=== PATIENT | female | born 1935 | race Caucasian/White ===

== ENCOUNTER 2016-10-17 13:31 | Inpatient (IN) | payer OTHER, BC ==
[~2016-10-17] VITALS: Ht 154.9 cm; Wt 64.8 kg
[~2016-10-17 13:31] MED LIST: ADVIN25/60 INH; ALBU0.08 INH; ASCO1CAP3 PO; BISA-16; BISA-16 PO; CALC500C3 PO; CALC500C70 PO; CHOL2000 PO; CHOLTAB11 PO; CRAN1CAP6 PO; CYAN500T PO; DEXT30TA7 PO; DEXTSYP41 PO; DOCU-94 PO; FERRTAB18 PO; FRS/40 PO; FURO20TA PO; HYDR-5688 PO; IRON20IN; LCTX PO; LORA0.5T12 PO; MAGN400T5 PO; MAGN400T6 PO; METH118C PO; MULTTAB58 PO; ONDA4TAB4 PO; POTA1CAP2 PO; PRAM0.129 PO; PRED-301 PO; PRLSR20 PO; PRX/40 PO; PYRI100T4 PO; RANI300C PO; SNK PO; TPRSR/25 PO; WARF2TAB8 PO
[2016-10-17] MEDS ORDERED: ALBINS/ INH (14:43)
[2016-10-17] MEDS ORDERED: ONDA4TAB46 PO (14:43)
[2016-10-17] MEDS ORDERED: RBTDMUDL5 PO (14:43)
[2016-10-17] MEDS ORDERED: ALBUT/IPRATROP 3MG/0.5MG NEB 3 ML VIAL INH STA ×2 (14:50→16:33)
[2016-10-17 15:25] LABS: BASO % 0.6 %; BASO ABS # 0.06 K/uL (0-0.2); COMPLETE YES; EOS % 1.5 %; IG% 0.6 %; LYMPH % 15.5 %; LYMPH ABS # 1.67 K/uL (1.2-3.4); MEAN CORPUSCULAR HEMOGLOBIN 31.6 pg (25-34); MEAN CORPUSCULAR HGB CONC 32.6 g/dl (32-36); MONO % 12.2 %; NEUT % 69.6 %; PLATELET COUNT 260 K/uL (130-400); RED BLOOD COUNT 4.02 M/uL (4.2-5.4)
[2016-10-17 15:38] LABS: INR 1.8 (0.9-1.1); PARTIAL THROMBOPLASTIN RATIO 1.4; PROTHROMBIN TIME (PATIENT) 19.3 SECONDS (9.0-12.0)
[2016-10-17 15:42] LABS: BUN/CREATININE RATIO 15.9 (10-20); CALCIUM 9.2 mg/dl (8.5-10.1); CREATININE 1.6 mg/dl (0.60-1.20); POTASSIUM 3.6 mmol/L (3.5-5.1)
[2016-10-17] MEDS ORDERED: SODIUM CHLORIDE 0.9% 500ML 500 ML IV STA (15:59)
--- NOTE | 2016-10-17 16:15 | DIAGNOSTIC IMAGING REPORT ---
CHEST 2 VIEWS ROUTINE HISTORY: Cough. COMPARISON: Chest 01/14/2016. FINDINGS: No pneumothorax. No pleural effusions. Large hiatus hernia. The heart is stable in size. Metallic stent within the heart. Healing/healed bilateral rib fractures. No evidence for pulmonary edema. Mild interstitial thickening which is likely chronic. Bibasilar linear densities favor subsegmental atelectasis. Thoracic and lumbar spine compression deformities remain unchanged. These are likely old. IMPRESSION: 1. No new focal lung consolidations to suggest pneumonia. 2. Bibasilar linear densities favor subsegmental atelectasis. 3. Large hiatus hernia, unchanged. Electronically signed by: Nirav Varma M.D. 10/17/2016 4:13 PM Dictated Date/Time: 10/17/2016 4:10 PM
[2016-10-17] MEDS ORDERED: METHYLPREDNISOLONE 125 MG VIAL IV STA (16:33)
[2016-10-17] MEDS ORDERED: OXYC-57 PO (18:18)
[2016-10-17] MEDS ORDERED: MIRT15TA PO (18:18)
[2016-10-17] MEDS ORDERED: HYDR200T5 PO (18:18)
[2016-10-17] MEDS ORDERED: ASPEC81 PO (18:18)
[2016-10-17 19:10] VITALS: BP 122/76; PULSE 81; TEMP 36.7; O2SAT 92; Ht 154.9 cm; Wt 64.8 kg
[2016-10-17] MEDS: SODIUM CHLORIDE 0.9% 1000ML 1,000 ML IV SCH (19:20)
[2016-10-17 20:34] VITALS: PULSE 83; O2SAT 92
[2016-10-17] MEDS: ALBUT/IPRATROP 3MG/0.5MG NEB 3 ML VIAL INH SCH (20:34)
[2016-10-17] MEDS ORDERED: WARFARIN SOD 3 MG TAB PO ONE (20:45)
--- NOTE | 2016-10-17 20:57 | History and Physical ---
History & Physical Date & Time of Service: Oct 17, 2016 at 20:41 Chief Complaint: Cough, Shortness of Breath Primary Care Physician: Myrna Inman M.D. History of Present Illness 81 year old female who presents to the ER with cough and shortness of breath. Patient reports she started getting sick about one week ago. She was seen by her PCP who ordered Augmentin. Patient did not start the Augmentin until yesterday however was taking amoxicillin in the mean time. Patient did not have any improvement in her symptoms and spoke with her PCP yesterday who ordered a steroid taper however patient never picked it up from the pharmacy. Patient reports a worsening productive cough. She reports she swallows the mucous. She has had worsening shortness of breath on exertion. She has been using her nebulizer without improvement in symptoms. She also notes rhinorrhea. She reports a low grade fever of 99. She denies chest pain. No lightheadedness, dizziness, diaphoresis, or syncope. She denies abdominal pain, nausea, vomiting , or diarrhea. No urinary symptoms. In the ER, patient's CXR is clear. She is saturating well on room air. She was given IV solumedrol and neb treatment and continues to have wheezing. Past Medical/Surgical History Medical Problems: (1) Anemia Status: Chronic (2) Angiectasia Permanent Comment: on colonoscopy 05/2013 Status: Chronic (3) Aortic stenosis Permanent Comment: moderately severe by echo December 2013 Status: Chronic (4) Basal cell carcinoma Permanent Comment: s/p MOHS surgery Status: Resolved (5) Benign hypertension Status: Chronic (6) CAD (coronary artery disease) Permanent Comment: s/p RCA stent 2011 Status: Chronic (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 Status: Chronic (8) CKD (chronic kidney disease) stage 3, GFR 30-59 ml/min Status: Chronic (9) Depression Status: Chronic (10) Diverticulosis Colon (W/O Ment Of Hemorrhage) Status: Chronic (11) Dyslipidemia Status: Chronic (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, 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 Status: Chronic (13) Gastroparesis Status: Chronic (14) GERD (gastroesophageal reflux disease) Status: Chronic (15) Hiatal hernia Status: Chronic (16) History of acute minda lesion Permanent Comment: 06/2013 Status: Chronic (17) History of endometrial cancer Permanent Comment: s/p radiation and total hysterectomy Status: Chronic (18) History of GI bleed Status: Chronic (19) History of pulmonary embolism Permanent Comment: x 2 Status: Chronic (20) IBS (irritable bowel syndrome) Status: Chronic (21) Osteoporosis Status: Chronic (22) Polyarthritis Permanent Comment: on chronic prednisone Status: Chronic (23) Recurrent UTI Status: Chronic Surgical Problems: (1) Hx of cystoscopy Status: Chronic (2) S/P left knee arthroscopy Status: Chronic (3) S/P TAVR (transcatheter aortic valve replacement) Permanent Comment: due to severe aortic stenosis Status: Chronic (4) Status post cataract extraction Status: Chronic (5) Status post coronary artery stent placement Status: Chronic (6) Status post hysterectomy Status: Chronic Family History Cancer Diabetes mellitus FH: cardiovascular disease MOTHER Gallbladder disease Hypertension Social History Smoking Status: Never Smoker Alcohol Use: none Immunizations History of Influenza Vaccine: Yes Influenza Vaccine Date: Apr 18, 2016 History of Tetanus Vaccine?: Yes Tetanus Immunization Date: Nov 27, 2008 History of Pneumococcal: Yes Pneumococcal Date: Apr 21, 2016 History of Hepatitis B Vaccine: Yes Multi-Drug Resistant Organisms History of MDRO: No Allergies Coded Allergies: Cefdinir (Unverified Allergy, Unknown, RASH, 07/16/16) Levofloxacin (Verified Allergy, Unknown, unknown, 10/17/16) Metoclopramide (Verified Adverse Reaction, Intermediate, TREMORS, 10/17/16) Home Medications Scheduled Ascorbic Acid (Vitamin C), 500 MG PO DAILY Aspirin (Aspirin EC Low Dose), 81 MG PO DAILY Bisacodyl (Dulcolax), 2 TAB PO DAILY Calcium/Vitamin D (Os-Ismael 500 Plus D), 1 TAB PO BIDM Cholecalciferol (Vitamin D3), 1 CAP PO DAILY Cranberry (Vaccinium Macrocarp (Cranberry), 200 MG PO DAILY Docusate Sodium (Colace), 1 CAP PO BID Fluticasone Prop/Salmeterol (Advair Diskus 250/50 60 Dose), 1 PUFF INH BID Furosemide (Lasix), 80 MG PO DAILY Hydroxychloroquine Sulfate (Plaquenil), 400 MG PO DAILY Iron-Vitamin C (Vitron-C), 1 TAB PO BID Magnesium Oxide (Mag-Ox), 400 MG PO DAILY Metoprolol Succinate (Metoprolol Succinate ER), 12.5 MG PO BID Mirtazapine (Remeron), 1 TAB PO HS Multiple Vitamin (Multivitamin), 1 TABLET PO DAILY Omeprazole (Prilosec), 20 MG PO BID Paroxetine (Paroxetine HCl), 40 MG PO DAILY Potassium Chloride (Potassium Chloride Er), 1 CAP PO DAILY Prednisone (Prednisone), 5 MG PO DAILY Senna (Senna Lax), 1 TAB PO BID Warfarin Sod (Jantoven), 2 MG PO DAILY Scheduled PRN Albuterol Sulf (Proventil 0.083% 2.5MG/3ML), 2.5 MG INH QID PRN for SOB/Wheezing Calcium Carbonate (Tums), 500 MG PO BID PRN for Heartburn Dextromethorphan-Guaifenesin (Mucinex Dm), 1 TAB PO Q12 PRN for Cough Dextromethorphan-Guaifenesin (Robitussin-Dm Syrup), 10 ML PO TID PRN for Cough Furosemide (Lasix), 1 TAB PO DAILY PRN for edema Lorazepam (Lorazepam), 0.5 MG PO HS PRN for Insomnia Ondansetron Hcl (Zofran), 4 MG PO Q6 PRN for Nausea Oxycodone/Acetaminophen 5MG/325MG (Percocet 5MG/325MG), 1 TABLET PO Q8H PRN for Pain Review of Systems 10 point review of systems was completed with the pertinent positives and negatives noted per the HPI Physical Exam Vital Signs Date Time Temp Pulse Resp B/P Pulse Ox O2 Delivery O2 Flow Rate FiO2 10/17/16 20:34 83 20 92 Room Air 10/17/16 18:51 36.5 91 20 125/68 92 10/17/16 18:46 91 20 125/68 92 Room Air 10/17/16 17:39 90 20 126/76 92 Room Air 10/17/16 17:00 92 20 121/67 92 Room Air 10/17/16 16:37 91 20 105/66 92 Room Air 10/17/16 13:45 36.5 93 20 102/67 92 Room Air General Appearance: no apparent distress Head: normocephalic Eyes: normal inspection ENT: hearing grossly normal Neck: supple, no JVD Respiratory/Chest: no respiratory distress, + decreased breath sounds, + rhonchi (anterior lung bello), + wheezing (faint, scattered, end expiratory) Cardiovascular: regular rate, rhythm, no edema, normal peripheral pulses Abdomen/GI: normal bowel sounds, non tender, soft Extremities/Musculoskelatal: normal inspection, no calf tenderness Neurologic/Psych: no motor/sensory deficits, alert, normal mood/affect, oriented x 3 Skin: normal color, warm/dry Diagnostics Laboratory Results Results Past 24 Hours Test 10/17/16 15:05 10/17/16 15:10 Range/Units White Blood Count 10.80 4.8-10.8 K/uL Red Blood Count 4.02 4.2-5.4 M/uL Hemoglobin 12.7 12.0-16.0 g/dL Hematocrit 39.0 37-47 % Mean Corpuscular Volume 97.0 80-100 fL Mean Corpuscular Hemoglobin 31.6 25-34 pg Mean Corpuscular Hemoglobin Concent 32.6 32-36 g/dl Platelet Count 260 130-400 K/uL Mean Platelet Volume 10.0 7.4-10.4 fL Neutrophils (%) (Auto) 69.6 % Lymphocytes (%) (Auto) 15.5 % Monocytes (%) (Auto) 12.2 % Eosinophils (%) (Auto) 1.5 % Basophils (%) (Auto) 0.6 % Neutrophils # (Auto) 7.53 1.4-6.5 K/uL Lymphocytes # (Auto) 1.67 1.2-3.4 K/uL Monocytes # (Auto) 1.32 0.11-0.59 K/uL Eosinophils # (Auto) 0.16 0-0.5 K/uL Basophils # (Auto) 0.06 0-0.2 K/uL RDW Standard Deviation 54.5 36.4-46.3 fL RDW Coefficient of Variation 15.3 11.5-14.5 % Immature Granulocyte % (Auto) 0.6 % Immature Granulocyte # (Auto) 0.06 0.00-0.02 K/uL Prothrombin Time 19.3 9.0-12.0 SECONDS Prothromb Time International Ratio 1.8 0.9-1.1 Activated Partial Thromboplast Time 35.7 21.0-31.0 SECONDS Partial Thromboplastin Ratio 1.4 Sodium Level 137 136-145 mmol/L Potassium Level 3.6 3.5-5.1 mmol/L Chloride Level 98 98-107 mmol/L Carbon Dioxide Level 26 21-32 mmol/L Anion Gap 13.0 3-11 mmol/L Blood Urea Nitrogen 25 7-18 mg/dl Creatinine 1.60 0.60-1.20 mg/dl Est Creatinine Clear Calc Drug Dose 23.0 ml/min Estimated GFR () 34.2 Estimated GFR (Non- 29.5 BUN/Creatinine Ratio 15.9 10-20 Random Glucose 97 70-99 mg/dl Calcium Level 9.2 8.5-10.1 mg/dl Troponin I 0.091 0-0.045 ng/ml Pro-B-Type Natriuretic Peptide 872 0-1800 pg/ml Influenza Type A Antigen Neg for Influ A NEG Influenza Type B Antigen Neg for Influ B NEG Microbiology Results 10/17/16 Blood Culture, Received Pending 10/17/16 Blood Culture, Received Pending Diagnostic Radiology CXR IMPRESSION: 1. No new focal lung consolidations to suggest pneumonia. 2. Bibasilar linear densities favor subsegmental atelectasis. 3. Large hiatus hernia, unchanged. Impression Assessment and Plan COPD EXACERBATION, LIKELY DUE TO BRONCHITIS - admit to tele - patient presenting with worsening shortness of breath and cough x 1 week; CXR clear in ER, saturating well on room air however continues to wheeze despite neb and IV solumedrol - around the clock IV steroids and nebs - empiric doxycycline - continue inhaled corticosteroid MYRTLE ON CKD STAGE III - baseline creat runs in the low 1's - creat noted to be 1.6 today - gentl IVF, hold diuretics ELEVATED TROPONIN, HX CAD - likely demand ischemic from COPD exacerbation - no reports of chest pain, EKG unchanged - will continue to cycle enzymes - continue ASA and beta hayden HX PE - INR 1.8 - continue Coumadin, dose according to INR HX SEVERE AORTIC STENOSIS, S/P TAVR - s/p TAVR 05/2016 - hx of CHF prior to TAVR - due to MYRTLE, holding diuretics and giving gentle IVF, monitor volume status closely POLYARTHRITIS - on Plaquenil and chronic prednisone - holding prednisone while on IV solumedrol DVT PROPHYLAXIS - on Coumadin CODE STATUS - Patient is a full code as per my discussion with her. DISPO - In my clinical judgment this beneficiary meets acute admission criteria, established by [facility], that includes being hospitalized through two midnights. I have seen, examined and discussed this patient with Lakisha Nicole and I agree with the above note. Patient presents with worsening SOB and productive cough. Vitals stable. PE: General- awake; alert; NAD Eyes- EOMI; no scleral icterus Neck- no stridor; trachea midline Lungs- diffuse expiratory wheezes Heart- RRR; no m/r/g Abdomen- soft; NTND; nBS Back- no gross abnormalities Extremities- no c/c/e; no deformity Neuro- no focal deficits Skin- no appreciable rash or bruise Labs, imaging and EKG reviewed. COPD exacerbation: Continue nebulizers and methylprednisolone. Empiric doxycycline. CXR negative for pneumonia. Check flu swab. MYRTLE: Hold diuretics and gentle IVF's. Elevated troponin: Likely demand in the setting of COPD exacerbation. Patient denies chest pain. No ischemic changes on EKG. Trend cardiac enzymes. Factor V deficiency: Bridge with Lovenox until INR therapeutic on warfarin. Agree with remainder of plan as outlined above. VTE Prophylaxis VTE Risk Assessment Done? Y/N: Yes Risk Level: Moderate
[2016-10-17] MEDS ORDERED: PANTOprazole SOD 40 MG TAB PO SCH (21:00)
[2016-10-17] MEDS ORDERED: DEXTROMETHORPHAN GUAIFENESIN PO SCH (21:00)
[2016-10-17] MEDS ORDERED: NON-FORMULARY MEDICATION (Iron-Vitamin C (Vitron-C) 1 TAB) PO SCH (21:00)
[2016-10-17] MEDS: DOXYCYCLINE IV 100 MG in DEXTROSE 5% 100ML 100 ML IV SCH (21:19)
[2016-10-17] MEDS: FLUTICASONE/SALMETEROL 250/50 (ADVAIR) 14 PUFF/1 INHALER INH SCH (21:22)
[2016-10-17] MEDS: GUAIFENESIN/DEXTROM SYRUP 100MG/10MG 5ML UDC PO PRN (21:23)
[2016-10-17] MEDS: SENNA 8.6 MG TAB PO SCH (21:24)
[2016-10-17] MEDS: METOPROLOL SUCC 25MG EXT REL TAB PO SCH (21:24)
[2016-10-17] MEDS: MIRTAZAPINE TAB 15 MG TAB PO SCH (21:24)
[2016-10-17] MEDS: PANTOprazole SOD 40 MG TAB PO SCH (21:25)
[2016-10-17] MEDS: DOCUSATE SODIUM 100 MG CAP PO SCH (21:25)
[2016-10-17] MEDS ORDERED: ENOXAPARIN 1 MG/KG SQ SCH (21:30)
--- NOTE | 2016-10-17 22:07 | EMERGENCY ROOM VISIT NOTE ---
History Report prepared by Henrique: Evan Chang Under the Supervision of: Dr. Jame Olmedo M.D. First contact with patient: 14:40 Chief Complaint: COUGH Stated Complaint: CHEST COLD AND COUGH Nursing Triage Summary: pt reports she was given antibiotic for cough did not pickup prescription on thursday started taking . was taking amoxicillin pcp wanted changed to augmentin. History of Present Illness The patient is an 81 year old female who presents to the Emergency Room with complaints of a worsening cough for the past week. The patient also complains of rhinorrhea, congestion, and shortness of breath. Her symptoms are worsened with exertion. The patient was started on Amoxicillin last week by her primary physician, and switched to Augmentin yesterday, as per son. The patient has also been taking Robitussin and Albuterol from pneumonia that she had last year. The patient was brought to the ED this morning by her caregiver for worsening symptoms. The caregiver noted wheezing and increased difficulty breathing. The patient's son is also concerned that she has not been eating for the past several days. The patient spoke with Dr. Inman on the phone this morning, who wanted the patient to have a Chest X-ray and to poultry picker Prednisone in addition to continuing her Augmentin. The patient notes that she had a low grade fever of 99 this morning, which is the highest her temperature has been. She denies chest pain, vomiting, abdominal pain, or other symptoms. The patient had a flu shot this year. She is on Coumadin 2 mg daily for a history of PEs. Source of History: patient, family (son) Onset: last week Position: other (respiratory) Quality: other (cough) Timing: worsening Modifying Factors (Worsening): exertion Associated Symptoms: + SOB, + fevers (low grade), No abdominal pain, No chest pain, No vomiting Review of Systems See HPI for pertinent positives & negatives. A total of 10 systems reviewed and were otherwise negative. 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 (13) Gastroparesis (14) GERD (gastroesophageal reflux disease) (15) Hiatal hernia (16) History of acute minda lesion (17) History of endometrial cancer (18) History of GI bleed (19) History of pulmonary embolism (20) IBS (irritable bowel syndrome) (21) Osteoporosis (22) Polyarthritis (23) Recurrent UTI Surgical Problems: (1) Hx of cystoscopy (2) S/P left knee arthroscopy (3) S/P TAVR (transcatheter aortic valve replacement) (4) Status post cataract extraction (5) Status post coronary artery stent placement (6) Status post hysterectomy Family History Cancer Diabetes mellitus FH: cardiovascular disease MOTHER Gallbladder disease Hypertension Social History Smoking Status: Never Smoker Alcohol Use: none Drug Use: none Marital Status: Housing Status: lives alone Occupation Status: retired Current/Historical Medications Scheduled Ascorbic Acid (Vitamin C), 500 MG PO DAILY Aspirin (Aspirin EC Low Dose), 81 MG PO DAILY Bisacodyl (Dulcolax), 2 TAB PO DAILY Calcium/Vitamin D (Os-Ismael 500 Plus D), 1 TAB PO BIDM Cholecalciferol (Vitamin D3), 1 CAP PO DAILY Cranberry (Vaccinium Macrocarp (Cranberry), 200 MG PO DAILY Docusate Sodium (Colace), 1 CAP PO BID Fluticasone Prop/Salmeterol (Advair Diskus 250/50 60 Dose), 1 PUFF INH BID Furosemide (Lasix), 80 MG PO DAILY Hydroxychloroquine Sulfate (Plaquenil), 400 MG PO DAILY Iron-Vitamin C (Vitron-C), 1 TAB PO BID Magnesium Oxide (Mag-Ox), 400 MG PO DAILY Metoprolol Succinate (Metoprolol Succinate ER), 12.5 MG PO BID Mirtazapine (Remeron), 1 TAB PO HS Multiple Vitamin (Multivitamin), 1 TABLET PO DAILY Omeprazole (Prilosec), 20 MG PO BID Paroxetine (Paroxetine HCl), 40 MG PO DAILY Potassium Chloride (Potassium Chloride Er), 1 CAP PO DAILY Prednisone (Prednisone), 5 MG PO DAILY Senna (Senna Lax), 1 TAB PO BID Warfarin Sod (Jantoven), 2 MG PO DAILY Scheduled PRN Albuterol Sulf (Proventil 0.083% 2.5MG/3ML), 2.5 MG INH QID PRN for SOB/Wheezing Calcium Carbonate (Tums), 500 MG PO BID PRN for Heartburn Dextromethorphan-Guaifenesin (Mucinex Dm), 1 TAB PO Q12 PRN for Cough Dextromethorphan-Guaifenesin (Robitussin-Dm Syrup), 10 ML PO TID PRN for Cough Furosemide (Lasix), 1 TAB PO DAILY PRN for edema Lorazepam (Lorazepam), 0.5 MG PO HS PRN for Insomnia Ondansetron Hcl (Zofran), 4 MG PO Q6 PRN for Nausea Oxycodone/Acetaminophen 5MG/325MG (Percocet 5MG/325MG), 1 TABLET PO Q8H PRN for Pain Allergies Coded Allergies: Cefdinir (Unverified Allergy, Unknown, RASH, 07/16/16) Levofloxacin (Verified Allergy, Unknown, unknown, 10/17/16) Metoclopramide (Verified Adverse Reaction, Intermediate, TREMORS, 10/17/16) Physical Exam Vital Signs Date Time Temp Pulse Resp B/P Pulse Ox O2 Delivery O2 Flow Rate FiO2 10/17/16 17:00 92 20 121/67 92 Room Air 10/17/16 16:37 91 20 105/66 92 Room Air 10/17/16 13:45 36.5 93 20 102/67 92 Room Air Physical Exam Constitutional: Vital signs reviewed. Eyes: Pupils are equal round reactive to light. Conjunctiva are noninjected. ENT: Pharynx is clear without erythema or exudate. Mucous membranes are moist. Neck supple without meningeal signs. Respiratory: Bilateral wheezing with crackles bibasilarly. Breath sounds are equal bilaterally. Cardiovascular: Regular rate and rhythm. No rubs or gallops. GI: Soft, nondistended and nontender. Bowel sounds are present. Musculoskeletal: No peripheral edema. No lower extremity tenderness. Integumentary: No cyanosis. Neurological: The patient is awake and alert. No focal deficits. Psychiatric: Normal affect. Medical Decision & Procedures ER Provider Diagnostic Interpretation: X-ray results as stated below per interpretation by me and the radiologist: CHEST 2 VIEWS ROUTINE HISTORY: Cough. COMPARISON: Chest 01/14/2016. FINDINGS: No pneumothorax. No pleural effusions. Large hiatus hernia. The heart is stable in size. Metallic stent within the heart. Healing/healed bilateral rib fractures. No evidence for pulmonary edema. Mild interstitial thickening which is likely chronic. Bibasilar linear densities favor subsegmental atelectasis. Thoracic and lumbar spine compression deformities remain unchanged. These are likely old. IMPRESSION: 1. No new focal lung consolidations to suggest pneumonia. 2. Bibasilar linear densities favor subsegmental atelectasis. 3. Large hiatus hernia, unchanged. Electronically signed by: Nirav Varma M.D. 10/17/2016 4:13 PM Dictated Date/Time: 10/17/2016 4:10 PM Laboratory Results 10/17/16 15:05 Red Blood Count 4.02, Mean Corpuscular Volume 97.0, Mean Corpuscular Hemoglobin 31.6, Mean Corpuscular Hemoglobin Concent 32.6, Mean Platelet Volume 10.0, Neutrophils (%) (Auto) 69.6, Lymphocytes (%) (Auto) 15.5, Monocytes (%) (Auto) 12.2, Eosinophils (%) (Auto) 1.5, Basophils (%) (Auto) 0.6, Neutrophils # (Auto ) 7.53, Lymphocytes # (Auto) 1.67, Monocytes # (Auto) 1.32, Eosinophils # (Auto ) 0.16, Basophils # (Auto) 0.06 10/17/16 15:05 Test 10/17/16 15:05 10/17/16 15:10 White Blood Count 10.80 K/uL (4.8-10.8) Red Blood Count 4.02 M/uL (4.2-5.4) Hemoglobin 12.7 g/dL (12.0-16.0) Hematocrit 39.0 % (37-47) Mean Corpuscular Volume 97.0 fL (80-100) Mean Corpuscular Hemoglobin 31.6 pg (25-34) Mean Corpuscular Hemoglobin Concent 32.6 g/dl (32-36) Platelet Count 260 K/uL (130-400) Mean Platelet Volume 10.0 fL (7.4-10.4) Neutrophils (%) (Auto) 69.6 % Lymphocytes (%) (Auto) 15.5 % Monocytes (%) (Auto) 12.2 % Eosinophils (%) (Auto) 1.5 % Basophils (%) (Auto) 0.6 % Neutrophils # (Auto) 7.53 K/uL (1.4-6.5) Lymphocytes # (Auto) 1.67 K/uL (1.2-3.4) Monocytes # (Auto) 1.32 K/uL (0.11-0.59) Eosinophils # (Auto) 0.16 K/uL (0-0.5) Basophils # (Auto) 0.06 K/uL (0-0.2) RDW Standard Deviation 54.5 fL (36.4-46.3) RDW Coefficient of Variation 15.3 % (11.5-14.5) Immature Granulocyte % (Auto) 0.6 % Immature Granulocyte # (Auto) 0.06 K/uL (0.00-0.02) Prothrombin Time 19.3 SECONDS (9.0-12.0) Prothromb Time International Ratio 1.8 (0.9-1.1) Activated Partial Thromboplast Time 35.7 SECONDS (21.0-31.0) Partial Thromboplastin Ratio 1.4 Anion Gap 13.0 mmol/L (3-11) Est Creatinine Clear Calc Drug Dose 23.0 ml/min Estimated GFR () 34.2 Estimated GFR (Non- 29.5 BUN/Creatinine Ratio 15.9 (10-20) Calcium Level 9.2 mg/dl (8.5-10.1) Pro-B-Type Natriuretic Peptide 872 pg/ml (0-1800) Influenza Type A Antigen Neg for Influ A (NEG) Influenza Type B Antigen Neg for Influ B (NEG) Laboratory results as reviewed by me. Medications Administered Medications (Trade) Dose Ordered Sig/Rosi Route Start Time Stop Time Status Last Admin Dose Admin Albuterol/ Ipratropium 3 ml 3 ml NOW STAT INH 10/17/16 14:50 10/17/16 14:52 DC 10/17/16 15:11 3 ML Sodium Chloride (Nss 500ml) 500 ml @ 999 mls/hr Q31M STAT IV 10/17/16 15:59 10/17/16 16:29 DC 10/17/16 16:36 999 MLS/HR Albuterol/ Ipratropium (Duoneb) 3 ml NOW STAT INH 10/17/16 16:33 10/17/16 16:34 DC 10/17/16 17:00 3 ML Methylprednisolone Sodium Succinate 125 mg 125 mg NOW STAT IV 10/17/16 16:33 10/17/16 16:34 DC 10/17/16 17:00 125 MG Sodium Chloride (Nss 1000ml) 1,000 ml @ 75 mls/hr [id number] IV 10/17/16 17:10 11/16/16 17:09 10/17/16 19:20 75 MLS/HR ECG Indication: SOB/dyspnea Rate (beats per minute): 81 Rhythm: normal sinus Findings: no ectopy, other (limited interpretation due to baseline artifact.) Change: Repeat EKG showed Normal Sinus Rhythm at 80, non-specific ST/T changes in leads V4-V6, no ectopy. ED Course 1443: The patient was evaluated in room B2. A complete history and physical exam was performed. 1450: DuoNeb 3 ml INH. 1559: NSS 500 ml @ 999 mls/hr. 1625: Updated the patient and her son and explained the test results. She still wheezing on exam. 1630: Discussed the case with Dr. Silverman, [facility] Hospitalist. The patient will be evaluated. 1633: Solu-Medrol 125 mg IV, DuoNeb 3 ml INH. Medical Decision This is an 81-year-old female who presents with shortness of breath and cough. Differential diagnosis includes pneumonia, pleural effusion, bronchitis, COPD, cardiac, anemia. I did perform a limited focused review of portions of the patient's old chart on the electronic medical record. The patient has had no recent pertinent visits to this hospital. I did evaluate the patient as noted above. IV access was established. The patient was placed on a continuous bulk picker. I did order and personally review the patient's 12-lead EKG and chest x-ray as described above. Her chest x-ray does not demonstrate a pneumonia. Her twelve-lead EKG does not show signs of acute ischemia. I did order and review the patient's blood work as noted in the electronic medical record. Her creatinine is slightly elevated at 1.6. She was given IV fluids with normal saline. She was also given a DuoNeb and Solu-Medrol IV. Her troponin is slightly bumped as well. I did reassess the patient. She has no complaints at this time. Her wheezing is still persistent. I did recommend hospitalization for further evaluation of her symptoms. She was given another DuoNeb. I did discuss case with the hospitalist and nurse case manager. Consults Time Called: 1620 Consulting Physician: Brody Vazquez Hospitalist. Returned Call: [phone]: Discussed the case with Brody Vazquez Hospitalist. The patient will be evaluated. Impression Primary Impression: Dyspnea Additional Impressions: Bronchitis with bronchospasm Elevated troponin Creatinine elevation Anticoagulated on Coumadin Scribe Attestation The scribe's documentation has been prepared under my direct and personally reviewed by me in its entirety. I confirm that the note above accurately reflects all work, treatment, procedures, and medical decision making performed by me. Departure Information Dispostion Being Evaluated By Hospitalist Referrals Myrna Inman M.D. (PCP) Patient Instructions My [facility] Problem Qualifiers Primary Impression: Dyspnea Dyspnea type: dyspnea on exertion Qualified Codes: R06.09 - Other forms of dyspnea
[2016-10-17] MEDS: ENOXAPARIN 60 MG/0.6 ML SYR SQ SCH (22:23)
[2016-10-17] MEDS: OXYCODONE/ACETAMINOPHEN 5-325 TAB PO PRN (23:06)
[2016-10-17 23:30] VITALS: BP 125/73; PULSE 85; TEMP 36.4; O2SAT 91
[2016-10-17 23:35] LABS: INFLUENZA A PCR Neg for Influ A (NEG); INFLUENZA B PCR Neg for Influ B (NEG)
[2016-10-18] VITALS (11 sets, daily range): BP systolic 97–160; BP diastolic 56–83; PULSE 69–92; TEMP 36.4–36.7; O2SAT 91–96
[2016-10-18] MEDS: METHYLPREDNISOLONE IV 40 MG in SYRINGE 0 ML IV SCH ×3 (01:26→17:17)
[2016-10-18] MEDS: ALBUT/IPRATROP 3MG/0.5MG NEB 3 ML VIAL INH SCH ×4 (01:50→19:25)
[2016-10-18 03:37] LABS: HEMATOCRIT 32.8 % (37-47); MEAN CELL VOLUME 96.2 fL (80-100); MEAN CORPUSCULAR HEMOGLOBIN 30.5 pg (25-34); MEAN CORPUSCULAR HGB CONC 31.7 g/dl (32-36); MEAN PLATELET VOLUME 9.8 fL (7.4-10.4); PLATELET COUNT 251 K/uL (130-400); RED BLOOD COUNT 3.41 M/uL (4.2-5.4)
[2016-10-18 03:57] LABS: BLOOD UREA NITROGEN 28 mg/dl (7-18); BUN/CREATININE RATIO 17.4 (10-20); CARBON DIOXIDE 26 mmol/L (21-32); CHLORIDE 101 mmol/L (98-107); GLUCOSE 210 mg/dl (70-99); POTASSIUM 3.5 mmol/L (3.5-5.1); SODIUM 138 mmol/L (136-145)
[2016-10-18] MEDS: MULTIVITAMIN TAB PO SCH (08:03)
[2016-10-18] MEDS: PAROXETINE 20 MG TAB PO SCH (08:03)
[2016-10-18] MEDS: ASCORBIC ACID 500 MG TAB PO SCH (08:03)
[2016-10-18] MEDS: HYDROXYCHLOROQUINE SULFATE 200 MG TAB PO SCH (08:03)
[2016-10-18] MEDS: CALCIUM 600MG + VIT D 400 IU TAB PO SCH ×2 (08:04→17:16)
[2016-10-18] MEDS: SENNA 8.6 MG TAB PO SCH ×2 (08:04→21:03)
[2016-10-18] MEDS: MAGNESIUM OXIDE 400 MG TAB PO SCH (08:04)
[2016-10-18] MEDS: DOCUSATE SODIUM 100 MG CAP PO SCH ×2 (08:05→21:02)
[2016-10-18] MEDS: BISACODYL 5 MG TABEC PO SCH (08:06)
[2016-10-18] MEDS: ASPIRIN 81 MG ECTAB PO SCH (08:06)
[2016-10-18] MEDS: METOPROLOL SUCC 25MG EXT REL TAB PO SCH ×2 (08:06→21:03)
[2016-10-18] MEDS: FLUTICASONE/SALMETEROL 250/50 (ADVAIR) 14 PUFF/1 INHALER INH SCH ×2 (08:07→21:00)
[2016-10-18] MEDS: SODIUM CHLORIDE 0.9% 1000ML 1,000 ML IV SCH (08:09)
[2016-10-18] MEDS: DOXYCYCLINE IV 100 MG in DEXTROSE 5% 100ML 100 ML IV SCH ×2 (08:09→21:08)
[2016-10-18] MEDS: PANTOprazole SOD 40 MG TAB PO SCH ×2 (08:10→21:01)
[2016-10-18] MEDS: GUAIFENESIN/DEXTROM SYRUP 100MG/10MG 5ML UDC PO PRN (08:31)
[2016-10-18] MEDS: CHOLECALCIFEROL 1000 INTER.UNIT TAB PO SCH (08:31)
[2016-10-18] MEDS ORDERED: CHOLECALCIFEROL 1000 INTER.UNIT TAB PO SCH (09:00)
[2016-10-18] MEDS ORDERED: FUROSEMIDE INJ 20 MG in SYRINGE 0 ML IV ONE (10:00)
--- NOTE | 2016-10-18 10:10 | Progress Note ---
Subjective Date of Service: Oct 18, 2016. Subjective Pt evaluation today including: conversation w/ patient, physical exam, lab review, review of studies, review of inpatient medication list Saw/examined the patient in room 229-1 She has shortness of breath with rhonchi and a productive cough +wheezing Denies chest pain +anxious Problem List Medical Problems: (1) Acute kidney injury Status: Acute (2) Anticoagulated on Coumadin Status: Acute (3) Bronchitis with bronchospasm Status: Acute (4) Creatinine elevation Status: Acute (5) Dehydration Status: Acute (6) Dyspnea Status: Acute (7) Elevated troponin Status: Acute (8) Hypotension Status: Acute (9) SBO (small bowel obstruction) Status: Acute (10) Sepsis due to urinary tract infection Status: Acute Review of Systems Constitutional: + weakness, No chills, No fever Respiratory: + cough, + shortness of breath, + sputum, + wheezing, No dyspnea at rest, No dyspnea on exertion, No hemoptysis Cardiac: No chest pain, No edema, No orthopnea, No palpitations Abdomen: No GI bleeding, No diarrhea, No nausea, No pain, No vomiting Musculoskeletal: + joint pain (chronic multiple joint pain, improved with steroids) Female : No dysuria, No urinary frequency Psychiatric: + anxiety, + insomnia (controlled with medications) Heme: No abnormal bleeding/bruising Medications Current Inpatient Medications Medications (Trade) Dose Ordered Sig/Rosi Route Start Time Stop Time Status Last Admin Dose Admin Sodium Chloride (Nss 1000ml) 1,000 ml @ 75 mls/hr [id number] IV 10/17/16 17:10 11/16/16 17:09 10/18/16 08:09 75 MLS/HR Acetaminophen (Tylenol Tab) 650 mg Q4H PRN PO 10/17/16 17:15 11/16/16 17:14 Ondansetron HCl (Zofran Inj) 4 mg Q6H PRN IV 10/17/16 17:15 11/16/16 17:14 Albuterol/ Ipratropium 3 ml 3 ml Q6R INH 10/17/16 21:00 11/16/16 20:59 10/18/16 07:00 3 ML Methylprednisolone Sodium Succinate 40 mg/Syringe 0.64 ml @ 1.5 mls/min Q8H IV 10/18/16 01:00 11/17/16 00:59 10/18/16 08:08 1.5 MLS/MIN Doxycycline Hyclate/Dextrose (Vibramycin IV/ D5 100ml) 110 ml @ 50 mls/hr Q12H IV 10/17/16 21:00 10/24/16 20:59 10/18/16 08:09 50 MLS/HR Aspirin (Ecotrin Tab) 81 mg DAILY PO 10/18/16 09:00 11/17/16 08:59 10/18/16 08:06 81 MG Bisacodyl (Dulcolax Tab) 10 mg DAILY PO 10/18/16 09:00 11/17/16 08:59 Calcium/Vitamin D (Caltrate Plus Tab) 1 tab BIDM PO 10/18/16 07:30 11/17/16 07:59 10/18/16 08:04 1 TAB Docusate Sodium (coLACE CAP) 100 mg BID PO 10/17/16 21:00 11/16/16 20:59 10/18/16 08:05 100 MG Salmeterol Xinafoate/ Fluticasone (Advair Diskus 250/50 Inh) 1 puff BID INH 10/17/16 21:00 11/16/16 20:59 10/18/16 08:07 1 PUFF Hydroxychloroquine Sulfate (Plaquenil Tab) 400 mg DAILY PO 10/18/16 09:00 11/17/16 08:59 10/18/16 08:03 400 MG Magnesium Oxide (Mag-Ox Tab) 400 mg DAILY PO 10/18/16 09:00 11/17/16 08:59 10/18/16 08:04 400 MG Metoprolol Succinate (Toprol Xl Tab) 12.5 mg BID PO 10/17/16 21:00 11/16/16 20:59 10/18/16 08:06 12.5 MG Mirtazapine (Remeron Tab) 15 mg HS PO 10/17/16 21:00 11/16/16 20:59 10/17/16 21:24 15 MG Multivitamins (Multivitamin Tab) 1 tab DAILY PO 10/18/16 09:00 11/17/16 08:59 10/18/16 08:03 1 TAB Oxycodone/ Acetaminophen (Percocet 5-325mg Tab) 1 tab Q8H PRN PO 10/17/16 18:30 10/31/16 18:29 10/17/16 23:06 1 TAB Senna (Senokot Tab) 8.6 mg BID PO 10/17/16 21:00 11/16/16 20:59 10/18/16 08:04 8.6 MG Ascorbic Acid (Vitamin C Tab) 500 mg DAILY PO 10/18/16 09:00 11/17/16 08:59 10/18/16 08:03 500 MG Guaifenesin/ Dextromethorphan (Robitussin-Dm Syrup) 10 ml TID PRN PO 10/17/16 18:30 11/16/16 18:29 10/18/16 08:31 10 ML Paroxetine HCl (pAXil TAB) 40 mg DAILY PO 10/18/16 09:00 11/17/16 08:59 10/18/16 08:03 40 MG Miscellaneous Information (Order Awaiting Action) 1 ea QS N/A 10/18/16 00:00 11/17/16 00:00 Pantoprazole Sodium (Protonix Tab) 40 mg BID PO 10/17/16 21:00 11/16/16 20:59 10/18/16 08:10 40 MG Enoxaparin Sodium (Lovenox Inj) 60 mg DAILY@2200 SQ 10/17/16 22:30 11/16/16 22:29 10/17/16 22:23 60 MG Cholecalciferol (Vitamin D Tab) 1,000 inter.unit DAILY PO 10/18/16 09:00 11/17/16 08:59 10/18/16 08:31 1,000 INTER.UNIT Lorazepam (Ativan Tab) 0.5 mg Q4 PRN PO 10/18/16 09:30 11/17/16 09:29 Warfarin Sodium 2 mg 2 mg DAILY@16 PO 10/18/16 16:00 11/17/16 15:59 UNV Furosemide/Syringe (Lasix Inj/ Syringe) 2 ml @ 4 mls/min 1000 ONCE IV 10/18/16 10:00 10/18/16 10:01 Furosemide (Lasix Tab) 80 mg DAILY PO 10/19/16 09:00 11/18/16 08:59 UNV Objective Vital Signs Date Time Temp Pulse Resp B/P Pulse Ox O2 Delivery O2 Flow Rate FiO2 10/18/16 08:01 86 124/64 10/18/16 08:00 Room Air 10/18/16 07:19 36.4 71 16 160/83 91 Room Air 10/18/16 07:00 73 16 95 Room Air 10/18/16 04:00 36.6 69 20 104/57 93 Room Air 10/18/16 04:00 Room Air 10/18/16 01:50 82 16 93 Room Air 10/18/16 00:00 Room Air 10/17/16 23:30 36.4 85 20 125/73 91 Room Air 10/17/16 20:34 83 20 92 Room Air 10/17/16 19:10 36.7 81 20 122/76 92 Room Air 10/17/16 18:51 36.5 91 20 125/68 92 10/17/16 18:46 91 20 125/68 92 Room Air 10/17/16 17:39 90 20 126/76 92 Room Air 10/17/16 17:00 92 20 121/67 92 Room Air 10/17/16 16:37 91 20 105/66 92 Room Air 10/17/16 13:45 36.5 93 20 102/67 92 Room Air Physical Exam General Appearance: no apparent distress Respiratory/Chest: no respiratory distress, no accessory muscle use, + rhonchi , + wheezing (diffusely) Cardiovascular: regular rate, rhythm, no edema, no murmur Abdomen: normal bowel sounds, non tender, soft Extremities: non-tender, normal inspection, no pedal edema, + pertinent finding (arthritic changes to finger joints) Neurologic/Psychiatric: no motor/sensory deficits, alert, oriented x 3, + pertinent finding (+anxiety) Skin: normal color Lymphatic: no adenopathy Laboratory Results Last 24 Hours Test 10/17/16 15:05 10/17/16 15:10 10/17/16 21:00 10/17/16 21:40 White Blood Count 10.80 K/uL Red Blood Count 4.02 M/uL Hemoglobin 12.7 g/dL Hematocrit 39.0 % Mean Corpuscular Volume 97.0 fL Mean Corpuscular Hemoglobin 31.6 pg Mean Corpuscular Hemoglobin Concent 32.6 g/dl Platelet Count 260 K/uL Mean Platelet Volume 10.0 fL Neutrophils (%) (Auto) 69.6 % Lymphocytes (%) (Auto) 15.5 % Monocytes (%) (Auto) 12.2 % Eosinophils (%) (Auto) 1.5 % Basophils (%) (Auto) 0.6 % Neutrophils # (Auto) 7.53 K/uL Lymphocytes # (Auto) 1.67 K/uL Monocytes # (Auto) 1.32 K/uL Eosinophils # (Auto) 0.16 K/uL Basophils # (Auto) 0.06 K/uL RDW Standard Deviation 54.5 fL RDW Coefficient of Variation 15.3 % Immature Granulocyte % (Auto) 0.6 % Immature Granulocyte # (Auto) 0.06 K/uL Prothrombin Time 19.3 SECONDS Prothromb Time International Ratio 1.8 Activated Partial Thromboplast Time 35.7 SECONDS Partial Thromboplastin Ratio 1.4 Sodium Level 137 mmol/L Potassium Level 3.6 mmol/L Chloride Level 98 mmol/L Carbon Dioxide Level 26 mmol/L Anion Gap 13.0 mmol/L Blood Urea Nitrogen 25 mg/dl Creatinine 1.60 mg/dl Est Creatinine Clear Calc Drug Dose 23.0 ml/min Estimated GFR () 34.2 Estimated GFR (Non- 29.5 BUN/Creatinine Ratio 15.9 Random Glucose 97 mg/dl Calcium Level 9.2 mg/dl Troponin I 0.091 ng/ml 0.060 ng/ml Pro-B-Type Natriuretic Peptide 872 pg/ml Influenza Type A Antigen Neg for Influ A Influenza Type B Antigen Neg for Influ B Creatine Kinase MB Ratio Creatine Kinase MB 1.3 ng/ml Test 10/17/16 21:45 10/18/16 03:00 10/18/16 03:10 Influenza Type A (RT-PCR) Neg for Influ A Influenza Type B (RT-PCR) Neg for Influ B Creatine Kinase MB Ratio White Blood Count 6.20 K/uL Red Blood Count 3.41 M/uL Hemoglobin 10.4 g/dL Hematocrit 32.8 % Mean Corpuscular Volume 96.2 fL Mean Corpuscular Hemoglobin 30.5 pg Mean Corpuscular Hemoglobin Concent 31.7 g/dl RDW Standard Deviation 53.4 fL RDW Coefficient of Variation 15.1 % Platelet Count 251 K/uL Mean Platelet Volume 9.8 fL Prothrombin Time 22.0 SECONDS Prothromb Time International Ratio 2.0 Sodium Level 138 mmol/L Potassium Level 3.5 mmol/L Chloride Level 101 mmol/L Carbon Dioxide Level 26 mmol/L Anion Gap 11.0 mmol/L Blood Urea Nitrogen 28 mg/dl Creatinine 1.60 mg/dl Est Creatinine Clear Calc Drug Dose 22.7 ml/min Estimated GFR () 34.2 Estimated GFR (Non- 29.5 BUN/Creatinine Ratio 17.4 Random Glucose 210 mg/dl Calcium Level 8.0 mg/dl Creatine Kinase MB 1.6 ng/ml Troponin I 0.049 ng/ml Assessment and Plan This is an 81 year old female with PMH of severe aortic valve stenosis s/p TAVR in May 2016, 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 Bronchitis patient presents with significant wheezing, productive cough, shortness of breath patient feels significant SOB overnight, given IV steroids, nebulizer treatments as needed will give one dose of IV Lasix and then add back her PO Lasix CXR shows no pneumonia, some atelectasis and a large hiatal hernia continue PPI BID continue doxycycline for possible underlying bacterial infection negative for flu Possibly a combination of CHF and upper respiratory infection Hx. 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 patient has had TAVR in May 2016 last echo in June 2016 on records showing no significant valvular disease patient is still taking high dose of Lasix Clinically "wet" sounding, so will restart this Acute Kidney Injury superimposed on CKD stage 3 baseline creatinine around 1.3 creat on admission was 1.6 monitor and adjust medications accordingly restarted diuretics, so will check creat daily Hx. of Recurrent PE on long-term Coumadin INR was 1.8 on admission INR today is 2.0, continue home dose of Coumadin and monitor CAD s/p stent continue home medications aspirin, b-hayden unsure of why she is not on a statin, possibly due to muscle pain Anxiety patient gets very anxious when she is short of breath added PO Ativan PRN - which is a home medication Anemia of Chronic Disease and Iron Deficiency monitor Hgb currently > 10 and stable Hiatal Hernia continue PPI BID Osteoarthritis continue plaquenil currently on IV steroids, taper until back to 5mg prednisone daily DVT ppx Coumadin FULL CODE
[2016-10-18] MEDS: LORAZEPAM 0.5 MG TAB PO PRN ×2 (13:15→21:03)
[2016-10-18] MEDS: OXYCODONE/ACETAMINOPHEN 5-325 TAB PO PRN (14:07)
[2016-10-18] MEDS ORDERED: FUROSEMIDE INJ 40 MG in SYRINGE 0 ML IV ONE (15:00)
[2016-10-18] MEDS: WARFARIN SOD 2 MG TAB PO SCH (17:17)
[2016-10-18] MEDS ORDERED: POTASSIUM CHLORIDE 20 MEQ/15 ML UDC PO ONE (21:00)
[2016-10-18] MEDS: MIRTAZAPINE TAB 15 MG TAB PO SCH (21:01)
[2016-10-18] MEDS: ENOXAPARIN 60 MG/0.6 ML SYR SQ SCH (21:04)
[2016-10-19] VITALS (14 sets, daily range): BP systolic 114–151; BP diastolic 62–80; PULSE 78–89; TEMP 36.2–36.7; O2SAT 92–98
[2016-10-19] MEDS: METHYLPREDNISOLONE IV 40 MG in SYRINGE 0 ML IV SCH (01:06)
[2016-10-19] MEDS: ALBUT/IPRATROP 3MG/0.5MG NEB 3 ML VIAL INH SCH ×5 (02:01→23:00)
[2016-10-19 05:54] LABS: HEMATOCRIT 35.3 % (37-47); MEAN CELL VOLUME 96.4 fL (80-100); MEAN CORPUSCULAR HEMOGLOBIN 30.9 pg (25-34); MEAN PLATELET VOLUME 10.5 fL (7.4-10.4); PLATELET COUNT 291 K/uL (130-400); RED BLOOD COUNT 3.66 M/uL (4.2-5.4); WHITE BLOOD COUNT 16.35 K/uL (4.8-10.8)
[2016-10-19 06:05] LABS: INR 3.2 (0.9-1.1); PROTHROMBIN TIME (PATIENT) 36.4 SECONDS (9.0-12.0)
[2016-10-19 06:23] LABS: BUN/CREATININE RATIO 22.8 (10-20); CALCIUM 8.3 mg/dl (8.5-10.1); CREATININE 1.4 mg/dl (0.60-1.20); MAGNESIUM 1.9 mg/dl (1.8-2.4); POTASSIUM 3.9 mmol/L (3.5-5.1)
[2016-10-19] MEDS: BISACODYL 5 MG TABEC PO SCH (07:53)
[2016-10-19] MEDS: DOCUSATE SODIUM 100 MG CAP PO SCH ×2 (07:53→20:46)
[2016-10-19] MEDS: ASPIRIN 81 MG ECTAB PO SCH (07:53)
[2016-10-19] MEDS: SENNA 8.6 MG TAB PO SCH ×2 (07:54→20:47)
[2016-10-19] MEDS: MAGNESIUM OXIDE 400 MG TAB PO SCH (07:54)
[2016-10-19] MEDS: FUROSEMIDE 80 MG TAB PO SCH (07:54)
[2016-10-19] MEDS: HYDROXYCHLOROQUINE SULFATE 200 MG TAB PO SCH (07:54)
[2016-10-19] MEDS: CHOLECALCIFEROL 1000 INTER.UNIT TAB PO SCH (07:54)
[2016-10-19] MEDS: ASCORBIC ACID 500 MG TAB PO SCH (07:54)
[2016-10-19] MEDS: PAROXETINE 20 MG TAB PO SCH (07:54)
[2016-10-19] MEDS: MULTIVITAMIN TAB PO SCH (07:54)
[2016-10-19] MEDS: CALCIUM 600MG + VIT D 400 IU TAB PO SCH ×2 (07:54→17:15)
[2016-10-19] MEDS: PANTOprazole SOD 40 MG TAB PO SCH ×2 (07:55→20:47)
[2016-10-19] MEDS: METOPROLOL SUCC 25MG EXT REL TAB PO SCH ×2 (07:55→20:51)
[2016-10-19] MEDS: FLUTICASONE/SALMETEROL 250/50 (ADVAIR) 14 PUFF/1 INHALER INH SCH ×2 (07:55→20:45)
[2016-10-19] MEDS: DOXYCYCLINE IV 100 MG in DEXTROSE 5% 100ML 100 ML IV SCH ×2 (08:00→20:48)
--- NOTE | 2016-10-19 09:48 | Progress Note ---
Subjective Date of Service: Oct 19, 2016. Subjective Pt evaluation today including: conversation w/ patient, physical exam, lab review, review of studies, review of inpatient medication list Saw/examined the patient in room 229-1 She's doing well; less shortness of breath today Marcelo catheter was inserted yesterday due to diuretics being started She slept well last night after being given Ativan No chest pain/palpitations Problem List Medical Problems: (1) Acute kidney injury Status: Acute (2) Anticoagulated on Coumadin Status: Acute (3) Bronchitis with bronchospasm Status: Acute (4) Creatinine elevation Status: Acute (5) Dehydration Status: Acute (6) Dyspnea Status: Acute (7) Elevated troponin Status: Acute (8) Hypotension Status: Acute (9) SBO (small bowel obstruction) Status: Acute (10) Sepsis due to urinary tract infection Status: Acute Review of Systems Constitutional: No chills, No fever, No weakness Respiratory: + cough, + shortness of breath, + sputum, No dyspnea at rest, No dyspnea on exertion, No hemoptysis, No wheezing Cardiac: No chest pain, No edema, No palpitations Abdomen: No diarrhea, No nausea, No pain, No vomiting Medications Current Inpatient Medications Medications (Trade) Dose Ordered Sig/Rosi Route Start Time Stop Time Status Last Admin Dose Admin Acetaminophen (Tylenol Tab) 650 mg Q4H PRN PO 10/17/16 17:15 11/16/16 17:14 Ondansetron HCl (Zofran Inj) 4 mg Q6H PRN IV 10/17/16 17:15 11/16/16 17:14 Albuterol/ Ipratropium 3 ml 3 ml Q6R INH 10/17/16 21:00 11/16/16 20:59 10/19/16 06:52 3 ML Doxycycline Hyclate/Dextrose (Vibramycin IV/ D5 100ml) 110 ml @ 50 mls/hr Q12H IV 10/17/16 21:00 10/24/16 20:59 10/19/16 08:00 50 MLS/HR Aspirin (Ecotrin Tab) 81 mg DAILY PO 10/18/16 09:00 11/17/16 08:59 10/19/16 07:53 81 MG Bisacodyl (Dulcolax Tab) 10 mg DAILY PO 10/18/16 09:00 11/17/16 08:59 10/19/16 07:53 10 MG Calcium/Vitamin D (Caltrate Plus Tab) 1 tab BIDM PO 10/18/16 07:30 11/17/16 07:59 10/19/16 07:54 1 TAB Docusate Sodium (coLACE CAP) 100 mg BID PO 10/17/16 21:00 11/16/16 20:59 10/19/16 07:53 100 MG Salmeterol Xinafoate/ Fluticasone (Advair Diskus 250/50 Inh) 1 puff BID INH 10/17/16 21:00 11/16/16 20:59 10/19/16 07:55 1 PUFF Hydroxychloroquine Sulfate (Plaquenil Tab) 400 mg DAILY PO 10/18/16 09:00 11/17/16 08:59 10/19/16 07:54 400 MG Magnesium Oxide (Mag-Ox Tab) 400 mg DAILY PO 10/18/16 09:00 11/17/16 08:59 10/19/16 07:54 400 MG Metoprolol Succinate (Toprol Xl Tab) 12.5 mg BID PO 10/17/16 21:00 11/16/16 20:59 10/19/16 07:55 12.5 MG Mirtazapine (Remeron Tab) 15 mg HS PO 10/17/16 21:00 11/16/16 20:59 10/18/16 21:01 15 MG Multivitamins (Multivitamin Tab) 1 tab DAILY PO 10/18/16 09:00 11/17/16 08:59 10/19/16 07:54 1 TAB Oxycodone/ Acetaminophen (Percocet 5-325mg Tab) 1 tab Q8H PRN PO 10/17/16 18:30 10/31/16 18:29 10/18/16 14:07 1 TAB Senna (Senokot Tab) 8.6 mg BID PO 10/17/16 21:00 11/16/16 20:59 10/19/16 07:54 8.6 MG Ascorbic Acid (Vitamin C Tab) 500 mg DAILY PO 10/18/16 09:00 11/17/16 08:59 10/19/16 07:54 500 MG Guaifenesin/ Dextromethorphan (Robitussin-Dm Syrup) 10 ml TID PRN PO 10/17/16 18:30 11/16/16 18:29 10/18/16 08:31 10 ML Paroxetine HCl (pAXil TAB) 40 mg DAILY PO 10/18/16 09:00 11/17/16 08:59 10/19/16 07:54 40 MG Miscellaneous Information (Order Awaiting Action) 1 ea QS N/A 10/18/16 00:00 11/17/16 00:00 Pantoprazole Sodium (Protonix Tab) 40 mg BID PO 10/17/16 21:00 11/16/16 20:59 10/19/16 07:55 40 MG Enoxaparin Sodium (Lovenox Inj) 60 mg DAILY@2200 SQ 10/17/16 22:30 11/16/16 22:29 10/18/16 21:04 60 MG Cholecalciferol (Vitamin D Tab) 1,000 inter.unit DAILY PO 10/18/16 09:00 11/17/16 08:59 10/19/16 07:54 1,000 INTER.UNIT Lorazepam (Ativan Tab) 0.5 mg Q4 PRN PO 10/18/16 09:30 11/17/16 09:29 10/18/16 21:03 0.5 MG Warfarin Sodium (Coumadin Tab) 2 mg DAILY@16 PO 10/18/16 16:00 11/17/16 15:59 10/18/16 17:17 2 MG Furosemide (Lasix Tab) 80 mg DAILY PO 10/19/16 09:00 11/18/16 08:59 10/19/16 07:54 80 MG Prednisone (PredniSONE TAB) 40 mg DAILY PO 10/19/16 09:00 11/18/16 08:59 10/19/16 08:26 40 MG Objective Vital Signs Date Time Temp Pulse Resp B/P Pulse Ox O2 Delivery O2 Flow Rate FiO2 10/19/16 08:00 Room Air 10/19/16 07:12 36.7 80 18 134/62 92 Room Air 10/19/16 06:52 87 16 94 Room Air 10/19/16 04:00 Room Air 10/19/16 03:26 36.4 81 20 138/72 96 Room Air 10/19/16 02:01 80 16 93 Room Air 10/19/16 00:00 Room Air 10/18/16 23:24 36.6 87 20 135/61 93 Room Air 10/18/16 20:00 Room Air 10/18/16 19:42 36.6 92 24 139/73 94 Room Air 10/18/16 19:25 82 16 93 Room Air 10/18/16 16:00 Room Air 10/18/16 15:08 36.5 88 22 111/58 96 Room Air 10/18/16 14:17 83 16 93 Room Air 10/18/16 12:00 Room Air 10/18/16 11:25 36.7 85 16 97/56 92 Room Air Physical Exam General Appearance: no apparent distress Respiratory/Chest: no respiratory distress, no accessory muscle use, + rhonchi Cardiovascular: regular rate, rhythm, no edema, no murmur Abdomen: normal bowel sounds, non tender, soft Extremities: non-tender, normal inspection, no pedal edema Neurologic/Psychiatric: no motor/sensory deficits, alert, normal mood/affect Laboratory Results Last 24 Hours Test 10/19/16 05:15 White Blood Count 16.35 K/uL Red Blood Count 3.66 M/uL Hemoglobin 11.3 g/dL Hematocrit 35.3 % Mean Corpuscular Volume 96.4 fL Mean Corpuscular Hemoglobin 30.9 pg Mean Corpuscular Hemoglobin Concent 32.0 g/dl RDW Standard Deviation 52.7 fL RDW Coefficient of Variation 14.9 % Platelet Count 291 K/uL Mean Platelet Volume 10.5 fL Prothrombin Time 36.4 SECONDS Prothromb Time International Ratio 3.2 Sodium Level 137 mmol/L Potassium Level 3.9 mmol/L Chloride Level 102 mmol/L Carbon Dioxide Level 24 mmol/L Anion Gap 11.0 mmol/L Blood Urea Nitrogen 32 mg/dl Creatinine 1.40 mg/dl Est Creatinine Clear Calc Drug Dose 25.9 ml/min Estimated GFR () 40.2 Estimated GFR (Non- 34.7 BUN/Creatinine Ratio 22.8 Random Glucose 145 mg/dl Calcium Level 8.3 mg/dl Magnesium Level 1.9 mg/dl Assessment and Plan This is an 81 year old female with PMH of severe aortic valve stenosis s/p TAVR in May 2016, 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 Bronchitis 10/19 seems like an upper respiratory/bronchitis type picture will taper steroids down to prednisone 40mg (takes 5mg chronically, so will taper down to that) continue doxycycline nebulization as needed continue PO Lasix continue Protonix BID 10/18 patient presents with significant wheezing, productive cough, shortness of breath patient feels significant SOB overnight, given IV steroids, nebulizer treatments as needed will give one dose of IV Lasix and then add back her PO Lasix CXR shows no pneumonia, some atelectasis and a large hiatal hernia continue PPI BID continue doxycycline for possible underlying bacterial infection negative for flu Possibly a combination of CHF and upper respiratory infection Hx. 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 of Recurrent PE 10/19 hold Coumadin INR = 3.2 goal of 2-3 10/18 on long-term Coumadin INR was 1.8 on admission INR today is 2.0, continue home dose of Coumadin and monitor CAD s/p stent continue home medications aspirin, b-hayden unsure of why she is not on a statin, possibly due to muscle pain Anxiety patient gets very anxious when she is short of breath added PO Ativan PRN - which is a home medication Anemia of Chronic Disease and Iron Deficiency 10/19 Hgb ~ 11 and stable 10/18 monitor Hgb currently > 10 and stable Hiatal Hernia continue PPI BID Osteoarthritis continue Plaquenil Prednisone 40mg, taper until back to 5mg prednisone daily DVT ppx Coumadin FULL CODE
[2016-10-19] MEDS: OXYCODONE/ACETAMINOPHEN 5-325 TAB PO PRN ×2 (13:39→22:51)
[2016-10-19] MEDS: LORAZEPAM 0.5 MG TAB PO PRN (20:46)
[2016-10-19] MEDS: MIRTAZAPINE TAB 15 MG TAB PO SCH (20:48)
[2016-10-19] MEDS: GUAIFENESIN/DEXTROM SYRUP 100MG/10MG 5ML UDC PO PRN (21:01)
[2016-10-20] VITALS (8 sets, daily range): BP systolic 112–147; BP diastolic 72–80; PULSE 72–90; TEMP 36.2–36.3; O2SAT 94–97
[2016-10-20] MEDS: ALBUT/IPRATROP 3MG/0.5MG NEB 3 ML VIAL INH SCH ×6 (01:48→22:22)
--- NOTE | 2016-10-20 07:14 | Clinical Documentation Query ---
KALEY Fajardo : CLINICAL DOCUMENTATION QUERIES QUERY 1 OF 2 Clinical documentation includes a diagnosis of: Acute Respiratory Failure. ROS includes: No dyspnea at rest or on exertion PE include: No respiratory distress, no accessory muscle use, RR generally 16-20, sPO2 on room air within normal limits. Due to stringent requirements by our coding department, multiple clinical indicators associated with this diagnosis must be present in order for this to be coded/captured within the medical record. If appropriate, please document 2 or more of the following clinical indicators in daily progress notes and the discharge summary. If you feel the diagnosis of acute respiratory failure was made in error, or do not agree with it, simply discontinue documentation thereof. Acute Respiratory Failure indicators include: * Respirations >28 * Air hunger * Use of accessory muscles of respiration * Inability to speak in full sentences * Cyanosis * Pulse ox <90% RA or <95% on O2 *pH <7.35 or >7.45 * pO2 < 60 mm Hg (or 10mm below COPD patient's baseline) * pCO2 >50mm Hg (or 10mm above COPD patient's baseline) * mechanical ventilation * Increased work of breathing * Tachypnea QUERY 2 OF 2 Patient is an 81 year old female admitted for the evaluation and treatment of a COPD exacerbation with bronchitis and MYRTLE on CKD stage 3. Documentation includes "CHF secondary to valvular disease". This is non-specific according to CMS coding guidelines. CHF is to be characterized by acuity and type as known. Echocardiogram from 11/16 demonstrated an LVEF of 65-70% and normal RV systolic function. As appropriate, please consider clarification as suggested below. Thank you. In your clinical opinion is this patient being managed for: ( ) Chronic diastolic/preserved EF congestive heart failure ( X ) Other explanation of clinical findings (Please Explain) - Valvular Heart Disease - I will no longer document "CHF" ( ) Unable to determine (Please Define) ( ) Need to Discuss ( ) Not Agree The medical record reflects the following clinical findings, treatment, and risk factors. Clinical Indicators: As above Treatment: Telemetry, I/O, daily weights, Lasix, Toprol XL Risk Factors: Age, hypertension, valvular disease Please clarify and document your clinical opinion in the progress notes and discharge summary. Terms such as "probable", "suspected", "likely", "questionable", "possible", or "still to be ruled out" are acceptable. IF IN AGREEMENT, YOU MUST DOCUMENT ABOVE DIAGNOSTIC STATEMENT IN DAILY PROGRESS NOTES AND DISCHARGE SUMMARY. This document is not part of the patient's record. Thank You, Adam Chow RN [phone]
[2016-10-20] MEDS: FLUTICASONE/SALMETEROL 250/50 (ADVAIR) 14 PUFF/1 INHALER INH SCH ×2 (08:10→21:15)
[2016-10-20] MEDS: METOPROLOL SUCC 25MG EXT REL TAB PO SCH ×2 (08:10→21:21)
[2016-10-20] MEDS: SENNA 8.6 MG TAB PO SCH ×2 (08:10→21:21)
[2016-10-20] MEDS: FUROSEMIDE 80 MG TAB PO SCH (08:11)
[2016-10-20] MEDS: CALCIUM 600MG + VIT D 400 IU TAB PO SCH ×2 (08:11→17:31)
[2016-10-20] MEDS: DOCUSATE SODIUM 100 MG CAP PO SCH ×2 (08:11→21:20)
[2016-10-20] MEDS: HYDROXYCHLOROQUINE SULFATE 200 MG TAB PO SCH (08:11)
[2016-10-20] MEDS: MAGNESIUM OXIDE 400 MG TAB PO SCH (08:11)
[2016-10-20] MEDS: BISACODYL 5 MG TABEC PO SCH (08:12)
[2016-10-20] MEDS: ASCORBIC ACID 500 MG TAB PO SCH (08:12)
[2016-10-20] MEDS: CHOLECALCIFEROL 1000 INTER.UNIT TAB PO SCH (08:12)
[2016-10-20] MEDS: PAROXETINE 20 MG TAB PO SCH (08:12)
[2016-10-20] MEDS: MULTIVITAMIN TAB PO SCH (08:12)
[2016-10-20] MEDS: PANTOprazole SOD 40 MG TAB PO SCH ×2 (08:13→21:20)
[2016-10-20] MEDS: ASPIRIN 81 MG ECTAB PO SCH (08:13)
[2016-10-20] MEDS: DOXYCYCLINE IV 100 MG in DEXTROSE 5% 100ML 100 ML IV SCH (08:19)
[2016-10-20] MEDS: GUAIFENESIN/DEXTROM SYRUP 100MG/10MG 5ML UDC PO PRN (11:39)
[2016-10-20] MEDS: LORAZEPAM 0.5 MG TAB PO PRN ×2 (11:39→21:31)
[2016-10-20] MEDS ORDERED: NURSING VERBAL MED ORDER ONE (11:45)
[2016-10-20] MEDS ORDERED: COUGH DROP (SUGAR FREE) LOZ 24 LOZ/1 BOX PO PRN (12:00)
[2016-10-20 13:10] LABS: INR 2.5 (0.9-1.1); PROTHROMBIN TIME (PATIENT) 27.4 SECONDS (9.0-12.0)
--- NOTE | 2016-10-20 13:26 | Progress Note ---
Subjective Date of Service: Oct 20, 2016. Subjective Pt evaluation today including: conversation w/ patient, physical exam, lab review, review of studies, review of inpatient medication list Saw/examined the patient in room 412 She is +anxious today, no significant shortness of breath +coughing, less sputum production Denies chest pain right eye redness Problem List Medical Problems: (1) Acute kidney injury Status: Acute (2) Anticoagulated on Coumadin Status: Acute (3) Bronchitis with bronchospasm Status: Acute (4) Creatinine elevation Status: Acute (5) Dehydration Status: Acute (6) Dyspnea Status: Acute (7) Elevated troponin Status: Acute (8) Hypotension Status: Acute (9) SBO (small bowel obstruction) Status: Acute (10) Sepsis due to urinary tract infection Status: Acute Review of Systems Constitutional: No chills, No fever Respiratory: + cough, + sputum, No dyspnea at rest, No dyspnea on exertion, No hemoptysis, No shortness of breath, No wheezing Cardiac: No chest pain, No edema, No palpitations Abdomen: No diarrhea, No nausea, No pain, No vomiting Musculoskeletal: + joint pain (left knee) Medications Current Inpatient Medications Medications (Trade) Dose Ordered Sig/Rosi Route Start Time Stop Time Status Last Admin Dose Admin Acetaminophen (Tylenol Tab) 650 mg Q4H PRN PO 10/17/16 17:15 11/16/16 17:14 Ondansetron HCl (Zofran Inj) 4 mg Q6H PRN IV 10/17/16 17:15 11/16/16 17:14 Albuterol/ Ipratropium 3 ml 3 ml Q6R INH 10/17/16 21:00 11/16/16 20:59 10/20/16 11:52 3 ML Doxycycline Hyclate/Dextrose (Vibramycin IV/ D5 100ml) 110 ml @ 50 mls/hr Q12H IV 10/17/16 21:00 10/24/16 20:59 10/20/16 08:19 50 MLS/HR Aspirin (Ecotrin Tab) 81 mg DAILY PO 10/18/16 09:00 11/17/16 08:59 10/20/16 08:13 81 MG Bisacodyl (Dulcolax Tab) 10 mg DAILY PO 10/18/16 09:00 11/17/16 08:59 10/20/16 08:12 10 MG Calcium/Vitamin D (Caltrate Plus Tab) 1 tab BIDM PO 10/18/16 07:30 11/17/16 07:59 10/20/16 08:11 1 TAB Docusate Sodium (coLACE CAP) 100 mg BID PO 10/17/16 21:00 11/16/16 20:59 10/20/16 08:11 100 MG Salmeterol Xinafoate/ Fluticasone (Advair Diskus 250/50 Inh) 1 puff BID INH 10/17/16 21:00 11/16/16 20:59 10/20/16 08:10 1 PUFF Hydroxychloroquine Sulfate (Plaquenil Tab) 400 mg DAILY PO 10/18/16 09:00 11/17/16 08:59 10/20/16 08:11 400 MG Magnesium Oxide (Mag-Ox Tab) 400 mg DAILY PO 10/18/16 09:00 11/17/16 08:59 10/20/16 08:11 400 MG Metoprolol Succinate (Toprol Xl Tab) 12.5 mg BID PO 10/17/16 21:00 11/16/16 20:59 10/20/16 08:10 12.5 MG Mirtazapine (Remeron Tab) 15 mg HS PO 10/17/16 21:00 11/16/16 20:59 10/19/16 20:48 15 MG Multivitamins (Multivitamin Tab) 1 tab DAILY PO 10/18/16 09:00 11/17/16 08:59 10/20/16 08:12 1 TAB Oxycodone/ Acetaminophen (Percocet 5-325mg Tab) 1 tab Q8H PRN PO 10/17/16 18:30 10/31/16 18:29 10/19/16 22:51 1 TAB Senna (Senokot Tab) 8.6 mg BID PO 10/17/16 21:00 11/16/16 20:59 10/20/16 08:10 8.6 MG Ascorbic Acid (Vitamin C Tab) 500 mg DAILY PO 10/18/16 09:00 11/17/16 08:59 10/20/16 08:12 500 MG Guaifenesin/ Dextromethorphan (Robitussin-Dm Syrup) 10 ml TID PRN PO 10/17/16 18:30 11/16/16 18:29 10/20/16 11:39 10 ML Paroxetine HCl (pAXil TAB) 40 mg DAILY PO 10/18/16 09:00 11/17/16 08:59 10/20/16 08:12 40 MG Miscellaneous Information (Order Awaiting Action) 1 ea QS N/A 10/18/16 00:00 11/17/16 00:00 Pantoprazole Sodium (Protonix Tab) 40 mg BID PO 10/17/16 21:00 11/16/16 20:59 10/20/16 08:13 40 MG Cholecalciferol (Vitamin D Tab) 1,000 inter.unit DAILY PO 10/18/16 09:00 11/17/16 08:59 10/20/16 08:12 1,000 INTER.UNIT Lorazepam (Ativan Tab) 0.5 mg Q4 PRN PO 10/18/16 09:30 11/17/16 09:29 10/20/16 11:39 0.5 MG Warfarin Sodium (Coumadin Tab) 2 mg DAILY@16 PO 10/18/16 16:00 11/17/16 15:59 Future hold 10/18/16 17:17 2 MG Furosemide (Lasix Tab) 80 mg DAILY PO 10/19/16 09:00 11/18/16 08:59 10/20/16 08:11 80 MG Prednisone 40 mg DAILY PO 10/19/16 09:00 11/18/16 08:59 10/20/16 08:11 40 MG Dexamethasone/ Nystatin/ Diphenhydramine HCl/Sucrose/ Microcrystalline Cellulose/Barcode (Decadron Conc Soln/Mycostatin Susp/Benadryl Syrup/Ora-Sweet Syrup/Ora-Plus Susp. Vehicle) BID PO 10/20/16 20:00 11/19/16 19:59 Menthol (Nice Jonnie) 1 jonnie PRN PRN PO 10/20/16 12:00 11/19/16 11:59 Objective Vital Signs Date Time Temp Pulse Resp B/P Pulse Ox O2 Delivery O2 Flow Rate FiO2 10/20/16 11:52 76 18 94 Room Air 10/20/16 08:00 Room Air 10/20/16 07:33 82 18 95 Room Air 10/20/16 07:09 36.3 80 20 147/80 97 Room Air 10/20/16 00:30 Room Air 10/19/16 23:26 36.2 81 20 132/77 98 Room Air 10/19/16 23:00 89 18 93 Room Air 10/19/16 20:50 89 151/80 10/19/16 18:55 78 18 94 Room Air 10/19/16 16:00 95 Room Air 10/19/16 15:39 36.3 82 20 119/73 95 Room Air 10/19/16 15:17 36.6 82 16 96 10/19/16 14:02 82 16 96 Room Air Physical Exam General Appearance: no apparent distress Respiratory/Chest: lungs clear, normal breath sounds, no respiratory distress, no accessory muscle use Cardiovascular: regular rate, rhythm, no edema, no murmur Extremities: normal inspection, no pedal edema Neurologic/Psychiatric: + pertinent finding (+anxious) Laboratory Results Last 24 Hours Test 10/20/16 12:33 Prothrombin Time 27.4 SECONDS Prothromb Time International Ratio 2.5 Assessment and Plan This is an 81 year old female with PMH of severe aortic valve stenosis s/p TAVR in May 2016, 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 Bronchitis 10/20 continue prednisone 40mg switch IV doxy to oral doxycycline PO Lasix Protonix BID 10/19 seems like an upper respiratory/bronchitis type picture will taper steroids down to prednisone 40mg (takes 5mg chronically, so will taper down to that) continue doxycycline nebulization as needed continue PO Lasix continue Protonix BID 10/18 patient presents with significant wheezing, productive cough, shortness of breath patient feels significant SOB overnight, given IV steroids, nebulizer treatments as needed will give one dose of IV Lasix and then add back her PO Lasix CXR shows no pneumonia, some atelectasis and a large hiatal hernia continue PPI BID continue doxycycline for possible underlying bacterial infection negative for flu Possibly a combination of CHF and upper respiratory infection Hx. 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 of Recurrent PE 10/20 INR = 2.5 continue Coumadin 10/19 hold Coumadin INR = 3.2 goal of 2-3 10/18 on long-term Coumadin INR was 1.8 on admission INR today is 2.0, continue home dose of Coumadin and monitor CAD s/p stent continue home medications aspirin, b-hayden unsure of why she is not on a statin, possibly due to muscle pain Anxiety patient gets very anxious when she is short of breath added PO Ativan PRN - which is a home medication Anemia of Chronic Disease and Iron Deficiency 10/19 Hgb ~ 11 and stable 10/18 monitor Hgb currently > 10 and stable Hiatal Hernia continue PPI BID Osteoarthritis continue Plaquenil Prednisone 40mg, taper until back to 5mg prednisone daily DVT ppx Coumadin FULL CODE
[2016-10-20] MEDS: WARFARIN SOD 2 MG TAB PO SCH (16:08)
[2016-10-20] MEDS ORDERED: MAGIC MOUTHWASH PO SCH (20:00)
[2016-10-20] MEDS: MIRTAZAPINE TAB 15 MG TAB PO SCH (21:21)
[2016-10-20] MEDS: DEXAMETHASONE CONC SOLN 3.75 MG, NYSTATIN SUSP 30 ML, DiphenhydrAMINE HCL SYRUP 300 MG,... PO SCH ×5 (21:23)
[2016-10-20] MEDS: DOXYCYCLINE HYCLATE 100 MG CAP PO SCH (21:58)
[2016-10-21] MEDS: ALBUT/IPRATROP 3MG/0.5MG NEB 3 ML VIAL INH SCH ×4 (01:55→19:15)
[2016-10-21 05:48] LABS: HEMATOCRIT 30.1 % (37-47); MEAN CELL VOLUME 94.7 fL (80-100); MEAN CORPUSCULAR HEMOGLOBIN 31.1 pg (25-34); MEAN CORPUSCULAR HGB CONC 32.9 g/dl (32-36); MEAN PLATELET VOLUME 10.1 fL (7.4-10.4); PLATELET COUNT 297 K/uL (130-400); RED BLOOD COUNT 3.18 M/uL (4.2-5.4); WHITE BLOOD COUNT 15.06 K/uL (4.8-10.8)
[2016-10-21 05:58] LABS: INR 2.2 (0.9-1.1); PROTHROMBIN TIME (PATIENT) 24.3 SECONDS (9.0-12.0)
[2016-10-21 06:24] LABS: BUN/CREATININE RATIO 30.9 (10-20); CALCIUM 8.8 mg/dl (8.5-10.1); CREATININE 1.5 mg/dl (0.60-1.20); MAGNESIUM 1.7 mg/dl (1.8-2.4); POTASSIUM 3.9 mmol/L (3.5-5.1)
[2016-10-21 07:33] VITALS: PULSE 88; O2SAT 92
[2016-10-21 07:58] VITALS: BP 177/74; PULSE 84; TEMP 36.4; O2SAT 96
[2016-10-21] MEDS ORDERED: POLYETHYLENE (MIRALAX) 17 GM PACK PO SCH (08:00)
--- NOTE | 2016-10-21 08:30 | Progress Note ---
Subjective Date of Service: Oct 21, 2016. Subjective Pt evaluation today including: conversation w/ patient, physical exam, lab review, review of studies, review of inpatient medication list Saw/examined the patient in room 412 Has some chest congestion with cough, though this is improving Missed a few sessions of cardiac rehab and she is concerned about that No chest pain, no palpitations Problem List Medical Problems: (1) Acute kidney injury Status: Acute (2) Anticoagulated on Coumadin Status: Acute (3) Bronchitis with bronchospasm Status: Acute (4) Creatinine elevation Status: Acute (5) Dehydration Status: Acute (6) Dyspnea Status: Acute (7) Elevated troponin Status: Acute (8) Hypotension Status: Acute (9) SBO (small bowel obstruction) Status: Acute (10) Sepsis due to urinary tract infection Status: Acute Review of Systems Constitutional: No chills, No fever Respiratory: + cough, + sputum, No dyspnea at rest, No dyspnea on exertion, No hemoptysis, No shortness of breath, No wheezing Cardiac: No chest pain, No edema, No palpitations Abdomen: No diarrhea, No nausea, No pain, No vomiting Medications Current Inpatient Medications Medications (Trade) Dose Ordered Sig/Rosi Route Start Time Stop Time Status Last Admin Dose Admin Acetaminophen (Tylenol Tab) 650 mg Q4H PRN PO 10/17/16 17:15 11/16/16 17:14 Ondansetron HCl (Zofran Inj) 4 mg Q6H PRN IV 10/17/16 17:15 11/16/16 17:14 Albuterol/ Ipratropium (Duoneb) 3 ml Q6R INH 10/17/16 21:00 11/16/16 20:59 10/21/16 07:33 3 ML Aspirin (Ecotrin Tab) 81 mg DAILY PO 10/18/16 09:00 11/17/16 08:59 10/20/16 08:13 81 MG Bisacodyl (Dulcolax Tab) 10 mg DAILY PO 10/18/16 09:00 11/17/16 08:59 10/20/16 08:12 10 MG Calcium/Vitamin D (Caltrate Plus Tab) 1 tab BIDM PO 10/18/16 07:30 11/17/16 07:59 10/20/16 17:31 1 TAB Docusate Sodium (coLACE CAP) 100 mg BID PO 10/17/16 21:00 11/16/16 20:59 10/20/16 21:20 100 MG Salmeterol Xinafoate/ Fluticasone (Advair Diskus 250/50 Inh) 1 puff BID INH 10/17/16 21:00 11/16/16 20:59 10/20/16 21:15 1 PUFF Hydroxychloroquine Sulfate (Plaquenil Tab) 400 mg DAILY PO 10/18/16 09:00 11/17/16 08:59 10/20/16 08:11 400 MG Magnesium Oxide (Mag-Ox Tab) 400 mg DAILY PO 10/18/16 09:00 11/17/16 08:59 10/20/16 08:11 400 MG Metoprolol Succinate (Toprol Xl Tab) 12.5 mg BID PO 10/17/16 21:00 11/16/16 20:59 10/20/16 21:21 12.5 MG Mirtazapine (Remeron Tab) 15 mg HS PO 10/17/16 21:00 11/16/16 20:59 10/20/16 21:21 15 MG Multivitamins (Multivitamin Tab) 1 tab DAILY PO 10/18/16 09:00 11/17/16 08:59 10/20/16 08:12 1 TAB Oxycodone/ Acetaminophen (Percocet 5-325mg Tab) 1 tab Q8H PRN PO 10/17/16 18:30 10/31/16 18:29 10/19/16 22:51 1 TAB Senna (Senokot Tab) 8.6 mg BID PO 10/17/16 21:00 11/16/16 20:59 10/20/16 21:21 8.6 MG Ascorbic Acid (Vitamin C Tab) 500 mg DAILY PO 10/18/16 09:00 11/17/16 08:59 10/20/16 08:12 500 MG Guaifenesin/ Dextromethorphan (Robitussin-Dm Syrup) 10 ml TID PRN PO 10/17/16 18:30 11/16/16 18:29 10/20/16 11:39 10 ML Paroxetine HCl (pAXil TAB) 40 mg DAILY PO 10/18/16 09:00 11/17/16 08:59 10/20/16 08:12 40 MG Miscellaneous Information (Order Awaiting Action) 1 ea QS N/A 10/18/16 00:00 11/17/16 00:00 Pantoprazole Sodium (Protonix Tab) 40 mg BID PO 10/17/16 21:00 11/16/16 20:59 10/20/16 21:20 40 MG Cholecalciferol (Vitamin D Tab) 1,000 inter.unit DAILY PO 10/18/16 09:00 11/17/16 08:59 10/20/16 08:12 1,000 INTER.UNIT Lorazepam (Ativan Tab) 0.5 mg Q4 PRN PO 10/18/16 09:30 11/17/16 09:29 10/20/16 21:31 0.5 MG Warfarin Sodium (Coumadin Tab) 2 mg DAILY@16 PO 10/18/16 16:00 11/17/16 15:59 Future hold 10/20/16 16:08 2 MG Furosemide (Lasix Tab) 80 mg DAILY PO 10/19/16 09:00 11/18/16 08:59 10/20/16 08:11 80 MG Prednisone 40 mg DAILY PO 10/19/16 09:00 11/18/16 08:59 10/20/16 08:11 40 MG Dexamethasone/ Nystatin/ Diphenhydramine HCl/Sucrose/ Microcrystalline Cellulose/Barcode (Decadron Conc Soln/Mycostatin Susp/Benadryl Syrup/Ora-Sweet Syrup/Ora-Plus Susp. Vehicle) BID PO 10/20/16 20:00 11/19/16 19:59 10/20/16 21:23 5 ML Menthol (Nice Jonnie) 1 jonnie PRN PRN PO 10/20/16 12:00 11/19/16 11:59 Doxycycline Hyclate (Vibramycin Cap) 100 mg BID PO 10/20/16 20:00 10/24/16 19:59 10/20/16 21:58 100 MG Polyethylene (Miralax Powder Packet) 17 gm DAILY PO 10/21/16 08:00 11/20/16 07:59 Objective Vital Signs Date Time Temp Pulse Resp B/P Pulse Ox O2 Delivery O2 Flow Rate FiO2 10/21/16 07:58 36.4 84 16 177/74 96 Room Air 10/21/16 07:33 88 18 92 Room Air 10/21/16 00:00 Room Air 10/20/16 22:41 36.2 90 16 118/78 94 Room Air 10/20/16 22:22 89 18 94 Room Air 10/20/16 19:48 81 18 96 Room Air 10/20/16 16:00 Room Air 10/20/16 14:55 36.2 86 18 112/72 96 Room Air 10/20/16 14:03 72 18 95 Room Air 10/20/16 11:52 76 18 94 Room Air Physical Exam General Appearance: no apparent distress Respiratory/Chest: no respiratory distress, no accessory muscle use, + rhonchi (improving coarse breath sounds) Cardiovascular: regular rate, rhythm, no edema, no murmur Abdomen: normal bowel sounds, non tender, soft Extremities: non-tender, normal inspection, no pedal edema Neurologic/Psychiatric: no motor/sensory deficits, alert, normal mood/affect Laboratory Results Last 24 Hours Test 10/20/16 12:33 10/21/16 05:05 Prothrombin Time 27.4 SECONDS 24.3 SECONDS Prothromb Time International Ratio 2.5 2.2 White Blood Count 15.06 K/uL Red Blood Count 3.18 M/uL Hemoglobin 9.9 g/dL Hematocrit 30.1 % Mean Corpuscular Volume 94.7 fL Mean Corpuscular Hemoglobin 31.1 pg Mean Corpuscular Hemoglobin Concent 32.9 g/dl RDW Standard Deviation 53.3 fL RDW Coefficient of Variation 15.3 % Platelet Count 297 K/uL Mean Platelet Volume 10.1 fL Nucleated RBC Absolute Count (auto) 0.04 K/uL Nucleated Red Blood Cells % 0.3 % Sodium Level 142 mmol/L Potassium Level 3.9 mmol/L Chloride Level 105 mmol/L Carbon Dioxide Level 26 mmol/L Anion Gap 11.0 mmol/L Blood Urea Nitrogen 46 mg/dl Creatinine 1.50 mg/dl Est Creatinine Clear Calc Drug Dose 24.5 ml/min Estimated GFR () 37.0 Estimated GFR (Non- 31.9 BUN/Creatinine Ratio 30.9 Random Glucose 93 mg/dl Calcium Level 8.8 mg/dl Magnesium Level 1.7 mg/dl Assessment and Plan This is an 81 year old female with PMH of severe aortic valve stenosis s/p TAVR in May 2016, 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 Bronchitis 10/21 will continue doxycycline for a total of 10 days prednisone taper from 40mg to 5mg (quick taper) continue home dose of Lasix continue Protonix BID 10/20 continue prednisone 40mg switch IV doxy to oral doxycycline PO Lasix Protonix BID 10/19 seems like an upper respiratory/bronchitis type picture will taper steroids down to prednisone 40mg (takes 5mg chronically, so will taper down to that) continue doxycycline nebulization as needed continue PO Lasix continue Protonix BID 10/18 patient presents with significant wheezing, productive cough, shortness of breath patient feels significant SOB overnight, given IV steroids, nebulizer treatments as needed will give one dose of IV Lasix and then add back her PO Lasix CXR shows no pneumonia, some atelectasis and a large hiatal hernia continue PPI BID continue doxycycline for possible underlying bacterial infection negative for flu Possibly a combination of CHF and upper respiratory infection Hx. 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 of Recurrent PE 10/20 INR = 2.5 continue Coumadin 10/19 hold Coumadin INR = 3.2 goal of 2-3 10/18 on long-term Coumadin INR was 1.8 on admission INR today is 2.0, continue home dose of Coumadin and monitor CAD s/p stent continue home medications aspirin, b-hayden unsure of why she is not on a statin, possibly due to muscle pain Anxiety patient gets very anxious when she is short of breath added PO Ativan PRN - which is a home medication Anemia of Chronic Disease and Iron Deficiency 10/19 Hgb ~ 11 and stable 10/18 monitor Hgb currently > 10 and stable Hiatal Hernia continue PPI BID Osteoarthritis continue Plaquenil Prednisone 40mg, taper until back to 5mg prednisone daily DVT ppx Coumadin FULL CODE
[2016-10-21] MEDS ORDERED: PANT40TA PO (08:33)
[2016-10-21] MEDS ORDERED: DXY100 PO (08:33)
[2016-10-21] MEDS ORDERED: PRED10TA PO (08:33)
--- NOTE | 2016-10-21 08:36 | Discharge Instructions ---
Discharge Instructions Date of Service Oct 21, 2016. Admission Reason for Admission: Copd Exacerbation Discharge Discharge Diagnosis / Problem: Asthma Exacerbation, Acute Bronchitis Discharge Goals Goal(s): Decrease discomfort, Improve function, Diagnostic testing, Therapeutic intervention Activity Recommendations Activity Limitations: resume your previous activity . Instructions / Follow-Up Instructions / Follow-Up Please follow-up with Dr. Inman on October 31 @ 10:50AM * You will be prescribed vancomycin for C. diff - take this four times a day for four more days * You will be prescribed prednisone - take 20mg for 1 day, take 10mg x 3 days, then go back to taking 5mg daily * Changed Prilosec to Protonix - You may need Protonix twice a day because of your large hiatal hernia * Please continue cardiac rehab starting next week * PCP should recheck blood work for anemia and kidney function Current Hospital Diet Patient's current hospital diet: AHA Diet (Heart Healthy) Discharge Diet Recommended Diet: AHA Diet (Heart Healthy) Pending Studies Studies pending at discharge: no Medical Emergencies . Who to Call and When: Medical Emergencies: If at any time you feel your situation is an emergency, please call 911 immediately. . Non-Emergent Contact Non-Emergency issues call your: Primary Care Provider . . "Provider Documentation" section prepared by Selin Frederick. VTE Core Measure Inpt VTE Proph given/why not?: Warfarin (Coumadin)
--- NOTE | 2016-10-21 08:38 | Discharge Summary ---
Discharge Summary Date of Service Oct 21, 2016. Discharge Summary Admission Date: Oct 17, 2016 at 17:12 Discharge Date: Oct 21, 2016 Discharge Disposition: Home with services Principal Diagnosis: Asthma Exacerbation Acute Bronchitis Large Hiatal Hernia - GERD Medication Reconciliation New Medications: Prednisone Tab (Prednisone) 10 Mg Tab 10 MG PO DAILY, #20 TAB Doxycycline Hyclate (Doxycycline Hyclate) 100 Mg Cap 100 MG PO BID for 7 Days, #14 CAP Changed Medications: Pantoprazole Sodium (Protonix) 40 Mg Tab 1 TAB PO DAILY for 30 Days, #30 TAB 5 Refills (Changed from: Omeprazole ( Prilosec) 20 Mg Capcr 20 Mg PO BID) Continued Medications: Albuterol Sulf (Proventil 0.083% 2.5MG/3ML) 2.5 Mg/3 Ml Nebu 2.5 MG INH QID PRN for SOB/Wheezing, EA Ascorbic Acid (Vitamin C) 500 Mg Cap 500 MG PO DAILY Aspirin (Aspirin EC Low Dose) 81 Mg Ectab 81 MG PO DAILY Bisacodyl (Dulcolax) 5 Mg Tab 2 TAB PO DAILY for 1 Day, #2 TAB Calcium Carbonate (Tums) 500 Mg Chew 500 MG PO BID PRN for Heartburn Calcium/Vitamin D (Os-Ismael 500 Plus D) Tab 1 TAB PO BIDM Cholecalciferol (Vitamin D3) 2,000 Unit Cap 1 CAP PO DAILY for 30 Days, #30 CAP 3 Refills Cranberry (Vaccinium Macrocarp (Cranberry) 250 Mg Cap 200 MG PO DAILY Dextromethorphan-Guaifenesin (Mucinex Dm) 1 Tab Tab 1 TAB PO Q12 PRN for Cough for 10 Days, #20 TAB Dextromethorphan-Guaifenesin (Robitussin-Dm Syrup) 1 Syp Syp 10 ML PO TID PRN for Cough Docusate Sodium (Colace) 100 Mg Cap 1 CAP PO BID for 15 Days, #30 CAP Fluticasone Prop/Salmeterol (Advair Diskus 250/50 60 Dose) 1 Ea Aerp 1 PUFF INH BID, INHALER Furosemide (Lasix) 40 Mg Tab 80 MG PO DAILY, TAB Furosemide (Lasix) 20 Mg Tab 1 TAB PO DAILY PRN for edema for 90 Days, #90 TAB 1 Refill Hydroxychloroquine Sulfate (Plaquenil) 200 Mg Tab 400 MG PO DAILY, TAB Iron-Vitamin C (Vitron-C) 1 Tab Tab 1 TAB PO BID Lorazepam (Lorazepam) 0.5 Mg Tab 0.5 MG PO HS PRN for Insomnia Magnesium Oxide (Mag-Ox) 400 Mg Tab 400 MG PO DAILY, TAB Metoprolol Succinate (Metoprolol Succinate ER) 25 Mg Tabcr 12.5 MG PO BID Mirtazapine (Remeron) 15 Mg Tab 1 TAB PO HS for 30 Days, #30 TAB 1 Refill Multiple Vitamin (Multivitamin) 1 Tab Tab 1 TABLET PO DAILY Ondansetron Hcl (Zofran) 4 Mg Tab 4 MG PO Q6 PRN for Nausea, TAB Oxycodone/Acetaminophen 5MG/325MG (Percocet 5MG/325MG) Tab 1 TABLET PO Q8H PRN for Pain, TAB Paroxetine (Paroxetine HCl) 40 Mg Tab 40 MG PO DAILY Potassium Chloride (Potassium Chloride Er) 10 Meq Cap 1 CAP PO DAILY for 90 Days, #90 CAP 1 Refill Senna (Senna Lax) 8.6 Mg Tab 1 TAB PO BID Warfarin Sod (Jantoven) 2 Mg Tab 2 MG PO DAILY, TAB Discontinued Medications: Prednisone (Prednisone) 5 Mg Tab 5 MG PO DAILY, TAB Admission Information HPI (per Admitting provider): 81 year old female who presents to the ER with cough and shortness of breath. Patient reports she started getting sick about one week ago. She was seen by her PCP who ordered Augmentin. Patient did not start the Augmentin until yesterday however was taking amoxicillin in the mean time. Patient did not have any improvement in her symptoms and spoke with her PCP yesterday who ordered a steroid taper however patient never picked it up from the pharmacy. Patient reports a worsening productive cough. She reports she swallows the mucous. She has had worsening shortness of breath on exertion. She has been using her nebulizer without improvement in symptoms. She also notes rhinorrhea. She reports a low grade fever of 99. She denies chest pain. No lightheadedness, dizziness, diaphoresis, or syncope. She denies abdominal pain, nausea, vomiting , or diarrhea. No urinary symptoms. In the ER, patient's CXR is clear. She is saturating well on room air. She was given IV solumedrol and neb treatment and continues to have wheezing. Physical Exam (per Admitting): General Appearance: no apparent distress Head: normocephalic Eyes: normal inspection ENT: hearing grossly normal Neck: supple, no JVD Respiratory/Chest: no respiratory distress, + decreased breath sounds, + rhonchi (anterior lung bello), + wheezing (faint, scattered, end expiratory) Cardiovascular: regular rate, rhythm, no edema, normal peripheral pulses Abdomen/GI: normal bowel sounds, non tender, soft Extremities/Musculoskelatal: normal inspection, no calf tenderness Neurologic/Psych: no motor/sensory deficits, alert, normal mood/affect, oriented x 3 Skin: normal color, warm/dry Hospital Course This is an 81 year old female with PMH of severe aortic valve stenosis s/p TAVR in May 2016, 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 Bronchitis 10/21 will continue doxycycline for a total of 10 days prednisone taper from 40mg to 5mg (quick taper) continue home dose of Lasix continue Protonix BID 10/20 continue prednisone 40mg switch IV doxy to oral doxycycline PO Lasix Protonix BID 10/19 seems like an upper respiratory/bronchitis type picture will taper steroids down to prednisone 40mg (takes 5mg chronically, so will taper down to that) continue doxycycline nebulization as needed continue PO Lasix continue Protonix BID 10/18 patient presents with significant wheezing, productive cough, shortness of breath patient feels significant SOB overnight, given IV steroids, nebulizer treatments as needed will give one dose of IV Lasix and then add back her PO Lasix CXR shows no pneumonia, some atelectasis and a large hiatal hernia continue PPI BID continue doxycycline for possible underlying bacterial infection negative for flu Possibly a combination of CHF and upper respiratory infection Hx. 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 of Recurrent PE 10/20 INR = 2.5 continue Coumadin 10/19 hold Coumadin INR = 3.2 goal of 2-3 10/18 on long-term Coumadin INR was 1.8 on admission INR today is 2.0, continue home dose of Coumadin and monitor CAD s/p stent continue home medications aspirin, b-hayden unsure of why she is not on a statin, possibly due to muscle pain Anxiety patient gets very anxious when she is short of breath added PO Ativan PRN - which is a home medication Anemia of Chronic Disease and Iron Deficiency 10/19 Hgb ~ 11 and stable 10/18 monitor Hgb currently > 10 and stable Hiatal Hernia continue PPI BID Osteoarthritis continue Plaquenil Prednisone 40mg, taper until back to 5mg prednisone daily DVT ppx Coumadin FULL CODE Total time spent on discharge = 40 minutes This includes examination of the patient, discharge planning, medication reconciliation, and communication with other providers. Discharge Instructions Please follow-up with Dr. Inman on October 24 @ 10:50AM * You will be prescribed doxycycline (antibiotic) - take this twice a day until complete * You will be prescribed higher dose of prednisone - take 40mg for two days, then 30mg for two days, then 20mg for two days, then 10mg or two days, then back to 5mg daily * Changed Prilosec to Protonix - You may need Protonix twice a day because of your large hiatal hernia * Please continue cardiac rehab starting next week
[2016-10-21] MEDS: ASCORBIC ACID 500 MG TAB PO SCH (09:39)
[2016-10-21] MEDS: MULTIVITAMIN TAB PO SCH (09:39)
[2016-10-21] MEDS: HYDROXYCHLOROQUINE SULFATE 200 MG TAB PO SCH (09:39)
[2016-10-21] MEDS: CHOLECALCIFEROL 1000 INTER.UNIT TAB PO SCH (09:40)
[2016-10-21] MEDS: ASPIRIN 81 MG ECTAB PO SCH (09:40)
[2016-10-21] MEDS: CALCIUM 600MG + VIT D 400 IU TAB PO SCH ×2 (09:40→17:39)
[2016-10-21] MEDS: MAGNESIUM OXIDE 400 MG TAB PO SCH (09:40)
[2016-10-21] MEDS: FUROSEMIDE 80 MG TAB PO SCH (09:41)
[2016-10-21] MEDS: METOPROLOL SUCC 25MG EXT REL TAB PO SCH ×2 (09:41→21:15)
[2016-10-21] MEDS: PAROXETINE 20 MG TAB PO SCH (09:41)
[2016-10-21] MEDS: SENNA 8.6 MG TAB PO SCH (09:42)
[2016-10-21] MEDS: BISACODYL 5 MG TABEC PO SCH (09:42)
[2016-10-21] MEDS: PANTOprazole SOD 40 MG TAB PO SCH ×2 (09:42→21:14)
[2016-10-21] MEDS: DOCUSATE SODIUM 100 MG CAP PO SCH (09:42)
[2016-10-21] MEDS: FLUTICASONE/SALMETEROL 250/50 (ADVAIR) 14 PUFF/1 INHALER INH SCH ×2 (09:42→21:08)
[2016-10-21] MEDS: DEXAMETHASONE CONC SOLN 3.75 MG, NYSTATIN SUSP 30 ML, DiphenhydrAMINE HCL SYRUP 300 MG,... PO SCH ×10 (09:44→21:20)
[2016-10-21] MEDS: DOXYCYCLINE HYCLATE 100 MG CAP PO SCH ×2 (09:59→21:15)
[2016-10-21] MEDS: GUAIFENESIN/DEXTROM SYRUP 100MG/10MG 5ML UDC PO PRN (09:59)
[2016-10-21] MEDS ORDERED: LOPERAMIDE HCL 2 MG CAP PO ONE (13:30)
[2016-10-21] MEDS ORDERED: NURSING VERBAL MED ORDER ONE (13:30)
--- NOTE | 2016-10-21 13:43 | Progress Note ---
Progress Note Date of Service Oct 21, 2016. Progress Note ATTENDING ADDENDUM : pt had 3 episodes of diarrhea loose watery stool -pt mentions " it just runs out of me " no abdominal cramps was constipated past few days has been on multiple laxatives for constipation concern for C diff -as she has been on Antibiotics for past few days pt admitted with COPD exacerbation -scheduled to be discharged home today by Dr Frederick ordered for stool sample for C diff d/w Pt -wants diarrhea to improve and have stool tested for C diff D/c discharge today left voice message to Son -Mekhi Frederick updated
[2016-10-21 14:34] VITALS: PULSE 85; O2SAT 94
[2016-10-21 15:02] VITALS: BP 113/69; PULSE 84; TEMP 36.5; O2SAT 95
[2016-10-21] MEDS: WARFARIN SOD 2 MG TAB PO SCH (15:48)
[2016-10-21] MEDS: ACETAMINOPHEN 325 MG TAB PO PRN (15:48)
[2016-10-21 19:15] VITALS: PULSE 81; O2SAT 93
[2016-10-21] MEDS: LORAZEPAM 0.5 MG TAB PO PRN (21:14)
[2016-10-21] MEDS: MIRTAZAPINE TAB 15 MG TAB PO SCH (21:15)
[2016-10-21 23:40] VITALS: BP 137/83; PULSE 80; TEMP 36.2; O2SAT 93
[2016-10-22] VITALS (7 sets, daily range): BP systolic 109–150; BP diastolic 66–84; PULSE 70–90; TEMP 36.2–36.8; O2SAT 90–97
[2016-10-22] MEDS: OXYCODONE/ACETAMINOPHEN 5-325 TAB PO PRN ×2 (00:04→22:14)
[2016-10-22] MEDS: ALBUT/IPRATROP 3MG/0.5MG NEB 3 ML VIAL INH SCH ×4 (01:28→19:11)
[2016-10-22 05:52] LABS: HEMATOCRIT 31.1 % (37-47); MEAN CORPUSCULAR HEMOGLOBIN 31.2 pg (25-34); MEAN CORPUSCULAR HGB CONC 32.5 g/dl (32-36); MEAN PLATELET VOLUME 10.2 fL (7.4-10.4); PLATELET COUNT 303 K/uL (130-400); RED BLOOD COUNT 3.24 M/uL (4.2-5.4); WHITE BLOOD COUNT 15.39 K/uL (4.8-10.8)
[2016-10-22] MEDS: PANTOprazole SOD 40 MG TAB PO SCH ×2 (07:33→22:15)
[2016-10-22] MEDS: FLUTICASONE/SALMETEROL 250/50 (ADVAIR) 14 PUFF/1 INHALER INH SCH ×2 (08:12→22:12)
[2016-10-22] MEDS: MAGNESIUM OXIDE 400 MG TAB PO SCH (08:13)
[2016-10-22] MEDS: DOXYCYCLINE HYCLATE 100 MG CAP PO SCH (08:13)
[2016-10-22] MEDS: CALCIUM 600MG + VIT D 400 IU TAB PO SCH ×2 (08:13→17:12)
[2016-10-22] MEDS: ASPIRIN 81 MG ECTAB PO SCH (08:13)
[2016-10-22] MEDS: FUROSEMIDE 80 MG TAB PO SCH (08:13)
[2016-10-22] MEDS: CHOLECALCIFEROL 1000 INTER.UNIT TAB PO SCH (08:13)
[2016-10-22] MEDS: HYDROXYCHLOROQUINE SULFATE 200 MG TAB PO SCH (08:14)
[2016-10-22] MEDS: METOPROLOL SUCC 25MG EXT REL TAB PO SCH ×2 (08:15→22:16)
[2016-10-22] MEDS: MULTIVITAMIN TAB PO SCH (08:15)
[2016-10-22] MEDS: ASCORBIC ACID 500 MG TAB PO SCH (08:16)
[2016-10-22] MEDS: PAROXETINE 20 MG TAB PO SCH (08:16)
[2016-10-22] MEDS: GUAIFENESIN/DEXTROM SYRUP 100MG/10MG 5ML UDC PO PRN (08:35)
[2016-10-22] MEDS: DEXAMETHASONE CONC SOLN 3.75 MG, NYSTATIN SUSP 30 ML, DiphenhydrAMINE HCL SYRUP 300 MG,... PO SCH ×10 (08:35→22:18)
--- NOTE | 2016-10-22 13:55 | Progress Note ---
Internal Med Progress Note Date of Service: Oct 22, 2016. Provider Documentation: SUBJECTIVE: no diarrhea or bowel movement since yesterday does not feel well , more tired and weak, feels more shortness of breath increased nasal and sinus congestion mouth /tongue feels sore no fever has ongoing non productive cough OBJECTIVE: Vital Signs-as noted below Exam: General-pleasant, no sign of distress Eyes-sclera non icteric [id number] /beefy , pt mentions of having soreness of mouth Lungs-coarse breath sound with crackles , scattered wheeze more pronounced with expiration Heart-regular S1/S2, no lower ext edema , no JVD Abdomen-soft, non tender Extremities-no rash or deformity Neuro-no focal deficit Lab data as noted below. ASSESSMENT & PLAN: COPD EXACERBATION /BRONCHITIS having worsening symptom today more SOB , sinus congestion no fever changed Abx iv Rocephin /Zithromax IV Solu Medrol -as pt is still wheezing diffusely ( DC Prednisone ) Pulmonology consult requested repeat Cxray in AM ORAL THRUSH: due to steroid use oral nystatin susp 10 mg QID Hx. 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 of Recurrent PE with hx of Factor 5 Leiden INR therapeutic continue Coumadin CAD s/p stent continue home medications aspirin, b-hayden Anxiety patient gets very anxious when she is short of breath added PO Ativan PRN - which is a home medication Anemia of Chronic Disease and Iron Deficiency hb stable Hiatal Hernia continue PPI BID Osteoarthritis hold Plaquenil-on going infection on Iv Solu Medrol for COPD DVT ppx Coumadin FULL CODE DISPOSITION will continue to observe pt on medical floor Discharge home when medically stable Medicine follow up with Dr Yoly Block Son -Mekhi Conley given update over phone Vital Signs: Date Time Temp Pulse Resp B/P Pulse Ox O2 Delivery O2 Flow Rate FiO2 10/22/16 15:09 36.5 90 20 112/72 90 Room Air 10/22/16 14:00 84 18 97 Room Air 10/22/16 08:15 Room Air 10/22/16 07:34 36.2 70 16 150/84 96 Room Air 10/22/16 07:08 75 18 95 Room Air 10/22/16 01:28 81 18 93 Room Air 10/22/16 00:00 Room Air 10/21/16 23:40 36.2 80 20 137/83 93 Room Air 10/21/16 19:15 81 18 93 Room Air Lab Results: Results Past 24 Hours Test 10/22/16 05:33 Range/Units White Blood Count 15.39 4.8-10.8 K/uL Red Blood Count 3.24 4.2-5.4 M/uL Hemoglobin 10.1 12.0-16.0 g/dL Hematocrit 31.1 37-47 % Mean Corpuscular Volume 96.0 80-100 fL Mean Corpuscular Hemoglobin 31.2 25-34 pg Mean Corpuscular Hemoglobin Concent 32.5 32-36 g/dl RDW Standard Deviation 53.1 36.4-46.3 fL RDW Coefficient of Variation 15.2 11.5-14.5 % Platelet Count 303 130-400 K/uL Mean Platelet Volume 10.2 7.4-10.4 fL Nucleated RBC Absolute Count (auto) 0.05 0-0 K/uL Nucleated Red Blood Cells % 0.3 %
[2016-10-22] MEDS ORDERED: SODIUM CHLORIDE 0.65% NA SOLN 45 ML (OCEAN) PRN (14:00)
[2016-10-22] MEDS ORDERED: NYSTATIN SUSP 500,000 U/5 ML UDC PO SCH (14:00)
[2016-10-22] MEDS: GUAIFENESIN 600 MG TABCR PO SCH ×2 (14:22→22:17)
[2016-10-22] MEDS ORDERED: AMOXICILLIN/CLAVULANATE TAB 500 MG TAB PO SCH (15:00)
[2016-10-22] MEDS: METHYLPREDNISOLONE IV 30 MG in SYRINGE 0 ML IV SCH (16:00)
[2016-10-22] MEDS: WARFARIN SOD 2 MG TAB PO SCH (16:01)
[2016-10-22] MEDS: CEFTRIAXONE SOD INJ 1 GM in DEXTROSE 5% ADD-VANTAGE 50ML 50 ML IV SCH (17:12)
[2016-10-22] MEDS: NYSTATIN SUSP 500,000 U/5 ML UDC PO SCH ×2 (17:13→22:18)
[2016-10-22] MEDS: LACTOBACILLUS ACIDOPHILUS (FLORANEX) TAB PO SCH (17:13)
[2016-10-22] MEDS: AZITHROMYCIN IV 500 MG in DEXTROSE 5% 250ML 250 ML IV SCH (18:01)
[2016-10-22] MEDS: LORAZEPAM 0.5 MG TAB PO PRN (22:14)
[2016-10-22] MEDS: MIRTAZAPINE TAB 15 MG TAB PO SCH (22:17)
[2016-10-23] VITALS (8 sets, daily range): BP systolic 137–145; BP diastolic 72–78; PULSE 74–90; TEMP 36.2–36.6; O2SAT 95–99
[2016-10-23] MEDS ORDERED: RASPBERRY SYRUP 5 ML UDP PO ONE (00:12)
[2016-10-23] MEDS ORDERED: VANCOMYCIN HCL 250 MG/5 ML SOLN PO ONE (00:12)
[2016-10-23] MEDS: ALBUT/IPRATROP 3MG/0.5MG NEB 3 ML VIAL INH SCH ×4 (01:56→19:48)
[2016-10-23] MEDS: METHYLPREDNISOLONE IV 30 MG in SYRINGE 0 ML IV SCH ×2 (04:00→16:18)
[2016-10-23 06:20] LABS: HEMATOCRIT 31.2 % (37-47); MEAN CORPUSCULAR HEMOGLOBIN 30.1 pg (25-34); MEAN CORPUSCULAR HGB CONC 32.1 g/dl (32-36); MEAN PLATELET VOLUME 9.8 fL (7.4-10.4); PLATELET COUNT 330 K/uL (130-400); RED BLOOD COUNT 3.32 M/uL (4.2-5.4); WHITE BLOOD COUNT 11.93 K/uL (4.8-10.8)
[2016-10-23 06:32] LABS: INR 3.3 (0.9-1.1); PROTHROMBIN TIME (PATIENT) 37.5 SECONDS (9.0-12.0)
[2016-10-23 06:52] LABS: BUN/CREATININE RATIO 25.3 (10-20); CALCIUM 8.4 mg/dl (8.5-10.1); CREATININE 1.6 mg/dl (0.60-1.20); MAGNESIUM 2.1 mg/dl (1.8-2.4); POTASSIUM 3.9 mmol/L (3.5-5.1)
--- NOTE | 2016-10-23 07:54 | PULMONARY CONSULTATION ---
DATE OF CONSULTATION: 10/23/2016 DATE OF CONSULTATION: 10/23/2016. HISTORY OF PRESENT ILLNESS: The patient is a very pleasant 81-year-old female who was admitted to the hospital several days ago with shortness of breath, cough and wheezing. Dr. Jessica has asked me to evaluate the patient from a pulmonary standpoint. Actually from a pulmonary standpoint, she has been doing fairly well. She recently had a TAVR done at [facility] for severe aortic stenosis and she states she was actually doing very well from respiratory standpoint, that helped dramatically. She had been fairly active at home, although she does walk with a walker because of knee pain. She developed a cough following respiratory tract infection about 10 days ago. She was ordered to be on Augmentin, but took amoxicillin with no significant improvement in her symptoms. Day prior to admission, she was placed on some steroids but never took those. She had worsening cough which was producing some clear sputum associated with shortness of breath with exertion and some mild orthopnea. She does have a nebulizer at home, although she states she has never had any lung disease. She took that without any significant improvement. She then presented to the Emergency Room and was seen by Dr. Olmedo, had some complaints of rhinorrhea and congestion. She had been taking some Robitussin and using the albuterol. She has a caregiver at home who brought her to the Emergency Room and was noted to have wheezing and shortness of breath. In the Emergency Room, her oxygen saturation was 92% on room air. Respiratory rate was 20. She did have bilateral wheezing with crackles as well. Chest x-ray on the revealed subsegmental atelectasis with a large hiatal hernia. On occasion, the patient will complain of reflux but denies any significant aspiration. Review of systems otherwise is unremarkable. She has not had any significant industrial exposures. No one in her family has been ill. She denies any rolando aspiration. She has not had any aspiration of any foreign bodies. She has not had any peripheral edema or chest pain, hemoptysis, significant sputum production. She does state she is a bit better but continues to have some coughing. PAST MEDICAL HISTORY: Positive for the usual childhood diseases, measles, chickenpox. She carries a history of factor V mutation with a history of pulmonary embolism in the remote past, irritable bowel syndrome, osteoporosis, frequent urinary tract infections, basal cell carcinoma with Mohs surgery, hypertension, depression, diverticulitis, hyperlipidemia, chronic kidney disease stage III, aortic stenosis, status post TAVR, valvular congestive heart failure, coronary artery disease and degenerative joint disease. PAST SURGICAL HISTORY: Positive for TAVR, left knee arthroscopy, endoscopies for reflux, coronary artery stenting, hysterectomy, catheterization, cystoscopy, Mohs surgery, multiple colonoscopies. FAMILY HISTORY: Significant for diabetes, coronary artery disease and hypertension. SOCIAL HISTORY: She has never used any tobacco or alcohol. 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 She is a , has 3 grown children. No one in her family has any lung problems. MEDICATIONS: Noted. According to the nurses' note she continues to have some mild shortness of breath with increasing congestion. PHYSICAL EXAMINATION: VITAL SIGNS: Stable. Blood pressure 109/66, oxygen saturation 97% on room air. She is afebrile. Her weight is 64.8 kilograms. When she was here in January of last year with pneumonia she was 66 kilograms. Her weight has been relatively stable. HEAD, EYES, EARS, NOSE, AND THROAT: Reveals no evidence of thrush. She does have some mild erythema on her tongue. No neck vein distention or HJR is noted. No adenopathy is noted. Expansion of the thorax is good with deep inspiration. There is some fremitus at the lung bases. HEART: Regular rate and rhythm, minimal 1/6 systolic murmur heard at the apex. LUNGS: Reveals some wheezing bilaterally at the bases in the mid lung bello. There is fremitus bilaterally as well. No crackles are noted. Minimal rales are noted at the lung bases as well. ABDOMEN: Soft, nontender. EXTREMITIES: She has no cyanosis, clubbing or edema and there is no clinical evidence of DVT. Chest x-ray revealed some linear atelectasis at the lung bases with a large hiatal hernia. LABORATORY DATA: White count is 11.9, hemoglobin 10, hematocrit 31.2%. Platelet count 330,000 with an unremarkable differential. PRP is stable with a BUN of 41, creatinine of 1.6. BNP was 872 on the . INR is 3.3. Influenza A and B PCR and antigens are all negative. Stool was positive for C. diff on the . Blood cultures were unremarkable. According to the record apparently she had 3 bowel movements on the but none since. IMPRESSION: 1. Asthmatic bronchitis. She does not really have any significant chronic obstructive lung disease that I can glean from her records that she has been a lifelong nonsmoker. I believe she developed a respiratory tract infection and has developed reactive airways disorder related to that or an asthmatic bronchitis. 2. Chronic kidney disease. 3. Status post transcatheter aortic valve replacement for serious aortic stenosis. 4. History of pulmonary emboli. She is well anticoagulated at the present time. RECOMMENDATIONS: 1. At this point, I would continue with the Zithromax and ceftriaxone. 2. I think the methylprednisolone could be changed to prednisone 40 mg daily with a taper over about 10 days. 3. I would add on Advair and increase that to the 500 dose and continue on the DuoNeb 4 times a day and q. 4 hours p.r.n. 4. Good antireflux regimen. She has a large hiatal hernia and reflux could exacerbate and aggravate asthmatic bronchitis. She is on Protonix 40 b.i.d. and her symptoms have resolved. Thanks for asking me to evaluate Mrs. Conley and I will be glad to follow along with you during her hospital stay.
[2016-10-23] MEDS: VANCOMYCIN HCL 250 MG/5 ML SOLN PO SCH ×4 (09:10→21:06)
[2016-10-23] MEDS: NYSTATIN SUSP 500,000 U/5 ML UDC PO SCH ×4 (09:11→21:04)
[2016-10-23] MEDS: RASPBERRY SYRUP 5 ML UDP PO SCH ×4 (09:11→21:06)
[2016-10-23] MEDS: GUAIFENESIN 600 MG TABCR PO SCH ×2 (09:11→21:12)
[2016-10-23] MEDS: LACTOBACILLUS ACIDOPHILUS (FLORANEX) TAB PO SCH ×3 (09:12→16:28)
[2016-10-23] MEDS: MAGNESIUM OXIDE 400 MG TAB PO SCH (09:12)
[2016-10-23] MEDS: ASPIRIN 81 MG ECTAB PO SCH (09:12)
[2016-10-23] MEDS: FUROSEMIDE 80 MG TAB PO SCH (09:12)
[2016-10-23] MEDS: CALCIUM 600MG + VIT D 400 IU TAB PO SCH ×2 (09:12→16:27)
[2016-10-23] MEDS: METOPROLOL SUCC 25MG EXT REL TAB PO SCH ×2 (09:13→21:10)
[2016-10-23] MEDS: PAROXETINE 20 MG TAB PO SCH (09:13)
[2016-10-23] MEDS: PANTOprazole SOD 40 MG TAB PO SCH ×2 (09:13→21:06)
[2016-10-23] MEDS: MULTIVITAMIN TAB PO SCH (09:13)
[2016-10-23] MEDS: ASCORBIC ACID 500 MG TAB PO SCH (09:14)
[2016-10-23] MEDS: CHOLECALCIFEROL 1000 INTER.UNIT TAB PO SCH (09:14)
[2016-10-23] MEDS: DEXAMETHASONE CONC SOLN 3.75 MG, NYSTATIN SUSP 30 ML, DiphenhydrAMINE HCL SYRUP 300 MG,... PO SCH ×10 (09:14→21:04)
[2016-10-23] MEDS: FLUTICASONE/SALMETEROL (ADVAIR) 500/50 INH 14 PUFF INH SCH ×2 (09:56→21:03)
[2016-10-23] MEDS: GUAIFENESIN/DEXTROM SYRUP 100MG/10MG 5ML UDC PO PRN (13:47)
[2016-10-23] MEDS: LORAZEPAM 0.5 MG TAB PO PRN (13:50)
[2016-10-23] MEDS: WARFARIN SOD 2 MG TAB PO SCH (16:19)
[2016-10-23] MEDS: CEFTRIAXONE SOD INJ 1 GM in DEXTROSE 5% ADD-VANTAGE 50ML 50 ML IV SCH (16:26)
[2016-10-23] MEDS: AZITHROMYCIN IV 500 MG in DEXTROSE 5% 250ML 250 ML IV SCH (19:09)
[2016-10-23] MEDS ORDERED: FUROSEMIDE 20 MG TAB PO PRN (19:30)
[2016-10-23] MEDS ORDERED: LORAZEPAM 0.5 MG TAB PO PRN (19:30)
--- NOTE | 2016-10-23 20:08 | Progress Note ---
Internal Med Progress Note Date of Service: Oct 23, 2016. Provider Documentation: SUBJECTIVE: continues to have cough has nasal stuffiness no fever had one bowel movement today worried that she is not getting any better sons visiting , present at bedside OBJECTIVE: Vital Signs-as noted below Exam: General-anxious Eyes-sclera non icteric [id number]-ajcfjz-eal /beefy , Lungs-coarse breath sound , scattered wheeze improved since yesterday Heart-regular S1/S2, no lower ext edema , no JVD Abdomen-soft, non tender Extremities-no rash or deformity Neuro-no focal deficit Lab data as noted below. ASSESSMENT & PLAN: ASTHMA EXACERBATION /BRONCHITIS Slow improvement appreciate input form Pulmonology Dr Bright recommend to cont Abx iv Rocephin /Zithromax for now will D/c IV Solu Medrol -improved wheezed -transition to oral Prednisone - will need slow taper Advair dose increased cont Neb tx Flonase added ( home medication ) cont PPI to prevent acid reflux causing asthma exacerbation ( has large Hiatal Hernia ) C DIFF INFECTION : stool C diff positive due to broad spectrum abx use was on ABx as out pt for bronchitis , required cont ABx tx for pulmonary infection on Oral Vancomycin -needs 10 days tx cont Lactinex ORAL THRUSH: mentions of mild improvement of mouth soreness with oral nystatin due to steroid use cont oral nystatin susp 10 mg QID Hx. 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 of Recurrent PE with hx of Factor 5 Leiden INR therapeutic continue Coumadin CAD s/p stent continue home medications aspirin, b-hayden Anxiety patient gets very anxious when she is short of breath added PO Ativan PRN - which is a home medication Anemia of Chronic Disease and Iron Deficiency hb stable Hiatal Hernia continue PPI BID Osteoarthritis hold Plaquenil-on going infection on Iv Solu Medrol for COPD DVT ppx Coumadin FULL CODE DISPOSITION cont PT/OT while in hospital Discharge home when medically stable Medicine follow up with Dr Yoly Block Family given update at bedside Vital Signs: Date Time Temp Pulse Resp B/P Pulse Ox O2 Delivery O2 Flow Rate FiO2 10/23/16 19:48 79 18 96 Room Air 10/23/16 15:57 36.6 90 15 140/74 99 Room Air 10/23/16 14:14 90 18 97 Room Air 10/23/16 08:30 Room Air 10/23/16 07:44 36.5 74 18 145/78 95 Room Air 10/23/16 07:08 74 18 95 Room Air 10/23/16 01:56 78 18 97 Room Air 10/23/16 00:00 Room Air 10/22/16 23:10 36.8 77 16 109/66 97 Room Air Lab Results: Results Past 24 Hours Test 10/22/16 20:04 10/23/16 06:12 Range/Units Bedside Glucose 167 70-90 mg/dl White Blood Count 11.93 4.8-10.8 K/uL Red Blood Count 3.32 4.2-5.4 M/uL Hemoglobin 10.0 12.0-16.0 g/dL Hematocrit 31.2 37-47 % Mean Corpuscular Volume 94.0 80-100 fL Mean Corpuscular Hemoglobin 30.1 25-34 pg Mean Corpuscular Hemoglobin Concent 32.1 32-36 g/dl RDW Standard Deviation 51.6 36.4-46.3 fL RDW Coefficient of Variation 15.2 11.5-14.5 % Platelet Count 330 130-400 K/uL Mean Platelet Volume 9.8 7.4-10.4 fL Nucleated RBC Absolute Count (auto) 0.03 0-0 K/uL Nucleated Red Blood Cells % 0.3 % Prothrombin Time 37.5 9.0-12.0 SECONDS Prothromb Time International Ratio 3.3 0.9-1.1 Sodium Level 142 136-145 mmol/L Potassium Level 3.9 3.5-5.1 mmol/L Chloride Level 104 98-107 mmol/L Carbon Dioxide Level 28 21-32 mmol/L Anion Gap 10.0 3-11 mmol/L Blood Urea Nitrogen 41 7-18 mg/dl Creatinine 1.60 0.60-1.20 mg/dl Est Creatinine Clear Calc Drug Dose 23.0 ml/min Estimated GFR () 34.2 Estimated GFR (Non- 29.5 BUN/Creatinine Ratio 25.3 10-20 Random Glucose 125 70-99 mg/dl Calcium Level 8.4 8.5-10.1 mg/dl Magnesium Level 2.1 1.8-2.4 mg/dl
[2016-10-23] MEDS: MIRTAZAPINE TAB 15 MG TAB PO SCH (21:12)
[2016-10-23] MEDS: FLUTICASONE PROPIONATE NA SPR 16 GM BTL SCH (21:22)
[2016-10-23] MEDS: OXYCODONE/ACETAMINOPHEN 5-325 TAB PO PRN (21:23)
[2016-10-24] VITALS (7 sets, daily range): BP systolic 125–152; BP diastolic 70–77; PULSE 61–85; TEMP 36.2–36.4; O2SAT 93–97
[2016-10-24] MEDS: ALBUT/IPRATROP 3MG/0.5MG NEB 3 ML VIAL INH SCH ×4 (02:27→19:54)
[2016-10-24 06:30] LABS: PROTHROMBIN TIME (PATIENT) 54.3 SECONDS (9.0-12.0)
--- NOTE | 2016-10-24 07:55 | PROGRESS NOTE ---
DATE: 10/24/2016 SUBJECTIVE: The patient states she is better today. She continues to have cough which is nonproductive, but it is improved. Her dyspnea is considerably improved. She slept fairly well last night. She denies aspiration. PHYSICAL EXAMINATION: VITAL SIGNS: Stable. Oxygen saturation 93% on room air, blood pressure 132/72. I\T\O is not noted. The last weight was 64.8 kilograms on the . According to the nurses' notes she had a fairly good day yesterday out of bed without difficulty. Did have some urinary incontinence. HEENT: Shows some erythema of the posterior pharynx with no thrush. NECK: No neck vein distension or HJR. No adenopathy noted. HEART: Regular rate and rhythm, second heart sound normal. No murmurs are heard. LUNGS: Reveal some scattered rhonchi bilaterally, but the wheezing has improved. No rales are noted. No fremitus is noted. ABDOMEN: Soft, nontender. EXTREMITIES: She has no cyanosis, clubbing or edema. Again, the chest x-ray revealed a large hiatal hernia with some linear atelectatic changes. LABORATORY DATA: White count is improved from 16.35 on the down to 11.93 yesterday with a hemoglobin of 10. INR was 3.3 yesterday. It is pending. IMPRESSION: 1. Asthmatic bronchitis. 2. Status post transcatheter aortic valve replacement. I really could not detect a murmur or a gallop and I thought her second heart sound was normal today. Her EKG did reveal normal sinus rhythm with some baseline artifact, borderline left axis deviation, LVH, nonspecific changes. RECOMMENDATIONS: 1. At this point, I continue with her present medications. Increase her activity as much as possible, perhaps a physical therapy to see if they can walk her up stairs. A 6-minute walk test will be helpful, I suspect that probably will be normal now. 2. Continue on the prednisone and taper that down over about 10 days and I would continue on the Advair 500/50 which is an increased dose, 1 inhalation b.i.d. with a mouth rinse. That could be taken with breakfast and supper to enhance removal of the steroid on the oral mucosa. For now, I think I would continue on the Zithromax and I believe the ceftriaxone could be discontinued. The INR is pending for today. Overall, she seems to be improved.
--- NOTE | 2016-10-24 08:09 | DIAGNOSTIC IMAGING REPORT ---
CHEST ONE VIEW PORTABLE HISTORY: bronchitis COMPARISON: Chest 10/17/2016. FINDINGS: Old, healed left-sided rib fractures. There are healing right-sided rib fractures. There are low lung volumes. No pneumothorax. The heart remains mildly enlarged. A hiatus hernia is again noted. Bibasilar densities favor subsegmental atelectasis. There is a metallic stent overlying the heart. No new focal lung consolidations. IMPRESSION: 1. No change from the prior study. 2. Cardiomegaly. 3. Trace bilateral pleural effusions and bibasilar densities suggesting subsegmental atelectasis. 4. Hiatus hernia, unchanged. Electronically signed by: Nirav Varma M.D. 10/24/2016 8:08 AM Dictated Date/Time: 10/24/2016 8:05 AM
[2016-10-24] MEDS: MULTIVITAMIN TAB PO SCH (08:15)
[2016-10-24] MEDS: ASPIRIN 81 MG ECTAB PO SCH (08:15)
[2016-10-24] MEDS: FLUTICASONE/SALMETEROL (ADVAIR) 500/50 INH 14 PUFF INH SCH ×2 (08:15→20:25)
[2016-10-24 08:16] LABS: INR 4.8 (0.9-1.1)
[2016-10-24] MEDS: CHOLECALCIFEROL 1000 INTER.UNIT TAB PO SCH (08:16)
[2016-10-24] MEDS: FLUTICASONE PROPIONATE NA SPR 16 GM BTL SCH (08:17)
[2016-10-24] MEDS: CALCIUM 600MG + VIT D 400 IU TAB PO SCH ×2 (08:17→17:30)
[2016-10-24] MEDS: DEXAMETHASONE CONC SOLN 3.75 MG, NYSTATIN SUSP 30 ML, DiphenhydrAMINE HCL SYRUP 300 MG,... PO SCH ×10 (08:17→20:33)
[2016-10-24] MEDS: NYSTATIN SUSP 500,000 U/5 ML UDC PO SCH ×4 (08:18→20:25)
[2016-10-24] MEDS: ASCORBIC ACID 500 MG TAB PO SCH (08:18)
[2016-10-24] MEDS: MAGNESIUM OXIDE 400 MG TAB PO SCH (08:18)
[2016-10-24] MEDS: PANTOprazole SOD 40 MG TAB PO SCH ×2 (08:18→20:26)
[2016-10-24] MEDS: RASPBERRY SYRUP 5 ML UDP PO SCH ×4 (08:19→20:25)
[2016-10-24] MEDS: FUROSEMIDE 80 MG TAB PO SCH (08:19)
[2016-10-24] MEDS: VANCOMYCIN HCL 250 MG/5 ML SOLN PO SCH ×4 (08:19→20:26)
[2016-10-24] MEDS: GUAIFENESIN 600 MG TABCR PO SCH ×2 (08:19→20:28)
[2016-10-24] MEDS: LACTOBACILLUS ACIDOPHILUS (FLORANEX) TAB PO SCH ×3 (08:20→17:30)
[2016-10-24] MEDS: PAROXETINE 20 MG TAB PO SCH (08:20)
[2016-10-24] MEDS: METOPROLOL SUCC 25MG EXT REL TAB PO SCH ×2 (08:21→20:28)
[2016-10-24] MEDS: GUAIFENESIN/DEXTROM SYRUP 100MG/10MG 5ML UDC PO PRN ×2 (12:41→21:11)
[2016-10-24] MEDS ORDERED: NURSING VERBAL MED ORDER ONE (14:00)
[2016-10-24] MEDS: LORAZEPAM 0.5 MG TAB PO PRN (14:36)
[2016-10-24] MEDS: CEFTRIAXONE SOD INJ 1 GM in DEXTROSE 5% ADD-VANTAGE 50ML 50 ML IV SCH (17:28)
[2016-10-24] MEDS: AZITHROMYCIN IV 500 MG in DEXTROSE 5% 250ML 250 ML IV SCH (17:34)
[2016-10-24] MEDS: OXYCODONE/ACETAMINOPHEN 5-325 TAB PO PRN (19:14)
[2016-10-24] MEDS: MIRTAZAPINE TAB 15 MG TAB PO SCH (20:28)
--- NOTE | 2016-10-24 21:01 | Progress Note ---
Internal Med Progress Note Date of Service: Oct 24, 2016. Provider Documentation: SUBJECTIVE: had 3 episodes of loose bowel movement today worsening of non productive cough had headache earlier generalized weakness OBJECTIVE: Vital Signs-as noted below Exam: General-anxious Eyes-sclera non icteric WCB-ywnymu-gim /beefy , Lungs-coarse breath sound , scattered wheeze improved since yesterday Heart-regular S1/S2, no lower ext edema , no JVD Abdomen-soft, non tender Extremities-no rash or deformity Neuro-no focal deficit Lab data as noted below. ASSESSMENT & PLAN: ASTHMA EXACERBATION /BRONCHITIS Slow improvement appreciate input form Pulmonology Dr Bright recommend to cont Abx iv Rocephin /Zithromax for now on oral Prednisone -will need slow taper Advair dose increased cont Neb tx Flonase added ( home medication ) cont PPI to prevent acid reflux causing asthma exacerbation ( has large Hiatal Hernia ) C DIFF INFECTION : stool C diff positive due to broad spectrum abx use was on ABx as out pt for bronchitis , required cont ABx tx for pulmonary infection on Oral Vancomycin -needs 10 days tx cont Lactinex ORAL THRUSH: mentions of mild improvement of mouth soreness with oral nystatin due to steroid use cont oral nystatin susp 10 mg QID Hx. 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 of Recurrent PE with hx of Factor 5 Leiden INR therapeutic continue Coumadin CAD s/p stent continue home medications aspirin, b-hayden Anxiety patient gets very anxious when she is short of breath added PO Ativan PRN - which is a home medication Anemia of Chronic Disease and Iron Deficiency hb stable Hiatal Hernia continue PPI BID Osteoarthritis hold Plaquenil-on going infection on Iv Solu Medrol for COPD DVT ppx Coumadin FULL CODE DISPOSITION cont PT/OT while in hospital Discharge home in 1-2 days Medicine follow up with Dr Yoly Block Family given update at bedside Vital Signs: Date Time Temp Pulse Resp B/P Pulse Ox O2 Delivery O2 Flow Rate FiO2 10/25/16 19:40 89 16 96 Room Air 10/25/16 19:00 Room Air 10/25/16 15:36 Room Air 10/25/16 14:54 36.7 77 18 140/83 96 Room Air 10/25/16 14:15 82 16 97 Room Air 10/25/16 08:00 Room Air 10/25/16 07:33 36.3 74 18 128/81 95 Room Air 10/25/16 07:11 80 16 97 Room Air 10/25/16 01:59 70 16 97 Room Air 10/24/16 23:59 Room Air 10/24/16 23:25 36.4 74 20 132/77 94 Room Air Lab Results: Results Past 24 Hours Test 10/25/16 05:45 10/25/16 18:05 Range/Units Prothrombin Time 66.4 54.7 9.0-12.0 SECONDS Prothromb Time International Ratio 5.8 4.8 0.9-1.1
[2016-10-25] VITALS (7 sets, daily range): BP systolic 128–146; BP diastolic 81–83; PULSE 70–89; TEMP 36.3–36.7; O2SAT 95–97
[2016-10-25] MEDS: ALBUT/IPRATROP 3MG/0.5MG NEB 3 ML VIAL INH SCH ×4 (01:59→19:40)
[2016-10-25 06:44] LABS: PROTHROMBIN TIME (PATIENT) 66.4 SECONDS (9.0-12.0)
[2016-10-25 06:46] LABS: INR 5.8 (0.9-1.1)
[2016-10-25] MEDS: FLUTICASONE PROPIONATE NA SPR 16 GM BTL SCH (08:06)
[2016-10-25] MEDS: FLUTICASONE/SALMETEROL (ADVAIR) 500/50 INH 14 PUFF INH SCH ×2 (08:07→20:17)
[2016-10-25] MEDS: ASCORBIC ACID 500 MG TAB PO SCH (08:07)
[2016-10-25] MEDS: VANCOMYCIN HCL 250 MG/5 ML SOLN PO SCH ×4 (08:08→20:14)
[2016-10-25] MEDS: RASPBERRY SYRUP 5 ML UDP PO SCH ×4 (08:08→20:14)
[2016-10-25] MEDS: LACTOBACILLUS ACIDOPHILUS (FLORANEX) TAB PO SCH ×3 (08:08→17:17)
[2016-10-25] MEDS: DEXAMETHASONE CONC SOLN 3.75 MG, NYSTATIN SUSP 30 ML, DiphenhydrAMINE HCL SYRUP 300 MG,... PO SCH ×10 (08:11→20:13)
[2016-10-25] MEDS: GUAIFENESIN/DEXTROM SYRUP 100MG/10MG 5ML UDC PO PRN ×2 (08:12→20:17)
[2016-10-25] MEDS: CALCIUM 600MG + VIT D 400 IU TAB PO SCH ×2 (08:12→17:18)
[2016-10-25] MEDS: PAROXETINE 20 MG TAB PO SCH (08:13)
[2016-10-25] MEDS: METOPROLOL SUCC 25MG EXT REL TAB PO SCH ×2 (08:13→20:19)
[2016-10-25] MEDS: FUROSEMIDE 80 MG TAB PO SCH (08:13)
[2016-10-25] MEDS: GUAIFENESIN 600 MG TABCR PO SCH ×2 (08:13→20:55)
[2016-10-25] MEDS: MULTIVITAMIN TAB PO SCH (08:14)
[2016-10-25] MEDS: MAGNESIUM OXIDE 400 MG TAB PO SCH (08:14)
[2016-10-25] MEDS: PANTOprazole SOD 40 MG TAB PO SCH ×2 (08:14→20:18)
[2016-10-25] MEDS: CHOLECALCIFEROL 1000 INTER.UNIT TAB PO SCH (08:15)
[2016-10-25] MEDS: NYSTATIN SUSP 500,000 U/5 ML UDC PO SCH ×4 (08:15→20:14)
[2016-10-25] MEDS: LORAZEPAM 0.5 MG TAB PO PRN (08:18)
[2016-10-25] MEDS ORDERED: PHYTONADIONE 5 MG TAB PO ONE (12:30)
[2016-10-25] MEDS: AZITHROMYCIN 250 MG TAB PO SCH (13:20)
[2016-10-25 18:28] LABS: PROTHROMBIN TIME (PATIENT) 54.7 SECONDS (9.0-12.0)
[2016-10-25 18:31] LABS: INR 4.8 (0.9-1.1)
--- NOTE | 2016-10-25 20:33 | Progress Note ---
Internal Med Progress Note Date of Service: Oct 25, 2016. Provider Documentation: SUBJECTIVE: had 3 loose bowel movement today more tired and weak not feeling well enough to go home Son present at bedside D/w Son and pt given she is still having ongoing diarrhea she is elderly and lives alone at home , will hold off discharging her home today re evaluate and plan for discharge tomorrow if diarrhea improves OBJECTIVE: Vital Signs-as noted below Exam: General-anxious Eyes-sclera non icteric CJC-jimnjm-lzihtmwk redness, less sore Lungs-coarse breath sound , scattered wheeze Heart-regular S1/S2, no lower ext edema , no JVD Abdomen-soft, non tender Extremities-no rash or deformity Neuro-no focal deficit Lab data as noted below. ASSESSMENT & PLAN: ASTHMA EXACERBATION /BRONCHITIS Slow improvement appreciate input form Pulmonology Dr Kaila Crespo D/Mark On Zithromax Day # 4 will DC after 5th dose tomorrow on oral Prednisone 40 mg PO daily -will need slow taper Advair 1 puff 500/50 BID -pt is asked to rinse mouth afterward to prevent oral candidiasis cont Neb tx Flonase added ( home medication ) cont PPI to prevent acid reflux causing asthma exacerbation ( has large Hiatal Hernia ) C DIFF INFECTION : stool C diff positive due to broad spectrum abx use was on ABx as out pt for bronchitis , required cont ABx tx for pulmonary infection on Oral Vancomycin -needs 10 days tx cont Lactinex ORAL THRUSH: mentions of mild improvement of mouth soreness with oral nystatin due to steroid use cont oral nystatin susp 10 mg QID Hx. 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 compensated continue Lasix 80 mg daily no evidence of vol overload Cxray 10/24/16 1. No change from the prior study. 2. Cardiomegaly. 3. Trace bilateral pleural effusions and bibasilar densities suggesting subsegmental atelectasis. 4. Hiatus hernia, unchanged. -pt is encouraged to use incentive spirometry Acute Kidney Injury superimposed on CKD stage 3 resolved creatinine at baseline at baseline Hx. of Recurrent PE with hx of Factor 5 Leiden Coumadin on hold for Coagulopathy INR elevated > 5 -possible due to interaction with antibiotics Coumadin has been on hold for past 48 hrs ordered for Vit K low dose repeat Coumadin in afternoon ~4 no evidence of bleeding cont to hold coumadin follow PT/INR daily CAD s/p stent continue home medications aspirin, b-hayden Anxiety patient gets very anxious when she is short of breath added PO Ativan PRN - which is a home medication Anemia of Chronic Disease and Iron Deficiency hb stable Hiatal Hernia continue PPI BID Osteoarthritis resume Plaquenil on PO Prednisone DVT ppx INR elevated FULL CODE DISPOSITION cont PT/OT while in hospital appreciate eval stable to return home recommend home health referral made for [facility] Appreciate input form social service Discharge home in 1-2 days Medicine follow up with Dr Yoly Block Son given update at bedside Vital Signs: Date Time Temp Pulse Resp B/P Pulse Ox O2 Delivery O2 Flow Rate FiO2 10/26/16 10:51 Room Air 10/26/16 07:09 76 16 98 Room Air 10/26/16 07:00 36.7 77 18 100/67 95 Room Air 10/26/16 01:19 82 16 96 Room Air 10/25/16 23:59 Room Air 10/25/16 23:42 36.6 84 18 146/83 95 Room Air 10/25/16 19:40 89 16 96 Room Air 10/25/16 19:00 Room Air 10/25/16 15:36 Room Air 10/25/16 14:54 36.7 77 18 140/83 96 Room Air Lab Results: Results Past 24 Hours Test 10/25/16 18:05 10/26/16 05:15 Range/Units Prothrombin Time 54.7 19.4 9.0-12.0 SECONDS Prothromb Time International Ratio 4.8 1.8 0.9-1.1
[2016-10-25] MEDS: MIRTAZAPINE TAB 15 MG TAB PO SCH (20:55)
[2016-10-25] MEDS: OXYCODONE/ACETAMINOPHEN 5-325 TAB PO PRN (20:56)
[2016-10-26] VITALS (7 sets, daily range): BP systolic 100–116; BP diastolic 67–71; PULSE 76–92; TEMP 36.2–36.7; O2SAT 94–98
[2016-10-26] MEDS: ALBUT/IPRATROP 3MG/0.5MG NEB 3 ML VIAL INH SCH ×4 (01:19→19:22)
[2016-10-26 06:29] LABS: INR 1.8 (0.9-1.1); PROTHROMBIN TIME (PATIENT) 19.4 SECONDS (9.0-12.0)
--- NOTE | 2016-10-26 07:22 | PROGRESS NOTE ---
DATE: 10/26/2016 PULMONARY PROGRESS NOTE SUBJECTIVE: The patient is comfortable. States she feels much better than she did at the time of admission. Her cough is improved, it is nonproductive. She was out of bed most of the day yesterday and tolerated that well. She continues to have some stress incontinence, had C. diff in the stool but the GI tract is functioning well otherwise. From a pulmonary standpoint, she is doing well. MEDICATIONS: Reviewed. PHYSICAL EXAMINATION: VITAL SIGNS: Stable and she is afebrile, oxygen saturation is 96% on room air. She had 2 bowel movements yesterday and 1 this morning. HEENT: Unremarkable. NECK: No neck vein distention or HJR. HEART: Regular rate and rhythm, 1/6 systolic murmur heard at the apex. The valve sounds are good. LUNGS: Reveal some rhonchi bilaterally. No wheezing noted. There is no fremitus. She is considerably improved. ABDOMEN: Soft, nontender. EXTREMITIES: She has no cyanosis, clubbing or edema. LABORATORY DATA: White count was 11.93 on the . PRP on the was stable. BUN of 41, creatinine of 1.6. INR was 1.8 yesterday. IMPRESSION: 1. Asthmatic bronchitis. 2. Status post transcatheter aortic valve replacement. 3. Chronic kidney disease. RECOMMENDATIONS: At this point, the patient states she may be going home today. If not, we should check PRP to ensure that BUN and creatinine are stable over the last several days. Adjustment of the anticoagulants would be appropriate following TAVR. 2. Taper prednisone 20 mg daily and I would taper that down over about a week to 10 days. Continue on the Advair for now. Once her bronchospasm has resolved, the Advair could be discontinued. Overall, she is quite stable.
[2016-10-26] MEDS: FLUTICASONE PROPIONATE NA SPR 16 GM BTL SCH (08:24)
[2016-10-26] MEDS: CALCIUM 600MG + VIT D 400 IU TAB PO SCH ×2 (08:24→16:30)
[2016-10-26] MEDS: FLUTICASONE/SALMETEROL (ADVAIR) 500/50 INH 14 PUFF INH SCH ×2 (08:24→20:00)
[2016-10-26] MEDS: PAROXETINE 20 MG TAB PO SCH (08:25)
[2016-10-26] MEDS: NYSTATIN SUSP 500,000 U/5 ML UDC PO SCH ×4 (08:25→20:03)
[2016-10-26] MEDS: PANTOprazole SOD 40 MG TAB PO SCH ×2 (08:25→20:08)
[2016-10-26] MEDS: MAGNESIUM OXIDE 400 MG TAB PO SCH (08:25)
[2016-10-26] MEDS: LACTOBACILLUS ACIDOPHILUS (FLORANEX) TAB PO SCH ×3 (08:25→16:31)
[2016-10-26] MEDS: FUROSEMIDE 80 MG TAB PO SCH (08:25)
[2016-10-26] MEDS: MULTIVITAMIN TAB PO SCH (08:25)
[2016-10-26] MEDS: RASPBERRY SYRUP 5 ML UDP PO SCH ×4 (08:26→20:04)
[2016-10-26] MEDS: METOPROLOL SUCC 25MG EXT REL TAB PO SCH ×2 (08:26→20:09)
[2016-10-26] MEDS: VANCOMYCIN HCL 250 MG/5 ML SOLN PO SCH ×4 (08:26→20:04)
[2016-10-26] MEDS: CHOLECALCIFEROL 1000 INTER.UNIT TAB PO SCH (08:27)
[2016-10-26] MEDS: ASCORBIC ACID 500 MG TAB PO SCH (08:27)
[2016-10-26] MEDS: GUAIFENESIN/DEXTROM SYRUP 100MG/10MG 5ML UDC PO PRN ×2 (08:27→20:05)
[2016-10-26] MEDS: GUAIFENESIN 600 MG TABCR PO SCH ×2 (08:27→21:13)
[2016-10-26] MEDS: DEXAMETHASONE CONC SOLN 3.75 MG, NYSTATIN SUSP 30 ML, DiphenhydrAMINE HCL SYRUP 300 MG,... PO SCH ×10 (08:28→20:03)
[2016-10-26] MEDS: ONDANSETRON INJ 2 MG/ML 2 ML VIAL IV PRN ×2 (10:43→16:51)
[2016-10-26] MEDS: AZITHROMYCIN 250 MG TAB PO SCH (13:13)
[2016-10-26] MEDS: LORAZEPAM 0.5 MG TAB PO PRN ×2 (14:02→21:34)
[2016-10-26] MEDS ORDERED: GUAIFENESIN/CODEINE 100MG/10MG 5ML UDC PO PRN (14:15)
[2016-10-26] MEDS ORDERED: FLUTICASONE/SALMETEROL (ADVAIR) 500/50 INH 14 PUFF INH SCH (14:45)
--- NOTE | 2016-10-26 14:52 | Progress Note ---
Internal Med Progress Note Date of Service: Oct 26, 2016. Provider Documentation: SUBJECTIVE: feels more tired , weak and dehydrated today mouth is very dry having diarrhea , very worried about that says " everything I am eating going right through " no fever or chills no abdominal pain , appetite is poor continues to have non productive cough OBJECTIVE: Vital Signs-as noted below Exam: General-anxious Eyes-sclera non icteric HZC-gfilhn-lnnbmheu redness, less sore Lungs-more upper airway rhonchi, no rales Heart-regular S1/S2, no lower ext edema , no JVD Abdomen-soft, non tender Extremities-no rash or deformity Neuro-no focal deficit Lab data as noted below. ASSESSMENT & PLAN: ASTHMA EXACERBATION /BRONCHITIS Slow improvement appreciate input form Pulmonology Dr Kaila Crespo D/Mark completed 5 days course of Zithromax , discontinued today oral Prednisone dose tapered to 20 mg PO daily -will need slow taper Advair 1 puff 500/50 BID -pt is asked to rinse mouth afterward to prevent oral candidiasis cont Neb tx Flonase added ( home medication ) cont PPI to prevent acid reflux causing asthma exacerbation ( has large Hiatal Hernia ) C DIFF INFECTION : stool C diff positive due to broad spectrum abx use was on ABx as out pt for bronchitis , required cont ABx tx for pulmonary infection on Oral Vancomycin -needs 10 days tx ( ist day of therapy 10/23/16 # 4 of therapy ) still having ongoing diarrhea cont Lactinex ordered for Lactose free diet ORAL THRUSH: improvement of mouth soreness with oral nystatin due to steroid use cont oral nystatin susp 10 mg QID Hx. 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 compensated continue Lasix 80 mg daily no evidence of vol overload Cxray 10/24/16 1. No change from the prior study. 2. Cardiomegaly. 3. Trace bilateral pleural effusions and bibasilar densities suggesting subsegmental atelectasis. 4. Hiatus hernia, unchanged. -pt is encouraged to use incentive spirometry Acute Kidney Injury superimposed on CKD stage 3 resolved creatinine at baseline at baseline Hx. of Recurrent PE with hx of Factor 5 Leiden Coumadin on hold for Coagulopathy inr 3.3 _> 4.8-> 5.4 -possible due to interaction with antibiotics no evidence of bleeding Coumadin has been on hold for past 48 hrs given Vit K low dose ON 10/25/16 INR 1.8 today Coumadin resumed with lower dose cont to monitor PT/INR CAD s/p stent continue home medications aspirin, b-hayden Anxiety patient gets very anxious when she is short of breath added PO Ativan PRN - which is a home medication Anemia of Chronic Disease and Iron Deficiency hb stable Hiatal Hernia continue PPI BID Osteoarthritis resume Plaquenil on PO Prednisone DVT ppx Coumadin FULL CODE DISPOSITION cont PT/OT while in hospital appreciate eval stable to return home recommend home health referral made for [facility] Appreciate input form social service Discharge home in 1-2 days Medicine follow up with Dr Yoly Block Vital Signs: Date Time Temp Pulse Resp B/P Pulse Ox O2 Delivery O2 Flow Rate FiO2 10/26/16 15:26 36.4 90 18 116/70 94 Room Air 10/26/16 14:15 86 16 96 Room Air 10/26/16 10:51 Room Air 10/26/16 07:09 76 16 98 Room Air 10/26/16 07:00 36.7 77 18 100/67 95 Room Air 10/26/16 01:19 82 16 96 Room Air 10/25/16 23:59 Room Air 10/25/16 23:42 36.6 84 18 146/83 95 Room Air 10/25/16 19:40 89 16 96 Room Air 10/25/16 19:00 Room Air Lab Results: Results Past 24 Hours Test 10/25/16 18:05 10/26/16 05:15 Range/Units Prothrombin Time 54.7 19.4 9.0-12.0 SECONDS Prothromb Time International Ratio 4.8 1.8 0.9-1.1
[2016-10-26] MEDS: WARFARIN SOD 2.5 MG TAB PO SCH (16:30)
[2016-10-26] MEDS: MIRTAZAPINE TAB 15 MG TAB PO SCH (21:34)
[2016-10-26] MEDS: OXYCODONE/ACETAMINOPHEN 5-325 TAB PO PRN (21:35)
[2016-10-27] VITALS (8 sets, daily range): BP systolic 114–179; BP diastolic 71–83; PULSE 80–89; TEMP 36.3–36.9; O2SAT 94–99
[2016-10-27] MEDS: ALBUT/IPRATROP 3MG/0.5MG NEB 3 ML VIAL INH SCH ×4 (01:08→17:53)
[2016-10-27 06:42] LABS: HEMATOCRIT 33.8 % (37-47); MEAN CELL VOLUME 97.1 fL (80-100); MEAN CORPUSCULAR HEMOGLOBIN 31.3 pg (25-34); MEAN CORPUSCULAR HGB CONC 32.2 g/dl (32-36); MEAN PLATELET VOLUME 9.7 fL (7.4-10.4); PLATELET COUNT 342 K/uL (130-400); RED BLOOD COUNT 3.48 M/uL (4.2-5.4); WHITE BLOOD COUNT 16.25 K/uL (4.8-10.8)
[2016-10-27 06:52] LABS: INR 1.1 (0.9-1.1); PROTHROMBIN TIME (PATIENT) 12.2 SECONDS (9.0-12.0)
[2016-10-27 07:15] LABS: BUN/CREATININE RATIO 16.7 (10-20); CALCIUM 9.4 mg/dl (8.5-10.1); CREATININE 1.9 mg/dl (0.60-1.20); POTASSIUM 3.8 mmol/L (3.5-5.1)
[2016-10-27] MEDS: FLUTICASONE/SALMETEROL (ADVAIR) 500/50 INH 14 PUFF INH SCH ×2 (08:53→22:11)
[2016-10-27] MEDS: FLUTICASONE PROPIONATE NA SPR 16 GM BTL SCH (08:53)
[2016-10-27] MEDS: CALCIUM 600MG + VIT D 400 IU TAB PO SCH ×2 (08:54→17:12)
[2016-10-27] MEDS: DEXAMETHASONE CONC SOLN 3.75 MG, NYSTATIN SUSP 30 ML, DiphenhydrAMINE HCL SYRUP 300 MG,... PO SCH ×10 (08:55→20:00)
[2016-10-27] MEDS: ASPIRIN 81 MG ECTAB PO SCH (08:56)
[2016-10-27] MEDS: LACTOBACILLUS ACIDOPHILUS (FLORANEX) TAB PO SCH ×3 (08:57→17:12)
[2016-10-27] MEDS: FUROSEMIDE 80 MG TAB PO SCH (08:57)
[2016-10-27] MEDS: MULTIVITAMIN TAB PO SCH (08:58)
[2016-10-27] MEDS: MAGNESIUM OXIDE 400 MG TAB PO SCH (08:58)
[2016-10-27] MEDS: NYSTATIN SUSP 500,000 U/5 ML UDC PO SCH ×4 (09:03→22:12)
[2016-10-27] MEDS: PAROXETINE 20 MG TAB PO SCH (09:04)
[2016-10-27] MEDS: PANTOprazole SOD 40 MG TAB PO SCH ×2 (09:05→22:13)
[2016-10-27] MEDS: VANCOMYCIN HCL 250 MG/5 ML SOLN PO SCH ×4 (09:06→22:14)
[2016-10-27] MEDS: RASPBERRY SYRUP 5 ML UDP PO SCH ×4 (09:06→22:14)
[2016-10-27] MEDS: ASCORBIC ACID 500 MG TAB PO SCH (09:09)
[2016-10-27] MEDS: METOPROLOL SUCC 25MG EXT REL TAB PO SCH ×2 (09:09→22:14)
[2016-10-27] MEDS: CHOLECALCIFEROL 1000 INTER.UNIT TAB PO SCH (09:10)
[2016-10-27] MEDS: ONDANSETRON INJ 2 MG/ML 2 ML VIAL IV PRN (09:11)
[2016-10-27] MEDS: GUAIFENESIN 600 MG TABCR PO SCH ×2 (09:11→22:15)
[2016-10-27] MEDS: WARFARIN SOD 2.5 MG TAB PO SCH (15:46)
[2016-10-27] MEDS ORDERED: ALUMINUM/MAGNESIUM/SIMETH (MAALOX MAX) 30 ML UDC PO PRN (17:00)
[2016-10-27] MEDS: GUAIFENESIN/DEXTROM SYRUP 100MG/10MG 5ML UDC PO PRN (17:13)
[2016-10-27] MEDS ORDERED: WARFARIN SOD 5 MG TAB PO ONE (18:15)
--- NOTE | 2016-10-27 18:39 | Progress Note ---
Internal Med Progress Note Date of Service: Oct 27, 2016. Provider Documentation: SUBJECTIVE: had one bowel movement today -still loose stool continues to feel weak and tired worried about being dehydrated at home cough persisted , but improved concern about INR being too low OBJECTIVE: Vital Signs-as noted below Exam: General-anxious Eyes-sclera non icteric QRJ-msgxom-ujwihfcf redness, less sore Lungs-more upper airway rhonchi, no rales Heart-regular S1/S2, no lower ext edema , no JVD Abdomen-soft, non tender Extremities-no rash or deformity Neuro-no focal deficit Lab data as noted below. ASSESSMENT & PLAN: ASTHMA EXACERBATION /BRONCHITIS very Slow improvement appreciate input form Pulmonology Dr Kaila Crespo D/Mark completed 5 days course of Zithromax , discontinued today was given IV Solu Medrol oral Prednisone dose tapered to 20 mg PO daily -will need slow taper appreciate Pulmonology eval will need out pt follow up -recurrent admission with Asthma exacerbation Advair 1 puff 500/50 BID -pt is asked to rinse mouth afterward to prevent oral candidiasis cont Neb tx Flonase added ( home medication ) cont PPI to prevent acid reflux causing asthma exacerbation ( has large Hiatal Hernia ) LEUKOCYTOSIS: wbc 16 K possible due to recent IV Solu Medrol use on Prednisone taper now follow CBC C DIFF INFECTION : stool C diff positive due to broad spectrum abx use was on ABx as out pt for bronchitis , required cont ABx tx for pulmonary infection on Oral Vancomycin -needs 10 days tx ( ist day of therapy 10/23/16 # 5/10 of therapy ) on discharge Oral vancomycin dose can be reduced to 125 mg PO QID to complete rest of the therapy cont Lactinex pt complains of abdominal bloating /still having ongoing diarrhea ordered for low lactose diet PRN Maalox ORAL THRUSH: improvement of mouth soreness with oral nystatin due to steroid use cont oral nystatin susp 10 mg QID for 5-7 days Hx. 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 compensated hold Lasix 80 mg daily-for MYRTLE may need to be on lower dose of Lasix 40 mg daily on discharge no evidence of vol overload Cxray 10/24/16 1. No change from the prior study. 2. Cardiomegaly. 3. Trace bilateral pleural effusions and bibasilar densities suggesting subsegmental atelectasis. 4. Hiatus hernia, unchanged. -pt is encouraged to use incentive spirometry Acute Kidney Injury superimposed on CKD stage 3 Cr elevated 1.9 hold Lasix repeat PRP in AM avoid nephrotoxin Hx. of Recurrent PE with hx of Factor 5 Leiden Coumadin was on hold for Coagulopathy inr 3.3 _> 4.8-> 5.4 -possible due to interaction with antibiotics no evidence of bleeding given Vit K low dose ON 10/25/16 INR 1.8 -> 1 Given Coumadin 7.5 mg PO today repeat INR tomorrow cont to monitor PT/INR will need close follow up with coagulation clinic CAD s/p stent continue home medications aspirin, b-hayden Anxiety patient gets very anxious when she is short of breath added PO Ativan PRN - which is a home medication Anemia of Chronic Disease and Iron Deficiency hb stable Hiatal Hernia continue PPI BID Osteoarthritis resume Plaquenil on PO Prednisone DVT ppx Coumadin FULL CODE DISPOSITION appreciate PT/OT eval -at baseline functional status to return home recommend home health referral made for [facility] -will need to have lab draw for PT/INR monitoring Appreciate input form social service will need continued hospital stay for MYRTLE , sub therapeutic INR , diarrhea son Mekhi AngelaMatt updated on phone Medicine follow up with Dr Yoly Block Vital Signs: Date Time Temp Pulse Resp B/P Pulse Ox O2 Delivery O2 Flow Rate FiO2 10/28/16 00:00 95 Room Air 10/27/16 23:08 36.3 87 18 143/83 95 Room Air 10/27/16 20:28 85 18 95 Room Air 10/27/16 17:53 82 18 94 Room Air 10/27/16 15:50 Room Air 10/27/16 15:04 36.9 89 18 114/71 94 Room Air 10/27/16 07:50 99 Room Air 10/27/16 07:15 80 16 95 Room Air 10/27/16 07:08 36.3 81 18 179/76 99 Room Air Lab Results: Results Past 24 Hours Test 10/28/16 06:37 10/28/16 06:38 Range/Units
[2016-10-27] MEDS: MIRTAZAPINE TAB 15 MG TAB PO SCH (22:16)
[2016-10-27] MEDS: OXYCODONE/ACETAMINOPHEN 5-325 TAB PO PRN (22:29)
[2016-10-28] VITALS: O2SAT 95
[2016-10-28] MEDS ORDERED: FURO40TA3 PO (06:51)
[2016-10-28 07:21] VITALS: PULSE 81; O2SAT 97
[2016-10-28] MEDS: ALBUT/IPRATROP 3MG/0.5MG NEB 3 ML VIAL INH SCH ×3 (07:21→19:23)
[2016-10-28 07:31] VITALS: BP 149/84; PULSE 82; TEMP 36.7; O2SAT 92
[2016-10-28] MEDS: FLUTICASONE PROPIONATE NA SPR 16 GM BTL SCH (07:59)
[2016-10-28] MEDS: FLUTICASONE/SALMETEROL (ADVAIR) 500/50 INH 14 PUFF INH SCH ×2 (07:59→20:08)
[2016-10-28] MEDS: CALCIUM 600MG + VIT D 400 IU TAB PO SCH ×2 (07:59→16:25)
[2016-10-28] MEDS: NYSTATIN SUSP 500,000 U/5 ML UDC PO SCH ×4 (08:00→20:08)
[2016-10-28] MEDS: ASPIRIN 81 MG ECTAB PO SCH (08:00)
[2016-10-28] MEDS: LACTOBACILLUS ACIDOPHILUS (FLORANEX) TAB PO SCH ×3 (08:00→16:25)
[2016-10-28] MEDS: MULTIVITAMIN TAB PO SCH (08:00)
[2016-10-28] MEDS: PAROXETINE 20 MG TAB PO SCH (08:00)
[2016-10-28] MEDS: MAGNESIUM OXIDE 400 MG TAB PO SCH (08:00)
[2016-10-28] MEDS: VANCOMYCIN HCL 250 MG/5 ML SOLN PO SCH ×4 (08:01→20:08)
[2016-10-28] MEDS: PANTOprazole SOD 40 MG TAB PO SCH ×2 (08:01→20:09)
[2016-10-28] MEDS: ASCORBIC ACID 500 MG TAB PO SCH (08:01)
[2016-10-28] MEDS: RASPBERRY SYRUP 5 ML UDP PO SCH ×4 (08:01→20:08)
[2016-10-28] MEDS: METOPROLOL SUCC 25MG EXT REL TAB PO SCH ×2 (08:01→20:09)
[2016-10-28] MEDS: CHOLECALCIFEROL 1000 INTER.UNIT TAB PO SCH (08:01)
[2016-10-28] MEDS: GUAIFENESIN 600 MG TABCR PO SCH ×2 (08:01→20:09)
[2016-10-28] MEDS: DEXAMETHASONE CONC SOLN 3.75 MG, NYSTATIN SUSP 30 ML, DiphenhydrAMINE HCL SYRUP 300 MG,... PO SCH ×10 (08:06→20:00)
[2016-10-28 08:23] LABS: HEMATOCRIT 33.3 % (37-47); MEAN CORPUSCULAR HEMOGLOBIN 30.8 pg (25-34); MEAN CORPUSCULAR HGB CONC 32.1 g/dl (32-36); MEAN PLATELET VOLUME 9.3 fL (7.4-10.4); PLATELET COUNT 284 K/uL (130-400); RED BLOOD COUNT 3.47 M/uL (4.2-5.4); WHITE BLOOD COUNT 17.62 K/uL (4.8-10.8)
[2016-10-28 08:37] LABS: INR 1.5 (0.9-1.1); PROTHROMBIN TIME (PATIENT) 16.3 SECONDS (9.0-12.0)
[2016-10-28 08:55] LABS: BUN/CREATININE RATIO 18.8 (10-20); CALCIUM 9.1 mg/dl (8.5-10.1); CREATININE 1.8 mg/dl (0.60-1.20); POTASSIUM 3.6 mmol/L (3.5-5.1)
[2016-10-28] MEDS: ONDANSETRON INJ 2 MG/ML 2 ML VIAL IV PRN ×2 (13:08→13:42)
[2016-10-28] MEDS: ACETAMINOPHEN 325 MG TAB PO PRN (13:08)
[2016-10-28] MEDS: LORAZEPAM 0.5 MG TAB PO PRN (13:18)
[2016-10-28 14:18] VITALS: PULSE 81; O2SAT 96
[2016-10-28 15:28] VITALS: BP 95/57; PULSE 83; TEMP 36.5; O2SAT 93
[2016-10-28] MEDS: WARFARIN SOD 2.5 MG TAB PO SCH (16:05)
[2016-10-28 19:24] VITALS: PULSE 75; O2SAT 95
[2016-10-28] MEDS: MIRTAZAPINE TAB 15 MG TAB PO SCH (20:10)
[2016-10-28] MEDS: OXYCODONE/ACETAMINOPHEN 5-325 TAB PO PRN (20:40)
--- NOTE | 2016-10-28 21:42 | Progress Note ---
Subjective Date of Service: Oct 28, 2016. Subjective Pt evaluation today including: conversation w/ patient, physical exam, lab review, review of studies, review of inpatient medication list Saw/examined the patient in room 412 She is anxious about her condition; continues to have diarrhea cough improved; no chest pain, no SOB Problem List Medical Problems: (1) Acute kidney injury Status: Acute (2) Anticoagulated on Coumadin Status: Acute (3) Bronchitis with bronchospasm Status: Acute (4) Creatinine elevation Status: Acute (5) Dehydration Status: Acute (6) Dyspnea Status: Acute (7) Elevated troponin Status: Acute (8) Hypotension Status: Acute (9) SBO (small bowel obstruction) Status: Acute (10) Sepsis due to urinary tract infection Status: Acute Review of Systems Constitutional: No chills, No fever Respiratory: + cough, + sputum, No dyspnea at rest, No dyspnea on exertion, No hemoptysis, No shortness of breath, No wheezing Cardiac: No chest pain, No edema, No palpitations Abdomen: + diarrhea, No nausea, No pain, No vomiting Neurologic: + weakness, No balance problems, No vertigo Medications Current Inpatient Medications Medications (Trade) Dose Ordered Sig/Rosi Route Start Time Stop Time Status Last Admin Dose Admin Acetaminophen (Tylenol Tab) 650 mg Q4H PRN PO 10/17/16 17:15 11/16/16 17:14 10/28/16 13:08 650 MG Ondansetron HCl (Zofran Inj) 4 mg Q6H PRN IV 10/17/16 17:15 11/16/16 17:14 10/28/16 13:42 4 MG Albuterol/ Ipratropium (Duoneb) 3 ml Q6R INH 10/17/16 21:00 11/16/16 20:59 10/28/16 19:23 3 ML Aspirin (Ecotrin Tab) 81 mg DAILY PO 10/18/16 09:00 11/17/16 08:59 Future hold 10/28/16 08:00 81 MG Calcium/Vitamin D (Caltrate Plus Tab) 1 tab BIDM PO 10/18/16 07:30 11/17/16 07:59 10/28/16 16:25 1 TAB Magnesium Oxide (Mag-Ox Tab) 400 mg DAILY PO 10/18/16 09:00 11/17/16 08:59 10/28/16 08:00 400 MG Metoprolol Succinate (Toprol Xl Tab) 12.5 mg BID PO 10/17/16 21:00 11/16/16 20:59 10/28/16 20:09 12.5 MG Mirtazapine (Remeron Tab) 15 mg HS PO 10/17/16 21:00 11/16/16 20:59 10/28/16 20:10 15 MG Multivitamins (Multivitamin Tab) 1 tab DAILY PO 10/18/16 09:00 11/17/16 08:59 10/28/16 08:00 1 TAB Oxycodone/ Acetaminophen (Percocet 5-325mg Tab) 1 tab Q8H PRN PO 10/17/16 18:30 10/31/16 18:29 10/28/16 20:40 1 TAB Ascorbic Acid (Vitamin C Tab) 500 mg DAILY PO 10/18/16 09:00 11/17/16 08:59 10/28/16 08:01 500 MG Guaifenesin/ Dextromethorphan (Robitussin-Dm Syrup) 10 ml TID PRN PO 10/17/16 18:30 11/16/16 18:29 10/27/16 17:13 10 ML Paroxetine HCl (pAXil TAB) 40 mg DAILY PO 10/18/16 09:00 11/17/16 08:59 10/28/16 08:00 40 MG Miscellaneous Information (Order Awaiting Action) 1 ea QS N/A 10/18/16 00:00 11/17/16 00:00 Pantoprazole Sodium (Protonix Tab) 40 mg BID PO 10/17/16 21:00 11/16/16 20:59 10/28/16 20:09 40 MG Cholecalciferol (Vitamin D Tab) 1,000 inter.unit DAILY PO 10/18/16 09:00 11/17/16 08:59 10/28/16 08:01 1,000 INTER.UNIT Lorazepam (Ativan Tab) 0.5 mg Q4 PRN PO 10/18/16 09:30 11/17/16 09:29 10/28/16 13:18 0.5 MG Warfarin Sodium 2 mg DAILY@16 PO 10/18/16 16:00 11/17/16 15:59 Future Hold 10/23/16 16:19 2 MG Dexamethasone/ Nystatin/ Diphenhydramine HCl/Sucrose/ Microcrystalline Cellulose/Barcode (Decadron Conc Soln/Mycostatin Susp/Benadryl Syrup/Ora-Sweet Syrup/Ora-Plus Susp. Vehicle) BID PO 10/20/16 20:00 11/19/16 19:59 10/28/16 08:06 5 ML Menthol (Nice Jonnie) 1 jonnie PRN PRN PO 10/20/16 12:00 11/19/16 11:59 Guaifenesin (Mucinex Contr Rel Tab) 600 mg Q12 PO 10/22/16 14:00 11/21/16 13:59 10/28/16 20:09 600 MG Sodium Chloride (Will Nasal [place]) 2 sprays Q2H PRN NA 10/22/16 14:00 11/21/16 13:59 10/22/16 22:12 2 SPRAYS Lactobacillus Acidophilus (Floranex Tab) 4 tab TIDM PO 10/22/16 17:00 11/21/16 16:59 10/28/16 16:25 4 TAB Nystatin (Mycostatin Susp) 5 ml QID PO 10/22/16 17:00 11/01/16 13:59 10/28/16 20:08 5 ML Vancomycin HCl (Vancomycin Oral Soln) 250 mg QID PO 10/23/16 08:00 11/02/16 07:59 10/28/16 20:08 250 MG Raspberry (Raspberry Syrup 5ml Cup) 5 ml QID PO 10/23/16 08:00 11/06/16 07:59 10/28/16 20:08 5 ML Salmeterol Xinafoate/ Fluticasone (Advair Diskus 500/50 Inh) 1 puff BID INH 10/23/16 08:00 11/22/16 07:59 10/28/16 20:08 1 PUFF Furosemide (Lasix Tab) 20 mg DAILY PRN PO 10/23/16 19:30 11/22/16 19:29 Lorazepam (Ativan Tab) 0.5 mg HS PRN PO 10/23/16 19:30 11/22/16 19:29 Fluticasone Propionate (Flonase Nasal [place]) 2 sprays DAILY NA 10/23/16 19:30 11/22/16 19:29 10/28/16 07:59 2 SPRAYS Warfarin Sodium (Coumadin Tab) 2.5 mg DAILY@1600 PO 10/26/16 16:00 11/25/16 15:59 10/28/16 16:05 2.5 MG Codeine Phosphate/ Guaifenesin (Robitussin-AC Sugar Free Syrup) 5 ml Q6H PRN PO 10/26/16 14:15 11/25/16 14:14 10/28/16 13:18 5 ML Prednisone (PredniSONE TAB) 20 mg DAILY PO 10/27/16 08:00 11/26/16 07:59 10/28/16 08:00 20 MG Al Hydrox/Mg Hydrox/Simethicone (Maalox Max Susp) 15 ml Q6H PRN PO 10/27/16 17:00 11/26/16 16:59 10/27/16 17:13 15 ML Objective Vital Signs Date Time Temp Pulse Resp B/P Pulse Ox O2 Delivery O2 Flow Rate FiO2 10/28/16 19:24 75 18 95 Room Air 10/28/16 16:00 Room Air 10/28/16 15:28 36.5 83 20 95/57 93 Room Air 10/28/16 14:18 81 18 96 Room Air 10/28/16 11:55 Room Air 10/28/16 07:31 36.7 82 20 149/84 92 Room Air 10/28/16 07:21 81 18 97 Room Air 10/28/16 00:00 95 Room Air 10/27/16 23:08 36.3 87 18 143/83 95 Room Air Physical Exam General Appearance: no apparent distress Respiratory/Chest: no respiratory distress, no accessory muscle use, + rhonchi Cardiovascular: regular rate, rhythm, no edema, no murmur Abdomen: normal bowel sounds, non tender, soft Extremities: normal inspection, no pedal edema Neurologic/Psychiatric: no motor/sensory deficits, alert, + pertinent finding ( +anxious) Laboratory Results Last 24 Hours Test 10/28/16 08:13 White Blood Count 17.62 K/uL Red Blood Count 3.47 M/uL Hemoglobin 10.7 g/dL Hematocrit 33.3 % Mean Corpuscular Volume 96.0 fL Mean Corpuscular Hemoglobin 30.8 pg Mean Corpuscular Hemoglobin Concent 32.1 g/dl RDW Standard Deviation 53.1 fL RDW Coefficient of Variation 15.5 % Platelet Count 284 K/uL Mean Platelet Volume 9.3 fL Nucleated RBC Absolute Count (auto) 0.08 K/uL Nucleated Red Blood Cells % 0.4 % Prothrombin Time 16.3 SECONDS Prothromb Time International Ratio 1.5 Sodium Level 140 mmol/L Potassium Level 3.6 mmol/L Chloride Level 99 mmol/L Carbon Dioxide Level 32 mmol/L Anion Gap 9.0 mmol/L Blood Urea Nitrogen 34 mg/dl Creatinine 1.80 mg/dl Est Creatinine Clear Calc Drug Dose 20.4 ml/min Estimated GFR () 29.6 Estimated GFR (Non- 25.6 BUN/Creatinine Ratio 18.8 Random Glucose 83 mg/dl Calcium Level 9.1 mg/dl Assessment and Plan This is an 81 year old female with PMH of severe aortic valve stenosis s/p TAVR in May 2016, 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 diff patient positive for C. diff currently on vancomycin will complete 10 day course Acute Respiratory Failure requiring supplemental O2 in the setting of possible Asthma Exacerbation vs. Bronchitis continues to have Acute bronchitis no longer on doxy, completed course prednisone taper appreciate pulm input 10/21 will continue doxycycline for a total of 10 days prednisone taper from 40mg to 5mg (quick taper) continue home dose of Lasix continue Protonix BID 10/20 continue prednisone 40mg switch IV doxy to oral doxycycline PO Lasix Protonix BID 10/19 seems like an upper respiratory/bronchitis type picture will taper steroids down to prednisone 40mg (takes 5mg chronically, so will taper down to that) continue doxycycline nebulization as needed continue PO Lasix continue Protonix BID 10/18 patient presents with significant wheezing, productive cough, shortness of breath patient feels significant SOB overnight, given IV steroids, nebulizer treatments as needed will give one dose of IV Lasix and then add back her PO Lasix CXR shows no pneumonia, some atelectasis and a large hiatal hernia continue PPI BID continue doxycycline for possible underlying bacterial infection negative for flu Possibly a combination of CHF and upper respiratory infection Hx. 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 of Recurrent PE 10/20 INR = 2.5 continue Coumadin 10/19 hold Coumadin INR = 3.2 goal of 2-3 10/18 on long-term Coumadin INR was 1.8 on admission INR today is 2.0, continue home dose of Coumadin and monitor CAD s/p stent continue home medications aspirin, b-hayden unsure of why she is not on a statin, possibly due to muscle pain Anxiety patient gets very anxious when she is short of breath added PO Ativan PRN - which is a home medication Anemia of Chronic Disease and Iron Deficiency 10/19 Hgb ~ 11 and stable 10/18 monitor Hgb currently > 10 and stable Hiatal Hernia continue PPI BID Osteoarthritis continue Plaquenil Prednisone 40mg, taper until back to 5mg prednisone daily DVT ppx Coumadin FULL CODE
[2016-10-29] VITALS (7 sets, daily range): BP systolic 106–147; BP diastolic 64–79; PULSE 72–83; TEMP 36.3–37; O2SAT 93–97
[2016-10-29] MEDS: ALBUT/IPRATROP 3MG/0.5MG NEB 3 ML VIAL INH SCH ×4 (01:44→19:09)
[2016-10-29 07:27] LABS: HEMATOCRIT 30.9 % (37-47); MEAN CELL VOLUME 96.9 fL (80-100); MEAN CORPUSCULAR HEMOGLOBIN 30.7 pg (25-34); MEAN CORPUSCULAR HGB CONC 31.7 g/dl (32-36); MEAN PLATELET VOLUME 9.7 fL (7.4-10.4); PLATELET COUNT 266 K/uL (130-400); RED BLOOD COUNT 3.19 M/uL (4.2-5.4); WHITE BLOOD COUNT 18.38 K/uL (4.8-10.8)
[2016-10-29 07:32] LABS: INR 3.1 (0.9-1.1); PROTHROMBIN TIME (PATIENT) 34.5 SECONDS (9.0-12.0)
[2016-10-29 07:57] LABS: BUN/CREATININE RATIO 19.2 (10-20); CALCIUM 9.2 mg/dl (8.5-10.1); POTASSIUM 3.8 mmol/L (3.5-5.1)
--- NOTE | 2016-10-29 08:28 | DIAGNOSTIC IMAGING REPORT ---
CHEST 2 VIEWS ROUTINE CLINICAL HISTORY: Respiratory difficulty COMPARISON STUDY: 10/24/2016 FINDINGS: There is an air-containing retrocardiac opacity, consistent with a hiatal hernia. There is a metallic stent within the proximal ascending thoracic aorta. There are multiple old rib fractures. There are linear basilar opacities likely atelectatic. There is no lobar consolidation. There is no overt failure. There are no significant pleural effusions. The bones are osteopenic. There are multiple dual body compression deformities. IMPRESSION: Hiatal hernia. Bibasilar atelectasis. No acute findings. Electronically signed by: Austin Harman M.D. 10/29/2016 8:27 AM Dictated Date/Time: 10/29/2016 8:25 AM
[2016-10-29] MEDS: FLUTICASONE/SALMETEROL (ADVAIR) 500/50 INH 14 PUFF INH SCH ×2 (08:42→19:51)
[2016-10-29] MEDS: VANCOMYCIN HCL 250 MG/5 ML SOLN PO SCH ×4 (08:42→19:51)
[2016-10-29] MEDS: MULTIVITAMIN TAB PO SCH (08:43)
[2016-10-29] MEDS: RASPBERRY SYRUP 5 ML UDP PO SCH ×4 (08:43→19:51)
[2016-10-29] MEDS: CALCIUM 600MG + VIT D 400 IU TAB PO SCH ×2 (08:43→17:21)
[2016-10-29] MEDS: NYSTATIN SUSP 500,000 U/5 ML UDC PO SCH ×4 (08:43→19:50)
[2016-10-29] MEDS: MAGNESIUM OXIDE 400 MG TAB PO SCH (08:43)
[2016-10-29] MEDS: GUAIFENESIN 600 MG TABCR PO SCH ×2 (08:43→20:04)
[2016-10-29] MEDS: PANTOprazole SOD 40 MG TAB PO SCH ×2 (08:43→19:51)
[2016-10-29] MEDS: PAROXETINE 20 MG TAB PO SCH (08:44)
[2016-10-29] MEDS: METOPROLOL SUCC 25MG EXT REL TAB PO SCH ×2 (08:44→19:58)
[2016-10-29] MEDS: LACTOBACILLUS ACIDOPHILUS (FLORANEX) TAB PO SCH ×3 (08:44→17:20)
[2016-10-29] MEDS: DEXAMETHASONE CONC SOLN 3.75 MG, NYSTATIN SUSP 30 ML, DiphenhydrAMINE HCL SYRUP 300 MG,... PO SCH ×10 (08:45→19:56)
[2016-10-29] MEDS: CHOLECALCIFEROL 1000 INTER.UNIT TAB PO SCH (08:45)
[2016-10-29] MEDS: ASPIRIN 81 MG ECTAB PO SCH (08:45)
[2016-10-29] MEDS: ASCORBIC ACID 500 MG TAB PO SCH (08:45)
[2016-10-29] MEDS: GUAIFENESIN/DEXTROM SYRUP 100MG/10MG 5ML UDC PO PRN (08:46)
[2016-10-29] MEDS: FLUTICASONE PROPIONATE NA SPR 16 GM BTL SCH (08:46)
[2016-10-29] MEDS: OXYCODONE/ACETAMINOPHEN 5-325 TAB PO PRN (10:33)
[2016-10-29] MEDS ORDERED: CALCIUM CARBONATE 500 MG CHEWABLE PO ONE (11:15)
[2016-10-29] MEDS ORDERED: SUCRALFATE 1 GM TAB PO ONE (11:15)
[2016-10-29] MEDS: LORAZEPAM 0.5 MG TAB PO PRN (11:24)
--- NOTE | 2016-10-29 15:57 | Progress Note ---
Subjective Date of Service: Oct 29, 2016. Subjective Pt evaluation today including: conversation w/ patient, physical exam, lab review, review of studies, review of inpatient medication list Saw/examined the patient in room 412 Cough is still present, but improved Abdominal cramping persists - only one bowel movement today and it is more formed Problem List Medical Problems: (1) Acute kidney injury Status: Acute (2) Anticoagulated on Coumadin Status: Acute (3) Bronchitis with bronchospasm Status: Acute (4) Creatinine elevation Status: Acute (5) Dehydration Status: Acute (6) Dyspnea Status: Acute (7) Elevated troponin Status: Acute (8) Hypotension Status: Acute (9) SBO (small bowel obstruction) Status: Acute (10) Sepsis due to urinary tract infection Status: Acute Review of Systems Respiratory: + cough, + sputum, No dyspnea at rest, No dyspnea on exertion, No hemoptysis, No shortness of breath, No wheezing Cardiac: No chest pain Abdomen: + diarrhea (improving), + pain (cramping), No GI bleeding, No constipation, No nausea, No vomiting Heme: No abnormal bleeding/bruising Medications Current Inpatient Medications Medications (Trade) Dose Ordered Sig/Rosi Route Start Time Stop Time Status Last Admin Dose Admin Acetaminophen (Tylenol Tab) 650 mg Q4H PRN PO 10/17/16 17:15 11/16/16 17:14 10/28/16 13:08 650 MG Ondansetron HCl (Zofran Inj) 4 mg Q6H PRN IV 10/17/16 17:15 11/16/16 17:14 10/28/16 13:42 4 MG Albuterol/ Ipratropium (Duoneb) 3 ml Q6R INH 10/17/16 21:00 11/16/16 20:59 10/29/16 07:21 3 ML Aspirin (Ecotrin Tab) 81 mg DAILY PO 10/18/16 09:00 11/17/16 08:59 Future hold 10/29/16 08:45 81 MG Calcium/Vitamin D (Caltrate Plus Tab) 1 tab BIDM PO 10/18/16 07:30 11/17/16 07:59 10/29/16 08:43 1 TAB Magnesium Oxide (Mag-Ox Tab) 400 mg DAILY PO 10/18/16 09:00 11/17/16 08:59 10/29/16 08:43 400 MG Metoprolol Succinate (Toprol Xl Tab) 12.5 mg BID PO 10/17/16 21:00 11/16/16 20:59 10/29/16 08:44 12.5 MG Mirtazapine (Remeron Tab) 15 mg HS PO 10/17/16 21:00 11/16/16 20:59 10/28/16 20:10 15 MG Multivitamins (Multivitamin Tab) 1 tab DAILY PO 10/18/16 09:00 11/17/16 08:59 10/29/16 08:43 1 TAB Oxycodone/ Acetaminophen (Percocet 5-325mg Tab) 1 tab Q8H PRN PO 10/17/16 18:30 10/31/16 18:29 10/29/16 10:33 1 TAB Ascorbic Acid (Vitamin C Tab) 500 mg DAILY PO 10/18/16 09:00 11/17/16 08:59 10/29/16 08:45 500 MG Guaifenesin/ Dextromethorphan (Robitussin-Dm Syrup) 10 ml TID PRN PO 10/17/16 18:30 11/16/16 18:29 10/29/16 08:46 10 ML Paroxetine HCl (pAXil TAB) 40 mg DAILY PO 10/18/16 09:00 11/17/16 08:59 10/29/16 08:44 40 MG Miscellaneous Information (Order Awaiting Action) 1 ea QS N/A 10/18/16 00:00 11/17/16 00:00 Pantoprazole Sodium (Protonix Tab) 40 mg BID PO 10/17/16 21:00 11/16/16 20:59 10/29/16 08:43 40 MG Cholecalciferol (Vitamin D Tab) 1,000 inter.unit DAILY PO 10/18/16 09:00 11/17/16 08:59 10/29/16 08:45 1,000 INTER.UNIT Lorazepam (Ativan Tab) 0.5 mg Q4 PRN PO 10/18/16 09:30 11/17/16 09:29 10/29/16 11:24 0.5 MG Warfarin Sodium 2 mg DAILY@16 PO 10/18/16 16:00 11/17/16 15:59 Future Hold 10/23/16 16:19 2 MG Dexamethasone/ Nystatin/ Diphenhydramine HCl/Sucrose/ Microcrystalline Cellulose/Barcode (Decadron Conc Soln/Mycostatin Susp/Benadryl Syrup/Ora-Sweet Syrup/Ora-Plus Susp. Vehicle) BID PO 10/20/16 20:00 11/19/16 19:59 10/29/16 08:45 5 ML Menthol (Nice Jonnie) 1 jonnie PRN PRN PO 10/20/16 12:00 11/19/16 11:59 Guaifenesin (Mucinex Contr Rel Tab) 600 mg Q12 PO 10/22/16 14:00 11/21/16 13:59 10/29/16 08:43 600 MG Sodium Chloride ([place] Nasal [place]) 2 sprays Q2H PRN NA 10/22/16 14:00 11/21/16 13:59 10/22/16 22:12 2 SPRAYS Lactobacillus Acidophilus (Floranex Tab) 4 tab TIDM PO 10/22/16 17:00 11/21/16 16:59 10/29/16 11:52 4 TAB Nystatin (Mycostatin Susp) 5 ml QID PO 10/22/16 17:00 11/01/16 13:59 10/29/16 11:52 5 ML Vancomycin HCl (Vancomycin Oral Soln) 250 mg QID PO 10/23/16 08:00 11/02/16 07:59 10/29/16 11:52 250 MG Raspberry (Raspberry Syrup 5ml Cup) 5 ml QID PO 10/23/16 08:00 11/06/16 07:59 10/29/16 11:52 5 ML Salmeterol Xinafoate/ Fluticasone (Advair Diskus 500/50 Inh) 1 puff BID INH 10/23/16 08:00 11/22/16 07:59 10/29/16 08:42 1 PUFF Furosemide (Lasix Tab) 20 mg DAILY PRN PO 10/23/16 19:30 11/22/16 19:29 Lorazepam (Ativan Tab) 0.5 mg HS PRN PO 10/23/16 19:30 11/22/16 19:29 Fluticasone Propionate (Flonase Nasal [place]) 2 sprays DAILY NA 10/23/16 19:30 11/22/16 19:29 10/29/16 08:46 2 SPRAYS Warfarin Sodium (Coumadin Tab) 2.5 mg DAILY@1600 PO 10/26/16 16:00 11/25/16 15:59 Future hold 10/28/16 16:05 2.5 MG Codeine Phosphate/ Guaifenesin (Robitussin-AC Sugar Free Syrup) 5 ml Q6H PRN PO 10/26/16 14:15 11/25/16 14:14 10/28/16 13:18 5 ML Prednisone (PredniSONE TAB) 20 mg DAILY PO 10/27/16 08:00 11/26/16 07:59 10/29/16 08:44 20 MG Al Hydrox/Mg Hydrox/Simethicone (Maalox Max Susp) 15 ml Q6H PRN PO 10/27/16 17:00 11/26/16 16:59 10/27/16 17:13 15 ML Objective Vital Signs Date Time Temp Pulse Resp B/P Pulse Ox O2 Delivery O2 Flow Rate FiO2 10/29/16 15:34 37.0 83 16 137/79 97 10/29/16 09:00 Room Air 10/29/16 07:48 36.3 72 20 147/79 96 Room Air 10/29/16 07:21 80 16 96 Room Air 10/29/16 01:44 76 16 96 Room Air 10/29/16 00:27 36.3 79 18 106/64 93 Room Air 10/29/16 00:00 Room Air 10/28/16 19:24 75 18 95 Room Air 10/28/16 16:00 Room Air Physical Exam General Appearance: no apparent distress Respiratory/Chest: no respiratory distress, no accessory muscle use, + rhonchi Cardiovascular: regular rate, rhythm, no edema, no murmur Abdomen: non tender, soft, + abnormal bowel sounds (hyperactive) Extremities: normal inspection, no pedal edema Neurologic/Psychiatric: no motor/sensory deficits, alert, normal mood/affect Laboratory Results Last 24 Hours Test 10/29/16 07:10 White Blood Count 18.38 K/uL Red Blood Count 3.19 M/uL Hemoglobin 9.8 g/dL Hematocrit 30.9 % Mean Corpuscular Volume 96.9 fL Mean Corpuscular Hemoglobin 30.7 pg Mean Corpuscular Hemoglobin Concent 31.7 g/dl RDW Standard Deviation 53.9 fL RDW Coefficient of Variation 15.6 % Platelet Count 266 K/uL Mean Platelet Volume 9.7 fL Prothrombin Time 34.5 SECONDS Prothromb Time International Ratio 3.1 Sodium Level 142 mmol/L Potassium Level 3.8 mmol/L Chloride Level 103 mmol/L Carbon Dioxide Level 30 mmol/L Anion Gap 9.0 mmol/L Blood Urea Nitrogen 38 mg/dl Creatinine 2.00 mg/dl Est Creatinine Clear Calc Drug Dose 18.4 ml/min Estimated GFR () 26.1 Estimated GFR (Non- 22.5 BUN/Creatinine Ratio 19.2 Random Glucose 92 mg/dl Calcium Level 9.2 mg/dl Assessment and Plan This is an 81 year old female with PMH of severe aortic valve stenosis s/p TAVR in May 2016, 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 diff 10/29 plan is to discharge the patient today on vancomycin 125mg QID 10/28 patient positive for C. diff currently on vancomycin will complete 10 day course Acute Respiratory Failure requiring supplemental O2 in the setting of possible Asthma Exacerbation vs. Bronchitis 10/29 improving condition no longer requiring O2 cough persists/chest congestion persists will d/c home with prednisone taper continue Mucinex continue Advair inhaler 10/28 continues to have Acute bronchitis no longer on doxy, completed course prednisone taper appreciate pulm input 10/21 will continue doxycycline for a total of 10 days prednisone taper from 40mg to 5mg (quick taper) continue home dose of Lasix continue Protonix BID 10/20 continue prednisone 40mg switch IV doxy to oral doxycycline PO Lasix Protonix BID 10/19 seems like an upper respiratory/bronchitis type picture will taper steroids down to prednisone 40mg (takes 5mg chronically, so will taper down to that) continue doxycycline nebulization as needed continue PO Lasix continue Protonix BID 10/18 patient presents with significant wheezing, productive cough, shortness of breath patient feels significant SOB overnight, given IV steroids, nebulizer treatments as needed will give one dose of IV Lasix and then add back her PO Lasix CXR shows no pneumonia, some atelectasis and a large hiatal hernia continue PPI BID continue doxycycline for possible underlying bacterial infection negative for flu Possibly a combination of CHF and upper respiratory infection Hx. 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 10/19 continue Lasix 10/18 patient has had TAVR in May 2016 last echo in June 2016 on records showing no significant valvular disease patient is still taking high dose of Lasix Clinically "wet" sounding, so will restart this Acute Kidney Injury superimposed on CKD stage 3 10/29 creat is back up to 2.0 likely due to diarrhea as this improves her kidney function should improve outpatient blood work with PCP 10/19 creat down to 1.4 and stable 10/18 baseline creatinine around 1.3 creat on admission was 1.6 monitor and adjust medications accordingly restarted diuretics, so will check creat daily Hx. of Recurrent PE 10/20 INR = 2.5 continue Coumadin 10/19 hold Coumadin INR = 3.2 goal of 2-3 10/18 on long-term Coumadin INR was 1.8 on admission INR today is 2.0, continue home dose of Coumadin and monitor CAD s/p stent continue home medications aspirin, b-hayden unsure of why she is not on a statin, possibly due to muscle pain Anxiety patient gets very anxious when she is short of breath added PO Ativan PRN - which is a home medication Anemia of Chronic Disease and Iron Deficiency 10/19 Hgb ~ 11 and stable 10/18 monitor Hgb currently > 10 and stable Hiatal Hernia continue PPI BID Osteoarthritis continue Plaquenil Prednisone 40mg, taper until back to 5mg prednisone daily DVT ppx Coumadin FULL CODE
[2016-10-29] MEDS ORDERED: VANC1CAP19 PO (16:11)
--- NOTE | 2016-10-29 16:16 | Discharge Summary ---
Discharge Summary Date of Service Oct 29, 2016. Discharge Summary Admission Date: Oct 17, 2016 at 17:12 Discharge Date: Oct 29, 2016 Discharge Disposition: Home with services Principal Diagnosis: Acute Asthma Exacerbation C. Diff Infection Medication Reconciliation New Medications: Furosemide (Lasix) 40 Mg Tab 40 MG PO DAILY for 30 Days, #30 TAB 3 Refills Prednisone Tab (Prednisone) 10 Mg Tab 10 MG PO DAILY, #20 TAB Vancomycin Hcl (Vancocin Hcl) 125 Mg Cap 125 MG PO QID for 4 Days, #16 CAP Changed Medications: Pantoprazole Sodium (Protonix) 40 Mg Tab 1 TAB PO DAILY for 30 Days, #30 TAB 5 Refills (Changed from: Omeprazole ( Prilosec) 20 Mg Capcr 20 Mg PO BID) Continued Medications: Albuterol Sulf (Proventil 0.083% 2.5MG/3ML) 2.5 Mg/3 Ml Nebu 2.5 MG INH QID PRN for SOB/Wheezing, EA Ascorbic Acid (Vitamin C) 500 Mg Cap 500 MG PO DAILY Aspirin (Aspirin EC Low Dose) 81 Mg Ectab 81 MG PO DAILY Bisacodyl (Dulcolax) 5 Mg Tab 2 TAB PO DAILY for 1 Day, #2 TAB Calcium Carbonate (Tums) 500 Mg Chew 500 MG PO BID PRN for Heartburn Calcium/Vitamin D (Os-Ismael 500 Plus D) Tab 1 TAB PO BIDM Cholecalciferol (Vitamin D3) 2,000 Unit Cap 1 CAP PO DAILY for 30 Days, #30 CAP 3 Refills Cranberry (Vaccinium Macrocarp (Cranberry) 250 Mg Cap 200 MG PO DAILY Dextromethorphan-Guaifenesin (Mucinex Dm) 1 Tab Tab 1 TAB PO Q12 PRN for Cough for 10 Days, #20 TAB Dextromethorphan-Guaifenesin (Robitussin-Dm Syrup) 1 Syp Syp 10 ML PO TID PRN for Cough Docusate Sodium (Colace) 100 Mg Cap 1 CAP PO BID for 15 Days, #30 CAP Fluticasone Prop/Salmeterol (Advair Diskus 250/50 60 Dose) 1 Ea Aerp 1 PUFF INH BID, INHALER Furosemide (Lasix) 20 Mg Tab 1 TAB PO DAILY PRN for edema for 90 Days, #90 TAB 1 Refill Hydroxychloroquine Sulfate (Plaquenil) 200 Mg Tab 400 MG PO DAILY, TAB Iron-Vitamin C (Vitron-C) 1 Tab Tab 1 TAB PO BID Lorazepam (Lorazepam) 0.5 Mg Tab 0.5 MG PO HS PRN for Insomnia Magnesium Oxide (Mag-Ox) 400 Mg Tab 400 MG PO DAILY, TAB Metoprolol Succinate (Metoprolol Succinate ER) 25 Mg Tabcr 12.5 MG PO BID Mirtazapine (Remeron) 15 Mg Tab 1 TAB PO HS for 30 Days, #30 TAB 1 Refill Multiple Vitamin (Multivitamin) 1 Tab Tab 1 TABLET PO DAILY Ondansetron Hcl (Zofran) 4 Mg Tab 4 MG PO Q6 PRN for Nausea, TAB Oxycodone/Acetaminophen 5MG/325MG (Percocet 5MG/325MG) Tab 1 TABLET PO Q8H PRN for Pain, TAB Paroxetine (Paroxetine HCl) 40 Mg Tab 40 MG PO DAILY Potassium Chloride (Potassium Chloride Er) 10 Meq Cap 1 CAP PO DAILY for 90 Days, #90 CAP 1 Refill Senna (Senna Lax) 8.6 Mg Tab 1 TAB PO BID Warfarin Sod (Jantoven) 2 Mg Tab 2 MG PO DAILY, TAB Discontinued Medications: Prednisone (Prednisone) 5 Mg Tab 5 MG PO DAILY, TAB Admission Information HPI (per Admitting provider): 81 year old female who presents to the ER with cough and shortness of breath. Patient reports she started getting sick about one week ago. She was seen by her PCP who ordered Augmentin. Patient did not start the Augmentin until yesterday however was taking amoxicillin in the mean time. Patient did not have any improvement in her symptoms and spoke with her PCP yesterday who ordered a steroid taper however patient never picked it up from the pharmacy. Patient reports a worsening productive cough. She reports she swallows the mucous. She has had worsening shortness of breath on exertion. She has been using her nebulizer without improvement in symptoms. She also notes rhinorrhea. She reports a low grade fever of 99. She denies chest pain. No lightheadedness, dizziness, diaphoresis, or syncope. She denies abdominal pain, nausea, vomiting , or diarrhea. No urinary symptoms. In the ER, patient's CXR is clear. She is saturating well on room air. She was given IV solumedrol and neb treatment and continues to have wheezing. Physical Exam (per Admitting): General Appearance: no apparent distress Head: normocephalic Eyes: normal inspection ENT: hearing grossly normal Neck: supple, no JVD Respiratory/Chest: no respiratory distress, + decreased breath sounds, + rhonchi (anterior lung bello), + wheezing (faint, scattered, end expiratory) Cardiovascular: regular rate, rhythm, no edema, normal peripheral pulses Abdomen/GI: normal bowel sounds, non tender, soft Extremities/Musculoskelatal: normal inspection, no calf tenderness Neurologic/Psych: no motor/sensory deficits, alert, normal mood/affect, oriented x 3 Skin: normal color, warm/dry Hospital Course This is an 81 year old female with PMH of severe aortic valve stenosis s/p TAVR in May 2016, 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 diff 10/29 plan is to discharge the patient today on vancomycin 125mg QID 10/28 patient positive for C. diff currently on vancomycin will complete 10 day course Acute Respiratory Failure requiring supplemental O2 in the setting of possible Asthma Exacerbation vs. Bronchitis 10/29 improving condition no longer requiring O2 cough persists/chest congestion persists will d/c home with prednisone taper continue Mucinex continue Advair inhaler 10/28 continues to have Acute bronchitis no longer on doxy, completed course prednisone taper appreciate pulm input 10/21 will continue doxycycline for a total of 10 days prednisone taper from 40mg to 5mg (quick taper) continue home dose of Lasix continue Protonix BID 10/20 continue prednisone 40mg switch IV doxy to oral doxycycline PO Lasix Protonix BID 10/19 seems like an upper respiratory/bronchitis type picture will taper steroids down to prednisone 40mg (takes 5mg chronically, so will taper down to that) continue doxycycline nebulization as needed continue PO Lasix continue Protonix BID 10/18 patient presents with significant wheezing, productive cough, shortness of breath patient feels significant SOB overnight, given IV steroids, nebulizer treatments as needed will give one dose of IV Lasix and then add back her PO Lasix CXR shows no pneumonia, some atelectasis and a large hiatal hernia continue PPI BID continue doxycycline for possible underlying bacterial infection negative for flu Possibly a combination of CHF and upper respiratory infection Hx. 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 10/19 continue Lasix 10/18 patient has had TAVR in May 2016 last echo in June 2016 on records showing no significant valvular disease patient is still taking high dose of Lasix Clinically "wet" sounding, so will restart this Acute Kidney Injury superimposed on CKD stage 3 10/29 creat is back up to 2.0 likely due to diarrhea as this improves her kidney function should improve outpatient blood work with PCP 10/19 creat down to 1.4 and stable 10/18 baseline creatinine around 1.3 creat on admission was 1.6 monitor and adjust medications accordingly restarted diuretics, so will check creat daily Hx. of Recurrent PE 10/20 INR = 2.5 continue Coumadin 10/19 hold Coumadin INR = 3.2 goal of 2-3 10/18 on long-term Coumadin INR was 1.8 on admission INR today is 2.0, continue home dose of Coumadin and monitor CAD s/p stent continue home medications aspirin, b-hayden unsure of why she is not on a statin, possibly due to muscle pain Anxiety patient gets very anxious when she is short of breath added PO Ativan PRN - which is a home medication Anemia of Chronic Disease and Iron Deficiency 10/19 Hgb ~ 11 and stable 10/18 monitor Hgb currently > 10 and stable Hiatal Hernia continue PPI BID Osteoarthritis continue Plaquenil Prednisone 40mg, taper until back to 5mg prednisone daily DVT ppx Coumadin FULL CODE Total time spent on discharge = 49 minutes This includes examination of the patient, discharge planning, medication reconciliation, and communication with other providers. Discharge Instructions Please follow-up with Dr. Inman on October 31 @ 10:50AM * You will be prescribed vancomycin for C. diff - take this four times a day for four more days * You will be prescribed prednisone - take 20mg for 1 day, take 10mg x 3 days, then go back to taking 5mg daily * Changed Prilosec to Protonix - You may need Protonix twice a day because of your large hiatal hernia * Please continue cardiac rehab starting next week * PCP should recheck blood work for anemia and kidney function
[2016-10-29] MEDS: ONDANSETRON INJ 2 MG/ML 2 ML VIAL IV PRN (17:18)
[2016-10-29] MEDS: MIRTAZAPINE TAB 15 MG TAB PO SCH (20:04)
[2016-12-16] MEDS ORDERED: DOCU-94 PO (17:12)
[2016-12-16] MEDS ORDERED: LCTX PO (17:12)
[2016-12-16] MEDS ORDERED: PRED10TA PO (17:12)
[2016-12-16] MEDS ORDERED: LVNIS80 SQ (17:12)
[2016-12-16] MEDS ORDERED: CLC150 PO (17:12)
[2016-12-29] MEDS ORDERED: FURO-85 PO (11:48)
[2016-12-29] MEDS ORDERED: ACET325T30 PO (11:48)
[2016-12-29] MEDS ORDERED: WARF1TAB6 PO (11:48)
[2017-01-08] MEDS ORDERED: PRT40 PO (17:55)
[2017-01-08] MEDS ORDERED: CRFUDL PO (17:55)
[2017-01-08] MEDS ORDERED: FLUC100T4 PO ×2 (17:55→18:06)
[2017-02-02] MEDS ORDERED: CMD2 PO (14:38)
[2017-02-23] MEDS ORDERED: CFT250 PO (15:30)
== END 2016-10-29 20:40 | disposition home health service (06) | DRG 190 ==
LOC: ENRESERVDT → ENRESERVTM → C.EDB 13:33 → C.2T 17:12 → C.4E 10-19 15:13
PROVIDERS: ADMIT Internal Medicine; ATTEND Family Medicine
DX: J44.0 Chronic obstructive pulmonary disease with (acute) lower respiratory infection (principal); J96.00 Acute respiratory failure, unspecified whether with hypoxia or hypercapnia; N17.9 Acute kidney failure, unspecified; B37.0 Candidal stomatitis; I13.0 Hypertensive heart and chronic kidney disease with heart failure and stage 1 through stage 4 chronic kidney disease, or unspecified chronic kidney disease; A04.7 Enterocolitis due to Clostridium difficile; I25.10 Atherosclerotic heart disease of native coronary artery without angina pectoris; J44.1 Chronic obstructive pulmonary disease with (acute) exacerbation; K57.30 Diverticulosis of large intestine without perforation or abscess without bleeding; E78.5 Hyperlipidemia, unspecified; Z85.828 Personal history of other malignant neoplasm of skin; F32.9 Major depressive disorder, single episode, unspecified; N18.3 Chronic kidney disease, stage 3 (moderate); K21.9 Gastro-esophageal reflux disease without esophagitis; K44.9 Diaphragmatic hernia without obstruction or gangrene; M81.0 Age-related osteoporosis without current pathological fracture; M19.90 Unspecified osteoarthritis, unspecified site; Z95.5 Presence of coronary angioplasty implant and graft; Z80.9 Family history of malignant neoplasm, unspecified; Z83.3 Family history of diabetes mellitus; Z82.49 Family history of ischemic heart disease and other diseases of the circulatory system; Z79.82 Long term (current) use of aspirin; Z79.899 Other long term (current) drug therapy; Z79.52 Long term (current) use of systemic steroids; Z79.01 Long term (current) use of anticoagulants; F41.9 Anxiety disorder, unspecified; G47.00 Insomnia, unspecified; D63.8 Anemia in other chronic diseases classified elsewhere; R19.7 Diarrhea, unspecified; J20.8 Acute bronchitis due to other specified organisms; Z87.442 Personal history of urinary calculi; Z87.19 Personal history of other diseases of the digestive system; Z86.711 Personal history of pulmonary embolism; Z95.2 Presence of prosthetic heart valve; Z90.710 Acquired absence of both cervix and uterus; Z98.49 Cataract extraction status, unspecified eye; Z83.79 Family history of other diseases of the digestive system; K58.0 Irritable bowel syndrome with diarrhea; D50.9 Iron deficiency anemia, unspecified; Z85.89 Personal history of malignant neoplasm of other organs and systems; Z88.1 Allergy status to other antibiotic agents; Z88.3 Allergy status to other anti-infective agents; Z88.8 Allergy status to other drugs, medicaments and biological substances

== ENCOUNTER 2016-12-10 17:50 | Inpatient (IN) | payer OTHER, BC ==
[~2016-12-10] VITALS: Ht 154.9 cm; Wt 68.5 kg
[~2016-12-10 17:50] MED LIST changes: +ALBINS/ INH; -ALBU0.08 INH; +ASPEC81 PO; -BISA-16; -CHOLTAB11 PO; -CYAN500T PO; -DEXTSYP41 PO; -FRS/40 PO; +FURO40TA3 PO; -HYDR-5688 PO; +HYDR200T5 PO; -IRON20IN; -LCTX PO; -MAGN400T5 PO; -METH118C PO; +MIRT15TA PO; -ONDA4TAB4 PO; +ONDA4TAB46 PO; +OXYC-57 PO; +PANT40TA PO; -PRAM0.129 PO; -PRED-301 PO; +PRED10TA PO; -PRLSR20 PO; -PYRI100T4 PO; -RANI300C PO; +RBTDMUDL5 PO; +VANC1CAP19 PO
[2016-12-10] MEDS ORDERED: FAMOTIDINE 20MG/102 ML D5W IV STA (18:17)
[2016-12-10] MEDS ORDERED: PANTOprazole INJ 40 MG in SYRINGE 0 ML IV ONE (18:30)
--- NOTE | 2016-12-10 18:48 | EMERGENCY ROOM VISIT NOTE ---
History Report prepared by Henrique: Joseph Vasquez Under the Supervision of: Dr. Lucio Sousa D.O. First contact with patient: 18:07 Chief Complaint: ABNORMAL LABS Stated Complaint: HEADACHE, ELEVATED INR History of Present Illness The patient is an 81 year old female who presents to the Emergency Room following abnormal laboratory studies were found at her primary care physicians office, just prior to arrival. The patient states that she had been having a intermittent headache for the past two weeks and was recently diagnosed with bronchitis. She met with her PCP today to have a chest x-ray and blood work done. The chest x-ray was normal, but her laboratory studies showed an INR of 8.0 and a low hemoglobin level. She also complains of worsening fatigue and shortness of breath. She also notes having black stools recently, and claims that she just got over C-diff. She is currently on Coumadin. Source of History: patient Onset: Just prior to arrival Position: other (Global) Quality: other (Abnormal Lab) Associated Symptoms: + fatigue, + melena, + weakness Review of Systems See HPI for pertinent positives & negatives. A total of 10 systems reviewed and were otherwise negative. 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 (8) CKD (chronic kidney disease) stage 3, GFR 30-59 ml/min (9) Depression (10) Diverticulosis Colon (W/O Ment Of Hemorrhage) (11) Dyslipidemia (12) Elevated INR (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 (14) Gastroparesis (15) GERD (gastroesophageal reflux disease) (16) GIB (gastrointestinal bleeding) (17) Hiatal hernia (18) History of acute minda lesion (19) History of endometrial cancer (20) History of GI bleed (21) History of pulmonary embolism (22) IBS (irritable bowel syndrome) (23) Osteoporosis (24) Polyarthritis (25) Recurrent UTI (26) Temporal arteritis Surgical Problems: (1) Hx of cystoscopy (2) S/P left knee arthroscopy (3) S/P TAVR (transcatheter aortic valve replacement) (4) Status post cataract extraction (5) Status post coronary artery stent placement (6) Status post hysterectomy Family History Cancer Diabetes mellitus FH: cardiovascular disease MOTHER Gallbladder disease Hypertension Social History Smoking Status: Never Smoker Alcohol Use: none Drug Use: none Marital Status: Housing Status: lives alone Occupation Status: retired Current/Historical Medications Scheduled Ascorbic Acid (Vitamin C), 500 MG PO DAILY Aspirin (Aspirin EC Low Dose), 81 MG PO DAILY Calcium/Vitamin D (Os-Ismael 500 Plus D), 1 TAB PO BIDM Cholecalciferol (Vitamin D3), 1 CAP PO DAILY Docusate Sodium (Colace), 1 CAP PO DAILY Ferrous Sulfate (Ferrous Sulfate), 325 MG PO BID Fluticasone Prop/Salmeterol (Advair Diskus 250/50 60 Dose), 1 PUFF INH BID Furosemide (Lasix), 40 MG PO DAILY Lactobacillus Acidophilus (Lactinex), 1 TAB PO TID Magnesium Oxide (Mag-Ox), 400 MG PO DAILY Metoprolol Succinate (Metoprolol Succinate ER), 12.5 MG PO BID Mirtazapine (Remeron), 1 TAB PO HS Multiple Vitamin (Multivitamin), 1 TABLET PO DAILY Oxygen (Oxygen), 3 LITERS NA UD Pantoprazole Sodium (Protonix), 1 TAB PO DAILY Paroxetine (Paroxetine HCl), 40 MG PO DAILY Potassium Chloride (Potassium Chloride Er), 10 MEQ PO BID Prednisone (Prednisone), 5 MG PO DAILY Warfarin Sod (Jantoven), 2 MG PO UD Scheduled PRN Acetaminophen (Tylenol), 650 MG PO Q4 PRN for Pain Albuterol Sulf (Proventil 0.083% 2.5MG/3ML), 2.5 MG INH QID PRN for SOB/Wheezing Calcium Carbonate (Tums), 500 MG PO BID PRN for Heartburn Lorazepam (Lorazepam), 0.5 MG PO HS PRN for Insomnia Ondansetron Hcl (Zofran), 4 MG PO Q6 PRN for Nausea Oxycodone/Acetaminophen 5MG/325MG (Percocet 5MG/325MG), 1 TABLET PO Q8H PRN for Pain Allergies Coded Allergies: Cefdinir (Unverified Allergy, Unknown, RASH, 12/10/16) Clonazepam (Unverified Allergy, Unknown, ., 12/10/16) Levofloxacin (Verified Allergy, Unknown, unknown, 12/10/16) Sulfasalazine (Unverified Allergy, Unknown, ., 12/10/16) Metoclopramide (Verified Adverse Reaction, Intermediate, TREMORS, 12/10/16) Physical Exam Vital Signs Date Time Temp Pulse Resp B/P Pulse Ox O2 Delivery O2 Flow Rate FiO2 12/10/16 18:00 36.8 92 18 105/51 98 Room Air Physical Exam GENERAL: Patient is awake, alert, and in no acute distress. Patient is resting comfortably and showing no signs of anxiety FACE: There is ecchymosis of the right lower cheek, consistent with recent dental extraction. EYES: The conjunctivae are clear. The pupils are round and reactive. EARS, NOSE, MOUTH AND THROAT: The nose is without any evidence of any deformity. Mucous membranes are moist tongue is midline. TMs are clear bilaterally. There is no tenderness over the temporal arteries. NECK: The neck is nontender and supple. RESPIRATORY: Normal respiratory effort is noted there is no evidence of wheezing rhonchi. Rales notes throughout no tachypnea. CARDIOVASCULAR: Regular rate and rhythm noted. There is a systolic murmur appreciated. there no rubs or gallops normal S1 normal S2 GASTROINTESTINAL: The abdomen is soft. Bowel sounds are present in all quadrants. Abdomen is nontender MUSCULOSKELETAL/EXTREMITIES: There is no evidence of gross deformity full range of motion is noted in the hips and shoulders. Ecchymosis noted over both upper and lower extremities. SKIN: There is no obvious evidence of any rash. There are no petechiae, pallor or cyanosis noted. NEUROLOGIC: Patient is awake alert and oriented x3 strength is symmetric patellar reflexes are 2+ bilaterally RECTAL: Dark stool heme positive. Medical Decision & Procedures ER Provider Diagnostic Interpretation: Radiology results as stated below per my review and radiologist interpretation: CHEST ONE VIEW PORTABLE CLINICAL HISTORY: ABDOMINAL PAIN/GI pain COMPARISON STUDY: 12/04/2016 FINDINGS: Mild cardiomegaly. Fixed hiatal hernia. Chronic pleural and parenchymal changes bilaterally. IMPRESSION: Chronic change. No acute process. Electronically signed by: Albert Mccarthy M.D. 12/10/2016 6:46 PM Dictated Date/Time: 12/10/2016 6:44 PM Laboratory Results Test 12/10/16 18:50 Anisocytosis PRESENT Stomatocytes 1+ Erythrocyte Sedimentation Rate 40 mm/hr (0-21) Absolute Reticulocyte Count 0.13 10^6/uL (0.02-0.10) Percent Reticulocyte Count 4.9 % (0.5-2.0) Immature Reticulocyte Fraction 30.1 % (3.0-15.9) Reticulocyte Hemoglobin Content 28.2 PG (28.2-36.6) Total Bilirubin 0.3 mg/dl (0.2-1) Direct Bilirubin < 0.1 mg/dl (0-0.2) Aspartate Amino Transf (AST/SGOT) 25 U/L (15-37) Alanine Aminotransferase (ALT/SGPT) 27 U/L (12-78) Alkaline Phosphatase 80 U/L (45-117) Total Creatine Kinase 40 U/L (26-192) Creatine Kinase MB 1.0 ng/ml (0.5-3.6) Creatine Kinase MB Ratio 2.5 (0-3.0) Troponin I 0.043 ng/ml (0-0.045) C-Reactive Protein 4.21 mg/dl (0-0.29) Pro-B-Type Natriuretic Peptide 1156 pg/ml (0-1800) Total Protein 6.7 gm/dl (6.4-8.2) Albumin 2.8 gm/dl (3.4-5.0) Lipase 179 U/L (73-393) Laboratory results per my review. Medications Administered Medications (Trade) Dose Ordered Sig/Rosi Route Start Time Stop Time Status Last Admin Dose Admin Pantoprazole Sodium/Syringe (Protonix Inj/ Syringe) 10 ml @ 5 mls/min NOW ONCE IV 12/10/16 18:30 12/10/16 18:31 DC 12/10/16 19:41 5 MLS/MIN Famotidine (Pepcid 20mg/100 ml) 20 mg ONE STAT IV 12/10/16 18:17 12/10/16 18:18 DC 12/10/16 19:10 20 MG ECG Indication: SOB/dyspnea Rate (beats per minute): 79 Rhythm: normal sinus Findings: no acute ischemic change, no ectopy, other (LVH by voltage criteria) Comparison ECG Date: 10/19/2016 Change: no significant change ED Course 1808: The patient was evaluated in room C10. A complete history and physical examination were performed. 1816: Ordered Famotidine 20 mg IV. 1825: I discussed the case with Dr. Chino Skinner Hospitalist, he will evaluate the patient for further treatment. 1829: Ordered Pantoprazole 10 mL @ 5 mL/hr IV. Medical Decision Differential diagnosis: Etiologies such as infections, reactive airway disease, pneumonia, pneumothorax , COPD, CHF, cardiac ischemia, pulmonary embolism, musculoskeletal, gastrointestinal, as well as others were entertained. Nursing notes reviewed. Patient's outpatient laboratory studies were reviewed. The patient is a 81-year-old female who presented to the emergency department for an evaluation of shortness of breath with exertion. She had outpatient laboratory studies with her doctor and showed she has anemia. Her INR is also very elevated. The patient was treated with Protonix in the emergency department. She was also given an H2 hayden. She was cross matched for blood and this was ordered by me. I discussed the patient's laboratory and radiographic studies with her. She appears to have significant symptomatic anemia at this time. For this reason I discussed her case with the on-call [facility] hospitalist group. They've agreed to evaluate patient in the emergency department for further management and disposition. Consults Time Called: 1820 Consulting Physician: Dr. Chino Skinner [facility] Returned Call: 1825 I discussed the case with Dr. Chino Jc, he will evaluate the patient for further treatment. Impression Primary Impression: GI bleed Additional Impressions: Symptomatic anemia Elevated INR Scribe Attestation The scribe's documentation has been prepared under my direction and personally reviewed by me in its entirety. I confirm that the note above accurately reflects all work, treatment, procedures, and medical decision making performed by me. Departure Information Dispostion Being Evaluated By Hospitalist Referrals Myrna Inman M.D. (PCP) Patient Instructions My [facility] Problem Qualifiers Primary Impression: GI bleed
[2016-12-10 19:13] LABS: HEMATOCRIT 27.8 % (37-47); IMMATURE RETIC FRACTION 30.1 % (3.0-15.9); MEAN CELL VOLUME 102.2 fL (80-100); MEAN CORPUSCULAR HGB CONC 31.3 g/dl (32-36); MEAN PLATELET VOLUME 8.7 fL (7.4-10.4); PLATELET COUNT 438 K/uL (130-400); RED BLOOD COUNT 2.72 M/uL (4.2-5.4); RETHE 28.2 PG (28.2-36.6); WHITE BLOOD COUNT 7.19 K/uL (4.8-10.8)
[2016-12-10] MEDS ORDERED: ALBUTEROL 0.083% NEBU SOLN 3 ML VIAL INH PRN (19:15)
[2016-12-10] MEDS ORDERED: CALCIUM CARBONATE 500 MG CHEWABLE PO PRN (19:15)
[2016-12-10] MEDS ORDERED: ONDANSETRON 4 MG TAB PO PRN (19:15)
[2016-12-10] MEDS ORDERED: FERR325T5 PO (19:33)
[2016-12-10] MEDS ORDERED: MRLP17X PO (19:33)
[2016-12-10] MEDS ORDERED: LCTX PO (19:33)
[2016-12-10 19:37] LABS: PARTIAL THROMBOPLASTIN RATIO 2.6; PROTHROMBIN TIME (PATIENT) > 100.0 SECONDS (9.0-12.0)
[2016-12-10 19:44] LABS: ALKALINE PHOSPHATASE 80 U/L (45-117); ALT/SGPT 27 U/L (12-78); BLOOD UREA NITROGEN 29 mg/dl (7-18); BUN/CREATININE RATIO 17.9 (10-20); C-REACTIVE PROTEIN 4.21 mg/dl (0-0.29); CARBON DIOXIDE 28 mmol/L (21-32); CHLORIDE 104 mmol/L (98-107); GLUCOSE 126 mg/dl (70-99); SODIUM 138 mmol/L (136-145)
[2016-12-10 19:51] LABS: POTASSIUM 4.3 mmol/L (3.5-5.1)
[2016-12-10 19:53] LABS: ANISOCYTOSIS PRESENT; BASO % 0.4 %; BASO ABS # 0.03 K/uL (0-0.2); COMPLETE YES; EOS % 0.6 %; IG% 0.3 %; LYMPH % 15.9 %; LYMPH ABS # 1.14 K/uL (1.2-3.4); MONO % 10.2 %; NEUT % 72.6 %; POLYCHROMASIA 1+; STOMATOCYTE 1+
[2016-12-10 20:05] LABS: AST/SGOT 25 U/L (15-37); CKMB/CK RATIO 2.5 (0-3.0); INR > 8.0 (0.9-1.1)
[2016-12-10] MEDS ORDERED: TYL325X PO (20:14)
[2016-12-10] MEDS ORDERED: PRD5 PO (20:14)
[2016-12-10] MEDS ORDERED: OXGN (20:14)
[2016-12-10] MEDS ORDERED: PHYTONADIONE INJ 5 MG in SODIUM CHLORIDE 0.9% 50ML 50 ML IV ONE (20:15)
[2016-12-10 20:54] LABS: HEMATOCRIT 27.9 % (37-47)
[2016-12-10] MEDS ORDERED: SENNA 8.6 MG TAB PO SCH (21:00)
[2016-12-10] MEDS ORDERED: PANTOprazole INJ 40 MG in SYRINGE 0 ML IV SCH (21:00)
[2016-12-10] MEDS ORDERED: PANTOprazole INJ 80 MG in DEXTROSE 5% 100ML IV ONE (21:00)
[2016-12-10] MEDS ORDERED: NON-FORMULARY MEDICATION (Iron-Vitamin C (Vitron-C) 1 TAB) PO SCH (21:00)
[2016-12-10 21:13] VITALS: BP 142/74; PULSE 77; TEMP 36.5; Ht 154.9 cm; Wt 68.5 kg
[2016-12-10] MEDS ORDERED: PANTOprazole INJ 40 MG in DEXTROSE 5% 100ML IV SCH (21:15)
[2016-12-10 21:22] VITALS: O2SAT 99
[2016-12-10] MEDS: NSS + 20MEQ KCL 1000ML 1,000 ML IV SCH (21:50)
[2016-12-10] MEDS: METOPROLOL SUCC 25MG EXT REL TAB PO SCH (22:13)
[2016-12-10] MEDS: MIRTAZAPINE TAB 15 MG TAB PO SCH (22:13)
[2016-12-10] MEDS: LORAZEPAM 0.5 MG TAB PO PRN (22:23)
--- NOTE | 2016-12-10 22:29 | History and Physical ---
History & Physical Date & Time of Service: December 10, 2016 at 18:39 Chief Complaint: Headache, Elevated Inr Primary Care Physician: Myrna Inman M.D. History of Present Illness Source: patient, hospital records This is an 81 year old female with PMH of CAD s/p PCI, severe s/p TAVR, recurrent PE on Coumadin, anemia due to iron deficiency and CKD stage III, HTN, HL, history of GI bleed, arthritis on chronic prednisone, and other problems listed below who was sent to the ED by PCP for abnormal labs. Patient was recently admitted to [facility] in October 2016 for COPD exacerbation and C. diff infection. Prior to arrival outpatient labs showed INR 8, Hg 9, ESR >120. [employer] patient had CT head which was negative and CXR which was unremarkable. Patient reports intermittent EPSTEIN for 2 weeks in left occipital region and left and right frontal region. Pt was taking Percocet and Tylenol at home with relief. She reports associated neck pain and bilateral hand tingling. She reports black stool since she had C. diff in October 2016. Diarrhea has resolved. No bright red blood per rectum. She has small amount of blood on tissue when she blows her nose. No other bleeding. She admits to fatigue, generalized weakness, increased LEONE. She admits to occasional nausea, poor appetite, bloating. She reports left maxillary molar was removed on the right side 1 week ago but no significant bleeding or pain there. No dizziness, vision change, rhinorrhea, cough, chest pain, abdominal pain, vomiting, diarrhea, worsening edema. Not taking NSAIDs. Prior EGD 08/07/15 showed tortuous esophagus, large paraesophageal hernia, gastritis. Colonoscopy in 2012- poor prep. Past Medical/Surgical History Medical Problems: (1) Anemia Status: Chronic (2) Angiectasia Permanent Comment: on colonoscopy 05/2013 Status: Chronic (3) Aortic stenosis Permanent Comment: moderately severe by echo December 2013 Status: Chronic (4) Basal cell carcinoma Permanent Comment: s/p MOHS surgery Status: Resolved (5) Benign hypertension Status: Chronic (6) CAD (coronary artery disease) Permanent Comment: s/p RCA stent 2011 Status: Chronic (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 Status: Chronic (8) CKD (chronic kidney disease) stage 3, GFR 30-59 ml/min Status: Chronic (9) Depression Status: Chronic (10) Diverticulosis Colon (W/O Ment Of Hemorrhage) Status: Chronic (11) Dyslipidemia Status: Chronic (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, 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 Status: Chronic (13) Gastroparesis Status: Chronic (14) GERD (gastroesophageal reflux disease) Status: Chronic (15) Hiatal hernia Status: Chronic (16) History of acute minda lesion Permanent Comment: 06/2013 Status: Chronic (17) History of endometrial cancer Permanent Comment: s/p radiation and total hysterectomy Status: Chronic (18) History of GI bleed Status: Chronic (19) History of pulmonary embolism Permanent Comment: x 2 Status: Chronic (20) IBS (irritable bowel syndrome) Status: Chronic (21) Osteoporosis Status: Chronic (22) Polyarthritis Permanent Comment: on chronic prednisone Status: Chronic (23) Recurrent UTI Status: Chronic Surgical Problems: (1) Hx of cystoscopy Status: Chronic (2) S/P left knee arthroscopy Status: Chronic (3) S/P TAVR (transcatheter aortic valve replacement) Permanent Comment: due to severe aortic stenosis Status: Chronic (4) Status post cataract extraction Status: Chronic (5) Status post coronary artery stent placement Status: Chronic (6) Status post hysterectomy Status: Chronic Family History Cancer Diabetes mellitus FH: cardiovascular disease MOTHER Gallbladder disease Hypertension Social History Smoking Status: Never Smoker Drug Use: none Marital Status: Occupational Status: retired Immunizations History of Influenza Vaccine: Yes Influenza Vaccine Date: Apr 18, 2016 History of Tetanus Vaccine?: Yes Tetanus Immunization Date: Nov 27, 2008 History of Pneumococcal: Yes Pneumococcal Date: Apr 21, 2016 History of Hepatitis B Vaccine: Yes Multi-Drug Resistant Organisms History of MDRO: No Allergies Coded Allergies: Cefdinir (Unverified Allergy, Unknown, RASH, 12/10/16) Clonazepam (Unverified Allergy, Unknown, ., 12/10/16) Levofloxacin (Verified Allergy, Unknown, unknown, 12/10/16) Sulfasalazine (Unverified Allergy, Unknown, ., 12/10/16) Metoclopramide (Verified Adverse Reaction, Intermediate, TREMORS, 12/10/16) Home Medications Scheduled Ascorbic Acid (Vitamin C), 500 MG PO DAILY Aspirin (Aspirin EC Low Dose), 81 MG PO DAILY Calcium/Vitamin D (Os-Ismael 500 Plus D), 1 TAB PO BIDM Cholecalciferol (Vitamin D3), 1 CAP PO DAILY Docusate Sodium (Colace), 1 CAP PO DAILY Ferrous Sulfate (Ferrous Sulfate), 325 MG PO BID Fluticasone Prop/Salmeterol (Advair Diskus 250/50 60 Dose), 1 PUFF INH BID Furosemide (Lasix), 40 MG PO DAILY Lactobacillus Acidophilus (Lactinex), 1 TAB PO TID Magnesium Oxide (Mag-Ox), 400 MG PO DAILY Metoprolol Succinate (Metoprolol Succinate ER), 12.5 MG PO BID Mirtazapine (Remeron), 1 TAB PO HS Multiple Vitamin (Multivitamin), 1 TABLET PO DAILY Oxygen (Oxygen), 3 LITERS NA UD Pantoprazole Sodium (Protonix), 1 TAB PO DAILY Paroxetine (Paroxetine HCl), 40 MG PO DAILY Potassium Chloride (Potassium Chloride Er), 10 MEQ PO BID Prednisone (Prednisone), 5 MG PO DAILY Warfarin Sod (Jantoven), 2 MG PO UD Scheduled PRN Acetaminophen (Tylenol), 650 MG PO Q4 PRN for Pain Albuterol Sulf (Proventil 0.083% 2.5MG/3ML), 2.5 MG INH QID PRN for SOB/Wheezing Calcium Carbonate (Tums), 500 MG PO BID PRN for Heartburn Lorazepam (Lorazepam), 0.5 MG PO HS PRN for Insomnia Ondansetron Hcl (Zofran), 4 MG PO Q6 PRN for Nausea Oxycodone/Acetaminophen 5MG/325MG (Percocet 5MG/325MG), 1 TABLET PO Q8H PRN for Pain Physical Exam Vital Signs Date Time Temp Pulse Resp B/P Pulse Ox O2 Delivery O2 Flow Rate FiO2 12/10/16 18:00 36.8 92 18 105/51 98 Room Air General Appearance: + obese, + pertinent finding (pleasant alert 81 year old female) Head: normocephalic, atraumatic Eyes: normal inspection, PERRL, EOMI ENT: hearing grossly normal, pharynx normal Neck: supple, no adenopathy, no JVD, trachea midline, + pertinent finding (C- spine nontender, no pain with rotation, no meningeal sign) Respiratory/Chest: normal breath sounds, no respiratory distress, no accessory muscle use, + pertinent finding (crackles bilateral bases) Cardiovascular: regular rate, rhythm, no murmur Abdomen/GI: non tender, soft, + pertinent finding (hyperactive bowel sounds) Extremities/Musculoskelatal: no calf tenderness, + pertinent finding (trace pretibial edema bilaterally) Neurologic/Psych: no motor/sensory deficits, alert, normal mood/affect, oriented x 3, + pertinent finding (no facial droop, no dysarthria) Skin: warm/dry, + pertinent finding (ecchymosis on the face (from dental surgery 1 week ago) and scattered on the extremities) Diagnostics Laboratory Results Results Past 24 Hours Test 12/10/16 18:16 Range/Units Creatine Kinase MB Ratio 0-3.0 Diagnostic Radiology CHEST ONE VIEW PORTABLE CLINICAL HISTORY: ABDOMINAL PAIN/GI pain COMPARISON STUDY: 12/04/2016 FINDINGS: Mild cardiomegaly. Fixed hiatal hernia. Chronic pleural and parenchymal changes bilaterally. IMPRESSION: Chronic change. No acute process. EKG NSR, no ST or T wave abnormality Impression Assessment and Plan Acute Blood loss Anemia ,complicated by use of Coumadin with High INR Reports of melena; stool is dark heme positive on ER provider's exam Patient on Coumadin with supratherapeutic INR (8 on outpatient lab) Hg was 9.0 today as outpatient -> 8.7 in ER; baseline 11's-12's due to iron deficiency anemia and anemia of CKD Hemodynamically stable Will give IV vitamin K and hold Coumadin IV Protonix drip Type and hold for now Monitor H/H and INR Consult GI HEADACHE Question of temporal arteritis- noted to have extremely elevated ESR (>120) on outpatient labs; ESR [address] head negative as outpatient Will give prednisone 60 mg x 1 and consider continuing smaller dose if clinically a lot better C/o neck pain and tingling in the hands; no focal deficit or meningeal sign on exam; consider c-spine x-ray HX SEVERE AORTIC STENOSIS, S/P 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 There is severe concentric left ventricular hypertrophy. There is severe calcific aortic valve stenosis. Mild aortic regurgitation. There is mild to moderate tricuspid regurgitation. Grade I diastolic dysfunction, (abnormal relaxation pattern). Clinically euvolemic CXR- no evidence of acute failure Lasix held for now Cardiology consulted CAD S/P PCI TO RCA 2011 Denies chest pain Aspirin held for GIB/ anemia Continue beta hayden H/O RECURRENT PE Hold Coumadin for supratherapeutic INR, anemia, GIB CKD STAGE III Creat is 1.6; baseline trended up over past 6 months from 1.2-> 1.5 Monitor renal function ASTHMA Not in acute exacerbation Continue home inhalers CHRONIC RESPIRATORY FAILURE Currently saturating well on RA Continue home O2 2 liters NC HS and PRN OSTEOARTHRITIS On chronic prednisone 5 mg daily ANXIETY Continue home medications DVT PROPHYLAXIS Coumadin held for supratherapeutic INR, anemia, GIB SCD's DISPOSITION Lives with Follows with Dr. Inman for primary care Patient seen in collaboration with Dr. Magana. Please see his addendum. Attending Addendum: The patient was seen and examined Admitted from Doctors office with severe headache ,weakness and very High ESR Also noted to have Low Hb and stool positive for blood S/P AVR on Coumadin O/E Anxious otherwise no distress Hemodynamically stable Chest-clear Heart-regular,2/6 ESM AA Abdomen-benign Extremities-trace edema bilaterally Labs and Imaging studies were reviewed Agree with the assessment and plan. Dr Bear Magana
[2016-12-10 23:53] VITALS: BP 115/74; PULSE 75; TEMP 36.4; O2SAT 93
[2016-12-11] VITALS (9 sets, daily range): BP systolic 91–171; BP diastolic 57–88; PULSE 72–93; TEMP 36–36.6; O2SAT 93–100
[2016-12-11 02:05] LABS: HEMATOCRIT 25.1 % (37-47)
[2016-12-11 05:48] LABS: HEMATOCRIT 28.5 % (37-47); MEAN CELL VOLUME 102.5 fL (80-100); MEAN CORPUSCULAR HEMOGLOBIN 31.3 pg (25-34); MEAN CORPUSCULAR HGB CONC 30.5 g/dl (32-36); PLATELET COUNT 484 K/uL (130-400); RED BLOOD COUNT 2.78 M/uL (4.2-5.4); WHITE BLOOD COUNT 5.49 K/uL (4.8-10.8)
[2016-12-11 05:57] LABS: INR 1.8 (0.9-1.1); PROTHROMBIN TIME (PATIENT) 19.8 SECONDS (9.0-12.0)
[2016-12-11 06:18] LABS: BUN/CREATININE RATIO 17.8 (10-20); CREATININE 1.6 mg/dl (0.60-1.20); MAGNESIUM 2.2 mg/dl (1.8-2.4); POTASSIUM 4.3 mmol/L (3.5-5.1)
[2016-12-11 06:19] LABS: PHOSPHORUS 4.2 mg/dl (2.5-4.9)
[2016-12-11 06:28] LABS: CALCIUM 9.5 mg/dl (8.5-10.1)
--- NOTE | 2016-12-11 08:13 | Clinical Documentation Query ---
QUERY 1 OF [address] DELGADO, In your clinical opinion is this patient being managed for: ( + ) Hemorrhagic disorder due to Coumadin, causing GI bleed ( ) Other explanation of clinical findings (Please Explain) ( ) Unable to determine (Please Define) ( ) Need to Discuss ( ) Not Agree The medical record reflects the following clinical findings, treatment, and risk factors. Clinical Indicators: 81 yo female presenting with GI bleed and supratherapeutic INR (>8.0). Pt noted to be chronically treated with coumadin due to recurrent PE's. Treatment:tele monitoring, IV vitamin K, hold coumadin, IV fluids, IV protonix, monitor H/H and INR, GI and cardiology consults, type and screen, Risk Factors: supratherapeutic INR, coumadin therapy QUERY 2 OF 3 In your clinical opinion is this patient being managed for: ( + ) Acute blood loss anemia ( ) Other explanation of clinical findings (Please Explain) ( ) Unable to determine (Please Define) ( ) Need to Discuss ( ) Not Agree The medical record reflects the following clinical findings, treatment, and risk factors. Clinical Indicators: Pt presented with Hgb 8.7/Hct 27.8 compared to 9.8-10.9 range in late October 2016. Heme+ stools. Treatment: IV vitamin K, hold coumadin, IV protonix, IV pepcid, IV fluids, monitor H/H and INR, consult GI Risk Factors: supratherapeutic INR, GI bleed QUERY 3 OF 3 In your clinical opinion is this patient being managed for: ( + ) Chronic preserved EF CHF due to valvular heart disease ( ) Other explanation of clinical findings (Please Explain) ( ) Unable to determine (Please Define) ( ) Need to Discuss ( ) Not Agree The medical record reflects the following clinical findings, treatment, and risk factors. 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 ECHO from November 2015 showed EF of 65-70% with grade I diastolic dysfunction. Treatment:home medications include lasix (currently on hold), and toprol xl. Cardiology consult. Risk Factors: CKD stage III, HTN, age, COPD, CAD, aortic stenosis Please clarify and document your clinical opinion in the progress notes and discharge summary. Terms such as "probable", "suspected", "likely", "questionable", "possible", or "still to be ruled out" are acceptable. IF IN AGREEMENT, YOU MUST DOCUMENT ABOVE DIAGNOSTIC STATEMENT IN DAILY PROGRESS NOTES AND DISCHARGE SUMMARY. This document is not part of the patient's record. Thank You, Letitia Aguero, RN [phone]
[2016-12-11] MEDS: FLUTICASONE/SALMETEROL 250/50 (ADVAIR) 14 PUFF/1 INHALER INH SCH ×2 (08:44→20:04)
[2016-12-11] MEDS: MAGNESIUM OXIDE 400 MG TAB PO SCH (08:44)
[2016-12-11] MEDS: MULTIVITAMIN TAB PO SCH (08:44)
[2016-12-11] MEDS: DOCUSATE SODIUM 100 MG CAP PO SCH ×2 (08:44→20:04)
[2016-12-11] MEDS: METOPROLOL SUCC 25MG EXT REL TAB PO SCH ×2 (08:44→20:05)
[2016-12-11] MEDS: CALCIUM 600MG + VIT D 400 IU TAB PO SCH ×2 (08:45→16:32)
[2016-12-11] MEDS: CHOLECALCIFEROL 1000 INTER.UNIT TAB PO SCH (08:45)
[2016-12-11] MEDS: PAROXETINE 20 MG TAB PO SCH (08:45)
--- NOTE | 2016-12-11 08:58 | Gastrointestinal Consultation ---
Gastrointestinal Consultation Date of Consultation: December 11, 2016 Consulting Physician: Nabeel Reason for Consultation: report of melena History of Present Illness Patient is a 81 year old female w/ PMH significant for angiectasia of colon, HTN , CAD, CHF, depression, diverticulosis, hyperlipidemia, GERD, and others listed below who presented to the ED at the suggestion of PCP after she had labs ran after report of EPSTEIN. INR > 8. GI was consulted for reported history of melena. Ms. Conley was seen as an outpatient by myself on 11/19/18 for suspected C.diff. At this time, she was having semi-formed to formed stools 3-4 times daily without any black/bloody stools or abdominal cramping. Repeat stool cultures and c.diff were checked and negative. She was seen and evaluated today. She reports since our office visit she has been feeling well. She moves her bowels between once and twice daily. Her stools alternate between formed and semi-formed. No loose stools. She tells me her stools are dark brown in color. Denies any black, or dark tarry/sticky stools. 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 no NSAIDS chronic steroid use warfarin and aspirin use PPI 40 daily EGD 08/07/15: Tortuous esophagus. Large paraesophageal hernia. Gastritis. Biopsied. Normal duodenal bulb and 2nd part of the duodenum. Colonoscopy 06/02/13: poor prep - encouraged 6 month follow up, this did not occur Past Medical/Surgical History Medical Problems: (1) Acute kidney injury Status: Acute (2) Anticoagulated on Coumadin Status: Acute (3) Bronchitis with bronchospasm Status: Acute (4) Creatinine elevation Status: Acute (5) Dehydration Status: Acute (6) Dyspnea Status: Acute (7) GI bleed Status: Acute (8) Hypotension Status: Acute (9) SBO (small bowel obstruction) Status: Acute (10) Sepsis due to urinary tract infection Status: Acute (11) Symptomatic anemia Status: Acute Past Medical History: polyarthritis, PE, dyslipidemia, osteoporosis, malignant neoplasm of uterus, IBS , HH, GERD, esophageal stricture, diverticulosis, depression, CHF, CAD, HTN, gastroparesis Past Surgical History: colonoscopy x 3, EGD x 6, total hysterectomy , aortic valve replacement 2015, cataract removal 2008, knee arthroscopy 2013, coronary angiography w/ heart cath 2016 Family History Cancer Diabetes mellitus FH: cardiovascular disease MOTHER Gallbladder disease Hypertension Social History Smoking Status: Never Smoker Alcohol Use: none Drug Use: none Marital Status: Housing Status: lives alone Occupation Status: retired Allergies Coded Allergies: Cefdinir (Unverified Allergy, Unknown, RASH, 12/10/16) Clonazepam (Unverified Allergy, Unknown, ., 12/10/16) Levofloxacin (Verified Allergy, Unknown, unknown, 12/10/16) Sulfasalazine (Unverified Allergy, Unknown, ., 12/10/16) Metoclopramide (Verified Adverse Reaction, Intermediate, TREMORS, 12/10/16) Current Medications Home Meds and Scripts Medications Dose Route/Sig Max Daily Dose Days Date Category Dose Instructions Tylenol (Acetaminophen) 325 Mg Tab 650 Mg PO Q4 PRN 12/10/16 Reported Oxygen Gas 3 Liters NA UD 12/10/16 Reported 3 liters HS and PRN Prednisone 5 Mg Tab 5 Mg PO DAILY 12/10/16 Reported Ferrous Sulfate 325 Mg Tab 325 Mg PO BID 12/10/16 Reported Lactinex (Lactobacillus Acidophilus) Tab 1 Tab PO TID 12/10/16 Reported Lasix (Furosemide) 40 Mg Tab 40 Mg PO DAILY 30 10/28/16 Rx Protonix (Pantoprazole Sodium) 40 Mg Tab 1 Tab PO DAILY 30 10/21/16 Rx Aspirin EC Low Dose (Aspirin) 81 Mg Ectab 81 Mg PO DAILY 10/17/16 Reported Percocet 5MG/325MG (Oxycodone/Acetaminophen) Tab 1 Tablet PO Q8H PRN 10/17/16 Reported Remeron (Mirtazapine) 15 Mg Tab 1 Tab PO HS 30 10/17/16 Reported Zofran (Ondansetron HCl) 4 Mg Tab 4 Mg PO Q6 PRN 10/17/16 Reported Proventil 0.083% 2.5MG/3ML (Albuterol Sulf) 2.5 Mg/3 Ml Nebu 2.5 Mg INH QID PRN 10/17/16 Reported Vitamin C (Ascorbic Acid) 500 Mg Cap 500 Mg PO DAILY 08/29/16 Reported Mag-Ox (Magnesium Oxide) 400 Mg Tab 400 Mg PO DAILY 08/29/16 Reported Vitamin D3 (Cholecalciferol) 2,000 Unit Cap 1 Cap PO DAILY 30 1/27/17 Reported Jantoven (Warfarin Sodium) 2 Mg Tab 2 Mg PO UD 07/16/16 Reported Take 1 mg by mouth on Thursday, Thursday, Thursday. Take 2 mg by mouth on all other days. Tums (Calcium Carbonate) 500 Mg Chew 500 Mg PO BID PRN 01/08/16 Reported Potassium Chloride Er (Potassium Chloride) 10 Meq Cap 10 Meq PO BID 90 01/08/16 Reported Colace (Docusate Sodium) 100 Mg Cap 1 Cap PO DAILY 15 01/08/16 Reported Advair Diskus 250/50 60 Dose (Fluticasone Prop/Salmeterol) 1 Ea Aerp 1 Puff INH BID 07/31/15 Reported Paroxetine HCl (Paroxetine) 40 Mg Tab 40 Mg PO DAILY 07/31/15 Reported Metoprolol Succinate ER (Metoprolol Succinate) 25 Mg Tabcr 12.5 Mg PO BID 02/04/15 Reported Os-Ismael 500 Plus D (Calcium/Vitamin D) Tab 1 Tab PO BIDM 12/09/14 Reported Lorazepam 0.5 Mg Tab 0.5 Mg PO HS PRN 12/07/12 Reported Multivitamin (Multiple Vitamin) 1 Tab Tab 1 Tablet PO DAILY 12/07/12 Reported Review of Systems Constitutional: No chills, No fever Respiratory: No cough, No shortness of breath Cardiac: No chest pain, No edema Abdomen: No GI bleeding, No diarrhea, No nausea, No pain, No vomiting Physical Exam Date Time Temp Pulse Resp B/P Pulse Ox O2 Delivery O2 Flow Rate FiO2 12/11/16 07:24 36.3 77 18 127/78 93 Room Air 12/11/16 04:04 36.5 72 20 118/76 94 Room Air 12/11/16 04:00 94 Room Air 12/11/16 00:00 93 Room Air 12/10/16 23:53 36.4 75 22 115/74 93 Room Air 12/10/16 21:22 99 Room Air 12/10/16 21:13 36.5 77 20 142/74 12/10/16 20:28 82 18 135/81 94 12/10/16 19:10 82 18 129/67 97 Room Air 12/10/16 18:00 36.8 92 18 105/51 98 Room Air General Appearance: no apparent distress Eyes: PERRL ENT: hearing grossly normal Respiratory/Chest: normal breath sounds (but diminished at bases), no respiratory distress, no accessory muscle use, + crackles Cardiovascular: regular rate, rhythm, no gallop, no JVD, no murmur Abdomen: normal bowel sounds, non tender, soft, no organomegaly, no pulsatile mass Neurologic/Psych: alert, normal mood/affect, oriented x 3 Skin: normal color, no jaundice, warm/dry, + pertinent finding (bruise on chin) Laboratory Results Last 24 Hours Test 12/10/16 18:50 12/10/16 20:45 12/11/16 01:55 12/11/16 05:13 White Blood Count 7.19 K/uL 5.49 K/uL Red Blood Count 2.72 M/uL 2.78 M/uL Hemoglobin 8.7 g/dL 8.7 g/dL 7.9 g/dL 8.7 g/dL Hematocrit 27.8 % 27.9 % 25.1 % 28.5 % Mean Corpuscular Volume 102.2 fL 102.5 fL Mean Corpuscular Hemoglobin 32.0 pg 31.3 pg Mean Corpuscular Hemoglobin Concent 31.3 g/dl 30.5 g/dl Platelet Count 438 K/uL 484 K/uL Mean Platelet Volume 8.7 fL 9.0 fL Neutrophils (%) (Auto) 72.6 % Lymphocytes (%) (Auto) 15.9 % Monocytes (%) (Auto) 10.2 % Eosinophils (%) (Auto) 0.6 % Basophils (%) (Auto) 0.4 % Neutrophils # (Auto) 5.23 K/uL Lymphocytes # (Auto) 1.14 K/uL Monocytes # (Auto) 0.73 K/uL Eosinophils # (Auto) 0.04 K/uL Basophils # (Auto) 0.03 K/uL RDW Standard Deviation 63.7 fL 62.9 fL RDW Coefficient of Variation 17.0 % 16.8 % Immature Granulocyte % (Auto) 0.3 % Immature Granulocyte # (Auto) 0.02 K/uL Nucleated RBC Absolute Count (auto) 0.03 K/uL 0.02 K/uL Nucleated Red Blood Cells % 0.4 % 0.4 % Polychromasia 1+ Anisocytosis PRESENT Stomatocytes 1+ Erythrocyte Sedimentation Rate 40 mm/hr Absolute Reticulocyte Count 0.13 10^6/uL Percent Reticulocyte Count 4.9 % Immature Reticulocyte Fraction 30.1 % Reticulocyte Hemoglobin Content 28.2 PG Prothrombin Time > 100.0 SECONDS 19.8 SECONDS Prothromb Time International Ratio > 8.0 1.8 Activated Partial Thromboplast Time 68.3 SECONDS Partial Thromboplastin Ratio 2.6 Sodium Level 138 mmol/L 138 mmol/L Potassium Level 4.3 mmol/L 4.3 mmol/L Chloride Level 104 mmol/L 103 mmol/L Carbon Dioxide Level 28 mmol/L 26 mmol/L Anion Gap 6.0 mmol/L 9.0 mmol/L Blood Urea Nitrogen 29 mg/dl 29 mg/dl Creatinine 1.60 mg/dl 1.60 mg/dl Est Creatinine Clear Calc Drug Dose 23.4 ml/min 23.3 ml/min Estimated GFR () 34.2 34.2 Estimated GFR (Non- 29.5 29.5 BUN/Creatinine Ratio 17.9 17.8 Random Glucose 126 mg/dl 156 mg/dl Calcium Level 9.0 mg/dl 9.5 mg/dl Total Bilirubin 0.3 mg/dl Direct Bilirubin < 0.1 mg/dl Aspartate Amino Transf (AST/SGOT) 25 U/L Alanine Aminotransferase (ALT/SGPT) 27 U/L Alkaline Phosphatase 80 U/L Total Creatine Kinase 40 U/L Creatine Kinase MB 1.0 ng/ml Creatine Kinase MB Ratio 2.5 Troponin I 0.043 ng/ml C-Reactive Protein 4.21 mg/dl Pro-B-Type Natriuretic Peptide 1156 pg/ml Total Protein 6.7 gm/dl Albumin 2.8 gm/dl Lipase 179 U/L Phosphorus Level 4.2 mg/dl Magnesium Level 2.2 mg/dl Test 12/11/16 08:32 Hemoglobin 8.3 g/dL Hematocrit 26.0 % Impression Patient is a 81 year old female with report of melena with INR > 8. Today she tells me stools have been brown. Moving semi-formed to formed stools once daily. No abdominal pain. No upper GI symptoms. History of melena likely secondary to Coumadin toxicity Plan Reverse INR Hold Coumadin PPI BID - keep at discharge Monitor for S/S of bleeding Monitor H&H transfuse as needed GI to sign off. Please call with any questions or concerns. I saw and evaluated the patient. Gastroenterology as consult question of melena in the setting of an INR of over 8. She does have a history of irritable bowel syndrome and is followed by one of the providers in my clinic. At the present time she notes having brown formed stool. Physical examination Multiple petechia noted over the face arms and legs Impression: Patient with a history of excessive anticoagulation and antiplatelet use which appears to result in melena. The patient's symptoms appear improved. I would recommend that she undergo a repeat colonoscopy in the near future as this was due over 6 months ago. We'll make arrangements for this as an outpatient. During the same setting we will plan to do an upper endoscopy for her epigastric discomfort.
[2016-12-11] MEDS ORDERED: BISACODYL 5 MG TABEC PO SCH (09:00)
[2016-12-11] MEDS ORDERED: HYDROXYCHLOROQUINE SULFATE 200 MG TAB PO SCH (09:00)
[2016-12-11] MEDS ORDERED: CRANBERRY PO SCH (09:00)
[2016-12-11] MEDS: NSS + 20MEQ KCL 1000ML 1,000 ML IV SCH (10:58)
--- NOTE | 2016-12-11 14:33 | Progress Note ---
Medicine Progress Note Date & Time of Visit: December 11, 2016 at 14:21. Subjective patient seen sitting up in bed denies melena/hematochezia, abdominal pain, nausea/vomiting no chest pain, dyspnea, palpitations right sided headache improved compared to yesterday no changes with vision, arm paresthesias no other symptoms Objective Last 8 Hrs Date Time Temp Pulse Resp B/P Pulse Ox O2 Delivery O2 Flow Rate FiO2 12/11/16 12:00 Room Air 12/11/16 11:23 36.6 75 18 91/57 96 Room Air 12/11/16 08:00 Room Air 12/11/16 07:24 36.3 77 18 127/78 93 Room Air Physical Exam: General- oriented x 3, not in distress, speaks in sentences with no effort Head- atraumatic Eyes- EOMI, anicteric ENT- oropharynx clear Neck- supple, no JVD, no adenopathy, no thyromegaly no bruits appreciated Lungs- clear breath sounds bilaterally Heart- normal rate, regular rhythm; no murmurs Abdomen- normal bowel sounds, soft, nontender, Extremities- trace lower leg edema, no calf tenderness; peripheral pulses intact Neuro- alert, oriented x 3; no gross focal deficits Skin- warm & dry Laboratory Results: Last 24 Hours Test 12/10/16 18:50 12/10/16 20:45 12/11/16 01:55 12/11/16 05:13 White Blood Count 7.19 K/uL 5.49 K/uL Red Blood Count 2.72 M/uL 2.78 M/uL Hemoglobin 8.7 g/dL 8.7 g/dL 7.9 g/dL 8.7 g/dL Hematocrit 27.8 % 27.9 % 25.1 % 28.5 % Mean Corpuscular Volume 102.2 fL 102.5 fL Mean Corpuscular Hemoglobin 32.0 pg 31.3 pg Mean Corpuscular Hemoglobin Concent 31.3 g/dl 30.5 g/dl Platelet Count 438 K/uL 484 K/uL Mean Platelet Volume 8.7 fL 9.0 fL Neutrophils (%) (Auto) 72.6 % Lymphocytes (%) (Auto) 15.9 % Monocytes (%) (Auto) 10.2 % Eosinophils (%) (Auto) 0.6 % Basophils (%) (Auto) 0.4 % Neutrophils # (Auto) 5.23 K/uL Lymphocytes # (Auto) 1.14 K/uL Monocytes # (Auto) 0.73 K/uL Eosinophils # (Auto) 0.04 K/uL Basophils # (Auto) 0.03 K/uL RDW Standard Deviation 63.7 fL 62.9 fL RDW Coefficient of Variation 17.0 % 16.8 % Immature Granulocyte % (Auto) 0.3 % Immature Granulocyte # (Auto) 0.02 K/uL Nucleated RBC Absolute Count (auto) 0.03 K/uL 0.02 K/uL Nucleated Red Blood Cells % 0.4 % 0.4 % Polychromasia 1+ Anisocytosis PRESENT Stomatocytes 1+ Erythrocyte Sedimentation Rate 40 mm/hr Absolute Reticulocyte Count 0.13 10^6/uL Percent Reticulocyte Count 4.9 % Immature Reticulocyte Fraction 30.1 % Reticulocyte Hemoglobin Content 28.2 PG Prothrombin Time > 100.0 SECONDS 19.8 SECONDS Prothromb Time International Ratio > 8.0 1.8 Activated Partial Thromboplast Time 68.3 SECONDS Partial Thromboplastin Ratio 2.6 Sodium Level 138 mmol/L 138 mmol/L Potassium Level 4.3 mmol/L 4.3 mmol/L Chloride Level 104 mmol/L 103 mmol/L Carbon Dioxide Level 28 mmol/L 26 mmol/L Anion Gap 6.0 mmol/L 9.0 mmol/L Blood Urea Nitrogen 29 mg/dl 29 mg/dl Creatinine 1.60 mg/dl 1.60 mg/dl Est Creatinine Clear Calc Drug Dose 23.4 ml/min 23.3 ml/min Estimated GFR () 34.2 34.2 Estimated GFR (Non- 29.5 29.5 BUN/Creatinine Ratio 17.9 17.8 Random Glucose 126 mg/dl 156 mg/dl Calcium Level 9.0 mg/dl 9.5 mg/dl Total Bilirubin 0.3 mg/dl Direct Bilirubin < 0.1 mg/dl Aspartate Amino Transf (AST/SGOT) 25 U/L Alanine Aminotransferase (ALT/SGPT) 27 U/L Alkaline Phosphatase 80 U/L Total Creatine Kinase 40 U/L Creatine Kinase MB 1.0 ng/ml Creatine Kinase MB Ratio 2.5 Troponin I 0.043 ng/ml C-Reactive Protein 4.21 mg/dl Pro-B-Type Natriuretic Peptide 1156 pg/ml Total Protein 6.7 gm/dl Albumin 2.8 gm/dl Lipase 179 U/L Phosphorus Level 4.2 mg/dl Magnesium Level 2.2 mg/dl Test 12/11/16 08:32 Hemoglobin 8.3 g/dL Hematocrit 26.0 % Assessment & Plan 81 year old female with history of CHF, CAD, TAVR, PE on coumadin, Arthritis on Chronic Prednisone, presenting with abnormal labs. Acute Blood loss Anemia in the setting of Supratherapeutic INR possible underlying Upper GI Bleed Reports of melena; stool is dark heme positive on ER provider's exam Patient on Coumadin with supratherapeutic INR (8 on outpatient lab) Hg was 9.0 today as outpatient -> 8.7 in ER; baseline 11's-12's due to iron deficiency anemia and anemia of CKD -- given Vitamin K coumadin held -- INR today 1.8 from > 8 Hg 8.3 frm 8.7 no melena today -- evaluated by GI, EGD not recommended at this time -- placed on Protonix drip, change to Protonix BI hold coumadin and Aspirin today monitor Hg -- will consult Hematology re: need for chronic anticoagulation (further details noted below) HISTORY OF PE - 1st episode 2005: seen by Dr. 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 - 2nd episode 2008: spontaneous (based on history), coumadin then resumed since - since then, no recurrence PE/DVT - question whether patient can discontinue coumadin at this point - will consult Hematology HEADACHE Question of temporal arteritis- noted to have extremely elevated ESR (>120) on outpatient labs; ESR [address] head negative as outpatient given prednisone 60 mg yesterday - headache improving patient reports some tenderness on the right temporal region on palpation will consult Neurology HX SEVERE AORTIC STENOSIS, S/P 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 There is severe concentric left ventricular hypertrophy. There is severe calcific aortic valve stenosis. Mild aortic regurgitation. There is mild to moderate tricuspid regurgitation. Grade I diastolic dysfunction, (abnormal relaxation pattern). -- euvolemic -- BP on the lower side hold Lasix for today --Cardiology consulted CAD S/P PCI TO RCA 2011 Denies chest pain Aspirin held for GIB/ anemia Continue Metoprolol CKD STAGE III Creat is 1.6; baseline trended up over past 6 months from 1.2-> 1.5 -- stable ASTHMA Not in acute exacerbation Continue home inhalers CHRONIC RESPIRATORY FAILURE Currently saturating well on RA Continue home O2 2 liters NC HS and PRN OSTEOARTHRITIS On chronic prednisone 5 mg daily ANXIETY Continue home medications DVT PROPHYLAXIS Coumadin held for supratherapeutic INR, anemia, GIB SCD's DISPOSITION Lives with Follows with Dr. Inman for primary care Current Inpatient Medications: Current Inpatient Medications Medications (Trade) Dose Ordered Sig/Rsoi Route Start Time Stop Time Status Last Admin Dose Admin Potassium Chloride/Sodium Chloride (Nss + 20meq KCl 1000ml) 1,000 ml @ 75 mls/hr [id number] IV 12/10/16 21:30 01/09/17 21:29 12/11/16 10:58 75 MLS/HR Ondansetron HCl (Zofran Inj) 4 mg Q6H PRN IV 12/10/16 19:15 01/09/17 19:14 Albuterol Sulfate (Ventolin 0.083% 2.5MG/3ML Neb) 2.5 mg QID PRN INH 12/10/16 19:15 01/09/17 19:14 Calcium Carbonate (Tums Chew Tab) 500 mg BID PRN PO 12/10/16 19:15 01/09/17 19:14 Calcium/Vitamin D (Caltrate Plus Tab) 1 tab BIDM PO 12/11/16 07:30 01/10/17 07:59 12/11/16 08:45 1 TAB Docusate Sodium (coLACE CAP) 100 mg BID PO 12/11/16 09:00 01/10/17 08:59 12/11/16 08:44 100 MG Salmeterol Xinafoate/ Fluticasone (Advair Diskus 250/50 Inh) 1 puff BID INH 12/11/16 09:00 01/10/17 08:59 12/11/16 08:44 1 PUFF Lorazepam (Ativan Tab) 0.5 mg HS PRN PO 12/10/16 19:15 01/09/17 19:14 12/10/16 22:23 0.5 MG Magnesium Oxide (Mag-Ox Tab) 400 mg DAILY PO 12/11/16 09:00 01/10/17 08:59 12/11/16 08:44 400 MG Metoprolol Succinate (Toprol Xl Tab) 12.5 mg BID PO 12/10/16 21:00 01/09/17 20:59 12/11/16 08:44 12.5 MG Mirtazapine (Remeron Tab) 15 mg HS PO 12/10/16 21:00 01/09/17 20:59 12/10/16 22:13 15 MG Multivitamins (Multivitamin Tab) 1 tab DAILY PO 12/11/16 09:00 01/10/17 08:59 12/11/16 08:44 1 TAB Ondansetron HCl (Zofran Tab) 4 mg Q6 PRN PO 12/10/16 19:15 01/09/17 19:14 Oxycodone/ Acetaminophen (Percocet 5-325mg Tab) 1 tab Q8H PRN PO 12/10/16 19:15 12/24/16 19:14 Cholecalciferol (Vitamin D Tab) 1,000 inter.unit DAILY PO 12/11/16 09:00 01/10/17 08:59 12/11/16 08:45 1,000 INTER.UNIT Paroxetine HCl (pAXil TAB) 40 mg DAILY PO 12/11/16 09:00 01/10/17 08:59 12/11/16 08:45 40 MG Prednisone (PredniSONE TAB) 5 mg DAILY PO 12/11/16 09:00 01/10/17 08:59 12/11/16 08:45 5 MG
--- NOTE | 2016-12-11 15:39 | Neurology Consultation ---
Neurology Consultation Date of Consultation: December 11, 2016. Attending Physician: Jimenez Hayes MD Primary Care Physician: Myrna Inman M.D. 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 She had a recent admission to [facility] in October 2016 for COPD exacerbation and C. diff infection. She had out patient labs = INR 8, Hg 9, ESR >120. t She states she has had intermittent EPSTEIN for 2 weeks in across her forehead. She states she had a tooth extraction on the right 1 weeks ago. She has been taking 1 Percocet twice a day and some tylenol in between. She states the headache starts her forehead and then gets neck pain and then has some floating squiggly lines in her vision. She does not remember having migraines in the past. She reports black stool since she had C. diff in October 2016. She has been somewhat fatigued, and had some generalized weakness, increased LEONE. She was given prednisone 60 mg and then 10 mg which she thinks stopped the headache. She states she has some blurred vision with the headaches but it resolves when the headache resolves, denies CP, abdominal pain, one sides weakness, numbness tingling, N V D, bowel or bladder issues, tenderness with chewing Past Medical/Surgical History Medical Problems: (1) Acute kidney injury Status: Acute (2) Anticoagulated on Coumadin Status: Acute (3) Bronchitis with bronchospasm Status: Acute (4) Creatinine elevation Status: Acute (5) Dehydration Status: Acute (6) Dyspnea Status: Acute (7) GI bleed Status: Acute (8) Hypotension Status: Acute (9) SBO (small bowel obstruction) Status: Acute (10) Sepsis due to urinary tract infection Status: Acute (11) Symptomatic anemia Status: Acute Social History Smoking Status: Never smoker Drug Use: none Marital Status: Housing Status: lives alone Occupation Status: retired Allergies Coded Allergies: Cefdinir (Unverified Allergy, Unknown, RASH, 12/10/16) Clonazepam (Unverified Allergy, Unknown, ., 12/10/16) Levofloxacin (Verified Allergy, Unknown, unknown, 12/10/16) Sulfasalazine (Unverified Allergy, Unknown, ., 12/10/16) Metoclopramide (Verified Adverse Reaction, Intermediate, TREMORS, 12/10/16) Current Inpatient Medications Current Inpatient Medications Medications (Trade) Dose Ordered Sig/Rosi Route Start Time Stop Time Status Last Admin Dose Admin Ondansetron HCl (Zofran Inj) 4 mg Q6H PRN IV 12/10/16 19:15 01/09/17 19:14 Albuterol Sulfate (Ventolin 0.083% 2.5MG/3ML Neb) 2.5 mg QID PRN INH 12/10/16 19:15 01/09/17 19:14 Calcium Carbonate (Tums Chew Tab) 500 mg BID PRN PO 12/10/16 19:15 01/09/17 19:14 Calcium/Vitamin D (Caltrate Plus Tab) 1 tab BIDM PO 12/11/16 07:30 01/10/17 07:59 12/11/16 08:45 1 TAB Docusate Sodium (coLACE CAP) 100 mg BID PO 12/11/16 09:00 01/10/17 08:59 12/11/16 08:44 100 MG Salmeterol Xinafoate/ Fluticasone (Advair Diskus 250/50 Inh) 1 puff BID INH 12/11/16 09:00 01/10/17 08:59 12/11/16 08:44 1 PUFF Lorazepam (Ativan Tab) 0.5 mg HS PRN PO 12/10/16 19:15 01/09/17 19:14 12/10/16 22:23 0.5 MG Magnesium Oxide (Mag-Ox Tab) 400 mg DAILY PO 12/11/16 09:00 01/10/17 08:59 12/11/16 08:44 400 MG Metoprolol Succinate (Toprol Xl Tab) 12.5 mg BID PO 12/10/16 21:00 01/09/17 20:59 12/11/16 08:44 12.5 MG Mirtazapine (Remeron Tab) 15 mg HS PO 12/10/16 21:00 01/09/17 20:59 12/10/16 22:13 15 MG Multivitamins (Multivitamin Tab) 1 tab DAILY PO 12/11/16 09:00 01/10/17 08:59 12/11/16 08:44 1 TAB Ondansetron HCl (Zofran Tab) 4 mg Q6 PRN PO 12/10/16 19:15 01/09/17 19:14 Oxycodone/ Acetaminophen (Percocet 5-325mg Tab) 1 tab Q8H PRN PO 12/10/16 19:15 12/24/16 19:14 Cholecalciferol (Vitamin D Tab) 1,000 inter.unit DAILY PO 12/11/16 09:00 01/10/17 08:59 12/11/16 08:45 1,000 INTER.UNIT Paroxetine HCl (pAXil TAB) 40 mg DAILY PO 12/11/16 09:00 01/10/17 08:59 12/11/16 08:45 40 MG Prednisone (PredniSONE TAB) 5 mg DAILY PO 12/11/16 09:00 01/10/17 08:59 12/11/16 08:45 5 MG Physical Exam Vital Signs (Past 24 Hrs): Date Time Temp Pulse Resp B/P Pulse Ox O2 Delivery O2 Flow Rate FiO2 12/11/16 12:00 Room Air 12/11/16 11:23 36.6 75 18 91/57 96 Room Air 12/11/16 08:00 Room Air 12/11/16 07:24 36.3 77 18 127/78 93 Room Air 12/11/16 04:04 36.5 72 20 118/76 94 Room Air 12/11/16 04:00 94 Room Air 12/11/16 00:00 93 Room Air 12/10/16 23:53 36.4 75 22 115/74 93 Room Air 12/10/16 21:22 99 Room Air 12/10/16 21:13 36.5 77 20 142/74 12/10/16 20:28 82 18 135/81 94 12/10/16 19:10 82 18 129/67 97 Room Air 12/10/16 18:00 36.8 92 18 105/51 98 Room Air Physical Exam: Constitutional: appearance nourished, healthy obese, non tender to palpation left and right temporal area Ears, Nose, Mouth and Throat: mucous membranes moist, no injection and skin normal, eyes normal Cardiovascular: irregular Respiratory: course breath sound Musculoskeletal: severe arthritic bony deformities in fingers. Skin: no stigmata of neurocutaneous disease noted and normal and intact, bruising on the right cheek post operative tooth extraction, scattered areas of erythema on arms and legs Eyes: extraocular muscles intact (EOMI) and pupils equal, round and reactive to light (PERRL), good vascular pulsations NEUROLOGIC EXAMINATION: Mental status: Alert and interactive Oriented to full date and location Oriented to person Speech fluent with no evidence of aphasia Cranial Nerves smile symmetric, bilaterally minimal eye brow raise due to past MOHS surgery, tongue midline Reflexes: Deep tendon reflexes were symmetrical and graded 2/5. Plantar responses were flexor. Sensory: vibration, cool touch Coordination: finger to nose with out bipass no tremor Gait/Stance: Posture normal. Gait normal: with steady with steps, base, turning, heel and toe walking and tandem gait. Motor: Negative for pronator drift of out stretched arms with eyes closed. 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 stands without assistance, no Romberg with eyes closed. Laboratory Results Past 24 Hours: 12/11/16 05:13 12/11/16 14:25 12/11/16 05:13 Test 12/10/16 18:50 12/11/16 05:13 Immature Granulocyte % (Auto) 0.3 % White Blood Count 7.19 K/uL (4.8-10.8) Red Blood Count 2.72 M/uL (4.2-5.4) 2.78 M/uL (4.2-5.4) Hemoglobin 8.7 g/dL (12.0-16.0) Hematocrit 27.8 % (37-47) Mean Corpuscular Volume 102.2 fL (80-100) 102.5 fL (80-100) Mean Corpuscular Hemoglobin 32.0 pg (25-34) 31.3 pg (25-34) Mean Corpuscular Hemoglobin Concent 31.3 g/dl (32-36) 30.5 g/dl (32-36) Platelet Count 438 K/uL (130-400) Mean Platelet Volume 8.7 fL (7.4-10.4) 9.0 fL (7.4-10.4) Neutrophils (%) (Auto) 72.6 % Lymphocytes (%) (Auto) 15.9 % Monocytes (%) (Auto) 10.2 % Eosinophils (%) (Auto) 0.6 % Basophils (%) (Auto) 0.4 % Neutrophils # (Auto) 5.23 K/uL (1.4-6.5) Lymphocytes # (Auto) 1.14 K/uL (1.2-3.4) Monocytes # (Auto) 0.73 K/uL (0.11-0.59) Eosinophils # (Auto) 0.04 K/uL (0-0.5) Basophils # (Auto) 0.03 K/uL (0-0.2) Immature Granulocyte # (Auto) 0.02 K/uL (0.00-0.02) Polychromasia 1+ Anisocytosis PRESENT Stomatocytes 1+ Erythrocyte Sedimentation Rate 40 mm/hr (0-21) Absolute Reticulocyte Count 0.13 10^6/uL (0.02-0.10) Percent Reticulocyte Count 4.9 % (0.5-2.0) Immature Reticulocyte Fraction 30.1 % (3.0-15.9) Reticulocyte Hemoglobin Content 28.2 PG (28.2-36.6) Activated Partial Thromboplast Time 68.3 SECONDS (21.0-31.0) Partial Thromboplastin Ratio 2.6 Total Bilirubin 0.3 mg/dl (0.2-1) Direct Bilirubin < 0.1 mg/dl (0-0.2) Aspartate Amino Transf (AST/SGOT) 25 U/L (15-37) Alanine Aminotransferase (ALT/SGPT) 27 U/L (12-78) Alkaline Phosphatase 80 U/L (45-117) Total Creatine Kinase 40 U/L (26-192) Creatine Kinase MB 1.0 ng/ml (0.5-3.6) Creatine Kinase MB Ratio 2.5 (0-3.0) Troponin I 0.043 ng/ml (0-0.045) C-Reactive Protein 4.21 mg/dl (0-0.29) Pro-B-Type Natriuretic Peptide 1156 pg/ml (0-1800) Total Protein 6.7 gm/dl (6.4-8.2) Albumin 2.8 gm/dl (3.4-5.0) Lipase 179 U/L (73-393) RDW Standard Deviation 62.9 fL (36.4-46.3) RDW Coefficient of Variation 16.8 % (11.5-14.5) Nucleated RBC Absolute Count (auto) 0.02 K/uL (0-0) Nucleated Red Blood Cells % 0.4 % Prothrombin Time 19.8 SECONDS (9.0-12.0) Prothromb Time International Ratio 1.8 (0.9-1.1) Anion Gap 9.0 mmol/L (3-11) Est Creatinine Clear Calc Drug Dose 23.3 ml/min Estimated GFR () 34.2 Estimated GFR (Non- 29.5 BUN/Creatinine Ratio 17.8 (10-20) Calcium Level 9.5 mg/dl (8.5-10.1) Phosphorus Level 4.2 mg/dl (2.5-4.9) Magnesium Level 2.2 mg/dl (1.8-2.4) Imaging CXR- FINDINGS: Mild cardiomegaly. Fixed hiatal hernia. Chronic pleural and parenchymal changes bilaterally. Impression 81 year old female s/p headache and fatigue abnormal labs Plan 1. MRI with and without if valve is MRI compatible and renal functions with tolerate- new onset headache after 50 2. consult to general surgery for temporal biopsy 3. will need to clinic pharmacy advise for bridging for temporal artery biopsy 4. PT/OT for discharge needs 5. should follow up with ophthalmology for vision changes 6. further recommendation to follow I have seen and discussed above patient with Dr Perla Tang, neurology Pt seen and examined, hx reviewed. Pt has had outpt CT which is said to be noncontrib. Pt with mult med pblm, valvuloplasty (?) in Jun. Bronchitis and c diff in October. Bifrontal biocc headache of moderate severity x 2 week. Dental work 1 week ago for elective extraction. Jaw pain. Low grade fever and fatigue 4 d ago. blurred vis and squiggly vis phen.ESR ast outpt 120, here 40. Better on Prednisone 60 mg. Exam unable to reliably see ON, nml bello, diff to palpate TA bl, neck supple no asym weakness. Imp EPSTEIN, poss TA. Rec MRI brain, vigilance for underlying infection given valve, report of fever. No evid of meningitis. Agree with surgical consult for TA biopsy. I suspect she will need to be bridged with lovenox. Will follow with you, CHANDU Tang MD
[2016-12-11] MEDS: OXYCODONE/ACETAMINOPHEN 5-325 TAB PO PRN (18:19)
[2016-12-11] MEDS: MIRTAZAPINE TAB 15 MG TAB PO SCH (20:04)
[2016-12-11] MEDS: LORAZEPAM 0.5 MG TAB PO PRN (20:48)
--- NOTE | 2016-12-11 23:09 | Medical Consult ---
Consultation Date of Consultation: December 11, 2016. Attending Physician: Jimenez Hayes MD Reason for Consultation: history of PE GI blood loss History of Present Illness 81 year old female with history of recurrent PE. First event was in 2004, which may have been after a car ride to [place]. She took warfarin at that time for about a year and a half then it was discontinued after she saw Dr Block as it was the first event. She had a second event in 2008 - patient reports that she was very active at that time and did not have any prolonged travel or surgery or trauma or taking any hormone replacement. She had a 3rd acute PE in 2012 after she was off coumadin due to GI bleed, and was put back on coumadin. She recently was admitted in October with bronchitis. She developed C diff and said stool was dark during that period. She denies any abdominal pain or nausea or vomiting. Of note she was treated with hysterectomy and RT in 1994 for uterine malignancy. She was sent to ER and is admitted for headaches for several weeks and also had abnormal labs - had supratherapeutic INR and anemia and elevated sed rate of > 120 outpatient She states that headaches are frontal and occipital and neck Past Medical/Surgical History PAST MEDICAL HISTORY: CAD, severe s/p TAVR, recurrent PE x3, heterozygous for MTHFR, CKD stage III hypertension, hyperlipidemia, GI bleed, arthritis on prednisone, COPD bronchitis Medical Problems: (1) Acute kidney injury Status: Acute (2) Anticoagulated on Coumadin Status: Acute (3) Bronchitis with bronchospasm Status: Acute (4) Creatinine elevation Status: Acute (5) Dehydration Status: Acute (6) Dyspnea Status: Acute (7) GI bleed Status: Acute (8) Hypotension Status: Acute (9) SBO (small bowel obstruction) Status: Acute (10) Sepsis due to urinary tract infection Status: Acute (11) Symptomatic anemia Status: Acute Family History Cancer Diabetes mellitus FH: cardiovascular disease MOTHER Gallbladder disease Hypertension Social History Smoking Status: Never Smoker Drug Use: none Marital Status: Housing Status: lives alone Occupation Status: retired Allergies Coded Allergies: Cefdinir (Unverified Allergy, Unknown, RASH, 12/10/16) Clonazepam (Unverified Allergy, Unknown, ., 12/10/16) Levofloxacin (Verified Allergy, Unknown, unknown, 12/10/16) Sulfasalazine (Unverified Allergy, Unknown, ., 12/10/16) Metoclopramide (Verified Adverse Reaction, Intermediate, TREMORS, 12/10/16) Current Inpatient Medications Current Inpatient Medications Medications (Trade) Dose Ordered Sig/Rosi Route Start Time Stop Time Status Last Admin Dose Admin Ondansetron HCl (Zofran Inj) 4 mg Q6H PRN IV 12/10/16 19:15 01/09/17 19:14 Albuterol Sulfate (Ventolin 0.083% 2.5MG/3ML Neb) 2.5 mg QID PRN INH 12/10/16 19:15 01/09/17 19:14 Calcium Carbonate (Tums Chew Tab) 500 mg BID PRN PO 12/10/16 19:15 01/09/17 19:14 Calcium/Vitamin D (Caltrate Plus Tab) 1 tab BIDM PO 12/11/16 07:30 01/10/17 07:59 12/11/16 16:32 1 TAB Docusate Sodium (coLACE CAP) 100 mg BID PO 12/11/16 09:00 01/10/17 08:59 12/11/16 20:04 100 MG Salmeterol Xinafoate/ Fluticasone (Advair Diskus 250/50 Inh) 1 puff BID INH 12/11/16 09:00 01/10/17 08:59 12/11/16 20:04 1 PUFF Lorazepam (Ativan Tab) 0.5 mg HS PRN PO 12/10/16 19:15 01/09/17 19:14 12/11/16 20:48 0.5 MG Magnesium Oxide (Mag-Ox Tab) 400 mg DAILY PO 12/11/16 09:00 01/10/17 08:59 12/11/16 08:44 400 MG Metoprolol Succinate (Toprol Xl Tab) 12.5 mg BID PO 12/10/16 21:00 01/09/17 20:59 12/11/16 20:05 12.5 MG Mirtazapine (Remeron Tab) 15 mg HS PO 12/10/16 21:00 01/09/17 20:59 12/11/16 20:04 15 MG Multivitamins (Multivitamin Tab) 1 tab DAILY PO 12/11/16 09:00 01/10/17 08:59 12/11/16 08:44 1 TAB Ondansetron HCl (Zofran Tab) 4 mg Q6 PRN PO 12/10/16 19:15 01/09/17 19:14 Oxycodone/ Acetaminophen (Percocet 5-325mg Tab) 1 tab Q8H PRN PO 12/10/16 19:15 12/24/16 19:14 12/11/16 18:19 1 TAB Cholecalciferol (Vitamin D Tab) 1,000 inter.unit DAILY PO 12/11/16 09:00 01/10/17 08:59 12/11/16 08:45 1,000 INTER.UNIT Paroxetine HCl (pAXil TAB) 40 mg DAILY PO 12/11/16 09:00 01/10/17 08:59 12/11/16 08:45 40 MG Prednisone (PredniSONE TAB) 5 mg DAILY PO 12/11/16 09:00 01/10/17 08:59 12/11/16 08:45 5 MG Review of Systems Constitutional: + fatigue, No chills, No fever ENT: No nasal symptoms, No sore throat, No unusual epistaxis Respiratory: + dyspnea on exertion (chronic), No cough, No sputum Cardiovascular: + edema, No chest pain Abdomen: No constipation, No diarrhea, No nausea, No pain, No vomiting Genitourinary - Female: No dysuria, No hematuria, No urinary frequency Neurologic: + problem reported (headaches for several weeks), No weakness Hematologic / Lymphatic: No night sweats, No swollen lymph nodes Physical Exam Date Time Temp Pulse Resp B/P Pulse Ox O2 Delivery O2 Flow Rate FiO2 12/11/16 20:21 36.3 81 18 129/79 100 Room Air 12/11/16 20:00 Room Air 12/11/16 19:21 36.4 93 20 171/70 95 Room Air 12/11/16 16:00 Room Air 12/11/16 15:40 36.4 73 18 103/60 100 Room Air 12/11/16 12:00 Room Air 12/11/16 11:23 36.6 75 18 91/57 96 Room Air 12/11/16 08:00 Room Air 12/11/16 07:24 36.3 77 18 127/78 93 Room Air 12/11/16 04:04 36.5 72 20 118/76 94 Room Air 12/11/16 04:00 94 Room Air 12/11/16 00:00 93 Room Air 12/10/16 23:53 36.4 75 22 115/74 93 Room Air General Appearance: WD/WN, no apparent distress Head: normocephalic, atraumatic, + pertinent finding (ecchymotic area on right cheek from recent dental extraction) Eyes: sclerae normal Neck: no adenopathy, no JVD Respiratory/Chest: lungs clear, normal breath sounds, no respiratory distress Cardiovascular: regular rate, rhythm Abdomen/GI: normal bowel sounds, non tender, soft, no organomegaly Extremities/Musculoskelatal: no calf tenderness, non-tender, + pedal edema Neurologic/Psych: alert, normal mood/affect, oriented x 3 Skin: warm/dry Laboratory Results Last 24 Hours Test 12/11/16 01:55 12/11/16 05:13 12/11/16 08:32 12/11/16 14:25 Hemoglobin 7.9 g/dL 8.7 g/dL 8.3 g/dL 8.3 g/dL Hematocrit 25.1 % 28.5 % 26.0 % 28.0 % White Blood Count 5.49 K/uL Red Blood Count 2.78 M/uL Mean Corpuscular Volume 102.5 fL Mean Corpuscular Hemoglobin 31.3 pg Mean Corpuscular Hemoglobin Concent 30.5 g/dl RDW Standard Deviation 62.9 fL RDW Coefficient of Variation 16.8 % Platelet Count 484 K/uL Mean Platelet Volume 9.0 fL Nucleated RBC Absolute Count (auto) 0.02 K/uL Nucleated Red Blood Cells % 0.4 % Prothrombin Time 19.8 SECONDS Prothromb Time International Ratio 1.8 Sodium Level 138 mmol/L Potassium Level 4.3 mmol/L Chloride Level 103 mmol/L Carbon Dioxide Level 26 mmol/L Anion Gap 9.0 mmol/L Blood Urea Nitrogen 29 mg/dl Creatinine 1.60 mg/dl Est Creatinine Clear Calc Drug Dose 23.3 ml/min Estimated GFR () 34.2 Estimated GFR (Non- 29.5 BUN/Creatinine Ratio 17.8 Random Glucose 156 mg/dl Calcium Level 9.5 mg/dl Phosphorus Level 4.2 mg/dl Magnesium Level 2.2 mg/dl Assessment & Plan 81 year old female with history of pulmonary embolism - she has had 3 events - in 2004, 2008 and in 2013. 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 INR was supratherapeutic on admission. Her anemia may be multifactorial - chronic inflammation, CKD, rule out nutritional deficiency, also blood loss needs to be ruled out. She has also had prior radiation many years ago,. Recommend follow up with GI for evaluation for any source of blood loss As she has had 3 episodes of PE of which she reports the last 2 were unprovoked and when coumadin was discontinued it is reasonable for indefinite anticoagulation. She will need close monitoring with coumadin clinic to avoid supratherapeutic INRs and keep INR on the lower end around 2.0 to 2.5. Recommend heparin gtt in the mean time and bridge to coumadin once her anemia is stable and no further bleeding issues I discussed with the patient that a temporary IVC filter can be done if she is unable to tolerate anticoagulation. She is not interested in the filter at this time but also fears another PE. Will check venous doppler Follow up in the office upon discharge. Discussed with Dr Hayes
[2016-12-12] VITALS (9 sets, daily range): BP systolic 111–154; BP diastolic 68–86; PULSE 75–80; TEMP 36.3–36.7; O2SAT 95–99
--- NOTE | 2016-12-12 01:15 | CARDIOLOGY CONSULTATION ---
DATE OF CONSULTATION: 12/11/2016 REFERRING PHYSICIAN: Dr. Jimenez Hayes. REASON FOR CONSULTATION: Status post aortic valve replacement, supratherapeutic INR. HISTORY OF PRESENT ILLNESS: Ms. Conley is a complex 81-year-old female with past medical history noted below. She has been on Coumadin for several years due to a history of pulmonary embolus. Recently, she was treated for C. diff as well as an upper respiratory tract infection. The patient was taking both vancomycin and doxycycline. She had lab studies performed by her PCP demonstrating an INR of 8 and hemoglobin of 9. She was referred to the Emergency Department. She has a mild area of ecchymosis near her right jawline. This has been present since a tooth extraction approximately 1 week ago. She denies any falls or injury. Notes dark colored stool and diarrhea since C. diff infection in October. Denies epistaxis or hematuria. No chest pain or unusual shortness of breath. Reports intermittent edema, primarily in the afternoons. She takes 20 mg of Lasix as needed for this issue. No abdominal pain, vomiting, orthopnea, PND, palpitations, lightheadedness, dizziness, syncope or near syncope. Offers no other complaints at this time. REVIEW OF SYSTEMS: The pertinent positives are noted above, a comprehensive 10-system review is otherwise negative. PAST MEDICAL HISTORY: 1. Chronic coronary disease with history of percutaneous intervention to the right coronary artery 01/2012. 2. TAVR for severe aortic stenosis 05/13/2016 with a 26 mm CoreValve Evolut. 3. History of recurrent pulmonary emboli, on chronic anticoagulation. 4. Symptomatic anemia with iron deficiency and chronic kidney disease. 5. Stage III CKD, followed by nephrology. 6. Hypertension. 7. Dyslipidemia. 8. Uterine carcinoma. 9. Hiatal hernia. 10. Gastroparesis. 11. GERD. 12. Esophageal stricture. 13. GI bleeding 05/2013. 14. Urinary tract infection with history of multidrug resistant organisms. 15. Seronegative arthritis, on chronic prednisone. 16. Depression. 17. Spinal stenosis. 18. Tension headaches. 19. Retinal detachment. 20. Shingles. 21. Esophageal stricture. PAST SURGICAL HISTORY: 1. TAVR insertion 05/2016. 2. Percutaneous intervention to the right coronary artery 2011. 3. Total hysterectomy. 4. EGD. 5. Colonoscopy. 6. Detached retina repair. 7. Cystoscopy. 8. Cataract surgery. 9. Arthroscopic knee surgery. FAMILY HISTORY: Mother and father both at age 65. Mother had rheumatic heart disease, diabetes, and multiple strokes. Father of pneumonia. Two older brothers, 1 with metastatic prostate cancer and the other with coronary disease. Older sister with Alzheimer's dementia. SOCIAL HISTORY: She is a nonsmoker. No significant alcohol intake. Denies any illegal drug use. 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 She has 3 children and she is . ALLERGIES: REGLAN, AUGMENTIN, AZULFIDINE WHICH IS SULFASALAZINE, KLONOPIN, OMNIPAQUE. CURRENT OUTPATIENT MEDICATIONS: 1. Ascorbic acid 500 mg daily. 2. Aspirin 81 mg daily. 3. Calcium with vitamin D daily. 4. Colace daily. 5. Ferrous sulfate 325 b.i.d. 6. Advair Diskus twice daily. 7. Furosemide 40 mg daily with an additional 20 mg in the afternoon as needed. 8. Lactinex t.i.d. 9. Magnesium oxide 400 mg daily. 10. Toprol-XL 12.5 mg b.i.d. 11. Remeron 1 tablet daily. 12. Multivitamin daily. 13. Oxygen 3 liters daily. 14. Protonix 1 tab daily. 15. Paxil 40 mg daily. 16. Potassium chloride 10 mEq b.i.d. 17. Prednisone 5 mg daily. 18. Coumadin 2 mg daily as directed by the anticoagulation clinic. 19. Tylenol as needed. 20. Albuterol as needed. 21. Lorazepam 0.5 mg as needed. 22. Percocet 5/325 q. 8 as needed. 23. Zofran 4 mg q. 6 as needed. ECG ON ADMISSION: Normal sinus rhythm, left ventricular hypertrophy. LABORATORY DATA: Sodium 138, potassium 4.3, chloride 103, CO2 of 26, BUN 29, creatinine is 1.60. White blood cell count is 5.49, hemoglobin is 8.3, platelet count is 484. INR initially greater than 8.0, repeat INR is 1.8. Chest x-ray on admission demonstrates no acute process. PHYSICAL EXAMINATION: VITAL SIGNS: Temperature is 36.4 degrees centigrade, pulse 73 beats per minute and regular, respiratory rate is 18 breaths per minute, blood pressure 103/60, SaO2 is 100% on room air. GENERAL: NAD, awake, alert and oriented x3. HEENT: Her mucous membranes are moist. There is no scleral icterus. Conjunctivae are pink. Mild ecchymosis near the right jawline. NECK: Supple without JVD or HJR. No carotid bruit. HEART: Regular with a 1/6 systolic ejection murmur heard best at the right second intercostal space. LUNGS: Clear without rales, rhonchi or wheeze. ABDOMEN: Soft, nontender. No rebound or guarding. Normal bowel sounds. EXTREMITIES: Warm and dry with trace to mild bilateral pedal edema. NEUROLOGIC: Demonstrates no focal deficit. FINAL IMPRESSION: 1. An 81-year-old female admitted with supratherapeutic INR and acute on chronic anemia. She appears asymptomatic and hemoglobin is above 8.0 grams per deciliter. No signs of ongoing blood loss currently. 2. History of transcatheter aortic valve replacement. 3. History of recurrent pulmonary embolus, on chronic oral anticoagulation. 4. Chronic coronary artery disease -- clinically stable. 5. Chronic lower extremity edema. 6. Chronic kidney disease -- creatinine at baseline. PLAN AND RECOMMENDATIONS: For clarification, the patient currently is not taking Coumadin for her TAVR which is a bioprosthetic valve. She takes Coumadin for a history of recurrent PE. Recommend anticoagulation be restarted in the future when hemoglobin has stabilized without signs or symptoms of ongoing blood loss. She will require a close followup with the anticoagulation clinic to avoid further episodes of supratherapeutic INR. I would not recommend a DOAC at this time with the renal insufficiency, advanced age, and presence of bioprosthetic valve. She will resume her Lasix in the a.m., 40 mg daily. Hemoglobin and hematocrit will be followed during hospitalization. No further cardiac testing is indicated at this time. Thank you for allowing me to take part in the care of your patient. MEG
[2016-12-12] MEDS: OXYCODONE/ACETAMINOPHEN 5-325 TAB PO PRN ×3 (03:56→21:19)
--- NOTE | 2016-12-12 06:24 | DIAGNOSTIC IMAGING REPORT ---
ULTRASOUND VENOUS DOPPLER LWR EXT BILA CLINICAL HISTORY: Leg edema. History of pulmonary embolism. COMPARISON STUDY: No previous studies for comparison. FINDINGS: Real-time and color flow Doppler imaging were performed. Flow was seen within the femoral, popliteal and calf veins with no intraluminal thrombus demonstrated. The saphenous vein is patent. There is a complex 29 x 14 x 22 mm right popliteal cyst. There is prominent pulsatility within the waveform suggesting elevated right heart pressures. IMPRESSION: 1. No evidence of lower extremity DVT 2. Complex right popliteal cyst with calcifications 3. Increased pulsatility, a finding suggesting elevated right heart pressures Electronically signed by: Austin Harman M.D. 12/12/2016 6:22 AM Dictated Date/Time: 12/12/2016 6:21 AM
--- NOTE | 2016-12-12 06:31 | Clinical Documentation Query ---
QUERY 1 OF [address] FIGUEROA, In your clinical opinion is this patient being managed for: ( ) Hemorrhagic disorder due to coumadin, causing GI bleed ( ) Other explanation of clinical findings (Please Explain) ( ) Unable to determine (Please Define) ( ) Need to Discuss ( ) Not Agree The medical record reflects the following clinical findings, treatment, and risk factors. Clinical Indicators: 81 yo female presenting with GI bleed and supratherapeutic INR (>8.0). Pt noted to be chronically treated with coumadin due to recurrent PE's. 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 ECHO from November 2015 showed EF of 65-70% with grade I diastolic dysfunction. Treatment:home medications include lasix (currently on hold), and toprol xl. Cardiology consult. Risk Factors: CKD stage III, HTN, age, COPD, CAD, aortic stenosis Please clarify and document your clinical opinion in the progress notes and discharge summary. Terms such as "probable", "suspected", "likely", "questionable", "possible", or "still to be ruled out" are acceptable. IF IN AGREEMENT, YOU MUST DOCUMENT ABOVE DIAGNOSTIC STATEMENT IN DAILY PROGRESS NOTES AND DISCHARGE SUMMARY. This document is not part of the patient's record. Thank You, Letitia Aguero RN [phone]
--- NOTE | 2016-12-12 06:33 | DIAGNOSTIC IMAGING REPORT ---
MRI OF THE BRAIN WITHOUT CONTRAST CLINICAL HISTORY: New onset headache after age 48. Headache for 3 weeks. COMPARISON STUDY: Noncontrast head CT dated 10/18/2015 FINDINGS: Sagittal T1, axial diffusion, proton density and T2 weighted axial, coronal FLAIR, and axial T1-weighted images were acquired. No intra or extra-axial mass lesions are visualized Axial diffusion-weighted images reveal no evidence of acute or subacute infarction. There is no evidence of ventricular dilatation. Proton density T2-weighted and FLAIR images reveal scattered foci of increased T2 signal within the white matter, likely on a small vessel basis. There are no abnormal flow voids. There are foci of increased T2 signal within the mastoids, consistent with an inflammatory etiology. IMPRESSION: 1. No evidence of intracranial mass in this noncontrast study 2. No evidence of acute or subacute infarction 3. Foci of increased T2 signal within the mastoids, likely on an inflammatory basis 4. Foci of increased T2 and FLAIR signal within the white matter likely on a small vessel basis Electronically signed by: Austin Harman M.D. 12/12/2016 6:32 AM Dictated Date/Time: 12/12/2016 6:29 AM
[2016-12-12 07:20] LABS: BASO % 0.1 %; BASO ABS # 0.01 K/uL (0-0.2); EOS % 0.6 %; HEMATOCRIT 25.7 % (37-47); IG% 0.4 %; LYMPH % 16.4 %; LYMPH ABS # 1.46 K/uL (1.2-3.4); MEAN CORPUSCULAR HEMOGLOBIN 31.7 pg (25-34); MEAN CORPUSCULAR HGB CONC 31.1 g/dl (32-36); MEAN PLATELET VOLUME 8.6 fL (7.4-10.4); MONO % 11.5 %; PLATELET COUNT 447 K/uL (130-400); RED BLOOD COUNT 2.52 M/uL (4.2-5.4)
[2016-12-12 07:47] LABS: POLYCHROMASIA 1+
[2016-12-12 07:49] LABS: TOTAL IRON BINDING CAPACITY 287 mcg/dl (250-450)
[2016-12-12] MEDS: CALCIUM 600MG + VIT D 400 IU TAB PO SCH ×2 (08:00→17:23)
[2016-12-12] MEDS ORDERED: TRAMADOL HCL 50 MG TAB PO PRN (08:45)
[2016-12-12] MEDS: MULTIVITAMIN TAB PO SCH (09:00)
[2016-12-12] MEDS: CHOLECALCIFEROL 1000 INTER.UNIT TAB PO SCH (09:00)
[2016-12-12] MEDS: DOCUSATE SODIUM 100 MG CAP PO SCH ×2 (09:00→20:13)
[2016-12-12] MEDS ORDERED: TRAMADOL HCL 50 MG TAB PO ONE (09:00)
[2016-12-12] MEDS: MAGNESIUM OXIDE 400 MG TAB PO SCH (09:00)
[2016-12-12 09:13] LABS: INR 1.1 (0.9-1.1); PROTHROMBIN TIME (PATIENT) 11.9 SECONDS (9.0-12.0)
[2016-12-12] MEDS: FLUTICASONE/SALMETEROL 250/50 (ADVAIR) 14 PUFF/1 INHALER INH SCH ×2 (09:15→20:13)
[2016-12-12] MEDS: PANTOprazole INJ 40 MG in SYRINGE 0 ML IV SCH ×2 (09:15→20:13)
[2016-12-12] MEDS: PAROXETINE 20 MG TAB PO SCH (09:16)
[2016-12-12] MEDS: METOPROLOL SUCC 25MG EXT REL TAB PO SCH ×2 (09:16→20:14)
--- NOTE | 2016-12-12 10:18 | Progress Note ---
Medicine Progress Note Date & Time of Visit: December 12, 2016 at 10:01. Subjective patient seen resting in bed states she is having increased right sided headache now and tenderness on the temporal region denies visual symptoms or any other focal deficits denies pain on the tooth extraction site no chest pain, dyspnea, dizziness, nausea no abdominal pain denies melena/hematochezia no other bleeding noted denies other symptoms Objective Last 8 Hrs Date Time Temp Pulse Resp B/P Pulse Ox O2 Delivery O2 Flow Rate FiO2 12/12/16 07:36 36.3 75 20 143/78 96 12/12/16 04:41 36.4 80 16 154/86 97 Room Air 12/12/16 04:32 Room Air Physical Exam: General- oriented x 3, not in distress, speaks in sentences with no effort Eyes- anicteric ENT- (+) mild facial edema and erythema on the right lower half of the face mild tenderness on the temporal region no erythema/swelling/discharge noted on inspection of the buccal mucosa , teeth, gums oropharynx clear no tenesmus Neck- supple, no JVD, no adenopathy Lungs- clear breath sounds bilaterally no rales/wheezes Heart- normal rate, regular rhythm; no murmurs Abdomen- normal bowel sounds, soft, nontender Extremities- trace lower leg edema, no calf tenderness; peripheral pulses intact Neuro- alert, oriented x 3; no gross focal deficits Skin- warm & dry Laboratory Results: Last 24 Hours Test 12/11/16 14:25 12/12/16 07:10 12/12/16 08:21 Hemoglobin 8.3 g/dL 8.0 g/dL Hematocrit 28.0 % 25.7 % White Blood Count 8.90 K/uL Red Blood Count 2.52 M/uL Mean Corpuscular Volume 102.0 fL Mean Corpuscular Hemoglobin 31.7 pg Mean Corpuscular Hemoglobin Concent 31.1 g/dl Platelet Count 447 K/uL Mean Platelet Volume 8.6 fL Neutrophils (%) (Auto) 71.0 % Lymphocytes (%) (Auto) 16.4 % Monocytes (%) (Auto) 11.5 % Eosinophils (%) (Auto) 0.6 % Basophils (%) (Auto) 0.1 % Neutrophils # (Auto) 6.32 K/uL Lymphocytes # (Auto) 1.46 K/uL Monocytes # (Auto) 1.02 K/uL Eosinophils # (Auto) 0.05 K/uL Basophils # (Auto) 0.01 K/uL RDW Standard Deviation 64.2 fL RDW Coefficient of Variation 17.2 % Immature Granulocyte % (Auto) 0.4 % Immature Granulocyte # (Auto) 0.04 K/uL Polychromasia 1+ Prothrombin Time 11.9 SECONDS Prothromb Time International Ratio 1.1 D-Dimer 510 ug/L FEU Iron Level 29 mcg/dl Total Iron Binding Capacity 287 mcg/dl Transferrin 214 mg/dl Transferrin % Saturation 10 % Lactate Dehydrogenase 268 U/L Vitamin B12 Level 792 pg/mL Folate 21.41 ng/mL Assessment & Plan 81 year old female with history of CHF, CAD, TAVR, PE on coumadin, Arthritis on Chronic Prednisone, presenting with abnormal labs. Acute Blood loss Anemia in the setting of Supratherapeutic INR possible underlying Upper GI Bleed Reports of melena; stool is dark heme positive on ER provider's exam Patient on Coumadin with supratherapeutic INR (8 on outpatient lab) Hg was 9.0 today as outpatient -> 8.7 in ER; baseline 11's-12's due to iron deficiency anemia and anemia of CKD -- given Vitamin K coumadin held -- INR 1.8 from > 8 Hg 8.3 from 8.7 -- evaluated by GI, EGD not recommended at this time -- placed on Protonix drip, change to Protonix BI held coumadin and Aspirin -- discussed case with GI and Hematology INR today 1.1 Hg stable, no signs of active gi bleed will resume coumadin with bridging heparin continue Hg monitoring and Protonix BID HISTORY OF PE - 1st episode 2005: seen by Dr. 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 Gen surgery recommending outpatient biopsy, control headache for now will discuss with Neurology re: restarting Prednisone -- possible RIGHT SIDED FACIAL CELLULITIS, IN THE SETTING OF RECENT DENTAL EXTRACTION? CHRONIC PREDNISONE USE will check blood cultures start empiric Clindamycin, monitor response HX SEVERE AORTIC STENOSIS, S/P TAVR 05/2016 HX CHF DUE TO VALVULAR DISEASE -No acute decompensation Echo 11/2015- Ejection Fraction = 65-70%. There is severe concentric left ventricular hypertrophy. There is severe calcific aortic valve stenosis. Mild aortic regurgitation. There is mild to moderate tricuspid regurgitation. Grade I diastolic dysfunction, (abnormal relaxation pattern). -- euvolemic -- resume Lasix PO --Cardiology consulted CAD S/P PCI TO RCA 2011 Denies chest pain Aspirin held for GIB/ anemia Continue Metoprolol CKD STAGE III Creat is 1.6; baseline trended up over past 6 months from 1.2-> 1.5 -- stable ASTHMA Not in acute exacerbation Continue home inhalers CHRONIC RESPIRATORY FAILURE Currently saturating well on RA Continue home O2 2 liters NC HS and PRN OSTEOARTHRITIS On chronic prednisone 5 mg daily ANXIETY Continue home medications DVT PROPHYLAXIS will resume heparin and coumadin today SCD's DISPOSITION Lives with Follows with Dr. Inman for primary care Current Inpatient Medications: Current Inpatient Medications Medications (Trade) Dose Ordered Sig/Rosi Route Start Time Stop Time Status Last Admin Dose Admin Ondansetron HCl (Zofran Inj) 4 mg Q6H PRN IV 12/10/16 19:15 01/09/17 19:14 Albuterol Sulfate (Ventolin 0.083% 2.5MG/3ML Neb) 2.5 mg QID PRN INH 12/10/16 19:15 01/09/17 19:14 Calcium Carbonate (Tums Chew Tab) 500 mg BID PRN PO 12/10/16 19:15 01/09/17 19:14 Calcium/Vitamin D (Caltrate Plus Tab) 1 tab BIDM PO 12/11/16 07:30 01/10/17 07:59 12/11/16 16:32 1 TAB Docusate Sodium (coLACE CAP) 100 mg BID PO 12/11/16 09:00 01/10/17 08:59 12/11/16 20:04 100 MG Salmeterol Xinafoate/ Fluticasone (Advair Diskus 250/50 Inh) 1 puff BID INH 12/11/16 09:00 01/10/17 08:59 12/12/16 09:15 1 PUFF Lorazepam (Ativan Tab) 0.5 mg HS PRN PO 12/10/16 19:15 01/09/17 19:14 12/11/16 20:48 0.5 MG Magnesium Oxide (Mag-Ox Tab) 400 mg DAILY PO 12/11/16 09:00 01/10/17 08:59 12/11/16 08:44 400 MG Metoprolol Succinate (Toprol Xl Tab) 12.5 mg BID PO 12/10/16 21:00 01/09/17 20:59 12/12/16 09:16 12.5 MG Mirtazapine (Remeron Tab) 15 mg HS PO 12/10/16 21:00 01/09/17 20:59 12/11/16 20:04 15 MG Multivitamins (Multivitamin Tab) 1 tab DAILY PO 12/11/16 09:00 01/10/17 08:59 12/11/16 08:44 1 TAB Ondansetron HCl (Zofran Tab) 4 mg Q6 PRN PO 12/10/16 19:15 01/09/17 19:14 Oxycodone/ Acetaminophen (Percocet 5-325mg Tab) 1 tab Q8H PRN PO 12/10/16 19:15 12/24/16 19:14 12/12/16 03:56 1 TAB Cholecalciferol (Vitamin D Tab) 1,000 inter.unit DAILY PO 12/11/16 09:00 01/10/17 08:59 12/11/16 08:45 1,000 INTER.UNIT Paroxetine HCl (pAXil TAB) 40 mg DAILY PO 12/11/16 09:00 01/10/17 08:59 12/12/16 09:16 40 MG Prednisone (PredniSONE TAB) 5 mg DAILY PO 12/11/16 09:00 01/10/17 08:59 12/12/16 09:17 5 MG Tramadol HCl 50 mg 50 mg Q12H PRN PO 12/12/16 08:45 01/11/17 08:44 Pantoprazole Sodium/Syringe (Protonix Inj/ Syringe) 10 ml @ 5 mls/min DAILY@ IV 12/12/16 09:00 01/11/17 08:59 12/12/16 09:15 5 MLS/MIN
[2016-12-12] MEDS ORDERED: HEPARIN IV LOW DOSE NO BOLUS STA (10:25)
[2016-12-12 11:23] LABS: BUN/CREATININE RATIO 18.1 (10-20); CREATININE 1.6 mg/dl (0.60-1.20); POTASSIUM 4.3 mmol/L (3.5-5.1)
[2016-12-12 11:27] LABS: BASO % 0.2 %; BASO ABS # 0.02 K/uL (0-0.2); EOS % 0.5 %; HEMATOCRIT 27.5 % (37-47); IG% 0.5 %; LYMPH % 9.8 %; LYMPH ABS # 0.94 K/uL (1.2-3.4); MEAN CORPUSCULAR HEMOGLOBIN 31.1 pg (25-34); MEAN PLATELET VOLUME 8.4 fL (7.4-10.4); MONO % 7.4 %; NEUT % 81.6 %; PLATELET COUNT 435 K/uL (130-400); RED BLOOD COUNT 2.67 M/uL (4.2-5.4); WHITE BLOOD COUNT 9.62 K/uL (4.8-10.8)
[2016-12-12 11:38] LABS: MEAN CORPUSCULAR HGB CONC 30.2 g/dl (32-36)
[2016-12-12 11:40] LABS: INR 1.1 (0.9-1.1); PROTHROMBIN TIME (PATIENT) 11.6 SECONDS (9.0-12.0)
--- NOTE | 2016-12-12 11:41 | Cardiology Follow-Up ---
Subjective General Date of Service: December 12, 2016. Pt evaluation today including: conversation w/ patient, physical exam, chart review, lab review, review of studies, review of inpatient medication list History of Present Illness The patient is a 81 year old female seen in follow up. Complains of recurrent headache this morning - improved with analgesic. No CP or SOB. Offers no other complaints. Allergies Coded Allergies: Cefdinir (Unverified Allergy, Unknown, RASH, 12/10/16) Clonazepam (Unverified Allergy, Unknown, ., 12/10/16) Levofloxacin (Verified Allergy, Unknown, unknown, 12/10/16) Sulfasalazine (Unverified Allergy, Unknown, ., 12/10/16) Metoclopramide (Verified Adverse Reaction, Intermediate, TREMORS, 12/10/16) Social History Smoking Status: Never Smoker Hx Tobacco Use In Past Year?: No Hx Alcohol Use - Type And Amou: No Hx Substance Use - Type And Am: No Problem List Medical Problems: (1) Acute kidney injury Status: Acute (2) Anticoagulated on Coumadin Status: Acute (3) Bronchitis with bronchospasm Status: Acute (4) Creatinine elevation Status: Acute (5) Dehydration Status: Acute (6) Dyspnea Status: Acute (7) GI bleed Status: Acute (8) Hypotension Status: Acute (9) SBO (small bowel obstruction) Status: Acute (10) Sepsis due to urinary tract infection Status: Acute (11) Symptomatic anemia Status: Acute Review of Systems Respiratory: No cough, No dyspnea at rest, No dyspnea on exertion, No hemoptysis, No shortness of breath, No sputum, No wheezing Cardiac: No PND, No chest pain, No claudication, No edema, No orthopnea, No palpitations Physical Exam Vital Signs Last Vital Signs Documentation Date Time Temp Pulse Resp B/P Pulse Ox O2 Delivery O2 Flow Rate FiO2 12/12/16 08:00 96 Room Air 12/12/16 07:36 36.3 75 20 143/78 Physical Exam Constitutional: General Apperance: well-nourished Level of Distress: NAD Lungs: Auscultation: breath sounds normal, no wheezing, no rales/crackles, no rhonchi Cardiovascular: Heart Auscultation: RRR, normal S1, normal S2, I/ STEPHANIE Abdomen: Bowel Sounds: normal Inspection & Palpation: soft, non-distended, no tenderness, guarding & rebound Extremities: no cyanosis, no edema, no clubbing, no ulcers Neurologic: Gait & Station: pertinent finding (No focal motor deficit) Cranial Nerves: grossly intact Assessment and Plan Assessment and Plan FINAL IMPRESSION: 1. Anemia secondary to supratherapeutic INR. - No signs of ongoing blood loss currently. 2. History of transcatheter aortic valve replacement. 3. History of recurrent unprovoked pulmonary embolus, on chronic oral anticoagulation. - no evidence of DVt per venous duplex 4. Chronic coronary artery disease -- clinically stable. 5. Chronic lower extremity edema. 6. Chronic kidney disease -- creatinine at baseline. PLAN AND RECOMMENDATIONS: Follow hgb/ Hct. Restart coumadin today. Bridging therapy with heparin recommended by hematology. No further cardiac testing at this time. Will sign off. Please call with questions. Laboratory Results Last 24 Hours Test 12/11/16 14:25 12/12/16 00:00 12/12/16 07:10 12/12/16 10:35 Hemoglobin 8.3 g/dL 8.0 g/dL Hematocrit 28.0 % 25.7 % Stool Occult Blood NEGATIVE White Blood Count 8.90 K/uL Red Blood Count 2.52 M/uL Mean Corpuscular Volume 102.0 fL Mean Corpuscular Hemoglobin 31.7 pg Mean Corpuscular Hemoglobin Concent 31.1 g/dl Platelet Count 447 K/uL Mean Platelet Volume 8.6 fL Neutrophils (%) (Auto) 71.0 % Lymphocytes (%) (Auto) 16.4 % Monocytes (%) (Auto) 11.5 % Eosinophils (%) (Auto) 0.6 % Basophils (%) (Auto) 0.1 % Neutrophils # (Auto) 6.32 K/uL Lymphocytes # (Auto) 1.46 K/uL Monocytes # (Auto) 1.02 K/uL Eosinophils # (Auto) 0.05 K/uL Basophils # (Auto) 0.01 K/uL RDW Standard Deviation 64.2 fL RDW Coefficient of Variation 17.2 % Immature Granulocyte % (Auto) 0.4 % Immature Granulocyte # (Auto) 0.04 K/uL Polychromasia 1+ Prothrombin Time 11.9 SECONDS Prothromb Time International Ratio 1.1 D-Dimer 510 ug/L FEU Iron Level 29 mcg/dl Total Iron Binding Capacity 287 mcg/dl Transferrin 214 mg/dl Transferrin % Saturation 10 % Lactate Dehydrogenase 268 U/L Vitamin B12 Level 792 pg/mL Folate 21.41 ng/mL Sodium Level 141 mmol/L Potassium Level 4.3 mmol/L Chloride Level 108 mmol/L Carbon Dioxide Level 24 mmol/L Anion Gap 9.0 mmol/L Blood Urea Nitrogen 29 mg/dl Creatinine 1.60 mg/dl Est Creatinine Clear Calc Drug Dose 23.5 ml/min Estimated GFR () 34.2 Estimated GFR (Non- 29.5 BUN/Creatinine Ratio 18.1 Random Glucose 91 mg/dl Test 12/12/16 11:20 White Blood Count 9.62 K/uL Red Blood Count 2.67 M/uL Hemoglobin 8.3 g/dL Hematocrit 27.5 % Mean Corpuscular Volume 103.0 fL Mean Corpuscular Hemoglobin 31.1 pg Platelet Count 435 K/uL Mean Platelet Volume 8.4 fL Neutrophils (%) (Auto) 81.6 % Lymphocytes (%) (Auto) 9.8 % Monocytes (%) (Auto) 7.4 % Eosinophils (%) (Auto) 0.5 % Basophils (%) (Auto) 0.2 % Neutrophils # (Auto) 7.85 K/uL Lymphocytes # (Auto) 0.94 K/uL Monocytes # (Auto) 0.71 K/uL Eosinophils # (Auto) 0.05 K/uL Basophils # (Auto) 0.02 K/uL RDW Standard Deviation 63.8 fL RDW Coefficient of Variation 17.2 % Immature Granulocyte % (Auto) 0.5 % Immature Granulocyte # (Auto) 0.05 K/uL Nucleated RBC Absolute Count (auto) 0.03 K/uL Nucleated Red Blood Cells % 0.3 %
[2016-12-12] MEDS: HEPARIN 25,000 UNIT/500ML D5W 500 ML IV PRN (11:49)
[2016-12-12 11:54] LABS: CALCIUM 9.5 mg/dl (8.5-10.1)
[2016-12-12] MEDS ORDERED: CLINDAMYCIN CONSULT ACTIVE PRN ×2 (12:00)
[2016-12-12 12:02] LABS: COMPLETE YES; POLYCHROMASIA 1+
--- NOTE | 2016-12-12 12:11 | Neurology Progress Notes ---
Neurology Progress Note Date of Service December 12, 2016. Chris Slade is a 81 year old female with PMH of CAD s/p PCI, severe s/p TAVR, recurrent PE on Coumadin, anemia due to iron deficiency and CKD stage III, HTN, HL, history of GI bleed, arthritis on chronic prednisone. She had a recent admission to [facility] in October 2016 for COPD exacerbation and C. diff infection. She had out patient labs = INR 8, Hg 9, ESR >120. t She states she has had intermittent EPSTEIN for 2 weeks in across her forehead. She states she had a tooth extraction on the right 1 weeks ago. She has been taking 1 Percocet twice a day and some tylenol in between. She states the headache starts her forehead and then gets neck pain and then has some floating squiggly lines in her vision. She does not remember having migraines in the past. She reports black stool since she had C. diff in October 2016. She has been somewhat fatigued, and had some generalized weakness, increased LEONE. She was given prednisone 60 mg and then 10 mg which she thinks stopped the headache. Today the headache is worse again. She is back on her standard dose of her prednisone 5mg. It started in the right side of her face and goes down her neck. CP, abdominal pain, one sides weakness, numbness tingling, N V D, bowel or bladder issues, tenderness with chewing Objective Date Time Temp Pulse Resp B/P Pulse Ox O2 Delivery O2 Flow Rate FiO2 12/12/16 08:00 96 Room Air 12/12/16 07:36 36.3 75 20 143/78 96 12/12/16 04:41 36.4 80 16 154/86 97 Room Air 12/12/16 04:32 Room Air 12/12/16 00:00 Room Air 12/11/16 23:47 36.0 75 16 155/88 97 Room Air 12/11/16 20:21 36.3 81 18 129/79 100 Room Air 12/11/16 20:00 Room Air 12/11/16 19:21 36.4 93 20 171/70 95 Room Air 12/11/16 16:00 Room Air 12/11/16 15:40 36.4 73 18 103/60 100 Room Air 12/11/16 12:00 Room Air Last 24 Hours Test 12/11/16 14:25 12/12/16 00:00 12/12/16 07:10 12/12/16 10:35 Hemoglobin 8.3 g/dL 8.0 g/dL Hematocrit 28.0 % 25.7 % Stool Occult Blood NEGATIVE White Blood Count 8.90 K/uL Red Blood Count 2.52 M/uL Mean Corpuscular Volume 102.0 fL Mean Corpuscular Hemoglobin 31.7 pg Mean Corpuscular Hemoglobin Concent 31.1 g/dl Platelet Count 447 K/uL Mean Platelet Volume 8.6 fL Neutrophils (%) (Auto) 71.0 % Lymphocytes (%) (Auto) 16.4 % Monocytes (%) (Auto) 11.5 % Eosinophils (%) (Auto) 0.6 % Basophils (%) (Auto) 0.1 % Neutrophils # (Auto) 6.32 K/uL Lymphocytes # (Auto) 1.46 K/uL Monocytes # (Auto) 1.02 K/uL Eosinophils # (Auto) 0.05 K/uL Basophils # (Auto) 0.01 K/uL RDW Standard Deviation 64.2 fL RDW Coefficient of Variation 17.2 % Immature Granulocyte % (Auto) 0.4 % Immature Granulocyte # (Auto) 0.04 K/uL Polychromasia 1+ Prothrombin Time 11.9 SECONDS Prothromb Time International Ratio 1.1 D-Dimer 510 ug/L FEU Iron Level 29 mcg/dl Total Iron Binding Capacity 287 mcg/dl Transferrin 214 mg/dl Transferrin % Saturation 10 % Lactate Dehydrogenase 268 U/L Vitamin B12 Level 792 pg/mL Folate 21.41 ng/mL Sodium Level 141 mmol/L Potassium Level 4.3 mmol/L Chloride Level 108 mmol/L Carbon Dioxide Level 24 mmol/L Anion Gap 9.0 mmol/L Blood Urea Nitrogen 29 mg/dl Creatinine 1.60 mg/dl Est Creatinine Clear Calc Drug Dose 23.5 ml/min Estimated GFR () 34.2 Estimated GFR (Non- 29.5 BUN/Creatinine Ratio 18.1 Random Glucose 91 mg/dl Calcium Level 9.5 mg/dl Test 12/12/16 11:20 White Blood Count 9.62 K/uL Red Blood Count 2.67 M/uL Hemoglobin 8.3 g/dL Hematocrit 27.5 % Mean Corpuscular Volume 103.0 fL Mean Corpuscular Hemoglobin 31.1 pg Mean Corpuscular Hemoglobin Concent 30.2 g/dl Platelet Count 435 K/uL Mean Platelet Volume 8.4 fL Neutrophils (%) (Auto) 81.6 % Lymphocytes (%) (Auto) 9.8 % Monocytes (%) (Auto) 7.4 % Eosinophils (%) (Auto) 0.5 % Basophils (%) (Auto) 0.2 % Neutrophils # (Auto) 7.85 K/uL Lymphocytes # (Auto) 0.94 K/uL Monocytes # (Auto) 0.71 K/uL Eosinophils # (Auto) 0.05 K/uL Basophils # (Auto) 0.02 K/uL RDW Standard Deviation 63.8 fL RDW Coefficient of Variation 17.2 % Immature Granulocyte % (Auto) 0.5 % Immature Granulocyte # (Auto) 0.05 K/uL Nucleated RBC Absolute Count (auto) 0.03 K/uL Nucleated Red Blood Cells % 0.3 % Prothrombin Time 11.6 SECONDS Prothromb Time International Ratio 1.1 Activated Partial Thromboplast Time 26.4 SECONDS Partial Thromboplastin Ratio 1.0 Imaging: MRI with and without -No evidence of intracranial mass in this noncontrast study No evidence of acute or subacute infarction Foci of increased T2 signal within the mastoids, likely on an inflammatory basis Exam: Physical Exam: Constitutional: appearance nourished, healthy and normal Ears, Nose, Mouth and Throat: mucous membranes moist, no injection and skin normal, eyes normal Cardiovascular: normal S-1 and S-2 and regular rate and rhythm Respiratory: clear to auscultation (CTA) and no rales, rhonchi or wheeze Musculoskeletal: no peripheral edema tender with palpation of right face and edema Skin: no stigmata of neurocutaneous disease noted and normal and intact Eyes: extraocular muscles intact (EOMI) and pupils equal, round and reactive to light (PERRL) NEUROLOGIC EXAMINATION: Mental status: Alert and interactive Oriented to full date and location Oriented to person Speech fluent with no evidence of aphasia Cranial Nerves smile symmetric, unable to lift eye brows due to prior MOHS procedure. Coordination: finger to nose without bi pass Gait/Stance: Posture normal. stands without assistance balance stable Strength: hand emts biceps triceps 5/5 bilaterally, hip flex plantar flex ext 5/5 bilaterally Current Inpatient Medications Medications (Trade) Dose Ordered Sig/Rosi Route Start Time Stop Time Status Last Admin Dose Admin Ondansetron HCl (Zofran Inj) 4 mg Q6H PRN IV 12/10/16 19:15 01/09/17 19:14 Albuterol Sulfate (Ventolin 0.083% 2.5MG/3ML Neb) 2.5 mg QID PRN INH 12/10/16 19:15 01/09/17 19:14 Calcium Carbonate (Tums Chew Tab) 500 mg BID PRN PO 12/10/16 19:15 01/09/17 19:14 Calcium/Vitamin D (Caltrate Plus Tab) 1 tab BIDM PO 12/11/16 07:30 01/10/17 07:59 12/11/16 16:32 1 TAB Docusate Sodium (coLACE CAP) 100 mg BID PO 12/11/16 09:00 01/10/17 08:59 12/11/16 20:04 100 MG Salmeterol Xinafoate/ Fluticasone (Advair Diskus 250/50 Inh) 1 puff BID INH 12/11/16 09:00 01/10/17 08:59 12/12/16 09:15 1 PUFF Lorazepam (Ativan Tab) 0.5 mg HS PRN PO 12/10/16 19:15 01/09/17 19:14 12/11/16 20:48 0.5 MG Magnesium Oxide (Mag-Ox Tab) 400 mg DAILY PO 12/11/16 09:00 01/10/17 08:59 12/11/16 08:44 400 MG Metoprolol Succinate (Toprol Xl Tab) 12.5 mg BID PO 12/10/16 21:00 01/09/17 20:59 12/12/16 09:16 12.5 MG Mirtazapine (Remeron Tab) 15 mg HS PO 12/10/16 21:00 01/09/17 20:59 12/11/16 20:04 15 MG Multivitamins (Multivitamin Tab) 1 tab DAILY PO 12/11/16 09:00 01/10/17 08:59 12/11/16 08:44 1 TAB Ondansetron HCl (Zofran Tab) 4 mg Q6 PRN PO 12/10/16 19:15 01/09/17 19:14 Oxycodone/ Acetaminophen (Percocet 5-325mg Tab) 1 tab Q8H PRN PO 12/10/16 19:15 12/24/16 19:14 12/12/16 03:56 1 TAB Cholecalciferol (Vitamin D Tab) 1,000 inter.unit DAILY PO 12/11/16 09:00 01/10/17 08:59 12/11/16 08:45 1,000 INTER.UNIT Paroxetine HCl (pAXil TAB) 40 mg DAILY PO 12/11/16 09:00 01/10/17 08:59 12/12/16 09:16 40 MG Prednisone (PredniSONE TAB) 5 mg DAILY PO 12/11/16 09:00 01/10/17 08:59 12/12/16 09:17 5 MG Tramadol HCl 50 mg 50 mg Q12H PRN PO 12/12/16 08:45 01/11/17 08:44 Pantoprazole Sodium/Syringe (Protonix Inj/ Syringe) 10 ml @ 5 mls/min DAILY@09,21 IV 12/12/16 09:00 01/11/17 08:59 12/12/16 09:15 5 MLS/MIN Furosemide (Lasix Tab) 40 mg DAILY PO 12/13/16 09:00 01/12/17 08:59 Warfarin Sodium (Coumadin Tab) 2 mg TODAY@1600 ONCE PO 12/12/16 16:00 12/12/16 16:01 Miscellaneous Information 1 ea 1 ea NOW STAT N/A 12/12/16 10:25 12/12/16 10:26 UNV Heparin Sodium/ Dextrose (Heparin 25,000 Unit/500ml D5W) 500 ml @ 13 mls/hr Q24H PRN IV 12/12/16 11:00 01/11/17 10:59 12/12/16 11:49 13 MLS/HR Impression 81 year old female s/p headache and fatigue abnormal labs Plan 1. MRI with and without if valve is MRI compatible and renal functions with tolerate- new onset headache after 50 2. consult to general surgery for temporal biopsy 3. will need to clinic pharmacy advise for bridging for temporal artery biopsy 4. PT/OT for discharge needs 5. should follow up with ophthalmology for vision changes 6. inflammation of MRI in mastoid area -patient complaining of neck pain- mastoiditis should be in differential 7. prednisone helped previous would increase dose today to 40 mg and see if she needs a higher dose. unclear if steroids would effect biopsy results 8. will continue to follow I have seen and discussed above patient with Dr Manish Lyon, neurology Patient seen and evaluated along with noncontrast mri images Thei might be temporal arteritis but picture clinically a bit atypical and there is no tenderness of temporal arteries or nodularity but she dhd do a bit better on a single dose of prednisone ( 60 mg ) Agree with temporal artery biopsy antibiotic rx for post dental procedure infection potential and steroids in modest doses ie [address] Rocha in to address the mastoid issue but clinically doubt any acute mastoiditis and suspect the occipital pain is either due to arteritis or nonpsecific musculoskeletal or upper cervical in origin will check back tomorrow Yajaira Lyon MD
[2016-12-12 13:20] LABS: COMPLETE YES
[2016-12-12] MEDS: CLINDAMYCIN IV 600 MG in DEXTROSE 5% ADD-VANTAGE 50ML 50 ML IV SCH ×2 (13:35→20:13)
[2016-12-12] MEDS ORDERED: WARFARIN SOD 2 MG TAB PO ONE (16:00)
--- NOTE | 2016-12-12 16:11 | CONSULTATION REPORT ---
DATE OF CONSULTATION: 12/12/2016 DIAGNOSIS: Headache of unknown origin. HISTORY OF PRESENT ILLNESS: This 81-year-old lady was admitted several days ago because of headaches. She does have a history of PE and is on Coumadin. She was also seen by Dr. Perla Tang who felt that this may be due to temporal arteritis and she is getting a temporal artery biopsy. Past medical and chart were reviewed. I have no addendum to the past medical history. PHYSICAL EXAMINATION: GENERAL: Elderly female in no acute distress. She appears to be alert and oriented. HEAD: Normocephalic. EYES: Normal. EARS: Tympanic membranes are both intact and normal and pearly with no sign of fluid or infection. The mastoids are nontender and with no swelling. NOSE: Nasal passages patent. THROAT: Oropharynx - she does have dry mucosa, otherwise normal. NECK: Supple, no adenopathy. IMPRESSION: No sign of mastoiditis. RECOMMENDATIONS: No ENT intervention is needed.
[2016-12-12 18:16] LABS: PARTIAL THROMBOPLASTIN RATIO 1.5
--- NOTE | 2016-12-12 19:09 | Rheumatology Consultation ---
Rheumatology Consultation Date of Consultation: December 12, 2016. Reason for Consultation: Temporal arteritis History of Present Illness Ms. Conley is a very pleasant 81 yo F with osteoarthritis on chronic prednisone of 5 mg daily (followed by Dr. Lainez), CAD s/p PCI, aortic stenosis s/p TAVR, history of 2 pulmonary embolisms on chronic coumadin, COPD, and stage III CKD who was hospitalized in October for COPD exacerbation treated with antibiotics. Her hospital course was complicated by C. difficile infection treated with antibiotics. She was discharged home and reports that she continued to feel unwell. At the end of November, she developed new onset of headaches. She reports that she normally does not get headaches. She describes the headaches as sharp, throbbing pain that involved both the front of her head, her neck, and the right side of her face. She treated her headache with Tylenol and her pain medications. Early this month, she had a tooth extracted on the right side of her mouth which resulted in the bruise on her right lower jaw. She noted that the extraction went well and she receive amoxicillin prior to the procedure. She had a follow-up appointment on 12/10 with her PCP. She reported her headaches and her labs were notable for an INR of 8, hemoglobin of 9, and sed rate of > 120. She was advised to present to the ED and was admitted. Admission labs showed sed rate of 40, Cr 1.6, and anemia. Brain MRI did not show any acute infarcts but noted some inflammatory changes in right mastoid region. She was seen by neurology who recommend temporal artery biopsy. She received prednisone 60 mg x 1 with improvement of her headache. Today she received 40 mg. Currently, she notes that her headache has improved. She reports that she has noted blurry vision when her headaches began and some jaw pain. She denies scalp tenderness, fevers, chills, or joint swelling. Last weekend she felt unwell and slept most of the time. She noted a low grade temperature of 99. She was recently treated for thrush. She reports that her mouth feels sore and dry. She denies any oral or nasal ulcers. No new rashes. Past Medical/Surgical History Medical History: COPD, coronary artery disease, degenerative disc disease, GI bleed, high cholesterol, hypertension, osteoarthritis, osteoporosis, pulmonary embolism CKD III Aortic stenosis s/p TAVR Iron deficiency anemia Chronic steroid use C.diff infection COPD exacerbation Social History Smoking Status: Never Smoker History of Alcohol Use: No Drug Use: none Marital Status: Occupation Status: retired Review of Systems Constitutional: + fatigue, + weakness Eyes: + worsening of vision, No eye pain, No redness ENT: + dental problems, + trouble swallowing Respiratory: + dyspnea on exertion Cardiac: + edema Abdomen: + constipation, No diarrhea, No nausea, No pain, No vomiting Musculoskeletal: + joint pain, No swelling Skin: No rash easy bruising Allergies Coded Allergies: Cefdinir (Unverified Allergy, Unknown, RASH, 12/10/16) Clonazepam (Unverified Allergy, Unknown, ., 12/10/16) Levofloxacin (Verified Allergy, Unknown, unknown, 12/10/16) Sulfasalazine (Unverified Allergy, Unknown, ., 12/10/16) Metoclopramide (Verified Adverse Reaction, Intermediate, TREMORS, 12/10/16) Medications Current Inpatient Medications Medications (Trade) Dose Ordered Sig/Rosi Route Start Time Stop Time Status Last Admin Dose Admin Ondansetron HCl (Zofran Inj) 4 mg Q6H PRN IV 12/10/16 19:15 01/09/17 19:14 Albuterol Sulfate (Ventolin 0.083% 2.5MG/3ML Neb) 2.5 mg QID PRN INH 12/10/16 19:15 01/09/17 19:14 Calcium Carbonate (Tums Chew Tab) 500 mg BID PRN PO 12/10/16 19:15 01/09/17 19:14 Calcium/Vitamin D (Caltrate Plus Tab) 1 tab BIDM PO 12/11/16 07:30 01/10/17 07:59 12/12/16 17:23 1 TAB Docusate Sodium (coLACE CAP) 100 mg BID PO 12/11/16 09:00 01/10/17 08:59 12/11/16 20:04 100 MG Salmeterol Xinafoate/ Fluticasone (Advair Diskus 250/50 Inh) 1 puff BID INH 12/11/16 09:00 01/10/17 08:59 12/12/16 09:15 1 PUFF Lorazepam (Ativan Tab) 0.5 mg HS PRN PO 12/10/16 19:15 01/09/17 19:14 12/11/16 20:48 0.5 MG Magnesium Oxide (Mag-Ox Tab) 400 mg DAILY PO 12/11/16 09:00 01/10/17 08:59 12/11/16 08:44 400 MG Metoprolol Succinate (Toprol Xl Tab) 12.5 mg BID PO 12/10/16 21:00 01/09/17 20:59 12/12/16 09:16 12.5 MG Mirtazapine (Remeron Tab) 15 mg HS PO 12/10/16 21:00 01/09/17 20:59 12/11/16 20:04 15 MG Multivitamins (Multivitamin Tab) 1 tab DAILY PO 12/11/16 09:00 01/10/17 08:59 12/11/16 08:44 1 TAB Ondansetron HCl (Zofran Tab) 4 mg Q6 PRN PO 12/10/16 19:15 01/09/17 19:14 Oxycodone/ Acetaminophen (Percocet 5-325mg Tab) 1 tab Q8H PRN PO 12/10/16 19:15 12/24/16 19:14 12/12/16 13:34 1 TAB Cholecalciferol (Vitamin D Tab) 1,000 inter.unit DAILY PO 12/11/16 09:00 01/10/17 08:59 12/11/16 08:45 1,000 INTER.UNIT Paroxetine HCl (pAXil TAB) 40 mg DAILY PO 12/11/16 09:00 01/10/17 08:59 12/12/16 09:16 40 MG Tramadol HCl 50 mg 50 mg Q12H PRN PO 12/12/16 08:45 01/11/17 08:44 Pantoprazole Sodium/Syringe (Protonix Inj/ Syringe) 10 ml @ 5 mls/min DAILY@21 IV 12/12/16 09:00 01/11/17 08:59 12/12/16 09:15 5 MLS/MIN Furosemide (Lasix Tab) 40 mg DAILY PO 12/13/16 09:00 01/12/17 08:59 Clindamycin Phosphate 1 ea 1 ea UD PRN N/A 12/12/16 12:00 01/11/17 11:59 Heparin Sodium/ Dextrose (Heparin 25,000 Unit/500ml D5W) 500 ml @ 13 mls/hr Q24H PRN IV 12/12/16 11:00 01/11/17 10:59 12/12/16 11:49 13 MLS/HR Prednisone 40 mg 40 mg DAILY PO 12/13/16 09:00 01/12/17 08:59 Clindamycin Phosphate/Dextrose (Cleocin Iv/ Dextrose Add-[place] 50ML) 54 ml @ 108 mls/hr Q8@04,12,20 IV 12/12/16 12:30 12/22/16 12:29 12/12/16 13:35 108 MLS/HR Physical Exam Date Time Temp Pulse Resp B/P Pulse Ox O2 Delivery O2 Flow Rate FiO2 12/12/16 16:00 96 Room Air 12/12/16 15:06 36.7 76 18 115/69 99 12/12/16 12:00 96 Room Air 12/12/16 11:56 36.3 76 20 111/68 98 12/12/16 08:00 96 Room Air 12/12/16 07:36 36.3 75 20 143/78 96 12/12/16 04:41 36.4 80 16 154/86 97 Room Air 12/12/16 04:32 Room Air 12/12/16 00:00 Room Air 12/11/16 23:47 36.0 75 16 155/88 97 Room Air 12/11/16 20:21 36.3 81 18 129/79 100 Room Air 12/11/16 20:00 Room Air 12/11/16 19:21 36.4 93 20 171/70 95 Room Air Eyes: bilateral eyes EOMI, bilateral eyes normal inspection ENT: normal ENT inspection, hearing grossly normal Neck: supple, no adenopathy, thyroid normal, no carotid bruits Respiratory: chest non-tender, + crackles (LL base) Cardiovascular: regular rate, rhythm, no murmur, + pertinent finding (trace LE edema) Abdomen: non tender, soft Neurologic/Psychiatric: alert, normal mood/affect, oriented x 3 Skin: warm/dry (scattered ecchymoses and bruises on forearms; right lower jaw) Laboratory Results Last 24 Hours Test 12/12/16 00:00 12/12/16 07:10 12/12/16 10:35 12/12/16 11:20 Stool Occult Blood NEGATIVE White Blood Count 8.90 K/uL 9.62 K/uL Red Blood Count 2.52 M/uL 2.67 M/uL Hemoglobin 8.0 g/dL 8.3 g/dL Hematocrit 25.7 % 27.5 % Mean Corpuscular Volume 102.0 fL 103.0 fL Mean Corpuscular Hemoglobin 31.7 pg 31.1 pg Mean Corpuscular Hemoglobin Concent 31.1 g/dl 30.2 g/dl Platelet Count 447 K/uL 435 K/uL Mean Platelet Volume 8.6 fL 8.4 fL Neutrophils (%) (Auto) 71.0 % 81.6 % Lymphocytes (%) (Auto) 16.4 % 9.8 % Monocytes (%) (Auto) 11.5 % 7.4 % Eosinophils (%) (Auto) 0.6 % 0.5 % Basophils (%) (Auto) 0.1 % 0.2 % Neutrophils # (Auto) 6.32 K/uL 7.85 K/uL Lymphocytes # (Auto) 1.46 K/uL 0.94 K/uL Monocytes # (Auto) 1.02 K/uL 0.71 K/uL Eosinophils # (Auto) 0.05 K/uL 0.05 K/uL Basophils # (Auto) 0.01 K/uL 0.02 K/uL RDW Standard Deviation 64.2 fL 63.8 fL RDW Coefficient of Variation 17.2 % 17.2 % Immature Granulocyte % (Auto) 0.4 % 0.5 % Immature Granulocyte # (Auto) 0.04 K/uL 0.05 K/uL Polychromasia 1+ 1+ Peripheral Blood Smear Path Consult Prothrombin Time 11.9 SECONDS 11.6 SECONDS Prothromb Time International Ratio 1.1 1.1 D-Dimer 510 ug/L FEU Iron Level 29 mcg/dl Total Iron Binding Capacity 287 mcg/dl Transferrin 214 mg/dl Transferrin % Saturation 10 % Lactate Dehydrogenase 268 U/L Vitamin B12 Level 792 pg/mL Folate 21.41 ng/mL Sodium Level 141 mmol/L Potassium Level 4.3 mmol/L Chloride Level 108 mmol/L Carbon Dioxide Level 24 mmol/L Anion Gap 9.0 mmol/L Blood Urea Nitrogen 29 mg/dl Creatinine 1.60 mg/dl Est Creatinine Clear Calc Drug Dose 23.5 ml/min Estimated GFR () 34.2 Estimated GFR (Non- 29.5 BUN/Creatinine Ratio 18.1 Random Glucose 91 mg/dl Calcium Level 9.5 mg/dl Nucleated RBC Absolute Count (auto) 0.03 K/uL Nucleated Red Blood Cells % 0.3 % Activated Partial Thromboplast Time 26.4 SECONDS Partial Thromboplastin Ratio 1.0 Test 12/12/16 17:55 Activated Partial Thromboplast Time 38.9 SECONDS Partial Thromboplastin Ratio 1.5 Assessment & Plan Assessment & Plan: 81 yo F with new onset of headaches, jaw pain, and vision changes in the setting of markedly elevated sed rate. Temporal arteritis is high on the differential and should be further evaluated with bilateral temporal artery biopsies. 1. Would treat with prednisone 60 mg daily with breakfast for at least 2 weeks or until biopsy results are back. 2. Continue anticoagulation 3. Monitor for infection given recent dental procedure. 4. Temporal artery biopsy scheduled for Thursday12/15/16 5. Will make sure she has follow-up within 1-2 weeks of discharge with [facility] as she is followed by Dr. Lainez. Will be ok to schedule with me or Magda Lacy our new PA. Tapering of prednisone can be managed as an outpatient. Case was discussed with Dr. Schwab. Thank you for allowing rheumatology to participate in the care of this patient.
[2016-12-12] MEDS ORDERED: HEPARIN IV BOLUS 4,000 UNIT in SYRINGE 0 ML IV ONE (20:00)
[2016-12-12] MEDS: MIRTAZAPINE TAB 15 MG TAB PO SCH (20:13)
[2016-12-12] MEDS: LORAZEPAM 0.5 MG TAB PO PRN (21:18)
[2016-12-13] VITALS (14 sets, daily range): BP systolic 107–150; BP diastolic 50–77; PULSE 69–84; TEMP 36.4–37.1; O2SAT 93–100
[2016-12-13 01:58] LABS: PARTIAL THROMBOPLASTIN RATIO 4.7
[2016-12-13] MEDS: CLINDAMYCIN IV 600 MG in DEXTROSE 5% ADD-VANTAGE 50ML 50 ML IV SCH ×3 (03:40→21:59)
[2016-12-13 05:39] LABS: IG% 0.4 %; LYMPH % 13.9 %; LYMPH ABS # 0.97 K/uL (1.2-3.4); MEAN CORPUSCULAR HEMOGLOBIN 32.6 pg (25-34); MEAN CORPUSCULAR HGB CONC 31.7 g/dl (32-36); MEAN PLATELET VOLUME 8.8 fL (7.4-10.4); MONO % 2.3 %; NEUT % 83.4 %; PLATELET COUNT 398 K/uL (130-400); RED BLOOD COUNT 2.33 M/uL (4.2-5.4); WHITE BLOOD COUNT 6.97 K/uL (4.8-10.8)
[2016-12-13 05:59] LABS: COMPLETE YES; POLYCHROMASIA 1+
[2016-12-13 06:00] LABS: INR 1.2 (0.9-1.1); PARTIAL THROMBOPLASTIN RATIO 3.2; PROTHROMBIN TIME (PATIENT) 12.9 SECONDS (9.0-12.0)
[2016-12-13 06:09] LABS: BUN/CREATININE RATIO 17.5 (10-20); CALCIUM 8.7 mg/dl (8.5-10.1); CREATININE 1.5 mg/dl (0.60-1.20); POTASSIUM 4.5 mmol/L (3.5-5.1)
[2016-12-13] MEDS: FLUTICASONE/SALMETEROL 250/50 (ADVAIR) 14 PUFF/1 INHALER INH SCH ×2 (08:33→20:54)
[2016-12-13] MEDS: METOPROLOL SUCC 25MG EXT REL TAB PO SCH ×2 (08:34→20:55)
[2016-12-13] MEDS: PAROXETINE 20 MG TAB PO SCH (08:34)
[2016-12-13] MEDS: PANTOprazole INJ 40 MG in SYRINGE 0 ML IV SCH ×2 (08:34→20:54)
[2016-12-13] MEDS: MULTIVITAMIN TAB PO SCH (08:34)
[2016-12-13] MEDS: FUROSEMIDE 40 MG TAB PO SCH (08:35)
[2016-12-13] MEDS: DOCUSATE SODIUM 100 MG CAP PO SCH ×2 (08:35→20:54)
[2016-12-13] MEDS: CALCIUM 600MG + VIT D 400 IU TAB PO SCH ×2 (08:35→17:00)
[2016-12-13] MEDS: CHOLECALCIFEROL 1000 INTER.UNIT TAB PO SCH (08:35)
[2016-12-13] MEDS: MAGNESIUM OXIDE 400 MG TAB PO SCH (08:35)
[2016-12-13 09:52] LABS: PARTIAL THROMBOPLASTIN RATIO 2.5
--- NOTE | 2016-12-13 11:31 | Surgery Consultation ---
Consultation Date of Consultation: December 13, 2016. Attending Physician: Jimenez Hayes MD History of Present Illness pt admitted for severe headaches for several weeks now. recently had a tooth pulled but states she had the headaches prior to that. she is on coumadin for a lower extremity dvt. was also having melena and decreased hg. Past Medical/Surgical History Medical Problems: (1) Acute kidney injury Status: Acute (2) Anticoagulated on Coumadin Status: Acute (3) Bronchitis with bronchospasm Status: Acute (4) Creatinine elevation Status: Acute (5) Dehydration Status: Acute (6) Dyspnea Status: Acute (7) GI bleed Status: Acute (8) Hypotension Status: Acute (9) SBO (small bowel obstruction) Status: Acute (10) Sepsis due to urinary tract infection Status: Acute (11) Symptomatic anemia Status: Acute Family History Cancer Diabetes mellitus FH: cardiovascular disease MOTHER Gallbladder disease Hypertension Social History Smoking Status: Never Smoker Drug Use: none Marital Status: Housing Status: lives alone Occupation Status: retired Allergies Coded Allergies: Cefdinir (Unverified Allergy, Unknown, RASH, 12/10/16) Clonazepam (Unverified Allergy, Unknown, ., 12/10/16) Levofloxacin (Verified Allergy, Unknown, unknown, 12/10/16) Sulfasalazine (Unverified Allergy, Unknown, ., 12/10/16) Metoclopramide (Verified Adverse Reaction, Intermediate, TREMORS, 12/10/16) Home Medications Scheduled Ascorbic Acid (Vitamin C), 500 MG PO DAILY Aspirin (Aspirin EC Low Dose), 81 MG PO DAILY Calcium/Vitamin D (Os-Ismael 500 Plus D), 1 TAB PO BIDM Cholecalciferol (Vitamin D3), 1 CAP PO DAILY Docusate Sodium (Colace), 1 CAP PO DAILY Ferrous Sulfate (Ferrous Sulfate), 325 MG PO BID Fluticasone Prop/Salmeterol (Advair Diskus 250/50 60 Dose), 1 PUFF INH BID Furosemide (Lasix), 40 MG PO DAILY Lactobacillus Acidophilus (Lactinex), 1 TAB PO TID Magnesium Oxide (Mag-Ox), 400 MG PO DAILY Metoprolol Succinate (Metoprolol Succinate ER), 12.5 MG PO BID Mirtazapine (Remeron), 1 TAB PO HS Multiple Vitamin (Multivitamin), 1 TABLET PO DAILY Oxygen (Oxygen), 3 LITERS NA UD Pantoprazole Sodium (Protonix), 1 TAB PO DAILY Paroxetine (Paroxetine HCl), 40 MG PO DAILY Potassium Chloride (Potassium Chloride Er), 10 MEQ PO BID Prednisone (Prednisone), 5 MG PO DAILY Warfarin Sod (Jantoven), 2 MG PO UD Scheduled PRN Acetaminophen (Tylenol), 650 MG PO Q4 PRN for Pain Albuterol Sulf (Proventil 0.083% 2.5MG/3ML), 2.5 MG INH QID PRN for SOB/Wheezing Calcium Carbonate (Tums), 500 MG PO BID PRN for Heartburn Lorazepam (Lorazepam), 0.5 MG PO HS PRN for Insomnia Ondansetron Hcl (Zofran), 4 MG PO Q6 PRN for Nausea Oxycodone/Acetaminophen 5MG/325MG (Percocet 5MG/325MG), 1 TABLET PO Q8H PRN for Pain Current Inpatient Medications Current Inpatient Medications Medications (Trade) Dose Ordered Sig/Rosi Route Start Time Stop Time Status Last Admin Dose Admin Ondansetron HCl (Zofran Inj) 4 mg Q6H PRN IV 12/10/16 19:15 01/09/17 19:14 Albuterol Sulfate (Ventolin 0.083% 2.5MG/3ML Neb) 2.5 mg QID PRN INH 12/10/16 19:15 01/09/17 19:14 Calcium Carbonate (Tums Chew Tab) 500 mg BID PRN PO 12/10/16 19:15 01/09/17 19:14 Calcium/Vitamin D (Caltrate Plus Tab) 1 tab BIDM PO 12/11/16 07:30 01/10/17 07:59 12/13/16 08:35 1 TAB Docusate Sodium (coLACE CAP) 100 mg BID PO 12/11/16 09:00 01/10/17 08:59 12/13/16 08:35 100 MG Salmeterol Xinafoate/ Fluticasone (Advair Diskus 250/50 Inh) 1 puff BID INH 12/11/16 09:00 01/10/17 08:59 12/13/16 08:33 1 PUFF Lorazepam (Ativan Tab) 0.5 mg HS PRN PO 12/10/16 19:15 01/09/17 19:14 12/12/16 21:18 0.5 MG Magnesium Oxide (Mag-Ox Tab) 400 mg DAILY PO 12/11/16 09:00 01/10/17 08:59 12/13/16 08:35 400 MG Metoprolol Succinate (Toprol Xl Tab) 12.5 mg BID PO 12/10/16 21:00 01/09/17 20:59 12/13/16 08:34 12.5 MG Mirtazapine (Remeron Tab) 15 mg HS PO 12/10/16 21:00 01/09/17 20:59 12/12/16 20:13 15 MG Multivitamins (Multivitamin Tab) 1 tab DAILY PO 12/11/16 09:00 01/10/17 08:59 12/13/16 08:34 1 TAB Ondansetron HCl (Zofran Tab) 4 mg Q6 PRN PO 12/10/16 19:15 01/09/17 19:14 Oxycodone/ Acetaminophen (Percocet 5-325mg Tab) 1 tab Q8H PRN PO 12/10/16 19:15 12/24/16 19:14 12/12/16 21:19 1 TAB Cholecalciferol (Vitamin D Tab) 1,000 inter.unit DAILY PO 12/11/16 09:00 01/10/17 08:59 12/13/16 08:35 1,000 INTER.UNIT Paroxetine HCl (pAXil TAB) 40 mg DAILY PO 12/11/16 09:00 01/10/17 08:59 12/13/16 08:34 40 MG Tramadol HCl 50 mg 50 mg Q12H PRN PO 12/12/16 08:45 01/11/17 08:44 Pantoprazole Sodium/Syringe (Protonix Inj/ Syringe) 10 ml @ 5 mls/min DAILY@ IV 12/12/16 09:00 01/11/17 08:59 12/13/16 08:34 5 MLS/MIN Furosemide (Lasix Tab) 40 mg DAILY PO 12/13/16 09:00 01/12/17 08:59 12/13/16 08:35 40 MG Clindamycin Phosphate 1 ea 1 ea UD PRN N/A 12/12/16 12:00 01/11/17 11:59 Heparin Sodium/ Dextrose 500 ml @ 12 mls/hr Q24H PRN IV 12/12/16 11:00 01/11/17 10:59 12/12/16 11:49 13 MLS/HR Clindamycin Phosphate/Dextrose (Cleocin Iv/ Dextrose Add-[place] 50ML) 54 ml @ 108 mls/hr Q8@04,12,20 IV 12/12/16 12:30 12/22/16 12:29 12/13/16 03:40 108 MLS/HR Prednisone (PredniSONE TAB) 60 mg DAILY PO 12/13/16 09:00 01/12/17 08:59 12/13/16 08:36 60 MG Senna/Docusate Sodium (Senokot S Tab) 1 tab DAILY PRN PO 12/13/16 10:45 01/12/17 10:44 Review of Systems Constitutional: + problem reported (headaches) Eyes: + eye pain ENT: + dental problems Abdomen: + GI bleeding Musculoskeletal: + joint pain Neurologic: + problem reported (some vision changes associated with her headache) Physical Exam Date Time Temp Pulse Resp B/P Pulse Ox O2 Delivery O2 Flow Rate FiO2 12/13/16 07:35 36.8 69 20 107/64 97 Room Air 12/13/16 05:07 36.5 70 20 132/76 97 Room Air 12/13/16 04:10 Room Air 12/13/16 00:00 Room Air 12/12/16 23:32 36.5 76 20 125/79 95 Room Air 12/12/16 21:03 Room Air 12/12/16 19:23 36.6 75 20 132/81 98 Room Air 12/12/16 16:00 96 Room Air 12/12/16 15:06 36.7 76 18 115/69 99 12/12/16 12:00 96 Room Air 12/12/16 11:56 36.3 76 20 111/68 98 General Appearance: no apparent distress Head: normocephalic, + pertinent finding (ecchymosis on right side of face from recent dental procedure) Neck: no JVD Respiratory/Chest: no respiratory distress, no accessory muscle use Abdomen/GI: non tender, soft Neurologic/Psych: alert, oriented x 3 Skin: warm/dry, no rash Laboratory Results Last 24 Hours Test 12/12/16 17:55 12/13/16 01:12 12/13/16 05:24 12/13/16 09:15 Activated Partial Thromboplast Time 38.9 SECONDS 121.4 SECONDS 82.8 SECONDS 65.0 SECONDS Partial Thromboplastin Ratio 1.5 4.7 3.2 2.5 White Blood Count 6.97 K/uL Red Blood Count 2.33 M/uL Hemoglobin 7.6 g/dL Hematocrit 24.0 % Mean Corpuscular Volume 103.0 fL Mean Corpuscular Hemoglobin 32.6 pg Mean Corpuscular Hemoglobin Concent 31.7 g/dl Platelet Count 398 K/uL Mean Platelet Volume 8.8 fL Neutrophils (%) (Auto) 83.4 % Lymphocytes (%) (Auto) 13.9 % Monocytes (%) (Auto) 2.3 % Eosinophils (%) (Auto) 0.0 % Basophils (%) (Auto) 0.0 % Neutrophils # (Auto) 5.81 K/uL Lymphocytes # (Auto) 0.97 K/uL Monocytes # (Auto) 0.16 K/uL Eosinophils # (Auto) 0.00 K/uL Basophils # (Auto) 0.00 K/uL RDW Standard Deviation 63.6 fL RDW Coefficient of Variation 17.0 % Immature Granulocyte % (Auto) 0.4 % Immature Granulocyte # (Auto) 0.03 K/uL Polychromasia 1+ Prothrombin Time 12.9 SECONDS Prothromb Time International Ratio 1.2 Sodium Level 140 mmol/L Potassium Level 4.5 mmol/L Chloride Level 106 mmol/L Carbon Dioxide Level 26 mmol/L Anion Gap 8.0 mmol/L Blood Urea Nitrogen 26 mg/dl Creatinine 1.50 mg/dl Est Creatinine Clear Calc Drug Dose 25.0 ml/min Estimated GFR () 37.0 Estimated GFR (Non- 31.9 BUN/Creatinine Ratio 17.5 Random Glucose 139 mg/dl Calcium Level 8.7 mg/dl Assessment & Plan 1. headaches requested to perform temporal artery bx this admission while off coumadin/ bridged with heparin. discussed the procedure with her including risks ( bleeding/infection/dvt/pe/ mi/etc...) per cardiology ok, however will d/w with primary team regarding hg prior to anesthesia plan to do thursday 2. gi bleed. gastroenterology on board. for now not planning endoscopy.
[2016-12-13] MEDS: DOCUSATE SODIUM/SENNA 50/8.6MG TAB PO PRN (12:18)
--- NOTE | 2016-12-13 12:22 | PROGRESS NOTE ---
DATE: 12/13/2016 DATE: 12/13/2016. Yany looks great today. Her headache has significantly improved. She is on 40 of prednisone. Apparently the system has worked itself out and she is going to have her temporal artery biopsy done tomorrow on an inpatient basis rather than waiting for an outpatient. She is currently on heparin so the bridging issue on her Coumadin has been avoided, at least avoided in terms of having this done on an outpatient basis. For now rheumatology is apparently on board. They recommended steroids be moved up to 60 mg which is frankly what I would have chosen to do and I think they can assume her care at this time once the temporal artery biopsy in back. 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 I will check back with her tomorrow and Perla Bergman and I will probably take a look at her again on Thursday if she is still here which I suspect she will be. MEG
[2016-12-13] MEDS: LORAZEPAM INJ 0.5 MG in SYRINGE 0.75 ML IV PRN (14:47)
--- NOTE | 2016-12-13 17:36 | Progress Note ---
Medicine Progress Note Date & Time of Visit: December 13, 2016 at 17:28. Subjective patient seen resting in bed states she feels tired today, some dyspnea with exertion denies chest pain no abdominal pain, no BM today no bleeding headache resolved no other symptoms Objective Last 8 Hrs Date Time Temp Pulse Resp B/P Pulse Ox O2 Delivery O2 Flow Rate FiO2 12/13/16 16:00 97 Room Air 12/13/16 15:03 37.1 84 20 150/77 100 2.0 12/13/16 14:23 78 18 93 Nasal Cannula 2.0 12/13/16 12:00 97 Room Air 12/13/16 11:31 36.6 77 20 118/67 97 Physical Exam: General- oriented x 3, not in distress, speaks in sentences with no effort Eyes- anicteric ENT-RESOLVED facial edema and erythema on the right lower half of the face NO tenderness on the temporal region no erythema/swelling/discharge noted on inspection of the buccal mucosa , teeth, gums oropharynx clear no tenesmus Neck- supple, no JVD, no adenopathy Lungs- clear breath sounds no rales/wheezes b/l Heart- normal rate, regular rhythm; no murmurs Abdomen- normal bowel sounds, soft, nontender Extremities- trace lower leg edema, no calf tenderness; peripheral pulses intact Neuro- alert, oriented x 3; no gross focal deficits Skin- warm & dry Laboratory Results: Last 24 Hours Test 12/12/16 17:55 12/13/16 01:12 12/13/16 05:24 12/13/16 09:15 Activated Partial Thromboplast Time 38.9 SECONDS 121.4 SECONDS 82.8 SECONDS 65.0 SECONDS Partial Thromboplastin Ratio 1.5 4.7 3.2 2.5 White Blood Count 6.97 K/uL Red Blood Count 2.33 M/uL Hemoglobin 7.6 g/dL Hematocrit 24.0 % Mean Corpuscular Volume 103.0 fL Mean Corpuscular Hemoglobin 32.6 pg Mean Corpuscular Hemoglobin Concent 31.7 g/dl Platelet Count 398 K/uL Mean Platelet Volume 8.8 fL Neutrophils (%) (Auto) 83.4 % Lymphocytes (%) (Auto) 13.9 % Monocytes (%) (Auto) 2.3 % Eosinophils (%) (Auto) 0.0 % Basophils (%) (Auto) 0.0 % Neutrophils # (Auto) 5.81 K/uL Lymphocytes # (Auto) 0.97 K/uL Monocytes # (Auto) 0.16 K/uL Eosinophils # (Auto) 0.00 K/uL Basophils # (Auto) 0.00 K/uL RDW Standard Deviation 63.6 fL RDW Coefficient of Variation 17.0 % Immature Granulocyte % (Auto) 0.4 % Immature Granulocyte # (Auto) 0.03 K/uL Polychromasia 1+ Prothrombin Time 12.9 SECONDS Prothromb Time International Ratio 1.2 Sodium Level 140 mmol/L Potassium Level 4.5 mmol/L Chloride Level 106 mmol/L Carbon Dioxide Level 26 mmol/L Anion Gap 8.0 mmol/L Blood Urea Nitrogen 26 mg/dl Creatinine 1.50 mg/dl Est Creatinine Clear Calc Drug Dose 25.0 ml/min Estimated GFR () 37.0 Estimated GFR (Non- 31.9 BUN/Creatinine Ratio 17.5 Random Glucose 139 mg/dl Calcium Level 8.7 mg/dl Assessment & Plan 81 year old female with history of CHF, CAD, TAVR, PE on coumadin, Arthritis on Chronic Prednisone, presenting with abnormal labs. Acute Blood loss Anemia in the setting of Supratherapeutic INR possible underlying Upper GI Bleed Reports of melena; stool is dark heme positive on ER provider's exam Patient on Coumadin with supratherapeutic INR (8 on outpatient lab) Hg was 9.0 today as outpatient -> 8.7 in ER; baseline 11's-12's due to iron deficiency anemia and anemia of CKD -- given Vitamin K coumadin held -- INR 1.8 from > 8 Hg 8.3 from 8.7 -- evaluated by GI, EGD not recommended at this time -- placed on Protonix drip, change to Protonix BI held coumadin and Aspirin -- discussed case with GI and Hematology Hg stable, no signs of active gi bleed resumed coumadin with bridging heparin continue Hg monitoring and Protonix BID -- hg 7.7 symptomatic no signs of active bleeding though 1 unit prbc with lasix monitor Hg start Iron PO HISTORY OF PE - 1st episode 2005: seen by Dr. 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 biopsy for Thursday on empiric Prednisone 60mg daily headache resolve Protonix IV BID -- possible RIGHT SIDED FACIAL CELLULITIS, IN THE SETTING OF RECENT DENTAL EXTRACTION? CHRONIC PREDNISONE USE blood cultures: pending Day 2 Clindamycin swelling, erythema, tenderness resolved Lactinex ordered HX SEVERE AORTIC STENOSIS, S/P TAVR 05/2016 HX CHF DUE TO VALVULAR DISEASE -No acute decompensation Echo 11/2015- Ejection Fraction = 65-70%. There is severe concentric left ventricular hypertrophy. There is severe calcific aortic valve stenosis. Mild aortic regurgitation. There is mild to moderate tricuspid regurgitation. Grade I diastolic dysfunction, (abnormal relaxation pattern). -- euvolemic -- resumed Lasix PO --Cardiology consulted CAD S/P PCI TO RCA 2011 Denies chest pain Aspirin held for GIB/ anemia, on heparin Continue Metoprolol CKD STAGE III Creat is 1.6; baseline trended up over past 6 months from 1.2-> 1.5 -- stable ASTHMA Not in acute exacerbation Continue home inhalers CHRONIC RESPIRATORY FAILURE Currently saturating well on RA Continue home O2 2 liters NC HS and PRN OSTEOARTHRITIS On chronic prednisone 5 mg daily ANXIETY Continue home medications DVT PROPHYLAXIS heparin _ coumadin DISPOSITION Lives with Follows with Dr. Inman for primary care Current Inpatient Medications: Current Inpatient Medications Medications (Trade) Dose Ordered Sig/Rosi Route Start Time Stop Time Status Last Admin Dose Admin Ondansetron HCl (Zofran Inj) 4 mg Q6H PRN IV 12/10/16 19:15 01/09/17 19:14 Albuterol Sulfate (Ventolin 0.083% 2.5MG/3ML Neb) 2.5 mg QID PRN INH 12/10/16 19:15 01/09/17 19:14 12/13/16 14:23 2.5 MG Calcium Carbonate (Tums Chew Tab) 500 mg BID PRN PO 12/10/16 19:15 01/09/17 19:14 Calcium/Vitamin D (Caltrate Plus Tab) 1 tab BIDM PO 12/11/16 07:30 01/10/17 07:59 12/13/16 08:35 1 TAB Docusate Sodium (coLACE CAP) 100 mg BID PO 12/11/16 09:00 01/10/17 08:59 12/13/16 08:35 100 MG Salmeterol Xinafoate/ Fluticasone (Advair Diskus 250/50 Inh) 1 puff BID INH 12/11/16 09:00 01/10/17 08:59 12/13/16 08:33 1 PUFF Lorazepam (Ativan Tab) 0.5 mg HS PRN PO 12/10/16 19:15 01/09/17 19:14 12/12/16 21:18 0.5 MG Magnesium Oxide (Mag-Ox Tab) 400 mg DAILY PO 12/11/16 09:00 01/10/17 08:59 12/13/16 08:35 400 MG Metoprolol Succinate (Toprol Xl Tab) 12.5 mg BID PO 12/10/16 21:00 01/09/17 20:59 12/13/16 08:34 12.5 MG Mirtazapine (Remeron Tab) 15 mg HS PO 12/10/16 21:00 01/09/17 20:59 12/12/16 20:13 15 MG Multivitamins (Multivitamin Tab) 1 tab DAILY PO 12/11/16 09:00 01/10/17 08:59 12/13/16 08:34 1 TAB Ondansetron HCl (Zofran Tab) 4 mg Q6 PRN PO 12/10/16 19:15 01/09/17 19:14 Oxycodone/ Acetaminophen (Percocet 5-325mg Tab) 1 tab Q8H PRN PO 12/10/16 19:15 12/24/16 19:14 12/12/16 21:19 1 TAB Cholecalciferol (Vitamin D Tab) 1,000 inter.unit DAILY PO 12/11/16 09:00 01/10/17 08:59 12/13/16 08:35 1,000 INTER.UNIT Paroxetine HCl (pAXil TAB) 40 mg DAILY PO 12/11/16 09:00 01/10/17 08:59 12/13/16 08:34 40 MG Tramadol HCl 50 mg 50 mg Q12H PRN PO 12/12/16 08:45 01/11/17 08:44 Pantoprazole Sodium/Syringe (Protonix Inj/ Syringe) 10 ml @ 5 mls/min DAILY@09,21 IV 12/12/16 09:00 01/11/17 08:59 12/13/16 08:34 5 MLS/MIN Furosemide (Lasix Tab) 40 mg DAILY PO 12/13/16 09:00 01/12/17 08:59 12/13/16 08:35 40 MG Clindamycin Phosphate 1 ea 1 ea UD PRN N/A 12/12/16 12:00 01/11/17 11:59 Heparin Sodium/ Dextrose 500 ml @ 12 mls/hr Q24H PRN IV 12/12/16 11:00 01/11/17 10:59 12/12/16 11:49 13 MLS/HR Clindamycin Phosphate/Dextrose (Cleocin Iv/ Dextrose Add-[place] 50ML) 54 ml @ 108 mls/hr Q8@04,12,20 IV 12/12/16 12:30 12/22/16 12:29 12/13/16 12:18 108 MLS/HR Prednisone (PredniSONE TAB) 60 mg DAILY PO 12/13/16 09:00 01/12/17 08:59 12/13/16 08:36 60 MG Senna/Docusate Sodium 1 tab 1 tab DAILY PRN PO 12/13/16 10:45 01/12/17 10:44 12/13/16 12:18 1 TAB Lorazepam/Syringe (Ativan Inj/ Syringe) 1 ml @ 0.5 mls/min Q12H PRN IV 12/13/16 14:15 01/12/17 14:14 12/13/16 14:47 0.5 MLS/MIN
[2016-12-13] MEDS ORDERED: FUROSEMIDE INJ 20 MG in SYRINGE 0 ML IV SCH (19:00)
[2016-12-13] MEDS: MIRTAZAPINE TAB 15 MG TAB PO SCH (20:54)
[2016-12-13] MEDS: LORAZEPAM 0.5 MG TAB PO PRN (20:58)
[2016-12-13] MEDS: HEPARIN 25,000 UNIT/500ML D5W 500 ML IV PRN (23:40)
[2016-12-14] VITALS (10 sets, daily range): BP systolic 120–170; BP diastolic 71–99; PULSE 72–83; TEMP 36.5–37; O2SAT 96–100
[2016-12-14] MEDS: CLINDAMYCIN IV 600 MG in DEXTROSE 5% ADD-VANTAGE 50ML 50 ML IV SCH ×3 (03:31→19:50)
[2016-12-14 07:28] LABS: BASO % 0.1 %; BASO ABS # 0.01 K/uL (0-0.2); COMPLETE YES; HEMATOCRIT 30.3 % (37-47); IG% 0.7 %; LYMPH % 10.1 %; LYMPH ABS # 1.25 K/uL (1.2-3.4); MEAN CELL VOLUME 98.7 fL (80-100); MEAN CORPUSCULAR HEMOGLOBIN 30.6 pg (25-34); MEAN PLATELET VOLUME 8.8 fL (7.4-10.4); MONO % 9.6 %; NEUT % 79.5 %; PLATELET COUNT 431 K/uL (130-400); RED BLOOD COUNT 3.07 M/uL (4.2-5.4); WHITE BLOOD COUNT 12.35 K/uL (4.8-10.8)
[2016-12-14 07:44] LABS: INR 1.4 (0.9-1.1); PROTHROMBIN TIME (PATIENT) 15.1 SECONDS (9.0-12.0)
[2016-12-14] MEDS ORDERED: LACTOBACILLUS ACIDOPHILUS 1 GM PACK PO SCH (08:00)
[2016-12-14] MEDS: FLUTICASONE/SALMETEROL 250/50 (ADVAIR) 14 PUFF/1 INHALER INH SCH ×2 (08:19→19:51)
[2016-12-14] MEDS: PANTOprazole INJ 40 MG in SYRINGE 0 ML IV SCH (08:19)
[2016-12-14] MEDS: METOPROLOL SUCC 25MG EXT REL TAB PO SCH ×2 (08:20→20:03)
[2016-12-14] MEDS: CHOLECALCIFEROL 1000 INTER.UNIT TAB PO SCH (08:20)
[2016-12-14] MEDS: FUROSEMIDE 40 MG TAB PO SCH (08:21)
[2016-12-14] MEDS: DOCUSATE SODIUM/SENNA 50/8.6MG TAB PO PRN (08:21)
[2016-12-14] MEDS: MULTIVITAMIN TAB PO SCH (08:21)
[2016-12-14] MEDS: PAROXETINE 20 MG TAB PO SCH (08:22)
[2016-12-14] MEDS: FERROUS SULFATE 325 MG TAB PO SCH ×2 (08:22→17:25)
[2016-12-14] MEDS: MAGNESIUM OXIDE 400 MG TAB PO SCH (08:22)
[2016-12-14] MEDS: DOCUSATE SODIUM 100 MG CAP PO SCH ×2 (08:22→19:52)
[2016-12-14] MEDS: CALCIUM 600MG + VIT D 400 IU TAB PO SCH ×2 (08:22→17:25)
[2016-12-14 08:31] LABS: BUN/CREATININE RATIO 19.2 (10-20); CREATININE 1.3 mg/dl (0.60-1.20)
[2016-12-14 08:47] LABS: CALCIUM 8.7 mg/dl (8.5-10.1)
[2016-12-14] MEDS ORDERED: POTASSIUM CHLORIDE PWD 20 MEQ PACK PO ONE (09:15)
--- NOTE | 2016-12-14 09:50 | Anesthesiology Progress Note ---
Pre-OP Anesthesia Assessment Date of Note December 14, 2016. Review patient information reviewed, chart reviewed, labs reviewed Notes 81 yo female has recent onset of headaches, scheduled for temporal artery biopsy. Extensive PMH includes HTN, CAD/PTCA, CHF, aortic stenosis, aortic valve replacement, asthma, PE (was on coumadin, now heparin), gastroparesis, GERD, hiatal hernia, diverticulosis, GI bleeding, anemia, Factor V deficiency. Admits to dyspnea on minimal exertion and was recently prescribed home O2 PRN. Hypokalemic (K = 3.0) this morning. RN stated she would ask hospitalist to order potassium replacement. MAC discussed with pt. She expressed understanding and signed informe consent. Will require correction of hypokalemia pre-op.
[2016-12-14] MEDS ORDERED: POTASSIUM CHLORIDE 10 MEQ TABCR PO ONE (10:00)
[2016-12-14] MEDS ORDERED: NURSING VERBAL MED ORDER ONE (11:15)
[2016-12-14] MEDS: LACTOBACILLUS ACIDOPHILUS (FLORANEX) TAB PO SCH ×2 (11:55→17:26)
--- NOTE | 2016-12-14 15:32 | Progress Note ---
Medicine Progress Note Date & Time of Visit: December 14, 2016 at 15:24. Subjective seen sitting up in bed, comfortable breathing has improved, no cough no signs of bleeding no abdominal pain, nausea no headache, facial pain no chest pain, dyspnea, palpitations denies other symptoms Objective Last 8 Hrs Date Time Temp Pulse Resp B/P Pulse Ox O2 Delivery O2 Flow Rate FiO2 12/14/16 12:49 36.5 76 18 156/83 98 Nasal Cannula 2.0 12/14/16 12:00 97 Nasal Cannula 2.0 12/14/16 08:00 97 Nasal Cannula 2.0 12/14/16 07:59 37.0 75 18 170/99 97 Nasal Cannula 2.0 Physical Exam: General- oriented x 3, not in distress, speaks in sentences with no effort Eyes- anicteric ENT-RESOLVED facial edema and erythema on the right lower half of the face NO tenderness on the temporal region Neck- no JVD, no adenopathy Lungs- mild rales left base, clear on the right Heart- normal rate, regular rhythm; no murmurs Abdomen- normal bowel sounds, soft, nontender Extremities- no leg edema, no calf tenderness; peripheral pulses intact Neuro- alert, oriented x 3; no gross focal deficits Skin- warm & dry Laboratory Results: Last 24 Hours Test 12/14/16 07:10 White Blood Count 12.35 K/uL Red Blood Count 3.07 M/uL Hemoglobin 9.4 g/dL Hematocrit 30.3 % Mean Corpuscular Volume 98.7 fL Mean Corpuscular Hemoglobin 30.6 pg Mean Corpuscular Hemoglobin Concent 31.0 g/dl Platelet Count 431 K/uL Mean Platelet Volume 8.8 fL Neutrophils (%) (Auto) 79.5 % Lymphocytes (%) (Auto) 10.1 % Monocytes (%) (Auto) 9.6 % Eosinophils (%) (Auto) 0.0 % Basophils (%) (Auto) 0.1 % Neutrophils # (Auto) 9.82 K/uL Lymphocytes # (Auto) 1.25 K/uL Monocytes # (Auto) 1.18 K/uL Eosinophils # (Auto) 0.00 K/uL Basophils # (Auto) 0.01 K/uL RDW Standard Deviation 62.4 fL RDW Coefficient of Variation 17.6 % Immature Granulocyte % (Auto) 0.7 % Immature Granulocyte # (Auto) 0.09 K/uL Nucleated RBC Absolute Count (auto) 0.08 K/uL Nucleated Red Blood Cells % 0.6 % Prothrombin Time 15.1 SECONDS Prothromb Time International Ratio 1.4 Activated Partial Thromboplast Time 52.0 SECONDS Partial Thromboplastin Ratio 2.0 Sodium Level 146 mmol/L Potassium Level 3.0 mmol/L Chloride Level 108 mmol/L Carbon Dioxide Level 29 mmol/L Anion Gap 9.0 mmol/L Blood Urea Nitrogen 25 mg/dl Creatinine 1.30 mg/dl Est Creatinine Clear Calc Drug Dose 28.9 ml/min Estimated GFR () 43.9 Estimated GFR (Non- 37.9 BUN/Creatinine Ratio 19.2 Random Glucose 86 mg/dl Calcium Level 8.7 mg/dl Assessment & Plan 81 year old female with history of CHF, CAD, TAVR, PE on coumadin, Arthritis on Chronic Prednisone, presenting with abnormal labs. Acute Blood loss Anemia in the setting of Supratherapeutic INR possible underlying Upper GI Bleed Reports of melena; stool is dark heme positive on ER provider's exam Patient on Coumadin with supratherapeutic INR (8 on outpatient lab) Hg was 9.0 today as outpatient -> 8.7 in ER; baseline 11's-12's due to iron deficiency anemia and anemia of CKD -- given Vitamin K coumadin held -- INR 1.8 from > 8 Hg 8.3 from 8.7 -- evaluated by GI, EGD not recommended at this time -- placed on Protonix drip, change to Protonix BI held coumadin and Aspirin -- discussed case with GI and Hematology Hg stable, no signs of active gi bleed resumed coumadin with bridging heparin continue Hg monitoring and Protonix BID -- hg 7.7 --> given 1 unit pRBC--> Hg 9.4 FeSO4 started monitor Hg HISTORY OF PE - 1st episode 2005: seen by Dr. 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 biopsy for Thursday on empiric Prednisone 60mg daily, no headache since this was started Protonix IV BID appreciate Surgery SVC eval -- possible RIGHT SIDED FACIAL CELLULITIS, IN THE SETTING OF RECENT DENTAL EXTRACTION? 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 There is severe concentric left ventricular hypertrophy. There is severe calcific aortic valve stenosis. Mild aortic regurgitation. There is mild to moderate tricuspid regurgitation. Grade I diastolic dysfunction, (abnormal relaxation pattern). -- euvolemic -- resumed Lasix PO --Cardiology consulted CAD S/P PCI TO RCA 2011 Denies chest pain Aspirin held for GIB/ anemia, on heparin Continue Metoprolol CKD STAGE III Creat is 1.6; baseline trended up over past 6 months from 1.2-> 1.5 -- stable ASTHMA Not in acute exacerbation Continue home inhalers CHRONIC RESPIRATORY FAILURE Currently saturating well on RA Continue home O2 2 liters NC HS and PRN OSTEOARTHRITIS usually on chronic prednisone 5 mg daily ANXIETY Continue home medications DVT PROPHYLAXIS heparin _ coumadin DISPOSITION Lives with Follows with Dr. Inman for primary care Current Inpatient Medications: Current Inpatient Medications Medications (Trade) Dose Ordered Sig/Rosi Route Start Time Stop Time Status Last Admin Dose Admin Ondansetron HCl (Zofran Inj) 4 mg Q6H PRN IV 12/10/16 19:15 01/09/17 19:14 Albuterol Sulfate (Ventolin 0.083% 2.5MG/3ML Neb) 2.5 mg QID PRN INH 12/10/16 19:15 01/09/17 19:14 12/13/16 14:23 2.5 MG Calcium Carbonate (Tums Chew Tab) 500 mg BID PRN PO 12/10/16 19:15 01/09/17 19:14 Calcium/Vitamin D (Caltrate Plus Tab) 1 tab BIDM PO 12/11/16 07:30 01/10/17 07:59 12/14/16 08:22 1 TAB Docusate Sodium (coLACE CAP) 100 mg BID PO 12/11/16 09:00 01/10/17 08:59 12/14/16 08:22 100 MG Salmeterol Xinafoate/ Fluticasone (Advair Diskus 250/50 Inh) 1 puff BID INH 12/11/16 09:00 01/10/17 08:59 12/14/16 08:19 1 PUFF Lorazepam (Ativan Tab) 0.5 mg HS PRN PO 12/10/16 19:15 01/09/17 19:14 12/13/16 20:58 0.5 MG Magnesium Oxide (Mag-Ox Tab) 400 mg DAILY PO 12/11/16 09:00 01/10/17 08:59 12/14/16 08:22 400 MG Metoprolol Succinate (Toprol Xl Tab) 12.5 mg BID PO 12/10/16 21:00 01/09/17 20:59 12/14/16 08:20 12.5 MG Mirtazapine (Remeron Tab) 15 mg HS PO 12/10/16 21:00 01/09/17 20:59 12/13/16 20:54 15 MG Multivitamins (Multivitamin Tab) 1 tab DAILY PO 12/11/16 09:00 01/10/17 08:59 12/14/16 08:21 1 TAB Ondansetron HCl (Zofran Tab) 4 mg Q6 PRN PO 12/10/16 19:15 01/09/17 19:14 Oxycodone/ Acetaminophen (Percocet 5-325mg Tab) 1 tab Q8H PRN PO 12/10/16 19:15 12/24/16 19:14 12/12/16 21:19 1 TAB Cholecalciferol (Vitamin D Tab) 1,000 inter.unit DAILY PO 12/11/16 09:00 01/10/17 08:59 12/14/16 08:20 1,000 INTER.UNIT Paroxetine HCl (pAXil TAB) 40 mg DAILY PO 12/11/16 09:00 01/10/17 08:59 12/14/16 08:22 40 MG Tramadol HCl (Ultram Tab) 50 mg Q12H PRN PO 12/12/16 08:45 01/11/17 08:44 Furosemide (Lasix Tab) 40 mg DAILY PO 12/13/16 09:00 01/12/17 08:59 12/14/16 08:21 40 MG Clindamycin Phosphate 1 ea 1 ea UD PRN N/A 12/12/16 12:00 01/11/17 11:59 Heparin Sodium/ Dextrose 500 ml @ 12 mls/hr Q24H PRN IV 12/12/16 11:00 01/11/17 10:59 Future Hold 12/13/16 23:40 12 MLS/HR Clindamycin Phosphate/Dextrose (Cleocin Iv/ Dextrose Add-[place] 50ML) 54 ml @ 108 mls/hr Q8@04,12,20 IV 12/12/16 12:30 12/22/16 12:29 12/14/16 11:54 108 MLS/HR Prednisone (PredniSONE TAB) 60 mg DAILY PO 12/13/16 09:00 01/12/17 08:59 12/14/16 08:20 60 MG Senna/Docusate Sodium 1 tab 1 tab DAILY PRN PO 12/13/16 10:45 01/12/17 10:44 12/14/16 08:21 1 TAB Lorazepam/Syringe (Ativan Inj/ Syringe) 1 ml @ 0.5 mls/min Q12H PRN IV 12/13/16 14:15 01/12/17 14:14 12/13/16 14:47 0.5 MLS/MIN Ferrous Sulfate (Feosol Tab) 325 mg BIDM PO 12/14/16 08:00 01/13/17 07:59 12/14/16 08:22 325 MG Lactobacillus Acidophilus (Floranex Tab) 4 tab TIDM PO 12/14/16 12:00 01/13/17 11:59 12/14/16 11:55 4 TAB Miscellaneous (Stop Order) 1 ea TODAY@0200 ONCE N/A 12/15/16 02:00 12/15/16 02:01 Pantoprazole Sodium (Protonix Tab) 40 mg BID PO 12/14/16 21:00 01/13/17 20:59
--- NOTE | 2016-12-14 15:56 | Surgery Progress Note ---
Surgery Progress Note Date of Service December 14, 2016. Subjective states headache is better today. no new complaints. Objective Vital Signs: Date Time Temp Pulse Resp B/P Pulse Ox O2 Delivery O2 Flow Rate FiO2 12/14/16 15:33 36.7 83 18 120/71 100 Nasal Cannula 3.0 12/14/16 12:49 36.5 76 18 156/83 98 Nasal Cannula 2.0 12/14/16 12:00 97 Nasal Cannula 2.0 12/14/16 08:00 97 Nasal Cannula 2.0 12/14/16 07:59 37.0 75 18 170/99 97 Nasal Cannula 2.0 12/14/16 04:35 36.5 72 16 129/77 99 Nasal Cannula 2.0 12/14/16 04:06 Nasal Cannula 2.0 12/14/16 00:36 36.8 76 18 130/77 96 Nasal Cannula 2.0 12/14/16 00:00 Nasal Cannula 2.0 12/13/16 21:08 36.4 82 18 138/66 99 2.0 12/13/16 19:55 36.7 79 18 122/74 97 2.0 12/13/16 19:53 Nasal Cannula 2.0 12/13/16 19:25 36.9 77 18 132/68 96 2.0 12/13/16 18:55 36.5 76 20 128/75 98 2.0 12/13/16 18:40 36.8 78 20 117/50 96 2.0 12/13/16 18:23 36.6 78 18 137/76 96 12/13/16 16:00 97 Room Air General Appearance: no apparent distress Head: + pertinent finding (ecchymosis on right jaw from dental sx) Neck: supple Abdomen: non tender, soft Extremities: normal inspection Laboratory Results: Results Past 24 Hours Test 12/14/16 07:10 Range/Units White Blood Count 12.35 4.8-10.8 K/uL Red Blood Count 3.07 4.2-5.4 M/uL Hemoglobin 9.4 12.0-16.0 g/dL Hematocrit 30.3 37-47 % Mean Corpuscular Volume 98.7 80-100 fL Mean Corpuscular Hemoglobin 30.6 25-34 pg Mean Corpuscular Hemoglobin Concent 31.0 32-36 g/dl Platelet Count 431 130-400 K/uL Mean Platelet Volume 8.8 7.4-10.4 fL Neutrophils (%) (Auto) 79.5 % Lymphocytes (%) (Auto) 10.1 % Monocytes (%) (Auto) 9.6 % Eosinophils (%) (Auto) 0.0 % Basophils (%) (Auto) 0.1 % Neutrophils # (Auto) 9.82 1.4-6.5 K/uL Lymphocytes # (Auto) 1.25 1.2-3.4 K/uL Monocytes # (Auto) 1.18 0.11-0.59 K/uL Eosinophils # (Auto) 0.00 0-0.5 K/uL Basophils # (Auto) 0.01 0-0.2 K/uL RDW Standard Deviation 62.4 36.4-46.3 fL RDW Coefficient of Variation 17.6 11.5-14.5 % Immature Granulocyte % (Auto) 0.7 % Immature Granulocyte # (Auto) 0.09 0.00-0.02 K/uL Nucleated RBC Absolute Count (auto) 0.08 0-0 K/uL Nucleated Red Blood Cells % 0.6 % Prothrombin Time 15.1 9.0-12.0 SECONDS Prothromb Time International Ratio 1.4 0.9-1.1 Activated Partial Thromboplast Time 52.0 21.0-31.0 SECONDS Partial Thromboplastin Ratio 2.0 Sodium Level 146 136-145 mmol/L Potassium Level 3.0 3.5-5.1 mmol/L Chloride Level 108 98-107 mmol/L Carbon Dioxide Level 29 21-32 mmol/L Anion Gap 9.0 3-11 mmol/L Blood Urea Nitrogen 25 7-18 mg/dl Creatinine 1.30 0.60-1.20 mg/dl Est Creatinine Clear Calc Drug Dose 28.9 ml/min Estimated GFR () 43.9 Estimated GFR (Non- 37.9 BUN/Creatinine Ratio 19.2 10-20 Random Glucose 86 70-99 mg/dl Calcium Level 8.7 8.5-10.1 mg/dl Assessment & Plan rediscussed plan for temporal artery bx for tomorrow will hold heparin drip at 2 am tonight PRBC given by medicine. hg improved. discussed risks/answered questions. will proceed with bx tomorrow.
[2016-12-14] MEDS: LORAZEPAM INJ 0.5 MG in SYRINGE 0.75 ML IV PRN (18:39)
[2016-12-14] MEDS: MIRTAZAPINE TAB 15 MG TAB PO SCH (20:04)
[2016-12-14] MEDS: PANTOprazole SOD 40 MG TAB PO SCH (20:05)
[2016-12-14] MEDS: OXYCODONE/ACETAMINOPHEN 5-325 TAB PO PRN (20:23)
[2016-12-15] MEDS ORDERED: [UNRECOGNIZED DRUG - REMARK] ONE (02:00)
[2016-12-15] MEDS: CLINDAMYCIN IV 600 MG in DEXTROSE 5% ADD-VANTAGE 50ML 50 ML IV SCH ×2 (03:32→11:01)
[2016-12-15] MEDS: ONDANSETRON INJ 2 MG/ML 2 ML VIAL IV PRN ×2 (03:32→13:14)
[2016-12-15 04:27] VITALS: BP 151/80; PULSE 70; TEMP 36.8; O2SAT 96
[2016-12-15] MEDS ORDERED: PROPOFOL IV EMULSION 10 MG/ML 20 ML VIAL IV ONE (06:53)
[2016-12-15] MEDS ORDERED: LIDOCAINE HCL 2% 2 ML VIAL (20MG/ML) ONE (06:53)
[2016-12-15] MEDS ORDERED: FENTANYL CITRATE INJ 50 MCG/1 ML 2 ML VIAL ONE (06:53)
[2016-12-15] MEDS ORDERED: MIDAZOLAM HCL 1 MG/ML 2ML VIAL ONE (06:53)
[2016-12-15] MEDS ORDERED: LIDOCAINE HCL 1% 20 ML VIAL ONE (07:03)
[2016-12-15] MEDS ORDERED: BUPIVACAINE 0.5 % 5 MG/1 ML MPF 30ML VIAL ONE (07:03)
[2016-12-15 07:13] VITALS: BP 137/78; PULSE 74; TEMP 36.4; O2SAT 97
[2016-12-15 07:28] LABS: BASO % 0.1 %; BASO ABS # 0.01 K/uL (0-0.2); COMPLETE YES; HEMATOCRIT 28.9 % (37-47); IG% 0.7 %; LYMPH % 10.9 %; LYMPH ABS # 1.33 K/uL (1.2-3.4); MEAN CORPUSCULAR HEMOGLOBIN 31.5 pg (25-34); MEAN CORPUSCULAR HGB CONC 31.5 g/dl (32-36); MEAN PLATELET VOLUME 9.2 fL (7.4-10.4); MONO % 9.5 %; NEUT % 78.8 %; PLATELET COUNT 413 K/uL (130-400); RED BLOOD COUNT 2.89 M/uL (4.2-5.4); WHITE BLOOD COUNT 12.25 K/uL (4.8-10.8)
[2016-12-15 07:34] LABS: INR 1.4 (0.9-1.1); PROTHROMBIN TIME (PATIENT) 14.7 SECONDS (9.0-12.0)
[2016-12-15 07:59] LABS: BUN/CREATININE RATIO 17.1 (10-20); CALCIUM 8.1 mg/dl (8.5-10.1); CREATININE 1.5 mg/dl (0.60-1.20); POTASSIUM 3.8 mmol/L (3.5-5.1)
[2016-12-15] MEDS: CALCIUM 600MG + VIT D 400 IU TAB PO SCH ×2 (08:00→16:24)
[2016-12-15] MEDS: LACTOBACILLUS ACIDOPHILUS (FLORANEX) TAB PO SCH ×3 (08:00→16:24)
[2016-12-15] MEDS: FERROUS SULFATE 325 MG TAB PO SCH ×2 (08:09→16:24)
[2016-12-15] MEDS: MULTIVITAMIN TAB PO SCH (08:09)
[2016-12-15] MEDS: FUROSEMIDE 40 MG TAB PO SCH (08:10)
[2016-12-15] MEDS: MAGNESIUM OXIDE 400 MG TAB PO SCH (08:10)
[2016-12-15] MEDS: PAROXETINE 20 MG TAB PO SCH (08:10)
[2016-12-15] MEDS: FLUTICASONE/SALMETEROL 250/50 (ADVAIR) 14 PUFF/1 INHALER INH SCH ×2 (08:10→20:28)
[2016-12-15] MEDS: PANTOprazole SOD 40 MG TAB PO SCH ×2 (08:10→20:31)
[2016-12-15] MEDS: DOCUSATE SODIUM 100 MG CAP PO SCH (08:10)
[2016-12-15] MEDS: METOPROLOL SUCC 25MG EXT REL TAB PO SCH ×2 (08:11→20:29)
[2016-12-15] MEDS: CHOLECALCIFEROL 1000 INTER.UNIT TAB PO SCH (08:11)
--- NOTE | 2016-12-15 09:18 | History & Physical Bridge Note ---
H&P Re-Evaluation Bridge Note: I have examined the patient, reviewed the History & Physical and in the interval since the performance of the History & Physical I have noted the following changes of clinical significance: No changes noted
[2016-12-15] MEDS ORDERED: CLINDAMYCIN 600 MG/54 ML D5W IV ONE (09:30)
[2016-12-15] MEDS ORDERED: BUPIVACAINE/EPINEPHRINE 0.5% MPF 1:200,000 30 ML VIAL ONE (09:45)
--- NOTE | 2016-12-15 10:23 | [facility] Operative Report ---
Operative Report Operative Date December 15, 2016. Pre-Operative Diagnosis Headaches Post-Operative Diagnosis same Procedure(s) Performed right temporal artery bx Surgeon Dr. Campos Ethical Hacker Surgeon(s) JANICE Carter Findings normal anatomy Specimens A. Right Temporal Artery Biopsy Anesthesia MAC/local Complication(s) None Disposition Recovery Room / PACU I attest to the content of the Intraoperative Record and any orders documented therein. Any exceptions are noted below.
[2016-12-15] MEDS ORDERED: MoRPHine SULFATE 2 MG/ML CARP IV PRN (10:30)
--- NOTE | 2016-12-15 10:50 | Anesthesiology Progress Note ---
Anesthesia Post Op Note Date & Time December 15, 2016 at 10:50 Vital Signs Pain Intensity: 0 Vital Signs Past 12 Hours Date Time Temp Pulse Resp B/P Pulse Ox O2 Delivery O2 Flow Rate FiO2 12/15/16 10:45 74 20 121/64 93 Room Air 12/15/16 10:35 74 20 121/78 96 Room Air 12/15/16 10:28 36 74 14 148/76 98 Room Air 12/15/16 08:00 Nasal Cannula 2.0 12/15/16 07:13 36.4 74 18 137/78 97 Nasal Cannula 3.0 12/15/16 04:27 36.8 70 18 151/80 96 Room Air 12/15/16 04:00 Nasal Cannula 2.0 12/15/16 00:00 Nasal Cannula 2.0 12/14/16 23:55 36.7 75 18 154/87 96 Nasal Cannula 3.0 Notes Mental Status: alert / awake / arousable, participated in evaluation Pt Amnestic to Procedure: Yes Nausea / Vomiting: adequately controlled Pain: adequately controlled Airway Patency, RR, SpO2: stable & adequate BP & HR: stable & adequate Hydration State: stable & adequate Anesthetic Complications: no major complications apparent
[2016-12-15] MEDS ORDERED: EpHEDrine SULFATE INJ 50 MG/ML AMP IV PRN (11:00)
[2016-12-15] MEDS ORDERED: ATROPINE SULFATE 0.1 MG/ML 5ML SYR IV PRN (11:00)
[2016-12-15 12:02] VITALS: BP 138/72; PULSE 73; TEMP 36.4; O2SAT 96
--- NOTE | 2016-12-15 12:32 | OPERATIVE REPORT ---
DATE OF OPERATION: 12/15/2016 PREOPERATIVE DIAGNOSIS: Headaches, rule out giant cell arteritis. POSTOPERATIVE DIAGNOSIS: Same. PROCEDURE: Right temporal artery biopsy. SURGEON: Dr. Campos. LABORATORY INSPECTOR: David Bear PA-C. ESTIMATED BLOOD LOSS: Approximately 5 mL COMPLICATIONS: No immediate. ANESTHESIA: Monitored anesthesia care with local. DESCRIPTION OF PROCEDURE: After informed consent was obtained, the patient was taken to the operating suite, placed in supine position with the head looking to the lateral left side. The right temporal area was sterilely prepped and draped in usual fashion. IV sedation was administered by anesthesia. After the patient was comfortable, I did use on table Doppler to identify and outline the course of the temporal artery. We then used some Marcaine to localize the skin and soft tissue. We then made an incision over the marked course of the artery. We used small amounts of electrocautery to carry this incision down through some of the subcutaneous tissue. Eventually, we were able to identify the artery. We skeletonized it for over its course for about an inch. We clamped it proximally and distally and removed about a 1 inch section and pass it off to the back table. We used 3-0 silk to tie off both ends. We irrigated the wound. There was adequate hemostasis at the end of the procedure. We closed the wound using 3-0 Vicryl for the deep layer and 5-0 Monocryl for the skin. Dermabond glue was used as a dressing. The patient was awakened and transferred to recovery in stable condition. I attest to the content of the Intraoperative Record and any orders documented therein. Any exceptio ns are noted below.
--- NOTE | 2016-12-15 15:04 | Hematology/Oncology Prog Note ---
Hematology/Onc Progress Note Date of Service December 15, 2016. Medications Medications Administered Medications (Trade) Dose Ordered Sig/Rosi Route Start Time Stop Time Status Last Admin Dose Admin Pantoprazole Sodium/Syringe (Protonix Inj/ Syringe) 10 ml @ 5 mls/min NOW ONCE IV 12/10/16 18:30 12/10/16 18:31 DC 12/10/16 19:41 5 MLS/MIN Famotidine 20 mg 20 mg ONE STAT IV 12/10/16 18:17 12/10/16 18:18 DC 12/10/16 19:10 20 MG Potassium Chloride/Sodium Chloride (Nss + 20meq KCl 1000ml) 1,000 ml @ 75 mls/hr [id number] IV 12/10/16 21:30 12/11/16 14:35 DC 12/11/16 10:58 75 MLS/HR Ondansetron HCl (Zofran Inj) 4 mg Q6H PRN IV 12/10/16 19:15 01/09/17 19:14 12/15/16 13:14 4 MG Albuterol Sulfate (Ventolin 0.083% 2.5MG/3ML Neb) 2.5 mg QID PRN INH 12/10/16 19:15 01/09/17 19:14 12/13/16 14:23 2.5 MG Calcium/Vitamin D (Caltrate Plus Tab) 1 tab BIDM PO 12/11/16 07:30 01/10/17 07:59 12/14/16 17:25 1 TAB Docusate Sodium (coLACE CAP) 100 mg BID PO 12/11/16 09:00 01/10/17 08:59 12/15/16 08:10 100 MG Salmeterol Xinafoate/ Fluticasone (Advair Diskus 250/50 Inh) 1 puff BID INH 12/11/16 09:00 01/10/17 08:59 12/15/16 08:10 1 PUFF Lorazepam (Ativan Tab) 0.5 mg HS PRN PO 12/10/16 19:15 01/09/17 19:14 12/13/16 20:58 0.5 MG Magnesium Oxide (Mag-Ox Tab) 400 mg DAILY PO 12/11/16 09:00 01/10/17 08:59 12/15/16 08:10 400 MG Metoprolol Succinate (Toprol Xl Tab) 12.5 mg BID PO 12/10/16 21:00 01/09/17 20:59 12/15/16 08:11 12.5 MG Mirtazapine (Remeron Tab) 15 mg HS PO 12/10/16 21:00 01/09/17 20:59 12/14/16 20:04 15 MG Multivitamins (Multivitamin Tab) 1 tab DAILY PO 12/11/16 09:00 01/10/17 08:59 12/14/16 08:21 1 TAB Oxycodone/ Acetaminophen (Percocet 5-325mg Tab) 1 tab Q8H PRN PO 12/10/16 19:15 12/24/16 19:14 12/14/16 20:23 1 TAB Cholecalciferol (Vitamin D Tab) 1,000 inter.unit DAILY PO 12/11/16 09:00 01/10/17 08:59 12/15/16 08:11 1,000 INTER.UNIT Paroxetine HCl (pAXil TAB) 40 mg DAILY PO 12/11/16 09:00 01/10/17 08:59 12/15/16 08:10 40 MG Prednisone 60 mg 60 mg NOW ONCE PO 12/10/16 20:15 12/10/16 20:22 DC 12/10/16 20:08 60 MG Phytonadione/ Sodium Chloride (Aqua-Mephyton Inj/Nss 50ml) 50.5 ml @ 101 mls/hr TODAY@2014 ONCE IV 12/10/16 20:15 12/10/16 20:44 DC 12/10/16 20:25 101 MLS/HR Prednisone 5 mg 5 mg DAILY PO 12/11/16 09:00 12/12/16 12:06 DC 12/12/16 09:17 5 MG Pantoprazole Sodium 80 mg/ Dextrose 120 ml @ 480 mls/hr 2100 ONCE IV 12/10/16 21:00 12/10/16 21:14 DC 12/10/16 21:52 480 MLS/HR Pantoprazole Sodium/Dextrose (Protonix Inj/D5 100ml) 100 ml @ 20 mls/hr Q5H IV 12/10/16 21:15 12/11/16 02:14 DC 12/10/16 21:51 20 MLS/HR Tramadol HCl 50 mg 50 mg 0900 ONCE PO 12/12/16 09:00 12/12/16 09:01 DC 12/12/16 08:43 50 MG Pantoprazole Sodium/Syringe (Protonix Inj/ Syringe) 10 ml @ 5 mls/min DAILY@,21 IV 12/12/16 09:00 12/14/16 13:21 DC 12/14/16 08:19 5 MLS/MIN Furosemide 40 mg 40 mg DAILY PO 12/13/16 09:00 01/12/17 08:59 12/15/16 08:10 40 MG Heparin Sodium/ Dextrose (Heparin 25,000 Unit/500ml D5W) 500 ml @ 12 mls/hr Q24H PRN IV 12/12/16 11:00 01/11/17 10:59 Future Hold 12/13/16 23:40 12 MLS/HR Prednisone 40 mg 40 mg 1230 ONCE PO 12/12/16 12:30 12/12/16 12:31 DC 12/12/16 13:33 40 MG Clindamycin Phosphate 600 mg/ Dextrose 54 ml @ 108 mls/hr Q8@04,12,20 IV 12/12/16 12:30 12/22/16 12:29 12/15/16 11:01 108 MLS/HR Heparin Sodium (Porcine)/Syringe (Heparin Iv Bolus/Syringe) 4 ml @ 10 mls/min 2000 ONCE IV 12/12/16 20:00 12/12/16 20:01 DC 12/12/16 20:20 10 MLS/MIN Prednisone (PredniSONE TAB) 60 mg DAILY PO 12/13/16 09:00 01/12/17 08:59 12/15/16 08:10 60 MG Prednisone (PredniSONE TAB) 20 mg 2200 ONCE PO 12/12/16 22:00 12/12/16 22:01 DC 12/12/16 22:21 20 MG Senna/Docusate Sodium 1 tab 1 tab DAILY PRN PO 12/13/16 10:45 01/12/17 10:44 12/14/16 08:21 1 TAB Lorazepam 0.5 mg/ Syringe 1 ml @ 0.5 mls/min Q12H PRN IV 12/13/16 14:15 01/12/17 14:14 12/14/16 18:39 0.5 MLS/MIN Furosemide/Syringe (Lasix Inj/ Syringe) 2 ml @ 4 mls/min 1900 IV 12/13/16 19:00 12/13/16 23:59 DC 12/13/16 21:59 4 MLS/MIN Lactobacillus Acidophilus (Lactinex Granules Pack) 1 gm TIDM PO 12/14/16 08:00 12/14/16 09:41 DC 12/14/16 08:18 1 GM Ferrous Sulfate (Feosol Tab) 325 mg BIDM PO 12/14/16 08:00 01/13/17 07:59 12/15/16 08:09 325 MG Lactobacillus Acidophilus (Floranex Tab) 4 tab TIDM PO 12/14/16 12:00 01/13/17 11:59 12/15/16 11:01 4 TAB Potassium Chloride (Klor-Con M10) 40 meq NOW ONCE PO 12/14/16 10:00 12/14/16 10:01 DC 12/14/16 10:36 40 MEQ Miscellaneous (Stop Order) 1 ea TODAY@0200 ONCE N/A 12/15/16 02:00 12/15/16 02:01 DC 12/15/16 01:54 1 EA Pantoprazole Sodium (Protonix Tab) 40 mg BID PO 12/14/16 21:00 01/13/17 20:59 12/15/16 08:10 40 MG Clindamycin Phosphate (Cleocin 600mg/ 54ml D5W) 600 mg STK-MED ONCE IV 12/15/16 09:30 12/15/16 09:31 DC 12/15/16 09:37 600 MG Bupivacaine HCl/ Epinephrine Bitart (Sensorcaine/ Epinephrine 0.5% Mpf 1:200,000) 30 ml STK-MED ONCE .ROUTE 12/15/16 09:45 12/15/16 09:46 DC 12/15/16 10:15 2 ML Subjective Ms. Conley reports feeling overall fair today. She had the right temporal artery biopsy today, results pending. She is not having dyspnea or chest pain. She reports a fair appetite. She does report heard stools dark, but her FOBT has been negative during his hospitalization; of note, she is on iron supplementation. Her last bowel movement was yesterday. She is not having hematuria or epistaxis. She is not having calf pain. She states her headache has resolved since she has been placed on steroid. Review of Systems: Constitutional: No fever Respiratory: No cough Cardiovascular: No chest pain Abdomen: No GI bleeding Musculoskeletal: No calf pain Female : No hematuria Heme: + clotting problems, No abnormal bleeding/bruising Vital Signs Vital Signs Past 12 Hours Date Time Temp Pulse Resp B/P Pulse Ox O2 Delivery O2 Flow Rate FiO2 12/15/16 12:02 36.4 73 18 138/72 96 12/15/16 12:00 Room Air 12/15/16 10:45 74 20 121/64 93 Room Air 12/15/16 10:35 74 20 121/78 96 Room Air 12/15/16 10:28 36 74 14 148/76 98 Room Air 12/15/16 08:00 Nasal Cannula 2.0 12/15/16 07:13 36.4 74 18 137/78 97 Nasal Cannula 3.0 12/15/16 04:27 36.8 70 18 151/80 96 Room Air 12/15/16 04:00 Nasal Cannula 2.0 Physical Exam Constitutional: General Apperance: heathly-appearing, well-nourished Level of Distress: NAD Lungs: Respiratory Effort: no dyspnea Auscuitation: breath sounds normal Cardiovascular: Heart Auscultation: RRR Abdomen: Bowel Sounds: normal Inspection & Palpation: soft, no tenderness, guarding & rebound Extremities: no edema (or calf tenderness) Bruises of varying healing stages on arms bilaterally Laboratory 12/13/16 05:24 Red Blood Count 2.33, Mean Corpuscular Volume 103.0, Mean Corpuscular Hemoglobin 32.6, Mean Corpuscular Hemoglobin Concent 31.7, Mean Platelet Volume 8.8, Neutrophils (%) (Auto) 83.4, Lymphocytes (%) (Auto) 13.9, Monocytes (%) ( Auto) 2.3, Eosinophils (%) (Auto) 0.0, Basophils (%) (Auto) 0.0, Neutrophils # ( Auto) 5.81, Lymphocytes # (Auto) 0.97, Monocytes # (Auto) 0.16, Eosinophils # ( Auto) 0.00, Basophils # (Auto) 0.00 12/14/16 07:10 Red Blood Count 3.07, Mean Corpuscular Volume 98.7, Mean Corpuscular Hemoglobin 30.6, Mean Corpuscular Hemoglobin Concent 31.0, Mean Platelet Volume 8.8, Neutrophils (%) (Auto) 79.5, Lymphocytes (%) (Auto) 10.1, Monocytes (%) (Auto) 9.6, Eosinophils (%) (Auto) 0.0, Basophils (%) (Auto) 0.1, Neutrophils # (Auto) 9.82, Lymphocytes # (Auto) 1.25, Monocytes # (Auto) 1.18, Eosinophils # (Auto) 0.00, Basophils # (Auto) 0.01 12/15/16 06:55 Red Blood Count 2.89, Mean Corpuscular Volume 100.0, Mean Corpuscular Hemoglobin 31.5, Mean Corpuscular Hemoglobin Concent 31.5, Mean Platelet Volume 9.2, Neutrophils (%) (Auto) 78.8, Lymphocytes (%) (Auto) 10.9, Monocytes (%) ( Auto) 9.5, Eosinophils (%) (Auto) 0.0, Basophils (%) (Auto) 0.1, Neutrophils # ( Auto) 9.67, Lymphocytes # (Auto) 1.33, Monocytes # (Auto) 1.16, Eosinophils # ( Auto) 0.00, Basophils # (Auto) 0.01 12/13/16 05:24 12/14/16 07:10 12/14/16 16:25 12/15/16 06:55 Test 12/12/16 17:55 12/13/16 01:12 12/13/16 05:24 12/13/16 09:15 Activated Partial Thromboplast Time 38.9 SECONDS (21.0-31.0) 121.4 SECONDS (21.0-31.0) 82.8 SECONDS (21.0-31.0) 65.0 SECONDS (21.0-31.0) Partial Thromboplastin Ratio 1.5 4.7 3.2 2.5 White Blood Count 6.97 K/uL (4.8-10.8) Red Blood Count 2.33 M/uL (4.2-5.4) Hemoglobin 7.6 g/dL (12.0-16.0) Hematocrit 24.0 % (37-47) Mean Corpuscular Volume 103.0 fL (80-100) Mean Corpuscular Hemoglobin 32.6 pg (25-34) Mean Corpuscular Hemoglobin Concent 31.7 g/dl (32-36) Platelet Count 398 K/uL (130-400) Mean Platelet Volume 8.8 fL (7.4-10.4) Neutrophils (%) (Auto) 83.4 % Lymphocytes (%) (Auto) 13.9 % Monocytes (%) (Auto) 2.3 % Eosinophils (%) (Auto) 0.0 % Basophils (%) (Auto) 0.0 % Neutrophils # (Auto) 5.81 K/uL (1.4-6.5) Lymphocytes # (Auto) 0.97 K/uL (1.2-3.4) Monocytes # (Auto) 0.16 K/uL (0.11-0.59) Eosinophils # (Auto) 0.00 K/uL (0-0.5) Basophils # (Auto) 0.00 K/uL (0-0.2) RDW Standard Deviation 63.6 fL (36.4-46.3) RDW Coefficient of Variation 17.0 % (11.5-14.5) Immature Granulocyte % (Auto) 0.4 % Immature Granulocyte # (Auto) 0.03 K/uL (0.00-0.02) Polychromasia 1+ Prothrombin Time 12.9 SECONDS (9.0-12.0) Prothromb Time International Ratio 1.2 (0.9-1.1) Anion Gap 8.0 mmol/L (3-11) Est Creatinine Clear Calc Drug Dose 25.0 ml/min Estimated GFR () 37.0 Estimated GFR (Non- 31.9 BUN/Creatinine Ratio 17.5 (10-20) Calcium Level 8.7 mg/dl (8.5-10.1) Test 12/14/16 07:10 12/15/16 06:55 White Blood Count 12.35 K/uL (4.8-10.8) 12.25 K/uL (4.8-10.8) Red Blood Count 3.07 M/uL (4.2-5.4) 2.89 M/uL (4.2-5.4) Hemoglobin 9.4 g/dL (12.0-16.0) 9.1 g/dL (12.0-16.0) Hematocrit 30.3 % (37-47) 28.9 % (37-47) Mean Corpuscular Volume 98.7 fL (80-100) 100.0 fL (80-100) Mean Corpuscular Hemoglobin 30.6 pg (25-34) 31.5 pg (25-34) Mean Corpuscular Hemoglobin Concent 31.0 g/dl (32-36) 31.5 g/dl (32-36) Platelet Count 431 K/uL (130-400) 413 K/uL (130-400) Mean Platelet Volume 8.8 fL (7.4-10.4) 9.2 fL (7.4-10.4) Neutrophils (%) (Auto) 79.5 % 78.8 % Lymphocytes (%) (Auto) 10.1 % 10.9 % Monocytes (%) (Auto) 9.6 % 9.5 % Eosinophils (%) (Auto) 0.0 % 0.0 % Basophils (%) (Auto) 0.1 % 0.1 % Neutrophils # (Auto) 9.82 K/uL (1.4-6.5) 9.67 K/uL (1.4-6.5) Lymphocytes # (Auto) 1.25 K/uL (1.2-3.4) 1.33 K/uL (1.2-3.4) Monocytes # (Auto) 1.18 K/uL (0.11-0.59) 1.16 K/uL (0.11-0.59) Eosinophils # (Auto) 0.00 K/uL (0-0.5) 0.00 K/uL (0-0.5) Basophils # (Auto) 0.01 K/uL (0-0.2) 0.01 K/uL (0-0.2) RDW Standard Deviation 62.4 fL (36.4-46.3) 64.1 fL (36.4-46.3) RDW Coefficient of Variation 17.6 % (11.5-14.5) 17.7 % (11.5-14.5) Immature Granulocyte % (Auto) 0.7 % 0.7 % Immature Granulocyte # (Auto) 0.09 K/uL (0.00-0.02) 0.08 K/uL (0.00-0.02) Nucleated RBC Absolute Count (auto) 0.08 K/uL (0-0) 0.03 K/uL (0-0) Nucleated Red Blood Cells % 0.6 % 0.3 % Prothrombin Time 15.1 SECONDS (9.0-12.0) 14.7 SECONDS (9.0-12.0) Prothromb Time International Ratio 1.4 (0.9-1.1) 1.4 (0.9-1.1) Activated Partial Thromboplast Time 52.0 SECONDS (21.0-31.0) 25.9 SECONDS (21.0-31.0) Partial Thromboplastin Ratio 2.0 1.0 Anion Gap 9.0 mmol/L (3-11) 9.0 mmol/L (3-11) Est Creatinine Clear Calc Drug Dose 28.9 ml/min 26.5 ml/min Estimated GFR () 43.9 37.0 Estimated GFR (Non- 37.9 31.9 BUN/Creatinine Ratio 19.2 (10-20) 17.1 (10-20) Calcium Level 8.7 mg/dl (8.5-10.1) 8.1 mg/dl (8.5-10.1) Assessment & Plan 1. History of pulmonary embolism - she has had 3 events - in 2004, 2008 and in 2012 (last 2 unprovoked). 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 Chávez has recommended indefinite anticoagulation * Patient remains on heparin gtt since she had to have arterial biopsy today for possible GCA * Patient may be bridged to Coumadin from heparin gtt if Hgb remains stable after procedure performed today * Will require close follow up with Coumadin Clinic for INR monitoring, INR recommended to be kept between 2-2.5 * IVC filter was discussed at consult if patient had further bleeding issues, but patient declined and Hgb has remained stable since transfusion * Dopplers this hospitalization of LEs negative 2. Anemia- may be multifactorial - chronic inflammation, CKD * May have had component of blood loss on presentation to hospital with acute on chronic exacerbation with supratherapeutic INR and report of melena, Hgb down into 8s on presentation, s/p 1 unit PRBC 12/13/16 when Hgb declined into 7 range (baseline around 11) * Iron and transferrin saturations levels low, patient on iron supplementation * FOBT negative * GI has not recommended EGD during this hospitalization- EGD/colonoscopy to occur in outpatient setting Patient requires follow up with hematology on discharge from hospital. Will continue to follow along while patient is hospitalized.
[2016-12-15 15:49] VITALS: BP 113/69; PULSE 75; TEMP 36.4; O2SAT 96
[2016-12-15 17:03] LABS: ALBUMIN 2.8 G/DL (3.8-4.8); GAMMA GLOBULIN 0.6 G/DL (0.8-1.7); HAPTOGLOBIN TC 45427W 284 MG/DL (43-212); TOTAL PROTEIN 5.5 G/DL (6.2-8.3)
--- NOTE | 2016-12-15 17:15 | PROGRESS NOTE ---
DATE: 12/15/2016 Unfortunately my progress note from yesterday was not transcribed. Neurology is going officially sign off Yany's case. Rheumatology has her well in hand with plans for followup with Dr. Lainez who is seeing her for other rheumatologic issues and temporal artery biopsy results along with managing her steroid therapy if the biopsy is positive. MEG
--- NOTE | 2016-12-15 19:23 | Progress Note ---
Medicine Progress Note Date & Time of Visit: December 15, 2016 at 19:18. Subjective s/p temporal artery biopsy today tolerated well sitting in chair, states she feels tense had 1 loose BM today, denies nausea/abdominal pain, fever/chills denies dizziness, dyspnea, palpitations no other symptoms Objective Last 8 Hrs Date Time Temp Pulse Resp B/P Pulse Ox O2 Delivery O2 Flow Rate FiO2 12/15/16 16:00 Room Air 2.0 Nasal Cannula 12/15/16 15:49 36.4 75 20 113/69 96 12/15/16 12:02 36.4 73 18 138/72 96 12/15/16 12:00 Room Air Physical Exam: General- oriented x 3, not in distress, speaks in sentences with no effort Eyes- anicteric ENT-RESOLVED facial edema and erythema on the right lower half of the face NO tenderness on the temporal region Head- (+) biopsy site: no bleeding, swelling, hematoma, discharge Neck- no JVD Lungs- mild rales at the bases, no wheezes Heart- normal rate, regular rhythm; no murmurs Abdomen- normal bowel sounds, soft, nontender Extremities- no leg edema, no calf tenderness; peripheral pulses intact Neuro- alert, oriented x 3; no gross focal deficits Skin- warm & dry Laboratory Results: Last 24 Hours Test 12/15/16 06:55 White Blood Count 12.25 K/uL Red Blood Count 2.89 M/uL Hemoglobin 9.1 g/dL Hematocrit 28.9 % Mean Corpuscular Volume 100.0 fL Mean Corpuscular Hemoglobin 31.5 pg Mean Corpuscular Hemoglobin Concent 31.5 g/dl Platelet Count 413 K/uL Mean Platelet Volume 9.2 fL Neutrophils (%) (Auto) 78.8 % Lymphocytes (%) (Auto) 10.9 % Monocytes (%) (Auto) 9.5 % Eosinophils (%) (Auto) 0.0 % Basophils (%) (Auto) 0.1 % Neutrophils # (Auto) 9.67 K/uL Lymphocytes # (Auto) 1.33 K/uL Monocytes # (Auto) 1.16 K/uL Eosinophils # (Auto) 0.00 K/uL Basophils # (Auto) 0.01 K/uL RDW Standard Deviation 64.1 fL RDW Coefficient of Variation 17.7 % Immature Granulocyte % (Auto) 0.7 % Immature Granulocyte # (Auto) 0.08 K/uL Nucleated RBC Absolute Count (auto) 0.03 K/uL Nucleated Red Blood Cells % 0.3 % Prothrombin Time 14.7 SECONDS Prothromb Time International Ratio 1.4 Activated Partial Thromboplast Time 25.9 SECONDS Partial Thromboplastin Ratio 1.0 Sodium Level 145 mmol/L Potassium Level 3.8 mmol/L Chloride Level 109 mmol/L Carbon Dioxide Level 27 mmol/L Anion Gap 9.0 mmol/L Blood Urea Nitrogen 26 mg/dl Creatinine 1.50 mg/dl Est Creatinine Clear Calc Drug Dose 26.5 ml/min Estimated GFR () 37.0 Estimated GFR (Non- 31.9 BUN/Creatinine Ratio 17.1 Random Glucose 79 mg/dl Calcium Level 8.1 mg/dl Assessment & Plan 81 year old female with history of CHF, CAD, TAVR, PE on coumadin, Arthritis on Chronic Prednisone, presenting with abnormal labs. Acute Blood loss Anemia in the setting of Supratherapeutic INR possible underlying Upper GI Bleed Reports of melena; stool is dark heme positive on ER provider's exam Patient on Coumadin with supratherapeutic INR (8 on outpatient lab) Hg was 9.0 today as outpatient -> 8.7 in ER; baseline 11's-12's due to iron deficiency anemia and anemia of CKD -- given Vitamin K coumadin held -- INR 1.8 from > 8 Hg 8.3 from 8.7 -- evaluated by GI, EGD not recommended at this time -- placed on Protonix drip, change to Protonix BI held coumadin and Aspirin -- discussed case with GI and Hematology Hg stable, no signs of active gi bleed resumed coumadin with bridging heparin continue Hg monitoring and Protonix BID -- hg 7.7 --> given 1 unit pRBC--> Hg 9.4 12/15: Hg 9.1 no signs of active bleeding FeSO4 started monitor Hg HISTORY OF PE - 1st episode 2005: seen by Dr. 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 - 2nd episode 2008: spontaneous (based on history), coumadin then resumed since 3rd episode 2012 -- discussed with Hematology will need indefinite anticoagulation with coumadin and close Hg monitoring if not tolerating, possible IVC filter HEADACHE Question of temporal arteritis- noted to have extremely elevated ESR (>120) on outpatient labs; ESR [address] head negative as outpatient given prednisone 60 mg on admission day with improvement of symptoms --- possible TEMPORAL ARTERITIS? s/p Temporal Artery Biopsy 12/15/16 ff up Pathology may resume heparin + coumadin today per Dr. Campos on empiric Prednisone 60mg daily, no headache since this was started Protonix IV BID appreciate Surgery SVC eval -- possible RIGHT SIDED FACIAL CELLULITIS, IN THE SETTING OF RECENT DENTAL EXTRACTION? 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 There is severe concentric left ventricular hypertrophy. There is severe calcific aortic valve stenosis. Mild aortic regurgitation. There is mild to moderate tricuspid regurgitation. Grade I diastolic dysfunction, (abnormal relaxation pattern). -- euvolemic -- resumed Lasix PO --Cardiology consulted CAD S/P PCI TO RCA 2011 Denies chest pain Aspirin held for GIB/ anemia, on heparin Continue Metoprolol CKD STAGE III Creat is 1.6; baseline trended up over past 6 months from 1.2-> 1.5 -- stable ASTHMA Not in acute exacerbation Continue home inhalers CHRONIC RESPIRATORY FAILURE Currently saturating well on RA Continue home O2 2 liters NC HS and PRN OSTEOARTHRITIS usually on chronic prednisone 5 mg daily ANXIETY Continue home medications DVT PROPHYLAXIS heparin _ coumadin DISPOSITION Lives with Follows with Dr. Inman for primary care Current Inpatient Medications: Current Inpatient Medications Medications (Trade) Dose Ordered Sig/Rosi Route Start Time Stop Time Status Last Admin Dose Admin Ondansetron HCl (Zofran Inj) 4 mg Q6H PRN IV 12/10/16 19:15 01/09/17 19:14 12/15/16 13:14 4 MG Albuterol Sulfate (Ventolin 0.083% 2.5MG/3ML Neb) 2.5 mg QID PRN INH 12/10/16 19:15 01/09/17 19:14 12/13/16 14:23 2.5 MG Calcium Carbonate (Tums Chew Tab) 500 mg BID PRN PO 12/10/16 19:15 01/09/17 19:14 Calcium/Vitamin D (Caltrate Plus Tab) 1 tab BIDM PO 12/11/16 07:30 01/10/17 07:59 12/15/16 16:24 1 TAB Docusate Sodium (coLACE CAP) 100 mg BID PO 12/11/16 09:00 01/10/17 08:59 12/15/16 08:10 100 MG Salmeterol Xinafoate/ Fluticasone (Advair Diskus 250/50 Inh) 1 puff BID INH 12/11/16 09:00 01/10/17 08:59 12/15/16 08:10 1 PUFF Lorazepam (Ativan Tab) 0.5 mg HS PRN PO 12/10/16 19:15 01/09/17 19:14 12/13/16 20:58 0.5 MG Magnesium Oxide (Mag-Ox Tab) 400 mg DAILY PO 12/11/16 09:00 01/10/17 08:59 12/15/16 08:10 400 MG Metoprolol Succinate (Toprol Xl Tab) 12.5 mg BID PO 12/10/16 21:00 01/09/17 20:59 12/15/16 08:11 12.5 MG Mirtazapine (Remeron Tab) 15 mg HS PO 12/10/16 21:00 01/09/17 20:59 12/14/16 20:04 15 MG Multivitamins (Multivitamin Tab) 1 tab DAILY PO 12/11/16 09:00 01/10/17 08:59 12/14/16 08:21 1 TAB Ondansetron HCl (Zofran Tab) 4 mg Q6 PRN PO 12/10/16 19:15 01/09/17 19:14 Oxycodone/ Acetaminophen (Percocet 5-325mg Tab) 1 tab Q8H PRN PO 12/10/16 19:15 12/24/16 19:14 12/14/16 20:23 1 TAB Cholecalciferol (Vitamin D Tab) 1,000 inter.unit DAILY PO 12/11/16 09:00 01/10/17 08:59 12/15/16 08:11 1,000 INTER.UNIT Paroxetine HCl (pAXil TAB) 40 mg DAILY PO 12/11/16 09:00 01/10/17 08:59 12/15/16 08:10 40 MG Tramadol HCl (Ultram Tab) 50 mg Q12H PRN PO 12/12/16 08:45 01/11/17 08:44 Furosemide (Lasix Tab) 40 mg DAILY PO 12/13/16 09:00 01/12/17 08:59 12/15/16 08:10 40 MG Clindamycin Phosphate 1 ea 1 ea UD PRN N/A 12/12/16 12:00 01/11/17 11:59 Heparin Sodium/ Dextrose 500 ml @ 12 mls/hr Q24H PRN IV 12/12/16 11:00 01/11/17 10:59 Future Hold 12/13/16 23:40 12 MLS/HR Clindamycin Phosphate/Dextrose (Cleocin Iv/ Dextrose Add-[place] 50ML) 54 ml @ 108 mls/hr Q8@04,12,20 IV 12/12/16 12:30 12/22/16 12:29 12/15/16 11:01 108 MLS/HR Prednisone (PredniSONE TAB) 60 mg DAILY PO 12/13/16 09:00 01/12/17 08:59 12/15/16 08:10 60 MG Senna/Docusate Sodium 1 tab 1 tab DAILY PRN PO 12/13/16 10:45 01/12/17 10:44 12/14/16 08:21 1 TAB Lorazepam/Syringe (Ativan Inj/ Syringe) 1 ml @ 0.5 mls/min Q12H PRN IV 12/13/16 14:15 01/12/17 14:14 12/14/16 18:39 0.5 MLS/MIN Ferrous Sulfate (Feosol Tab) 325 mg BIDM PO 12/14/16 08:00 01/13/17 07:59 12/15/16 16:24 325 MG Lactobacillus Acidophilus (Floranex Tab) 4 tab TIDM PO 12/14/16 12:00 01/13/17 11:59 12/15/16 16:24 4 TAB Pantoprazole Sodium (Protonix Tab) 40 mg BID PO 12/14/16 21:00 01/13/17 20:59 12/15/16 08:10 40 MG Morphine Sulfate (MoRPHine SULFATE INJ) 2 mg Q2H PRN IV 12/15/16 10:30 12/29/16 10:29 Warfarin Sodium (Coumadin Tab) 1 mg NOW ONCE PO 12/15/16 19:15 12/15/16 19:16 UNV
[2016-12-15] MEDS: LORAZEPAM INJ 0.5 MG in SYRINGE 0.75 ML IV PRN (19:30)
[2016-12-15] MEDS ORDERED: NURSING VERBAL MED ORDER ONE (19:30)
[2016-12-15] MEDS ORDERED: WARFARIN SOD 1 MG TAB PO ONE (19:45)
[2016-12-15] MEDS: HEPARIN 25,000 UNIT/500ML D5W 500 ML IV PRN (20:06)
[2016-12-15 20:14] VITALS: BP 122/76; PULSE 76; TEMP 36.6; O2SAT 96
[2016-12-15] MEDS: MIRTAZAPINE TAB 15 MG TAB PO SCH (20:30)
[2016-12-15] MEDS: OXYCODONE/ACETAMINOPHEN 5-325 TAB PO PRN (22:06)
[2016-12-16] VITALS (8 sets, daily range): BP systolic 102–121; BP diastolic 61–80; PULSE 68–85; TEMP 36.3–36.9; O2SAT 95–98
[2016-12-16 02:34] LABS: INR 1.4 (0.9-1.1); PARTIAL THROMBOPLASTIN RATIO 1.7; PROTHROMBIN TIME (PATIENT) 14.8 SECONDS (9.0-12.0)
[2016-12-16] MEDS: HEPARIN 25,000 UNIT/500ML D5W 500 ML IV PRN (02:56)
[2016-12-16] MEDS ORDERED: HEPARIN IV BOLUS 2,000 UNIT in SYRINGE 0 ML IV STA (03:05)
[2016-12-16] MEDS: PAROXETINE 20 MG TAB PO SCH (08:21)
[2016-12-16] MEDS: CALCIUM 600MG + VIT D 400 IU TAB PO SCH ×2 (08:21→17:28)
[2016-12-16] MEDS: FLUTICASONE/SALMETEROL 250/50 (ADVAIR) 14 PUFF/1 INHALER INH SCH (08:21)
[2016-12-16] MEDS: LACTOBACILLUS ACIDOPHILUS (FLORANEX) TAB PO SCH ×3 (08:21→17:28)
[2016-12-16] MEDS: MAGNESIUM OXIDE 400 MG TAB PO SCH (08:21)
[2016-12-16] MEDS: MULTIVITAMIN TAB PO SCH (08:21)
[2016-12-16] MEDS: FUROSEMIDE 40 MG TAB PO SCH (08:21)
[2016-12-16] MEDS: FERROUS SULFATE 325 MG TAB PO SCH ×2 (08:21→17:28)
[2016-12-16] MEDS: PANTOprazole SOD 40 MG TAB PO SCH (08:22)
[2016-12-16] MEDS: METOPROLOL SUCC 25MG EXT REL TAB PO SCH (08:22)
[2016-12-16] MEDS: CHOLECALCIFEROL 1000 INTER.UNIT TAB PO SCH (08:22)
[2016-12-16 08:35] LABS: COMPLETE YES; EOS % 0.1 %; HEMATOCRIT 30.1 % (37-47); LYMPH % 8.1 %; LYMPH ABS # 0.85 K/uL (1.2-3.4); MEAN CORPUSCULAR HEMOGLOBIN 31.9 pg (25-34); MEAN CORPUSCULAR HGB CONC 31.6 g/dl (32-36); MEAN PLATELET VOLUME 9.2 fL (7.4-10.4); MONO % 8.3 %; NEUT % 82.5 %; PLATELET COUNT 384 K/uL (130-400); RED BLOOD COUNT 2.98 M/uL (4.2-5.4); WHITE BLOOD COUNT 10.46 K/uL (4.8-10.8)
[2016-12-16 08:55] LABS: PARTIAL THROMBOPLASTIN RATIO 3.1
[2016-12-16 09:06] LABS: BUN/CREATININE RATIO 17.7 (10-20); CALCIUM 8.8 mg/dl (8.5-10.1); CREATININE 1.5 mg/dl (0.60-1.20)
--- NOTE | 2016-12-16 10:52 | Anesthesiology Progress Note ---
Anesthesia Post Op Note Date & Time December 16, 2016 at 10:53 Vital Signs Pain Intensity: 0.0 Vital Signs Past 12 Hours Date Time Temp Pulse Resp B/P Pulse Ox O2 Delivery O2 Flow Rate FiO2 12/16/16 08:00 Nasal Cannula 2.0 12/16/16 07:15 36.9 69 18 108/66 98 Nasal Cannula 2.0 12/16/16 05:31 36.3 68 20 121/80 98 Nasal Cannula 2.0 12/16/16 04:00 96 Nasal Cannula 2.0 12/16/16 00:31 36.5 72 16 102/61 96 Nasal Cannula 2.0 12/16/16 00:00 96 Nasal Cannula 2.0 Notes Mental Status: alert / awake / arousable, participated in evaluation Pt Amnestic to Procedure: Yes Nausea / Vomiting: adequately controlled Pain: adequately controlled Airway Patency, RR, SpO2: stable & adequate BP & HR: stable & adequate Hydration State: stable & adequate Anesthetic Complications: no major complications apparent
[2016-12-16 11:19] LABS: INR 1.3 (0.9-1.1); PROTHROMBIN TIME (PATIENT) 14.3 SECONDS (9.0-12.0)
--- NOTE | 2016-12-16 12:13 | Progress Note ---
Medicine Progress Note Date & Time of Visit: December 16, 2016 at 11:59. Subjective patient states she feels fine overall today comfortable, sitting up in bedside chair denies headache, changes with vision, tenderness on the face has some mild dyspnea on exertion but no chest pain, dizziness, nausea no bleeding denies other symptoms states she is ready and would like to be discharged today Objective Last 8 Hrs Date Time Temp Pulse Resp B/P Pulse Ox O2 Delivery O2 Flow Rate FiO2 12/16/16 11:36 36.9 85 20 112/71 97 Nasal Cannula 2.0 12/16/16 08:00 Nasal Cannula 2.0 12/16/16 07:15 36.9 69 18 108/66 98 Nasal Cannula 2.0 12/16/16 05:31 36.3 68 20 121/80 98 Nasal Cannula 2.0 12/16/16 04:00 96 Nasal Cannula 2.0 Physical Exam: General- oriented x 3, not in distress, speaks in sentences with no effort Eyes- anicteric ENT-RESOLVED facial edema and erythema on the right lower half of the face NO tenderness on the temporal region Head- (+) biopsy site: no bleeding, swelling, hematoma, discharge Neck- no JVD Lungs- mild rales at the bilateral bases, no wheezes Heart- normal rate, regular rhythm; no murmurs Abdomen- normal bowel sounds, soft, nontender Extremities- no leg edema, no calf tenderness Neuro- alert, oriented x 3; no gross focal deficits Skin- warm & dry Laboratory Results: Last 24 Hours Test 12/15/16 20:05 12/16/16 02:15 12/16/16 08:00 12/16/16 11:03 Activated Partial Thromboplast Time 25.8 SECONDS 44.5 SECONDS 81.1 SECONDS Partial Thromboplastin Ratio 1.0 1.7 3.1 Prothrombin Time 14.8 SECONDS 14.3 SECONDS Prothromb Time International Ratio 1.4 1.3 White Blood Count 10.46 K/uL Red Blood Count 2.98 M/uL Hemoglobin 9.5 g/dL Hematocrit 30.1 % Mean Corpuscular Volume 101.0 fL Mean Corpuscular Hemoglobin 31.9 pg Mean Corpuscular Hemoglobin Concent 31.6 g/dl Platelet Count 384 K/uL Mean Platelet Volume 9.2 fL Neutrophils (%) (Auto) 82.5 % Lymphocytes (%) (Auto) 8.1 % Monocytes (%) (Auto) 8.3 % Eosinophils (%) (Auto) 0.1 % Basophils (%) (Auto) 0.0 % Neutrophils # (Auto) 8.63 K/uL Lymphocytes # (Auto) 0.85 K/uL Monocytes # (Auto) 0.87 K/uL Eosinophils # (Auto) 0.01 K/uL Basophils # (Auto) 0.00 K/uL RDW Standard Deviation 63.4 fL RDW Coefficient of Variation 17.1 % Immature Granulocyte % (Auto) 1.0 % Immature Granulocyte # (Auto) 0.10 K/uL Nucleated RBC Absolute Count (auto) 0.04 K/uL Nucleated Red Blood Cells % 0.4 % Sodium Level 144 mmol/L Potassium Level 4.0 mmol/L Chloride Level 106 mmol/L Carbon Dioxide Level 31 mmol/L Anion Gap 7.0 mmol/L Blood Urea Nitrogen 27 mg/dl Creatinine 1.50 mg/dl Est Creatinine Clear Calc Drug Dose 25.1 ml/min Estimated GFR () 37.0 Estimated GFR (Non- 31.9 BUN/Creatinine Ratio 17.7 Random Glucose 89 mg/dl Calcium Level 8.8 mg/dl Assessment & Plan 81 year old female with history of CHF, CAD, TAVR, PE on coumadin, Arthritis on Chronic Prednisone, presenting with abnormal labs. Acute Blood loss Anemia in the setting of Supratherapeutic INR possible underlying Upper GI Bleed Reports of melena; stool is dark heme positive on ER provider's exam Patient on Coumadin with supratherapeutic INR (8 on outpatient lab) Hg was 9.0 today as outpatient -> 8.7 in ER; baseline 11's-12's due to iron deficiency anemia and anemia of CKD -- given Vitamin K coumadin held -- INR 1.8 from > 8 Hg 8.3 from 8.7 -- evaluated by GI, EGD not recommended at this time -- placed on Protonix drip, change to Protonix BI held coumadin and Aspirin -- discussed case with GI and Hematology Hg stable, no signs of active gi bleed resumed coumadin with bridging heparin continue Hg monitoring and Protonix BID -- hg 7.7 --> given 1 unit pRBC--> Hg 9.4 16 : 9.5 no signs of active bleeding FeSO4 started monitor Hg as outpatient HISTORY OF PE - 1st episode 2005: seen by Dr. 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 - 2nd episode 2008: spontaneous (based on history), coumadin then resumed since 3rd episode 2012 -- discussed with Hematology will need indefinite anticoagulation with coumadin and close Hg monitoring if not tolerating, possible IVC filter - 12/16/16: INR 1.3 will need Lovenox bridge with coumadin on discharge fff up with coumadin clinic closely HEADACHE Question of temporal arteritis- noted to have extremely elevated ESR (>120) on outpatient labs; ESR [address] head negative as outpatient given prednisone 60 mg on admission day with improvement of symptoms --- possible TEMPORAL ARTERITIS? s/p Temporal Artery Biopsy 12/15/16 ff up Pathology may resume heparin + coumadin today per Dr. Campos on empiric Prednisone 60mg daily, no headache since this was started Protonix IV BID appreciate Surgery SVC eval -- possible RIGHT SIDED FACIAL CELLULITIS, IN THE SETTING OF RECENT DENTAL EXTRACTION? 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 There is severe concentric left ventricular hypertrophy. There is severe calcific aortic valve stenosis. Mild aortic regurgitation. There is mild to moderate tricuspid regurgitation. Grade I diastolic dysfunction, (abnormal relaxation pattern). -- euvolemic -- resumed Lasix PO --Cardiology consulted CAD S/P PCI TO RCA 2011 Denies chest pain Aspirin held for GIB/ anemia, on heparin Continue Metoprolol CKD STAGE III Creat is 1.6; baseline trended up over past 6 months from 1.2-> 1.5 -- stable ASTHMA Not in acute exacerbation Continue home inhalers CHRONIC RESPIRATORY FAILURE Currently saturating well on RA Continue home O2 2 liters NC HS and PRN OSTEOARTHRITIS usually on chronic prednisone 5 mg daily ANXIETY Continue home medications DVT PROPHYLAXIS Lovenox + coumadin DISPOSITION Lives with Follows with Dr. Inman for primary care Current Inpatient Medications: Current Inpatient Medications Medications (Trade) Dose Ordered Sig/Rosi Route Start Time Stop Time Status Last Admin Dose Admin Ondansetron HCl (Zofran Inj) 4 mg Q6H PRN IV 12/10/16 19:15 01/09/17 19:14 12/15/16 13:14 4 MG Albuterol Sulfate (Ventolin 0.083% 2.5MG/3ML Neb) 2.5 mg QID PRN INH 12/10/16 19:15 01/09/17 19:14 12/13/16 14:23 2.5 MG Calcium Carbonate (Tums Chew Tab) 500 mg BID PRN PO 12/10/16 19:15 01/09/17 19:14 Calcium/Vitamin D (Caltrate Plus Tab) 1 tab BIDM PO 12/11/16 07:30 01/10/17 07:59 12/16/16 08:21 1 TAB Salmeterol Xinafoate/ Fluticasone (Advair Diskus 250/50 Inh) 1 puff BID INH 12/11/16 09:00 01/10/17 08:59 12/16/16 08:21 1 PUFF Lorazepam (Ativan Tab) 0.5 mg HS PRN PO 12/10/16 19:15 01/09/17 19:14 12/13/16 20:58 0.5 MG Magnesium Oxide (Mag-Ox Tab) 400 mg DAILY PO 12/11/16 09:00 01/10/17 08:59 12/16/16 08:21 400 MG Metoprolol Succinate (Toprol Xl Tab) 12.5 mg BID PO 12/10/16 21:00 01/09/17 20:59 12/16/16 08:22 12.5 MG Mirtazapine (Remeron Tab) 15 mg HS PO 12/10/16 21:00 01/09/17 20:59 12/15/16 20:30 15 MG Multivitamins (Multivitamin Tab) 1 tab DAILY PO 12/11/16 09:00 01/10/17 08:59 12/16/16 08:21 1 TAB Ondansetron HCl (Zofran Tab) 4 mg Q6 PRN PO 12/10/16 19:15 01/09/17 19:14 Oxycodone/ Acetaminophen (Percocet 5-325mg Tab) 1 tab Q8H PRN PO 12/10/16 19:15 12/24/16 19:14 12/15/16 22:06 1 TAB Cholecalciferol (Vitamin D Tab) 1,000 inter.unit DAILY PO 12/11/16 09:00 01/10/17 08:59 12/16/16 08:22 1,000 INTER.UNIT Paroxetine HCl (pAXil TAB) 40 mg DAILY PO 12/11/16 09:00 01/10/17 08:59 12/16/16 08:21 40 MG Tramadol HCl (Ultram Tab) 50 mg Q12H PRN PO 12/12/16 08:45 01/11/17 08:44 Furosemide 40 mg 40 mg DAILY PO 12/13/16 09:00 01/12/17 08:59 12/16/16 08:21 40 MG Heparin Sodium/ Dextrose (Heparin 25,000 Unit/500ml D5W) 500 ml @ 12 mls/hr Q24H PRN IV 12/12/16 11:00 01/11/17 10:59 Future hold 12/16/16 02:56 13 MLS/HR Prednisone (PredniSONE TAB) 60 mg DAILY PO 12/13/16 09:00 01/12/17 08:59 12/16/16 08:22 60 MG Senna/Docusate Sodium 1 tab 1 tab DAILY PRN PO 12/13/16 10:45 01/12/17 10:44 12/14/16 08:21 1 TAB Lorazepam/Syringe (Ativan Inj/ Syringe) 1 ml @ 0.5 mls/min Q12H PRN IV 12/13/16 14:15 01/12/17 14:14 12/15/16 19:30 0.5 MLS/MIN Ferrous Sulfate (Feosol Tab) 325 mg BIDM PO 12/14/16 08:00 01/13/17 07:59 12/16/16 08:21 325 MG Lactobacillus Acidophilus (Floranex Tab) 4 tab TIDM PO 12/14/16 12:00 01/13/17 11:59 12/16/16 08:21 4 TAB Pantoprazole Sodium (Protonix Tab) 40 mg BID PO 12/14/16 21:00 01/13/17 20:59 12/16/16 08:22 40 MG Morphine Sulfate (MoRPHine SULFATE INJ) 2 mg Q2H PRN IV 12/15/16 10:30 12/29/16 10:29
[2016-12-16] MEDS: CLINDAMYCIN HCL 150 MG CAP PO SCH ×2 (12:33→17:32)
--- NOTE | 2016-12-16 12:33 | DIAGNOSTIC IMAGING REPORT ---
CHEST ONE VIEW PORTABLE CLINICAL HISTORY: CHF diastolic, r/o pulmonary edema chest pain. Dyspnea. COMPARISON STUDY: 12/10/2016 FINDINGS: Hiatal hernia. Stable pleural-parenchymal scarring. No focal infiltrate. Diaphragms are smooth. IMPRESSION: Chronic change. Fixed hiatal hernia. No acute process. Electronically signed by: Albert Mccarthy M.D. 12/16/2016 12:31 PM Dictated Date/Time: 12/16/2016 12:29 PM
[2016-12-16] MEDS ORDERED: ENOXAPARIN 80 MG/0.8 ML SYR SQ SCH ×2 (13:00)
--- NOTE | 2016-12-16 13:06 | Surgery Progress Note ---
Surgery Progress Note Date of Service December 16, 2016. Subjective Post OP Day: 1 + feeling well no complaints. no pain at incision site. Objective Vital Signs: Date Time Temp Pulse Resp B/P Pulse Ox O2 Delivery O2 Flow Rate FiO2 12/16/16 12:00 Nasal Cannula 2.0 12/16/16 11:36 36.9 85 20 112/71 97 Nasal Cannula 2.0 12/16/16 08:00 Nasal Cannula 2.0 12/16/16 07:15 36.9 69 18 108/66 98 Nasal Cannula 2.0 12/16/16 05:31 36.3 68 20 121/80 98 Nasal Cannula 2.0 12/16/16 04:00 96 Nasal Cannula 2.0 12/16/16 00:31 36.5 72 16 102/61 96 Nasal Cannula 2.0 12/16/16 00:00 96 Nasal Cannula 2.0 12/15/16 20:14 36.6 76 18 122/76 96 Nasal Cannula 2.0 12/15/16 20:00 Room Air 2.0 Nasal Cannula 12/15/16 16:00 Room Air 2.0 Nasal Cannula 12/15/16 15:49 36.4 75 20 113/69 96 Incision(s): clean, dry, intact, no erythema Laboratory Results: Results Past 24 Hours Test 12/15/16 20:05 12/16/16 02:15 12/16/16 08:00 12/16/16 11:03 Range/Units Activated Partial Thromboplast Time 25.8 44.5 81.1 21.0-31.0 SECONDS Partial Thromboplastin Ratio 1.0 1.7 3.1 Prothrombin Time 14.8 14.3 9.0-12.0 SECONDS Prothromb Time International Ratio 1.4 1.3 0.9-1.1 White Blood Count 10.46 4.8-10.8 K/uL Red Blood Count 2.98 4.2-5.4 M/uL Hemoglobin 9.5 12.0-16.0 g/dL Hematocrit 30.1 37-47 % Mean Corpuscular Volume 101.0 80-100 fL Mean Corpuscular Hemoglobin 31.9 25-34 pg Mean Corpuscular Hemoglobin Concent 31.6 32-36 g/dl Platelet Count 384 130-400 K/uL Mean Platelet Volume 9.2 7.4-10.4 fL Neutrophils (%) (Auto) 82.5 % Lymphocytes (%) (Auto) 8.1 % Monocytes (%) (Auto) 8.3 % Eosinophils (%) (Auto) 0.1 % Basophils (%) (Auto) 0.0 % Neutrophils # (Auto) 8.63 1.4-6.5 K/uL Lymphocytes # (Auto) 0.85 1.2-3.4 K/uL Monocytes # (Auto) 0.87 0.11-0.59 K/uL Eosinophils # (Auto) 0.01 0-0.5 K/uL Basophils # (Auto) 0.00 0-0.2 K/uL RDW Standard Deviation 63.4 36.4-46.3 fL RDW Coefficient of Variation 17.1 11.5-14.5 % Immature Granulocyte % (Auto) 1.0 % Immature Granulocyte # (Auto) 0.10 0.00-0.02 K/uL Nucleated RBC Absolute Count (auto) 0.04 0-0 K/uL Nucleated Red Blood Cells % 0.4 % Sodium Level 144 136-145 mmol/L Potassium Level 4.0 3.5-5.1 mmol/L Chloride Level 106 98-107 mmol/L Carbon Dioxide Level 31 21-32 mmol/L Anion Gap 7.0 3-11 mmol/L Blood Urea Nitrogen 27 7-18 mg/dl Creatinine 1.50 0.60-1.20 mg/dl Est Creatinine Clear Calc Drug Dose 25.1 ml/min Estimated GFR () 37.0 Estimated GFR (Non- 31.9 BUN/Creatinine Ratio 17.7 10-20 Random Glucose 89 70-99 mg/dl Calcium Level 8.8 8.5-10.1 mg/dl Assessment & Plan 12/16/16 doing well from bx wound looks good path pending ok to restart anticoagulation will s/o. please call if needed. 12/14/16 rediscussed plan for temporal artery bx for tomorrow will hold heparin drip at 2 am tonight PRBC given by medicine. hg improved. discussed risks/answered questions. will proceed with bx tomorrow. rediscussed plan for temporal artery bx for tomorrow will hold heparin drip at 2 am tonight PRBC given by medicine. hg improved. discussed risks/answered questions. will proceed with bx tomorrow.
--- NOTE | 2016-12-16 15:38 | Hematology/Oncology Prog Note ---
Hematology/Onc Progress Note Date of Service December 16, 2016. Medications Medications Administered Medications (Trade) Dose Ordered Sig/Rosi Route Start Time Stop Time Status Last Admin Dose Admin Pantoprazole Sodium/Syringe (Protonix Inj/ Syringe) 10 ml @ 5 mls/min NOW ONCE IV 12/10/16 18:30 12/10/16 18:31 DC 12/10/16 19:41 5 MLS/MIN Famotidine 20 mg 20 mg ONE STAT IV 12/10/16 18:17 12/10/16 18:18 DC 12/10/16 19:10 20 MG Potassium Chloride/Sodium Chloride (Nss + 20meq KCl 1000ml) 1,000 ml @ 75 mls/hr [id number] IV 12/10/16 21:30 12/11/16 14:35 DC 12/11/16 10:58 75 MLS/HR Ondansetron HCl (Zofran Inj) 4 mg Q6H PRN IV 12/10/16 19:15 01/09/17 19:14 12/15/16 13:14 4 MG Albuterol Sulfate (Ventolin 0.083% 2.5MG/3ML Neb) 2.5 mg QID PRN INH 12/10/16 19:15 01/09/17 19:14 12/13/16 14:23 2.5 MG Calcium/Vitamin D (Caltrate Plus Tab) 1 tab BIDM PO 12/11/16 07:30 01/10/17 07:59 12/16/16 08:21 1 TAB Docusate Sodium (coLACE CAP) 100 mg BID PO 12/11/16 09:00 12/15/16 19:17 DC 12/15/16 08:10 100 MG Salmeterol Xinafoate/ Fluticasone (Advair Diskus 250/50 Inh) 1 puff BID INH 12/11/16 09:00 01/10/17 08:59 12/16/16 08:21 1 PUFF Lorazepam (Ativan Tab) 0.5 mg HS PRN PO 12/10/16 19:15 01/09/17 19:14 12/13/16 20:58 0.5 MG Magnesium Oxide (Mag-Ox Tab) 400 mg DAILY PO 12/11/16 09:00 01/10/17 08:59 12/16/16 08:21 400 MG Metoprolol Succinate (Toprol Xl Tab) 12.5 mg BID PO 12/10/16 21:00 01/09/17 20:59 12/16/16 08:22 12.5 MG Mirtazapine (Remeron Tab) 15 mg HS PO 12/10/16 21:00 01/09/17 20:59 12/15/16 20:30 15 MG Multivitamins (Multivitamin Tab) 1 tab DAILY PO 12/11/16 09:00 01/10/17 08:59 12/16/16 08:21 1 TAB Oxycodone/ Acetaminophen (Percocet 5-325mg Tab) 1 tab Q8H PRN PO 12/10/16 19:15 12/24/16 19:14 12/15/16 22:06 1 TAB Cholecalciferol (Vitamin D Tab) 1,000 inter.unit DAILY PO 12/11/16 09:00 01/10/17 08:59 12/16/16 08:22 1,000 INTER.UNIT Paroxetine HCl (pAXil TAB) 40 mg DAILY PO 12/11/16 09:00 01/10/17 08:59 12/16/16 08:21 40 MG Prednisone 60 mg 60 mg NOW ONCE PO 12/10/16 20:15 12/10/16 20:22 DC 12/10/16 20:08 60 MG Phytonadione/ Sodium Chloride (Aqua-Mephyton Inj/Nss 50ml) 50.5 ml @ 101 mls/hr TODAY@2014 ONCE IV 12/10/16 20:15 12/10/16 20:44 DC 12/10/16 20:25 101 MLS/HR Prednisone 5 mg 5 mg DAILY PO 12/11/16 09:00 12/12/16 12:06 DC 12/12/16 09:17 5 MG Pantoprazole Sodium 80 mg/ Dextrose 120 ml @ 480 mls/hr 2100 ONCE IV 12/10/16 21:00 12/10/16 21:14 DC 12/10/16 21:52 480 MLS/HR Pantoprazole Sodium/Dextrose (Protonix Inj/D5 100ml) 100 ml @ 20 mls/hr Q5H IV 12/10/16 21:15 12/11/16 02:14 DC 12/10/16 21:51 20 MLS/HR Tramadol HCl 50 mg 50 mg 0900 ONCE PO 12/12/16 09:00 12/12/16 09:01 DC 12/12/16 08:43 50 MG Pantoprazole Sodium/Syringe (Protonix Inj/ Syringe) 10 ml @ 5 mls/min DAILY@,21 IV 12/12/16 09:00 12/14/16 13:21 DC 12/14/16 08:19 5 MLS/MIN Furosemide 40 mg 40 mg DAILY PO 12/13/16 09:00 01/12/17 08:59 12/16/16 08:21 40 MG Heparin Sodium/ Dextrose (Heparin 25,000 Unit/500ml D5W) 500 ml @ 12 mls/hr Q24H PRN IV 12/12/16 11:00 12/16/16 12:11 DC 12/16/16 02:56 13 MLS/HR Prednisone 40 mg 40 mg 1230 ONCE PO 12/12/16 12:30 12/12/16 12:31 DC 12/12/16 13:33 40 MG Clindamycin Phosphate 600 mg/ Dextrose 54 ml @ 108 mls/hr Q8@04,12,20 IV 12/12/16 12:30 12/15/16 19:17 DC 12/15/16 11:01 108 MLS/HR Heparin Sodium (Porcine)/Syringe (Heparin Iv Bolus/Syringe) 4 ml @ 10 mls/min 2000 ONCE IV 12/12/16 20:00 12/12/16 20:01 DC 12/12/16 20:20 10 MLS/MIN Prednisone (PredniSONE TAB) 60 mg DAILY PO 12/13/16 09:00 01/12/17 08:59 12/16/16 08:22 60 MG Prednisone (PredniSONE TAB) 20 mg 2200 ONCE PO 12/12/16 22:00 12/12/16 22:01 DC 12/12/16 22:21 20 MG Senna/Docusate Sodium 1 tab 1 tab DAILY PRN PO 12/13/16 10:45 01/12/17 10:44 12/14/16 08:21 1 TAB Lorazepam 0.5 mg/ Syringe 1 ml @ 0.5 mls/min Q12H PRN IV 12/13/16 14:15 01/12/17 14:14 12/15/16 19:30 0.5 MLS/MIN Furosemide/Syringe (Lasix Inj/ Syringe) 2 ml @ 4 mls/min 1900 IV 12/13/16 19:00 12/13/16 23:59 DC 12/13/16 21:59 4 MLS/MIN Lactobacillus Acidophilus (Lactinex Granules Pack) 1 gm TIDM PO 12/14/16 08:00 12/14/16 09:41 DC 12/14/16 08:18 1 GM Ferrous Sulfate (Feosol Tab) 325 mg BIDM PO 12/14/16 08:00 01/13/17 07:59 12/16/16 08:21 325 MG Lactobacillus Acidophilus (Floranex Tab) 4 tab TIDM PO 12/14/16 12:00 01/13/17 11:59 12/16/16 12:33 4 TAB Potassium Chloride (Klor-Con M10) 40 meq NOW ONCE PO 12/14/16 10:00 12/14/16 10:01 DC 12/14/16 10:36 40 MEQ Miscellaneous (Stop Order) 1 ea TODAY@0200 ONCE N/A 12/15/16 02:00 12/15/16 02:01 DC 12/15/16 01:54 1 EA Pantoprazole Sodium (Protonix Tab) 40 mg BID PO 12/14/16 21:00 01/13/17 20:59 12/16/16 08:22 40 MG Clindamycin Phosphate (Cleocin 600mg/ 54ml D5W) 600 mg STK-MED ONCE IV 12/15/16 09:30 12/15/16 09:31 DC 12/15/16 09:37 600 MG Bupivacaine HCl/ Epinephrine Bitart (Sensorcaine/ Epinephrine 0.5% Mpf 1:200,000) 30 ml STK-MED ONCE .ROUTE 12/15/16 09:45 12/15/16 09:46 DC 12/15/16 10:15 2 ML Warfarin Sodium 1 mg 1 mg NOW ONCE PO 12/15/16 19:45 12/15/16 19:46 DC 12/15/16 20:03 1 MG Heparin Sodium (Porcine)/Syringe (Heparin Iv Bolus/Syringe) 2 ml @ 10 mls/min NOW STAT IV 12/16/16 03:05 12/16/16 03:06 DC 12/16/16 03:18 10 MLS/MIN Clindamycin HCl (Cleocin Cap) 300 mg Q6 PO 12/16/16 12:00 12/26/16 11:59 12/16/16 12:33 300 MG Warfarin Sodium (Coumadin Tab) 2 mg DAILY@16 PO 12/16/16 16:00 01/15/17 15:59 12/16/16 15:27 2 MG Enoxaparin Sodium (Lovenox Inj) 70 mg DAILY@1200 SQ 12/16/16 13:00 01/15/17 12:59 12/16/16 12:34 70 MG Subjective Ms. Conley reports feeling overall fair today. She states her continues to be resolved since she has been placed on steroid. Most of visit today focused on plan for discharge. See below. Vital Signs Vital Signs Past 12 Hours Date Time Temp Pulse Resp B/P Pulse Ox O2 Delivery O2 Flow Rate FiO2 12/16/16 15:18 36.4 83 18 95 Room Air 12/16/16 14:39 36.4 83 18 117/71 95 Room Air 12/16/16 12:00 Nasal Cannula 2.0 12/16/16 11:36 36.9 85 20 112/71 97 Nasal Cannula 2.0 12/16/16 08:00 Nasal Cannula 2.0 12/16/16 07:15 36.9 69 18 108/66 98 Nasal Cannula 2.0 12/16/16 05:31 36.3 68 20 121/80 98 Nasal Cannula 2.0 12/16/16 04:00 96 Nasal Cannula 2.0 Physical Exam Constitutional: General Apperance: heathly-appearing, well-nourished Level of Distress: NAD Laboratory 12/16/16 08:00 Red Blood Count 2.98, Mean Corpuscular Volume 101.0, Mean Corpuscular Hemoglobin 31.9, Mean Corpuscular Hemoglobin Concent 31.6, Mean Platelet Volume 9.2, Neutrophils (%) (Auto) 82.5, Lymphocytes (%) (Auto) 8.1, Monocytes (%) ( Auto) 8.3, Eosinophils (%) (Auto) 0.1, Basophils (%) (Auto) 0.0, Neutrophils # ( Auto) 8.63, Lymphocytes # (Auto) 0.85, Monocytes # (Auto) 0.87, Eosinophils # ( Auto) 0.01, Basophils # (Auto) 0.00 12/16/16 08:00 Test 12/16/16 08:00 12/16/16 11:03 White Blood Count 10.46 K/uL (4.8-10.8) Red Blood Count 2.98 M/uL (4.2-5.4) Hemoglobin 9.5 g/dL (12.0-16.0) Hematocrit 30.1 % (37-47) Mean Corpuscular Volume 101.0 fL (80-100) Mean Corpuscular Hemoglobin 31.9 pg (25-34) Mean Corpuscular Hemoglobin Concent 31.6 g/dl (32-36) Platelet Count 384 K/uL (130-400) Mean Platelet Volume 9.2 fL (7.4-10.4) Neutrophils (%) (Auto) 82.5 % Lymphocytes (%) (Auto) 8.1 % Monocytes (%) (Auto) 8.3 % Eosinophils (%) (Auto) 0.1 % Basophils (%) (Auto) 0.0 % Neutrophils # (Auto) 8.63 K/uL (1.4-6.5) Lymphocytes # (Auto) 0.85 K/uL (1.2-3.4) Monocytes # (Auto) 0.87 K/uL (0.11-0.59) Eosinophils # (Auto) 0.01 K/uL (0-0.5) Basophils # (Auto) 0.00 K/uL (0-0.2) RDW Standard Deviation 63.4 fL (36.4-46.3) RDW Coefficient of Variation 17.1 % (11.5-14.5) Immature Granulocyte % (Auto) 1.0 % Immature Granulocyte # (Auto) 0.10 K/uL (0.00-0.02) Nucleated RBC Absolute Count (auto) 0.04 K/uL (0-0) Nucleated Red Blood Cells % 0.4 % Activated Partial Thromboplast Time 81.1 SECONDS (21.0-31.0) Partial Thromboplastin Ratio 3.1 Anion Gap 7.0 mmol/L (3-11) Est Creatinine Clear Calc Drug Dose 25.1 ml/min Estimated GFR () 37.0 Estimated GFR (Non- 31.9 BUN/Creatinine Ratio 17.7 (10-20) Calcium Level 8.8 mg/dl (8.5-10.1) Prothrombin Time 14.3 SECONDS (9.0-12.0) Prothromb Time International Ratio 1.3 (0.9-1.1) Assessment & Plan 1. History of pulmonary embolism - she has had 3 events - in 2004, 2008 and in 2013 (last 2 unprovoked). 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 Chávez has recommended indefinite anticoagulation * Patient requesting to be discharged in near future due to family issues, recommended to patient today that hematology recommends heparin gtt bridge to Coumadin, but alternatively (discussed between Kyler and Abigail) patient will be bridge on prophylactic Lovenox 1 mg/kg daily, Coumadin started yesterday, now on 2 mg daily * Will require close follow up with Coumadin Clinic for Xa and INR monitoring, INR recommended to be kept between 2-2.5 * Dopplers this hospitalization of LEs negative 2. Anemia- may be multifactorial - chronic inflammation, CKD * May have had component of blood loss on presentation to hospital with acute on chronic exacerbation with supratherapeutic INR and report of melena, Hgb down into 8s on presentation, s/p 1 unit PRBC 12/13/16 when Hgb declined into 7 range (baseline around 11) * Iron and transferrin saturations levels low, patient on iron supplementation * FOBT negative * GI has not recommended EGD during this hospitalization- EGD/colonoscopy to occur in outpatient setting Patient requires follow up with hematology on discharge from hospital. Will continue to follow along while patient is hospitalized.
[2016-12-16] MEDS ORDERED: WARFARIN SOD 2 MG TAB PO SCH (16:00)
[2016-12-16] MEDS: LORAZEPAM INJ 0.5 MG in SYRINGE 0.75 ML IV PRN (16:59)
[2016-12-16] MEDS ORDERED: CLC150 PO (17:12)
[2016-12-16] MEDS ORDERED: LCTX PO (17:12)
[2016-12-16] MEDS ORDERED: LVNIS80 SQ (17:12)
[2016-12-16] MEDS ORDERED: DOCU-94 PO (17:12)
[2016-12-16] MEDS ORDERED: PRED10TA PO (17:12)
--- NOTE | 2016-12-16 17:28 | Discharge Instructions ---
Discharge Instructions Date of Service December 16, 2016. Admission Reason for Admission: Elevated Inr, Gib, Temporal Arteritis Discharge Discharge Diagnosis / Problem: ELEVATED INR, ANEMIA Discharge Goals Goal(s): Diagnostic testing, Therapeutic intervention Activity Recommendations Activity Limitations: as noted below (NO HEAVY EXERTION UNTIL RE EVALUATED BY PRIMARY CARE PHYSICIAN) Lifting Limitations: until after follow-up appointment Exercise/Sports Limitations: until after follow-up appointment . Instructions / Follow-Up Instructions / Follow-Up PLEASE REVIEW YOUR NEW MEDICATION LIST AND FOLLOW INSTRUCTIONS CAREFULLY. CALL PRIMARY CARE PHYSICIAN OR RETURN TO ER IMMEDIATELY IF WITH WORSENING OF SYMPTOMS, BLOOD IN THE STOOLS, ABDOMINAL PAIN, DIARRHEA BLEEDING, INCREASING SWELLING, PAIN, DISCHARGE ON THE SURGICAL SITE ANY BLEEDING WEAKNESS, DIZZINESS, SHORTNESS OF BREATH, CHEST PAIN FEVER/CHILLS, INCREASING SWELLING ON THE FACE FOLLOW UP WITH ON THURSDAY DECEMBER 22, 2016 AT 12:45 PM. FOLLOW UP WITH ANTICOAGULATION/COUMADIN CLINIC THIS WEEK FOR BLOOD WORK (INR). CLINIC WILL CALL YOU FOR APPOINTMENT DATE. FOLLOW UP WITH NATIONAL ACCOUNT REPRESENTATIVE SCHEDULED. Call your Primary Care doctor if any of the following symptoms or problems start or get worse: * Shortness of breath or difficulty breathing * Wake up at night short of breath * Chest pain * Cough * Swelling of your hands, feet, or legs * More fatigued or tired with your normal activity * Palpitations - sudden fast heart beats WEIGHT * Weigh yourself every morning after using the bathroom. * Use the same scale. * Wear the same amount of clothing. * Write your weight down on a chart. * Call your Primary Care doctor if you gain more than 2-3 pounds in 1-2 days. MEDICATIONS * Use this discharge instruction sheet for medication instructions. * Take your medications at the time your doctor ordered. * Do not skip a dose of your medicines. * If you miss a dose of medicine, take it as soon as possible, but DO NOT DOUBLE A DOSE. * Read your medicine information when you get home. * Know all of the side effects of your medicine. If in doubt, ask your pharmacist * Call your Primary Care doctor's office if you have any side effects. * Be sure all of your doctors know what medicine and herbs you take (including cold, flu, and herbal medicine). Take the following with you to your follow-up doctor appointments: * Weight Chart * Medication List * List of questions Do not drink excessive alcohol, beer or wine. Current Hospital Diet Patient's current hospital diet: AHA Diet (Heart Healthy) Discharge Diet Recommended Diet: AHA Diet (Heart Healthy) Fluid Restriction: 1800 ml (7 cups) Procedures Procedures Performed: 12/15/16 Right Temporal Artery Biopsy Pending Studies Studies pending at discharge: yes List of pending studies: REPEAT INR THIS WEEK BY COUMADIN CLINIC Medical Emergencies . Who to Call and When: Call 911 or go to the Emergency Room if: * If at any time you feel your situation is an emergency * You have tightness or pain in your chest that does not go away with rest or Nitroglycerin * You are very short of breath even with rest . Non-Emergent Contact Non-Emergency issues call your: Primary Care Provider Call Non-Emergent contact if: you have a fever, your pain is not controlled, your pain is worsening, wound has increased drainage, wound has increased redness, wound has increased pain, you have any medication questions . . "Provider Documentation" section prepared by Jimenez Hayes. . VTE Core Measure Inpt VTE Proph given/why not?: Unfractionated heparin SQ, Warfarin (Coumadin)
--- NOTE | 2016-12-16 17:39 | Discharge Summary ---
Discharge Summary Date of Service December 16, 2016. Discharge Summary Admission Date: December 10, 2016 at 19:07 Discharge Date: December 16, 2016 Discharge Disposition: Home with services Principal Diagnosis: Acute Blood loss Anemia in the setting of Supratherapeutic INR on Chronic Anemia: Multifactorial- Iron Deficiency, Anemia of CKD, Chronic Inflammation Secondary Diagnoses/Problems: Please refer to hospital course below. Procedures: Temporal Artery Biopsy (12/15/[address] Campos); 1 unit pRBC transfusion Consultations: GI Dr. Lees, Hematology Dr. Chávez, Neurology Dr. Lyon, Rheumatology Dr. Benoit , General Surgery Dr. Campos, Loan Documentation Specialist Dr. Childs Pending Studies/Follow-Up: Please refer to hospital course below. Medication Reconciliation New Medications: Prednisone Tab (Prednisone) 10 Mg Tab 10 MG PO UD for 4 Days, #10 TAB take 4 tabs po daily x 1 day, then take 3 tabs po daily x 1 day, then take 2 tabs po daily x 1 day, then take 1 tab po daily x 1 day, then resume taking usual 5mg daily Clindamycin HCl (Clindamycin HCl) 150 Mg Cap 300 MG PO Q6 for 3 Days, #24 CAP 0 Refills Enoxaparin (Lovenox) 80 Mg/0.8 Ml Inj 70 MG SQ DAILY@1200 for 10 Days, #10 UNITS 1 Refill further instructions as per Anticoagulation/Coumadin Clinic Changed Medications: Docusate Sodium (Colace) 100 Mg Cap 1 CAP PO DAILY PRN for constipation for 15 Days, #15 CAP (Medication details modified) Lactobacillus Acidophilus (Lactinex) Tab 4 TAB PO TID for 3 Days, #36 TAB 1 Refill (Changed from: 1 TAB; Refills: ) after 3 days, resume taking 1 tab TID Continued Medications: Acetaminophen (Tylenol) 325 Mg Tab 650 MG PO Q4 PRN for Pain Albuterol Sulf (Proventil 0.083% 2.5MG/3ML) 2.5 Mg/3 Ml Nebu 2.5 MG INH QID PRN for SOB/Wheezing, EA Ascorbic Acid (Vitamin C) 500 Mg Cap 500 MG PO DAILY Aspirin (Aspirin EC Low Dose) 81 Mg Ectab 81 MG PO DAILY Calcium Carbonate (Tums) 500 Mg Chew 500 MG PO BID PRN for Heartburn Calcium/Vitamin D (Os-Ismael 500 Plus D) Tab 1 TAB PO BIDM Cholecalciferol (Vitamin D3) 2,000 Unit Cap 1 CAP PO DAILY for 30 Days, #30 CAP 3 Refills Ferrous Sulfate (Ferrous Sulfate) 325 Mg Tab 325 MG PO BID Fluticasone Prop/Salmeterol (Advair Diskus 250/50 60 Dose) 1 Ea Aerp 1 PUFF INH BID, INHALER Furosemide (Lasix) 40 Mg Tab 40 MG PO DAILY for 30 Days, #30 TAB 3 Refills Lorazepam (Lorazepam) 0.5 Mg Tab 0.5 MG PO HS PRN for Insomnia Magnesium Oxide (Mag-Ox) 400 Mg Tab 400 MG PO DAILY, TAB Metoprolol Succinate (Metoprolol Succinate ER) 25 Mg Tabcr 12.5 MG PO BID Mirtazapine (Remeron) 15 Mg Tab 1 TAB PO HS for 30 Days, #30 TAB 1 Refill Multiple Vitamin (Multivitamin) 1 Tab Tab 1 TABLET PO DAILY Ondansetron Hcl (Zofran) 4 Mg Tab 4 MG PO Q6 PRN for Nausea, TAB Oxycodone/Acetaminophen 5MG/325MG (Percocet 5MG/325MG) Tab 1 TABLET PO Q8H PRN for Pain, TAB Oxygen (Oxygen) Gas 3 LITERS NA UD 3 liters HS and PRN Pantoprazole Sodium (Protonix) 40 Mg Tab 1 TAB PO DAILY for 30 Days, #30 TAB 5 Refills Paroxetine (Paroxetine HCl) 40 Mg Tab 40 MG PO DAILY Potassium Chloride (Potassium Chloride Er) 10 Meq Cap 10 MEQ PO BID for 90 Days, #180 CAP 1 Refill Prednisone (Prednisone) 5 Mg Tab 5 MG PO DAILY Warfarin Sod (Jantoven) 2 Mg Tab 2 MG PO UD, TAB Take 1 mg by mouth on Thursday, Thursday, Thursday. Take 2 mg by mouth on all other days. 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 Patient was recently admitted to [facility] in October 2016 for COPD exacerbation and C. diff infection. Prior to arrival outpatient labs showed INR 8, Hg 9, ESR >120. CLINICAL EVALUATOR patient had CT head which was negative and CXR which was unremarkable. Patient reports intermittent EPSTEIN for 2 weeks in left occipital region and left and right frontal region. Pt was taking Percocet and Tylenol at home with relief. She reports associated neck pain and bilateral hand tingling. She reports black stool since she had C. diff in October 2016. Diarrhea has resolved. No bright red blood per rectum. She has small amount of blood on tissue when she blows her nose. No other bleeding. She admits to fatigue, generalized weakness, increased LEONE. She admits to occasional nausea, poor appetite, bloating. She reports left maxillary molar was removed on the right side 1 week ago but no significant bleeding or pain there. No dizziness, vision change, rhinorrhea, cough, chest pain, abdominal pain, vomiting, diarrhea, worsening edema. Not taking NSAIDs. Prior EGD 08/07/15 showed tortuous esophagus, large paraesophageal hernia, gastritis. Colonoscopy in 2012- poor prep. Physical Exam (per Admitting): General Appearance: + obese, + pertinent finding (pleasant alert 81 year old female) Head: normocephalic, atraumatic Eyes: normal inspection, PERRL, EOMI ENT: hearing grossly normal, pharynx normal Neck: supple, no adenopathy, no JVD, trachea midline, + pertinent finding (C -spine nontender, no pain with rotation, no meningeal sign) Respiratory/Chest: normal breath sounds, no respiratory distress, no accessory muscle use, + pertinent finding (crackles bilateral bases) Cardiovascular: regular rate, rhythm, no murmur Abdomen/GI: non tender, soft, + pertinent finding (hyperactive bowel sounds) Extremities/Musculoskelatal: no calf tenderness, + pertinent finding (trace pretibial edema bilaterally) Neurologic/Psych: no motor/sensory deficits, alert, normal mood/affect, oriented x 3, + pertinent finding (no facial droop, no dysarthria) Skin: warm/dry, + pertinent finding (ecchymosis on the face (from dental surgery 1 week ago) and scattered on the extremities) Hospital Course 81 year old female with history of CHF, CAD, TAVR, PE on coumadin, Arthritis on Chronic Prednisone, presenting with abnormal labs. Acute Blood loss Anemia in the setting of Supratherapeutic INR on Chronic Anemia: Multifactorial- Iron Deficiency, Anemia of CKD, Chronic Inflammation - on admission, reports of melena; stool is dark heme positive on ER provider's exam Patient on Coumadin with supratherapeutic INR (8 on outpatient lab) - Hg 8.7 in ER; baseline 11's-12's -- given Vitamin K coumadin held -- INR decreased from 1.8 from > 8 -- evaluated by GI, EGD not recommended at this time repeat FOBT negative -- placed on Protonix drip, change to Protonix BID held coumadin and Aspirin -- discussed case with GI and Hematology Hg stable, no more signs of active GI bleed eventually, resumed coumadin with bridging heparin -- during admisison, noted Hg decreased to 7.7 --> given 1 unit pRBC--> Hg 9.4 remained stable ~9 after, asymptomatic no signs of active bleeding continue FeSO4, monitor Hg and Iron level as outpatient may need to discuss with Cardiology if patient has to remain on Aspirin while on coumadin HISTORY OF PE -- discussed with Hematology will need indefinite anticoagulation with coumadin and close Hg monitoring as patient had multiple episodes of unprovoked PE's while off coumadin if not tolerating, possible IVC filter - 12/16/16: INR 1.3 will need Lovenox bridge with coumadin on discharge, patient comfortable with administering Lovenox ff up with coumadin clinic closely may need to continue outpatient ff up with Care Trainer Dr. Chávez who saw the patient while admitted HEADACHE Question of temporal arteritis- noted to have extremely elevated ESR (>120) on outpatient labs; ESR [address] head negative as outpatient given prednisone 60 mg on admission day with improvement of symptoms --- TEMPORAL ARTERITIS ruled out s/p Temporal Artery Biopsy 12/15/[address] Campos Pathology: NEGATIVE for arteritis placed on empiric Prednisone 60mg daily, no headache since this was started taper Prednisone then resume 5mg po daily -- possible RIGHT SIDED FACIAL CELLULITIS, IN THE SETTING OF RECENT DENTAL EXTRACTION? CHRONIC PREDNISONE USE given empiric Clindamycin x 4days with resolution of cellulitis signs swelling, erythema, tenderness resolved Lactinex ordered finish 3 more days of Clindamycin to complete 7 days given Lactinex due to history of C diff HX SEVERE AORTIC STENOSIS, S/P TAVR 05/2016 HX CHF DUE TO VALVULAR DISEASE -No acute decompensation Echo 11/2015- Ejection Fraction = 65-70%. There is severe concentric left ventricular hypertrophy. There is severe calcific aortic valve stenosis. Mild aortic regurgitation. There is mild to moderate tricuspid regurgitation. Grade I diastolic dysfunction, (abnormal relaxation pattern). -- euvolemic -- resumed Lasix PO --Cardiology consulted CAD S/P PCI TO RCA 2011 Denies chest pain Continue Metoprolol may need to discuss with Cardiology if patient has to remain on Aspirin while on coumadin CKD STAGE III Creat is 1.6; baseline trended up over past 6 months from 1.2-> 1.5 -- stable ASTHMA Not in acute exacerbation Continue home inhalers CHRONIC RESPIRATORY FAILURE Currently saturating well on RA Continue home O2 2 liters NC HS and PRN OSTEOARTHRITIS usually on chronic prednisone 5 mg daily ANXIETY Continue home medications DVT PROPHYLAXIS Lovenox + coumadin given DISPOSITION d/c home with home health services ff up with PCP in 1 week ff up with coumadin clinic this week Total time spent on discharge = 70 minutes This includes examination of the patient, discharge planning, medication reconciliation, and communication with other providers. Discharge Instructions Discharge Instructions Date of Service December 16, 2016. Admission Reason for Admission: Elevated Inr, Gib, Temporal Arteritis Discharge Discharge Diagnosis / Problem: ELEVATED INR, ANEMIA Discharge Goals Goal(s): Diagnostic testing, Therapeutic intervention Activity Recommendations Activity Limitations: as noted below (NO HEAVY EXERTION UNTIL RE EVALUATED BY PRIMARY CARE PHYSICIAN) Lifting Limitations: until after follow-up appointment Exercise/Sports Limitations: until after follow-up appointment . Instructions / Follow-Up Instructions / Follow-Up PLEASE REVIEW YOUR NEW MEDICATION LIST AND FOLLOW INSTRUCTIONS CAREFULLY. CALL PRIMARY CARE PHYSICIAN OR RETURN TO ER IMMEDIATELY IF WITH WORSENING OF SYMPTOMS, BLOOD IN THE STOOLS, ABDOMINAL PAIN, DIARRHEA BLEEDING, INCREASING SWELLING, PAIN, DISCHARGE ON THE SURGICAL SITE ANY BLEEDING WEAKNESS, DIZZINESS, SHORTNESS OF BREATH, CHEST PAIN FEVER/CHILLS, INCREASING SWELLING ON THE FACE FOLLOW UP WITH ON THURSDAY DECEMBER 22, 2016 AT 12:45 PM. FOLLOW UP WITH ANTICOAGULATION/COUMADIN CLINIC THIS WEEK FOR BLOOD WORK (INR). CLINIC WILL CALL YOU FOR APPOINTMENT DATE. FOLLOW UP WITH REFERRAL MANAGEMENT LIAISON SCHEDULED. Call your Primary Care doctor if any of the following symptoms or problems start or get worse: * Shortness of breath or difficulty breathing * Wake up at night short of breath * Chest pain * Cough * Swelling of your hands, feet, or legs * More fatigued or tired with your normal activity * Palpitations - sudden fast heart beats WEIGHT * Weigh yourself every morning after using the bathroom. * Use the same scale. * Wear the same amount of clothing. * Write your weight down on a chart. * Call your Primary Care doctor if you gain more than 2-3 pounds in 1-2 days. MEDICATIONS * Use this discharge instruction sheet for medication instructions. * Take your medications at the time your doctor ordered. * Do not skip a dose of your medicines. * If you miss a dose of medicine, take it as soon as possible, but DO NOT DOUBLE A DOSE. * Read your medicine information when you get home. * Know all of the side effects of your medicine. If in doubt, ask your pharmacist * Call your Primary Care doctor's office if you have any side effects. * Be sure all of your doctors know what medicine and herbs you take (including cold, flu, and herbal medicine). Take the following with you to your follow-up doctor appointments: * Weight Chart * Medication List * List of questions Do not drink excessive alcohol, beer or wine. Current Hospital Diet Patient's current hospital diet: AHA Diet (Heart Healthy) Discharge Diet Recommended Diet: AHA Diet (Heart Healthy) Fluid Restriction: 1800 ml (7 cups) Procedures Procedures Performed: 12/15/16 Right Temporal Artery Biopsy Pending Studies Studies pending at discharge: yes List of pending studies: REPEAT INR THIS WEEK BY COUMADIN CLINIC Medical Emergencies . Who to Call and When: Call 911 or go to the Emergency Room if: * If at any time you feel your situation is an emergency * You have tightness or pain in your chest that does not go away with rest or Nitroglycerin * You are very short of breath even with rest . Non-Emergent Contact Non-Emergency issues call your: Primary Care Provider Call Non-Emergent contact if: you have a fever, your pain is not controlled, your pain is worsening, wound has increased drainage, wound has increased redness, wound has increased pain, you have any medication questions . . "Provider Documentation" section prepared by Jimenez Hayes. . VTE Core Measure Inpt VTE Proph given/why not?: Unfractionated heparin SQ, Warfarin (Coumadin)
[2016-12-29] MEDS ORDERED: WARF1TAB6 PO (11:48)
[2016-12-29] MEDS ORDERED: ACET325T30 PO (11:48)
[2016-12-29] MEDS ORDERED: FURO-85 PO (11:48)
[2017-01-08] MEDS ORDERED: PRT40 PO (17:55)
[2017-01-08] MEDS ORDERED: FLUC100T4 PO ×2 (17:55→18:06)
[2017-01-08] MEDS ORDERED: CRFUDL PO (17:55)
[2017-02-02] MEDS ORDERED: CMD2 PO (14:38)
[2017-02-23] MEDS ORDERED: CFT250 PO (15:30)
[2017-05-24] MEDS ORDERED: SNK OR (12:33)
[2017-05-24] MEDS ORDERED: DOCU-94 PO (12:34)
[2017-05-24] MEDS ORDERED: PRT40 PO (12:59)
[2017-05-24] MEDS ORDERED: RANI300C PO (12:59)
== END 2016-12-16 18:37 | disposition home health service (06) | DRG 988 ==
LOC: ENRESERVDT → CANRESERV → ENRESERVTM → C.EDB 17:52 → C.2T 19:07 → C.MED 12-11 20:24
PROVIDERS: ADMIT Internal Medicine; ATTEND Internal Medicine
PROC: 03BS0ZX Excision of Right Temporal Artery, Open Approach, Diagnostic (ICD-10-PCS; principal; 2016-12-15 07:15)
DX: D62 Acute posthemorrhagic anemia (principal); K92.2 Gastrointestinal hemorrhage, unspecified; I13.0 Hypertensive heart and chronic kidney disease with heart failure and stage 1 through stage 4 chronic kidney disease, or unspecified chronic kidney disease; D68.2 Hereditary deficiency of other clotting factors; L03.211 Cellulitis of face; J96.10 Chronic respiratory failure, unspecified whether with hypoxia or hypercapnia; R79.1 Abnormal coagulation profile; T45.515A Adverse effect of anticoagulants, initial encounter; R51 Headache; E87.6 Hypokalemia; I50.9 Heart failure, unspecified; D50.9 Iron deficiency anemia, unspecified; D63.1 Anemia in chronic kidney disease; R19.7 Diarrhea, unspecified; I25.10 Atherosclerotic heart disease of native coronary artery without angina pectoris; N18.3 Chronic kidney disease, stage 3 (moderate); F32.9 Major depressive disorder, single episode, unspecified; E78.5 Hyperlipidemia, unspecified; M19.90 Unspecified osteoarthritis, unspecified site; K21.9 Gastro-esophageal reflux disease without esophagitis; M81.0 Age-related osteoporosis without current pathological fracture; F41.9 Anxiety disorder, unspecified; J44.9 Chronic obstructive pulmonary disease, unspecified; J45.909 Unspecified asthma, uncomplicated; E66.9 Obesity, unspecified; Z79.899 Other long term (current) drug therapy; Z79.01 Long term (current) use of anticoagulants; Z79.82 Long term (current) use of aspirin; Z79.52 Long term (current) use of systemic steroids; Z99.81 Dependence on supplemental oxygen; Z85.44 Personal history of malignant neoplasm of other female genital organs; Z85.828 Personal history of other malignant neoplasm of skin; Z86.711 Personal history of pulmonary embolism; Z87.440 Personal history of urinary (tract) infections; Z86.19 Personal history of other infectious and parasitic diseases; Z95.2 Presence of prosthetic heart valve; Z95.5 Presence of coronary angioplasty implant and graft; Z68.28 Body mass index [BMI] 28.0-28.9, adult; Z82.49 Family history of ischemic heart disease and other diseases of the circulatory system; Z83.3 Family history of diabetes mellitus

== ENCOUNTER 2017-01-21 19:24 | Inpatient (IN) | payer OTHER, BC ==
[~2017-01-21] VITALS: Ht 152.4 cm; Wt 66.7 kg
[~2017-01-21 19:24] MED LIST changes: +ACET325T30 PO; -ASPEC81 PO; -BISA-16 PO; -CRAN1CAP6 PO; +CRFUDL PO; -DEXT30TA7 PO; -DOCU-94 PO; +FERR325T5 PO; -FERRTAB18 PO; +FLUC100T4 PO; +FURO-85 PO; -FURO20TA PO; -FURO40TA3 PO; -HYDR200T5 PO; +LCTX PO; +OXGN; -PANT40TA PO; +PRD5 PO; -PRED10TA PO; +PRT40 PO; -RBTDMUDL5 PO; -SNK PO; -VANC1CAP19 PO; +WARF1TAB6 PO; -WARF2TAB8 PO
[2017-01-21] MEDS ORDERED: PIPERACILLIN/TAZOBACTAM 4.5 GM/100ML D5W IV STA (19:36)
[2017-01-21] MEDS ORDERED: SODIUM CHLORIDE 0.9% 1000ML 500 ML IV ONE (19:36)
--- NOTE | 2017-01-21 19:54 | EMERGENCY ROOM VISIT NOTE ---
History Report prepared by Henrique: Evan Chang Under the Supervision of: Dr. Williams Arvizu M.D. First contact with patient: 19:31 Chief Complaint: CONFUSION Stated Complaint: DEHYDRATION, CONFUSSION, UTI History of Present Illness The patient is an 81 year old female who presents to the Emergency Room with worsening confusion over the past two weeks. Per the patient's son, she was unable to answer basic questions today and did not know what day it was yesterday. The patient has had a cough, and was complaining of nausea prior to arrival per son. She denies vomiting or diarrhea. The patient was admitted for a small bowel obstruction and stayed in the hospital for two weeks. She was discharged 2 weeks ago. As per son, the patient has been becoming progressively weaker since being discharged from the hospital. She has also had progressive confusion since being discharged. The patient had blood in her stools when she was in the hospital. She became anemic, and was given multiple units of blood. The son is concerned that she is anemic and dehydrated. She has been eating. The patient has not had any recent falls or head trauma. She is on Coumadin. The patient is prescribed Oxycodone. Per son, she has not had a bowel movement in four days. She does take stool softeners. The patient has a history of chronic UTIs. Source of History: patient, family (son) Onset: two weeks ago Position: other (global) Quality: other (confusion) Timing: worsening Associated Symptoms: + cough, + nausea, + weakness Review of Systems See HPI for pertinent positives & negatives. A total of 10 systems reviewed and were otherwise negative. 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 (8) CKD (chronic kidney disease) stage 3, GFR 30-59 ml/min (9) Confusion (10) Depression (11) Diverticulosis Colon (W/O Ment Of Hemorrhage) (12) Dyslipidemia (13) Elevated INR (14) Factor V deficiency (15) Gastroparesis (16) GERD (gastroesophageal reflux disease) (17) GIB (gastrointestinal bleeding) (18) Hiatal hernia (19) History of acute minda lesion (20) History of endometrial cancer (21) History of GI bleed (22) History of pulmonary embolism (23) IBS (irritable bowel syndrome) (24) Osteoporosis (25) Polyarthritis (26) Recurrent UTI (27) Temporal arteritis Surgical Problems: (1) Hx of cystoscopy (2) S/P left knee arthroscopy (3) S/P TAVR (transcatheter aortic valve replacement) (4) Status post cataract extraction (5) Status post coronary artery stent placement (6) Status post hysterectomy Family History Cancer Diabetes mellitus FH: cardiovascular disease MOTHER Gallbladder disease Hypertension Social History Smoking Status: Never Smoker Alcohol Use: none Drug Use: none Marital Status: Housing Status: lives alone Occupation Status: retired Current/Historical Medications Scheduled Ascorbic Acid (Vitamin C), 500 MG PO DAILY Calcium/Vitamin D (Os-Ismael 500 Plus D), 1 TAB PO BIDM Cholecalciferol (Vitamin D3), 1 CAP PO DAILY Ferrous Sulfate (Ferrous Sulfate), 325 MG PO BID Fluconazole (Diflucan), 100 MG PO DAILY Fluticasone Prop/Salmeterol (Advair Diskus 250/50 60 Dose), 1 PUFF INH BID Furosemide (Lasix), 40 MG PO DAILY Home O2 Therapy (Oxygen), 3 LITERS NA UD Lactobacillus Acidophilus (Lactinex), 4 TAB PO TID Magnesium Oxide (Mag-Ox), 400 MG PO DAILY Metoprolol Succinate (Metoprolol Succinate ER), 12.5 MG PO BID Mirtazapine (Remeron), 1 TAB PO HS Multiple Vitamin (Multivitamin), 1 TABLET PO DAILY Pantoprazole (Pantoprazole Sodium), 40 MG PO BID Paroxetine (Paroxetine HCl), 40 MG PO DAILY Potassium Chloride (Potassium Chloride Er), 10 MEQ PO BID Prednisone (Prednisone), 5 MG PO DAILY Sucralfate (Sucralfate), 1 GM PO QID Warfarin Sod (Jantoven), 1 MG PO DAILY Scheduled PRN Acetaminophen (Acetaminophen), 650 MG PO for Pain Albuterol Sulf (Proventil 0.083% 2.5MG/3ML), 2.5 MG INH QID PRN for SOB/Wheezing Calcium Carbonate (Tums), 500 MG PO BID PRN for Heartburn Lorazepam (Lorazepam), 0.5 MG PO HS PRN for Insomnia Ondansetron Hcl (Zofran), 4 MG PO Q6 PRN for Nausea Oxycodone/Acetaminophen 5MG/325MG (Percocet 5MG/325MG), 1 TABLET PO Q8H PRN for Pain Allergies Coded Allergies: Cefdinir (Unverified Allergy, Unknown, RASH, 12/29/16) Clonazepam (Unverified Allergy, Unknown, ., 12/29/16) Levofloxacin (Verified Allergy, Unknown, unknown, 12/29/16) Sulfasalazine (Unverified Allergy, Unknown, ., 12/29/16) Metoclopramide (Verified Adverse Reaction, Intermediate, TREMORS, 12/29/16) Physical Exam Vital Signs Date Time Temp Pulse Resp B/P (MAP) Pulse Ox O2 Delivery O2 Flow Rate FiO2 01/21/17 22:30 113/66 01/21/17 22:11 96 22 94 01/21/17 22:06 98 21 96 01/21/17 22:01 102/42 01/21/17 21:36 98 23 96 01/21/17 21:31 106/60 01/21/17 21:24 99 21 93 01/21/17 21:22 98 22 118/81 95 Room Air 01/21/17 21:20 99 01/21/17 21:19 118/81 01/21/17 20:09 106 27 123/66 90 Room Air 01/21/17 20:08 90 Room Air 01/21/17 19:27 36.7 108 18 111/61 95 Room Air Physical Exam GENERAL: Patient is in no acute distress. HEENT: No acute trauma, normocephalic atraumatic, mucous membranes moist, no nasal congestion, no scleral icterus. NECK: No stridor, no adenopathy, no meningismus, trachea is midline. LUNGS: Crackles at both bases more so on the left, breath sounds are equal, no wheezing. HEART: Mildly tachycardic with a subtle murmur, rhythm is regular. ABDOMEN: Soft, nontender, bowel sounds positive, no hernias, no peritonitis. EXTREMITIES: No cyanosis or edema, full range of motion of all the joints without pain or difficulty, no signs for acute trauma. NEUROLOGIC: Awake, alert, moving all extremities, answers questions appropriately. SKIN: No rash, no jaundice, no diaphoresis. Medical Decision & Procedures ER Provider Diagnostic Interpretation: X-ray results as stated below per interpretation by me and the radiologist: Radiology results as stated below per my review and radiologist interpretation: CHEST ONE VIEW PORTABLE CLINICAL HISTORY: Sepsis COMPARISON STUDY: 01/01/2017 FINDINGS: The heart is mildly enlarged. There is aortic tortuosity/ectasia. There is a suspected hiatal hernia. There is no lobar consolidation. There is mild chronic interstitial thickening.[ IMPRESSION: 1. Large hiatal hernia 2. Stable interstitial thickening 3. No evidence of acute parenchymal consolidation 4. Aortic tortuosity/ectasia Electronically signed by: Austin Harman M.D. 01/21/2017 8:05 PM Dictated Date/Time: 01/21/2017 8:[address] HEAD WITHOUT CONTRAST (CT) CLINICAL HISTORY: Change in mental status. Confusion. COMPARISON STUDY: 10/18/2015, MRI the brain dated 12/12/2016 TECHNIQUE: Axial CT of the brain is performed from the vertex to the skull base. IV contrast was not administered for this examination. CT DOSE: 691.05 mGy.cm FINDINGS: No intra or extra-axial mass lesions are visualized. There is no CT evidence of acute cortical infarction. There is no evidence of midline shift. There is no acute hemorrhage. No calvarial fractures are visualized. There are patchy white matter hypodensities likely on a small vessel basis. There is no evidence of pathologic ventricular dilatation. There are inflammatory changes within the sphenoid sinus. IMPRESSION: No acute intracranial findings Electronically signed by: Austin Harman M.D. 01/21/2017 8:39 PM Dictated Date/Time: 01/21/2017 8:38 PM Laboratory Results Test 01/21/17 20:50 01/21/17 21:19 01/21/17 22:13 Immature Granulocyte % (Auto) 0.3 % White Blood Count 14.46 K/uL (4.8-10.8) Red Blood Count 3.18 M/uL (4.2-5.4) Hemoglobin 9.4 g/dL (12.0-16.0) Hematocrit 30.6 % (37-47) Mean Corpuscular Volume 96.2 fL (80-100) Mean Corpuscular Hemoglobin 29.6 pg (25-34) Mean Corpuscular Hemoglobin Concent 30.7 g/dl (32-36) Platelet Count 344 K/uL (130-400) Mean Platelet Volume 9.4 fL (7.4-10.4) Neutrophils (%) (Auto) 68.4 % Lymphocytes (%) (Auto) 16.2 % Monocytes (%) (Auto) 14.2 % Eosinophils (%) (Auto) 0.6 % Basophils (%) (Auto) 0.3 % Neutrophils # (Auto) 9.89 K/uL (1.4-6.5) Lymphocytes # (Auto) 2.34 K/uL (1.2-3.4) Monocytes # (Auto) 2.05 K/uL (0.11-0.59) Eosinophils # (Auto) 0.09 K/uL (0-0.5) Basophils # (Auto) 0.04 K/uL (0-0.2) Immature Granulocyte # (Auto) 0.05 K/uL (0.00-0.02) Activated Partial Thromboplast Time 39.6 SECONDS (21.0-31.0) Partial Thromboplastin Ratio 1.5 Magnesium Level 1.9 mg/dl (1.8-2.4) Total Bilirubin 0.2 mg/dl (0.2-1) Aspartate Amino Transf (AST/SGOT) 17 U/L (15-37) Alanine Aminotransferase (ALT/SGPT) 16 U/L (12-78) Alkaline Phosphatase 76 U/L (45-117) Total Protein 5.9 gm/dl (6.4-8.2) Albumin 2.2 gm/dl (3.4-5.0) Globulin 3.7 gm/dl (2.5-4.0) Albumin/Globulin Ratio 0.6 (0.9-2) Urine Color YELLOW Urine Appearance TURBID (CLEAR) Urine pH 6.5 (4.5-7.5) Urine Specific Bourg 1.014 (1.000-1.030) Urine Protein NEG (NEG) Urine Glucose (UA) NEG (NEG) Urine Ketones NEG (NEG) Urine Occult Blood 1+ (NEG) Urine Nitrite NEG (NEG) Urine Bilirubin NEG (NEG) Urine Urobilinogen NEG (NEG) Urine Leukocyte Esterase LARGE (NEG) Urine WBC (Auto) >30 /hpf (0-5) Urine RBC (Auto) 5-10 /hpf (0-4) Urine Hyaline Casts (Auto) 1-5 /lpf (0-5) Urine Epithelial Cells (Auto) 0-5 /lpf (0-5) Urine Bacteria (Auto) 1+ (NEG) Bedside Lactic Acid Venous 1.47 mmol/L (0.90-1.70) Laboratory results reviewed by me. Medications Administered Medications (Trade) Dose Ordered Sig/Rosi Route Start Time Stop Time Status Last Admin Dose Admin Sodium Chloride 500 ml @ 999 mls/hr Q31M ONCE IV 01/21/17 19:36 01/21/17 20:06 DC 01/21/17 21:23 999 MLS/HR Piperacillin Sod/ Tazobactam Sod (Zosyn Iv) 4.5 gm ONE STAT IV 01/21/17 19:36 01/21/17 19:40 DC 01/21/17 21:24 4.5 GM Sodium Chloride 1,000 ml @ 125 mls/hr Q8H STAT IV 01/21/17 21:32 01/22/17 02:32 DC 01/21/17 21:55 125 MLS/HR Ceftriaxone Sodium (Rocephin Inj) 1 gm NOW STAT IV 01/21/17 22:08 01/21/17 22:10 DC 01/21/17 22:23 1 GM ECG Indication: altered mental status Rate (beats per minute): 106 Rhythm: sinus tachycardia Findings: no acute ischemic change, no ectopy, other (LVH is present) ED Course 1932: The patient was evaluated in room B10. A complete history and physical exam was performed. Past medical records were reviewed. The patient was discharged from the hospital on January 08 after having a small bowel obstruction. 1935: Zosyn 4.5 gm IV, NSS 500 ml @ 999 mls/hr. 2131: NSS 1000 ml @ 125 mls/hr. 2207: Rocephin 1 gm IV. 2211: The patient is doing fine. I updated them. 2216: Discussed the case with Dr. Rosenbaum, [facility] Hospitalist. The patient will be evaluated. Medical Decision Differential diagnosis includes dehydration, sepsis, UTI, pneumonia, electrolyte imbalance, intracranial bleeding, stroke, debilitation. Medication Reconciliation: I attest that I have personally reviewed the patient' s current medication list. Blood Pressure Screening: Patient was found to have normal blood pressure on screening and does not require follow-up. There is a mild leukocytosis, this could be consistent with infection. The patient is anemic but her number is actually improved from her recent testing. There is some mild renal insufficiency/failure by renal panel testing. No hepatitis. Urinalysis does suggest infection, urine culture is pending. Blood cultures are pending. Chest x-ray does not show pneumonia or CHF. Brain CT shows no acute bleed or mass effect. EKG shows a sinus tachycardia, no acute ischemia. Cardiac enzyme testing 1 is mildly elevated, this could be consistent with cardiac strain or injury. Lactic acid level is not elevated making severe sepsis less likely. INR is elevated consistent with her Coumadin use. The patient received IV saline, IV Zofran. She was given IV Zosyn and then IV ceftriaxone as antibiotic coverage. I think the patient's change in mental status is secondary to some dehydration as well as the UTI. Admission/observation is warranted. I spoke to the patient and her son. I spoke to case management. The on-call hospitalist was consulted. Consults Time Called: 2209 Consulting Physician: Brody Thomas Hospitalist Returned Call: [phone] The patient will be evaluated. Impression Primary Impression: Change in mental status Additional Impressions: Dehydration UTI (urinary tract infection) Weakness Scribe Attestation The scribe's documentation has been prepared under my direction and personally reviewed by me in its entirety. I confirm that the note above accurately reflects all work, treatment, procedures, and medical decision making performed by me. Departure Information Dispostion Being Evaluated By Hospitalist Referrals Myrna Inman M.D. (PCP) Patient Instructions [facility] Problem Qualifiers Primary Impression: Change in mental status
[2017-01-21] MEDS ORDERED: ALUM-30 PO (20:05)
--- NOTE | 2017-01-21 20:06 | DIAGNOSTIC IMAGING REPORT ---
CHEST ONE VIEW PORTABLE CLINICAL HISTORY: Sepsis COMPARISON STUDY: 01/01/2017 FINDINGS: The heart is mildly enlarged. There is aortic tortuosity/ectasia. There is a suspected hiatal hernia. There is no lobar consolidation. There is mild chronic interstitial thickening.[ IMPRESSION: 1. Large hiatal hernia 2. Stable interstitial thickening 3. No evidence of acute parenchymal consolidation 4. Aortic tortuosity/ectasia Electronically signed by: Austin Harman M.D. 01/21/2017 8:05 PM Dictated Date/Time: 01/21/2017 8:03 PM
--- NOTE | 2017-01-21 20:40 | DIAGNOSTIC IMAGING REPORT ---
CT HEAD WITHOUT CONTRAST (CT) CLINICAL HISTORY: Change in mental status. Confusion. COMPARISON STUDY: 10/18/2015, MRI the brain dated 12/12/2016 TECHNIQUE: Axial CT of the brain is performed from the vertex to the skull base. IV contrast was not administered for this examination. CT DOSE: 691.05 mGy.cm FINDINGS: No intra or extra-axial mass lesions are visualized. There is no CT evidence of acute cortical infarction. There is no evidence of midline shift. There is no acute hemorrhage. No calvarial fractures are visualized. There are patchy white matter hypodensities likely on a small vessel basis. There is no evidence of pathologic ventricular dilatation. There are inflammatory changes within the sphenoid sinus. IMPRESSION: No acute intracranial findings Electronically signed by: Austin Harman M.D. 01/21/2017 8:39 PM Dictated Date/Time: 01/21/2017 8:38 PM
[2017-01-21 21:11] LABS: BASO % 0.3 %; BASO ABS # 0.04 K/uL (0-0.2); COMPLETE YES; EOS % 0.6 %; HEMATOCRIT 30.6 % (37-47); IG% 0.3 %; LYMPH % 16.2 %; LYMPH ABS # 2.34 K/uL (1.2-3.4); MEAN CELL VOLUME 96.2 fL (80-100); MEAN CORPUSCULAR HEMOGLOBIN 29.6 pg (25-34); MEAN CORPUSCULAR HGB CONC 30.7 g/dl (32-36); MEAN PLATELET VOLUME 9.4 fL (7.4-10.4); MONO % 14.2 %; NEUT % 68.4 %; PLATELET COUNT 344 K/uL (130-400); RED BLOOD COUNT 3.18 M/uL (4.2-5.4); WHITE BLOOD COUNT 14.46 K/uL (4.8-10.8)
[2017-01-21 21:27] LABS: INR 2.8 (0.9-1.1); PARTIAL THROMBOPLASTIN RATIO 1.5; PROTHROMBIN TIME (PATIENT) 31.1 SECONDS (9.0-12.0)
[2017-01-21 21:29] LABS: BUN/CREATININE RATIO 34.6 (10-20); CREATININE 1.7 mg/dl (0.60-1.20); MAGNESIUM 1.9 mg/dl (1.8-2.4); POTASSIUM 4.7 mmol/L (3.5-5.1)
[2017-01-21] MEDS ORDERED: SODIUM CHLORIDE 0.9% 1000ML 1,000 ML IV STA (21:32)
[2017-01-21 21:42] LABS: ALB/GLOB RATIO 0.6 (0.9-2)
[2017-01-21 21:44] LABS: URINE APPEARANCE TURBID (CLEAR); URINE BILIRUBIN NEG (NEG); URINE COLOR YELLOW; URINE EPITHELIAL CELL AUTO 0-5 /lpf (0-5); URINE NITRITE NEG (NEG); URINE PH 6.5 (4.5-7.5); URINE SPECIFIC GRAVITY 1.014 (1.000-1.030); UROBILINOGEN NEG (NEG); ZZURINE CULT IF INDIC CATH YES
[2017-01-21 21:54] LABS: CALCIUM 9.6 mg/dl (8.5-10.1)
[2017-01-21 21:55] LABS: MANUAL MICROSCOPIC REQUIRED? NO; REVIEW REQ? NO
[2017-01-21] MEDS ORDERED: CEFTRIAXONE SOD INJ 1 GM ADDVIAL IV STA (22:08)
[2017-01-21] MEDS ORDERED: ONDANSETRON INJ 2 MG/ML 2 ML VIAL IV PRN (23:15)
[2017-01-21] MEDS ORDERED: CALCIUM CARBONATE 500 MG CHEWABLE PO PRN (23:45)
[2017-01-21] MEDS ORDERED: ONDANSETRON 4 MG TAB PO PRN (23:45)
[2017-01-22] VITALS (9 sets, daily range): BP systolic 97–143; BP diastolic 47–90; PULSE 82–104; TEMP 36.5–37; O2SAT 94–97; Ht 152.4 cm; Wt 66.7 kg
--- NOTE | 2017-01-22 01:20 | History and Physical ---
History & Physical Date & Time of Service: Jan 21, 2017 at 23:18 Chief Complaint: Dehydration, Confussion, Uti Primary Care Physician: Myrna Inman M.D. History of Present Illness Source: patient, clinic records, hospital records 81 year old female with PMH of CKD stage 3, anemia, thromboembolism on [facility] anticoagulant presents to the Emergency Room with c/o confusion. As per son, her confusion seems to get worst. She was unable to answer basic questions. Pt said that she was recently discharge on 01/08 from [facility] for bowel obstruction; and before that she was admitted for UTI. Pt said that whenever she has UTI, they told her she also gets confused. She said that her urine looks cloudy, denies any urinary frequency and dysuria. As per son, patient has been very weak since last admission. She also has been having nausea. denies any diarrhea and vomiting and abdominal pain Her last BM was 4 days ago. She is on oxycodone and she does take stool softener. She was started on IVF and empirical abx in the ER.Currently patient said that she is feeling little better. Denies any chest pain, palpitation, fever, chills and dizziness. Past Medical/Surgical History Medical Problems: (1) Anemia Status: Chronic (2) Angiectasia Permanent Comment: on colonoscopy 05/2013 Status: Chronic (3) Aortic stenosis Permanent Comment: moderately severe by echo December 2013 Status: Chronic (4) Basal cell carcinoma Permanent Comment: s/p MOHS surgery Status: Resolved (5) Benign hypertension Status: Chronic (6) CAD (coronary artery disease) Permanent Comment: s/p RCA stent 2011 Status: Chronic (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 Status: Chronic (8) CKD (chronic kidney disease) stage 3, GFR 30-59 ml/min Status: Chronic (9) Depression Status: Chronic (10) Diverticulosis Colon (W/O Ment Of Hemorrhage) Status: Chronic (11) Dyslipidemia Status: Chronic (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, 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 Status: Chronic (13) Gastroparesis Status: Chronic (14) GERD (gastroesophageal reflux disease) Status: Chronic (15) Hiatal hernia Status: Chronic (16) History of acute minda lesion Permanent Comment: 06/2013 Status: Chronic (17) History of endometrial cancer Permanent Comment: s/p radiation and total hysterectomy Status: Chronic (18) History of GI bleed Status: Chronic (19) History of pulmonary embolism Permanent Comment: x 2 Status: Chronic (20) IBS (irritable bowel syndrome) Status: Chronic (21) Osteoporosis Status: Chronic (22) Polyarthritis Permanent Comment: on chronic prednisone Status: Chronic (23) Recurrent UTI Status: Chronic Surgical Problems: (1) Hx of cystoscopy Status: Chronic (2) S/P left knee arthroscopy Status: Chronic (3) S/P TAVR (transcatheter aortic valve replacement) Permanent Comment: due to severe aortic stenosis Status: Chronic (4) Status post cataract extraction Status: Chronic (5) Status post coronary artery stent placement Status: Chronic (6) Status post hysterectomy Status: Chronic Family History Cancer Diabetes mellitus FH: cardiovascular disease MOTHER Gallbladder disease Hypertension Social History Smoking Status: Current Every Day Smoker Alcohol Use: none Drug Use: none Marital Status: Occupational Status: retired Immunizations History of Influenza Vaccine: Yes Influenza Vaccine Date: Apr 18, 2016 History of Tetanus Vaccine?: Yes Tetanus Immunization Date: Nov 27, 2008 History of Pneumococcal: Yes Pneumococcal Date: Apr 21, 2016 History of Hepatitis B Vaccine: Yes Multi-Drug Resistant Organisms History of MDRO: No Allergies Coded Allergies: Cefdinir (Unverified Allergy, Unknown, RASH, 12/29/16) Clonazepam (Unverified Allergy, Unknown, ., 12/29/16) Levofloxacin (Verified Allergy, Unknown, unknown, 12/29/16) Sulfasalazine (Unverified Allergy, Unknown, ., 12/29/16) Metoclopramide (Verified Adverse Reaction, Intermediate, TREMORS, 12/29/16) Home Medications Scheduled Ascorbic Acid (Vitamin C), 500 MG PO DAILY Calcium/Vitamin D (Os-Ismael 500 Plus D), 1 TAB PO BIDM Cholecalciferol (Vitamin D3), 1 CAP PO DAILY Ferrous Sulfate (Ferrous Sulfate), 325 MG PO BID Fluconazole (Diflucan), 100 MG PO DAILY Fluticasone Prop/Salmeterol (Advair Diskus 250/50 60 Dose), 1 PUFF INH BID Furosemide (Lasix), 40 MG PO DAILY Home O2 Therapy (Oxygen), 3 LITERS NA UD Lactobacillus Acidophilus (Lactinex), 4 TAB PO TID Magnesium Oxide (Mag-Ox), 400 MG PO DAILY Metoprolol Succinate (Metoprolol Succinate ER), 12.5 MG PO BID Mirtazapine (Remeron), 1 TAB PO HS Multiple Vitamin (Multivitamin), 1 TABLET PO DAILY Pantoprazole (Pantoprazole Sodium), 40 MG PO BID Paroxetine (Paroxetine HCl), 40 MG PO DAILY Potassium Chloride (Potassium Chloride Er), 10 MEQ PO BID Prednisone (Prednisone), 5 MG PO DAILY Sucralfate (Sucralfate), 1 GM PO QID Warfarin Sod (Jantoven), 1 MG PO DAILY Scheduled PRN Acetaminophen (Acetaminophen), 650 MG PO for Pain Albuterol Sulf (Proventil 0.083% 2.5MG/3ML), 2.5 MG INH QID PRN for SOB/Wheezing Calcium Carbonate (Tums), 500 MG PO BID PRN for Heartburn Lorazepam (Lorazepam), 0.5 MG PO HS PRN for Insomnia Ondansetron Hcl (Zofran), 4 MG PO Q6 PRN for Nausea Oxycodone/Acetaminophen 5MG/325MG (Percocet 5MG/325MG), 1 TABLET PO Q8H PRN for Pain Review of Systems Constitutional: + weakness, + fatigue, No fever, No chills Eyes: No eye pain, No discharge ENT: No hearing loss, No nasal symptoms, No sore throat Respiratory: + dyspnea on exertion, No cough, No sputum, No wheezing Cardiovascular: No chest pain, No orthopnea, No claudication, No palpitations Abdomen: + nausea, + constipation, No pain, No vomiting Musculoskeletal: + joint pain, + muscle pain Genitourinary - Female: No dysuria, No urinary frequency, No urinary urgency Neurologic: No numbness/tingling, No vertigo Psychiatric: No substance abuse Endocrine: + fatigue, No excessive thirst Hematologic / Lymphatic: No night sweats Integumentary: No rash, No itch Physical Exam Vital Signs Date Time Temp Pulse Resp B/P (MAP) Pulse Ox O2 Delivery O2 Flow Rate FiO2 01/21/17 22:30 113/66 01/21/17 22:11 96 22 94 01/21/17 22:06 98 21 96 01/21/17 22:01 102/42 01/21/17 21:36 98 23 96 01/21/17 21:31 106/60 01/21/17 21:24 99 21 93 01/21/17 21:22 98 22 118/81 95 Room Air 01/21/17 21:20 99 01/21/17 21:19 118/81 01/21/17 20:09 106 27 123/66 90 Room Air 01/21/17 20:08 90 Room Air 01/21/17 19:27 36.7 108 18 111/61 95 Room Air General Appearance: WD/WN, no apparent distress Head: normocephalic, atraumatic Eyes: normal inspection, PERRL ENT: normal ENT inspection Neck: no JVD Respiratory/Chest: normal breath sounds, no respiratory distress, no accessory muscle use Cardiovascular: no JVD, + tachycardia Abdomen/GI: normal bowel sounds, non tender Back: normal inspection, no CVA tenderness Extremities/Musculoskelatal: no calf tenderness, + pertinent finding (+edema in b/l LE) Neurologic/Psych: alert, normal mood/affect, oriented x 3 Skin: warm/dry, no rash Diagnostics Laboratory Results Results Past 24 Hours Test 01/21/17 20:50 01/21/17 21:19 01/21/17 22:13 Range/Units White Blood Count 14.46 4.8-10.8 K/uL Red Blood Count 3.18 4.2-5.4 M/uL Hemoglobin 9.4 12.0-16.0 g/dL Hematocrit 30.6 37-47 % Mean Corpuscular Volume 96.2 80-100 fL Mean Corpuscular Hemoglobin 29.6 25-34 pg Mean Corpuscular Hemoglobin Concent 30.7 32-36 g/dl Platelet Count 344 130-400 K/uL Mean Platelet Volume 9.4 7.4-10.4 fL Neutrophils (%) (Auto) 68.4 % Lymphocytes (%) (Auto) 16.2 % Monocytes (%) (Auto) 14.2 % Eosinophils (%) (Auto) 0.6 % Basophils (%) (Auto) 0.3 % Neutrophils # (Auto) 9.89 1.4-6.5 K/uL Lymphocytes # (Auto) 2.34 1.2-3.4 K/uL Monocytes # (Auto) 2.05 0.11-0.59 K/uL Eosinophils # (Auto) 0.09 0-0.5 K/uL Basophils # (Auto) 0.04 0-0.2 K/uL RDW Standard Deviation 53.6 36.4-46.3 fL RDW Coefficient of Variation 15.1 11.5-14.5 % Immature Granulocyte % (Auto) 0.3 % Immature Granulocyte # (Auto) 0.05 0.00-0.02 K/uL Prothrombin Time 31.1 9.0-12.0 SECONDS Prothromb Time International Ratio 2.8 0.9-1.1 Activated Partial Thromboplast Time 39.6 21.0-31.0 SECONDS Partial Thromboplastin Ratio 1.5 Sodium Level 138 136-145 mmol/L Potassium Level 4.7 3.5-5.1 mmol/L Chloride Level 102 98-107 mmol/L Carbon Dioxide Level 27 21-32 mmol/L Anion Gap 9.0 3-11 mmol/L Blood Urea Nitrogen 59 7-18 mg/dl Creatinine 1.70 0.60-1.20 mg/dl Est Creatinine Clear Calc Drug Dose 22.1 ml/min Estimated GFR () 31.8 Estimated GFR (Non- 27.4 BUN/Creatinine Ratio 34.6 10-20 Random Glucose 109 70-99 mg/dl Calcium Level 9.6 8.5-10.1 mg/dl Magnesium Level 1.9 1.8-2.4 mg/dl Total Bilirubin 0.2 0.2-1 mg/dl Aspartate Amino Transf (AST/SGOT) 17 15-37 U/L Alanine Aminotransferase (ALT/SGPT) 16 12-78 U/L Alkaline Phosphatase 76 45-117 U/L Troponin I 0.082 0-0.045 ng/ml Total Protein 5.9 6.4-8.2 gm/dl Albumin 2.2 3.4-5.0 gm/dl Globulin 3.7 2.5-4.0 gm/dl Albumin/Globulin Ratio 0.6 0.9-2 Urine Color YELLOW Urine Appearance TURBID CLEAR Urine pH 6.5 4.5-7.5 Urine Specific [place] 1.014 1.000-1.030 Urine Protein NEG NEG Urine Glucose (UA) NEG NEG Urine Ketones NEG NEG Urine Occult Blood 1+ NEG Urine Nitrite NEG NEG Urine Bilirubin NEG NEG Urine Urobilinogen NEG NEG Urine Leukocyte Esterase LARGE NEG Urine WBC (Auto) >30 0-5 /hpf Urine RBC (Auto) 5-10 0-4 /hpf Urine Hyaline Casts (Auto) 1-5 0-5 /lpf Urine Epithelial Cells (Auto) 0-5 0-5 /lpf Urine Bacteria (Auto) 1+ NEG Bedside Lactic Acid Venous 1.47 0.90-1.70 mmol/L Microbiology Results 01/21/17 Blood Culture, Received Pending 01/21/17 Blood Culture, Received Pending 01/21/17 Urine Culture, Received Pending Diagnostic Radiology CT HEAD WITHOUT CONTRAST (CT) CLINICAL HISTORY: Change in mental status. Confusion. COMPARISON STUDY: 10/18/2015, MRI the brain dated 12/12/2016 TECHNIQUE: Axial CT of the brain is performed from the vertex to the skull base. IV contrast was not administered for this examination. CT DOSE: 691.05 mGy.cm FINDINGS: No intra or extra-axial mass lesions are visualized. There is no CT evidence of acute cortical infarction. There is no evidence of midline shift. There is no acute hemorrhage. No calvarial fractures are visualized. There are patchy white matter hypodensities likely on a small vessel basis. There is no evidence of pathologic ventricular dilatation. There are inflammatory changes within the sphenoid sinus. IMPRESSION: No acute intracranial findings Electronically signed by: Austin Harman M.D. 01/21/2017 8:39 PM CHEST ONE VIEW PORTABLE CLINICAL HISTORY: Sepsis COMPARISON STUDY: 01/01/2017 FINDINGS: The heart is mildly enlarged. There is aortic tortuosity/ectasia. There is a suspected hiatal hernia. There is no lobar consolidation. There is mild chronic interstitial thickening.[ IMPRESSION: 1. Large hiatal hernia 2. Stable interstitial thickening 3. No evidence of acute parenchymal consolidation 4. Aortic tortuosity/ectasia Electronically signed by: Austin Harman M.D. 01/21/2017 8:05 PM Dictated Date/Time: 01/21/2017 8:03 PM Impression Assessment and Plan CONFUSION Possible related to UTI Afebrile, Elevated WBC CT head negative for any acute abnormality Received IVF and empirical abx with Zosyn and Rocephin Blood cx and urine cx pending conrinue monitor RECURRENT UTI UA positive for leukocytes and bacteria Received zosyn and rocephin urine and blood cx pending will continue IV rocephin Monitor CBC ELEVATED TROPONIN possible related to dehydration and CKD denies any chest pain EKG did not show any significant ischemic changes will monitor serial CM Continue monitor in telemetry ANEMIA Hbg 9.4 Stable Will continue monitor CBC HX SEVERE AORTIC STENOSIS, S/P 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 There is severe concentric left ventricular hypertrophy. There is severe calcific aortic valve stenosis. Mild aortic regurgitation. There is mild to moderate tricuspid regurgitation. Grade I diastolic dysfunction, (abnormal relaxation pattern). Clinically hypovolemic CXR- no evidence of acute failure Will hold lasix for now CAD S/P PCI TO RCA 2011 Denies chest pain Aspirin was discontinue in the last admission due to GIB/ anemia Continue beta hayden H/O RECURRENT PE continue Coumadin INR is therapeutic CKD STAGE III Creat is 1.7 on admission baseline trended up over past 6 months from 1.2-> 1.5 Hold lasix for now Monitor renal function ASTHMA Not in acute exacerbation Continue home inhalers CHRONIC RESPIRATORY FAILURE Currently saturating well on RA Continue home O2 2 liters NC HS and PRN OSTEOARTHRITIS On chronic prednisone 5 mg daily ANXIETY Continue home medications DVT PROPHYLAXIS On coumdadin INR 2.8 (therapeutic) CODE STATUS FULL CODE NO MECH VENTILATION as per patient DISPOSITION Lives with Follows with Dr. Inman for primary care Level of Care Telemetry Resuscitation Status FULL NO MECH VENTILATION VTE Prophylaxis VTE Risk Assessment Done? Y/N: Yes Risk Level: Moderate Given or contraindicated: Warfarin (Coumadin)
[2017-01-22] MEDS ORDERED: ALBUT/IPRATROP 3MG/0.5MG NEB 3 ML VIAL INH PRN (01:30)
[2017-01-22] MEDS: CALCIUM 600MG + VIT D 400 IU TAB PO SCH ×2 (07:54→16:48)
[2017-01-22] MEDS: OXYCODONE/ACETAMINOPHEN 5-325 TAB PO PRN ×2 (07:59→20:33)
[2017-01-22] MEDS: FLUTICASONE/SALMETEROL 250/50 (ADVAIR) 14 PUFF/1 INHALER INH SCH ×2 (08:00→20:34)
[2017-01-22] MEDS: FLUCONAZOLE 100 MG TAB PO SCH (08:01)
[2017-01-22] MEDS: SUCRALFATE 1 GM/10 ML UDC PO SCH ×4 (08:01→20:34)
[2017-01-22] MEDS: DOCUSATE SODIUM/SENNA 50/8.6MG TAB PO SCH (08:02)
[2017-01-22] MEDS: LACTOBACILLUS ACIDOPHILUS (FLORANEX) TAB PO SCH ×3 (08:02→20:35)
[2017-01-22] MEDS: PAROXETINE 20 MG TAB PO SCH (08:03)
[2017-01-22] MEDS: MULTIVITAMIN TAB PO SCH (08:03)
[2017-01-22] MEDS: MAGNESIUM OXIDE 400 MG TAB PO SCH (08:03)
[2017-01-22] MEDS: METOPROLOL SUCC 25MG EXT REL TAB PO SCH ×2 (08:04→20:36)
[2017-01-22] MEDS: PANTOprazole SOD 40 MG TAB PO SCH ×2 (08:04→20:37)
[2017-01-22] MEDS: CHOLECALCIFEROL 1000 INTER.UNIT TAB PO SCH (08:04)
[2017-01-22] MEDS: FERROUS SULFATE 325 MG TAB PO SCH ×2 (08:05→20:34)
[2017-01-22] MEDS: ASCORBIC ACID 500 MG TAB PO SCH (08:05)
[2017-01-22 08:18] LABS: HEMATOCRIT 31.7 % (37-47); MEAN CELL VOLUME 96.1 fL (80-100); MEAN CORPUSCULAR HGB CONC 31.2 g/dl (32-36); MEAN PLATELET VOLUME 9.7 fL (7.4-10.4); PLATELET COUNT 341 K/uL (130-400); WHITE BLOOD COUNT 15.03 K/uL (4.8-10.8)
[2017-01-22 08:28] LABS: INR 2.2 (0.9-1.1); PROTHROMBIN TIME (PATIENT) 24.6 SECONDS (9.0-12.0)
[2017-01-22 08:52] LABS: BUN/CREATININE RATIO 32.9 (10-20); CREATININE 1.6 mg/dl (0.60-1.20); POTASSIUM 4.2 mmol/L (3.5-5.1)
[2017-01-22 09:06] LABS: CALCIUM 10.3 mg/dl (8.5-10.1)
[2017-01-22] MEDS: SODIUM CHLORIDE 0.9% 1000ML 1,000 ML IV SCH (11:32)
[2017-01-22] MEDS: WARFARIN SOD 1 MG TAB PO SCH (15:58)
--- NOTE | 2017-01-22 18:08 | Progress Note ---
Internal Med Progress Note Date of Service: Jan 22, 2017. Provider Documentation: SUBJECTIVE: feeling better than yesterday feeling weak and tired was confused at home and was having temp alert and oriented currently afebrile now OBJECTIVE: Vital Signs-as noted below Exam: General-alert and oriented. Not in distress. Weak ENT-normal hearing Neck-no neck masses Lungs-cta b/l no wheezing or crackles Heart-s1 and s2 heard regular no murmurs Abdomen-soft bowel sounds present nontender no distension Extremities- no erythema Neuro-alert and oriented moves extremities Lab data as noted below. ASSESSMENT & PLAN: CONFUSION Metabolic encephalopathy mostly from UTI on Rocephin gentle fluids improving await cx RECURRENT UTI UA positive for leukocytes and bacteria Received zosyn and Rocephin in Er cx pending continue Rocephin now ELEVATED TROPONIN possible related to dehydration and CKD asymptomatic ekg unremarkable trending down ANEMIA Hbg 9.4 Stable Will continue monitor CBC HX SEVERE AORTIC STENOSIS, S/P 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 There is severe concentric left ventricular hypertrophy. There is severe calcific aortic valve stenosis. Mild aortic regurgitation. There is mild to moderate tricuspid regurgitation. Grade I diastolic dysfunction, (abnormal relaxation pattern). Clinically hypovolemic CXR- no evidence of acute failure holding lasix on gentle fluids will monitor for volume overload CAD S/P PCI TO RCA 2011 Denies chest pain Aspirin was discontinue in the last admission due to GIB/ anemia To continue beta hayden\ stable H/O RECURRENT PE continue Coumadin INR is 2.2 CKD STAGE III Creat is 1.7 on admission baseline trended up over past 6 months from 1.2-> 1.5 Holding lasix for now cr 1.6 today will f/u labs ASTHMA Not in acute exacerbation Continue home inhalers CHRONIC RESPIRATORY FAILURE stable Continue home O2 2 liters NC HS and PRN OSTEOARTHRITIS On chronic prednisone 5 mg daily ANXIETY Continue home medications DVT PROPHYLAXIS On coumdadin INR 2.2 (therapeutic) CODE STATUS FULL CODE NO MECH VENTILATION as per h and p DISPOSITION Monitor in tele pt/ot prior to discharge Lives with Follows with Dr. Inman for primary care Vital Signs: Date Time Temp Pulse Resp B/P (MAP) Pulse Ox O2 Delivery O2 Flow Rate FiO2 01/22/17 16:00 97 Room Air 01/22/17 15:41 36.5 103 20 131/76 (94) 97 Room Air 01/22/17 11:52 36.9 95 18 120/49 (72) 96 01/22/17 08:19 37.0 104 18 112/90 (97) 96 01/22/17 08:00 96 Room Air 01/22/17 04:00 Room Air 01/22/17 03:56 37.0 97 22 142/76 (98) 96 Room Air 01/22/17 00:54 36.9 98 20 143/81 94 Room Air 01/21/17 23:55 93 18 112/54 94 01/21/17 22:30 113/66 01/21/17 22:11 96 22 94 01/21/17 22:06 98 21 96 01/21/17 22:01 102/42 01/21/17 21:36 98 23 96 01/21/17 21:31 106/60 01/21/17 21:24 99 21 93 01/21/17 21:22 98 22 118/81 95 Room Air 01/21/17 21:20 99 01/21/17 21:19 118/81 01/21/17 20:09 106 27 123/66 90 Room Air 01/21/17 20:08 90 Room Air 01/21/17 19:27 36.7 108 18 111/61 95 Room Air Lab Results: Results Past 24 Hours Test 01/21/17 20:50 01/21/17 21:19 01/21/17 22:13 01/22/17 03:00 Range/Units White Blood Count 14.46 4.8-10.8 K/uL Red Blood Count 3.18 4.2-5.4 M/uL Hemoglobin 9.4 12.0-16.0 g/dL Hematocrit 30.6 37-47 % Mean Corpuscular Volume 96.2 80-100 fL Mean Corpuscular Hemoglobin 29.6 25-34 pg Mean Corpuscular Hemoglobin Concent 30.7 32-36 g/dl Platelet Count 344 130-400 K/uL Mean Platelet Volume 9.4 7.4-10.4 fL Neutrophils (%) (Auto) 68.4 % Lymphocytes (%) (Auto) 16.2 % Monocytes (%) (Auto) 14.2 % Eosinophils (%) (Auto) 0.6 % Basophils (%) (Auto) 0.3 % Neutrophils # (Auto) 9.89 1.4-6.5 K/uL Lymphocytes # (Auto) 2.34 1.2-3.4 K/uL Monocytes # (Auto) 2.05 0.11-0.59 K/uL Eosinophils # (Auto) 0.09 0-0.5 K/uL Basophils # (Auto) 0.04 0-0.2 K/uL RDW Standard Deviation 53.6 36.4-46.3 fL RDW Coefficient of Variation 15.1 11.5-14.5 % Immature Granulocyte % (Auto) 0.3 % Immature Granulocyte # (Auto) 0.05 0.00-0.02 K/uL Prothrombin Time 31.1 9.0-12.0 SECONDS Prothromb Time International Ratio 2.8 0.9-1.1 Activated Partial Thromboplast Time 39.6 21.0-31.0 SECONDS Partial Thromboplastin Ratio 1.5 Sodium Level 138 136-145 mmol/L Potassium Level 4.7 3.5-5.1 mmol/L Chloride Level 102 98-107 mmol/L Carbon Dioxide Level 27 21-32 mmol/L Anion Gap 9.0 3-11 mmol/L Blood Urea Nitrogen 59 7-18 mg/dl Creatinine 1.70 0.60-1.20 mg/dl Est Creatinine Clear Calc Drug Dose 22.1 ml/min Estimated GFR () 31.8 Estimated GFR (Non- 27.4 BUN/Creatinine Ratio 34.6 10-20 Random Glucose 109 70-99 mg/dl Calcium Level 9.6 8.5-10.1 mg/dl Magnesium Level 1.9 1.8-2.4 mg/dl Total Bilirubin 0.2 0.2-1 mg/dl Aspartate Amino Transf (AST/SGOT) 17 15-37 U/L Alanine Aminotransferase (ALT/SGPT) 16 12-78 U/L Alkaline Phosphatase 76 45-117 U/L Troponin I 0.082 0-0.045 ng/ml Total Protein 5.9 6.4-8.2 gm/dl Albumin 2.2 3.4-5.0 gm/dl Globulin 3.7 2.5-4.0 gm/dl Albumin/Globulin Ratio 0.6 0.9-2 Urine Color YELLOW Urine Appearance TURBID CLEAR Urine pH 6.5 4.5-7.5 Urine Specific [place] 1.014 1.000-1.030 Urine Protein NEG NEG Urine Glucose (UA) NEG NEG Urine Ketones NEG NEG Urine Occult Blood 1+ NEG Urine Nitrite NEG NEG Urine Bilirubin NEG NEG Urine Urobilinogen NEG NEG Urine Leukocyte Esterase LARGE NEG Urine WBC (Auto) >30 0-5 /hpf Urine RBC (Auto) 5-10 0-4 /hpf Urine Hyaline Casts (Auto) 1-5 0-5 /lpf Urine Epithelial Cells (Auto) 0-5 0-5 /lpf Urine Bacteria (Auto) 1+ NEG Bedside Lactic Acid Venous 1.47 0.90-1.70 mmol/L Creatine Kinase MB Ratio 0-3.0 Test 01/22/17 03:09 01/22/17 07:30 01/22/17 07:45 Range/Units Creatine Kinase MB 0.5 < 0.5 0.5-3.6 ng/ml Troponin I 0.088 0.077 0-0.045 ng/ml Creatine Kinase MB Ratio 0-3.0 White Blood Count 15.03 4.8-10.8 K/uL Red Blood Count 3.30 4.2-5.4 M/uL Hemoglobin 9.9 12.0-16.0 g/dL Hematocrit 31.7 37-47 % Mean Corpuscular Volume 96.1 80-100 fL Mean Corpuscular Hemoglobin 30.0 25-34 pg Mean Corpuscular Hemoglobin Concent 31.2 32-36 g/dl RDW Standard Deviation 54.0 36.4-46.3 fL RDW Coefficient of Variation 15.4 11.5-14.5 % Platelet Count 341 130-400 K/uL Mean Platelet Volume 9.7 7.4-10.4 fL Prothrombin Time 24.6 9.0-12.0 SECONDS Prothromb Time International Ratio 2.2 0.9-1.1 Sodium Level 140 136-145 mmol/L Potassium Level 4.2 3.5-5.1 mmol/L Chloride Level 103 98-107 mmol/L Carbon Dioxide Level 27 21-32 mmol/L Anion Gap 10.0 3-11 mmol/L Blood Urea Nitrogen 53 7-18 mg/dl Creatinine 1.60 0.60-1.20 mg/dl Est Creatinine Clear Calc Drug Dose 22.3 ml/min Estimated GFR () 34.2 Estimated GFR (Non- 29.5 BUN/Creatinine Ratio 32.9 10-20 Random Glucose 84 70-99 mg/dl Calcium Level 10.3 8.5-10.1 mg/dl Microbiology Results 01/21/17 Blood Culture, Received Pending 01/21/17 Blood Culture, Received Pending 01/21/17 Urine Culture - Preliminary, Resulted Staph Species
[2017-01-22] MEDS: LORAZEPAM 0.5 MG TAB PO PRN (20:33)
[2017-01-22] MEDS: MIRTAZAPINE TAB 15 MG TAB PO SCH (20:38)
[2017-01-22] MEDS ORDERED: CEFTRIAXONE SOD INJ 1 GM in DEXTROSE 5% ADD-VANTAGE 50ML 50 ML IV SCH (22:00)
[2017-01-23 03:43] VITALS: BP 118/66; PULSE 77; TEMP 36.5; O2SAT 96
[2017-01-23 06:47] LABS: INR 2.7 (0.9-1.1); PROTHROMBIN TIME (PATIENT) 29.9 SECONDS (9.0-12.0)
[2017-01-23 08:00] VITALS: BP 129/59; PULSE 78; TEMP 36.5; O2SAT 97
[2017-01-23] MEDS: CALCIUM 600MG + VIT D 400 IU TAB PO SCH ×2 (08:56→16:42)
[2017-01-23] MEDS: FLUCONAZOLE 100 MG TAB PO SCH (08:57)
[2017-01-23] MEDS: FLUTICASONE/SALMETEROL 250/50 (ADVAIR) 14 PUFF/1 INHALER INH SCH ×2 (08:57→20:57)
[2017-01-23] MEDS: SUCRALFATE 1 GM/10 ML UDC PO SCH ×4 (08:57→20:57)
[2017-01-23] MEDS: LACTOBACILLUS ACIDOPHILUS (FLORANEX) TAB PO SCH ×3 (08:57→20:59)
[2017-01-23] MEDS: MAGNESIUM OXIDE 400 MG TAB PO SCH (08:57)
[2017-01-23] MEDS: FERROUS SULFATE 325 MG TAB PO SCH ×2 (08:57→20:58)
[2017-01-23] MEDS: ASCORBIC ACID 500 MG TAB PO SCH (08:58)
[2017-01-23] MEDS: PANTOprazole SOD 40 MG TAB PO SCH ×2 (08:58→20:59)
[2017-01-23] MEDS: CHOLECALCIFEROL 1000 INTER.UNIT TAB PO SCH (08:58)
[2017-01-23] MEDS: PAROXETINE 20 MG TAB PO SCH (08:58)
[2017-01-23] MEDS: DOCUSATE SODIUM/SENNA 50/8.6MG TAB PO SCH (08:58)
[2017-01-23] MEDS: MULTIVITAMIN TAB PO SCH (08:58)
[2017-01-23] MEDS: METOPROLOL SUCC 25MG EXT REL TAB PO SCH ×2 (08:59→20:58)
[2017-01-23] MEDS: OXYCODONE/ACETAMINOPHEN 5-325 TAB PO PRN ×2 (09:07→19:49)
[2017-01-23] MEDS ORDERED: VANCOMYCIN CONSULT ACTIVE PRN (10:15)
--- NOTE | 2017-01-23 10:48 | Pharmacy Progress Note ---
Pharmacy Abx Initial Consult Date of Service Jan 23, 2017. Pharmacy Dosing Scope Date of Consult: 01/23/17 Consultation requested by: Dr. Engel Pharmacy is consulted to initiate vancomycin IV therapy, order appropriate labs and adjust drug dose/frequency. Subjective The patient is a 81 year old female admitted on Jan 21, 2017 at 23:17. Objective Height (Feet): 5 Height (Inches): 0.00 Weight (Kilograms): 68.200 Vital Signs (Past 12Hrs) Vital Signs Past 12 Hours Date Time Temp Pulse Resp B/P (MAP) Pulse Ox O2 Delivery O2 Flow Rate FiO2 01/23/17 08:00 97 Room Air 01/23/17 08:00 36.5 78 18 129/59 (82) 97 Room Air 01/23/17 04:00 Room Air 01/23/17 03:43 36.5 77 18 118/66 (83) 96 Room Air 01/22/17 23:59 Room Air 01/22/17 23:14 36.7 82 20 97/47 (64) 94 Room Air Micro Results Date/Time Source Procedure Growth Status 01/21/17 21:00 Blood Blood Culture - Preliminary NO GROWTH TO DATE. Resulted 01/21/17 20:50 Blood Blood Culture - Preliminary NO GROWTH TO DATE. Resulted 01/21/17 21:19 Urine,Catheterized Urine Culture - Preliminary Staph Species Resulted Risk Factors for Resistance * Hospitalization for 48 hours or more within the past 90 days * History of infection with a multidrug-resistant organism: * E. coli, Morganella with MDR patterns * Antimicrobial use within the last 90 days: * Unasyn/Augmentin in December Assessment & Plan Assessment * 81 year old female admitted with confusion, probably UTI * Recent [facility] to [facility] in December 2016 * History of MDR E. coli and Morganella species Now with Staph species in urine culture - starting vancomycin IV Plan * vancomycin for treatment of complicated UTI Vancomycin IV * Loading dose: 1500 mg (22 mg/kg) x1 dose only * Random level in AM of 01/24 * re-dose when level falls below 20mcg/mL * since poor renal function and prolonged elimination half life of vancomycin, chose to dose per random level to ensure therapeutic levels. Pharmacy will continue to follow and will adjust dose/frequency as necessary. Thank you.
[2017-01-23] MEDS ORDERED: VANCOMYCIN INJ 1,500 MG in SODIUM CHLORIDE 0.9% 500ML 500 ML IV SCH (11:00)
[2017-01-23] MEDS: SODIUM CHLORIDE 0.9% 1000ML 1,000 ML IV SCH (11:03)
[2017-01-23] MEDS ORDERED: BISACODYL 5 MG TABEC PO ONE (11:15)
[2017-01-23 13:00] VITALS: BP 129/59; PULSE 78; TEMP 36.5; O2SAT 97
[2017-01-23] MEDS: ACETAMINOPHEN 325 MG TAB PO PRN (13:22)
[2017-01-23 13:39] VITALS: BP 120/77; PULSE 84; TEMP 36.5; O2SAT 97
[2017-01-23] MEDS: WARFARIN SOD 1 MG TAB PO SCH (16:42)
--- NOTE | 2017-01-23 17:41 | Progress Note ---
Internal Med Progress Note Date of Service: Jan 23, 2017. Provider Documentation: SUBJECTIVE: sitting o the chair denies sob has left shoulder and knee pain afebrile eating ok OBJECTIVE: Vital Signs-as noted below Exam: General-alert and oriented. Not in distress. Weak ENT-normal hearing Neck-no neck masses Lungs-cta b/l no wheezing or crackles Heart-s1 and s2 heard regular no murmurs Abdomen-soft bowel sounds present nontender no distension Extremities- no erythema Neuro-alert and oriented moves extremities Lab data as noted below. ASSESSMENT & PLAN: CONFUSION Metabolic encephalopathy mostly from UTI on Rocephin gentle fluids improving urine cx preliminary streptococcus changed Rocephin to iv vanco f/u final cx RECURRENT UTI UA positive for leukocytes and bacteria Received zosyn and Rocephin in Er cx and abx as above ELEVATED TROPONIN possible related to dehydration and CKD asymptomatic ekg unremarkable trending down ANEMIA Hbg 9.4 Stable Will continue monitor CBC HX SEVERE AORTIC STENOSIS, S/P 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 There is severe concentric left ventricular hypertrophy. There is severe calcific aortic valve stenosis. Mild aortic regurgitation. There is mild to moderate tricuspid regurgitation. Grade I diastolic dysfunction, (abnormal relaxation pattern). Clinically hypovolemic CXR- no evidence of acute failure holding lasix was on gentle fluids which are stopped today will monitor for volume overload CAD S/P PCI TO RCA 2011 Denies chest pain Aspirin was discontinue in the last admission due to GIB/ anemia To continue beta hayden\ stable H/O RECURRENT PE continue Coumadin INR is 2.9 CKD STAGE III Creat is 1.7 on admission baseline trended up over past 6 months from 1.2-> 1.5 Holding lasix for now cr 1.6 will f/u labs ASTHMA Not in acute exacerbation Continue home inhalers CHRONIC RESPIRATORY FAILURE stable Continue home O2 2 liters NC HS and PRN OSTEOARTHRITIS On chronic prednisone 5 mg daily ANXIETY Continue home medications DVT PROPHYLAXIS On coumdadin INR 2.9 (therapeutic) CODE STATUS FULL CODE NO MECH VENTILATION as per h and p DISPOSITION Transfer to medical floor pt/ot prior to discharge Follows with Dr. Inman for primary care Vital Signs: Date Time Temp Pulse Resp B/P (MAP) Pulse Ox O2 Delivery O2 Flow Rate FiO2 01/23/17 16:00 Room Air 01/23/17 13:39 36.5 84 18 120/77 (91) 97 Room Air 01/23/17 13:00 36.5 78 18 97 01/23/17 12:00 Room Air 01/23/17 08:00 97 Room Air 01/23/17 08:00 36.5 78 18 129/59 (82) 97 Room Air 01/23/17 04:00 Room Air 01/23/17 03:43 36.5 77 18 118/66 (83) 96 Room Air 01/22/17 23:59 Room Air 01/22/17 23:14 36.7 82 20 97/47 (64) 94 Room Air 01/22/17 20:00 Room Air 01/22/17 19:24 36.8 90 22 115/56 (75) 97 Room Air Lab Results: Results Past 24 Hours Test 01/23/17 05:54 Range/Units Prothrombin Time 29.9 9.0-12.0 SECONDS Prothromb Time International Ratio 2.7 0.9-1.1
--- NOTE | 2017-01-23 20:54 | DIAGNOSTIC IMAGING REPORT ---
LEFT SHOULDER MIN 2 VIEWS ROUTINE CLINICAL HISTORY: left shoulder pain COMPARISON: None. DISCUSSION: Significant degenerative change. No evidence for fracture or dislocation. Degenerative change acromioclavicular joint. Subacute fracture left fifth rib. There is no evidence for soft tissue swelling. IMPRESSION: 1. Considerable degenerative change left shoulder.. 2. No acute bony abnormality. 3. Subacute/old fracture left fifth rib. Electronically signed by: Albert Mccarthy M.D. 01/23/2017 8:53 PM Dictated Date/Time: 01/23/2017 8:52 PM
--- NOTE | 2017-01-23 20:55 | DIAGNOSTIC IMAGING REPORT ---
RIGHT KNEE 3 VIEWS CLINICAL HISTORY: knee pain Right pain COMPARISON: None. DISCUSSION: Considerable degenerative change all major joint compartments. Reactive osteophytic changes throughout. Chondrocalcinosis. No significant joint effusion. There is no evidence for soft tissue swelling. IMPRESSION: Considerable degenerative change all major joint compartments. Chondrocalcinosis. Electronically signed by: Albert Mccarthy M.D. 01/23/2017 8:54 PM Dictated Date/Time: 01/23/2017 8:53 PM
--- NOTE | 2017-01-23 20:56 | DIAGNOSTIC IMAGING REPORT ---
LEFT KNEE 3 VIEWS CLINICAL HISTORY: left knee pain pain COMPARISON: None. DISCUSSION: Considerable degenerative change all major joint compartments. Chondrocalcinosis. Degenerative change patellofemoral joint. Very small joint effusion. No evidence for fracture. There is no evidence for soft tissue swelling. IMPRESSION: Considerable degenerative change. Very small joint effusion. No acute bony abnormality. Electronically signed by: Albert Mccarthy M.D. 01/23/2017 8:55 PM Dictated Date/Time: 01/23/2017 8:54 PM
[2017-01-23 21:00] VITALS: BP 117/74; PULSE 85
[2017-01-23] MEDS: MIRTAZAPINE TAB 15 MG TAB PO SCH (21:00)
[2017-01-23] MEDS ORDERED: VANCOMYCIN INJ 1,000 MG in SODIUM CHLORIDE 0.9% 250ML 250 ML IV SCH (21:00)
[2017-01-23] MEDS: LORAZEPAM 0.5 MG TAB PO PRN (21:20)
[2017-01-23 23:03] VITALS: BP 113/67; PULSE 84; TEMP 36.7; O2SAT 93
[2017-01-24 06:54] LABS: BASO % 0.5 %; BASO ABS # 0.04 K/uL (0-0.2); EOS % 2.7 %; HEMATOCRIT 25.1 % (37-47); IG% 0.4 %; LYMPH % 22.1 %; LYMPH ABS # 1.63 K/uL (1.2-3.4); MEAN CELL VOLUME 97.7 fL (80-100); MEAN CORPUSCULAR HEMOGLOBIN 31.1 pg (25-34); MEAN CORPUSCULAR HGB CONC 31.9 g/dl (32-36); MEAN PLATELET VOLUME 9.4 fL (7.4-10.4); MONO % 12.3 %; PLATELET COUNT 281 K/uL (130-400); RED BLOOD COUNT 2.57 M/uL (4.2-5.4); WHITE BLOOD COUNT 7.38 K/uL (4.8-10.8)
[2017-01-24 07:08] LABS: PROTHROMBIN TIME (PATIENT) 47.1 SECONDS (9.0-12.0)
[2017-01-24 07:13] LABS: INR 4.1 (0.9-1.1)
[2017-01-24 07:18] LABS: COMPLETE YES
[2017-01-24 07:19] VITALS: BP 121/73; PULSE 79; TEMP 36.3; O2SAT 98
[2017-01-24 07:42] LABS: CALCIUM 9.8 mg/dl (8.5-10.1); CREATININE 1.2 mg/dl (0.60-1.20); MAGNESIUM 2.1 mg/dl (1.8-2.4); POTASSIUM 3.4 mmol/L (3.5-5.1)
[2017-01-24] MEDS: DOCUSATE SODIUM/SENNA 50/8.6MG TAB PO SCH (08:29)
[2017-01-24] MEDS ORDERED: VANCOMYCIN INJ 1,000 MG in SODIUM CHLORIDE 0.9% 250ML 250 ML IV SCH (08:30)
[2017-01-24] MEDS: METOPROLOL SUCC 25MG EXT REL TAB PO SCH ×2 (08:30→20:20)
[2017-01-24] MEDS: PAROXETINE 20 MG TAB PO SCH (08:30)
[2017-01-24] MEDS: MULTIVITAMIN TAB PO SCH (08:31)
[2017-01-24] MEDS: ASCORBIC ACID 500 MG TAB PO SCH (08:31)
[2017-01-24] MEDS: CHOLECALCIFEROL 1000 INTER.UNIT TAB PO SCH (08:31)
[2017-01-24] MEDS: MAGNESIUM OXIDE 400 MG TAB PO SCH (08:32)
[2017-01-24] MEDS: PANTOprazole SOD 40 MG TAB PO SCH ×2 (08:32→20:18)
[2017-01-24] MEDS: CALCIUM 600MG + VIT D 400 IU TAB PO SCH ×2 (08:32→16:43)
[2017-01-24] MEDS: FERROUS SULFATE 325 MG TAB PO SCH ×2 (08:32→20:19)
[2017-01-24] MEDS: SUCRALFATE 1 GM/10 ML UDC PO SCH ×4 (08:33→20:18)
[2017-01-24] MEDS: LACTOBACILLUS ACIDOPHILUS (FLORANEX) TAB PO SCH ×3 (08:33→20:19)
[2017-01-24] MEDS: FLUTICASONE/SALMETEROL 250/50 (ADVAIR) 14 PUFF/1 INHALER INH SCH ×2 (08:33→20:21)
[2017-01-24] MEDS: OXYCODONE/ACETAMINOPHEN 5-325 TAB PO PRN ×2 (08:40→16:46)
[2017-01-24] MEDS: POTASSIUM CHLORIDE 10 MEQ TABCR PO SCH ×2 (08:40→20:18)
[2017-01-24] MEDS: FUROSEMIDE 40 MG TAB PO SCH (08:40)
--- NOTE | 2017-01-24 13:55 | CONSULTATION REPORT ---
DATE OF CONSULTATION: 01/24/2017 DATE OF CONSULTATION: 01/24/2017. SUBJECTIVE CHIEF COMPLAINT: Left shoulder pain and bilateral knee pain. HISTORY OF PRESENT ILLNESS: The patient has had a long history of left shoulder pain of at least 6 months and an even longer history of bilateral knee pain with the left knee being worse than the right. She was admitted recently for confusion and is being treated for possible confusion secondary to UTI. We were asked to see the patient by Dr. Engel for evaluation of the patient's joint pain and also evaluate the patient for possible steroid injections. PAST MEDICAL HISTORY: Chronic anemia, moderate to severe aortic stenosis, basal cell carcinoma status post Mohs surgery, hypertension, coronary artery disease with a right coronary artery stent in 2011, history of congestive heart failure, chronic kidney disease stage III, depression, dyslipidemia, factor V deficiency, GERD, hiatal hernia, history of endometrial cancer, status post history of hysterectomy, history of PE x2, IBS, polyarthritis with prednisone as a home medication. PAST SURGICAL HISTORY: Hysterectomy, cystoscopy, left knee arthroscopy, transcatheter aortic valve replacement, cataract surgery, coronary artery stent placement. FAMILY HISTORY: Noncontributory. SOCIAL HISTORY: The patient is an everyday smoker. She is . ALLERGIES: CEFDINIR, CLONAZEPAM, LEVOFLOXACIN, SULFASALAZINE, AND METOCLOPRAMIDE. HOME MEDICATIONS: Vitamin C, calcium plus vitamin D, vitamin D3, ferrous sulfate, Diflucan, Advair Diskus, Lasix, Lactinex, mag oxide, metoprolol ER, Remeron, multivitamin, pantoprazole, paroxetine, potassium ER, prednisone, sucralfate, Jantoven, also Tylenol, Proventil, lorazepam, Zofran, Percocet and Tums. OBJECTIVE PHYSICAL EXAMINATION: GENERAL: The patient is alert and oriented x3. She is in no acute distress. She is a well-nourished 81-year-old female. Today, she seems to be clear and answering questions appropriately, sitting on her bed in her room. MUSCULOSKELETAL: Upon inspection of the left shoulder, there is no ecchymosis, no erythema noted. There is no significant swelling noted. With palpation of the left shoulder, she has tenderness diffusely but more significantly at the anterior aspect of the shoulder. Any passive or active range of motion elicits pain. She has limited passive range of motion with forward flexion to approximately 135 degrees, abduction to probably 100 degrees. She has nearly full range of motion with extension of the left shoulder and also decreased range of motion with internal and external rotation secondary to pain. She has also decrease in strength in all directions of the left shoulder secondary to pain. Upon inspection of bilateral knees she is noted to have swelling in both knees. There is only mild effusion noted. There is no ecchymosis. No erythema. There is some bony deformities consistent with osteoarthritic knees. With range of motion of bilateral knees, she has nearly 0 degrees extension bilateral possibly slight flexion contracture bilateral and approximately 100 degrees of flexion bilateral knees. With palpation, she has tenderness at the medial and lateral joint spaces of both knees with the medial joint space more significant. The left knee is more tender today. There is no laxity with varus or valgus stress or with anterior or posterior drawer. The patient is known to have decrease in strength bilateral lower extremities. NEUROLOGIC EXAMINATION: Sensation normal and intact distally in bilateral lower extremities and the left upper extremity. SKIN EXAMINATION: There are no scars, rashes or ulcers noted of bilateral knees or the left upper extremity. X-RAY EXAMINATION: Multiple views of the left shoulder as well as multiple views of bilateral knees are reviewed. The left shoulder is noted to have osteoarthritic changes of the glenohumeral joint. There are no fractures noted. Bilateral knees are noted to have tricompartmental osteoarthritis with medial joint space narrowing, spurring and subchondral sclerosis. The right knee appears to be more severe on x-ray. ASSESSMENT AND DIAGNOSES: 1. Left shoulder osteoarthritis. 2. Bilateral knee osteoarthritis with the left knee being more symptomatic than the right. PLAN: Above assessment was discussed with the patient. At this time, we will order injections from the pharmacy and will do injections of 2 mL of Depo-Medrol and 6 mL of 0.5% Marcaine plain into the left shoulder and the left knee. At this time we will continue to monitor the right knee and we may consider right knee injection in the future, possibly as an outpatient if it becomes more symptomatic, particularly once the left knee pain has improved. When the injections are in she will receive the injections and we will follow up with the patient on an outpatient basis. I spoke with the patient and examined her at bedside. I agree with the assessment and plan set forth by Mr Allan CHOUDHURY. We proceed accordingly as above. Fabian Leslie DO MEG
[2017-01-24 15:22] VITALS: BP 103/64; PULSE 82; TEMP 36.6; O2SAT 93
[2017-01-24 16:02] LABS: HEMATOCRIT 28.8 % (37-47)
--- NOTE | 2017-01-24 17:58 | Progress Note ---
Internal Med Progress Note Date of Service: Jan 24, 2017. Provider Documentation: SUBJECTIVE: Lying in the bed comfortably says eating ok had bowel movement with stool softeners denies son complains of significant left shoulder and left knee pain OBJECTIVE: Vital Signs-as noted below Exam: General-alert and oriented. Not in distress. Weak ENT-normal hearing Neck-no neck masses Lungs-cta b/l no wheezing or crackles Heart-s1 and s2 heard regular no murmurs Abdomen-soft bowel sounds present nontender no distension Extremities- no erythema Painful left shoulder movements. pedal edema present Neuro-alert and oriented moves extremities Lab data as noted below. ASSESSMENT & PLAN: 81F PRESENTS WITH CONFUSION FROM UTI. IMPROVING. HAS CHRONIC SLOW GI BLEED. ON COUMADIN. MONITOR H AND H. PT/OT. MAY NEED PLACEMENT. REFUSED PLACEMENT LAST ADMISSION CONFUSION Metabolic encephalopathy mostly from UTI on Rocephin gentle fluids improving urine cx preliminary streptococcus And Rocephin was changed to iv vanco#2 final cx showing enterococcus sensitive to pencillin will d/c iv vanco and start on po Augmentin and complete 7 day course RECURRENT UTI UA positive for leukocytes and bacteria Received zosyn and Rocephin in Er cx and abx as above ELEVATED TROPONIN possible related to dehydration and CKD asymptomatic ekg unremarkable trending down stable ANEMIA Hbg 9.4 Stable hb 8.0 in am but was 8.8 later hx of hiatal hernia and slow chronic gi bleed was seen by GI last admission few weeks back and recommended to transfuse as needed will monitor holding Coumadin as inr supratherapeutic will consult GI if concerns for active bleeding HX SEVERE AORTIC STENOSIS, S/P 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 There is severe concentric left ventricular hypertrophy. There is severe calcific aortic valve stenosis. Mild aortic regurgitation. There is mild to moderate tricuspid regurgitation. Grade I diastolic dysfunction, (abnormal relaxation pattern). Clinically hypovolemic CXR- no evidence of acute failure Lasix held initially was on gentle fluids which are stopped yesterday will monitor for volume overload restarted home Lasix today CAD S/P PCI TO RCA 2011 Denies chest pain Aspirin was discontinue in the last admission due to GIB/ anemia To continue beta hayden\ stable H/O RECURRENT PE Holding Coumadin INR is 4.1 OSTEOARTHRITIS On chronic prednisone 5 mg daily severe left shoulder and knee pain consulted orthopedics and plan for steroid shots CKD STAGE III Creat is 1.7 on admission baseline trended up over past 6 months from 1.2-> 1.5 lasi =x was held on admission cr 1.2 today Lasix restarted today will f/u labs ASTHMA Not in acute exacerbation Continue home inhalers CHRONIC RESPIRATORY FAILURE stable Continue home O2 2 liters NC HS and PRN ANXIETY Continue home medications DVT PROPHYLAXIS On Coumadin which is held as inr is 4.1 CODE STATUS FULL CODE NO MECH VENTILATION as per h and p DISPOSITION Monitor in medical floor pt/ot prior to discharge social service to help with d/c planning refused rehab placement last admission Follows with Dr. Inman for primary care Vital Signs: Date Time Temp Pulse Resp B/P (MAP) Pulse Ox O2 Delivery O2 Flow Rate FiO2 01/24/17 16:22 Room Air 01/24/17 15:22 36.6 82 18 103/64 (77) 93 Room Air 01/24/17 08:00 Room Air 01/24/17 07:19 36.3 79 18 121/73 (89) 98 Room Air 01/24/17 00:00 Room Air 01/23/17 23:03 36.7 84 18 113/67 (82) 93 Room Air 01/23/17 21:00 85 117/74 (88) Lab Results: Results Past 24 Hours Test 01/24/17 06:14 01/24/17 15:50 Range/Units White Blood Count 7.38 4.8-10.8 K/uL Red Blood Count 2.57 4.2-5.4 M/uL Hemoglobin 8.0 8.8 12.0-16.0 g/dL Hematocrit 25.1 28.8 37-47 % Mean Corpuscular Volume 97.7 80-100 fL Mean Corpuscular Hemoglobin 31.1 25-34 pg Mean Corpuscular Hemoglobin Concent 31.9 32-36 g/dl Platelet Count 281 130-400 K/uL Mean Platelet Volume 9.4 7.4-10.4 fL Neutrophils (%) (Auto) 62.0 % Lymphocytes (%) (Auto) 22.1 % Monocytes (%) (Auto) 12.3 % Eosinophils (%) (Auto) 2.7 % Basophils (%) (Auto) 0.5 % Neutrophils # (Auto) 4.57 1.4-6.5 K/uL Lymphocytes # (Auto) 1.63 1.2-3.4 K/uL Monocytes # (Auto) 0.91 0.11-0.59 K/uL Eosinophils # (Auto) 0.20 0-0.5 K/uL Basophils # (Auto) 0.04 0-0.2 K/uL RDW Standard Deviation 55.6 36.4-46.3 fL RDW Coefficient of Variation 15.8 11.5-14.5 % Immature Granulocyte % (Auto) 0.4 % Immature Granulocyte # (Auto) 0.03 0.00-0.02 K/uL Red Blood Cell Morphology Unremarkable Prothrombin Time 47.1 9.0-12.0 SECONDS Prothromb Time International Ratio 4.1 0.9-1.1 Sodium Level 145 136-145 mmol/L Potassium Level 3.4 3.5-5.1 mmol/L Chloride Level 110 98-107 mmol/L Carbon Dioxide Level 25 21-32 mmol/L Anion Gap 10.0 3-11 mmol/L Blood Urea Nitrogen 24 7-18 mg/dl Creatinine 1.20 0.60-1.20 mg/dl Est Creatinine Clear Calc Drug Dose 30.7 ml/min Estimated GFR () 48.4 Estimated GFR (Non- 41.8 BUN/Creatinine Ratio 20.0 10-20 Random Glucose 93 70-99 mg/dl Calcium Level 9.8 8.5-10.1 mg/dl Magnesium Level 2.1 1.8-2.4 mg/dl Random Vancomycin Level 13.2 mcg/ml
[2017-01-24] MEDS: MIRTAZAPINE TAB 15 MG TAB PO SCH (20:18)
[2017-01-24] MEDS: LORAZEPAM 0.5 MG TAB PO PRN (20:30)
[2017-01-24] MEDS: AMOXICILLIN/CLAVULANATE TAB 500 MG TAB PO SCH (20:50)
[2017-01-24 20:54] VITALS: BP 144/82; PULSE 85
[2017-01-24] MEDS: ALBUT/IPRATROP 3MG/0.5MG NEB 3 ML VIAL INH SCH (21:50)
[2017-01-24 21:54] VITALS: PULSE 83; O2SAT 94
[2017-01-24] MEDS: ACETAMINOPHEN 325 MG TAB PO PRN (22:44)
[2017-01-24 23:00] VITALS: BP 124/66; PULSE 86; TEMP 36.4; O2SAT 96
[2017-01-25] VITALS (7 sets, daily range): BP systolic 116–164; BP diastolic 68–83; PULSE 72–103; TEMP 36.4–36.5; O2SAT 93–100
[2017-01-25 06:44] LABS: BASO % 0.5 %; BASO ABS # 0.04 K/uL (0-0.2); EOS % 2.4 %; HEMATOCRIT 26.9 % (37-47); IG% 0.5 %; LYMPH % 18.6 %; LYMPH ABS # 1.65 K/uL (1.2-3.4); MEAN CELL VOLUME 98.5 fL (80-100); MEAN CORPUSCULAR HEMOGLOBIN 30.4 pg (25-34); MEAN CORPUSCULAR HGB CONC 30.9 g/dl (32-36); MEAN PLATELET VOLUME 9.2 fL (7.4-10.4); MONO % 11.1 %; NEUT % 66.9 %; PLATELET COUNT 319 K/uL (130-400); RED BLOOD COUNT 2.73 M/uL (4.2-5.4); WHITE BLOOD COUNT 8.86 K/uL (4.8-10.8)
[2017-01-25 06:50] LABS: PROTHROMBIN TIME (PATIENT) 47.9 SECONDS (9.0-12.0)
[2017-01-25 06:56] LABS: INR 4.2 (0.9-1.1)
[2017-01-25] MEDS: ALBUT/IPRATROP 3MG/0.5MG NEB 3 ML VIAL INH SCH ×3 (06:57→19:20)
[2017-01-25 07:19] LABS: BUN/CREATININE RATIO 15.9 (10-20); CREATININE 1.1 mg/dl (0.60-1.20); MAGNESIUM 1.9 mg/dl (1.8-2.4)
[2017-01-25 07:29] LABS: COMPLETE YES
[2017-01-25] MEDS ORDERED: ETHYL CHLORIDE AER SPR 100 ML CAN EXT ONE (07:30)
[2017-01-25] MEDS ORDERED: BUPIVACAINE 0.5 % 5 MG/1 ML MPF 30ML VIAL INFIL SCH (08:00)
[2017-01-25] MEDS ORDERED: METHYLPREDNISOLONE ACETATE 80 MG/ML VIAL IM SCH (08:00)
[2017-01-25] MEDS: SUCRALFATE 1 GM/10 ML UDC PO SCH ×4 (08:12→19:58)
[2017-01-25] MEDS: AMOXICILLIN/CLAVULANATE TAB 500 MG TAB PO SCH ×2 (08:12→17:31)
[2017-01-25] MEDS: PANTOprazole SOD 40 MG TAB PO SCH ×2 (08:12→20:10)
[2017-01-25] MEDS: MAGNESIUM OXIDE 400 MG TAB PO SCH (08:12)
[2017-01-25] MEDS: ASCORBIC ACID 500 MG TAB PO SCH (08:12)
[2017-01-25] MEDS: MULTIVITAMIN TAB PO SCH (08:13)
[2017-01-25] MEDS: CALCIUM 600MG + VIT D 400 IU TAB PO SCH ×2 (08:13→17:31)
[2017-01-25] MEDS: FUROSEMIDE 40 MG TAB PO SCH (08:13)
[2017-01-25] MEDS: POTASSIUM CHLORIDE 10 MEQ TABCR PO SCH ×2 (08:13→20:08)
[2017-01-25] MEDS: CHOLECALCIFEROL 1000 INTER.UNIT TAB PO SCH (08:13)
[2017-01-25] MEDS: FERROUS SULFATE 325 MG TAB PO SCH ×2 (08:13→20:08)
[2017-01-25] MEDS: PAROXETINE 20 MG TAB PO SCH (08:14)
[2017-01-25] MEDS: LACTOBACILLUS ACIDOPHILUS (FLORANEX) TAB PO SCH ×3 (08:14→17:31)
[2017-01-25] MEDS: DOCUSATE SODIUM/SENNA 50/8.6MG TAB PO SCH (08:14)
[2017-01-25] MEDS: FLUTICASONE/SALMETEROL 250/50 (ADVAIR) 14 PUFF/1 INHALER INH SCH ×2 (08:17→19:58)
[2017-01-25] MEDS: METOPROLOL SUCC 25MG EXT REL TAB PO SCH ×2 (08:17→20:05)
[2017-01-25] MEDS: OXYCODONE/ACETAMINOPHEN 5-325 TAB PO PRN ×2 (09:43→19:57)
[2017-01-25] MEDS: METHYLPREDNISOLONE ACETATE 80 MG/ML VIAL IM SCH ×2 (10:20→10:30)
--- NOTE | 2017-01-25 10:29 | Orthopedic Progress Note ---
Orthopedic Progress Note Date of Service Jan 25, 2017. Subjective Reports: complaints (Still having left shoulder and knee pain. No change from yesterday.) Objective calves soft nontender, N/V intact, capillary refill less than 2 sec., A&O x3 Left shoulder: no erythema or ecchymosis. Painful passive and active ROM. Tender throughout. Left knee: No erythema or ecchymosis. Mild to moderate swelling. Minimal effusion. Tender at the medial and lateral joint space. Painful ROM with crepitation. Right knee: Exam is similar to the left knee but not as painful to palpation. Date Time Temp Pulse Resp B/P (MAP) Pulse Ox O2 Delivery O2 Flow Rate FiO2 01/25/17 08:22 Room Air 01/25/17 07:29 36.5 89 20 142/82 (102) 99 Room Air 01/25/17 06:57 72 18 93 Room Air 01/24/17 23:59 Room Air 01/24/17 23:00 36.4 86 18 124/66 (85) 96 Room Air 01/24/17 21:54 83 18 94 Room Air 01/24/17 20:54 85 144/82 (102) 01/24/17 20:00 Room Air 01/24/17 16:22 Room Air 01/24/17 15:22 36.6 82 18 103/64 (77) 93 Room Air Laboratory Results 24 Hours: Test 01/24/17 15:50 01/25/17 06:29 Hematocrit 28.8 % 26.9 % Hemoglobin 8.8 g/dL 8.3 g/dL White Blood Count 8.86 K/uL Red Blood Count 2.73 M/uL Mean Corpuscular Volume 98.5 fL Mean Corpuscular Hemoglobin 30.4 pg Mean Corpuscular Hemoglobin Concent 30.9 g/dl Platelet Count 319 K/uL Mean Platelet Volume 9.2 fL Neutrophils (%) (Auto) 66.9 % Lymphocytes (%) (Auto) 18.6 % Monocytes (%) (Auto) 11.1 % Eosinophils (%) (Auto) 2.4 % Basophils (%) (Auto) 0.5 % Neutrophils # (Auto) 5.94 K/uL Lymphocytes # (Auto) 1.65 K/uL Monocytes # (Auto) 0.98 K/uL Eosinophils # (Auto) 0.21 K/uL Basophils # (Auto) 0.04 K/uL Prothromb Time International Ratio 4.2 Prothrombin Time 47.9 SECONDS Assessment & Plan Assessment: Left shoulder osteoarthritis. Left knee osteoarthritis. Right knee osteoarthritis. Plan: Under sterile technique, the left glenohumeral joint was injected with 6 cc 0.5 % marcaine plain and 2 cc 80 mg/mL Depo Medrol using manual palpation and injecting with a 22 gauge needle. The patient tolerated the procedure well and was given post injection instructions. Under sterile technique, the left knee joint was injected at the lateral joint space with 6 cc 0.5% marcaine plain and 2 cc 80 mg/mL Depo Medrol using manual palpation and injecting with a 22 gauge needle. The patient tolerated the procedure well and was given post injection instructions. She may continue activity as tolerated. She may follow up as an outpatient for continued care of the arthritic joints or to consider a right knee injection if it becomes more painful. Patient was seen and examined by Dr Leslie after procedure was completed. Agree with above. Fabian Leslie DO
--- NOTE | 2017-01-25 11:47 | Orthopedic Progress Note ---
Orthopedic Progress Note Date of Service Jan 25, 2017. Subjective Reports: feeling well, Denies: chest pain, SOB, nausea / vomiting, light headedness Additional Notes: Tolerated left shoulder and left knee injections w/o difficulty. Feeling somewhat improved. Objective calves soft nontender, N/V intact, capillary refill less than 2 sec., A&O x3 Left shoulder benign. Left knee benign. DNVSI B UE and B LE. Date Time Temp Pulse Resp B/P (MAP) Pulse Ox O2 Delivery O2 Flow Rate FiO2 01/25/17 08:22 Room Air 01/25/17 07:29 36.5 89 20 142/82 (102) 99 Room Air 01/25/17 06:57 72 18 93 Room Air 01/24/17 23:59 Room Air 01/24/17 23:00 36.4 86 18 124/66 (85) 96 Room Air 01/24/17 21:54 83 18 94 Room Air 01/24/17 20:54 85 144/82 (102) 01/24/17 20:00 Room Air 01/24/17 16:22 Room Air 01/24/17 15:22 36.6 82 18 103/64 (77) 93 Room Air Laboratory Results 24 Hours: Test 01/24/17 15:50 01/25/17 06:29 Hematocrit 28.8 % 26.9 % Hemoglobin 8.8 g/dL 8.3 g/dL White Blood Count 8.86 K/uL Red Blood Count 2.73 M/uL Mean Corpuscular Volume 98.5 fL Mean Corpuscular Hemoglobin 30.4 pg Mean Corpuscular Hemoglobin Concent 30.9 g/dl Platelet Count 319 K/uL Mean Platelet Volume 9.2 fL Neutrophils (%) (Auto) 66.9 % Lymphocytes (%) (Auto) 18.6 % Monocytes (%) (Auto) 11.1 % Eosinophils (%) (Auto) 2.4 % Basophils (%) (Auto) 0.5 % Neutrophils # (Auto) 5.94 K/uL Lymphocytes # (Auto) 1.65 K/uL Monocytes # (Auto) 0.98 K/uL Eosinophils # (Auto) 0.21 K/uL Basophils # (Auto) 0.04 K/uL Prothromb Time International Ratio 4.2 Prothrombin Time 47.9 SECONDS Assessment & Plan Assessment: Left shoulder osteoarthritis. Left knee osteoarthritis. Right knee osteoarthritis. Plan: Patient had injections left knee and left shoulder as noted below by Saravanan Lemus PA-C and well tolerated. Patient to F/U at [facility] [place] with my service as outpatient. Under sterile technique, the left glenohumeral joint was injected with 6 cc 0.5 % marcaine plain and 2 cc 80 mg/mL Depo Medrol using manual palpation and injecting with a 22 gauge needle. The patient tolerated the procedure well and was given post injection instructions. Under sterile technique, the left knee joint was injected at the lateral joint space with 6 cc 0.5% marcaine plain and 2 cc 80 mg/mL Depo Medrol using manual palpation and injecting with a 22 gauge needle. The patient tolerated the procedure well and was given post injection instructions. She may continue activity as tolerated. She may follow up as an outpatient for continued care of the arthritic joints or to consider a right knee injection if it becomes more painful.
--- NOTE | 2017-01-25 13:31 | Consultant Recommendations ---
Metalworker Recommendations Date of Service Jan 25, 2017. Metalworker Recommendations May follow up with Dr. Leslie at [facility] if persistent pain in the injected joints or if the right knee becomes more painful and wishes to have an injection to it. Please call [phone] for an appointment if needed.
--- NOTE | 2017-01-25 16:42 | DIAGNOSTIC IMAGING REPORT ---
CHEST 2 VIEWS ROUTINE CLINICAL HISTORY: SOB COMPARISON STUDY: 01/21/2017 FINDINGS: Moderate stable cardiomegaly. Fixed lateral hernia. Mild emphysematous change. Chronic interstitial prominence unchanged in the prior study. Potential small parenchymal infiltrate left base. Diaphragms smooth but somewhat flattened. IMPRESSION: 1. Potential small parenchymal infiltrate left base. 2. Fixed hiatal hernia. 3. Moderate stable emphysematous change. Electronically signed by: Albert Mccarthy M.D. 01/25/2017 4:41 PM Dictated Date/Time: 01/25/2017 4:40 PM
[2017-01-25] MEDS: LORAZEPAM 0.5 MG TAB PO PRN (20:02)
[2017-01-25] MEDS: MIRTAZAPINE TAB 15 MG TAB PO SCH (20:06)
--- NOTE | 2017-01-25 22:16 | Progress Note ---
Medicine Progress Note Date & Time of Visit: Jan 25, 2017 at 15:40 . Subjective Generally feels better. No fever. Occasional nonproductive cough. Dyspneic with exertion. No chest pain. No nausea, vomiting, diarrhea. No urinary symptoms. . Objective Last 8 Hrs Date Time Temp Pulse Resp B/P (MAP) Pulse Ox O2 Delivery O2 Flow Rate FiO2 01/25/17 20:15 103 116/68 (84) 100 01/25/17 20:00 Nasal Cannula 2.0 01/25/17 19:20 88 16 94 Room Air 01/25/17 15:55 Nasal Cannula 2.0 01/25/17 15:36 36.4 95 20 164/83 (110) 94 Nasal Cannula 2.0 01/25/17 14:22 95 16 94 Room Air Physical Exam: General- no acute distress Neck- + JVD Lungs- few basilar rales, few rhonchi Heart- RRR, II/ sys murmur at base Abdomen- + BS, soft, nontender Extremities- trace pretibial edema, no calf tenderness Neuro- alert . Laboratory Results: Last 24 Hours Test 01/25/17 06:29 White Blood Count 8.86 K/uL Red Blood Count 2.73 M/uL Hemoglobin 8.3 g/dL Hematocrit 26.9 % Mean Corpuscular Volume 98.5 fL Mean Corpuscular Hemoglobin 30.4 pg Mean Corpuscular Hemoglobin Concent 30.9 g/dl Platelet Count 319 K/uL Mean Platelet Volume 9.2 fL Neutrophils (%) (Auto) 66.9 % Lymphocytes (%) (Auto) 18.6 % Monocytes (%) (Auto) 11.1 % Eosinophils (%) (Auto) 2.4 % Basophils (%) (Auto) 0.5 % Neutrophils # (Auto) 5.94 K/uL Lymphocytes # (Auto) 1.65 K/uL Monocytes # (Auto) 0.98 K/uL Eosinophils # (Auto) 0.21 K/uL Basophils # (Auto) 0.04 K/uL RDW Standard Deviation 56.7 fL RDW Coefficient of Variation 16.0 % Immature Granulocyte % (Auto) 0.5 % Immature Granulocyte # (Auto) 0.04 K/uL Red Blood Cell Morphology Unremarkable Prothrombin Time 47.9 SECONDS Prothromb Time International Ratio 4.2 Sodium Level 145 mmol/L Potassium Level 4.0 mmol/L Chloride Level 111 mmol/L Carbon Dioxide Level 27 mmol/L Anion Gap 7.0 mmol/L Blood Urea Nitrogen 18 mg/dl Creatinine 1.10 mg/dl Est Creatinine Clear Calc Drug Dose 33.6 ml/min Estimated GFR () 53.8 Estimated GFR (Non- 46.4 BUN/Creatinine Ratio 15.9 Random Glucose 98 mg/dl Calcium Level 10.0 mg/dl Magnesium Level 1.9 mg/dl Assessment & Plan SEPSIS Met criteria for sepsis per 2001 definition and current CMS guidelines. WBC = 15,000. Tachycardic. Serum lactate was 1.47. Hemodynamically stable. Blood cultures obtained and placed on broad spectrum antibiotic coverage with ceftriaxone. Source = UTI as discussed below. ALTERED MENTAL STATUS Probable encephalopathy secondary to sepsis / UTI. Improved. UTI Urine culture grew Enterococcus faecalis. Received IV vancomycin and ceftriaxone. Transitioned to oral therapy with amoxicillin / clavulanic acid. ELEVATED TROPONIN Probably due to UTI. Doubt acute coronary syndrome. CORONARY ARTERY DISEASE No anginal symptoms. CHF Check f/u chest x-ray. AORTIC STENOSIS Status post TAVR. HISTORY PULMONARY EMBOLISM Continue warfarin and titrate dose. CKD III / MYRTLE Serum creatinine on admission 1.7. Creatinine today = 1.1. Follow. ANEMIA Chronic. Hgb today = 8.3. Follow. OSTEOARTHRITIS Seen by Ortho. Continue prednisone. VTE PROPHYLAXIS Continue warfarin and titrate dose. DISPOSITION To be determined. Internal Medicine follow-up with Dr. Myrna Inman. . Current Inpatient Medications: Current Inpatient Medications Medications (Trade) Dose Ordered Sig/Rosi Route Start Time Stop Time Status Last Admin Dose Admin Ondansetron HCl (Zofran Inj) 4 mg Q6H PRN IV 01/21/17 23:15 02/20/17 23:14 Acetaminophen (Tylenol Tab) 650 mg Q6 PRN PO 01/21/17 23:45 02/20/17 23:44 01/24/17 22:44 650 MG Calcium Carbonate (Tums Chew Tab) 500 mg BID PRN PO 01/21/17 23:45 02/20/17 23:44 Calcium/Vitamin D (Caltrate Plus Tab) 1 tab BIDM PO 01/22/17 07:30 02/21/17 07:59 01/25/17 17:31 1 TAB Ferrous Sulfate (Feosol Tab) 325 mg BID PO 01/22/17 09:00 02/21/17 08:59 01/25/17 20:08 325 MG Salmeterol Xinafoate/ Fluticasone (Advair Diskus 250/50 Inh) 1 puff BID INH 01/22/17 09:00 02/21/17 08:59 01/25/17 19:58 1 PUFF Lorazepam (Ativan Tab) 0.5 mg HS PRN PO 01/21/17 23:45 02/20/17 23:44 01/25/17 20:02 0.5 MG Magnesium Oxide (Mag-Ox Tab) 400 mg DAILY PO 01/22/17 09:00 02/21/17 08:59 01/25/17 08:12 400 MG Metoprolol Succinate (Toprol Xl Tab) 12.5 mg BID PO 01/22/17 09:00 02/21/17 08:59 01/25/17 20:05 12.5 MG Mirtazapine (Remeron Tab) 15 mg HS PO 01/22/17 21:00 02/21/17 20:59 01/25/17 20:06 15 MG Multivitamins (Multivitamin Tab) 1 tab DAILY PO 01/22/17 09:00 02/21/17 08:59 01/25/17 08:13 1 TAB Ondansetron HCl (Zofran Tab) 4 mg Q6 PRN PO 01/21/17 23:45 02/20/17 23:44 Future Hold Oxycodone/ Acetaminophen (Percocet 5-325mg Tab) 1 tab Q8H PRN PO 01/21/17 23:45 02/04/17 23:44 01/25/17 19:57 1 TAB Pantoprazole Sodium (Protonix Tab) 40 mg BID PO 01/22/17 09:00 02/21/17 08:59 01/25/17 20:10 40 MG Prednisone (PredniSONE TAB) 5 mg DAILY PO 01/22/17 09:00 02/21/17 08:59 01/25/17 08:13 5 MG Sucralfate (Carafate Susp) 1 gm QID PO 01/22/17 09:00 02/21/17 08:59 01/25/17 19:58 1 GM Warfarin Sodium (Coumadin Tab) 1 mg DAILY@1600 PO 01/22/17 16:00 02/21/17 15:59 Future Hold 01/23/17 16:42 1 MG Ascorbic Acid (Vitamin C Tab) 500 mg DAILY PO 01/22/17 09:00 02/21/17 08:59 01/25/17 08:12 500 MG Cholecalciferol (Vitamin D Tab) 2,000 inter.unit DAILY PO 01/22/17 09:00 02/21/17 08:59 01/25/17 08:13 2,000 INTER.UNIT Paroxetine HCl (pAXil TAB) 40 mg DAILY PO 01/22/17 09:00 02/21/17 08:59 01/25/17 08:14 40 MG Albuterol/ Ipratropium (Duoneb) 3 ml Q4R PRN INH 01/22/17 01:30 02/21/17 01:29 Senna/Docusate Sodium (Senokot S Tab) 1 tab QAM PO 01/22/17 09:00 02/21/17 08:59 01/25/17 08:14 1 TAB Furosemide (Lasix Tab) 40 mg DAILY PO 01/24/17 09:00 02/23/17 08:59 01/25/17 08:13 40 MG Potassium Chloride (Klor-Con M10) 10 meq BID PO 01/24/17 09:00 02/23/17 08:59 01/25/17 20:08 10 MEQ Albuterol/ Ipratropium (Duoneb) 3 ml TIDR INH 01/24/17 21:00 02/23/17 20:59 01/25/17 19:20 3 ML Amoxicillin/ Clavulanate Potassium (Augmentin Tab) 500 mg BIDM PO 01/24/17 20:00 02/03/17 19:59 01/25/17 17:31 500 MG Lactobacillus Acidophilus (Floranex Tab) 4 tab TIDM PO 01/25/17 08:00 02/24/17 07:59 01/25/17 17:31 4 TAB
[2017-01-26] VITALS (14 sets, daily range): BP systolic 103–168; BP diastolic 49–90; PULSE 74–113; TEMP 36.4–36.6; O2SAT 95–100
[2017-01-26 06:10] LABS: BASO % 0.1 %; BASO ABS # 0.01 K/uL (0-0.2); IG% 0.3 %; LYMPH % 11.6 %; LYMPH ABS # 1.34 K/uL (1.2-3.4); MEAN CELL VOLUME 98.2 fL (80-100); MEAN CORPUSCULAR HEMOGLOBIN 29.5 pg (25-34); MEAN PLATELET VOLUME 9.3 fL (7.4-10.4); MONO % 0.9 %; NEUT % 87.1 %; PLATELET COUNT 351 K/uL (130-400); RED BLOOD COUNT 2.75 M/uL (4.2-5.4); WHITE BLOOD COUNT 11.57 K/uL (4.8-10.8)
[2017-01-26 06:20] LABS: PROTHROMBIN TIME (PATIENT) 42.2 SECONDS (9.0-12.0)
[2017-01-26 06:24] LABS: INR 3.7 (0.9-1.1)
[2017-01-26 06:26] LABS: COMPLETE YES
[2017-01-26 06:38] LABS: BUN/CREATININE RATIO 11.6 (10-20); CALCIUM 9.8 mg/dl (8.5-10.1); CREATININE 1.5 mg/dl (0.60-1.20); MAGNESIUM 1.9 mg/dl (1.8-2.4)
[2017-01-26] MEDS: ALBUT/IPRATROP 3MG/0.5MG NEB 3 ML VIAL INH SCH ×3 (07:14→19:44)
[2017-01-26] MEDS: FUROSEMIDE 40 MG TAB PO SCH (08:18)
[2017-01-26] MEDS: FLUTICASONE/SALMETEROL 250/50 (ADVAIR) 14 PUFF/1 INHALER INH SCH ×2 (08:18→21:11)
[2017-01-26] MEDS: DOCUSATE SODIUM/SENNA 50/8.6MG TAB PO SCH (08:19)
[2017-01-26] MEDS: AMOXICILLIN/CLAVULANATE TAB 500 MG TAB PO SCH ×2 (08:19→18:03)
[2017-01-26] MEDS: MULTIVITAMIN TAB PO SCH (08:19)
[2017-01-26] MEDS: FERROUS SULFATE 325 MG TAB PO SCH ×2 (08:19→21:06)
[2017-01-26] MEDS: CALCIUM 600MG + VIT D 400 IU TAB PO SCH ×2 (08:19→18:03)
[2017-01-26] MEDS: PAROXETINE 20 MG TAB PO SCH (08:20)
[2017-01-26] MEDS: MAGNESIUM OXIDE 400 MG TAB PO SCH (08:20)
[2017-01-26] MEDS: CHOLECALCIFEROL 1000 INTER.UNIT TAB PO SCH (08:20)
[2017-01-26] MEDS: ASCORBIC ACID 500 MG TAB PO SCH (08:20)
[2017-01-26] MEDS: SUCRALFATE 1 GM/10 ML UDC PO SCH ×4 (08:21→21:10)
[2017-01-26] MEDS: POTASSIUM CHLORIDE 10 MEQ TABCR PO SCH (08:21)
[2017-01-26] MEDS: LACTOBACILLUS ACIDOPHILUS (FLORANEX) TAB PO SCH ×3 (08:21→18:03)
[2017-01-26] MEDS: METOPROLOL SUCC 25MG EXT REL TAB PO SCH ×2 (08:22→21:08)
[2017-01-26] MEDS: PANTOprazole SOD 40 MG TAB PO SCH ×2 (08:54→21:07)
[2017-01-26] MEDS: OXYCODONE/ACETAMINOPHEN 5-325 TAB PO PRN ×2 (12:24→20:59)
[2017-01-26] MEDS ORDERED: FUROSEMIDE INJ 40 MG in SYRINGE 0 ML IV SCH (15:30)
[2017-01-26] MEDS ORDERED: ACETAMINOPHEN 325 MG TAB PO SCH (15:30)
[2017-01-26] MEDS ORDERED: LORAZEPAM 0.5 MG TAB PO PRN (18:45)
[2017-01-26] MEDS: LORAZEPAM 0.5 MG TAB PO PRN (20:59)
[2017-01-26] MEDS: MIRTAZAPINE TAB 15 MG TAB PO SCH (21:10)
--- NOTE | 2017-01-26 22:21 | Progress Note ---
Medicine Progress Note Date & Time of Visit: Jan 26, 2017 at 15:00 . Subjective No fever. Occasional cough. Dyspneic on exertion. No chest pain. No nausea, vomiting, diarrhea. . Objective Last 8 Hrs Date Time Temp Pulse Resp B/P (MAP) Pulse Ox O2 Delivery O2 Flow Rate FiO2 01/26/17 21:05 109 134/76 (95) 01/26/17 19:44 98 16 98 Nasal Cannula 2.0 01/26/17 19:30 36.5 113 22 168/49 98 2.0 01/26/17 16:31 36.5 104 16 121/90 (100) 95 Room Air 01/26/17 15:29 Room Air Physical Exam: General- no acute distress Neck- + JVD Lungs- few basilar rales Heart- RRR, II/ sys murmur at base Abdomen- + BS, soft, nontender Extremities- 1+ pretibial edema, no calf tenderness Neuro- alert . Laboratory Results: Last 24 Hours Test 01/26/17 05:44 White Blood Count 11.57 K/uL Red Blood Count 2.75 M/uL Hemoglobin 8.1 g/dL Hematocrit 27.0 % Mean Corpuscular Volume 98.2 fL Mean Corpuscular Hemoglobin 29.5 pg Mean Corpuscular Hemoglobin Concent 30.0 g/dl Platelet Count 351 K/uL Mean Platelet Volume 9.3 fL Neutrophils (%) (Auto) 87.1 % Lymphocytes (%) (Auto) 11.6 % Monocytes (%) (Auto) 0.9 % Eosinophils (%) (Auto) 0.0 % Basophils (%) (Auto) 0.1 % Neutrophils # (Auto) 10.09 K/uL Lymphocytes # (Auto) 1.34 K/uL Monocytes # (Auto) 0.10 K/uL Eosinophils # (Auto) 0.00 K/uL Basophils # (Auto) 0.01 K/uL RDW Standard Deviation 56.8 fL RDW Coefficient of Variation 16.3 % Immature Granulocyte % (Auto) 0.3 % Immature Granulocyte # (Auto) 0.03 K/uL Red Blood Cell Morphology Unremarkable Prothrombin Time 42.2 SECONDS Prothromb Time International Ratio 3.7 Sodium Level 141 mmol/L Potassium Level 5.0 mmol/L Chloride Level 106 mmol/L Carbon Dioxide Level 24 mmol/L Anion Gap 11.0 mmol/L Blood Urea Nitrogen 17 mg/dl Creatinine 1.50 mg/dl Est Creatinine Clear Calc Drug Dose 24.2 ml/min Estimated GFR () 37.0 Estimated GFR (Non- 31.9 BUN/Creatinine Ratio 11.6 Random Glucose 160 mg/dl Calcium Level 9.8 mg/dl Magnesium Level 1.9 mg/dl Assessment & Plan SEPSIS Met criteria for sepsis per 2001 definition and current CMS guidelines. WBC = 15,000. Tachycardic. Serum lactate was 1.47. Hemodynamically stable. Blood cultures obtained and placed on broad spectrum antibiotic coverage with ceftriaxone. Source = UTI as discussed below. ALTERED MENTAL STATUS Probable encephalopathy secondary to sepsis / UTI. Improved. UTI Urine culture grew Enterococcus faecalis. Received IV vancomycin and ceftriaxone. Transitioned to oral therapy with amoxicillin / clavulanic acid. ELEVATED TROPONIN Probably due to UTI. Doubt acute coronary syndrome. CORONARY ARTERY DISEASE No anginal symptoms. CHF Check f/u chest x-ray. AORTIC STENOSIS Status post TAVR. HISTORY PULMONARY EMBOLISM Continue warfarin and titrate dose. CKD III / MYRTLE Serum creatinine on admission 1.7. Creatinine today = 1.5. Follow. ANEMIA Chronic. Hgb today = 8.1. Experiencing fatigued and dyspnea on exertion. Transfuse 1 unit pRBC's today. Follow. OSTEOARTHRITIS Seen by Ortho. Continue prednisone. VTE PROPHYLAXIS Continue warfarin and titrate dose. DISPOSITION To be determined. Internal Medicine follow-up with Dr. Myrna Inman. . Current Inpatient Medications: Current Inpatient Medications Medications (Trade) Dose Ordered Sig/Rosi Route Start Time Stop Time Status Last Admin Dose Admin Ondansetron HCl (Zofran Inj) 4 mg Q6H PRN IV 01/21/17 23:15 02/20/17 23:14 Acetaminophen (Tylenol Tab) 650 mg Q6 PRN PO 01/21/17 23:45 02/20/17 23:44 01/24/17 22:44 650 MG Calcium Carbonate (Tums Chew Tab) 500 mg BID PRN PO 01/21/17 23:45 02/20/17 23:44 Calcium/Vitamin D (Caltrate Plus Tab) 1 tab BIDM PO 01/22/17 07:30 02/21/17 07:59 01/26/17 18:03 1 TAB Ferrous Sulfate (Feosol Tab) 325 mg BID PO 01/22/17 09:00 02/21/17 08:59 01/26/17 21:06 325 MG Salmeterol Xinafoate/ Fluticasone (Advair Diskus 250/50 Inh) 1 puff BID INH 01/22/17 09:00 02/21/17 08:59 01/26/17 21:11 1 PUFF Lorazepam (Ativan Tab) 0.5 mg HS PRN PO 01/21/17 23:45 02/20/17 23:44 01/26/17 20:59 0.5 MG Magnesium Oxide (Mag-Ox Tab) 400 mg DAILY PO 01/22/17 09:00 02/21/17 08:59 01/26/17 08:20 400 MG Metoprolol Succinate (Toprol Xl Tab) 12.5 mg BID PO 01/22/17 09:00 02/21/17 08:59 01/26/17 21:08 12.5 MG Mirtazapine (Remeron Tab) 15 mg HS PO 01/22/17 21:00 02/21/17 20:59 01/26/17 21:10 15 MG Multivitamins (Multivitamin Tab) 1 tab DAILY PO 01/22/17 09:00 02/21/17 08:59 01/26/17 08:19 1 TAB Ondansetron HCl (Zofran Tab) 4 mg Q6 PRN PO 01/21/17 23:45 02/20/17 23:44 Future Hold Oxycodone/ Acetaminophen (Percocet 5-325mg Tab) 1 tab Q8H PRN PO 01/21/17 23:45 02/04/17 23:44 01/26/17 20:59 1 TAB Pantoprazole Sodium (Protonix Tab) 40 mg BID PO 01/22/17 09:00 02/21/17 08:59 01/26/17 21:07 40 MG Prednisone (PredniSONE TAB) 5 mg DAILY PO 01/22/17 09:00 02/21/17 08:59 01/26/17 08:19 5 MG Sucralfate (Carafate Susp) 1 gm QID PO 01/22/17 09:00 02/21/17 08:59 01/26/17 21:10 1 GM Warfarin Sodium (Coumadin Tab) 1 mg DAILY@1600 PO 01/22/17 16:00 02/21/17 15:59 Future Hold 01/23/17 16:42 1 MG Ascorbic Acid (Vitamin C Tab) 500 mg DAILY PO 01/22/17 09:00 02/21/17 08:59 01/26/17 08:20 500 MG Cholecalciferol (Vitamin D Tab) 2,000 inter.unit DAILY PO 01/22/17 09:00 02/21/17 08:59 01/26/17 08:20 2,000 INTER.UNIT Paroxetine HCl (pAXil TAB) 40 mg DAILY PO 01/22/17 09:00 02/21/17 08:59 01/26/17 08:20 40 MG Albuterol/ Ipratropium (Duoneb) 3 ml Q4R PRN INH 01/22/17 01:30 02/21/17 01:29 Senna/Docusate Sodium (Senokot S Tab) 1 tab QAM PO 01/22/17 09:00 02/21/17 08:59 01/25/17 08:14 1 TAB Furosemide (Lasix Tab) 40 mg DAILY PO 01/24/17 09:00 02/23/17 08:59 01/26/17 08:18 40 MG Albuterol/ Ipratropium (Duoneb) 3 ml TIDR INH 01/24/17 21:00 02/23/17 20:59 01/26/17 19:44 3 ML Amoxicillin/ Clavulanate Potassium (Augmentin Tab) 500 mg BIDM PO 01/24/17 20:00 02/03/17 19:59 01/26/17 18:03 500 MG Lactobacillus Acidophilus (Floranex Tab) 4 tab TIDM PO 01/25/17 08:00 02/24/17 07:59 01/26/17 18:03 4 TAB Acetaminophen (Tylenol Tab) 650 mg TODAY@1530 PO 01/26/17 15:30 01/26/17 23:59 01/26/17 18:51 650 MG Furosemide 40 mg/ Syringe 4 ml @ 4 mls/min TODAY@1530 IV 01/26/17 15:30 01/26/17 23:59 01/26/17 18:50 4 MLS/MIN Lorazepam (Ativan Tab) 0.25 mg Q8H PRN PO 01/26/17 18:45 02/25/17 18:44
[2017-01-27] VITALS (8 sets, daily range): BP systolic 106–130; BP diastolic 66–73; PULSE 83–99; TEMP 36.3–36.8; O2SAT 95–98
[2017-01-27 05:58] LABS: INR 2.6 (0.9-1.1)
[2017-01-27 06:06] LABS: HEMATOCRIT 28.4 % (37-47); MEAN CELL VOLUME 95.3 fL (80-100); MEAN CORPUSCULAR HEMOGLOBIN 30.2 pg (25-34); MEAN CORPUSCULAR HGB CONC 31.7 g/dl (32-36); MEAN PLATELET VOLUME 9.3 fL (7.4-10.4); PLATELET COUNT 322 K/uL (130-400); RED BLOOD COUNT 2.98 M/uL (4.2-5.4); WHITE BLOOD COUNT 20.53 K/uL (4.8-10.8)
[2017-01-27 06:30] LABS: BUN/CREATININE RATIO 18.9 (10-20); CREATININE 1.6 mg/dl (0.60-1.20); POTASSIUM 4.5 mmol/L (3.5-5.1)
[2017-01-27] MEDS: ASCORBIC ACID 500 MG TAB PO SCH (07:35)
[2017-01-27] MEDS: LACTOBACILLUS ACIDOPHILUS (FLORANEX) TAB PO SCH ×3 (07:35→17:15)
[2017-01-27] MEDS: FLUTICASONE/SALMETEROL 250/50 (ADVAIR) 14 PUFF/1 INHALER INH SCH ×2 (07:35→21:00)
[2017-01-27] MEDS: CALCIUM 600MG + VIT D 400 IU TAB PO SCH ×2 (07:35→17:15)
[2017-01-27] MEDS: MAGNESIUM OXIDE 400 MG TAB PO SCH (07:36)
[2017-01-27] MEDS: PANTOprazole SOD 40 MG TAB PO SCH ×2 (07:36→20:48)
[2017-01-27] MEDS: AMOXICILLIN/CLAVULANATE TAB 500 MG TAB PO SCH ×2 (07:36→17:15)
[2017-01-27] MEDS: MULTIVITAMIN TAB PO SCH (07:36)
[2017-01-27] MEDS: PAROXETINE 20 MG TAB PO SCH (07:36)
[2017-01-27] MEDS: DOCUSATE SODIUM/SENNA 50/8.6MG TAB PO SCH (07:37)
[2017-01-27] MEDS: METOPROLOL SUCC 25MG EXT REL TAB PO SCH ×2 (07:37→20:49)
[2017-01-27] MEDS: FUROSEMIDE 40 MG TAB PO SCH (07:37)
[2017-01-27] MEDS: FERROUS SULFATE 325 MG TAB PO SCH ×2 (07:37→20:48)
[2017-01-27] MEDS: SUCRALFATE 1 GM/10 ML UDC PO SCH ×4 (07:38→20:47)
[2017-01-27] MEDS: CHOLECALCIFEROL 1000 INTER.UNIT TAB PO SCH (07:38)
[2017-01-27] MEDS: ALBUT/IPRATROP 3MG/0.5MG NEB 3 ML VIAL INH SCH ×3 (07:57→19:20)
[2017-01-27] MEDS: OXYCODONE/ACETAMINOPHEN 5-325 TAB PO PRN ×2 (11:55→21:13)
[2017-01-27 12:56] LABS: CALCIUM 9.8 mg/dl (8.5-10.1)
[2017-01-27] MEDS: MIRTAZAPINE TAB 15 MG TAB PO SCH (20:48)
[2017-01-27] MEDS: LORAZEPAM 0.5 MG TAB PO PRN (21:12)
--- NOTE | 2017-01-27 23:05 | Progress Note ---
Medicine Progress Note Date & Time of Visit: Jan 27, 2017 Initially seen around 17:00 and examined around 18:30. . Subjective No fever. Tires easily. No cough. Dyspnea on exertion. No chest pain. No nausea, vomiting, diarrhea. . Objective Last 8 Hrs Date Time Temp Pulse Resp B/P (MAP) Pulse Ox O2 Delivery O2 Flow Rate FiO2 01/27/17 20:00 Nasal Cannula 2.0 01/27/17 19:20 95 16 96 Room Air 01/27/17 15:30 Room Air Physical Exam: General- no acute distress Neck- + JVD Lungs- rales left base Heart- RRR, II/ sys murmur at base Abdomen- + BS, soft, nontender Extremities- 1-2+ pretibial edema, no calf tenderness Neuro- alert . Laboratory Results: Last 24 Hours Test 01/27/17 05:01 White Blood Count 20.53 K/uL Red Blood Count 2.98 M/uL Hemoglobin 9.0 g/dL Hematocrit 28.4 % Mean Corpuscular Volume 95.3 fL Mean Corpuscular Hemoglobin 30.2 pg Mean Corpuscular Hemoglobin Concent 31.7 g/dl RDW Standard Deviation 60.0 fL RDW Coefficient of Variation 17.7 % Platelet Count 322 K/uL Mean Platelet Volume 9.3 fL Nucleated RBC Absolute Count (auto) 0.04 K/uL Nucleated Red Blood Cells % 0.2 % Prothrombin Time 29.0 SECONDS Prothromb Time International Ratio 2.6 Sodium Level 142 mmol/L Potassium Level 4.5 mmol/L Chloride Level 106 mmol/L Carbon Dioxide Level 25 mmol/L Anion Gap 11.0 mmol/L Blood Urea Nitrogen 30 mg/dl Creatinine 1.60 mg/dl Est Creatinine Clear Calc Drug Dose 22.8 ml/min Estimated GFR () 34.2 Estimated GFR (Non- 29.5 BUN/Creatinine Ratio 18.9 Random Glucose 168 mg/dl Calcium Level 9.8 mg/dl Assessment & Plan SEPSIS Met criteria for sepsis per 2001 definition and current CMS guidelines. WBC = 15,000. Tachycardic. Serum lactate was 1.47. Hemodynamically stable. Blood cultures obtained and placed on broad spectrum antibiotic coverage with ceftriaxone. Source = UTI as discussed below. ALTERED MENTAL STATUS Probable encephalopathy secondary to sepsis / UTI. Improved. UTI Urine culture grew Enterococcus faecalis. Received IV vancomycin and ceftriaxone. Transitioned to oral therapy with amoxicillin / clavulanic acid. ELEVATED TROPONIN Probably due to UTI / sepsis. Doubt acute coronary syndrome. CORONARY ARTERY DISEASE No anginal symptoms. 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 No pulmonary edema on chest x-ray performed 01/25. Continue furosemide. AORTIC STENOSIS Status post TAVR. HISTORY PULMONARY EMBOLISM Continue warfarin and titrate dose. CKD III / MYRTLE Serum creatinine on admission 1.7. Creatinine today = 1.6. Follow. ANEMIA Chronic. GI bleed in December; endoscopic evaluation not pursued due to multiple comorbidities. Hgb as low as 8.0. No gross GI bleeding at this time. Experiencing fatigued and dyspnea on exertion. Transfused 1 unit pRBC's 01/26. Hemoglobin today = 9.0. Follow. OSTEOARTHRITIS Seen by Ortho. Left knee and left shoulder injected with Marcaine and methylprednisolone. Continue prednisone. LEUKOCYTOSIS WBC today 20,530. Patient is afebrile and clinically stable. Leukocytosis may be secondary to joint infections with methylprednisolone. Follow. VTE PROPHYLAXIS Continue warfarin and titrate dose. DISPOSITION To be determined. Functional status is still poor. May benefit from skilled care or inpatient rehabilitation, although reluctant to consider. Internal Medicine follow-up with Dr. Myrna Inman. . Current Inpatient Medications: Current Inpatient Medications Medications (Trade) Dose Ordered Sig/Rosi Route Start Time Stop Time Status Last Admin Dose Admin Ondansetron HCl (Zofran Inj) 4 mg Q6H PRN IV 01/21/17 23:15 02/20/17 23:14 Acetaminophen (Tylenol Tab) 650 mg Q6 PRN PO 01/21/17 23:45 02/20/17 23:44 01/24/17 22:44 650 MG Calcium Carbonate (Tums Chew Tab) 500 mg BID PRN PO 01/21/17 23:45 02/20/17 23:44 Calcium/Vitamin D (Caltrate Plus Tab) 1 tab BIDM PO 01/22/17 07:30 02/21/17 07:59 01/27/17 17:15 1 TAB Ferrous Sulfate (Feosol Tab) 325 mg BID PO 01/22/17 09:00 02/21/17 08:59 01/27/17 20:48 325 MG Salmeterol Xinafoate/ Fluticasone (Advair Diskus 250/50 Inh) 1 puff BID INH 01/22/17 09:00 02/21/17 08:59 01/27/17 07:35 1 PUFF Lorazepam (Ativan Tab) 0.5 mg HS PRN PO 01/21/17 23:45 02/20/17 23:44 01/27/17 21:12 0.5 MG Magnesium Oxide (Mag-Ox Tab) 400 mg DAILY PO 01/22/17 09:00 02/21/17 08:59 01/27/17 07:36 400 MG Metoprolol Succinate (Toprol Xl Tab) 12.5 mg BID PO 01/22/17 09:00 02/21/17 08:59 01/27/17 20:49 12.5 MG Mirtazapine (Remeron Tab) 15 mg HS PO 01/22/17 21:00 02/21/17 20:59 01/27/17 20:48 15 MG Multivitamins (Multivitamin Tab) 1 tab DAILY PO 01/22/17 09:00 02/21/17 08:59 01/27/17 07:36 1 TAB Ondansetron HCl (Zofran Tab) 4 mg Q6 PRN PO 01/21/17 23:45 02/20/17 23:44 Future Hold Oxycodone/ Acetaminophen (Percocet 5-325mg Tab) 1 tab Q8H PRN PO 01/21/17 23:45 02/04/17 23:44 01/27/17 21:13 1 TAB Pantoprazole Sodium (Protonix Tab) 40 mg BID PO 01/22/17 09:00 02/21/17 08:59 01/27/17 20:48 40 MG Prednisone (PredniSONE TAB) 5 mg DAILY PO 01/22/17 09:00 02/21/17 08:59 01/27/17 07:36 5 MG Sucralfate (Carafate Susp) 1 gm QID PO 01/22/17 09:00 02/21/17 08:59 01/27/17 20:47 1 GM Warfarin Sodium (Coumadin Tab) 1 mg DAILY@1600 PO 01/22/17 16:00 02/21/17 15:59 Future Hold 01/23/17 16:42 1 MG Ascorbic Acid (Vitamin C Tab) 500 mg DAILY PO 01/22/17 09:00 02/21/17 08:59 01/27/17 07:35 500 MG Cholecalciferol (Vitamin D Tab) 2,000 inter.unit DAILY PO 01/22/17 09:00 02/21/17 08:59 01/27/17 07:38 2,000 INTER.UNIT Paroxetine HCl (pAXil TAB) 40 mg DAILY PO 01/22/17 09:00 02/21/17 08:59 01/27/17 07:36 40 MG Albuterol/ Ipratropium (Duoneb) 3 ml Q4R PRN INH 01/22/17 01:30 02/21/17 01:29 Senna/Docusate Sodium (Senokot S Tab) 1 tab QAM PO 01/22/17 09:00 02/21/17 08:59 01/27/17 07:37 1 TAB Furosemide (Lasix Tab) 40 mg DAILY PO 01/24/17 09:00 02/23/17 08:59 01/27/17 07:37 40 MG Albuterol/ Ipratropium (Duoneb) 3 ml TIDR INH 01/24/17 21:00 02/23/17 20:59 01/27/17 19:20 3 ML Amoxicillin/ Clavulanate Potassium (Augmentin Tab) 500 mg BIDM PO 01/24/17 20:00 02/03/17 19:59 01/27/17 17:15 500 MG Lactobacillus Acidophilus (Floranex Tab) 4 tab TIDM PO 01/25/17 08:00 02/24/17 07:59 01/27/17 17:15 4 TAB Lorazepam (Ativan Tab) 0.25 mg Q8H PRN PO 01/26/17 18:45 02/25/17 18:44
[2017-01-28] VITALS (9 sets, daily range): BP systolic 103–144; BP diastolic 64–76; PULSE 80–115; TEMP 36.3–36.5; O2SAT 93–97
[2017-01-28] MEDS: ALBUT/IPRATROP 3MG/0.5MG NEB 3 ML VIAL INH SCH ×3 (07:08→19:08)
[2017-01-28 07:26] LABS: HEMATOCRIT 28.6 % (37-47); MEAN CELL VOLUME 93.2 fL (80-100); MEAN CORPUSCULAR HGB CONC 31.1 g/dl (32-36); PLATELET COUNT 358 K/uL (130-400); RED BLOOD COUNT 3.07 M/uL (4.2-5.4); WHITE BLOOD COUNT 17.89 K/uL (4.8-10.8)
[2017-01-28 07:38] LABS: INR 2.1 (0.9-1.1); PROTHROMBIN TIME (PATIENT) 22.9 SECONDS (9.0-12.0)
[2017-01-28 07:58] LABS: BUN/CREATININE RATIO 22.3 (10-20); CALCIUM 9.7 mg/dl (8.5-10.1); CREATININE 1.6 mg/dl (0.60-1.20); POTASSIUM 3.7 mmol/L (3.5-5.1)
[2017-01-28] MEDS: ASCORBIC ACID 500 MG TAB PO SCH (08:04)
[2017-01-28] MEDS: CALCIUM 600MG + VIT D 400 IU TAB PO SCH ×2 (08:04→17:43)
[2017-01-28] MEDS: AMOXICILLIN/CLAVULANATE TAB 500 MG TAB PO SCH ×2 (08:04→17:43)
[2017-01-28] MEDS: LACTOBACILLUS ACIDOPHILUS (FLORANEX) TAB PO SCH ×3 (08:04→17:43)
[2017-01-28] MEDS: FLUTICASONE/SALMETEROL 250/50 (ADVAIR) 14 PUFF/1 INHALER INH SCH ×2 (08:05→20:31)
[2017-01-28] MEDS: PANTOprazole SOD 40 MG TAB PO SCH ×2 (08:05→20:32)
[2017-01-28] MEDS: FUROSEMIDE 40 MG TAB PO SCH (08:05)
[2017-01-28] MEDS: FERROUS SULFATE 325 MG TAB PO SCH ×2 (08:05→20:33)
[2017-01-28] MEDS: PAROXETINE 20 MG TAB PO SCH (08:05)
[2017-01-28] MEDS: MAGNESIUM OXIDE 400 MG TAB PO SCH (08:05)
[2017-01-28] MEDS: SUCRALFATE 1 GM/10 ML UDC PO SCH ×4 (08:05→20:32)
[2017-01-28] MEDS: MULTIVITAMIN TAB PO SCH (08:05)
[2017-01-28] MEDS: DOCUSATE SODIUM/SENNA 50/8.6MG TAB PO SCH (08:06)
[2017-01-28] MEDS: CHOLECALCIFEROL 1000 INTER.UNIT TAB PO SCH (08:06)
[2017-01-28] MEDS: METOPROLOL SUCC 25MG EXT REL TAB PO SCH ×2 (08:07→20:32)
[2017-01-28] MEDS: OXYCODONE/ACETAMINOPHEN 5-325 TAB PO PRN (10:33)
--- NOTE | 2017-01-28 12:02 | Progress Note ---
Medicine Progress Note Date & Time of Visit: Jan 28, 2017 at 11:40 . Subjective No fever. No chest pain. Ongoing dyspnea on exertion. No significant cough. No nausea, vomiting, diarrhea. No urinary symptoms. Ongoing arthritic pain. . Objective Last 8 Hrs Date Time Temp Pulse Resp B/P (MAP) Pulse Ox O2 Delivery O2 Flow Rate FiO2 01/28/17 08:00 97 Room Air 01/28/17 07:15 36.3 80 20 136/72 (93) 97 01/28/17 07:08 88 16 97 Room Air Physical Exam: General- no acute distress Neck- + JVD Lungs- rales left base Heart- RRR, II/ sys murmur at base Abdomen- + BS, soft, nontender Extremities- 2+ pretibial edema, no calf tenderness Neuro- alert . Laboratory Results: Last 24 Hours Test 01/28/17 07:05 01/28/17 10:45 White Blood Count 17.89 K/uL Red Blood Count 3.07 M/uL Hemoglobin 8.9 g/dL Hematocrit 28.6 % Mean Corpuscular Volume 93.2 fL Mean Corpuscular Hemoglobin 29.0 pg Mean Corpuscular Hemoglobin Concent 31.1 g/dl RDW Standard Deviation 58.5 fL RDW Coefficient of Variation 17.5 % Platelet Count 358 K/uL Mean Platelet Volume 9.0 fL Prothrombin Time 22.9 SECONDS Prothromb Time International Ratio 2.1 Sodium Level 142 mmol/L Potassium Level 3.7 mmol/L Chloride Level 107 mmol/L Carbon Dioxide Level 24 mmol/L Anion Gap 11.0 mmol/L Blood Urea Nitrogen 36 mg/dl Creatinine 1.60 mg/dl Est Creatinine Clear Calc Drug Dose 22.9 ml/min Estimated GFR () 34.2 Estimated GFR (Non- 29.5 BUN/Creatinine Ratio 22.3 Random Glucose 131 mg/dl Calcium Level 9.7 mg/dl Stool Occult Blood POSITIVE Assessment & Plan SEPSIS Met criteria for sepsis per 2001 definition and current CMS guidelines. WBC = 15,000. Tachycardic. Serum lactate was 1.47. Hemodynamically stable. Blood cultures obtained and placed on broad spectrum antibiotic coverage with ceftriaxone. Source = UTI as discussed below. ALTERED MENTAL STATUS Probable encephalopathy secondary to sepsis / UTI. Improved. UTI Urine culture grew Enterococcus faecalis. Received IV vancomycin and ceftriaxone. Transitioned to oral therapy with amoxicillin / clavulanic acid. ELEVATED TROPONIN Probably due to UTI / sepsis. Doubt acute coronary syndrome. CORONARY ARTERY DISEASE No anginal symptoms. 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 No pulmonary edema on chest x-ray performed 01/25. Continue furosemide. Persistent lower extremity edema greater than baseline. Extra dose of furosemide this afternoon. AORTIC STENOSIS Status post TAVR. OBSTRUCTIVE LUNG DISEASE Continue Jaimee Richardson. HISTORY PULMONARY EMBOLISM Continue warfarin and titrate dose. CKD III / MYRTLE Serum creatinine on admission 1.7. Creatinine today = 1.6. Follow. ANEMIA Chronic. GI bleed in December; endoscopic evaluation not pursued due to multiple comorbidities. Hgb as low as 8.0. No gross GI bleeding at this time. Experiencing fatigued and dyspnea on exertion. Transfused 1 unit pRBC's 01/26. Hemoglobin today = 8.9. Follow. OSTEOARTHRITIS Seen by Ortho. Left knee and left shoulder injected with Marcaine and methylprednisolone. Continue prednisone. LEUKOCYTOSIS WBC yesterday was 20,530. Patient is afebrile and clinically stable. Leukocytosis may be secondary to joint infections with methylprednisolone. WBC today = 17,890. Follow. VTE PROPHYLAXIS Continue warfarin and titrate dose. DISPOSITION Functional status poor. Patient is committed to returning to her home, but now willing to consider inpatient rehabilitation. Case Management consulted. Internal Medicine follow-up with Dr. Myrna Inman. . Current Inpatient Medications: Current Inpatient Medications Medications (Trade) Dose Ordered Sig/Rosi Route Start Time Stop Time Status Last Admin Dose Admin Ondansetron HCl (Zofran Inj) 4 mg Q6H PRN IV 01/21/17 23:15 02/20/17 23:14 Acetaminophen (Tylenol Tab) 650 mg Q6 PRN PO 01/21/17 23:45 02/20/17 23:44 01/24/17 22:44 650 MG Calcium Carbonate (Tums Chew Tab) 500 mg BID PRN PO 01/21/17 23:45 02/20/17 23:44 Calcium/Vitamin D (Caltrate Plus Tab) 1 tab BIDM PO 01/22/17 07:30 02/21/17 07:59 01/28/17 08:04 1 TAB Ferrous Sulfate (Feosol Tab) 325 mg BID PO 01/22/17 09:00 02/21/17 08:59 01/28/17 08:05 325 MG Salmeterol Xinafoate/ Fluticasone (Advair Diskus 250/50 Inh) 1 puff BID INH 01/22/17 09:00 02/21/17 08:59 01/28/17 08:05 1 PUFF Lorazepam (Ativan Tab) 0.5 mg HS PRN PO 01/21/17 23:45 02/20/17 23:44 01/27/17 21:12 0.5 MG Magnesium Oxide (Mag-Ox Tab) 400 mg DAILY PO 01/22/17 09:00 02/21/17 08:59 01/28/17 08:05 400 MG Metoprolol Succinate (Toprol Xl Tab) 12.5 mg BID PO 01/22/17 09:00 02/21/17 08:59 01/28/17 08:07 12.5 MG Mirtazapine (Remeron Tab) 15 mg HS PO 01/22/17 21:00 02/21/17 20:59 01/27/17 20:48 15 MG Multivitamins (Multivitamin Tab) 1 tab DAILY PO 01/22/17 09:00 02/21/17 08:59 01/28/17 08:05 1 TAB Ondansetron HCl (Zofran Tab) 4 mg Q6 PRN PO 01/21/17 23:45 02/20/17 23:44 Future Hold Oxycodone/ Acetaminophen (Percocet 5-325mg Tab) 1 tab Q8H PRN PO 01/21/17 23:45 02/04/17 23:44 01/28/17 10:33 1 TAB Pantoprazole Sodium (Protonix Tab) 40 mg BID PO 01/22/17 09:00 02/21/17 08:59 01/28/17 08:05 40 MG Prednisone (PredniSONE TAB) 5 mg DAILY PO 01/22/17 09:00 02/21/17 08:59 01/28/17 08:05 5 MG Sucralfate (Carafate Susp) 1 gm QID PO 01/22/17 09:00 02/21/17 08:59 01/28/17 08:05 1 GM Ascorbic Acid (Vitamin C Tab) 500 mg DAILY PO 01/22/17 09:00 02/21/17 08:59 01/28/17 08:04 500 MG Cholecalciferol (Vitamin D Tab) 2,000 inter.unit DAILY PO 01/22/17 09:00 02/21/17 08:59 01/28/17 08:06 2,000 INTER.UNIT Paroxetine HCl (pAXil TAB) 40 mg DAILY PO 01/22/17 09:00 02/21/17 08:59 01/28/17 08:05 40 MG Albuterol/ Ipratropium (Duoneb) 3 ml Q4R PRN INH 01/22/17 01:30 02/21/17 01:29 Senna/Docusate Sodium (Senokot S Tab) 1 tab QAM PO 01/22/17 09:00 02/21/17 08:59 01/27/17 07:37 1 TAB Furosemide (Lasix Tab) 40 mg DAILY PO 01/24/17 09:00 02/23/17 08:59 01/28/17 08:05 40 MG Albuterol/ Ipratropium (Duoneb) 3 ml TIDR INH 01/24/17 21:00 02/23/17 20:59 01/28/17 07:08 3 ML Amoxicillin/ Clavulanate Potassium (Augmentin Tab) 500 mg BIDM PO 01/24/17 20:00 02/03/17 19:59 01/28/17 08:04 500 MG Lactobacillus Acidophilus (Floranex Tab) 4 tab TIDM PO 01/25/17 08:00 02/24/17 07:59 01/28/17 11:59 4 TAB Lorazepam (Ativan Tab) 0.25 mg Q8H PRN PO 01/26/17 18:45 02/25/17 18:44 Warfarin Sodium (Coumadin Tab) 2 mg DAILY@16 PO 01/28/17 16:00 02/27/17 15:59
[2017-01-28] MEDS ORDERED: FUROSEMIDE INJ 40 MG in SYRINGE 0 ML IV ONE (15:00)
[2017-01-28] MEDS ORDERED: POTASSIUM CHLORIDE 20 MEQ TABCR PO SCH (15:00)
[2017-01-28] MEDS: WARFARIN SOD 2 MG TAB PO SCH (15:44)
[2017-01-28] MEDS: MIRTAZAPINE TAB 15 MG TAB PO SCH (20:32)
[2017-01-29] VITALS (10 sets, daily range): BP systolic 120–156; BP diastolic 71–80; PULSE 79–96; TEMP 36.2–36.4; O2SAT 95–100
[2017-01-29 06:29] LABS: HEMATOCRIT 29.1 % (37-47); MEAN CELL VOLUME 94.2 fL (80-100); MEAN CORPUSCULAR HEMOGLOBIN 29.4 pg (25-34); MEAN CORPUSCULAR HGB CONC 31.3 g/dl (32-36); PLATELET COUNT 372 K/uL (130-400); RED BLOOD COUNT 3.09 M/uL (4.2-5.4); WHITE BLOOD COUNT 15.53 K/uL (4.8-10.8)
[2017-01-29 06:31] LABS: INR 1.9 (0.9-1.1); PROTHROMBIN TIME (PATIENT) 21.3 SECONDS (9.0-12.0)
[2017-01-29 06:49] LABS: CALCIUM 10.3 mg/dl (8.5-10.1)
[2017-01-29 07:09] LABS: BUN/CREATININE RATIO 26.2 (10-20); CREATININE 1.6 mg/dl (0.60-1.20); POTASSIUM 4.4 mmol/L (3.5-5.1)
[2017-01-29] MEDS: ALBUT/IPRATROP 3MG/0.5MG NEB 3 ML VIAL INH SCH ×3 (07:20→19:06)
[2017-01-29] MEDS: AMOXICILLIN/CLAVULANATE TAB 500 MG TAB PO SCH ×2 (07:57→16:51)
[2017-01-29] MEDS: LACTOBACILLUS ACIDOPHILUS (FLORANEX) TAB PO SCH ×3 (07:57→16:52)
[2017-01-29] MEDS: ASCORBIC ACID 500 MG TAB PO SCH (07:57)
[2017-01-29] MEDS: FERROUS SULFATE 325 MG TAB PO SCH ×2 (07:57→21:11)
[2017-01-29] MEDS: MULTIVITAMIN TAB PO SCH (07:57)
[2017-01-29] MEDS: CHOLECALCIFEROL 1000 INTER.UNIT TAB PO SCH (07:57)
[2017-01-29] MEDS: CALCIUM 600MG + VIT D 400 IU TAB PO SCH ×2 (07:57→16:51)
[2017-01-29] MEDS: PAROXETINE 20 MG TAB PO SCH (07:57)
[2017-01-29] MEDS: MAGNESIUM OXIDE 400 MG TAB PO SCH (07:57)
[2017-01-29] MEDS: SUCRALFATE 1 GM/10 ML UDC PO SCH ×4 (07:58→21:11)
[2017-01-29] MEDS: PANTOprazole SOD 40 MG TAB PO SCH ×2 (07:58→21:11)
[2017-01-29] MEDS: METOPROLOL SUCC 25MG EXT REL TAB PO SCH ×2 (07:58→21:11)
[2017-01-29] MEDS: FLUTICASONE/SALMETEROL 250/50 (ADVAIR) 14 PUFF/1 INHALER INH SCH ×2 (07:59→21:11)
[2017-01-29] MEDS: FUROSEMIDE 40 MG TAB PO SCH (08:39)
[2017-01-29] MEDS: OXYCODONE/ACETAMINOPHEN 5-325 TAB PO PRN ×2 (09:40→21:28)
--- NOTE | 2017-01-29 11:03 | DIAGNOSTIC IMAGING REPORT ---
TWO VIEW CHEST CLINICAL HISTORY: CHF. Left lower lobe density. FINDINGS: PA and lateral chest radiograph is are compared to study dated 01/25/2017. Correlation is made with chest CT dated 01/10/2016. The PA view is degraded by patient rotation. The heart is mildly enlarged and there is atherosclerotic calcification of the thoracic aorta. The pulmonary vasculature is noncongested. A stent projects over the heart. Chronic interstitial thickening is unchanged. There is left basilar atelectasis. No airspace consolidation or large pleural effusion is seen. There is no pneumothorax. Biapical scarring is observed. A hiatal hernia is again noted. The skeletal structures are osteopenic. There are healed right-sided rib fractures. Degenerative change and compression deformities are noted in the thoracic spine with associated hyperkyphosis. IMPRESSION: 1. Cardiac enlargement with no acute cardiopulmonary abnormality. 2. Large hiatal hernia with associated left basilar atelectasis. Electronically signed by: Williams Irizarry M.D. 01/29/2017 11:02 AM Dictated Date/Time: 01/29/2017 10:59 AM
[2017-01-29] MEDS: WARFARIN SOD 2 MG TAB PO SCH (16:51)
--- NOTE | 2017-01-29 19:02 | Progress Note ---
Medicine Progress Note Date & Time of Visit: Jan 29, 2017 at 16:10 . Subjective Ambulated with walker and assistance this morning. Did well as long as she paced herself. No fever. No chest pain. No cough. No nausea, vomiting. Had loose stools this morning. Voiding without difficulty. . Objective Last 8 Hrs Date Time Temp Pulse Resp B/P (MAP) Pulse Ox O2 Delivery O2 Flow Rate FiO2 01/29/17 16:01 36.2 87 18 120/72 (88) 98 Room Air 01/29/17 13:55 87 16 96 Room Air 01/29/17 11:22 95 Physical Exam: General- lying in bed, no acute distress Neck- + JVD Lungs- rales left base Heart- RRR, II/ sys murmur at base Abdomen- + BS, soft, nontender Extremities- 2+ pretibial edema, no calf tenderness Neuro- alert . Laboratory Results: Last 24 Hours Test 01/29/17 06:09 White Blood Count 15.53 K/uL Red Blood Count 3.09 M/uL Hemoglobin 9.1 g/dL Hematocrit 29.1 % Mean Corpuscular Volume 94.2 fL Mean Corpuscular Hemoglobin 29.4 pg Mean Corpuscular Hemoglobin Concent 31.3 g/dl RDW Standard Deviation 58.3 fL RDW Coefficient of Variation 17.1 % Platelet Count 372 K/uL Mean Platelet Volume 9.0 fL Nucleated RBC Absolute Count (auto) 0.09 K/uL Nucleated Red Blood Cells % 0.6 % Prothrombin Time 21.3 SECONDS Prothromb Time International Ratio 1.9 Sodium Level 143 mmol/L Potassium Level 4.4 mmol/L Chloride Level 109 mmol/L Carbon Dioxide Level 27 mmol/L Anion Gap 7.0 mmol/L Blood Urea Nitrogen 42 mg/dl Creatinine 1.60 mg/dl Est Creatinine Clear Calc Drug Dose 22.9 ml/min Estimated GFR () 34.2 Estimated GFR (Non- 29.5 BUN/Creatinine Ratio 26.2 Random Glucose 120 mg/dl Calcium Level 10.3 mg/dl Date/Time Source Procedure Growth Status 01/29/17 08:35 Stool C.difficile Toxin B Gene (PCR) - Final No C. difficile toxin B gene detected Complete Diagnostic Imaging: TWO VIEW CHEST 01/29/17 IMPRESSION: 1. Cardiac enlargement with no acute cardiopulmonary abnormality. 2. Large hiatal hernia with associated left basilar atelectasis. Electronically signed by: Williams Irizarry M.D. 01/29/2017 11:02 AM . Assessment & Plan SEPSIS Met criteria for sepsis per 2001 definition and current CMS guidelines. WBC = 15,000. Tachycardic. Serum lactate was 1.47. Hemodynamically stable. Blood cultures obtained and placed on broad spectrum antibiotic coverage with ceftriaxone. Source = UTI as discussed below. ALTERED MENTAL STATUS Probable encephalopathy secondary to sepsis / UTI. Improved. UTI Urine culture grew Enterococcus faecalis. Received IV vancomycin and ceftriaxone. Transitioned to oral therapy with amoxicillin / clavulanic acid - today is day # 7 of therapy. ELEVATED TROPONIN Serum troponin slightly elevated. Probably due to UTI / sepsis. Doubt acute coronary syndrome. CORONARY ARTERY DISEASE No anginal symptoms. 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 No pulmonary edema on today's chest x-ray. Continue furosemide. AORTIC STENOSIS Status post TAVR. OBSTRUCTIVE LUNG DISEASE Continue Jaimee Richardson. LLE ATELECTASIS Secondary to hiatal hernia. Incentive spirometry. HISTORY PULMONARY EMBOLISM Continue warfarin and titrate dose. CKD III / MYRTLE Serum creatinine on admission 1.7. Creatinine today = 1.6. Follow. ANEMIA Chronic. GI bleed in December; endoscopic evaluation not pursued due to multiple comorbidities. Hgb as low as 8.0. No gross GI bleeding at this time. Experiencing fatigued and dyspnea on exertion. Transfused 1 unit pRBC's 01/26. Hemoglobin today = 9.1. Follow. OSTEOARTHRITIS Seen by Ortho. Left knee and left shoulder injected with Marcaine and methylprednisolone. Continue prednisone. LOOSE STOOLS Negative for C diff. LEUKOCYTOSIS WBC yesterday was 20,530. Patient is afebrile and clinically stable. Leukocytosis may be secondary to joint infections with methylprednisolone. WBC today = 15,530.. Follow. VTE PROPHYLAXIS Continue warfarin and titrate dose. DISPOSITION Functional status poor. Patient is committed to returning to her home, but willing to consider inpatient rehabilitation. Case Management consulted. Internal Medicine follow-up with Dr. Myrna Inman. . Current Inpatient Medications: Current Inpatient Medications Medications (Trade) Dose Ordered Sig/Rosi Route Start Time Stop Time Status Last Admin Dose Admin Ondansetron HCl (Zofran Inj) 4 mg Q6H PRN IV 01/21/17 23:15 02/20/17 23:14 Acetaminophen (Tylenol Tab) 650 mg Q6 PRN PO 01/21/17 23:45 02/20/17 23:44 01/24/17 22:44 650 MG Calcium Carbonate (Tums Chew Tab) 500 mg BID PRN PO 01/21/17 23:45 02/20/17 23:44 Calcium/Vitamin D (Caltrate Plus Tab) 1 tab BIDM PO 01/22/17 07:30 02/21/17 07:59 01/29/17 16:51 1 TAB Ferrous Sulfate (Feosol Tab) 325 mg BID PO 01/22/17 09:00 02/21/17 08:59 01/29/17 07:57 325 MG Salmeterol Xinafoate/ Fluticasone (Advair Diskus 250/50 Inh) 1 puff BID INH 01/22/17 09:00 02/21/17 08:59 01/29/17 07:59 1 PUFF Lorazepam (Ativan Tab) 0.5 mg HS PRN PO 01/21/17 23:45 02/20/17 23:44 01/27/17 21:12 0.5 MG Magnesium Oxide (Mag-Ox Tab) 400 mg DAILY PO 01/22/17 09:00 02/21/17 08:59 01/29/17 07:57 400 MG Metoprolol Succinate (Toprol Xl Tab) 12.5 mg BID PO 01/22/17 09:00 02/21/17 08:59 01/29/17 07:58 12.5 MG Mirtazapine (Remeron Tab) 15 mg HS PO 01/22/17 21:00 02/21/17 20:59 01/28/17 20:32 15 MG Multivitamins (Multivitamin Tab) 1 tab DAILY PO 01/22/17 09:00 02/21/17 08:59 01/29/17 07:57 1 TAB Ondansetron HCl (Zofran Tab) 4 mg Q6 PRN PO 01/21/17 23:45 02/20/17 23:44 Future Hold Oxycodone/ Acetaminophen (Percocet 5-325mg Tab) 1 tab Q8H PRN PO 01/21/17 23:45 02/04/17 23:44 01/29/17 09:40 1 TAB Pantoprazole Sodium (Protonix Tab) 40 mg BID PO 01/22/17 09:00 02/21/17 08:59 01/29/17 07:58 40 MG Prednisone (PredniSONE TAB) 5 mg DAILY PO 01/22/17 09:00 02/21/17 08:59 01/29/17 07:57 5 MG Sucralfate (Carafate Susp) 1 gm QID PO 01/22/17 09:00 02/21/17 08:59 01/29/17 16:52 1 GM Ascorbic Acid (Vitamin C Tab) 500 mg DAILY PO 01/22/17 09:00 02/21/17 08:59 01/29/17 07:57 500 MG Cholecalciferol (Vitamin D Tab) 2,000 inter.unit DAILY PO 01/22/17 09:00 02/21/17 08:59 01/29/17 07:57 2,000 INTER.UNIT Paroxetine HCl (pAXil TAB) 40 mg DAILY PO 01/22/17 09:00 02/21/17 08:59 01/29/17 07:57 40 MG Albuterol/ Ipratropium (Duoneb) 3 ml Q4R PRN INH 01/22/17 01:30 02/21/17 01:29 Furosemide (Lasix Tab) 40 mg DAILY PO 01/24/17 09:00 02/23/17 08:59 01/29/17 08:39 40 MG Albuterol/ Ipratropium (Duoneb) 3 ml TIDR INH 01/24/17 21:00 02/23/17 20:59 01/29/17 13:55 3 ML Amoxicillin/ Clavulanate Potassium (Augmentin Tab) 500 mg BIDM PO 01/24/17 20:00 02/03/17 19:59 01/29/17 16:51 500 MG Lactobacillus Acidophilus (Floranex Tab) 4 tab TIDM PO 01/25/17 08:00 02/24/17 07:59 01/29/17 16:52 4 TAB Lorazepam (Ativan Tab) 0.25 mg Q8H PRN PO 01/26/17 18:45 02/25/17 18:44 Warfarin Sodium (Coumadin Tab) 2 mg DAILY@16 PO 01/28/17 16:00 02/27/17 15:59 01/29/17 16:51 2 MG
[2017-01-29] MEDS: MIRTAZAPINE TAB 15 MG TAB PO SCH (21:11)
[2017-01-29] MEDS: LORAZEPAM 0.5 MG TAB PO PRN (21:28)
[2017-01-30] VITALS (12 sets, daily range): BP systolic 103–161; BP diastolic 61–82; PULSE 80–92; TEMP 36.2–36.6; O2SAT 94–100
[2017-01-30 06:03] LABS: HEMATOCRIT 27.2 % (37-47); MEAN CELL VOLUME 94.8 fL (80-100); MEAN CORPUSCULAR HEMOGLOBIN 30.3 pg (25-34); MEAN PLATELET VOLUME 8.8 fL (7.4-10.4); PLATELET COUNT 316 K/uL (130-400); RED BLOOD COUNT 2.87 M/uL (4.2-5.4); WHITE BLOOD COUNT 9.75 K/uL (4.8-10.8)
[2017-01-30 06:23] LABS: INR 2.6 (0.9-1.1); PROTHROMBIN TIME (PATIENT) 29.2 SECONDS (9.0-12.0)
[2017-01-30 06:33] LABS: BUN/CREATININE RATIO 24.1 (10-20); CALCIUM 9.4 mg/dl (8.5-10.1); CREATININE 1.4 mg/dl (0.60-1.20); POTASSIUM 3.8 mmol/L (3.5-5.1)
[2017-01-30] MEDS: ALBUT/IPRATROP 3MG/0.5MG NEB 3 ML VIAL INH SCH ×3 (06:56→19:27)
[2017-01-30] MEDS: PAROXETINE 20 MG TAB PO SCH (07:35)
[2017-01-30] MEDS: FERROUS SULFATE 325 MG TAB PO SCH ×2 (07:35→21:22)
[2017-01-30] MEDS: METOPROLOL SUCC 25MG EXT REL TAB PO SCH ×2 (07:35→21:23)
[2017-01-30] MEDS: FUROSEMIDE 40 MG TAB PO SCH (07:36)
[2017-01-30] MEDS: CALCIUM 600MG + VIT D 400 IU TAB PO SCH ×2 (07:36→16:35)
[2017-01-30] MEDS: LACTOBACILLUS ACIDOPHILUS (FLORANEX) TAB PO SCH ×3 (07:36→16:35)
[2017-01-30] MEDS: MULTIVITAMIN TAB PO SCH (07:36)
[2017-01-30] MEDS: MAGNESIUM OXIDE 400 MG TAB PO SCH (07:36)
[2017-01-30] MEDS: CHOLECALCIFEROL 1000 INTER.UNIT TAB PO SCH (07:36)
[2017-01-30] MEDS: ASCORBIC ACID 500 MG TAB PO SCH (07:36)
[2017-01-30] MEDS: AMOXICILLIN/CLAVULANATE TAB 500 MG TAB PO SCH ×2 (07:36→16:35)
[2017-01-30] MEDS: PANTOprazole SOD 40 MG TAB PO SCH ×2 (07:36→21:22)
[2017-01-30] MEDS: FLUTICASONE/SALMETEROL 250/50 (ADVAIR) 14 PUFF/1 INHALER INH SCH ×2 (07:37→21:20)
[2017-01-30] MEDS: SUCRALFATE 1 GM/10 ML UDC PO SCH ×4 (07:37→21:20)
[2017-01-30] MEDS: OXYCODONE/ACETAMINOPHEN 5-325 TAB PO PRN ×2 (09:07→19:15)
[2017-01-30] MEDS: WARFARIN SOD 2 MG TAB PO SCH (16:00)
[2017-01-30] MEDS ORDERED: ACETAMINOPHEN 325 MG TAB PO ONE (17:30)
[2017-01-30] MEDS ORDERED: FUROSEMIDE INJ 40 MG in SYRINGE 0 ML IV SCH (17:30)
[2017-01-30] MEDS: MIRTAZAPINE TAB 15 MG TAB PO SCH (21:22)
--- NOTE | 2017-01-30 22:57 | Progress Note ---
Medicine Progress Note Date & Time of Visit: Jan 30, 2017 at 14:50 . Subjective No fever. No chest pain. More dyspneic on exertion today. No cough. No nausea or vomiting. Nursing staff reports loose dark stools. No dysuria. . Objective Last 8 Hrs Date Time Temp Pulse Resp B/P (MAP) Pulse Ox O2 Delivery O2 Flow Rate FiO2 01/30/17 20:01 36.5 86 18 131/70 100 01/30/17 19:27 84 16 99 Nasal Cannula 2.0 01/30/17 16:16 36.6 88 18 116/71 (86) 96 Room Air 01/30/17 16:00 96 Room Air Physical Exam: General- lying in bed, no acute distress Neck- + JVD Lungs- rales left base Heart- RRR, II/ sys murmur at base Abdomen- + BS, soft, nontender Extremities- 2+ pretibial edema, no calf tenderness Neuro- alert . Laboratory Results: Last 24 Hours Test 01/30/17 05:53 White Blood Count 9.75 K/uL Red Blood Count 2.87 M/uL Hemoglobin 8.7 g/dL Hematocrit 27.2 % Mean Corpuscular Volume 94.8 fL Mean Corpuscular Hemoglobin 30.3 pg Mean Corpuscular Hemoglobin Concent 32.0 g/dl RDW Standard Deviation 58.0 fL RDW Coefficient of Variation 16.8 % Platelet Count 316 K/uL Mean Platelet Volume 8.8 fL Nucleated RBC Absolute Count (auto) 0.13 K/uL Nucleated Red Blood Cells % 1.3 % Prothrombin Time 29.2 SECONDS Prothromb Time International Ratio 2.6 Sodium Level 145 mmol/L Potassium Level 3.8 mmol/L Chloride Level 110 mmol/L Carbon Dioxide Level 27 mmol/L Anion Gap 8.0 mmol/L Blood Urea Nitrogen 34 mg/dl Creatinine 1.40 mg/dl Est Creatinine Clear Calc Drug Dose 25.9 ml/min Estimated GFR () 40.2 Estimated GFR (Non- 34.7 BUN/Creatinine Ratio 24.1 Random Glucose 101 mg/dl Calcium Level 9.4 mg/dl Assessment & Plan SEPSIS Met criteria for sepsis per 2001 definition and current CMS guidelines. WBC = 15,000. Tachycardic. Serum lactate was 1.47. Hemodynamically stable. Blood cultures obtained and placed on broad spectrum antibiotic coverage with ceftriaxone. Source = UTI as discussed below. ALTERED MENTAL STATUS Probable encephalopathy secondary to sepsis / UTI. Improved. UTI Urine culture grew Enterococcus faecalis. Received IV vancomycin and ceftriaxone. Transitioned to oral therapy with amoxicillin / clavulanic acid - today is day # 8 /10 of therapy. ELEVATED TROPONIN Serum troponin slightly elevated. Probably due to UTI / sepsis. Doubt acute coronary syndrome. CORONARY ARTERY DISEASE No anginal symptoms. 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 No pulmonary edema on chest x-ray 01/29 Continue furosemide. AORTIC STENOSIS Status post TAVR. OBSTRUCTIVE LUNG DISEASE Continue Jaimee Richardson. LLE ATELECTASIS Rales left base. CT demonstrated LLL atelectasis secondary to hiatal hernia. Incentive spirometry. HISTORY PULMONARY EMBOLISM Continue warfarin and titrate dose. CKD III / MYRTLE Serum creatinine on admission 1.7. Creatinine today = 1.4. Follow. ANEMIA Chronic. GI bleed in December; endoscopic evaluation not pursued due to multiple comorbidities. Hgb as low as 8.0. Stools heme positive. Seems to become more dyspneic with hemoglobin less than 9. Once again, best not to pursue endoscopic evaluation due to high risk. Transfused 1 unit pRBC's 01/26. Hemoglobin today = 8.7. Transfuse another unit of packed RBCs today. Continue iron supplementation. Follow H/H. OSTEOARTHRITIS Seen by Ortho. Left knee and left shoulder injected with Marcaine and methylprednisolone. Continue prednisone. LOOSE STOOLS Negative for C diff. LEUKOCYTOSIS WBC yesterday was 20,530. Patient is afebrile and clinically stable. Leukocytosis may be secondary to joint infections with methylprednisolone. WBC today = 9750. Follow. VTE PROPHYLAXIS Continue warfarin and titrate dose. DISPOSITION Functional status poor. Patient is committed to returning to her home, but willing to consider inpatient rehabilitation. Case Management consulted. Internal Medicine follow-up with Dr. Myrna Inman. . Current Inpatient Medications: Current Inpatient Medications Medications (Trade) Dose Ordered Sig/Rosi Route Start Time Stop Time Status Last Admin Dose Admin Ondansetron HCl (Zofran Inj) 4 mg Q6H PRN IV 01/21/17 23:15 02/20/17 23:14 Acetaminophen (Tylenol Tab) 650 mg Q6 PRN PO 01/21/17 23:45 02/20/17 23:44 01/24/17 22:44 650 MG Calcium Carbonate (Tums Chew Tab) 500 mg BID PRN PO 01/21/17 23:45 02/20/17 23:44 Calcium/Vitamin D (Caltrate Plus Tab) 1 tab BIDM PO 01/22/17 07:30 02/21/17 07:59 01/30/17 16:35 1 TAB Ferrous Sulfate (Feosol Tab) 325 mg BID PO 01/22/17 09:00 02/21/17 08:59 01/30/17 21:22 325 MG Salmeterol Xinafoate/ Fluticasone (Advair Diskus 250/50 Inh) 1 puff BID INH 01/22/17 09:00 02/21/17 08:59 01/30/17 21:20 1 PUFF Lorazepam (Ativan Tab) 0.5 mg HS PRN PO 01/21/17 23:45 02/20/17 23:44 01/29/17 21:28 0.5 MG Magnesium Oxide (Mag-Ox Tab) 400 mg DAILY PO 01/22/17 09:00 02/21/17 08:59 01/30/17 07:36 400 MG Metoprolol Succinate (Toprol Xl Tab) 12.5 mg BID PO 01/22/17 09:00 02/21/17 08:59 01/30/17 21:23 12.5 MG Mirtazapine (Remeron Tab) 15 mg HS PO 01/22/17 21:00 02/21/17 20:59 01/30/17 21:22 15 MG Multivitamins (Multivitamin Tab) 1 tab DAILY PO 01/22/17 09:00 02/21/17 08:59 01/30/17 07:36 1 TAB Ondansetron HCl (Zofran Tab) 4 mg Q6 PRN PO 01/21/17 23:45 02/20/17 23:44 Future Hold Oxycodone/ Acetaminophen (Percocet 5-325mg Tab) 1 tab Q8H PRN PO 01/21/17 23:45 02/04/17 23:44 01/30/17 19:15 1 TAB Pantoprazole Sodium (Protonix Tab) 40 mg BID PO 01/22/17 09:00 02/21/17 08:59 01/30/17 21:22 40 MG Prednisone (PredniSONE TAB) 5 mg DAILY PO 01/22/17 09:00 02/21/17 08:59 01/30/17 07:36 5 MG Sucralfate (Carafate Susp) 1 gm QID PO 01/22/17 09:00 02/21/17 08:59 01/30/17 21:20 1 GM Ascorbic Acid (Vitamin C Tab) 500 mg DAILY PO 01/22/17 09:00 02/21/17 08:59 01/30/17 07:36 500 MG Cholecalciferol (Vitamin D Tab) 2,000 inter.unit DAILY PO 01/22/17 09:00 02/21/17 08:59 01/30/17 07:36 2,000 INTER.UNIT Paroxetine HCl (pAXil TAB) 40 mg DAILY PO 01/22/17 09:00 02/21/17 08:59 01/30/17 07:35 40 MG Albuterol/ Ipratropium (Duoneb) 3 ml Q4R PRN INH 01/22/17 01:30 02/21/17 01:29 Furosemide (Lasix Tab) 40 mg DAILY PO 01/24/17 09:00 02/23/17 08:59 01/30/17 07:36 40 MG Albuterol/ Ipratropium (Duoneb) 3 ml TIDR INH 01/24/17 21:00 02/23/17 20:59 01/30/17 19:27 3 ML Amoxicillin/ Clavulanate Potassium (Augmentin Tab) 500 mg BIDM PO 01/24/17 20:00 02/03/17 19:59 01/30/17 16:35 500 MG Lactobacillus Acidophilus (Floranex Tab) 4 tab TIDM PO 01/25/17 08:00 02/24/17 07:59 01/30/17 16:35 4 TAB Lorazepam (Ativan Tab) 0.25 mg Q8H PRN PO 01/26/17 18:45 02/25/17 18:44 Warfarin Sodium (Coumadin Tab) 2 mg DAILY@16 PO 01/28/17 16:00 02/27/17 15:59 01/29/17 16:51 2 MG Furosemide 40 mg/ Syringe 4 ml @ 4 mls/min TODAY@1730 IV 01/30/17 17:30 01/30/17 23:59 6/30/17 20:06 4 MLS/MIN
[2017-01-30] MEDS: LORAZEPAM 0.5 MG TAB PO PRN (23:54)
[2017-01-31] VITALS (7 sets, daily range): BP systolic 110–147; BP diastolic 64–80; PULSE 72–98; TEMP 36.3–36.6; O2SAT 95–100
[2017-01-31] MEDS: ALBUT/IPRATROP 3MG/0.5MG NEB 3 ML VIAL INH SCH ×3 (07:10→19:05)
[2017-01-31 07:21] LABS: HEMATOCRIT 35.2 % (37-47); MEAN CELL VOLUME 93.1 fL (80-100); MEAN CORPUSCULAR HEMOGLOBIN 28.6 pg (25-34); MEAN CORPUSCULAR HGB CONC 30.7 g/dl (32-36); MEAN PLATELET VOLUME 9.1 fL (7.4-10.4); PLATELET COUNT 340 K/uL (130-400); RED BLOOD COUNT 3.78 M/uL (4.2-5.4); WHITE BLOOD COUNT 9.62 K/uL (4.8-10.8)
[2017-01-31 07:32] LABS: INR 2.9 (0.9-1.1); PROTHROMBIN TIME (PATIENT) 32.3 SECONDS (9.0-12.0)
[2017-01-31 07:49] LABS: BUN/CREATININE RATIO 22.5 (10-20); CALCIUM 9.8 mg/dl (8.5-10.1); CREATININE 1.4 mg/dl (0.60-1.20); POTASSIUM 3.4 mmol/L (3.5-5.1)
[2017-01-31] MEDS: FLUTICASONE/SALMETEROL 250/50 (ADVAIR) 14 PUFF/1 INHALER INH SCH ×2 (07:49→20:34)
[2017-01-31] MEDS: SUCRALFATE 1 GM/10 ML UDC PO SCH ×4 (07:49→20:38)
[2017-01-31] MEDS: FERROUS SULFATE 325 MG TAB PO SCH ×2 (07:49→20:37)
[2017-01-31] MEDS: PAROXETINE 20 MG TAB PO SCH (07:50)
[2017-01-31] MEDS: AMOXICILLIN/CLAVULANATE TAB 500 MG TAB PO SCH (07:50)
[2017-01-31] MEDS: LACTOBACILLUS ACIDOPHILUS (FLORANEX) TAB PO SCH ×3 (07:51→16:46)
[2017-01-31] MEDS: MULTIVITAMIN TAB PO SCH (07:52)
[2017-01-31] MEDS: CHOLECALCIFEROL 1000 INTER.UNIT TAB PO SCH (07:54)
[2017-01-31] MEDS: ASCORBIC ACID 500 MG TAB PO SCH (07:56)
[2017-01-31] MEDS: PANTOprazole SOD 40 MG TAB PO SCH ×2 (07:57→20:37)
[2017-01-31] MEDS: FUROSEMIDE 40 MG TAB PO SCH (07:58)
[2017-01-31] MEDS: CALCIUM 600MG + VIT D 400 IU TAB PO SCH ×2 (07:58→16:44)
[2017-01-31] MEDS: MAGNESIUM OXIDE 400 MG TAB PO SCH (07:58)
[2017-01-31] MEDS: METOPROLOL SUCC 25MG EXT REL TAB PO SCH ×2 (08:10→20:35)
[2017-01-31] MEDS ORDERED: POTASSIUM CHLORIDE 20 MEQ TABCR PO ONE (09:45)
[2017-01-31] MEDS ORDERED: DIPHENOXYLATE/ATROPINE 2.5/0.025MG TAB PO ONE (13:00)
[2017-01-31] MEDS: OXYCODONE/ACETAMINOPHEN 5-325 TAB PO PRN (16:44)
[2017-01-31] MEDS: MIRTAZAPINE TAB 15 MG TAB PO SCH (20:37)
[2017-01-31] MEDS: ACETAMINOPHEN 325 MG TAB PO PRN (20:47)
[2017-01-31] MEDS: LORAZEPAM 0.5 MG TAB PO PRN (20:47)
--- NOTE | 2017-01-31 22:50 | Progress Note ---
Medicine Progress Note Date & Time of Visit: Jan 31, 2017 at 11:10 . Subjective Afebrile. No CP. Less SOB after transfusion. No nausea or vomiting. Frequent loose stools. No dysuria. . Objective Last 8 Hrs Date Time Temp Pulse Resp B/P (MAP) Pulse Ox O2 Delivery O2 Flow Rate FiO2 01/31/17 20:48 98 135/80 (98) 01/31/17 19:05 92 16 96 Room Air 01/31/17 15:43 36.6 92 18 119/72 (88) 95 Room Air Physical Exam: General- no acute distress Neck- + JVD Lungs- rales left base Heart- RRR, II/ sys murmur at base Abdomen- + BS, soft, nontender Extremities- 2+ pretibial edema (slightly greater on left), no calf tenderness Neuro- alert . Laboratory Results: Last 24 Hours Test 01/31/17 06:55 White Blood Count 9.62 K/uL Red Blood Count 3.78 M/uL Hemoglobin 10.8 g/dL Hematocrit 35.2 % Mean Corpuscular Volume 93.1 fL Mean Corpuscular Hemoglobin 28.6 pg Mean Corpuscular Hemoglobin Concent 30.7 g/dl RDW Standard Deviation 56.6 fL RDW Coefficient of Variation 16.8 % Platelet Count 340 K/uL Mean Platelet Volume 9.1 fL Prothrombin Time 32.3 SECONDS Prothromb Time International Ratio 2.9 Sodium Level 143 mmol/L Potassium Level 3.4 mmol/L Chloride Level 105 mmol/L Carbon Dioxide Level 32 mmol/L Anion Gap 6.0 mmol/L Blood Urea Nitrogen 32 mg/dl Creatinine 1.40 mg/dl Est Creatinine Clear Calc Drug Dose 25.9 ml/min Estimated GFR () 40.2 Estimated GFR (Non- 34.7 BUN/Creatinine Ratio 22.5 Random Glucose 90 mg/dl Calcium Level 9.8 mg/dl Assessment & Plan SEPSIS Met criteria for sepsis per 2001 definition and current CMS guidelines. WBC = 15,000. Tachycardic. Serum lactate was 1.47. Hemodynamically stable. Blood cultures obtained and placed on broad spectrum antibiotic coverage with ceftriaxone. Source = UTI as discussed below. ALTERED MENTAL STATUS Probable encephalopathy secondary to sepsis / UTI. Resolved. UTI Urine culture grew Enterococcus faecalis. Received IV vancomycin and ceftriaxone. Transitioned to oral therapy with amoxicillin / clavulanic acid. Received 9 days of treatment. ELEVATED TROPONIN Serum troponin slightly elevated. Probably due to UTI / sepsis. Doubt acute coronary syndrome. CORONARY ARTERY DISEASE No anginal symptoms. 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 No pulmonary edema on chest x-ray 01/29 Continue furosemide. AORTIC STENOSIS Status post TAVR. OBSTRUCTIVE LUNG DISEASE Continue Advair, Duoneameya. LLE ATELECTASIS Rales left base. CT demonstrated LLL atelectasis secondary to hiatal hernia. Incentive spirometry. HISTORY PULMONARY EMBOLISM Continue warfarin and titrate dose. CKD III / MYRTLE Serum creatinine on admission 1.7. Creatinine today = 1.4. Follow. ANEMIA Chronic. GI bleed in December; endoscopic evaluation not pursued due to multiple comorbidities. Hgb as low as 8.0. Stools heme positive. Seems to become more dyspneic with hemoglobin less than 9. Once again, best not to pursue endoscopic evaluation due to high risk. Transfused 2 units pRBC's. Hemoglobin today = 10.8. Continue iron supplementation. Follow H/H. OSTEOARTHRITIS Seen by Ortho. Left knee and left shoulder injected with Marcaine and methylprednisolone. Continue prednisone. LOOSE STOOLS Negative for C diff on 01/29. LEUKOCYTOSIS WBC yesterday was 20,530. Patient is afebrile and clinically stable. Leukocytosis may be secondary to joint infections with methylprednisolone. WBC today = 9620. VTE PROPHYLAXIS Continue warfarin and titrate dose. DISPOSITION Functional status poor. Patient is committed to returning to her home, but willing to consider inpatient rehabilitation. Case Management consulted. Internal Medicine follow-up with Dr. Myrna Inman. . Current Inpatient Medications: Current Inpatient Medications Medications (Trade) Dose Ordered Sig/Rosi Route Start Time Stop Time Status Last Admin Dose Admin Ondansetron HCl (Zofran Inj) 4 mg Q6H PRN IV 01/21/17 23:15 02/20/17 23:14 Acetaminophen (Tylenol Tab) 650 mg Q6 PRN PO 01/21/17 23:45 02/20/17 23:44 01/31/17 20:47 650 MG Calcium Carbonate (Tums Chew Tab) 500 mg BID PRN PO 01/21/17 23:45 02/20/17 23:44 Calcium/Vitamin D (Caltrate Plus Tab) 1 tab BIDM PO 01/22/17 07:30 02/21/17 07:59 01/31/17 16:44 1 TAB Ferrous Sulfate (Feosol Tab) 325 mg BID PO 01/22/17 09:00 02/21/17 08:59 01/31/17 20:37 325 MG Salmeterol Xinafoate/ Fluticasone (Advair Diskus 250/50 Inh) 1 puff BID INH 01/22/17 09:00 02/21/17 08:59 01/31/17 20:34 1 PUFF Lorazepam (Ativan Tab) 0.5 mg HS PRN PO 01/21/17 23:45 02/20/17 23:44 01/31/17 20:47 0.5 MG Magnesium Oxide (Mag-Ox Tab) 400 mg DAILY PO 01/22/17 09:00 02/21/17 08:59 01/31/17 07:58 400 MG Metoprolol Succinate (Toprol Xl Tab) 12.5 mg BID PO 01/22/17 09:00 02/21/17 08:59 01/31/17 20:35 12.5 MG Mirtazapine (Remeron Tab) 15 mg HS PO 01/22/17 21:00 02/21/17 20:59 01/31/17 20:37 15 MG Multivitamins (Multivitamin Tab) 1 tab DAILY PO 01/22/17 09:00 02/21/17 08:59 01/31/17 07:52 1 TAB Ondansetron HCl (Zofran Tab) 4 mg Q6 PRN PO 01/21/17 23:45 02/20/17 23:44 Future Hold Oxycodone/ Acetaminophen (Percocet 5-325mg Tab) 1 tab Q8H PRN PO 01/21/17 23:45 02/04/17 23:44 01/31/17 16:44 1 TAB Pantoprazole Sodium (Protonix Tab) 40 mg BID PO 01/22/17 09:00 02/21/17 08:59 01/31/17 20:37 40 MG Prednisone (PredniSONE TAB) 5 mg DAILY PO 01/22/17 09:00 02/21/17 08:59 01/31/17 07:51 5 MG Sucralfate (Carafate Susp) 1 gm QID PO 01/22/17 09:00 02/21/17 08:59 01/31/17 20:38 1 GM Ascorbic Acid (Vitamin C Tab) 500 mg DAILY PO 01/22/17 09:00 02/21/17 08:59 01/31/17 07:56 500 MG Cholecalciferol (Vitamin D Tab) 2,000 inter.unit DAILY PO 01/22/17 09:00 02/21/17 08:59 01/31/17 07:54 2,000 INTER.UNIT Paroxetine HCl (pAXil TAB) 40 mg DAILY PO 01/22/17 09:00 02/21/17 08:59 01/31/17 07:50 40 MG Albuterol/ Ipratropium (Duoneb) 3 ml Q4R PRN INH 01/22/17 01:30 02/21/17 01:29 Furosemide (Lasix Tab) 40 mg DAILY PO 01/24/17 09:00 02/23/17 08:59 01/31/17 07:58 40 MG Albuterol/ Ipratropium (Duoneb) 3 ml TIDR INH 01/24/17 21:00 02/23/17 20:59 01/31/17 19:05 3 ML Lactobacillus Acidophilus (Floranex Tab) 4 tab TIDM PO 01/25/17 08:00 02/24/17 07:59 01/31/17 16:46 4 TAB Lorazepam (Ativan Tab) 0.25 mg Q8H PRN PO 01/26/17 18:45 02/25/17 18:44 Warfarin Sodium (Coumadin Tab) 2 mg DAILY@16 PO 01/28/17 16:00 02/27/17 15:59 Future Hold 01/29/17 16:51 2 MG
[2017-02-01] VITALS (7 sets, daily range): BP systolic 118–154; BP diastolic 70–80; PULSE 75–95; TEMP 36.3–36.5; O2SAT 93–97
[2017-02-01] MEDS: OXYCODONE/ACETAMINOPHEN 5-325 TAB PO PRN ×2 (05:33→20:31)
[2017-02-01 06:50] LABS: MEAN CELL VOLUME 92.7 fL (80-100); MEAN CORPUSCULAR HEMOGLOBIN 30.1 pg (25-34); MEAN CORPUSCULAR HGB CONC 32.4 g/dl (32-36); PLATELET COUNT 311 K/uL (130-400); RED BLOOD COUNT 3.56 M/uL (4.2-5.4)
[2017-02-01 06:58] LABS: INR 2.1 (0.9-1.1); PROTHROMBIN TIME (PATIENT) 23.5 SECONDS (9.0-12.0)
[2017-02-01] MEDS: ALBUT/IPRATROP 3MG/0.5MG NEB 3 ML VIAL INH SCH ×3 (07:17→19:20)
[2017-02-01 07:24] LABS: BUN/CREATININE RATIO 21.4 (10-20); CALCIUM 9.8 mg/dl (8.5-10.1); CREATININE 1.3 mg/dl (0.60-1.20); POTASSIUM 3.3 mmol/L (3.5-5.1)
[2017-02-01] MEDS: PANTOprazole SOD 40 MG TAB PO SCH ×2 (07:56→20:28)
[2017-02-01] MEDS: POTASSIUM CHLORIDE 20 MEQ TABCR PO SCH ×2 (07:56→20:28)
[2017-02-01] MEDS: LACTOBACILLUS ACIDOPHILUS (FLORANEX) TAB PO SCH ×3 (07:57→16:11)
[2017-02-01] MEDS: FLUTICASONE/SALMETEROL 250/50 (ADVAIR) 14 PUFF/1 INHALER INH SCH ×2 (07:57→20:26)
[2017-02-01] MEDS: FERROUS SULFATE 325 MG TAB PO SCH ×2 (07:57→20:27)
[2017-02-01] MEDS: SUCRALFATE 1 GM/10 ML UDC PO SCH ×4 (07:58→20:26)
[2017-02-01] MEDS: PAROXETINE 20 MG TAB PO SCH (07:58)
[2017-02-01] MEDS: METOPROLOL SUCC 25MG EXT REL TAB PO SCH ×2 (07:59→20:30)
[2017-02-01] MEDS: CHOLECALCIFEROL 1000 INTER.UNIT TAB PO SCH (08:00)
[2017-02-01] MEDS: MAGNESIUM OXIDE 400 MG TAB PO SCH (08:01)
[2017-02-01] MEDS: ASCORBIC ACID 500 MG TAB PO SCH (08:01)
[2017-02-01] MEDS: FUROSEMIDE 40 MG TAB PO SCH (08:02)
[2017-02-01] MEDS: MULTIVITAMIN TAB PO SCH (08:02)
[2017-02-01] MEDS: CALCIUM 600MG + VIT D 400 IU TAB PO SCH ×2 (08:04→16:12)
--- NOTE | 2017-02-01 17:10 | Progress Note ---
Medicine Progress Note Date & Time of Visit: Feb 01, 2017 at 15:45 . Subjective No fever. No chest pain. Chronic dyspnea on exertion. No nausea or vomiting. No BM's today. . Objective Last 8 Hrs Date Time Temp Pulse Resp B/P (MAP) Pulse Ox O2 Delivery O2 Flow Rate FiO2 02/01/17 15:42 36.3 90 18 154/80 (104) 97 Room Air 02/01/17 14:14 95 16 97 Room Air Physical Exam: General- lying in bed, no acute distress Neck- + JVD Lungs- rales left base Heart- RRR, II/ sys murmur at base Abdomen- + BS, soft, nontender Extremities- 2+ pretibial edema (slightly greater on left), no calf tenderness Neuro- alert . Laboratory Results: Last 24 Hours Test 02/01/17 06:31 White Blood Count 9.00 K/uL Red Blood Count 3.56 M/uL Hemoglobin 10.7 g/dL Hematocrit 33.0 % Mean Corpuscular Volume 92.7 fL Mean Corpuscular Hemoglobin 30.1 pg Mean Corpuscular Hemoglobin Concent 32.4 g/dl RDW Standard Deviation 55.9 fL RDW Coefficient of Variation 16.6 % Platelet Count 311 K/uL Mean Platelet Volume 9.0 fL Prothrombin Time 23.5 SECONDS Prothromb Time International Ratio 2.1 Sodium Level 143 mmol/L Potassium Level 3.3 mmol/L Chloride Level 105 mmol/L Carbon Dioxide Level 31 mmol/L Anion Gap 7.0 mmol/L Blood Urea Nitrogen 28 mg/dl Creatinine 1.30 mg/dl Est Creatinine Clear Calc Drug Dose 27.9 ml/min Estimated GFR () 43.9 Estimated GFR (Non- 37.9 BUN/Creatinine Ratio 21.4 Random Glucose 92 mg/dl Calcium Level 9.8 mg/dl Assessment & Plan SEPSIS Met criteria for sepsis per 2001 definition and current CMS guidelines. WBC = 15,000. Tachycardic. Serum lactate was 1.47. Hemodynamically stable. Blood cultures obtained and placed on broad spectrum antibiotic coverage with ceftriaxone. Source = UTI as discussed below. ALTERED MENTAL STATUS Probable encephalopathy secondary to sepsis / UTI. Resolved. UTI Urine culture grew Enterococcus faecalis. Received IV vancomycin and ceftriaxone. Transitioned to oral therapy with amoxicillin / clavulanic acid. Received 9 days of treatment. ELEVATED TROPONIN Serum troponin slightly elevated. Probably due to UTI / sepsis. Doubt acute coronary syndrome. CORONARY ARTERY DISEASE No anginal symptoms. 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 No pulmonary edema on chest x-ray 01/29 Continue furosemide. AORTIC STENOSIS Status post TAVR. OBSTRUCTIVE LUNG DISEASE Continue Jaimee Richardson. LLE ATELECTASIS Persistent rales left base. CT demonstrated LLL atelectasis secondary to hiatal hernia. Incentive spirometry. HISTORY PULMONARY EMBOLISM Continue warfarin and titrate dose. CKD III / MYRTLE Serum creatinine on admission 1.7. Creatinine today = 1.3. Follow. ANEMIA Chronic. GI bleed in December; endoscopic evaluation not pursued due to multiple comorbidities. Hgb as low as 8.0. Stools heme positive. Seems to become more dyspneic with hemoglobin less than 9. Once again, best not to pursue endoscopic evaluation due to high risk. Transfused 2 units pRBC's. Hemoglobin today = 10.7. Continue iron supplementation. Follow H/H. OSTEOARTHRITIS Seen by Ortho. Left knee and left shoulder injected with Marcaine and methylprednisolone. Continue prednisone. LOOSE STOOLS Frequent loose stools. Negative for C diff on 01/29. Recheck C diff if loose stools recur. LEUKOCYTOSIS WBC 01/27 was 20,530. Patient was afebrile and clinically stable. Leukocytosis probably secondary to joint infections with methylprednisolone. WBC today = 9000. VTE PROPHYLAXIS Continue warfarin and titrate dose. DISPOSITION Functional status poor. Patient is committed to returning to her home, but willing to consider inpatient rehabilitation. Case Management consulted. Internal Medicine follow-up with Dr. Myrna Inman. . Consultants: Orthopedics . Procedures: CT head IV fluids IV meds transfusion 2 units pRBC's methylprednisolone injections left knee and left shoulder 01/24 PT OT . Current Inpatient Medications: Current Inpatient Medications Medications (Trade) Dose Ordered Sig/Rosi Route Start Time Stop Time Status Last Admin Dose Admin Ondansetron HCl (Zofran Inj) 4 mg Q6H PRN IV 01/21/17 23:15 02/20/17 23:14 Acetaminophen (Tylenol Tab) 650 mg Q6 PRN PO 01/21/17 23:45 02/20/17 23:44 01/31/17 20:47 650 MG Calcium Carbonate (Tums Chew Tab) 500 mg BID PRN PO 01/21/17 23:45 02/20/17 23:44 Calcium/Vitamin D (Caltrate Plus Tab) 1 tab BIDM PO 01/22/17 07:30 02/21/17 07:59 02/01/17 16:12 1 TAB Ferrous Sulfate (Feosol Tab) 325 mg BID PO 01/22/17 09:00 02/21/17 08:59 02/01/17 07:57 325 MG Salmeterol Xinafoate/ Fluticasone (Advair Diskus 250/50 Inh) 1 puff BID INH 01/22/17 09:00 02/21/17 08:59 02/01/17 07:57 1 PUFF Lorazepam (Ativan Tab) 0.5 mg HS PRN PO 01/21/17 23:45 02/20/17 23:44 01/31/17 20:47 0.5 MG Magnesium Oxide (Mag-Ox Tab) 400 mg DAILY PO 01/22/17 09:00 02/21/17 08:59 02/01/17 08:01 400 MG Metoprolol Succinate (Toprol Xl Tab) 12.5 mg BID PO 01/22/17 09:00 02/21/17 08:59 02/01/17 07:59 12.5 MG Mirtazapine (Remeron Tab) 15 mg HS PO 01/22/17 21:00 02/21/17 20:59 01/31/17 20:37 15 MG Multivitamins (Multivitamin Tab) 1 tab DAILY PO 01/22/17 09:00 02/21/17 08:59 02/01/17 08:02 1 TAB Ondansetron HCl (Zofran Tab) 4 mg Q6 PRN PO 01/21/17 23:45 02/20/17 23:44 Future Hold Oxycodone/ Acetaminophen (Percocet 5-325mg Tab) 1 tab Q8H PRN PO 01/21/17 23:45 02/04/17 23:44 02/01/17 05:33 1 TAB Pantoprazole Sodium (Protonix Tab) 40 mg BID PO 01/22/17 09:00 02/21/17 08:59 02/01/17 07:56 40 MG Prednisone (PredniSONE TAB) 5 mg DAILY PO 01/22/17 09:00 02/21/17 08:59 02/01/17 08:00 5 MG Sucralfate (Carafate Susp) 1 gm QID PO 01/22/17 09:00 02/21/17 08:59 02/01/17 16:11 1 GM Ascorbic Acid (Vitamin C Tab) 500 mg DAILY PO 01/22/17 09:00 02/21/17 08:59 02/01/17 08:01 500 MG Cholecalciferol (Vitamin D Tab) 2,000 inter.unit DAILY PO 01/22/17 09:00 02/21/17 08:59 02/01/17 08:00 2,000 INTER.UNIT Paroxetine HCl (pAXil TAB) 40 mg DAILY PO 01/22/17 09:00 02/21/17 08:59 02/01/17 07:58 40 MG Albuterol/ Ipratropium (Duoneb) 3 ml Q4R PRN INH 01/22/17 01:30 02/21/17 01:29 Furosemide (Lasix Tab) 40 mg DAILY PO 01/24/17 09:00 02/23/17 08:59 02/01/17 08:02 40 MG Albuterol/ Ipratropium (Duoneb) 3 ml TIDR INH 01/24/17 21:00 02/23/17 20:59 02/01/17 14:14 3 ML Lactobacillus Acidophilus (Floranex Tab) 4 tab TIDM PO 01/25/17 08:00 02/24/17 07:59 02/01/17 16:11 4 TAB Lorazepam (Ativan Tab) 0.25 mg Q8H PRN PO 01/26/17 18:45 02/25/17 18:44 Warfarin Sodium (Coumadin Tab) 2 mg DAILY@16 PO 01/28/17 16:00 02/27/17 15:59 Future Hold 01/29/17 16:51 2 MG Potassium Chloride (Klor-Con Tab) 20 meq BID PO 02/01/17 09:00 03/03/17 08:59 02/01/17 07:56 20 MEQ
[2017-02-01] MEDS: MIRTAZAPINE TAB 15 MG TAB PO SCH (20:29)
[2017-02-01] MEDS: LORAZEPAM 0.5 MG TAB PO PRN (21:21)
[2017-02-02 07:07] VITALS: PULSE 87; O2SAT 95
[2017-02-02] MEDS: ALBUT/IPRATROP 3MG/0.5MG NEB 3 ML VIAL INH SCH ×2 (07:07→14:09)
[2017-02-02 07:17] LABS: HEMATOCRIT 37.5 % (37-47); MEAN CELL VOLUME 95.2 fL (80-100); MEAN CORPUSCULAR HEMOGLOBIN 31.7 pg (25-34); MEAN CORPUSCULAR HGB CONC 33.3 g/dl (32-36); MEAN PLATELET VOLUME 9.6 fL (7.4-10.4); PLATELET COUNT 322 K/uL (130-400); RED BLOOD COUNT 3.94 M/uL (4.2-5.4); WHITE BLOOD COUNT 9.44 K/uL (4.8-10.8)
[2017-02-02 07:20] LABS: INR 1.7 (0.9-1.1); PROTHROMBIN TIME (PATIENT) 18.5 SECONDS (9.0-12.0)
[2017-02-02] MEDS: OXYCODONE/ACETAMINOPHEN 5-325 TAB PO PRN ×2 (07:36→15:20)
[2017-02-02 07:48] LABS: BUN/CREATININE RATIO 18.2 (10-20); CALCIUM 10.4 mg/dl (8.5-10.1); CREATININE 1.3 mg/dl (0.60-1.20); POTASSIUM 3.9 mmol/L (3.5-5.1)
[2017-02-02 07:55] VITALS: BP 133/85; PULSE 87; TEMP 36.6; O2SAT 92
[2017-02-02] MEDS: FLUTICASONE/SALMETEROL 250/50 (ADVAIR) 14 PUFF/1 INHALER INH SCH (08:22)
[2017-02-02] MEDS: CALCIUM 600MG + VIT D 400 IU TAB PO SCH (08:23)
[2017-02-02] MEDS: CHOLECALCIFEROL 1000 INTER.UNIT TAB PO SCH (08:23)
[2017-02-02] MEDS: FERROUS SULFATE 325 MG TAB PO SCH (08:23)
[2017-02-02] MEDS: MULTIVITAMIN TAB PO SCH (08:24)
[2017-02-02] MEDS: FUROSEMIDE 40 MG TAB PO SCH (08:24)
[2017-02-02] MEDS: LACTOBACILLUS ACIDOPHILUS (FLORANEX) TAB PO SCH ×2 (08:24→12:06)
[2017-02-02] MEDS: MAGNESIUM OXIDE 400 MG TAB PO SCH (08:24)
[2017-02-02] MEDS: POTASSIUM CHLORIDE 20 MEQ TABCR PO SCH (08:25)
[2017-02-02] MEDS: ASCORBIC ACID 500 MG TAB PO SCH (08:25)
[2017-02-02] MEDS: METOPROLOL SUCC 25MG EXT REL TAB PO SCH (08:25)
[2017-02-02] MEDS: PAROXETINE 20 MG TAB PO SCH (08:25)
[2017-02-02] MEDS: PANTOprazole SOD 40 MG TAB PO SCH (08:25)
[2017-02-02] MEDS: SUCRALFATE 1 GM/10 ML UDC PO SCH ×2 (08:26→12:06)
[2017-02-02 14:09] VITALS: PULSE 95; O2SAT 95
--- NOTE | 2017-02-02 14:19 | Progress Note ---
Medicine Progress Note Date & Time of Visit: Feb 02, 2017 at 10:46 . Subjective Doing fairly well except for chronic arthritic pain. No fever. Chronic dyspnea on exertion at baseline. No significant cough. No anginal symptoms. No nausea of vomiting. Diarrhea improved. . Objective Last 8 Hrs Date Time Temp Pulse Resp B/P (MAP) Pulse Ox O2 Delivery O2 Flow Rate FiO2 02/02/17 08:00 Room Air 02/02/17 07:55 36.6 87 19 133/85 (101) 92 Room Air 02/02/17 07:07 87 16 95 Room Air Physical Exam: General- lying in bed, no distress Neck- + JVD Lungs- rales left base Heart- RRR, II/ sys murmur at base Abdomen- + BS, soft, nontender Extremities- 2+ pretibial edema (slightly greater on left), no calf tenderness Neuro- alert . Laboratory Results: Last 24 Hours Test 02/02/17 06:22 White Blood Count 9.44 K/uL Red Blood Count 3.94 M/uL Hemoglobin 12.5 g/dL Hematocrit 37.5 % Mean Corpuscular Volume 95.2 fL Mean Corpuscular Hemoglobin 31.7 pg Mean Corpuscular Hemoglobin Concent 33.3 g/dl RDW Standard Deviation 58.2 fL RDW Coefficient of Variation 16.7 % Platelet Count 322 K/uL Mean Platelet Volume 9.6 fL Prothrombin Time 18.5 SECONDS Prothromb Time International Ratio 1.7 Sodium Level 144 mmol/L Potassium Level 3.9 mmol/L Chloride Level 106 mmol/L Carbon Dioxide Level 30 mmol/L Anion Gap 8.0 mmol/L Blood Urea Nitrogen 24 mg/dl Creatinine 1.30 mg/dl Est Creatinine Clear Calc Drug Dose 27.9 ml/min Estimated GFR () 43.9 Estimated GFR (Non- 37.9 BUN/Creatinine Ratio 18.2 Random Glucose 91 mg/dl Calcium Level 10.4 mg/dl Assessment & Plan SEPSIS Met criteria for sepsis per 2001 definition and current CMS guidelines. WBC = 15,000. Tachycardic. Serum lactate was 1.47. Hemodynamically stable. Blood cultures obtained and placed on broad spectrum antibiotic coverage with ceftriaxone. Source = UTI as discussed below. ALTERED MENTAL STATUS Probable encephalopathy secondary to sepsis / UTI. Resolved. UTI Urine culture grew Enterococcus faecalis. Received IV vancomycin and ceftriaxone. Transitioned to oral therapy with amoxicillin / clavulanic acid. Received 9 days of treatment. ELEVATED TROPONIN Serum troponin slightly elevated. Probably due to UTI / sepsis. Doubt acute coronary syndrome. CORONARY ARTERY DISEASE No anginal symptoms. 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 No pulmonary edema on chest x-ray 01/29 Continue furosemide. AORTIC STENOSIS Status post TAVR. OBSTRUCTIVE LUNG DISEASE Pulmonary status stable. Oxygenating well on RA. Continue Advair, Duonebs. LLE ATELECTASIS Persistent rales left base. CT demonstrated LLL atelectasis secondary to hiatal hernia. Incentive spirometry. HISTORY PULMONARY EMBOLISM Sensitive to warfarin- held for a couple days. Trying to keep INR 2.0 - 2.5 due to chronic GI blood loss. INR day of discharge = 1.7. Warfarin 2 mg given day of discharge at [facility]; continue 2 mg daily, hold for INR > 2.5. Continue warfarin and titrate dose. CKD III / MYRTLE Serum creatinine on admission 1.7. Creatinine today = 1.3. Follow. ANEMIA Chronic GI blood loss. GI bleed in December; endoscopic evaluation not pursued due to multiple comorbidities. Hgb as low as 8.0. Stools heme positive. Seems to become more dyspneic with hemoglobin less than 9. Once again, best not to pursue endoscopic evaluation due to high risk. Transfused 2 units pRBC's. Hemoglobin day of discharge 12.5. Continue iron supplementation. Follow H/H. Arrange for outpatient transfusion when Hgb < 9. OSTEOARTHRITIS Seen by Ortho. Left knee and left shoulder injected with Marcaine and methylprednisolone. Continue prednisone and analgesics. LOOSE STOOLS Frequent loose stools. Negative for C diff on 01/29. Diarrhea improved by discharge. Recheck C diff if diarrhea worsens. LEUKOCYTOSIS WBC 01/27 was 20,530. Patient was afebrile and clinically stable. Leukocytosis probably secondary to joint infections with methylprednisolone. WBC today = 9444. VTE PROPHYLAXIS Continue warfarin and titrate dose as noted above. DISPOSITION Functional status poor. Patient is committed to returning to her home, but willing to consider inpatient rehabilitation. Case Management consulted. Arrangements being made for transfer to [facility] for inpatient rehab. Internal Medicine follow-up with Dr. Myrna Inman. Cardiology follow-up with Albert Schmidt PA-C. . Consultants: Orthopedics . Procedures: CT head IV fluids IV meds transfusion 2 units pRBC's methylprednisolone injections left knee and left shoulder 01/24 PT OT . Current Inpatient Medications: Current Inpatient Medications Medications (Trade) Dose Ordered Sig/Rosi Route Start Time Stop Time Status Last Admin Dose Admin Ondansetron HCl (Zofran Inj) 4 mg Q6H PRN IV 01/21/17 23:15 02/20/17 23:14 Acetaminophen (Tylenol Tab) 650 mg Q6 PRN PO 01/21/17 23:45 02/20/17 23:44 01/31/17 20:47 650 MG Calcium Carbonate (Tums Chew Tab) 500 mg BID PRN PO 01/21/17 23:45 02/20/17 23:44 Calcium/Vitamin D (Caltrate Plus Tab) 1 tab BIDM PO 01/22/17 07:30 02/21/17 07:59 02/02/17 08:23 1 TAB Ferrous Sulfate (Feosol Tab) 325 mg BID PO 01/22/17 09:00 02/21/17 08:59 02/02/17 08:23 325 MG Salmeterol Xinafoate/ Fluticasone (Advair Diskus 250/50 Inh) 1 puff BID INH 01/22/17 09:00 02/21/17 08:59 02/02/17 08:22 1 PUFF Lorazepam (Ativan Tab) 0.5 mg HS PRN PO 01/21/17 23:45 02/20/17 23:44 02/01/17 21:21 0.5 MG Magnesium Oxide (Mag-Ox Tab) 400 mg DAILY PO 01/22/17 09:00 02/21/17 08:59 02/02/17 08:24 400 MG Metoprolol Succinate (Toprol Xl Tab) 12.5 mg BID PO 01/22/17 09:00 02/21/17 08:59 02/02/17 08:25 12.5 MG Mirtazapine (Remeron Tab) 15 mg HS PO 01/22/17 21:00 02/21/17 20:59 02/01/17 20:29 15 MG Multivitamins (Multivitamin Tab) 1 tab DAILY PO 01/22/17 09:00 02/21/17 08:59 02/02/17 08:24 1 TAB Ondansetron HCl (Zofran Tab) 4 mg Q6 PRN PO 01/21/17 23:45 02/20/17 23:44 Future Hold Oxycodone/ Acetaminophen (Percocet 5-325mg Tab) 1 tab Q8H PRN PO 01/21/17 23:45 02/04/17 23:44 02/02/17 07:36 1 TAB Pantoprazole Sodium (Protonix Tab) 40 mg BID PO 01/22/17 09:00 02/21/17 08:59 02/02/17 08:25 40 MG Prednisone (PredniSONE TAB) 5 mg DAILY PO 01/22/17 09:00 02/21/17 08:59 02/02/17 08:25 5 MG Sucralfate (Carafate Susp) 1 gm QID PO 01/22/17 09:00 02/21/17 08:59 02/02/17 08:26 1 GM Ascorbic Acid (Vitamin C Tab) 500 mg DAILY PO 01/22/17 09:00 02/21/17 08:59 02/02/17 08:25 500 MG Cholecalciferol (Vitamin D Tab) 2,000 inter.unit DAILY PO 01/22/17 09:00 02/21/17 08:59 02/02/17 08:23 2,000 INTER.UNIT Paroxetine HCl (pAXil TAB) 40 mg DAILY PO 01/22/17 09:00 02/21/17 08:59 02/02/17 08:25 40 MG Albuterol/ Ipratropium (Duoneb) 3 ml Q4R PRN INH 01/22/17 01:30 02/21/17 01:29 Furosemide (Lasix Tab) 40 mg DAILY PO 01/24/17 09:00 02/23/17 08:59 02/02/17 08:24 40 MG Albuterol/ Ipratropium (Duoneb) 3 ml TIDR INH 01/24/17 21:00 02/23/17 20:59 02/02/17 07:07 3 ML Lactobacillus Acidophilus (Floranex Tab) 4 tab TIDM PO 01/25/17 08:00 02/24/17 07:59 02/02/17 08:24 4 TAB Lorazepam (Ativan Tab) 0.25 mg Q8H PRN PO 01/26/17 18:45 02/25/17 18:44 Warfarin Sodium (Coumadin Tab) 2 mg DAILY@16 PO 01/28/17 16:00 02/27/17 15:59 Future hold 01/29/17 16:51 2 MG Potassium Chloride (Klor-Con Tab) 20 meq BID PO 02/01/17 09:00 03/03/17 08:59 02/02/17 08:25 20 MEQ
[2017-02-02] MEDS ORDERED: WARFARIN SOD 2 MG TAB PO ONE (14:30)
[2017-02-02] MEDS ORDERED: FRRS300 PO (14:35)
[2017-02-02] MEDS ORDERED: CMD2 PO (14:38)
--- NOTE | 2017-02-02 14:45 | Discharge Instructions ---
Discharge Instructions Date of Service Feb 02, 2017. Admission Reason for Admission: altered mental status . Discharge Discharge Diagnosis / Problem: urinary tract infection with Enterococcus faecalis Discharge Goals Goal(s): Improve function Activity Recommendations Activity Level: Assistance Required Therapies: Physical Therapy, Occupational Therapy . Additional Information Patient informed of condition: Yes Advance Directives: Yes DNR: No Level of Care: Acute Rehab Communicable Disease: No Prognosis: Improving Oxygen at (LPM): nocturnal O2 2 LPM + PRN during day Marcelo Catheter: No Instructions / Follow-Up Instructions / Follow-Up FOLLOW-UP: INTERNAL MEDICINE Dr. Myrna Inman. Please arrange for follow-up after discharge from your facility. CARDIOLOGY Albert Schmidt PA-C. . Current Hospital Diet Patient's current hospital diet: Low Sodium Diet (2gm Na), AHA Diet (Heart Healthy) Discharge Diet Recommended Diet: AHA Diet (Heart Healthy) Pending Studies Studies pending at discharge: no Physician Orders On Transfer Special Precautions: fall precautions . Vital Signs: routine . Weigh: routine . Additional Orders: incentive spirometry QID Basic metabolic profile weekly. H/H, q Mon, Wed, Fri. INR daily until stable (goal 2.0 - 2.5), then per your facility's protocol. Thank you for receiving this patient in transfer. Please call if you have any questions. Manish Jessica . POLST Discussion: Not Applicable Medical Emergencies . Who to Call and When: Medical Emergencies: If at any time you feel your situation is an emergency, please call 911 immediately. . Non-Emergent Contact Non-Emergency issues call your: Primary Care Provider, Cork Molder, Hospital Doctor . . "Provider Documentation" section prepared by Manish Jessica. . Tray Service Worker Recommendations Tray Service Worker Recommendations: May follow up with Dr. Leslie at [facility] if persistent pain in the injected joints or if the right knee becomes more painful and wishes to have an injection to it. Please call [phone] for an appointment if needed. Core Measure Problem Core Measures: None [place] Drug Monitoring Program Search Results: patient reviewed within database, no issues identified
--- NOTE | 2017-02-02 14:56 | Discharge Summary ---
Discharge Summary Date of Service Feb 02, 2017. Discharge Summary Admission Date: Jan 21, 2017 at 23:17 Discharge Date: Feb 02, 2017 Discharge Disposition: Rehab ([facility]) Principal Diagnosis: sepsis due to Enterococcus faecalis urinary tract infection encephalopathy secondary to sepsis acute and chronic anemia secondary to GI blood loss . Secondary Diagnoses/Problems: Chronic and Resolved Medical Problems: (1) Anemia Status: Chronic (2) Angiectasia Permanent Comment: on colonoscopy 05/2013 Status: Chronic (3) Aortic stenosis Permanent Comment: moderately severe by echo December 2013 Status: Chronic (4) Basal cell carcinoma Permanent Comment: s/p MOHS surgery Status: Resolved (5) Benign hypertension Status: Chronic (6) CAD (coronary artery disease) Permanent Comment: s/p RCA stent 2011 Status: Chronic (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 Status: Chronic (8) CKD (chronic kidney disease) stage 3, GFR 30-59 ml/min Status: Chronic (9) Depression Status: Chronic (10) Diverticulosis Colon (W/O Ment Of Hemorrhage) Status: Chronic (11) Dyslipidemia Status: Chronic (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, 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 Status: Chronic (13) Gastroparesis Status: Chronic (14) GERD (gastroesophageal reflux disease) Status: Chronic (15) Hiatal hernia Status: Chronic (16) History of acute minda lesion Permanent Comment: 06/2013 Status: Chronic (17) History of endometrial cancer Permanent Comment: s/p radiation and total hysterectomy Status: Chronic (18) History of GI bleed Status: Chronic (19) History of pulmonary embolism Permanent Comment: x 2 Status: Chronic (20) IBS (irritable bowel syndrome) Status: Chronic (20) Obstructive lung disease (21) Osteoporosis Status: Chronic (22) Polyarthritis Permanent Comment: on chronic prednisone Status: Chronic (23) Recurrent UTI Status: Chronic Surgical Problems: (1) Hx of cystoscopy Status: Chronic (2) S/P left knee arthroscopy Status: Chronic (3) S/P TAVR (transcatheter aortic valve replacement) Permanent Comment: due to severe aortic stenosis Status: Chronic (4) Status post cataract extraction Status: Chronic (5) Status post coronary artery stent placement Status: Chronic (6) Status post hysterectomy Status: Chronic . Procedures: CT head IV fluids IV meds transfusion 2 units pRBC's methylprednisolone injections left knee and left shoulder 01/24 PT OT . Consultations: Orthopedics . Medication Reconciliation New Medications: Warfarin Sod (Coumadin) 2 Mg Tab 2 MG PO DAILY@16 for 30 Days, TAB 02/02/17 dose = 2 mg daily. Received dose @ [facility]. Hold INR > 2.5. Continued Medications: Acetaminophen (Acetaminophen) 325 Mg Tab 650 MG PO PRN for Pain Albuterol Sulf (Proventil 0.083% 2.5MG/3ML) 2.5 Mg/3 Ml Nebu 2.5 MG INH QID PRN for SOB/Wheezing, EA Ascorbic Acid (Vitamin C) 500 Mg Cap 500 MG PO DAILY take before lunch with ferrous sulfate Calcium Carbonate (Tums) 500 Mg Chew 500 MG PO BID PRN for Heartburn Calcium/Vitamin D (Os-Ismael 500 Plus D) Tab 1 TAB PO BIDM Cholecalciferol (Vitamin D3) 2,000 Unit Cap 1 CAP PO DAILY for 30 Days, CAP take with supper Ferrous Sulfate (Ferrous Sulfate) 325 Mg Tab 325 MG PO DAILY for 30 Days take before lunch with ascorbic acid Fluticasone Prop/Salmeterol (Advair Diskus 250/50 60 Dose) 1 Ea Aerp 1 PUFF INH BID, INHALER Furosemide (Lasix) 20 Mg Tab 40 MG PO DAILY, TAB Home O2 Therapy (Oxygen) Gas 3 LITERS NA UD 3 liters HS and PRN Lorazepam (Lorazepam) 0.5 Mg Tab 0.5 MG PO HS PRN for Insomnia Magnesium Oxide (Mag-Ox) 400 Mg Tab 400 MG PO DAILY, TAB Metoprolol Succinate (Metoprolol Succinate ER) 25 Mg Tabcr 12.5 MG PO BID Mirtazapine (Remeron) 15 Mg Tab 1 TAB PO HS for 30 Days, #30 TAB 1 Refill Multiple Vitamin (Multivitamin) 1 Tab Tab 1 TABLET PO DAILY for 30 Days take with supper Ondansetron Hcl (Zofran) 4 Mg Tab 4 MG PO Q6 PRN for Nausea, TAB Oxycodone/Acetaminophen 5MG/325MG (Percocet 5MG/325MG) Tab 1 TABLET PO Q8H PRN for Pain, TAB Pantoprazole (Pantoprazole Sodium) 40 Mg Tab 40 MG PO BID for 30 Days, TAB 2 Refills Paroxetine (Paroxetine HCl) 40 Mg Tab 40 MG PO DAILY Potassium Chloride (Potassium Chloride Er) 10 Meq Cap 10 MEQ PO BID for 90 Days, #180 CAP 1 Refill Prednisone (Prednisone) 5 Mg Tab 5 MG PO DAILY Sucralfate (Sucralfate) 1 Gm/10 Ml Susp 1 GM PO QID for 30 Days, 2 Refills Discontinued Medications: Ferrous Sulfate (Ferrous Sulfate) 325 Mg Tab 325 MG PO BID Fluconazole (Diflucan) 100 Mg Tab 100 MG PO DAILY for 14 Days, TAB Lactobacillus Acidophilus (Lactinex) Tab 4 TAB PO TID for 3 Days, #36 TAB 1 Refill after 3 days, resume taking 1 tab TID Warfarin Sod (Jantoven) 1 Mg Tab 1 MG PO DAILY, TAB Admission Information HPI (per Admitting provider): 81 year old female with PMH of CKD stage 3, anemia, thromboembolism on fci anticoagulant presents to the Emergency Room with c/o confusion. As per son, her confusion seems to get worst. She was unable to answer basic questions. Pt said that she was recently discharge on 01/08 from [facility] for bowel obstruction; and before that she was admitted for UTI. Pt said that whenever she has UTI, they told her she also gets confused. She said that her urine looks cloudy, denies any urinary frequency and dysuria. As per son, patient has been very weak since last admission. She also has been having nausea. denies any diarrhea and vomiting and abdominal pain Her last BM was 4 days ago. She is on oxycodone and she does take stool softener. She was started on IVF and empirical abx in the ER.Currently patient said that she is feeling little better. Denies any chest pain, palpitation, fever, chills and dizziness. . Physical Exam (per Admitting): General Appearance: WD/WN, no apparent distress Head: normocephalic, atraumatic Eyes: normal inspection, PERRL ENT: normal ENT inspection Neck: no JVD Respiratory/Chest: normal breath sounds, no respiratory distress, no accessory muscle use Cardiovascular: no JVD, + tachycardia Abdomen/GI: normal bowel sounds, non tender Back: normal inspection, no CVA tenderness Extremities/Musculoskelatal: no calf tenderness, + pertinent finding (+ edema in b/l LE) Neurologic/Psych: alert, normal mood/affect, oriented x 3 Skin: warm/dry, no rash Hospital Course SEPSIS Met criteria for sepsis per 2001 definition and current CMS guidelines. WBC = 15,000. Tachycardic. Serum lactate was 1.47. Hemodynamically stable. Blood cultures obtained and placed on broad spectrum antibiotic coverage with ceftriaxone. Source = UTI as discussed below. ALTERED MENTAL STATUS Probable encephalopathy secondary to sepsis / UTI. Resolved. UTI Urine culture grew Enterococcus faecalis. Received IV vancomycin and ceftriaxone. Transitioned to oral therapy with amoxicillin / clavulanic acid. Received 9 days of treatment. ELEVATED TROPONIN Serum troponin slightly elevated. Probably due to UTI / sepsis. Doubt acute coronary syndrome. CORONARY ARTERY DISEASE No anginal symptoms. 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 No pulmonary edema on chest x-ray 01/29 Continue furosemide. AORTIC STENOSIS Status post TAVR. OBSTRUCTIVE LUNG DISEASE Pulmonary status stable. Oxygenating well on RA. Continue Advair, Duonebs. LLE ATELECTASIS Persistent rales left base. CT demonstrated LLL atelectasis secondary to hiatal hernia. Incentive spirometry. HISTORY PULMONARY EMBOLISM Sensitive to warfarin- held for a couple days. Trying to keep INR 2.0 - 2.5 due to chronic GI blood loss. INR day of discharge = 1.7. Warfarin 2 mg given day of discharge at [facility]; continue 2 mg daily, hold for INR > 2.5. Continue warfarin and titrate dose. CKD III / MYRTLE Serum creatinine on admission 1.7. Creatinine today = 1.3. Follow. ANEMIA Chronic GI blood loss. GI bleed in December; endoscopic evaluation not pursued due to multiple comorbidities. Hgb as low as 8.0. Stools heme positive. Seems to become more dyspneic with hemoglobin less than 9. Once again, best not to pursue endoscopic evaluation due to high risk. Transfused 2 units pRBC's. Hemoglobin day of discharge 12.5. Continue iron supplementation. Follow H/H. Arrange for outpatient transfusion when Hgb < 9. OSTEOARTHRITIS / POLYARTHRITIS Seen by Ortho. Left knee and left shoulder injected with Marcaine and methylprednisolone. Continue prednisone and analgesics. LOOSE STOOLS Frequent loose stools. Negative for C diff on 01/29. Diarrhea improved by discharge. Recheck C diff if diarrhea worsens. LEUKOCYTOSIS WBC 01/27 was 20,530. Patient was afebrile and clinically stable. Leukocytosis probably secondary to joint infections with methylprednisolone. WBC today = 9444. VTE PROPHYLAXIS Continue warfarin and titrate dose as noted above. DISPOSITION Functional status poor. Patient is committed to returning to her home, but willing to consider inpatient rehabilitation. Case Management consulted. Arrangements being made for transfer to [facility] for inpatient rehab. Internal Medicine follow-up with Dr. Myrna Inman. Cardiology follow-up with Albert Schmidt PA-C. . Total time spent on discharge = 45 min. This includes examination of the patient, discharge planning, medication reconciliation, and communication with other providers. . Discharge Instructions Date of Service Feb 02, 2017. Admission Reason for Admission: altered mental status . Discharge Discharge Diagnosis / Problem: urinary tract infection with Enterococcus faecalis Discharge Goals Goal(s): Improve function Activity Recommendations Activity Level: Assistance Required Therapies: Physical Therapy, Occupational Therapy . Additional Information Patient informed of condition: Yes Advance Directives: Yes DNR: No Level of Care: Acute Rehab Communicable Disease: No Prognosis: Improving Oxygen at (LPM): nocturnal O2 2 LPM + PRN during day Marcelo Catheter: No Instructions / Follow-Up Instructions / Follow-Up FOLLOW-UP: INTERNAL MEDICINE Dr. Myrna Inman. Please arrange for follow-up after discharge from your facility. CARDIOLOGY Albert Schmidt PA-C. . Current Hospital Diet Patient's current hospital diet: Low Sodium Diet (2gm Na), AHA Diet (Heart Healthy) Discharge Diet Recommended Diet: AHA Diet (Heart Healthy) Pending Studies Studies pending at discharge: no Physician Orders On Transfer Special Precautions: fall precautions . Vital Signs: routine . Weigh: routine . Additional Orders: incentive spirometry QID Basic metabolic profile weekly. H/H, q Mon, Wed, Fri. INR daily until stable (goal 2.0 - 2.5), then per your facility's protocol. Thank you for receiving this patient in transfer. Please call if you have any questions. Manish Jessica . POLST Discussion: Not Applicable Medical Emergencies . Who to Call and When: Medical Emergencies: If at any time you feel your situation is an emergency, please call 911 immediately. . Non-Emergent Contact Non-Emergency issues call your: Primary Care Provider, Podiatrist, Hospital Doctor . . "Provider Documentation" section prepared by Manish Jessica. . Claims Administrator Recommendations Claims Administrator Recommendations: May follow up with Dr. Leslie at [facility] if persistent pain in the injected joints or if the right knee becomes more painful and wishes to have an injection to it. Please call [phone] for an appointment if needed. Core Measure Problem Core Measures: None [place] Drug Monitoring Program Search Results: patient reviewed within database, no issues identified . Additional Copies To Albert Schmidt PA-C; Myrna Inman M.D.
[2017-02-02 15:29] VITALS: BP 133/85; PULSE 95; TEMP 36.6; O2SAT 95
[2017-02-23] MEDS ORDERED: CFT250 PO (15:30)
== END 2017-02-02 16:42 | DRG 871 ==
LOC: C.EDB 19:25 → C.2E 23:17 → EDBEDREQ 23:37 → ENRESERV 23:48 → C.MS2W 01-23 13:13
PROVIDERS: ADMIT Internal Medicine; ATTEND Hospitalist
DX: A41.9 Sepsis, unspecified organism (principal); G93.41 Metabolic encephalopathy; N39.0 Urinary tract infection, site not specified; N17.9 Acute kidney failure, unspecified; I13.0 Hypertensive heart and chronic kidney disease with heart failure and stage 1 through stage 4 chronic kidney disease, or unspecified chronic kidney disease; D68.2 Hereditary deficiency of other clotting factors; J98.11 Atelectasis; K92.2 Gastrointestinal hemorrhage, unspecified; J96.10 Chronic respiratory failure, unspecified whether with hypoxia or hypercapnia; B95.2 Enterococcus as the cause of diseases classified elsewhere; K58.9 Irritable bowel syndrome, unspecified; E86.0 Dehydration; N18.3 Chronic kidney disease, stage 3 (moderate); I50.9 Heart failure, unspecified; D64.9 Anemia, unspecified; F32.9 Major depressive disorder, single episode, unspecified; F41.9 Anxiety disorder, unspecified; F17.210 Nicotine dependence, cigarettes, uncomplicated; I25.10 Atherosclerotic heart disease of native coronary artery without angina pectoris; Z95.5 Presence of coronary angioplasty implant and graft; Z85.828 Personal history of other malignant neoplasm of skin; K57.30 Diverticulosis of large intestine without perforation or abscess without bleeding; E78.5 Hyperlipidemia, unspecified; K21.9 Gastro-esophageal reflux disease without esophagitis; K44.9 Diaphragmatic hernia without obstruction or gangrene; M81.0 Age-related osteoporosis without current pathological fracture; M17.0 Bilateral primary osteoarthritis of knee; M19.012 Primary osteoarthritis, left shoulder; J44.9 Chronic obstructive pulmonary disease, unspecified; Z79.01 Long term (current) use of anticoagulants; Z86.711 Personal history of pulmonary embolism; Z95.2 Presence of prosthetic heart valve; Z98.49 Cataract extraction status, unspecified eye; Z90.710 Acquired absence of both cervix and uterus; Z99.81 Dependence on supplemental oxygen; Z79.899 Other long term (current) drug therapy; Z83.3 Family history of diabetes mellitus; Z88.8 Allergy status to other drugs, medicaments and biological substances; Z88.2 Allergy status to sulfonamides; Z80.9 Family history of malignant neoplasm, unspecified; Z82.49 Family history of ischemic heart disease and other diseases of the circulatory system; Z83.79 Family history of other diseases of the digestive system; Z85.42 Personal history of malignant neoplasm of other parts of uterus

== ENCOUNTER 2017-02-19 10:25 | Inpatient (IN) | payer OTHER, BC ==
[~2017-02-19] VITALS: Ht 154.9 cm; Wt 66.8 kg
[~2017-02-19 10:25] MED LIST changes: +CMD2 PO; -FERR325T5 PO; -FLUC100T4 PO; +FRRS300 PO; -LCTX PO; -WARF1TAB6 PO
[2017-02-19] MEDS ORDERED: PANT40TA PO (10:49)
[2017-02-19] MEDS ORDERED: WARF1TAB6 PO (10:49)
[2017-02-19] MEDS ORDERED: SUCR1TAB29 PO (10:49)
--- NOTE | 2017-02-19 11:32 | DIAGNOSTIC IMAGING REPORT ---
LEFT KNEE 1 OR 2 VIEWS ROUTINE CLINICAL HISTORY: Left knee pain status post trauma COMPARISON: 01/23/2017 DISCUSSION: There is chondrocalcinosis. There is moderate lateral joint compartment narrowing. There is a tiny dorsal patellar spur. There is a small joint effusion. There is minimal irregularity of the cortex of one of the lateral femoral condyles as visualized in the lateral view. This is likely old. IMPRESSION: 1. Mild irregularity involving the anterior cortex of one of the lateral femoral condyles as visualized on the lateral view. This may be old. Please correlate with the patient's site of pain 2. Chondrocalcinosis and degenerative change 3. Small joint effusion Electronically signed by: Austin Harman M.D. 02/19/2017 11:31 AM Dictated Date/Time: 02/19/2017 11:28 AM
[2017-02-19] MEDS ORDERED: SULFAMETHOXAZOLE/TRIMETHOPRIM DS 800/160MG TAB PO STA (11:55)
--- NOTE | 2017-02-19 12:29 | DIAGNOSTIC IMAGING REPORT ---
CHEST ONE VIEW PORTABLE CLINICAL HISTORY: Weakness, frequent falls. COMPARISON STUDY: 01/29/2017 FINDINGS: The heart is at the upper limits of normal in size. There are postsurgical changes of an aortic valve replacement. There is a retrocardiac opacity likely resulting a hiatal hernia. There is mild interstitial thickening similar to the prior study. There are bibasal atelectatic changes. There is no overt failure. There are old right-sided rib fractures.[ IMPRESSION: Stable interstitial thickening and basilar atelectasis. No acute findings. Electronically signed by: Austin Harman M.D. 02/19/2017 12:28 PM Dictated Date/Time: 02/19/2017 12:26 PM
--- NOTE | 2017-02-19 12:40 | EMERGENCY ROOM VISIT NOTE ---
History Report prepared by Henrique: Terri Whitten Under the Supervision of: Dr. Sergio Espitia M.D. First contact with patient: 11:33 Chief Complaint: FALL Stated Complaint: FALL History of Present Illness The patient is a 81 year old female who presents to the Emergency Room with complaints of an episode of a fall occurring [employer]. The patient states that she was walking to try and get to her walker when she fell today. She is currently complaining of left shoulder pain and left knee pain that she rates as a 4/10 in severity. Movement exacerbates her pain. Her son states that she has been having frequent falls over the past couple of days. He notes increased weakness and difficulty ambulating. He states that the patient is typically very alert, but she has become much more confused. She was discharged from [facility] 6 days ago. Just before she was discharged she developed a low-grade fever and they were concerned for a UTI. The patient had urine cultures done and then repeated again two days ago. Son states that [facility] called and said that her urine cultures were positive, but did not state a specific bacteria. The patient has not been placed on any antibiotics. Source of History: patient, family (son) Onset: [employer]ATING [employer] Position: other (global) Symptom Intensity: 4/10 Timing: other (episode) Modifying Factors (Worsening): other (ambulation) Associated Symptoms: + urinary symptoms, + weakness Note: Son notes pt to be confused. Pt reports left shoulder pain and left knee pain. Review of Systems All systems have been listed, reviewed, and are negative other than those previously mentioned. Please see Additional Medical History Sheet. 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 (8) CKD (chronic kidney disease) stage 3, GFR 30-59 ml/min (9) Confusion (10) Depression (11) Diverticulosis Colon (W/O Ment Of Hemorrhage) (12) Dyslipidemia (13) Elevated INR (14) Factor V deficiency (15) Falls (16) Gastroparesis (17) GERD (gastroesophageal reflux disease) (18) GIB (gastrointestinal bleeding) (19) Hiatal hernia (20) History of acute minda lesion (21) History of endometrial cancer (22) History of GI bleed (23) History of pulmonary embolism (24) IBS (irritable bowel syndrome) (25) Obstructive lung disease (26) Osteoporosis (27) Polyarthritis (28) Recurrent UTI (29) Temporal arteritis Surgical Problems: (1) Hx of cystoscopy (2) S/P left knee arthroscopy (3) S/P TAVR (transcatheter aortic valve replacement) (4) Status post cataract extraction (5) Status post coronary artery stent placement (6) Status post hysterectomy Family History Cancer Diabetes mellitus FH: cardiovascular disease MOTHER Gallbladder disease Hypertension Social History Smoking Status: Current Every Day Smoker Alcohol Use: none Drug Use: none Marital Status: Housing Status: lives alone Occupation Status: retired Current/Historical Medications Scheduled Ascorbic Acid (Vitamin C), 500 MG PO DAILY Calcium/Vitamin D (Os-Ismael 500 Plus D), 1 TAB PO BIDM Cholecalciferol (Vitamin D3), 1 CAP PO DAILY Ferrous Sulfate (Ferrous Sulfate), 325 MG PO BID Fluticasone Prop/Salmeterol (Advair Diskus 250/50 60 Dose), 1 PUFF INH BID Furosemide (Lasix), 40 MG PO DAILY Home O2 Therapy (Oxygen), 2 LITERS NA UD Magnesium Oxide (Mag-Ox), 400 MG PO DAILY Metoprolol Succinate (Metoprolol Succinate ER), 12.5 MG PO BID Mirtazapine (Remeron), 1 TAB PO HS Multiple Vitamin (Multivitamin), 1 TABLET PO DAILY Pantoprazole (Protonix), 40 MG PO DAILY Paroxetine (Paroxetine HCl), 40 MG PO DAILY Potassium Chloride (Potassium Chloride Er), 10 MEQ PO BID Prednisone (Prednisone), 5 MG PO DAILY Sucralfate (Carafate), 1 GM PO QID Warfarin Sod (Jantoven), 1 MG PO DAILY Scheduled PRN Acetaminophen (Acetaminophen), 650 MG PO for Pain Albuterol Sulf (Proventil 0.083% 2.5MG/3ML), 2.5 MG INH QID PRN for SOB/Wheezing Calcium Carbonate (Tums), 500 MG PO BID PRN for Heartburn Lorazepam (Lorazepam), 0.5 MG PO HS PRN for Insomnia Ondansetron Hcl (Zofran), 4 MG PO Q6 PRN for Nausea Oxycodone/Acetaminophen 5MG/325MG (Percocet 5MG/325MG), 1 TABLET PO Q8H PRN for Pain Allergies Coded Allergies: Cefdinir (Unverified Allergy, Unknown, RASH, 12/29/16) Clonazepam (Unverified Allergy, Unknown, ., 12/29/16) Levofloxacin (Verified Allergy, Unknown, unknown, 12/29/16) Sulfasalazine (Unverified Allergy, Unknown, ., 12/29/16) Metoclopramide (Verified Adverse Reaction, Intermediate, TREMORS, 12/29/16) Physical Exam Vital Signs Date Time Temp Pulse Resp B/P (MAP) Pulse Ox O2 Delivery O2 Flow Rate FiO2 02/19/17 16:29 100 Nasal Cannula 2.0 02/19/17 14:44 90 16 121/57 100 Nasal Cannula 2.0 02/19/17 13:43 90 16 107/57 96 Nasal Cannula 2.0 02/19/17 11:35 81 16 115/61 94 Nasal Cannula 2.0 02/19/17 10:39 96 Nasal Cannula 2.0 02/19/17 10:35 37.0 92 20 142/81 95 Nasal Cannula 2.0 Physical Exam GENERAL: Patient awake, alert, oriented x 3. Speech is somewhat garbled. Patient follows commands. Patient does not appear toxic. Patient is adequately hydrated and well-nourished. SKIN: No erythema, pallor, cyanosis or rash HEENT: Normal head, well-healed scars on the right side of her face and forehead. Pupils equal, reactive to light and accommodation. Ears normal. Oral cavity and posterior pharynx appear normal. Neck: Without adenopathy, no neck vein distention. LUNGS: Clear to auscultation. No wheezes, no rales, no rhonchi. HEART: No murmurs. No gallops. No rubs ABDOMEN: Well-healed lower abdominal scar. Soft, nontender. No masses, no rebound, no hepatomegaly or splenomegaly. EXTREMITIES: Bruises over all four extremities. No specific bruises over the left shoulder. She has ROM, but pain with movement of all joints. Bruise to the medial aspect of the left knee. Decreased ROM of the left knee. NEUROLOGIC: Cranial nerves II-XII within normal limits. No gross motor sensory function deficits. Medical Decision & Procedures ER Provider Diagnostic Interpretation: Radiology results as stated below per my review and radiologist interpretation: LEFT KNEE 1 OR 2 VIEWS ROUTINE CLINICAL HISTORY: Left knee pain status post trauma COMPARISON: 01/23/2017 DISCUSSION: There is chondrocalcinosis. There is moderate lateral joint compartment narrowing. There is a tiny dorsal patellar spur. There is a small joint effusion. There is minimal irregularity of the cortex of one of the lateral femoral condyles as visualized in the lateral view. This is likely old. IMPRESSION: 1. Mild irregularity involving the anterior cortex of one of the lateral femoral condyles as visualized on the lateral view. This may be old. Please correlate with the patient's site of pain 2. Chondrocalcinosis and degenerative change 3. Small joint effusion Electronically signed by: Austin Harman M.D. 02/19/2017 11:31 AM Dictated Date/Time: 02/19/2017 11:28 AM CHEST ONE VIEW PORTABLE CLINICAL HISTORY: Weakness, frequent falls. COMPARISON STUDY: 01/29/2017 FINDINGS: The heart is at the upper limits of normal in size. There are postsurgical changes of an aortic valve replacement. There is a retrocardiac opacity likely resulting a hiatal hernia. There is mild interstitial thickening similar to the prior study. There are bibasal atelectatic changes. There is no overt failure. There are old right-sided rib fractures.[ IMPRESSION: Stable interstitial thickening and basilar atelectasis. No acute findings. Electronically signed by: Austin Harman M.D. 02/19/2017 12:28 PM Dictated Date/Time: 02/19/2017 12:26 PM Laboratory Results 02/19/17 12:29 Red Blood Count 3.40, Mean Corpuscular Volume 95.0, Mean Corpuscular Hemoglobin 29.7, Mean Corpuscular Hemoglobin Concent 31.3, Mean Platelet Volume 9.4, Neutrophils (%) (Auto) 65.0, Lymphocytes (%) (Auto) 18.1, Monocytes (%) (Auto) 14.5, Eosinophils (%) (Auto) 1.7, Basophils (%) (Auto) 0.3, Neutrophils # (Auto ) 6.16, Lymphocytes # (Auto) 1.71, Monocytes # (Auto) 1.37, Eosinophils # (Auto ) 0.16, Basophils # (Auto) 0.03 02/19/17 12:29 Test 7/20/17 12:29 02/19/17 12:50 White Blood Count 9.47 K/uL (4.8-10.8) Red Blood Count 3.40 M/uL (4.2-5.4) Hemoglobin 10.1 g/dL (12.0-16.0) Hematocrit 32.3 % (37-47) Mean Corpuscular Volume 95.0 fL (80-100) Mean Corpuscular Hemoglobin 29.7 pg (25-34) Mean Corpuscular Hemoglobin Concent 31.3 g/dl (32-36) Platelet Count 390 K/uL (130-400) Mean Platelet Volume 9.4 fL (7.4-10.4) Neutrophils (%) (Auto) 65.0 % Lymphocytes (%) (Auto) 18.1 % Monocytes (%) (Auto) 14.5 % Eosinophils (%) (Auto) 1.7 % Basophils (%) (Auto) 0.3 % Neutrophils # (Auto) 6.16 K/uL (1.4-6.5) Lymphocytes # (Auto) 1.71 K/uL (1.2-3.4) Monocytes # (Auto) 1.37 K/uL (0.11-0.59) Eosinophils # (Auto) 0.16 K/uL (0-0.5) Basophils # (Auto) 0.03 K/uL (0-0.2) RDW Standard Deviation 52.5 fL (36.4-46.3) RDW Coefficient of Variation 15.2 % (11.5-14.5) Immature Granulocyte % (Auto) 0.4 % Immature Granulocyte # (Auto) 0.04 K/uL (0.00-0.02) Anion Gap 5.0 mmol/L (3-11) Est Creatinine Clear Calc Drug Dose 28.7 ml/min Estimated GFR () 43.9 Estimated GFR (Non- 37.9 BUN/Creatinine Ratio 18.9 (10-20) Calcium Level 12.0 mg/dl (8.5-10.1) Total Bilirubin 0.3 mg/dl (0.2-1) Aspartate Amino Transf (AST/SGOT) 19 U/L (15-37) Alanine Aminotransferase (ALT/SGPT) 17 U/L (12-78) Alkaline Phosphatase 106 U/L (45-117) Total Protein 6.3 gm/dl (6.4-8.2) Albumin 2.6 gm/dl (3.4-5.0) Globulin 3.7 gm/dl (2.5-4.0) Albumin/Globulin Ratio 0.7 (0.9-2) Prothrombin Time 17.5 SECONDS (9.0-12.0) Prothromb Time International Ratio 1.6 (0.9-1.1) Laboratory results as stated above per my review. Medications Administered Medications (Trade) Dose Ordered Sig/Rosi Route Start Time Stop Time Status Last Admin Dose Admin Trimethoprim/ Sulfamethoxazole (Septra Ds 800/ 160MG Tab) 1 tab NOW STAT PO 02/19/17 11:55 02/19/17 11:56 DC 02/19/17 12:18 1 TAB Oxycodone/ Acetaminophen (Percocet 5-325mg Tab) 1 tab NOW ONCE PO 02/19/17 16:00 02/19/17 16:01 DC 02/19/17 16:00 1 TAB ECG Indication: weakness Rate (beats per minute): 89 Rhythm: normal sinus Findings: no acute ischemic change, no ectopy ED Course 1133: Past medical records reviewed. The patient was evaluated in room A9B. A complete history and physical examination was performed. 1155: Trimethoprim/Sulfamethoxazole 1 tab PO 1336: I went to reevaluate the patient and she was sleeping soundly. Her son is gone and I am going to wait for him to return to discuss the results. 1542: I reassessed the patient at this time. She is doing well. I discussed the results and treatment plan with the patient and her son. I answered all pertaining questions that they had. They expressed understanding and verbalized agreement. 1558: I spoke with Dr. Engel. We discussed the patient's case. [facility] 1600: Percocet 5-325 mg 1 tab PO Medical Decision Differential diagnoses includes UTI, frequent falls, fractures, dislocation, subluxation, confusion secondary to infection. Multiple labs and imaging were obtained. Please see above. The patient has a questionable fracture of her knee. I do not believe this requires intervention at this time. The patient has pain in all of her joints from severe arthritis. She was given Percocet while here. The patient is a significant fall risk. She has had multiple falls in the past week. This has probably been worse due to her urinary tract infection. Urine culture obtained yesterday from [facility] shows that she has greater than 100,000 colonies of klebsiella, which is sensitive to a number of medications including Bactrim. The patient was started on Bactrim here in the ED. We will need to monitor her INR due to the interaction with Coumadin. Consultation was obtained with [facility] hospitalist. Medication Reconcilliation Current Medication List: was personally reviewed by me Blood Pressure Screening Patient's blood pressure: Normal blood pressure Blood pressure disposition: Did not require urgent referral Consults Time Called: 1551 Consulting Physician: Dr. Engel Returned Call: [address] Engel. We discussed the patient's case. The patient will be evaluated by the [facility] Hospitalist Group for further management. Impression Primary Impression: Ambulatory dysfunction Additional Impressions: Contusion of left knee Urinary tract infection Anemia Scribe Attestation The scribe's documentation has been prepared under my direction and personally reviewed by me in its entirety. I confirm that the note above accurately reflects all work, treatment, procedures, and medical decision making performed by me. Departure Information Dispostion Being Evaluated By Hospitalist Referrals Myrna Inman M.D. (PCP) Patient Instructions My [facility] Problem Qualifiers Additional Impressions: Contusion of left knee Encounter type: initial encounter Qualified Codes: S80.02XA - Contusion of left knee, initial encounter
[2017-02-19 13:03] LABS: BASO % 0.3 %; BASO ABS # 0.03 K/uL (0-0.2); COMPLETE YES; EOS % 1.7 %; HEMATOCRIT 32.3 % (37-47); IG% 0.4 %; LYMPH % 18.1 %; LYMPH ABS # 1.71 K/uL (1.2-3.4); MEAN CORPUSCULAR HEMOGLOBIN 29.7 pg (25-34); MEAN CORPUSCULAR HGB CONC 31.3 g/dl (32-36); MEAN PLATELET VOLUME 9.4 fL (7.4-10.4); MONO % 14.5 %; PLATELET COUNT 390 K/uL (130-400); WHITE BLOOD COUNT 9.47 K/uL (4.8-10.8)
[2017-02-19 13:23] LABS: BUN/CREATININE RATIO 18.9 (10-20); CREATININE 1.3 mg/dl (0.60-1.20); POTASSIUM 4.5 mmol/L (3.5-5.1)
[2017-02-19 13:26] LABS: ALB/GLOB RATIO 0.7 (0.9-2)
[2017-02-19 14:15] LABS: INR 1.6 (0.9-1.1); PROTHROMBIN TIME (PATIENT) 17.5 SECONDS (9.0-12.0)
[2017-02-19] MEDS ORDERED: OXYCODONE/ACETAMINOPHEN 5-325 TAB PO ONE (16:00)
[2017-02-19 16:29] VITALS: O2SAT 100; Ht 154.9 cm; Wt 66.8 kg
[2017-02-19] MEDS ORDERED: IV FLUIDS COMPLETED PRN (17:00)
[2017-02-19] MEDS ORDERED: ONDANSETRON INJ 2 MG/ML 2 ML VIAL IV PRN (17:15)
[2017-02-19] MEDS ORDERED: CEFTRIAXONE SOD INJ 1 GM ADDVIAL IV ONE (17:15)
[2017-02-19] MEDS ORDERED: ALBUTEROL 0.083% NEBU SOLN 3 ML VIAL INH PRN (17:30)
[2017-02-19] MEDS ORDERED: CALCIUM CARBONATE 500 MG CHEWABLE PO PRN (17:30)
--- NOTE | 2017-02-19 18:01 | History and Physical ---
History & Physical Date & Time of Service: Feb 19, 2017 at 17:41 Chief Complaint: FALL, UTI Primary Care Physician: Myrna Inman M.D. History of Present Illness This is a 81yo F with PMH of CKD III, chronic anemia, h/o multiple PEs (on coumadin), CAD s/p RCA stent, CHF 2/2 aortic valve replacement and h/o recurrent UTIs who presents after a fall with with urinary symptoms and confusion. Patient was recently hospitalized at [facility] in early January for sepsis 2/ 2 UTI and then completed rehab at [facility] (was discharged home 6 days ago) . Per son, patient had a low grade fever and dysuria at the time of discharge and had UA and cultures performed but was not started on an empiric antibiotic. Over the past few days, patient has fallen multiple times and become more lethargic and confused. This morning, she was found on the floor by a home health aide and was brought to the ED by ambulance. The patient's fall was unwitnessed and she is having difficulty recalling the nature of the fall. She states that she may have "bumped her head" when sliding off of the toilet. Uses a walker but reports that she did not have it with her when she fell. She currently endorses some pain in her L knee as well as some L shoulder pain ( that is chronic, per son). He says that she is very alert at baseline but seems confused and slow-moving right now. Denies any LOC, headache, visual changes, CP , SOB, abdominal pain, n/v or hematuria. Past Medical/Surgical History Medical Problems: (1) Anemia Status: Chronic (2) Angiectasia Permanent Comment: on colonoscopy 05/2013 Status: Chronic (3) Aortic stenosis Permanent Comment: moderately severe by echo December 2013 Status: Chronic (4) Basal cell carcinoma Permanent Comment: s/p MOHS surgery Status: Resolved (5) Benign hypertension Status: Chronic (6) CAD (coronary artery disease) Permanent Comment: s/p RCA stent 2011 Status: Chronic (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 Status: Chronic (8) CKD (chronic kidney disease) stage 3, GFR 30-59 ml/min Status: Chronic (9) Depression Status: Chronic (10) Diverticulosis Colon (W/O Ment Of Hemorrhage) Status: Chronic (11) Dyslipidemia Status: Chronic (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, 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 Status: Chronic (13) Falls Status: Chronic (14) Gastroparesis Status: Chronic (15) GERD (gastroesophageal reflux disease) Status: Chronic (16) Hiatal hernia Status: Chronic (17) History of acute minda lesion Permanent Comment: 06/2013 Status: Chronic (18) History of endometrial cancer Permanent Comment: s/p radiation and total hysterectomy Status: Chronic (19) History of GI bleed Status: Chronic (20) History of pulmonary embolism Permanent Comment: x 2 Status: Chronic (21) IBS (irritable bowel syndrome) Status: Chronic (22) Obstructive lung disease Status: Chronic (23) Osteoporosis Status: Chronic (24) Polyarthritis Permanent Comment: on chronic prednisone Status: Chronic (25) Recurrent UTI Status: Chronic (26) Temporal arteritis Status: Chronic Surgical Problems: (1) Hx of cystoscopy Status: Chronic (2) S/P left knee arthroscopy Status: Chronic (3) S/P TAVR (transcatheter aortic valve replacement) Permanent Comment: due to severe aortic stenosis Status: Chronic (4) Status post cataract extraction Status: Chronic (5) Status post coronary artery stent placement Status: Chronic (6) Status post hysterectomy Status: Chronic Family History Cancer Diabetes mellitus FH: cardiovascular disease MOTHER Gallbladder disease Hypertension Social History Smoking Status: Never Smoker Drug Use: none Marital Status: Occupational Status: retired Immunizations History of Influenza Vaccine: Yes Influenza Vaccine Date: Apr 18, 2016 History of Tetanus Vaccine?: Yes Tetanus Immunization Date: Nov 27, 2008 History of Pneumococcal: Yes Pneumococcal Date: Apr 21, 2016 History of Hepatitis B Vaccine: Yes Multi-Drug Resistant Organisms History of MDRO: No Allergies Coded Allergies: Cefdinir (Verified Allergy, Mild, RASH-HAS HAD ROCEPHIN,CEFEPIME MANY TIMES, 02/19/17) Clonazepam (Unverified Allergy, Unknown, ., 12/29/16) Levofloxacin (Verified Allergy, Unknown, unknown, 12/29/16) Sulfasalazine (Unverified Allergy, Unknown, ., 12/29/16) Metoclopramide (Verified Adverse Reaction, Intermediate, TREMORS, 12/29/16) Home Medications Scheduled Ascorbic Acid (Vitamin C), 500 MG PO DAILY Calcium/Vitamin D (Os-Ismael 500 Plus D), 1 TAB PO BIDM Cholecalciferol (Vitamin D3), 1 CAP PO DAILY Ferrous Sulfate (Ferrous Sulfate), 325 MG PO BID Fluticasone Prop/Salmeterol (Advair Diskus 250/50 60 Dose), 1 PUFF INH BID Furosemide (Lasix), 40 MG PO DAILY Home O2 Therapy (Oxygen), 2 LITERS NA UD Magnesium Oxide (Mag-Ox), 400 MG PO DAILY Metoprolol Succinate (Metoprolol Succinate ER), 12.5 MG PO BID Multiple Vitamin (Multivitamin), 1 TABLET PO DAILY Pantoprazole (Protonix), 40 MG PO DAILY Paroxetine (Paroxetine HCl), 40 MG PO DAILY Potassium Chloride (Potassium Chloride Er), 10 MEQ PO BID Prednisone (Prednisone), 5 MG PO DAILY Warfarin Sod (Jantoven), 1 MG PO DAILY Scheduled PRN Acetaminophen (Acetaminophen), 650 MG PO for Pain Albuterol Sulf (Proventil 0.083% 2.5MG/3ML), 2.5 MG INH QID PRN for SOB/Wheezing Calcium Carbonate (Tums), 500 MG PO BID PRN for Heartburn Lorazepam (Lorazepam), 0.5 MG PO HS PRN for Insomnia Ondansetron Hcl (Zofran), 4 MG PO Q6 PRN for Nausea Oxycodone/Acetaminophen 5MG/325MG (Percocet 5MG/325MG), 1 TABLET PO Q8H PRN for Pain Review of Systems Ten systems reviewed and negative except as noted in the HPI. Physical Exam Vital Signs Date Time Temp Pulse Resp B/P (MAP) Pulse Ox O2 Delivery O2 Flow Rate FiO2 02/19/17 16:29 100 Nasal Cannula 2.0 02/19/17 14:44 90 16 121/57 100 Nasal Cannula 2.0 02/19/17 13:43 90 16 107/57 96 Nasal Cannula 2.0 02/19/17 11:35 81 16 115/61 94 Nasal Cannula 2.0 02/19/17 10:39 96 Nasal Cannula 2.0 02/19/17 10:35 37.0 92 20 142/81 95 Nasal Cannula 2.0 General Appearance: WD/WN (Sleeping intermittently during exam with some confusion.) Head: normocephalic Eyes: normal inspection, PERRL ENT: normal ENT inspection, hearing grossly normal Neck: supple, no adenopathy Respiratory/Chest: chest non-tender, normal breath sounds, no respiratory distress, no accessory muscle use, + crackles (faint crackles at LLB ) Cardiovascular: regular rate, rhythm, no JVD, no murmur, normal peripheral pulses Abdomen/GI: normal bowel sounds, non tender, soft, no organomegaly Back: normal inspection, no CVA tenderness Extremities/Musculoskelatal: normal inspection, no calf tenderness, no pedal edema, normal range of motion (L knee with swelling, medial bruise and decreased ROM), + swelling (+ trace edema in bilateral LE) Neurologic/Psych: no motor/sensory deficits, + disoriented (Oriented to person and place, not to time. ) Skin: normal color, warm/dry Diagnostics Laboratory Results Results Past 24 Hours Test 02/19/17 12:29 02/19/17 12:50 Range/Units White Blood Count 9.47 4.8-10.8 K/uL Red Blood Count 3.40 4.2-5.4 M/uL Hemoglobin 10.1 12.0-16.0 g/dL Hematocrit 32.3 37-47 % Mean Corpuscular Volume 95.0 80-100 fL Mean Corpuscular Hemoglobin 29.7 25-34 pg Mean Corpuscular Hemoglobin Concent 31.3 32-36 g/dl Platelet Count 390 130-400 K/uL Mean Platelet Volume 9.4 7.4-10.4 fL Neutrophils (%) (Auto) 65.0 % Lymphocytes (%) (Auto) 18.1 % Monocytes (%) (Auto) 14.5 % Eosinophils (%) (Auto) 1.7 % Basophils (%) (Auto) 0.3 % Neutrophils # (Auto) 6.16 1.4-6.5 K/uL Lymphocytes # (Auto) 1.71 1.2-3.4 K/uL Monocytes # (Auto) 1.37 0.11-0.59 K/uL Eosinophils # (Auto) 0.16 0-0.5 K/uL Basophils # (Auto) 0.03 0-0.2 K/uL RDW Standard Deviation 52.5 36.4-46.3 fL RDW Coefficient of Variation 15.2 11.5-14.5 % Immature Granulocyte % (Auto) 0.4 % Immature Granulocyte # (Auto) 0.04 0.00-0.02 K/uL Sodium Level 140 136-145 mmol/L Potassium Level 4.5 3.5-5.1 mmol/L Chloride Level 106 98-107 mmol/L Carbon Dioxide Level 29 21-32 mmol/L Anion Gap 5.0 3-11 mmol/L Blood Urea Nitrogen 25 7-18 mg/dl Creatinine 1.30 0.60-1.20 mg/dl Est Creatinine Clear Calc Drug Dose 28.7 ml/min Estimated GFR () 43.9 Estimated GFR (Non- 37.9 BUN/Creatinine Ratio 18.9 10-20 Random Glucose 106 70-99 mg/dl Calcium Level 12.0 8.5-10.1 mg/dl Total Bilirubin 0.3 0.2-1 mg/dl Aspartate Amino Transf (AST/SGOT) 19 15-37 U/L Alanine Aminotransferase (ALT/SGPT) 17 12-78 U/L Alkaline Phosphatase 106 45-117 U/L Total Protein 6.3 6.4-8.2 gm/dl Albumin 2.6 3.4-5.0 gm/dl Globulin 3.7 2.5-4.0 gm/dl Albumin/Globulin Ratio 0.7 0.9-2 Prothrombin Time 17.5 9.0-12.0 SECONDS Prothromb Time International Ratio 1.6 0.9-1.1 Diagnostic Radiology CXR (02/19/17): Stable interstitial thickening and basilar atelectasis. No acute findings. R Knee XR (02/19/17): 1. Mild irregularity involving the anterior cortex of one of the lateral femoral condyles as visualized on the lateral view. This may be old. Please correlate with the patient's site of pain 2. Chondrocalcinosis and degenerative change 3. Small joint effusion EKG 02/19/17: Normal sinus rhythm Minimal voltage criteria for LVH, may be normal variant Cannot rule out Anterior infarct , age undetermined Impression Assessment and Plan This is a 81yo F with PMH of CKD III, chronic anemia, h/o multiple PEs (on coumadin), CAD s/p RCA stent, diastolic CHF and h/o recurrent UTIs who presents after a fall and was found to have a UTI. UTI (uncomplicated): -Outpatient cultures grew 100,000 U Klebsiella, resistant to only ampicillin. -H/o recurrent UTIs; was treated successfully with ceftriaxone last admission. -Received 1 dose of bactrim in ED, started on ceftriaxone. -Does not meet SIRS criteria. Stable VS and wbc of 9.47. -Ordered repeat CBC for the AM. AMS: metabolic encephalopathy from UTI -Oriented to person & place but not time. -Will continue to monitor. H/o fall: -CT head ordered 2/2 fall history. -PT/OT ordered for conditioning. -Considering rehab at discharge. L knee pain: -Pain and decreased ROM on exam. -XR shows chronic findings as well as small joint effusion. Seen by ortho last admission and s/p shots -Continue adequate pain control. -PT once appropriate for ROM. H/o Multiple PEs: -On coumadin. Saw coag this week for dose adjustment. -Ordered INR. Continue home dose for now. CAD s/p RCA stent: -No anginal symptoms. -Continue home meds. Obstructive Lung Disease: -Pulmonary status stable. -Continue home oxygen of 2L NC. -Continue Advair, Duonebs. CHF 2/2 Aortic stenosis and diastolic function: -Has improved, per son, since AV replacement in 2016. Stable. No CP, SOB, mild edema in bilateral LE. -No pulmonary edema present on CXR today. -Continue Lasix 40mg daily. Atelectasis: -faint crackles heard on auscultation of LLL. -CXR shows chronic basilar atelectasis. -ordered incentive spirometry. CKD III: -Cr is 1.3 at admission, which is close to baseline. -Ordered BMP for AM. Chronic anemia: -Hgb 10.1 on admission. -H/o GI bleeds. Will monitor H&H. -Continue iron supplements BID. Polyarthritis: -Seen by ortho out-patient. -Continue home meds. DVT Ppx: coumadin Code status: full PCP: Dr. Inman Dispo: Consulted SW since pt is >80 and living alone and will likely require rehab. Agree with above H and P. Briefly 81F who was recently in hospital and had sepsis from UTI and was discharged to rehab and who was recently discharged from rehab to home comes back with fall and confusion. Patient had dysuria and low grade fevers at the time of discharge from rehab and cultures drawn at that time showed klebsiella.Patent fell at home today. Says she is somewhat confused. patient is alert and oriented but answers slowly. Denies any pain. Afebrile. 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 Level of Care Med/Surg Advanced Directives Existing Living Will: Yes Existing Power of Ore Mixer: Yes (LEANDRO) Resuscitation Status FULL RESUSCITATION VTE Prophylaxis VTE Risk Assessment Done? Y/N: Yes Risk Level: High Given or contraindicated: Warfarin (Coumadin) Social Service Consult >80 yr.& Lives Alone
[2017-02-19] MEDS ORDERED: FUROSEMIDE 20 MG TAB PO ONE (18:21)
[2017-02-19 18:38] VITALS: BP 116/66; PULSE 84; TEMP 36.4; O2SAT 99
[2017-02-19] MEDS: CALCIUM 600MG + VIT D 400 IU TAB PO SCH (19:40)
--- NOTE | 2017-02-19 19:40 | DIAGNOSTIC IMAGING REPORT ---
CT OF THE HEAD WITHOUT CONTRAST CLINICAL HISTORY: Fall. Weakness. COMPARISON STUDY: Head CT January 21, 2017. CT DOSE: 614.27 mGy.cm TECHNIQUE: Helical axial images of the head were obtained without IV contrast. Automated exposure control was utilized for the study. A dose lowering technique was utilized adhering to the principles of ALARA. FINDINGS: No acute intracranial hemorrhage, midline shift or mass effect is present. Ventricular system is stable. Basilar cisterns are patent. There are no extra-axial collections. White matter hypodensities are unchanged. There are no findings to suggest acute dural sinus thrombosis or acute territorial infarct. No calvarial fracture is identified. Positioning on this exam was difficult. There is mild mucosal thickening of the sinuses. IMPRESSION: 1. No acute intracranial findings. 2. No calvarial fracture. Electronically signed by: Pierce Abraham M.D. 02/19/2017 7:39 PM Dictated Date/Time: 02/19/2017 7:35 PM
[2017-02-19] MEDS: CEFTRIAXONE SOD INJ 1 GM in DEXTROSE 5% ADD-VANTAGE 50ML 50 ML IV SCH (19:47)
[2017-02-19] MEDS ORDERED: WARFARIN SOD 1 MG TAB PO ONE (20:00)
[2017-02-19] MEDS: FLUTICASONE/SALMETEROL 250/50 (ADVAIR) 14 PUFF/1 INHALER INH SCH (21:09)
[2017-02-19] MEDS: FERROUS SULFATE 325 MG TAB PO SCH (21:10)
[2017-02-19] MEDS: POTASSIUM CHLORIDE 10 MEQ TABCR PO SCH (21:10)
[2017-02-19] MEDS: METOPROLOL SUCC 25MG EXT REL TAB PO SCH (21:12)
[2017-02-19] MEDS: OXYCODONE/ACETAMINOPHEN 5-325 TAB PO PRN (21:37)
[2017-02-19] MEDS: LORAZEPAM 0.5 MG TAB PO PRN (21:37)
[2017-02-19 23:13] VITALS: BP 116/60; PULSE 84; TEMP 36.5; O2SAT 94
[2017-02-20] MEDS: OXYCODONE/ACETAMINOPHEN 5-325 TAB PO PRN (07:14)
[2017-02-20] MEDS: PANTOprazole SOD 40 MG TAB PO SCH (07:42)
[2017-02-20] MEDS: PAROXETINE 20 MG TAB PO SCH (07:42)
[2017-02-20] MEDS: METOPROLOL SUCC 25MG EXT REL TAB PO SCH ×2 (07:42→21:24)
[2017-02-20] MEDS: CALCIUM 600MG + VIT D 400 IU TAB PO SCH (07:42)
[2017-02-20] MEDS: ASCORBIC ACID 500 MG TAB PO SCH (07:42)
[2017-02-20] MEDS: FERROUS SULFATE 325 MG TAB PO SCH ×3 (07:42→21:24)
[2017-02-20] MEDS: POTASSIUM CHLORIDE 10 MEQ TABCR PO SCH ×2 (07:43→21:15)
[2017-02-20] MEDS: FLUTICASONE/SALMETEROL 250/50 (ADVAIR) 14 PUFF/1 INHALER INH SCH ×2 (07:43→21:14)
[2017-02-20] MEDS: MAGNESIUM OXIDE 400 MG TAB PO SCH (07:43)
[2017-02-20] MEDS: FUROSEMIDE 40 MG TAB PO SCH (07:43)
[2017-02-20] MEDS: MULTIVITAMIN TAB PO SCH (07:43)
[2017-02-20 07:51] VITALS: BP 134/80; PULSE 90; TEMP 36.8; O2SAT 93
[2017-02-20 07:56] LABS: HEMATOCRIT 32.9 % (37-47); MEAN CELL VOLUME 94.3 fL (80-100); MEAN CORPUSCULAR HEMOGLOBIN 29.8 pg (25-34); MEAN CORPUSCULAR HGB CONC 31.6 g/dl (32-36); MEAN PLATELET VOLUME 9.7 fL (7.4-10.4); PLATELET COUNT 404 K/uL (130-400); RED BLOOD COUNT 3.49 M/uL (4.2-5.4); WHITE BLOOD COUNT 9.82 K/uL (4.8-10.8)
[2017-02-20 08:04] LABS: INR 1.4 (0.9-1.1); PROTHROMBIN TIME (PATIENT) 15.3 SECONDS (9.0-12.0)
[2017-02-20 08:31] LABS: BUN/CREATININE RATIO 16.9 (10-20); CALCIUM 12.3 mg/dl (8.5-10.1); CREATININE 1.5 mg/dl (0.60-1.20); POTASSIUM 4.3 mmol/L (3.5-5.1)
[2017-02-20] MEDS: SODIUM CHLORIDE 0.9% 1000ML 1,000 ML IV SCH ×2 (09:58→21:14)
[2017-02-20 11:20] VITALS: BP 138/68; PULSE 87
--- NOTE | 2017-02-20 13:45 | Progress Note ---
Internal Med Progress Note Date of Service: Feb 20, 2017. Provider Documentation: SUBJECTIVE: Seen and examined at bedside. States having lightheadedness. Also complains of some pain at multiple sites Denies chest pain, SOB. OBJECTIVE: Vital Signs-as noted below Physical Exam: General Appearance:Moderately built and nourished, no apparent distress Head: normocephalic, Atraumatic Eyes: normal inspection, EOMI, PERRL Neck: supple, Trachea midline Respiratory/Chest: Normal breath sounds, + creps at bases Cardiovascular: S1, S2, No murmur Abdomen/GI:Soft, Non tender, Bowel sounds present Extremities/Musculoskelatal:normal inspection, 1+ b/l edema Neurologic/Psych: grossly no focal neurological deficits Skin: normal color, warm Lab data as noted below. ASSESSMENT & PLAN: Patient is an 81 yr female PMH of CKD III, chronic anemia, h/o multiple PEs on coumadin, CAD s/p RCA stent, diastolic CHF and h/o recurrent UTIs who presents after a fall and was found to have a UTI. UTI: Metabolic Encephalopathy Outpatient cultures grew 100,000 U Klebsiella, resistant to only ampicillin. H/o recurrent UTIs Continue IV ceftriaxone CT head: No acute intracranial findings Hypercalcemia: Corrected calcium levels:13.4 DC all Calcium Vitamin D supplements Start on IV fluids Will get PTH/PrTH, SPEP/UPEP, Vit D levels, Angiotensin I levels Will consult Nephrology H/o fall: CT head: no acute process PT/OT May benefit from rehab placement L knee pain: Likely secondary to fall XR: chronic findings as well as small joint effusion. Seen by ortho last admission and s/p shots Pain control PT/OT H/o Multiple PEs: On coumadin: Increase to 2mg today Monitor INR: 1.4 today CAD s/p RCA stent: No anginal symptoms. Continue home meds. Obstructive Lung Disease: stable Continue home oxygen of 2L NC. Continue AdvJaimee ace. CHF 2/2 Aortic stenosis and diastolic function: S/P AV replacement in 2016. Stable No pulmonary edema present on CXR Continue Lasix 40mg daily. CKD III: Cr at baseline Monitor renal function Chronic anemia: Hgb 10.1 on admission. H/o GI bleeds Continue iron supplement. No acute bleeding issues DVT Px: on Coumadin Code status: Full Code Disposition: To be determined Vital Signs: Date Time Temp Pulse Resp B/P (MAP) Pulse Ox O2 Delivery O2 Flow Rate FiO2 02/20/17 11:20 87 02/20/17 08:00 Nasal Cannula 3.0 02/20/17 07:51 36.8 90 20 134/80 (98) 93 3.0 02/20/17 00:00 Nasal Cannula 3.0 02/19/17 23:13 36.5 84 20 116/60 (78) 94 Nasal Cannula 3.0 02/19/17 18:38 36.4 84 20 116/66 (83) 99 3.0 02/19/17 17:36 80 20 102/53 98 Nasal Cannula 2.0 02/19/17 16:45 82 21 98/41 98 Nasal Cannula 2.0 02/19/17 16:29 100 Nasal Cannula 2.0 02/19/17 14:44 90 16 121/57 100 Nasal Cannula 2.0 Lab Results: Results Past 24 Hours Test 02/20/17 07:13 02/20/17 08:57 02/20/17 09:54 02/20/17 09:55 Range/Units White Blood Count 9.82 4.8-10.8 K/uL Red Blood Count 3.49 4.2-5.4 M/uL Hemoglobin 10.4 12.0-16.0 g/dL Hematocrit 32.9 37-47 % Mean Corpuscular Volume 94.3 80-100 fL Mean Corpuscular Hemoglobin 29.8 25-34 pg Mean Corpuscular Hemoglobin Concent 31.6 32-36 g/dl RDW Standard Deviation 52.3 36.4-46.3 fL RDW Coefficient of Variation 15.2 11.5-14.5 % Platelet Count 404 130-400 K/uL Mean Platelet Volume 9.7 7.4-10.4 fL Prothrombin Time 15.3 9.0-12.0 SECONDS Prothromb Time International Ratio 1.4 0.9-1.1 Sodium Level 138 136-145 mmol/L Potassium Level 4.3 3.5-5.1 mmol/L Chloride Level 103 98-107 mmol/L Carbon Dioxide Level 28 21-32 mmol/L Anion Gap 7.0 3-11 mmol/L Blood Urea Nitrogen 25 7-18 mg/dl Creatinine 1.50 0.60-1.20 mg/dl Est Creatinine Clear Calc Drug Dose 24.8 ml/min Estimated GFR () 37.0 Estimated GFR (Non- 31.9 BUN/Creatinine Ratio 16.9 10-20 Random Glucose 96 70-99 mg/dl Calcium Level 12.3 8.5-10.1 mg/dl Parathyroid Hormone (Intact) 9.9 11.1-79.5 pg/mL 25-Hydroxy Vitamin D Total 34.8 30-100 ng/ml Test 02/20/17 12:43 Range/Units
[2017-02-20 15:04] VITALS: BP 111/71; PULSE 86; TEMP 36.9; O2SAT 99
--- NOTE | 2017-02-20 15:04 | NEPHROLOGY CONSULTATION ---
DATE OF CONSULTATION: 02/20/2017 DATE OF CONSULTATION: 02/20/2017. TIME: 12:43 p.m. ATTENDING OF RECORD: Dr. Asif. REASON FOR CONSULTATION: CKD stage III and hypercalcemia. HISTORY OF PRESENT ILLNESS: This is an 81-year-old female who has underlying CKD stage III who has a history of recurrent UTIs who presented with worsening confusion and found to have a urinary tract infection. The patient just recently admitted last month with a urinary tract infection causing sepsis and was sent to [facility] and has been back home for about a week. The patient has been more confused and tired, falling more times and was found on the floor and brought to the Emergency Room. The patient's labs, creatinine was 1.3 on admission, 1.5 today, calcium level is 12 and up to 12.3 today. PTH appropriately low at 9.9. Vitamin D was normal at 35, SPEP and PTHrP are pending as well as an Asif level. Albumin levels are low at 2.6. The patient was started on IV fluids 100 mL an hour. The patient does have underlying clotting disorder with multiple PEs on Coumadin as well as an aortic valve replacement and stent to the RCA, who has had congestive heart failure in the past. The patient at home was taking Os-Ismael 1 twice a day, vitamin D daily, which has been placed on hold. The patient appears more alert today compared to yesterday. Son at chair side providing helpful history. The patient though knows her name, knows Jack is the president, the year 2016 and that she is in the hospital. She was also giving details about her sons. PAST MEDICAL HISTORY/PAST SURGICAL HISTORY: Aortic stenosis with an aortic valve replacement, renal cell carcinoma, hypertension, heart disease with a history of an RCA stent in 2011, CKD stage III, hyperlipidemia, factor V deficiency with history of multiple PEs on Coumadin, hiatal hernia, GERD, history of endometrial cancer, history of skin cancer, osteoporosis, recurrent UTIs, left knee scope, cataract surgery, hysterectomy. FAMILY HISTORY: Significant for cancer and diabetes. SOCIAL HISTORY: No smoking, no alcohol, no drugs. , lives at home. CURRENT MEDICATIONS: Coumadin 1 mg daily, normal saline at 100 mL an hour, Lasix 40 mg daily, magnesium 400 mg daily, multivitamin daily, Protonix 40 mg daily, prednisone 5 mg daily, vitamin C 500 mg daily, Paxil 40 mg daily, iron 325 p.o. b.i.d., Advair inhaler twice a day, Toprol-XL 12.5 p.o. b.i.d., potassium 10 p.o. b.i.d., ceftriaxone 1 gram IV daily. REVIEW OF SYSTEMS: Positive confusion, which is improving. No headaches, no blurry vision, no dysphagia, no shortness of breath at rest, but does have shortness of breath with exertion. No chest pain. Positive tender legs. No diarrhea or constipation. Has had dysuria. All other review of systems otherwise negative. PHYSICAL EXAMINATION: VITAL SIGNS: Temperature 36.8, pulse 87, respiratory rate 20, blood pressure 134/80, satting 93% on 3 liters. GENERAL: Awake, alert, oriented x3. EYES: No scleral icterus. EARS, NOSE, THROAT: Moist mucous membranes. NECK: Supple. PULMONARY: Decreased breath sounds at the bases. CARDIAC: Regular rate and rhythm. ABDOMEN: Bowel sounds positive, soft, nontender. EXTREMITIES: Tender extremities to palpation. No significant clubbing, cyanosis or edema. NEUROLOGICALLY: Nonfocal. DERM: No rash or ulcers noted. LABORATORY DATA: Sodium was 140, potassium 4.5, chloride is 106, bicarb is 29, BUN is 25, creatinine 1.3, glucose 106, calcium is 12, albumin is 2.6 on admission. Calcium now 12.3 this morning. PTH is low at 9.9, vitamin D3. White count 9, H&H 10 and 32, platelet count is 404. INR is 1.4. Immunofixation is pending. Chest x-ray shows stable interstitial thickening and basilar atelectasis, no acute findings. ASSESSMENT AND PLAN: 1. Chronic kidney disease stage 3 with creatinine of 1.3 on admission and has progressed to 1.5. We will follow trends, likely has CKD stage III from underlying hypertension and advanced age. No diabetes and does not smoke. Would like to establish care with her as an outpatient upon discharge. 2. Hypercalcemia. The patient was on calcium supplementation as well as vitamin D. Leading theory at this point is that the patient had urinary tract infection, became dehydrated with UTI and with the underlying calcium supplementation calcium levels worsened and with IV fluids and treatment of the urinary tract infection hopefully calcium levels come back down to normal. However, when correcting for albumin calcium levels are quite significantly high in the 14 range. Would like to continue the fluids; however tenuous circumstance given her underlying congestive heart failure issues with an aortic valve replacement and decreased breath sounds at the bases which is why we are continuing the oral Lasix in addition to the judicious use of IV fluids and follow volume status closely. The patient does not have primary hyperparathyroidism given the appropriately low PTH levels, vitamin D levels are normal as well. Check an Asif PTHrP and SPEP, however, will be several days before those levels come back. For now, continue judicious use of IV fluids with concomitant oral Lasix and follow calcium levels. I would like to hold on giving high dose steroids and/or bisphosphonate at this time and treat conservatively until other serologies come back. Appreciate consultation. MEG
[2017-02-20 16:00] VITALS: O2SAT 99
[2017-02-20] MEDS ORDERED: WARFARIN SOD 1 MG TAB PO SCH (16:00)
[2017-02-20] MEDS: WARFARIN SOD 2 MG TAB PO SCH (16:12)
[2017-02-20] MEDS ORDERED: CHOLECALCIFEROL 1000 INTER.UNIT TAB PO SCH (18:00)
[2017-02-20] MEDS: CEFTRIAXONE SOD INJ 1 GM in DEXTROSE 5% ADD-VANTAGE 50ML 50 ML IV SCH (18:37)
[2017-02-20] MEDS: LORAZEPAM 0.5 MG TAB PO PRN (21:16)
[2017-02-20 21:18] VITALS: BP 128/72; PULSE 81; TEMP 36.7; O2SAT 98
[2017-02-20] MEDS: ACETAMINOPHEN 325 MG TAB PO PRN (21:18)
[2017-02-20 23:25] VITALS: BP 90/56; PULSE 79; TEMP 37.1; O2SAT 95
[2017-02-21 07:35] LABS: INR 1.7 (0.9-1.1); PROTHROMBIN TIME (PATIENT) 19.1 SECONDS (9.0-12.0)
[2017-02-21 07:47] VITALS: BP 135/84; PULSE 81; TEMP 36.6; O2SAT 96
[2017-02-21 07:57] LABS: BUN/CREATININE RATIO 14.1 (10-20); CALCIUM 10.9 mg/dl (8.5-10.1); CREATININE 1.4 mg/dl (0.60-1.20); POTASSIUM 3.8 mmol/L (3.5-5.1)
[2017-02-21] MEDS: FLUTICASONE/SALMETEROL 250/50 (ADVAIR) 14 PUFF/1 INHALER INH SCH ×2 (08:08→20:56)
[2017-02-21] MEDS: MAGNESIUM OXIDE 400 MG TAB PO SCH (08:11)
[2017-02-21] MEDS: POTASSIUM CHLORIDE 10 MEQ TABCR PO SCH ×2 (08:11→20:58)
[2017-02-21] MEDS: FUROSEMIDE 40 MG TAB PO SCH (08:11)
[2017-02-21] MEDS: MULTIVITAMIN TAB PO SCH (08:12)
[2017-02-21] MEDS: PANTOprazole SOD 40 MG TAB PO SCH (08:12)
[2017-02-21] MEDS: PAROXETINE 20 MG TAB PO SCH (08:12)
[2017-02-21] MEDS: ASCORBIC ACID 500 MG TAB PO SCH (08:13)
[2017-02-21] MEDS: METOPROLOL SUCC 25MG EXT REL TAB PO SCH ×2 (08:13→21:03)
[2017-02-21] MEDS: OXYCODONE/ACETAMINOPHEN 5-325 TAB PO PRN ×2 (08:14→16:15)
[2017-02-21] MEDS: SODIUM CHLORIDE 0.9% 1000ML 1,000 ML IV SCH (09:33)
[2017-02-21] MEDS: ACETAMINOPHEN 325 MG TAB PO PRN ×2 (09:55→15:13)
--- NOTE | 2017-02-21 12:30 | Progress Note ---
Internal Med Progress Note Date of Service: Feb 21, 2017. Provider Documentation: SUBJECTIVE: Seen and examined at bedside. States dizziness is resolved and her appetite is improving Has intermittent cough Also state shaving some pain at multiple sites Denies chest pain, SOB. OBJECTIVE: Vital Signs-as noted below Physical Exam: General Appearance:Moderately built and nourished, no apparent distress Head: normocephalic, Atraumatic Eyes: normal inspection, EOMI, PERRL Neck: supple, Trachea midline Respiratory/Chest: Normal breath sounds, + creps Cardiovascular: S1, S2, No murmur Abdomen/GI:Soft, Non tender, Bowel sounds present Extremities/Musculoskelatal:normal inspection, 1+ b/l edema Neurologic/Psych: grossly no focal neurological deficits Skin: normal color, warm Lab data as noted below. ASSESSMENT & PLAN: Patient is an 81 yr female PMH of CKD III, chronic anemia, h/o multiple PEs on coumadin, CAD s/p RCA stent, diastolic CHF and h/o recurrent UTIs who presents after a fall and was found to have a UTI. UTI: Metabolic Encephalopathy Outpatient cultures grew 100,000 U Klebsiella, resistant to only ampicillin. H/o recurrent UTIs Continue IV ceftriaxone CT head: No acute intracranial findings Urine culture:pending Hypercalcemia: Corrected calcium levels:13.4 >>>12.0 DC all Calcium Vitamin D supplements on IV fluids>>>. Will DC as patient is likely getting volume overload PTH:low so no primary hyperparathyroidism Vitamin D levels:wnl PrTH, SPEP/UPEP, Angiotensin I levels: pending Appreciate Nephrology Input H/o fall: CT head: no acute process PT/OT May benefit from rehab placement L knee pain: Likely secondary to fall XR: chronic findings as well as small joint effusion. Seen by ortho last admission and s/p shots Pain control PT/OT H/o Multiple PEs: On coumadin: Increase to 2mg today Monitor INR: 1.7 today CAD s/p RCA stent: No anginal symptoms. Continue home meds. Obstructive Lung Disease: stable Continue home oxygen of 2L NC. Continue Advair, Duonebs. CHF 2/2 Aortic stenosis and diastolic function: S/P AV replacement in 2016. Stable No pulmonary edema present on CXR Continue Lasix 40mg daily. CKD III: Cr at baseline Monitor renal function Chronic anemia: Hgb 10.1 on admission. H/o GI bleeds Continue iron supplement. No acute bleeding issues DVT Px: on Coumadin Code status: Full Code Disposition: To be determined Vital Signs: Date Time Temp Pulse Resp B/P (MAP) Pulse Ox O2 Delivery O2 Flow Rate FiO2 02/21/17 08:00 Nasal Cannula 2.0 02/21/17 07:47 36.6 81 16 135/84 (101) 96 Room Air 02/21/17 00:30 Nasal Cannula 2.0 02/20/17 23:25 37.1 79 17 90/56 (67) 95 Nasal Cannula 2.0 02/20/17 21:18 36.7 81 18 128/72 (90) 98 Nasal Cannula 3.0 02/20/17 16:00 99 Nasal Cannula 3.0 02/20/17 15:04 36.9 86 18 111/71 (84) 99 Nasal Cannula 3.0 Lab Results: Results Past 24 Hours Test 02/20/17 12:43 02/21/17 07:06 02/21/17 11:20 Range/Units Prothrombin Time 19.1 9.0-12.0 SECONDS Prothromb Time International Ratio 1.7 0.9-1.1 Sodium Level 140 136-145 mmol/L Potassium Level 3.8 3.5-5.1 mmol/L Chloride Level 108 98-107 mmol/L Carbon Dioxide Level 28 21-32 mmol/L Anion Gap 4.0 3-11 mmol/L Blood Urea Nitrogen 20 7-18 mg/dl Creatinine 1.40 0.60-1.20 mg/dl Est Creatinine Clear Calc Drug Dose 26.6 ml/min Estimated GFR () 40.2 Estimated GFR (Non- 34.7 BUN/Creatinine Ratio 14.1 10-20 Random Glucose 100 70-99 mg/dl Calcium Level 10.9 8.5-10.1 mg/dl Urine Color YELLOW Urine Appearance CLEAR CLEAR Urine pH 6.0 4.5-7.5 Urine Specific [place] 1.012 1.000-1.030 Urine Protein NEG NEG Urine Glucose (UA) NEG NEG Urine Ketones NEG NEG Urine Occult Blood NEG NEG Urine Nitrite NEG NEG Urine Bilirubin NEG NEG Urine Urobilinogen NEG NEG Urine Leukocyte Esterase SMALL NEG Urine WBC (Auto) 10-30 0-5 /hpf Urine RBC (Auto) 0-4 0-4 /hpf Urine Hyaline Casts (Auto) 1-5 0-5 /lpf Urine Epithelial Cells (Auto) 10-20 0-5 /lpf Urine Bacteria (Auto) NEG NEG Microbiology Results 02/21/17 Urine Culture, Received Pending
[2017-02-21 12:31] LABS: URINE APPEARANCE CLEAR (CLEAR); URINE BILIRUBIN NEG (NEG); URINE COLOR YELLOW; URINE NITRITE NEG (NEG); URINE SPECIFIC GRAVITY 1.012 (1.000-1.030); UROBILINOGEN NEG (NEG)
[2017-02-21 12:32] LABS: MANUAL MICROSCOPIC REQUIRED? NO; REVIEW REQ? NO
--- NOTE | 2017-02-21 13:26 | Nephrology Progress Note ---
Nephrology Progress Note Date of Service: Feb 21, 2017. Subjective c/o chronic stable L shoulder/knee pain; moving bowels/bladder; no voiding sx; some exertional dyspnea Objective Date Time Temp Pulse Resp B/P (MAP) Pulse Ox O2 Delivery O2 Flow Rate FiO2 02/21/17 08:00 Nasal Cannula 2.0 02/21/17 07:47 36.6 81 16 135/84 (101) 96 Room Air 02/21/17 00:30 Nasal Cannula 2.0 02/20/17 23:25 37.1 79 17 90/56 (67) 95 Nasal Cannula 2.0 02/20/17 21:18 36.7 81 18 128/72 (90) 98 Nasal Cannula 3.0 02/20/17 16:00 99 Nasal Cannula 3.0 02/20/17 15:04 36.9 86 18 111/71 (84) 99 Nasal Cannula 3.0 Physical Exam: GENERAL: Awake, alert, oriented x3. some pscyhomotor slowing, on 02NC EYES: No scleral icterus. EARS, NOSE, THROAT: drier tender mucous membranes. NECK: Supple. PULMONARY: bibasilar crackles, very kyphotic spine, R more decreased than L CARDIAC: Regular rate and rhythm. SM ABDOMEN: Bowel sounds positive, soft, nontender. no lee EXTREMITIES: Tender extremities to palpation. No significant clubbing, cyanosis or edema. NEUROLOGICALLY: brandon, fluent though slightly delayed speech DERM: No rash or ulcers noted. Current Inpatient Medications Medications (Trade) Dose Ordered Sig/Rosi Route Start Time Stop Time Status Last Admin Dose Admin Miscellaneous (Iv Fluids Completed) 1 ea PRN PRN N/A 02/19/17 17:00 02/19/18 16:59 Acetaminophen (Tylenol Tab) 650 mg Q4H PRN PO 02/19/17 17:15 03/21/17 17:14 02/21/17 09:55 650 MG Ondansetron HCl (Zofran Inj) 4 mg Q6H PRN IV 02/19/17 17:15 03/21/17 17:14 Ceftriaxone Sodium 1 gm/ Dextrose 50 ml @ 100 mls/hr Q24H IV 02/19/17 19:00 02/24/17 18:59 02/20/17 18:37 100 MLS/HR Albuterol Sulfate (Ventolin 0.083% 2.5MG/3ML Neb) 2.5 mg QID PRN INH 02/19/17 17:30 03/21/17 17:29 Ferrous Sulfate (Feosol Tab) 325 mg BID PO 02/19/17 21:00 03/21/17 20:59 02/20/17 21:24 325 MG Salmeterol Xinafoate/ Fluticasone (Advair Diskus 250/50 Inh) 1 puff BID INH 02/19/17 21:00 03/21/17 20:59 02/21/17 08:08 1 PUFF Furosemide (Lasix Tab) 40 mg DAILY PO 02/20/17 09:00 03/22/17 08:59 02/21/17 08:11 40 MG Lorazepam (Ativan Tab) 0.5 mg HS PRN PO 02/19/17 17:30 03/21/17 17:29 02/20/17 21:16 0.5 MG Magnesium Oxide (Mag-Ox Tab) 400 mg DAILY PO 02/20/17 09:00 03/22/17 08:59 02/21/17 08:11 400 MG Metoprolol Succinate (Toprol Xl Tab) 12.5 mg BID PO 02/19/17 21:00 03/21/17 20:59 02/21/17 08:13 12.5 MG Multivitamins (Multivitamin Tab) 1 tab DAILY PO 02/20/17 09:00 03/22/17 08:59 02/21/17 08:12 1 TAB Oxycodone/ Acetaminophen (Percocet 5-325mg Tab) 1 tab Q8H PRN PO 02/19/17 17:30 03/05/17 17:29 02/21/17 08:14 1 TAB Pantoprazole Sodium (Protonix Tab) 40 mg DAILY PO 02/20/17 09:00 03/22/17 08:59 02/21/17 08:12 40 MG Prednisone (PredniSONE TAB) 5 mg DAILY PO 02/20/17 09:00 03/22/17 08:59 02/21/17 08:12 5 MG Ascorbic Acid (Vitamin C Tab) 500 mg DAILY PO 02/20/17 09:00 03/22/17 08:59 02/21/17 08:13 500 MG Paroxetine HCl (pAXil TAB) 40 mg DAILY PO 02/20/17 09:00 03/22/17 08:59 02/21/17 08:12 40 MG Potassium Chloride (Klor-Con M10) 10 meq BID PO 02/19/17 21:00 03/21/17 20:59 02/21/17 08:11 10 MEQ Sodium Chloride 1,000 ml @ 75 mls/hr [id number] IV 02/20/17 09:15 03/22/17 09:14 02/21/17 09:33 75 MLS/HR Warfarin Sodium (Coumadin Tab) 2 mg DAILY@1600 PO 02/20/17 16:00 03/22/17 15:59 02/20/17 16:12 2 MG Last 24 Hours Test 02/20/17 12:43 02/21/17 07:06 02/21/17 11:20 Prothrombin Time 19.1 SECONDS Prothromb Time International Ratio 1.7 Sodium Level 140 mmol/L Potassium Level 3.8 mmol/L Chloride Level 108 mmol/L Carbon Dioxide Level 28 mmol/L Anion Gap 4.0 mmol/L Blood Urea Nitrogen 20 mg/dl Creatinine 1.40 mg/dl Est Creatinine Clear Calc Drug Dose 26.6 ml/min Estimated GFR () 40.2 Estimated GFR (Non- 34.7 BUN/Creatinine Ratio 14.1 Random Glucose 100 mg/dl Calcium Level 10.9 mg/dl Date/Time Source Procedure Growth Status 02/21/17 11:20 Urine , Clean Catch Urine Culture Pending Received Assessment & Plan 81 y/o F w/ CKD3 baseline creatinine 1.3, HTN, recurrent uti, AVR a/w hypercalcemia >>Hypercalcemia. prior to admission on calcium supplementation as well as vitamin D. Leading theory at this point is that the patient had urinary tract infection, became dehydrated with UTI and with the underlying calcium supplementation calcium levels worsened >> Ca improving w/ IVF and abtx to tx uti. -for now ivf on hold d/t worries about volume overload; cont to hold supplements -take care w/ coconut water which has K but also some Ca -no primary hyperparathyroidism given the appropriately low PTH levels, vitamin D levels are normal as well. Pending Asif PTHrP and SPEP; however, will be several days before those levels come back. -hold on giving high dose steroids and/or bisphosphonate at this time and treat conservatively until other serologies come back. >>Chronic kidney disease stage 3 with creatinine of 1.3 on admission, peaked 1.5 , down to 1.4 today. CKD stage III from underlying hypertension and advanced age. No diabetes and does not smoke. -daily bmp -needs to establish care nonemergent CKD clinic as outpatient upon discharge Appreciate consultation; will follow with you.
[2017-02-21] MEDS: WARFARIN SOD 2 MG TAB PO SCH (16:16)
[2017-02-21 16:29] VITALS: BP 114/69; PULSE 79; TEMP 36.3; O2SAT 99
[2017-02-21] MEDS: CEFTRIAXONE SOD INJ 1 GM in DEXTROSE 5% ADD-VANTAGE 50ML 50 ML IV SCH ×2 (18:26→20:56)
[2017-02-21] MEDS: LORAZEPAM 0.5 MG TAB PO PRN (20:57)
[2017-02-21] MEDS: FERROUS SULFATE 325 MG TAB PO SCH (20:57)
[2017-02-21 21:00] VITALS: BP 136/73; PULSE 74; O2SAT 98
[2017-02-22 00:16] VITALS: BP 118/68; PULSE 74; TEMP 36.4; O2SAT 96
[2017-02-22 06:52] LABS: INR 2.2 (0.9-1.1); PROTHROMBIN TIME (PATIENT) 24.7 SECONDS (9.0-12.0)
[2017-02-22 07:45] LABS: BUN/CREATININE RATIO 14.4 (10-20); CALCIUM 10.7 mg/dl (8.5-10.1); CREATININE 1.3 mg/dl (0.60-1.20); POTASSIUM 4.1 mmol/L (3.5-5.1)
[2017-02-22 08:06] VITALS: BP 135/79; PULSE 85; TEMP 36.4; O2SAT 100
[2017-02-22] MEDS: FERROUS SULFATE 325 MG TAB PO SCH ×2 (09:14→21:07)
[2017-02-22] MEDS: FLUTICASONE/SALMETEROL 250/50 (ADVAIR) 14 PUFF/1 INHALER INH SCH ×2 (09:14→21:05)
[2017-02-22] MEDS: MULTIVITAMIN TAB PO SCH (09:15)
[2017-02-22] MEDS: MAGNESIUM OXIDE 400 MG TAB PO SCH (09:15)
[2017-02-22] MEDS: POTASSIUM CHLORIDE 10 MEQ TABCR PO SCH ×2 (09:15→21:07)
[2017-02-22] MEDS: FUROSEMIDE 40 MG TAB PO SCH (09:15)
[2017-02-22] MEDS: PANTOprazole SOD 40 MG TAB PO SCH (09:16)
[2017-02-22] MEDS: ASCORBIC ACID 500 MG TAB PO SCH (09:16)
[2017-02-22] MEDS: METOPROLOL SUCC 25MG EXT REL TAB PO SCH ×2 (09:16→21:09)
[2017-02-22] MEDS: PAROXETINE 20 MG TAB PO SCH (09:16)
[2017-02-22] MEDS: OXYCODONE/ACETAMINOPHEN 5-325 TAB PO PRN ×2 (09:17→17:42)
--- NOTE | 2017-02-22 10:49 | Progress Note ---
Internal Med Progress Note Date of Service: Feb 22, 2017. Provider Documentation: SUBJECTIVE: Seen and examined at bedside. States having SOB on exertion, cough with clear expectoration Reports bilateral LE pain on ambulation Denies chest pain. OBJECTIVE: Vital Signs-as noted below Physical Exam: General Appearance:Moderately built and nourished, no apparent distress Head: normocephalic, Atraumatic Eyes: normal inspection, EOMI, PERRL Neck: supple, Trachea midline Respiratory/Chest: Normal breath sounds, + b/l creps Cardiovascular: S1, S2, No murmur Abdomen/GI:Soft, Non tender, Bowel sounds present Extremities/Musculoskelatal:normal inspection, 1-2+ b/l edema Neurologic/Psych: grossly no focal neurological deficits Skin: normal color, warm Lab data as noted below. ASSESSMENT & PLAN: Patient is an 81 yr female PMH of CKD III, chronic anemia, h/o multiple PEs on coumadin, CAD s/p RCA stent, diastolic CHF and h/o recurrent UTIs who presents after a fall and was found to have a UTI. UTI: Metabolic Encephalopathy Outpatient cultures grew 100,000 U Klebsiella, resistant to only ampicillin. H/o recurrent UTIs S/P IV ceftriaxone for 2 days: will switch to PO Ceftin (Patient refused IV antibiotics) CT head: No acute intracranial findings Urine culture:pending Hypercalcemia: Corrected calcium levels:13.4 >>>12.0 DC all Calcium Vitamin D supplements on IV fluids>>>. Will DC as patient is likely getting volume overload PTH:low so no primary hyperparathyroidism Vitamin D levels:wnl PrTH, SPEP/UPEP, Angiotensin I levels: pending Appreciate Nephrology Input H/o fall: CT head: no acute process PT/OT Will benefit from rehab placement L knee pain: Likely secondary to fall XR: chronic findings as well as small joint effusion. Seen by ortho last admission and s/p shots Pain control PT/OT H/o Multiple PEs: On Coumadin Monitor INR: 2.2 today CAD s/p RCA stent: No anginal symptoms. Continue home meds. Obstructive Lung Disease: stable Continue home oxygen of 2L [place]. Continue Advair, Duonebs. CHF 2/2 Aortic stenosis and diastolic function: S/P AV replacement in 2016. No pulmonary edema present on initial CXR Continue Lasix 40mg daily. Will give a dose of IV Lasix 20mg as patient feels SOB and leg swelling recheck CXR CKD III: Cr at baseline Monitor renal function Cr:1.3 Chronic anemia: Hgb 10.1 on admission. H/o GI bleeds Continue iron supplement. 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 Vital Signs: Date Time Temp Pulse Resp B/P (MAP) Pulse Ox O2 Delivery O2 Flow Rate FiO2 02/22/17 08:06 36.4 85 20 135/79 (97) 100 02/22/17 00:16 36.4 74 18 118/68 (85) 96 Nasal Cannula 2.0 02/22/17 00:00 Nasal Cannula 2.0 02/21/17 21:00 74 16 136/73 (94) 98 Nasal Cannula 2.0 02/21/17 20:00 Nasal Cannula 2.0 02/21/17 16:29 36.3 79 18 114/69 (84) 99 Nasal Cannula 2.0 02/21/17 16:00 Nasal Cannula 2.0 Lab Results: Results Past 24 Hours Test 02/21/17 11:20 02/22/17 06:34 Range/Units Urine Color YELLOW Urine Appearance CLEAR CLEAR Urine pH 6.0 4.5-7.5 Urine Specific [place] 1.012 1.000-1.030 Urine Protein NEG NEG Urine Glucose (UA) NEG NEG Urine Ketones NEG NEG Urine Occult Blood NEG NEG Urine Nitrite NEG NEG Urine Bilirubin NEG NEG Urine Urobilinogen NEG NEG Urine Leukocyte Esterase SMALL NEG Urine WBC (Auto) 10-30 0-5 /hpf Urine RBC (Auto) 0-4 0-4 /hpf Urine Hyaline Casts (Auto) 1-5 0-5 /lpf Urine Epithelial Cells (Auto) 10-20 0-5 /lpf Urine Bacteria (Auto) NEG NEG Prothrombin Time 24.7 9.0-12.0 SECONDS Prothromb Time International Ratio 2.2 0.9-1.1 Sodium Level 142 136-145 mmol/L Potassium Level 4.1 3.5-5.1 mmol/L Chloride Level 109 98-107 mmol/L Carbon Dioxide Level 25 21-32 mmol/L Anion Gap 8.0 3-11 mmol/L Blood Urea Nitrogen 19 7-18 mg/dl Creatinine 1.30 0.60-1.20 mg/dl Est Creatinine Clear Calc Drug Dose 28.7 ml/min Estimated GFR () 43.9 Estimated GFR (Non- 37.9 BUN/Creatinine Ratio 14.4 10-20 Random Glucose 90 70-99 mg/dl Calcium Level 10.7 8.5-10.1 mg/dl Microbiology Results 02/21/17 Urine Culture, Received Pending
[2017-02-22] MEDS ORDERED: FUROSEMIDE INJ 20 MG in SYRINGE 0 ML IV STA (10:52)
[2017-02-22] MEDS: CEFUROXIME AXETIL 250 MG TAB PO SCH (12:02)
--- NOTE | 2017-02-22 14:40 | DIAGNOSTIC IMAGING REPORT ---
CHEST ONE VIEW PORTABLE CLINICAL HISTORY: SOB, cough COMPARISON STUDY: 02/19/2017 FINDINGS: The heart is enlarged. There is a retrocardiac opacity consistent with a hiatal hernia. There is mild interstitial thickening similar to the preceding study. There are healing right-sided rib fractures. There is no overt failure. There is minor blunting of the left lateral costophrenic angle. IMPRESSION: Stable interstitial thickening. No evidence of lobar consolidation. Electronically signed by: Austin Harman M.D. 02/22/2017 2:38 PM Dictated Date/Time: 02/22/2017 2:37 PM
[2017-02-22 16:23] VITALS: BP 115/73; PULSE 91; TEMP 36.4; O2SAT 98
[2017-02-22] MEDS: WARFARIN SOD 1 MG TAB PO SCH (16:25)
[2017-02-22] MEDS: LORAZEPAM 0.5 MG TAB PO PRN (21:06)
[2017-02-22] MEDS: ACETAMINOPHEN 325 MG TAB PO PRN (22:22)
[2017-02-22 23:39] VITALS: BP 124/72; PULSE 82; TEMP 36.4; O2SAT 99
[2017-02-23] MEDS: OXYCODONE/ACETAMINOPHEN 5-325 TAB PO PRN ×2 (06:21→16:22)
[2017-02-23 07:07] LABS: BASO % 0.8 %; BASO ABS # 0.05 K/uL (0-0.2); COMPLETE YES; EOS % 3.1 %; HEMATOCRIT 31.3 % (37-47); IG% 0.9 %; LYMPH ABS # 1.74 K/uL (1.2-3.4); MEAN CELL VOLUME 94.3 fL (80-100); MEAN CORPUSCULAR HEMOGLOBIN 29.2 pg (25-34); MEAN PLATELET VOLUME 9.3 fL (7.4-10.4); MONO % 15.4 %; NEUT % 52.8 %; PLATELET COUNT 393 K/uL (130-400); RED BLOOD COUNT 3.32 M/uL (4.2-5.4); WHITE BLOOD COUNT 6.44 K/uL (4.8-10.8)
[2017-02-23 07:12] VITALS: BP 111/69; PULSE 82; TEMP 36.5; O2SAT 97
[2017-02-23 07:13] LABS: INR 2.6 (0.9-1.1)
[2017-02-23 07:36] LABS: CALCIUM 10.3 mg/dl (8.5-10.1); CREATININE 1.3 mg/dl (0.60-1.20); POTASSIUM 3.9 mmol/L (3.5-5.1)
[2017-02-23] MEDS: FERROUS SULFATE 325 MG TAB PO SCH (08:04)
[2017-02-23] MEDS: PAROXETINE 20 MG TAB PO SCH (08:04)
[2017-02-23] MEDS: METOPROLOL SUCC 25MG EXT REL TAB PO SCH (08:04)
[2017-02-23] MEDS: PANTOprazole SOD 40 MG TAB PO SCH (08:04)
[2017-02-23] MEDS: CEFUROXIME AXETIL 250 MG TAB PO SCH (08:05)
[2017-02-23] MEDS: MULTIVITAMIN TAB PO SCH (08:05)
[2017-02-23] MEDS: FUROSEMIDE 40 MG TAB PO SCH (08:05)
[2017-02-23] MEDS: ASCORBIC ACID 500 MG TAB PO SCH (08:05)
[2017-02-23] MEDS: MAGNESIUM OXIDE 400 MG TAB PO SCH (08:05)
[2017-02-23] MEDS: POTASSIUM CHLORIDE 10 MEQ TABCR PO SCH (08:05)
[2017-02-23] MEDS: FLUTICASONE/SALMETEROL 250/50 (ADVAIR) 14 PUFF/1 INHALER INH SCH (08:06)
--- NOTE | 2017-02-23 10:11 | Nephrology Progress Note ---
Nephrology Progress Note Date of Service: Feb 23, 2017. Subjective had lasix iv 20 mg x 1 yesterday; fewer c/o pain today; moving bowels/bladder; no voiding sx; still w/ exertional dyspnea Objective Date Time Temp Pulse Resp B/P (MAP) Pulse Ox O2 Delivery O2 Flow Rate FiO2 02/23/17 08:00 Room Air 02/23/17 07:12 36.5 82 18 111/69 (83) 97 Nasal Cannula 2.0 02/23/17 00:00 Nasal Cannula 2.0 02/22/17 23:39 36.4 82 18 124/72 (89) 99 Nasal Cannula 2.0 02/22/17 20:00 Nasal Cannula 2.0 02/22/17 16:23 36.4 91 18 115/73 (87) 98 Nasal Cannula 2.0 02/22/17 16:00 Nasal Cannula 2.0 Physical Exam: GENERAL: Awake, alert, oriented x3. some pscyhomotor slowing, on 02NC EYES: No scleral icterus. 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 NECK: Supple. PULMONARY: bibasilar crackles, very kyphotic spine, R again more decreased than L CARDIAC: Regular rate and rhythm. SM ABDOMEN: Bowel sounds positive, soft, nontender. no lee EXTREMITIES: No significant clubbing, cyanosis or edema. NEUROLOGICALLY: brandon, fluent though slightly delayed speech DERM: No rash or ulcers noted; flushed face. Current Inpatient Medications Medications (Trade) Dose Ordered Sig/Rosi Route Start Time Stop Time Status Last Admin Dose Admin Miscellaneous (Iv Fluids Completed) 1 ea PRN PRN N/A 02/19/17 17:00 02/19/18 16:59 Acetaminophen (Tylenol Tab) 650 mg Q4H PRN PO 02/19/17 17:15 03/21/17 17:14 02/22/17 22:22 650 MG Ondansetron HCl (Zofran Inj) 4 mg Q6H PRN IV 02/19/17 17:15 03/21/17 17:14 Albuterol Sulfate (Ventolin 0.083% 2.5MG/3ML Neb) 2.5 mg QID PRN INH 02/19/17 17:30 03/21/17 17:29 Ferrous Sulfate (Feosol Tab) 325 mg BID PO 02/19/17 21:00 03/21/17 20:59 02/23/17 08:04 325 MG Salmeterol Xinafoate/ Fluticasone (Advair Diskus 250/50 Inh) 1 puff BID INH 02/19/17 21:00 03/21/17 20:59 02/23/17 08:06 1 PUFF Furosemide (Lasix Tab) 40 mg DAILY PO 02/20/17 09:00 03/22/17 08:59 02/23/17 08:05 40 MG Lorazepam (Ativan Tab) 0.5 mg HS PRN PO 02/19/17 17:30 03/21/17 17:29 02/22/17 21:06 0.5 MG Magnesium Oxide (Mag-Ox Tab) 400 mg DAILY PO 02/20/17 09:00 03/22/17 08:59 02/23/17 08:05 400 MG Metoprolol Succinate (Toprol Xl Tab) 12.5 mg BID PO 02/19/17 21:00 03/21/17 20:59 02/23/17 08:04 12.5 MG Multivitamins (Multivitamin Tab) 1 tab DAILY PO 02/20/17 09:00 03/22/17 08:59 02/23/17 08:05 1 TAB Oxycodone/ Acetaminophen (Percocet 5-325mg Tab) 1 tab Q8H PRN PO 02/19/17 17:30 03/05/17 17:29 02/23/17 06:21 1 TAB Pantoprazole Sodium (Protonix Tab) 40 mg DAILY PO 02/20/17 09:00 03/22/17 08:59 02/23/17 08:04 40 MG Prednisone (PredniSONE TAB) 5 mg DAILY PO 02/20/17 09:00 03/22/17 08:59 02/23/17 08:05 5 MG Ascorbic Acid (Vitamin C Tab) 500 mg DAILY PO 02/20/17 09:00 03/22/17 08:59 02/23/17 08:05 500 MG Paroxetine HCl (pAXil TAB) 40 mg DAILY PO 02/20/17 09:00 03/22/17 08:59 02/23/17 08:04 40 MG Potassium Chloride (Klor-Con M10) 10 meq BID PO 02/19/17 21:00 03/21/17 20:59 02/23/17 08:05 10 MEQ Warfarin Sodium (Coumadin Tab) 1 mg DAILY@1600 PO 02/22/17 16:00 03/22/17 15:59 02/22/17 16:25 1 MG Cefuroxime Axetil (Ceftin Tab) 250 mg DAILY PO 02/22/17 12:00 03/01/17 09:01 02/23/17 08:05 250 MG Last 24 Hours Test 02/23/17 06:42 White Blood Count 6.44 K/uL Red Blood Count 3.32 M/uL Hemoglobin 9.7 g/dL Hematocrit 31.3 % Mean Corpuscular Volume 94.3 fL Mean Corpuscular Hemoglobin 29.2 pg Mean Corpuscular Hemoglobin Concent 31.0 g/dl Platelet Count 393 K/uL Mean Platelet Volume 9.3 fL Neutrophils (%) (Auto) 52.8 % Lymphocytes (%) (Auto) 27.0 % Monocytes (%) (Auto) 15.4 % Eosinophils (%) (Auto) 3.1 % Basophils (%) (Auto) 0.8 % Neutrophils # (Auto) 3.40 K/uL Lymphocytes # (Auto) 1.74 K/uL Monocytes # (Auto) 0.99 K/uL Eosinophils # (Auto) 0.20 K/uL Basophils # (Auto) 0.05 K/uL RDW Standard Deviation 51.9 fL RDW Coefficient of Variation 15.1 % Immature Granulocyte % (Auto) 0.9 % Immature Granulocyte # (Auto) 0.06 K/uL Prothrombin Time 29.0 SECONDS Prothromb Time International Ratio 2.6 Sodium Level 142 mmol/L Potassium Level 3.9 mmol/L Chloride Level 106 mmol/L Carbon Dioxide Level 27 mmol/L Anion Gap 9.0 mmol/L Blood Urea Nitrogen 17 mg/dl Creatinine 1.30 mg/dl Est Creatinine Clear Calc Drug Dose 28.7 ml/min Estimated GFR () 43.9 Estimated GFR (Non- 37.9 BUN/Creatinine Ratio 13.0 Random Glucose 93 mg/dl Calcium Level 10.3 mg/dl Assessment & Plan 81 y/o F w/ CKD3 baseline creatinine 1.3, HTN, recurrent uti, AVR a/w hypercalcemia >>Hypercalcemia. prior to admission on calcium supplementation as well as vitamin D. Leading theory at this point is that the patient had urinary tract infection, became dehydrated with UTI and with the underlying calcium supplementation calcium levels worsened >> Ca improving w/ IVF and abtx to tx uti. -for now ivf on hold d/t worries about volume overload; cont to hold supplements -take care w/ coconut water which has K but also some Ca; note also her ensure has 30% ca daily needs per bottle but would continue this d/t malnutrition/high protein -no primary hyperparathyroidism given the appropriately low PTH levels, vitamin D levels are normal as well. Pending Asif PTHrP and SPEP; however, will be several days before those levels come back. -hold on giving high dose steroids and/or bisphosphonate at this time and treat conservatively until other serologies come back. >>Chronic kidney disease stage 3 with creatinine of 1.3 on admission, peaked 1.5 , down to 1.3 today. CKD stage III from underlying hypertension and advanced age. No diabetes and does not smoke. -daily bmp -needs to establish care nonemergent CKD clinic as outpatient upon discharge chronic hypoxic respiratory failure -CXR 02/22 shows no pna, no worse vasc congestion; cont prn lasix low dose based on sx Appreciate consultation; will follow with you.
--- NOTE | 2017-02-23 10:35 | Progress Note ---
Internal Med Progress Note Date of Service: Feb 23, 2017. Provider Documentation: SUBJECTIVE: Seen and examined at bedside. Feels better today Slept well overnight States pain is controlled Denies SOB, chest pain cough is improved OBJECTIVE: Vital Signs-as noted below Physical Exam: General Appearance:Moderately built and nourished, no apparent distress Head: normocephalic, Atraumatic Eyes: normal inspection, EOMI, PERRL Neck: supple, Trachea midline Respiratory/Chest: Normal breath sounds, + b/l creps Cardiovascular: S1, S2, No murmur Abdomen/GI:Soft, Non tender, Bowel sounds present Extremities/Musculoskelatal:normal inspection, 1+ b/l edema Neurologic/Psych: grossly no focal neurological deficits Skin: normal color, warm Lab data as noted below. ASSESSMENT & PLAN: Patient is an 81 yr female PMH of CKD III, chronic anemia, h/o multiple PEs on Coumadin, CAD s/p RCA stent, diastolic CHF and h/o recurrent UTIs who presents after a fall and was found to have a UTI. UTI: Metabolic Encephalopathy Outpatient cultures grew 100,000 U Klebsiella, resistant to only ampicillin. H/o recurrent UTIs S/P IV ceftriaxone for 2 days: will switch to PO Ceftin (renally dosed) Day #2 ( Patient refused IV antibiotics) CT head: No acute intracranial findings Urine culture at [facility]: Likely contamination Hypercalcemia: Corrected calcium levels:13.4 >>>12.0 slowly improving Hold all Calcium Vitamin D supplements on IV fluids>>>. Discontinued as patient is likely getting volume overload PTH:low so no primary hyperparathyroidism Vitamin D levels:wnl PrTH, SPEP/UPEP, Angiotensin I levels: pending Appreciate Nephrology Input H/o fall: CT head: no acute process PT/OT Will benefit from rehab placement. Not safe to be discharged home L knee pain: Likely secondary to fall XR: chronic findings as well as small joint effusion. Seen by ortho last admission and s/p shots Pain control PT/OT H/o Multiple PEs: On Coumadin Monitor INR: 2.6 today Monitor INR CAD s/p RCA stent: No anginal symptoms. Continue home meds. Obstructive Lung Disease: stable Continue home oxygen of 2L NC. Continue Jaimee Richardson. CHF 2/2 Aortic stenosis and diastolic function: S/P AV replacement in 2016. No pulmonary edema present on initial CXR Continue PO Lasix 40mg daily. Received a dose of IV Lasix 20mg yesterday repeat CXR:Stable interstitial thickening. No evidence of lobar consolidation CKD III: Cr at baseline Monitor renal function Cr:1.3 Chronic anemia: Hgb 10.1 on admission. H/o GI bleeds Continue iron supplement. 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 Seek Immediate medical attention if your symptoms reoccur or worsen Vital Signs: Date Time Temp Pulse Resp B/P (MAP) Pulse Ox O2 Delivery O2 Flow Rate FiO2 02/23/17 08:00 Room Air 02/23/17 07:12 36.5 82 18 111/69 (83) 97 Nasal Cannula 2.0 02/23/17 00:00 Nasal Cannula 2.0 02/22/17 23:39 36.4 82 18 124/72 (89) 99 Nasal Cannula 2.0 02/22/17 20:00 Nasal Cannula 2.0 02/22/17 16:23 36.4 91 18 115/73 (87) 98 Nasal Cannula 2.0 02/22/17 16:00 Nasal Cannula 2.0 Lab Results: Results Past 24 Hours Test 02/23/17 06:42 Range/Units White Blood Count 6.44 4.8-10.8 K/uL Red Blood Count 3.32 4.2-5.4 M/uL Hemoglobin 9.7 12.0-16.0 g/dL Hematocrit 31.3 37-47 % Mean Corpuscular Volume 94.3 80-100 fL Mean Corpuscular Hemoglobin 29.2 25-34 pg Mean Corpuscular Hemoglobin Concent 31.0 32-36 g/dl Platelet Count 393 130-400 K/uL Mean Platelet Volume 9.3 7.4-10.4 fL Neutrophils (%) (Auto) 52.8 % Lymphocytes (%) (Auto) 27.0 % Monocytes (%) (Auto) 15.4 % Eosinophils (%) (Auto) 3.1 % Basophils (%) (Auto) 0.8 % Neutrophils # (Auto) 3.40 1.4-6.5 K/uL Lymphocytes # (Auto) 1.74 1.2-3.4 K/uL Monocytes # (Auto) 0.99 0.11-0.59 K/uL Eosinophils # (Auto) 0.20 0-0.5 K/uL Basophils # (Auto) 0.05 0-0.2 K/uL RDW Standard Deviation 51.9 36.4-46.3 fL RDW Coefficient of Variation 15.1 11.5-14.5 % Immature Granulocyte % (Auto) 0.9 % Immature Granulocyte # (Auto) 0.06 0.00-0.02 K/uL Prothrombin Time 29.0 9.0-12.0 SECONDS Prothromb Time International Ratio 2.6 0.9-1.1 Sodium Level 142 136-145 mmol/L Potassium Level 3.9 3.5-5.1 mmol/L Chloride Level 106 98-107 mmol/L Carbon Dioxide Level 27 21-32 mmol/L Anion Gap 9.0 3-11 mmol/L Blood Urea Nitrogen 17 7-18 mg/dl Creatinine 1.30 0.60-1.20 mg/dl Est Creatinine Clear Calc Drug Dose 28.7 ml/min Estimated GFR () 43.9 Estimated GFR (Non- 37.9 BUN/Creatinine Ratio 13.0 10-20 Random Glucose 93 70-99 mg/dl Calcium Level 10.3 8.5-10.1 mg/dl
[2017-02-23] MEDS ORDERED: CFT250 PO (15:30)
--- NOTE | 2017-02-23 15:32 | Discharge Instructions ---
Discharge Instructions Date of Service Feb 23, 2017. Admission Reason for Admission: Ambulatory Dysfunction, Falls Discharge Discharge Diagnosis / Problem: UTI, Fall, Hypercalcemia Discharge Goals Goal(s): Decrease discomfort, Improve function Activity Recommendations Activity Limitations: resume your previous activity Exercise/Sports Limitations: as tolerated . Instructions / Follow-Up Instructions / Follow-Up Follow up with on 02/27/17 at 12:45pm Complete the antibiotic course as prescribed Follow up with your primary care doctor regarding blood work which is pending ( PrTH, SPEP/UPEP, Angiotensin I levels) and further care per your doctor Do not take Vitamin D and calcium supplements until your doctor recommends you to resume them. Seek Immediate medical attention if your symptoms reoccur or worsen Current Hospital Diet Patient's current hospital diet: AHA Diet (Heart Healthy) Discharge Diet Recommended Diet: AHA Diet (Heart Healthy) Pending Studies Studies pending at discharge: yes List of pending studies: Hypercalcemia workup Medical Emergencies . Who to Call and When: Medical Emergencies: If at any time you feel your situation is an emergency, please call 911 immediately. . Non-Emergent Contact Non-Emergency issues call your: Primary Care Provider Call Non-Emergent contact if: you have a fever, your pain is not controlled, your pain is worsening, your pain is unusual for you, you have any medication questions If your symptoms reoccur or worsen . . "Provider Documentation" section prepared by Ronen Asif. . VTE Core Measure Inpt VTE Proph given/why not?: Warfarin (Coumadin)
--- NOTE | 2017-02-23 15:36 | Discharge Summary ---
Discharge Summary Date of Service Feb 23, 2017. Discharge Summary Admission Date: Feb 20, 2017 at 12:06 Discharge Date: Feb 23, 2017 Discharge Disposition: Home with services Principal Diagnosis: UTI, Fall, Hypercalcemia Procedures: L Knee X ray: . Mild irregularity involving the anterior cortex of one of the lateral femoral condyles as visualized on the lateral view. This may be old. Please correlate with the patient's site of pain 2. Chondrocalcinosis and degenerative change 3. Small joint effusion CT head: 1. No acute intracranial findings. 2. No calvarial fracture. CXR: Stable interstitial thickening and basilar atelectasis. No acute findings. Consultations: Nephrology Pending Studies/Follow-Up: Follow up with on 02/27/17 at 12:45pm Complete the antibiotic course as prescribed Follow up with your primary care doctor regarding blood work which is pending ( PrTH, SPEP/UPEP, Angiotensin I levels) and further care per your doctor Do not take Vitamin D and calcium supplements until your doctor recommends you to resume them. Seek Immediate medical attention if your symptoms reoccur or worsen Medication Reconciliation New Medications: Cefuroxime Axetil (Cefuroxime Axetil) 250 Mg Tab 250 MG PO DAILY for 5 Days, #5 TAB Continued Medications: Acetaminophen (Acetaminophen) 325 Mg Tab 650 MG PO PRN for Pain Albuterol Sulf (Proventil 0.083% 2.5MG/3ML) 2.5 Mg/3 Ml Nebu 2.5 MG INH QID PRN for SOB/Wheezing, EA Ascorbic Acid (Vitamin C) 500 Mg Cap 500 MG PO DAILY take before lunch with ferrous sulfate Ferrous Sulfate (Ferrous Sulfate) 325 Mg Tab 325 MG PO BID for 30 Days take before lunch with ascorbic acid Fluticasone Prop/Salmeterol (Advair Diskus 250/50 60 Dose) 1 Ea Aerp 1 PUFF INH BID, INHALER PT ONLY USES NEEDED Furosemide (Lasix) 20 Mg Tab 40 MG PO DAILY, TAB Home O2 Therapy (Oxygen) Gas 2 LITERS NA UD 2 liters HS and PRN Lorazepam (Lorazepam) 0.5 Mg Tab 0.5 MG PO HS PRN for Insomnia Magnesium Oxide (Mag-Ox) 400 Mg Tab 400 MG PO DAILY, TAB Metoprolol Succinate (Metoprolol Succinate ER) 25 Mg Tabcr 12.5 MG PO BID Multiple Vitamin (Multivitamin) 1 Tab Tab 1 TABLET PO DAILY for 30 Days take with supper Ondansetron Hcl (Zofran) 4 Mg Tab 4 MG PO Q6 PRN for Nausea, TAB Oxycodone/Acetaminophen 5MG/325MG (Percocet 5MG/325MG) Tab 1 TABLET PO Q8H PRN for Pain, TAB Pantoprazole (Protonix) 40 Mg Tab 40 MG PO DAILY, #30 TAB Paroxetine (Paroxetine HCl) 40 Mg Tab 40 MG PO DAILY Potassium Chloride (Potassium Chloride Er) 10 Meq Cap 10 MEQ PO BID for 90 Days, #180 CAP 1 Refill Prednisone (Prednisone) 5 Mg Tab 5 MG PO DAILY Warfarin Sod (Jantoven) 1 Mg Tab 1 MG PO DAILY, TAB Discontinued Medications: Calcium Carbonate (Tums) 500 Mg Chew 500 MG PO BID PRN for Heartburn Calcium/Vitamin D (Os-Ismael 500 Plus D) Tab 1 TAB PO BIDM Cholecalciferol (Vitamin D3) 2,000 Unit Cap 1 CAP PO DAILY for 30 Days, CAP take with supper Admission Information HPI (per Admitting provider): This is a 81yo F with PMH of CKD III, chronic anemia, h/o multiple PEs (on coumadin), CAD s/p RCA stent, CHF 2/2 aortic valve replacement and h/o recurrent UTIs who presents after a fall with with urinary symptoms and confusion. Patient was recently hospitalized at [facility] in early January for sepsis 2/ 2 UTI and then completed rehab at [facility] (was discharged home 6 days ago) . Per son, patient had a low grade fever and dysuria at the time of discharge and had UA and cultures performed but was not started on an empiric antibiotic. Over the past few days, patient has fallen multiple times and become more lethargic and confused. This morning, she was found on the floor by a home health aide and was brought to the ED by ambulance. The patient's fall was unwitnessed and she is having difficulty recalling the nature of the fall. She states that she may have "bumped her head" when sliding off of the toilet. Uses a walker but reports that she did not have it with her when she fell. She currently endorses some pain in her L knee as well as some L shoulder pain ( that is chronic, per son). He says that she is very alert at baseline but seems confused and slow-moving right now. Denies any LOC, headache, visual changes, CP , SOB, abdominal pain, n/v or hematuria. Physical Exam (per Admitting): General Appearance: WD/WN (Sleeping intermittently during exam with some confusion.) Head: normocephalic Eyes: normal inspection, PERRL ENT: normal ENT inspection, hearing grossly normal Neck: supple, no adenopathy Respiratory/Chest: chest non-tender, normal breath sounds, no respiratory distress, no accessory muscle use, + crackles (faint crackles at LLB ) Cardiovascular: regular rate, rhythm, no JVD, no murmur, normal peripheral pulses Abdomen/GI: normal bowel sounds, non tender, soft, no organomegaly Back: normal inspection, no CVA tenderness Extremities/Musculoskelatal: normal inspection, no calf tenderness, no pedal edema, normal range of motion (L knee with swelling, medial bruise and decreased ROM), + swelling (+ trace edema in bilateral LE) Neurologic/Psych: no motor/sensory deficits, + disoriented (Oriented to person and place, not to time. ) Skin: normal color, warm/dry Hospital Course Patient is an 81 yr female PMH of CKD III, chronic anemia, h/o multiple PEs on Coumadin, CAD s/p RCA stent, diastolic CHF and h/o recurrent UTIs who presents after a fall and was found to have a UTI. UTI: Metabolic Encephalopathy Outpatient cultures grew 100,000 U Klebsiella, resistant to only ampicillin. H/o recurrent UTIs S/P IV ceftriaxone for 2 days: will switch to PO Ceftin (renally dosed) Day #2 ( Patient refused IV antibiotics) CT head: No acute intracranial findings Urine culture at [facility]: Likely contamination Hypercalcemia: Corrected calcium levels:13.4 >>>12.0 slowly improving Hold all Calcium Vitamin D supplements on IV fluids>>>. Discontinued as patient is likely getting volume overload PTH:low so no primary hyperparathyroidism Vitamin D levels:wnl PrTH, SPEP/UPEP, Angiotensin I levels: pending Appreciate Nephrology Input H/o fall: CT head: no acute process PT/OT Will benefit from rehab placement. Not safe to be discharged home L knee pain: Likely secondary to fall XR: chronic findings as well as small joint effusion. Seen by ortho last admission and s/p shots Pain control PT/OT H/o Multiple PEs: On Coumadin Monitor INR: 2.6 today Monitor INR CAD s/p RCA stent: No anginal symptoms. Continue home meds. Obstructive Lung Disease: stable Continue home oxygen of 2L NC. Continue Advair, Duonebs. CHF 2/2 Aortic stenosis and diastolic function: S/P AV replacement in 2016. No pulmonary edema present on initial CXR Continue PO Lasix 40mg daily. Received a dose of IV Lasix 20mg yesterday repeat CXR:Stable interstitial thickening. No evidence of lobar consolidation CKD III: Cr at baseline Monitor renal function Cr:1.3 Chronic anemia: Hgb 10.1 on admission. H/o GI bleeds Continue iron supplement. 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 Seek Immediate medical attention if your symptoms reoccur or worsen Total time spent on discharge = 35 minutes This includes examination of the patient, discharge planning, medication reconciliation, and communication with other providers. Discharge Instructions Discharge Instructions Date of Service Feb 23, 2017. Admission Reason for Admission: Ambulatory Dysfunction, Falls Discharge Discharge Diagnosis / Problem: UTI, Fall, Hypercalcemia Discharge Goals Goal(s): Decrease discomfort, Improve function Activity Recommendations Activity Limitations: resume your previous activity Exercise/Sports Limitations: as tolerated . Instructions / Follow-Up Instructions / Follow-Up Follow up with on 02/27/17 at 12:45pm Complete the antibiotic course as prescribed Follow up with your primary care doctor regarding blood work which is pending ( PrTH, SPEP/UPEP, Angiotensin I levels) and further care per your doctor Do not take Vitamin D and calcium supplements until your doctor recommends you to resume them. Seek Immediate medical attention if your symptoms reoccur or worsen Current Hospital Diet Patient's current hospital diet: AHA Diet (Heart Healthy) Discharge Diet Recommended Diet: AHA Diet (Heart Healthy) Pending Studies Studies pending at discharge: yes List of pending studies: Hypercalcemia workup Medical Emergencies . Who to Call and When: Medical Emergencies: If at any time you feel your situation is an emergency, please call 911 immediately. . Non-Emergent Contact Non-Emergency issues call your: Primary Care Provider Call Non-Emergent contact if: you have a fever, your pain is not controlled, your pain is worsening, your pain is unusual for you, you have any medication questions If your symptoms reoccur or worsen . . "Provider Documentation" section prepared by Ronen Asif. . VTE Core Measure Inpt VTE Proph given/why not?: Warfarin (Coumadin) <Electronically signed by Ronen Asif MD> Signed: 02/23/17 1532 Signed: The status of this report is Signed * If report status is Draft, the document has not been finalized by the responsible provider.
[2017-02-23 15:57] VITALS: BP 144/79; PULSE 94; TEMP 36.6; O2SAT 93
[2017-02-23] MEDS: WARFARIN SOD 1 MG TAB PO SCH (16:05)
[2017-02-23 16:09] VITALS: BP 144/79; PULSE 94; TEMP 36.6; O2SAT 93
[2017-02-23 16:36] LABS: ALBUMIN 2.8 G/DL (3.8-4.8); GAMMA GLOBULIN 0.6 G/DL (0.8-1.7); TOTAL PROTEIN 5.5 G/DL (6.2-8.3)
[2017-02-25 11:33] LABS: ALBUMIN % 73.38 %; ALPHA-2-GLOBULIN % 3.47 %; BETA GLOBULIN % 14.57 %; CREATININE UR 41 MG/DL (20-320); GAMMA GLOBULIN % 8.18 %
== END 2017-02-23 18:17 | disposition home health service (06) | DRG 689 ==
LOC: EDBD 10:25 → C.EDA 10:26 → C.MS2W 16:19 → ENRESERV 16:59 → OBSVTOIN 02-20 12:06
PROVIDERS: ADMIT Internal Medicine; ATTEND Internal Medicine
DX: N39.0 Urinary tract infection, site not specified (principal); G93.41 Metabolic encephalopathy; D68.2 Hereditary deficiency of other clotting factors; I50.30 Unspecified diastolic (congestive) heart failure; F17.200 Nicotine dependence, unspecified, uncomplicated; K21.9 Gastro-esophageal reflux disease without esophagitis; I25.10 Atherosclerotic heart disease of native coronary artery without angina pectoris; N18.3 Chronic kidney disease, stage 3 (moderate); F32.9 Major depressive disorder, single episode, unspecified; M81.0 Age-related osteoporosis without current pathological fracture; S80.02XA Contusion of left knee, initial encounter; D64.9 Anemia, unspecified; W19.XXXA Unspecified fall, initial encounter; I12.9 Hypertensive chronic kidney disease with stage 1 through stage 4 chronic kidney disease, or unspecified chronic kidney disease; E83.52 Hypercalcemia; Z99.81 Dependence on supplemental oxygen; Z79.01 Long term (current) use of anticoagulants; Z90.710 Acquired absence of both cervix and uterus

== ENCOUNTER → 2017-03-18 | Outpatient (CLI) | payer OTHER, BC ==
[~2017-03-18] MED LIST changes: +ASCO250T5 PO; -CALC500C3 PO; -CALC500C70 PO; +CEFU1TAB33 PO; +CFT250 PO; -CHOL2000 PO; -CMD2 PO; -CRFUDL PO; +DRGTP12 TD; +FERR325T5 PO; -MIRT15TA PO; +MIRT15TA2 PO; +OMEP20TA14 PO; +PANT40TA PO; -PRT40 PO; +RANI300C PO; +WARF1TAB6 PO
[2017-03-18 13:19] LABS: URINE APPEARANCE TURBID (CLEAR); URINE BILIRUBIN NEG (NEG); URINE COLOR YELLOW; URINE EPITHELIAL CELL AUTO >30 /lpf (0-5); URINE NITRITE NEG (NEG); URINE SPECIFIC GRAVITY 1.013 (1.000-1.030); UROBILINOGEN NEG (NEG)
[2017-03-18 13:27] LABS: MANUAL MICROSCOPIC REQUIRED? NO; REVIEW REQ? YES
== END | disposition home or self-care (01) ==
LOC: C.LABSPEC 12:28
PROVIDERS: ATTEND Internal Medicine
DX: Z01.89 Encounter for other specified special examinations (principal)

== ENCOUNTER 2017-05-07 03:12 | Inpatient (IN) | payer OTHER, BC ==
[~2017-05-07] VITALS: Ht 154.9 cm; Wt 64.0 kg
[~2017-05-07 03:12] MED LIST changes: -ASCO250T5 PO; -CEFU1TAB33 PO; -DRGTP12 TD; -FERR325T5 PO; -MIRT15TA2 PO; -OMEP20TA14 PO; -RANI300C PO
[2017-05-07] MEDS ORDERED: SODIUM CHLORIDE 0.9% 500ML 500 ML IV STA (03:51)
[2017-05-07] MEDS ORDERED: ONDANSETRON INJ 2 MG/ML 2 ML VIAL IV STA (03:51)
[2017-05-07] MEDS ORDERED: MoRPHine SULFATE 4 MG/ML 1 ML CARP\\VIAL IV STA ×2 (03:51→04:37)
[2017-05-07 04:04] LABS: BASO % 0.4 %; BASO ABS # 0.06 K/uL (0-0.2); COMPLETE YES; HEMATOCRIT 34.9 % (37-47); IG% 0.5 %; LYMPH % 15.9 %; LYMPH ABS # 2.46 K/uL (1.2-3.4); MEAN CELL VOLUME 96.7 fL (80-100); MEAN CORPUSCULAR HEMOGLOBIN 30.7 pg (25-34); MEAN CORPUSCULAR HGB CONC 31.8 g/dl (32-36); MEAN PLATELET VOLUME 9.5 fL (7.4-10.4); MONO % 10.4 %; NEUT % 71.8 %; PLATELET COUNT 354 K/uL (130-400); RED BLOOD COUNT 3.61 M/uL (4.2-5.4); WHITE BLOOD COUNT 15.51 K/uL (4.8-10.8)
[2017-05-07 04:19] LABS: BUN/CREATININE RATIO 18.7 (10-20); CALCIUM 10.8 mg/dl (8.5-10.1); CREATININE 1.4 mg/dl (0.60-1.20); POTASSIUM 3.5 mmol/L (3.5-5.1)
[2017-05-07 04:22] LABS: ALB/GLOB RATIO 0.8 (0.9-2)
[2017-05-07] MEDS ORDERED: ASCO250T5 PO (04:29)
[2017-05-07] MEDS ORDERED: FERR325T5 PO (04:29)
[2017-05-07] MEDS ORDERED: WARF1TAB6 PO (04:29)
[2017-05-07] MEDS ORDERED: CEFU1TAB33 PO (04:29)
[2017-05-07] MEDS ORDERED: OMEP20TA14 PO (04:29)
--- NOTE | 2017-05-07 05:11 | EMERGENCY ROOM VISIT NOTE ---
History First contact with patient: 03:40 Chief Complaint: ABDOMINAL PAIN Stated Complaint: VOMITING Nursing Triage Summary: Hasn't felt good for a couple days, abdominal pain last evening. Vomiting started last night, dark. Son reports watery/coffe ground emesis. History of Present Illness The patient is a 81 year old female who presents to the Emergency Room with complaints of abdominal pain and vomiting. The patient states that she was not feeling well for the past few days and developed abdominal pain and vomiting last evening. Her son reports she has had coffee ground emesis. The patient states that she has discomfort in her upper abdomen and has had multiple episodes of vomiting. She has a history of small bowel obstructions and states this feels similar. She rates her discomfort an 8/10. She denies any changes in bowel movements or urinary symptoms. She denies any fevers or shortness of breath. The patient has a history of stage III chronic kidney disease, aortic valve replacement, pulmonary embolism, hysterectomy secondary to cancer and gastroparesis. Review of Systems A complete 10 point review of systems was reviewed with the patient with pertinent positives and negatives as per history of present illness. All else were negative. 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 (8) CKD (chronic kidney disease) stage 3, GFR 30-59 ml/min (9) Depression (10) Diverticulosis Colon (W/O Ment Of Hemorrhage) (11) Dyslipidemia (12) Factor V deficiency (13) Falls (14) Gastroparesis (15) GERD (gastroesophageal reflux disease) (16) Hiatal hernia (17) History of acute minda lesion (18) History of endometrial cancer (19) History of GI bleed (20) History of pulmonary embolism (21) IBS (irritable bowel syndrome) (22) Obstructive lung disease (23) Osteoporosis (24) Polyarthritis (25) Recurrent UTI (26) Temporal arteritis Surgical Problems: (1) Hx of cystoscopy (2) S/P left knee arthroscopy (3) S/P TAVR (transcatheter aortic valve replacement) (4) Status post cataract extraction (5) Status post coronary artery stent placement (6) Status post hysterectomy Family History Cancer Diabetes mellitus FH: cardiovascular disease MOTHER Gallbladder disease Hypertension Social History Smoking Status: Never Smoker Alcohol Use: none Drug Use: none Marital Status: Housing Status: lives alone Occupation Status: retired Current/Historical Medications Scheduled Ascorbic Acid (Ascorbic Acid), 250 MG PO DAILY Fentanyl (Fentanyl), 1 PATCH TD every 72 hours Ferrous Sulfate (Ferrous Sulfate), 325 MG PO BID Fluticasone Prop/Salmeterol (Advair Diskus 250/50 60 Dose), 1 PUFF INH BID Furosemide (Lasix), 40 MG PO DAILY Home O2 Therapy (Oxygen), 2 LITERS NA UD Magnesium Oxide (Mag-Ox), 400 MG PO DAILY Metoprolol Succinate (Metoprolol Succinate ER), 12.5 MG PO BID Mirtazapine Soltab (Remeron Soltab), 15 MG PO HS Multiple Vitamin (Multivitamin), 1 TABLET PO DAILY Pantoprazole (Protonix), 40 MG PO DAILY Paroxetine (Paroxetine HCl), 40 MG PO DAILY Potassium Chloride (Potassium Chloride Er), 10 MEQ PO BID Prednisone (Prednisone), 5 MG PO DAILY Ranitidine Hcl (Ranitidine Hcl), 1 CAP PO HS Warfarin Sod (Jantoven), 1 MG PO 4XWK Warfarin Sod (Jantoven), 2 MG PO 3XWK Scheduled PRN Acetaminophen (Acetaminophen), 650 MG PO for Pain Albuterol Sulf (Proventil 0.083% 2.5MG/3ML), 2.5 MG INH QID PRN for SOB/Wheezing Lorazepam (Lorazepam), 0.5 MG PO HS PRN for Insomnia Ondansetron Hcl (Zofran), 4 MG PO Q6 PRN for Nausea Oxycodone/Acetaminophen 5MG/325MG (Percocet 5MG/325MG), 1 TABLET PO Q8H PRN for Pain Physical Exam Vital Signs Date Time Temp Pulse Resp B/P (MAP) Pulse Ox O2 Delivery O2 Flow Rate FiO2 05/07/17 06:30 86 18 98 05/07/17 06:15 93 20 92 05/07/17 06:00 86 24 99 05/07/17 05:30 80 130/67 100 05/07/17 05:00 82 16 147/86 98 Nasal Cannula 2.0 05/07/17 04:28 80 18 152/75 93 Nasal Cannula 2.0 05/07/17 03:50 Nasal Cannula 2.0 05/07/17 03:45 87 05/07/17 03:35 147/86 05/07/17 03:24 36.6 96 20 127/73 92 Room Air Physical Exam VITALS: Vitals are noted on the nurse's note and reviewed by myself. Vital signs stable. GENERAL: This is an 81-year-old female, ill-appearing, well-developed well- nourished. EYES: Pupils equal round and reactive to light and accommodation. Conjunctivae without injection, sclerae without icterus. MOUTH: Mucous membranes dry. HEART: Regular rate and rhythm without murmurs gallops or rubs. LUNGS: Clear to auscultation bilaterally without wheezes, rales or rhonchi. ABDOMEN: Bowel sounds hypoactive. Abdomen is soft and nondistended. There is tenderness to palpation in the upper abdomen. No guarding or rebound tenderness. NEURO: Patient was alert and oriented to person place and time. Medical Decision & Procedures ER Provider Diagnostic Interpretation: CT ABDOMEN & PELVIS WITHOUT CONTRAST: Small bowel obstruction with a transition point in the right hemipelvis. No pneumatosis or free air. Additional findings: Visualized lower thorax demonstrates large hiatal hernia, TAVR, bibasilar atelectasis and/or scarring Liver, gallbladder, spleen, pancreas and adrenal glands are unremarkable. Kidney, ureters and urinary bladder are unremarkable. No hydronephrosis. Uterus is surgically absent. Appendix is not visualized or surgically absent. No acute osseous abnormality. Radiologist: Gal Armendariz MD Laboratory Results 05/07/17 03:50 Red Blood Count 3.61, Mean Corpuscular Volume 96.7, Mean Corpuscular Hemoglobin 30.7, Mean Corpuscular Hemoglobin Concent 31.8, Mean Platelet Volume 9.5, Neutrophils (%) (Auto) 71.8, Lymphocytes (%) (Auto) 15.9, Monocytes (%) (Auto) 10.4, Eosinophils (%) (Auto) 1.0, Basophils (%) (Auto) 0.4, Neutrophils # (Auto ) 11.16, Lymphocytes # (Auto) 2.46, Monocytes # (Auto) 1.61, Eosinophils # (Auto ) 0.15, Basophils # (Auto) 0.06 05/07/17 03:50 Test 05/07/17 03:50 05/07/17 05:45 White Blood Count 15.51 K/uL (4.8-10.8) Red Blood Count 3.61 M/uL (4.2-5.4) Hemoglobin 11.1 g/dL (12.0-16.0) Hematocrit 34.9 % (37-47) Mean Corpuscular Volume 96.7 fL (80-100) Mean Corpuscular Hemoglobin 30.7 pg (25-34) Mean Corpuscular Hemoglobin Concent 31.8 g/dl (32-36) Platelet Count 354 K/uL (130-400) Mean Platelet Volume 9.5 fL (7.4-10.4) Neutrophils (%) (Auto) 71.8 % Lymphocytes (%) (Auto) 15.9 % Monocytes (%) (Auto) 10.4 % Eosinophils (%) (Auto) 1.0 % Basophils (%) (Auto) 0.4 % Neutrophils # (Auto) 11.16 K/uL (1.4-6.5) Lymphocytes # (Auto) 2.46 K/uL (1.2-3.4) Monocytes # (Auto) 1.61 K/uL (0.11-0.59) Eosinophils # (Auto) 0.15 K/uL (0-0.5) Basophils # (Auto) 0.06 K/uL (0-0.2) RDW Standard Deviation 57.6 fL (36.4-46.3) RDW Coefficient of Variation 16.3 % (11.5-14.5) Immature Granulocyte % (Auto) 0.5 % Immature Granulocyte # (Auto) 0.07 K/uL (0.00-0.02) Prothrombin Time 14.5 SECONDS (9.0-12.0) Prothromb Time International Ratio 1.3 (0.9-1.1) Activated Partial Thromboplast Time 26.7 SECONDS (21.0-31.0) Partial Thromboplastin Ratio 1.0 Anion Gap 6.0 mmol/L (3-11) Est Creatinine Clear Calc Drug Dose 26.1 ml/min Estimated GFR () 40.2 Estimated GFR (Non- 34.7 BUN/Creatinine Ratio 18.7 (10-20) Lactic Acid Level 1.2 mmol/L (0.4-2.0) Calcium Level 10.8 mg/dl (8.5-10.1) Phosphorus Level 3.7 mg/dl (2.5-4.9) Magnesium Level 2.2 mg/dl (1.8-2.4) Total Bilirubin 0.4 mg/dl (0.2-1) Aspartate Amino Transf (AST/SGOT) 24 U/L (15-37) Alanine Aminotransferase (ALT/SGPT) 20 U/L (12-78) Alkaline Phosphatase 101 U/L (45-117) Total Protein 7.4 gm/dl (6.4-8.2) Albumin 3.2 gm/dl (3.4-5.0) Globulin 4.2 gm/dl (2.5-4.0) Albumin/Globulin Ratio 0.8 (0.9-2) Lipase 116 U/L (73-393) Urine Color YELLOW Urine Appearance CLOUDY (CLEAR) Urine pH 7.5 (4.5-7.5) Urine Specific [place] 1.015 (1.000-1.030) Urine Protein NEG (NEG) Urine Glucose (UA) NEG (NEG) Urine Ketones NEG (NEG) Urine Occult Blood NEG (NEG) Urine Nitrite NEG (NEG) Urine Bilirubin NEG (NEG) Urine Urobilinogen NEG (NEG) Urine Leukocyte Esterase LARGE (NEG) Urine WBC (Auto) >30 /hpf (0-5) Urine RBC (Auto) 0-4 /hpf (0-4) Urine Hyaline Casts (Auto) 1-5 /lpf (0-5) Urine Epithelial Cells (Auto) 10-20 /lpf (0-5) Urine Bacteria (Auto) NEG (NEG) Medications Administered Medications (Trade) Dose Ordered Sig/Rosi Route Start Time Stop Time Status Last Admin Dose Admin Morphine Sulfate (MoRPHine SULFATE INJ) 4 mg NOW STAT IV 05/07/17 03:51 05/07/17 03:52 DC 05/07/17 04:01 4 MG Ondansetron HCl (Zofran Inj) 4 mg NOW STAT IV 05/07/17 03:51 05/07/17 03:52 DC 05/07/17 04:04 4 MG Sodium Chloride 500 ml @ 999 mls/hr Q31M STAT IV 05/07/17 03:51 05/07/17 04:21 DC 05/07/17 03:55 999 MLS/HR Morphine Sulfate (MoRPHine SULFATE INJ) 4 mg NOW STAT IV 05/07/17 04:37 05/07/17 04:38 DC 05/07/17 04:51 4 MG Pantoprazole Sodium 80 mg/ Dextrose 120 ml @ 480 mls/hr NOW STAT IV 05/07/17 06:28 05/07/17 06:42 DC 05/07/17 06:46 480 MLS/HR Pantoprazole Sodium 40 mg/ Dextrose 100 ml @ 20 mls/hr Q5H IV 05/07/17 06:30 05/07/17 07:46 DC 05/07/17 07:06 20 MLS/HR ED Course The patient was evaluated as above. Labs were drawn and IV access was obtained. Patient was medicated with 4 mg morphine IV and [address] of the abdomen and pelvis was performed and read by radiology as above. Patient was complaining of increased pain and was given an additional dose of morphine. Patient was reevaluated and findings were discussed. NG tube was placed by nursing staff. [facility] requested that I speak with the general surgeon regarding the case but will admit the patient. She also recommended starting the patient on a PPI. Protonix bolus and drip were ordered. Medical Decision Differential diagnosis includes bowel obstruction, colitis, gastroenteritis, cholecystitis, pancreatitis, among others. The patient is an 81-year-old female with past medical history of multiple small bowel objections who presents today complaining of upper abdominal pain, vomiting and coffee-ground emesis consistent with previous small bowel obstructions. Labs reveal leukocytosis of 15,000. CT was obtained and did show a small bowel obstruction. Fortunately, the patient has been managed conservatively in the past and has not required surgery. NG tube was placed. Gen. surgery was consulted and the patient was admitted to the [facility] service. The patient was independently evaluated by Dr. Briceño, ED attending physician, who agreed with my assessment and treatment plan. Medication Reconcilliation Current Medication List: was personally reviewed by me Blood Pressure Screening Patient's blood pressure: Normal blood pressure Impression Primary Impression: Small bowel obstruction Departure Information Referrals Myrna Inman M.D. (PCP) Patient Instructions [facility]
--- NOTE | 2017-05-07 05:28 | EMERGENCY ROOM VISIT NOTE ---
ED Visit Note First contact with patient: 03:40 I saw this patient in conjunction with Yazmin Guerrero PA-C. I agree with her decision making and treatment plan.
[2017-05-07 06:03] LABS: INR 1.3 (0.9-1.1); PROTHROMBIN TIME (PATIENT) 14.5 SECONDS (9.0-12.0)
[2017-05-07] MEDS ORDERED: PANTOprazole INJ 80 MG in DEXTROSE 5% 100ML IV STA (06:28)
[2017-05-07] MEDS ORDERED: PANTOprazole INJ 40 MG in DEXTROSE 5% 100ML IV SCH ×2 (06:30→11:00)
[2017-05-07 06:44] LABS: MANUAL MICROSCOPIC REQUIRED? NO; REVIEW REQ? NO; URINE APPEARANCE CLOUDY (CLEAR); URINE BILIRUBIN NEG (NEG); URINE COLOR YELLOW; URINE NITRITE NEG (NEG); URINE PH 7.5 (4.5-7.5); URINE SPECIFIC GRAVITY 1.015 (1.000-1.030); UROBILINOGEN NEG (NEG); ZZUR CULT IF INDIC CLEAN CATCH YES
[2017-05-07 06:55] VITALS: O2SAT 100; Ht 154.9 cm; Wt 64.0 kg
[2017-05-07] MEDS ORDERED: ONDANSETRON INJ 2 MG/ML 2 ML VIAL IV PRN (07:15)
--- NOTE | 2017-05-07 07:19 | Surgery Progress Note ---
Surgery Progress Note Date of Service May 07, 2017. Subjective consult note to follow saw pt briefly in ER- NG being placed- coffee grd output CT shows mildly dilated small bowel and significant gastric distention h/o hyster and prior similar episodes Objective Vital Signs: Date Time Temp Pulse Resp B/P (MAP) Pulse Ox O2 Delivery O2 Flow Rate FiO2 05/07/17 07:11 81 18 124/60 100 Nasal Cannula 2.0 05/07/17 06:45 89 17 97 05/07/17 06:31 122/71 05/07/17 06:30 86 18 98 05/07/17 06:15 93 20 92 05/07/17 06:00 86 24 99 05/07/17 05:30 80 130/67 100 05/07/17 05:00 82 16 147/86 98 Nasal Cannula 2.0 05/07/17 04:28 80 18 152/75 93 Nasal Cannula 2.0 05/07/17 03:50 Nasal Cannula 2.0 05/07/17 03:45 87 05/07/17 03:35 147/86 05/07/17 03:24 36.6 96 20 127/73 92 Room Air General Appearance: no apparent distress Abdomen: + pertinent finding (minimal abd distention) Laboratory Results: Results Past 24 Hours Test 05/07/17 03:50 05/07/17 05:45 Range/Units White Blood Count 15.51 4.8-10.8 K/uL Red Blood Count 3.61 4.2-5.4 M/uL Hemoglobin 11.1 12.0-16.0 g/dL Hematocrit 34.9 37-47 % Mean Corpuscular Volume 96.7 80-100 fL Mean Corpuscular Hemoglobin 30.7 25-34 pg Mean Corpuscular Hemoglobin Concent 31.8 32-36 g/dl Platelet Count 354 130-400 K/uL Mean Platelet Volume 9.5 7.4-10.4 fL Neutrophils (%) (Auto) 71.8 % Lymphocytes (%) (Auto) 15.9 % Monocytes (%) (Auto) 10.4 % Eosinophils (%) (Auto) 1.0 % Basophils (%) (Auto) 0.4 % Neutrophils # (Auto) 11.16 1.4-6.5 K/uL Lymphocytes # (Auto) 2.46 1.2-3.4 K/uL Monocytes # (Auto) 1.61 0.11-0.59 K/uL Eosinophils # (Auto) 0.15 0-0.5 K/uL Basophils # (Auto) 0.06 0-0.2 K/uL RDW Standard Deviation 57.6 36.4-46.3 fL RDW Coefficient of Variation 16.3 11.5-14.5 % Immature Granulocyte % (Auto) 0.5 % Immature Granulocyte # (Auto) 0.07 0.00-0.02 K/uL Prothrombin Time 14.5 9.0-12.0 SECONDS Prothromb Time International Ratio 1.3 0.9-1.1 Activated Partial Thromboplast Time 26.7 21.0-31.0 SECONDS Partial Thromboplastin Ratio 1.0 Sodium Level 140 136-145 mmol/L Potassium Level 3.5 3.5-5.1 mmol/L Chloride Level 96 98-107 mmol/L Carbon Dioxide Level 38 21-32 mmol/L Anion Gap 6.0 3-11 mmol/L Blood Urea Nitrogen 26 7-18 mg/dl Creatinine 1.40 0.60-1.20 mg/dl Est Creatinine Clear Calc Drug Dose 26.1 ml/min Estimated GFR () 40.2 Estimated GFR (Non- 34.7 BUN/Creatinine Ratio 18.7 10-20 Random Glucose 138 70-99 mg/dl Lactic Acid Level 1.2 0.4-2.0 mmol/L Calcium Level 10.8 8.5-10.1 mg/dl Total Bilirubin 0.4 0.2-1 mg/dl Aspartate Amino Transf (AST/SGOT) 24 15-37 U/L Alanine Aminotransferase (ALT/SGPT) 20 12-78 U/L Alkaline Phosphatase 101 45-117 U/L Total Protein 7.4 6.4-8.2 gm/dl Albumin 3.2 3.4-5.0 gm/dl Globulin 4.2 2.5-4.0 gm/dl Albumin/Globulin Ratio 0.8 0.9-2 Lipase 116 73-393 U/L Urine Color YELLOW Urine Appearance CLOUDY CLEAR Urine pH 7.5 4.5-7.5 Urine Specific [place] 1.015 1.000-1.030 Urine Protein NEG NEG Urine Glucose (UA) NEG NEG Urine Ketones NEG NEG Urine Occult Blood NEG NEG Urine Nitrite NEG NEG Urine Bilirubin NEG NEG Urine Urobilinogen NEG NEG Urine Leukocyte Esterase LARGE NEG Urine WBC (Auto) >30 0-5 /hpf Urine RBC (Auto) 0-4 0-4 /hpf Urine Hyaline Casts (Auto) 1-5 0-5 /lpf Urine Epithelial Cells (Auto) 10-20 0-5 /lpf Urine Bacteria (Auto) NEG NEG Microbiology Results 05/07/17 Urine Culture, Received Pending Assessment & Plan 05/07/17- adm with partial sbo- likely has pelvic adhesions. nonoperative mgt for now- IV fluids for dehydration NG decompression- monitor electrolytes, Mg Phos
[2017-05-07] MEDS ORDERED: INFLUENZA VACCINE HIGH DOSE 65+ 0.5 ML SYR IM. ONE (07:30)
[2017-05-07] MEDS ORDERED: INFLUENZA ADMINISTRATION CHARGE ONE (07:30)
--- NOTE | 2017-05-07 07:43 | DIAGNOSTIC IMAGING REPORT ---
CT SCAN OF THE ABDOMEN AND PELVIS WITHOUT IV CONTRAST CLINICAL HISTORY: Generalized abdominal pain. COMPARISON STUDY: Abdominal CT dated 12/29/2016. TECHNIQUE: CT scan of the abdomen and pelvis is performed from the lung bases to the proximal femora. Images are reviewed in the axial, sagittal, and coronal planes. IV contrast was not administered for this examination as per the referring clinician. Note that the examination was performed in significantly suboptimal fashion without oral and IV contrast. A dose lowering technique was utilized adhering to the principles of ALARA. CT DOSE: 283.44 mGy.cm FINDINGS: Lung bases: The heart is normal in size and without pericardial effusion. The coronary arteries are densely calcified. A stent is noted in the aortic outflow tract. Scarring versus atelectasis is present at both lung bases. There are scattered calcified granulomas. No airspace consolidation or pleural effusion is seen. Liver: The unenhanced liver is normal in size, contour, and attenuation. There is no intrahepatic biliary ductal dilatation. Gallbladder: Unremarkable. Spleen: Normal in size and attenuation. Pancreas: The unenhanced pancreas is atrophic and grossly unremarkable. Adrenal glands: Unremarkable. Kidneys: The unenhanced kidneys are atrophic and without hydronephrosis. There are no renal calculi identified. There is no evidence of contour deforming renal mass lesion. A circumaortic left renal vein is incidentally noted. Abdominal vasculature: The abdominal aorta is normal in course and caliber noting advanced atherosclerotic calcification. Stomach and bowel: There is a moderate to large hiatal hernia. The duodenum is normal in configuration. The stomach is distended and fluid-filled, as are the proximal small bowel loops. Small bowel loops measure up to 3.3 cm diameter. There is a transition point seen in the right lower quadrant on image #[id number]. The distal small bowel and colon are decompressed, and the appearance is consistent with a small bowel obstruction. No focally thick walled bowel loops are identified. There is no pneumatosis intestinalis or portal venous gas. There are scattered colonic diverticula without CT evidence of acute diverticulitis. The appendix is not identified. Peritoneum: There is no intraperitoneal free air or abdominal ascites. Lymphadenopathy: None. Pelvic viscera: The bladder is normal as visualized. The uterus is surgically absent. No adnexal lesion is seen. Skeletal structures: The skeletal structures are osteopenic. Advanced lumbosacral spondylosis and scoliosis are observed. Findings suggest previous insufficiency fractures of the medial lenin bilaterally. This is similar to previous. There are chronic compression deformities of L1 and L4. No lytic or blastic lesions are seen. IMPRESSION: 1. Suboptimal examination without oral and IV contrast. 2. Findings are consistent with a small bowel obstruction. A transition point is identified in the right lower quadrant and this is likely on the basis of adhesions. 3. No focally thick walled bowel loops, intraperitoneal free air, pneumatosis intestinalis, or portal venous gas is identified. 4. Moderate to large hiatal hernia. 5. Additional findings as above. Electronically signed by: Williams Irizarry M.D. 05/07/2017 7:42 AM Dictated Date/Time: 05/07/2017 7:35 AM
[2017-05-07 07:51] LABS: MAGNESIUM 2.2 mg/dl (1.8-2.4); PHOSPHORUS 3.7 mg/dl (2.5-4.9)
--- NOTE | 2017-05-07 07:52 | Medical Consult ---
Consultation Date of Consultation: May 07, 2017. Attending Physician: History of Present Illness 81 y/o female with h/o SBO presented to ED with 2-3 days bloating, discomfort and last night nausea/vomiting. Feels better now after NG placement and morphine + Zofran. Has had regular bowel movements. Has large hiatal hernia, usually eats several small meals during the day. Was last here for SBO in December. 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 (8) CKD (chronic kidney disease) stage 3, GFR 30-59 ml/min (9) Depression (10) Diverticulosis Colon (W/O Ment Of Hemorrhage) (11) Dyslipidemia (12) Factor V deficiency (13) Falls (14) Gastroparesis (15) GERD (gastroesophageal reflux disease) (16) Hiatal hernia (17) History of acute minda lesion (18) History of endometrial cancer (19) History of GI bleed (20) History of pulmonary embolism (21) IBS (irritable bowel syndrome) (22) Obstructive lung disease (23) Osteoporosis (24) Polyarthritis (25) Recurrent UTI (26) Temporal arteritis Surgical Problems: (1) Hx of cystoscopy (2) S/P left knee arthroscopy (3) S/P TAVR (transcatheter aortic valve replacement) (4) Status post cataract extraction (5) Status post coronary artery stent placement (6) Status post hysterectomy Family History Cancer Diabetes mellitus FH: cardiovascular disease MOTHER Gallbladder disease Hypertension Social History Smoking Status: Never Smoker Drug Use: none Marital Status: Housing Status: lives alone Occupation Status: retired Allergies Coded Allergies: Cefdinir (Verified Allergy, Mild, RASH-HAS HAD ROCEPHIN,CEFEPIME MANY TIMES, 05/07/17) Clonazepam (Verified Allergy, Unknown, ., 05/07/17) Levofloxacin (Verified Allergy, Unknown, unknown, 05/07/17) Sulfasalazine (Verified Allergy, Unknown, ., 05/07/17) Metoclopramide (Verified Adverse Reaction, Intermediate, TREMORS, 05/07/17) Current Inpatient Medications Current Inpatient Medications Medications (Trade) Dose Ordered Sig/Rosi Route Start Time Stop Time Status Last Admin Dose Admin Pantoprazole Sodium 40 mg/ Dextrose 100 ml @ 20 mls/hr Q5H IV 05/07/17 06:30 05/07/17 11:29 05/07/17 07:06 20 MLS/HR Ondansetron HCl (Zofran Inj) 4 mg Q6H PRN IV 05/07/17 07:15 06/06/17 07:14 Influenza Virus Vaccine (Fluzone High-Dose Pf 0.5 ml) 0.5 ml ONCE ONCE IM. 05/07/17 07:30 05/07/17 07:31 UNV Review of Systems Respiratory: + cough (after vomiting), + shortness of breath Cardiovascular: No chest pain, No edema Abdomen: + pain, + nausea, + vomiting, No diarrhea, No constipation Physical Exam Date Time Temp Pulse Resp B/P (MAP) Pulse Ox O2 Delivery O2 Flow Rate FiO2 05/07/17 07:11 81 18 124/60 100 Nasal Cannula 2.0 05/07/17 06:45 89 17 97 05/07/17 06:31 122/71 05/07/17 06:30 86 18 98 05/07/17 06:15 93 20 92 05/07/17 06:00 86 24 99 05/07/17 05:30 80 130/67 100 05/07/17 05:00 82 16 147/86 98 Nasal Cannula 2.0 05/07/17 04:28 80 18 152/75 93 Nasal Cannula 2.0 05/07/17 03:50 Nasal Cannula 2.0 05/07/17 03:45 87 05/07/17 03:35 147/86 05/07/17 03:24 36.6 96 20 127/73 92 Room Air General Appearance: no apparent distress Eyes: normal inspection ENT: normal ENT inspection, + pertinent finding (NG at 40 cm, 750 cc drainage) Respiratory/Chest: lungs clear, no respiratory distress Cardiovascular: regular rate, rhythm, no edema Abdomen/GI: soft, + tenderness (minimal), + distended (slightly) Neurologic/Psych: normal mood/affect, oriented x 3 Skin: normal color, warm/dry Laboratory Results Last 24 Hours Test 05/07/17 03:50 05/07/17 05:45 White Blood Count 15.51 K/uL Red Blood Count 3.61 M/uL Hemoglobin 11.1 g/dL Hematocrit 34.9 % Mean Corpuscular Volume 96.7 fL Mean Corpuscular Hemoglobin 30.7 pg Mean Corpuscular Hemoglobin Concent 31.8 g/dl Platelet Count 354 K/uL Mean Platelet Volume 9.5 fL Neutrophils (%) (Auto) 71.8 % Lymphocytes (%) (Auto) 15.9 % Monocytes (%) (Auto) 10.4 % Eosinophils (%) (Auto) 1.0 % Basophils (%) (Auto) 0.4 % Neutrophils # (Auto) 11.16 K/uL Lymphocytes # (Auto) 2.46 K/uL Monocytes # (Auto) 1.61 K/uL Eosinophils # (Auto) 0.15 K/uL Basophils # (Auto) 0.06 K/uL RDW Standard Deviation 57.6 fL RDW Coefficient of Variation 16.3 % Immature Granulocyte % (Auto) 0.5 % Immature Granulocyte # (Auto) 0.07 K/uL Prothrombin Time 14.5 SECONDS Prothromb Time International Ratio 1.3 Activated Partial Thromboplast Time 26.7 SECONDS Partial Thromboplastin Ratio 1.0 Sodium Level 140 mmol/L Potassium Level 3.5 mmol/L Chloride Level 96 mmol/L Carbon Dioxide Level 38 mmol/L Anion Gap 6.0 mmol/L Blood Urea Nitrogen 26 mg/dl Creatinine 1.40 mg/dl Est Creatinine Clear Calc Drug Dose 26.1 ml/min Estimated GFR () 40.2 Estimated GFR (Non- 34.7 BUN/Creatinine Ratio 18.7 Random Glucose 138 mg/dl Lactic Acid Level 1.2 mmol/L Calcium Level 10.8 mg/dl Total Bilirubin 0.4 mg/dl Aspartate Amino Transf (AST/SGOT) 24 U/L Alanine Aminotransferase (ALT/SGPT) 20 U/L Alkaline Phosphatase 101 U/L Total Protein 7.4 gm/dl Albumin 3.2 gm/dl Globulin 4.2 gm/dl Albumin/Globulin Ratio 0.8 Lipase 116 U/L Urine Color YELLOW Urine Appearance CLOUDY Urine pH 7.5 Urine Specific [place] 1.015 Urine Protein NEG Urine Glucose (UA) NEG Urine Ketones NEG Urine Occult Blood NEG Urine Nitrite NEG Urine Bilirubin NEG Urine Urobilinogen NEG Urine Leukocyte Esterase LARGE Urine WBC (Auto) >30 /hpf Urine RBC (Auto) 0-4 /hpf Urine Hyaline Casts (Auto) 1-5 /lpf Urine Epithelial Cells (Auto) 10-20 /lpf Urine Bacteria (Auto) NEG Assessment & Plan recurrent SBO hiatal hernia improved after NG placement continue bowel rest, IVF hopefully will resolve again with conservative treatment, high surgical risk will follow
[2017-05-07 07:58] VITALS: BP 179/76; PULSE 87; TEMP 36.6; O2SAT 97
[2017-05-07] MEDS ORDERED: POTASSIUM CHLR 10 MEQ / WTR 10 MEQ in PREMIXED WATER 100 ML IV ONE (08:00)
[2017-05-07] MEDS ORDERED: DRGTP12 TD (08:08)
[2017-05-07] MEDS ORDERED: RANI300C PO (08:13)
[2017-05-07] MEDS ORDERED: MIRT15TA2 PO (08:13)
[2017-05-07] MEDS ORDERED: FENTANYL 12 MCG/HR TDSY TD SCH (08:15)
[2017-05-07] MEDS: SODIUM CHLORIDE 0.9% 1000ML 1,000 ML IV SCH ×3 (08:24→23:46)
--- NOTE | 2017-05-07 09:34 | History and Physical ---
History & Physical Date & Time of Service: May 07, 2017 at 08:16 Chief Complaint: SBO Primary Care Physician: Myrna Inman M.D. History of Present Illness Source: patient, clinic records, hospital records 81 yo F with 2 days of nausea and abdominal pain began vomiting coffee grounds overnight. Her abdominal pain is in the epigastric region and at the time of this examination which was post-NGT placement to suction and post-morphine, her abdominal pain had resolved. Her pain was initially an 8/10. She did also report one day of diarrhea that was described as watery but without any blood. She has a h/o EGD Aug 2015 for epigastric abdominal pain and dysphagia revealing a tortuous esophagus, patchy candidiasis, a large type III paraesophageal hernia, and diffuse erythema in the stomach. She was dilated at this visit. Her last colonoscopy was in May 2013 revealing non-thrombosed internal hemorrhoids, multiple non-bleeding colonic angioectasias, internal hemorrhoids and mod diverticulosis. She was hospitalized for an UGIB 12/10/16-. GI was planning to scope her as an outpatient, keep her on her coumadin (for chronic recurrent PE/DVT) and monitor her CBC twice monthly. She underwent the pre-op but did not yet have the scope since discharge. Additionally, she was hospitalized 12/29-01/08/17 for a SBO which resolved with supportive care. Past Medical/Surgical History Medical Problems: (1) Anemia Status: Chronic (2) Angiectasia Permanent Comment: on colonoscopy 05/2013 Status: Chronic (3) Aortic stenosis Permanent Comment: moderately severe by echo December 2013 Status: Chronic (4) Basal cell carcinoma Permanent Comment: s/p MOHS surgery Status: Resolved (5) Benign hypertension Status: Chronic (6) CAD (coronary artery disease) Permanent Comment: s/p RCA stent 2011 Status: Chronic (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 Status: Chronic (8) CKD (chronic kidney disease) stage 3, GFR 30-59 ml/min Status: Chronic (9) Depression Status: Chronic (10) Diverticulosis Colon (W/O Ment Of Hemorrhage) Status: Chronic (11) Dyslipidemia Status: Chronic (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, 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 Status: Chronic (13) Falls Status: Chronic (14) Gastroparesis Status: Chronic (15) GERD (gastroesophageal reflux disease) Status: Chronic (16) Hiatal hernia Status: Chronic (17) History of acute minda lesion Permanent Comment: 06/2013 Status: Chronic (18) History of endometrial cancer Permanent Comment: s/p radiation and total hysterectomy Status: Chronic (19) History of GI bleed Status: Chronic (20) History of pulmonary embolism Permanent Comment: x 2 Status: Chronic (21) IBS (irritable bowel syndrome) Status: Chronic (22) Obstructive lung disease Status: Chronic (23) Osteoporosis Status: Chronic (24) Polyarthritis Permanent Comment: on chronic prednisone Status: Chronic (25) Recurrent UTI Status: Chronic (26) Temporal arteritis Status: Chronic Surgical Problems: (1) Hx of cystoscopy Status: Chronic (2) S/P left knee arthroscopy Status: Chronic (3) S/P TAVR (transcatheter aortic valve replacement) Permanent Comment: due to severe aortic stenosis Status: Chronic (4) Status post cataract extraction Status: Chronic (5) Status post coronary artery stent placement Status: Chronic (6) Status post hysterectomy Status: Chronic Family History Cancer Diabetes mellitus FH: cardiovascular disease MOTHER Gallbladder disease Hypertension Social History Smoking Status: Never Smoker Smokeless Tobacco Use: No Alcohol Use: none Drug Use: none Marital Status: Housing status: lives alone Occupational Status: retired Immunizations History of Influenza Vaccine: Yes Influenza Vaccine Date: Apr 18, 2016 History of Tetanus Vaccine?: Yes Tetanus Immunization Date: Nov 27, 2008 History of Pneumococcal: Yes Pneumococcal Date: Apr 21, 2016 History of Hepatitis B Vaccine: Yes Multi-Drug Resistant Organisms History of MDRO: No Allergies Coded Allergies: Cefdinir (Verified Allergy, Mild, RASH-HAS HAD ROCEPHIN,CEFEPIME MANY TIMES, 05/07/17) Clonazepam (Verified Allergy, Unknown, ., 05/07/17) Levofloxacin (Verified Allergy, Unknown, unknown, 05/07/17) Sulfasalazine (Verified Allergy, Unknown, ., 05/07/17) Metoclopramide (Verified Adverse Reaction, Intermediate, TREMORS, 05/07/17) Home Medications Scheduled Ascorbic Acid (Ascorbic Acid), 250 MG PO DAILY Fentanyl (Fentanyl), 1 PATCH TD every 72 hours Ferrous Sulfate (Ferrous Sulfate), 325 MG PO BID Fluticasone Prop/Salmeterol (Advair Diskus 250/50 60 Dose), 1 PUFF INH BID Furosemide (Lasix), 40 MG PO DAILY Home O2 Therapy (Oxygen), 2 LITERS NA UD Magnesium Oxide (Mag-Ox), 400 MG PO DAILY Metoprolol Succinate (Metoprolol Succinate ER), 12.5 MG PO BID Mirtazapine Soltab (Remeron Soltab), 15 MG PO HS Multiple Vitamin (Multivitamin), 1 TABLET PO DAILY Pantoprazole (Protonix), 40 MG PO DAILY Paroxetine (Paroxetine HCl), 40 MG PO DAILY Potassium Chloride (Potassium Chloride Er), 10 MEQ PO BID Prednisone (Prednisone), 5 MG PO DAILY Ranitidine Hcl (Ranitidine Hcl), 1 CAP PO HS Warfarin Sod (Jantoven), 1 MG PO 4XWK Warfarin Sod (Jantoven), 2 MG PO 3XWK Scheduled PRN Acetaminophen (Acetaminophen), 650 MG PO for Pain Albuterol Sulf (Proventil 0.083% 2.5MG/3ML), 2.5 MG INH QID PRN for SOB/Wheezing Lorazepam (Lorazepam), 0.5 MG PO HS PRN for Insomnia Ondansetron Hcl (Zofran), 4 MG PO Q6 PRN for Nausea Oxycodone/Acetaminophen 5MG/325MG (Percocet 5MG/325MG), 1 TABLET PO Q8H PRN for Pain Review of Systems At least ten systems were reviewed and negative except as indicated in HPI above. Physical Exam Vital Signs Date Time Temp Pulse Resp B/P (MAP) Pulse Ox O2 Delivery O2 Flow Rate FiO2 05/07/17 07:58 36.6 87 18 179/76 (110) 97 Nasal Cannula 2.0 05/07/17 07:11 81 18 124/60 100 Nasal Cannula 2.0 05/07/17 06:55 100 Nasal Cannula 2.0 05/07/17 06:45 89 17 97 05/07/17 06:31 122/71 05/07/17 06:30 86 18 98 05/07/17 06:15 93 20 92 05/07/17 06:00 86 24 99 05/07/17 05:30 80 130/67 100 05/07/17 05:00 82 16 147/86 98 Nasal Cannula 2.0 05/07/17 04:28 80 18 152/75 93 Nasal Cannula 2.0 05/07/17 03:50 Nasal Cannula 2.0 05/07/17 03:45 87 05/07/17 03:35 147/86 05/07/17 03:24 36.6 96 20 127/73 92 Room Air General Appearance: WD/WN, no apparent distress Head: normocephalic, atraumatic, + pertinent finding (NGT in place with black- reddish liquid in suction container. ) Eyes: normal inspection, PERRL, sclerae normal ENT: hearing grossly normal, pharynx normal Neck: supple, no adenopathy, no JVD, trachea midline Respiratory/Chest: chest non-tender, lungs clear, normal breath sounds, no respiratory distress, no accessory muscle use Cardiovascular: regular rate, rhythm, no edema, no gallop, no JVD, no murmur, normal peripheral pulses Abdomen/GI: soft, + tenderness, + abnormal bowel sounds, + pertinent finding ( tympanitic bowel sounds-hypoactive) Back: normal inspection Extremities/Musculoskelatal: normal inspection, no pedal edema Neurologic/Psych: heritage consultant II-XII nml as tested, no motor/sensory deficits, alert, normal mood/affect, oriented x 3 Skin: normal color, warm/dry, no rash Diagnostics Laboratory Results 05/07/17 03:50 Red Blood Count 3.61, Mean Corpuscular Volume 96.7, Mean Corpuscular Hemoglobin 30.7, Mean Corpuscular Hemoglobin Concent 31.8, Mean Platelet Volume 9.5, Neutrophils (%) (Auto) 71.8, Lymphocytes (%) (Auto) 15.9, Monocytes (%) (Auto) 10.4, Eosinophils (%) (Auto) 1.0, Basophils (%) (Auto) 0.4, Neutrophils # (Auto ) 11.16, Lymphocytes # (Auto) 2.46, Monocytes # (Auto) 1.61, Eosinophils # (Auto ) 0.15, Basophils # (Auto) 0.06 05/07/17 03:50 Test 05/07/17 03:50 05/07/17 05:45 White Blood Count 15.51 K/uL (4.8-10.8) Red Blood Count 3.61 M/uL (4.2-5.4) Hemoglobin 11.1 g/dL (12.0-16.0) Hematocrit 34.9 % (37-47) Mean Corpuscular Volume 96.7 fL (80-100) Mean Corpuscular Hemoglobin 30.7 pg (25-34) Mean Corpuscular Hemoglobin Concent 31.8 g/dl (32-36) Platelet Count 354 K/uL (130-400) Mean Platelet Volume 9.5 fL (7.4-10.4) Neutrophils (%) (Auto) 71.8 % Lymphocytes (%) (Auto) 15.9 % Monocytes (%) (Auto) 10.4 % Eosinophils (%) (Auto) 1.0 % Basophils (%) (Auto) 0.4 % Neutrophils # (Auto) 11.16 K/uL (1.4-6.5) Lymphocytes # (Auto) 2.46 K/uL (1.2-3.4) Monocytes # (Auto) 1.61 K/uL (0.11-0.59) Eosinophils # (Auto) 0.15 K/uL (0-0.5) Basophils # (Auto) 0.06 K/uL (0-0.2) RDW Standard Deviation 57.6 fL (36.4-46.3) RDW Coefficient of Variation 16.3 % (11.5-14.5) Immature Granulocyte % (Auto) 0.5 % Immature Granulocyte # (Auto) 0.07 K/uL (0.00-0.02) Prothrombin Time 14.5 SECONDS (9.0-12.0) Prothromb Time International Ratio 1.3 (0.9-1.1) Activated Partial Thromboplast Time 26.7 SECONDS (21.0-31.0) Partial Thromboplastin Ratio 1.0 Anion Gap 6.0 mmol/L (3-11) Est Creatinine Clear Calc Drug Dose 26.1 ml/min Estimated GFR () 40.2 Estimated GFR (Non- 34.7 BUN/Creatinine Ratio 18.7 (10-20) Lactic Acid Level 1.2 mmol/L (0.4-2.0) Calcium Level 10.8 mg/dl (8.5-10.1) Phosphorus Level 3.7 mg/dl (2.5-4.9) Magnesium Level 2.2 mg/dl (1.8-2.4) Total Bilirubin 0.4 mg/dl (0.2-1) Aspartate Amino Transf (AST/SGOT) 24 U/L (15-37) Alanine Aminotransferase (ALT/SGPT) 20 U/L (12-78) Alkaline Phosphatase 101 U/L (45-117) Total Protein 7.4 gm/dl (6.4-8.2) Albumin 3.2 gm/dl (3.4-5.0) Globulin 4.2 gm/dl (2.5-4.0) Albumin/Globulin Ratio 0.8 (0.9-2) Lipase 116 U/L (73-393) Urine Color YELLOW Urine Appearance CLOUDY (CLEAR) Urine pH 7.5 (4.5-7.5) Urine Specific [place] 1.015 (1.000-1.030) Urine Protein NEG (NEG) Urine Glucose (UA) NEG (NEG) Urine Ketones NEG (NEG) Urine Occult Blood NEG (NEG) Urine Nitrite NEG (NEG) Urine Bilirubin NEG (NEG) Urine Urobilinogen NEG (NEG) Urine Leukocyte Esterase LARGE (NEG) Urine WBC (Auto) >30 /hpf (0-5) Urine RBC (Auto) 0-4 /hpf (0-4) Urine Hyaline Casts (Auto) 1-5 /lpf (0-5) Urine Epithelial Cells (Auto) 10-20 /lpf (0-5) Urine Bacteria (Auto) NEG (NEG) Date/Time Source Procedure Growth Status 05/07/17 05:45 Urine , Clean Catch Urine Culture Pending Received Results Past 24 Hours Test 05/07/17 03:50 05/07/17 05:45 Range/Units White Blood Count 15.51 4.8-10.8 K/uL Red Blood Count 3.61 4.2-5.4 M/uL Hemoglobin 11.1 12.0-16.0 g/dL Hematocrit 34.9 37-47 % Mean Corpuscular Volume 96.7 80-100 fL Mean Corpuscular Hemoglobin 30.7 25-34 pg Mean Corpuscular Hemoglobin Concent 31.8 32-36 g/dl Platelet Count 354 130-400 K/uL Mean Platelet Volume 9.5 7.4-10.4 fL Neutrophils (%) (Auto) 71.8 % Lymphocytes (%) (Auto) 15.9 % Monocytes (%) (Auto) 10.4 % Eosinophils (%) (Auto) 1.0 % Basophils (%) (Auto) 0.4 % Neutrophils # (Auto) 11.16 1.4-6.5 K/uL Lymphocytes # (Auto) 2.46 1.2-3.4 K/uL Monocytes # (Auto) 1.61 0.11-0.59 K/uL Eosinophils # (Auto) 0.15 0-0.5 K/uL Basophils # (Auto) 0.06 0-0.2 K/uL RDW Standard Deviation 57.6 36.4-46.3 fL RDW Coefficient of Variation 16.3 11.5-14.5 % Immature Granulocyte % (Auto) 0.5 % Immature Granulocyte # (Auto) 0.07 0.00-0.02 K/uL Prothrombin Time 14.5 9.0-12.0 SECONDS Prothromb Time International Ratio 1.3 0.9-1.1 Activated Partial Thromboplast Time 26.7 21.0-31.0 SECONDS Partial Thromboplastin Ratio 1.0 Sodium Level 140 136-145 mmol/L Potassium Level 3.5 3.5-5.1 mmol/L Chloride Level 96 98-107 mmol/L Carbon Dioxide Level 38 21-32 mmol/L Anion Gap 6.0 3-11 mmol/L Blood Urea Nitrogen 26 7-18 mg/dl Creatinine 1.40 0.60-1.20 mg/dl Est Creatinine Clear Calc Drug Dose 26.1 ml/min Estimated GFR () 40.2 Estimated GFR (Non- 34.7 BUN/Creatinine Ratio 18.7 10-20 Random Glucose 138 70-99 mg/dl Lactic Acid Level 1.2 0.4-2.0 mmol/L Calcium Level 10.8 8.5-10.1 mg/dl Phosphorus Level 3.7 2.5-4.9 mg/dl Magnesium Level 2.2 1.8-2.4 mg/dl Total Bilirubin 0.4 0.2-1 mg/dl Aspartate Amino Transf (AST/SGOT) 24 15-37 U/L Alanine Aminotransferase (ALT/SGPT) 20 12-78 U/L Alkaline Phosphatase 101 45-117 U/L Total Protein 7.4 6.4-8.2 gm/dl Albumin 3.2 3.4-5.0 gm/dl Globulin 4.2 2.5-4.0 gm/dl Albumin/Globulin Ratio 0.8 0.9-2 Lipase 116 73-393 U/L Urine Color YELLOW Urine Appearance CLOUDY CLEAR Urine pH 7.5 4.5-7.5 Urine Specific [place] 1.015 1.000-1.030 Urine Protein NEG NEG Urine Glucose (UA) NEG NEG Urine Ketones NEG NEG Urine Occult Blood NEG NEG Urine Nitrite NEG NEG Urine Bilirubin NEG NEG Urine Urobilinogen NEG NEG Urine Leukocyte Esterase LARGE NEG Urine WBC (Auto) >30 0-5 /hpf Urine RBC (Auto) 0-4 0-4 /hpf Urine Hyaline Casts (Auto) 1-5 0-5 /lpf Urine Epithelial Cells (Auto) 10-20 0-5 /lpf Urine Bacteria (Auto) NEG NEG Microbiology Results 05/07/17 Urine Culture, Received Pending Diagnostic Radiology CT SCAN OF THE ABDOMEN AND PELVIS WITHOUT IV CONTRAST CLINICAL HISTORY: Generalized abdominal pain. COMPARISON STUDY: Abdominal CT dated 12/29/2016. TECHNIQUE: CT scan of the abdomen and pelvis is performed from the lung bases to the proximal femora. Images are reviewed in the axial, sagittal, and coronal planes. IV contrast was not administered for this examination as per the referring clinician. Note that the examination was performed in significantly suboptimal fashion without oral and IV contrast. A dose lowering technique was utilized adhering to the principles of ALARA. CT DOSE: 283.44 mGy.cm FINDINGS: Lung bases: The heart is normal in size and without pericardial effusion. The coronary arteries are densely calcified. A stent is noted in the aortic outflow tract. Scarring versus atelectasis is present at both lung bases. There are scattered calcified granulomas. No airspace consolidation or pleural effusion is seen. Liver: The unenhanced liver is normal in size, contour, and attenuation. There is no intrahepatic biliary ductal dilatation. Gallbladder: Unremarkable. Spleen: Normal in size and attenuation. Pancreas: The unenhanced pancreas is atrophic and grossly unremarkable. Adrenal glands: Unremarkable. Kidneys: The unenhanced kidneys are atrophic and without hydronephrosis. There are no renal calculi identified. There is no evidence of contour deforming renal mass lesion. A circumaortic left renal vein is incidentally noted. Abdominal vasculature: The abdominal aorta is normal in course and caliber noting advanced atherosclerotic calcification. Stomach and bowel: There is a moderate to large hiatal hernia. The duodenum is normal in configuration. The stomach is distended and fluid-filled, as are the proximal small bowel loops. Small bowel loops measure up to 3.3 cm diameter. There is a transition point seen in the right lower quadrant on image #[id number]. The distal small bowel and colon are decompressed, and the appearance is consistent with a small bowel obstruction. No focally thick walled bowel loops are identified. There is no pneumatosis intestinalis or portal venous gas. There are scattered colonic diverticula without CT evidence of acute diverticulitis. The appendix is not identified. Peritoneum: There is no intraperitoneal free air or abdominal ascites. Lymphadenopathy: None. Pelvic viscera: The bladder is normal as visualized. The uterus is surgically absent. No adnexal lesion is seen. Skeletal structures: The skeletal structures are osteopenic. Advanced lumbosacral spondylosis and scoliosis are observed. Findings suggest previous insufficiency fractures of the medial lenin bilaterally. This is similar to previous. There are chronic compression deformities of L1 and L4. No lytic or blastic lesions are seen. IMPRESSION: 1. Suboptimal examination without oral and IV contrast. 2. Findings are consistent with a small bowel obstruction. A transition point is identified in the right lower quadrant and this is likely on the basis of adhesions. 3. No focally thick walled bowel loops, intraperitoneal free air, pneumatosis intestinalis, or portal venous gas is identified. 4. Moderate to large hiatal hernia. 5. Additional findings as above. No change from prior EKG Impression Assessment and Plan 81 yo F with h/o UGIB and SBO this year presents with SBO and coffee ground emesis over the past 48 hours. 1. SBO-likely 2/2 adhesions. High surgical risk per Gen Surg team. NGT in place and maintenance IVF begun. Cont to follow clinical course closely. 2. UGIB-protonix drip started. H/H is improved from before but still slightly anemic. GI consulted. Hold any blood thinners or diuretics. 3. Recurrent PE/DVT-warfarin currently on hold in setting of presumed bleeding. INR is 1.3 so not reversal was needed. 4. HTN-controlled, cont current home medication regimen. DVT proph-contraindicated. SCDs Full code per my discussion with her on admission Dispo-to Med/Surg. Sis Mathur DO [facility] Level of Care Med/Surg Advanced Directives Existing Living Will: Yes Existing Power of Core Paster: Yes Resuscitation Status FULL RESUSCITATION VTE Prophylaxis VTE Risk Assessment Done? Y/N: Yes Risk Level: Moderate Given or contraindicated: Contraindicated
[2017-05-07 09:51] VITALS: BP 107/70; PULSE 75; O2SAT 100
[2017-05-07 10:02] LABS: HEMATOCRIT 28.8 % (37-47)
--- NOTE | 2017-05-07 11:53 | Gastrointestinal Consultation ---
Gastrointestinal Consultation Date of Consultation: May 07, 2017 Attending Physician: Evelio Starkey Consulting Physician: Gwen Jaramillo Reason for Consultation: Coffee ground emesis in setting of SBO History of Present Illness Patient is a 81 year old female w complex PMHx including colonic angiectasisa, aortic stenosis, BCC, HTN, chronic anemia, CAD s/p stent placements, CHF, CKD, Depression, Diverticulosis, Dyslipidemia, Factor V deficiency, gastroparesis, GERD, hiatal hernia, Enrique lesions, endometrial ca s/p radiation and total hysterectomy, PEs, IBS, COPD, OP, temporal arteritis, recurrent UTIs. She is currently stuporous received Morphine this AM in ED, very limited ROS can be obtained, history thus obtained from chart review and admission H&P. She presented to ED overnight w c/o n/v x 2 days and last night started to notice coffee ground emesis. She also report a day of watery stools w/o blood seen. Upon eval w CT scan she was found to have SBO w transition point likely at RLQ area, no signs of bowel wall thickening, or free air. She had been seen by Surgery team, no plans for surgical intervention. SBO suspected to be related to adhesions. She had hx of large hiatal hernia, tortuous esophagus, candidiasis seen in last EGD was in 08/2015. She also had dilation of esophagus to 45Fr during that time for reasons of dysphagia symptoms. She was seen by our team in December for melena, was scheduled for EGD/colonoscopy evals on 03/03 but appt cancelled (unclear reasons). She was last admitted in at end of December to January for SBO which resolved w conservative management. VS, Labs, imaging studies reviewed: her Hgb dropped from 11.4 to 9 overnight. BUN/Cr 26/1.4. No stools since admission. She had >700ml NGT output in ED but since canister changed, no more output except scant amt of dark/bilious colored materials in tubing. She was able to wake up a bit today during my exam. Abd soft though bowel sounds not appreciated. She denies any tenderness on palpation of abd. Past Medical/Surgical History Medical Problems: (1) Acute kidney injury Status: Acute (2) Ambulatory dysfunction Status: Acute (3) Anticoagulated on Coumadin Status: Acute (4) Bronchitis with bronchospasm Status: Acute (5) Change in mental status Status: Acute (6) Contusion of left knee Status: Acute (7) Creatinine elevation Status: Acute (8) Dehydration Status: Acute (9) Dehydration Status: Acute (10) Dyspnea Status: Acute (11) GI bleed Status: Acute (12) Hypotension Status: Acute (13) SBO (small bowel obstruction) Status: Acute (14) Sepsis due to urinary tract infection Status: Acute (15) Small bowel obstruction Status: Acute (16) Small bowel obstruction Status: Acute (17) Symptomatic anemia Status: Acute (18) Urinary tract infection Status: Acute (19) UTI (urinary tract infection) Status: Acute (20) Weakness Status: Acute Past Medical History: See above. Past Surgical History: Cystoscopy, L knee arthroscopy, TAVR, cataract, cardiac stent placement, hysterectomy Family History Cancer Diabetes mellitus FH: cardiovascular disease MOTHER Gallbladder disease Hypertension Social History Smoking Status: Never Smoker Alcohol Use: none Drug Use: none Marital Status: Housing Status: lives alone Occupation Status: retired Allergies Coded Allergies: Cefdinir (Verified Allergy, Mild, RASH-HAS HAD ROCEPHIN,CEFEPIME MANY TIMES, 05/07/17) Clonazepam (Verified Allergy, Unknown, ., 05/07/17) Levofloxacin (Verified Allergy, Unknown, unknown, 05/07/17) Sulfasalazine (Verified Allergy, Unknown, ., 05/07/17) Metoclopramide (Verified Adverse Reaction, Intermediate, TREMORS, 05/07/17) Current Medications Home Meds and Scripts Medications Dose Route/Sig Max Daily Dose Days Date Category Dose Instructions Remeron Soltab (Mirtazapine) 15 Mg Soltab 15 Mg PO HS 05/07/17 Reported Ranitidine Hcl 300 Mg Cap 1 Cap PO HS 30 05/07/17 Reported Fentanyl 12 Mcg Tdsy 1 Patch TD EVERY 72 HOURS 05/07/17 Reported Jantoven (Warfarin Sodium) 1 Mg Tab 2 Mg PO 3XWK 05/07/17 Reported TAKES MON, WED, & FRI. Ferrous Sulfate 325 Mg Tab 325 Mg PO BID 05/07/17 Reported Ascorbic Acid 250 Mg Tab 250 Mg PO DAILY 05/07/17 Reported Jantoven (Warfarin Sodium) 1 Mg Tab 1 Mg PO 4XWK 02/19/17 Reported TAKES SUN, TUES, THURS, & SAT. Protonix (Pantoprazole Sodium) 40 Mg Tab 40 Mg PO DAILY 02/19/17 Reported Lasix (Furosemide) 20 Mg Tab 40 Mg PO DAILY 12/29/16 Reported Acetaminophen 325 Mg Tab 650 Mg PO PRN 12/29/16 Reported Oxygen Gas 2 Liters NA UD 12/10/16 Reported 2 liters HS and PRN Prednisone 5 Mg Tab 5 Mg PO DAILY 12/10/16 Reported Percocet 5MG/325MG (Oxycodone/Acetaminophen) Tab 1 Tablet PO Q8H PRN 10/17/16 Reported Zofran (Ondansetron HCl) 4 Mg Tab 4 Mg PO Q6 PRN 10/17/16 Reported Proventil 0.083% 2.5MG/3ML (Albuterol Sulf) 2.5 Mg/3 Ml Nebu 2.5 Mg INH QID PRN 10/17/16 Reported Mag-Ox (Magnesium Oxide) 400 Mg Tab 400 Mg PO DAILY 08/29/16 Reported Potassium Chloride Er (Potassium Chloride) 10 Meq Cap 10 Meq PO BID 90 01/08/16 Reported Advair Diskus 250/50 60 Dose (Fluticasone Prop/Salmeterol) 1 Ea Aerp 1 Puff INH BID 07/31/15 Reported PT ONLY USES NEEDED Paroxetine HCl (Paroxetine) 40 Mg Tab 40 Mg PO DAILY 07/31/15 Reported Metoprolol Succinate ER (Metoprolol Succinate) 25 Mg Tabcr 12.5 Mg PO BID 02/04/15 Reported Lorazepam 0.5 Mg Tab 0.5 Mg PO HS PRN 12/07/12 Reported Multivitamin (Multiple Vitamin) 1 Tab Tab 1 Tablet PO DAILY 30 12/07/12 Reported take with supper Review of Systems Constitutional: + see HPI Abdomen: No pain, No nausea, No vomiting Physical Exam Date Time Temp Pulse Resp B/P (MAP) Pulse Ox O2 Delivery O2 Flow Rate FiO2 05/07/17 09:51 75 16 107/70 (82) 100 Nasal Cannula 2.0 05/07/17 07:58 36.6 87 18 179/76 (110) 97 Nasal Cannula 2.0 05/07/17 07:11 81 18 124/60 100 Nasal Cannula 2.0 05/07/17 06:55 100 Nasal Cannula 2.0 05/07/17 06:45 89 17 97 05/07/17 06:31 122/71 10/5/17 06:30 86 18 98 05/07/17 06:15 93 20 92 05/07/17 06:00 86 24 99 05/07/17 05:30 80 130/67 100 05/07/17 05:00 82 16 147/86 98 Nasal Cannula 2.0 05/07/17 04:28 80 18 152/75 93 Nasal Cannula 2.0 05/07/17 03:50 Nasal Cannula 2.0 05/07/17 03:45 87 05/07/17 03:35 147/86 05/07/17 03:24 36.6 96 20 127/73 92 Room Air General Appearance: no apparent distress Eyes: normal inspection, PERRL, EOMI Neck: supple, no JVD, trachea midline Respiratory/Chest: no respiratory distress, no accessory muscle use, + decreased breath sounds Cardiovascular: regular rate, rhythm, no gallop, no murmur Abdomen: non tender, soft, + abnormal bowel sounds (not appreciated) Extremities: normal inspection, no pedal edema, no calf tenderness Neurologic/Psych: + disoriented (stuporous, received narcotics this AM, oriented to self, place and time but easily falls back to sleep during interview ) Skin: normal color, no jaundice, no rash Laboratory Results Last 24 Hours Test 05/07/17 03:50 05/07/17 05:45 05/07/17 09:55 White Blood Count 15.51 K/uL Red Blood Count 3.61 M/uL Hemoglobin 11.1 g/dL 9.0 g/dL Hematocrit 34.9 % 28.8 % Mean Corpuscular Volume 96.7 fL Mean Corpuscular Hemoglobin 30.7 pg Mean Corpuscular Hemoglobin Concent 31.8 g/dl Platelet Count 354 K/uL Mean Platelet Volume 9.5 fL Neutrophils (%) (Auto) 71.8 % Lymphocytes (%) (Auto) 15.9 % Monocytes (%) (Auto) 10.4 % Eosinophils (%) (Auto) 1.0 % Basophils (%) (Auto) 0.4 % Neutrophils # (Auto) 11.16 K/uL Lymphocytes # (Auto) 2.46 K/uL Monocytes # (Auto) 1.61 K/uL Eosinophils # (Auto) 0.15 K/uL Basophils # (Auto) 0.06 K/uL RDW Standard Deviation 57.6 fL RDW Coefficient of Variation 16.3 % Immature Granulocyte % (Auto) 0.5 % Immature Granulocyte # (Auto) 0.07 K/uL Prothrombin Time 14.5 SECONDS Prothromb Time International Ratio 1.3 Activated Partial Thromboplast Time 26.7 SECONDS Partial Thromboplastin Ratio 1.0 Sodium Level 140 mmol/L Potassium Level 3.5 mmol/L Chloride Level 96 mmol/L Carbon Dioxide Level 38 mmol/L Anion Gap 6.0 mmol/L Blood Urea Nitrogen 26 mg/dl Creatinine 1.40 mg/dl Est Creatinine Clear Calc Drug Dose 26.1 ml/min Estimated GFR () 40.2 Estimated GFR (Non- 34.7 BUN/Creatinine Ratio 18.7 Random Glucose 138 mg/dl Lactic Acid Level 1.2 mmol/L Calcium Level 10.8 mg/dl Phosphorus Level 3.7 mg/dl Magnesium Level 2.2 mg/dl Total Bilirubin 0.4 mg/dl Aspartate Amino Transf (AST/SGOT) 24 U/L Alanine Aminotransferase (ALT/SGPT) 20 U/L Alkaline Phosphatase 101 U/L Total Protein 7.4 gm/dl Albumin 3.2 gm/dl Globulin 4.2 gm/dl Albumin/Globulin Ratio 0.8 Lipase 116 U/L Urine Color YELLOW Urine Appearance CLOUDY Urine pH 7.5 Urine Specific Flushing 1.015 Urine Protein NEG Urine Glucose (UA) NEG Urine Ketones NEG Urine Occult Blood NEG Urine Nitrite NEG Urine Bilirubin NEG Urine Urobilinogen NEG Urine Leukocyte Esterase LARGE Urine WBC (Auto) >30 /hpf Urine RBC (Auto) 0-4 /hpf Urine Hyaline Casts (Auto) 1-5 /lpf Urine Epithelial Cells (Auto) 10-20 /lpf Urine Bacteria (Auto) NEG Impression Patient is a 81 year old female seen for coffee ground emesis, SBO likely due to adhesions. Hgb down to 9 from 11 overnight. Since she had NGT placed w suction, she had >700ml output in ED, none since got on floor. Her BUN wasn't markedly elevated and no melena overnight thus making significant UGI bleed less likely. ? Enrique's lesion w slight bleed given large hiatal hernia. Plan - Monitor H/H and transfuse prn - Keep NPO, NGT w suction. Appreciate Surgery following for SBO - Ok to DC PPI gtt, change to Protonix 40mg IV BID - Avoid narcotics given SBO - Will continue to follow. Once SBO resolved, may consider rescheduling her for EGD/Colonoscopy which was previously set up on 03/03 but cancelled for unclear reasons.
[2017-05-07 15:00] VITALS: BP 108/61; PULSE 92; TEMP 36.6; O2SAT 94
[2017-05-07] MEDS ORDERED: COUGH DROP (SUGAR FREE) LOZ 24 LOZ/1 BOX PO PRN (15:45)
[2017-05-07] MEDS ORDERED: NURSING VERBAL MED ORDER ONE (16:00)
[2017-05-07] MEDS: FENTANYL 12 MCG/HR TDSY TD SCH (16:16)
[2017-05-07] MEDS: CHECK FENTANYL PATCH PLACEMENT SCH ×2 (16:16→23:46)
[2017-05-07 16:24] LABS: HEMATOCRIT 30.4 % (37-47)
--- NOTE | 2017-05-07 16:26 | DIAGNOSTIC IMAGING REPORT ---
KUB HISTORY: check NGT placement COMPARISON: None. FINDINGS: The tip of the nasogastric tube is at the level of the mid mediastinum. This likely resides within the mid esophagus the bowel gas pattern is unremarkable. No evidence for bowel obstruction. Moderate to severe shaped scoliosis. No renal calculi. No ureteral calculi. No pneumoperitoneum or pneumatosis. IMPRESSION: The tip of the nasogastric tube is at the level the mid mediastinum and may reside at the mid esophagus. Of note, this could also reside within the mid trachea. Electronically signed by: Nirav Varma M.D. 05/07/2017 4:24 PM Dictated Date/Time: 05/07/2017 4:20 PM
[2017-05-07] MEDS ORDERED: ACETAMINOPHEN IV 650 MG in EMPTY BAG 0 ML IV ONE (16:30)
[2017-05-07] MEDS ORDERED: LIDOCAINE HCL 2% VISC SOLN 20 ML UDC MT PRN (17:15)
[2017-05-07] MEDS ORDERED: ACETAMINOPHEN SOLN 160 MG/5 ML UDC PO PRN (17:15)
--- NOTE | 2017-05-07 17:18 | Progress Note ---
Progress Note Date of Service May 07, 2017. Progress Note called by nurse that there has been difficulties with NG tube suctioning and re- adjustments. Have asked NG tube to be removed for now. patient reports pain of throat. ordered lidocaine swish and swallow. patient has chronic pain of joints due to arthritis. avoid NSAIDs due to concern that patient may have upper GI bleed. avoid narcotics as this can worsen bowel obstruction. ordered acetaminophen IV prn. if patient continues to have discomfort with vomiting or concern for worsening fabiana obstruction, will likely need NG tube placement at that time.
[2017-05-07] MEDS: PANTOprazole INJ 40 MG in SYRINGE 0 ML IV SCH (21:45)
[2017-05-07 23:50] VITALS: BP 106/62; PULSE 93; TEMP 36.9; O2SAT 88; O2SAT 94
[2017-05-08 05:58] LABS: HEMATOCRIT 25.4 % (37-47); MEAN CELL VOLUME 97.7 fL (80-100); MEAN CORPUSCULAR HEMOGLOBIN 30.8 pg (25-34); MEAN CORPUSCULAR HGB CONC 31.5 g/dl (32-36); MEAN PLATELET VOLUME 9.3 fL (7.4-10.4); PLATELET COUNT 263 K/uL (130-400); WHITE BLOOD COUNT 8.58 K/uL (4.8-10.8)
[2017-05-08 06:33] LABS: BUN/CREATININE RATIO 18.2 (10-20); CALCIUM 8.7 mg/dl (8.5-10.1); CREATININE 1.2 mg/dl (0.60-1.20); MAGNESIUM 1.8 mg/dl (1.8-2.4); PHOSPHORUS 3.8 mg/dl (2.5-4.9); POTASSIUM 3.8 mmol/L (3.5-5.1)
--- NOTE | 2017-05-08 07:00 | Surgery Progress Note ---
Surgery Progress Note Date of Service May 08, 2017. Subjective + flatus feels better- NG out- no emesis Objective Vital Signs: Date Time Temp Pulse Resp B/P (MAP) Pulse Ox O2 Delivery O2 Flow Rate FiO2 05/07/17 23:50 36.9 93 17 106/62 (77) 88 Room Air 05/07/17 23:50 94 Nasal Cannula 2.0 05/07/17 23:30 Nasal Cannula 2.0 05/07/17 15:15 Room Air 05/07/17 15:00 36.6 92 16 108/61 (77) 94 05/07/17 09:51 75 16 107/70 (82) 100 Nasal Cannula 2.0 05/07/17 07:58 36.6 87 18 179/76 (110) 97 Nasal Cannula 2.0 05/07/17 07:11 81 18 124/60 100 Nasal Cannula 2.0 General Appearance: no apparent distress Respiratory/Chest: no respiratory distress Abdomen: soft (active bs) Laboratory Results: Results Past 24 Hours Test 05/07/17 09:55 05/07/17 16:01 05/07/17 22:19 05/08/17 05:25 Range/Units Hemoglobin 9.0 9.3 8.4 8.0 12.0-16.0 g/dL Hematocrit 28.8 30.4 27.0 25.4 37-47 % White Blood Count 8.58 4.8-10.8 K/uL Red Blood Count 2.60 4.2-5.4 M/uL Mean Corpuscular Volume 97.7 80-100 fL Mean Corpuscular Hemoglobin 30.8 25-34 pg Mean Corpuscular Hemoglobin Concent 31.5 32-36 g/dl RDW Standard Deviation 59.3 36.4-46.3 fL RDW Coefficient of Variation 16.7 11.5-14.5 % Platelet Count 263 130-400 K/uL Mean Platelet Volume 9.3 7.4-10.4 fL Sodium Level 145 136-145 mmol/L Potassium Level 3.8 3.5-5.1 mmol/L Chloride Level 109 98-107 mmol/L Carbon Dioxide Level 31 21-32 mmol/L Anion Gap 5.0 3-11 mmol/L Blood Urea Nitrogen 22 7-18 mg/dl Creatinine 1.20 0.60-1.20 mg/dl Est Creatinine Clear Calc Drug Dose 30.4 ml/min Estimated GFR () 48.4 Estimated GFR (Non- 41.8 BUN/Creatinine Ratio 18.2 10-20 Random Glucose 84 70-99 mg/dl Calcium Level 8.7 8.5-10.1 mg/dl Phosphorus Level 3.8 2.5-4.9 mg/dl Magnesium Level 1.8 1.8-2.4 mg/dl Assessment & Plan 05/08/17- improved- has anemia after rehydration- had coffee grounds from ng- ? gastritis/ ? ulcer- will try clear liquids. continue to follow. 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 nonoperative mgt for now- IV fluids for dehydration NG decompression- monitor electrolytes, Mg Phos 05/07/17- adm with partial sbo- likely has pelvic adhesions. nonoperative mgt for now- IV fluids for dehydration NG decompression- monitor electrolytes, Mg Phos
[2017-05-08] MEDS: CHECK FENTANYL PATCH PLACEMENT SCH ×3 (07:29→23:31)
[2017-05-08] MEDS: SODIUM CHLORIDE 0.9% 1000ML 1,000 ML IV SCH ×3 (07:29→23:30)
[2017-05-08 07:30] VITALS: BP 119/71; PULSE 96; TEMP 37.3; O2SAT 93
--- NOTE | 2017-05-08 08:16 | DIAGNOSTIC IMAGING REPORT ---
KUB HISTORY: Follow-up study to assess small bowel junction. re-eval SBO COMPARISON: KUB 05/07/2017 FINDINGS: The bowel gas pattern is non-obstructive. There is no organomegaly. No renal calculi. No ureteral calculi. No pneumoperitoneum or pneumatosis. Vascular calcifications are noted. There are surgical clips of the right hemipelvis No fracture. Severe multilevel degenerative changes of the spine are noted with convex left curvature of the lumbar spine. Moderate degenerative changes of the hips. IMPRESSION: Nonobstructive bowel gas pattern. Electronically signed by: Joshua Feng M.D. 05/08/2017 8:15 AM Dictated Date/Time: 05/08/2017 8:14 AM
[2017-05-08] MEDS: PANTOprazole INJ 40 MG in SYRINGE 0 ML IV SCH ×2 (08:43→21:01)
--- NOTE | 2017-05-08 09:15 | Gastroenterology Progress Note ---
Progress Note Date of Service: May 08, 2017 Subjective Pt evaluation today including: conversation w/ patient, physical exam, chart review, lab review, review of studies, review of inpatient medication list 81 -year-old female patient admitted on 05/07/2017 for small bowel obstruction. NG tube had to be removed overnight due to patient discomfort. Patient denies any increased abdominal pain. When asked she reports left upper quadrant discomfort. She is able to move around well on the bed. She is conversational. She is tender in the left upper quadrant on palpation. There are bowel sounds present more in the right upper quadrant than elsewhere but present throughout. White blood cell count today is 8.5. She's been mildly tachycardic at 96, pulse ox is 93% on room air. GI is consulted for coffee- ground emesis. On arrival hemoglobin was 11 today it is 8.0. Her baseline appears to be some around 9.5. She does have chronic anemia with history of Enrique erosions and colonic angiectasia. She tells us that she had a very small liquid to loose bowel movement this morning. Review of Systems Constitutional: No fever Respiratory: No cough Cardiac: No chest pain Abdomen: + pain (LUQ), + nausea (improved), + vomiting (prior to arrival) Female : No dysuria Neuro: No memory loss Psych: No depression symptoms Heme: No abnormal bleeding/bruising Endo: No fatigue Medications Current Inpatient Medications Medications (Trade) Dose Ordered Sig/Rosi Route Start Time Stop Time Status Last Admin Dose Admin Ondansetron HCl (Zofran Inj) 4 mg Q6H PRN IV 05/07/17 07:15 06/06/17 07:14 Sodium Chloride 1,000 ml @ 125 mls/hr Q8H IV 05/07/17 08:15 06/06/17 08:14 05/08/17 07:29 125 MLS/HR Miscellaneous Information (Check Fentanyl Patch Placement) 1 ea QS N/A 05/07/17 16:00 06/06/17 15:59 05/08/17 07:29 1 EA Pantoprazole Sodium 40 mg/ Syringe 10 ml @ 5 mls/min BID@0900,2100 IV 05/07/17 21:00 06/06/17 20:59 05/08/17 08:43 5 MLS/MIN Menthol (Nice Jonnie) 1 jonnie TID PRN PO 05/07/17 15:45 06/06/17 15:44 05/07/17 16:15 1 JONNIE Fentanyl (Duragesic Patch) 12 mcg Q3D@1600 TD 05/07/17 16:00 05/21/17 15:59 05/07/17 16:16 12 MCG Miscellaneous (Fentanyl Patch Remove & Waste) 1 ea Q3D@1559 N/A 05/10/17 15:59 06/09/17 15:58 Acetaminophen (Tylenol Soln) 160 mg Q4 PRN PO 05/07/17 17:15 06/06/17 17:14 Lidocaine HCl (Viscous Lidocaine 2% Soln) 20 ml Q6H PRN MT 05/07/17 17:15 06/06/17 17:14 Objective Vital Signs Date Time Temp Pulse Resp B/P (MAP) Pulse Ox O2 Delivery O2 Flow Rate FiO2 05/08/17 07:30 37.3 96 16 119/71 (87) 93 Room Air 05/08/17 07:15 Room Air 05/07/17 23:50 36.9 93 17 106/62 (77) 88 Room Air 05/07/17 23:50 94 Nasal Cannula 2.0 05/07/17 23:30 Nasal Cannula 2.0 05/07/17 15:15 Room Air 05/07/17 15:00 36.6 92 16 108/61 (77) 94 05/07/17 09:51 75 16 107/70 (82) 100 Nasal Cannula 2.0 Physical Exam General Appearance: no apparent distress Neck: no JVD Respiratory/Chest: lungs clear Cardiovascular: regular rate, rhythm, no JVD, no murmur Abdomen: soft, + tenderness (mild left upper quadrant tenderness), + pertinent finding (hyperactive bowel sounds in the right upper quadrant, minimally active elsewhere elsewhere) Extremities: no pedal edema Neurologic/Psych: alert, normal mood/affect, oriented x 3 Skin: normal color, no jaundice Laboratory Results Last 24 Hours Test 05/07/17 09:55 05/07/17 16:01 05/07/17 22:19 05/08/17 05:25 Hemoglobin 9.0 g/dL 9.3 g/dL 8.4 g/dL 8.0 g/dL Hematocrit 28.8 % 30.4 % 27.0 % 25.4 % White Blood Count 8.58 K/uL Red Blood Count 2.60 M/uL Mean Corpuscular Volume 97.7 fL Mean Corpuscular Hemoglobin 30.8 pg Mean Corpuscular Hemoglobin Concent 31.5 g/dl RDW Standard Deviation 59.3 fL RDW Coefficient of Variation 16.7 % Platelet Count 263 K/uL Mean Platelet Volume 9.3 fL Sodium Level 145 mmol/L Potassium Level 3.8 mmol/L Chloride Level 109 mmol/L Carbon Dioxide Level 31 mmol/L Anion Gap 5.0 mmol/L Blood Urea Nitrogen 22 mg/dl Creatinine 1.20 mg/dl Est Creatinine Clear Calc Drug Dose 30.4 ml/min Estimated GFR () 48.4 Estimated GFR (Non- 41.8 BUN/Creatinine Ratio 18.2 Random Glucose 84 mg/dl Calcium Level 8.7 mg/dl Phosphorus Level 3.8 mg/dl Magnesium Level 1.8 mg/dl Assessment and Plan Ms. Conley is an 81-year-old female admitted with a small bowel obstruction , clinically seems slightly improved. GI is consulted for coffee grounds emesis. Though she has a history of Enrique's erosions and gastritis, and had dark, possibly coffee grounds emesis on arrival as well as a drop in hemoglobin from 11-8, she is only approximately 1.5 points below her baseline hemoglobin, there does not seem to be continued GI bleeding as there is no note of blood or coffee-ground appearance of her most recent NG output and she is not having melena or hematochezia. Plan: 1. Would like to avoid endoscopy during small bowel obstruction as endoscopy can increase the risk for perforation in this situation. 2. Will defer decision regarding blood transfusions to primary services. 3. If any gross GI bleeding or further drop in hemoglobin hematocrit would recommend red tag GI bleeding scan. Would recommend upper endoscopy only if clear evidence of upper GI bleeding. 4. Okay with clear liquids by mouth today. 5. Appreciate surgery, management of this patient. 6. GI will watch peripherally. Please notify us if gross GI bleeding.
[2017-05-08 11:58] LABS: BASO % 0.3 %; BASO ABS # 0.03 K/uL (0-0.2); EOS % 1.7 %; HEMATOCRIT 25.7 % (37-47); IG% 0.3 %; LYMPH % 20.6 %; LYMPH ABS # 1.82 K/uL (1.2-3.4); MEAN CELL VOLUME 97.3 fL (80-100); MEAN CORPUSCULAR HEMOGLOBIN 30.7 pg (25-34); MEAN PLATELET VOLUME 8.9 fL (7.4-10.4); MONO % 10.9 %; NEUT % 66.2 %; PLATELET COUNT 253 K/uL (130-400); RED BLOOD COUNT 2.64 M/uL (4.2-5.4); WHITE BLOOD COUNT 8.82 K/uL (4.8-10.8)
[2017-05-08 12:31] LABS: MEAN CORPUSCULAR HGB CONC 31.5 g/dl (32-36)
[2017-05-08 12:37] LABS: COMPLETE YES; HYPOSEGMENTED POLYS 1+; STOMATOCYTE 1+; TOXIC GRANULATION 1+; VACUOLIZATION 1+
--- NOTE | 2017-05-08 15:28 | Progress Note ---
Internal Med Progress Note Date of Service: May 08, 2017. Provider Documentation: SUBJECTIVE: patient tolerating ice chips after NG tube removed yesterday. reports some bloating sensation but no vomiting. reports abdominal discomfort present but improves compared to yesterday OBJECTIVE: General Appearance: no apparent distress Head: normocephalic, atraumatic Eyes: normal inspection, sclerae normal ENT: hearing grossly normal, pharynx normal Neck: supple, no adenopathy, no JVD, trachea midline Respiratory/Chest: chest non-tender, lungs clear, normal breath sounds, no respiratory distress, no accessory muscle use Cardiovascular: regular rate, rhythm, no edema, no gallop, no JVD, no murmur, normal peripheral pulses Abdomen/GI: soft, minimal tenderness, abnormal bowel sounds Back: normal inspection Extremities: normal inspection, no pedal edema Neurologic: no motor/sensory deficits, alert, normal mood/affect, oriented x 3 Skin: normal color, warm/dry, no rash ASSESSMENT & PLAN: 81 yo F with h/o UGIB and SBO this year presents with SBO and coffee ground emesis on hospital admission CT abdomen: Findings are consistent with a small bowel obstruction. A transition point is identified in the right lower quadrant and this is likely on the basis of adhesions. Moderate to large hiatal hernia. General surgery: no acute surgical interventions at this time for small bowl obstruction/adhesions - Minimize narcotics because of bowel obstruction GI is consulted for coffee grounds emesis: avoid endoscopy during small bowel obstruction as endoscopy can increase the risk for perforation in this situation. If any gross GI bleeding or further drop in hemoglobin hematocrit would recommend red tag GI bleeding scan. Upper endoscopy only if clear evidence of upper GI bleeding. -patient CBC has been downtrending on this admission, stable CBC of 8 on consecutive blood draws today -maintain active type and screen -On protonics BID -Hold any blood thinners or diuretics or NSAIDs, Recurrent PE/DVT-warfarin currently on hold in setting of presumed bleeding Advance diet as tolerated History or arthritis as per patient -Other CT findings: The skeletal structures are osteopenic. Advanced lumbosacral spondylosis and scoliosis are observed. Findings suggest previous insufficiency fractures of the medial lenin bilaterally. This is similar to previous. There are chronic compression deformities of L1 and L4. No lytic or blastic lesions are seen. -minimize narcotics in setting of bowel obstruction, acetaminophen prn HTN-controlled, cont current home medication regimen. DVT prophylaxis SCDs Full code Vital Signs: Date Time Temp Pulse Resp B/P (MAP) Pulse Ox O2 Delivery O2 Flow Rate FiO2 05/08/17 07:30 37.3 96 16 119/71 (87) 93 Room Air 05/08/17 07:15 Room Air 05/07/17 23:50 36.9 93 17 106/62 (77) 88 Room Air 05/07/17 23:50 94 Nasal Cannula 2.0 05/07/17 23:30 Nasal Cannula 2.0 Lab Results: Results Past 24 Hours Test 05/07/17 16:01 05/07/17 22:19 05/08/17 05:25 05/08/17 11:49 Range/Units Hemoglobin 9.3 8.4 8.0 8.1 12.0-16.0 g/dL Hematocrit 30.4 27.0 25.4 25.7 37-47 % White Blood Count 8.58 8.82 4.8-10.8 K/uL Red Blood Count 2.60 2.64 4.2-5.4 M/uL Mean Corpuscular Volume 97.7 97.3 80-100 fL Mean Corpuscular Hemoglobin 30.8 30.7 25-34 pg Mean Corpuscular Hemoglobin Concent 31.5 31.5 32-36 g/dl RDW Standard Deviation 59.3 59.1 36.4-46.3 fL RDW Coefficient of Variation 16.7 16.7 11.5-14.5 % Platelet Count 263 253 130-400 K/uL Mean Platelet Volume 9.3 8.9 7.4-10.4 fL Sodium Level 145 136-145 mmol/L Potassium Level 3.8 3.5-5.1 mmol/L Chloride Level 109 98-107 mmol/L Carbon Dioxide Level 31 21-32 mmol/L Anion Gap 5.0 3-11 mmol/L Blood Urea Nitrogen 22 7-18 mg/dl Creatinine 1.20 0.60-1.20 mg/dl Est Creatinine Clear Calc Drug Dose 30.4 ml/min Estimated GFR () 48.4 Estimated GFR (Non- 41.8 BUN/Creatinine Ratio 18.2 10-20 Random Glucose 84 70-99 mg/dl Calcium Level 8.7 8.5-10.1 mg/dl Phosphorus Level 3.8 2.5-4.9 mg/dl Magnesium Level 1.8 1.8-2.4 mg/dl Neutrophils (%) (Auto) 66.2 % Lymphocytes (%) (Auto) 20.6 % Monocytes (%) (Auto) 10.9 % Eosinophils (%) (Auto) 1.7 % Basophils (%) (Auto) 0.3 % Neutrophils # (Auto) 5.83 1.4-6.5 K/uL Lymphocytes # (Auto) 1.82 1.2-3.4 K/uL Monocytes # (Auto) 0.96 0.11-0.59 K/uL Eosinophils # (Auto) 0.15 0-0.5 K/uL Basophils # (Auto) 0.03 0-0.2 K/uL Immature Granulocyte % (Auto) 0.3 % Immature Granulocyte # (Auto) 0.03 0.00-0.02 K/uL Hyposegmented Neutrophils 1+ Toxic Granulation 1+ Toxic Vacuolation 1+ Stomatocytes 1+
[2017-05-08 16:00] VITALS: O2SAT 93
[2017-05-08 16:01] VITALS: BP 128/73; PULSE 86; TEMP 36.8; O2SAT 92
[2017-05-08] MEDS: ACETAMINOPHEN IV 650 MG in EMPTY BAG 0 ML IV PRN (19:49)
[2017-05-08 23:27] VITALS: BP 100/54; PULSE 86; TEMP 36.7; O2SAT 94
[2017-05-09] VITALS (8 sets, daily range): BP systolic 106–146; BP diastolic 62–70; PULSE 85–112; TEMP 36.6–37.3; O2SAT 95–100
[2017-05-09] MEDS: ACETAMINOPHEN IV 650 MG in EMPTY BAG 0 ML IV PRN ×3 (06:02→23:42)
[2017-05-09] MEDS: SODIUM CHLORIDE 0.9% 1000ML 1,000 ML IV SCH (07:06)
[2017-05-09] MEDS: CHECK FENTANYL PATCH PLACEMENT SCH ×3 (08:00→23:42)
--- NOTE | 2017-05-09 08:53 | Surgery Progress Note ---
Surgery Progress Note Date of Service May 09, 2017. Subjective Patient examined at bedside this morning. Afebrile, vitals stable on 2L O2 via NC overnight, no acute events. States she had left shoulder pain overnight ( due to arthritis), given IV Tylenol with good relief. Denies abdominal pain, nausea or vomiting this morning. States abdominal distention is much improved since arrival. Tolerating clear liquids without N/V, would like to try more food. Having BMs (mostly loose). Ambulating to the bathroom with assistance, voiding without difficulty. Objective Vital Signs: Date Time Temp Pulse Resp B/P (MAP) Pulse Ox O2 Delivery O2 Flow Rate FiO2 05/09/17 07:39 Nasal Cannula 2.0 05/09/17 07:32 36.8 85 17 106/62 (77) 98 Nasal Cannula 2.0 05/08/17 23:27 36.7 86 16 100/54 (69) 94 Nasal Cannula 2.0 05/08/17 19:20 Room Air 05/08/17 16:01 36.8 86 16 128/73 (91) 92 Room Air 05/08/17 16:00 93 Room Air General Appearance: WD/WN, no apparent distress Head: normocephalic Neck: supple Respiratory/Chest: lungs clear, normal breath sounds, no respiratory distress Cardiovascular: regular rate, rhythm Abdomen: normal bowel sounds, non tender, non distended, soft (no rebound / guarding) Laboratory Results: Results Past 24 Hours Test 05/08/17 11:49 Range/Units White Blood Count 8.82 4.8-10.8 K/uL Red Blood Count 2.64 4.2-5.4 M/uL Hemoglobin 8.1 12.0-16.0 g/dL Hematocrit 25.7 37-47 % Mean Corpuscular Volume 97.3 80-100 fL Mean Corpuscular Hemoglobin 30.7 25-34 pg Mean Corpuscular Hemoglobin Concent 31.5 32-36 g/dl Platelet Count 253 130-400 K/uL Mean Platelet Volume 8.9 7.4-10.4 fL Neutrophils (%) (Auto) 66.2 % Lymphocytes (%) (Auto) 20.6 % Monocytes (%) (Auto) 10.9 % Eosinophils (%) (Auto) 1.7 % Basophils (%) (Auto) 0.3 % Neutrophils # (Auto) 5.83 1.4-6.5 K/uL Lymphocytes # (Auto) 1.82 1.2-3.4 K/uL Monocytes # (Auto) 0.96 0.11-0.59 K/uL Eosinophils # (Auto) 0.15 0-0.5 K/uL Basophils # (Auto) 0.03 0-0.2 K/uL RDW Standard Deviation 59.1 36.4-46.3 fL RDW Coefficient of Variation 16.7 11.5-14.5 % Immature Granulocyte % (Auto) 0.3 % Immature Granulocyte # (Auto) 0.03 0.00-0.02 K/uL Hyposegmented Neutrophils 1+ Toxic Granulation 1+ Toxic Vacuolation 1+ Stomatocytes 1+ Assessment & Plan Yany Conley is an 81 year old woman with a large hiatal hernia admitted with a recurrent small bowel obstruction, now resolving. -Advance diet as tolerated -Reduce IVF when tolerating adequate PO intake - starting to notice swelling in her hands -Encourage out of bed / ambulation with assistance -Continue protonix -Rest of care per primary team -Will continue to follow India Virk MD 05/09/17
[2017-05-09] MEDS: PANTOprazole INJ 40 MG in SYRINGE 0 ML IV SCH ×2 (08:58→20:16)
[2017-05-09 09:42] LABS: BASO % 0.2 %; BASO ABS # 0.02 K/uL (0-0.2); EOS % 2.4 %; HEMATOCRIT 27.5 % (37-47); IG% 0.2 %; LYMPH % 13.2 %; LYMPH ABS # 1.43 K/uL (1.2-3.4); MEAN CELL VOLUME 97.5 fL (80-100); MEAN CORPUSCULAR HEMOGLOBIN 30.5 pg (25-34); MEAN PLATELET VOLUME 9.3 fL (7.4-10.4); MONO % 8.3 %; NEUT % 75.7 %; PLATELET COUNT 266 K/uL (130-400); RED BLOOD COUNT 2.82 M/uL (4.2-5.4); WHITE BLOOD COUNT 10.83 K/uL (4.8-10.8)
[2017-05-09 10:00] LABS: MEAN CORPUSCULAR HGB CONC 31.3 g/dl (32-36)
[2017-05-09 10:03] LABS: COMPLETE YES; VACUOLIZATION 1+
[2017-05-09 10:08] LABS: ALB/GLOB RATIO 0.8 (0.9-2); BUN/CREATININE RATIO 11.2 (10-20); CALCIUM 9.1 mg/dl (8.5-10.1); CREATININE 1.1 mg/dl (0.60-1.20); POTASSIUM 3.3 mmol/L (3.5-5.1)
[2017-05-09] MEDS ORDERED: POTASSIUM CHLR 10 MEQ / WTR 10 MEQ in PREMIXED WATER 100 ML IV STA (11:23)
--- NOTE | 2017-05-09 17:26 | Progress Note ---
Internal Med Progress Note Date of Service: May 09, 2017. Provider Documentation: SUBJECTIVE: patient reports bloating sensation but willing to try and eat foods with more texture. denies vomiting. OBJECTIVE: General Appearance: no apparent distress Head: normocephalic, atraumatic Eyes: normal inspection, sclerae normal ENT: hearing grossly normal, pharynx normal Neck: supple, no JVD, trachea midline Respiratory/Chest: chest non-tender, lungs clear, normal breath sounds, no respiratory distress, no accessory muscle use Cardiovascular: regular rate, rhythm, no edema, no gallop, no JVD, no murmur, normal peripheral pulses Abdomen/GI: soft, no tenderness, abnormal bowel sounds Back: normal inspection Extremities: normal inspection, no pedal edema Neurologic: no motor/sensory deficits, alert, normal mood/affect, oriented x 3 Skin: normal color, warm/dry, no rash ASSESSMENT & PLAN: 81 yo F with h/o UGIB and SBO this year presents with SBO and coffee ground emesis on hospital admission CT abdomen: Findings are consistent with a small bowel obstruction. A transition point is identified in the right lower quadrant and this is likely on the basis of adhesions. Moderate to large hiatal hernia. General surgery: no acute surgical interventions at this time for small bowl obstruction/adhesions - Minimize narcotics because of bowel obstruction GI is consulted for coffee grounds emesis: avoid endoscopy during small bowel obstruction as endoscopy can increase the risk for perforation in this situation. If any gross GI bleeding or further drop in hemoglobin hematocrit would recommend red tag GI bleeding scan. Upper endoscopy only if clear evidence of upper GI bleeding. 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 Advanced lumbosacral spondylosis and scoliosis are observed. Findings suggest previous insufficiency fractures of the medial lenin bilaterally. This is similar to previous. There are chronic compression deformities of L1 and L4. No lytic or blastic lesions are seen. -minimize narcotics in setting of bowel obstruction, acetaminophen prn HTN-controlled, cont current home medication regimen. DVT prophylaxis SCDs Full code Vital Signs: Date Time Temp Pulse Resp B/P (MAP) Pulse Ox O2 Delivery O2 Flow Rate FiO2 05/09/17 15:45 37.0 92 16 111/65 (80) 96 Nasal Cannula 2.0 05/09/17 15:30 Nasal Cannula 2.0 05/09/17 07:39 Nasal Cannula 2.0 05/09/17 07:32 36.8 85 17 106/62 (77) 98 Nasal Cannula 2.0 05/08/17 23:27 36.7 86 16 100/54 (69) 94 Nasal Cannula 2.0 05/08/17 19:20 Room Air Lab Results: Results Past 24 Hours Test 05/09/17 09:24 Range/Units White Blood Count 10.83 4.8-10.8 K/uL Red Blood Count 2.82 4.2-5.4 M/uL Hemoglobin 8.6 12.0-16.0 g/dL Hematocrit 27.5 37-47 % Mean Corpuscular Volume 97.5 80-100 fL Mean Corpuscular Hemoglobin 30.5 25-34 pg Mean Corpuscular Hemoglobin Concent 31.3 32-36 g/dl Platelet Count 266 130-400 K/uL Mean Platelet Volume 9.3 7.4-10.4 fL Neutrophils (%) (Auto) 75.7 % Lymphocytes (%) (Auto) 13.2 % Monocytes (%) (Auto) 8.3 % Eosinophils (%) (Auto) 2.4 % Basophils (%) (Auto) 0.2 % Neutrophils # (Auto) 8.20 1.4-6.5 K/uL Lymphocytes # (Auto) 1.43 1.2-3.4 K/uL Monocytes # (Auto) 0.90 0.11-0.59 K/uL Eosinophils # (Auto) 0.26 0-0.5 K/uL Basophils # (Auto) 0.02 0-0.2 K/uL RDW Standard Deviation 58.4 36.4-46.3 fL RDW Coefficient of Variation 16.4 11.5-14.5 % Immature Granulocyte % (Auto) 0.2 % Immature Granulocyte # (Auto) 0.02 0.00-0.02 K/uL Toxic Vacuolation 1+ Sodium Level 143 136-145 mmol/L Potassium Level 3.3 3.5-5.1 mmol/L Chloride Level 111 98-107 mmol/L Carbon Dioxide Level 24 21-32 mmol/L Anion Gap 7.0 3-11 mmol/L Blood Urea Nitrogen 12 7-18 mg/dl Creatinine 1.10 0.60-1.20 mg/dl Est Creatinine Clear Calc Drug Dose 33.2 ml/min Estimated GFR () 53.8 Estimated GFR (Non- 46.4 BUN/Creatinine Ratio 11.2 10-20 Random Glucose 111 70-99 mg/dl Calcium Level 9.1 8.5-10.1 mg/dl Total Bilirubin 0.4 0.2-1 mg/dl Aspartate Amino Transf (AST/SGOT) 24 15-37 U/L Alanine Aminotransferase (ALT/SGPT) 12 12-78 U/L Alkaline Phosphatase 78 45-117 U/L Total Protein 5.7 6.4-8.2 gm/dl Albumin 2.5 3.4-5.0 gm/dl Globulin 3.2 2.5-4.0 gm/dl Albumin/Globulin Ratio 0.8 0.9-2
[2017-05-09] MEDS ORDERED: FUROSEMIDE INJ 40 MG in SYRINGE 0 ML IV ONE (19:00)
[2017-05-09] MEDS ORDERED: POTASSIUM CHLORIDE 20 MEQ TABCR PO STA (21:16)
--- NOTE | 2017-05-09 21:18 | DIAGNOSTIC IMAGING REPORT ---
CHEST ONE VIEW PORTABLE HISTORY: 81 years-old Female increased work of breathing, hypoxic acute shortness of breath COMPARISON: Chest radiograph 02/22/2017 TECHNIQUE: Portable upright AP view of the chest FINDINGS: Cardiac silhouette is mildly enlarged. There is atherosclerosis of the aorta. Moderate hiatal hernia with partially intrathoracic stomach. Postsurgical changes of aortic valve replacement. Chronic perihilar and upper lobe prominent interstitial opacities are noted. Unchanged blunting of the left costophrenic angle with left basilar opacity suggesting atelectasis/scarring. No pneumothorax, large pleural effusion or lobar airspace consolidation. The bones are grossly intact. Remote bilateral rib fractures redemonstrated. IMPRESSION: Chronic interstitial thickening without acute cardiopulmonary process. The above report was generated using voice recognition software. It may contain grammatical, syntax or spelling errors. Electronically signed by: Joshua Feng M.D. 05/09/2017 9:16 PM Dictated Date/Time: 05/09/2017 9:13 PM
[2017-05-09] MEDS: LORAZEPAM 0.5 MG TAB PO PRN (21:54)
[2017-05-10 00:31] VITALS: TEMP 37
[2017-05-10 07:06] LABS: BASO % 0.5 %; BASO ABS # 0.04 K/uL (0-0.2); EOS % 3.2 %; HEMATOCRIT 25.4 % (37-47); IG% 0.1 %; LYMPH % 21.2 %; LYMPH ABS # 1.77 K/uL (1.2-3.4); MEAN CELL VOLUME 97.3 fL (80-100); MEAN CORPUSCULAR HEMOGLOBIN 29.9 pg (25-34); MEAN CORPUSCULAR HGB CONC 30.7 g/dl (32-36); MEAN PLATELET VOLUME 9.5 fL (7.4-10.4); MONO % 12.1 %; NEUT % 62.9 %; PLATELET COUNT 261 K/uL (130-400); RED BLOOD COUNT 2.61 M/uL (4.2-5.4); WHITE BLOOD COUNT 8.35 K/uL (4.8-10.8)
[2017-05-10 07:22] VITALS: BP 113/66; PULSE 96; TEMP 36.6; O2SAT 95
[2017-05-10 07:31] LABS: BUN/CREATININE RATIO 7.6 (10-20); CALCIUM 9.1 mg/dl (8.5-10.1); CREATININE 1.1 mg/dl (0.60-1.20); POTASSIUM 3.2 mmol/L (3.5-5.1)
[2017-05-10 07:34] LABS: ALB/GLOB RATIO 0.7 (0.9-2)
[2017-05-10 07:41] LABS: COMPLETE YES; POLYCHROMASIA 1+
[2017-05-10] MEDS ORDERED: FENTANYL 12 MCG/HR TDSY TD SCH (08:00)
[2017-05-10] MEDS: CHECK FENTANYL PATCH PLACEMENT SCH ×3 (08:09→23:36)
[2017-05-10] MEDS ORDERED: FUROSEMIDE INJ 40 MG in SYRINGE 0 ML IV SCH (09:00)
[2017-05-10] MEDS: PANTOprazole INJ 40 MG in SYRINGE 0 ML IV SCH (09:09)
--- NOTE | 2017-05-10 09:17 | Surgery Progress Note ---
Surgery Progress Note Date of Service May 10, 2017. Subjective Patient examined at bedside this morning. Afebrile, vitals stable overnight on 2L O2 via NC, no acute events. Denies abdominal pain. Did not care for her pureed diet she received last night, but has been tolerating food without N/V. Had a BM this morning. Ambulating with assistance and voiding without difficulty. Biggest complaint this morning is left shoulder pain (she has shoulder problems at baseline), and feels SOB with talking and ambulation. Objective Vital Signs: Date Time Temp Pulse Resp B/P (MAP) Pulse Ox O2 Delivery O2 Flow Rate FiO2 05/10/17 08:26 Room Air 2.0 Nasal Cannula 05/10/17 07:22 36.6 96 20 113/66 (82) 95 Nasal Cannula 2.0 05/10/17 00:31 37.0 05/09/17 23:50 92 05/09/17 23:50 Nasal Cannula 2.0 05/09/17 23:00 37.3 112 22 126/70 (88) 97 Nasal Cannula 2.0 05/09/17 20:37 104 28 100 Nasal Cannula 2.0 05/09/17 19:54 36.6 100 32 140/67 (91) 99 Nasal Cannula 2.0 05/09/17 19:05 103 146/65 (92) 05/09/17 18:14 Room Air 2.0 05/09/17 17:53 95 Room Air 05/09/17 15:45 37.0 92 16 111/65 (80) 96 Nasal Cannula 2.0 05/09/17 15:30 Nasal Cannula 2.0 General Appearance: WD/WN, no apparent distress Head: normocephalic Neck: supple Respiratory/Chest: lungs clear, normal breath sounds, + accessory muscle use ( slightly increased work of breathing with speech) Cardiovascular: regular rate, rhythm Abdomen: normal bowel sounds, non tender, non distended, soft Laboratory Results: Results Past 24 Hours Test 05/09/17 09:24 05/10/17 06:26 Range/Units White Blood Count 10.83 8.35 4.8-10.8 K/uL Red Blood Count 2.82 2.61 4.2-5.4 M/uL Hemoglobin 8.6 7.8 12.0-16.0 g/dL Hematocrit 27.5 25.4 37-47 % Mean Corpuscular Volume 97.5 97.3 80-100 fL Mean Corpuscular Hemoglobin 30.5 29.9 25-34 pg Mean Corpuscular Hemoglobin Concent 31.3 30.7 32-36 g/dl Platelet Count 266 261 130-400 K/uL Mean Platelet Volume 9.3 9.5 7.4-10.4 fL Neutrophils (%) (Auto) 75.7 62.9 % Lymphocytes (%) (Auto) 13.2 21.2 % Monocytes (%) (Auto) 8.3 12.1 % Eosinophils (%) (Auto) 2.4 3.2 % Basophils (%) (Auto) 0.2 0.5 % Neutrophils # (Auto) 8.20 5.25 1.4-6.5 K/uL Lymphocytes # (Auto) 1.43 1.77 1.2-3.4 K/uL Monocytes # (Auto) 0.90 1.01 0.11-0.59 K/uL Eosinophils # (Auto) 0.26 0.27 0-0.5 K/uL Basophils # (Auto) 0.02 0.04 0-0.2 K/uL RDW Standard Deviation 58.4 57.9 36.4-46.3 fL RDW Coefficient of Variation 16.4 16.7 11.5-14.5 % Immature Granulocyte % (Auto) 0.2 0.1 % Immature Granulocyte # (Auto) 0.02 0.01 0.00-0.02 K/uL Toxic Vacuolation 1+ Sodium Level 143 143 136-145 mmol/L Potassium Level 3.3 3.2 3.5-5.1 mmol/L Chloride Level 111 109 98-107 mmol/L Carbon Dioxide Level 24 27 21-32 mmol/L Anion Gap 7.0 7.0 3-11 mmol/L Blood Urea Nitrogen 12 8 7-18 mg/dl Creatinine 1.10 1.10 0.60-1.20 mg/dl Est Creatinine Clear Calc Drug Dose 33.2 33.2 ml/min Estimated GFR () 53.8 53.8 Estimated GFR (Non- 46.4 46.4 BUN/Creatinine Ratio 11.2 7.6 10-20 Random Glucose 111 100 70-99 mg/dl Calcium Level 9.1 9.1 8.5-10.1 mg/dl Total Bilirubin 0.4 0.4 0.2-1 mg/dl Aspartate Amino Transf (AST/SGOT) 24 20 15-37 U/L Alanine Aminotransferase (ALT/SGPT) 12 11 12-78 U/L Alkaline Phosphatase 78 75 45-117 U/L Total Protein 5.7 5.4 6.4-8.2 gm/dl Albumin 2.5 2.3 3.4-5.0 gm/dl Globulin 3.2 3.1 2.5-4.0 gm/dl Albumin/Globulin Ratio 0.8 0.7 0.9-2 Polychromasia 1+ Erythrocyte Sedimentation Rate 29 0-21 mm/hr Assessment & Plan Yany Conley is an 81 year old woman with a large hiatal hernia admitted with a recurrent small bowel obstruction, now resolving. -Regular diet as tolerated - patient does not like pureed -Encourage out of bed / ambulation with assistance -Continue protonix -Rest of care per primary team -Will continue to follow India Virk MD 05/10/17
[2017-05-10] MEDS: ACETAMINOPHEN IV 650 MG in EMPTY BAG 0 ML IV PRN ×3 (10:18→23:59)
[2017-05-10 15:15] VITALS: BP 117/60; PULSE 99; TEMP 36.8; O2SAT 92
[2017-05-10] MEDS ORDERED: FENTANYL PATCH REMOVE & WASTE SCH (15:59)
[2017-05-10] MEDS: FENTANYL 12 MCG/HR TDSY TD SCH (16:28)
--- NOTE | 2017-05-10 19:25 | Progress Note ---
Internal Med Progress Note Date of Service: May 10, 2017. Provider Documentation: SUBJECTIVE: patient eating more solid foods today. no vomiting. no diarrhea OBJECTIVE: General Appearance: no apparent distress Head: normocephalic, atraumatic Eyes: normal inspection, sclerae normal ENT: hearing grossly normal, pharynx normal Neck: supple, no JVD, trachea midline Respiratory/Chest: chest non-tender, lungs clear, normal breath sounds, no respiratory distress, no accessory muscle use Cardiovascular: regular rate, rhythm, no edema, no gallop, no JVD, no murmur, normal peripheral pulses Abdomen/GI: soft, no tenderness, abnormal bowel sounds Back: normal inspection Extremities: normal inspection, no pedal edema Neurologic: no motor/sensory deficits, alert, normal mood/affect, oriented x 3 Skin: normal color, warm/dry, no rash ASSESSMENT & PLAN: 81 yo F with h/o UGIB and SBO this year presents with SBO and coffee ground emesis on hospital admission CT abdomen: Findings are consistent with a small bowel obstruction. A transition point is identified in the right lower quadrant and this is likely on the basis of adhesions. Moderate to large hiatal hernia. General surgery: no acute surgical interventions at this time for small bowl obstruction/adhesions - Minimize narcotics because of bowel obstruction GI was consulted for coffee grounds emesis: avoid endoscopy during small bowel obstruction as endoscopy can increase the risk for perforation in this situation. If any gross GI bleeding or further drop in hemoglobin hematocrit would recommend red tag GI bleeding scan. Upper endoscopy only if clear evidence of upper GI bleeding. -patient CBC had been downtrending on this admission, stable CBC of 8 on consecutive blood draws however today hemoglobin 7.8. 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 Advanced lumbosacral spondylosis and scoliosis are observed. Findings suggest previous insufficiency fractures of the medial lenin bilaterally. This is similar to previous. There are chronic compression deformities of L1 and L4. No lytic or blastic lesions are seen. -minimize narcotics in setting of bowel obstruction, no NSAIDs for now, continue acetaminophen prn HTN-controlled, cont current home medication regimen. DVT prophylaxis SCDs Full code Vital Signs: Date Time Temp Pulse Resp B/P (MAP) Pulse Ox O2 Delivery O2 Flow Rate FiO2 05/10/17 15:55 Room Air 2.0 Nasal Cannula 05/10/17 15:15 36.8 99 16 117/60 (79) 92 Room Air 05/10/17 08:26 Room Air 2.0 Nasal Cannula 05/10/17 07:22 36.6 96 20 113/66 (82) 95 Nasal Cannula 2.0 05/10/17 00:31 37.0 05/09/17 23:50 92 05/09/17 23:50 Nasal Cannula 2.0 05/09/17 23:00 37.3 112 22 126/70 (88) 97 Nasal Cannula 2.0 05/09/17 20:37 104 28 100 Nasal Cannula 2.0 05/09/17 19:54 36.6 100 32 140/67 (91) 99 Nasal Cannula 2.0 Lab Results: Results Past 24 Hours Test 05/10/17 06:26 Range/Units White Blood Count 8.35 4.8-10.8 K/uL Red Blood Count 2.61 4.2-5.4 M/uL Hemoglobin 7.8 12.0-16.0 g/dL Hematocrit 25.4 37-47 % Mean Corpuscular Volume 97.3 80-100 fL Mean Corpuscular Hemoglobin 29.9 25-34 pg Mean Corpuscular Hemoglobin Concent 30.7 32-36 g/dl Platelet Count 261 130-400 K/uL Mean Platelet Volume 9.5 7.4-10.4 fL Neutrophils (%) (Auto) 62.9 % Lymphocytes (%) (Auto) 21.2 % Monocytes (%) (Auto) 12.1 % Eosinophils (%) (Auto) 3.2 % Basophils (%) (Auto) 0.5 % Neutrophils # (Auto) 5.25 1.4-6.5 K/uL Lymphocytes # (Auto) 1.77 1.2-3.4 K/uL Monocytes # (Auto) 1.01 0.11-0.59 K/uL Eosinophils # (Auto) 0.27 0-0.5 K/uL Basophils # (Auto) 0.04 0-0.2 K/uL RDW Standard Deviation 57.9 36.4-46.3 fL RDW Coefficient of Variation 16.7 11.5-14.5 % Immature Granulocyte % (Auto) 0.1 % Immature Granulocyte # (Auto) 0.01 0.00-0.02 K/uL Polychromasia 1+ Erythrocyte Sedimentation Rate 29 0-21 mm/hr Sodium Level 143 136-145 mmol/L Potassium Level 3.2 3.5-5.1 mmol/L Chloride Level 109 98-107 mmol/L Carbon Dioxide Level 27 21-32 mmol/L Anion Gap 7.0 3-11 mmol/L Blood Urea Nitrogen 8 7-18 mg/dl Creatinine 1.10 0.60-1.20 mg/dl Est Creatinine Clear Calc Drug Dose 33.2 ml/min Estimated GFR () 53.8 Estimated GFR (Non- 46.4 BUN/Creatinine Ratio 7.6 10-20 Random Glucose 100 70-99 mg/dl Calcium Level 9.1 8.5-10.1 mg/dl Total Bilirubin 0.4 0.2-1 mg/dl Aspartate Amino Transf (AST/SGOT) 20 15-37 U/L Alanine Aminotransferase (ALT/SGPT) 11 12-78 U/L Alkaline Phosphatase 75 45-117 U/L Total Protein 5.4 6.4-8.2 gm/dl Albumin 2.3 3.4-5.0 gm/dl Globulin 3.1 2.5-4.0 gm/dl Albumin/Globulin Ratio 0.7 0.9-2
[2017-05-10] MEDS ORDERED: METOPROLOL SUCC 25MG EXT REL TAB PO SCH (21:00)
[2017-05-10 21:24] VITALS: BP 106/54; PULSE 95
[2017-05-10] MEDS: METOPROLOL SUCC 25MG EXT REL TAB PO SCH (21:26)
[2017-05-10] MEDS: LORAZEPAM 0.5 MG TAB PO PRN (21:35)
[2017-05-10 23:11] VITALS: BP 115/67; PULSE 94; TEMP 36.7; O2SAT 94
[2017-05-11] VITALS (9 sets, daily range): BP systolic 84–131; BP diastolic 47–82; PULSE 90–96; TEMP 36.8–37.2; O2SAT 94–99
[2017-05-11 05:39] LABS: BASO % 0.5 %; BASO ABS # 0.04 K/uL (0-0.2); EOS % 3.8 %; HEMATOCRIT 25.3 % (37-47); IG% 0.1 %; LYMPH % 22.5 %; LYMPH ABS # 1.84 K/uL (1.2-3.4); MEAN CELL VOLUME 96.9 fL (80-100); MEAN PLATELET VOLUME 9.4 fL (7.4-10.4); MONO % 11.4 %; NEUT % 61.7 %; PLATELET COUNT 248 K/uL (130-400); RED BLOOD COUNT 2.61 M/uL (4.2-5.4); WHITE BLOOD COUNT 8.16 K/uL (4.8-10.8)
[2017-05-11 06:14] LABS: BUN/CREATININE RATIO 8.4 (10-20); CALCIUM 9.3 mg/dl (8.5-10.1); CREATININE 1.3 mg/dl (0.60-1.20); POTASSIUM 3.3 mmol/L (3.5-5.1)
[2017-05-11 06:18] LABS: ALB/GLOB RATIO 0.7 (0.9-2)
[2017-05-11 06:27] LABS: COMPLETE YES; VACUOLIZATION 1+
--- NOTE | 2017-05-11 07:32 | Surgery Progress Note ---
Surgery Progress Note Date of Service May 11, 2017. Subjective + complaints (feels weak), + bowel movement, + diet, No nausea regular lunch and dinner Objective Vital Signs: Date Time Temp Pulse Resp B/P (MAP) Pulse Ox O2 Delivery O2 Flow Rate FiO2 05/11/17 07:13 36.8 96 16 115/77 (90) 99 Nasal Cannula 2.0 05/10/17 23:35 Nasal Cannula 2.0 05/10/17 23:11 36.7 94 20 115/67 (83) 94 Nasal Cannula 2.0 05/10/17 21:24 95 106/54 (71) 05/10/17 19:40 Room Air 2.0 Nasal Cannula 05/10/17 15:55 Room Air 2.0 Nasal Cannula 05/10/17 15:15 36.8 99 16 117/60 (79) 92 Room Air 05/10/17 08:26 Room Air 2.0 Nasal Cannula Abdomen: non tender, non distended, soft Laboratory Results: Results Past 24 Hours Test 05/11/17 05:20 Range/Units White Blood Count 8.16 4.8-10.8 K/uL Red Blood Count 2.61 4.2-5.4 M/uL Hemoglobin 8.1 12.0-16.0 g/dL Hematocrit 25.3 37-47 % Mean Corpuscular Volume 96.9 80-100 fL Mean Corpuscular Hemoglobin 31.0 25-34 pg Mean Corpuscular Hemoglobin Concent 32.0 32-36 g/dl Platelet Count 248 130-400 K/uL Mean Platelet Volume 9.4 7.4-10.4 fL Neutrophils (%) (Auto) 61.7 % Lymphocytes (%) (Auto) 22.5 % Monocytes (%) (Auto) 11.4 % Eosinophils (%) (Auto) 3.8 % Basophils (%) (Auto) 0.5 % Neutrophils # (Auto) 5.03 1.4-6.5 K/uL Lymphocytes # (Auto) 1.84 1.2-3.4 K/uL Monocytes # (Auto) 0.93 0.11-0.59 K/uL Eosinophils # (Auto) 0.31 0-0.5 K/uL Basophils # (Auto) 0.04 0-0.2 K/uL RDW Standard Deviation 57.9 36.4-46.3 fL RDW Coefficient of Variation 16.6 11.5-14.5 % Immature Granulocyte % (Auto) 0.1 % Immature Granulocyte # (Auto) 0.01 0.00-0.02 K/uL Toxic Vacuolation 1+ Sodium Level 140 136-145 mmol/L Potassium Level 3.3 3.5-5.1 mmol/L Chloride Level 106 98-107 mmol/L Carbon Dioxide Level 27 21-32 mmol/L Anion Gap 7.0 3-11 mmol/L Blood Urea Nitrogen 11 7-18 mg/dl Creatinine 1.30 0.60-1.20 mg/dl Est Creatinine Clear Calc Drug Dose 28.1 ml/min Estimated GFR () 43.9 Estimated GFR (Non- 37.9 BUN/Creatinine Ratio 8.4 10-20 Random Glucose 108 70-99 mg/dl Calcium Level 9.3 8.5-10.1 mg/dl Total Bilirubin 0.4 0.2-1 mg/dl Aspartate Amino Transf (AST/SGOT) 19 15-37 U/L Alanine Aminotransferase (ALT/SGPT) 13 12-78 U/L Alkaline Phosphatase 77 45-117 U/L Total Protein 5.3 6.4-8.2 gm/dl Albumin 2.2 3.4-5.0 gm/dl Globulin 3.1 2.5-4.0 gm/dl Albumin/Globulin Ratio 0.7 0.9-2 Assessment & Plan recurrent PSBO, resolving ask therapy & dietary to see for home recs
[2017-05-11] MEDS ORDERED: POTASSIUM CHLORIDE 20 MEQ TABCR PO ONE (08:00)
[2017-05-11] MEDS ORDERED: POTASSIUM CHLR 10 MEQ / WTR 10 MEQ in PREMIXED WATER 100 ML IV ONE (08:00)
[2017-05-11] MEDS: CHECK FENTANYL PATCH PLACEMENT SCH ×2 (08:00→16:02)
[2017-05-11] MEDS: PANTOprazole SOD 40 MG TAB PO SCH (08:53)
[2017-05-11] MEDS: METOPROLOL SUCC 25MG EXT REL TAB PO SCH ×2 (08:58→21:47)
[2017-05-11] MEDS ORDERED: FUROSEMIDE 20 MG TAB PO SCH (09:00)
--- NOTE | 2017-05-11 09:26 | Surgery Progress Note ---
Surgery Progress Note Date of Service May 11, 2017. Subjective alert, sitting in chair- eating breakfast says she can't eat much Objective Vital Signs: Date Time Temp Pulse Resp B/P (MAP) Pulse Ox O2 Delivery O2 Flow Rate FiO2 05/11/17 08:56 94 104/66 (79) 05/11/17 07:13 36.8 96 16 115/77 (90) 99 Nasal Cannula 2.0 05/10/17 23:35 Nasal Cannula 2.0 05/10/17 23:11 36.7 94 20 115/67 (83) 94 Nasal Cannula 2.0 05/10/17 21:24 95 106/54 (71) 05/10/17 19:40 Room Air 2.0 Nasal Cannula 05/10/17 15:55 Room Air 2.0 Nasal Cannula 05/10/17 15:15 36.8 99 16 117/60 (79) 92 Room Air General Appearance: no apparent distress Respiratory/Chest: no respiratory distress Laboratory Results: Results Past 24 Hours Test 05/11/17 05:20 Range/Units White Blood Count 8.16 4.8-10.8 K/uL Red Blood Count 2.61 4.2-5.4 M/uL Hemoglobin 8.1 12.0-16.0 g/dL Hematocrit 25.3 37-47 % Mean Corpuscular Volume 96.9 80-100 fL Mean Corpuscular Hemoglobin 31.0 25-34 pg Mean Corpuscular Hemoglobin Concent 32.0 32-36 g/dl Platelet Count 248 130-400 K/uL Mean Platelet Volume 9.4 7.4-10.4 fL Neutrophils (%) (Auto) 61.7 % Lymphocytes (%) (Auto) 22.5 % Monocytes (%) (Auto) 11.4 % Eosinophils (%) (Auto) 3.8 % Basophils (%) (Auto) 0.5 % Neutrophils # (Auto) 5.03 1.4-6.5 K/uL Lymphocytes # (Auto) 1.84 1.2-3.4 K/uL Monocytes # (Auto) 0.93 0.11-0.59 K/uL Eosinophils # (Auto) 0.31 0-0.5 K/uL Basophils # (Auto) 0.04 0-0.2 K/uL RDW Standard Deviation 57.9 36.4-46.3 fL RDW Coefficient of Variation 16.6 11.5-14.5 % Immature Granulocyte % (Auto) 0.1 % Immature Granulocyte # (Auto) 0.01 0.00-0.02 K/uL Toxic Vacuolation 1+ Sodium Level 140 136-145 mmol/L Potassium Level 3.3 3.5-5.1 mmol/L Chloride Level 106 98-107 mmol/L Carbon Dioxide Level 27 21-32 mmol/L Anion Gap 7.0 3-11 mmol/L Blood Urea Nitrogen 11 7-18 mg/dl Creatinine 1.30 0.60-1.20 mg/dl Est Creatinine Clear Calc Drug Dose 28.1 ml/min Estimated GFR () 43.9 Estimated GFR (Non- 37.9 BUN/Creatinine Ratio 8.4 10-20 Random Glucose 108 70-99 mg/dl Calcium Level 9.3 8.5-10.1 mg/dl Magnesium Level 1.4 1.8-2.4 mg/dl Total Bilirubin 0.4 0.2-1 mg/dl Aspartate Amino Transf (AST/SGOT) 19 15-37 U/L Alanine Aminotransferase (ALT/SGPT) 13 12-78 U/L Alkaline Phosphatase 77 45-117 U/L Total Protein 5.3 6.4-8.2 gm/dl Albumin 2.2 3.4-5.0 gm/dl Globulin 3.1 2.5-4.0 gm/dl Albumin/Globulin Ratio 0.7 0.9-2 Assessment & Plan 05/11/17- seems sxs are mostly from Hiatal Hernia but relatively high risk for surgery. Cont medical mgt- if necessary Dr Samano could see pt as outpt 05/08/17- improved- has anemia after rehydration- had coffee grounds from ng- ? gastritis/ ? ulcer- will try clear liquids. continue to follow. 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 nonoperative mgt for now- IV fluids for dehydration NG decompression- monitor electrolytes, Mg Phos 05/08/17- improved- has anemia after rehydration- had coffee grounds from ng- ? gastritis/ ? ulcer- will try clear liquids. continue to follow. 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 nonoperative mgt for now- IV fluids for dehydration NG decompression- monitor electrolytes, Mg Phos
[2017-05-11] MEDS: MAGNESIUM SULFATE 1GM / D5W 1 GM in PREMIXED IN D5W 100 ML IV SCH ×4 (10:36→14:13)
[2017-05-11 15:29] LABS: ALB/GLOB RATIO 0.7 (0.9-2); BUN/CREATININE RATIO 7.7 (10-20); CALCIUM 9.9 mg/dl (8.5-10.1); CREATININE 1.3 mg/dl (0.60-1.20); MAGNESIUM 2.2 mg/dl (1.8-2.4)
[2017-05-11] MEDS ORDERED: WARFARIN SOD 2 MG TAB PO SCH (16:00)
[2017-05-11] MEDS ORDERED: LEVALBUTEROL 1.25MG/3ML NEB INH STA (17:45)
[2017-05-11] MEDS ORDERED: FUROSEMIDE INJ 20 MG in SYRINGE 0 ML IV ONE (18:10)
--- NOTE | 2017-05-11 18:16 | DIAGNOSTIC IMAGING REPORT ---
CHEST ONE VIEW PORTABLE CLINICAL HISTORY: 81 years-old Female presenting with air entry is moderate, pedal edema, rule out congestion. TECHNIQUE: Portable upright AP view of the chest was obtained. COMPARISON: 05/09/2017. FINDINGS: Atherosclerosis of the aortic arch, which is prominent. Increased prominence of the tortuous descending thoracic aorta. Cardiac silhouette within normal limits. Mildly low lung volumes. Minimal left basilar opacity unchanged. No large pleural effusion or pneumothorax. Exaggerated thoracic kyphosis. Upper abdomen normal. IMPRESSION: 1. Prominent and tortuous contour of the aorta. This may be exaggerated given the patient's kyphosis and mildly low lung volumes. 2. No rolando pulmonary edema. Electronically signed by: José Miguel Rios M.D. 05/11/2017 6:14 PM Dictated Date/Time: 05/11/2017 6:09 PM
--- NOTE | 2017-05-11 20:17 | Progress Note ---
Internal Med Progress Note Date of Service: May 11, 2017. Provider Documentation: SUBJECTIVE: patient eating more solid foods today. no vomiting. no diarrhea OBJECTIVE: General Appearance: no apparent distress Head: normocephalic, atraumatic Eyes: normal inspection, sclerae normal ENT: hearing grossly normal, pharynx normal Neck: supple, no JVD, trachea midline Respiratory/Chest: chest non-tender, lungs clear, normal breath sounds, no respiratory distress, no accessory muscle use Cardiovascular: regular rate, rhythm, no edema, no gallop, no JVD, no murmur, normal peripheral pulses Abdomen/GI: soft, no tenderness, abnormal bowel sounds Back: normal inspection Extremities: normal inspection, no pedal edema Neurologic: no motor/sensory deficits, alert, normal mood/affect, oriented x 3 Skin: normal color, warm/dry, no rash ASSESSMENT & PLAN: 81 yo F with h/o UGIB and SBO this year presents with SBO and coffee ground emesis on hospital admission CT abdomen: Findings are consistent with a small bowel obstruction. A transition point is identified in the right lower quadrant and this is likely on the basis of adhesions. Moderate to large hiatal hernia. General surgery: no acute surgical interventions at this time for small bowl obstruction/adhesions - Minimize narcotics because of bowel obstruction GI was consulted for coffee grounds emesis: avoid endoscopy during small bowel obstruction as endoscopy can increase the risk for perforation in this situation. If any gross GI bleeding or further drop in hemoglobin hematocrit would recommend red tag GI bleeding scan. Upper endoscopy only if clear evidence of upper GI bleeding. there does not appear to be plans to perform upper endoscopy as inpatient patient CBC had been downtrending on this admission, stable CBC of around 8. coumadin restarted today on Thursday05/11/17 as 2 mg qhs for Thursday/Thursday/ Thursday, 1mg qhs for other days maintain active type and screen On protonics Recurrent PE/DVT-warfarin restarted Other cardiovascular health -on Lasix Electrolytes -potassium and magnesium repleted today, likely losses are from diuretics History or arthritis as per patient -Other CT findings: The skeletal structures are osteopenic. Advanced lumbosacral spondylosis and scoliosis are observed. Findings suggest previous insufficiency fractures of the medial lenin bilaterally. This is similar to previous. There are chronic compression deformities of L1 and L4. No lytic or blastic lesions are seen. -minimized narcotics in setting of bowel obstruction, no NSAIDs for now, continue acetaminophen prn HTN-controlled, cont current home medication regimen. DVT prophylaxis SCDs Full code Vital Signs: Date Time Temp Pulse Resp B/P (MAP) Pulse Ox O2 Delivery O2 Flow Rate FiO2 05/11/17 18:09 91 16 96 Nasal Cannula 2.0 05/11/17 15:36 37.1 90 16 115/72 (86) 95 Nasal Cannula 2.0 05/11/17 13:55 94 94 05/11/17 11:55 Nasal Cannula 2.0 05/11/17 08:56 94 104/66 (79) 05/11/17 07:13 36.8 96 16 115/77 (90) 99 Nasal Cannula 2.0 05/10/17 23:35 Nasal Cannula 2.0 05/10/17 23:11 36.7 94 20 115/67 (83) 94 Nasal Cannula 2.0 05/10/17 21:24 95 106/54 (71) Lab Results: Results Past 24 Hours Test 05/11/17 05:20 05/11/17 13:54 Range/Units White Blood Count 8.16 4.8-10.8 K/uL Red Blood Count 2.61 4.2-5.4 M/uL Hemoglobin 8.1 12.0-16.0 g/dL Hematocrit 25.3 37-47 % Mean Corpuscular Volume 96.9 80-100 fL Mean Corpuscular Hemoglobin 31.0 25-34 pg Mean Corpuscular Hemoglobin Concent 32.0 32-36 g/dl Platelet Count 248 130-400 K/uL Mean Platelet Volume 9.4 7.4-10.4 fL Neutrophils (%) (Auto) 61.7 % Lymphocytes (%) (Auto) 22.5 % Monocytes (%) (Auto) 11.4 % Eosinophils (%) (Auto) 3.8 % Basophils (%) (Auto) 0.5 % Neutrophils # (Auto) 5.03 1.4-6.5 K/uL Lymphocytes # (Auto) 1.84 1.2-3.4 K/uL Monocytes # (Auto) 0.93 0.11-0.59 K/uL Eosinophils # (Auto) 0.31 0-0.5 K/uL Basophils # (Auto) 0.04 0-0.2 K/uL RDW Standard Deviation 57.9 36.4-46.3 fL RDW Coefficient of Variation 16.6 11.5-14.5 % Immature Granulocyte % (Auto) 0.1 % Immature Granulocyte # (Auto) 0.01 0.00-0.02 K/uL Toxic Vacuolation 1+ Sodium Level 140 137 136-145 mmol/L Potassium Level 3.3 4.0 3.5-5.1 mmol/L Chloride Level 106 104 98-107 mmol/L Carbon Dioxide Level 27 26 21-32 mmol/L Anion Gap 7.0 8.0 3-11 mmol/L Blood Urea Nitrogen 11 10 7-18 mg/dl Creatinine 1.30 1.30 0.60-1.20 mg/dl Est Creatinine Clear Calc Drug Dose 28.1 28.1 ml/min Estimated GFR () 43.9 43.9 Estimated GFR (Non- 37.9 37.9 BUN/Creatinine Ratio 8.4 7.7 10-20 Random Glucose 108 128 70-99 mg/dl Calcium Level 9.3 9.9 8.5-10.1 mg/dl Magnesium Level 1.4 2.2 1.8-2.4 mg/dl Total Bilirubin 0.4 0.4 0.2-1 mg/dl Aspartate Amino Transf (AST/SGOT) 19 27 15-37 U/L Alanine Aminotransferase (ALT/SGPT) 13 14 12-78 U/L Alkaline Phosphatase 77 98 45-117 U/L Total Protein 5.3 6.5 6.4-8.2 gm/dl Albumin 2.2 2.6 3.4-5.0 gm/dl Globulin 3.1 3.9 2.5-4.0 gm/dl Albumin/Globulin Ratio 0.7 0.7 0.9-2
[2017-05-11] MEDS: ACETAMINOPHEN IV 650 MG in EMPTY BAG 0 ML IV PRN (21:41)
[2017-05-11] MEDS: LORAZEPAM 0.5 MG TAB PO PRN (21:46)
[2017-05-12] MEDS: CHECK FENTANYL PATCH PLACEMENT SCH ×2 (00:05→08:39)
[2017-05-12] MEDS ORDERED: SODIUM CHLORIDE 0.9% 500ML 500 ML IV SCH (00:45)
[2017-05-12 03:02] VITALS: BP 118/71; PULSE 76; TEMP 36.5; O2SAT 97
[2017-05-12 06:58] VITALS: BP 123/81; PULSE 75; TEMP 36.5; O2SAT 97
[2017-05-12 07:08] LABS: BASO % 0.5 %; BASO ABS # 0.04 K/uL (0-0.2); EOS % 4.8 %; HEMATOCRIT 25.7 % (37-47); IG% 0.3 %; LYMPH % 22.3 %; LYMPH ABS # 1.73 K/uL (1.2-3.4); MEAN CORPUSCULAR HEMOGLOBIN 30.2 pg (25-34); MEAN CORPUSCULAR HGB CONC 31.1 g/dl (32-36); MEAN PLATELET VOLUME 9.6 fL (7.4-10.4); MONO % 12.4 %; NEUT % 59.7 %; PLATELET COUNT 274 K/uL (130-400); RED BLOOD COUNT 2.65 M/uL (4.2-5.4); WHITE BLOOD COUNT 7.77 K/uL (4.8-10.8)
[2017-05-12 07:16] LABS: INR 1.2 (0.9-1.1); PARTIAL THROMBOPLASTIN RATIO 1.2; PROTHROMBIN TIME (PATIENT) 13.2 SECONDS (9.0-12.0)
[2017-05-12 07:37] LABS: COMPLETE YES
[2017-05-12 07:39] LABS: BUN/CREATININE RATIO 9.4 (10-20); CALCIUM 9.4 mg/dl (8.5-10.1); CREATININE 1.2 mg/dl (0.60-1.20); MAGNESIUM 2.1 mg/dl (1.8-2.4); POTASSIUM 3.8 mmol/L (3.5-5.1)
[2017-05-12 07:42] LABS: ALB/GLOB RATIO 0.6 (0.9-2)
[2017-05-12 07:50] VITALS: O2SAT 97
[2017-05-12] MEDS ORDERED: NURSING VERBAL MED ORDER ONE (09:00)
[2017-05-12] MEDS: METOPROLOL SUCC 25MG EXT REL TAB PO SCH (09:02)
[2017-05-12] MEDS: PANTOprazole SOD 40 MG TAB PO SCH (09:02)
--- NOTE | 2017-05-12 09:24 | Surgery Progress Note ---
Surgery Progress Note Date of Service May 12, 2017. Subjective no acute changes overnight, tolerating diet + bowel movements, no N/V Objective Vital Signs: Date Time Temp Pulse Resp B/P (MAP) Pulse Ox O2 Delivery O2 Flow Rate FiO2 05/12/17 07:50 97 Nasal Cannula 2.0 05/12/17 06:58 36.5 75 15 123/81 (95) 97 Nasal Cannula 2.0 05/12/17 03:02 36.5 76 16 118/71 (87) 97 Nasal Cannula 2.0 05/11/17 23:45 88/50 (63) 05/11/17 23:45 84/47 (59) 05/11/17 23:30 Nasal Cannula 2.0 05/11/17 23:00 37.2 90 16 85/49 (61) 96 Nasal Cannula 2.0 05/11/17 23:00 86/53 (64) 05/11/17 21:10 126/82 (97) 05/11/17 18:09 91 16 96 Nasal Cannula 2.0 05/11/17 16:10 95 Nasal Cannula 2.0 05/11/17 15:36 37.1 90 16 115/72 (86) 95 Nasal Cannula 2.0 05/11/17 13:55 94 94 05/11/17 11:55 Nasal Cannula 2.0 General Appearance: no apparent distress Respiratory/Chest: no respiratory distress Abdomen: soft Laboratory Results: Results Past 24 Hours Test 05/11/17 13:54 05/12/17 06:41 Range/Units Sodium Level 137 138 136-145 mmol/L Potassium Level 4.0 3.8 3.5-5.1 mmol/L Chloride Level 104 105 98-107 mmol/L Carbon Dioxide Level 26 26 21-32 mmol/L Anion Gap 8.0 7.0 3-11 mmol/L Blood Urea Nitrogen 10 11 7-18 mg/dl Creatinine 1.30 1.20 0.60-1.20 mg/dl Est Creatinine Clear Calc Drug Dose 28.1 30.4 ml/min Estimated GFR () 43.9 48.4 Estimated GFR (Non- 37.9 41.8 BUN/Creatinine Ratio 7.7 9.4 10-20 Random Glucose 128 103 70-99 mg/dl Calcium Level 9.9 9.4 8.5-10.1 mg/dl Magnesium Level 2.2 2.1 1.8-2.4 mg/dl Total Bilirubin 0.4 0.4 0.2-1 mg/dl Aspartate Amino Transf (AST/SGOT) 27 20 15-37 U/L Alanine Aminotransferase (ALT/SGPT) 14 12 12-78 U/L Alkaline Phosphatase 98 80 45-117 U/L Total Protein 6.5 5.6 6.4-8.2 gm/dl Albumin 2.6 2.2 3.4-5.0 gm/dl Globulin 3.9 3.4 2.5-4.0 gm/dl Albumin/Globulin Ratio 0.7 0.6 0.9-2 White Blood Count 7.77 4.8-10.8 K/uL Red Blood Count 2.65 4.2-5.4 M/uL Hemoglobin 8.0 12.0-16.0 g/dL Hematocrit 25.7 37-47 % Mean Corpuscular Volume 97.0 80-100 fL Mean Corpuscular Hemoglobin 30.2 25-34 pg Mean Corpuscular Hemoglobin Concent 31.1 32-36 g/dl Platelet Count 274 130-400 K/uL Mean Platelet Volume 9.6 7.4-10.4 fL Neutrophils (%) (Auto) 59.7 % Lymphocytes (%) (Auto) 22.3 % Monocytes (%) (Auto) 12.4 % Eosinophils (%) (Auto) 4.8 % Basophils (%) (Auto) 0.5 % Neutrophils # (Auto) 4.65 1.4-6.5 K/uL Lymphocytes # (Auto) 1.73 1.2-3.4 K/uL Monocytes # (Auto) 0.96 0.11-0.59 K/uL Eosinophils # (Auto) 0.37 0-0.5 K/uL Basophils # (Auto) 0.04 0-0.2 K/uL RDW Standard Deviation 57.4 36.4-46.3 fL RDW Coefficient of Variation 16.4 11.5-14.5 % Immature Granulocyte % (Auto) 0.3 % Immature Granulocyte # (Auto) 0.02 0.00-0.02 K/uL Red Blood Cell Morphology Unremarkable Prothrombin Time 13.2 9.0-12.0 SECONDS Prothromb Time International Ratio 1.2 0.9-1.1 Activated Partial Thromboplast Time 31.0 21.0-31.0 SECONDS Partial Thromboplastin Ratio 1.2 Assessment & Plan 05/12/17- no plan for surgical intervention- cont supportive care will sign off- call if needed 05/11/17- seems sxs are mostly from Hiatal Hernia but relatively high risk for surgery. Cont medical mgt- if necessary Dr Samano could see pt as outpt 05/08/17- improved- has anemia after rehydration- had coffee grounds from ng- ? gastritis/ ? ulcer- will try clear liquids. continue to follow. 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 nonoperative mgt for now- IV fluids for dehydration NG decompression- monitor electrolytes, Mg Phos 05/11/17- seems sxs are mostly from Hiatal Hernia but relatively high risk for surgery. Cont medical mgt- if necessary Dr Samano could see pt as outpt 05/08/17- improved- has anemia after rehydration- had coffee grounds from ng- ? gastritis/ ? ulcer- will try clear liquids. continue to follow. 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 nonoperative mgt for now- IV fluids for dehydration NG decompression- monitor electrolytes, Mg Phos
--- NOTE | 2017-05-12 09:45 | Progress Note ---
Internal Med Progress Note Date of Service: May 12, 2017. Provider Documentation: SUBJECTIVE: patient eating solid foods today. no vomiting. no diarrhea. denies blood in urine or in stool OBJECTIVE: General Appearance: no apparent distress Head: normocephalic, atraumatic Eyes: normal inspection, sclerae normal ENT: hearing grossly normal, pharynx normal Neck: supple, no JVD, trachea midline Respiratory/Chest: chest non-tender, normal breath sounds, no respiratory distress, no accessory muscle use Cardiovascular: regular rate, rhythm, no edema, no gallop, no JVD, no murmur, normal peripheral pulses Abdomen/GI: soft, no tenderness, abnormal bowel sounds Back: normal inspection Extremities: normal inspection, no pedal edema Neurologic: no motor/sensory deficits, alert, normal mood/affect, oriented x 3 Skin: normal color, warm/dry, no rash ASSESSMENT & PLAN: 81 yo F with h/o UGIB and SBO this year presents with SBO and coffee ground emesis on hospital admission CT abdomen: Findings are consistent with a small bowel obstruction. A transition point is identified in the right lower quadrant and this is likely on the basis of adhesions. Moderate to large HIATAL HERNIA General surgery: no acute surgical interventions at this time for small bowl obstruction/adhesions - Minimize narcotics because of bowel obstruction GI was consulted for coffee grounds emesis Patient was followed by GI and upper endoscopy was not required Patient CBC had been downtrending on this admission, stable CBC of around 8. coumadin restarted on Thursday05/11/17 as 2 mg qhs for Thursday/Thursday/Thursday, 1mg qhs for other days On protonics Recurrent PE/DVT-warfarin restarted on 05/11/17, INR on 05/12/17 is subtherapeutic 1.2 Other cardiovascular health -on Lasix Electrolytes deficiencies on this admission: Hypokalemia and Hypomagnesemia requiring oral and IV repletions -likely losses are from diuretics, will likely need reduced dose of lasix at home History or arthritis as per patient -Other CT findings: The skeletal structures are osteopenic. Advanced lumbosacral spondylosis and scoliosis are observed. Findings suggest previous insufficiency fractures of the medial lenin bilaterally. This is similar to previous. There are chronic compression deformities of L1 and L4. No lytic or blastic lesions are seen. -minimized narcotics in setting of bowel obstruction, no NSAIDs for now, continue acetaminophen prn HTN-controlled, cont current home medication regimen. DVT prophylaxis SCDs while in hospital Full code Disposition: discharge to home on 05/12/17 Follow up appointments and instructions 05/13/2017 6:15 PM [facility] to continue patient on coumadin and check INR 05/15/2017 1:00 PM Myrna Inman MD General Internal Medicine [facility] [phone] for primary care follow up As per general surgery note; patient may be followed up by Dr. Samano from general surgery as her abdominal symptoms may be related to hiatal hernia Vital Signs: Date Time Temp Pulse Resp B/P (MAP) Pulse Ox O2 Delivery O2 Flow Rate FiO2 05/12/17 07:50 97 Nasal Cannula 2.0 05/12/17 06:58 36.5 75 15 123/81 (95) 97 Nasal Cannula 2.0 05/12/17 03:02 36.5 76 16 118/71 (87) 97 Nasal Cannula 2.0 05/11/17 23:45 88/50 (63) 05/11/17 23:45 84/47 (59) 05/11/17 23:30 Nasal Cannula 2.0 05/11/17 23:00 37.2 90 16 85/49 (61) 96 Nasal Cannula 2.0 05/11/17 23:00 86/53 (64) 05/11/17 21:10 126/82 (97) 05/11/17 18:09 91 16 96 Nasal Cannula 2.0 05/11/17 16:10 95 Nasal Cannula 2.0 05/11/17 15:36 37.1 90 16 115/72 (86) 95 Nasal Cannula 2.0 05/11/17 13:55 94 94 05/11/17 11:55 Nasal Cannula 2.0 Lab Results: Results Past 24 Hours Test 05/11/17 13:54 05/12/17 06:41 Range/Units Sodium Level 137 138 136-145 mmol/L Potassium Level 4.0 3.8 3.5-5.1 mmol/L Chloride Level 104 105 98-107 mmol/L Carbon Dioxide Level 26 26 21-32 mmol/L Anion Gap 8.0 7.0 3-11 mmol/L Blood Urea Nitrogen 10 11 7-18 mg/dl Creatinine 1.30 1.20 0.60-1.20 mg/dl Est Creatinine Clear Calc Drug Dose 28.1 30.4 ml/min Estimated GFR () 43.9 48.4 Estimated GFR (Non- 37.9 41.8 BUN/Creatinine Ratio 7.7 9.4 10-20 Random Glucose 128 103 70-99 mg/dl Calcium Level 9.9 9.4 8.5-10.1 mg/dl Magnesium Level 2.2 2.1 1.8-2.4 mg/dl Total Bilirubin 0.4 0.4 0.2-1 mg/dl Aspartate Amino Transf (AST/SGOT) 27 20 15-37 U/L Alanine Aminotransferase (ALT/SGPT) 14 12 12-78 U/L Alkaline Phosphatase 98 80 45-117 U/L Total Protein 6.5 5.6 6.4-8.2 gm/dl Albumin 2.6 2.2 3.4-5.0 gm/dl Globulin 3.9 3.4 2.5-4.0 gm/dl Albumin/Globulin Ratio 0.7 0.6 0.9-2 White Blood Count 7.77 4.8-10.8 K/uL Red Blood Count 2.65 4.2-5.4 M/uL Hemoglobin 8.0 12.0-16.0 g/dL Hematocrit 25.7 37-47 % Mean Corpuscular Volume 97.0 80-100 fL Mean Corpuscular Hemoglobin 30.2 25-34 pg Mean Corpuscular Hemoglobin Concent 31.1 32-36 g/dl Platelet Count 274 130-400 K/uL Mean Platelet Volume 9.6 7.4-10.4 fL Neutrophils (%) (Auto) 59.7 % Lymphocytes (%) (Auto) 22.3 % Monocytes (%) (Auto) 12.4 % Eosinophils (%) (Auto) 4.8 % Basophils (%) (Auto) 0.5 % Neutrophils # (Auto) 4.65 1.4-6.5 K/uL Lymphocytes # (Auto) 1.73 1.2-3.4 K/uL Monocytes # (Auto) 0.96 0.11-0.59 K/uL Eosinophils # (Auto) 0.37 0-0.5 K/uL Basophils # (Auto) 0.04 0-0.2 K/uL RDW Standard Deviation 57.4 36.4-46.3 fL RDW Coefficient of Variation 16.4 11.5-14.5 % Immature Granulocyte % (Auto) 0.3 % Immature Granulocyte # (Auto) 0.02 0.00-0.02 K/uL Red Blood Cell Morphology Unremarkable Prothrombin Time 13.2 9.0-12.0 SECONDS Prothromb Time International Ratio 1.2 0.9-1.1 Activated Partial Thromboplast Time 31.0 21.0-31.0 SECONDS Partial Thromboplastin Ratio 1.2
[2017-05-12] MEDS ORDERED: FURO-85 PO (09:57)
--- NOTE | 2017-05-12 10:06 | Discharge Instructions ---
Discharge Instructions Date of Service May 12, 2017. Admission Reason for Admission: SBO Discharge Discharge Diagnosis / Problem: hematemesis, Upper GI bleed, small bowel obstruction, hiatal hernia Discharge Goals Goal(s): Decrease discomfort, Improve disease control Activity Recommendations Activity Limitations: per Instructions/Follow-up section Lifting Limitations: until after follow-up appointment Exercise/Sports Limitations: until after follow-up appointment Shower/Bathe: no limitations . Instructions / Follow-Up Instructions / Follow-Up 81 yo F with h/o UGIB and SBO this year presents with SBO and coffee ground emesis on hospital admission CT abdomen: Findings are consistent with a small bowel obstruction. A transition point is identified in the right lower quadrant and this is likely on the basis of adhesions. Moderate to large HIATAL HERNIA General surgery: no acute surgical interventions at this time for small bowl obstruction/adhesions - Minimize narcotics because of bowel obstruction GI was consulted for coffee grounds emesis Patient was followed by GI and upper endoscopy was not required Patient CBC had been downtrending on this admission, stable CBC of around 8. coumadin restarted on Thursday05/11/17 as 2 mg qhs for Thursday/Thursday/Thursday, 1mg qhs for other days On protonics Recurrent PE/DVT-warfarin restarted on 05/11/17, INR on 05/12/17 is subtherapeutic 1.2 Other cardiovascular health -on Lasix Electrolytes deficiencies on this admission: Hypokalemia and Hypomagnesemia requiring oral and IV repletions -likely losses are from diuretics, will likely need reduced dose of lasix at home History or arthritis as per patient -Other CT findings: The skeletal structures are osteopenic. Advanced lumbosacral spondylosis and scoliosis are observed. Findings suggest previous insufficiency fractures of the medial lenin bilaterally. This is similar to previous. There are chronic compression deformities of L1 and L4. No lytic or blastic lesions are seen. -minimized narcotics in setting of bowel obstruction, no NSAIDs for now, continue acetaminophen prn HTN-controlled, cont current home medication regimen. DVT prophylaxis SCDs while in hospital Full code Disposition: discharge to home on 05/12/17 Follow up appointments and instructions 05/13/2017 6:15 PM [facility], [facility] [phone] to continue patient on coumadin and check INR 05/15/2017 1:00 PM Myrna Inman MD General Internal Medicine [facility] [phone] for primary care follow up As per general surgery note; patient may be followed up by Dr. Samano from general surgery as her abdominal symptoms may be related to hiatal hernia Current Hospital Diet Patient's current hospital diet: AHA Diet (Heart Healthy) Discharge Diet Recommended Diet: AHA Diet (Heart Healthy) Pending Studies Studies pending at discharge: no Laboratory Results 05/12/17 06:41 Red Blood Count 2.65, Mean Corpuscular Volume 97.0, Mean Corpuscular Hemoglobin 30.2, Mean Corpuscular Hemoglobin Concent 31.1, Mean Platelet Volume 9.6, Neutrophils (%) (Auto) 59.7, Lymphocytes (%) (Auto) 22.3, Monocytes (%) (Auto) 12.4, Eosinophils (%) (Auto) 4.8, Basophils (%) (Auto) 0.5, Neutrophils # (Auto ) 4.65, Lymphocytes # (Auto) 1.73, Monocytes # (Auto) 0.96, Eosinophils # (Auto ) 0.37, Basophils # (Auto) 0.04 05/12/17 06:41 Test 05/07/17 03:50 05/07/17 05:45 05/08/17 05:25 05/08/17 11:49 Lactic Acid Level 1.2 mmol/L (0.4-2.0) Lipase 116 U/L (73-393) Urine Color YELLOW Urine Appearance CLOUDY (CLEAR) Urine pH 7.5 (4.5-7.5) Urine Specific [place] 1.015 (1.000-1.030) Urine Protein NEG (NEG) Urine Glucose (UA) NEG (NEG) Urine Ketones NEG (NEG) Urine Occult Blood NEG (NEG) Urine Nitrite NEG (NEG) Urine Bilirubin NEG (NEG) Urine Urobilinogen NEG (NEG) Urine Leukocyte Esterase LARGE (NEG) Urine WBC (Auto) >30 /hpf (0-5) Urine RBC (Auto) 0-4 /hpf (0-4) Urine Hyaline Casts (Auto) 1-5 /lpf (0-5) Urine Epithelial Cells (Auto) 10-20 /lpf (0-5) Urine Bacteria (Auto) NEG (NEG) Phosphorus Level 3.8 mg/dl (2.5-4.9) Hyposegmented Neutrophils 1+ Toxic Granulation 1+ Stomatocytes 1+ Test 05/10/17 06:26 05/11/17 05:20 05/12/17 06:41 Polychromasia 1+ Erythrocyte Sedimentation Rate 29 mm/hr (0-21) Toxic Vacuolation 1+ White Blood Count 7.77 K/uL (4.8-10.8) Red Blood Count 2.65 M/uL (4.2-5.4) Hemoglobin 8.0 g/dL (12.0-16.0) Hematocrit 25.7 % (37-47) Mean Corpuscular Volume 97.0 fL (80-100) Mean Corpuscular Hemoglobin 30.2 pg (25-34) Mean Corpuscular Hemoglobin Concent 31.1 g/dl (32-36) Platelet Count 274 K/uL (130-400) Mean Platelet Volume 9.6 fL (7.4-10.4) Neutrophils (%) (Auto) 59.7 % Lymphocytes (%) (Auto) 22.3 % Monocytes (%) (Auto) 12.4 % Eosinophils (%) (Auto) 4.8 % Basophils (%) (Auto) 0.5 % Neutrophils # (Auto) 4.65 K/uL (1.4-6.5) Lymphocytes # (Auto) 1.73 K/uL (1.2-3.4) Monocytes # (Auto) 0.96 K/uL (0.11-0.59) Eosinophils # (Auto) 0.37 K/uL (0-0.5) Basophils # (Auto) 0.04 K/uL (0-0.2) RDW Standard Deviation 57.4 fL (36.4-46.3) RDW Coefficient of Variation 16.4 % (11.5-14.5) Immature Granulocyte % (Auto) 0.3 % Immature Granulocyte # (Auto) 0.02 K/uL (0.00-0.02) Red Blood Cell Morphology Unremarkable Prothrombin Time 13.2 SECONDS (9.0-12.0) Prothromb Time International Ratio 1.2 (0.9-1.1) Activated Partial Thromboplast Time 31.0 SECONDS (21.0-31.0) Partial Thromboplastin Ratio 1.2 Anion Gap 7.0 mmol/L (3-11) Est Creatinine Clear Calc Drug Dose 30.4 ml/min Estimated GFR () 48.4 Estimated GFR (Non- 41.8 BUN/Creatinine Ratio 9.4 (10-20) Calcium Level 9.4 mg/dl (8.5-10.1) Magnesium Level 2.1 mg/dl (1.8-2.4) Total Bilirubin 0.4 mg/dl (0.2-1) Aspartate Amino Transf (AST/SGOT) 20 U/L (15-37) Alanine Aminotransferase (ALT/SGPT) 12 U/L (12-78) Alkaline Phosphatase 80 U/L (45-117) Total Protein 5.6 gm/dl (6.4-8.2) Albumin 2.2 gm/dl (3.4-5.0) Globulin 3.4 gm/dl (2.5-4.0) Albumin/Globulin Ratio 0.6 (0.9-2) Date/Time Source Procedure Growth Status 05/07/17 05:45 Urine , Clean Catch Urine Culture - Final THREE TYPES OF ORGANISMS PRESENT, ALL... Complete Medical Emergencies . Who to Call and When: Medical Emergencies: If at any time you feel your situation is an emergency, please call 911 immediately. . Non-Emergent Contact Non-Emergency issues call your: Primary Care Provider . . "Provider Documentation" section prepared by Evelio Starkey. . VTE Core Measure Inpt VTE Proph given/why not?: Contraindicated
--- NOTE | 2017-05-12 10:07 | Discharge Summary ---
Discharge Summary Date of Service May 12, 2017. Discharge Summary Admission Date: May 07, 2017 at 06:30 Discharge Date: May 12, 2017 Discharge Disposition: Home Principal Diagnosis: hematemesis, Upper GI bleed, small bowel obstruction, hiatal hernia Secondary Diagnoses/Problems: cardiac history including history of TAVR (transcatheter aortic valve replacement) on lasix and coumadin, thromboembolism risks on anticoagulation Medication Reconciliation New Medications: Furosemide (Lasix) 20 Mg Tab 20 MG PO DAILY for 30 Days, #30 TAB 1 Refill Continued Medications: Acetaminophen (Acetaminophen) 325 Mg Tab 650 MG PO PRN for Pain Albuterol Sulf (Proventil 0.083% 2.5MG/3ML) 2.5 Mg/3 Ml Nebu 2.5 MG INH QID PRN for SOB/Wheezing, EA Ascorbic Acid (Ascorbic Acid) 250 Mg Tab 250 MG PO DAILY Fentanyl (Fentanyl) 12 Mcg Tdsy 1 PATCH TD every 72 hours Ferrous Sulfate (Ferrous Sulfate) 325 Mg Tab 325 MG PO BID Fluticasone Prop/Salmeterol (Advair Diskus 250/50 60 Dose) 1 Ea Aerp 1 PUFF INH BID, INHALER PT ONLY USES NEEDED Home O2 Therapy (Oxygen) Gas 2 LITERS NA UD 2 liters HS and PRN Lorazepam (Lorazepam) 0.5 Mg Tab 0.5 MG PO HS PRN for Insomnia Magnesium Oxide (Mag-Ox) 400 Mg Tab 400 MG PO DAILY, TAB Metoprolol Succinate (Metoprolol Succinate ER) 25 Mg Tabcr 12.5 MG PO BID Mirtazapine Soltab (Remeron Soltab) 15 Mg Soltab 15 MG PO HS, TAB Multiple Vitamin (Multivitamin) 1 Tab Tab 1 TABLET PO DAILY for 30 Days take with supper Ondansetron Hcl (Zofran) 4 Mg Tab 4 MG PO Q6 PRN for Nausea, TAB Oxycodone/Acetaminophen 5MG/325MG (Percocet 5MG/325MG) Tab 1 TABLET PO Q8H PRN for Pain, TAB Pantoprazole (Protonix) 40 Mg Tab 40 MG PO DAILY, #30 TAB Paroxetine (Paroxetine HCl) 40 Mg Tab 40 MG PO DAILY Potassium Chloride (Potassium Chloride Er) 10 Meq Cap 10 MEQ PO BID for 90 Days, #180 CAP 1 Refill Ranitidine Hcl (Ranitidine Hcl) 300 Mg Cap 1 CAP PO HS for 30 Days, CAP 3 Refills Warfarin Sod (Jantoven) 1 Mg Tab 1 MG PO 4XWK, TAB TAKES SUN, TUES, THURS, & SAT. Warfarin Sod (Jantoven) 1 Mg Tab 2 MG PO 3XWK TAKES MON, WED, & FRI. Discontinued Medications: Furosemide (Lasix) 20 Mg Tab 40 MG PO DAILY, TAB Prednisone (Prednisone) 5 Mg Tab 5 MG PO DAILY Admission Information HPI (per Admitting provider): 81 yo F with 2 days of nausea and abdominal pain began vomiting coffee grounds overnight. Her abdominal pain is in the epigastric region and at the time of this examination which was post-NGT placement to suction and post-morphine, her abdominal pain had resolved. Her pain was initially an 8/10. She did also report one day of diarrhea that was described as watery but without any blood. She has a h/o EGD Aug 2015 for epigastric abdominal pain and dysphagia revealing a tortuous esophagus, patchy candidiasis, a large type III paraesophageal hernia, and diffuse erythema in the stomach. She was dilated at this visit. Her last colonoscopy was in May 2013 revealing non-thrombosed internal hemorrhoids, multiple non-bleeding colonic angioectasias, internal hemorrhoids and mod diverticulosis. She was hospitalized for an UGIB 12/10/16-. GI was planning to scope her as an outpatient, keep her on her coumadin (for chronic recurrent PE/DVT) and monitor her CBC twice monthly. She underwent the pre-op but did not yet have the scope since discharge. Additionally, she was hospitalized 12/29-01/08/17 for a SBO which resolved with supportive care. Physical Exam (per Admitting): General Appearance: WD/WN, no apparent distress Head: normocephalic, atraumatic, + pertinent finding (NGT in place with black-reddish liquid in suction container. 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 A transition point is identified in the right lower quadrant and this is likely on the basis of adhesions. Moderate to large HIATAL HERNIA General surgery: no acute surgical interventions at this time for small bowl obstruction/adhesions - Minimize narcotics because of bowel obstruction GI was consulted for coffee grounds emesis Patient was followed by GI and upper endoscopy was not required Patient CBC had been downtrending on this admission, stable CBC of around 8. coumadin restarted on Thursday05/11/17 as 2 mg qhs for Thursday/Thursday/Thursday, 1mg qhs for other days On protonics Recurrent PE/DVT-warfarin restarted on 05/11/17, INR on 05/12/17 is subtherapeutic 1.2 Other cardiovascular health -on Lasix Electrolytes deficiencies on this admission: Hypokalemia and Hypomagnesemia requiring oral and IV repletions -likely losses are from diuretics, will likely need reduced dose of lasix at home History or arthritis as per patient -Other CT findings: The skeletal structures are osteopenic. Advanced lumbosacral spondylosis and scoliosis are observed. Findings suggest previous insufficiency fractures of the medial lenin bilaterally. This is similar to previous. There are chronic compression deformities of L1 and L4. No lytic or blastic lesions are seen. -minimized narcotics in setting of bowel obstruction, no NSAIDs for now, continue acetaminophen prn HTN-controlled, cont current home medication regimen. DVT prophylaxis SCDs while in hospital Full code Disposition: discharge to home on 05/12/17 Follow up appointments and instructions 05/13/2017 6:15 PM [facility], [facility] to continue patient on coumadin and check INR 05/15/2017 1:00 PM Myrna Inman MD General Internal Medicine [facility] [phone] for primary care follow up As per general surgery note; patient may be followed up by Dr. Samano from general surgery as her abdominal symptoms may be related to hiatal hernia Total time spent on discharge = This includes examination of the patient, discharge planning, medication reconciliation, and communication with other providers. Discharge Instructions Disposition: discharge to home on 05/12/17 Follow up appointments and instructions 05/13/2017 6:15 PM [facility], [facility] to continue patient on coumadin and check INR 05/15/2017 1:00 PM Myrna Inman MD General Internal Medicine [facility] [phone] for primary care follow up As per general surgery note; patient may be followed up by Dr. Samano from general surgery as her abdominal symptoms may be related to hiatal hernia
[2017-05-12 11:10] VITALS: BP 123/81; PULSE 75; TEMP 36.5; O2SAT 97
[2017-05-12] MEDS ORDERED: WARFARIN SOD 1 MG TAB PO SCH (16:00)
[2017-05-13] MEDS ORDERED: FENTANYL PATCH REMOVE & WASTE SCH (07:59)
== END 2017-05-12 15:45 | disposition hospice, home (50) | DRG 378 ==
LOC: C.EDB 03:13 → C.MSN 06:30 → ENRESERV 07:17
PROVIDERS: ADMIT Hospitalist; ATTEND Internal Medicine
DX: K92.0 Hematemesis (principal); K56.51 Intestinal adhesions [bands], with partial obstruction; I13.0 Hypertensive heart and chronic kidney disease with heart failure and stage 1 through stage 4 chronic kidney disease, or unspecified chronic kidney disease; Z51.5 Encounter for palliative care; D68.2 Hereditary deficiency of other clotting factors; B37.81 Candidal esophagitis; Q43.9 Congenital malformation of intestine, unspecified; K44.9 Diaphragmatic hernia without obstruction or gangrene; I50.9 Heart failure, unspecified; M47.897 Other spondylosis, lumbosacral region; N18.3 Chronic kidney disease, stage 3 (moderate); Z85.828 Personal history of other malignant neoplasm of skin; K31.84 Gastroparesis; K58.9 Irritable bowel syndrome, unspecified; M81.0 Age-related osteoporosis without current pathological fracture; Z95.2 Presence of prosthetic heart valve; I25.10 Atherosclerotic heart disease of native coronary artery without angina pectoris; E87.6 Hypokalemia; E83.42 Hypomagnesemia; Z79.01 Long term (current) use of anticoagulants; K31.89 Other diseases of stomach and duodenum; Z53.09 Procedure and treatment not carried out because of other contraindication; D64.9 Anemia, unspecified; E86.0 Dehydration

== ENCOUNTER → 2017-05-15 | Outpatient (CLI) | payer OTHER, BC ==
[~2017-05-15] MED LIST changes: +ACET-1346 PO; -ACET325T30 PO; -ASCO1CAP3 PO; +ASCO250T5 PO; -CFT250 PO; +DOCU-94 PO; +DRGTP12 TD; +FERR325T5 PO; +FNTTP50 TD; -FRRS300 PO; +LAXATIVES PO; +MIRT15TA2 PO; -PRD5 PO; +PRT40 PO; +RANI300C PO; +SNK OR
== END | disposition home or self-care (01) ==
LOC: C.LABSPEC 12:40
PROVIDERS: ATTEND Internal Medicine
DX: I50.9 Heart failure, unspecified (principal)

== ENCOUNTER 2017-05-22 18:39 | Inpatient (IN) | payer OTHER, BC ==
[~2017-05-22] VITALS: Ht 154.9 cm; Wt 71.4 kg
[~2017-05-22 18:39] MED LIST changes: -DOCU-94 PO; -FNTTP50 TD; -LAXATIVES PO; -PRT40 PO; -SNK OR
[2017-05-22 20:11] LABS: HEMATOCRIT 22.8 % (37-47); IG% 0.4 %; LYMPH % 11.5 %; LYMPH ABS # 1.53 K/uL (1.2-3.4); MEAN CELL VOLUME 95.8 fL (80-100); MEAN CORPUSCULAR HEMOGLOBIN 29.8 pg (25-34); MEAN CORPUSCULAR HGB CONC 31.1 g/dl (32-36); MEAN PLATELET VOLUME 9.5 fL (7.4-10.4); NEUT % 82.1 %; PLATELET COUNT 362 K/uL (130-400); RED BLOOD COUNT 2.38 M/uL (4.2-5.4); WHITE BLOOD COUNT 13.36 K/uL (4.8-10.8)
[2017-05-22 20:27] LABS: INR 1.3 (0.9-1.1); PROTHROMBIN TIME (PATIENT) 13.7 SECONDS (9.0-12.0)
--- NOTE | 2017-05-22 20:27 | EMERGENCY ROOM VISIT NOTE ---
History Report prepared by Henrique: Mariah Chaudhari Under the Supervision of: Dr. Abhilash Delcid M.D. First contact with patient: 18:57 Chief Complaint: SHORTNESS OF BREATH Stated Complaint: NEED BLOOD TRANSFUSION Nursing Triage Summary: Pt states she feels short of breath. Had blood work Hgb 6.8 was told to come into the ER for a blood transfusion. History of Present Illness The patient is an 81 year old female who presents to the Emergency Room with complaints of persistent fatigue starting this morning. The patient is on hospice for CHF. Her son states that this morning she was very weak and fatigued. She had blood work today that showed her hemoglobin was 6.8. He reports that when her hemoglobin goes below 8 she has a difficult time at home because of her weakness. She comes to the ED today for a blood transfusion. She has a history of GI bleeding. She has had some blood in her stools. She is SOB. She does not have any increased leg swelling. She was on Coumadin for a history of PE. Her Coumadin was stopped last week. She is on Lasix. She has a history of stage 3 kidney failure. Source of History: patient, family Onset: this morning Position: other (global) Quality: other (fatigue) Timing: other (persistent) Associated Symptoms: + SOB, + hematochezia, + weakness Review of Systems See HPI for pertinent positives and negatives. A total of ten systems were reviewed and were otherwise negative. 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 (13) Falls (14) Gastroparesis (15) GERD (gastroesophageal reflux disease) (16) Hiatal hernia (17) History of acute minda lesion (18) History of endometrial cancer (19) History of GI bleed (20) History of pulmonary embolism (21) IBS (irritable bowel syndrome) (22) Obstructive lung disease (23) Osteoporosis (24) Polyarthritis (25) Recurrent UTI (26) Temporal arteritis Surgical Problems: (1) Hx of cystoscopy (2) S/P left knee arthroscopy (3) S/P TAVR (transcatheter aortic valve replacement) (4) Status post cataract extraction (5) Status post coronary artery stent placement (6) Status post hysterectomy Family History Cancer Diabetes mellitus FH: cardiovascular disease MOTHER Gallbladder disease Hypertension Social History Smoking Status: Never Smoker Alcohol Use: none Drug Use: none Marital Status: Housing Status: lives alone Occupation Status: retired Current/Historical Medications Scheduled Ascorbic Acid (Ascorbic Acid), 250 MG PO DAILY Fentanyl (Fentanyl), 1 PATCH TD every 72 hours Ferrous Sulfate (Ferrous Sulfate), 325 MG PO BID Fluticasone Prop/Salmeterol (Advair Diskus 250/50 60 Dose), 1 PUFF INH BID Furosemide (Lasix), 20 MG PO DAILY Home O2 Therapy (Oxygen), 2 LITERS NA UD Magnesium Oxide (Mag-Ox), 400 MG PO DAILY Metoprolol Succinate (Metoprolol Succinate ER), 12.5 MG PO BID Mirtazapine Soltab (Remeron Soltab), 15 MG PO HS Multiple Vitamin (Multivitamin), 1 TABLET PO DAILY Pantoprazole (Protonix), 40 MG PO DAILY Paroxetine (Paroxetine HCl), 40 MG PO DAILY Potassium Chloride (Potassium Chloride Er), 10 MEQ PO BID Ranitidine Hcl (Ranitidine Hcl), 1 CAP PO HS Warfarin Sod (Jantoven), 1 MG PO 4XWK Warfarin Sod (Jantoven), 2 MG PO 3XWK [Laxatives], 1 DOSE PO UD Scheduled PRN Acetaminophen (Acetaminophen), 650 MG PO for Pain Albuterol Sulf (Proventil 0.083% 2.5MG/3ML), 2.5 MG INH QID PRN for SOB/Wheezing Lorazepam (Lorazepam), 0.5 MG PO HS PRN for Insomnia Ondansetron Hcl (Zofran), 4 MG PO Q6 PRN for Nausea Oxycodone/Acetaminophen 5MG/325MG (Percocet 5MG/325MG), 1 TABLET PO Q8H PRN for Pain Allergies Coded Allergies: Cefdinir (Verified Allergy, Mild, RASH-HAS HAD ROCEPHIN,CEFEPIME MANY TIMES, 05/22/17) Clonazepam (Verified Allergy, Unknown, ., 05/22/17) Levofloxacin (Verified Allergy, Unknown, unknown, 05/22/17) Sulfasalazine (Verified Allergy, Unknown, ., 05/22/17) Metoclopramide (Verified Adverse Reaction, Intermediate, TREMORS, 05/22/17 ) Physical Exam Vital Signs Date Time Temp Pulse Resp B/P (MAP) Pulse Ox O2 Delivery O2 Flow Rate FiO2 05/22/17 23:05 74 05/22/17 23:00 73 18 100/54 94 Room Air 05/22/17 20:47 75 22 114/58 92 Room Air 05/22/17 19:11 79 05/22/17 19:00 97 Room Air 05/22/17 18:46 95 Room Air 05/22/17 18:42 36.3 82 22 123/72 95 Room Air Physical Exam GENERAL: Awake, alert, chronically ill-appearing, fatigued, in no acute distress HENT: Normocephalic, atraumatic. Dry mucous membranes. EYES: Normal conjunctiva. Sclera non-icteric. NECK: Supple. No nuchal rigidity. FROM. Mild JVD. RESPIRATORY: Diminished breath sounds posteriorly, clear anteriorly. CARDIAC: Regular rate, normal rhythm. Extremities warm and well perfused. Pulses equal. ABDOMEN: Soft, non-distended. No tenderness to palpation. No rebound or guarding. No masses. RECTAL: Melena, guaiac positive. MUSCULOSKELETAL: Chest examination reveals no tenderness. The back is symmetrical on inspection without obvious abnormality. There is no CVA tenderness to palpation. No joint edema. LOWER EXTREMITIES: Calves are equal size bilaterally and non-tender. 2+ bilateral lower extremity edema. No discoloration. NEURO: Normal sensorium. No sensory or motor deficits noted. SKIN: No rash or jaundice noted. Medical Decision & Procedures ER Provider Diagnostic Interpretation: Radiology results as stated below per my review and radiologist interpretation: CHEST ONE VIEW PORTABLE CLINICAL HISTORY: Shortness of breath COMPARISON STUDY: 05/11/2017 FINDINGS: The heart is at the upper limits of normal in size. There is aortic tortuosity/ectasia. There is a retrocardiac opacity consistent with a hiatal hernia. There is mild interstitial thickening. There is no lobar consolidation. There is no overt failure. Increased markings the right lung apex, likely representing patient. No corresponding mass is visualized on the preceding study.[ IMPRESSION: AP portable study. No acute findings. Electronically signed by: Austin Harman M.D. 05/22/2017 8:59 PM Dictated Date/Time: 05/22/2017 8:58 PM Laboratory Results Test 05/22/17 19:24 05/22/17 20:30 Spherocytes 1+ Prothrombin Time 13.7 SECONDS (9.0-12.0) Prothromb Time International Ratio 1.3 (0.9-1.1) Magnesium Level 2.0 mg/dl (1.8-2.4) Total Bilirubin 0.1 mg/dl (0.2-1) Direct Bilirubin < 0.1 mg/dl (0-0.2) Aspartate Amino Transf (AST/SGOT) 20 U/L (15-37) Alanine Aminotransferase (ALT/SGPT) 14 U/L (12-78) Alkaline Phosphatase 85 U/L (45-117) Total Protein 6.4 gm/dl (6.4-8.2) Albumin 2.6 gm/dl (3.4-5.0) Lipase 71 U/L (73-393) Urine Color YELLOW Urine Appearance CLOUDY (CLEAR) Urine pH 6.0 (4.5-7.5) Urine Specific [place] 1.014 (1.000-1.030) Urine Protein NEG (NEG) Urine Glucose (UA) NEG (NEG) Urine Ketones NEG (NEG) Urine Occult Blood NEG (NEG) Urine Nitrite NEG (NEG) Urine Bilirubin NEG (NEG) Urine Urobilinogen NEG (NEG) Urine Leukocyte Esterase LARGE (NEG) Urine WBC (Auto) >30 /hpf (0-5) Urine RBC (Auto) 0-4 /hpf (0-4) Urine Hyaline Casts (Auto) 5-10 /lpf (0-5) Urine Epithelial Cells (Auto) 5-10 /lpf (0-5) Urine Bacteria (Auto) 2+ (NEG) Laboratory results reviewed by me ECG Indication: weakness Rate (beats per minute): 77 Rhythm: normal sinus Findings: nonspecific-ST abn (V2), left axis deviation, other (normal intervals ) Comparison ECG Date: 07-May-2017 Change: ST abnormality in V2 is new. ED Course 1899: The patient was evaluated in room C6. A complete history and physical exam was performed. 2044: Upon reexamination, the patient was stable. I discussed the test results and treatment plan with her and her son. They verbalized agreement of the treatment plan. The patient will be evaluated for further management. 2151: I discussed the [facility]'s [facility]. The patient will be evaluated for further treatment and disposition. Medical Decision I reviewed the patient's past medical history, medications, and the nursing notes as described above. Differential diagnosis: GI bleed, symptomatic anemia, high output heart failure , dehydration, electrolyte abnormality. The patient is an 81-year-old woman with a past medical history of CHF currently in home hospice as well as a recent admission for small bowel obstruction nose managed medically, and history of GI bleeds previously on Coumadin presents to the emergency Department with worsening fatigue and shortness of breath with outpatient labs by hospice with anemia of 6.8 per HPI. On arrival patient is chronically ill-appearing but in no acute distress. She is afebrile with stable vital signs. Rectal exam shows positive melena that is guaiac positive. CM assisting in clarifying patient's recent goals of care under hospice care. Patient does say that she would prefer to simply get transfused and be discharged, given the patient's comorbidities with terminal CHF and CKD patient will need slow transfusion with combined with diuresis and thus admission most approrpiate. CM able to clarify current hospice care and they are agreeable with admission for transfusion, without compromising patient' s current hospice status. Case d/w [facility] who will admit the patient for further management. Hbg 7.1. Patient in NAD and hemodynamically stable. Will defer transfusion/diuresis to admitting team. Medication Reconcilliation Current Medication List: was personally reviewed by me Blood Pressure Screening Patient's blood pressure: Normal blood pressure Blood pressure disposition: Did not require urgent referral Consults Time Called: 2101 [facility] Returned Call: [phone] Discussed the patient's case. The patient will be evaluated for further treatment and disposition. Impression Primary Impression: Anemia Additional Impressions: Melena GI bleed SOB (shortness of breath) Scribe Attestation The scribe's documentation has been prepared under my direction and personally reviewed by me in its entirety. I confirm that the note above accurately reflects all work, treatment, procedures, and medical decision making performed by me. Departure Information Dispostion Being Evaluated By Hospitalist Referrals Myrna Inman M.D. (PCP) Patient Instructions My [facility] Problem Qualifiers
[2017-05-22 20:32] LABS: ALT/SGPT 14 U/L (12-78); BLOOD UREA NITROGEN 28 mg/dl (7-18); BUN/CREATININE RATIO 19.7 (10-20); CALCIUM 9.8 mg/dl (8.5-10.1); CARBON DIOXIDE 26 mmol/L (21-32); CHLORIDE 98 mmol/L (98-107); CREATININE 1.43 mg/dl (0.60-1.20); GLUCOSE 127 mg/dl (70-99); POTASSIUM 4.7 mmol/L (3.5-5.1); SODIUM 131 mmol/L (136-145)
[2017-05-22 20:34] LABS: ALKALINE PHOSPHATASE 85 U/L (45-117); AST/SGOT 20 U/L (15-37)
[2017-05-22] MEDS ORDERED: FURO-85 PO (20:37)
[2017-05-22] MEDS ORDERED: LAXATIVES PO (20:40)
[2017-05-22] MEDS ORDERED: FNTTP50 TD (20:40)
[2017-05-22 20:44] LABS: COMPLETE YES; SPHEROCYTE 1+
--- NOTE | 2017-05-22 21:01 | DIAGNOSTIC IMAGING REPORT ---
CHEST ONE VIEW PORTABLE CLINICAL HISTORY: Shortness of breath COMPARISON STUDY: 05/11/2017 FINDINGS: The heart is at the upper limits of normal in size. There is aortic tortuosity/ectasia. There is a retrocardiac opacity consistent with a hiatal hernia. There is mild interstitial thickening. There is no lobar consolidation. There is no overt failure. Increased markings the right lung apex, likely representing patient. No corresponding mass is visualized on the preceding study.[ IMPRESSION: AP portable study. No acute findings. Electronically signed by: Austin Harman M.D. 05/22/2017 8:59 PM Dictated Date/Time: 05/22/2017 8:58 PM
[2017-05-22] MEDS ORDERED: PANTOprazole INJ 80 MG in DEXTROSE 5% 100ML IV STA (23:29)
[2017-05-22] MEDS ORDERED: NITROGLYCERIN 0.4 MG SL PER TAB CHARGE SL PRN (23:30)
[2017-05-22] MEDS ORDERED: ONDANSETRON 4 MG TAB PO PRN (23:30)
[2017-05-22] MEDS ORDERED: HYDROmorphone INJ 0.5 MG/0.5 ML SYR IV PRN (23:30)
[2017-05-22] MEDS ORDERED: FENTANYL 12 MCG/HR TDSY TD SCH (23:30)
[2017-05-22] MEDS ORDERED: LORAZEPAM 0.5 MG TAB PO PRN (23:30)
[2017-05-22] MEDS ORDERED: ALBUTEROL 0.083% NEBU SOLN 3 ML VIAL INH PRN (23:30)
[2017-05-22] MEDS ORDERED: ACETAMINOPHEN 325 MG TAB PO PRN ×2 (23:30)
[2017-05-22] MEDS ORDERED: ONDANSETRON INJ 2 MG/ML 2 ML VIAL IV PRN (23:30)
[2017-05-22] MEDS ORDERED: LORAZEPAM 0.5 MG TAB PO STA (23:58)
[2017-05-23] VITALS (11 sets, daily range): BP systolic 99–143; BP diastolic 63–75; PULSE 64–84; TEMP 36.4–36.6; O2SAT 93–98; Ht 154.9 cm; Wt 71.4 kg
[2017-05-23] MEDS ORDERED: SODIUM CHLORIDE 0.9% 1000ML 1,000 ML IV SCH (00:30)
[2017-05-23] MEDS: PANTOprazole INJ 40 MG in DEXTROSE 5% 100ML IV SCH ×6 (01:22→22:37)
[2017-05-23 01:27] LABS: URINE APPEARANCE CLOUDY (CLEAR); URINE BILIRUBIN NEG (NEG); URINE COLOR YELLOW; URINE NITRITE NEG (NEG); URINE SPECIFIC GRAVITY 1.014 (1.000-1.030); UROBILINOGEN NEG (NEG); ZZUR CULT IF INDIC CLEAN CATCH YES
[2017-05-23 01:36] LABS: MANUAL MICROSCOPIC REQUIRED? NO; REVIEW REQ? YES
[2017-05-23] MEDS ORDERED: FENTANYL 12 MCG/HR TDSY TD ONE (01:38)
[2017-05-23] MEDS ORDERED: INFLUENZA VACCINE HIGH DOSE 65+ 0.5 ML SYR IM. ONE (05:00)
[2017-05-23] MEDS ORDERED: INFLUENZA ADMINISTRATION CHARGE ONE (05:00)
[2017-05-23] MEDS ORDERED: BISACODYL 10 MG SUPP PR PRN (06:00)
[2017-05-23 06:12] LABS: COMPLETE YES; IG% 0.3 %; LYMPH % 14.5 %; LYMPH ABS # 1.74 K/uL (1.2-3.4); MEAN CELL VOLUME 92.4 fL (80-100); MEAN CORPUSCULAR HGB CONC 31.4 g/dl (32-36); MEAN PLATELET VOLUME 9.5 fL (7.4-10.4); MONO % 5.4 %; NEUT % 79.8 %; PLATELET COUNT 356 K/uL (130-400); RED BLOOD COUNT 3.14 M/uL (4.2-5.4); WHITE BLOOD COUNT 11.98 K/uL (4.8-10.8)
[2017-05-23 06:42] LABS: BUN/CREATININE RATIO 21.6 (10-20); CALCIUM 9.8 mg/dl (8.5-10.1); CREATININE 1.45 mg/dl (0.60-1.20); POTASSIUM 4.4 mmol/L (3.5-5.1)
--- NOTE | 2017-05-23 06:57 | HISTORY & PHYSICAL EXAMINATION ---
[place] DATE OF ADMISSION: 05/22/2017 PRIMARY CARE PHYSICIAN: Myrna Inman MD. CHIEF COMPLAINT: Weakness, anemia. HISTORY OF PRESENT ILLNESS: Medical history obtained from the patient, son, and records. Medical history significant for history of CAD status post CABG, recurrent pulmonary embolism, off anticoagulation, recurrent UTI, history of endometrial cancer status post surgery and radiation, IBS, gastroparesis, mood disorder, chronic anemia (baseline hemoglobin of 8), history of C. diff, sp TAVR, pulmonary fibrosis as per records, skin cancer as per records. Chronic pain on narcotics, History MRSA Recent confinement from 05/07/2017 to 05/19/2017 for hematemesis UGIB, small- bowel obstruction. SBO symptoms resolved without operative intervention. GI consulted for coffee ground emesis. EGD deferred. Patient discharged home, daily Prednisone fo OA stopped. Home hospice arrangements made outpatient for additional care at home. Anticoagulant stopped outpatient due to high risk for bleeding. Since discharge from the hospital, intermittent black stools, no emesis. Increasing weakness especially on exertion noted last few days. Usual abdominal bloating. Patient's son requested for blood work to be drawn. Outpatient Hemoglobin today noted to be 6.8. Patient sent to the Emergency Room. MEDICAL HISTORY: As above. An EGD done August 2015 shows tortuous esophagus, large hiatal hernia, gastritis. Colonoscopy done in May 2013 showed nonthrombosed internal hemorrhoids, colonic angioectasia, internal hemorrhoids. SURGERIES: She has had hysterectomy, knee surgery, urologic procedures, TAVR. HOME MEDICATIONS: Include Tylenol, Proventil, ferrous sulfate, Advair, Lasix, fentanyl oxygen, lorazepam, multivitamin, mag oxide, metoprolol, Remeron, Zofran, Percocet, potassium chloride, Protonix, paroxetine, ranitidine. ALLERGIES: CLONAZEPAM, REGLAN, SULFASALAZINE, CEFDINIR, LEVOFLOXACIN. FAMILY HISTORY: Hypertension. PERSONAL AND SOCIAL HISTORY: Nonsmoker. 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 REVIEW OF SYSTEMS: As per HPI. All other ROS negative. PHYSICAL EXAMINATION: VITAL SIGNS: Blood pressure was noted to be 114/68, pulse rate 79, RR 22, temperature 36.3, sats 92% on room air. GENERAL: Noted to be comfortable, cushingoid, slightly anxious, no respiratory distress. SKIN: Pallor, warm. HEENT: Pale palpebral conjunctivae. No ptosis. Dry mucosa. NECK: Short neck, supple. CHEST: Clear to auscultation. CV: RRR. Palpable lower extremity pulses. ABDOMEN: Some distention, no tenderness. RECTAL as per ER M.D.: dark stool, heme positive. EXTREMITIES: Minimal LE edema, no tenderness. No gross deformity. NEUROLOGIC: Coherent , no gross focality. LABORATORY DATA: Hemoglobin was noted to be 7.1, platelets noted to be 362. Sodium noted to be 131, potassium 4.7, chloride 98, CO2 26, BUN 28, creatinine 1.4, glucose 127. UA showed large wbc est positive. ASSESSMENT: 1. Symptomatic anemia Acute on chronic anemia ongoing slow upper gastrointestinal bleeding. 2. Hypertension, BP on lower side. 3. ARF, hyponatremia, clinical dehydration 4. History of CAD sp coronary artery bypass grafting. 5. Aortic stenosis, status post transcatheter aortic valve replacement. 6. History of pulmonary embolism, off anticoagulation. 7. endometrial cancer status post surgery. 8. Chronic pain on narcotics. 9. sacral decubitus wound, present from recent confinement, no sepsis. 10. History pulmonary fibrosis per records 11. History MRSA PLAN: PCU IV PPI serial H and H, transfuse packed RBC to maintain hemoglobin greater than 8 (hx CAD) GI consult as per patient request. (Patient amenable to endoscopy if necessary. Patient known to Dr. Lees.) Monitor creatinine response to IVF, Hold home diuretics until creatinine at baseline. Wound care nurse follow-up evaluation for sacral decubitus wound DVT prophylaxis, SCDs. RE UGIB DNR. Patient's son requesting for updates from providers. Mr. Mekhi Conley at [phone]. [facility]
[2017-05-23] MEDS: CHECK FENTANYL PATCH PLACEMENT SCH ×2 (08:00→16:14)
[2017-05-23] MEDS ORDERED: FENTANYL PATCH REMOVE & WASTE SCH (08:59)
[2017-05-23] MEDS ORDERED: FENTANYL 12 MCG/HR TDSY TD SCH (09:00)
[2017-05-23] MEDS: FLUTICASONE/SALMETEROL 250/50 (ADVAIR) 14 PUFF/1 INHALER INH SCH ×3 (09:00→20:26)
[2017-05-23] MEDS: MULTIVITAMIN TAB PO SCH ×2 (09:00→10:30)
[2017-05-23] MEDS: PAROXETINE 20 MG TAB PO SCH (10:28)
[2017-05-23] MEDS: FERROUS SULFATE 325 MG TAB PO SCH ×2 (10:28→20:26)
[2017-05-23] MEDS: METOPROLOL SUCC 25MG EXT REL TAB PO SCH ×2 (10:28→20:27)
--- NOTE | 2017-05-23 10:54 | GASTROINTESTINAL CONSULTATION ---
DATE OF CONSULTATION: 05/23/2017 DATE OF CONSULTATION: 05/23/2017 ATTENDING PHYSICIAN: Dr. Fields. CONSULTING PHYSICIAN: Dr. Ovalle. REASON FOR CONSULTATION: Questionable upper GI bleed. HISTORY OF PRESENT ILLNESS: Yany Conley is an 81-year-old female who presented to the Department of Emergency Medicine with dark stools and emesis over the last few days. It should be noted that she was hospitalized from 05/07/2017 to 05/19/2017 for hematemesis with questionable upper GI bleeding, small-bowel obstruction; however, no interventions were performed at that time. She was discharged home on hospice and anticoagulation therapy for a history of recurrent pulmonary embolism was stopped as the patient was on hospice. She did have an EGD as recently as August 2015, which showed large hiatal hernia as well as candidiasis and gastritis. Biopsies at that time showed chronic gastritis, though no other findings. She was seen 2 weeks ago on her prior admission by Elsie Eli, nurse practitioner with [facility] and at that point the patient stated that she would like to avoid endoscopy and decision was made to defer upper endoscopy unless there was any overt GI bleeding. On arrival to the Department of Emergency Medicine, she was noted to have an H&H of 6.8 and 21.9. She was transfused 1 unit of packed red blood cells and had an increase in her H&H to 9.1 and 29.0. I did see the patient at her bedside this morning. She denied any hematemesis, melena or hematochezia. I talked to her nurse as well who also reported no evidence of gross GI bleeding or overt GI blood loss. The patient herself stated that she does not wish to undergo endoscopy unless it is absolutely necessary. She denies any abdominal pain though does state that she feels constipated and asked for a stool softener. She was placed on admission on a Protonix drip, which she remains on at this time and denies any other abdominal complaints. PAST MEDICAL HISTORY: Extensive and includes coronary artery disease, recurrent pulmonary embolism, recurrent UTI, endometrial cancer status post radiation, IBS, gastroparesis, mood disorder, chronic anemia, C. diff colitis, pulmonary fibrosis, skin cancer. PAST SURGICAL HISTORY: Includes hysterectomy, knee surgery, aortic valve replacement, CABG. ALLERGIES: INCLUDE CEFDINIR, CLONAZEPAM, LEVAQUIN, REGLAN, SULFASALAZINE. MEDICATIONS AT PRESENT: Include fentanyl patch 12 mcg transdermally every third day, Remeron 50 mg p.o. at bedtime, ranitidine 300 mg p.o. at bedtime, Feosol 325 mg p.o. b.i.d., Advair 250/50 one puff b.i.d., Toprol-XL 12.5 mg p.o. b.i.d., multivitamin 1 tablet daily, Paxil 40 mg p.o. daily, Dulcolax 10 mg per rectum daily p.r.n. constipation, Protonix 8 mg per hour drip, Zofran 4 mg IV q. 6 p.r.n. nausea, Dilaudid 0.5 mg IV q. 3 hours p.r.n. pain, Percocet 5/325 one tab p.o. q. 8 hours p.r.n. pain, Zofran 4 mg p.o. q. 6 hours p.r.n. nausea, albuterol via nebulizer 4 times daily as needed. SOCIAL HISTORY: She denies any tobacco, alcohol or illicit drug use. FAMILY HISTORY: Negative for GI malignancy or inflammatory bowel disease. REVIEW OF SYSTEMS: Negative x10 system review other than pertinent positives listed in the HPI. PHYSICAL EXAMINATION: VITAL SIGNS: Temp 36.5, pulse 70, respirations 18, blood pressure 121/75, pulse ox 94% on room air. GENERAL EXAMINATION: She is chronic ill appearing, in no acute distress. HEAD: Normocephalic, atraumatic. EYES: Pupils equally round. Extraocular muscles are intact. EARS, NOSE, THROAT: External evaluation of ears and nose are normal. CHEST: Decreased breath sounds bilateral bases. CARDIOVASCULAR SYSTEM: Regular rate and rhythm. ABDOMEN: Soft, nontender, positive bowel sounds. EXTREMITIES: No clubbing, cyanosis, or edema. LABORATORY STUDIES: Include an H&H of 9.1 and 29.0, PT 13.7, INR 1.3. BUN and creatinine of 31 and 1.45 today. The UA yesterday did show large amount of leukocyte esterase and greater than 30 white blood cells. IMPRESSION: This is an 81-year-old female with a significant past medical history who was just discharged home on 05/19/2017 secondary to partial small-bowel obstruction and hematemesis with conservative care and was discharged on hospice. She returned with melena and anemia without signs of overt GI blood loss on this hospitalization. PLAN: The patient responded adequately to a transfusion of 1 unit of packed red blood cells as she was on hospice on admission and does not wish to undergo any endoscopy at this time, I do not see any role for this at present. If she had any overt GI bleeding consideration could be given to performing an upper endoscopy, though I would recommend that she currently be continued on her Protonix drip over the next 24 hours. I will reassess her in the morning and make further recommendations at that time. Once again, thanks for allowing me to participate in the care of this patient. If you have any further questions, please do not hesitate in contacting me. Thanks.
[2017-05-23 12:16] LABS: HEMATOCRIT 27.9 % (37-47); MEAN CORPUSCULAR HGB CONC 31.2 g/dl (32-36); MEAN PLATELET VOLUME 9.3 fL (7.4-10.4); PLATELET COUNT 332 K/uL (130-400); WHITE BLOOD COUNT 12.05 K/uL (4.8-10.8)
--- NOTE | 2017-05-23 13:02 | Progress Note ---
Progress Note Date of Service May 23, 2017. Progress Note Subjective: Patient seen at the bedside. Patient s/p 1 unit of PRBC. No further episodes of hematemesis at this time during hospital stay. Patient reports generally feeling weak. GENERAL: awake and alert , no acute distress HEENT: No ptosis. Dry mucosa. NECK: Short neck, no JVD CHEST: Clear to anterior auscultation. HEART: Regular rhythm. ABDOMEN: soft, nontender EXTREMITIES: Minimal edema, no tenderness. No gross deformity. NEUROLOGIC: No gross focality bu patient reporting she is too weak to sit up for physical exam A/P: Medical history significant for history of CAD; status post CABG, recurrent pulmonary embolism, off anticoagulation, recurrent UTI, history of endometrial cancer status post surgery and radiation, IBS, gastroparesis, mood disorder, chronic anemia, baseline hemoglobin of 8, history of C. diff, history of status post TAVR, pulmonary fibrosis as per records, skin cancer as per records. History of MRSA as per records. Recent confinement from 05/07/2017 to 05/19/2017 for hematemesis UGIB, small-bowel obstruction, no operative intervention, symptoms resolved with SBL, resolved without operative intervention. GI consulted for coffee ground emesis. EGD deferred. The patient discharged home, daily Prednisone, home hospice arrangements made, anticoagulants stop outpatient due to high risk for bleeding. Since discharge from the hospital, intermittent black stools, no emesis, increasing weakness especially on exertion noted last few days. Hemoglobin noted to be 6.8. The patient sent to the Emergency Room. GI bleed: -Patient transfused 1 unit PRBC with rise in Hgb on admission from 7.1 to 9.1. Repeat lab stable with Hgb 8.7. -As per GI consult: patient does not wish to undergo any endoscopy at this time , continue Protonix IV over the next 24 hours. -will trend CBC and mainatin active type and screen Weakness -encourage patient to move from bed to chair -PT/OT -will need nurse to monitor for ulcers/wound care if remains mostly in bed to avoid pressure ulcers History of pulmonary embolism, off anticoagulation. -SCD for DVT prophylaxis -inhalers / nebs if needed for breathing, Code Status is DNR so no intubation, BIPAP if needed Coronary artery disease, status post coronary artery bypass grafting / Aortic stenosis, status post transcatheter aortic valve replacement -keep on telemetry -continue Beta hayden History of endometrial cancer status post surgery: no active issues
[2017-05-23] MEDS: OXYCODONE/ACETAMINOPHEN 5-325 TAB PO PRN (16:45)
[2017-05-23] MEDS ORDERED: FUROSEMIDE INJ 20 MG in SYRINGE 0 ML IV ONE (18:00)
[2017-05-23 18:05] LABS: HEMATOCRIT 27.6 % (37-47)
--- NOTE | 2017-05-23 18:28 | DIAGNOSTIC IMAGING REPORT ---
SINGLE VIEW CHEST CLINICAL HISTORY: Dyspnea. FINDINGS: An AP, portable, upright chest radiograph is compared to study dated 05/22/2017. Correlation is made with chest CT dated 01/10/2016. The examination is degraded by portable technique and patient rotation. The heart is mildly enlarged and there is atherosclerotic calcification of the thoracic aorta. The pulmonary vasculature is noncongested. There is a large hiatal hernia. Stent material projects over the heart. Chronic interstitial thickening is unchanged. There is left basilar atelectasis. No airspace consolidation or large pleural effusion is seen. There is no pneumothorax. Biapical scarring is observed. The skeletal structures are osteopenic. There are healed right-sided rib fractures. Degenerative change and scoliosis are noted in the thoracic spine. IMPRESSION: 1. Cardiac enlargement with no acute cardiopulmonary abnormality. 2. Large hiatal hernia with associated left basilar atelectasis. Electronically signed by: Williams Irizarry M.D. 05/23/2017 6:26 PM Dictated Date/Time: 05/23/2017 6:25 PM
[2017-05-23] MEDS ORDERED: MIRTAZAPINE TAB 15 MG TAB PO SCH (21:00)
[2017-05-23] MEDS ORDERED: RANITIDINE HCL 150 MG TAB PO SCH (21:00)
[2017-05-24] MEDS: CHECK FENTANYL PATCH PLACEMENT SCH ×2 (00:22→07:36)
[2017-05-24] MEDS: PANTOprazole INJ 40 MG in DEXTROSE 5% 100ML IV SCH ×2 (03:11→07:49)
[2017-05-24 06:47] LABS: BASO % 0.1 %; BASO ABS # 0.01 K/uL (0-0.2); EOS % 0.3 %; HEMATOCRIT 27.4 % (37-47); IG% 0.4 %; LYMPH % 16.5 %; LYMPH ABS # 1.49 K/uL (1.2-3.4); MEAN CELL VOLUME 93.2 fL (80-100); MEAN CORPUSCULAR HEMOGLOBIN 29.9 pg (25-34); MEAN CORPUSCULAR HGB CONC 32.1 g/dl (32-36); MEAN PLATELET VOLUME 9.7 fL (7.4-10.4); MONO % 10.9 %; NEUT % 71.8 %; PLATELET COUNT 300 K/uL (130-400); RED BLOOD COUNT 2.94 M/uL (4.2-5.4); WHITE BLOOD COUNT 9.01 K/uL (4.8-10.8)
[2017-05-24 07:23] LABS: BUN/CREATININE RATIO 19.9 (10-20); CALCIUM 9.2 mg/dl (8.5-10.1); CREATININE 1.29 mg/dl (0.60-1.20); POTASSIUM 4.1 mmol/L (3.5-5.1)
[2017-05-24 07:26] LABS: COMPLETE YES; POLYCHROMASIA 1+
[2017-05-24 07:46] VITALS: BP 147/73; PULSE 66; TEMP 36.4; O2SAT 98
[2017-05-24] MEDS: PAROXETINE 20 MG TAB PO SCH (07:49)
[2017-05-24] MEDS: METOPROLOL SUCC 25MG EXT REL TAB PO SCH (07:49)
[2017-05-24] MEDS: FLUTICASONE/SALMETEROL 250/50 (ADVAIR) 14 PUFF/1 INHALER INH SCH (07:49)
[2017-05-24] MEDS: MULTIVITAMIN TAB PO SCH (07:50)
[2017-05-24] MEDS: FERROUS SULFATE 325 MG TAB PO SCH (07:50)
[2017-05-24] MEDS: OXYCODONE/ACETAMINOPHEN 5-325 TAB PO PRN (07:51)
--- NOTE | 2017-05-24 10:43 | GASTROENTEROLOGY PROGRESS NOTE ---
DATE: 05/24/2017 In cross coverage for [facility]. I had the pleasure of seeing Manish Conley this morning at her bedside. She denied any abdominal pain or episodes of hematemesis, melena or hematochezia overnight. She does state that she is continuing to have difficulty with constipation despite the fact that she is on a bowel regimen that includes Dulcolax suppositories here in the hospital. She denies any abdominal pain, fevers, chills, nausea or vomiting and has no further complaints. REVIEW OF SYSTEMS: Negative x10 system review other than pertinent positives listed in the HPI. PHYSICAL EXAMINATION: VITAL SIGNS: Temp is 36.4, pulse 66, respirations 20, blood pressure 147/73, and pulse ox 98% on room air. GENERAL: She is awake, cooperative, and chronic ill appearing, in no acute distress. CHEST: Decreased breath sounds at bilateral bases. CARDIOVASCULAR SYSTEM: Regular rate and rhythm. ABDOMEN: Soft, nontender, and nondistended. Positive bowel sounds. EXTREMITIES: No clubbing or cyanosis. LABORATORY STUDIES: From today include a white blood cell count of 9.01, hemoglobin 8.8, hematocrit 27.4 and a platelet count of 300. BUN and creatinine are 26 and 1.29. IMPRESSION: This is an 81-year-old female with extensive past medical history with reported melena at home and persistent anemia. PLAN: As previously noted, the patient was on hospice on discharge from her last admission and does not wish to have any invasive testing done unless it is absolutely necessary. She has had no overt GI bleeding over the past 24 hours and I would recommend that she be continued on Protonix, though I will switch to 40 mg IV b.i.d. and I will continue her on ranitidine 300 mg p.o. at bedtime. I will defer to the [facility] GI team starting tomorrow. If you have any questions prior to this, please do not hesitate in contacting me.
[2017-05-24] MEDS ORDERED: SNK OR (12:33)
[2017-05-24] MEDS ORDERED: DOCU-94 PO (12:34)
--- NOTE | 2017-05-24 12:51 | Progress Note ---
Internal Med Progress Note Date of Service: May 24, 2017. Provider Documentation: Subjective: Patient seen sitting on the chair. No further episodes of hematemesis at this time during hospital stay. Patient reports feeling more active. GENERAL: awake and alert , no acute distress HEENT: No ptosis. Dry mucosa. NECK: Short neck, no JVD CHEST: good air entry of lung bello, no crackles, breathing on room air HEART: Regular rhythm. ABDOMEN: soft, nontender, + bowel sounds EXTREMITIES: no tenderness. No gross deformity. NEUROLOGIC: No gross focality ASSESSMENT & PLAN: Patient admitted for intermittent black stools, no emesis, increasing weakness especially on exertion noted last few days and found to be anemic with Hemoglobin noted to be 6.8. Patient transfused 1 unit PRBC with rise in Hgb on admission from 7.1 to 9.1. Repeat lab stable with Hgb 8.7 , 9, and 8.8 As per GI consultation, patient has declined invasive procures to further investigate. Patient also affirms that she does not want invasive procedures such as being scoped by GI service. Patient's hemoglobin otherwise stable since the one time blood transfusion. Dr. Ovalle consulted again on the phone and GI [facility] consultant agrees that patient hemodynamically stable for discharge. Patient to continue medications for ranitidine and pantoprazole. Senna and colace also added to medication list for constipation Weakness resolving after blood transfusion encourage patient to ambulate as tolerated Physical Therapy and Occupational Therpay were asked to evaluate the patient during the hospital stay. Patient declines going to rehab center History of pulmonary embolism, off anticoagulation a sper her outpatient doctors continue inhalers / nebs if needed for breathing Coronary artery disease, status post coronary artery bypass grafting / Aortic stenosis, status post transcatheter aortic valve replacement continue Metoprolol Succinate History of endometrial cancer status post surgery: no active issues Disposition: Discharge to home with her home hospice care Upcoming appointments: Primary Care doctor: 05/28/2017 10:45 AM Myrna Inamn MD General Internal Medicine [facility] Primary Care doctor: 06/22/2017 11:40 AM Myrna Inman MD General Internal Medicine [facility] Vital Signs: Date Time Temp Pulse Resp B/P (MAP) Pulse Ox O2 Delivery O2 Flow Rate FiO2 05/24/17 08:00 Room Air 05/24/17 07:46 36.4 66 20 147/73 (97) 98 Room Air 05/24/17 00:00 Room Air 05/23/17 23:03 36.4 64 18 120/63 (82) 94 Room Air 05/23/17 20:00 Room Air 05/23/17 19:52 36.6 66 18 124/71 (88) 95 Room Air 05/23/17 19:39 36.4 70 19 97 05/23/17 16:30 Room Air 05/23/17 15:15 36.4 70 19 143/72 (95) 97 Room Air 05/23/17 13:43 36.5 70 20 131/63 (85) 98 Room Air Lab Results: Results Past 24 Hours Test 05/23/17 18:00 05/24/17 06:07 Range/Units Hemoglobin 9.0 8.8 12.0-16.0 g/dL Hematocrit 27.6 27.4 37-47 % White Blood Count 9.01 4.8-10.8 K/uL Red Blood Count 2.94 4.2-5.4 M/uL Mean Corpuscular Volume 93.2 80-100 fL Mean Corpuscular Hemoglobin 29.9 25-34 pg Mean Corpuscular Hemoglobin Concent 32.1 32-36 g/dl Platelet Count 300 130-400 K/uL Mean Platelet Volume 9.7 7.4-10.4 fL Neutrophils (%) (Auto) 71.8 % Lymphocytes (%) (Auto) 16.5 % Monocytes (%) (Auto) 10.9 % Eosinophils (%) (Auto) 0.3 % Basophils (%) (Auto) 0.1 % Neutrophils # (Auto) 6.46 1.4-6.5 K/uL Lymphocytes # (Auto) 1.49 1.2-3.4 K/uL Monocytes # (Auto) 0.98 0.11-0.59 K/uL Eosinophils # (Auto) 0.03 0-0.5 K/uL Basophils # (Auto) 0.01 0-0.2 K/uL RDW Standard Deviation 58.2 36.4-46.3 fL RDW Coefficient of Variation 16.9 11.5-14.5 % Immature Granulocyte % (Auto) 0.4 % Immature Granulocyte # (Auto) 0.04 0.00-0.02 K/uL Polychromasia 1+ Sodium Level 137 136-145 mmol/L Potassium Level 4.1 3.5-5.1 mmol/L Chloride Level 102 98-107 mmol/L Carbon Dioxide Level 29 21-32 mmol/L Anion Gap 7.0 3-11 mmol/L Blood Urea Nitrogen 26 7-18 mg/dl Creatinine 1.29 0.60-1.20 mg/dl Est Creatinine Clear Calc Drug Dose 29.8 ml/min Estimated GFR () 44.3 Estimated GFR (Non- 38.3 BUN/Creatinine Ratio 19.9 10-20 Random Glucose 96 70-99 mg/dl Calcium Level 9.2 8.5-10.1 mg/dl Magnesium Level 2.0 1.8-2.4 mg/dl
[2017-05-24] MEDS ORDERED: RANI300C PO (12:59)
[2017-05-24] MEDS ORDERED: PRT40 PO (12:59)
--- NOTE | 2017-05-24 13:02 | Discharge Instructions ---
Discharge Instructions Date of Service May 24, 2017. Admission Reason for Admission: Gi Bleed Discharge Discharge Diagnosis / Problem: GI bleed, anemia requiring blood transfusion, constipation Discharge Goals Goal(s): Improve function Activity Recommendations Activity Limitations: per Instructions/Follow-up section Lifting Limitations: until after follow-up appointment Exercise/Sports Limitations: until after follow-up appointment . Instructions / Follow-Up Instructions / Follow-Up Patient admitted for intermittent black stools, no emesis, increasing weakness especially on exertion noted last few days and found to be anemic with Hemoglobin noted to be 6.8. Patient transfused 1 unit PRBC with rise in Hgb on admission from 7.1 to 9.1. Repeat lab stable with Hgb 8.7 , 9, and 8.8 As per GI consultation, patient has declined invasive procures to further investigate. Patient also affirms that she does not want invasive procedures such as being scoped by GI service. Patient's hemoglobin otherwise stable since the one time blood transfusion. Dr. Ovalle consulted again on the phone and GI cancer program consultant agrees that patient hemodynamically stable for discharge. Patient to continue medications for ranitidine and pantoprazole. Senna and colace also added to medication list for constipation Weakness resolving after blood transfusion encourage patient to ambulate as tolerated Physical Therapy and Occupational Therpay were asked to evaluate the patient during the hospital stay. Patient declines going to rehab center History of pulmonary embolism, off anticoagulation a sper her outpatient doctors continue inhalers / nebs if needed for breathing Coronary artery disease, status post coronary artery bypass grafting / Aortic stenosis, status post transcatheter aortic valve replacement continue Metoprolol Succinate History of endometrial cancer status post surgery: no active issues Disposition: Discharge to home with her home hospice care Upcoming appointments: Primary Care doctor: 05/28/2017 10:45 AM Myrna Inman MD General Internal Medicine [facility] Primary Care doctor: 06/22/2017 11:40 AM Myrna Inman MD General Internal Medicine [facility] Current Hospital Diet Patient's current hospital diet: heart healthy Discharge Diet Recommended Diet: AHA Diet (Heart Healthy) Pending Studies Studies pending at discharge: no Laboratory Results 05/24/17 06:07 Red Blood Count 2.94, Mean Corpuscular Volume 93.2, Mean Corpuscular Hemoglobin 29.9, Mean Corpuscular Hemoglobin Concent 32.1, Mean Platelet Volume 9.7, Neutrophils (%) (Auto) 71.8, Lymphocytes (%) (Auto) 16.5, Monocytes (%) (Auto) 10.9, Eosinophils (%) (Auto) 0.3, Basophils (%) (Auto) 0.1, Neutrophils # (Auto ) 6.46, Lymphocytes # (Auto) 1.49, Monocytes # (Auto) 0.98, Eosinophils # (Auto ) 0.03, Basophils # (Auto) 0.01 05/24/17 06:07 Test 05/22/17 19:24 05/22/17 20:30 05/23/17 11:58 05/24/17 06:07 Spherocytes 1+ Prothrombin Time 13.7 SECONDS (9.0-12.0) Prothromb Time International Ratio 1.3 (0.9-1.1) Total Bilirubin 0.1 mg/dl (0.2-1) Direct Bilirubin < 0.1 mg/dl (0-0.2) Aspartate Amino Transf (AST/SGOT) 20 U/L (15-37) Alanine Aminotransferase (ALT/SGPT) 14 U/L (12-78) Alkaline Phosphatase 85 U/L (45-117) Total Protein 6.4 gm/dl (6.4-8.2) Albumin 2.6 gm/dl (3.4-5.0) Lipase 71 U/L (73-393) Urine Color YELLOW Urine Appearance CLOUDY (CLEAR) Urine pH 6.0 (4.5-7.5) Urine Specific [place] 1.014 (1.000-1.030) Urine Protein NEG (NEG) Urine Glucose (UA) NEG (NEG) Urine Ketones NEG (NEG) Urine Occult Blood NEG (NEG) Urine Nitrite NEG (NEG) Urine Bilirubin NEG (NEG) Urine Urobilinogen NEG (NEG) Urine Leukocyte Esterase LARGE (NEG) Urine WBC (Auto) >30 /hpf (0-5) Urine RBC (Auto) 0-4 /hpf (0-4) Urine Hyaline Casts (Auto) 5-10 /lpf (0-5) Urine Epithelial Cells (Auto) 5-10 /lpf (0-5) Urine Bacteria (Auto) 2+ (NEG) Nucleated RBC Absolute Count (auto) 0.02 K/uL (0-0) Nucleated Red Blood Cells % 0.1 % White Blood Count 9.01 K/uL (4.8-10.8) Red Blood Count 2.94 M/uL (4.2-5.4) Hemoglobin 8.8 g/dL (12.0-16.0) Hematocrit 27.4 % (37-47) Mean Corpuscular Volume 93.2 fL (80-100) Mean Corpuscular Hemoglobin 29.9 pg (25-34) Mean Corpuscular Hemoglobin Concent 32.1 g/dl (32-36) Platelet Count 300 K/uL (130-400) Mean Platelet Volume 9.7 fL (7.4-10.4) Neutrophils (%) (Auto) 71.8 % Lymphocytes (%) (Auto) 16.5 % Monocytes (%) (Auto) 10.9 % Eosinophils (%) (Auto) 0.3 % Basophils (%) (Auto) 0.1 % Neutrophils # (Auto) 6.46 K/uL (1.4-6.5) Lymphocytes # (Auto) 1.49 K/uL (1.2-3.4) Monocytes # (Auto) 0.98 K/uL (0.11-0.59) Eosinophils # (Auto) 0.03 K/uL (0-0.5) Basophils # (Auto) 0.01 K/uL (0-0.2) RDW Standard Deviation 58.2 fL (36.4-46.3) RDW Coefficient of Variation 16.9 % (11.5-14.5) Immature Granulocyte % (Auto) 0.4 % Immature Granulocyte # (Auto) 0.04 K/uL (0.00-0.02) Polychromasia 1+ Anion Gap 7.0 mmol/L (3-11) Est Creatinine Clear Calc Drug Dose 29.8 ml/min Estimated GFR () 44.3 Estimated GFR (Non- 38.3 BUN/Creatinine Ratio 19.9 (10-20) Calcium Level 9.2 mg/dl (8.5-10.1) Magnesium Level 2.0 mg/dl (1.8-2.4) Date/Time Source Procedure Growth Status 05/23/17 11:05 Nasal MRSA DNA Surveillance Screen - Final Specimen Negative for MRSA by DNA Probe Complete 05/22/17 20:30 Urine , Clean Catch Urine Culture - Preliminary Enterococcus Species Resulted Medical Emergencies . Who to Call and When: Medical Emergencies: If at any time you feel your situation is an emergency, please call 911 immediately. . Non-Emergent Contact Non-Emergency issues call your: Primary Care Provider Call Non-Emergent contact if: you have any medication questions . . "Provider Documentation" section prepared by Evelio Starkey. . VTE Core Measure Inpt VTE Proph given/why not?: SCD's
--- NOTE | 2017-05-24 13:07 | Discharge Summary ---
Discharge Summary Date of Service May 24, 2017. Discharge Summary Admission Date: May 22, 2017 at 23:14 Discharge Date: May 24, 2017 Discharge Disposition: Home with services (home hospice) Principal Diagnosis: GI bleed, anemia status post blood transfusion, weakness, constipation Medication Reconciliation New Medications: Docusate Sodium (Colace) 100 Mg Cap 1 CAP PO BID for 30 Days, #60 CAP 1 Refill Ranitidine Hcl (Ranitidine Hcl) 300 Mg Cap 1 CAP PO DAILY for 30 Days, #30 CAP 1 Refill Senna (Senna Lax) 8.6 Mg Tab 1 TAB OR DAILY for 30 Days, #30 TAB 1 Refill Pantoprazole (Pantoprazole Sodium) 40 Mg Tab 40 MG PO BID for 30 Days, #60 TAB 1 Refill Continued Medications: Acetaminophen (Acetaminophen) 325 Mg Tab 650 MG PO PRN for Pain Albuterol Sulf (Proventil 0.083% 2.5MG/3ML) 2.5 Mg/3 Ml Nebu 2.5 MG INH QID PRN for SOB/Wheezing, EA Ascorbic Acid (Ascorbic Acid) 250 Mg Tab 250 MG PO DAILY Fentanyl (Fentanyl) 12 Mcg Tdsy 1 PATCH TD every 72 hours Ferrous Sulfate (Ferrous Sulfate) 325 Mg Tab 325 MG PO BID Fluticasone Prop/Salmeterol (Advair Diskus 250/50 60 Dose) 1 Ea Aerp 1 PUFF INH BID, INHALER PT ONLY USES NEEDED Furosemide (Lasix) 20 Mg Tab 20 MG PO DAILY, TAB Home O2 Therapy (Oxygen) Gas 2 LITERS NA UD 2 liters HS and PRN Lorazepam (Lorazepam) 0.5 Mg Tab 0.5 MG PO HS PRN for Insomnia Magnesium Oxide (Mag-Ox) 400 Mg Tab 400 MG PO DAILY, TAB Metoprolol Succinate (Metoprolol Succinate ER) 25 Mg Tabcr 12.5 MG PO BID Mirtazapine Soltab (Remeron Soltab) 15 Mg Soltab 15 MG PO HS, TAB Multiple Vitamin (Multivitamin) 1 Tab Tab 1 TABLET PO DAILY for 30 Days take with supper Ondansetron Hcl (Zofran) 4 Mg Tab 4 MG PO Q6 PRN for Nausea, TAB Oxycodone/Acetaminophen 5MG/325MG (Percocet 5MG/325MG) Tab 1 TABLET PO Q8H PRN for Pain, TAB Pantoprazole (Protonix) 40 Mg Tab 40 MG PO DAILY, #30 TAB Paroxetine (Paroxetine HCl) 40 Mg Tab 40 MG PO DAILY Potassium Chloride (Potassium Chloride Er) 10 Meq Cap 10 MEQ PO BID for 90 Days, #180 CAP 1 Refill Ranitidine Hcl (Ranitidine Hcl) 300 Mg Cap 1 CAP PO HS for 30 Days, CAP 3 Refills [Laxatives] () 1 DOSE PO UD Discontinued Medications: Warfarin Sod (Jantoven) 1 Mg Tab 1 MG PO 4XWK, TAB TAKES SUN, TUES, THURS, & SAT. Warfarin Sod (Jantoven) 1 Mg Tab 2 MG PO 3XWK TAKES MON, WED, & FRI. Admission Information HPI (per Admitting provider): CHIEF COMPLAINT: Weakness, anemia. HISTORY OF PRESENT ILLNESS: Medical history obtained from the patient, son, and records. Medical history significant for history of CAD status post CABG, recurrent pulmonary embolism, off anticoagulation, recurrent UTI, history of endometrial cancer status post surgery and radiation, IBS, gastroparesis, mood disorder, chronic anemia (baseline hemoglobin of 8), history of C. diff, sp TAVR, pulmonary fibrosis as per records, skin cancer as per records. Chronic pain on narcotics, History MRSA Recent confinement from 05/07/2017 to 05/19/2017 for hematemesis UGIB, small- bowel obstruction. SBO symptoms resolved without operative intervention. GI consulted for coffee ground emesis. EGD deferred. Patient discharged home, daily Prednisone fo OA stopped. Home hospice arrangements made outpatient for additional care at home. Anticoagulant stopped outpatient due to high risk for bleeding. Since discharge from the hospital, intermittent black stools, no emesis. Increasing weakness especially on exertion noted last few days. Usual abdominal bloating. Patient's son requested for blood work to be drawn. Outpatient Hemoglobin today noted to be 6.8. Patient sent to the Emergency Room. MEDICAL HISTORY: As above. An EGD done August 2015 shows tortuous esophagus, large hiatal hernia, gastritis. Colonoscopy done in May 2013 showed nonthrombosed internal hemorrhoids, colonic angioectasia, internal hemorrhoids. SURGERIES: She has had hysterectomy, knee surgery, urologic procedures, TAVR. HOME MEDICATIONS: Include Tylenol, Proventil, ferrous sulfate, Advair, Lasix, fentanyl oxygen, lorazepam, multivitamin, mag oxide, metoprolol, Remeron, Zofran, Percocet, potassium chloride, Protonix, paroxetine, ranitidine. ALLERGIES: CLONAZEPAM, REGLAN, SULFASALAZINE, CEFDINIR, LEVOFLOXACIN. FAMILY HISTORY: Hypertension. PERSONAL AND SOCIAL HISTORY: Nonsmoker. 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 REVIEW OF SYSTEMS: As per HPI. All other ROS negative. Physical Exam (per Admitting): PHYSICAL EXAMINATION: VITAL SIGNS: Blood pressure was noted to be 114/68, pulse rate 79, RR 22, temperature 36.3, sats 92% on room air. GENERAL: Noted to be comfortable, cushingoid, slightly anxious, no respiratory distress. SKIN: Pallor, warm. HEENT: Pale palpebral conjunctivae. No ptosis. Dry mucosa. NECK: Short neck, supple. CHEST: Clear to auscultation. CV: RRR. Palpable lower extremity pulses. ABDOMEN: Some distention, no tenderness. RECTAL as per ER M.D.: dark stool, heme positive. EXTREMITIES: Minimal LE edema, no tenderness. No gross deformity. NEUROLOGIC: Coherent , no gross focality. Hospital Course Patient admitted for intermittent black stools, no emesis, increasing weakness especially on exertion noted last few days and found to be anemic with Hemoglobin noted to be 6.8. Patient transfused 1 unit PRBC with rise in Hgb on admission from 7.1 to 9.1. Repeat lab stable with Hgb 8.7 , 9, and 8.8 As per GI consultation, patient has declined invasive procures to further investigate. Patient also affirms that she does not want invasive procedures such as being scoped by GI service. Patient's hemoglobin otherwise stable since the one time blood transfusion. Dr. Ovalle consulted again on the phone and GI recruiting operations consultant agrees that patient hemodynamically stable for discharge. Patient to continue medications for ranitidine and pantoprazole. Senna and colace also added to medication list for constipation Weakness resolving after blood transfusion encourage patient to ambulate as tolerated Physical Therapy and Occupational Therpay were asked to evaluate the patient during the hospital stay. Patient declines going to rehab center History of pulmonary embolism, off anticoagulation a sper her outpatient doctors continue inhalers / nebs if needed for breathing Coronary artery disease, status post coronary artery bypass grafting / Aortic stenosis, status post transcatheter aortic valve replacement continue Metoprolol Succinate History of endometrial cancer status post surgery: no active issues Disposition: Discharge to home with her home hospice care Upcoming appointments: Primary Care doctor: 05/28/2017 10:45 AM Myrna Inman MD General Internal Medicine [facility] Primary Care doctor: 06/22/2017 11:40 AM Myrna Inman MD General Internal Medicine [facility] Total time spent on discharge = 40 minutes This includes examination of the patient, discharge planning, medication reconciliation, and communication with other providers. Discharge Instructions see above
[2017-05-24 13:54] VITALS: BP 147/73; PULSE 66; TEMP 36.4; O2SAT 98
[2017-05-24] MEDS ORDERED: POLYETHYLENE (MIRALAX) 17 GM PACK PO SCH (21:00)
[2017-05-24] MEDS ORDERED: PANTOprazole SOD 40 MG TAB PO SCH (21:00)
[2017-05-26] MEDS ORDERED: FENTANYL PATCH REMOVE & WASTE SCH (08:59)
[2017-05-26] MEDS ORDERED: FENTANYL 12 MCG/HR TDSY TD SCH (09:00)
== END 2017-05-24 16:20 | disposition hospice, home (50) | DRG 378 ==
LOC: C.EDB 18:40 → C.2E 23:14 → ENRESERV 23:27 → C.MS2W 05-23 19:50
PROVIDERS: ADMIT Internal Medicine; ATTEND Hospitalist
DX: K92.1 Melena (principal); N17.9 Acute kidney failure, unspecified; I13.0 Hypertensive heart and chronic kidney disease with heart failure and stage 1 through stage 4 chronic kidney disease, or unspecified chronic kidney disease; D68.2 Hereditary deficiency of other clotting factors; D64.9 Anemia, unspecified; Z51.5 Encounter for palliative care; I35.0 Nonrheumatic aortic (valve) stenosis; I25.10 Atherosclerotic heart disease of native coronary artery without angina pectoris; N18.3 Chronic kidney disease, stage 3 (moderate); I50.9 Heart failure, unspecified; K21.9 Gastro-esophageal reflux disease without esophagitis; E78.5 Hyperlipidemia, unspecified; K31.84 Gastroparesis; Z86.711 Personal history of pulmonary embolism; Z95.1 Presence of aortocoronary bypass graft; Z85.42 Personal history of malignant neoplasm of other parts of uterus; Z92.3 Personal history of irradiation; L89.159 Pressure ulcer of sacral region, unspecified stage; Z86.14 Personal history of Methicillin resistant Staphylococcus aureus infection; K59.00 Constipation, unspecified; Z53.29 Procedure and treatment not carried out because of patient's decision for other reasons; K44.9 Diaphragmatic hernia without obstruction or gangrene

== ENCOUNTER → 2017-05-22 | Outpatient (CLI) | payer OTHER, BC ==
[~2017-05-22] MED LIST changes: -ACET-1346 PO; +ACET325T30 PO
[2017-05-22 16:00] LABS: BLOOD UREA NITROGEN 26 mg/dl (7-18); BUN/CREATININE RATIO 17.8 (10-20); CARBON DIOXIDE 27 mmol/L (21-32); CHLORIDE 97 mmol/L (98-107); CREATININE 1.48 mg/dl (0.60-1.20); GLUCOSE 132 mg/dl (70-99); POTASSIUM 4.4 mmol/L (3.5-5.1); SODIUM 133 mmol/L (136-145)
[2017-05-22 16:28] LABS: HEMATOCRIT 21.9 % (37-47); MEAN CELL VOLUME 94.8 fL (80-100); MEAN CORPUSCULAR HEMOGLOBIN 29.4 pg (25-34); MEAN CORPUSCULAR HGB CONC 31.1 g/dl (32-36); MEAN PLATELET VOLUME 9.8 fL (7.4-10.4); PLATELET COUNT 359 K/uL (130-400); RED BLOOD COUNT 2.31 M/uL (4.2-5.4); WHITE BLOOD COUNT 11.63 K/uL (4.8-10.8)
--- NOTE | 2017-06-01 07:40 | CODING QUERY NO DIAGNOSIS ---
Valid Physician Order Needed A valid physician order must be submitted in order to properly bill for the service(s) provided, including date of service(s), valid diagnosis, and physician signature. If these tests are done on a recurring basis the original physican order must be submitted in order to code and bill for the service(s) provided. Please fax us the original, signed physician order so that we may expedite billing to [phone] DOS 05/22/17 * PARTIAL RENAL PROFILE * CBC W/O DIFF Thank you Sh[facility] Information Management
== END | disposition home or self-care (01) ==
LOC: C.LABSPEC 15:23
PROVIDERS: ATTEND Internal Medicine
DX: R53.82 Chronic fatigue, unspecified (principal); I50.9 Heart failure, unspecified

== ENCOUNTER → 2017-07-01 | Outpatient (CLI) | payer OTHER, BC ==
[~2017-07-01] MED LIST changes: +ACET-1346 PO; -ACET325T30 PO; +CELE1CAP28 PO; +DOCU-94 PO; +FNTTP25 TOP; +GABA100C13 PO; +LAXATIVES PO; +LCTX PO; +MRLP17X PO; +PRT40 PO; +SENN-61 PO; +SNK OR; +TRIA1SPR4 NAE; -WARF1TAB6 PO; +WARF4TAB44 PO
[2017-07-01 17:33] LABS: BASO % 0.7 %; BASO ABS # 0.06 K/uL (0-0.2); EOS % 5.3 %; EOS ABS # 0.47 K/uL (0-0.5); HEMATOCRIT 29.9 % (37-47); HEMOGLOBIN 8.9 g/dL (12.0-16.0); IG# 0.02 K/uL (0.00-0.02); LYMPH % 19.9 %; LYMPH ABS # 1.76 K/uL (1.2-3.4); MEAN CELL VOLUME 101.4 fL (80-100); MEAN CORPUSCULAR HEMOGLOBIN 30.2 pg (25-34); MEAN CORPUSCULAR HGB CONC 29.8 g/dl (32-36); MONO ABS # 0.71 K/uL (0.11-0.59); NEUT % 65.9 %; NEUT ABS # 5.81 K/uL (1.4-6.5); PLATELET COUNT 275 K/uL (130-400); RED CELL DISTRIBUTION WIDTH CV 17.2 % (11.5-14.5); RED CELL DISTRIBUTION WIDTH SD 63.8 fL (36.4-46.3); WHITE BLOOD COUNT 8.83 K/uL (4.8-10.8)
[2017-07-01 17:51] LABS: BLOOD UREA NITROGEN 36 mg/dl (7-18); CALCIUM 10.6 mg/dl (8.5-10.1); CARBON DIOXIDE 28 mmol/L (21-32); GLUCOSE 112 mg/dl (70-99); POTASSIUM 3.6 mmol/L (3.5-5.1); SODIUM 138 mmol/L (136-145)
--- NOTE | 2017-08-10 10:49 | CODING QUERY MEDICAL NECESSITY ---
Valid Physician Order Needed A valid physician order must be submitted in order to properly bill for the service(s) provided, including date of service(s), valid diagnosis, and physician signature. If these tests are done on a recurring basis the original physican order must be submitted in order to code and bill for the service(s) provided. Please fax us the original, signed physician order so that we may expedite billing to [phone] DOS 07/01/17 * CBC W/ AUTO DIFF * PARTIAL RENAL PROFILE Thank you [employer] Management Provider Signature: Date: Thank you [employer] Once completed, please kindly fax back to [phone] For questions please call [phone]
== END | disposition home or self-care (01) ==
LOC: C.LABSPEC 09:52
PROVIDERS: ATTEND Internal Medicine
DX: Z01.89 Encounter for other specified special examinations (principal)

== ENCOUNTER → 2017-07-17 | Outpatient (CLI) | payer OTHER, BC ==
[~2017-07-17] MED LIST changes: -CELE1CAP28 PO; -FNTTP25 TOP; -GABA100C13 PO; -LCTX PO; -MRLP17X PO; -SENN-61 PO; -TRIA1SPR4 NAE; -WARF4TAB44 PO
[2017-07-17 13:34] LABS: URINE APPEARANCE CLOUDY (CLEAR); URINE BILIRUBIN NEG (NEG); URINE COLOR YELLOW; URINE EPITHELIAL CELL AUTO 0-5 /lpf (0-5); URINE NITRITE NEG (NEG); URINE PH 6.5 (4.5-7.5); URINE SPECIFIC GRAVITY 1.012 (1.000-1.030); UROBILINOGEN NEG (NEG)
[2017-07-17 13:36] LABS: MANUAL MICROSCOPIC REQUIRED? NO; REVIEW REQ? NO
== END | disposition home or self-care (01) ==
LOC: C.LABSPEC 12:50
PROVIDERS: ATTEND Internal Medicine
DX: N39.0 Urinary tract infection, site not specified (principal)

== ENCOUNTER 2017-08-22 11:37 | Inpatient (IN) | payer OTHER, BC ==
[~2017-08-22] VITALS: Ht 154.9 cm; Wt 63.7 kg
[~2017-08-22 11:37] MED LIST changes: -PRT40 PO; -RANI300C PO; +SENN-61 PO; -SNK OR
--- NOTE | 2017-08-22 12:00 | EMERGENCY ROOM VISIT NOTE ---
History Report prepared by Henrique: Chalo Garcia Under the Supervision of: Dr. Dayo Macias M.D. First contact with patient: 11:48 Chief Complaint: SHORTNESS OF BREATH Stated Complaint: PAIN IN CHEST LEFT SIDE/LEFT SIDE History of Present Illness The patient is a 82 year old female who presents to the Emergency Room for evaluation of left chest pain. Notes increasing left chest pain with shortness of breath over last 3 days. Worse with deep inspiration. notes she has had to be using 2 L NC all day rather than just at night. Has had mild runny nose and periodic cough. No rash, fevers, chills, syncope, leg swelling, nor other symptoms. Was on Coumadin for PE up until 3 mnths ago. Uses albuterol without improvement of these symptoms. Source of History: patient Onset: 3 Position: other (global) Timing: constant Associated Symptoms: + chest pain (left rib pain), + SOB Note: Patient complains of a runny nose. Review of Systems See HPI for pertinent positives & negatives. A total of 10 systems reviewed and were otherwise negative. 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 (13) Falls (14) Gastroparesis (15) GERD (gastroesophageal reflux disease) (16) Hiatal hernia (17) History of acute minda lesion (18) History of endometrial cancer (19) History of GI bleed (20) History of pulmonary embolism (21) IBS (irritable bowel syndrome) (22) Obstructive lung disease (23) Osteoporosis (24) Polyarthritis (25) Recurrent UTI (26) Temporal arteritis Surgical Problems: (1) Hx of cystoscopy (2) S/P left knee arthroscopy (3) S/P TAVR (transcatheter aortic valve replacement) (4) Status post cataract extraction (5) Status post coronary artery stent placement (6) Status post hysterectomy Family History Cancer Diabetes mellitus FH: cardiovascular disease MOTHER Gallbladder disease Hypertension Social History Smoking Status: Never Smoker Alcohol Use: none Drug Use: none Marital Status: Housing Status: lives alone Occupation Status: retired Current/Historical Medications Scheduled Ascorbic Acid (Ascorbic Acid), 250 MG PO DAILY Celecoxib (Celecoxib), 100 MG PO DAILY Docusate Sodium (Colace), 1 CAP PO BID Fentanyl (Fentanyl), 25 MCG TOP [id number] Ferrous Sulfate (Ferrous Sulfate), 325 MG PO BID Fluticasone Prop/Salmeterol (Advair Diskus 250/50 60 Dose), 1 PUFF INH BID Furosemide (Lasix), 40 MG PO DAILY Home O2 Therapy (Oxygen), 2 LITERS NA UD Magnesium Oxide (Mag-Ox), 400 MG PO DAILY Metoprolol Succinate (Metoprolol Succinate ER), 12.5 MG PO BID Mirtazapine Soltab (Remeron Soltab), 15 MG PO HS Multiple Vitamin (Multivitamin), 0.5 TABLET PO DAILY Pantoprazole (Protonix), 40 MG PO DAILY Paroxetine (Paroxetine HCl), 40 MG PO DAILY Potassium Chloride (Potassium Chloride Er), 10 MEQ PO BID Senna (Senokot), 1 TAB PO BID Scheduled PRN Acetaminophen (Acetaminophen), 650 MG PO for Pain Albuterol Sulf (Proventil 0.083% 2.5MG/3ML), 2.5 MG INH QID PRN for SOB/Wheezing Lorazepam (Lorazepam), 0.5 MG PO HS PRN for Insomnia Ondansetron Hcl (Zofran), 4 MG PO Q6 PRN for Nausea Oxycodone/Acetaminophen 5MG/325MG (Percocet 5MG/325MG), 1 TABLET PO Q8H PRN for Pain Allergies Coded Allergies: Cefdinir (Verified Allergy, Mild, RASH-HAS HAD ROCEPHIN,CEFEPIME MANY TIMES, 08/13/17) Clonazepam (Verified Allergy, Unknown, ., 08/13/17) Levofloxacin (Verified Allergy, Unknown, unknown, 08/13/17) Sulfasalazine (Verified Allergy, Unknown, ., 08/13/17) Metoclopramide (Verified Adverse Reaction, Intermediate, TREMORS, 08/13/17) Physical Exam Vital Signs Date Time Temp Pulse Resp B/P (MAP) Pulse Ox O2 Delivery O2 Flow Rate FiO2 08/22/17 16:29 82 20 118/66 94 Nasal Cannula 2.0 08/22/17 15:20 85 20 127/64 94 Nasal Cannula 2.0 08/22/17 12:57 78 19 116/62 100 Nebulizer 08/22/17 12:22 84 08/22/17 11:42 36.8 86 18 117/55 91 Room Air Physical Exam GENERAL: Patient is chronically unwell appearing and in mild distress. HEENT: No acute trauma, normocephalic atraumatic, mucous membranes moist, no nasal congestion, no scleral icterus. NECK: No stridor, no adenopathy, no meningismus, trachea is midline. LUNGS: No dyspnea. Distant tight lung sounds bilaterally. Faint wheeze, no rhonchi. HEART: Regular rate and rhythm. No murmurs, rubs, gallops appreciated. ABDOMEN: Soft, nontender, bowel sounds positive, no masses appreciated, no peritonitis. BACK: No midline tenderness, no CVA tenderness EXTREMITIES: Normal motion all extremities, no cyanosis, trace edema bilaterally lower legs. NEUROLOGIC: Alert and oriented, no acute motor or sensory deficits, no focal weakness, cranial nerves grossly intact. SKIN: No rash, no jaundice, no diaphoresis. Medical Decision & Procedures ER Provider Diagnostic Interpretation: Radiology results and stated below per my review and radiologist interpretation: SINGLE VIEW CHEST CLINICAL HISTORY: Dyspnea. FINDINGS: An AP, portable, upright chest radiograph is compared to study dated 05/23/2017. Correlation is made with chest CT dated 01/10/2016. The examination is degraded by portable technique and patient rotation. The heart is mildly enlarged and there is atherosclerotic calcification of the thoracic aorta. The pulmonary vasculature is noncongested. There is a large hiatal hernia. A stent projects over the heart. Chronic interstitial thickening is unchanged. There is bibasilar atelectasis. No airspace consolidation is seen typical for pneumonia and no large pleural effusion is identified. There is no pneumothorax. Biapical scarring is observed. The skeletal structures are osteopenic. There are healed bilateral rib fractures. Degenerative change and scoliosis are noted in the thoracic spine. IMPRESSION: 1. Cardiomegaly with no acute cardiopulmonary abnormality. 2. Large hiatal hernia and bibasilar atelectasis. Electronically signed by: Williams Irizarry M.D. 08/22/2017 12:23 PM Dictated Date/Time: 08/22/2017 12:[address] ANGIOGRAM OF THE CHEST CLINICAL HISTORY: Atypical chest pain. COMPARISON STUDY: Chest x-ray dated 08/22/2017. Chest CT scans dated 01/10/2016 and 12/30/2014. TECHNIQUE: Following the IV administration of 93 cc of Optiray 320, CT angiogram of the chest was performed from the upper abdomen to the thoracic inlet utilizing the pulmonary embolus protocol. Images are reviewed in the axial, sagittal, and coronal planes. 3-D MIPS images are created and assessed. IV contrast was administered without complication. A dose lowering technique was utilized adhering to the principles of ALARA. The examination is degraded by motion artifact, as well as by streak artifact from the left arm which could not be elevated above the chest. CT DOSE: 290.87 mGy.cm FINDINGS: Thyroid: Atrophic. Thoracic aorta: There is atherosclerotic calcification of the thoracic aorta, which is normal in caliber and demonstrates standard 3-vessel arch anatomy. No dissection is seen. Stent material seen at the aortic valve. Pulmonary vasculature: The pulmonary trunk is normal in caliber. There is no central pulmonary embolus within the main or lobar branches. There is trace pulmonary embolus within a distal segmental branch of the right lower lobe pulmonary artery seen on image #94. There is trace pulmonary embolus in a segmental branch of the right upper lobe pulmonary artery seen on image #139. Trace pulmonary embolus is present within the pulmonary branch and the lingula seen on image #150. Heart: The heart is normal in size and without pericardial effusion. There are coronary artery calcifications. Lungs and pleural spaces: Evaluation of the lung parenchyma is degraded by motion artifact. Scarring versus atelectasis is present at both lung bases. There is no airspace consolidation typical for pneumonia. No pleural effusion is identified. The trachea and central airways are clear. Mediastinum: There is no mediastinal lymphadenopathy. Shirlene: Clear. Axillae: There is no axillary lymphadenopathy. Upper abdomen: There is a large hiatal hernia. The partially imaged kidneys demonstrate cortical atrophy. Skeletal structures: The skeletal structures are osteopenic. There is advanced degenerative change and kyphoscoliosis seen within the thoracic spine. There are compression deformity of T4, T5, T6, T7, T12, and L1. These are similar to prior studies. No lytic or blastic bony lesions are seen. There are numerous healed bilateral rib fractures. Arthritic changes present in the shoulders, advanced on the left. IMPRESSION: 1. There are trace and age indeterminant pulmonary emboli seen within distal segmental/subsegmental branches of the right upper lobe, right lower lobe, and lingular pulmonary arteries. 2. Large hiatal hernia. 3. There is no airspace consolidation typical for pneumonia or pleural effusion. 4. Additional findings as above. Electronically signed by: Williams Irizarry M.D. 08/22/2017 2:05 PM Dictated Date/Time: 08/22/2017 1:56 PM Laboratory Results 08/22/17 12:40 Red Blood Count 2.98, Mean Corpuscular Volume 102.3, Mean Corpuscular Hemoglobin 30.9, Mean Corpuscular Hemoglobin Concent 30.2, Mean Platelet Volume 10.0, Neutrophils (%) (Auto) 72.9, Lymphocytes (%) (Auto) 10.8, Monocytes (%) ( Auto) 11.4, Eosinophils (%) (Auto) 4.3, Basophils (%) (Auto) 0.5, Neutrophils # (Auto) 6.45, Lymphocytes # (Auto) 0.96, Monocytes # (Auto) 1.01, Eosinophils # ( Auto) 0.38, Basophils # (Auto) 0.04 08/22/17 12:40 Test 08/22/17 12:40 08/22/17 12:55 White Blood Count 8.85 K/uL (4.8-10.8) Red Blood Count 2.98 M/uL (4.2-5.4) Hemoglobin 9.2 g/dL (12.0-16.0) Hematocrit 30.5 % (37-47) Mean Corpuscular Volume 102.3 fL (80-100) Mean Corpuscular Hemoglobin 30.9 pg (25-34) Mean Corpuscular Hemoglobin Concent 30.2 g/dl (32-36) Platelet Count 269 K/uL (130-400) Mean Platelet Volume 10.0 fL (7.4-10.4) Neutrophils (%) (Auto) 72.9 % Lymphocytes (%) (Auto) 10.8 % Monocytes (%) (Auto) 11.4 % Eosinophils (%) (Auto) 4.3 % Basophils (%) (Auto) 0.5 % Neutrophils # (Auto) 6.45 K/uL (1.4-6.5) Lymphocytes # (Auto) 0.96 K/uL (1.2-3.4) Monocytes # (Auto) 1.01 K/uL (0.11-0.59) Eosinophils # (Auto) 0.38 K/uL (0-0.5) Basophils # (Auto) 0.04 K/uL (0-0.2) RDW Standard Deviation 53.8 fL (36.4-46.3) RDW Coefficient of Variation 14.3 % (11.5-14.5) Immature Granulocyte % (Auto) 0.1 % Immature Granulocyte # (Auto) 0.01 K/uL (0.00-0.02) Prothrombin Time 10.5 SECONDS (9.0-12.0) Prothromb Time International Ratio 1.0 (0.9-1.1) Activated Partial Thromboplast Time 20.8 SECONDS (21.0-31.0) Partial Thromboplastin Ratio 0.8 Anion Gap 6.0 mmol/L (3-11) Est Creatinine Clear Calc Drug Dose 35.1 ml/min Estimated GFR () 56.5 Estimated GFR (Non- 48.7 BUN/Creatinine Ratio 19.1 (10-20) Calcium Level 10.4 mg/dl (8.5-10.1) Troponin I 0.020 ng/ml (0-0.045) Influenza Type A Antigen Neg for Influ A (NEG) Influenza Type B Antigen Neg for Influ B (NEG) Laboratory results as reviewed by me. Medications Administered Medications (Trade) Dose Ordered Sig/Rosi Route Start Time Stop Time Status Last Admin Dose Admin Albuterol/ Ipratropium (Duoneb) 3 ml NOW STAT INH 08/22/17 12:03 08/22/17 12:05 DC 08/22/17 12:48 3 ML Sodium Chloride 500 ml @ 999 mls/hr Q31M STAT IV 08/22/17 14:32 08/22/17 15:02 DC 08/22/17 14:32 999 MLS/HR Oxycodone/ Acetaminophen (Percocet 5-325mg Tab) 1 tab Q8H PRN PO 08/22/17 15:30 09/05/17 15:29 08/22/17 16:17 1 TAB Heparin Sodium/ Dextrose 1 ea Q15M N/A 08/22/17 15:33 08/22/17 17:07 DC 08/22/17 15:33 1 EA Heparin Sodium/ Dextrose (Heparin 25,000 Unit/500ml D5W) 25,000 unit STK-MED ONCE .ROUTE 08/22/17 16:19 08/22/17 16:20 DC 08/22/17 16:27 25,000 UNIT Heparin Sodium (Porcine) (Heparin Sq 5000 Unit/0.5ml) 5,000 unit STK-MED ONCE .ROUTE 08/22/17 16:19 08/22/17 16:20 DC 08/22/17 16:28 3,000 UNIT ECG Indication: other (flu like symptoms) Rate (beats per minute): 81 Rhythm: other (Sinus with PAC's) Findings: no acute ischemic change Change: EKG interpreted by me. ED Course 1148: The patient was evaluated in room B5. A complete history and physical exam was performed. 1324: I checked on the patient and is feeling better after breathing treatment. She would like a CT. 1432: I checked on the patient and he is agreeable to staying the hospital for observation. 1440: I discussed the patient's case with Dr. Engel. The patient will be evaluated for further treatment and disposition. 1450: The patient verbally expressed understanding and agreement of the treatment plan. The patient will be evaluated for further treatment. Medical Decision Differential: Infectious, Reactive Airway Disease, Pneumonia, Pneumothorax, COPD , CHF, ACS, Pulmonary Embolism, MSK, GI, Dissection, amongst other etiologies entertained. 82 yr old female arrives with complaint of pleuritic left chest pain with worsening shortness of breath and fatigue. Admits poor oral intake recently as well. Exam is dehydrated, mildly dyspneic and fatigued. CXR clear, labs unremarkable other than bumped BUN consistent with some dehydration. CT PE done given history which reveals several areas of PE. Given left pleuritic CP and left lingular PE I suspect this is cause of her symptoms and as she notes recent onset I think this is newer as she is off anticoagulation. Reviewed with her and son regarding best approach and they feel more comfortable with coming in to hospital which seems appropriate to me. Will defer anticoag to hospitalist as currently stable. Medication Reconcilliation Current Medication List: was personally reviewed by me Blood Pressure Screening Patient's blood pressure: Normal blood pressure Blood pressure disposition: Did not require urgent referral Consults Time Called: 1439 Consulting Physician: Dr. Engel Returned Call: [phone] Discussed the patient's case with Dr. Engel. The patient will be evaluated for further treatment and disposition. Impression Primary Impression: Pulmonary embolism Additional Impression: Dehydration Scribe Attestation The scribe's documentation has been prepared under my direction and personally reviewed by me in its entirety. I confirm that the note above accurately reflects all work, treatment, procedures, and medical decision making performed by me. Departure Information Referrals Mynra Inman M.D. (PCP) Patient Instructions My [facility] Problem Qualifiers
[2017-08-22] MEDS ORDERED: ALBUT/IPRATROP 3MG/0.5MG NEB 3 ML VIAL INH STA (12:03)
--- NOTE | 2017-08-22 12:24 | DIAGNOSTIC IMAGING REPORT ---
SINGLE VIEW CHEST CLINICAL HISTORY: Dyspnea. FINDINGS: An AP, portable, upright chest radiograph is compared to study dated 05/23/2017. Correlation is made with chest CT dated 01/10/2016. The examination is degraded by portable technique and patient rotation. The heart is mildly enlarged and there is atherosclerotic calcification of the thoracic aorta. The pulmonary vasculature is noncongested. There is a large hiatal hernia. A stent projects over the heart. Chronic interstitial thickening is unchanged. There is bibasilar atelectasis. No airspace consolidation is seen typical for pneumonia and no large pleural effusion is identified. There is no pneumothorax. Biapical scarring is observed. The skeletal structures are osteopenic. There are healed bilateral rib fractures. Degenerative change and scoliosis are noted in the thoracic spine. IMPRESSION: 1. Cardiomegaly with no acute cardiopulmonary abnormality. 2. Large hiatal hernia and bibasilar atelectasis. Electronically signed by: Williams Irizarry M.D. 08/22/2017 12:23 PM Dictated Date/Time: 08/22/2017 12:21 PM
[2017-08-22 13:00] LABS: BASO % 0.5 %; BASO ABS # 0.04 K/uL (0-0.2); EOS % 4.3 %; EOS ABS # 0.38 K/uL (0-0.5); HEMATOCRIT 30.5 % (37-47); HEMOGLOBIN 9.2 g/dL (12.0-16.0); IG# 0.01 K/uL (0.00-0.02); LYMPH % 10.8 %; LYMPH ABS # 0.96 K/uL (1.2-3.4); MEAN CELL VOLUME 102.3 fL (80-100); MEAN CORPUSCULAR HEMOGLOBIN 30.9 pg (25-34); MEAN CORPUSCULAR HGB CONC 30.2 g/dl (32-36); MONO % 11.4 %; MONO ABS # 1.01 K/uL (0.11-0.59); NEUT % 72.9 %; NEUT ABS # 6.45 K/uL (1.4-6.5); PLATELET COUNT 269 K/uL (130-400); RED CELL DISTRIBUTION WIDTH CV 14.3 % (11.5-14.5); RED CELL DISTRIBUTION WIDTH SD 53.8 fL (36.4-46.3); WHITE BLOOD COUNT 8.85 K/uL (4.8-10.8)
[2017-08-22] MEDS ORDERED: CELE1CAP28 PO (13:07)
[2017-08-22] MEDS ORDERED: FNTTP25 TOP (13:07)
[2017-08-22 13:16] LABS: CALCIUM 10.4 mg/dl (8.5-10.1); CREATININE 1.05 mg/dl (0.60-1.20); POTASSIUM 3.9 mmol/L (3.5-5.1)
[2017-08-22 13:30] LABS: INFLUENZA B ANTIGEN Neg for Influ B (NEG)
[2017-08-22] MEDS ORDERED: OPTIRAY 320 IV PRN (13:45)
--- NOTE | 2017-08-22 14:07 | DIAGNOSTIC IMAGING REPORT ---
CT ANGIOGRAM OF THE CHEST CLINICAL HISTORY: Atypical chest pain. COMPARISON STUDY: Chest x-ray dated 08/22/2017. Chest CT scans dated 01/10/2016 and 12/30/2014. TECHNIQUE: Following the IV administration of 93 cc of Optiray 320, CT angiogram of the chest was performed from the upper abdomen to the thoracic inlet utilizing the pulmonary embolus protocol. Images are reviewed in the axial, sagittal, and coronal planes. 3-D MIPS images are created and assessed. IV contrast was administered without complication. A dose lowering technique was utilized adhering to the principles of ALARA. The examination is degraded by motion artifact, as well as by streak artifact from the left arm which could not be elevated above the chest. CT DOSE: 290.87 mGy.cm FINDINGS: Thyroid: Atrophic. Thoracic aorta: There is atherosclerotic calcification of the thoracic aorta, which is normal in caliber and demonstrates standard 3-vessel arch anatomy. No dissection is seen. Stent material seen at the aortic valve. Pulmonary vasculature: The pulmonary trunk is normal in caliber. There is no central pulmonary embolus within the main or lobar branches. There is trace pulmonary embolus within a distal segmental branch of the right lower lobe pulmonary artery seen on image #94. There is trace pulmonary embolus in a segmental branch of the right upper lobe pulmonary artery seen on image #139. Trace pulmonary embolus is present within the pulmonary branch and the lingula seen on image #150. Heart: The heart is normal in size and without pericardial effusion. There are coronary artery calcifications. Lungs and pleural spaces: Evaluation of the lung parenchyma is degraded by motion artifact. Scarring versus atelectasis is present at both lung bases. There is no airspace consolidation typical for pneumonia. No pleural effusion is identified. The trachea and central airways are clear. Mediastinum: There is no mediastinal lymphadenopathy. Shirlene: Clear. Axillae: There is no axillary lymphadenopathy. Upper abdomen: There is a large hiatal hernia. The partially imaged kidneys demonstrate cortical atrophy. Skeletal structures: The skeletal structures are osteopenic. There is advanced degenerative change and kyphoscoliosis seen within the thoracic spine. There are compression deformity of T4, T5, T6, T7, T12, and L1. These are similar to prior studies. No lytic or blastic bony lesions are seen. There are numerous healed bilateral rib fractures. Arthritic changes present in the shoulders, advanced on the left. IMPRESSION: 1. There are trace and age indeterminant pulmonary emboli seen within distal segmental/subsegmental branches of the right upper lobe, right lower lobe, and lingular pulmonary arteries. 2. Large hiatal hernia. 3. There is no airspace consolidation typical for pneumonia or pleural effusion. 4. Additional findings as above. Electronically signed by: Williams Irizarry M.D. 08/22/2017 2:05 PM Dictated Date/Time: 08/22/2017 1:56 PM
[2017-08-22] MEDS ORDERED: SODIUM CHLORIDE 0.9% 500ML 500 ML IV STA (14:32)
[2017-08-22 14:42] LABS: PTT PATIENT 20.8 SECONDS (21.0-31.0)
[2017-08-22] MEDS ORDERED: SODIUM CHLORIDE 0.9% 1000ML 1,000 ML IV SCH (15:21)
[2017-08-22] MEDS ORDERED: ALUMINUM/MAGNESIUM/SIMETH (MAALOX MAX) 30 ML UDC PO PRN (15:30)
[2017-08-22] MEDS ORDERED: NITROGLYCERIN 0.4 MG SL PER TAB CHARGE SL PRN (15:30)
[2017-08-22] MEDS ORDERED: ALBUTEROL 0.083% NEBU SOLN 3 ML VIAL INH PRN (15:30)
[2017-08-22] MEDS ORDERED: ONDANSETRON 4 MG TAB PO PRN (15:30)
[2017-08-22] MEDS ORDERED: POLYETHYLENE (MIRALAX) 17 GM PACK PO PRN (15:30)
[2017-08-22] MEDS: OXYCODONE/ACETAMINOPHEN 5-325 TAB PO PRN (16:17)
[2017-08-22] MEDS ORDERED: HEPARIN SOD 5000 UNIT/0.5 ML CARP ONE (16:19)
[2017-08-22] MEDS ORDERED: HEPARIN 25000 UNIT/500 ML D5W ONE (16:19)
--- NOTE | 2017-08-22 16:40 | HISTORY & PHYSICAL EXAMINATION ---
DATE OF ADMISSION: 08/22/2017 CHIEF COMPLAINT: Chest pain. HISTORY OF PRESENT ILLNESS: This is an 82-year-old female with past medical history significant for CAD status post CABG, recurrent pulmonary embolism, currently off anticoagulation because of fall risk and she was on hospice ths summer( currently not on hospice), history of recurrent UTIs, history of endometrial cancer status post surgery and radiation, irritable bowel syndrome, gastroparesis, mood disorder, chronic anemia, baseline hemoglobin around 8-9, history of C. diff, history of aortic stenosis, status post TAVR, pulmonary fibrosis, skin cancer, chronic pain on narcotics, history of MRSA comes here because of chest pain and found to have PE. She also has history of chronic kidney disease stage 3.. Because of ongoing medical condition she was made hospice in the summertime but she was taken off hospice currently. She was also stopped on Coumadin because she is a fall risk and she has chronic GI bleed. She requires frequent PRBC transfusions and patient refused any endoscopies in the recent past, but as per the son the GI bleeding is going on for a long time and Coumadin was recently stopped and on Coumadin and off Coumadin her GI bleed was the same. The patient is also having left shoulder pain from rotator cuff tear. She follows with Dr. Leslie and she got shot of steroids in the recent past. It got a little better, but she is on pain medications. She has chronic lower extremity edema, takes Lasix. She presented because of complaint of chest pain today. The patient lives alone. Son stays with her most of the nights. She gets help in the morning. Son was worried because Coumadin was stopped maybe she was getting blood clots so she was brought into the ER. CAT scan showed age indeterminate pulmonary emboli. Pain is controlled with pain medication. Currently hemodynamically stable. Has on and off headaches. No dizziness. No blurred vision. No flu-like symptoms. She likes to eat soft foot but no difficulty swallowing. No shortness of breath, no cough, no fever, no chills, no nausea, no abdominal pain. Appetite is okay. Normal bowel and bladder movements. Stools are always black. PAST MEDICAL HISTORY: As mentioned above. PAST SURGICAL HISTORY: Hysterectomy, urological procedures, TAVR. ALLERGIES: KLONOPIN, REGLAN, SULFASALAZINE, CEFDINIR, LEVOFLOXACIN. FAMILY HISTORY: Hypertension. SOCIAL HISTORY: Nonsmoker. No alcohol use. 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 Currently lives alone but son sleeps most of the night and has help in the morning. REVIEW OF SYMPTOMS: As per HPI. Rest of review of symptoms negative. MEDICATIONS: Tylenol 650 mg p.o. p.r.n., celecoxib 100 mg p.o. daily, albuterol nebulization q.i.d. p.r.n., ascorbic acid 250 mg p.o. daily, Colace 100 mg p.o. b.i.d., fentanyl 25 mcg q. 72 hours, ferrous sulfate 325 mg p.o. b.i.d., Advair Diskus 250/50 one puff b.i.d., Lasix 40 mg p.o. daily, home oxygen 2 liters as needed, Ativan 0.5 mg p.o. at bedtime p.r.n., magnesium oxide 400 mg p.o. daily, Toprol-XL 12.5 mg p.o. b.i.d., Remeron SolTab 15 mg p.o. at bedtime, multivitamins half tablet p.o. daily, Zofran 4 mg p.o. q. 6 hours p.r.n., Percocet 5/325 mg 1 tablet p.o. every 8 hours p.r.n., Protonix 40 mg p.o. daily, paroxetine 40 mg p.o. daily, potassium chloride 10 mEq p.o. b.i.d., Senokot 1 tablet p.o. b.i.d. PHYSICAL EXAMINATION: GENERAL: The patient is old and frail, not in distress. VITAL SIGNS: Temperature 36.8, pulse 85, respiratory rate 20, blood pressure 127/64, oxygen 94% room air. HEAD, EYES, EARS, NOSE, AND THROAT: No pallor, no icterus. Pupils equal, round react to light. NECK: No JVD, no neck masses, no carotid bruits. CARDIOVASCULAR: S1, S2 heard, regular rate and rhythm, no murmur, no gallop. RESPIRATORY SYSTEM: Normal effort. No accessory muscle use. No wheezing, no crackles. ABDOMEN: Soft, bowel sounds present. Nontender. No distention. CENTRAL NERVOUS SYSTEM: Cranial nerves II-XII grossly intact. Nonfocal. EXTREMITIES: Bilateral pedal edema present. No erythema seen. LABORATORY DATA: WBC 8.8, hemoglobin 9.2, hematocrit 30.5, platelets 269. Sodium 137, potassium 3.9, chloride 98, bicarbonate 24, BUN 20, creatinine 1.03, serum glucose 107, calcium 10.4. Troponin I 0.02. PT 10.5, INR 1, PTT 20.8. Influenza negative. Chest x-ray large HIATAL HERNIA and bibasilar atelectasis, cardiomegaly with no acute cardiopulmonary abnormalities. CTA chest, trace and age indeterminate pulmonary embolism within the distal segmental and subsegmental branches of the right upper lobe, right lower lobe and lingular pulmonary arteries, large hiatal hernia, no airspace consolidation seen. EKG: Sinus rhythm with PVCs at a rate of 81. No acute ST changes seen. ASSESSMENT AND PLAN: This 82-year-old female presents with pulmonary embolism. 1. Pulmonary embolism. The patient has history of recurrent pulmonary embolism. Was on Coumadin. Was stopped because of fall risk and as the patient was going on hospice, no longer on hospice. Son and patient okay to go back on Coumadin. Discussed about the filter placement if she has any bleeding issues. The son said he would talk to his mother later. She has history of chronic GI bleeds, PRBC transfusions, but patient did okay on Coumadin before while she was having chronic GI bleed. We will start on low dose heparin and watch labs. IF Stable to start Coumadin tomorrow. May plan for discharge to home with home Lovenox bridge and Coumadin. If any bleeding issues arise will plan for IVC filter. Close monitor in tele floor. Pain control. 2. History of coronary artery disease status post CABG, on beta hayden. Currently stable. 3.Chronic kidney disease stage III, currently stable. Follow the labs. 4. History of Aortic stenosis, status post TAVR, 5 history of endometrial cancer status post surgery. 6. history of chronic anemia on iron tablets and Hemoccult was positive in the past, but patient refused interventions and gets prbc transfusions frequently when her hemoglobin goes below 8. We will monitor the H&H. We will monitor H&H while she is heparin. 7 History of diastolic CHF from aortic stenosis, status post TAVR. Has some lower extremity edema. Continue home Lasix on gentle fluids . We will stop tomorrow, watch for volume overload. 8. History of chronic obstructive pulmonary disease. Continue home oxygen 2 liters as directed. Continue Advair and nebs p.r.n. 9. Chronic pain with knee pains and left shoulder pain from rotator cuff tear. HAd steroid Shots in the past. Continue Percocet and Tylenol p.r.n. Hold celecoxib as patient is getting on heparin and Coumadin. Consult ortho if any concerns. 10. Mild hypercalcemia. Follow the labs. 11. History of frequent urinary tract infections, currently seems stable. We will monitor. 12. Deep venous thrombosis prophylaxis, on IV heparin. DISPOSITION: 1. Admit to tele floor. PT and OT prior to discharge. Social Service to help with discharge planning. 2. Code status. THE PATIENT WANTS TO BE FULL CODE only if there is chance of return back to her baseline. MTDD
[2017-08-22 18:34] VITALS: BP 166/78; PULSE 84; TEMP 36.9; BMI 27.5
[2017-08-22 20:32] VITALS: BP 113/58; PULSE 82; TEMP 37.1; O2SAT 98
[2017-08-22] MEDS: FLUTICASONE/SALMETEROL 250/50 (ADVAIR) 14 PUFF/1 INHALER INH SCH (21:43)
[2017-08-22] MEDS: LORAZEPAM 0.5 MG TAB PO PRN (21:43)
[2017-08-22] MEDS: FENTANYL 25 MCG/HR TDSY TD SCH (21:45)
[2017-08-22] MEDS: FENTANYL PATCH REMOVE & WASTE SCH (21:45)
[2017-08-22] MEDS: FERROUS SULFATE 325 MG TAB PO SCH (21:46)
[2017-08-22] MEDS: DOCUSATE SODIUM 100 MG CAP PO SCH (21:46)
[2017-08-22] MEDS: MIRTAZAPINE SOLTAB 15 MG PO SCH (21:47)
[2017-08-22] MEDS: POTASSIUM CHLORIDE 10 MEQ TABCR PO SCH (21:47)
[2017-08-22] MEDS: SENNA 8.6 MG TAB PO SCH (21:47)
[2017-08-22] MEDS: METOPROLOL SUCC 25MG EXT REL TAB PO SCH (21:48)
[2017-08-22 23:25] VITALS: BP 141/81; PULSE 78; TEMP 36.6; O2SAT 94
[2017-08-23] MEDS: CHECK FENTANYL PATCH PLACEMENT SCH ×3 (00:07→15:03)
[2017-08-23] MEDS: OXYCODONE/ACETAMINOPHEN 5-325 TAB PO PRN ×4 (00:10→21:25)
[2017-08-23 00:43] LABS: PTT PATIENT 49.1 SECONDS (21.0-31.0)
[2017-08-23 04:03] VITALS: BP 107/49; PULSE 67; TEMP 36.6; O2SAT 93
--- NOTE | 2017-08-23 06:36 | DIAGNOSTIC IMAGING REPORT ---
BILATERAL LOWER EXTREMITY VENOUS DOPPLER HISTORY: Pulmonary emboli with concern for possible DVT DVT COMPARISON STUDY: CTA of the chest 08/22/2017. FINDINGS: There is normal compressibility, flow, and augmentation within the bilateral lower extremity deep venous systems. The calf veins are not well-visualized. IMPRESSION: No sonographic evidence of deep venous thrombosis within the right or left lower extremity. Electronically signed by: Joshua Feng M.D. 08/23/2017 6:35 AM Dictated Date/Time: 08/23/2017 6:33 AM
[2017-08-23 07:32] LABS: BASO % 1.1 %; BASO ABS # 0.06 K/uL (0-0.2); EOS % 9.4 %; EOS ABS # 0.52 K/uL (0-0.5); HEMATOCRIT 28.1 % (37-47); HEMOGLOBIN 8.5 g/dL (12.0-16.0); IG# 0.01 K/uL (0.00-0.02); LYMPH % 25.4 %; LYMPH ABS # 1.41 K/uL (1.2-3.4); MEAN CELL VOLUME 100.4 fL (80-100); MEAN CORPUSCULAR HEMOGLOBIN 30.4 pg (25-34); MEAN CORPUSCULAR HGB CONC 30.2 g/dl (32-36); MEAN PLATELET VOLUME 9.5 fL (7.4-10.4); MONO % 16.5 %; MONO ABS # 0.92 K/uL (0.11-0.59); NEUT % 47.4 %; NEUT ABS # 2.64 K/uL (1.4-6.5); PLATELET COUNT 251 K/uL (130-400); RED CELL DISTRIBUTION WIDTH CV 14.5 % (11.5-14.5); RED CELL DISTRIBUTION WIDTH SD 53.5 fL (36.4-46.3); WHITE BLOOD COUNT 5.56 K/uL (4.8-10.8)
[2017-08-23 07:42] VITALS: BP 138/70; PULSE 82; TEMP 36.7; O2SAT 98
[2017-08-23 07:49] LABS: PTT PATIENT 52.3 SECONDS (21.0-31.0)
[2017-08-23 08:06] LABS: CALCIUM 9.7 mg/dl (8.5-10.1); CREATININE 1.12 mg/dl (0.60-1.20); POTASSIUM 3.8 mmol/L (3.5-5.1)
[2017-08-23] MEDS: METOPROLOL SUCC 25MG EXT REL TAB PO SCH ×2 (08:53→21:29)
[2017-08-23] MEDS: DOCUSATE SODIUM 100 MG CAP PO SCH ×2 (08:53→21:29)
[2017-08-23] MEDS: FERROUS SULFATE 325 MG TAB PO SCH ×2 (08:54→21:29)
[2017-08-23] MEDS: SENNA 8.6 MG TAB PO SCH ×2 (08:54→21:30)
[2017-08-23] MEDS: PANTOprazole SOD 40 MG TAB PO SCH (08:54)
[2017-08-23] MEDS: POTASSIUM CHLORIDE 10 MEQ TABCR PO SCH ×2 (08:54→21:30)
[2017-08-23] MEDS: ASCORBIC ACID 500 MG TAB PO SCH (08:55)
[2017-08-23] MEDS: FUROSEMIDE 20 MG TAB PO SCH (08:55)
[2017-08-23] MEDS: PAROXETINE 20 MG TAB PO SCH (08:56)
[2017-08-23] MEDS: MULTIVITAMIN TAB PO SCH (08:56)
[2017-08-23] MEDS: MAGNESIUM OXIDE 400 MG TAB PO SCH (08:56)
[2017-08-23] MEDS: FLUTICASONE/SALMETEROL 250/50 (ADVAIR) 14 PUFF/1 INHALER INH SCH ×2 (08:57→21:30)
--- NOTE | 2017-08-23 09:11 | Progress Note ---
Internal Med Progress Note Date of Service: Aug 23, 2017. Provider Documentation: SUBJECTIVE: Seen and examined at bedside States having left sided pleuritic chest pain Chest is tender on palpation Reports SOB on exertion Denies nausea, dizziness, abd pain Has chronic dark colored stools Prefers to be on coumadin despite risk for bleeding Refuses to get colonoscopy Also has chronic left shoulder pain OBJECTIVE: Vital Signs-as noted below Physical Exam: General Appearance:Chronic ill appearing, no apparent distress Head: normocephalic, Atraumatic Eyes: normal inspection, EOMI, PERRL Neck: supple, Trachea midline Respiratory/Chest: Decreased breath sounds, + crackles at bases Chest: Tender on left side Cardiovascular: S1, S2, No murmur Abdomen/GI:Soft, Non tender, Bowel sounds present Extremities/Musculoskelatal:normal inspection, Trace edema Neurologic/Psych:AAOX3, grossly no focal neurological deficits Skin: normal color, warm Lab data as noted below. ASSESSMENT & PLAN: Patient is an 82 yr old female who presents with left sided pleuritic chest pain and found to have age indeterminant pulmonary embolism Pulmonary embolism:Possibly Acute H/O recurrent PE and previously on Coumadin which was discontinued 2/2 fall risk /chronic GI blood loss and being on hospice but no longer on hospice currently Chronic Oxygen Dependency:2L at baseline Discussed with patient who prefers to continue Coumadin despite explaining the risks Continue IV heparin Monitor H&H Will discuss about IVC filter if bleeding issues reoccur. Patient refuses colonoscopy Hb:8.5 today To be started on 1mg coumadin Transfuse PRBCs if Hb below 8.0 Plan to discharge on home Lovenox bridge and Coumadin if Hb stable Pain control H/O CAD S/P CABG Troponin X3: Negative EKG: no acute ST changes Continue beta hayden CKD III: stable Monitor renal function H/O Aortic stenosis: S/P TAVR H/O Endometrial cancer: S/P Surgery H/O Chronic anemia: Continue Iron supplements FOBT positive in past Patient refuses Colonoscopy Monitor H&H, Transfuse PRN Chronic Diastolic CHF No signs of exacerbation Continue lasix H/O COPD Chronic Oxygen dependency: Continue home inhalers Chronic Left shoulder and Knee pain: H/O Rotator cuff tear H/O steroid Shots in the past pain control PT/OT Hold celecoxib while on blood thinners DVT Px: on IV heparin, coumadin Code Status: Full Code Disposition: PT/OT Custodial Foreman consulted for discharge planning Vital Signs: Date Time Temp Pulse Resp B/P (MAP) Pulse Ox O2 Delivery O2 Flow Rate FiO2 08/23/17 07:42 36.7 82 20 138/70 (92) 98 Room Air 08/23/17 04:03 36.6 67 17 107/49 (68) 93 Nasal Cannula 2.0 08/23/17 04:00 Nasal Cannula 2.0 08/23/17 00:02 Nasal Cannula 2.0 08/22/17 23:25 36.6 78 18 141/81 (101) 94 Room Air 08/22/17 20:32 37.1 82 18 113/58 (76) 98 Nasal Cannula 2.0 08/22/17 20:00 Nasal Cannula 2.0 08/22/17 18:34 36.9 84 16 166/78 Nasal Cannula 2.0 08/22/17 16:29 82 20 118/66 94 Nasal Cannula 2.0 08/22/17 15:20 85 20 127/64 94 Nasal Cannula 2.0 08/22/17 12:57 78 19 116/62 100 Nebulizer 08/22/17 12:22 84 08/22/17 11:42 36.8 86 18 117/55 91 Room Air Lab Results: Results Past 24 Hours Test 08/22/17 12:40 08/22/17 12:55 08/22/17 23:53 08/23/17 07:14 Range/Units White Blood Count 8.85 5.56 4.8-10.8 K/uL Red Blood Count 2.98 2.80 4.2-5.4 M/uL Hemoglobin 9.2 8.5 12.0-16.0 g/dL Hematocrit 30.5 28.1 37-47 % Mean Corpuscular Volume 102.3 100.4 80-100 fL Mean Corpuscular Hemoglobin 30.9 30.4 25-34 pg Mean Corpuscular Hemoglobin Concent 30.2 30.2 32-36 g/dl Platelet Count 269 251 130-400 K/uL Mean Platelet Volume 10.0 9.5 7.4-10.4 fL Neutrophils (%) (Auto) 72.9 47.4 % Lymphocytes (%) (Auto) 10.8 25.4 % Monocytes (%) (Auto) 11.4 16.5 % Eosinophils (%) (Auto) 4.3 9.4 % Basophils (%) (Auto) 0.5 1.1 % Neutrophils # (Auto) 6.45 2.64 1.4-6.5 K/uL Lymphocytes # (Auto) 0.96 1.41 1.2-3.4 K/uL Monocytes # (Auto) 1.01 0.92 0.11-0.59 K/uL Eosinophils # (Auto) 0.38 0.52 0-0.5 K/uL Basophils # (Auto) 0.04 0.06 0-0.2 K/uL RDW Standard Deviation 53.8 53.5 36.4-46.3 fL RDW Coefficient of Variation 14.3 14.5 11.5-14.5 % Immature Granulocyte % (Auto) 0.1 0.2 % Immature Granulocyte # (Auto) 0.01 0.01 0.00-0.02 K/uL Prothrombin Time 10.5 9.0-12.0 SECONDS Prothromb Time International Ratio 1.0 0.9-1.1 Activated Partial Thromboplast Time 20.8 49.1 52.3 21.0-31.0 SECONDS Partial Thromboplastin Ratio 0.8 1.9 2.0 Sodium Level 137 139 136-145 mmol/L Potassium Level 3.9 3.8 3.5-5.1 mmol/L Chloride Level 98 101 98-107 mmol/L Carbon Dioxide Level 34 30 21-32 mmol/L Anion Gap 6.0 8.0 3-11 mmol/L Blood Urea Nitrogen 20 24 7-18 mg/dl Creatinine 1.05 1.12 0.60-1.20 mg/dl Est Creatinine Clear Calc Drug Dose 35.1 32.2 ml/min Estimated GFR () 56.5 52.2 Estimated GFR (Non- 48.7 45.1 BUN/Creatinine Ratio 19.1 21.5 10-20 Random Glucose 107 96 70-99 mg/dl Calcium Level 10.4 9.7 8.5-10.1 mg/dl Troponin I 0.020 0.026 0.025 0-0.045 ng/ml Influenza Type A Antigen Neg for Influ A NEG Influenza Type B Antigen Neg for Influ B NEG Hypochromasia PRESENT Stomatocytes 1+ Magnesium Level 2.1 1.8-2.4 mg/dl
[2017-08-23 11:49] VITALS: BP 126/67; PULSE 88; TEMP 36.7; O2SAT 98
--- NOTE | 2017-08-23 13:10 | ECHOCARDIOGRAM REPORT ---
*NOTICE TO RECEIVING DEMOCRAT AGENCY This information is strictly Confidential and protected under [place] law. [place] law prohibits you from making any further disclosure of this information unless further disclosure is expressly permitted by the written consent of the person to whom it pertains or is authorized by law. A general authorization for the release of medical or other information is not sufficient for this purpose. Hospital accepts no responsibility if the information is made available to any other person, INCLUDING THE PATIENT. Interpretation Summary * Name: JOEL CORBIN Study Date: 08/23/2017 10:10 AM BP: 107/49 mmHg * Patient Location: C.2E\S\E211\S\1 HR: 83 * : 1935 (M/d/yyyy) Gender: Female * Age: 82 yrs Ethnicity: [place] * Ordering Physician: Joshua Engel * Referring Physician: Self, Referred * Performed By: Myrna Perdomo RDCS * * Reason For Study: Chest pain * -- Conclusions -- * Normal LV chamber size with mild concentric LVH. * Hyperdynamic LV systolic function, EF >70%. * No segmental left ventricular wall motion abnormalities are noted. * Grade I diastolic dysfunction. * S/P TAVR. The gradient is normal for this prosthetic aortic valve. * Mild mitral annular calcification. * Moderate tricuspid regurgitation. Procedure Details * A complete two-dimensional transthoracic echocardiogram was performed (2D, M-mode, Doppler and color flow Doppler). Left Ventricle * The left ventricle is normal in size. * There is mild concentric left ventricular hypertrophy. * Ejection Fraction = >70 %. * The left ventricle is hyperdynamic. * No segmental left ventricular wall motion abnormalities are noted. * The left ventricular wall motion is normal. Right Ventricle * The right ventricle is not well visualized. * The right ventricular systolic function is normal as assessed by tricuspid annular plane systolic excursion (TAPSE) (normal >1.5 cm). Atria * The left atrial size is normal. * Right atrium not well visualized. * There is no evidence of atrial septal defect, but resolution does not allow assessment for a patent foramen ovale. Mitral Valve * There is mild mitral annular calcification. * There is no mitral valve stenosis. * There is no mitral regurgitation noted. Tricuspid Valve * The tricuspid valve anatomy is normal. * There is no tricuspid stenosis. * There is moderate tricuspid regurgitation. Aortic Valve * S/P TAVR. * The gradient is normal for this prosthetic aortic valve. * Doppler evidence of regurgitation is probably normal for this prosthetic aortic valve. Pulmonic Valve * The pulmonary valve is not well seen, but the Doppler examination is normal without significant regurgitation or stenosis. Great Vessels * The aortic root and proximal ascending aorta are normal sized. Pericardium/Pleural * There is no pericardial effusion. Left Ventricular Diastolic Function * Grade I diastolic dysfunction, (abnormal relaxation pattern). MMode 2D Measurements and Calculations IVSd 1.2 cm LVIDd 3.0 cm LVIDs 1.7 cm LVPWd 1.2 cm IVS/LVPW 1.1 FS 42.8 % EDV(Teich) 35.6 ml ESV(Teich) 8.7 ml EF(Teich) 75.4 % EDV(cubed) 27.6 ml ESV(cubed) 5.2 ml EF(cubed) 81.3 % LV mass(C)d 109.7 grams LV mass(C)dI 66.6 grams/m\S\2 SV(Teich) 26.9 ml SI(Teich) 16.3 ml/m\S\2 SV(cubed) 22.4 ml SI(cubed) 13.6 ml/m\S\2 Ao root diam 1.7 cm Ao root area 2.3 cm\S\2 ACS 1.3 cm LA dimension 3.1 cm asc Aorta Diam 3.0 cm LA/Ao 1.8 LVAd ap4 15.5 cm\S\2 LVLd ap4 5.6 cm EDV(MOD-sp4) 36.5 ml EDV(sp4-el) 36.4 ml LVAs ap4 7.5 cm\S\2 LVLs ap4 4.5 cm ESV(MOD-sp4) 11.7 ml ESV(sp4-el) 10.5 ml EF(MOD-sp4) 67.8 % EF(sp4-el) 71.3 % LVAd ap2 14.0 cm\S\2 LVLd ap2 5.2 cm EDV(MOD-sp2) 30.7 ml EDV(sp2-el) 32.0 ml LVAs ap2 6.5 cm\S\2 LVLs ap2 4.5 cm ESV(MOD-sp2) 8.5 ml ESV(sp2-el) 8.1 ml EF(MOD-sp2) 72.2 % EF(sp2-el) 74.9 % LVLd %diff -7.46 % EDV(MOD-bp) 34.5 ml LVLs %diff -1.77 % ESV(MOD-bp) 10.0 ml EF(MOD-bp) 71.0 % SV(MOD-sp4) 24.7 ml SI(MOD-sp4) 15.0 ml/m\S\2 SV(MOD-sp2) 22.1 ml SI(MOD-sp2) 13.4 ml/m\S\2 SV(MOD-bp) 24.5 ml SI(MOD-bp) 14.9 ml/m\S\2 SV(sp4-el) 25.9 ml SI(sp4-el) 15.7 ml/m\S\2 SV(sp2-el) 24.0 ml SI(sp2-el) 14.6 ml/m\S\2 Doppler Measurements and Calculations MV E max winter 127.3 cm/sec MV A max winter 137.5 cm/sec MV E/A 0.93 MV dec time 0.28 sec Ao V2 max 143.8 cm/sec Ao max PG 8.3 mmHg Ao max PG (full) 0.77 mmHg LV V1 max PG 7.5 mmHg LV V1 max 137.0 cm/sec PA V2 max 82.0 cm/sec PA max PG 2.7 mmHg PA acc slope 515.3 cm/sec\S\2 PA acc time 0.13 sec PI max winter 196.7 cm/sec PI max PG 15.5 mmHg PI dec slope 284.4 cm/sec\S\2 PI P1/2t 202.6 msec TR max winter 262.4 cm/sec PA pr(Accel) 19.6 mmHg
[2017-08-23 14:42] LABS: HEMATOCRIT 28.4 % (37-47); HEMOGLOBIN 8.8 g/dL (12.0-16.0)
[2017-08-23 15:38] VITALS: BP 105/51; PULSE 85; TEMP 36.9; O2SAT 95
[2017-08-23] MEDS ORDERED: WARFARIN SOD 1 MG TAB PO SCH (16:00)
[2017-08-23 20:04] VITALS: BP 122/58; PULSE 84; TEMP 36.9; O2SAT 98
--- NOTE | 2017-08-23 20:34 | DIAGNOSTIC IMAGING REPORT ---
L SHOULDER MIN 2 VIEWS ROUTINE HISTORY: 82 years-old Female Shoulder pain , r/o fracture acute left-sided shoulder pain with concern for fracture COMPARISON: CTA of the chest 08/22/2017 TECHNIQUE: 4 views of the left shoulder FINDINGS: The bones appear mildly demineralized. Ill-defined calcifications are seen superior to the left humeral head suggesting chondrocalcinosis or calcific bursitis. Severe glenohumeral and moderate acromioclavicular degenerative changes with prominent subcortical cystic changes of the humeral head. There is no acute fracture or subluxation identified. Remote appearing fractures of the posterior lateral left fifth and sixth ribs. Endograft of the aortic valve. IMPRESSION: 1. Severe glenohumeral and moderate AC joint degenerative changes without acute fracture or subluxation. 2. Chondrocalcinosis or calcified bursitis about the left glenohumeral joint. 3. Osteopenic appearance of the bones. The above report was generated using voice recognition software. It may contain grammatical, syntax or spelling errors. Electronically signed by: Joshua Feng M.D. 08/23/2017 8:33 PM Dictated Date/Time: 08/23/2017 8:29 PM
[2017-08-23] MEDS: LORAZEPAM 0.5 MG TAB PO PRN (21:24)
[2017-08-23] MEDS: MIRTAZAPINE SOLTAB 15 MG PO SCH (21:30)
[2017-08-23 22:21] LABS: HEMATOCRIT 30.7 % (37-47); HEMOGLOBIN 9.4 g/dL (12.0-16.0)
[2017-08-24] VITALS (8 sets, daily range): BP systolic 101–162; BP diastolic 49–77; PULSE 80–95; TEMP 37–37.8; O2SAT 95–98
[2017-08-24 07:07] LABS: BASO % 0.8 %; BASO ABS # 0.06 K/uL (0-0.2); EOS % 7.7 %; HEMATOCRIT 30.2 % (37-47); HEMOGLOBIN 9.7 g/dL (12.0-16.0); IG# 0.01 K/uL (0.00-0.02); LYMPH % 25.5 %; MEAN CORPUSCULAR HEMOGLOBIN 32.1 pg (25-34); MEAN CORPUSCULAR HGB CONC 32.1 g/dl (32-36); MEAN PLATELET VOLUME 10.4 fL (7.4-10.4); MONO % 19.5 %; MONO ABS # 1.53 K/uL (0.11-0.59); NEUT % 46.4 %; NEUT ABS # 3.64 K/uL (1.4-6.5); PLATELET COUNT 296 K/uL (130-400); RED CELL DISTRIBUTION WIDTH CV 14.6 % (11.5-14.5); RED CELL DISTRIBUTION WIDTH SD 53.5 fL (36.4-46.3); WHITE BLOOD COUNT 7.84 K/uL (4.8-10.8)
[2017-08-24] MEDS: ONDANSETRON INJ 2 MG/ML 2 ML VIAL IV PRN (07:08)
--- NOTE | 2017-08-24 07:16 | DIAGNOSTIC IMAGING REPORT ---
CHEST ONE VIEW PORTABLE CLINICAL HISTORY: wheeze,sob COMPARISON STUDY: Chest radiograph and chest CT August 22, 2017. FINDINGS: Note is made of a prosthetic aortic valve and large hiatal hernia. Cardiomediastinal silhouette is stable allowing for patient rotation. There is no evidence for pulmonary edema. Old right-sided rib fractures are noted. There is no consolidation to suggest pneumonia. IMPRESSION: No significant change in appearance of the chest. Electronically signed by: Pierce Abraham M.D. 08/24/2017 7:14 AM Dictated Date/Time: 08/24/2017 7:11 AM
[2017-08-24 07:37] LABS: CREATININE 1.43 mg/dl (0.60-1.20); POTASSIUM 3.7 mmol/L (3.5-5.1)
[2017-08-24] MEDS: FLUTICASONE/SALMETEROL 250/50 (ADVAIR) 14 PUFF/1 INHALER INH SCH ×2 (07:42→21:17)
[2017-08-24] MEDS: DOCUSATE SODIUM 100 MG CAP PO SCH ×2 (07:42→21:17)
[2017-08-24] MEDS: FERROUS SULFATE 325 MG TAB PO SCH ×2 (07:42→21:18)
[2017-08-24] MEDS: POTASSIUM CHLORIDE 10 MEQ TABCR PO SCH ×2 (07:42→21:18)
[2017-08-24] MEDS: FUROSEMIDE 20 MG TAB PO SCH (07:42)
[2017-08-24] MEDS: METOPROLOL SUCC 25MG EXT REL TAB PO SCH ×2 (07:43→21:17)
[2017-08-24] MEDS: PANTOprazole SOD 40 MG TAB PO SCH (07:43)
[2017-08-24] MEDS: PAROXETINE 20 MG TAB PO SCH (07:43)
[2017-08-24] MEDS: ASCORBIC ACID 500 MG TAB PO SCH (07:43)
[2017-08-24] MEDS: MAGNESIUM OXIDE 400 MG TAB PO SCH (07:43)
[2017-08-24] MEDS: SENNA 8.6 MG TAB PO SCH ×2 (07:43→21:17)
[2017-08-24] MEDS: MULTIVITAMIN TAB PO SCH (07:43)
[2017-08-24] MEDS: OXYCODONE/ACETAMINOPHEN 5-325 TAB PO PRN ×2 (07:49→16:51)
[2017-08-24 07:50] LABS: PTT PATIENT 44.4 SECONDS (21.0-31.0)
[2017-08-24] MEDS: CHECK FENTANYL PATCH PLACEMENT SCH ×3 (08:00→16:00)
--- NOTE | 2017-08-24 08:34 | Clinical Documentation Query ---
Dr. HOOKER [facility] : CLINICAL DOCUMENTATION QUERY Patient is an 82 yr old female who presents with left sided pleuritic chest pain and found to have age indeterminate pulmonary embolism. Documentation includes "Chronic Oxygen Dependency:2L at baseline". As appropriate, consider capture of this clinical documentation as suggested below. Thank you. In your clinical opinion is this patient being managed for: ( X ) Chronic respiratory failure with hypoxia ( ) Not Agree ( ) Other explanation of clinical findings (Please Explain) ( ) Unable to determine (Please Define) ( ) Need to Discuss The medical record reflects the following clinical findings, treatment, and risk factors. Clinical Indicators: As above Treatment: Continuous provision of supplemental O2 Risk Factors: COPD, chronic diastolic CHF, recurrent PE Please clarify and document your clinical opinion in the progress notes and discharge summary. Terms such as "probable", "suspected", "likely", "questionable", "possible", or "still to be ruled out" are acceptable. IF IN AGREEMENT, YOU MUST DOCUMENT ABOVE DIAGNOSTIC STATEMENT IN DAILY PROGRESS NOTES AND DISCHARGE SUMMARY. This document is not part of the patient's record. Thank You, Adam Chow, RN [phone]
[2017-08-24] MEDS ORDERED: SODIUM CHLORIDE 0.9% 1000ML 500 ML IV ONE (08:45)
--- NOTE | 2017-08-24 08:58 | Progress Note ---
Internal Med Progress Note Date of Service: Aug 24, 2017. Provider Documentation: SUBJECTIVE: Seen and examined at bedside States not feeling well today Feels feverish and has chills Left sided pleuritic chest pain is better chronic SOB on exertion Denies nausea, dizziness, abd pain, dysuria Has chronic dark colored stools, on Iron supplements No active bleeding issues Chronic left shoulder pain, x ray showed no fractures OBJECTIVE: Vital Signs-as noted below Physical Exam: General Appearance:Chronic ill appearing, no apparent distress Head: normocephalic, Atraumatic Eyes: normal inspection, EOMI, PERRL Neck: supple, Trachea midline Respiratory/Chest: Decreased breath sounds, + crackles at bases Chest: Tender on left side Cardiovascular: S1, S2, No murmur Abdomen/GI:Soft, Non tender, Bowel sounds present Extremities/Musculoskelatal:normal inspection, Trace edema Neurologic/Psych:AAOX3, grossly no focal neurological deficits Skin: normal color, warm Lab data as noted below. ASSESSMENT & PLAN: Patient is an 82 yr old female who presents with left sided pleuritic chest pain and found to have age indeterminant pulmonary embolism Pulmonary embolism:Possibly Acute H/O recurrent PE and previously on Coumadin which was discontinued 2/2 fall risk /chronic GI blood loss and being on hospice but no longer on hospice currently Chronic respiratory failure: Oxygen Dependency:2L at baseline QHS and PRN Discussed with patient who prefers to continue Coumadin despite explaining the risks Continue IV heparin while in hospital Monitor H&H Will discuss about IVC filter if bleeding issues reoccur. Patient refuses colonoscopy Hb:9.7 today Continue coumadin 2mg today (Started on low dose as high risk for bleeding) Transfuse PRBCs if Hb below 8.0 Plan to discharge on home Lovenox bridge and Coumadin if Hb stable Pain control UTI: Start on Cefepime Day # 1 Urine culture: pending Resistant to ceftriaxone on prior cultures Left shoulde Pain: X ray: Severe glenohumeral and moderate AC joint degenerative changes without acute fracture or subluxation. Chondrocalcinosis or calcified bursitis about the left glenohumeral joint. PT/OT Pain control H/O CAD S/P CABG Troponin X3: Negative EKG: no acute ST changes ECHO:No segmental left ventricular wall motion abnormalities Continue beta hayden CKD III: Cr baseline around 1.3 - 1.4 stable Monitor renal function H/O Aortic stenosis: S/P TAVR H/O Endometrial cancer: S/P Surgery H/O Chronic anemia: Continue Iron supplements FOBT positive in past Patient refuses Colonoscopy Monitor H&H, Transfuse PRN Chronic Diastolic CHF No signs of exacerbation Continue lasix H/O COPD Chronic Oxygen dependency: Continue home inhalers Chronic Left shoulder and Knee pain: H/O Rotator cuff tear H/O steroid Shots in the past pain control PT/OT Hold celecoxib while on blood thinners DVT Px: on IV heparin, coumadin Code Status: Full Code Disposition: Patient refuses Rehab/SNF placement PT/OT Personal Banking Officer consulted for discharge planning Vital Signs: Date Time Temp Pulse Resp B/P (MAP) Pulse Ox O2 Delivery O2 Flow Rate FiO2 08/24/17 16:26 Nasal Cannula 2.0 08/24/17 15:10 37.3 90 21 148/72 (97) 98 Nasal Cannula 2.5 08/24/17 12:50 37.0 87 24 110/49 (69) 98 Nasal Cannula 2.0 08/24/17 12:22 Nasal Cannula 2.0 08/24/17 08:42 37.6 91 24 162/77 (105) 95 Nasal Cannula 3.0 08/24/17 08:01 Nasal Cannula 2.0 08/24/17 04:27 81 16 95 Nasal Cannula 2.0 08/24/17 04:00 Nasal Cannula 2.0 08/24/17 00:02 37.0 80 20 120/58 (78) 95 Nasal Cannula 2.0 08/24/17 00:02 Nasal Cannula 2.0 08/23/17 20:04 36.9 84 18 122/58 (79) 98 Nasal Cannula 2.0 08/23/17 20:00 Nasal Cannula 2.0 Lab Results: Results Past 24 Hours Test 08/23/17 22:05 08/24/17 06:18 08/24/17 10:30 08/24/17 16:07 Range/Units Hemoglobin 9.4 9.7 9.1 12.0-16.0 g/dL Hematocrit 30.7 30.2 29.0 37-47 % White Blood Count 7.84 4.8-10.8 K/uL Red Blood Count 3.02 4.2-5.4 M/uL Mean Corpuscular Volume 100.0 80-100 fL Mean Corpuscular Hemoglobin 32.1 25-34 pg Mean Corpuscular Hemoglobin Concent 32.1 32-36 g/dl Platelet Count 296 130-400 K/uL Mean Platelet Volume 10.4 7.4-10.4 fL Neutrophils (%) (Auto) 46.4 % Lymphocytes (%) (Auto) 25.5 % Monocytes (%) (Auto) 19.5 % Eosinophils (%) (Auto) 7.7 % Basophils (%) (Auto) 0.8 % Neutrophils # (Auto) 3.64 1.4-6.5 K/uL Lymphocytes # (Auto) 2.00 1.2-3.4 K/uL Monocytes # (Auto) 1.53 0.11-0.59 K/uL Eosinophils # (Auto) 0.60 0-0.5 K/uL Basophils # (Auto) 0.06 0-0.2 K/uL RDW Standard Deviation 53.5 36.4-46.3 fL RDW Coefficient of Variation 14.6 11.5-14.5 % Immature Granulocyte % (Auto) 0.1 % Immature Granulocyte # (Auto) 0.01 0.00-0.02 K/uL Prothrombin Time 10.5 9.0-12.0 SECONDS Prothromb Time International Ratio 1.0 0.9-1.1 Activated Partial Thromboplast Time 44.4 62.3 21.0-31.0 SECONDS Partial Thromboplastin Ratio 1.7 2.4 Sodium Level 137 136-145 mmol/L Potassium Level 3.7 3.5-5.1 mmol/L Chloride Level 100 98-107 mmol/L Carbon Dioxide Level 31 21-32 mmol/L Anion Gap 6.0 3-11 mmol/L Blood Urea Nitrogen 23 7-18 mg/dl Creatinine 1.43 0.60-1.20 mg/dl Est Creatinine Clear Calc Drug Dose 25.3 ml/min Estimated GFR () 38.9 Estimated GFR (Non- 33.5 BUN/Creatinine Ratio 16.0 10-20 Random Glucose 95 70-99 mg/dl Calcium Level 10.0 8.5-10.1 mg/dl Magnesium Level 1.8 1.8-2.4 mg/dl Urine Color YELLOW Urine Appearance CLOUDY CLEAR Urine pH 7.0 4.5-7.5 Urine Specific [place] 1.015 1.000-1.030 Urine Protein NEG NEG Urine Glucose (UA) NEG NEG Urine Ketones NEG NEG Urine Occult Blood TRACE NEG Urine Nitrite NEG NEG Urine Bilirubin NEG NEG Urine Urobilinogen NEG NEG Urine Leukocyte Esterase LARGE NEG Urine WBC (Auto) >30 0-5 /hpf Urine RBC (Auto) 0-4 0-4 /hpf Urine Hyaline Casts (Auto) 1-5 0-5 /lpf Urine Epithelial Cells (Auto) 5-10 0-5 /lpf Urine Bacteria (Auto) 1+ NEG Urine Pathogenic Casts 0 /lpf Microbiology Results 08/24/17 Urine Culture, Received Pending
[2017-08-24] MEDS ORDERED: HEPARIN IV BOLUS 2,000 UNIT in SYRINGE 0 ML IV ONE (09:30)
[2017-08-24] MEDS: HEPARIN 25,000 UNIT/500ML D5W 500 ML IV PRN (09:52)
[2017-08-24] MEDS ORDERED: PROMETHAZINE HCL INJ 12.5 MG in SODIUM CHLORIDE 0.9% 50ML 50 ML IV ONE (11:30)
[2017-08-24 16:41] LABS: PTT PATIENT 62.3 SECONDS (21.0-31.0)
[2017-08-24 16:50] LABS: HEMOGLOBIN 9.1 g/dL (12.0-16.0)
[2017-08-24] MEDS: WARFARIN SOD 2 MG TAB PO SCH (16:50)
[2017-08-24] MEDS ORDERED: CEFEPIME CONSULT ACTIVE PRN (18:15)
[2017-08-24] MEDS ORDERED: CEFEPIME IV 500 MG in SYRINGE 0 ML IV SCH (18:30)
[2017-08-24] MEDS: ACETAMINOPHEN 325 MG TAB PO PRN (18:51)
[2017-08-24] MEDS: MIRTAZAPINE SOLTAB 15 MG PO SCH (21:21)
[2017-08-25] VITALS (12 sets, daily range): BP systolic 82–147; BP diastolic 34–66; PULSE 75–89; TEMP 36.8–37.6; O2SAT 95–98; Ht 154.9 cm; Wt 63.7 kg
[2017-08-25] MEDS: CHECK FENTANYL PATCH PLACEMENT SCH ×3 (00:02→16:00)
[2017-08-25] MEDS: OXYCODONE/ACETAMINOPHEN 5-325 TAB PO PRN ×3 (00:05→17:37)
[2017-08-25 07:27] LABS: BASO % 1.2 %; BASO ABS # 0.08 K/uL (0-0.2); EOS % 9.5 %; EOS ABS # 0.64 K/uL (0-0.5); HEMATOCRIT 26.3 % (37-47); HEMOGLOBIN 8.1 g/dL (12.0-16.0); LYMPH % 23.7 %; LYMPH ABS # 1.59 K/uL (1.2-3.4); MEAN CORPUSCULAR HEMOGLOBIN 30.8 pg (25-34); MEAN CORPUSCULAR HGB CONC 30.8 g/dl (32-36); MEAN PLATELET VOLUME 9.9 fL (7.4-10.4); MONO % 18.6 %; MONO ABS # 1.25 K/uL (0.11-0.59); NEUT ABS # 3.16 K/uL (1.4-6.5); PLATELET COUNT 269 K/uL (130-400); RED CELL DISTRIBUTION WIDTH CV 14.7 % (11.5-14.5); RED CELL DISTRIBUTION WIDTH SD 52.3 fL (36.4-46.3); WHITE BLOOD COUNT 6.72 K/uL (4.8-10.8)
[2017-08-25 07:41] LABS: INR 1.1 (0.9-1.1)
[2017-08-25 07:44] LABS: PTT PATIENT 59.2 SECONDS (21.0-31.0)
[2017-08-25 08:01] LABS: CALCIUM 10.1 mg/dl (8.5-10.1); CREATININE 1.43 mg/dl (0.60-1.20)
[2017-08-25] MEDS: DOCUSATE SODIUM 100 MG CAP PO SCH ×2 (08:01→21:20)
[2017-08-25] MEDS: FLUTICASONE/SALMETEROL 250/50 (ADVAIR) 14 PUFF/1 INHALER INH SCH ×2 (08:01→21:17)
[2017-08-25] MEDS: POTASSIUM CHLORIDE 10 MEQ TABCR PO SCH ×2 (08:01→21:20)
[2017-08-25] MEDS: FERROUS SULFATE 325 MG TAB PO SCH ×2 (08:01→21:20)
[2017-08-25] MEDS: SENNA 8.6 MG TAB PO SCH ×2 (08:02→21:19)
[2017-08-25] MEDS: ASCORBIC ACID 500 MG TAB PO SCH (08:02)
[2017-08-25] MEDS: METOPROLOL SUCC 25MG EXT REL TAB PO SCH ×2 (08:02→21:19)
[2017-08-25] MEDS: MULTIVITAMIN TAB PO SCH (08:02)
[2017-08-25] MEDS: MAGNESIUM OXIDE 400 MG TAB PO SCH (08:02)
[2017-08-25] MEDS: PAROXETINE 20 MG TAB PO SCH (08:02)
[2017-08-25] MEDS: FUROSEMIDE 20 MG TAB PO SCH (08:02)
[2017-08-25] MEDS: PANTOprazole SOD 40 MG TAB PO SCH (08:05)
--- NOTE | 2017-08-25 09:40 | Progress Note ---
Medicine Progress Note Date & Time of Visit: Aug 25, 2017 at 09:40. Subjective Patient reports feeling congested and having a sinus headache. No overnight events noted. Tolerating PO without difficulty. Feels weak and tired and feels she is unable to get around as well as she was before admission. Feels pain in her back from laying around. Discussed the drop in Hb with the patient and she would like to continue anticoagulation and will accept blood transfusion if needed. Objective Last 8 Hrs Date Time Temp Pulse Resp B/P (MAP) Pulse Ox O2 Delivery O2 Flow Rate FiO2 08/25/17 09:25 Nasal Cannula 2.0 08/25/17 07:41 37.0 80 18 109/65 (80) 96 08/25/17 04:20 36.8 88 18 120/58 (78) 98 Nasal Cannula 2.0 08/25/17 04:00 98 Nasal Cannula 2.0 Physical Exam: GENERAL: Patient is in no acute distress. HEENT: No acute trauma, normocephalic, mucous membranes moist, no nasal congestion, no scleral icterus, conjunctivae clear. Oral mucosa appears dry NECK: No stridor, trachea is midline. LUNGS: Clear to auscultation bilaterally, no wheeze, no rhonchi, breath sounds equal. HEART: Without murmurs gallops or rubs, regular rate and rhythm. ABDOMEN: Soft, nontender, bowel sounds positive, no hepatosplenomegaly EXTREMITIES: No cyanosis or edema, pain in left shoulder and knee; general weakness NEUROLOGIC: Oriented x 3, no acute motor or sensory deficits, no focal weakness. SKIN: No rash, no jaundice, no diaphoresis. Laboratory Results: Last 24 Hours Test 08/24/17 10:30 08/24/17 16:07 08/25/17 07:06 Urine Color YELLOW Urine Appearance CLOUDY Urine pH 7.0 Urine Specific [place] 1.015 Urine Protein NEG Urine Glucose (UA) NEG Urine Ketones NEG Urine Occult Blood TRACE Urine Nitrite NEG Urine Bilirubin NEG Urine Urobilinogen NEG Urine Leukocyte Esterase LARGE Urine WBC (Auto) >30 /hpf Urine RBC (Auto) 0-4 /hpf Urine Hyaline Casts (Auto) 1-5 /lpf Urine Epithelial Cells (Auto) 5-10 /lpf Urine Bacteria (Auto) 1+ Urine Pathogenic Casts /lpf Hemoglobin 9.1 g/dL 8.1 g/dL Hematocrit 29.0 % 26.3 % Activated Partial Thromboplast Time 62.3 SECONDS 59.2 SECONDS Partial Thromboplastin Ratio 2.4 2.3 White Blood Count 6.72 K/uL Red Blood Count 2.63 M/uL Mean Corpuscular Volume 100.0 fL Mean Corpuscular Hemoglobin 30.8 pg Mean Corpuscular Hemoglobin Concent 30.8 g/dl Platelet Count 269 K/uL Mean Platelet Volume 9.9 fL Neutrophils (%) (Auto) 47.0 % Lymphocytes (%) (Auto) 23.7 % Monocytes (%) (Auto) 18.6 % Eosinophils (%) (Auto) 9.5 % Basophils (%) (Auto) 1.2 % Neutrophils # (Auto) 3.16 K/uL Lymphocytes # (Auto) 1.59 K/uL Monocytes # (Auto) 1.25 K/uL Eosinophils # (Auto) 0.64 K/uL Basophils # (Auto) 0.08 K/uL RDW Standard Deviation 52.3 fL RDW Coefficient of Variation 14.7 % Immature Granulocyte % (Auto) 0.0 % Immature Granulocyte # (Auto) 0.00 K/uL Red Blood Cell Morphology Unremarkable Prothrombin Time 11.6 SECONDS Prothromb Time International Ratio 1.1 Sodium Level 137 mmol/L Potassium Level 4.0 mmol/L Chloride Level 101 mmol/L Carbon Dioxide Level 28 mmol/L Anion Gap 7.0 mmol/L Blood Urea Nitrogen 23 mg/dl Creatinine 1.43 mg/dl Est Creatinine Clear Calc Drug Dose 25.3 ml/min Estimated GFR () 38.9 Estimated GFR (Non- 33.5 BUN/Creatinine Ratio 15.7 Random Glucose 93 mg/dl Calcium Level 10.1 mg/dl Magnesium Level 1.9 mg/dl Date/Time Source Procedure Growth Status 08/24/17 10:30 Urine , Clean Catch Urine Culture - Preliminary Enterococcus Species Resulted Assessment & Plan AGE INDETERMINATE PE: -possibly Acute -known hx of recurrent PE and previously has been on Coumadin which was last stopped in the summer of 2016 due to fall risk/chronic GI blood loss and being on hospice but no longer on hospice as per patient -chronic respiratory failure: Oxygen Dependency on 2L at baseline which is what she has been requiring here as well -previous attending discussed with the patient regarding anticoagulation in light of above and she and her son would prefer to continue Coumadin despite explaining the risks -continue IV heparin while in hospital -monitor H&H -patient's son to discuss about IVC filter with patient and family as an option if bleeding issues recur. -patient has refused endoscopy/colonoscopy -Hb: 8.1 today from 9's -on coumadin 2mg + IV heparin -transfuse PRBCs if Hb below 8.0 -plan to discharge to home with Lovenox bridge and Coumadin if Hb stable -Pain control UTI: -on Cefepime Day # 2 -Urine culture: pending -resistant to ceftriaxone on prior cultures LEFT SHOULDER PAIN: -X ray: Severe glenohumeral and moderate AC joint degenerative changes without acute fracture or subluxation. Chondrocalcinosis or calcified bursitis about the left glenohumeral joint. -PT/OT -pain control -patient also reports history of rotator cuff tear in the past CAD: -S/P prior CABG -Troponin X3: Negative -EKG: no acute ST changes -TTE: No segmental left ventricular wall motion abnormalities -continue current meds CKD STAGE III: -baseline Cr 1.3 - 1.4 -stable -monitor -avoid nephrotoxins when possible PRIOR AORTIC STENOSIS: -S/P TAVR -no acute issues PRIOR ENDOMETRIAL CA: -has been greater than 20 years ago and no longer followed -no related symptoms noted CHRONIC ANEMIA: -continue Iron supplements -likely a combination of anemia of CKD with anemia of blood loss and iron deficiency based on prior labs/hx -Patient refuses endoscopy despite having prior FOBT + -monitor H&H, transfuse as needed CHRONIC DIASTOLIC CHF: -not in exacerbation -continue lasix/current meds COPD: -Chronic Oxygen dependent -continue home inhalers -not in exacerbation CHRONIC MUSCULOSKELETAL PAIN -shoulder and knee pain -H/O Rotator cuff tear -H/O steroid Shots in the past -pain control -PT/OT -celecoxib held while on blood thinners Current Inpatient Medications: Current Inpatient Medications Medications (Trade) Dose Ordered Sig/Rosi Route Start Time Stop Time Status Last Admin Dose Admin Ioversol (Optiray 320) 100 ml UD PRN IV 08/22/17 13:45 08/26/17 13:44 Acetaminophen (Tylenol Tab) 650 mg Q4H PRN PO 08/22/17 15:30 09/21/17 15:29 1/22/18 18:51 650 MG Al Hydrox/Mg Hydrox/Simethicone (Maalox Max Susp) 15 ml Q4H PRN PO 08/22/17 15:30 09/21/17 15:29 Ondansetron HCl (Zofran Inj) 4 mg Q6H PRN IV 08/22/17 15:30 09/21/17 15:29 08/24/17 07:08 4 MG Nitroglycerin (Nitrostat Tab) 0.4 mg UD PRN SL 08/22/17 15:30 09/21/17 15:29 Polyethylene (Miralax Powder Packet) 17 gm DAILY PRN PO 08/22/17 15:30 09/21/17 15:29 Albuterol Sulfate (Ventolin 0.083% 2.5MG/3ML Neb) 2.5 mg QID PRN INH 08/22/17 15:30 09/21/17 15:29 08/24/17 04:26 2.5 MG Docusate Sodium (coLACE CAP) 100 mg BID PO 08/22/17 21:00 09/21/17 20:59 08/25/17 08:01 100 MG Fentanyl (Duragesic Patch) 25 mcg Q3D@2000 TD 08/22/17 20:00 09/05/17 19:59 08/22/17 21:45 25 MCG Ferrous Sulfate (Feosol Tab) 325 mg BID PO 08/22/17 21:00 09/21/17 20:59 08/25/17 08:01 325 MG Salmeterol Xinafoate/ Fluticasone (Advair Diskus 250/50 Inh) 1 puff BID INH 08/22/17 21:00 09/21/17 20:59 08/25/17 08:01 1 PUFF Furosemide (Lasix Tab) 40 mg DAILY PO 08/23/17 09:00 09/22/17 08:59 08/25/17 08:02 40 MG Lorazepam (Ativan Tab) 0.5 mg HS PRN PO 08/22/17 15:30 09/21/17 15:29 08/23/17 21:24 0.5 MG Magnesium Oxide (Mag-Ox Tab) 400 mg DAILY PO 08/23/17 09:00 09/22/17 08:59 08/25/17 08:02 400 MG Metoprolol Succinate (Toprol Xl Tab) 12.5 mg BID PO 08/22/17 21:00 09/21/17 20:59 08/25/17 08:02 12.5 MG Multivitamins (Multivitamin Tab) 1 tab DAILY PO 08/23/17 09:00 09/22/17 08:59 08/25/17 08:02 1 TAB Ondansetron HCl (Zofran Tab) 4 mg Q6 PRN PO 08/22/17 15:30 09/21/17 15:29 Pantoprazole Sodium (Protonix Tab) 40 mg DAILY PO 08/23/17 09:00 09/22/17 08:59 08/25/17 08:05 40 MG Senna (Senokot Tab) 8.6 mg BID PO 08/22/17 21:00 09/21/17 20:59 08/25/17 08:02 8.6 MG Ascorbic Acid (Vitamin C Tab) 250 mg DAILY PO 08/23/17 09:00 09/22/17 08:59 08/25/17 08:02 250 MG Mirtazapine (Remeron Solutab) 15 mg HS PO 08/22/17 21:00 09/21/17 20:59 08/24/17 21:21 15 MG Paroxetine HCl (pAXil TAB) 40 mg DAILY PO 08/23/17 09:00 09/22/17 08:59 08/25/17 08:02 40 MG Potassium Chloride (Klor-Con M10) 10 meq BID PO 08/22/17 21:00 09/21/17 20:59 08/25/17 08:01 10 MEQ Heparin Sodium/ Dextrose 500 ml @ 14 mls/hr Q24H PRN IV 08/22/17 17:15 09/21/17 17:14 08/24/17 09:52 14 MLS/HR Miscellaneous (Fentanyl Patch Remove & Waste) 1 ea Q3D@1959 N/A 08/22/17 19:59 09/21/17 19:58 08/22/17 21:45 1 EA Miscellaneous Information (Check Fentanyl Patch Placement) 1 ea QS N/A 08/23/17 00:00 09/22/17 00:00 08/25/17 08:01 1 EA Oxycodone/ Acetaminophen (Percocet 5-325mg Tab) 1 tab Q6H PRN PO 08/23/17 09:15 09/05/17 15:29 08/25/17 00:05 1 TAB Warfarin Sodium (Coumadin Tab) 2 mg DAILY@16 PO 08/24/17 16:00 09/22/17 15:59 08/24/17 16:50 2 MG Cefepime HCl (Consult) 1 ea UD PRN N/A 08/24/17 18:15 09/23/17 18:14 Cefepime HCl 500 mg/Syringe 5.5 ml @ 5.5 mls/min DAILY@1800 IV 08/24/17 18:30 09/03/17 18:29 08/24/17 18:43 5.5 MLS/MIN Miscellaneous Information (Nursing Heparin Iv Rate Change) 1 ea ONE ONCE N/A 08/25/17 09:45 08/25/17 09:46 UNV
[2017-08-25] MEDS: TRIAMCINOLONE ACET NASAL SPRAY 10.8ML BTL NAE SCH (12:45)
[2017-08-25] MEDS: AMPICILLIN IV 1 GM in SODIUM CHLOR 0.9% AD-VAN 50ML 50 ML IV SCH (13:12)
[2017-08-25] MEDS: WARFARIN SOD 2 MG TAB PO SCH (17:37)
[2017-08-25] MEDS: FENTANYL PATCH REMOVE & WASTE SCH (19:59)
[2017-08-25] MEDS: MIRTAZAPINE SOLTAB 15 MG PO SCH (21:19)
[2017-08-25] MEDS: FENTANYL 25 MCG/HR TDSY TD SCH (21:24)
[2017-08-25] MEDS: HEPARIN 25,000 UNIT/500ML D5W 500 ML IV PRN (22:03)
[2017-08-26] VITALS (11 sets, daily range): BP systolic 98–130; BP diastolic 48–65; PULSE 76–112; TEMP 36.5–37.1; O2SAT 92–99
[2017-08-26] MEDS: CHECK FENTANYL PATCH PLACEMENT SCH ×3 (00:16→16:21)
[2017-08-26] MEDS: AMPICILLIN IV 1 GM in SODIUM CHLOR 0.9% AD-VAN 50ML 50 ML IV SCH ×2 (00:51→12:24)
[2017-08-26 06:49] LABS: BASO % 0.8 %; BASO ABS # 0.06 K/uL (0-0.2); EOS % 6.9 %; EOS ABS # 0.54 K/uL (0-0.5); HEMATOCRIT 27.2 % (37-47); HEMOGLOBIN 8.6 g/dL (12.0-16.0); IG# 0.01 K/uL (0.00-0.02); LYMPH % 25.1 %; LYMPH ABS # 1.96 K/uL (1.2-3.4); MEAN CELL VOLUME 99.3 fL (80-100); MEAN CORPUSCULAR HEMOGLOBIN 31.4 pg (25-34); MEAN CORPUSCULAR HGB CONC 31.6 g/dl (32-36); MEAN PLATELET VOLUME 10.1 fL (7.4-10.4); MONO % 14.6 %; MONO ABS # 1.14 K/uL (0.11-0.59); NEUT % 52.5 %; NEUT ABS # 4.11 K/uL (1.4-6.5); PLATELET COUNT 276 K/uL (130-400); RED CELL DISTRIBUTION WIDTH CV 14.5 % (11.5-14.5); RED CELL DISTRIBUTION WIDTH SD 52.2 fL (36.4-46.3); WHITE BLOOD COUNT 7.82 K/uL (4.8-10.8)
[2017-08-26 06:56] LABS: INR 1.3 (0.9-1.1)
[2017-08-26 07:32] LABS: PTT PATIENT 68.1 SECONDS (21.0-31.0)
[2017-08-26] MEDS: OXYCODONE/ACETAMINOPHEN 5-325 TAB PO PRN ×2 (08:04→22:00)
[2017-08-26] MEDS: FLUTICASONE/SALMETEROL 250/50 (ADVAIR) 14 PUFF/1 INHALER INH SCH ×2 (08:25→21:52)
[2017-08-26] MEDS: FERROUS SULFATE 325 MG TAB PO SCH ×2 (08:26→21:39)
[2017-08-26] MEDS: DOCUSATE SODIUM 100 MG CAP PO SCH ×2 (08:26→21:39)
[2017-08-26] MEDS: POTASSIUM CHLORIDE 10 MEQ TABCR PO SCH ×2 (08:26→21:39)
[2017-08-26] MEDS: TRIAMCINOLONE ACET NASAL SPRAY 10.8ML BTL NAE SCH (08:26)
[2017-08-26] MEDS: MAGNESIUM OXIDE 400 MG TAB PO SCH (08:27)
[2017-08-26] MEDS: FUROSEMIDE 20 MG TAB PO SCH (08:27)
[2017-08-26] MEDS: MULTIVITAMIN TAB PO SCH (08:27)
[2017-08-26] MEDS: SENNA 8.6 MG TAB PO SCH ×2 (08:28→21:38)
[2017-08-26] MEDS: METOPROLOL SUCC 25MG EXT REL TAB PO SCH ×2 (08:28→21:38)
[2017-08-26] MEDS: PAROXETINE 20 MG TAB PO SCH (08:28)
[2017-08-26] MEDS: PANTOprazole SOD 40 MG TAB PO SCH (08:28)
[2017-08-26] MEDS: ASCORBIC ACID 500 MG TAB PO SCH (08:29)
[2017-08-26] MEDS: LORAZEPAM 0.5 MG TAB PO PRN ×2 (08:31→21:39)
[2017-08-26] MEDS: ONDANSETRON INJ 2 MG/ML 2 ML VIAL IV PRN (08:31)
[2017-08-26] MEDS: WARFARIN SOD 2 MG TAB PO SCH (16:22)
--- NOTE | 2017-08-26 18:55 | Progress Note ---
Medicine Progress Note Date & Time of Visit: Aug 26, 2017 at 18:55. Subjective Patient reports pain in shoulder and knee, as well as feeling weak when she is ambulating or standing. She feels she has not been getting her pain meds when she asks for them. She also reports constipation since Thursday and requests a laxative. She denies any nasal congestion or EPSTEIN. No overnight events noted. Tolerating PO. Objective Last 8 Hrs Date Time Temp Pulse Resp B/P (MAP) Pulse Ox O2 Delivery O2 Flow Rate FiO2 08/26/17 16:00 97 Nasal Cannula 2.0 08/26/17 15:58 36.5 76 20 112/49 (70) 99 Nasal Cannula 2.0 08/26/17 12:12 36.8 79 22 98/48 (65) 94 Nasal Cannula 2.0 08/26/17 12:00 97 Nasal Cannula 2.0 Physical Exam: GENERAL: Patient is in no acute distress. HEENT: No acute trauma, normocephalic, mucous membranes moist, no nasal congestion, no scleral icterus, conjunctivae clear. Oral mucosa appears dry NECK: No stridor, trachea is midline. LUNGS: Clear to auscultation bilaterally, no wheeze, no rhonchi, breath sounds equal. HEART: Without murmurs gallops or rubs, regular rate and rhythm. ABDOMEN: Soft, nontender, bowel sounds positive, no hepatosplenomegaly EXTREMITIES: No cyanosis or edema, pain in left shoulder and knee; general weakness NEUROLOGIC: Oriented x 3, no acute motor or sensory deficits, no focal weakness. SKIN: No rash, no jaundice, no diaphoresis. Laboratory Results: Last 24 Hours Test 08/26/17 06:24 White Blood Count 7.82 K/uL Red Blood Count 2.74 M/uL Hemoglobin 8.6 g/dL Hematocrit 27.2 % Mean Corpuscular Volume 99.3 fL Mean Corpuscular Hemoglobin 31.4 pg Mean Corpuscular Hemoglobin Concent 31.6 g/dl Platelet Count 276 K/uL Mean Platelet Volume 10.1 fL Neutrophils (%) (Auto) 52.5 % Lymphocytes (%) (Auto) 25.1 % Monocytes (%) (Auto) 14.6 % Eosinophils (%) (Auto) 6.9 % Basophils (%) (Auto) 0.8 % Neutrophils # (Auto) 4.11 K/uL Lymphocytes # (Auto) 1.96 K/uL Monocytes # (Auto) 1.14 K/uL Eosinophils # (Auto) 0.54 K/uL Basophils # (Auto) 0.06 K/uL RDW Standard Deviation 52.2 fL RDW Coefficient of Variation 14.5 % Immature Granulocyte % (Auto) 0.1 % Immature Granulocyte # (Auto) 0.01 K/uL Large Platelets 1+ Anisocytosis PRESENT Stomatocytes 1+ Prothrombin Time 13.8 SECONDS Prothromb Time International Ratio 1.3 Activated Partial Thromboplast Time 68.1 SECONDS Partial Thromboplastin Ratio 2.6 Assessment & Plan AGE INDETERMINATE PE: -possibly Acute -known hx of recurrent PE and previously has been on Coumadin which was last stopped in the summer of 2016 due to fall risk/chronic GI blood loss and being on hospice but no longer on hospice as per patient -chronic respiratory failure: Oxygen Dependency on 2L at baseline which is what she has been requiring here as well -previous attending discussed with the patient regarding anticoagulation in light of above and she and her son would prefer to continue Coumadin despite explaining the risks -continue IV heparin while in hospital -monitor H&H -patient's son to discuss about IVC filter with patient and family as an option if bleeding issues recur. -patient has refused endoscopy/colonoscopy -Hb: 8.1-->8.6 today from 9's on admission -on coumadin 2mg + IV heparin -transfuse PRBCs if Hb drops -plan to discharge to home with Lovenox bridge and Coumadin if Hb stable -Pain control UTI: -on Cefepime Day # 3 -Urine culture: Enterococcus -resistant to ceftriaxone on prior cultures LEFT SHOULDER PAIN: -X ray: Severe glenohumeral and moderate AC joint degenerative changes without acute fracture or subluxation. Chondrocalcinosis or calcified bursitis about the left glenohumeral joint. -PT/OT -pain control -patient also reports history of rotator cuff tear in the past -consulted Ortho for knee and shoulder pain and evaluation of whether patient would benefit from a joint injection CAD: -S/P prior CABG -Troponin X3: Negative -EKG: no acute ST changes -TTE: No segmental left ventricular wall motion abnormalities -continue current meds CKD STAGE III: -baseline Cr 1.3 - 1.4 -stable -monitor -avoid nephrotoxins when possible PRIOR AORTIC STENOSIS: -S/P TAVR -no acute issues PRIOR ENDOMETRIAL CA: -has been greater than 20 years ago and no longer followed -no related symptoms noted CHRONIC ANEMIA: -continue Iron supplements -likely a combination of anemia of CKD with anemia of blood loss and iron deficiency based on prior labs/hx -Patient refuses endoscopy despite having prior FOBT + -monitor H&H, transfuse as needed CHRONIC DIASTOLIC CHF: -not in exacerbation -continue lasix/current meds COPD: -Chronic Oxygen dependent -continue home inhalers -not in exacerbation CHRONIC MUSCULOSKELETAL PAIN -shoulder and knee pain -H/O Rotator cuff tear -H/O steroid Shots in the past -pain control -PT/OT -celecoxib held while on blood thinners Current Inpatient Medications: Current Inpatient Medications Medications (Trade) Dose Ordered Sig/Rosi Route Start Time Stop Time Status Last Admin Dose Admin Acetaminophen (Tylenol Tab) 650 mg Q4H PRN PO 08/22/17 15:30 09/21/17 15:29 08/24/17 18:51 650 MG Al Hydrox/Mg Hydrox/Simethicone (Maalox Max Susp) 15 ml Q4H PRN PO 08/22/17 15:30 09/21/17 15:29 Ondansetron HCl (Zofran Inj) 4 mg Q6H PRN IV 08/22/17 15:30 09/21/17 15:29 08/26/17 08:31 4 MG Nitroglycerin (Nitrostat Tab) 0.4 mg UD PRN SL 08/22/17 15:30 09/21/17 15:29 Polyethylene (Miralax Powder Packet) 17 gm DAILY PRN PO 08/22/17 15:30 09/21/17 15:29 Albuterol Sulfate (Ventolin 0.083% 2.5MG/3ML Neb) 2.5 mg QID PRN INH 08/22/17 15:30 09/21/17 15:29 08/24/17 04:26 2.5 MG Docusate Sodium (coLACE CAP) 100 mg BID PO 08/22/17 21:00 09/21/17 20:59 08/26/17 08:26 100 MG Fentanyl (Duragesic Patch) 25 mcg Q3D@1999 TD 08/22/17 20:00 2/3/18 19:59 08/25/17 21:24 25 MCG Ferrous Sulfate (Feosol Tab) 325 mg BID PO 08/22/17 21:00 09/21/17 20:59 08/26/17 08:26 325 MG Salmeterol Xinafoate/ Fluticasone (Advair Diskus 250/50 Inh) 1 puff BID INH 08/22/17 21:00 09/21/17 20:59 08/26/17 08:25 1 PUFF Furosemide (Lasix Tab) 40 mg DAILY PO 08/23/17 09:00 09/22/17 08:59 08/26/17 08:27 40 MG Lorazepam (Ativan Tab) 0.5 mg HS PRN PO 08/22/17 15:30 09/21/17 15:29 08/26/17 08:31 0.5 MG Magnesium Oxide (Mag-Ox Tab) 400 mg DAILY PO 08/23/17 09:00 09/22/17 08:59 08/26/17 08:27 400 MG Metoprolol Succinate (Toprol Xl Tab) 12.5 mg BID PO 08/22/17 21:00 09/21/17 20:59 08/26/17 08:28 12.5 MG Multivitamins (Multivitamin Tab) 1 tab DAILY PO 08/23/17 09:00 09/22/17 08:59 08/26/17 08:27 1 TAB Ondansetron HCl (Zofran Tab) 4 mg Q6 PRN PO 08/22/17 15:30 09/21/17 15:29 Pantoprazole Sodium (Protonix Tab) 40 mg DAILY PO 08/23/17 09:00 09/22/17 08:59 08/26/17 08:28 40 MG Senna (Senokot Tab) 8.6 mg BID PO 08/22/17 21:00 09/21/17 20:59 08/26/17 08:28 8.6 MG Ascorbic Acid (Vitamin C Tab) 250 mg DAILY PO 08/23/17 09:00 09/22/17 08:59 08/26/17 08:29 250 MG Mirtazapine (Remeron Solutab) 15 mg HS PO 08/22/17 21:00 09/21/17 20:59 08/25/17 21:19 15 MG Paroxetine HCl (pAXil TAB) 40 mg DAILY PO 08/23/17 09:00 09/22/17 08:59 08/26/17 08:28 40 MG Potassium Chloride (Klor-Con M10) 10 meq BID PO 08/22/17 21:00 09/21/17 20:59 08/26/17 08:26 10 MEQ Heparin Sodium/ Dextrose 500 ml @ 14 mls/hr Q24H PRN IV 08/22/17 17:15 09/21/17 17:14 08/25/17 22:03 14 MLS/HR Miscellaneous (Fentanyl Patch Remove & Waste) 1 ea Q3D@1959 N/A 08/22/17 19:59 09/21/17 19:58 08/25/17 19:59 1 EA Miscellaneous Information (Check Fentanyl Patch Placement) 1 ea QS N/A 08/23/17 00:00 09/22/17 00:00 08/26/17 16:21 1 EA Oxycodone/ Acetaminophen (Percocet 5-325mg Tab) 1 tab Q6H PRN PO 08/23/17 09:15 09/05/17 15:29 08/26/17 08:04 1 TAB Warfarin Sodium (Coumadin Tab) 2 mg DAILY@16 PO 08/24/17 16:00 09/22/17 15:59 08/26/17 16:22 2 MG Ampicillin Sodium 1 gm/Sodium Chloride 50 ml @ 100 mls/hr Q12H IV 08/25/17 12:00 09/04/17 11:59 08/26/17 12:24 100 MLS/HR Triamcinolone Acetonide (Nasacort Allergy 24hr) 2 sprays DAILY KELLY 08/25/17 12:45 09/24/17 12:44 08/26/17 08:26 2 SPRAYS Lactobacillus Acidophilus (Lactinex Granules Pack) 1 gm TIDM PO 08/27/17 07:30 09/26/17 07:29
[2017-08-26] MEDS ORDERED: BISACODYL 5 MG TABEC PO ONE (19:00)
--- NOTE | 2017-08-26 20:58 | DIAGNOSTIC IMAGING REPORT ---
LEFT KNEE 2 VIEWS CLINICAL HISTORY: Chronic left knee pain. FINDINGS: AP and crosstable lateral portable views of the left knee are compared to study dated 02/19/2017. The skeletal structures are osteopenic. No fracture is seen. There is moderate to advanced tricompartmental degenerative joint space narrowing, greatest in the lateral and patellofemoral compartments. There is near complete loss of the lateral joint space with associated bony sclerosis. There are small marginal osteophytes as well as patellar enthesophytes. Chondrocalcinosis is noted in the medial and lateral compartments. A joint effusion is identified. The overlying soft tissues are within normal limits. Atherosclerotic calcification is present in the popliteal artery. IMPRESSION: 1. Joint effusion with no acute bony abnormality seen in the left knee. 2. Osteopenia with arthritic change and chondrocalcinosis as above. This is similar in appearance to the 02/19/2017 examination. Electronically signed by: Williams Irizarry M.D. 08/26/2017 8:56 PM Dictated Date/Time: 08/26/2017 8:54 PM
[2017-08-26] MEDS: MIRTAZAPINE SOLTAB 15 MG PO SCH (21:39)
[2017-08-27] VITALS (13 sets, daily range): BP systolic 105–143; BP diastolic 51–74; PULSE 80–85; TEMP 36.4–37.1; O2SAT 91–97
[2017-08-27] MEDS: AMPICILLIN IV 1 GM in SODIUM CHLOR 0.9% AD-VAN 50ML 50 ML IV SCH ×2 (00:32→11:46)
[2017-08-27] MEDS: OXYCODONE/ACETAMINOPHEN 5-325 TAB PO PRN ×2 (05:23→11:28)
[2017-08-27 05:43] LABS: BASO ABS # 0.07 K/uL (0-0.2); EOS % 10.7 %; EOS ABS # 0.72 K/uL (0-0.5); HEMATOCRIT 30.3 % (37-47); HEMOGLOBIN 9.3 g/dL (12.0-16.0); IG# 0.01 K/uL (0.00-0.02); LYMPH % 30.8 %; LYMPH ABS # 2.08 K/uL (1.2-3.4); MEAN CELL VOLUME 100.7 fL (80-100); MEAN CORPUSCULAR HEMOGLOBIN 30.9 pg (25-34); MEAN CORPUSCULAR HGB CONC 30.7 g/dl (32-36); MEAN PLATELET VOLUME 10.4 fL (7.4-10.4); MONO ABS # 1.42 K/uL (0.11-0.59); NEUT % 36.4 %; NEUT ABS # 2.45 K/uL (1.4-6.5); PLATELET COUNT 300 K/uL (130-400); RED CELL DISTRIBUTION WIDTH CV 14.5 % (11.5-14.5); RED CELL DISTRIBUTION WIDTH SD 53.1 fL (36.4-46.3); WHITE BLOOD COUNT 6.75 K/uL (4.8-10.8)
[2017-08-27 06:08] LABS: INR 1.6 (0.9-1.1)
[2017-08-27 06:09] LABS: PTT PATIENT 95.1 SECONDS (21.0-31.0)
[2017-08-27 06:10] LABS: CALCIUM 10.8 mg/dl (8.5-10.1); CREATININE 1.66 mg/dl (0.60-1.20); POTASSIUM 4.1 mmol/L (3.5-5.1)
[2017-08-27] MEDS ORDERED: METHYLPREDNISOLONE ACETATE 80 MG/ML VIAL IA ONE ×2 (09:30)
[2017-08-27] MEDS ORDERED: ETHYL CHLORIDE AER SPR 100 ML CAN EXT SCH ×2 (09:30)
[2017-08-27] MEDS ORDERED: BUPIVACAINE 0.5 % 5 MG/1 ML MPF 30ML VIAL INFIL ONE ×2 (09:30)
[2017-08-27] MEDS: LACTOBACILLUS ACIDOPHILUS 1 GM PACK PO SCH ×3 (09:34→15:55)
[2017-08-27] MEDS: FLUTICASONE/SALMETEROL 250/50 (ADVAIR) 14 PUFF/1 INHALER INH SCH ×2 (09:35→20:55)
[2017-08-27] MEDS: FERROUS SULFATE 325 MG TAB PO SCH ×2 (09:35→20:56)
[2017-08-27] MEDS: TRIAMCINOLONE ACET NASAL SPRAY 10.8ML BTL NAE SCH (09:35)
[2017-08-27] MEDS: DOCUSATE SODIUM 100 MG CAP PO SCH ×2 (09:35→20:56)
[2017-08-27] MEDS: POTASSIUM CHLORIDE 10 MEQ TABCR PO SCH ×2 (09:36→20:56)
[2017-08-27] MEDS: FUROSEMIDE 20 MG TAB PO SCH (09:37)
[2017-08-27] MEDS: MULTIVITAMIN TAB PO SCH (09:38)
[2017-08-27] MEDS: MAGNESIUM OXIDE 400 MG TAB PO SCH (09:38)
--- NOTE | 2017-08-27 09:38 | CONSULTATION REPORT ---
DATE OF CONSULTATION: 08/27/2017 DATE OF CONSULTATION: 08/27/2017 HISTORY OF PRESENT ILLNESS: The patient is an 82-year-old female admitted by the medicine service with chest pain and shortness of breath. She has a long history of multiple medical problems and is currently being treated for PE. She was also complaining of left shoulder and left knee pain. She has a known history of osteoarthritis. She has had injections in both the shoulder and knee in the past by different providers and also by Dr. Leslie of our practice. She has difficulty recalling when her last injections were, although she says it has been several months. An orthopedics consult was asked to evaluate her. Currently, she is sitting in her chair, appears comfortable. She has significant crepitus of the left knee when extending the knee from a flexed position. She does not have a significant intraarticular effusion. Her range of motion is approximately 0-110 degrees. She has limited active and passive range of motion about her left shoulder. Active and passively she can only flex to maybe 70-80 degrees. She has limited external rotation as well. There is crepitus in the shoulder with range of motion also. She is right hand dominant. X-RAYS OF THE SHOULDER: X-rays were reviewed and show moderate glenohumeral degenerative arthritis. Otherwise, no acute abnormalities. The images of the knee were not available, but the report stated severe tricompartmental arthritis, most prominent in the lateral and patellofemoral compartments with joint space narrowing and osteophyte formation. ASSESSMENT: An 82-year-old female with degenerative arthritis, left shoulder and left knee. PLAN: Given her current medical problems, she is not a surgical candidate. I think repeat injections in both knee and shoulder would be appropriate for pain control. This will be ordered and will be placed likely later today when injection is available.
[2017-08-27] MEDS: PAROXETINE 20 MG TAB PO SCH (09:39)
[2017-08-27] MEDS: PANTOprazole SOD 40 MG TAB PO SCH (09:41)
[2017-08-27] MEDS: SENNA 8.6 MG TAB PO SCH ×2 (09:41→20:55)
[2017-08-27] MEDS: ASCORBIC ACID 500 MG TAB PO SCH (09:42)
[2017-08-27] MEDS: METOPROLOL SUCC 25MG EXT REL TAB PO SCH ×2 (09:42→20:55)
[2017-08-27] MEDS: CHECK FENTANYL PATCH PLACEMENT SCH ×3 (09:44→15:58)
--- NOTE | 2017-08-27 13:40 | Orthopedic Progress Note ---
Orthopedic Progress Note Date of Service Aug 27, 2017. Objective Date Time Temp Pulse Resp B/P (MAP) Pulse Ox O2 Delivery O2 Flow Rate FiO2 08/27/17 12:58 93 Nasal Cannula 2.0 08/27/17 12:00 97 Nasal Cannula 2.0 08/27/17 11:50 36.4 82 18 127/74 (91) 93 Nasal Cannula 2.0 08/27/17 10:19 95 Nasal Cannula 2.0 08/27/17 08:01 37.1 85 17 143/62 (89) 95 Nasal Cannula 2.0 08/27/17 08:00 97 Nasal Cannula 2.0 08/27/17 04:00 Nasal Cannula 2.0 08/27/17 04:00 37.1 80 17 137/67 (90) 93 Nasal Cannula 2.0 08/27/17 00:16 37.0 80 18 110/58 (75) 91 Nasal Cannula 2.0 08/27/17 00:01 Nasal Cannula 2.0 08/26/17 20:00 Nasal Cannula 2.0 08/26/17 19:54 36.8 87 20 116/57 (76) 95 Nasal Cannula 3.0 08/26/17 16:00 97 Nasal Cannula 2.0 08/26/17 15:58 36.5 76 20 112/49 (70) 99 Nasal Cannula 2.0 Laboratory Results 24 Hours: Test 08/27/17 05:13 White Blood Count 6.75 K/uL Red Blood Count 3.01 M/uL Hemoglobin 9.3 g/dL Hematocrit 30.3 % Mean Corpuscular Volume 100.7 fL Mean Corpuscular Hemoglobin 30.9 pg Mean Corpuscular Hemoglobin Concent 30.7 g/dl Platelet Count 300 K/uL Mean Platelet Volume 10.4 fL Neutrophils (%) (Auto) 36.4 % Lymphocytes (%) (Auto) 30.8 % Monocytes (%) (Auto) 21.0 % Eosinophils (%) (Auto) 10.7 % Basophils (%) (Auto) 1.0 % Neutrophils # (Auto) 2.45 K/uL Lymphocytes # (Auto) 2.08 K/uL Monocytes # (Auto) 1.42 K/uL Eosinophils # (Auto) 0.72 K/uL Basophils # (Auto) 0.07 K/uL Prothromb Time International Ratio 1.6 Prothrombin Time 16.3 SECONDS Assessment & Plan Assessment: 82 yo female with left shoulder and left knee DJD. Plan: Pt's left knee and left shoulder injected by Dr Lynn with 0.5% marcaine and 80mg depomedrol. Pt tolerated well and can follow-up as outpatient as needed.
[2017-08-27 13:50] LABS: PTT PATIENT 55.8 SECONDS (21.0-31.0)
[2017-08-27] MEDS: WARFARIN SOD 2 MG TAB PO SCH (15:54)
--- NOTE | 2017-08-27 18:25 | Progress Note ---
Medicine Progress Note Date & Time of Visit: Aug 27, 2017 at 18:23. Subjective Patient reports feeling better, still feels weak and difficulty with walking but is adamant she does not want to go to rehab. No overnight events noted. States she has some chest pain and SOB as she had on admission, and the chest pain is worse with deep breathing. Had injections to her knee and shoulder today. Pain is controlled. No other complaints. Objective Last 8 Hrs Date Time Temp Pulse Resp B/P (MAP) Pulse Ox O2 Delivery O2 Flow Rate FiO2 08/27/17 16:25 93 Nasal Cannula 2.0 08/27/17 15:43 36.8 85 16 105/60 (75) 93 Nasal Cannula 2.0 08/27/17 12:58 93 Nasal Cannula 2.0 08/27/17 12:00 97 Nasal Cannula 2.0 08/27/17 11:50 36.4 82 18 127/74 (91) 93 Nasal Cannula 2.0 Physical Exam: GENERAL: Patient is in no acute distress. HEENT: No acute trauma, normocephalic, mucous membranes moist, no nasal congestion, no scleral icterus, conjunctivae clear. NECK: No stridor, trachea is midline. LUNGS: LLL crackles, no wheeze, no rhonchi HEART: Without murmurs gallops or rubs, regular rate and rhythm. ABDOMEN: Soft, nontender, bowel sounds positive, no hepatosplenomegaly EXTREMITIES: No cyanosis or edema, pain in left shoulder and knee; general weakness NEUROLOGIC: Oriented x 3, no acute motor or sensory deficits, no focal weakness. SKIN: No rash, no jaundice, no diaphoresis. Laboratory Results: Last 24 Hours Test 08/27/17 05:13 08/27/17 13:01 White Blood Count 6.75 K/uL Red Blood Count 3.01 M/uL Hemoglobin 9.3 g/dL Hematocrit 30.3 % Mean Corpuscular Volume 100.7 fL Mean Corpuscular Hemoglobin 30.9 pg Mean Corpuscular Hemoglobin Concent 30.7 g/dl Platelet Count 300 K/uL Mean Platelet Volume 10.4 fL Neutrophils (%) (Auto) 36.4 % Lymphocytes (%) (Auto) 30.8 % Monocytes (%) (Auto) 21.0 % Eosinophils (%) (Auto) 10.7 % Basophils (%) (Auto) 1.0 % Neutrophils # (Auto) 2.45 K/uL Lymphocytes # (Auto) 2.08 K/uL Monocytes # (Auto) 1.42 K/uL Eosinophils # (Auto) 0.72 K/uL Basophils # (Auto) 0.07 K/uL RDW Standard Deviation 53.1 fL RDW Coefficient of Variation 14.5 % Immature Granulocyte % (Auto) 0.1 % Immature Granulocyte # (Auto) 0.01 K/uL Prothrombin Time 16.3 SECONDS Prothromb Time International Ratio 1.6 Activated Partial Thromboplast Time 95.1 SECONDS 55.8 SECONDS Partial Thromboplastin Ratio 3.7 2.1 Sodium Level 136 mmol/L Potassium Level 4.1 mmol/L Chloride Level 101 mmol/L Carbon Dioxide Level 30 mmol/L Anion Gap 5.0 mmol/L Blood Urea Nitrogen 20 mg/dl Creatinine 1.66 mg/dl Est Creatinine Clear Calc Drug Dose 22.1 ml/min Estimated GFR () 32.5 Estimated GFR (Non- 28.0 BUN/Creatinine Ratio 12.0 Random Glucose 99 mg/dl Calcium Level 10.8 mg/dl Assessment & Plan AGE INDETERMINATE PE: -possibly Acute -known hx of recurrent PE and previously has been on Coumadin which was last stopped in the summer of 2016 due to fall risk/chronic GI blood loss and being on hospice but no longer on hospice as per patient -chronic respiratory failure: Oxygen Dependency on 2L at baseline which is what she has been requiring here as well -previous attending discussed with the patient regarding anticoagulation in light of above and she and her son would prefer to continue Coumadin despite explaining the risks -continue IV heparin while in hospital -monitor H&H -patient's son to discuss about IVC filter with patient and family as an option if bleeding issues recur. -patient has refused endoscopy/colonoscopy -Hb: 8.1-->8.6-->9 today from 9's on admission -on coumadin 2mg + IV heparin -transfuse PRBCs if Hb drops or is symptomatic -plan to discharge to home with Lovenox bridge and Coumadin if Hb stable -Pain control UTI: -on Cefepime Day # 4 -Urine culture: Enterococcus -resistant to ceftriaxone on prior cultures LEFT SHOULDER PAIN: -X ray: Severe glenohumeral and moderate AC joint degenerative changes without acute fracture or subluxation. Chondrocalcinosis or calcified bursitis about the left glenohumeral joint. -PT/OT -pain control -patient also reports history of rotator cuff tear in the past -consulted Ortho for knee and shoulder pain and evaluation of whether patient would benefit from a joint injection; appreciate intervention CAD: -S/P prior CABG -Troponin X3: Negative -EKG: no acute ST changes -TTE: No segmental left ventricular wall motion abnormalities -continue current meds CKD STAGE III: -baseline Cr 1.3 - 1.4 -slightly worse at 1.6 today -monitor -avoid nephrotoxins when possible PRIOR AORTIC STENOSIS: -S/P TAVR -no acute issues PRIOR ENDOMETRIAL CA: -has been greater than 20 years ago and no longer followed -no related symptoms noted CHRONIC ANEMIA: -continue Iron supplements -likely a combination of anemia of CKD with anemia of blood loss and iron deficiency based on prior labs/hx -Patient has refused endoscopy despite having prior FOBT + -monitor H&H, transfuse as needed CHRONIC DIASTOLIC CHF: -not in exacerbation -continue lasix/current meds COPD: -Chronic Oxygen dependent -continue home inhalers -not in exacerbation CHRONIC MUSCULOSKELETAL PAIN -shoulder and knee pain -H/O Rotator cuff tear -H/O steroid Shots in the past -pain control -PT/OT -celecoxib held while on blood thinners Current Inpatient Medications: Current Inpatient Medications Medications (Trade) Dose Ordered Sig/Rosi Route Start Time Stop Time Status Last Admin Dose Admin Acetaminophen (Tylenol Tab) 650 mg Q4H PRN PO 08/22/17 15:30 09/21/17 15:29 08/24/17 18:51 650 MG Al Hydrox/Mg Hydrox/Simethicone (Maalox Max Susp) 15 ml Q4H PRN PO 08/22/17 15:30 09/21/17 15:29 Ondansetron HCl (Zofran Inj) 4 mg Q6H PRN IV 08/22/17 15:30 09/21/17 15:29 08/26/17 08:31 4 MG Nitroglycerin (Nitrostat Tab) 0.4 mg UD PRN SL 08/22/17 15:30 09/21/17 15:29 Polyethylene (Miralax Powder Packet) 17 gm DAILY PRN PO 08/22/17 15:30 09/21/17 15:29 Albuterol Sulfate (Ventolin 0.083% 2.5MG/3ML Neb) 2.5 mg QID PRN INH 08/22/17 15:30 09/21/17 15:29 08/24/17 04:26 2.5 MG Docusate Sodium (coLACE CAP) 100 mg BID PO 08/22/17 21:00 09/21/17 20:59 08/27/17 09:35 100 MG Fentanyl (Duragesic Patch) 25 mcg Q3D@2000 TD 08/22/17 20:00 09/05/17 19:59 08/25/17 21:24 25 MCG Ferrous Sulfate (Feosol Tab) 325 mg BID PO 08/22/17 21:00 09/21/17 20:59 08/27/17 09:35 325 MG Salmeterol Xinafoate/ Fluticasone (Advair Diskus 250/50 Inh) 1 puff BID INH 08/22/17 21:00 09/21/17 20:59 08/27/17 09:35 1 PUFF Furosemide (Lasix Tab) 40 mg DAILY PO 08/23/17 09:00 09/22/17 08:59 08/27/17 09:37 40 MG Lorazepam (Ativan Tab) 0.5 mg HS PRN PO 08/22/17 15:30 09/21/17 15:29 08/26/17 21:39 0.5 MG Magnesium Oxide (Mag-Ox Tab) 400 mg DAILY PO 08/23/17 09:00 09/22/17 08:59 08/27/17 09:38 400 MG Metoprolol Succinate (Toprol Xl Tab) 12.5 mg BID PO 08/22/17 21:00 09/21/17 20:59 08/27/17 09:42 12.5 MG Multivitamins (Multivitamin Tab) 1 tab DAILY PO 08/23/17 09:00 09/22/17 08:59 08/27/17 09:38 1 TAB Ondansetron HCl (Zofran Tab) 4 mg Q6 PRN PO 08/22/17 15:30 09/21/17 15:29 Pantoprazole Sodium (Protonix Tab) 40 mg DAILY PO 08/23/17 09:00 09/22/17 08:59 08/27/17 09:41 40 MG Senna (Senokot Tab) 8.6 mg BID PO 08/22/17 21:00 09/21/17 20:59 08/27/17 09:41 8.6 MG Ascorbic Acid (Vitamin C Tab) 250 mg DAILY PO 08/23/17 09:00 09/22/17 08:59 08/27/17 09:42 250 MG Mirtazapine (Remeron Solutab) 15 mg HS PO 08/22/17 21:00 09/21/17 20:59 08/26/17 21:39 15 MG Paroxetine HCl (pAXil TAB) 40 mg DAILY PO 08/23/17 09:00 09/22/17 08:59 08/27/17 09:39 40 MG Potassium Chloride (Klor-Con M10) 10 meq BID PO 08/22/17 21:00 09/21/17 20:59 08/27/17 09:36 10 MEQ Heparin Sodium/ Dextrose 500 ml @ 12 mls/hr Q24H PRN IV 08/22/17 17:15 09/21/17 17:14 08/25/17 22:03 14 MLS/HR Miscellaneous (Fentanyl Patch Remove & Waste) 1 ea Q3D@1959 N/A 08/22/17 19:59 09/21/17 19:58 08/25/17 19:59 1 EA Miscellaneous Information (Check Fentanyl Patch Placement) 1 ea QS N/A 08/23/17 00:00 09/22/17 00:00 08/27/17 15:58 1 EA Oxycodone/ Acetaminophen (Percocet 5-325mg Tab) 1 tab Q6H PRN PO 08/23/17 09:15 09/05/17 15:29 08/27/17 11:28 1 TAB Warfarin Sodium (Coumadin Tab) 2 mg DAILY@16 PO 08/24/17 16:00 09/22/17 15:59 08/27/17 15:54 2 MG Ampicillin Sodium 1 gm/Sodium Chloride 50 ml @ 100 mls/hr Q12H IV 08/25/17 12:00 09/04/17 11:59 08/27/17 11:46 100 MLS/HR Triamcinolone Acetonide (Nasacort Allergy 24hr) 2 sprays DAILY KELLY 08/25/17 12:45 09/24/17 12:44 08/27/17 09:35 2 SPRAYS Lactobacillus Acidophilus (Lactinex Granules Pack) 1 gm TIDM PO 08/27/17 07:30 09/26/17 07:29 08/27/17 15:55 1 GM
--- NOTE | 2017-08-27 19:30 | DIAGNOSTIC IMAGING REPORT ---
CHEST ONE VIEW PORTABLE HISTORY: 82 years-old Female SOB, possible effusion acute shortness of breath COMPARISON: Chest radiograph 08/24/2017 TECHNIQUE: Portable AP view of the chest FINDINGS: Patient is mildly rotated to the left. Moderate enlargement of the heart. Prosthetic aortic valve is noted with large hiatal hernia. Atherosclerosis of the aorta. There is no pneumothorax, overt pulmonary edema or large pleural effusion. Patchy subsegmental left basilar opacities appear new. There is trace fluid within the minor fissure. Remote right-sided rib fractures. Levoscoliosis of the lower thoracic spine. IMPRESSION: 1. Patchy left basilar opacities suggest atelectasis or pneumonia. 2. Cardiomegaly without overt pulmonary edema. 3. Large hiatal hernia. The above report was generated using voice recognition software. It may contain grammatical, syntax or spelling errors. Electronically signed by: Joshua Feng M.D. 08/27/2017 7:28 PM Dictated Date/Time: 08/27/2017 7:25 PM
[2017-08-27] MEDS: MIRTAZAPINE SOLTAB 15 MG PO SCH (20:57)
[2017-08-28] MEDS: AMPICILLIN IV 1 GM in SODIUM CHLOR 0.9% AD-VAN 50ML 50 ML IV SCH (00:05)
[2017-08-28] MEDS: CHECK FENTANYL PATCH PLACEMENT SCH ×3 (00:07→16:08)
[2017-08-28 03:44] VITALS: BP 107/54; PULSE 81; TEMP 36.8; O2SAT 92
[2017-08-28 05:55] LABS: BASO % 0.3 %; BASO ABS # 0.01 K/uL (0-0.2); HEMATOCRIT 25.8 % (37-47); HEMOGLOBIN 7.9 g/dL (12.0-16.0); LYMPH % 25.4 %; LYMPH ABS # 0.99 K/uL (1.2-3.4); MEAN CELL VOLUME 99.6 fL (80-100); MEAN CORPUSCULAR HEMOGLOBIN 30.5 pg (25-34); MEAN CORPUSCULAR HGB CONC 30.6 g/dl (32-36); MEAN PLATELET VOLUME 10.1 fL (7.4-10.4); MONO % 6.2 %; MONO ABS # 0.24 K/uL (0.11-0.59); NEUT % 68.1 %; NEUT ABS # 2.66 K/uL (1.4-6.5); PLATELET COUNT 291 K/uL (130-400); RED CELL DISTRIBUTION WIDTH CV 14.2 % (11.5-14.5); RED CELL DISTRIBUTION WIDTH SD 51.4 fL (36.4-46.3)
[2017-08-28 06:09] LABS: INR 2.7 (0.9-1.1)
[2017-08-28 06:39] LABS: CALCIUM 10.1 mg/dl (8.5-10.1); CREATININE 1.38 mg/dl (0.60-1.20); POTASSIUM 4.1 mmol/L (3.5-5.1)
[2017-08-28 07:18] LABS: PTT PATIENT 83.9 SECONDS (21.0-31.0)
[2017-08-28 07:45] VITALS: BP 100/55; PULSE 77; TEMP 37.2; O2SAT 94
[2017-08-28] MEDS: PAROXETINE 20 MG TAB PO SCH (07:50)
[2017-08-28] MEDS: ASCORBIC ACID 500 MG TAB PO SCH (07:50)
[2017-08-28] MEDS: MAGNESIUM OXIDE 400 MG TAB PO SCH (07:50)
[2017-08-28] MEDS: FUROSEMIDE 20 MG TAB PO SCH (07:50)
[2017-08-28] MEDS: LACTOBACILLUS ACIDOPHILUS 1 GM PACK PO SCH ×2 (07:51→11:30)
[2017-08-28] MEDS: MULTIVITAMIN TAB PO SCH (07:51)
[2017-08-28] MEDS: TRIAMCINOLONE ACET NASAL SPRAY 10.8ML BTL NAE SCH (07:51)
[2017-08-28] MEDS: FERROUS SULFATE 325 MG TAB PO SCH ×2 (07:51→21:13)
[2017-08-28] MEDS: METOPROLOL SUCC 25MG EXT REL TAB PO SCH ×2 (07:51→21:15)
[2017-08-28] MEDS: SENNA 8.6 MG TAB PO SCH ×2 (07:51→21:13)
[2017-08-28] MEDS: POTASSIUM CHLORIDE 10 MEQ TABCR PO SCH ×2 (07:52→21:14)
[2017-08-28] MEDS: PANTOprazole SOD 40 MG TAB PO SCH (07:52)
[2017-08-28] MEDS: FLUTICASONE/SALMETEROL 250/50 (ADVAIR) 14 PUFF/1 INHALER INH SCH ×2 (07:52→20:08)
[2017-08-28] MEDS ORDERED: VANCOMYCIN CONSULT ACTIVE PRN (08:00)
[2017-08-28] MEDS: OXYCODONE/ACETAMINOPHEN 5-325 TAB PO PRN ×2 (08:35→16:08)
[2017-08-28] MEDS: DOCUSATE SODIUM 100 MG CAP PO SCH ×2 (09:22→21:13)
[2017-08-28] MEDS: CEFEPIME IV 2,000 MG in SYRINGE 7.5 ML IV SCH (09:23)
[2017-08-28] MEDS ORDERED: VANCOMYCIN INJ 1,250 MG in SODIUM CHLORIDE 0.9% 250ML 250 ML IV ONE (09:30)
--- NOTE | 2017-08-28 09:32 | Pharmacy Progress Note ---
Pharmacy Abx Dose Short Note Date of Service Aug 28, 2017. Assessment & Plan Assessment * 82 year old female admitted on 08/22 for SOB and chest pain. Found to have age indeterminant PE, possibly acute. * Patient has a h/o pulmonary fibrosis and COPD w/ baseline O2 requirement 2L * Patient had been receiving Ampicillin 08/25 -->08/28 for enterococcus faecalis UTI * Provider has d/c'd the Ampicillin this AM and given orders to initiate Vancomycin + Cefepime for presumed HAP. Patient had c/o increased SOB and cough to provider. Yesterday's CXR read as L basilar opacities: atelectasis vs pneumonia. The current plan per provider is to initiate broad spectrum ABX today, begin IS and obtain CXR tomorrow. * Patient is currently on baseline O2 requirement and sat well, afebrile and VSS * Renal fxn appears to be improving * MRSA nasal swab ordered; however even if swab is negative - vancomycin cannot be cut without adding a second agent to cover enterococcus in urine Plan Vancomycin * Loading dose: 1250mg IV x 1 (~19mg/kg) * p'kinetic estimates: Vd 0.7L/kg, half-life ~26 hours * Given long half-life will give a single dose today, no maintenance dose at this time, rather dose according to random AM level * Random level ordered w/ AM labs tomorrow Cefepime * 2gm IV Q 24 hrs indicated for eCrCl 11-29cc/min Pharmacy will continue to follow and will adjust dose/frequency as necessary. Thank you.
--- NOTE | 2017-08-28 11:04 | Orthopedic Progress Note ---
Orthopedic Progress Note Date of Service Aug 28, 2017. Subjective Additional Notes: Pt is one day post injection of her left knee and shoulder. States that her knee is much better today. Her shoulder is a little better today. Objective Injection sites benign. Left knee less painful. Left shoulder with slight decrease in pain. Date Time Temp Pulse Resp B/P (MAP) Pulse Ox O2 Delivery O2 Flow Rate FiO2 08/28/17 07:45 37.2 77 16 100/55 (70) 94 Nasal Cannula 2.0 08/28/17 04:00 Nasal Cannula 2.0 08/28/17 03:44 36.8 81 19 107/54 (71) 92 Nasal Cannula 2.0 08/28/17 00:00 Nasal Cannula 2.0 08/27/17 23:06 36.6 81 17 108/51 (70) 93 Nasal Cannula 2.0 08/27/17 20:06 36.4 81 17 124/66 (85) 97 Nasal Cannula 2.0 08/27/17 20:00 92 Nasal Cannula 2.0 08/27/17 16:25 93 Nasal Cannula 2.0 08/27/17 15:43 36.8 85 16 105/60 (75) 93 Nasal Cannula 2.0 08/27/17 12:58 93 Nasal Cannula 2.0 08/27/17 12:00 97 Nasal Cannula 2.0 08/27/17 11:50 36.4 82 18 127/74 (91) 93 Nasal Cannula 2.0 Laboratory Results 24 Hours: Test 08/28/17 05:20 White Blood Count 3.90 K/uL Red Blood Count 2.59 M/uL Hemoglobin 7.9 g/dL Hematocrit 25.8 % Mean Corpuscular Volume 99.6 fL Mean Corpuscular Hemoglobin 30.5 pg Mean Corpuscular Hemoglobin Concent 30.6 g/dl Platelet Count 291 K/uL Mean Platelet Volume 10.1 fL Neutrophils (%) (Auto) 68.1 % Lymphocytes (%) (Auto) 25.4 % Monocytes (%) (Auto) 6.2 % Eosinophils (%) (Auto) 0.0 % Basophils (%) (Auto) 0.3 % Neutrophils # (Auto) 2.66 K/uL Lymphocytes # (Auto) 0.99 K/uL Monocytes # (Auto) 0.24 K/uL Eosinophils # (Auto) 0.00 K/uL Basophils # (Auto) 0.01 K/uL Prothromb Time International Ratio 2.7 Prothrombin Time 27.5 SECONDS Assessment & Plan Assessment: 82 yo female with left shoulder and left knee DJD. Plan: Discussed with patient that effects of medicine may take up to 48 -72 hours to feel the effects. Pt understands. She can follow up with [facility] / Dr Lynn as needed. Ortho will sign off at this time.
[2017-08-28 11:47] VITALS: BP 110/52; PULSE 83; TEMP 36.5; O2SAT 98
[2017-08-28] MEDS ORDERED: CEFEPIME IV 1,000 MG in DEXTROSE 5% 100ML 100 ML IV SCH (14:00)
[2017-08-28 15:35] VITALS: BP 110/58; PULSE 88; TEMP 36.9; O2SAT 95
[2017-08-28 15:43] LABS: PTT PATIENT 66.9 SECONDS (21.0-31.0)
[2017-08-28] MEDS: WARFARIN SOD 1 MG TAB PO SCH (16:07)
[2017-08-28] MEDS: LACTOBACILLUS ACIDOPHILUS (FLORANEX) TAB PO SCH (17:00)
[2017-08-28] MEDS ORDERED: NURSING VERBAL MED ORDER ONE (17:00)
--- NOTE | 2017-08-28 18:13 | Progress Note ---
Medicine Progress Note Date & Time of Visit: Aug 28, 2017 at 18:11. Subjective Patient reports feeling SOB and having occasional cough. No overnight events noted. Tolerating PO. Has been ambulating in her room but still reports having pain in her shoulder and knee. Had a BM. Objective Last 8 Hrs Date Time Temp Pulse Resp B/P (MAP) Pulse Ox O2 Delivery O2 Flow Rate FiO2 08/28/17 16:00 Nasal Cannula 2.0 08/28/17 15:35 36.9 88 20 110/58 (75) 95 Nasal Cannula 3.0 08/28/17 12:00 Room Air 08/28/17 11:47 36.5 83 18 110/52 (71) 98 Room Air Physical Exam: GENERAL: Patient is in no acute distress. HEENT: No acute trauma, normocephalic, mucous membranes moist, no nasal congestion, no scleral icterus, conjunctivae clear. NECK: No stridor, trachea is midline. LUNGS: LLL crackles, no wheeze, no rhonchi HEART: Without murmurs gallops or rubs, regular rate and rhythm. ABDOMEN: Soft, nontender, bowel sounds positive, no hepatosplenomegaly EXTREMITIES: No cyanosis or edema, pain in left shoulder and knee; general weakness NEUROLOGIC: Oriented x 3, no acute motor or sensory deficits, no focal weakness. SKIN: No rash, no jaundice, no diaphoresis. Laboratory Results: Last 24 Hours Test 08/28/17 05:20 08/28/17 14:42 White Blood Count 3.90 K/uL Red Blood Count 2.59 M/uL Hemoglobin 7.9 g/dL Hematocrit 25.8 % Mean Corpuscular Volume 99.6 fL Mean Corpuscular Hemoglobin 30.5 pg Mean Corpuscular Hemoglobin Concent 30.6 g/dl Platelet Count 291 K/uL Mean Platelet Volume 10.1 fL Neutrophils (%) (Auto) 68.1 % Lymphocytes (%) (Auto) 25.4 % Monocytes (%) (Auto) 6.2 % Eosinophils (%) (Auto) 0.0 % Basophils (%) (Auto) 0.3 % Neutrophils # (Auto) 2.66 K/uL Lymphocytes # (Auto) 0.99 K/uL Monocytes # (Auto) 0.24 K/uL Eosinophils # (Auto) 0.00 K/uL Basophils # (Auto) 0.01 K/uL RDW Standard Deviation 51.4 fL RDW Coefficient of Variation 14.2 % Immature Granulocyte % (Auto) 0.0 % Immature Granulocyte # (Auto) 0.00 K/uL Red Blood Cell Morphology Unremarkable Prothrombin Time 27.5 SECONDS Prothromb Time International Ratio 2.7 Activated Partial Thromboplast Time 83.9 SECONDS 66.9 SECONDS Partial Thromboplastin Ratio 3.2 2.6 Sodium Level 135 mmol/L Potassium Level 4.1 mmol/L Chloride Level 101 mmol/L Carbon Dioxide Level 31 mmol/L Anion Gap 3.0 mmol/L Blood Urea Nitrogen 22 mg/dl Creatinine 1.38 mg/dl Est Creatinine Clear Calc Drug Dose 26.4 ml/min Estimated GFR () 40.6 Estimated GFR (Non- 35.0 BUN/Creatinine Ratio 16.1 Random Glucose 157 mg/dl Calcium Level 10.1 mg/dl Date/Time Source Procedure Growth Status 08/28/17 09:24 Nasal MRSA DNA Surveillance Screen - Final Specimen Positive for MRSA by DNA Probe Complete Assessment & Plan AGE INDETERMINATE PE: -possibly Acute -known hx of recurrent PE and previously has been on Coumadin which was last stopped in the summer of 2016 due to fall risk/chronic GI blood loss and being on hospice but no longer on hospice as per patient -chronic respiratory failure: Oxygen Dependency on 2L at baseline which is what she has been requiring here as well -previous attending discussed with the patient regarding anticoagulation in light of above and she and her son would prefer to continue Coumadin despite explaining the risks -continue IV heparin while in hospital -monitor H&H -patient's son to discuss about IVC filter with patient and family as an option if bleeding issues recur. -patient has refused endoscopy/colonoscopy -Hb: 8.1-->8.6-->9-->7.9 today from 9's on admission -on coumadin 2mg + IV heparin; INR is therapeutic today, will likely stop the drip tomorrow -transfuse PRBCs if Hb drops or is symptomatic -plan to discharge to home with Lovenox bridge and Coumadin if Hb stable -Pain control UTI: -on cefepime; vanco added to cover for possible pneumonia on CXR -Urine culture: Enterococcus -resistant to ceftriaxone on prior cultures LEFT SHOULDER PAIN: -X ray: Severe glenohumeral and moderate AC joint degenerative changes without acute fracture or subluxation. Chondrocalcinosis or calcified bursitis about the left glenohumeral joint. -PT/OT -pain control -patient also reports history of rotator cuff tear in the past -consulted Ortho for knee and shoulder pain and evaluation of whether patient would benefit from a joint injection; appreciate intervention CAD: -S/P prior CABG -Troponin X3: Negative -EKG: no acute ST changes -TTE: No segmental left ventricular wall motion abnormalities -continue current meds CKD STAGE III: -baseline Cr 1.3 - 1.4 -was slightly worse at 1.6 but trending down to baseline -monitor -avoid nephrotoxins when possible PRIOR AORTIC STENOSIS: -S/P TAVR -no acute issues PRIOR ENDOMETRIAL CA: -has been greater than 20 years ago and no longer followed -no related symptoms noted CHRONIC ANEMIA: -continue Iron supplements -likely a combination of anemia of CKD with anemia of blood loss and iron deficiency based on prior labs/hx -Patient has refused endoscopy despite having prior FOBT + -monitor H&H, transfuse as needed CHRONIC DIASTOLIC CHF: -not in exacerbation -continue lasix/current meds COPD: -Chronic Oxygen dependent -continue home inhalers -not in exacerbation CHRONIC MUSCULOSKELETAL PAIN -shoulder and knee pain -H/O Rotator cuff tear -H/O steroid Shots in the past -pain control -PT/OT -celecoxib held while on blood thinners Current Inpatient Medications: Current Inpatient Medications Medications (Trade) Dose Ordered Sig/Rosi Route Start Time Stop Time Status Last Admin Dose Admin Acetaminophen (Tylenol Tab) 650 mg Q4H PRN PO 08/22/17 15:30 09/21/17 15:29 08/24/17 18:51 650 MG Al Hydrox/Mg Hydrox/Simethicone (Maalox Max Susp) 15 ml Q4H PRN PO 08/22/17 15:30 09/21/17 15:29 Ondansetron HCl (Zofran Inj) 4 mg Q6H PRN IV 08/22/17 15:30 09/21/17 15:29 08/26/17 08:31 4 MG Nitroglycerin (Nitrostat Tab) 0.4 mg UD PRN SL 08/22/17 15:30 09/21/17 15:29 Polyethylene (Miralax Powder Packet) 17 gm DAILY PRN PO 08/22/17 15:30 09/21/17 15:29 Albuterol Sulfate (Ventolin 0.083% 2.5MG/3ML Neb) 2.5 mg QID PRN INH 08/22/17 15:30 09/21/17 15:29 08/24/17 04:26 2.5 MG Docusate Sodium (coLACE CAP) 100 mg BID PO 08/22/17 21:00 09/21/17 20:59 08/28/17 09:22 100 MG Fentanyl (Duragesic Patch) 25 mcg Q3D@1999 TD 08/22/17 20:00 09/05/17 19:59 08/25/17 21:24 25 MCG Ferrous Sulfate (Feosol Tab) 325 mg BID PO 08/22/17 21:00 09/21/17 20:59 08/28/17 07:51 325 MG Salmeterol Xinafoate/ Fluticasone (Advair Diskus 250/50 Inh) 1 puff BID INH 08/22/17 21:00 09/21/17 20:59 08/28/17 07:52 1 PUFF Furosemide (Lasix Tab) 40 mg DAILY PO 08/23/17 09:00 09/22/17 08:59 08/28/17 07:50 40 MG Lorazepam (Ativan Tab) 0.5 mg HS PRN PO 08/22/17 15:30 09/21/17 15:29 08/26/17 21:39 0.5 MG Magnesium Oxide (Mag-Ox Tab) 400 mg DAILY PO 08/23/17 09:00 09/22/17 08:59 08/28/17 07:50 400 MG Metoprolol Succinate (Toprol Xl Tab) 12.5 mg BID PO 08/22/17 21:00 09/21/17 20:59 08/28/17 07:51 12.5 MG Multivitamins (Multivitamin Tab) 1 tab DAILY PO 08/23/17 09:00 09/22/17 08:59 08/28/17 07:51 1 TAB Ondansetron HCl (Zofran Tab) 4 mg Q6 PRN PO 08/22/17 15:30 09/21/17 15:29 Pantoprazole Sodium (Protonix Tab) 40 mg DAILY PO 08/23/17 09:00 09/22/17 08:59 08/28/17 07:52 40 MG Senna (Senokot Tab) 8.6 mg BID PO 08/22/17 21:00 09/21/17 20:59 08/28/17 07:51 8.6 MG Ascorbic Acid (Vitamin C Tab) 250 mg DAILY PO 08/23/17 09:00 09/22/17 08:59 08/28/17 07:50 250 MG Mirtazapine (Remeron Solutab) 15 mg HS PO 08/22/17 21:00 09/21/17 20:59 08/27/17 20:57 15 MG Paroxetine HCl (pAXil TAB) 40 mg DAILY PO 08/23/17 09:00 09/22/17 08:59 08/28/17 07:50 40 MG Potassium Chloride (Klor-Con M10) 10 meq BID PO 08/22/17 21:00 09/21/17 20:59 08/28/17 07:52 10 MEQ Heparin Sodium/ Dextrose 500 ml @ 10 mls/hr Q24H PRN IV 08/22/17 17:15 09/21/17 17:14 08/25/17 22:03 14 MLS/HR Miscellaneous (Fentanyl Patch Remove & Waste) 1 ea Q3D@1959 N/A 08/22/17 19:59 09/21/17 19:58 08/25/17 19:59 1 EA Miscellaneous Information (Check Fentanyl Patch Placement) 1 ea QS N/A 08/23/17 00:00 09/22/17 00:00 08/28/17 16:08 1 EA Oxycodone/ Acetaminophen (Percocet 5-325mg Tab) 1 tab Q6H PRN PO 08/23/17 09:15 09/05/17 15:29 08/28/17 16:08 1 TAB Triamcinolone Acetonide (Nasacort Allergy 24hr) 2 sprays DAILY KELLY 08/25/17 12:45 09/24/17 12:44 08/28/17 07:51 2 SPRAYS Warfarin Sodium (Coumadin Tab) 1 mg DAILY@16 PO 08/28/17 16:00 09/22/17 15:59 08/28/17 16:07 1 MG Miscellaneous Information (Consult) 1 ea UD PRN N/A 08/28/17 08:00 09/27/17 07:59 Cefepime HCl 2000 mg/Syringe 20 ml @ 5 mls/min Q24H IV 08/28/17 09:00 09/04/17 08:59 08/28/17 09:23 5 MLS/MIN Lactobacillus Acidophilus (Floranex Tab) 1 tab TIDM PO 08/28/17 17:00 09/27/17 16:59
[2017-08-28 19:45] VITALS: BP 112/65; PULSE 81; TEMP 36.6; O2SAT 97
[2017-08-28] MEDS: FENTANYL PATCH REMOVE & WASTE SCH (20:05)
[2017-08-28] MEDS: FENTANYL 25 MCG/HR TDSY TD SCH (20:08)
[2017-08-28] MEDS: MIRTAZAPINE SOLTAB 15 MG PO SCH (21:14)
[2017-08-28 23:45] VITALS: BP 120/70; PULSE 76; TEMP 36.7; O2SAT 95
[2017-08-29] VITALS (13 sets, daily range): BP systolic 117–156; BP diastolic 60–81; PULSE 72–88; TEMP 36.3–36.7; O2SAT 95–98
[2017-08-29] MEDS: CHECK FENTANYL PATCH PLACEMENT SCH ×4 (00:10→23:57)
[2017-08-29 06:34] LABS: BASO % 0.3 %; BASO ABS # 0.03 K/uL (0-0.2); EOS % 0.1 %; EOS ABS # 0.01 K/uL (0-0.5); HEMATOCRIT 25.1 % (37-47); HEMOGLOBIN 7.6 g/dL (12.0-16.0); IG# 0.02 K/uL (0.00-0.02); LYMPH % 14.3 %; LYMPH ABS # 1.28 K/uL (1.2-3.4); MEAN CELL VOLUME 100.8 fL (80-100); MEAN CORPUSCULAR HEMOGLOBIN 30.5 pg (25-34); MEAN CORPUSCULAR HGB CONC 30.3 g/dl (32-36); MEAN PLATELET VOLUME 9.8 fL (7.4-10.4); MONO % 8.4 %; MONO ABS # 0.75 K/uL (0.11-0.59); NEUT % 76.7 %; NEUT ABS # 6.89 K/uL (1.4-6.5); PLATELET COUNT 296 K/uL (130-400); RED CELL DISTRIBUTION WIDTH CV 14.5 % (11.5-14.5); RED CELL DISTRIBUTION WIDTH SD 53.1 fL (36.4-46.3); WHITE BLOOD COUNT 8.98 K/uL (4.8-10.8)
[2017-08-29 07:00] LABS: INR 3.6 (0.9-1.1)
[2017-08-29] MEDS: HEPARIN 25,000 UNIT/500ML D5W 500 ML IV PRN (07:13)
[2017-08-29 07:15] LABS: CREATININE 1.35 mg/dl (0.60-1.20); POTASSIUM 4.4 mmol/L (3.5-5.1)
[2017-08-29] MEDS: OXYCODONE/ACETAMINOPHEN 5-325 TAB PO PRN ×2 (07:19→19:37)
[2017-08-29] MEDS ORDERED: ACETAMINOPHEN 325 MG TAB PO SCH (08:00)
[2017-08-29] MEDS: ASCORBIC ACID 500 MG TAB PO SCH (08:15)
[2017-08-29] MEDS: TRIAMCINOLONE ACET NASAL SPRAY 10.8ML BTL NAE SCH (08:15)
[2017-08-29] MEDS: FLUTICASONE/SALMETEROL 250/50 (ADVAIR) 14 PUFF/1 INHALER INH SCH ×2 (08:15→21:18)
[2017-08-29] MEDS: PANTOprazole SOD 40 MG TAB PO SCH (08:16)
[2017-08-29] MEDS: POTASSIUM CHLORIDE 10 MEQ TABCR PO SCH ×2 (08:16→21:21)
[2017-08-29] MEDS: MAGNESIUM OXIDE 400 MG TAB PO SCH (08:16)
[2017-08-29] MEDS: METOPROLOL SUCC 25MG EXT REL TAB PO SCH ×2 (08:16→21:22)
[2017-08-29] MEDS: SENNA 8.6 MG TAB PO SCH ×2 (08:16→21:22)
[2017-08-29] MEDS: MULTIVITAMIN TAB PO SCH (08:16)
[2017-08-29] MEDS: FERROUS SULFATE 325 MG TAB PO SCH ×2 (08:16→21:21)
[2017-08-29] MEDS: FUROSEMIDE 20 MG TAB PO SCH (08:17)
[2017-08-29] MEDS: LACTOBACILLUS ACIDOPHILUS (FLORANEX) TAB PO SCH ×3 (08:17→16:47)
[2017-08-29] MEDS: DOCUSATE SODIUM 100 MG CAP PO SCH ×2 (08:17→21:19)
[2017-08-29] MEDS: PAROXETINE 20 MG TAB PO SCH (08:17)
[2017-08-29] MEDS: CEFEPIME IV 2,000 MG in SYRINGE 7.5 ML IV SCH (08:23)
[2017-08-29] MEDS ORDERED: VANCOMYCIN INJ 1,000 MG in SODIUM CHLORIDE 0.9% 250ML 250 ML IV SCH (10:00)
--- NOTE | 2017-08-29 16:37 | Pharmacy Progress Note ---
Pharmacy Abx Dose Progress Nt Date of Service Aug 29, 2017. Pharmacy Dosing Scope The patient is currently receiving the following antimicrobial agents per Pharmacy consult: Vancomycin 1250 mg IV x 1 dose 08/28/17 @0930 with random AM levels to follow and guide dosing for pneumonia Objective Height (Feet): 5 Height (Inches): 1.00 Weight (Kilograms): 64.500 Vital Signs (Past 12Hrs) Vital Signs Past 12 Hours Date Time Temp Pulse Resp B/P (MAP) Pulse Ox O2 Delivery O2 Flow Rate FiO2 08/29/17 13:42 36.4 88 18 156/66 98 1.5 08/29/17 10:30 Nasal Cannula 2.0 08/29/17 09:34 36.6 85 18 143/74 (97) 98 Nasal Cannula 2.0 08/29/17 08:41 36.4 76 20 98 2.0 08/29/17 08:00 Nasal Cannula 2.0 08/29/17 07:36 36.4 76 20 134/60 (84) 98 Lab Results (24Hrs) Laboratory Tests (24 Hours) Test 08/29/17 06:17 White Blood Count 8.98 K/uL (4.8-10.8) Red Blood Count 2.49 M/uL (4.2-5.4) L Hemoglobin 7.6 g/dL (12.0-16.0) L Hematocrit 25.1 % (37-47) L Mean Corpuscular Volume 100.8 fL (80-100) H Mean Corpuscular Hemoglobin 30.5 pg (25-34) Mean Corpuscular Hemoglobin Concent 30.3 g/dl (32-36) L Platelet Count 296 K/uL (130-400) Mean Platelet Volume 9.8 fL (7.4-10.4) Neutrophils (%) (Auto) 76.7 % Lymphocytes (%) (Auto) 14.3 % Monocytes (%) (Auto) 8.4 % Eosinophils (%) (Auto) 0.1 % Basophils (%) (Auto) 0.3 % Neutrophils # (Auto) 6.89 K/uL (1.4-6.5) H Lymphocytes # (Auto) 1.28 K/uL (1.2-3.4) Monocytes # (Auto) 0.75 K/uL (0.11-0.59) H Eosinophils # (Auto) 0.01 K/uL (0-0.5) Basophils # (Auto) 0.03 K/uL (0-0.2) Micro Results Date/Time Source Procedure Growth Status 08/28/17 09:24 Nasal MRSA DNA Surveillance Screen - Final Specimen Positive for MRSA by DNA Probe Complete 08/24/17 10:30 Urine , Clean Catch Urine Culture - Final Enterococcus Faecalis Complete Risk Factors for Resistance * History of infection with a multidrug-resistant organism: MRSA, c. diff Assessment & Plan Assessment 82 year old female receiving Vancomycin for treatment of pneumonia Day # 09/09 of antimicrobial therapy Plan Vancomycin IV * Random level of 11.7 mcg/mL is subtherapeutic thus requiring re-dosing. * Change to 1000 mg (~15mg/kg) IV every 30 hours * Patient's renal function remains unchanged (CrCl ~27mL/min) * Estimated p'kinetic level: ke= 0.026/hr, t1/2= 26 hrs * Goal trough level for pneumonia : 15 to 20 mcg/mL * Trough level ordered for: 08/31/17 ~30 minutes before the 3rd maintenance dose. * Extended dosing interval selected due to likelihood of drug accumulation in CKD Stage 3. Pharmacy will continue to follow and will adjust dose/frequency as necessary. Thank you.
--- NOTE | 2017-08-29 18:24 | Progress Note ---
Medicine Progress Note Date & Time of Visit: Aug 29, 2017 at 18:24. Subjective Patient reports feeling SOB but is maintaining saturation on RA. No overnight events noted. Has not been out of bed much today. Still complains of pain in her shoulder and knee. No complaints of coughing. No other complaints noted. Objective Last 8 Hrs Date Time Temp Pulse Resp B/P (MAP) Pulse Ox O2 Delivery O2 Flow Rate FiO2 08/29/17 16:40 36.5 82 18 122/68 97 08/29/17 16:00 Nasal Cannula 2.0 08/29/17 15:45 36.6 82 18 121/65 95 08/29/17 14:45 36.4 83 18 117/64 96 08/29/17 14:00 36.3 81 18 122/64 95 08/29/17 13:45 36.7 84 16 120/69 96 08/29/17 13:42 36.4 88 18 156/66 98 1.5 08/29/17 10:30 Nasal Cannula 2.0 Physical Exam: GENERAL: Patient is in no acute distress. HEENT: No acute trauma, normocephalic, mucous membranes moist, no nasal congestion, no scleral icterus, conjunctivae clear. NECK: No stridor, trachea is midline. LUNGS: LLL crackles, no wheeze, no rhonchi HEART: Without murmurs gallops or rubs, regular rate and rhythm. ABDOMEN: Soft, nontender, bowel sounds positive, no hepatosplenomegaly EXTREMITIES: No cyanosis or edema, pain in left shoulder and knee; general weakness NEUROLOGIC: Oriented x 3, no acute motor or sensory deficits, no focal weakness. SKIN: No rash, no jaundice, no diaphoresis. Laboratory Results: Last 24 Hours Test 08/29/17 06:17 White Blood Count 8.98 K/uL Red Blood Count 2.49 M/uL Hemoglobin 7.6 g/dL Hematocrit 25.1 % Mean Corpuscular Volume 100.8 fL Mean Corpuscular Hemoglobin 30.5 pg Mean Corpuscular Hemoglobin Concent 30.3 g/dl Platelet Count 296 K/uL Mean Platelet Volume 9.8 fL Neutrophils (%) (Auto) 76.7 % Lymphocytes (%) (Auto) 14.3 % Monocytes (%) (Auto) 8.4 % Eosinophils (%) (Auto) 0.1 % Basophils (%) (Auto) 0.3 % Neutrophils # (Auto) 6.89 K/uL Lymphocytes # (Auto) 1.28 K/uL Monocytes # (Auto) 0.75 K/uL Eosinophils # (Auto) 0.01 K/uL Basophils # (Auto) 0.03 K/uL RDW Standard Deviation 53.1 fL RDW Coefficient of Variation 14.5 % Immature Granulocyte % (Auto) 0.2 % Immature Granulocyte # (Auto) 0.02 K/uL Red Blood Cell Morphology Unremarkable Prothrombin Time 36.8 SECONDS Prothromb Time International Ratio 3.6 Activated Partial Thromboplast Time 61.0 SECONDS Partial Thromboplastin Ratio 2.3 Sodium Level 138 mmol/L Potassium Level 4.4 mmol/L Chloride Level 103 mmol/L Carbon Dioxide Level 31 mmol/L Anion Gap 4.0 mmol/L Blood Urea Nitrogen 28 mg/dl Creatinine 1.35 mg/dl Est Creatinine Clear Calc Drug Dose 26.7 ml/min Estimated GFR () 41.7 Estimated GFR (Non- 36.0 BUN/Creatinine Ratio 20.5 Random Glucose 103 mg/dl Calcium Level 10.0 mg/dl Random Vancomycin Level 11.7 mcg/ml Assessment & Plan AGE INDETERMINATE PE: -possibly Acute -known hx of recurrent PE and previously has been on Coumadin which was last stopped in the summer of 2016 due to fall risk/chronic GI blood loss and being on hospice but no longer on hospice as per patient -chronic respiratory failure: Oxygen Dependency on 2L at baseline which is what she has been requiring here as well -previous attending discussed with the patient regarding anticoagulation in light of above and she and her son would prefer to continue Coumadin despite explaining the risks -continue IV heparin while in hospital -monitor H&H -patient's son to discuss about IVC filter with patient and family as an option if bleeding issues recur. -patient has refused endoscopy/colonoscopy -Hb: 8.1-->8.6-->9-->7.9-->7.4 today from 9's on admission -on coumadin + IV heparin; INR is therapeutic since yesterday, will stop the drip today -transfuse PRBCs 1 unit today -INR 3.6, hold coumadin today -pain control -discussed with the patient whether an IVC filter would be of benefit given her propensity to bleed even when she is not on coumadin UTI: -on cefepime; vanco added to cover for possible pneumonia on CXR -Urine culture: Enterococcus -resistant to ceftriaxone on prior cultures -on day #6 total of antibiotics LEFT SHOULDER PAIN: -X ray: Severe glenohumeral and moderate AC joint degenerative changes without acute fracture or subluxation. Chondrocalcinosis or calcified bursitis about the left glenohumeral joint. -PT/OT -pain control -patient also reports history of rotator cuff tear in the past -consulted Ortho for knee and shoulder pain and evaluation of whether patient would benefit from a joint injection; saw the patient and injected both joints, appreciate intervention CAD: -S/P prior CABG -Troponin X3: Negative -EKG: no acute ST changes -TTE: No segmental left ventricular wall motion abnormalities -continue current meds CKD STAGE III: -baseline Cr 1.3 - 1.4 -was slightly worse at 1.6 but trending down to baseline -monitor -avoid nephrotoxins when possible PRIOR AORTIC STENOSIS: -S/P TAVR -no acute issues PRIOR ENDOMETRIAL CA: -has been greater than 20 years ago and no longer followed -no related symptoms noted CHRONIC ANEMIA: -continue Iron supplements -likely a combination of anemia of CKD with anemia of blood loss and iron deficiency based on prior labs/hx -Patient has refused endoscopy despite having prior FOBT + -monitor H&H, transfuse as needed -Hb has been drifting down over the hospitalization, will need to transfuse today CHRONIC DIASTOLIC CHF: -not in exacerbation -continue lasix/current meds COPD: -Chronic Oxygen dependent -continue home inhalers -not in exacerbation CHRONIC MUSCULOSKELETAL PAIN -shoulder and knee pain -H/O Rotator cuff tear -H/O steroid Shots in the past -pain control -PT/OT -celecoxib held while on blood thinners Current Inpatient Medications: Current Inpatient Medications Medications (Trade) Dose Ordered Sig/Rosi Route Start Time Stop Time Status Last Admin Dose Admin Acetaminophen (Tylenol Tab) 650 mg Q4H PRN PO 08/22/17 15:30 09/21/17 15:29 08/24/17 18:51 650 MG Al Hydrox/Mg Hydrox/Simethicone (Maalox Max Susp) 15 ml Q4H PRN PO 08/22/17 15:30 09/21/17 15:29 Ondansetron HCl (Zofran Inj) 4 mg Q6H PRN IV 08/22/17 15:30 09/21/17 15:29 08/26/17 08:31 4 MG Nitroglycerin (Nitrostat Tab) 0.4 mg UD PRN SL 08/22/17 15:30 09/21/17 15:29 Polyethylene (Miralax Powder Packet) 17 gm DAILY PRN PO 08/22/17 15:30 09/21/17 15:29 Albuterol Sulfate (Ventolin 0.083% 2.5MG/3ML Neb) 2.5 mg QID PRN INH 08/22/17 15:30 09/21/17 15:29 08/24/17 04:26 2.5 MG Docusate Sodium (coLACE CAP) 100 mg BID PO 08/22/17 21:00 09/21/17 20:59 08/29/17 08:17 100 MG Fentanyl (Duragesic Patch) 25 mcg Q3D@2000 TD 08/22/17 20:00 09/05/17 19:59 08/28/17 20:08 25 MCG Ferrous Sulfate (Feosol Tab) 325 mg BID PO 08/22/17 21:00 09/21/17 20:59 08/29/17 08:16 325 MG Salmeterol Xinafoate/ Fluticasone (Advair Diskus 250/50 Inh) 1 puff BID INH 08/22/17 21:00 09/21/17 20:59 08/29/17 08:15 1 PUFF Furosemide (Lasix Tab) 40 mg DAILY PO 08/23/17 09:00 09/22/17 08:59 08/29/17 08:17 40 MG Lorazepam (Ativan Tab) 0.5 mg HS PRN PO 08/22/17 15:30 09/21/17 15:29 08/26/17 21:39 0.5 MG Magnesium Oxide (Mag-Ox Tab) 400 mg DAILY PO 08/23/17 09:00 09/22/17 08:59 08/29/17 08:16 400 MG Metoprolol Succinate (Toprol Xl Tab) 12.5 mg BID PO 08/22/17 21:00 09/21/17 20:59 08/29/17 08:16 12.5 MG Multivitamins (Multivitamin Tab) 1 tab DAILY PO 08/23/17 09:00 09/22/17 08:59 08/29/17 08:16 1 TAB Ondansetron HCl (Zofran Tab) 4 mg Q6 PRN PO 08/22/17 15:30 09/21/17 15:29 Pantoprazole Sodium (Protonix Tab) 40 mg DAILY PO 08/23/17 09:00 09/22/17 08:59 08/29/17 08:16 40 MG Senna (Senokot Tab) 8.6 mg BID PO 08/22/17 21:00 09/21/17 20:59 08/29/17 08:16 8.6 MG Ascorbic Acid (Vitamin C Tab) 250 mg DAILY PO 08/23/17 09:00 09/22/17 08:59 08/29/17 08:15 250 MG Mirtazapine (Remeron Solutab) 15 mg HS PO 08/22/17 21:00 09/21/17 20:59 08/28/17 21:14 15 MG Paroxetine HCl (pAXil TAB) 40 mg DAILY PO 08/23/17 09:00 09/22/17 08:59 08/29/17 08:17 40 MG Potassium Chloride (Klor-Con M10) 10 meq BID PO 08/22/17 21:00 09/21/17 20:59 08/29/17 08:16 10 MEQ Miscellaneous (Fentanyl Patch Remove & Waste) 1 ea Q3D@1959 N/A 08/22/17 19:59 09/21/17 19:58 08/28/17 20:05 1 EA Miscellaneous Information (Check Fentanyl Patch Placement) 1 ea QS N/A 08/23/17 00:00 09/22/17 00:00 08/29/17 16:47 1 EA Oxycodone/ Acetaminophen (Percocet 5-325mg Tab) 1 tab Q6H PRN PO 08/23/17 09:15 09/05/17 15:29 08/29/17 07:19 1 TAB Triamcinolone Acetonide (Nasacort Allergy 24hr) 2 sprays DAILY KELLY 08/25/17 12:45 09/24/17 12:44 08/29/17 08:15 2 SPRAYS Warfarin Sodium (Coumadin Tab) 1 mg DAILY@16 PO 08/28/17 16:00 09/22/17 15:59 Future hold 08/28/17 16:07 1 MG Miscellaneous Information (Consult) 1 ea UD PRN N/A 08/28/17 08:00 09/27/17 07:59 Cefepime HCl 2000 mg/Syringe 20 ml @ 5 mls/min Q24H IV 08/28/17 09:00 09/04/17 08:59 08/29/17 08:23 5 MLS/MIN Lactobacillus Acidophilus (Floranex Tab) 1 tab TIDM PO 08/28/17 17:00 09/27/17 16:59 08/29/17 16:47 1 TAB Vancomycin HCl 1000 mg/Sodium Chloride 270 ml @ 125 mls/hr Q30H IV 08/29/17 10:00 09/04/17 09:59 08/29/17 10:09 125 MLS/HR
[2017-08-29] MEDS: MIRTAZAPINE SOLTAB 15 MG PO SCH (21:23)
[2017-08-30 06:06] LABS: HEMATOCRIT 31.2 % (37-47); HEMOGLOBIN 9.4 g/dL (12.0-16.0); MEAN CELL VOLUME 98.4 fL (80-100); MEAN CORPUSCULAR HEMOGLOBIN 29.7 pg (25-34); MEAN CORPUSCULAR HGB CONC 30.1 g/dl (32-36); PLATELET COUNT 328 K/uL (130-400); RED CELL DISTRIBUTION WIDTH CV 16.6 % (11.5-14.5); RED CELL DISTRIBUTION WIDTH SD 60.1 fL (36.4-46.3); WHITE BLOOD COUNT 8.88 K/uL (4.8-10.8)
[2017-08-30 06:18] LABS: INR 2.7 (0.9-1.1)
[2017-08-30 06:47] LABS: CALCIUM 10.2 mg/dl (8.5-10.1); CREATININE 1.18 mg/dl (0.60-1.20); POTASSIUM 4.2 mmol/L (3.5-5.1)
--- NOTE | 2017-08-30 07:38 | DIAGNOSTIC IMAGING REPORT ---
CHEST ONE VIEW PORTABLE CLINICAL HISTORY: Pneumonia vs atelectasis LLL COMPARISON STUDY: Chest CT August 22, 2017 and chest radiograph August 27, 2017. FINDINGS: A large hiatal hernia is noted. Cardiomediastinal silhouette is stable. There is no pneumothorax. Bilateral rib fractures are noted. Hazy left basilar opacity likely reflects atelectasis or epicardial fat pad. There is no lobar consolidation. IMPRESSION: 1. No significant change in appearance of the chest. Hazy and linear bibasilar opacities which favor atelectasis. 2. Stable interstitial thickening which is likely chronic. 3. Trace bilateral pleural effusions. Electronically signed by: Pierce Abraham M.D. 08/30/2017 7:37 AM Dictated Date/Time: 08/30/2017 7:35 AM
[2017-08-30 07:39] VITALS: BP 132/78; PULSE 75; TEMP 36.3; O2SAT 98
[2017-08-30 08:00] VITALS: O2SAT 98
[2017-08-30] MEDS: CHECK FENTANYL PATCH PLACEMENT SCH ×2 (08:00→17:22)
[2017-08-30] MEDS: DOCUSATE SODIUM 100 MG CAP PO SCH ×2 (08:07→20:18)
[2017-08-30] MEDS: POTASSIUM CHLORIDE 10 MEQ TABCR PO SCH ×2 (08:08→20:21)
[2017-08-30] MEDS: FUROSEMIDE 20 MG TAB PO SCH (08:08)
[2017-08-30] MEDS: METOPROLOL SUCC 25MG EXT REL TAB PO SCH ×2 (08:08→20:22)
[2017-08-30] MEDS: ASCORBIC ACID 500 MG TAB PO SCH (08:11)
[2017-08-30] MEDS: MAGNESIUM OXIDE 400 MG TAB PO SCH (08:11)
[2017-08-30] MEDS: LACTOBACILLUS ACIDOPHILUS (FLORANEX) TAB PO SCH ×3 (08:11→17:22)
[2017-08-30] MEDS: PAROXETINE 20 MG TAB PO SCH (08:11)
[2017-08-30] MEDS: FERROUS SULFATE 325 MG TAB PO SCH ×2 (08:12→20:20)
[2017-08-30] MEDS: PANTOprazole SOD 40 MG TAB PO SCH (08:12)
[2017-08-30] MEDS: SENNA 8.6 MG TAB PO SCH ×2 (08:12→20:21)
[2017-08-30] MEDS: FLUTICASONE/SALMETEROL 250/50 (ADVAIR) 14 PUFF/1 INHALER INH SCH ×2 (08:12→20:17)
[2017-08-30] MEDS: TRIAMCINOLONE ACET NASAL SPRAY 10.8ML BTL NAE SCH (08:13)
[2017-08-30] MEDS: MULTIVITAMIN TAB PO SCH (08:13)
[2017-08-30] MEDS: CEFEPIME IV 2,000 MG in SYRINGE 7.5 ML IV SCH (08:13)
[2017-08-30] MEDS ORDERED: FUROSEMIDE INJ 40 MG in SYRINGE 0 ML IV ONE (09:00)
[2017-08-30] MEDS ORDERED: NURSING VERBAL MED ORDER ONE (09:30)
[2017-08-30] MEDS: OXYCODONE/ACETAMINOPHEN 5-325 TAB PO PRN ×2 (09:49→17:21)
[2017-08-30] MEDS: ACETAMINOPHEN 325 MG TAB PO PRN (13:06)
[2017-08-30 14:37] VITALS: BP 112/68; PULSE 87; TEMP 36.6; O2SAT 96
[2017-08-30] MEDS: WARFARIN SOD 1 MG TAB PO SCH (17:22)
--- NOTE | 2017-08-30 18:11 | Progress Note ---
Medicine Progress Note Date & Time of Visit: Aug 30, 2017 at 18:11. Subjective Patient is doing ok, reports feeling some shortness of breath and ongoing pain in her left shoulder and knee. She reports it does not feel as though it is better or worse following the injections. No other complaints today. No overnight events noted. Tolerating PO. Has been moving bowels without difficulty. Objective Last 8 Hrs Date Time Temp Pulse Resp B/P (MAP) Pulse Ox O2 Delivery O2 Flow Rate FiO2 08/30/17 16:00 Nasal Cannula 2.0 08/30/17 14:37 36.6 87 18 112/68 (83) 96 2.0 Physical Exam: GENERAL: Patient is in no acute distress. HEENT: No acute trauma, normocephalic, mucous membranes moist, no nasal congestion, no scleral icterus, conjunctivae clear. NECK: No stridor, trachea is midline. LUNGS: LLL crackles, no wheeze, no rhonchi HEART: Without murmurs gallops or rubs, regular rate and rhythm. ABDOMEN: Soft, nontender, bowel sounds positive, no hepatosplenomegaly EXTREMITIES: No cyanosis or edema, pain in left shoulder and knee; general weakness NEUROLOGIC: Oriented x 3, no acute motor or sensory deficits, no focal weakness. SKIN: No rash, no jaundice, no diaphoresis. Laboratory Results: Last 24 Hours Test 08/30/17 05:51 White Blood Count 8.88 K/uL Red Blood Count 3.17 M/uL Hemoglobin 9.4 g/dL Hematocrit 31.2 % Mean Corpuscular Volume 98.4 fL Mean Corpuscular Hemoglobin 29.7 pg Mean Corpuscular Hemoglobin Concent 30.1 g/dl RDW Standard Deviation 60.1 fL RDW Coefficient of Variation 16.6 % Platelet Count 328 K/uL Mean Platelet Volume 10.0 fL Prothrombin Time 28.0 SECONDS Prothromb Time International Ratio 2.7 Sodium Level 139 mmol/L Potassium Level 4.2 mmol/L Chloride Level 102 mmol/L Carbon Dioxide Level 34 mmol/L Anion Gap 3.0 mmol/L Blood Urea Nitrogen 37 mg/dl Creatinine 1.18 mg/dl Est Creatinine Clear Calc Drug Dose 30.3 ml/min Estimated GFR () 49.0 Estimated GFR (Non- 42.3 BUN/Creatinine Ratio 31.6 Random Glucose 95 mg/dl Calcium Level 10.2 mg/dl Assessment & Plan AGE INDETERMINATE PE: -possibly Acute -known hx of recurrent PE and previously has been on Coumadin which was last stopped in the summer of 2017 due to fall risk/chronic GI blood loss and being on hospice but no longer on hospice as per patient -chronic respiratory failure: Oxygen Dependency on 2L at baseline which is what she has been requiring here as well -previous attending discussed with the patient regarding anticoagulation in light of above and she and her son would prefer to continue Coumadin despite explaining the risks -continue IV heparin while in hospital -monitor H&H -patient's son to discuss about IVC filter with patient and family as an option if bleeding issues recur. -patient has refused endoscopy/colonoscopy -Hb: 8.1-->8.6-->9-->7.9-->7.4-->9.4 after 1 unit PRBCs -on coumadin + IV heparin; INR is therapeutic, off the heparin drip -INR 2.7, coumadin resumed today -pain control -discussed with the patient whether an IVC filter would be of benefit given her propensity to bleed even when she is not on coumadin UTI: -on cefepime; vanco added to cover for possible pneumonia on CXR -Urine culture: Enterococcus -resistant to ceftriaxone on prior cultures -on day #7 total of antibiotics; stopped today as course complete LEFT SHOULDER PAIN: -X ray: Severe glenohumeral and moderate AC joint degenerative changes without acute fracture or subluxation. Chondrocalcinosis or calcified bursitis about the left glenohumeral joint. -PT/OT -pain control -patient also reports history of rotator cuff tear in the past -consulted Ortho for knee and shoulder pain and evaluation of whether patient would benefit from a joint injection; saw the patient and injected both joints, appreciate intervention CAD: -S/P prior CABG -Troponin X3: Negative -EKG: no acute ST changes -TTE: No segmental left ventricular wall motion abnormalities -continue current meds CKD STAGE III: -baseline Cr 1.3 - 1.4 -highest was 1.6 but has returned down to baseline -monitor -avoid nephrotoxins when possible PRIOR AORTIC STENOSIS: -S/P TAVR -no acute issues PRIOR ENDOMETRIAL CA: -has been greater than 20 years ago and no longer followed -no related symptoms noted CHRONIC ANEMIA: -continue Iron supplements -likely a combination of anemia of CKD with anemia of blood loss and iron deficiency based on prior labs/hx -Patient has refused endoscopy despite having prior FOBT + -monitor H&H, transfuse as needed -Hb has been drifting down over the hospitalization to 7.4, was transfused yesterday with 1 unit PRBCs and Hb increased to 9.4 CHRONIC DIASTOLIC CHF: -not in exacerbation -continue lasix/current meds COPD: -Chronic Oxygen dependent -continue home inhalers -not in exacerbation CHRONIC MUSCULOSKELETAL PAIN -shoulder and knee pain -H/O Rotator cuff tear -H/O steroid Shots in the past -pain control -PT/OT -celecoxib held while on blood thinners Current Inpatient Medications: Current Inpatient Medications Medications (Trade) Dose Ordered Sig/Rosi Route Start Time Stop Time Status Last Admin Dose Admin Acetaminophen (Tylenol Tab) 650 mg Q4H PRN PO 08/22/17 15:30 09/21/17 15:29 08/30/17 13:06 650 MG Al Hydrox/Mg Hydrox/Simethicone (Maalox Max Susp) 15 ml Q4H PRN PO 08/22/17 15:30 09/21/17 15:29 Ondansetron HCl (Zofran Inj) 4 mg Q6H PRN IV 08/22/17 15:30 09/21/17 15:29 08/26/17 08:31 4 MG Nitroglycerin (Nitrostat Tab) 0.4 mg UD PRN SL 08/22/17 15:30 09/21/17 15:29 Polyethylene (Miralax Powder Packet) 17 gm DAILY PRN PO 08/22/17 15:30 09/21/17 15:29 Albuterol Sulfate (Ventolin 0.083% 2.5MG/3ML Neb) 2.5 mg QID PRN INH 08/22/17 15:30 09/21/17 15:29 08/24/17 04:26 2.5 MG Docusate Sodium (coLACE CAP) 100 mg BID PO 08/22/17 21:00 09/21/17 20:59 08/30/17 08:07 100 MG Fentanyl (Duragesic Patch) 25 mcg Q3D@1999 TD 08/22/17 20:00 09/05/17 19:59 08/28/17 20:08 25 MCG Ferrous Sulfate (Feosol Tab) 325 mg BID PO 08/22/17 21:00 09/21/17 20:59 08/30/17 08:12 325 MG Salmeterol Xinafoate/ Fluticasone (Advair Diskus 250/50 Inh) 1 puff BID INH 08/22/17 21:00 09/21/17 20:59 08/30/17 08:12 1 PUFF Furosemide (Lasix Tab) 40 mg DAILY PO 08/23/17 09:00 09/22/17 08:59 08/30/17 08:08 40 MG Lorazepam (Ativan Tab) 0.5 mg HS PRN PO 08/22/17 15:30 09/21/17 15:29 08/26/17 21:39 0.5 MG Magnesium Oxide (Mag-Ox Tab) 400 mg DAILY PO 08/23/17 09:00 09/22/17 08:59 08/30/17 08:11 400 MG Metoprolol Succinate (Toprol Xl Tab) 12.5 mg BID PO 08/22/17 21:00 09/21/17 20:59 08/30/17 08:08 12.5 MG Multivitamins (Multivitamin Tab) 1 tab DAILY PO 08/23/17 09:00 09/22/17 08:59 08/30/17 08:13 1 TAB Ondansetron HCl (Zofran Tab) 4 mg Q6 PRN PO 08/22/17 15:30 09/21/17 15:29 Pantoprazole Sodium (Protonix Tab) 40 mg DAILY PO 08/23/17 09:00 09/22/17 08:59 08/30/17 08:12 40 MG Senna (Senokot Tab) 8.6 mg BID PO 08/22/17 21:00 09/21/17 20:59 08/30/17 08:12 8.6 MG Ascorbic Acid (Vitamin C Tab) 250 mg DAILY PO 08/23/17 09:00 09/22/17 08:59 08/30/17 08:11 250 MG Mirtazapine (Remeron Solutab) 15 mg HS PO 08/22/17 21:00 09/21/17 20:59 08/29/17 21:23 15 MG Paroxetine HCl (pAXil TAB) 40 mg DAILY PO 08/23/17 09:00 09/22/17 08:59 08/30/17 08:11 40 MG Potassium Chloride (Klor-Con M10) 10 meq BID PO 08/22/17 21:00 09/21/17 20:59 08/30/17 08:08 10 MEQ Miscellaneous (Fentanyl Patch Remove & Waste) 1 ea Q3D@1959 N/A 08/22/17 19:59 09/21/17 19:58 08/28/17 20:05 1 EA Miscellaneous Information (Check Fentanyl Patch Placement) 1 ea QS N/A 08/23/17 00:00 09/22/17 00:00 08/30/17 17:22 1 EA Oxycodone/ Acetaminophen (Percocet 5-325mg Tab) 1 tab Q6H PRN PO 08/23/17 09:15 09/05/17 15:29 08/30/17 17:21 1 TAB Triamcinolone Acetonide (Nasacort Allergy 24hr) 2 sprays DAILY KELLY 08/25/17 12:45 09/24/17 12:44 08/30/17 08:13 2 SPRAYS Warfarin Sodium (Coumadin Tab) 1 mg DAILY@16 PO 08/28/17 16:00 09/22/17 15:59 Future hold 08/30/17 17:22 1 MG Lactobacillus Acidophilus (Floranex Tab) 1 tab TIDM PO 08/28/17 17:00 09/27/17 16:59 08/30/17 17:22 1 TAB
[2017-08-30 20:10] VITALS: O2SAT 96
[2017-08-30 20:16] VITALS: BP 130/73; PULSE 83
[2017-08-30] MEDS: MIRTAZAPINE SOLTAB 15 MG PO SCH (20:22)
[2017-08-30] MEDS: LORAZEPAM 0.5 MG TAB PO PRN (21:26)
[2017-08-30 23:18] VITALS: BP 114/65; PULSE 86; TEMP 36.7; O2SAT 96
[2017-08-31] MEDS: CHECK FENTANYL PATCH PLACEMENT SCH ×3 (00:05→15:38)
[2017-08-31 00:39] VITALS: O2SAT 96
[2017-08-31 06:01] LABS: HEMATOCRIT 29.8 % (37-47); HEMOGLOBIN 9.1 g/dL (12.0-16.0); MEAN CELL VOLUME 98.7 fL (80-100); MEAN CORPUSCULAR HEMOGLOBIN 30.1 pg (25-34); MEAN CORPUSCULAR HGB CONC 30.5 g/dl (32-36); MEAN PLATELET VOLUME 9.6 fL (7.4-10.4); PLATELET COUNT 327 K/uL (130-400); RED CELL DISTRIBUTION WIDTH CV 16.2 % (11.5-14.5); WHITE BLOOD COUNT 8.77 K/uL (4.8-10.8)
[2017-08-31 06:10] LABS: INR 1.8 (0.9-1.1)
[2017-08-31 06:38] LABS: CALCIUM 10.1 mg/dl (8.5-10.1); CREATININE 1.36 mg/dl (0.60-1.20); POTASSIUM 4.3 mmol/L (3.5-5.1)
[2017-08-31 07:39] VITALS: BP 118/70; PULSE 78; TEMP 36.3; O2SAT 98
[2017-08-31] MEDS: FLUTICASONE/SALMETEROL 250/50 (ADVAIR) 14 PUFF/1 INHALER INH SCH (08:39)
[2017-08-31] MEDS: TRIAMCINOLONE ACET NASAL SPRAY 10.8ML BTL NAE SCH (08:39)
[2017-08-31] MEDS: DOCUSATE SODIUM 100 MG CAP PO SCH (08:40)
[2017-08-31] MEDS: LACTOBACILLUS ACIDOPHILUS (FLORANEX) TAB PO SCH ×3 (08:41→17:26)
[2017-08-31] MEDS: FERROUS SULFATE 325 MG TAB PO SCH (08:41)
[2017-08-31] MEDS: POTASSIUM CHLORIDE 10 MEQ TABCR PO SCH (08:42)
[2017-08-31] MEDS: METOPROLOL SUCC 25MG EXT REL TAB PO SCH (08:43)
[2017-08-31] MEDS: MAGNESIUM OXIDE 400 MG TAB PO SCH (08:44)
[2017-08-31] MEDS: SENNA 8.6 MG TAB PO SCH (08:44)
[2017-08-31] MEDS: FUROSEMIDE 20 MG TAB PO SCH (08:45)
[2017-08-31] MEDS: PAROXETINE 20 MG TAB PO SCH (08:46)
[2017-08-31] MEDS: MULTIVITAMIN TAB PO SCH (08:46)
[2017-08-31] MEDS: PANTOprazole SOD 40 MG TAB PO SCH (08:46)
[2017-08-31] MEDS: ASCORBIC ACID 500 MG TAB PO SCH (08:47)
[2017-08-31] MEDS: OXYCODONE/ACETAMINOPHEN 5-325 TAB PO PRN ×2 (09:39→15:49)
[2017-08-31] MEDS: WARFARIN SOD 1 MG TAB PO SCH (15:40)
--- NOTE | 2017-08-31 15:53 | Discharge Summary ---
Discharge Summary Date of Service Aug 31, 2017. Discharge Summary Admission Date: Aug 22, 2017 at 15:27 Discharge Disposition: Home with services Principal Diagnosis: UTI, Subacute PE, Anemia, atelectasis, deconditioning Pending Studies/Follow-Up: Needs home health nurse to draw PT/INR on Thursday with results to be forwarded to Dilma Ramos at the [facility] AGE INDETERMINATE PE: -possibly Acute -known hx of recurrent PE and previously has been on Coumadin which was last stopped in the summer of 2016 due to fall risk/chronic GI blood loss and being on hospice but no longer on hospice as per patient -chronic respiratory failure: Oxygen Dependency on 2L at baseline which is what she has been requiring here as well -previous attending discussed with the patient regarding anticoagulation in light of above and she and her son would prefer to continue Coumadin despite explaining the risks -continue IV heparin while in hospital -monitor H&H -patient's son to discuss about IVC filter with patient and family as an option if bleeding issues recur. -patient has refused endoscopy/colonoscopy repeat; prior scopes done did show evidence of upper GI bleeding -Hb: 8.1-->8.6-->9-->7.9-->7.4-->9.4-->9.1 -on coumadin + IV heparin; INR was therapeutic, off the heparin drip -INR 1.8, coumadin resumed yesterday -pain control -discussed with the patient whether an IVC filter would be of benefit given her propensity to bleed even when she is not on coumadin UTI: -on cefepime; vanco added to cover for possible pneumonia on CXR -Urine culture: Enterococcus -resistant to ceftriaxone on prior cultures -completed 7 days total of antibiotics; stopped as course complete LEFT SHOULDER PAIN: -X ray: Severe glenohumeral and moderate AC joint degenerative changes without acute fracture or subluxation. Chondrocalcinosis or calcified bursitis about the left glenohumeral joint. -PT/OT -pain control -patient also reports history of rotator cuff tear in the past -consulted Ortho for knee and shoulder pain and evaluation of whether patient would benefit from a joint injection; saw the patient and injected both joints, appreciate intervention CAD: -S/P prior CABG -Troponin X3: Negative -EKG: no acute ST changes -TTE: No segmental left ventricular wall motion abnormalities -continue current meds CKD STAGE III: -baseline Cr 1.3 - 1.4 -highest was 1.6 but has returned down to baseline -monitor -avoid nephrotoxins when possible PRIOR AORTIC STENOSIS: -S/P TAVR -no acute issues PRIOR ENDOMETRIAL CA: -has been greater than 20 years ago and no longer followed -no related symptoms noted CHRONIC ANEMIA: -continue Iron supplements -likely a combination of anemia of CKD with anemia of blood loss and iron deficiency based on prior labs/hx -Patient has refused endoscopy despite having prior FOBT + -monitor H&H, transfuse as needed -Hb has been drifting down over the hospitalization to 7.4, was transfused with 1 unit PRBCs CHRONIC DIASTOLIC CHF: -not in exacerbation -continue lasix/current meds COPD: -Chronic Oxygen dependent -continue home inhalers -not in exacerbation CHRONIC MUSCULOSKELETAL PAIN -shoulder and knee pain -H/O Rotator cuff tear -H/O steroid Shots in the past -pain control -PT/OT -celecoxib held while on blood thinners Total time spent on discharge = 39 This includes examination of the patient, discharge planning, medication reconciliation, and communication with other providers. Discharge Instructions 08/31/17 05:43 08/31/17 05:43 Test 08/31/17 05:43 Red Blood Count 3.02 M/uL (4.2-5.4) Mean Corpuscular Volume 98.7 fL (80-100) Mean Corpuscular Hemoglobin 30.1 pg (25-34) Mean Corpuscular Hemoglobin Concent 30.5 g/dl (32-36) RDW Standard Deviation 58.0 fL (36.4-46.3) RDW Coefficient of Variation 16.2 % (11.5-14.5) Mean Platelet Volume 9.6 fL (7.4-10.4) Prothrombin Time 18.6 SECONDS (9.0-12.0) Prothromb Time International Ratio 1.8 (0.9-1.1) Anion Gap 4.0 mmol/L (3-11) Est Creatinine Clear Calc Drug Dose 26.3 ml/min Estimated GFR () 41.3 Estimated GFR (Non- 35.6 BUN/Creatinine Ratio 24.2 (10-20) Calcium Level 10.1 mg/dl (8.5-10.1)
[2017-08-31] MEDS ORDERED: GABA1CAP PO (15:59)
[2017-08-31] MEDS ORDERED: TRIA1SPR4 NAE (15:59)
[2017-08-31] MEDS ORDERED: WARF4TAB44 PO (15:59)
[2017-08-31] MEDS ORDERED: LCTX PO (15:59)
[2017-08-31] MEDS ORDERED: MRLP17X PO (15:59)
--- NOTE | 2017-08-31 16:06 | Discharge Instructions ---
Discharge Instructions Date of Service Aug 31, 2017. Admission Reason for Admission: Dehydration, Pulmonary Embolism Discharge Discharge Diagnosis / Problem: Pulmonary embolism, urinary tract infection Discharge Goals Goal(s): Therapeutic intervention Activity Recommendations Activity Limitations: as noted below Lifting Limitations: gradually increase as tolerated Exercise/Sports Limitations: gradually increase as tolerated . Instructions / Follow-Up Instructions / Follow-Up Please see Dr. Inman on September 04 at 12:45 PM for hospital follow up Please have blood drawn by home nursing on Thursday to check PT and INR for the coagulation clinic Current Hospital Diet Patient's current hospital diet: AHA Diet (Heart Healthy) Discharge Diet Recommended Diet: AHA Diet (Heart Healthy) Pending Studies Studies pending at discharge: no Medical Emergencies . Who to Call and When: Medical Emergencies: If at any time you feel your situation is an emergency, please call 911 immediately. . Non-Emergent Contact Non-Emergency issues call your: Primary Care Provider . . "Provider Documentation" section prepared by Cara Alonzo. . VTE Core Measure Inpt VTE Proph given/why not?: Warfarin (Coumadin), Other Anticoagulation
[2017-08-31 16:10] VITALS: BP 117/76; PULSE 85; TEMP 36.5; O2SAT 98
[2017-08-31 16:57] VITALS: BP 117/76; PULSE 85; TEMP 36.5; O2SAT 98
[2017-08-31] MEDS: FENTANYL PATCH REMOVE & WASTE SCH (17:25)
[2017-08-31] MEDS: FENTANYL 25 MCG/HR TDSY TD SCH (17:27)
[2017-08-31] MEDS ORDERED: VANCOMYCIN TROUGH ONE (21:30)
== END 2017-08-31 19:00 | disposition home health service (06) | DRG 176 ==
LOC: C.EDB 11:41 → C.2E 15:27 → ENRESERV 15:44 → C.4E 08-29 09:21
PROVIDERS: ADMIT Internal Medicine; ATTEND Internal Medicine
DX: I26.99 Other pulmonary embolism without acute cor pulmonale (principal); D68.2 Hereditary deficiency of other clotting factors; J96.11 Chronic respiratory failure with hypoxia; I50.32 Chronic diastolic (congestive) heart failure; N39.0 Urinary tract infection, site not specified; J98.11 Atelectasis; I25.10 Atherosclerotic heart disease of native coronary artery without angina pectoris; N18.3 Chronic kidney disease, stage 3 (moderate); F32.9 Major depressive disorder, single episode, unspecified; E78.5 Hyperlipidemia, unspecified; K21.9 Gastro-esophageal reflux disease without esophagitis; K58.9 Irritable bowel syndrome, unspecified; M81.0 Age-related osteoporosis without current pathological fracture; K44.9 Diaphragmatic hernia without obstruction or gangrene; D64.9 Anemia, unspecified; E83.52 Hypercalcemia; M19.012 Primary osteoarthritis, left shoulder; A49.02 Methicillin resistant Staphylococcus aureus infection, unspecified site; M17.12 Unilateral primary osteoarthritis, left knee; E86.0 Dehydration; G89.29 Other chronic pain; J44.9 Chronic obstructive pulmonary disease, unspecified; Z85.828 Personal history of other malignant neoplasm of skin; Z87.440 Personal history of urinary (tract) infections; Z86.711 Personal history of pulmonary embolism; Z85.44 Personal history of malignant neoplasm of other female genital organs; Z90.710 Acquired absence of both cervix and uterus; Z83.3 Family history of diabetes mellitus; Z82.49 Family history of ischemic heart disease and other diseases of the circulatory system; Z80.9 Family history of malignant neoplasm, unspecified; Z99.81 Dependence on supplemental oxygen

== ENCOUNTER 2017-09-21 10:00 | Observation (INO) | payer OTHER, BC ==
[~2017-09-21] VITALS: Ht 154.9 cm; Wt 60.1 kg
[~2017-09-21 10:00] MED LIST changes: -ACET-1346 PO; -ADVIN25/60 INH; -ALBINS/ INH; -DRGTP12 TD; -FURO-85 PO; -LAXATIVES PO; +LCTX PO; -LORA0.5T12 PO; -MAGN400T6 PO; +MRLP17X PO; -ONDA4TAB46 PO; -OXGN; -OXYC-57 PO; -PANT40TA PO; -POTA1CAP2 PO; -PRX/40 PO; -SENN-61 PO; +TRIA1SPR4 NAE; +WARF4TAB44 PO
[2017-09-21] MEDS ORDERED: CIPR250T3 PO (10:44)
[2017-09-21] MEDS ORDERED: GABA-112 PO (10:45)
[2017-09-21] MEDS ORDERED: WARF1TAB6 PO (10:48)
[2017-09-21] MEDS ORDERED: PANT40TA PO (10:49)
[2017-09-21 11:15] LABS: BASO % 0.5 %; BASO ABS # 0.04 K/uL (0-0.2); EOS % 6.4 %; EOS ABS # 0.54 K/uL (0-0.5); HEMATOCRIT 27.8 % (37-47); HEMOGLOBIN 8.6 g/dL (12.0-16.0); IG# 0.02 K/uL (0.00-0.02); LYMPH % 18.3 %; LYMPH ABS # 1.54 K/uL (1.2-3.4); MEAN CELL VOLUME 100.4 fL (80-100); MEAN CORPUSCULAR HGB CONC 30.9 g/dl (32-36); MEAN PLATELET VOLUME 9.3 fL (7.4-10.4); MONO % 11.5 %; MONO ABS # 0.97 K/uL (0.11-0.59); NEUT % 63.1 %; NEUT ABS # 5.31 K/uL (1.4-6.5); PLATELET COUNT 315 K/uL (130-400); RED CELL DISTRIBUTION WIDTH CV 15.4 % (11.5-14.5); RED CELL DISTRIBUTION WIDTH SD 55.6 fL (36.4-46.3); WHITE BLOOD COUNT 8.42 K/uL (4.8-10.8)
[2017-09-21 11:32] LABS: ALBUMIN 2.9 gm/dl (3.4-5.0); AST/SGOT 29 U/L (15-37); BLOOD UREA NITROGEN 41 mg/dl (7-18); CALCIUM 10.6 mg/dl (8.5-10.1); CARBON DIOXIDE 32 mmol/L (21-32); CREATININE 1.39 mg/dl (0.60-1.20); GLUCOSE 112 mg/dl (70-99); POTASSIUM 4.1 mmol/L (3.5-5.1); SODIUM 140 mmol/L (136-145)
[2017-09-21 11:37] LABS: ALKALINE PHOSPHATASE 96 U/L (45-117); ALT/SGPT 27 U/L (12-78)
[2017-09-21 11:39] LABS: INR 1.2 (0.9-1.1); PTT PATIENT 24.1 SECONDS (21.0-31.0)
[2017-09-21] MEDS ORDERED: ACET-1346 PO (11:48)
[2017-09-21] MEDS ORDERED: SENN-61 PO (11:59)
[2017-09-21] MEDS ORDERED: ADVIN25/60 INH (12:48)
[2017-09-21] MEDS ORDERED: PRX/40 PO (12:48)
[2017-09-21] MEDS ORDERED: FNTTP25 TOP (13:07)
--- NOTE | 2017-09-21 13:40 | History and Physical ---
History & Physical Date & Time of Service: Sep 21, 2017 at 13:40 Chief Complaint: Nose Bleed Primary Care Physician: Myrna Inman M.D. History of Present Illness Source: patient Patient is an 82 Yr female with Multiple comorbidities and complex history who was recently discharged from [facility] after being treated for recurrent PE, UTI presents with history of epistaxis which started this morning. Patient reports she noticed nose bleed after blowing her nose as she felt congested. She is coumadin therapy for recurrent PE. She has also been using Nasacort for nasal congestion. She reports bleeding stopped spontaneously with application of pressure. She denies use of Aspirin, NSAIDs recently. Also has history of chronic melena and refused work up (Endoscopy/Colonoscopy) on multiple occasions. Denies any history of BRBPR, hematuria, hemoptysis but continues to have melena. She was previously stopped on Coumadin for H/O GI bleed requiring transfusions and was placed on Aspirin but during the last admission, patient restarted on Coumadin for recurrent PE per patient's request despite explaining the risks for bleeding. Hb is noted to be at baseline today and currently no active bleeding while in ED. She is currently on Cipro for recently diagnosed UTI. She complains of generalized weakness and pain since 2 days with associated mild dizziness and nausea. Continues to have melena since many years , last BM was yesterday. Denies any history of chest pain, SOB, abdominal pain, cough, dysuria, fever, chills, rhinitis, diarrhea. She is on Iron replacement therapy. Past Medical/Surgical History Medical Problems: (1) Anemia Status: Chronic (2) Angiectasia Permanent Comment: on colonoscopy 05/2013 Status: Chronic (3) Aortic stenosis Permanent Comment: moderately severe by echo December 2013 Status: Chronic (4) Basal cell carcinoma Permanent Comment: s/p MOHS surgery Status: Resolved (5) Benign hypertension Status: Chronic (6) CAD (coronary artery disease) Permanent Comment: s/p RCA stent 2011 Status: Chronic (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 Status: Chronic (8) CKD (chronic kidney disease) stage 3, GFR 30-59 ml/min Status: Chronic (9) Depression Status: Chronic (10) Diverticulosis Colon (W/O Ment Of Hemorrhage) Status: Chronic (11) Dyslipidemia Status: Chronic (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, 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 Status: Chronic (13) Falls Status: Chronic (14) Gastroparesis Status: Chronic (15) GERD (gastroesophageal reflux disease) Status: Chronic (16) Hiatal hernia Status: Chronic (17) History of acute minda lesion Permanent Comment: 06/2013 Status: Chronic (18) History of endometrial cancer Permanent Comment: s/p radiation and total hysterectomy Status: Chronic (19) History of GI bleed Status: Chronic (20) History of pulmonary embolism Permanent Comment: x 2 Status: Chronic (21) IBS (irritable bowel syndrome) Status: Chronic (22) Obstructive lung disease Status: Chronic (23) Osteoporosis Status: Chronic (24) Polyarthritis Permanent Comment: on chronic prednisone Status: Chronic (25) Recurrent UTI Status: Chronic (26) Temporal arteritis Status: Chronic Surgical Problems: (1) Hx of cystoscopy Status: Chronic (2) S/P left knee arthroscopy Status: Chronic (3) S/P TAVR (transcatheter aortic valve replacement) Permanent Comment: due to severe aortic stenosis Status: Chronic (4) Status post cataract extraction Status: Chronic (5) Status post coronary artery stent placement Status: Chronic (6) Status post hysterectomy Status: Chronic Family History Cancer Diabetes mellitus FH: cardiovascular disease MOTHER Gallbladder disease Hypertension Reviewed Social History Smoking Status: Never Smoker Alcohol Use: none Drug Use: none Marital Status: Housing status: lives alone Occupational Status: retired Immunizations History of Influenza Vaccine: Yes Influenza Vaccine Date: Apr 18, 2016 History of Tetanus Vaccine?: Yes Tetanus Immunization Date: Nov 27, 2008 History of Pneumococcal: Yes Pneumococcal Date: Apr 21, 2016 History of Hepatitis B Vaccine: Yes Multi-Drug Resistant Organisms History of MDRO: Yes Type of MDRO: MRSA Allergies Coded Allergies: Cefdinir (Verified Allergy, Mild, RASH-HAS HAD ROCEPHIN,CEFEPIME MANY TIMES, 09/21/17) Clonazepam (Verified Allergy, Unknown, ., 09/21/17) Levofloxacin (Verified Allergy, Unknown, unknown, 09/21/17) Sulfasalazine (Verified Allergy, Unknown, ., 09/21/17) Metoclopramide (Verified Adverse Reaction, Intermediate, TREMORS, 09/21/17) Home Medications Scheduled Ascorbic Acid (Ascorbic Acid), 250 MG PO DAILY Ciprofloxacin (Cipro), 250 MG PO BID Docusate Sodium (Colace), 1 CAP PO BID Fentanyl (Fentanyl), 25 MCG TOP [id number] Ferrous Sulfate (Ferrous Sulfate), 325 MG PO BID Fluticasone Prop/Salmeterol (Advair Diskus 250/50 60 Dose), 1 PUFF INH BID Furosemide (Lasix), 40 MG PO DAILY Gabapentin (Neurontin), 100 MG PO DAILY Home O2 Therapy (Oxygen), 2 LITERS NA UD Lactobacillus Acidophilus (Floranex), 1 TAB PO TIDM Magnesium Oxide (Mag-Ox), 400 MG PO DAILY Metoprolol Succinate (Metoprolol Succinate ER), 12.5 MG PO BID Mirtazapine Soltab (Remeron Soltab), 15 MG PO HS Multiple Vitamin (Multivitamin), 0.5 TABLET PO DAILY Pantoprazole (Protonix), 40 MG PO DAILY Paroxetine (Paroxetine HCl), 40 MG PO DAILY Potassium Chloride (Potassium Chloride Er), 10 MEQ PO BID Senna (Senokot), 1 TAB PO BID Triamcinolone Acetonide (Nasal (Nasacort Allergy 24Hr), 2 SPRAYS KELLY DAILY Warfarin Sod (Jantoven), Unknown Dose PO DAILY Scheduled PRN Acetaminophen (Acetaminophen), 650 MG PO for Pain Albuterol Sulf (Proventil 0.083% 2.5MG/3ML), 2.5 MG INH QID PRN for SOB/Wheezing Lorazepam (Lorazepam), 0.5 MG PO HS PRN for Insomnia Ondansetron Hcl (Zofran), 4 MG PO Q6 PRN for Nausea Oxycodone/Acetaminophen 5MG/325MG (Percocet 5MG/325MG), 1 TABLET PO Q8H PRN for Pain Polyethylene (Miralax), 17 GM PO DAILY PRN for Constipation Review of Systems See HPI for pertinent positives & negatives. A total of 10 systems reviewed and were otherwise negative. Physical Exam Vital Signs Date Time Temp Pulse Resp B/P (MAP) Pulse Ox O2 Delivery O2 Flow Rate FiO2 09/21/17 13:20 80 23 09/21/17 13:15 70 19 92 09/21/17 13:10 71 22 91 09/21/17 13:05 68 15 92 09/21/17 13:05 70 09/21/17 13:01 123/58 09/21/17 13:00 70 13 92 Room Air 09/21/17 12:30 70 16 130/64 95 Room Air 09/21/17 11:42 71 16 109/57 93 Room Air 09/21/17 10:56 75 09/21/17 10:51 78 24 114/60 96 Room Air 09/21/17 10:05 36.3 110 20 124/64 99 Room Air General Appearance: no apparent distress, + thin, + pertinent finding (Chronic ill appearing) Head: normocephalic, atraumatic Eyes: normal inspection, PERRL, EOMI ENT: normal ENT inspection, hearing grossly normal Neck: supple, trachea midline Respiratory/Chest: chest non-tender, lungs clear, normal breath sounds, no respiratory distress, no accessory muscle use Cardiovascular: regular rate, rhythm, no JVD, no murmur, + pertinent finding ( Trace edema) Abdomen/GI: normal bowel sounds, non tender, soft Back: normal inspection Extremities/Musculoskelatal: normal inspection, + pedal edema (Trace) 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/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 as tested, no motor/sensory deficits, alert, normal mood/affect, oriented x 3 Skin: normal color, warm/dry Diagnostics Laboratory Results Results Past 24 Hours Test 09/21/17 10:57 Range/Units White Blood Count 8.42 4.8-10.8 K/uL Red Blood Count 2.77 4.2-5.4 M/uL Hemoglobin 8.6 12.0-16.0 g/dL Hematocrit 27.8 37-47 % Mean Corpuscular Volume 100.4 80-100 fL Mean Corpuscular Hemoglobin 31.0 25-34 pg Mean Corpuscular Hemoglobin Concent 30.9 32-36 g/dl Platelet Count 315 130-400 K/uL Mean Platelet Volume 9.3 7.4-10.4 fL Neutrophils (%) (Auto) 63.1 % Lymphocytes (%) (Auto) 18.3 % Monocytes (%) (Auto) 11.5 % Eosinophils (%) (Auto) 6.4 % Basophils (%) (Auto) 0.5 % Neutrophils # (Auto) 5.31 1.4-6.5 K/uL Lymphocytes # (Auto) 1.54 1.2-3.4 K/uL Monocytes # (Auto) 0.97 0.11-0.59 K/uL Eosinophils # (Auto) 0.54 0-0.5 K/uL Basophils # (Auto) 0.04 0-0.2 K/uL RDW Standard Deviation 55.6 36.4-46.3 fL RDW Coefficient of Variation 15.4 11.5-14.5 % Immature Granulocyte % (Auto) 0.2 % Immature Granulocyte # (Auto) 0.02 0.00-0.02 K/uL Hypersegmented Polys 1+ Polychromasia 1+ Basophilic Stippling OCCASIONAL Stomatocytes 1+ Prothrombin Time 12.7 9.0-12.0 SECONDS Prothromb Time International Ratio 1.2 0.9-1.1 Activated Partial Thromboplast Time 24.1 21.0-31.0 SECONDS Partial Thromboplastin Ratio 0.9 Sodium Level 140 136-145 mmol/L Potassium Level 4.1 3.5-5.1 mmol/L Chloride Level 100 98-107 mmol/L Carbon Dioxide Level 32 21-32 mmol/L Anion Gap 8.0 3-11 mmol/L Blood Urea Nitrogen 41 7-18 mg/dl Creatinine 1.39 0.60-1.20 mg/dl Estimated GFR () 40.2 Estimated GFR (Non- 34.7 BUN/Creatinine Ratio 29.3 10-20 Random Glucose 112 70-99 mg/dl Calcium Level 10.6 8.5-10.1 mg/dl Total Bilirubin 0.2 0.2-1 mg/dl Direct Bilirubin < 0.1 0-0.2 mg/dl Aspartate Amino Transf (AST/SGOT) 29 15-37 U/L Alanine Aminotransferase (ALT/SGPT) 27 12-78 U/L Alkaline Phosphatase 96 45-117 U/L Total Protein 7.0 6.4-8.2 gm/dl Albumin 2.9 3.4-5.0 gm/dl Impression Assessment and Plan Epistaxis: In setting of chronic Coumadin therapy and Nasacort Use Denies Us of NSAIDs, Aspirin Hb at baseline Transfuse PRBCs PRN Monitor Hb Afrin PRN INR subtherapeutic: 1.2 Hold Coumadin, Nasacort Avoid NSAIDs UTI: Diagnosed outpatient by PCP Urine culture from 09/17/17: Klebsiella Continue Ciprofloxacin Day # 4 Denies Dysuria H/O Recurrent PE: known hx of recurrent PE and previously has been on Coumadin which was last stopped in the summer of 2016 due to fall risk/chronic GI blood loss and being on hospice but no longer on hospice as per patient and resumed Coumadin last admission Hold Coumadin Consult Vascular surgery for Possible IVC filter placement H/O CAD S/P CABG Continue beta hayden CKD III: Cr at baseline stable Monitor renal function H/O Aortic stenosis: S/P TAVR Continue Lasix, BB H/O Endometrial cancer: S/P Surgery H/O Chronic anemia: Continue Iron supplements FOBT positive on multiple occasions Patient refuses Colonoscopy/Endoscopy Monitor H&H, Transfuse PRN Chronic Diastolic CHF No signs of exacerbation Continue Lasix H/O COPD Chronic Oxygen dependency: HS and PRN Continue home inhalers Chronic Left shoulder and Knee pain: H/O Rotator cuff tear H/O steroid Shots in the past pain control PT/OT DVT Px: SCDs Re: Epistaxis Code Status: Full Code Disposition: PT/OT Dip [facility] consulted for discharge planning
[2017-09-21] MEDS ORDERED: OXYCODONE HCL IR 5 MG TAB (IMMEDIATE RELEASE) PO STA (14:41)
[2017-09-21] MEDS ORDERED: ALBINS/ INH (14:43)
[2017-09-21] MEDS ORDERED: ONDA4TAB46 PO (14:43)
[2017-09-21] MEDS ORDERED: POLYETHYLENE (MIRALAX) 17 GM PACK PO PRN (14:45)
[2017-09-21] MEDS ORDERED: NITROGLYCERIN 0.4 MG SL PER TAB CHARGE SL PRN (14:45)
[2017-09-21] MEDS ORDERED: ONDANSETRON INJ 2 MG/ML 2 ML VIAL IV PRN (14:45)
[2017-09-21] MEDS ORDERED: ACETAMINOPHEN 325 MG TAB PO PRN (14:45)
[2017-09-21] MEDS ORDERED: LORAZEPAM 0.5 MG TAB PO PRN (14:45)
[2017-09-21] MEDS ORDERED: ALBUTEROL 0.083% NEBU SOLN 3 ML VIAL INH PRN (14:45)
[2017-09-21] MEDS ORDERED: OXYCODONE/ACETAMINOPHEN 5-325 TAB PO PRN (14:45)
[2017-09-21] MEDS ORDERED: MAGN400T6 PO (14:47)
[2017-09-21] MEDS ORDERED: IV FLUIDS COMPLETED PRN (16:15)
[2017-09-21 16:20] VITALS: BP 142/69; PULSE 75; TEMP 36.7; O2SAT 93; Ht 154.9 cm; Wt 60.1 kg
[2017-09-21] MEDS ORDERED: OXYMETAZOLINE HCL 0.05% NA SPR 15 ML BTL PRN (16:30)
[2017-09-21] MEDS ORDERED: PATIENT'S HEIGHT AND/OR WEIGHT NEEDED SCH (16:30)
[2017-09-21] MEDS ORDERED: POTA1CAP2 PO (16:51)
[2017-09-21] MEDS ORDERED: FENTANYL PATCH REMOVE & WASTE SCH (16:59)
[2017-09-21] MEDS ORDERED: FENTANYL 25 MCG/HR TDSY TD SCH (17:00)
--- NOTE | 2017-09-21 17:03 | EMERGENCY ROOM VISIT NOTE ---
History Report prepared by Henrique: Connor Dodson Under the Supervision of: Dr. Jame Olmedo M.D. First contact with patient: 10:14 Chief Complaint: NOSE BLEED (MINOR) Stated Complaint: NOSE BLEED History of Present Illness The patient is an 82 year old female who presents to the Emergency Room with complaints of a nose bleed from the right naris that occurred around an hour and a half ago. She says that the bleeding was stopped with pressure, and the episode lasted around 20 minutes. Per the patient's son, the patient had been on Coumadin "for years", but then went off of it more than half a year ago due to concerns about bleeding, and was put on only a baby Aspirin. The patient did have a GI bleed 5 years ago that required transfusion. The patient has been noted to have chronic melanotic stools for the past several years. The patient then had a blood clot in her lungs last month, and was restarted on Coumadin. The patient has been having her Coumadin dose increased over the past several weeks because her INR was subtherapeutic around 1.3. She was scheduled to have her INR checked today, but the patient's son was called by the patient's caregiver this morning because the patient was having a "gushing" nose bleed, and the patient's front side was covered in blood. The patient's son says that there were several saturated towels. The patient says that she has been feeling a bit weaker than normal today. The patient's last bowel movement was yesterday and it was black as per usual. The patient is not on any other blood thinners other than the Coumadin, and she is not on any NSAIDS. She denies any abdominal pain or hematuria. The patient is currently getting Cipro for a UTI. She does take iron twice per day. Source of History: patient, family Onset: An hour and a half ago Position: nose (right nary) Symptom Intensity: gushing blood Quality: other (was stopped with pressure - episode lasted 20 minutes) Timing: other (episode) Modifying Factors (Relieving): other (Direct pressure) Associated Symptoms: + weakness (more than usual today), No abdominal pain, No urinary symptoms (hematuria denied) Note: Patient noted to have chronic melanotic stools. Review of Systems See HPI for pertinent positives & negatives. A total of 10 systems reviewed and were otherwise negative. 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 (8) CKD (chronic kidney disease) stage 3, GFR 30-59 ml/min (9) Depression (10) Diverticulosis Colon (W/O Ment Of Hemorrhage) (11) Dyslipidemia (12) Epistaxis (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 (14) Falls (15) Gastroparesis (16) GERD (gastroesophageal reflux disease) (17) Hiatal hernia (18) History of acute minda lesion (19) History of endometrial cancer (20) History of GI bleed (21) History of pulmonary embolism (22) IBS (irritable bowel syndrome) (23) Obstructive lung disease (24) Osteoporosis (25) Polyarthritis (26) Recurrent UTI (27) Temporal arteritis Surgical Problems: (1) Hx of cystoscopy (2) S/P left knee arthroscopy (3) S/P TAVR (transcatheter aortic valve replacement) (4) Status post cataract extraction (5) Status post coronary artery stent placement (6) Status post hysterectomy Family History Cancer Diabetes mellitus FH: cardiovascular disease MOTHER Gallbladder disease Hypertension Social History Smoking Status: Never Smoker Alcohol Use: none Drug Use: none Marital Status: Housing Status: lives alone Occupation Status: retired Current/Historical Medications Scheduled Ascorbic Acid (Ascorbic Acid), 250 MG PO DAILY Ciprofloxacin (Cipro), 250 MG PO BID Docusate Sodium (Colace), 1 CAP PO BID Fentanyl (Fentanyl), 25 MCG TOP CQ72HR Ferrous Sulfate (Ferrous Sulfate), 325 MG PO BID Fluticasone Prop/Salmeterol (Advair Diskus 250/50 60 Dose), 1 PUFF INH BID Furosemide (Lasix), 40 MG PO DAILY Gabapentin (Neurontin), 100 MG PO DAILY Home O2 Therapy (Oxygen), 2 LITERS NA UD Lactobacillus Acidophilus (Floranex), 1 TAB PO TIDM Magnesium Oxide (Mag-Ox), 400 MG PO DAILY Metoprolol Succinate (Metoprolol Succinate ER), 12.5 MG PO BID Mirtazapine Soltab (Remeron Soltab), 15 MG PO HS Multiple Vitamin (Multivitamin), 0.5 TABLET PO DAILY Pantoprazole (Protonix), 40 MG PO DAILY Paroxetine (Paroxetine HCl), 40 MG PO DAILY Potassium Chloride (Potassium Chloride Er), 10 MEQ PO BID Senna (Senokot), 1 TAB PO BID Triamcinolone Acetonide (Nasal (Nasacort Allergy 24Hr), 2 SPRAYS KELLY DAILY Warfarin Sod (Jantoven), Unknown Dose PO DAILY Scheduled PRN Acetaminophen (Acetaminophen), 650 MG PO for Pain Albuterol Sulf (Proventil 0.083% 2.5MG/3ML), 2.5 MG INH QID PRN for SOB/Wheezing Lorazepam (Lorazepam), 0.5 MG PO HS PRN for Insomnia Ondansetron Hcl (Zofran), 4 MG PO Q6 PRN for Nausea Oxycodone/Acetaminophen 5MG/325MG (Percocet 5MG/325MG), 1 TABLET PO Q8H PRN for Pain Polyethylene (Miralax), 17 GM PO DAILY PRN for Constipation Allergies Coded Allergies: Cefdinir (Verified Allergy, Mild, RASH-HAS HAD ROCEPHIN,CEFEPIME MANY TIMES, 09/21/17) Clonazepam (Verified Allergy, Unknown, ., 09/21/17) Levofloxacin (Verified Allergy, Unknown, unknown, 09/21/17) Sulfasalazine (Verified Allergy, Unknown, ., 09/21/17) Metoclopramide (Verified Adverse Reaction, Intermediate, TREMORS, 09/21/17) Physical Exam Vital Signs Date Time Temp Pulse Resp B/P (MAP) Pulse Ox O2 Delivery O2 Flow Rate FiO2 09/21/17 14:48 88 16 130/76 95 Room Air 09/21/17 14:00 71 18 97/50 95 Room Air 09/21/17 13:20 80 23 09/21/17 13:15 70 19 92 09/21/17 13:10 71 22 91 09/21/17 13:05 68 15 92 09/21/17 13:05 70 09/21/17 13:01 123/58 09/21/17 13:00 70 13 92 Room Air 09/21/17 12:30 70 16 130/64 95 Room Air 09/21/17 11:42 71 16 109/57 93 Room Air 09/21/17 10:56 75 09/21/17 10:51 78 24 114/60 96 Room Air 09/21/17 10:05 36.3 110 20 124/64 99 Room Air Physical Exam Constitutional: Vital signs reviewed. Eyes: Pupils are equal round reactive to light. Conjunctiva are noninjected. ENT: Pharynx is clear without erythema or exudate. Mucous membranes are moist. No bleeding in either nostril. No dry blood. Neck supple without meningeal signs. Respiratory: Clear to auscultation bilaterally. Breath sounds are equal bilaterally. Cardiovascular: Regular rate and rhythm. No rubs or gallops. GI: Soft, nondistended and nontender. Bowel sounds are present. Rectal: Guaiac positive black stools. Musculoskeletal: No peripheral edema. No lower extremity tenderness. Integumentary: No cyanosis. Neurological: The patient is awake and alert. No focal deficits. Psychiatric: Normal affect. Medical Decision & Procedures Laboratory Results 09/21/17 10:57 Red Blood Count 2.77, Mean Corpuscular Volume 100.4, Mean Corpuscular Hemoglobin 31.0, Mean Corpuscular Hemoglobin Concent 30.9, Mean Platelet Volume 9.3, Neutrophils (%) (Auto) 63.1, Lymphocytes (%) (Auto) 18.3, Monocytes (%) ( Auto) 11.5, Eosinophils (%) (Auto) 6.4, Basophils (%) (Auto) 0.5, Neutrophils # (Auto) 5.31, Lymphocytes # (Auto) 1.54, Monocytes # (Auto) 0.97, Eosinophils # ( Auto) 0.54, Basophils # (Auto) 0.04 09/21/17 10:57 Test 09/21/17 10:57 White Blood Count 8.42 K/uL (4.8-10.8) Red Blood Count 2.77 M/uL (4.2-5.4) Hemoglobin 8.6 g/dL (12.0-16.0) Hematocrit 27.8 % (37-47) Mean Corpuscular Volume 100.4 fL (80-100) Mean Corpuscular Hemoglobin 31.0 pg (25-34) Mean Corpuscular Hemoglobin Concent 30.9 g/dl (32-36) Platelet Count 315 K/uL (130-400) Mean Platelet Volume 9.3 fL (7.4-10.4) Neutrophils (%) (Auto) 63.1 % Lymphocytes (%) (Auto) 18.3 % Monocytes (%) (Auto) 11.5 % Eosinophils (%) (Auto) 6.4 % Basophils (%) (Auto) 0.5 % Neutrophils # (Auto) 5.31 K/uL (1.4-6.5) Lymphocytes # (Auto) 1.54 K/uL (1.2-3.4) Monocytes # (Auto) 0.97 K/uL (0.11-0.59) Eosinophils # (Auto) 0.54 K/uL (0-0.5) Basophils # (Auto) 0.04 K/uL (0-0.2) RDW Standard Deviation 55.6 fL (36.4-46.3) RDW Coefficient of Variation 15.4 % (11.5-14.5) Immature Granulocyte % (Auto) 0.2 % Immature Granulocyte # (Auto) 0.02 K/uL (0.00-0.02) Hypersegmented Polys 1+ Polychromasia 1+ Basophilic Stippling OCCASIONAL Stomatocytes 1+ Prothrombin Time 12.7 SECONDS (9.0-12.0) Prothromb Time International Ratio 1.2 (0.9-1.1) Activated Partial Thromboplast Time 24.1 SECONDS (21.0-31.0) Partial Thromboplastin Ratio 0.9 Anion Gap 8.0 mmol/L (3-11) Estimated GFR () 40.2 Estimated GFR (Non- 34.7 BUN/Creatinine Ratio 29.3 (10-20) Calcium Level 10.6 mg/dl (8.5-10.1) Total Bilirubin 0.2 mg/dl (0.2-1) Direct Bilirubin < 0.1 mg/dl (0-0.2) Aspartate Amino Transf (AST/SGOT) 29 U/L (15-37) Alanine Aminotransferase (ALT/SGPT) 27 U/L (12-78) Alkaline Phosphatase 96 U/L (45-117) Total Protein 7.0 gm/dl (6.4-8.2) Albumin 2.9 gm/dl (3.4-5.0) Laboratory results as reviewed by me. Medications Administered Medications (Trade) Dose Ordered Sig/Rosi Route Start Time Stop Time Status Last Admin Dose Admin Oxycodone HCl (Roxicodone Immediate Rel Tab) 5 mg NOW STAT PO 09/21/17 14:41 09/21/17 14:43 DC 09/21/17 14:46 5 MG ED Course 1016: The patient was evaluated in room A2. A complete history and physical exam was performed. 1210: I reevaluated the patient and discussed the test results with her. I recommended hospitalization for possible dante filter and recheck of INR and hemoglobin. She was reluctant but her son and I were able to convince her to stay. She will be evaluated for further treatment. 1226: I spoke with Dr. Jessica of [facility] internal medicine. We discussed the patient and her results. The patient will be further evaluated by Dr. Jessica. 1336: I discussed the patient with Dr. Asif - [facility] hazmat cdl a driver. Medical Decision This is an 82-year-old female who presents with nosebleed and black stools. Differential diagnosis includes epistaxis, supratherapeutic INR, anemia, GI bleed, iron pills discoloring stool. I did perform a limited focused review of portions of the patient's old chart on the electronic medical record. The patient was admitted on August 22 with a pulmonary embolism and was started on Coumadin. I did evaluate the patient as noted above. She is presenting with a nosebleed that started today. She is on Coumadin and has recently increased her dose. She had a subtherapeutic INR recently. She has spontaneous resolution of her nosebleed. There is no area in her nostrils requiring cautery. I did perform a rectal examination which shows strongly guaiac positive melanotic stools. IV access was established. The patient was placed on a continuous cardiac rehab nurse. I did order and review the patient's blood work as noted in the electronic medical record. Her INR is subtherapeutic at 1.2. She is anemic with a hemoglobin 9.6 down from 9.1. I did discuss the test results with the patient. I did recommend hospitalization for repeat hemoglobins given her prior history of severe GI bleed 5 years ago. I did state that there is a possibility that she would require a [place] filter. Initially the patient did not wish to stay but her son and I were able to convince her. I did discuss case with the hospitalist and case sealer. Medication Reconcilliation Current Medication List: was personally reviewed by me Blood Pressure Screening Patient's blood pressure: Normal blood pressure Consults Time Called: 1220 Consulting Physician: Dr. Jessica - [facility] hazmat cdl a driver Returned Call: [address] Jessica of [facility] internal medicine. We discussed the patient and her results. The patient will be further evaluated by Dr. Jessica. Additional Consults: Time Called: 1330 Consulted Physician: Dr. Laya Skinner hazmat cdl a driver Returned Call: 1336 Additional Comments: I discussed the patient with Dr. Laya Skinner hazmat cdl a driver. Impression Primary Impression: Upper GI bleed Additional Impressions: Anticoagulated on Coumadin Symptomatic anemia Epistaxis Subtherapeutic international normalized ratio (INR) Scribe Attestation The scribe's documentation has been prepared under my direct and personally reviewed by me in its entirety. I confirm that the note above accurately reflects all work, treatment, procedures, and medical decision making performed by me. Departure Information Dispostion Being Evaluated By Hospitalist Referrals Myrna Inman M.D. (PCP) Patient Instructions My [facility] Problem Qualifiers
[2017-09-21] MEDS: FERROUS SULFATE 325 MG TAB PO SCH (17:40)
[2017-09-21] MEDS: LACTOBACILLUS ACIDOPHILUS (FLORANEX) TAB PO SCH (17:40)
[2017-09-21] MEDS ORDERED: OXYC-57 PO (18:18)
[2017-09-21] MEDS ORDERED: OXGN (20:14)
[2017-09-21 20:19] VITALS: BP 118/67; PULSE 86; TEMP 36.6; O2SAT 98
[2017-09-21 20:20] LABS: HEMATOCRIT 25.9 % (37-47)
[2017-09-21] MEDS ORDERED: FURO-85 PO (20:37)
[2017-09-21] MEDS ORDERED: MIRTAZAPINE SOLTAB 15 MG PO SCH (21:00)
[2017-09-21] MEDS: FLUTICASONE/SALMETEROL 250/50 (ADVAIR) 14 PUFF/1 INHALER INH SCH (21:46)
[2017-09-21] MEDS: METOPROLOL SUCC 25MG EXT REL TAB PO SCH (21:47)
[2017-09-21] MEDS: DOCUSATE SODIUM 100 MG CAP PO SCH (21:48)
[2017-09-21] MEDS: SENNA 8.6 MG TAB PO SCH (21:48)
[2017-09-21] MEDS: CIPROFLOXACIN 250 MG TAB PO SCH (21:48)
[2017-09-21] MEDS ORDERED: SODIUM CHLORIDE 0.9% 1000ML 500 ML IV ONE (22:00)
[2017-09-21] MEDS ORDERED: LORA0.5T12 PO (22:14)
[2017-09-22] MEDS: CHECK FENTANYL PATCH PLACEMENT SCH ×2 (00:04→07:52)
[2017-09-22 00:11] VITALS: BP 103/58; PULSE 82; TEMP 36.9; O2SAT 90
[2017-09-22 03:38] VITALS: BP 96/56; PULSE 77; TEMP 37.1; O2SAT 97
[2017-09-22 06:38] LABS: HEMATOCRIT 26.6 % (37-47); MEAN CELL VOLUME 100.4 fL (80-100); MEAN CORPUSCULAR HEMOGLOBIN 30.2 pg (25-34); MEAN CORPUSCULAR HGB CONC 30.1 g/dl (32-36); MEAN PLATELET VOLUME 9.6 fL (7.4-10.4); PLATELET COUNT 299 K/uL (130-400); RED CELL DISTRIBUTION WIDTH CV 15.8 % (11.5-14.5); WHITE BLOOD COUNT 7.92 K/uL (4.8-10.8)
[2017-09-22 07:02] LABS: CALCIUM 9.7 mg/dl (8.5-10.1); CREATININE 1.37 mg/dl (0.60-1.20); POTASSIUM 4.6 mmol/L (3.5-5.1)
[2017-09-22] MEDS: DOCUSATE SODIUM 100 MG CAP PO SCH (07:46)
[2017-09-22] MEDS: CIPROFLOXACIN 250 MG TAB PO SCH (07:47)
[2017-09-22] MEDS: SENNA 8.6 MG TAB PO SCH (07:47)
[2017-09-22] MEDS: METOPROLOL SUCC 25MG EXT REL TAB PO SCH (07:48)
[2017-09-22] MEDS: LACTOBACILLUS ACIDOPHILUS (FLORANEX) TAB PO SCH ×2 (07:49→12:04)
[2017-09-22] MEDS: FERROUS SULFATE 325 MG TAB PO SCH (07:49)
[2017-09-22] MEDS: FLUTICASONE/SALMETEROL 250/50 (ADVAIR) 14 PUFF/1 INHALER INH SCH (07:51)
[2017-09-22 08:00] VITALS: BP 103/62; PULSE 75; TEMP 37; O2SAT 100
[2017-09-22] MEDS ORDERED: FUROSEMIDE 40 MG TAB PO SCH (09:00)
[2017-09-22] MEDS ORDERED: GABAPENTIN 100 MG CAP PO SCH (09:00)
[2017-09-22] MEDS ORDERED: MAGNESIUM OXIDE 400 MG TAB PO SCH (09:00)
[2017-09-22] MEDS ORDERED: PANTOprazole SOD 40 MG TAB PO SCH (09:00)
[2017-09-22 12:00] VITALS: BP 101/62; PULSE 79; TEMP 36.4; O2SAT 90
--- NOTE | 2017-09-22 12:22 | Surgery Consultation ---
Consultation Date of Service Sep 22, 2017. (Heavenly Galarza, KEI) Chief Complaint epistaxis, hx PE (Heavenly Galarza, KEI) History of Present Illness The patient is a 82 year old female with multiple medical problems, admitted d/ t epistaxis, seen in consultation today for possible IVC filter insertion d/t epistaxis and hx of PE. Pt states she had PE years ago, unsure when, and was started on coumadin. States Coumadin was stopped last year sometime and she was taking just ASA. Came to [facility] ED for eval last month d/t left sided rib pain and was found to have R sided PE, so coumadin was restarted. Pt states she has been congested recently and using nasacort. States she blew her nose and it began bleeding. Stopped with pressure for approx 15 minutes. No prior hx of epistaxis per pt. No hx of DVT in legs. Denies EPSTEIN, fever, chills, chest pain, SOB, abd pain, N/V, rest pain, claudication, other complaints. CTA performed last admission demonstrates age indeterminate small PE. (Heavenly Galarza, EMMAC) Vitals Vital Signs Past 12 Hours Date Time Temp Pulse Resp B/P (MAP) Pulse Ox O2 Delivery O2 Flow Rate FiO2 09/22/17 11:19 Room Air 09/22/17 08:00 Room Air 09/22/17 08:00 37.0 75 18 103/62 (76) 100 Nasal Cannula 2.0 09/22/17 04:00 Room Air 09/22/17 03:38 37.1 77 16 96/56 (69) 97 2.0 09/22/17 00:11 36.9 82 16 103/58 (73) 90 Room Air 09/21/17 23:59 Room Air (Heavenly Galarza, EMMAC) Allergies Coded Allergies: Cefdinir (Verified Allergy, Mild, RASH-HAS HAD ROCEPHIN,CEFEPIME MANY TIMES, 09/21/17) Clonazepam (Verified Allergy, Unknown, ., 09/21/17) Levofloxacin (Verified Allergy, Unknown, unknown, 09/21/17) Sulfasalazine (Verified Allergy, Unknown, ., 09/21/17) Metoclopramide (Verified Adverse Reaction, Intermediate, TREMORS, 2/19/18) Home Medications Scheduled Ascorbic Acid (Ascorbic Acid), 250 MG PO DAILY Ciprofloxacin (Cipro), 250 MG PO BID Docusate Sodium (Colace), 1 CAP PO BID Fentanyl (Fentanyl), 25 MCG TOP CQ72HR Ferrous Sulfate (Ferrous Sulfate), 325 MG PO BID Fluticasone Prop/Salmeterol (Advair Diskus 250/50 60 Dose), 1 PUFF INH BID Furosemide (Lasix), 40 MG PO DAILY Gabapentin (Neurontin), 100 MG PO DAILY Home O2 Therapy (Oxygen), 2 LITERS NA UD Lactobacillus Acidophilus (Floranex), 1 TAB PO TIDM Magnesium Oxide (Mag-Ox), 400 MG PO DAILY Metoprolol Succinate (Metoprolol Succinate ER), 12.5 MG PO BID Mirtazapine Soltab (Remeron Soltab), 15 MG PO HS Multiple Vitamin (Multivitamin), 0.5 TABLET PO DAILY Pantoprazole (Protonix), 40 MG PO DAILY Paroxetine (Paroxetine HCl), 40 MG PO DAILY Potassium Chloride (Potassium Chloride Er), 10 MEQ PO BID Senna (Senokot), 1 TAB PO BID Triamcinolone Acetonide (Nasal (Nasacort Allergy 24Hr), 2 SPRAYS KELLY DAILY Warfarin Sod (Jantoven), Unknown Dose PO DAILY Scheduled PRN Acetaminophen (Acetaminophen), 650 MG PO for Pain Albuterol Sulf (Proventil 0.083% 2.5MG/3ML), 2.5 MG INH QID PRN for SOB/Wheezing Lorazepam (Lorazepam), 0.5 MG PO HS PRN for Insomnia Ondansetron Hcl (Zofran), 4 MG PO Q6 PRN for Nausea Oxycodone/Acetaminophen 5MG/325MG (Percocet 5MG/325MG), 1 TABLET PO Q8H PRN for Pain Polyethylene (Miralax), 17 GM PO DAILY PRN for Constipation Problem List Medical Problems: (1) Anemia (2) Angiectasia (3) Aortic stenosis (4) Basal cell carcinoma (5) Benign hypertension (6) CAD (coronary artery disease) (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 (8) CKD (chronic kidney disease) stage 3, GFR 30-59 ml/min (9) Depression (10) Diverticulosis Colon (W/O Ment Of Hemorrhage) (11) Dyslipidemia (12) Epistaxis (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 (14) Falls (15) Gastroparesis (16) GERD (gastroesophageal reflux disease) (17) Hiatal hernia (18) History of acute minda lesion (19) History of endometrial cancer (20) History of GI bleed (21) History of pulmonary embolism (22) IBS (irritable bowel syndrome) (23) Obstructive lung disease (24) Osteoporosis (25) Polyarthritis (26) Recurrent UTI (27) Temporal arteritis Surgical Problems: (1) Hx of cystoscopy (2) S/P left knee arthroscopy (3) S/P TAVR (transcatheter aortic valve replacement) (4) Status post cataract extraction (5) Status post coronary artery stent placement (6) Status post hysterectomy (Heavenly Galarza PA-C) Surgical / Medical History Hx Cardiac Surgery: Yes (aortic valve replacement, stents) Hx Abdominal Surgery: No Hx Cancer Surgery: Yes (endmetrial, basal cell) Hx Thoracic Surgery: No Hx Orthopedic: Yes (left knee) Hx Urinary Tract Surgery: Yes (cystoscopy) Past Medical/Surgical History: Hypertension, Kidney Disease, Pulmonary Emboli, Valve Replacement (Heavenly Galarza, EMMAC) Family History Cancer Diabetes mellitus FH: cardiovascular disease MOTHER Gallbladder disease Hypertension (Heavenly Galarza PA-C) Cancer Diabetes mellitus FH: cardiovascular disease MOTHER Gallbladder disease Hypertension (Obed Phan M.D.) Social History Smoking Status: Never Smoker Hx Tobacco Use In Past Year?: No Hx Alcohol Use - Type & Amnt: No Hx Substance Use -Type & Amnt: No (Heavenly Galarza, EMMAC) Review of Systems Constitutional: + malaise (chronic), No chills, No fever Skin: No change in color Eyes: No visual changes ENMT: No sore throat Respiratory: No cough, No LEONE, No hemoptysis, No short of breath Cardiovascular: No chest pain, No syncope, No edema, No intermittent claudication Gastrointestinal: No abdominal pain, No nausea, No vomiting Genitourinary - Female: No dysuria, No hematuria Neurologic: No dizziness, No headache, No numbness, No tingling (Heavenly Galarza, PA-C) Physical Exam Constitutional: General Apperance: well-nourished, well-developed Level of Distress: NAD, chronically ill Psychiatric: Mental Status: active & alert, normal mood, normal affect Orientation: oriented except where noted, to time, to place, to person Memory: recent memory normal, remote memory normal Head: normocephalic, atraumatic Eyes: EOM: EOMI ENMT: normal ENT inspection, hearing grossly normal Neck: supple, trachea midline Lungs: Respiratory effort: no dyspnea Auscultation: no rales/crackles, no rhonchi Cardiovascular: Apical Impulse: not displaced Heart Auscultation: RRR, no rubs, no gallops Peripheral Pulses: Pulses: full and equal, in all extremities except if noted Bruits: none appreciated Carotid Pulse: normal on the left, normal on the right Brachial Pulses: normal on the left, normal on the right Radial Pulse: normal on the left, normal on the right Femoral Pulse: normal on the left, normal on the right Posterior Tibialis Pulse: decreased on the left, decreased on the right Dorsalis Pedis Pulse: decreased on the left, decreased on the right Abdomen: Bowel Sounds: normal Inspection & Palpation: soft, non-distended, no tenderness, guarding & rebound Musculoskeletal: normal strength (5/5 throughout), normal tone Extremities: Upper Right: no cyanosis, no edema, no varicosities Upper Left: no cyanosis, no edema, no varicosities Lower Right: no cyanosis, no edema, no varicosities Lower Left: no cyanosis, no edema, no varicosities Neurologic: Cranial Nerves: grossly intact Sensation: grossly intact (Heavenly Galarza, EMMAC) Assessment and Plan ASSESSMENT and PLAN: Hx PE Epistaxis Pt also seen by Dr Phan. Pt had single episode of epistaxis which stopped with pressure. INR was not therapeutic. PE demonstrated on CTA last month appears age indeterminate, likely chronic, not acute. Do not recommend IVC filter insertion at this time. AC per medicine. Please call if needed. (Heavenly Galarza, EMMAC) Patient was seen, examined, and chart reviewed. Agree with exam and treatment plan of the Vascular PA. (Obed Phan M.D.)
--- NOTE | 2017-09-22 14:39 | Progress Note ---
Internal Med Progress Note Date of Service: Sep 22, 2017. Provider Documentation: SUBJECTIVE: Patient seen and examined at bedside. Reports no further episodes of nose bleeding while in the hospital OBJECTIVE: General Appearance: no apparent distress Head: normocephalic, atraumatic Eyes: normal inspection, EOMI ENT: normal ENT inspection, hearing grossly normal Neck: supple, trachea midline Respiratory/Chest: chest non-tender, lungs clear, normal breath sounds, no respiratory distress, no accessory muscle use Cardiovascular: regular rate, rhythm, no JVD Abdomen/GI: normal bowel sounds, non tender, soft Back: normal inspection Extremities/Musculoskelatal: normal inspection Neurologic/Psych: mattress inspector II-XII nml as tested, alert, normal mood/affect, oriented x 3 Skin: normal color, warm/dry ASSESSMENT & PLAN: Patient was evaluated at [facility] for epistaxis which resolved at home Patient was on coumadin at home but the INR was not therapeutic Patient did not have further episodes of epistaxis. The Hemoglobin on AM of discharge is the same as yesterday evening which is 8. Patient was seen by vascular surgery to evaluated whether she is in need of IVC filter given previous hospital evaluations for GI bleed vs anemia and now here for epistaxis evaluation. As per vascular surgery "the PE demonstrated on CTA last month appears age indeterminate, likely chronic, not acute. Do not recommend IVC filter insertion at this time" Patient to be discharged to home with follow up to primary care appointment with Dr. Block 09/25/17 at 11:25 AM at [address], [place] [address]. Rescheduling appointments can be made [phone] Patient can continue home medications and encouraged to discuss with primary care doctor about anticoagulation medicines Vital Signs: Date Time Temp Pulse Resp B/P (MAP) Pulse Ox O2 Delivery O2 Flow Rate FiO2 09/22/17 12:00 36.4 79 22 101/62 (75) 90 Room Air 09/22/17 11:19 Room Air 09/22/17 08:00 Room Air 09/22/17 08:00 37.0 75 18 103/62 (76) 100 Nasal Cannula 2.0 09/22/17 04:00 Room Air 09/22/17 03:38 37.1 77 16 96/56 (69) 97 2.0 09/22/17 00:11 36.9 82 16 103/58 (73) 90 Room Air 09/21/17 23:59 Room Air 09/21/17 20:19 36.6 86 20 118/67 (84) 98 Room Air 09/21/17 20:00 Room Air 09/21/17 16:20 36.7 75 16 142/69 93 Room Air 09/21/17 15:32 82 20 105/52 93 Lab Results: Results Past 24 Hours Test 09/21/17 20:05 09/22/17 05:45 Range/Units Hemoglobin 8.0 8.0 12.0-16.0 g/dL Hematocrit 25.9 26.6 37-47 % White Blood Count 7.92 4.8-10.8 K/uL Red Blood Count 2.65 4.2-5.4 M/uL Mean Corpuscular Volume 100.4 80-100 fL Mean Corpuscular Hemoglobin 30.2 25-34 pg Mean Corpuscular Hemoglobin Concent 30.1 32-36 g/dl RDW Standard Deviation 57.0 36.4-46.3 fL RDW Coefficient of Variation 15.8 11.5-14.5 % Platelet Count 299 130-400 K/uL Mean Platelet Volume 9.6 7.4-10.4 fL Sodium Level 139 136-145 mmol/L Potassium Level 4.6 3.5-5.1 mmol/L Chloride Level 103 98-107 mmol/L Carbon Dioxide Level 33 21-32 mmol/L Anion Gap 3.0 3-11 mmol/L Blood Urea Nitrogen 32 7-18 mg/dl Creatinine 1.37 0.60-1.20 mg/dl Est Creatinine Clear Calc Drug Dose 25.4 ml/min Estimated GFR () 40.9 Estimated GFR (Non- 35.3 BUN/Creatinine Ratio 23.5 10-20 Random Glucose 104 70-99 mg/dl Calcium Level 9.7 8.5-10.1 mg/dl Magnesium Level 2.2 1.8-2.4 mg/dl
--- NOTE | 2017-09-22 15:29 | Discharge Instructions ---
Discharge Instructions Date of Service Sep 22, 2017. Admission Reason for Admission: Epistaxis Discharge Discharge Diagnosis / Problem: Epistaxis Discharge Goals Goal(s): Improve disease control Activity Recommendations Activity Limitations: per Instructions/Follow-up section Shower/Bathe: no limitations . Instructions / Follow-Up Instructions / Follow-Up Patient was evaluated at [facility] for epistaxis which resolved at home Patient was on coumadin at home but the INR was not therapeutic Patient did not have further episodes of epistaxis. The Hemoglobin on AM of discharge is the same as yesterday evening which is 8. Patient was seen by vascular surgery to evaluated whether she is in need of IVC filter given previous hospital evaluations for GI bleed vs anemia and now here for epistaxis evaluation. As per vascular surgery "the PE demonstrated on CTA last month appears age indeterminate, likely chronic, not acute. Do not recommend IVC filter insertion at this time" Patient to be discharged to home with follow up to primary care appointment with Dr. Block 09/25/17 at 11:25 AM at [address] [place] [address] Dr, [place] [address]. Rescheduling appointments can be made [phone] Patient can continue home medications and encouraged to discuss with primary care doctor about anticoagulation medicines Current Hospital Diet Patient's current hospital diet: AHA Diet (Heart Healthy) Discharge Diet Recommended Diet: AHA Diet (Heart Healthy) Pending Studies Studies pending at discharge: no Laboratory Results 09/22/17 05:45 09/22/17 05:45 Test 09/21/17 10:57 09/22/17 05:45 Immature Granulocyte % (Auto) 0.2 % White Blood Count 8.42 K/uL (4.8-10.8) Red Blood Count 2.77 M/uL (4.2-5.4) 2.65 M/uL (4.2-5.4) Hemoglobin 8.6 g/dL (12.0-16.0) Hematocrit 27.8 % (37-47) Mean Corpuscular Volume 100.4 fL (80-100) 100.4 fL (80-100) Mean Corpuscular Hemoglobin 31.0 pg (25-34) 30.2 pg (25-34) Mean Corpuscular Hemoglobin Concent 30.9 g/dl (32-36) 30.1 g/dl (32-36) Platelet Count 315 K/uL (130-400) Mean Platelet Volume 9.3 fL (7.4-10.4) 9.6 fL (7.4-10.4) Neutrophils (%) (Auto) 63.1 % Lymphocytes (%) (Auto) 18.3 % Monocytes (%) (Auto) 11.5 % Eosinophils (%) (Auto) 6.4 % Basophils (%) (Auto) 0.5 % Neutrophils # (Auto) 5.31 K/uL (1.4-6.5) Lymphocytes # (Auto) 1.54 K/uL (1.2-3.4) Monocytes # (Auto) 0.97 K/uL (0.11-0.59) Eosinophils # (Auto) 0.54 K/uL (0-0.5) Basophils # (Auto) 0.04 K/uL (0-0.2) Immature Granulocyte # (Auto) 0.02 K/uL (0.00-0.02) Hypersegmented Polys 1+ Polychromasia 1+ Basophilic Stippling OCCASIONAL Stomatocytes 1+ Prothrombin Time 12.7 SECONDS (9.0-12.0) Prothromb Time International Ratio 1.2 (0.9-1.1) Activated Partial Thromboplast Time 24.1 SECONDS (21.0-31.0) Partial Thromboplastin Ratio 0.9 Total Bilirubin 0.2 mg/dl (0.2-1) Direct Bilirubin < 0.1 mg/dl (0-0.2) Aspartate Amino Transf (AST/SGOT) 29 U/L (15-37) Alanine Aminotransferase (ALT/SGPT) 27 U/L (12-78) Alkaline Phosphatase 96 U/L (45-117) Total Protein 7.0 gm/dl (6.4-8.2) Albumin 2.9 gm/dl (3.4-5.0) RDW Standard Deviation 57.0 fL (36.4-46.3) RDW Coefficient of Variation 15.8 % (11.5-14.5) Anion Gap 3.0 mmol/L (3-11) Est Creatinine Clear Calc Drug Dose 25.4 ml/min Estimated GFR () 40.9 Estimated GFR (Non- 35.3 BUN/Creatinine Ratio 23.5 (10-20) Calcium Level 9.7 mg/dl (8.5-10.1) Magnesium Level 2.2 mg/dl (1.8-2.4) Medical Emergencies . Who to Call and When: Medical Emergencies: If at any time you feel your situation is an emergency, please call 911 immediately. . Non-Emergent Contact Non-Emergency issues call your: Primary Care Provider . . "Provider Documentation" section prepared by Evelio Starkey. . VTE Core Measure Inpt VTE Proph given/why not?: Warfarin (Coumadin)
--- NOTE | 2017-09-22 15:31 | Discharge Summary ---
Discharge Summary Date of Service Sep 22, 2017. Discharge Summary Admission Date: Sep 21, 2017 at 14:52 Discharge Date: Sep 22, 2017 Discharge Disposition: Home with services Principal Diagnosis: epistaxis, anemia, outpatient treatment for UTI, on coumadin Medication Reconciliation Continued Medications: Acetaminophen (Acetaminophen) 325 Mg Tab 650 MG PO PRN for Pain Albuterol Sulf (Proventil 0.083% 2.5MG/3ML) 2.5 Mg/3 Ml Nebu 2.5 MG INH QID PRN for SOB/Wheezing, EA Ascorbic Acid (Ascorbic Acid) 250 Mg Tab 250 MG PO DAILY Ciprofloxacin (Cipro) 250 Mg Tab 250 MG PO BID started taking monday 09/18 Docusate Sodium (Colace) 100 Mg Cap 1 CAP PO BID for 30 Days, #60 CAP 1 Refill Fentanyl (Fentanyl) 25 Mcg Tdsy 25 MCG TOP [id number] Ferrous Sulfate (Ferrous Sulfate) 325 Mg Tab 325 MG PO BID Fluticasone Prop/Salmeterol (Advair Diskus 250/50 60 Dose) 1 Ea Aerp 1 PUFF INH BID, INHALER PT ONLY USES NEEDED Furosemide (Lasix) 20 Mg Tab 40 MG PO DAILY, TAB Gabapentin (Neurontin) 100 Mg Cap 100 MG PO DAILY Home O2 Therapy (Oxygen) Gas 2 LITERS NA UD 2 liters HS and PRN Lactobacillus Acidophilus (Floranex) 1 Tab Tab 1 TAB PO TIDM, #90 TAB Lorazepam (Lorazepam) 0.5 Mg Tab 0.5 MG PO HS PRN for Insomnia Magnesium Oxide (Mag-Ox) 400 Mg Tab 400 MG PO DAILY, TAB Metoprolol Succinate (Metoprolol Succinate ER) 25 Mg Tabcr 12.5 MG PO BID Mirtazapine Soltab (Remeron Soltab) 15 Mg Soltab 15 MG PO HS, TAB Multiple Vitamin (Multivitamin) 1 Tab Tab 0.5 TABLET PO DAILY for 30 Days take with supper Ondansetron Hcl (Zofran) 4 Mg Tab 4 MG PO Q6 PRN for Nausea, TAB Oxycodone/Acetaminophen 5MG/325MG (Percocet 5MG/325MG) Tab 1 TABLET PO Q8H PRN for Pain, TAB Pantoprazole (Protonix) 40 Mg Tab 40 MG PO DAILY, #30 TAB Paroxetine (Paroxetine HCl) 40 Mg Tab 40 MG PO DAILY Polyethylene (Miralax) 17 Gm Pow 17 GM PO DAILY PRN for Constipation, #1 BTL Potassium Chloride (Potassium Chloride Er) 10 Meq Cap 10 MEQ PO BID for 90 Days, #180 CAP 1 Refill Senna (Senokot) 8.6 Mg Tab 1 TAB PO BID, TAB Triamcinolone Acetonide (Nasal (Nasacort Allergy 24Hr) 55 Mcg/Act Spr 2 SPRAYS EKLLY DAILY, #1 SPRAY Warfarin Sod (Jantoven) 1 Mg Tab Unknown Dose PO DAILY, TAB patient's son stated she took 3 mg last evening (09/20/18) that coag clinic at [facility] is working with her levels Admission Information HPI (per Admitting provider): Patient is an 82 Yr female with Multiple comorbidities and complex history who was recently discharged from [facility] after being treated for recurrent PE, UTI presents with history of epistaxis which started this morning. Patient reports she noticed nose bleed after blowing her nose as she felt congested. She is coumadin therapy for recurrent PE. She has also been using Nasacort for nasal congestion. She reports bleeding stopped spontaneously with application of pressure. She denies use of Aspirin, NSAIDs recently. Also has history of chronic melena and refused work up (Endoscopy/Colonoscopy) on multiple occasions. Denies any history of BRBPR, hematuria, hemoptysis but continues to have melena. She was previously stopped on Coumadin for H/O GI bleed requiring transfusions and was placed on Aspirin but during the last admission, patient restarted on Coumadin for recurrent PE per patient's request despite explaining the risks for bleeding. Hb is noted to be at baseline today and currently no active bleeding while in ED. She is currently on Cipro for recently diagnosed UTI. She complains of generalized weakness and pain since 2 days with associated mild dizziness and nausea. Continues to have melena since many years , last BM was yesterday. Denies any history of chest pain, SOB, abdominal pain, cough, dysuria, fever, chills, rhinitis, diarrhea. She is on Iron replacement therapy. Physical Exam (per Admitting): General Appearance: no apparent distress, + thin, + pertinent finding ( Chronic ill appearing) Head: normocephalic, atraumatic Eyes: normal inspection, PERRL, EOMI ENT: normal ENT inspection, hearing grossly normal Neck: supple, trachea midline Respiratory/Chest: chest non-tender, lungs clear, normal breath sounds, no respiratory distress, no accessory muscle use Cardiovascular: regular rate, rhythm, no JVD, no murmur, + pertinent finding (Trace edema) Abdomen/GI: normal bowel sounds, non tender, soft Back: normal inspection Extremities/Musculoskelatal: normal inspection, + pedal edema (Trace) Neurologic/Psych: rumper II-XII nml as tested, no motor/sensory deficits, alert , normal mood/affect, oriented x 3 Skin: normal color, warm/dry Hospital Course Patient was evaluated at [facility] for epistaxis which resolved at home Patient was on coumadin at home but the INR was not therapeutic Patient did not have further episodes of epistaxis. The Hemoglobin on AM of discharge is the same as yesterday evening which is 8. Patient was seen by vascular surgery to evaluated whether she is in need of IVC filter given previous hospital evaluations for GI bleed vs anemia and now here for epistaxis evaluation. As per vascular surgery "the PE demonstrated on CTA last month appears age indeterminate, likely chronic, not acute. Do not recommend IVC filter insertion at this time" Patient to be discharged to home with follow up to primary care appointment with Dr. Block 09/25/17 at 11:25 AM at [address], [place] [address]. Rescheduling appointments can be made [phone] Patient can continue home medications and encouraged to discuss with primary care doctor about anticoagulation medicines Total time spent on discharge = 60 minutes This includes examination of the patient, discharge planning, medication reconciliation, and communication with other providers. Discharge Instructions see above
[2017-09-22 15:37] VITALS: BP 101/62; PULSE 79; TEMP 36.4; O2SAT 90
[2017-09-22 16:00] VITALS: BP 121/74; PULSE 85; TEMP 36.5; O2SAT 91
== END 2017-09-22 16:51 | disposition home or self-care (01) ==
LOC: C.EDB 10:02 → EDBEDREQ 14:45 → C.2T 14:52 → EDBEDREQ 14:57 → ENRESERV 15:12
PROVIDERS: ADMIT Internal Medicine; ATTEND Hospitalist
DX: R04.0 Epistaxis (principal); D64.9 Anemia, unspecified; Z79.01 Long term (current) use of anticoagulants; N39.0 Urinary tract infection, site not specified; I25.10 Atherosclerotic heart disease of native coronary artery without angina pectoris; N18.3 Chronic kidney disease, stage 3 (moderate); D68.2 Hereditary deficiency of other clotting factors; K21.9 Gastro-esophageal reflux disease without esophagitis; E78.5 Hyperlipidemia, unspecified; I50.9 Heart failure, unspecified; Z98.49 Cataract extraction status, unspecified eye; Z90.710 Acquired absence of both cervix and uterus; Z85.828 Personal history of other malignant neoplasm of skin; Z86.711 Personal history of pulmonary embolism; Z95.5 Presence of coronary angioplasty implant and graft; Z79.899 Other long term (current) drug therapy; Z83.3 Family history of diabetes mellitus; Z80.9 Family history of malignant neoplasm, unspecified; Z82.49 Family history of ischemic heart disease and other diseases of the circulatory system; Z88.1 Allergy status to other antibiotic agents; Z88.2 Allergy status to sulfonamides

== ENCOUNTER 2017-10-02 17:09 | Inpatient (IN) | payer OTHER, BC ==
[~2017-10-02] VITALS: Ht 154.9 cm; Wt 51.0 kg
[~2017-10-02 17:09] MED LIST changes: +ACET-1346 PO; +ADVIN25/60 INH; +ALBINS/ INH; +CIPR250T3 PO; +FNTTP25 TOP; +FURO-85 PO; +GABA-112 PO; +LORA0.5T12 PO; +MAGN400T6 PO; +ONDA4TAB46 PO; +OXGN; +OXYC-57 PO; +PANT40TA PO; +POTA1CAP2 PO; +PRX/40 PO; +SENN-61 PO; +WARF1TAB6 PO; -WARF4TAB44 PO
--- NOTE | 2017-10-02 18:18 | DIAGNOSTIC IMAGING REPORT ---
CHEST ONE VIEW PORTABLE HISTORY: 82 years-old Female EVALUATE GI BLEED acute GI bleed COMPARISON: Portable AP view of the chest 08/30/2017 TECHNIQUE: Portable AP view of the chest FINDINGS: Cardiac silhouette is mildly enlarged, unchanged. Atherosclerosis of the aorta. Endograft of the aorta. Large hiatal hernia. No pneumothorax or large pleural effusion. Minimal blunting of the costophrenic angles. Bilateral chronic interstitial coarsening is noted along with linear subsegmental bibasilar opacities. No new lobar airspace consolidation identified. Degenerative changes are noted about the shoulders and spine. IMPRESSION: 1. No acute process of the chest. 2. Chronic interstitial opacities suggest scarring. Linear subsegmental bibasilar opacities favor atelectasis. 3. Large hiatal hernia. The above report was generated using voice recognition software. It may contain grammatical, syntax or spelling errors. Electronically signed by: Joshua Feng M.D. 10/02/2017 6:16 PM Dictated Date/Time: 10/02/2017 6:14 PM
[2017-10-02 18:20] LABS: HEMATOCRIT 25.1 % (37-47); HEMOGLOBIN 7.5 g/dL (12.0-16.0); MEAN CELL VOLUME 101.6 fL (80-100); MEAN CORPUSCULAR HEMOGLOBIN 30.4 pg (25-34); MEAN CORPUSCULAR HGB CONC 29.9 g/dl (32-36); MEAN PLATELET VOLUME 8.8 fL (7.4-10.4); PLATELET COUNT 288 K/uL (130-400); RED CELL DISTRIBUTION WIDTH CV 16.2 % (11.5-14.5); RED CELL DISTRIBUTION WIDTH SD 60.5 fL (36.4-46.3); WHITE BLOOD COUNT 6.94 K/uL (4.8-10.8)
[2017-10-02 18:25] LABS: INR 1.4 (0.9-1.1); PTT PATIENT 27.4 SECONDS (21.0-31.0)
[2017-10-02 18:33] LABS: ALBUMIN 2.8 gm/dl (3.4-5.0); ALT/SGPT 16 U/L (12-78); BLOOD UREA NITROGEN 19 mg/dl (7-18); CALCIUM 9.9 mg/dl (8.5-10.1); CARBON DIOXIDE 30 mmol/L (21-32); CREATININE 1.17 mg/dl (0.60-1.20); GLUCOSE 131 mg/dl (70-99); POTASSIUM 4.4 mmol/L (3.5-5.1); SODIUM 138 mmol/L (136-145)
[2017-10-02 18:39] LABS: ALKALINE PHOSPHATASE 90 U/L (45-117); AST/SGOT 20 U/L (15-37); TOTAL PROTEIN 6.7 gm/dl (6.4-8.2)
[2017-10-02 18:40] LABS: BASO % 0.4 %; BASO ABS # 0.03 K/uL (0-0.2); EOS % 0.9 %; EOS ABS # 0.06 K/uL (0-0.5); IG# 0.01 K/uL (0.00-0.02); LYMPH % 9.9 %; LYMPH ABS # 0.69 K/uL (1.2-3.4); MONO % 7.8 %; MONO ABS # 0.54 K/uL (0.11-0.59); NEUT % 80.9 %; NEUT ABS # 5.61 K/uL (1.4-6.5)
[2017-10-02] MEDS ORDERED: LSX40 PO (18:44)
[2017-10-02] MEDS ORDERED: WARF3TAB PO (18:44)
[2017-10-02] MEDS ORDERED: CALC500C3 PO (18:44)
--- NOTE | 2017-10-02 19:12 | EMERGENCY ROOM VISIT NOTE ---
History Report prepared by Henrique: Connor Dodson Under the Supervision of: Dr. Carlos Patterson D.O. First contact with patient: 17:19 Chief Complaint: REFERRED BY DOCTOR Stated Complaint: LOW HEMOGLOBIN History of Present Illness The patient is an 82 year old female with a history of anemia who presents to the Emergency Room with complaints of a persistent low hemoglobin level that was detected via a CBC prior to arrival this afternoon. She states that she has been feeling weak and short of breath, especially on exertion, for about a week , and when her home nurse came over today, the patient was noted to be pale and short of breath, so the patient was told to come here. However, the patient was called by her family doctor and was told to come to the office, where the patient had blood work done, and her hemoglobin was noted to be 7.7. Per the patient's son, the patient is on Coumadin for a blood clot in her lung. The patient has also been noted to have had some congestion recently, and has been using a nebulizer. The patient adds that her stools have been black "for a long time", but she does take iron. She notes that she had 3 episodes of diarrhea yesterday. Source of History: patient, family (son) Onset: [employer]IE[employer]Y [employer]OTECTION this afternoon Position: other (global) Symptom Intensity: hemoglobin of 7.7 Quality: other (low hemoglobin) Timing: other (persistent) Associated Symptoms: + SOB, + diarrhea, + weakness Note: Associated symptoms: Patient noted to be pale earlier today. Review of Systems See HPI for pertinent positives & negatives. A total of 10 systems reviewed and were otherwise negative. 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 (8) CKD (chronic kidney disease) stage 3, GFR 30-59 ml/min (9) Depression (10) Diverticulosis Colon (W/O Ment Of Hemorrhage) (11) Dyslipidemia (12) Epistaxis (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 (14) Falls (15) Gastroparesis (16) GERD (gastroesophageal reflux disease) (17) Hiatal hernia (18) History of acute minda lesion (19) History of endometrial cancer (20) History of GI bleed (21) History of pulmonary embolism (22) IBS (irritable bowel syndrome) (23) Obstructive lung disease (24) Osteoporosis (25) Polyarthritis (26) Recurrent UTI (27) Temporal arteritis Surgical Problems: (1) Hx of cystoscopy (2) S/P left knee arthroscopy (3) S/P TAVR (transcatheter aortic valve replacement) (4) Status post cataract extraction (5) Status post coronary artery stent placement (6) Status post hysterectomy Family History Cancer Diabetes mellitus FH: cardiovascular disease MOTHER Gallbladder disease Hypertension Social History Smoking Status: Never Smoker Alcohol Use: none Drug Use: none Marital Status: Housing Status: lives alone Occupation Status: retired Current/Historical Medications Scheduled Ascorbic Acid (Ascorbic Acid), 250 MG PO DAILY Calcium Carbonate (Tums), 1-2 TAB PO prn ud Docusate Sodium (Colace), 1 CAP PO BID Fentanyl (Fentanyl), 25 MCG TOP CQ72HR Ferrous Sulfate (Ferrous Sulfate), 325 MG PO BID Fluticasone Prop/Salmeterol (Advair Diskus 250/50 60 Dose), 1 PUFF INH BID Furosemide (Furosemide), 40 MG PO DAILY Gabapentin (Neurontin), 100 MG PO DAILY Home O2 Therapy (Oxygen), 3 LITERS NA UD Lactobacillus Acidophilus (Floranex), 1 TAB PO TIDM Magnesium Oxide (Mag-Ox), 400 MG PO DAILY Metoprolol Succinate (Metoprolol Succinate ER), 12.5 MG PO BID Mirtazapine Soltab (Remeron Soltab), 15 MG PO HS Multiple Vitamin (Multivitamin), 0.5 TABLET PO DAILY Pantoprazole (Protonix), 40 MG PO DAILY Paroxetine (Paroxetine HCl), 40 MG PO DAILY Potassium Chloride (Potassium Chloride Er), 10 MEQ PO BID Senna (Senokot), 1 TAB PO BID Warfarin Sodium (Coumadin), 3 MG PO DAILY Scheduled PRN Acetaminophen (Acetaminophen), 650 MG PO for Pain Albuterol Sulf (Proventil 0.083% 2.5MG/3ML), 2.5 MG INH QID PRN for SOB/Wheezing Lorazepam (Lorazepam), 0.5 MG PO HS PRN for Insomnia Ondansetron Hcl (Zofran), 4 MG PO Q6 PRN for Nausea Oxycodone/Acetaminophen 5MG/325MG (Percocet 5MG/325MG), 1 TABLET PO Q8H PRN for Pain Polyethylene (Miralax), 17 GM PO DAILY PRN for Constipation Allergies Coded Allergies: Cefdinir (Verified Allergy, Mild, RASH-HAS HAD ROCEPHIN,CEFEPIME MANY TIMES, 09/21/17) Clonazepam (Verified Allergy, Unknown, ., 09/21/17) Levofloxacin (Verified Allergy, Unknown, unknown, 09/21/17) Sulfasalazine (Verified Allergy, Unknown, ., 09/21/17) Metoclopramide (Verified Adverse Reaction, Intermediate, TREMORS, 09/21/17) Physical Exam Vital Signs Date Time Temp Pulse Resp B/P (MAP) Pulse Ox O2 Delivery O2 Flow Rate FiO2 10/02/17 18:56 73 20 122/63 95 Room Air 10/02/17 18:20 75 18 115/59 94 Room Air 10/02/17 17:16 36.9 88 20 92/55 96 Room Air Physical Exam CONSTITUTIONAL/VITAL SIGNS: Reviewed / noted above. GENERAL: Non-toxic in appearance. INTEGUMENTARY: Warm, dry, and pale. HEAD: Normocephalic. EYES: without scleral icterus or trauma. ENT/OROPHARYNX: clear and moist. LYMPHADENOPATHY/NECK: Is supple without lymphadenopathy or meningismus. RESPIRATORY: Lungs clear and equal. CARDIOVASCULAR: Regular rate and rhythm. GI/ABDOMEN: Soft and nontender. No organomegaly or pulsatile mass. No rebound or guarding. Normal bowel sounds. Rectal exam revealed dark brown stool, Guaiac negative. EXTREMITIES: Warm and well perfused. BACK: No CVA tenderness. NEUROLOGICAL: Intact without focal deficits. PSYCHIATRIC: normal affect. MUSCULOSKELETAL: Normally developed with good muscle tone. Medical Decision & Procedures ER Provider Diagnostic Interpretation: X ray results and stated below per my interpretation and radiology interpretation. CHEST ONE VIEW PORTABLE HISTORY: 82 years-old Female EVALUATE GI BLEED acute GI bleed COMPARISON: Portable AP view of the chest 08/30/2017 TECHNIQUE: Portable AP view of the chest FINDINGS: Cardiac silhouette is mildly enlarged, unchanged. Atherosclerosis of the aorta. Endograft of the aorta. Large hiatal hernia. No pneumothorax or large pleural effusion. Minimal blunting of the costophrenic angles. Bilateral chronic interstitial coarsening is noted along with linear subsegmental bibasilar opacities. No new lobar airspace consolidation identified. Degenerative changes are noted about the shoulders and spine. IMPRESSION: 1. No acute process of the chest. 2. Chronic interstitial opacities suggest scarring. Linear subsegmental bibasilar opacities favor atelectasis. 3. Large hiatal hernia. The above report was generated using voice recognition software. It may contain grammatical, syntax or spelling errors. Electronically signed by: Joshua Feng M.D. 10/02/2017 6:16 PM Dictated Date/Time: 10/02/2017 6:14 PM Laboratory Results 10/02/17 17:47 Red Blood Count 2.47, Mean Corpuscular Volume 101.6, Mean Corpuscular Hemoglobin 30.4, Mean Corpuscular Hemoglobin Concent 29.9, Mean Platelet Volume 8.8, Neutrophils (%) (Auto) 80.9, Lymphocytes (%) (Auto) 9.9, Monocytes (%) ( Auto) 7.8, Eosinophils (%) (Auto) 0.9, Basophils (%) (Auto) 0.4, Neutrophils # ( Auto) 5.61, Lymphocytes # (Auto) 0.69, Monocytes # (Auto) 0.54, Eosinophils # ( Auto) 0.06, Basophils # (Auto) 0.03 10/02/17 17:47 Test 10/02/17 17:47 White Blood Count 6.94 K/uL (4.8-10.8) Red Blood Count 2.47 M/uL (4.2-5.4) Hemoglobin 7.5 g/dL (12.0-16.0) Hematocrit 25.1 % (37-47) Mean Corpuscular Volume 101.6 fL (80-100) Mean Corpuscular Hemoglobin 30.4 pg (25-34) Mean Corpuscular Hemoglobin Concent 29.9 g/dl (32-36) Platelet Count 288 K/uL (130-400) Mean Platelet Volume 8.8 fL (7.4-10.4) Neutrophils (%) (Auto) 80.9 % Lymphocytes (%) (Auto) 9.9 % Monocytes (%) (Auto) 7.8 % Eosinophils (%) (Auto) 0.9 % Basophils (%) (Auto) 0.4 % Neutrophils # (Auto) 5.61 K/uL (1.4-6.5) Lymphocytes # (Auto) 0.69 K/uL (1.2-3.4) Monocytes # (Auto) 0.54 K/uL (0.11-0.59) Eosinophils # (Auto) 0.06 K/uL (0-0.5) Basophils # (Auto) 0.03 K/uL (0-0.2) RDW Standard Deviation 60.5 fL (36.4-46.3) RDW Coefficient of Variation 16.2 % (11.5-14.5) Immature Granulocyte % (Auto) 0.1 % Immature Granulocyte # (Auto) 0.01 K/uL (0.00-0.02) Hypochromasia PRESENT Prothrombin Time 15.1 SECONDS (9.0-12.0) Prothromb Time International Ratio 1.4 (0.9-1.1) Activated Partial Thromboplast Time 27.4 SECONDS (21.0-31.0) Partial Thromboplastin Ratio 1.1 Anion Gap 6.0 mmol/L (3-11) Est Creatinine Clear Calc Drug Dose 29.5 ml/min Estimated GFR () 49.6 Estimated GFR (Non- 42.8 BUN/Creatinine Ratio 16.2 (10-20) Calcium Level 9.9 mg/dl (8.5-10.1) Total Bilirubin 0.1 mg/dl (0.2-1) Direct Bilirubin < 0.1 mg/dl (0-0.2) Aspartate Amino Transf (AST/SGOT) 20 U/L (15-37) Alanine Aminotransferase (ALT/SGPT) 16 U/L (12-78) Alkaline Phosphatase 90 U/L (45-117) Total Creatine Kinase 24 U/L (26-192) Creatine Kinase MB 1.0 ng/ml (0.5-3.6) Creatine Kinase MB Ratio 4.2 (0-3.0) Troponin I 0.016 ng/ml (0-0.045) Total Protein 6.7 gm/dl (6.4-8.2) Albumin 2.8 gm/dl (3.4-5.0) Laboratory results as stated above per my review. ECG Per My Interpretation Indication: weakness Rate (beats per minute): 80 Rhythm: normal sinus Findings: no ectopy, other (no ST elevations) ED Course 1730: Previous medical records were reviewed. The patient was evaluated in room C2B. A complete history and physical examination was performed. 1912: Discussed the patient's case with Emily Skinner. The patient will be evaluated for further treatment and disposition. 1913: On reevaluation, the patient is resting. I discussed the results and findings with her. She verbalized agreement of the treatment plan. The patient will be evaluated for further management and care. Medical Decision Differentials include: Acute coronary syndrome, myocardial infarction, CVA, TIA , anemia, infection, pneumonia, UTI, pyelonephritis, poor nutrition, dehydration , electrolyte disturbance, and hypoglycemia. This is a 82-year-old female who presents to the ED with a chief complaint of low hemoglobin. The patient has a history of chronic anemia. She states that she chronically takes iron. The patient has been experiencing some increased shortness of breath and weakness over the past week. She had outpatient blood work today showed a hemoglobin of 7.7. The patient also has history of PE and DVT and is chronically on Coumadin. INR today is 1.4. Hemoglobin today is 7.5. Troponin was negative. EKG shows normal sinus rhythm. The patient was told the results of the test. Chest x-ray did not show acute process. She was typed and crossed for 1 unit of blood. I spoke with the hospitalist, who will see the patient for further inpatient evaluation and care. Medication Reconcilliation Current Medication List: was personally reviewed by me Blood Pressure Screening Patient's blood pressure: Normal blood pressure Consults Time Called: 1909 Consulting Physician: Emily Skinner Returned Call: 1912 Discussed the patient's case with Emily Skinner. The patient will be evaluated for further treatment and disposition. Impression Primary Impression: Anemia Additional Impressions: Dyspnea Weakness Scribe Attestation The scribe's documentation has been prepared under my direction and personally reviewed by me in its entirety. I confirm that the note above accurately reflects all work, treatment, procedures, and medical decision making performed by me. Departure Information Dispostion Being Evaluated By Hospitalist Referrals Myrna Inman M.D. (PCP) Patient Instructions My [facility] Problem Qualifiers
[2017-10-02 20:05] VITALS: BP 157/71; PULSE 80; TEMP 37; O2SAT 95; BMI 24.6
--- NOTE | 2017-10-02 20:10 | History and Physical ---
History & Physical Date & Time of Service: Oct 02, 2017 at 20:03 Chief Complaint: Low Hemoglobin Primary Care Physician: Myrna Inman M.D. History of Present Illness Source: patient, clinic records, hospital records This is an 82yo F with a PMH of recurrent PE (on coumadin), CAD s/p stent, diastolic CHF, aortic stenosis (s/p TAVR with bioprosthetic valve in 2016), HTN , h/o c diff and other problems listed below who presents with SOB and generalized weakness x 1 week. Patient has a complex history of recurrent PEs ( for which she is on coumadin) as well as chronic melanotic stool and anemia ( baseline hgb ~ 8-9). Patient was last admitted earlier in September for epistaxis and coumadin was held. Bleeding spontaneously resolved but vascular surgery was consulted for evaluation of IVC filter placement due to problems with recurrent bleeding. Vascular determined that PE appears chronic and did not recommend IVC filter placement. Patient was discharged home and resumed coumadin a few days later. Over the past week, patient has been experiencing lightheadedness, SOB and generalized weakness. Worse with exertion. Denies any falls, near-syncope or chest pain. Also complains of intermittent melanotic stool over the past month that is liquid-soft in character. Had 2 episodes yesterday and 1 today. Has intermittent cramping in upper abdomen as well as nausea. No vomiting. Went to clinic today for lightheadedness and SOB and Hgb found to be 7.7. Was sent to ER for further evaluation. Is well known to GI service. Last EGD was performed in Aug 2015 and showed mild inflammation, tortuous esophagus and paraesophageal hernia. Past Medical/Surgical History Medical Problems: (1) Anemia Status: Chronic (2) Angiectasia Permanent Comment: on colonoscopy 05/2013 Status: Chronic (3) Aortic stenosis Permanent Comment: moderately severe by echo December 2013 Status: Chronic (4) Basal cell carcinoma Permanent Comment: s/p MOHS surgery Status: Resolved (5) Benign hypertension Status: Chronic (6) CAD (coronary artery disease) Permanent Comment: s/p RCA stent 2011 Status: Chronic (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 Status: Chronic (8) CKD (chronic kidney disease) stage 3, GFR 30-59 ml/min Status: Chronic (9) Depression Status: Chronic (10) Diverticulosis Colon (W/O Ment Of Hemorrhage) Status: Chronic (11) Dyslipidemia Status: Chronic (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, 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 Status: Chronic (13) Falls Status: Chronic (14) Gastroparesis Status: Chronic (15) GERD (gastroesophageal reflux disease) Status: Chronic (16) Hiatal hernia Status: Chronic (17) History of acute minda lesion Permanent Comment: 06/2013 Status: Chronic (18) History of endometrial cancer Permanent Comment: s/p radiation and total hysterectomy Status: Chronic (19) History of GI bleed Status: Chronic (20) History of pulmonary embolism Permanent Comment: x 2 Status: Chronic (21) IBS (irritable bowel syndrome) Status: Chronic (22) Obstructive lung disease Status: Chronic (23) Osteoporosis Status: Chronic (24) Polyarthritis Permanent Comment: on chronic prednisone Status: Chronic (25) Recurrent UTI Status: Chronic (26) Temporal arteritis Status: Chronic Surgical Problems: (1) Hx of cystoscopy Status: Chronic (2) S/P left knee arthroscopy Status: Chronic (3) S/P TAVR (transcatheter aortic valve replacement) Permanent Comment: 2016: due to severe aortic stenosis. Bioprosthetic valve Status: Chronic (4) Status post cataract extraction Status: Chronic (5) Status post coronary artery stent placement Status: Chronic (6) Status post hysterectomy Status: Chronic Family History Cancer Diabetes mellitus FH: cardiovascular disease MOTHER Gallbladder disease Hypertension Social History Smoking Status: Never Smoker Drug Use: none Marital Status: Housing status: lives alone Occupational Status: retired Immunizations History of Influenza Vaccine: Yes Influenza Vaccine Date: Apr 18, 2016 History of Tetanus Vaccine?: Yes Tetanus Immunization Date: Nov 27, 2008 History of Pneumococcal: Yes Pneumococcal Date: Apr 21, 2016 History of Hepatitis B Vaccine: Yes Allergies Coded Allergies: Cefdinir (Verified Allergy, Mild, RASH-HAS HAD ROCEPHIN,CEFEPIME MANY TIMES, 09/21/17) Clonazepam (Verified Allergy, Unknown, ., 09/21/17) Levofloxacin (Verified Allergy, Unknown, unknown, 09/21/17) Sulfasalazine (Verified Allergy, Unknown, ., 09/21/17) Metoclopramide (Verified Adverse Reaction, Intermediate, TREMORS, 09/21/17) Home Medications Scheduled Ascorbic Acid (Ascorbic Acid), 250 MG PO DAILY Docusate Sodium (Colace), 1 CAP PO BID Fentanyl (Fentanyl), 25 MCG TOP [id number] Ferrous Sulfate (Ferrous Sulfate), 325 MG PO BID Fluticasone Prop/Salmeterol (Advair Diskus 250/50 60 Dose), 1 PUFF INH BID Furosemide (Lasix), 40 MG PO DAILY Gabapentin (Neurontin), 100 MG PO DAILY Home O2 Therapy (Oxygen), 3 LITERS NA UD Lactobacillus Acidophilus (Floranex), 1 TAB PO TIDM Magnesium Oxide (Mag-Ox), 400 MG PO DAILY Metoprolol Succinate (Metoprolol Succinate ER), 12.5 MG PO BID Mirtazapine Soltab (Remeron Soltab), 15 MG PO HS Multiple Vitamin (Multivitamin), 0.5 TABLET PO DAILY Pantoprazole (Protonix), 40 MG PO DAILY Paroxetine (Paroxetine HCl), 40 MG PO DAILY Potassium Chloride (Potassium Chloride Er), 10 MEQ PO BID Prednisone (Prednisone), 5 MG PO DAILY Ranitidine (Zantac), 300 MG PO HS Senna (Senokot), 1 TAB PO BID Warfarin Sodium (Coumadin), 3 MG PO DAILY Scheduled PRN Acetaminophen (Acetaminophen), 650 MG PO for Pain Albuterol Sulf (Proventil 0.083% 2.5MG/3ML), 2.5 MG INH QID PRN for SOB/Wheezing Lorazepam (Lorazepam), 0.5 MG PO HS PRN for Insomnia Ondansetron Hcl (Zofran), 4 MG PO Q6 PRN for Nausea Oxycodone/Acetaminophen 5MG/325MG (Percocet 5MG/325MG), 1 TABLET PO Q8H PRN for Pain Polyethylene (Miralax), 17 GM PO DAILY PRN for Constipation Review of Systems Constitutional: + weakness, + fatigue, No fever, No chills, No sweats, No weight loss Eyes: No worsening of vision, No eye pain ENT: No hearing loss, No unusual epistaxis, No nasal symptoms, No sore throat Respiratory: + shortness of breath, No cough, No sputum, No wheezing, No dyspnea on exertion, No dyspnea at rest Cardiovascular: No chest pain, No orthopnea, No PND, No edema, No palpitations Abdomen: + pain, + nausea, + diarrhea, No vomiting, No constipation Musculoskeletal: + joint pain, No muscle pain Genitourinary - Female: No dysuria Neurologic: No memory loss, No paralysis, No weakness, No numbness/tingling Integumentary: No rash, No itch, No new/changing skin lesions Physical Exam Vital Signs Date Time Temp Pulse Resp B/P (MAP) Pulse Ox O2 Delivery O2 Flow Rate FiO2 10/02/17 18:56 73 20 122/63 95 Room Air 10/02/17 18:20 75 18 115/59 94 Room Air 10/02/17 17:16 36.9 88 20 92/55 96 Room Air General Appearance: WD/WN, no apparent distress, + pertinent finding (Lying comfortably. +pallor ) Head: normocephalic, atraumatic Eyes: normal inspection, PERRL, sclerae normal ENT: normal ENT inspection, hearing grossly normal, pharynx normal Neck: supple, thyroid normal, trachea midline Respiratory/Chest: chest non-tender, lungs clear, no respiratory distress, no accessory muscle use, + crackles (bibasilar ) Cardiovascular: regular rate, rhythm, normal peripheral pulses, + systolic murmur Abdomen/GI: non tender, soft, no organomegaly Back: normal inspection Extremities/Musculoskelatal: normal inspection, no calf tenderness, no pedal edema Neurologic/Psych: no motor/sensory deficits, alert, normal mood/affect, oriented x 3 Skin: normal color, warm/dry Diagnostics Laboratory Results Results Past 24 Hours Test 10/02/17 17:47 Range/Units White Blood Count 6.94 4.8-10.8 K/uL Red Blood Count 2.47 4.2-5.4 M/uL Hemoglobin 7.5 12.0-16.0 g/dL Hematocrit 25.1 37-47 % Mean Corpuscular Volume 101.6 80-100 fL Mean Corpuscular Hemoglobin 30.4 25-34 pg Mean Corpuscular Hemoglobin Concent 29.9 32-36 g/dl Platelet Count 288 130-400 K/uL Mean Platelet Volume 8.8 7.4-10.4 fL Neutrophils (%) (Auto) 80.9 % Lymphocytes (%) (Auto) 9.9 % Monocytes (%) (Auto) 7.8 % Eosinophils (%) (Auto) 0.9 % Basophils (%) (Auto) 0.4 % Neutrophils # (Auto) 5.61 1.4-6.5 K/uL Lymphocytes # (Auto) 0.69 1.2-3.4 K/uL Monocytes # (Auto) 0.54 0.11-0.59 K/uL Eosinophils # (Auto) 0.06 0-0.5 K/uL Basophils # (Auto) 0.03 0-0.2 K/uL RDW Standard Deviation 60.5 36.4-46.3 fL RDW Coefficient of Variation 16.2 11.5-14.5 % Immature Granulocyte % (Auto) 0.1 % Immature Granulocyte # (Auto) 0.01 0.00-0.02 K/uL Hypochromasia PRESENT Prothrombin Time 15.1 9.0-12.0 SECONDS Prothromb Time International Ratio 1.4 0.9-1.1 Activated Partial Thromboplast Time 27.4 21.0-31.0 SECONDS Partial Thromboplastin Ratio 1.1 Sodium Level 138 136-145 mmol/L Potassium Level 4.4 3.5-5.1 mmol/L Chloride Level 102 98-107 mmol/L Carbon Dioxide Level 30 21-32 mmol/L Anion Gap 6.0 3-11 mmol/L Blood Urea Nitrogen 19 7-18 mg/dl Creatinine 1.17 0.60-1.20 mg/dl Est Creatinine Clear Calc Drug Dose 29.5 ml/min Estimated GFR () 49.6 Estimated GFR (Non- 42.8 BUN/Creatinine Ratio 16.2 10-20 Random Glucose 131 70-99 mg/dl Calcium Level 9.9 8.5-10.1 mg/dl Total Bilirubin 0.1 0.2-1 mg/dl Direct Bilirubin < 0.1 0-0.2 mg/dl Aspartate Amino Transf (AST/SGOT) 20 15-37 U/L Alanine Aminotransferase (ALT/SGPT) 16 12-78 U/L Alkaline Phosphatase 90 45-117 U/L Total Creatine Kinase 24 26-192 U/L Creatine Kinase MB 1.0 0.5-3.6 ng/ml Creatine Kinase MB Ratio 4.2 0-3.0 Troponin I 0.016 0-0.045 ng/ml Total Protein 6.7 6.4-8.2 gm/dl Albumin 2.8 3.4-5.0 gm/dl Diagnostic Radiology CXR: IMPRESSION: 1. No acute process of the chest. 2. Chronic interstitial opacities suggest scarring. Linear subsegmental bibasilar opacities favor atelectasis. 3. Large hiatal hernia. Impression Assessment and Plan This is an 82yo F with a PMH of recurrent PE (on coumadin), CAD s/p stent, diastolic CHF, aortic stenosis (s/p TAVR with bioprosthetic valve in 2016), HTN , h/o c diff and other problems listed below who presents with SOB and generalized weakness x 1 week. Symptomatic anemia 2/2 GI bleed: -Lightheadedness, SOB -Endorses loose melanotic stool x 1 month -Hgb 7.7 today (baseline ~8-9) -Type and crossed. Transfusing 1u prbcs -Continue iron supplement -Monitor H&H -Protonix bolus and drip -Hold coumadin, prednisone -C diff pending -GI consult H/o recurrent PEs: -Most recent admission for PE in August. On coumadin -Has been hospitalized for epistaxis since then -Not a candidate for IVC filter due to chronic nature of PE, per vascular -Hold coumadin for now -Need to discuss risk vs. benefit of future anticoagulation due to recurrent bleeding CAD (s/p stent), HLD: -No chest pain -Continue statin Diastolic CHF: -Euvolemic on exam -Cont home dose lasix, beta hayden Aortic stenosis -S/p TAVR with bioprosthetic valve in 2016 Pulmonary fibrosis: -At respiratory baseline -Cont home inhalers -Supplemental O2 PRN Osteoarthritis, chronic pain: -Cont home fentanyl patch, Percocet PRN -Hold prednisone in setting of bleed DVT Ppx: teds Code status: FULL but NO mechanical ventilation, per discussion with patient PCP: Henny Dispo: Admitted to telemetry. Discharge planning ordered for return home with home health nursing. Patient seen in collaboration with Dr. Acosta. Please see addendum. ATTENDING ADDENDUM : Patient seen and examined, care co ordinated with Radha NICHOLAS This is a 82-year-old female, with history of PE on Coumadin, history of coronary artery disease status post stents in RCA in 2011 , Hx of diastolic CHF , aortic stenosis status post TAVR with bioprosthetic AVR in 2016 , hypertension presented to the ER with complaint of weakness dizziness spell found to be anemic with hemoglobin of 7.7. Patient mentioned that she has chronic dark stool stool Hemoccult in the ER was positive Physical exam: General: Very pleasant no sign of any acute distress. HEENT: Sclera nonicteric equal reactive to light extraocular muscles intact. Heart regular S1-S2 Lungs: Clear to auscultate no wheezes or rales. Abdomen: Soft nontender no organomegaly bowel sounds active. Extremity: No rash deformity no lower extremity edema Neuro: Awake and alert 3, no focal neuro neuro deficit noted Assessment and plan: Symptomatic anemia/concern from chief concern for GI bleed/in the setting of anticoagulation: -Patient had recent admissions with bleeding complications including GI bleed required EGD blood transfusion, epistaxis Patient reports of chronic malacotic stool , no bright red blood per rectum -Ordered for 1 unit PRBCs to be transfused - follow H&H every 12 hours -ordered for NPO . IV Protonix drip, GI evaluation requested. -Last EGD August 2005 showed mild inflammation tortuous esophagus and esophageal heart History of pulmonary embolism: recent PE in Aug 2017 patient was evaluated by vascular surgery for IVC filter for recurrent bleeding complication -Per vascular IVC filter was not recommended as the PE appeared to be chronic hold on Coumadin - in the setting of concern for GI bleed symptomatic anemia will discuss with patient regarding resuming Coumadin depending on the Risk and benefit ratio History of coronary artery disease status post stent in 2011 we will hold aspirin in the setting of anemia and GI bleed patient will be continued starting beta-hayden History of diastolic CHF compensated continue with meds of beta-hayden and Lasix History of aortic stenosis status post AVR Status post T AVR with bioprosthetic valve in 2015 Patient does not need to be on chronic anticoagulation due to aortic valve CODE STATUS discussed with patient does not want mechanical ventilation okay for CPR and chest compressions DNI DVT prophylaxis, Coumadin on hold for concern of GI bleed SCD and CHRISTINA's Encourage early ambulation Disposition lives at home was independent in ADLs Patient will need PT OT evaluation prior to discharge for report of significant functional decline patient is active with home health visiting nurse Social service consulted for discharge planning Please refer to documentation of Radha Bruner PA-C for further discussion of other issues Jannet Acosta MD Resuscitation Status VTE Prophylaxis Will order VTE Prophylaxis: Yes Reason for no VTE drug order: Contraindicated
[2017-10-02] MEDS ORDERED: FURO20TA PO (20:57)
[2017-10-02] MEDS ORDERED: POLYETHYLENE (MIRALAX) 17 GM PACK PO PRN (21:00)
[2017-10-02] MEDS ORDERED: PANTOprazole INJ 80 MG in DEXTROSE 5% 100ML IV ONE (21:00)
[2017-10-02] MEDS ORDERED: NITROGLYCERIN 0.4 MG SL PER TAB CHARGE SL PRN (21:00)
[2017-10-02] MEDS ORDERED: ALUMINUM/MAGNESIUM/SIMETH (MAALOX MAX) 30 ML UDC PO PRN (21:00)
[2017-10-02] MEDS ORDERED: MAGNESIUM HYDROXIDE SUSP 30 ML UDC PO PRN (21:00)
[2017-10-02] MEDS ORDERED: FURO40TA3 PO (21:02)
[2017-10-02] MEDS ORDERED: RANI300T2 PO (21:02)
[2017-10-02] MEDS ORDERED: ASCO500T16 PO (21:02)
[2017-10-02] MEDS ORDERED: PRED-301 PO (21:02)
[2017-10-02 21:31] VITALS: BP 130/68; PULSE 78; TEMP 37
[2017-10-02 21:45] VITALS: BP 134/70; PULSE 78; TEMP 36.9
[2017-10-02 22:00] VITALS: BP 120/68; PULSE 72; TEMP 36.9
[2017-10-02] MEDS ORDERED: OXYCODONE/ACETAMINOPHEN 5-325 TAB ONE (22:10)
[2017-10-02 22:30] VITALS: BP 128/64; PULSE 72; TEMP 36.6
[2017-10-02 23:00] VITALS: BP 116/57; PULSE 83; TEMP 37
[2017-10-02] MEDS: PANTOprazole INJ 40 MG in DEXTROSE 5% 100ML IV SCH (23:03)
[2017-10-03] VITALS (12 sets, daily range): BP systolic 99–148; BP diastolic 50–78; PULSE 60–75; TEMP 36.4–37; O2SAT 92–100; Ht 154.9 cm; Wt 51.0 kg
[2017-10-03] MEDS: CHECK FENTANYL PATCH PLACEMENT SCH ×3 (00:07→16:15)
[2017-10-03] MEDS: PANTOprazole INJ 40 MG in DEXTROSE 5% 100ML IV SCH ×4 (02:50→20:37)
[2017-10-03] MEDS: LORAZEPAM 0.5 MG TAB PO PRN (02:51)
[2017-10-03 08:03] LABS: INR 1.3 (0.9-1.1)
[2017-10-03 08:20] LABS: CALCIUM 9.8 mg/dl (8.5-10.1); CREATININE 1.05 mg/dl (0.60-1.20); POTASSIUM 4.4 mmol/L (3.5-5.1)
[2017-10-03 08:27] LABS: HEMATOCRIT 26.4 % (37-47); HEMOGLOBIN 8.2 g/dL (12.0-16.0); MEAN CORPUSCULAR HEMOGLOBIN 29.2 pg (25-34); MEAN CORPUSCULAR HGB CONC 31.1 g/dl (32-36); MEAN PLATELET VOLUME 8.4 fL (7.4-10.4); PLATELET COUNT 244 K/uL (130-400); RED CELL DISTRIBUTION WIDTH CV 21.7 % (11.5-14.5); RED CELL DISTRIBUTION WIDTH SD 74.6 fL (36.4-46.3); WHITE BLOOD COUNT 4.92 K/uL (4.8-10.8)
[2017-10-03] MEDS: LACTOBACILLUS ACIDOPHILUS (FLORANEX) TAB PO SCH ×3 (09:17→17:47)
[2017-10-03] MEDS: FERROUS SULFATE 325 MG TAB PO SCH ×2 (09:18→20:39)
[2017-10-03] MEDS: FLUTICASONE/SALMETEROL 250/50 (ADVAIR) 14 PUFF/1 INHALER INH SCH ×2 (09:18→20:40)
[2017-10-03] MEDS: FUROSEMIDE 40 MG TAB PO SCH (09:19)
[2017-10-03] MEDS: POTASSIUM CHLORIDE 10 MEQ TABCR PO SCH ×2 (09:19→20:41)
[2017-10-03] MEDS: MAGNESIUM OXIDE 400 MG TAB PO SCH (09:20)
[2017-10-03] MEDS: GABAPENTIN 100 MG CAP PO SCH (09:20)
[2017-10-03] MEDS: PAROXETINE 20 MG TAB PO SCH (09:20)
[2017-10-03] MEDS: METOPROLOL SUCC 25MG EXT REL TAB PO SCH ×2 (09:21→20:40)
[2017-10-03] MEDS: OXYCODONE/ACETAMINOPHEN 5-325 TAB PO PRN ×2 (09:38→20:39)
[2017-10-03] MEDS ORDERED: ACETAMINOPHEN 325 MG TAB PO SCH (11:00)
--- NOTE | 2017-10-03 13:40 | GASTROINTESTINAL CONSULTATION ---
DATE OF CONSULTATION: 10/03/2017 CROSS COVERAGE FOR: [facility] I had the pleasure of seeing Yany Conley today at her bedside. She presented to the Department of Emergency Medicine after she was referred by her PCP for an anemia. Her hemoglobin was noted to be 7.7. She is on Coumadin therapy for a blood clot in her lung and states that her stools have been black for some time. She did have 3 episodes of black stools yesterday. It should be noted that she was seen at [facility] on September 21 and was admitted through the for epistaxis, again noting that she is on anticoagulation therapy for recurrent blood clots in lungs. In any event, at the time of her arrival, she did have an H&H of 7.5 and 25.1. Her MCV was 101.6. She did receive 1 unit of packed red blood cells in transfusion and did have a chest x-ray showing a large hiatal hernia. Her last upper endoscopy was in August [address] Lees and did note a tortuous esophagus, status post dilation, she was found to have patchy candidiasis and a large type 3 paraesophageal hernia was found. There was also inflammation in the stomach noted and her pathology at that time showed chronic gastritis. She is on Protonix 40 mg daily at home. She was subsequently admitted and placed on a Protonix drip at 8 mg per hour and ranitidine 300 mg p.o. at bedtime. At the time that I saw the patient, she did state that she had had a black bowel movement since her arrival last evening, which was confirmed by nursing staff. She has tolerated p.o. intake since she has been here. I had last seen this patient in May of 2017 and at that time she was on hospice therapy, though this has since been rescinded and she did not want any invasive GI testing done at that time. She does state that she would be willing to undergo upper endoscopy during this hospitalization if needed. She denies any abdominal pain, fevers, chills, nausea, vomiting, hematemesis or hematochezia. She denies any further complaints. PAST MEDICAL HISTORY: Significant for coronary artery disease, recurrent pulmonary embolism, recurrent UTI, endometrial cancer status post radiation, IBS, gastroparesis, mood disorder, chronic anemia, C. diff colitis, pulmonary fibrosis, skin cancer and chronic Coumadin therapy. PAST SURGICAL HISTORY: Includes a hysterectomy, knee surgery, aortic valve replacement, and CABG. ALLERGIES: CEFDINIR, CLONAZEPAM, LEVAQUIN, REGLAN, SULFASALAZINE. MEDICATIONS: At the present time include fentanyl patch 25 mcg transdermally every 72 hours, Remeron 50 mg p.o. at bedtime, Zantac 300 mg p.o. at bedtime, Tylenol 650 mg p.o. daily, Feosol 325 mg p.o. b.i.d., Advair Diskus 250/50 one puff via inhaler twice daily, Lasix 40 mg p.o. daily, Neurontin 100 mg p.o. daily, Mag-Ox 400 mg p.o. daily, Toprol-XL 12.5 mg p.o. b.i.d., Paxil 40 mg p.o. daily, Klor-Con 10 mEq p.o. b.i.d., Floranex 1 tab p.o. t.i.d., Protonix 8 mg per hour drip, albuterol 2.5 mg via inhaler q.i.d. p.r.n. shortness of breath and wheezing, Ativan 0.5 mg p.o. at bedtime p.r.n. insomnia, Percocet 5/325 one tab p.o. q. 8 p.r.n. pain, Tylenol 650 mg p.o. q. 4 p.r.n. pain, Maalox 15 mL p.o. q. 4 p.r.n. dyspepsia, milk of magnesia 30 mL p.o. q. 12 p.r.n. constipation, Zofran 4 mg IV q. 6 p.r.n. nausea, Nitrostat 0.4 mg as directed p.r.n. sublingual as needed for chest pain, MiraLax 17 grams p.o. daily p.r.n. constipation. SOCIAL HISTORY: No tobacco, alcohol or illicit drug use. FAMILY HISTORY: Negative for GI malignancy or inflammatory bowel disease. REVIEW OF SYSTEMS: Negative x10 system review other than pertinent positives listed in the HPI. PHYSICAL EXAMINATION: VITAL SIGNS: Temp 36.7, pulse 69, respirations 20, blood pressure 134/73, pulse ox 100% on 2 liters via nasal cannula. GENERAL: Awake, cooperative, chronic ill appearing, in no acute distress. HEAD: Normocephalic, atraumatic. EYES: Pupils equal, round. Extraocular muscles are intact. ENT: External evaluation of ears and nose are normal. Oropharynx is clear. NECK: Soft, supple. No JVD or lymphadenopathy. CHEST: Clear to auscultation bilaterally. CARDIOVASCULAR SYSTEM: Regular rate and rhythm. ABDOMEN: Soft, nontender, nondistended. Positive bowel sounds. There is no hepatosplenomegaly or stigmata of chronic liver disease. EXTREMITIES: No clubbing, cyanosis, or edema. SKIN: Noted pallor. IMPRESSION: An 82-year-old female with a history of epistaxis as well as chronic Coumadin therapy, who presented with anemia, found on routine blood testing. PLAN: Reviewed the patient's medical record does reveal that she is chronically anemic with no normal findings of her H&H since January of 2017. She is having some dark stools and does have a history of gastritis as well as a large paraesophageal hernia. Due to the patient's medical comorbidities as well as her need for continued anticoagulation therapy, I would recommend a conservative approach at this time with a Protonix drip at 8 mg per hour. I will add Carafate 1 gram p.o. q.i.d. a.c. and at bedtime for 10 days. We will monitor her for any further signs of overt GI bleeding. If the patient would develop any hemodynamic instability, consideration could be given to performing an emergent upper endoscopy, though I would like to hold off on this at present as for the reasons noted above. It should be noted that the patient did have p.o. intake today and tolerated it well. Once again, thanks for allowing me to participate in the care of this patient. If you have any further questions, please do not hesitate in contacting me.
[2017-10-03] MEDS: SUCRALFATE 1 GM/10 ML UDC PO SCH ×2 (17:48→20:38)
[2017-10-03 17:50] LABS: HEMATOCRIT 36.1 % (37-47); HEMOGLOBIN 11.4 g/dL (12.0-16.0)
--- NOTE | 2017-10-03 17:55 | Progress Note ---
Internal Med Progress Note Date of Service: Oct 03, 2017. Provider Documentation: SUBJECTIVE: resting comfortably requests for some blood as she is feeling weak denies nausea or abdominal pain no chest pain or sob afebrile hemodynamics stable OBJECTIVE: Vital Signs-as noted below Exam: General-alert and awake. Not in distress ENT-normal hearing Neck-no neck masses Lungs-cta b/l no wheezing or crackles Heart-s1 and s2 heard regular no murmurs Abdomen-soft bowel sounds present non tender no distension Extremities-no edema no erythema Neuro-alert and awake moves extremities Lab data as noted below. ASSESSMENT & PLAN: This is an 82yo F with a PMH of recurrent PE (on Coumadin), CAD s/p stent, diastolic CHF, aortic stenosis (s/p TAVR with bioprosthetic valve in 2015), HTN , h/o c diff and other problems listed below who presents with SOB and generalized weakness x 1 week. Symptomatic anemia 2/2 GI bleed: Presented with Lightheadedness, SOB Having loose melanotic stool x 1 month as per h and p Presented Hgb 7.7 today (baseline ~8-9) on Protonix bolus and drip Holding Coumadin, prednisone C diff negative GI consult and appreciate inputs hb 8.2 today received one more unit today continue to monitor H/o recurrent PEs: Most recent admission for PE in August. On Coumadin Has been hospitalized for epistaxis since then Not a candidate for IVC filter due to chronic nature of PE, per vascular last admission Holding Coumadin for now restart Coumadin when ok by GI CAD (s/p stent), HLD: stable on statin Diastolic CHF: stable on home dose Lasix, beta hayden Aortic stenosis S/p TAVR with bioprosthetic valve in 2016 Pulmonary fibrosis: stable on home inhalers Supplemental O2 PRN Osteoarthritis, chronic pain: on home fentanyl patch, Percocet PRN Holding prednisone in setting of bleed DVT Ppx: teds Code status: FULL but NO mechanical ventilation, per discussion with patient Dispo: monitor in tele to be determined Vital Signs: Date Time Temp Pulse Resp B/P (MAP) Pulse Ox O2 Delivery O2 Flow Rate FiO2 10/03/17 16:14 36.6 68 17 120/66 95 10/03/17 16:00 Room Air 10/03/17 15:00 36.7 60 16 118/67 99 2.0 10/03/17 14:00 36.5 62 17 106/64 98 2.0 10/03/17 13:33 36.5 67 20 104/63 (77) 98 Nasal Cannula 2.0 10/03/17 13:17 36.6 75 18 114/50 95 2.0 10/03/17 10:44 36.7 69 20 134/73 (93) 100 Nasal Cannula 2.0 10/03/17 08:01 36.5 73 20 148/69 (95) 97 Nasal Cannula 3.0 10/03/17 08:00 Nasal Cannula 3.0 10/03/17 04:34 36.6 64 16 122/78 (93) 96 Nasal Cannula 3.0 10/03/17 04:00 Nasal Cannula 3.0 10/03/17 00:00 36.4 65 16 99/54 92 10/02/17 23:59 Room Air 10/02/17 23:00 37.0 83 116/57 10/02/17 22:30 36.6 72 128/64 10/02/17 22:00 36.9 72 120/68 10/02/17 21:45 36.9 78 134/70 10/02/17 21:31 37.0 78 130/68 10/02/17 20:05 37.0 80 20 157/71 95 Room Air 10/02/17 18:56 73 20 122/63 95 Room Air 10/02/17 18:20 75 18 115/59 94 Room Air Lab Results: Results Past 24 Hours Test 10/02/17 17:47 10/02/17 20:30 10/03/17 07:32 10/03/17 10:42 Range/Units White Blood Count 6.94 4.92 4.8-10.8 K/uL Red Blood Count 2.47 2.81 4.2-5.4 M/uL Hemoglobin 7.5 8.2 12.0-16.0 g/dL Hematocrit 25.1 26.4 37-47 % Mean Corpuscular Volume 101.6 94.0 80-100 fL Mean Corpuscular Hemoglobin 30.4 29.2 25-34 pg Mean Corpuscular Hemoglobin Concent 29.9 31.1 32-36 g/dl Platelet Count 288 244 130-400 K/uL Mean Platelet Volume 8.8 8.4 7.4-10.4 fL Neutrophils (%) (Auto) 80.9 % Lymphocytes (%) (Auto) 9.9 % Monocytes (%) (Auto) 7.8 % Eosinophils (%) (Auto) 0.9 % Basophils (%) (Auto) 0.4 % Neutrophils # (Auto) 5.61 1.4-6.5 K/uL Lymphocytes # (Auto) 0.69 1.2-3.4 K/uL Monocytes # (Auto) 0.54 0.11-0.59 K/uL Eosinophils # (Auto) 0.06 0-0.5 K/uL Basophils # (Auto) 0.03 0-0.2 K/uL RDW Standard Deviation 60.5 74.6 36.4-46.3 fL RDW Coefficient of Variation 16.2 21.7 11.5-14.5 % Immature Granulocyte % (Auto) 0.1 % Immature Granulocyte # (Auto) 0.01 0.00-0.02 K/uL Hypochromasia PRESENT Prothrombin Time 15.1 13.4 9.0-12.0 SECONDS Prothromb Time International Ratio 1.4 1.3 0.9-1.1 Activated Partial Thromboplast Time 27.4 21.0-31.0 SECONDS Partial Thromboplastin Ratio 1.1 Sodium Level 138 139 136-145 mmol/L Potassium Level 4.4 4.4 3.5-5.1 mmol/L Chloride Level 102 104 98-107 mmol/L Carbon Dioxide Level 30 32 21-32 mmol/L Anion Gap 6.0 4.0 3-11 mmol/L Blood Urea Nitrogen 19 16 7-18 mg/dl Creatinine 1.17 1.05 0.60-1.20 mg/dl Est Creatinine Clear Calc Drug Dose 29.5 34.0 ml/min Estimated GFR () 49.6 56.5 Estimated GFR (Non- 42.8 48.7 BUN/Creatinine Ratio 16.2 14.9 10-20 Random Glucose 131 91 70-99 mg/dl Calcium Level 9.9 9.8 8.5-10.1 mg/dl Total Bilirubin 0.1 0.2-1 mg/dl Direct Bilirubin < 0.1 0-0.2 mg/dl Aspartate Amino Transf (AST/SGOT) 20 15-37 U/L Alanine Aminotransferase (ALT/SGPT) 16 12-78 U/L Alkaline Phosphatase 90 45-117 U/L Total Creatine Kinase 24 26-192 U/L Creatine Kinase MB 1.0 0.5-3.6 ng/ml Creatine Kinase MB Ratio 4.2 0-3.0 Troponin I 0.016 0-0.045 ng/ml Total Protein 6.7 6.4-8.2 gm/dl Albumin 2.8 3.4-5.0 gm/dl Stool Occult Blood POSITIVE NEGATIVE Magnesium Level 2.2 1.8-2.4 mg/dl Urine Color YELLOW Urine Appearance CLEAR CLEAR Urine pH 6.5 4.5-7.5 Urine Specific [place] 1.006 1.000-1.030 Urine Protein NEG NEG Urine Glucose (UA) NEG NEG Urine Ketones NEG NEG Urine Occult Blood NEG NEG Urine Nitrite NEG NEG Urine Bilirubin NEG NEG Urine Urobilinogen NEG NEG Urine Leukocyte Esterase TRACE NEG Urine WBC (Auto) 1-5 0-5 /hpf Urine RBC (Auto) 0-4 0-4 /hpf Urine Hyaline Casts (Auto) 0 0-5 /lpf Urine Epithelial Cells (Auto) 5-10 0-5 /lpf Urine Bacteria (Auto) NEG NEG Test 10/03/17 16:00 Range/Units Microbiology Results 10/02/17 C.difficile Toxin B Gene (PCR) - Final, Complete No C. difficile toxin B gene detected
[2017-10-03] MEDS: ALBUTEROL 0.083% NEBU SOLN 3 ML VIAL INH PRN (18:04)
[2017-10-03] MEDS: MIRTAZAPINE SOLTAB 15 MG PO SCH (20:41)
[2017-10-03] MEDS: RANITIDINE HCL 150 MG TAB PO SCH (20:42)
[2017-10-04] VITALS (9 sets, daily range): BP systolic 103–175; BP diastolic 61–78; PULSE 73–84; TEMP 36.7–37.4; O2SAT 94–99
[2017-10-04] MEDS: PANTOprazole INJ 40 MG in DEXTROSE 5% 100ML IV SCH ×6 (02:14→22:40)
[2017-10-04] MEDS: OXYCODONE/ACETAMINOPHEN 5-325 TAB PO PRN ×2 (06:37→16:03)
[2017-10-04 06:48] LABS: INR 1.2 (0.9-1.1)
[2017-10-04 06:53] LABS: HEMATOCRIT 37.3 % (37-47); MEAN CELL VOLUME 92.8 fL (80-100); MEAN CORPUSCULAR HEMOGLOBIN 29.9 pg (25-34); MEAN CORPUSCULAR HGB CONC 32.2 g/dl (32-36); MEAN PLATELET VOLUME 9.1 fL (7.4-10.4); PLATELET COUNT 222 K/uL (130-400); RED CELL DISTRIBUTION WIDTH CV 19.7 % (11.5-14.5); RED CELL DISTRIBUTION WIDTH SD 67.5 fL (36.4-46.3); WHITE BLOOD COUNT 6.09 K/uL (4.8-10.8)
[2017-10-04 07:00] LABS: CALCIUM 10.1 mg/dl (8.5-10.1); CREATININE 1.1 mg/dl (0.60-1.20); POTASSIUM 4.2 mmol/L (3.5-5.1)
[2017-10-04] MEDS: LACTOBACILLUS ACIDOPHILUS (FLORANEX) TAB PO SCH ×3 (07:45→17:09)
[2017-10-04] MEDS: CHECK FENTANYL PATCH PLACEMENT SCH ×3 (07:46→15:53)
[2017-10-04] MEDS: SUCRALFATE 1 GM/10 ML UDC PO SCH ×4 (08:45→20:49)
[2017-10-04] MEDS: FERROUS SULFATE 325 MG TAB PO SCH ×2 (08:45→20:49)
[2017-10-04] MEDS: FLUTICASONE/SALMETEROL 250/50 (ADVAIR) 14 PUFF/1 INHALER INH SCH ×2 (08:45→20:50)
[2017-10-04] MEDS: MAGNESIUM OXIDE 400 MG TAB PO SCH (08:46)
[2017-10-04] MEDS: FUROSEMIDE 40 MG TAB PO SCH (08:46)
[2017-10-04] MEDS: POTASSIUM CHLORIDE 10 MEQ TABCR PO SCH ×2 (08:46→20:50)
[2017-10-04] MEDS: GABAPENTIN 100 MG CAP PO SCH (08:47)
[2017-10-04] MEDS: METOPROLOL SUCC 25MG EXT REL TAB PO SCH ×2 (08:47→20:48)
[2017-10-04] MEDS: PAROXETINE 20 MG TAB PO SCH (08:47)
[2017-10-04] MEDS: ALBUTEROL 0.083% NEBU SOLN 3 ML VIAL INH PRN (10:02)
--- NOTE | 2017-10-04 11:04 | Progress Note ---
Internal Med Progress Note Date of Service: Oct 04, 2017. Provider Documentation: SUBJECTIVE: resting comfortably tolerating clears no nausea or abdominal pain afebrile no sob or chest pain has some cough has congestions of the sinuses OBJECTIVE: Vital Signs-as noted below Exam: General-alert and awake. Not in distress ENT-normal hearing Neck-no neck masses Lungs-cta b/l no wheezing or crackles Heart-s1 and s2 heard regular no murmurs Abdomen-soft bowel sounds present non tender no distension Extremities-no edema no erythema Neuro-alert and awake moves extremities Lab data as noted below. ASSESSMENT & PLAN: This is an 82yo F with a PMH of recurrent PE (on Coumadin), CAD s/p stent, diastolic CHF, aortic stenosis (s/p TAVR with bioprosthetic valve in 2016), HTN , h/o c diff and other problems listed below who presents with SOB and generalized weakness x 1 week. Symptomatic anemia 2/2 GI bleed: Presented with Lightheadedness, SOB Having loose melanotic stool x 1 month as per h and p Presented Hgb 7.7 today (baseline ~8-9) on Protonix bolus and drip Holding Coumadin, prednisone C diff negative GI consult and appreciate inputs received total of 2 units hb 12.0 today continue to monitor H/o recurrent PEs: Most recent admission for PE in August. On Coumadin Has been hospitalized for epistaxis since then Not a candidate for IVC filter due to chronic nature of PE, per vascular last admission Holding Coumadin for now restart Coumadin when ok by GI patient likes to think about restarting Coumadin CAD (s/p stent), HLD: stable on statin Diastolic CHF: stable on home dose Lasix, beta hayden Aortic stenosis S/p TAVR with bioprosthetic valve in 2016 Pulmonary fibrosis: stable on home inhalers Supplemental O2 PRN Osteoarthritis, chronic pain: on home fentanyl patch, Percocet PRN Holding prednisone in setting of bleed request if we can do anything about her severe left knee pain and shoulder pain. says steroids shots didn't helped DVT Ppx: teds Code status: FULL but NO mechanical ventilation, per discussion with patient Dispo: monitor in tele pt/ot to be determined Vital Signs: Date Time Temp Pulse Resp B/P (MAP) Pulse Ox O2 Delivery O2 Flow Rate FiO2 10/04/17 10:02 73 18 99 Nasal Cannula 4.0 10/04/17 08:00 3.0 10/04/17 07:49 36.9 78 20 131/71 (91) 95 Room Air 10/04/17 04:03 36.7 74 22 139/62 (87) 95 Room Air 10/04/17 04:00 Room Air 10/03/17 23:59 Room Air 10/03/17 23:42 37.0 69 18 118/71 (87) 94 Room Air 10/03/17 20:00 Room Air 10/03/17 19:09 36.7 75 18 113/55 (74) 95 Room Air 10/03/17 18:05 72 18 97 Room Air 10/03/17 16:14 36.6 68 17 120/66 95 10/03/17 16:00 Room Air 10/03/17 15:00 36.7 60 16 118/67 99 2.0 10/03/17 14:00 36.5 62 17 106/64 98 2.0 10/03/17 13:33 36.5 67 20 104/63 (77) 98 Nasal Cannula 2.0 10/03/17 13:17 36.6 75 18 114/50 95 2.0 Lab Results: Results Past 24 Hours Test 10/03/17 17:20 10/04/17 05:52 Range/Units Hemoglobin 11.4 12.0 12.0-16.0 g/dL Hematocrit 36.1 37.3 37-47 % White Blood Count 6.09 4.8-10.8 K/uL Red Blood Count 4.02 4.2-5.4 M/uL Mean Corpuscular Volume 92.8 80-100 fL Mean Corpuscular Hemoglobin 29.9 25-34 pg Mean Corpuscular Hemoglobin Concent 32.2 32-36 g/dl RDW Standard Deviation 67.5 36.4-46.3 fL RDW Coefficient of Variation 19.7 11.5-14.5 % Platelet Count 222 130-400 K/uL Mean Platelet Volume 9.1 7.4-10.4 fL Prothrombin Time 12.5 9.0-12.0 SECONDS Prothromb Time International Ratio 1.2 0.9-1.1 Sodium Level 137 136-145 mmol/L Potassium Level 4.2 3.5-5.1 mmol/L Chloride Level 101 98-107 mmol/L Carbon Dioxide Level 30 21-32 mmol/L Anion Gap 6.0 3-11 mmol/L Blood Urea Nitrogen 13 7-18 mg/dl Creatinine 1.10 0.60-1.20 mg/dl Est Creatinine Clear Calc Drug Dose 32.5 ml/min Estimated GFR () 53.4 Estimated GFR (Non- 46.1 BUN/Creatinine Ratio 11.7 10-20 Random Glucose 82 70-99 mg/dl Calcium Level 10.1 8.5-10.1 mg/dl Magnesium Level 2.0 1.8-2.4 mg/dl
--- NOTE | 2017-10-04 13:00 | PROGRESS NOTE ---
DATE: 10/04/2017 RACE: : This is in cross coverage for [employer]. HISTORY OF PRESENT ILLNESS: I had the pleasure of seeing Yany Conley today at her bedside. She states she is feeling slightly improved today, though continues to have multiple black stools overnight and black smears per nursing team. She did receive 2 units of packed red blood cells since her arrival. Her H&H is resins significantly to today's level of 12.0 and 37.3. She has had no signs of hemodynamic instability. She denies any further complaints and states that she is tolerating a liquid diet. PHYSICAL EXAMINATION: VITAL SIGNS: Temp 36.9, pulse 73, respirations 18, blood pressure 131/71, and pulse ox 99% on 4 liters via nasal cannula. GENERAL: Awake, cooperative, chronic ill appearing, in no acute distress. ABDOMEN: Soft, nontender, nondistended. Positive bowel sounds. LABORATORY STUDIES: Reviewed in the HPI. IMPRESSION: An 82-year-old female with presentation of anemia, melena and chronic Coumadin therapy. PLAN: I would recommend keeping the patient n.p.o. after midnight. I will [facility]. I would continue her current therapy including a Protonix drip and further recommendations will be given following the above-noted testing. Once again, thanks for allowing me to participate in the care of this patient. If you have any further questions, please do not hesitate in contacting me.
--- NOTE | 2017-10-04 15:51 | Orthopedic Consultation ---
Orthopedic Consultation Date of Consultation: Oct 04, 2017. Attending Physician: Joshua Engel MD Reason for Consultation: Left shoulder, left knee pain History of Present Illness The patient is an 82-year-old female with significant past medical history for recurrent PE, on Coumadin, CAD status post stent, diastolic CHF, aortic stenosis status post TAVR with bioprosthetic valve in 2016, hypertension, C. difficile. Currently admitted to the hospital for complaints of lightheadedness , shortness of breath and generalized weakness. Found to be anemic currently being evaluated for GI bleed. Has long standing history of chronic atraumatic left shoulder and left knee pain. Has long-standing history of severe DJD and prior left knee arthroscopy. Was seen August 27 by orthopedic team, Dr. Lynn, had injections of the left shoulder and left knee at her prior admission. She states she had improvement in her symptoms 5 days otherwise pain has persisted and is unchanged. Denies numbness tingling in left upper extremity and left lower extremity. Pain is persistent and worse with activity. Does not take anti-inflammatory secondary to being on blood thinners. Past Medical/Surgical History Medical Problems: (1) Acute kidney injury Status: Acute (2) Ambulatory dysfunction Status: Acute (3) Anemia Status: Chronic (4) Anticoagulated on Coumadin Status: Acute (5) Anticoagulated on Coumadin Status: Acute (6) Bronchitis with bronchospasm Status: Acute (7) Change in mental status Status: Acute (8) Contusion of left knee Status: Acute (9) Creatinine elevation Status: Acute (10) Dehydration Status: Acute (11) Dehydration Status: Acute (12) Dehydration Status: Acute (13) Dyspnea Status: Acute (14) Dyspnea Status: Acute (15) GI bleed Status: Acute (16) GI bleed Status: Acute (17) Hypotension Status: Acute (18) Melena Status: Acute (19) Pulmonary embolism Status: Acute (20) SBO (small bowel obstruction) Status: Acute (21) Sepsis due to urinary tract infection Status: Acute (22) Small bowel obstruction Status: Acute (23) Small bowel obstruction Status: Acute (24) SOB (shortness of breath) Status: Acute (25) Subtherapeutic international normalized ratio (INR) Status: Acute (26) Symptomatic anemia Status: Acute (27) Symptomatic anemia Status: Acute (28) Upper GI bleed Status: Acute (29) Urinary tract infection Status: Acute (30) UTI (urinary tract infection) Status: Acute (31) Weakness Status: Acute (32) Weakness Status: Acute Family History Cancer Diabetes mellitus FH: cardiovascular disease MOTHER Gallbladder disease Hypertension Social History Smoking Status: Never Smoker Drug Use: none Marital Status: Housing Status: lives alone Occupation Status: retired Allergies Coded Allergies: Cefdinir (Verified Allergy, Mild, RASH-HAS HAD ROCEPHIN,CEFEPIME MANY TIMES, 09/21/17) Clonazepam (Verified Allergy, Unknown, ., 09/21/17) Levofloxacin (Verified Allergy, Unknown, unknown, 09/21/17) Sulfasalazine (Verified Allergy, Unknown, ., 09/21/17) Metoclopramide (Verified Adverse Reaction, Intermediate, TREMORS, 09/21/17) Home Medications Scheduled Ascorbic Acid (Ascorbic Acid), 250 MG PO DAILY Docusate Sodium (Colace), 1 CAP PO BID Fentanyl (Fentanyl), 25 MCG TOP [id number] Ferrous Sulfate (Ferrous Sulfate), 325 MG PO BID Fluticasone Prop/Salmeterol (Advair Diskus 250/50 60 Dose), 1 PUFF INH BID Furosemide (Lasix), 40 MG PO DAILY Gabapentin (Neurontin), 100 MG PO DAILY Home O2 Therapy (Oxygen), 3 LITERS NA UD Lactobacillus Acidophilus (Floranex), 1 TAB PO TIDM Magnesium Oxide (Mag-Ox), 400 MG PO DAILY Metoprolol Succinate (Metoprolol Succinate ER), 12.5 MG PO BID Mirtazapine Soltab (Remeron Soltab), 15 MG PO HS Multiple Vitamin (Multivitamin), 0.5 TABLET PO DAILY Pantoprazole (Protonix), 40 MG PO DAILY Paroxetine (Paroxetine HCl), 40 MG PO DAILY Potassium Chloride (Potassium Chloride Er), 10 MEQ PO BID Prednisone (Prednisone), 5 MG PO DAILY Ranitidine (Zantac), 300 MG PO HS Senna (Senokot), 1 TAB PO BID Warfarin Sodium (Coumadin), 3 MG PO DAILY Scheduled PRN Acetaminophen (Acetaminophen), 650 MG PO for Pain Albuterol Sulf (Proventil 0.083% 2.5MG/3ML), 2.5 MG INH QID PRN for SOB/Wheezing Lorazepam (Lorazepam), 0.5 MG PO HS PRN for Insomnia Ondansetron Hcl (Zofran), 4 MG PO Q6 PRN for Nausea Oxycodone/Acetaminophen 5MG/325MG (Percocet 5MG/325MG), 1 TABLET PO Q8H PRN for Pain Polyethylene (Miralax), 17 GM PO DAILY PRN for Constipation Current Inpatient Medications Current Inpatient Medications Medications (Trade) Dose Ordered Sig/Rosi Route Start Time Stop Time Status Last Admin Dose Admin Acetaminophen (Tylenol Tab) 650 mg Q4H PRN PO 10/02/17 21:00 11/01/17 20:59 Al Hydrox/Mg Hydrox/Simethicone (Maalox Max Susp) 15 ml Q4H PRN PO 10/02/17 21:00 11/01/17 20:59 Magnesium Hydroxide (Milk Of Magnesia Susp) 30 ml Q12H PRN PO 10/02/17 21:00 11/01/17 20:59 Ondansetron HCl (Zofran Inj) 4 mg Q6H PRN IV 10/02/17 21:00 11/01/17 20:59 Nitroglycerin (Nitrostat Tab) 0.4 mg UD PRN SL 10/02/17 21:00 11/01/17 20:59 Polyethylene (Miralax Powder Packet) 17 gm DAILY PRN PO 10/02/17 21:00 11/01/17 20:59 Pantoprazole Sodium 40 mg/ Dextrose 100 ml @ 20 mls/hr Q5H IV 10/02/17 21:15 11/01/17 21:14 10/04/17 13:39 20 MLS/HR Albuterol Sulfate (Ventolin 0.083% 2.5MG/3ML Neb) 2.5 mg QID PRN INH 10/02/17 21:15 11/01/17 21:14 10/04/17 10:02 2.5 MG Fentanyl (Duragesic Patch) 25 mcg Q72H TD 10/05/17 09:00 10/19/17 08:59 Ferrous Sulfate (Feosol Tab) 325 mg BID PO 10/03/17 09:00 11/02/17 08:59 10/04/17 08:45 325 MG Salmeterol Xinafoate/ Fluticasone (Advair Diskus 250/50 Inh) 1 puff BID INH 10/03/17 09:00 11/02/17 08:59 10/04/17 08:45 1 PUFF Furosemide (Lasix Tab) 40 mg DAILY PO 10/03/17 09:00 11/02/17 08:59 10/04/17 08:46 40 MG Gabapentin (Neurontin Cap) 100 mg DAILY PO 10/03/17 09:00 11/02/17 08:59 10/04/17 08:47 100 MG Lactobacillus Acidophilus (Floranex Tab) 1 tab TIDM PO 10/03/17 07:30 11/02/17 07:29 10/04/17 11:52 1 TAB Lorazepam (Ativan Tab) 0.5 mg HS PRN PO 10/02/17 21:15 11/01/17 21:14 10/03/17 02:51 0.5 MG Magnesium Oxide (Mag-Ox Tab) 400 mg DAILY PO 10/03/17 09:00 11/02/17 08:59 10/04/17 08:46 400 MG Metoprolol Succinate (Toprol Xl Tab) 12.5 mg BID PO 10/03/17 09:00 11/02/17 08:59 10/04/17 08:47 12.5 MG Mirtazapine (Remeron Solutab) 15 mg HS PO 10/03/17 21:00 11/02/17 20:59 10/03/17 20:41 15 MG Oxycodone/ Acetaminophen (Percocet 5-325mg Tab) 1 tab Q8H PRN PO 10/02/17 21:15 10/16/17 21:14 10/04/17 06:37 1 TAB Paroxetine HCl (pAXil TAB) 40 mg DAILY PO 10/03/17 09:00 11/02/17 08:59 10/04/17 08:47 40 MG Potassium Chloride (Klor-Con M10) 10 meq BID PO 10/03/17 09:00 11/02/17 08:59 10/04/17 08:46 10 MEQ Ranitidine HCl (zANTac TAB) 300 mg HS PO 10/03/17 21:00 11/02/17 20:59 10/03/17 20:42 300 MG Miscellaneous (Fentanyl Patch Remove & Waste) 1 ea Q72H N/A 10/05/17 08:59 11/04/17 08:58 Miscellaneous Information (Check Fentanyl Patch Placement) 1 ea QS N/A 10/03/17 00:00 11/02/17 00:00 10/04/17 07:46 1 EA Sucralfate (Carafate Susp) 1 gm QID PO 10/03/17 17:00 11/02/17 16:59 10/04/17 13:19 1 GM Albuterol Sulfate (Ventolin 0.083% 2.5MG/3ML Neb) 2.5 mg BIDR INH 10/04/17 10:15 11/03/17 10:14 Review of Systems Review of systems negative with the exception of those mentioned in the HPI above. Physical Exam Date Time Temp Pulse Resp B/P (MAP) Pulse Ox O2 Delivery O2 Flow Rate FiO2 10/04/17 12:01 37.3 78 20 118/68 (85) 96 Room Air 10/04/17 12:00 Room Air 10/04/17 10:02 73 18 99 Nasal Cannula 4.0 10/04/17 08:00 3.0 10/04/17 07:49 36.9 78 20 131/71 (91) 95 Room Air 10/04/17 04:03 36.7 74 22 139/62 (87) 95 Room Air 10/04/17 04:00 Room Air 10/03/17 23:59 Room Air 10/03/17 23:42 37.0 69 18 118/71 (87) 94 Room Air 10/03/17 20:00 Room Air 10/03/17 19:09 36.7 75 18 113/55 (74) 95 Room Air 10/03/17 18:05 72 18 97 Room Air 10/03/17 16:14 36.6 68 17 120/66 95 10/03/17 16:00 Room Air No apparent distress, alert and oriented 3 Left upper extremity: NVSI +R/U/M/AIN/PIN, SILT grossly, +2 radial pulse, compartment soft NT, no erythema, decreased active ROM FF 45, abd 45, passive FF 160, abduction 160, ext rot 25. 4/5 muscle strength L shoulder, elbow, wrist. +anterior/superior escape shoulder ROM. Left lower extremity: NVSI +EHL/FHL/TA/GS SILT grossly, CR< 2 seconds, compartments soft, mild effusion, no erythema, genu valgum appearance, +crepitus , +MJLT, LJLT. 0-110 flexion. Laboratory Results Last 24 Hours Test 10/03/17 17:20 10/04/17 05:52 Hemoglobin 11.4 g/dL 12.0 g/dL Hematocrit 36.1 % 37.3 % White Blood Count 6.09 K/uL Red Blood Count 4.02 M/uL Mean Corpuscular Volume 92.8 fL Mean Corpuscular Hemoglobin 29.9 pg Mean Corpuscular Hemoglobin Concent 32.2 g/dl RDW Standard Deviation 67.5 fL RDW Coefficient of Variation 19.7 % Platelet Count 222 K/uL Mean Platelet Volume 9.1 fL Prothrombin Time 12.5 SECONDS Prothromb Time International Ratio 1.2 Sodium Level 137 mmol/L Potassium Level 4.2 mmol/L Chloride Level 101 mmol/L Carbon Dioxide Level 30 mmol/L Anion Gap 6.0 mmol/L Blood Urea Nitrogen 13 mg/dl Creatinine 1.10 mg/dl Est Creatinine Clear Calc Drug Dose 32.5 ml/min Estimated GFR () 53.4 Estimated GFR (Non- 46.1 BUN/Creatinine Ratio 11.7 Random Glucose 82 mg/dl Calcium Level 10.1 mg/dl Magnesium Level 2.0 mg/dl Assessment & Plan Severe atraumatic, aseptic left shoulder and left knee pain Patient is known to have 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 There is also sclerosis and chondrocalcinosis present. Prior shoulder x-rays taken on 08/23/2017 demonstrate moderate AC joint DJD, severe glenohumeral joint DJD with subchondral cysts and sclerosis and osteophytes. I will obtain new images today of the left shoulder and left knee. I will also order Lidoderm patches as needed for pain. The patient is a poor surgical candidate however would consider other conservative treatment measures such as physical therapy, bracing, repeat injections once she is medically stable. We will not be able to repeat corticosteroid injections for 3 months, prior injections were performed on 08/27/2017. Thank you for the consultation.
--- NOTE | 2017-10-04 16:39 | DIAGNOSTIC IMAGING REPORT ---
LEFT KNEE 4 VIEWS CLINICAL HISTORY: Chronic left knee pain. FINDINGS: AP, crosstable lateral, tunnel, and sunrise portable views of left knee are compared to study dated 08/26/2017. The skeletal structures are osteopenic. No fracture is seen. There is advanced degenerative narrowing in the lateral and patellofemoral compartments. There is bony sclerosis in the lateral compartment with subchondral cyst formation. No osteochondral defect is suggested on the tunnel view. There are small marginal osteophytes. Chondrocalcinosis is noted in the medial compartment. There is a small joint effusion. Soft tissue swelling is present around the knee. Atherosclerotic calcification is observed in the popliteal artery. IMPRESSION: 1. Small joint effusion and soft tissue swelling. No acute bony abnormality is identified. 2. Osteopenia, arthritic change and chondrocalcinosis as above. No change from 08/26/2017. Electronically signed by: Williams Irizarry M.D. 10/04/2017 4:38 PM Dictated Date/Time: 10/04/2017 4:36 PM
--- NOTE | 2017-10-04 16:41 | DIAGNOSTIC IMAGING REPORT ---
LEFT SHOULDER 2 VIEWS CLINICAL HISTORY: Left shoulder pain. FINDINGS: 2 views of the left shoulder are compared to study dated 08/23/2017. The skeletal structures are osteopenic. No fracture or dislocation is identified. Arthritic change with joint space narrowing and bony sclerosis is seen at the glenohumeral articulation. Mild productive change is identified at the acromioclavicular joint. There are healed left-sided rib fractures. Calcific tendinopathy versus calcified bursitis is again noted. The heart is enlarged and there is atherosclerotic calcification of the thoracic aorta. Postoperative changes suggest previous cardiac valve surgery. The left lung parenchyma is grossly clear as imaged. IMPRESSION: 1. Osteopenia and arthritic change as above. No fracture or dislocation is seen. 2. No significant change from 08/23/2017. Electronically signed by: Williams Irizarry M.D. 10/04/2017 4:40 PM Dictated Date/Time: 10/04/2017 4:38 PM
[2017-10-04 19:26] LABS: HEMOGLOBIN 11.4 g/dL (12.0-16.0)
[2017-10-04] MEDS: ALBUTEROL 0.083% NEBU SOLN 3 ML VIAL INH SCH (19:54)
[2017-10-04] MEDS: ACETAMINOPHEN 325 MG TAB PO PRN (20:47)
[2017-10-04] MEDS: RANITIDINE HCL 150 MG TAB PO SCH (20:49)
[2017-10-04] MEDS: MIRTAZAPINE SOLTAB 15 MG PO SCH (20:49)
[2017-10-05] VITALS (8 sets, daily range): BP systolic 83–165; BP diastolic 41–83; PULSE 68–80; TEMP 36.6–37.5; O2SAT 92–99
[2017-10-05] MEDS: CHECK FENTANYL PATCH PLACEMENT SCH ×3 (00:24→15:48)
[2017-10-05] MEDS: PANTOprazole INJ 40 MG in DEXTROSE 5% 100ML IV SCH (03:51)
[2017-10-05] MEDS: ALBUTEROL 0.083% NEBU SOLN 3 ML VIAL INH SCH ×2 (07:11→20:01)
[2017-10-05] MEDS: LACTOBACILLUS ACIDOPHILUS (FLORANEX) TAB PO SCH ×3 (07:30→16:41)
[2017-10-05 07:48] LABS: HEMATOCRIT 37.5 % (37-47); MEAN CELL VOLUME 93.3 fL (80-100); MEAN CORPUSCULAR HEMOGLOBIN 29.9 pg (25-34); MEAN PLATELET VOLUME 9.2 fL (7.4-10.4); PLATELET COUNT 237 K/uL (130-400); RED CELL DISTRIBUTION WIDTH CV 18.7 % (11.5-14.5); RED CELL DISTRIBUTION WIDTH SD 64.1 fL (36.4-46.3); WHITE BLOOD COUNT 7.23 K/uL (4.8-10.8)
[2017-10-05 08:19] LABS: CALCIUM 9.9 mg/dl (8.5-10.1); CREATININE 1.34 mg/dl (0.60-1.20)
[2017-10-05] MEDS: OXYCODONE/ACETAMINOPHEN 5-325 TAB PO PRN ×2 (08:34→16:56)
[2017-10-05] MEDS: SUCRALFATE 1 GM/10 ML UDC PO SCH ×4 (08:36→20:03)
[2017-10-05] MEDS: MAGNESIUM OXIDE 400 MG TAB PO SCH (08:36)
[2017-10-05] MEDS: FLUTICASONE/SALMETEROL 250/50 (ADVAIR) 14 PUFF/1 INHALER INH SCH ×2 (08:36→20:03)
[2017-10-05] MEDS: FERROUS SULFATE 325 MG TAB PO SCH ×2 (08:36→20:03)
[2017-10-05] MEDS: FUROSEMIDE 40 MG TAB PO SCH (08:36)
[2017-10-05] MEDS: POTASSIUM CHLORIDE 10 MEQ TABCR PO SCH ×2 (08:36→20:03)
[2017-10-05] MEDS: PAROXETINE 20 MG TAB PO SCH (08:37)
[2017-10-05] MEDS: GABAPENTIN 100 MG CAP PO SCH (08:37)
[2017-10-05 08:39] LABS: INR 1.3 (0.9-1.1)
[2017-10-05] MEDS: METOPROLOL SUCC 25MG EXT REL TAB PO SCH ×2 (08:39→20:04)
[2017-10-05] MEDS: FENTANYL PATCH REMOVE & WASTE SCH (08:59)
--- NOTE | 2017-10-05 09:29 | Progress Note ---
Internal Med Progress Note Date of Service: Oct 05, 2017. Provider Documentation: SUBJECTIVE: has mild headache says she had mild fever last night denies sob or chest pain has some cough thinks has mucus in the chest has chronic pain awaiting egd today OBJECTIVE: Vital Signs-as noted below Exam: General-alert and awake. Not in distress ENT-normal hearing Neck-no neck masses Lungs-cta b/l no wheezing or crackles Heart-s1 and s2 heard regular no murmurs Abdomen-soft bowel sounds present non tender no distension Extremities-no edema no erythema Neuro-alert and awake moves extremities Lab data as noted below. ASSESSMENT & PLAN: This is an 82yo F with a PMH of recurrent PE (on Coumadin), CAD s/p stent, diastolic CHF, aortic stenosis (s/p TAVR with bioprosthetic valve in 2015), HTN , h/o c diff and other problems listed below who presents with SOB and generalized weakness x 1 week. Symptomatic anemia 2/2 GI bleed: Presented with Lightheadedness, SOB Having loose melanotic stool x 1 month as per h and p Presented Hgb 7.7 (baseline ~8-9) on Protonix bolus and drip Holding Coumadin, prednisone C diff negative GI consult and appreciate inputs received total of 2 units hb 12.0 today s/p egd today-unremarkable H/o recurrent PEs: Most recent admission for PE in August. On Coumadin Has been hospitalized for epistaxis since then Not a candidate for IVC filter due to chronic nature of PE, per vascular last admission Holding Coumadin for now restart Coumadin when ok by GI patient likes to think about restarting Coumadin stable currently. will d/w again about restarting coumadin CAD (s/p stent), HLD: stable on statin Diastolic CHF: stable on home dose Lasix, beta hayden Aortic stenosis S/p TAVR with bioprosthetic valve in 2016 Pulmonary fibrosis: stable on home inhalers Supplemental O2 PRN Osteoarthritis, chronic pain: on home fentanyl patch, Percocet PRN Holding prednisone in setting of bleed requests if we can do anything about her severe left knee pain and shoulder pain. says steroids shots didn't helped consulted ortho-appreciate inputs DVT Ppx: teds Code status: FULL but NO mechanical ventilation, per discussion with patient Dispo: monitor in tele pt/ot possible d/c in 1-2 days Vital Signs: Date Time Temp Pulse Resp B/P (MAP) Pulse Ox O2 Delivery O2 Flow Rate FiO2 10/05/17 15:50 92 Room Air 10/05/17 15:42 37.5 78 16 94/59 (71) 92 Room Air 83/41 (55) 10/05/17 13:00 Room Air 10/05/17 11:53 37.3 77 16 107/63 (78) 94 Room Air 10/05/17 11:30 76 16 140/96 (111) 96 Room Air 10/05/17 11:15 74 16 127/73 (91) 96 Room Air 10/05/17 11:00 77 12 117/69 (85) 97 Room Air 10/05/17 09:57 37.0 74 16 120/52 (74) 97 Room Air 10/05/17 07:44 37.0 75 20 131/77 (95) 97 Room Air 10/05/17 07:30 Room Air 10/05/17 07:11 80 16 92 Nasal Cannula 3.0 10/05/17 04:27 36.6 68 18 165/83 (110) 99 Nasal Cannula 3.0 10/05/17 04:00 Nasal Cannula 3.0 10/04/17 23:59 Nasal Cannula 3.0 10/04/17 23:35 37.0 83 18 103/61 (75) 97 Nasal Cannula 3.0 10/04/17 20:45 84 117/67 (84) 10/04/17 19:54 76 18 95 Nasal Cannula 3.0 10/04/17 19:45 Room Air 10/04/17 19:41 37.4 84 18 146/77 (100) 94 Room Air Lab Results: Results Past 24 Hours Test 10/04/17 19:17 10/05/17 07:22 10/05/17 08:10 Range/Units Hemoglobin 11.4 12.0 12.0-16.0 g/dL Hematocrit 35.0 37.5 37-47 % White Blood Count 7.23 4.8-10.8 K/uL Red Blood Count 4.02 4.2-5.4 M/uL Mean Corpuscular Volume 93.3 80-100 fL Mean Corpuscular Hemoglobin 29.9 25-34 pg Mean Corpuscular Hemoglobin Concent 32.0 32-36 g/dl RDW Standard Deviation 64.1 36.4-46.3 fL RDW Coefficient of Variation 18.7 11.5-14.5 % Platelet Count 237 130-400 K/uL Mean Platelet Volume 9.2 7.4-10.4 fL Sodium Level 135 136-145 mmol/L Potassium Level 4.0 3.5-5.1 mmol/L Chloride Level 99 98-107 mmol/L Carbon Dioxide Level 33 21-32 mmol/L Anion Gap 3.0 3-11 mmol/L Blood Urea Nitrogen 15 7-18 mg/dl Creatinine 1.34 0.60-1.20 mg/dl Est Creatinine Clear Calc Drug Dose 26.0 ml/min Estimated GFR () 42.1 Estimated GFR (Non- 36.3 BUN/Creatinine Ratio 11.0 10-20 Random Glucose 78 70-99 mg/dl Calcium Level 9.9 8.5-10.1 mg/dl Magnesium Level 1.8 1.8-2.4 mg/dl Prothrombin Time 13.2 9.0-12.0 SECONDS Prothromb Time International Ratio 1.3 0.9-1.1
[2017-10-05] MEDS ORDERED: PROPOFOL IV EMULSION 10 MG/ML 20 ML VIAL IV ONE (10:26)
[2017-10-05] MEDS ORDERED: LIDOCAINE HCL 2% 2 ML VIAL (20MG/ML) ONE (10:26)
--- NOTE | 2017-10-05 10:47 | Endo History and Physical ---
History & Physical Date of Service: Oct 05, 2017. Chief Complaint: anemia Referring Physician: History of Present Illness Anemia Past Medical History Pulmonary Emboli, Cancer, CHF, Hypertension, COPD, Kidney Disease, Depression Past Surgical History Hx Cardiac Surgery: No Hx Pacemaker: No Hx Abdominal Surgery: No Hx Post-Op Nausea and Vomiting: No (Pt denies) Hx Cancer Surgery: Yes (endometrial; basal cell ) Hx Thoracic Surgery: No Hx Orthopedic: Yes (left knee) Hx Urinary Tract Surgery: Yes (cystoscope) Social History Smoking Status: Never Smoker Hx Substance Use: No Hx Alcohol Use: No Allergies Coded Allergies: Cefdinir (Verified Allergy, Mild, RASH-HAS HAD ROCEPHIN,CEFEPIME MANY TIMES, 09/21/17) Clonazepam (Verified Allergy, Unknown, ., 09/21/17) Levofloxacin (Verified Allergy, Unknown, unknown, 09/21/17) Sulfasalazine (Verified Allergy, Unknown, ., 09/21/17) Metoclopramide (Verified Adverse Reaction, Intermediate, TREMORS, 09/21/17) Current Medications Reported Home Medications Medications Dose Route/Sig Max Daily Dose Days Date Category Dose Instructions Lasix (Furosemide) 40 Mg Tab 40 Mg PO DAILY 10/02/17 Reported Take 40mg daily. Take extra 1/2 tab for fluid accumulation or weight gain. Zantac (Ranitidine HCl) 300 Mg Tab 300 Mg PO HS 10/02/17 Reported Prednisone 5 Mg Tab 5 Mg PO DAILY 10/02/17 Reported Coumadin (Warfarin Sodium) 3 Mg Tab 3 Mg PO DAILY 10/02/17 Reported Per coag clinic: 2 mg daily Neurontin (Gabapentin) 100 Mg Cap 100 Mg PO DAILY 09/21/17 Reported Miralax (Polyethylene) 17 Gm Pow 17 Gm PO DAILY PRN 08/31/17 Rx Floranex (Lactobacillus Acidophilus) 1 Tab Tab 1 Tab PO TIDM 08/31/17 Rx Fentanyl 25 Mcg Tdsy 25 Mcg TOP [id number] 08/22/17 Reported Senokot (Senna) 8.6 Mg Tab 1 Tab PO BID 08/13/17 Reported Colace (Docusate Sodium) 100 Mg Cap 1 Cap PO BID 30 05/24/17 Rx Remeron Soltab (Mirtazapine) 15 Mg Soltab 15 Mg PO HS 05/07/17 Reported Ferrous Sulfate 325 Mg Tab 325 Mg PO BID 05/07/17 Reported Ascorbic Acid 250 Mg Tab 250 Mg PO DAILY 05/07/17 Reported Protonix (Pantoprazole Sodium) 40 Mg Tab 40 Mg PO DAILY 02/19/17 Reported Acetaminophen 325 Mg Tab 650 Mg PO PRN 12/29/16 Reported Oxygen Gas 3 Liters NA UD 12/10/16 Reported 2 liters HS and PRN Percocet 5MG/325MG (Oxycodone/Acetaminophen) Tab 1 Tablet PO Q8H PRN 10/17/16 Reported Zofran (Ondansetron HCl) 4 Mg Tab 4 Mg PO Q6 PRN 10/17/16 Reported Proventil 0.083% 2.5MG/3ML (Albuterol Sulf) 2.5 Mg/3 Ml Nebu 2.5 Mg INH QID PRN 10/17/16 Reported Mag-Ox (Magnesium Oxide) 400 Mg Tab 400 Mg PO DAILY 08/29/16 Reported Potassium Chloride Er (Potassium Chloride) 10 Meq Cap 10 Meq PO BID 90 01/08/16 Reported Advair Diskus 250/50 60 Dose (Fluticasone Prop/Salmeterol) 1 Ea Aerp 1 Puff INH BID 07/31/15 Reported PT ONLY USES NEEDED Paroxetine HCl (Paroxetine) 40 Mg Tab 40 Mg PO DAILY 07/31/15 Reported Metoprolol Succinate ER (Metoprolol Succinate) 25 Mg Tabcr 12.5 Mg PO BID 02/04/15 Reported Lorazepam 0.5 Mg Tab 0.5 Mg PO HS PRN 12/07/12 Reported Multivitamin (Multiple Vitamin) 1 Tab Tab 0.5 Tablet PO DAILY 30 12/07/12 Reported take with supper Vital Signs Weight (Kilograms): 60.200 Height (Feet): 5 Height (Inches): 1.00 Date Time Temp Pulse Resp B/P (MAP) Pulse Ox O2 Delivery O2 Flow Rate FiO2 10/05/17 09:57 37.0 74 16 120/52 (74) 97 Room Air 10/05/17 07:44 37.0 75 20 131/77 (95) 97 Room Air 10/05/17 07:11 80 16 92 Nasal Cannula 3.0 10/05/17 04:27 36.6 68 18 165/83 (110) 99 Nasal Cannula 3.0 10/05/17 04:00 Nasal Cannula 3.0 10/04/17 23:59 Nasal Cannula 3.0 10/04/17 23:35 37.0 83 18 103/61 (75) 97 Nasal Cannula 3.0 10/04/17 20:45 84 117/67 (84) 10/04/17 19:54 76 18 95 Nasal Cannula 3.0 10/04/17 19:45 Room Air 10/04/17 19:41 37.4 84 18 146/77 (100) 94 Room Air 10/04/17 15:45 Room Air 10/04/17 15:43 37.4 83 18 175/78 (110) 98 Room Air 10/04/17 12:01 37.3 78 20 118/68 (85) 96 Room Air 10/04/17 12:00 Room Air Physical Exam General Appearance: no apparent distress Respiratory/Chest: Auscultation: CTA except as noted Assessment and Plan Anemia - EGD
--- NOTE | 2017-10-05 10:56 | Clinical Documentation Query ---
EDA Prasad : CLINICAL DOCUMENTATION QUERY Patient is an 82 year old female admitted for evaluation of SOB and generalized weakness x 1 week. Baseline hemoglobin noted to be ~8-9 g/dl. Presented with an H&H of 7.5 g/dl and 25.1%. Patient is on Coumadin therapy for recurrent PE's. She has been transfused one unit of PRBC's, has been seen in consultation by GI, has been maintained NPO and is to undergo EGD today. She is further being monitored by serial hematology and is being maintained on a PPI infusion. Coumadin is on hold. In your clinical opinion is this patient being managed for: (x ) GI bleeding due to/associated with Coumadin therapy ( ) Not Agree ( ) Other explanation of clinical findings (Please Explain) ( ) Unable to determine (Please Define) ( ) Need to Discuss The medical record reflects the following clinical findings, treatment, and risk factors. Clinical Indicators: As above Treatment:. She has been transfused one unit of PRBC's, has been seen in consultation by GI, has been maintained NPO and is to undergo EGD today. She is further being monitored by serial hematology and is being maintained on a PPI infusion. Coumadin is on hold. Risk Factors: Coumadin use Please clarify and document your clinical opinion in the progress notes and discharge summary. Terms such as "probable", "suspected", "likely", "questionable", "possible", or "still to be ruled out" are acceptable. IF IN AGREEMENT, YOU MUST DOCUMENT ABOVE DIAGNOSTIC STATEMENT IN DAILY PROGRESS NOTES AND DISCHARGE SUMMARY. This document is not part of the patient's record. Thank You, Adam Chow, RN [phone]
--- NOTE | 2017-10-05 11:00 | GI REPORT ---
Procedure Date: 10/05/2017 10:43 AM Procedure: Upper GI endoscopy Indications: Acute post hemorrhagic anemia Medicines: See the Anesthesia note for documentation of the administered medications Complications: No immediate complications. Estimated Blood Loss: Estimated blood loss: none. Procedure: Pre-Anesthesia Assessment: - ASA Grade Assessment: III - A patient with severe systemic disease. After obtaining informed consent, the endoscope was passed under direct vision. Throughout the procedure, the patient's blood pressure, pulse, and oxygen saturations were monitored continuously. The scope was introduced through the mouth, and advanced to the third part of duodenum. The upper GI endoscopy was accomplished without difficulty. The patient tolerated the procedure well. Findings: There was a marked corkscrew appearance to the lower esophagus - this appeared to be a fixed defect, rather than from disordered peristalsis. The GE junction was at 30 cm. There was a mild ring at the GE junction. There was a large hiatal hernia. There was patchy variant mucosa in the cardia; this was biopsied. The mucosa of the stomach and duodenum were otherwise normal Impression: Presbyesophagus. Large hiatal hernia. Variant mucosa in fundus. No source of upper GI bleeding. Recommendation: - Discharge patient to floor. No further w/u for possible GIB. Please follow Hgb while inpt. Please call with questions. Nikia Osman M.D. Nikia Osman MD 10/05/2017 11:00:26 AM This report has been signed electronically. Note Initiated On: 10/05/2017 10:43 AM I attest to the content of the Intraoperative Record and orders documented therein, exceptions below
[2017-10-05] MEDS: LIDODERM (LIDOCAINE) PATCH 5% TD SCH (11:50)
[2017-10-05] MEDS: FENTANYL 25 MCG/HR TDSY TD SCH (11:57)
[2017-10-05] MEDS: ACETAMINOPHEN 325 MG TAB PO PRN ×2 (13:00→21:49)
--- NOTE | 2017-10-05 13:10 | Anesthesiology Progress Note ---
Anesthesia Post Op Note Date & Time Oct 05, 2017 at 13:09 Vital Signs Pain Intensity: 7.0 Vital Signs Past 12 Hours Date Time Temp Pulse Resp B/P (MAP) Pulse Ox O2 Delivery O2 Flow Rate FiO2 10/05/17 11:53 37.3 77 16 107/63 (78) 94 Room Air 10/05/17 11:30 76 16 140/96 (111) 96 Room Air 10/05/17 11:15 74 16 127/73 (91) 96 Room Air 10/05/17 11:00 77 12 117/69 (85) 97 Room Air 10/05/17 09:57 37.0 74 16 120/52 (74) 97 Room Air 10/05/17 07:44 37.0 75 20 131/77 (95) 97 Room Air 10/05/17 07:30 Room Air 10/05/17 07:11 80 16 92 Nasal Cannula 3.0 10/05/17 04:27 36.6 68 18 165/83 (110) 99 Nasal Cannula 3.0 10/05/17 04:00 Nasal Cannula 3.0 Notes Mental Status: alert / awake / arousable, participated in evaluation Pt Amnestic to Procedure: Yes Nausea / Vomiting: adequately controlled Pain: adequately controlled Airway Patency, RR, SpO2: stable & adequate BP & HR: stable & adequate Hydration State: stable & adequate Anesthetic Complications: no major complications apparent
[2017-10-05] MEDS: RANITIDINE HCL 150 MG TAB PO SCH (20:03)
[2017-10-05] MEDS: MIRTAZAPINE SOLTAB 15 MG PO SCH (20:03)
[2017-10-05] MEDS: PANTOprazole SOD 40 MG TAB PO SCH (20:05)
[2017-10-05] MEDS: LORAZEPAM 0.5 MG TAB PO PRN (21:48)
[2017-10-06] VITALS (10 sets, daily range): BP systolic 101–152; BP diastolic 58–78; PULSE 16–88; TEMP 36.5–37.2; O2SAT 90–98
[2017-10-06] MEDS: CHECK FENTANYL PATCH PLACEMENT SCH ×4 (00:19→23:37)
[2017-10-06 06:33] LABS: HEMATOCRIT 31.8 % (37-47); HEMOGLOBIN 10.3 g/dL (12.0-16.0); MEAN CELL VOLUME 92.7 fL (80-100); MEAN CORPUSCULAR HGB CONC 32.4 g/dl (32-36); MEAN PLATELET VOLUME 8.8 fL (7.4-10.4); PLATELET COUNT 238 K/uL (130-400); RED CELL DISTRIBUTION WIDTH CV 18.3 % (11.5-14.5); RED CELL DISTRIBUTION WIDTH SD 62.3 fL (36.4-46.3); WHITE BLOOD COUNT 5.87 K/uL (4.8-10.8)
[2017-10-06 06:41] LABS: INR 1.3 (0.9-1.1)
[2017-10-06 07:00] LABS: CALCIUM 9.5 mg/dl (8.5-10.1); CREATININE 1.59 mg/dl (0.60-1.20); POTASSIUM 3.7 mmol/L (3.5-5.1)
[2017-10-06] MEDS: ALBUTEROL 0.083% NEBU SOLN 3 ML VIAL INH SCH ×2 (07:10→19:06)
[2017-10-06] MEDS: PAROXETINE 20 MG TAB PO SCH (07:45)
[2017-10-06] MEDS: LACTOBACILLUS ACIDOPHILUS (FLORANEX) TAB PO SCH ×3 (07:46→16:52)
[2017-10-06] MEDS: PANTOprazole SOD 40 MG TAB PO SCH ×2 (07:46→20:45)
[2017-10-06] MEDS: POTASSIUM CHLORIDE 10 MEQ TABCR PO SCH ×2 (07:46→20:44)
[2017-10-06] MEDS: FUROSEMIDE 40 MG TAB PO SCH ×2 (07:46→09:00)
[2017-10-06] MEDS: FERROUS SULFATE 325 MG TAB PO SCH ×2 (07:47→20:44)
[2017-10-06] MEDS: MAGNESIUM OXIDE 400 MG TAB PO SCH (07:47)
[2017-10-06] MEDS: GABAPENTIN 100 MG CAP PO SCH (07:47)
[2017-10-06] MEDS: METOPROLOL SUCC 25MG EXT REL TAB PO SCH ×2 (07:47→20:43)
[2017-10-06] MEDS: FLUTICASONE/SALMETEROL 250/50 (ADVAIR) 14 PUFF/1 INHALER INH SCH ×2 (07:49→20:43)
[2017-10-06] MEDS: LIDODERM (LIDOCAINE) PATCH 5% TD SCH (07:49)
[2017-10-06] MEDS: SUCRALFATE 1 GM/10 ML UDC PO SCH ×4 (07:49→20:45)
[2017-10-06] MEDS: OXYCODONE/ACETAMINOPHEN 5-325 TAB PO PRN ×2 (07:52→16:51)
--- NOTE | 2017-10-06 08:23 | Clinical Documentation Query ---
Dr. NOBLE [facility] : CLINICAL DOCUMENTATION QUERY Patient is an 82 year old female admitted for evaluation of SOB and generalized weakness x 1 week. Baseline hemoglobin noted to be ~8-9 g/dl. Presented with an H&H of 7.5 g/dl and 25.1%. Patient is on Coumadin therapy for recurrent PE's. She has been transfused one unit of PRBC's, has been seen in consultation by GI, has been maintained NPO and is to undergo EGD today. She is further being monitored by serial hematology and is being maintained on a PPI infusion. Coumadin is on hold. In your clinical opinion is this patient being managed for: (x ) GI bleeding due to/associated with Coumadin therapy ( ) Not Agree ( ) Other explanation of clinical findings (Please Explain) ( ) Unable to determine (Please Define) ( x ) Need to Discuss Possible GI bleed , due to Coumadin Although recent EGD did not show any active bleeding H&H remains stable post transfusion /after holding Coumadin The medical record reflects the following clinical findings, treatment, and risk factors. Clinical Indicators: As above Treatment:. She has been transfused one unit of PRBC's, has been seen in consultation by GI, has been maintained NPO and is to undergo EGD today. She is further being monitored by serial hematology and is being maintained on a PPI infusion. Coumadin is on hold. Risk Factors: Coumadin use Please clarify and document your clinical opinion in the progress notes and discharge summary. Terms such as "probable", "suspected", "likely", "questionable", "possible", or "still to be ruled out" are acceptable. IF IN AGREEMENT, YOU MUST DOCUMENT ABOVE DIAGNOSTIC STATEMENT IN DAILY PROGRESS NOTES AND DISCHARGE SUMMARY. This document is not part of the patient's record. Thank You, Adam Chow, RN [phone]
--- NOTE | 2017-10-06 11:31 | Progress Note ---
Internal Med Progress Note Date of Service: Oct 06, 2017. Provider Documentation: SUBJECTIVE: Patient seen and examined, as of any discomfort, No complaint of shortness of breath dyspnea on exertion, No dizzy spells or lightheadedness, Tolerating diet okay OBJECTIVE: Vital Signs-as noted below Exam: General-very pleasant no sign of any acute distress. Eyes-sclera nonicteric pupils equal reactive to light extraocular muscles intact. ENT-moist oral mucosa Neck-no JVD, no carotid bruit, no thyromegaly noted Lungs-clear to auscultation no wheezes or rales. Heart-regular S1-S2, no murmur Abdomen-soft nontender no organomegaly, bowel sounds active. Extremities-no rash, no deformity, no lower extremity, no calf tenderness. Neuro-alert and awake oriented 3, no focal neurological deficit noted. Lab data as noted below. ASSESSMENT & PLAN: 1. Symptomatic anemia/secondary to GI bleed: Status post 1 PRBC transfusion (presented with hemoglobin 7.7) post posttransfusion hemoglobin is stable hb 12- 11.4 No active GI bleed noted. Appreciate input from GI team, Underwent EGD yesterday October 05, 2017, by Dr. Osman Shows: There was marked corkscrew appearance to the lower esophagus appeared to be a fixed defect-, rather than disordered peristalsis. The GE junction was at 30 cm. There was a mild ring at the GE junction. There is large hiatal hernia. There was patchy variant because in the cardia colon which was biopsied The mucosa of the stomach were otherwise normal No source of upper GI bleeding noted - Diet advance patient has been tolerating it well. Stable to be transferred to medical floor. 2. Acute kidney injury on CKD stage III: Creatinine elevated from baseline 1.12->1.3 to 1.5 today We will hold Lasix dose today ordered to check BMP in AM No NSAIDs avoid contrast studies when possible. 3. Hx of PE : was on Coumadin had ongoing bleeding episodes requiring hospital admissions, PRBC transfusion recent admission with significant epistaxis Hb has been stable off Coumadin D/w pt -given bleeding risk , poor candidate for anticoagulation Coumadin D/magui, pt is OK not to take Coumadin any more 4. Arthritis of left shoulder and Knee : appreciate input form Ortho cont pain management PT/OT repeat Steroid injection in 3 months DVT PROPHYLAXIS SCD and teds ordered for Sub heparin no evidence of active bleeding noted DISPOSITION PT eval appreciated -recommend rehab will update CM Vital Signs: Date Time Temp Pulse Resp B/P (MAP) Pulse Ox O2 Delivery O2 Flow Rate FiO2 10/06/17 19:06 85 16 93 Room Air 10/06/17 16:03 94 Room Air 3.0 Nasal Cannula 10/06/17 15:49 36.8 88 16 114/67 (83) 94 10/06/17 12:04 36.6 68 18 98 10/06/17 12:00 36.5 87 18 127/58 (81) Room Air 10/06/17 08:00 36.6 68 18 148/68 (94) 98 10/06/17 08:00 Room Air 10/06/17 07:11 78 16 96 Nasal Cannula 3.0 10/06/17 04:00 Nasal Cannula 3.0 10/06/17 03:48 36.8 16 18 152/78 (102) 97 Room Air 3.0 10/06/17 00:31 37.2 74 20 101/59 (73) 93 Nasal Cannula 3.0 10/06/17 00:00 Nasal Cannula 3.0 Lab Results: Results Past 24 Hours Test 10/06/17 06:12 Range/Units White Blood Count 5.87 4.8-10.8 K/uL Red Blood Count 3.43 4.2-5.4 M/uL Hemoglobin 10.3 12.0-16.0 g/dL Hematocrit 31.8 37-47 % Mean Corpuscular Volume 92.7 80-100 fL Mean Corpuscular Hemoglobin 30.0 25-34 pg Mean Corpuscular Hemoglobin Concent 32.4 32-36 g/dl RDW Standard Deviation 62.3 36.4-46.3 fL RDW Coefficient of Variation 18.3 11.5-14.5 % Platelet Count 238 130-400 K/uL Mean Platelet Volume 8.8 7.4-10.4 fL Prothrombin Time 13.2 9.0-12.0 SECONDS Prothromb Time International Ratio 1.3 0.9-1.1 Sodium Level 138 136-145 mmol/L Potassium Level 3.7 3.5-5.1 mmol/L Chloride Level 101 98-107 mmol/L Carbon Dioxide Level 32 21-32 mmol/L Anion Gap 5.0 3-11 mmol/L Blood Urea Nitrogen 20 7-18 mg/dl Creatinine 1.59 0.60-1.20 mg/dl Est Creatinine Clear Calc Drug Dose 22.1 ml/min Estimated GFR () 34.2 Estimated GFR (Non- 29.5 BUN/Creatinine Ratio 12.5 10-20 Random Glucose 102 70-99 mg/dl Calcium Level 9.5 8.5-10.1 mg/dl Magnesium Level 1.8 1.8-2.4 mg/dl
[2017-10-06] MEDS: ACETAMINOPHEN 325 MG TAB PO PRN (14:34)
[2017-10-06] MEDS: MIRTAZAPINE SOLTAB 15 MG PO SCH (20:43)
[2017-10-06] MEDS: RANITIDINE HCL 150 MG TAB PO SCH (20:44)
[2017-10-06] MEDS: LORAZEPAM 0.5 MG TAB PO PRN (20:48)
[2017-10-06] MEDS: HEPARIN SOD 5000 UNIT/0.5 ML CARP SQ SCH (20:59)
[2017-10-07] VITALS (7 sets, daily range): BP systolic 91–148; BP diastolic 45–70; PULSE 70–90; TEMP 36.5–37.2; O2SAT 92–95
[2017-10-07] MEDS: HEPARIN SOD 5000 UNIT/0.5 ML CARP SQ SCH ×3 (05:40→22:29)
[2017-10-07] MEDS: ALBUTEROL 0.083% NEBU SOLN 3 ML VIAL INH SCH ×2 (07:31→19:05)
[2017-10-07 07:49] LABS: HEMATOCRIT 32.5 % (37-47); HEMOGLOBIN 10.3 g/dL (12.0-16.0)
[2017-10-07] MEDS: OXYCODONE/ACETAMINOPHEN 5-325 TAB PO PRN ×2 (08:09→16:39)
[2017-10-07] MEDS: PANTOprazole SOD 40 MG TAB PO SCH ×2 (08:10→20:36)
[2017-10-07] MEDS: METOPROLOL SUCC 25MG EXT REL TAB PO SCH ×2 (08:10→20:36)
[2017-10-07] MEDS: CHECK FENTANYL PATCH PLACEMENT SCH ×2 (08:10→16:05)
[2017-10-07] MEDS: FERROUS SULFATE 325 MG TAB PO SCH ×2 (08:10→20:35)
[2017-10-07] MEDS: FLUTICASONE/SALMETEROL 250/50 (ADVAIR) 14 PUFF/1 INHALER INH SCH ×2 (08:11→20:33)
[2017-10-07] MEDS: MAGNESIUM OXIDE 400 MG TAB PO SCH (08:12)
[2017-10-07] MEDS: GABAPENTIN 100 MG CAP PO SCH (08:12)
[2017-10-07] MEDS: PAROXETINE 20 MG TAB PO SCH (08:12)
[2017-10-07] MEDS: POTASSIUM CHLORIDE 10 MEQ TABCR PO SCH ×2 (08:13→20:35)
[2017-10-07] MEDS: LACTOBACILLUS ACIDOPHILUS (FLORANEX) TAB PO SCH ×3 (08:14→17:58)
[2017-10-07] MEDS: SUCRALFATE 1 GM/10 ML UDC PO SCH ×4 (08:14→20:34)
[2017-10-07] MEDS: LIDODERM (LIDOCAINE) PATCH 5% TD SCH (08:14)
[2017-10-07 08:17] LABS: CREATININE 1.23 mg/dl (0.60-1.20); POTASSIUM 3.7 mmol/L (3.5-5.1)
[2017-10-07] MEDS: ONDANSETRON INJ 2 MG/ML 2 ML VIAL IV PRN (08:36)
[2017-10-07] MEDS: ACETAMINOPHEN 325 MG TAB PO PRN (13:20)
--- NOTE | 2017-10-07 19:17 | Progress Note ---
Internal Med Progress Note Date of Service: Oct 07, 2017. Provider Documentation: SUBJECTIVE: Patient seen sitting on chair, finishing dinner Mentions she feels much better today Denies of any shortness of breath or dyspnea on exertion -In room air -Hb remained stable -Spoke with son Mekhi phone -Plan to discharge home tomorrow, [facility], home physical therapy arranged OBJECTIVE: Vital Signs-as noted below Exam: General-very pleasant no sign of any acute distress. Eyes-sclera nonicteric pupils equal reactive to light extraocular muscles intact. ENT-moist oral mucosa Neck-no JVD, no carotid bruit, no thyromegaly noted Lungs-diminished, no wheeze or rales noted Heart-regular S1-S2, no murmur Abdomen-soft nontender no organomegaly, bowel sounds active. Extremities-no rash, no deformity, no lower extremity, no calf tenderness. Neuro-alert and awake oriented 3, no focal neurological deficit noted. Lab data as noted below. ASSESSMENT & PLAN: 1. Symptomatic anemia/secondary to GI bleed: Status post 1 PRBC transfusion (presented with hemoglobin 7.7) post post transfusion hemoglobin is stable hb 12- 11.4 No active GI bleed noted. Appreciate input from GI team, Underwent EGD October 05, 2017, by Dr. Osman Shows: There was marked corkscrew appearance to the lower esophagus appeared to be a fixed defect-, rather than disordered peristalsis. The GE junction was at 30 cm. There was a mild ring at the GE junction. There is large hiatal hernia. The mucosa of the stomach were otherwise normal No source of upper GI bleeding noted coumadin is kept on hold given multiple admissions with bleeding complication , pt found not to be a candidate for chronic anticoagulation 2. Acute kidney injury on CKD stage III: Creatinine elevated from baseline 1.12->1.3 to 1.5 -> 1.23 Lasix will be resumed on AM No NSAIDs avoid contrast studies when possible. 3. Hx of PE : was on Coumadin had ongoing bleeding episodes requiring hospital admissions, PRBC transfusion recent admission with significant epistaxis Hb has been stable off Coumadin D/w pt -given bleeding risk , poor candidate for anticoagulation Coumadin D/magui, pt is OK not to take Coumadin any more 4. Arthritis of left shoulder and Knee : appreciate input form Ortho cont pain management repeat Steroid injection in 3 months pt is willing for home PT DVT PROPHYLAXIS SCD and teds Sub heparin DISPOSITION D/w Son Mekhi pt does not do well in with in patient rehab her prior stay at [facility] ER actually caused her to decline wants to pt return home tomorrow if possible has round the clock support [facility] visiting nurse [facility] Vital Signs: Date Time Temp Pulse Resp B/P (MAP) Pulse Ox O2 Delivery O2 Flow Rate FiO2 10/08/17 07:19 113 22 76/43 (54) 96 BiPAP 10/08/17 07:05 118 23 100 BiPAP/CPAP 70 10/08/17 06:44 30 10/08/17 06:41 128 96 10/08/17 06:41 126 136/88 (104) 97 BiPAP 10/08/17 06:36 91/48 (62) 10/08/17 05:54 36.9 104 32 181/77 (111) 90 Oxymask 10.0 10/08/17 04:55 97 22 84 Nasal Cannula 4.0 10/08/17 02:30 195/92 (126) 10/08/17 00:00 93 Nasal Cannula 3.0 10/07/17 23:38 36.7 71 18 103/61 (75) 94 Nasal Cannula 2.0 10/07/17 20:30 83 91/45 (60) 10/07/17 19:05 75 16 93 Room Air 10/07/17 15:55 Nasal Cannula 10/07/17 12:48 36.5 Lab Results: Results Past 24 Hours Test 10/08/17 05:49 10/08/17 06:18 10/08/17 06:50 10/08/17 07:22 Range/Units Sodium Level 136 136-145 mmol/L Potassium Level 3.9 3.5-5.1 mmol/L Chloride Level 102 98-107 mmol/L Carbon Dioxide Level 29 21-32 mmol/L Anion Gap 5.0 3-11 mmol/L Blood Urea Nitrogen 22 7-18 mg/dl Creatinine 1.56 0.60-1.20 mg/dl Est Creatinine Clear Calc Drug Dose 22.5 ml/min Estimated GFR () 35.0 Estimated GFR (Non- 30.2 BUN/Creatinine Ratio 14.2 10-20 Random Glucose 92 70-99 mg/dl Calcium Level 10.2 8.5-10.1 mg/dl Blood Gas Sample Site L Radial Bedside Blood Gas pH (LAB) 7.49 7.35-7.45 Bedside Blood Gas pCO2 (LAB) 36 35-46 mmHg Bedside Blood Gas pO2 (LAB) 48 80-95 mmHg Bedside Blood Gas HCO3 (LAB) 27 19-24 meq/L Bedside Blood Gas Total CO2 28 24-31 mEq/l Bedside Blood Gas Base Excess (LAB) 4.0 -9-1.8 meq/L Bedside Blood Gas O2 Saturation 87.0 90-95 % Hayden Test Pass Oxygen Delivery Device Other Bedside FiO2 0 % Hemoglobin 12.2 12.0-16.0 g/dL Hematocrit 38.5 37-47 % Troponin I 0.022 0-0.045 ng/ml Pro-B-Type Natriuretic Peptide 1246 0-1800 pg/ml Test 10/08/17 07:56 Range/Units Arterial Blood pH 7.43 7.35-7.45 Arterial Blood Partial Pressure CO2 42 35-46 mmHg Arterial Blood Partial Pressure O2 81 80-95 mm/Hg Arterial Blood HCO3 27 19-24 mmol/L Arterial Blood Oxygen Saturation 96.0 90-95 % Arterial Blood Base Excess 2.6 -9-1.8 mEq/L Arterial Blood Gas Delivery FIO2 60% Hayden Test POS POS Microbiology Results 10/08/17 Blood Culture, Received Pending 10/08/17 Blood Culture, Received Pending
[2017-10-07] MEDS: MIRTAZAPINE SOLTAB 15 MG PO SCH (20:36)
[2017-10-07] MEDS: RANITIDINE HCL 150 MG TAB PO SCH (20:37)
[2017-10-08] VITALS (19 sets, daily range): BP systolic 76–195; BP diastolic 43–92; PULSE 70–128; TEMP 36.4–37.5; O2SAT 84–100
[2017-10-08] MEDS: LORAZEPAM 0.5 MG TAB PO PRN (00:20)
[2017-10-08] MEDS: OXYCODONE/ACETAMINOPHEN 5-325 TAB PO PRN (00:21)
[2017-10-08] MEDS: ALBUTEROL 0.083% NEBU SOLN 3 ML VIAL INH PRN (04:55)
[2017-10-08] MEDS ORDERED: FUROSEMIDE 40 MG/4 ML VIAL ONE (06:10)
[2017-10-08] MEDS ORDERED: FUROSEMIDE INJ 40 MG in SYRINGE 0 ML IV ONE (06:10)
[2017-10-08] MEDS ORDERED: NITROGLYCERIN 0.4 MG SL PER TAB CHARGE SL ONE (06:30)
[2017-10-08] MEDS: ONDANSETRON INJ 2 MG/ML 2 ML VIAL IV PRN (06:31)
[2017-10-08] MEDS ORDERED: PROMETHAZINE HCL 25 MG SUPP PR STA (06:41)
[2017-10-08] MEDS: ALBUTEROL 0.083% NEBU SOLN 3 ML VIAL INH SCH (07:00)
[2017-10-08 07:01] LABS: HEMATOCRIT 38.5 % (37-47); HEMOGLOBIN 12.2 g/dL (12.0-16.0)
[2017-10-08 07:02] LABS: CALCIUM 10.2 mg/dl (8.5-10.1); CREATININE 1.56 mg/dl (0.60-1.20)
--- NOTE | 2017-10-08 07:07 | Progress Note ---
Progress Note Date of Service Oct 08, 2017. Progress Note 0600: Called by nurse regarding respiratory distress. Nurse reports patient breathing 30 times a minute and oxygenating 88-92% on 10 L oxygen mask with the delivery of 55-85% oxygen. At bedside blood pressures in the 190 systolic patient is clearly in respiratory distress using accessory muscles to breathe, and exhibiting a nonproductive cough frequently as well as whole-body rigors. Heart rate was in the 120s. Heart sounds were difficult to auscultate with the excessive coughing and patient trying to talk during the exam. Lungs were clear to auscultation on the right field posteriorly however crackles heard at the left base. A chest x-ray and ABG were ordered. Chest x-ray revealed acute pulmonary edema on wet read an ABG revealed 7.48/ 36/48 on 10 L oxygen mask. Respiratory rate was 30. Lasix 40 IV was given and she was put on BiPAP at 12/ 5 with 70% oxygen. She was transferred to PCU and blood pressure remained 195/ 95, she was subsequently given 1 dose of nitroglycerin sublingual. Repeat blood pressure was 138 systolic and her respiratory rate improved to the low 20s. Marcelo catheter was placed. Her son Mekhi was notified by telephone of the change in status, and he advised me that she would be okay with short-term intubation if needed. I then verified that with the patient who also agreed to short-term intubation if needed. The ICU attending Dr. Garcia is aware of her status in case of decline. She developed acute nausea without vomiting and was given 1 dose of Zofran IV 4 mg as well as a Phenergan suppository. She was made n.p.o. pending improvement of her respiratory status. Plan for repeat ABG in 2 hours and frequent reassessment of clinical improvement with current interventions. DO Kevan
[2017-10-08] MEDS: HEPARIN SOD 5000 UNIT/0.5 ML CARP SQ SCH (07:30)
--- NOTE | 2017-10-08 07:45 | DIAGNOSTIC IMAGING REPORT ---
CHEST ONE VIEW PORTABLE HISTORY: Worsening short of breath. COMPARISON: Chest 10/02/2017. FINDINGS: No pneumothorax. Old left-sided rib fractures are again noted. Progressive patchy airspace opacities throughout the left lung most pronounced within the left lower lobe. Interstitial thickening and patchy airspace opacities within the right mid to lower lung zone are not significantly changed. The heart remains enlarged. The patient is rotated on this study. Aortic valve prosthesis is noted. IMPRESSION: Progressive airspace opacities throughout the left lung. This likely represents a pneumonia. Electronically signed by: Nirav Varma M.D. 10/08/2017 7:43 AM Dictated Date/Time: 10/08/2017 7:42 AM
[2017-10-08] MEDS: IPRATROPIUM BROMIDE NEB SOLN 0.02% 2.5 ML VIAL INH SCH ×5 (07:58→22:04)
[2017-10-08] MEDS: LEVALBUTEROL 1.25MG/0.5ML NEB INH SCH ×5 (07:59→22:04)
[2017-10-08] MEDS ORDERED: LEVALBUTEROL/IPRATROPIUM NEB INH SCH (08:00)
[2017-10-08] MEDS: SUCRALFATE 1 GM/10 ML UDC PO SCH ×4 (08:24→19:12)
[2017-10-08] MEDS: LACTOBACILLUS ACIDOPHILUS (FLORANEX) TAB PO SCH ×3 (08:24→16:30)
[2017-10-08] MEDS: GABAPENTIN 100 MG CAP PO SCH (08:25)
[2017-10-08] MEDS: PAROXETINE 20 MG TAB PO SCH (08:25)
[2017-10-08] MEDS: MAGNESIUM OXIDE 400 MG TAB PO SCH (08:25)
[2017-10-08] MEDS: FERROUS SULFATE 325 MG TAB PO SCH ×2 (08:25→19:12)
[2017-10-08] MEDS: POTASSIUM CHLORIDE 10 MEQ TABCR PO SCH ×2 (08:25→19:12)
[2017-10-08] MEDS: METOPROLOL SUCC 25MG EXT REL TAB PO SCH ×2 (08:26→19:13)
[2017-10-08] MEDS: FLUTICASONE/SALMETEROL 250/50 (ADVAIR) 14 PUFF/1 INHALER INH SCH ×2 (08:26→20:02)
[2017-10-08] MEDS: PANTOprazole SOD 40 MG TAB PO SCH ×2 (08:26→19:13)
[2017-10-08] MEDS: CHECK FENTANYL PATCH PLACEMENT SCH ×2 (08:38)
[2017-10-08] MEDS: LIDODERM (LIDOCAINE) PATCH 5% TD SCH (08:40)
[2017-10-08] MEDS: FENTANYL PATCH REMOVE & WASTE SCH (08:40)
[2017-10-08] MEDS: FENTANYL 25 MCG/HR TDSY TD SCH (08:40)
[2017-10-08] MEDS ORDERED: FUROSEMIDE INJ 40 MG in SYRINGE 0 ML IV SCH (09:00)
[2017-10-08] MEDS: DOXYCYCLINE IV 100 MG in DEXTROSE 5% 100ML 100 ML IV SCH ×2 (11:29→20:03)
--- NOTE | 2017-10-08 12:13 | Cardiology Consultation ---
Cardiology Consultation Date of Consultation: Oct 08, 2017 Requesting Physician: Dave Attending Benefits Consultant: adriane (Albert Schmidt PA-C) History of Present Illness Ms. Conley is a markedly complex 82-year-old female who is being seen at the request of Dr. Acosta. Reason for consultation is congestive heart failure. The patient was hospitalized at [facility] in August 2017 with a pulmonary embolism. She was readmitted in September secondary to epistaxis, anemia, and a urinary tract infection. She has been admitted again since October 02, 2017 with symptomatic anemia, hemoglobin of 7.5 g/dL. Anticoagulation has been discontinued. She underwent EGD on October 05, 2017 with no source of upper GI bleeding noted. EGD revealed a corkscrew lower esophagus, mild ring at the GE junction, and a large hiatal hernia. She has received 2 units of PRBC's. Earlier this morning the patient was noted to be in acute hypoxic respiratory distress. She was markedly hypertensive and tachycardic (sinus tachycardia) at that time. Chest x-ray showed progressive airspace opacities throughout the left lung likely representing pneumonia. The patient was given 40 mg of IV Lasix and placed on BiPAP at 12/5 with 70% oxygen. She was given 1 sublingual nitroglycerin with significant drop in blood pressure. She was transferred to the PCU. She was ordered for another dose of IV furosemide however this was held secondary to marked hypotension (SBP in the 70's). She has also been ordered IV doxycycline. Echocardiography was last performed on August 23, 2017 (as per Dr. Villar) and demonstrated normal LV chamber size with mild concentric LVH. LV systolic function was described as hyperdynamic, EF >70%. There were no segmental left ventricular wall motion abnormalities noted. Only grade I diastolic dysfunction was observed. The TAVR gradient was normal. There was mild mitral annular calcification and moderate tricuspid regurgitation. (Albert Schmidt PA-C) Past Medical/Surgical History Problem List: Coronary artery disease s/p PCI to the RCA January 2012. Severe aortic valve stenosis. 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 Course complicated by a brief period of complete heart block and hemodynamic instability during the case, successfully resuscitated with brief CPR, transvenous pacing and intensive care measures. Hemoglobin was 5.8 on arrival to the ICU, receiving PRBCs with improvement. CT scan of the chest/abdomen and pelvis negative for bleeding or hematoma. History of recurrent pulmonary emboli Symptomatic anemia, iron deficient and from chronic kidney disease. Stage III CKD, followed by Dr. Mauro. Emphysema Hypertension. Hyperlipidemia. History of uterine carcinoma. Hiatal hernia. Gastroparesis. GERD. Esophageal stricture Recurrent GI bleeding Recurrent urine tract infections requiring multiple IV antibiotics, multi oral AB resistant organism Factor V deficiency Seronegative arthritis Depression Spinal stenosis Tension headaches History of retinal detachment on the right Diverticulosis Total Abdominal Hysterectomy Pneumatic Retinopexy OD Cystoscopy Cataract extraction, right eye Arthroscopic left knee surgery (Albert Schmidt PA-C) Family History Cancer Diabetes mellitus FH: cardiovascular disease MOTHER Gallbladder disease Hypertension Mother and father both at 65. Her mother had rheumatic heart disease, diabetes mellitus, and multiple strokes. Her father with pneumonia. Two older brothers, one with metastatic prostate cancer and the other with CAD. Older sister with Alzheimer's disease. (Albert Schmidt PA-C) Cancer Diabetes mellitus FH: cardiovascular disease MOTHER Gallbladder disease Hypertension (Yariel House DO) Social History Nonsmoker. No significant alcohol. No illegal drug use. 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 Three children. in September 2013. Smoking Status: Never Smoker Drug Use: none Marital Status: Housing Status: lives alone Occupation: retired (Albert Schmidt PA-C) Review Of Systems Complete Review of Systems: The patient is not currently able to provide this information. (Albert Schmidt PA-C) Allergies Coded Allergies: Cefdinir (Verified Allergy, Mild, RASH-HAS HAD ROCEPHIN,CEFEPIME MANY TIMES, 09/21/17) Clonazepam (Verified Allergy, Unknown, ., 09/21/17) Levofloxacin (Verified Allergy, Unknown, unknown, 09/21/17) Sulfasalazine (Verified Allergy, Unknown, ., 09/21/17) Metoclopramide (Verified Adverse Reaction, Intermediate, TREMORS, 09/21/17) Medications Reported Home Medications Medications Dose Route/Sig Max Daily Dose Days Date Category Dose Instructions Lasix (Furosemide) 40 Mg Tab 40 Mg PO DAILY 10/02/17 Reported Take 40mg daily. Take extra 1/2 tab for fluid accumulation or weight gain. Zantac (Ranitidine HCl) 300 Mg Tab 300 Mg PO HS 10/02/17 Reported Prednisone 5 Mg Tab 5 Mg PO DAILY 10/02/17 Reported Coumadin (Warfarin Sodium) 3 Mg Tab 3 Mg PO DAILY 10/02/17 Reported Per coag clinic: 2 mg daily Neurontin (Gabapentin) 100 Mg Cap 100 Mg PO DAILY 09/21/17 Reported Miralax (Polyethylene) 17 Gm Pow 17 Gm PO DAILY PRN 08/31/17 Rx Floranex (Lactobacillus Acidophilus) 1 Tab Tab 1 Tab PO TIDM 08/31/17 Rx Fentanyl 25 Mcg Tdsy 25 Mcg TOP [id number] 08/22/17 Reported Senokot (Senna) 8.6 Mg Tab 1 Tab PO BID 08/13/17 Reported Colace (Docusate Sodium) 100 Mg Cap 1 Cap PO BID 30 05/24/17 Rx Remeron Soltab (Mirtazapine) 15 Mg Soltab 15 Mg PO HS 05/07/17 Reported Ferrous Sulfate 325 Mg Tab 325 Mg PO BID 05/07/17 Reported Ascorbic Acid 250 Mg Tab 250 Mg PO DAILY 05/07/17 Reported Protonix (Pantoprazole Sodium) 40 Mg Tab 40 Mg PO DAILY 02/19/17 Reported Acetaminophen 325 Mg Tab 650 Mg PO PRN 12/29/16 Reported Oxygen Gas 3 Liters NA UD 12/10/16 Reported 2 liters HS and PRN Percocet 5MG/325MG (Oxycodone/Acetaminophen) Tab 1 Tablet PO Q8H PRN 10/17/16 Reported Zofran (Ondansetron HCl) 4 Mg Tab 4 Mg PO Q6 PRN 10/17/16 Reported Proventil 0.083% 2.5MG/3ML (Albuterol Sulf) 2.5 Mg/3 Ml Nebu 2.5 Mg INH QID PRN 10/17/16 Reported Mag-Ox (Magnesium Oxide) 400 Mg Tab 400 Mg PO DAILY 08/29/16 Reported Potassium Chloride Er (Potassium Chloride) 10 Meq Cap 10 Meq PO BID 90 01/08/16 Reported Advair Diskus 250/50 60 Dose (Fluticasone Prop/Salmeterol) 1 Ea Aerp 1 Puff INH BID 07/31/15 Reported PT ONLY USES NEEDED Paroxetine HCl (Paroxetine) 40 Mg Tab 40 Mg PO DAILY 07/31/15 Reported Metoprolol Succinate ER (Metoprolol Succinate) 25 Mg Tabcr 12.5 Mg PO BID 02/04/15 Reported Lorazepam 0.5 Mg Tab 0.5 Mg PO HS PRN 12/07/12 Reported Multivitamin (Multiple Vitamin) 1 Tab Tab 0.5 Tablet PO DAILY 30 12/07/12 Reported take with supper (Albert Schmidt PA-C) Physical Exam Vital Signs (Last 8hrs): Last 8 Hrs Date Time Temp Pulse Resp B/P (MAP) Pulse Ox O2 Delivery O2 Flow Rate FiO2 10/08/17 10:34 36.7 106 20 97/62 (74) 97 Nasal Cannula 4.0 10/08/17 10:32 98 Nasal Cannula 4.0 10/08/17 07:19 113 22 76/43 (54) 96 BiPAP 10/08/17 07:05 118 23 100 BiPAP/CPAP 70 10/08/17 06:44 30 10/08/17 06:41 128 96 10/08/17 06:41 126 136/88 (104) 97 BiPAP 10/08/17 06:36 91/48 (62) 10/08/17 05:54 36.9 104 32 181/77 (111) 90 Oxymask 10.0 10/08/17 04:55 97 22 84 Nasal Cannula 4.0 General Appearance: Alert to person and place but not to time. Moderate distress. Tachypneic. Accessory muscle use. HEENT: Normocephalic Atraumatic. PER, EOMI, conjunctiva and sclera pale. Mucous membranes are very dry. Neck: Difficult to assess in the upright position but not overt JVD. Respiratory: See above. Decreased/diminished breath sounds on the left. Rhonchi on the left. Crackles on the left. No wheeze. Cardiovascular: Regular at 110 bpm. No murmurs. No rubs. PMI not displaced. Abdomen: +BS. Soft. Nontender. Extremities: No edema. No clubbing. no cyanosis. Distal pulses 2/4 bilaterally. Neuro: No focal deficits. (Albert Schmidt PA-C) Data Last 24 Hours Test 10/08/17 05:49 10/08/17 06:18 10/08/17 06:50 10/08/17 07:22 Sodium Level 136 mmol/L Potassium Level mmol/L 3.9 mmol/L Chloride Level 102 mmol/L Carbon Dioxide Level 29 mmol/L Anion Gap 5.0 mmol/L Blood Urea Nitrogen 22 mg/dl Creatinine 1.56 mg/dl Est Creatinine Clear Calc Drug Dose 22.5 ml/min Estimated GFR () 35.0 Estimated GFR (Non- 30.2 BUN/Creatinine Ratio 14.2 Random Glucose 92 mg/dl Calcium Level 10.2 mg/dl Blood Gas Sample Site L Radial Bedside Blood Gas pH (LAB) 7.49 Bedside Blood Gas pCO2 (LAB) 36 mmHg Bedside Blood Gas pO2 (LAB) 48 mmHg Bedside Blood Gas HCO3 (LAB) 27 meq/L Bedside Blood Gas Total CO2 28 mEq/l Bedside Blood Gas Base Excess (LAB) 4.0 meq/L Bedside Blood Gas O2 Saturation 87.0 % Hayden Test Pass Oxygen Delivery Device Other Bedside FiO2 0 % Hemoglobin 12.2 g/dL Hematocrit 38.5 % Troponin I 0.022 ng/ml Pro-B-Type Natriuretic Peptide 1246 pg/ml Test 10/08/17 07:56 Arterial Blood pH 7.43 Arterial Blood Partial Pressure CO2 42 mmHg Arterial Blood Partial Pressure O2 81 mm/Hg Arterial Blood HCO3 27 mmol/L Arterial Blood Oxygen Saturation 96.0 % Arterial Blood Base Excess 2.6 mEq/L Arterial Blood Gas Delivery FIO2 60% Hayden Test POS April 18, 2016 Cardiac Catheterization reveal diffuse moderate irregularities. ~Specific angiography revealed a dominant right coronary artery with mild disease, large caliber LAD with a 50% 6 mm long lesion in the mid LAD that had ESE 3 flow, FFR 0.91, and a non dominant left circumflex with mild disease. Chest x-ray: See above. EKG this morning is poor data quality, revealing sinus tachycardia at 109 bpm. Left axis deviation. Nonspecific T-wave abnormality. Telemetry: Sinus/sinus tachycardia. PVCs in singles, 1 couplet. Two episodes of PAT versus SVT. (Albert Schmidt PA-C) Assessment & Plan Patient is a markedly complex 82-year-old female seen as requested and described above, due to concern for congestive heart failure. Echocardiography approximately two months ago revealed hyperdynamic left ventricular systolic function with only grade 1 diastolic dysfunction and no significant valvular heart disease post TAVR. Physical examination this morning is without overt evidence of acute decompensated systolic or diastolic congestive heart failure. Vuw-J-Xlttkzvbixz peptide is normal at 1246 pg/ml. She remains in acute respiratory distress with noted marked hypotension, tachycardia, hypoxemia. Given her past history as well as current clinical presentation I am concerned regarding recurrent acute pulmonary embolism as well as pneumonia. These concerns were discussed with the patient's hospitalist. Recommend consideration for transfer to the ICU, bilateral venous duplex, CT scan of the chest to assess for new/acute PE despite renal dysfunction. Hold further diuresis. Repeat resting echocardiography requested as well. Further recommendations pending the above, her ongoing hospitalization, and evaluation by Dr. House. (Albert Schmidt PA-C) CARDIOLOGY ATTENDING ADDENDUM: The patient was seen and personally examined. Agree with Albert Schmidt PA-C's findings and plans as documented above. This patient is medically complex. After being placed on BiPAP she appears to be more comfortable. She is going to have a CT of the chest to rule out recurrent pulmonary emboli and then afterwards will be admitted to the ICU. (Yariel House, DO)
[2017-10-08] MEDS ORDERED: OPTIRAY 320 IV PRN (12:15)
--- NOTE | 2017-10-08 12:37 | Progress Note ---
Internal Med Progress Note Date of Service: Oct 08, 2017. Provider Documentation: SUBJECTIVE: Developed acute shortness of breath, hypoxemia/respiratory distress last night chest x-ray showed progression of Effusion/infiltration on bilateral lung bello left worse than the right IV Lasix was ordered Patient placed on BiPAP, transferred to telemetry Seen at bedside, still having significant respiratory distress, increased work of breathing Appreciate evaluation by cardiology Patient will evaluation for other etiologies/pulmonary process causing acute respiratory failure CT chest with contrast ordered to assess for PE Patient is a full code prior on-call physician's discussion with the son OBJECTIVE: Vital Signs-as noted below Exam: General-in respiratory distress on BiPAP ENT-dry oral mucous/BiPAP mask present Neck-no JVD, no carotid bruit, no thyromegaly noted Lungs-bibasilar rales noted Heart-tachycardic Abdomen-soft nontender no organomegaly, Extremities-no rash, no deformity, no lower extremity, no calf tenderness. Neuro-very anxious , generalized weakness, no focal neurological deficit noted. Lab data as noted below. ASSESSMENT & PLAN: ACUTE HYPOXEMIC RESPIRATORY FAILURE : Became severely hypoxic with increased work of breathing last night stat portable chest x-ray showed progressive patchy air space opacity throughout the lungs more pronounced on the left side concern from pulmonary edema versus pneumonia Patient was given IV Lasix Placed on BiPAP ABG shows pH of 7.49 CO2 36//PO2 48/bicarb 27/SPO2 87% Repeat ABG after 1 hour of BiPAP treatment PH 7.43 PCO2 42/PO2 81/SPO2 96% on FiO2 of 60% Cardiology consult requested Recent echo on 08/27/2017 showed EF more than 70%, with grade 1 diastolic dysfunction Repeat echo ordered Concerned for possible pulmonary embolism as patient has been off Coumadin since for anemia/GI bleed -CT chest with contrast PE study ordered bilateral lower extremity Doppler to assess for DVT Patient continues to have respiratory distress increased work of breathing while on BiPAP Transfer to ICU for further care/respiratory support Discussed with ICU team ANEMIA /CONCERN FOR GI BLEED : Symptomatic anemia/secondary to GI bleed: Status post 1 PRBC transfusion (presented with hemoglobin 7.7) post post transfusion hemoglobin is stable hb 12- 11.4 No active GI bleed noted. Appreciate input from GI team, Underwent EGD October 05, 2017, by Dr. Osman Shows: There was marked corkscrew appearance to the lower esophagus appeared to be a fixed defect-, rather than disordered peristalsis. The GE junction was at 30 cm. There was a mild ring at the GE junction. There is large hiatal hernia. The mucosa of the stomach were otherwise normal No source of upper GI bleeding noted Coumadin was kept on hold Ordered for IV heparin with weight-based protocol for possible PE causing hypoxemic respiratory failure ACUTE KIDNEY INJURY /CKD STAGE 3: -Monitor kidney function as given CT chest contrast study for PE evaluation HX OF PE : was on Coumadin Has been on hold for anemia and GI bleed Order for IV heparin weight-based protocol, for probable PE DVT PROPHYLAXIS IV heparin weight-based protocol CODE STATUS: Full code DISPOSITION Transfer patient to ICU for further care Vital Signs: Date Time Temp Pulse Resp B/P (MAP) Pulse Ox O2 Delivery O2 Flow Rate FiO2 10/08/17 22:14 37.4 10/08/17 22:04 93 20 95 Mask 6.0 10/08/17 20:00 Oxymask 6.0 10/08/17 20:00 37.5 10/08/17 19:29 105 20 99 Mask 6.0 10/08/17 18:00 37.5 10/08/17 16:00 Oxymask 8.0 10/08/17 16:00 37.4 10/08/17 15:41 70 99 10/08/17 15:41 70 23 99 BiPAP/CPAP 60 10/08/17 14:00 36.4 97 23 89/46 (60) 96 10/08/17 13:21 36.7 106 20 97 4.0 10/08/17 12:30 BiPAP 10/08/17 10:34 36.7 106 20 97/62 (74) 97 Nasal Cannula 4.0 10/08/17 10:32 98 Nasal Cannula 4.0 10/08/17 08:30 BiPAP 10/08/17 07:19 113 22 76/43 (54) 96 BiPAP 10/08/17 07:05 118 23 100 BiPAP/CPAP 70 10/08/17 06:44 30 10/08/17 06:41 128 96 10/08/17 06:41 126 136/88 (104) 97 BiPAP 10/08/17 06:36 91/48 (62) 10/08/17 05:54 36.9 104 32 181/77 (111) 90 Oxymask 10.0 10/08/17 04:55 97 22 84 Nasal Cannula 4.0 10/08/17 02:30 195/92 (126) 10/08/17 00:00 93 Nasal Cannula 3.0 10/07/17 23:38 36.7 71 18 103/61 (75) 94 Nasal Cannula 2.0 Lab Results: Results Past 24 Hours Test 10/08/17 05:49 10/08/17 06:18 10/08/17 06:50 10/08/17 07:22 Range/Units Sodium Level 136 136-145 mmol/L Potassium Level 3.9 3.5-5.1 mmol/L Chloride Level 102 98-107 mmol/L Carbon Dioxide Level 29 21-32 mmol/L Anion Gap 5.0 3-11 mmol/L Blood Urea Nitrogen 22 7-18 mg/dl Creatinine 1.56 0.60-1.20 mg/dl Est Creatinine Clear Calc Drug Dose 22.5 ml/min Estimated GFR () 35.0 Estimated GFR (Non- 30.2 BUN/Creatinine Ratio 14.2 10-20 Random Glucose 92 70-99 mg/dl Calcium Level 10.2 8.5-10.1 mg/dl Blood Gas Sample Site L Radial Bedside Blood Gas pH (LAB) 7.49 7.35-7.45 Bedside Blood Gas pCO2 (LAB) 36 35-46 mmHg Bedside Blood Gas pO2 (LAB) 48 80-95 mmHg Bedside Blood Gas HCO3 (LAB) 27 19-24 meq/L Bedside Blood Gas Total CO2 28 24-31 mEq/l Bedside Blood Gas Base Excess (LAB) 4.0 -9-1.8 meq/L Bedside Blood Gas O2 Saturation 87.0 90-95 % Hayden Test Pass Oxygen Delivery Device Other Bedside FiO2 0 % Hemoglobin 12.2 12.0-16.0 g/dL Hematocrit 38.5 37-47 % Troponin I 0.022 0-0.045 ng/ml Pro-B-Type Natriuretic Peptide 1246 0-1800 pg/ml Test 10/08/17 07:56 10/08/17 12:30 10/08/17 13:46 10/08/17 14:31 Range/Units Arterial Blood pH 7.43 7.35-7.45 Arterial Blood Partial Pressure CO2 42 35-46 mmHg Arterial Blood Partial Pressure O2 81 80-95 mm/Hg Arterial Blood HCO3 27 19-24 mmol/L Arterial Blood Oxygen Saturation 96.0 90-95 % Arterial Blood Base Excess 2.6 -9-1.8 mEq/L Arterial Blood Gas Delivery FIO2 60% Hayden Test POS POS White Blood Count 14.68 4.8-10.8 K/uL Red Blood Count 4.01 4.2-5.4 M/uL Hemoglobin 11.8 12.0-16.0 g/dL Hematocrit 37.9 37-47 % Mean Corpuscular Volume 94.5 80-100 fL Mean Corpuscular Hemoglobin 29.4 25-34 pg Mean Corpuscular Hemoglobin Concent 31.1 32-36 g/dl Platelet Count 237 130-400 K/uL Mean Platelet Volume 9.3 7.4-10.4 fL Neutrophils (%) (Auto) 88.2 % Lymphocytes (%) (Auto) 5.4 % Monocytes (%) (Auto) 5.7 % Eosinophils (%) (Auto) 0.3 % Basophils (%) (Auto) 0.1 % Neutrophils # (Auto) 12.94 1.4-6.5 K/uL Lymphocytes # (Auto) 0.80 1.2-3.4 K/uL Monocytes # (Auto) 0.83 0.11-0.59 K/uL Eosinophils # (Auto) 0.05 0-0.5 K/uL Basophils # (Auto) 0.02 0-0.2 K/uL RDW Standard Deviation 60.2 36.4-46.3 fL RDW Coefficient of Variation 17.2 11.5-14.5 % Immature Granulocyte % (Auto) 0.3 % Immature Granulocyte # (Auto) 0.04 0.00-0.02 K/uL Prothrombin Time 12.0 9.0-12.0 SECONDS Prothromb Time International Ratio 1.1 0.9-1.1 Activated Partial Thromboplast Time 29.2 21.0-31.0 SECONDS Partial Thromboplastin Ratio 1.1 Bedside Glucose 87 70-90 mg/dl Lactic Acid Level 3.0 0.4-2.0 mmol/L Procalcitonin 37.60 0-0.5 ng/ml Test 10/08/17 18:32 10/08/17 19:03 10/08/17 20:31 10/08/17 21:46 Range/Units Lactic Acid Level 3.5 3.2 0.4-2.0 mmol/L Bedside Glucose 91 70-90 mg/dl Activated Partial Thromboplast Time 145.2 133.3 21.0-31.0 SECONDS Partial Thromboplastin Ratio 5.6 5.1 Test 10/08/17 22:30 Range/Units Microbiology Results 10/08/17 Blood Culture, Received Pending 10/08/17 Blood Culture, Received Pending 10/08/17 Blood Culture, Received Pending 10/08/17 Blood Culture, Received Pending 10/08/17 MRSA DNA Surveillance Screen - Final, Complete Specimen Positive for MRSA by DNA Probe
[2017-10-08 12:51] LABS: BASO % 0.1 %; BASO ABS # 0.02 K/uL (0-0.2); EOS % 0.3 %; EOS ABS # 0.05 K/uL (0-0.5); HEMATOCRIT 37.9 % (37-47); HEMOGLOBIN 11.8 g/dL (12.0-16.0); IG# 0.04 K/uL (0.00-0.02); LYMPH % 5.4 %; MEAN CELL VOLUME 94.5 fL (80-100); MEAN CORPUSCULAR HEMOGLOBIN 29.4 pg (25-34); MEAN PLATELET VOLUME 9.3 fL (7.4-10.4); MONO % 5.7 %; MONO ABS # 0.83 K/uL (0.11-0.59); NEUT % 88.2 %; NEUT ABS # 12.94 K/uL (1.4-6.5); PLATELET COUNT 237 K/uL (130-400); RED CELL DISTRIBUTION WIDTH CV 17.2 % (11.5-14.5); RED CELL DISTRIBUTION WIDTH SD 60.2 fL (36.4-46.3); WHITE BLOOD COUNT 14.68 K/uL (4.8-10.8)
[2017-10-08 12:53] LABS: MEAN CORPUSCULAR HGB CONC 31.1 g/dl (32-36)
[2017-10-08] MEDS ORDERED: HEPARIN IV BOLUS 4,000 UNIT in SYRINGE 0 ML IV ONE (13:00)
[2017-10-08 13:05] LABS: INR 1.1 (0.9-1.1); PTT PATIENT 29.2 SECONDS (21.0-31.0)
[2017-10-08] MEDS: HEPARIN 25,000 UNIT/500ML D5W 500 ML IV PRN ×2 (13:29→20:30)
--- NOTE | 2017-10-08 13:30 | DIAGNOSTIC IMAGING REPORT ---
CT ANGIOGRAM OF THE CHEST CLINICAL HISTORY: Shortness of breath. Possible pulmonary embolism. COMPARISON STUDY: August 22, 2017 TECHNIQUE: Following the IV administration of 93 mL of [id number]-320, CT angiogram of the thorax was performed from the thoracic inlet to the lung bases utilizing the pulmonary embolus protocol. Images are reviewed in the axial, sagittal, and coronal planes. IV contrast was administered without complication. MIP imaging was performed. A dose lowering technique was utilized adhering to the principles of ALARA. CT DOSE: 402.81 mGy.cm FINDINGS: No pathologically enlarged axillary mediastinal or hilar lymph nodes were visualized. Postsurgical changes involve the aortic valve and proximal ascending thoracic aorta. There is no evidence of thoracic aortic aneurysm There are very small filling defects within a right upper lobe pulmonary artery branch and right lower lobe pulmonary artery branch. No pleural effusions are visualized. There is a large hiatal hernia. There is left lung volume loss. There is dense consolidation left lower lobe with air bronchograms. There are multifocal airspace opacities within the left upper lobe. The findings are consistent with extensive pneumonia. Dependent airspace opacities on the right are felt to be atelectatic. There are multiple vertebral body compression deformities. IMPRESSION: 1. Very small right lung pulmonary emboli 2. Extensive airspace consolidation within the left upper lobe and lower lobe consistent with a pneumonia 3. No evidence of pathologic adenopathy Electronically signed by: Austin Harman M.D. 10/08/2017 1:29 PM Dictated Date/Time: 10/08/2017 1:20 PM
[2017-10-08] MEDS ORDERED: VANCOMYCIN CONSULT ACTIVE PRN (14:00)
[2017-10-08] MEDS ORDERED: PIPERACILL/TAZOBAC CONSULT ACTIVE PRN (14:00)
[2017-10-08] MEDS ORDERED: VANCOMYCIN IV 1,250 MG in SODIUM CHLORIDE 0.9% 250ML 250 ML IV ONE (14:30)
[2017-10-08] MEDS ORDERED: PIPERACILL/TAZOBAC IV 3.375 GM in DEXTROSE 5% 100ML IV ONE (14:30)
--- NOTE | 2017-10-08 14:55 | Pharmacy Progress Note ---
Pharmacy Abx Initial Consult Date of Service Oct 08, 2017. Pharmacy Dosing Scope Date of Consult: 10/08/17 Consultation requested by: Dr. Hogue Pharmacy is consulted to initiate IV VANCOMYCIN and ZOSYN therapy, order appropriate labs and adjust drug dose/frequency. Subjective The patient is a 82 year old female admitted on Oct 02, 2017 at 19:19. Patient was transferred to ICU today secondary to more labored breathing, extensive airspace consolidation consistent with ASHLEY and LLL pneumonia on CT scan. Objective Height (Feet): 5 Height (Inches): 1.00 Weight (Kilograms): 61.100 Vital Signs (Past 12Hrs) Vital Signs Past 12 Hours Date Time Temp Pulse Resp B/P (MAP) Pulse Ox O2 Delivery O2 Flow Rate FiO2 10/08/17 14:00 36.4 97 23 89/46 (60) 96 10/08/17 13:21 36.7 106 20 97 4.0 10/08/17 12:30 BiPAP 10/08/17 10:34 36.7 106 20 97/62 (74) 97 Nasal Cannula 4.0 10/08/17 10:32 98 Nasal Cannula 4.0 10/08/17 08:30 BiPAP 10/08/17 07:19 113 22 76/43 (54) 96 BiPAP 10/08/17 07:05 118 23 100 BiPAP/CPAP 70 10/08/17 06:44 30 10/08/17 06:41 128 96 10/08/17 06:41 126 136/88 (104) 97 BiPAP 10/08/17 06:36 91/48 (62) 10/08/17 05:54 36.9 104 32 181/77 (111) 90 Oxymask 10.0 10/08/17 04:55 97 22 84 Nasal Cannula 4.0 Lab Results (24Hrs) Laboratory Tests (24 Hours) Test 10/08/17 12:30 10/08/17 14:31 White Blood Count 14.68 K/uL (4.8-10.8) H Red Blood Count 4.01 M/uL (4.2-5.4) L Hemoglobin 11.8 g/dL (12.0-16.0) L Hematocrit 37.9 % (37-47) Mean Corpuscular Volume 94.5 fL (80-100) Mean Corpuscular Hemoglobin 29.4 pg (25-34) Mean Corpuscular Hemoglobin Concent 31.1 g/dl (32-36) L Platelet Count 237 K/uL (130-400) Mean Platelet Volume 9.3 fL (7.4-10.4) Neutrophils (%) (Auto) 88.2 % Lymphocytes (%) (Auto) 5.4 % Monocytes (%) (Auto) 5.7 % Eosinophils (%) (Auto) 0.3 % Basophils (%) (Auto) 0.1 % Neutrophils # (Auto) 12.94 K/uL (1.4-6.5) H Lymphocytes # (Auto) 0.80 K/uL (1.2-3.4) L Monocytes # (Auto) 0.83 K/uL (0.11-0.59) H Eosinophils # (Auto) 0.05 K/uL (0-0.5) Basophils # (Auto) 0.02 K/uL (0-0.2) Micro Results Date/Time Source Procedure Growth Status 10/08/17 14:31 Blood Blood Culture Pending Received 10/08/17 14:30 Blood Blood Culture Pending Received 10/08/17 06:50 Blood Blood Culture Pending Received 10/08/17 06:38 Blood Blood Culture Pending Received 10/02/17 20:30 Stool C.difficile Toxin B Gene (PCR) - Final No C. difficile toxin B gene detected Complete 10/04/17 00:00 Urine , Clean Catch Urine Culture - Final THREE TYPES OF ORGANISMS PRESENT, ALL... Complete Risk Factors for Resistance * Hospitalization for 48 hours or more within the past 90 days * Current hospitalization > 5 days * History of infection with a multidrug-resistant organism: MRSA in urine cx in the past * Antimicrobial use within the last 90 days (08/2017: ampicillin, vancomycin, and cefepime) Assessment & Plan Assessment * 82 year old female admitted for symptomatic anemia for GIB * Transferred to ICU today due to respiratory distress and CT findings of pneumonia * Pharmacy has dosed vancomycin for this patient in the recent past * MRSA nasal swab pending, procalcitonin pending, lactate pending, blood cx's pending * Acute leukocytosis noted on this AM's labs * Renal fxn declining, SCr increased to 1.56 today (baseline ~1.1); patient is somewhat hypotensive at this time. Plan Vancomycin IV * Loading dose: 1250 mg (20.5 mg/kg) x 1 * Maintenance dose: will defer from ordering a maintenance dose at this time as estimated half-life > 24 hours. Dosing will be guided by random levels * Goal trough level for pulm infxn : 15 to 20 mcg/mL * Random level ordered w/ AM labs tomorrow (~14 hours after load given) * P'kinetic estimates: Vd 0.7L/kg; half-life ~30 hours Piperacillin/tazobactam * 3.375 g bolus administered over 30 minutes, then 3.375 g IV extended infusion every 8 hours for CrCl greater than 20 mL/min Pharmacy will continue to follow and will adjust dose/frequency as necessary. Thank you.
--- NOTE | 2017-10-08 17:56 | DIAGNOSTIC IMAGING REPORT ---
ULTRASOUND BILATERAL LOWER EXTREMITY VENOUS CLINICAL HISTORY: Lower extremity edema. COMPARISON STUDY: Bilateral lower extremity venous ultrasound dated 08/22/2017. TECHNIQUE: Real-time, grayscale, and color Doppler sonography of the deep veins of the right and left lower extremity was performed from the inguinal crease to the calf. Compression and augmentation were utilized. FINDINGS: There is no sonographic evidence of deep venous thrombosis identified in the right or left lower extremity. The common femoral, superficial femoral, and popliteal veins are patent and normally compressible bilaterally. The greater saphenous vein and the profunda femoris vein at the junction with the common femoral vein are clear in both legs. The visualized calf veins are patent bilaterally. IMPRESSION: There is no sonographic evidence of deep venous thrombosis identified in the right or left lower extremity. Electronically signed by: Williams Irizarry M.D. 10/08/2017 5:55 PM Dictated Date/Time: 10/08/2017 5:55 PM
--- NOTE | 2017-10-08 18:17 | Critical Care Consultation ---
Critical Care Consultation Date of Consultation: Oct 08, 2017. Attending Physician: Jannet Acosta M.D. Reason for Consultation: Respiratory failure History of Present Illness This is a 82 year old female with h/o pulmonary embolism, aortic valve repair ( TAVR), diastolic HF, on home O2, admitted on 10/02/17 for shortness of breath, weakness. Found to be anemic, with intermittent melena. Was transfused initially , underwent EGD on 10/05, found large hiatal hernia, presbyesophagus, no source of bleeding. She was being prepared for discharge, but overnight she became quite short of breath, more hypoxic. Placed on BIPAP, initially treated for fluid overload given elevated BP and the fact that she was off diuretics. Initially she was DNI but the advanced directives changed to full code. CT scan revealed a large left lung pneumonia. The patient is fairly lethargic, does not help much with history. I discussed with her son Mekhi Past Medical/Surgical History Pulmonary embolism Diastolic HF Aortic stenosis, s/p TAVR COPD Temporal arteritis Anemia H/o GI bleeding H/o epistaxis CKD GERD HTN Factor V deficiency Family History Cancer Diabetes mellitus FH: cardiovascular disease MOTHER Gallbladder disease Hypertension Social History Smoking Status: Never Smoker Drug Use: none Marital Status: Housing Status: lives alone Occupation Status: retired Allergies Coded Allergies: Cefdinir (Verified Allergy, Mild, RASH-HAS HAD ROCEPHIN,CEFEPIME MANY TIMES, 09/21/17) Clonazepam (Verified Allergy, Unknown, ., 09/21/17) Levofloxacin (Verified Allergy, Unknown, unknown, 09/21/17) Sulfasalazine (Verified Allergy, Unknown, ., 09/21/17) Metoclopramide (Verified Adverse Reaction, Intermediate, TREMORS, 09/21/17) Home Medications Scheduled Ascorbic Acid (Ascorbic Acid), 250 MG PO DAILY Docusate Sodium (Colace), 1 CAP PO BID Fentanyl (Fentanyl), 25 MCG TOP [id number] Ferrous Sulfate (Ferrous Sulfate), 325 MG PO BID Fluticasone Prop/Salmeterol (Advair Diskus 250/50 60 Dose), 1 PUFF INH BID Furosemide (Lasix), 40 MG PO DAILY Gabapentin (Neurontin), 100 MG PO DAILY Home O2 Therapy (Oxygen), 3 LITERS NA UD Lactobacillus Acidophilus (Floranex), 1 TAB PO TIDM Magnesium Oxide (Mag-Ox), 400 MG PO DAILY Metoprolol Succinate (Metoprolol Succinate ER), 12.5 MG PO BID Mirtazapine Soltab (Remeron Soltab), 15 MG PO HS Multiple Vitamin (Multivitamin), 0.5 TABLET PO DAILY Pantoprazole (Protonix), 40 MG PO DAILY Paroxetine (Paroxetine HCl), 40 MG PO DAILY Potassium Chloride (Potassium Chloride Er), 10 MEQ PO BID Prednisone (Prednisone), 5 MG PO DAILY Ranitidine (Zantac), 300 MG PO HS Senna (Senokot), 1 TAB PO BID Warfarin Sodium (Coumadin), 3 MG PO DAILY Scheduled PRN Acetaminophen (Acetaminophen), 650 MG PO for Pain Albuterol Sulf (Proventil 0.083% 2.5MG/3ML), 2.5 MG INH QID PRN for SOB/Wheezing Lorazepam (Lorazepam), 0.5 MG PO HS PRN for Insomnia Ondansetron Hcl (Zofran), 4 MG PO Q6 PRN for Nausea Oxycodone/Acetaminophen 5MG/325MG (Percocet 5MG/325MG), 1 TABLET PO Q8H PRN for Pain Polyethylene (Miralax), 17 GM PO DAILY PRN for Constipation Current Inpatient Medications Current Inpatient Medications Medications (Trade) Dose Ordered Sig/Rosi Route Start Time Stop Time Status Last Admin Dose Admin Acetaminophen (Tylenol Tab) 650 mg Q4H PRN PO 10/02/17 21:00 11/01/17 20:59 10/07/17 13:20 650 MG Al Hydrox/Mg Hydrox/Simethicone (Maalox Max Susp) 15 ml Q4H PRN PO 10/02/17 21:00 11/01/17 20:59 Magnesium Hydroxide (Milk Of Magnesia Susp) 30 ml Q12H PRN PO 10/02/17 21:00 11/01/17 20:59 Ondansetron HCl (Zofran Inj) 4 mg Q6H PRN IV 10/02/17 21:00 11/01/17 20:59 10/08/17 06:31 4 MG Nitroglycerin (Nitrostat Tab) 0.4 mg UD PRN SL 10/02/17 21:00 11/01/17 20:59 Polyethylene (Miralax Powder Packet) 17 gm DAILY PRN PO 10/02/17 21:00 11/01/17 20:59 Ferrous Sulfate (Feosol Tab) 325 mg BID PO 10/03/17 09:00 11/02/17 08:59 10/07/17 20:35 325 MG Salmeterol Xinafoate/ Fluticasone (Advair Diskus 250/50 Inh) 1 puff BID INH 10/03/17 09:00 11/02/17 08:59 10/07/17 20:33 1 PUFF Gabapentin (Neurontin Cap) 100 mg DAILY PO 10/03/17 09:00 11/02/17 08:59 10/07/17 08:12 100 MG Lactobacillus Acidophilus (Floranex Tab) 1 tab TIDM PO 10/03/17 07:30 11/02/17 07:29 10/07/17 17:58 1 TAB Lorazepam (Ativan Tab) 0.5 mg HS PRN PO 10/02/17 21:15 11/01/17 21:14 10/08/17 00:20 0.5 MG Magnesium Oxide (Mag-Ox Tab) 400 mg DAILY PO 10/03/17 09:00 11/02/17 08:59 10/07/17 08:12 400 MG Metoprolol Succinate (Toprol Xl Tab) 12.5 mg BID PO 10/03/17 09:00 11/02/17 08:59 10/07/17 08:10 12.5 MG Mirtazapine (Remeron Solutab) 15 mg HS PO 10/03/17 21:00 11/02/17 20:59 10/07/17 20:36 15 MG Oxycodone/ Acetaminophen (Percocet 5-325mg Tab) 1 tab Q8H PRN PO 10/02/17 21:15 10/16/17 21:14 10/08/17 00:21 1 TAB Paroxetine HCl (pAXil TAB) 40 mg DAILY PO 10/03/17 09:00 11/02/17 08:59 10/07/17 08:12 40 MG Potassium Chloride (Klor-Con M10) 10 meq BID PO 10/03/17 09:00 11/02/17 08:59 10/07/17 20:35 10 MEQ Ranitidine HCl (zANTac TAB) 300 mg HS PO 10/03/17 21:00 11/02/17 20:59 10/07/17 20:37 300 MG Sucralfate (Carafate Susp) 1 gm QID PO 10/03/17 17:00 11/02/17 16:59 10/07/17 20:34 1 GM Lidocaine (Lidoderm Patch 5%) 1 patch QAM TD 10/05/17 09:00 11/04/17 08:59 10/08/17 08:40 1 PATCH Miscellaneous (Remove Lidoderm Patch) 1 ea DAILY@21 N/A 10/04/17 21:00 11/03/17 20:59 10/07/17 20:34 1 EA Pantoprazole Sodium (Protonix Tab) 40 mg BID PO 10/05/17 21:00 11/04/17 20:59 10/07/17 20:36 40 MG Prednisone (PredniSONE TAB) 5 mg DAILY PO 10/07/17 09:00 11/06/17 08:59 10/07/17 08:11 5 MG Senna (Senokot Tab) 8.6 mg Q24H PRN PO 10/07/17 22:30 11/06/17 22:29 Furosemide 40 mg/ Syringe 4 ml @ 4 mls/min Q12 IV 10/08/17 09:00 11/07/17 08:59 Future Hold Ipratropium Glover (Atrovent 0.02% 0.5MG/2.5ML Neb) 0.5 mg Q2R PRN INH 10/08/17 08:00 11/07/17 07:59 Levalbuterol (Xopenex 1.25MG/ 0.5ML Neb) 1.25 mg Q2R PRN INH 10/08/17 08:00 11/07/17 07:59 Doxycycline Hyclate 100 mg/ Dextrose 110 ml @ 50 mls/hr Q12 IV 10/08/17 11:00 10/15/17 10:59 10/08/17 11:29 50 MLS/HR Ioversol (Optiray 320) 125 ml UD PRN IV 10/08/17 12:15 10/12/17 12:14 Heparin Sodium/ Dextrose 500 ml @ 19 mls/hr Q24H PRN IV 10/08/17 12:45 11/07/17 12:44 10/08/17 13:29 19 MLS/HR Miscellaneous Information (Consult) 1 ea UD PRN N/A 10/08/17 14:00 11/07/17 13:59 Miscellaneous Information (Consult) 1 ea UD PRN N/A 10/08/17 14:00 11/07/17 13:59 Piperacillin Sod/ Tazobactam Sod 3.375 gm/Dextrose 115 ml @ 28.75 mls/ hr Q8H IV 10/08/17 22:00 10/15/17 21:59 Ipratropium Glover (Atrovent 0.02% 0.5MG/2.5ML Neb) 0.5 mg Q4R INH 10/08/17 20:00 11/07/17 19:59 Levalbuterol (Xopenex 1.25MG/ 0.5ML Neb) 1.25 mg Q4R INH 10/08/17 20:00 11/07/17 19:59 Acetylcysteine (Mucomyst 20% Inh Soln) 3 ml Q8R INH 10/08/17 18:00 11/07/17 17:59 Review of Systems Unable to obtain from the patient secondary to lethargy Physical Exam Date Time Temp Pulse Resp B/P (MAP) Pulse Ox O2 Delivery O2 Flow Rate FiO2 10/08/17 16:00 Oxymask 8.0 10/08/17 16:00 37.4 10/08/17 15:41 70 99 10/08/17 15:41 70 23 99 BiPAP/CPAP 60 10/08/17 14:00 36.4 97 23 89/46 (60) 96 10/08/17 13:21 36.7 106 20 97 4.0 10/08/17 12:30 BiPAP 10/08/17 10:34 36.7 106 20 97/62 (74) 97 Nasal Cannula 4.0 10/08/17 10:32 98 Nasal Cannula 4.0 10/08/17 08:30 BiPAP 10/08/17 07:19 113 22 76/43 (54) 96 BiPAP 10/08/17 07:05 118 23 100 BiPAP/CPAP 70 10/08/17 06:44 30 10/08/17 06:41 128 96 10/08/17 06:41 126 136/88 (104) 97 BiPAP 10/08/17 06:36 91/48 (62) 10/08/17 05:54 36.9 104 32 181/77 (111) 90 Oxymask 10.0 10/08/17 04:55 97 22 84 Nasal Cannula 4.0 10/08/17 02:30 195/92 (126) 10/08/17 00:00 93 Nasal Cannula 3.0 10/07/17 23:38 36.7 71 18 103/61 (75) 94 Nasal Cannula 2.0 10/07/17 20:30 83 91/45 (60) 10/07/17 19:05 75 16 93 Room Air General: Elderly female, lethargic Heent: NC/AT Lungs: Left>right coarse breath sounds, some rhonchi, no wheezing CVS:S1S2 regular Abdomen: Soft Ext: B/L LE edema BUSINESS ANALYST CONSULTANT: Lethargic, does follow commands though Laboratory Results Last 24 Hours Test 10/08/17 05:49 10/08/17 06:18 10/08/17 06:50 10/08/17 07:22 Sodium Level 136 mmol/L Potassium Level mmol/L 3.9 mmol/L Chloride Level 102 mmol/L Carbon Dioxide Level 29 mmol/L Anion Gap 5.0 mmol/L Blood Urea Nitrogen 22 mg/dl Creatinine 1.56 mg/dl Est Creatinine Clear Calc Drug Dose 22.5 ml/min Estimated GFR () 35.0 Estimated GFR (Non- 30.2 BUN/Creatinine Ratio 14.2 Random Glucose 92 mg/dl Calcium Level 10.2 mg/dl Blood Gas Sample Site L Radial Bedside Blood Gas pH (LAB) 7.49 Bedside Blood Gas pCO2 (LAB) 36 mmHg Bedside Blood Gas pO2 (LAB) 48 mmHg Bedside Blood Gas HCO3 (LAB) 27 meq/L Bedside Blood Gas Total CO2 28 mEq/l Bedside Blood Gas Base Excess (LAB) 4.0 meq/L Bedside Blood Gas O2 Saturation 87.0 % Hayden Test Pass Oxygen Delivery Device Other Bedside FiO2 0 % Hemoglobin 12.2 g/dL Hematocrit 38.5 % Troponin I 0.022 ng/ml Pro-B-Type Natriuretic Peptide 1246 pg/ml Test 10/08/17 07:56 10/08/17 12:30 10/08/17 14:31 Arterial Blood pH 7.43 Arterial Blood Partial Pressure CO2 42 mmHg Arterial Blood Partial Pressure O2 81 mm/Hg Arterial Blood HCO3 27 mmol/L Arterial Blood Oxygen Saturation 96.0 % Arterial Blood Base Excess 2.6 mEq/L Arterial Blood Gas Delivery FIO2 60% Hayden Test POS White Blood Count 14.68 K/uL Red Blood Count 4.01 M/uL Hemoglobin 11.8 g/dL Hematocrit 37.9 % Mean Corpuscular Volume 94.5 fL Mean Corpuscular Hemoglobin 29.4 pg Mean Corpuscular Hemoglobin Concent 31.1 g/dl Platelet Count 237 K/uL Mean Platelet Volume 9.3 fL Neutrophils (%) (Auto) 88.2 % Lymphocytes (%) (Auto) 5.4 % Monocytes (%) (Auto) 5.7 % Eosinophils (%) (Auto) 0.3 % Basophils (%) (Auto) 0.1 % Neutrophils # (Auto) 12.94 K/uL Lymphocytes # (Auto) 0.80 K/uL Monocytes # (Auto) 0.83 K/uL Eosinophils # (Auto) 0.05 K/uL Basophils # (Auto) 0.02 K/uL RDW Standard Deviation 60.2 fL RDW Coefficient of Variation 17.2 % Immature Granulocyte % (Auto) 0.3 % Immature Granulocyte # (Auto) 0.04 K/uL Prothrombin Time 12.0 SECONDS Prothromb Time International Ratio 1.1 Activated Partial Thromboplast Time 29.2 SECONDS Partial Thromboplastin Ratio 1.1 Lactic Acid Level 3.0 mmol/L Procalcitonin 37.60 ng/ml Diagnostic Results CT c hest today: No pathologically enlarged axillary mediastinal or hilar lymph nodes were visualized. Postsurgical changes involve the aortic valve and proximal ascending thoracic aorta. There is no evidence of thoracic aortic aneurysm There are very small filling defects within a right upper lobe pulmonary artery branch and right lower lobe pulmonary artery branch. No pleural effusions are visualized. There is a large hiatal hernia. There is left lung volume loss. There is dense consolidation left lower lobe with air bronchograms. There are multifocal airspace opacities within the left upper lobe. The findings are consistent with extensive pneumonia. Dependent airspace opacities on the right are felt to be atelectatic. There are multiple vertebral body compression deformities. Assessment & Plan Acute respiratory failure Left lung pneumonia Pulmonary embolism Aortic stenosis s/p TAVR COPD Plan: BUSINESS ANALYST CONSULTANT: Monitor mental status Pulmonary: Supplement O2 Clinically improved. Avoid BIPAP given extensive pneumonia Chest physiotherapy, vibration vest Bronchodilators, inhaled Mucomyst Abx Not clear of the etiology of the pneumonia, seems to have developed rapidly by xrays and history ?possible aspiration, although unusual given left lung predominance PE is mostly chronic. Cautiously resumed heparin CVS: Initially hypertensive, now borderline hypotensive No need for pressor support yet Hold diuretics ID: Check blood and sputum cultures Broad spectrum antibiotics, on Vanco, Zosyn and Doxy Procalcitonin 37.6 GI: BID Protonix as well as ranitidine Renal/metabolic: MYRTLE Hold diuretics Hydration if needed Trend lactic acid. May be elevated secondary to sepsis, but also secondary to very increased work of breathing Hene: Full AC for now. Monitor for bleeding Critical care time spent with the patient and family, discussing with consultants, greater than 35 minutes I discussed with the son the possibility of intubation if needed
[2017-10-08] MEDS: MIRTAZAPINE SOLTAB 15 MG PO SCH (19:13)
[2017-10-08] MEDS: RANITIDINE HCL 150 MG TAB PO SCH (19:13)
[2017-10-08] MEDS: PIPERACILL/TAZOBAC IV 3.375 GM in DEXTROSE 5% 100ML IV SCH (20:02)
[2017-10-08] MEDS ORDERED: MoRPHine SULFATE 2 MG/ML CARP IV STA (20:25)
[2017-10-08] MEDS ORDERED: FENTANYL CITRATE INJ 50 MCG/1 ML 2 ML VIAL IV ONE (20:30)
[2017-10-08 21:08] LABS: PTT PATIENT 145.2 SECONDS (21.0-31.0)
[2017-10-08] MEDS: ACETYLCYSTEINE 20% INHAL SOLN ***DISPENSED BY RESP. INH SCH (22:00)
[2017-10-08 22:25] LABS: PTT PATIENT 133.3 SECONDS (21.0-31.0)
[2017-10-08 23:18] LABS: PTT PATIENT 106.3 SECONDS (21.0-31.0)
[2017-10-09] VITALS (16 sets, daily range): BP systolic 86–140; BP diastolic 36–73; PULSE 81–116; TEMP 36.5–37.3; O2SAT 21–98
[2017-10-09 00:27] LABS: PTT PATIENT 141.7 SECONDS (21.0-31.0)
[2017-10-09] MEDS ORDERED: FENTANYL CITRATE INJ 50 MCG/1 ML 2 ML VIAL IV ONE (01:15)
[2017-10-09 01:21] LABS: PTT PATIENT 68.9 SECONDS (21.0-31.0)
[2017-10-09] MEDS: HEPARIN 25,000 UNIT/500ML D5W 500 ML IV PRN (01:42)
[2017-10-09 05:28] LABS: HEMATOCRIT 28.4 % (37-47); HEMOGLOBIN 9.3 g/dL (12.0-16.0); MEAN CELL VOLUME 92.8 fL (80-100); MEAN CORPUSCULAR HEMOGLOBIN 30.4 pg (25-34); MEAN CORPUSCULAR HGB CONC 32.7 g/dl (32-36); MEAN PLATELET VOLUME 9.3 fL (7.4-10.4); PLATELET COUNT 206 K/uL (130-400); RED CELL DISTRIBUTION WIDTH CV 17.7 % (11.5-14.5)
[2017-10-09 05:51] LABS: PTT PATIENT 119.9 SECONDS (21.0-31.0)
[2017-10-09 05:54] LABS: BASO % 0.1 %; BASO ABS # 0.02 K/uL (0-0.2); EOS % 0.3 %; EOS ABS # 0.04 K/uL (0-0.5); IG# 0.03 K/uL (0.00-0.02); LYMPH % 8.5 %; MONO % 6.5 %; MONO ABS # 0.99 K/uL (0.11-0.59); NEUT % 84.4 %; NEUT ABS # 12.92 K/uL (1.4-6.5)
[2017-10-09 06:00] LABS: CALCIUM 9.3 mg/dl (8.5-10.1); CREATININE 1.94 mg/dl (0.60-1.20)
[2017-10-09] MEDS: PIPERACILL/TAZOBAC IV 3.375 GM in DEXTROSE 5% 100ML IV SCH ×2 (06:01→18:00)
[2017-10-09 06:02] LABS: PHOSPHORUS 3.7 mg/dl (2.5-4.9); TOTAL PROTEIN 5.3 gm/dl (6.4-8.2)
[2017-10-09] MEDS ORDERED: VANCOMYCIN IV 1,000 MG in SODIUM CHLORIDE 0.9% 250ML 250 ML IV ONE (07:00)
[2017-10-09] MEDS: LEVALBUTEROL 1.25MG/0.5ML NEB INH SCH ×5 (07:14→23:13)
[2017-10-09] MEDS: ACETYLCYSTEINE 20% INHAL SOLN ***DISPENSED BY RESP. INH SCH ×3 (07:14→23:13)
[2017-10-09] MEDS: IPRATROPIUM BROMIDE NEB SOLN 0.02% 2.5 ML VIAL INH SCH ×5 (07:14→23:13)
--- NOTE | 2017-10-09 07:44 | DIAGNOSTIC IMAGING REPORT ---
CHEST ONE VIEW PORTABLE CLINICAL HISTORY: Pneumonia f/u dyspnea COMPARISON STUDY: 10/08/2017 FINDINGS: Improving parenchymal infiltrate left base. Improved aeration left lung base. Interval segmental atelectasis or versus infiltrate right base. Pulmonary apices are generally clear. left perihilar and left upper lung nodularity versus scattered infiltrative change. IMPRESSION: Improving aeration left lung base. Interval developing infiltrate/atelectasis right base. The above report was generated using voice recognition software. It may contain grammatical, syntax or spelling errors. Electronically signed by: Albert Mccarthy M.D. 10/09/2017 7:43 AM Dictated Date/Time: 10/09/2017 7:39 AM
[2017-10-09] MEDS: FLUTICASONE/SALMETEROL 250/50 (ADVAIR) 14 PUFF/1 INHALER INH SCH ×2 (08:06→20:57)
[2017-10-09] MEDS: LIDODERM (LIDOCAINE) PATCH 5% TD SCH (08:07)
[2017-10-09] MEDS ORDERED: MAGNESIUM SULFATE 1GM / D5W 1 GM in PREMIXED IN D5W 100 ML IV ONE (09:39)
[2017-10-09] MEDS: DOXYCYCLINE IV 100 MG in DEXTROSE 5% 100ML 100 ML IV SCH ×2 (10:07→22:13)
[2017-10-09] MEDS: MAGNESIUM OXIDE 400 MG TAB PO SCH (10:08)
[2017-10-09] MEDS: LACTOBACILLUS ACIDOPHILUS (FLORANEX) TAB PO SCH ×3 (10:08→17:28)
[2017-10-09] MEDS: SENNA 8.6 MG TAB PO PRN (10:08)
[2017-10-09] MEDS: PAROXETINE 20 MG TAB PO SCH (10:08)
[2017-10-09] MEDS: FERROUS SULFATE 325 MG TAB PO SCH ×2 (10:09→21:01)
[2017-10-09] MEDS: POTASSIUM CHLORIDE 10 MEQ TABCR PO SCH ×2 (10:09→21:01)
[2017-10-09] MEDS: GABAPENTIN 100 MG CAP PO SCH (10:09)
[2017-10-09] MEDS: METOPROLOL SUCC 25MG EXT REL TAB PO SCH ×2 (10:10→21:00)
[2017-10-09] MEDS: PANTOprazole SOD 40 MG TAB PO SCH ×2 (10:12→21:01)
[2017-10-09] MEDS: SUCRALFATE 1 GM/10 ML UDC PO SCH ×4 (10:13→20:58)
[2017-10-09] MEDS: FENTANYL 25 MCG/HR TDSY TD SCH (10:19)
--- NOTE | 2017-10-09 10:44 | Progress Note ---
Internal Med Progress Note Date of Service: Oct 09, 2017. Provider Documentation: SUBJECTIVE: Patient seen in ICU bed 9, off BiPAP On 5 L oxygen via nasal cannula More awake and alert than yesterday, still have moist productive cough Diet ordered(patient was n.p.o. yesterday as was on BiPAP /respiratory failure -Concern for aspiration pneumonia Patient mentions of having occasional discomfort on epigastric area after meals does not recall choking on food -Diet ordered mechanical soft with aspiration -Speech pathology eval requested OBJECTIVE: Vital Signs-as noted below Exam: General-very weak, not in apparent distress ENT-dry oral mucosa Neck-no JVD, no carotid bruit, no thyromegaly noted Lungs-bibasilar rales Heart-regular Abdomen-soft nontender no organomegaly, Extremities-no rash, no deformity, no lower extremity, no calf tenderness. Neuro-, generalized weakness, no focal neurological deficit noted. Lab data as noted below. ASSESSMENT & PLAN: ACUTE HYPOXEMIC RESPIRATORY FAILURE : -Possible due to aspiration pneumonia -Developed sudden onset of hypoxemia with increased work of breathing - stat portable chest x-ray showed progressive patchy air space opacity throughout the lungs more pronounced on the left side concern from pulmonary edema versus pneumonia -Required BiPAP -Was transferred to ICU -Lactic acid /pro calcitonin level was elevated -Patient started empirically with IV vancomycin/IV Zosyn/IV doxycycline for atypical coverage -Ordered for blood and sputum culture SEVERE SEPSIS /DUE TO ASPIRATION PNEUMONIA : -Meets criteria for sepsis, leukocytosis tachycardia elevated lactic acid and pro calcitonin level -On empiric broad-spectrum antibiotic as above -Follow culture report -Speech pathology consulted to assess for dysphagia/aspiration risk HX OF DVT /SMALL PE NOTED IN CT CHEST : CT chest finding of small pulmonary embolism in the right lung Doubt that caused respiratory failure -Patient has significant bleeding risk while on anticoagulation -Was started with IV heparin yesterday -Drop of hemoglobin noted from - -Order to DC IV heparin -Repeat H&H in the afternoon ordered ANEMIA /CONCERN FOR GI BLEED : Presented with symptomatic anemia/secondary to GI bleed: Status post 1 PRBC transfusion (presented with hemoglobin 7.7) post post transfusion hemoglobin is stable hb 12- 11.4 No active GI bleed noted. Appreciate input from GI team, Underwent EGD October 05, 2017, by Dr. Osman Shows: There was marked corkscrew appearance to the lower esophagus appeared to be a fixed defect-, rather than disordered peristalsis. The GE junction was at 30 cm. There was a mild ring at the GE junction. There is large hiatal hernia. The mucosa of the stomach were otherwise normal No source of upper GI bleeding noted Coumadin was DC'd DC IV heparin ACUTE KIDNEY INJURY /CKD STAGE 3: -Creatinine elevated -iv Lasix was ordered for concern for CHF /bilateral pleural effusion / respiratory distress -Received contrast study for CT chest PE study -Monitor electrolytes -Avoid NSAId's DVT PROPHYLAXIS D/c IV heparin SCD and teds CODE STATUS: Full code DISPOSITION in ICU for critical illness Vital Signs: Date Time Temp Pulse Resp B/P (MAP) Pulse Ox O2 Delivery O2 Flow Rate FiO2 10/10/17 14:06 38.1 110 18 111/63 (79) 93 10/10/17 12:10 Nasal Cannula 5.0 10/10/17 11:43 36.6 110 22 126/66 (86) 92 10/10/17 08:00 Nasal Cannula 3.0 10/10/17 07:52 36.6 105 20 127/55 (79) 96 4.0 10/10/17 07:44 97 18 94 Nasal Cannula 4.0 10/10/17 04:00 Nasal Cannula 4.0 10/10/17 03:55 36.6 92 22 118/69 (85) 97 Nasal Cannula 4.0 10/10/17 03:30 99 20 144/70 (94) 93 Nasal Cannula 4.0 10/10/17 03:13 99 18 92 Nasal Cannula 4.0 10/10/17 02:59 36.4 93 20 139/67 (91) 96 Nasal Cannula 4.0 10/10/17 00:04 36.3 95 20 100/57 (71) 97 Nasal Cannula 4.0 10/10/17 00:00 Nasal Cannula 4.0 10/09/17 23:14 90 16 96 Nasal Cannula 5.0 10/09/17 22:12 98 106/62 (77) 10/09/17 20:56 96 95/54 (68) 10/09/17 20:00 36.7 106 86/46 (59) 21 Nasal Cannula 3.0 98 10/09/17 20:00 98 Nasal Cannula 5.0 10/09/17 20:00 116 88/52 (64) 10/09/17 18:58 91 18 93 Nasal Cannula 5.0 10/09/17 16:29 36.5 112 20 109/62 (78) 98 Nasal Cannula 5.0 10/09/17 16:01 81 20 94 Nasal Cannula 5.0 10/09/17 16:00 Nasal Cannula 3.0 Lab Results: Results Past 24 Hours Test 10/09/17 16:11 10/10/17 03:05 10/10/17 07:15 10/10/17 07:30 Range/Units White Blood Count 14.98 14.41 4.8-10.8 K/uL Red Blood Count 3.08 3.01 4.2-5.4 M/uL Hemoglobin 9.1 9.1 12.0-16.0 g/dL Hematocrit 28.7 27.9 37-47 % Mean Corpuscular Volume 93.2 92.7 80-100 fL Mean Corpuscular Hemoglobin 29.5 30.2 25-34 pg Mean Corpuscular Hemoglobin Concent 31.7 32.6 32-36 g/dl RDW Standard Deviation 60.3 59.4 36.4-46.3 fL RDW Coefficient of Variation 17.6 17.5 11.5-14.5 % Platelet Count 215 226 130-400 K/uL Mean Platelet Volume 9.4 9.7 7.4-10.4 fL Bedside Glucose 152 70-90 mg/dl Sodium Level 136 136-145 mmol/L Potassium Level 3.6 3.5-5.1 mmol/L Chloride Level 102 98-107 mmol/L Carbon Dioxide Level 27 21-32 mmol/L Anion Gap 7.0 3-11 mmol/L Blood Urea Nitrogen 36 7-18 mg/dl Creatinine 1.68 0.60-1.20 mg/dl Est Creatinine Clear Calc Drug Dose 21.4 ml/min Estimated GFR () 32.0 Estimated GFR (Non- 27.6 BUN/Creatinine Ratio 21.6 10-20 Random Glucose 100 70-99 mg/dl Calcium Level 9.5 8.5-10.1 mg/dl Total Bilirubin 0.3 0.2-1 mg/dl Direct Bilirubin 0.1 0-0.2 mg/dl Aspartate Amino Transf (AST/SGOT) 26 15-37 U/L Alanine Aminotransferase (ALT/SGPT) 14 12-78 U/L Alkaline Phosphatase 95 45-117 U/L Total Protein 5.9 6.4-8.2 gm/dl Albumin 2.1 3.4-5.0 gm/dl Globulin 3.8 2.5-4.0 gm/dl Albumin/Globulin Ratio 0.5 0.9-2 Procalcitonin 33.49 0-0.5 ng/ml Random Vancomycin Level 19.0 mcg/ml Test 10/10/17 07:35 Range/Units Lactic Acid Level 1.6 0.4-2.0 mmol/L
--- NOTE | 2017-10-09 10:49 | Cardiology Follow-Up ---
Subjective General Date of Service: Oct 09, 2017. Chief Complaint: CHF Pt evaluation today including: conversation w/ patient, physical exam, chart review, lab review, review of studies, review of inpatient medication list History of Present Illness Patient seen and examined in ICU 9. She appears to be more comfortable. Complaints include dry mouth, cough, chest congestion, generalized weakness, malaise. No chest pain. No palpitations. No orthopnea or PND. No lower extremity peripheral edema. Telemetry: Sinus/sinus tachycardia. No significant atrial or ventricular arrhythmias reported. The last episode of SVT versus PAT occurred on 10/08/2017 at 06:45:24. Echo: Pending interpretation. Allergies Coded Allergies: Cefdinir (Verified Allergy, Mild, RASH-HAS HAD ROCEPHIN,CEFEPIME MANY TIMES, 09/21/17) Clonazepam (Verified Allergy, Unknown, ., 09/21/17) Levofloxacin (Verified Allergy, Unknown, unknown, 09/21/17) Sulfasalazine (Verified Allergy, Unknown, ., 09/21/17) Metoclopramide (Verified Adverse Reaction, Intermediate, TREMORS, 09/21/17) Social History Smoking Status: Never Smoker Hx Tobacco Use In Past Year?: No Hx Alcohol Use - Type And Amou: No Hx Substance Use - Type And Am: No Problem List Medical Problems: (1) Acute kidney injury Status: Acute (2) Ambulatory dysfunction Status: Acute (3) Anemia Status: Chronic (4) Anticoagulated on Coumadin Status: Acute (5) Anticoagulated on Coumadin Status: Acute (6) Bronchitis with bronchospasm Status: Acute (7) Change in mental status Status: Acute (8) Contusion of left knee Status: Acute (9) Creatinine elevation Status: Acute (10) Dehydration Status: Acute (11) Dehydration Status: Acute (12) Dehydration Status: Acute (13) Dyspnea Status: Acute (14) Dyspnea Status: Acute (15) GI bleed Status: Acute (16) GI bleed Status: Acute (17) Hypotension Status: Acute (18) Melena Status: Acute (19) Pulmonary embolism Status: Acute (20) SBO (small bowel obstruction) Status: Acute (21) Sepsis due to urinary tract infection Status: Acute (22) Small bowel obstruction Status: Acute (23) Small bowel obstruction Status: Acute (24) SOB (shortness of breath) Status: Acute (25) Subtherapeutic international normalized ratio (INR) Status: Acute (26) Symptomatic anemia Status: Acute (27) Symptomatic anemia Status: Acute (28) Upper GI bleed Status: Acute (29) Urinary tract infection Status: Acute (30) UTI (urinary tract infection) Status: Acute (31) Weakness Status: Acute (32) Weakness Status: Acute Physical Exam Vital Signs Last Vital Signs Documentation Date Time Temp Pulse Resp B/P (MAP) Pulse Ox O2 Delivery O2 Flow Rate FiO2 10/09/17 08:00 98 Nasal Cannula 5.0 10/09/17 08:00 36.8 99 16 122/56 (78) 10/08/17 15:41 60 Physical Exam Constitutional: Level of Distress: acutely ill, chronically ill Psychiatric: Mental Status: lethargic Orientation: to place, to person, not oriented to time Memory: recent memory normal, remote memory normal Head: normocephalic, atraumatic Eyes: Pupils: PERRLA Neck: pertinent finding (No JVD) Lungs: Respiratory effort: dyspneic Auscultation: no wheezing, deminished air movement, decreased breath sounds , wet rales/crackles, rhonchi Cardiovascular: Heart Auscultation: RRR, normal S1, normal S2, no murmurs, no rubs, no gallops, tachycardia Peripheral Pulses: Radial Pulse: normal on the left, normal on the right Dorsalis Pedis Pulse: decreased on the left, decreased on the right Abdomen: Bowel Sounds: normal Inspection & Palpation: soft Extremities: no cyanosis, no edema, no clubbing Neurologic: Cranial Nerves: grossly intact Assessment and Plan Assessment and Plan Acute respiratory failure, left lung pneumonia and very small pulmonary embolism Evidence of intravascular volume depletion Stable coronary artery disease History of aortic valve stenosis status post May 13, 2016 TAVR (26 mm CoreValve Evolute) Multiple other problems listed in my initial consultation Recommendations: Continue low-dose chronic beta-hayden therapy as prescribed. Please call with any questions or concerns. CARDIOLOGY ATTENDING ADDENDUM: The patient was seen and personally examined. Agree with Albert Schmidt PA-C's findings and plans as documented above. The patient was transferred to the ICU and now has developed the left upper lobe pneumonia felt to be due to aspiration post endoscopy. She is stable and doing better. Laboratory Results Last 24 Hours Test 10/08/17 12:30 10/08/17 13:46 10/08/17 14:31 10/08/17 18:32 White Blood Count 14.68 K/uL Red Blood Count 4.01 M/uL Hemoglobin 11.8 g/dL Hematocrit 37.9 % Mean Corpuscular Volume 94.5 fL Mean Corpuscular Hemoglobin 29.4 pg Mean Corpuscular Hemoglobin Concent 31.1 g/dl Platelet Count 237 K/uL Mean Platelet Volume 9.3 fL Neutrophils (%) (Auto) 88.2 % Lymphocytes (%) (Auto) 5.4 % Monocytes (%) (Auto) 5.7 % Eosinophils (%) (Auto) 0.3 % Basophils (%) (Auto) 0.1 % Neutrophils # (Auto) 12.94 K/uL Lymphocytes # (Auto) 0.80 K/uL Monocytes # (Auto) 0.83 K/uL Eosinophils # (Auto) 0.05 K/uL Basophils # (Auto) 0.02 K/uL RDW Standard Deviation 60.2 fL RDW Coefficient of Variation 17.2 % Immature Granulocyte % (Auto) 0.3 % Immature Granulocyte # (Auto) 0.04 K/uL Prothrombin Time 12.0 SECONDS Prothromb Time International Ratio 1.1 Activated Partial Thromboplast Time 29.2 SECONDS Partial Thromboplastin Ratio 1.1 Bedside Glucose 87 mg/dl Lactic Acid Level 3.0 mmol/L 3.5 mmol/L Procalcitonin 37.60 ng/ml Test 10/08/17 19:03 10/08/17 20:31 10/08/17 21:46 10/08/17 22:47 Bedside Glucose 91 mg/dl Activated Partial Thromboplast Time 145.2 SECONDS 133.3 SECONDS 106.3 SECONDS Partial Thromboplastin Ratio 5.6 5.1 4.1 Lactic Acid Level 3.2 mmol/L Test 10/08/17 23:37 10/09/17 00:02 10/09/17 00:50 10/09/17 05:06 Activated Partial Thromboplast Time 141.7 SECONDS 68.9 SECONDS 119.9 SECONDS Partial Thromboplastin Ratio 5.4 2.7 4.6 Bedside Glucose 108 mg/dl White Blood Count 15.30 K/uL Red Blood Count 3.06 M/uL Hemoglobin 9.3 g/dL Hematocrit 28.4 % Mean Corpuscular Volume 92.8 fL Mean Corpuscular Hemoglobin 30.4 pg Mean Corpuscular Hemoglobin Concent 32.7 g/dl Platelet Count 206 K/uL Mean Platelet Volume 9.3 fL Neutrophils (%) (Auto) 84.4 % Lymphocytes (%) (Auto) 8.5 % Monocytes (%) (Auto) 6.5 % Eosinophils (%) (Auto) 0.3 % Basophils (%) (Auto) 0.1 % Neutrophils # (Auto) 12.92 K/uL Lymphocytes # (Auto) 1.30 K/uL Monocytes # (Auto) 0.99 K/uL Eosinophils # (Auto) 0.04 K/uL Basophils # (Auto) 0.02 K/uL RDW Standard Deviation 60.0 fL RDW Coefficient of Variation 17.7 % Immature Granulocyte % (Auto) 0.2 % Immature Granulocyte # (Auto) 0.03 K/uL Dohle Bodies 1+ Sodium Level 138 mmol/L Potassium Level 4.0 mmol/L Chloride Level 102 mmol/L Carbon Dioxide Level 28 mmol/L Anion Gap 8.0 mmol/L Blood Urea Nitrogen 33 mg/dl Creatinine 1.94 mg/dl Est Creatinine Clear Calc Drug Dose 18.1 ml/min Estimated GFR () 26.9 Estimated GFR (Non- 23.2 BUN/Creatinine Ratio 16.9 Random Glucose 109 mg/dl Calcium Level 9.3 mg/dl Ionized Calcium 1.27 mmol/l Phosphorus Level 3.7 mg/dl Magnesium Level 1.7 mg/dl Total Bilirubin 0.5 mg/dl Aspartate Amino Transf (AST/SGOT) 22 U/L Alanine Aminotransferase (ALT/SGPT) 12 U/L Alkaline Phosphatase 75 U/L Total Protein 5.3 gm/dl Albumin 2.0 gm/dl Globulin 3.3 gm/dl Albumin/Globulin Ratio 0.6 Procalcitonin 55.26 ng/ml Random Vancomycin Level 16.0 mcg/ml Test 10/09/17 06:11 10/09/17 09:40 Bedside Glucose 113 mg/dl Lactic Acid Level 1.6 mmol/L
--- NOTE | 2017-10-09 12:52 | Pharmacy Progress Note ---
Pharmacy Abx Dose Progress Nt Date of Service Oct 09, 2017. Pharmacy Dosing Scope The patient is currently receiving the following antimicrobial agents per Pharmacy consult: * Vancomycin IV - dosing per random levels * Zosyn 3.375gm IV ext-infusion Q 8 hours Objective Height (Feet): 5 Height (Inches): 1.00 Weight (Kilograms): 64.000 Vital Signs (Past 12Hrs) Vital Signs Past 12 Hours Date Time Temp Pulse Resp B/P (MAP) Pulse Ox O2 Delivery O2 Flow Rate FiO2 10/09/17 12:00 92 Nasal Cannula 3.0 10/09/17 12:00 36.8 102 17 105/47 (66) 95 Nasal Cannula 3.0 10/09/17 10:00 94 24 122/73 (89) 97 Nasal Cannula 3.0 10/09/17 08:00 98 Nasal Cannula 5.0 10/09/17 08:00 36.8 99 16 122/56 (78) 97 Nasal Cannula 5.0 10/09/17 06:00 96 20 113/50 (71) 93 Nasal Cannula 5.0 10/09/17 04:00 94 20 95 Nasal Cannula 5.0 10/09/17 04:00 Nasal Cannula 6.0 10/09/17 04:00 37.3 96 20 89/36 (53) 97 Nasal Cannula 6.0 10/09/17 02:00 105 20 105/49 (67) 97 Nasal Cannula 6.0 Lab Results (24Hrs) Laboratory Tests (24 Hours) Test 10/09/17 05:06 10/09/17 09:40 White Blood Count 15.30 K/uL (4.8-10.8) H Red Blood Count 3.06 M/uL (4.2-5.4) L Hemoglobin 9.3 g/dL (12.0-16.0) L Hematocrit 28.4 % (37-47) L Mean Corpuscular Volume 92.8 fL (80-100) Mean Corpuscular Hemoglobin 30.4 pg (25-34) Mean Corpuscular Hemoglobin Concent 32.7 g/dl (32-36) Platelet Count 206 K/uL (130-400) Mean Platelet Volume 9.3 fL (7.4-10.4) Neutrophils (%) (Auto) 84.4 % Lymphocytes (%) (Auto) 8.5 % Monocytes (%) (Auto) 6.5 % Eosinophils (%) (Auto) 0.3 % Basophils (%) (Auto) 0.1 % Neutrophils # (Auto) 12.92 K/uL (1.4-6.5) H Lymphocytes # (Auto) 1.30 K/uL (1.2-3.4) Monocytes # (Auto) 0.99 K/uL (0.11-0.59) H Eosinophils # (Auto) 0.04 K/uL (0-0.5) Basophils # (Auto) 0.02 K/uL (0-0.2) Procalcitonin 55.26 ng/ml (0-0.5) H Lactic Acid Level 1.6 mmol/L (0.4-2.0) Micro Results Date/Time Source Procedure Growth Status 10/08/17 14:31 Blood Blood Culture Pending Received 10/08/17 14:30 Blood Blood Culture Pending Received 10/08/17 06:50 Blood Blood Culture Pending Received 10/08/17 06:38 Blood Blood Culture Pending Received 10/08/17 14:45 Nasal MRSA DNA Surveillance Screen - Final Specimen Positive for MRSA by DNA Probe Complete 10/02/17 20:30 Stool C.difficile Toxin B Gene (PCR) - Final No C. difficile toxin B gene detected Complete 10/04/17 00:00 Urine , Clean Catch Urine Culture - Final THREE TYPES OF ORGANISMS PRESENT, ALL... Complete Risk Factors for Resistance * Hospitalization for 48 hours or more within the past 90 days * Current hospitalization > 5 days * History of infection with a multidrug-resistant organism: MRSA in urine cx in the past * Antimicrobial use within the last 90 days (08/2017: ampicillin, vancomycin, and cefepime) Assessment & Plan Assessment * 82 year old female admitted for symptomatic anemia for GIB * Transferred to ICU 10/08/17 due to respiratory distress and CT findings of pneumonia * Pharmacy was consulted to initiate vancomycin and Zosyn IV for this patient; in addition she is receiving Doxycycline IV * Pharmacy has dosed vancomycin for this patient in the recent past * MRSA nasal swab +, procalcitonin elevated (55.3), lactate also elevated yesterday however down to 1.6 today * Acute leukocytosis noted on yesterday's labs and continues today * Renal fxn continues to decline, SCr increased to 1.56 yesterday and increased to 1.94 today (baseline ~1.1); U.O. 1100 yesterday Plan Vancomycin IV * 1250mg (20.5mg/kg) IV x 1 given yesterday afternoon * Random level this AM drawn ~14 hours after the loading dose = 16 and is therapeutic * Continue dose to patient empirically using random levels as estimated half- life > 24 hours * Will give 1000mg (~15.6mg/kg) x 1 this AM and check level w/ AM labs tomorrow * Goal trough for pulm infxn: 15-20mcg/mL Piperacillin/tazobactam * Change 3.375 g IV extended infusion to every 12 hours for CrCl 20 mL/min or less * BMI < 35 Pharmacy will continue to follow and will adjust dose/frequency as necessary. Thank you.
[2017-10-09] MEDS: CHECK FENTANYL PATCH PLACEMENT SCH (16:14)
[2017-10-09 16:29] LABS: HEMATOCRIT 28.7 % (37-47); HEMOGLOBIN 9.1 g/dL (12.0-16.0); MEAN CELL VOLUME 93.2 fL (80-100); MEAN CORPUSCULAR HEMOGLOBIN 29.5 pg (25-34); MEAN CORPUSCULAR HGB CONC 31.7 g/dl (32-36); MEAN PLATELET VOLUME 9.4 fL (7.4-10.4); PLATELET COUNT 215 K/uL (130-400); RED CELL DISTRIBUTION WIDTH CV 17.6 % (11.5-14.5); RED CELL DISTRIBUTION WIDTH SD 60.3 fL (36.4-46.3); WHITE BLOOD COUNT 14.98 K/uL (4.8-10.8)
--- NOTE | 2017-10-09 17:36 | ECHOCARDIOGRAM REPORT ---
*NOTICE TO RECEIVING REPUBLICAN AGENCY This information is strictly Confidential and protected under [place] law. [place] law prohibits you from making any further disclosure of this information unless further disclosure is expressly permitted by the written consent of the person to whom it pertains or is authorized by law. A general authorization for the release of medical or other information is not sufficient for this purpose. Hospital accepts no responsibility if the information is made available to any other person, INCLUDING THE PATIENT. Interpretation Summary * Name: JOEL CORBIN Study Date: 10/08/2017 02:42 PM BP: 97/62 mmHg * [facility]1 HR: 106 * : 1935 (M/d/yyy) Gender: Female Height: 61 in * Age: 82 yrs Ethnicity: [place] Weight: 134 lb * Ordering Physician: Albert Schmidt * Referring Physician: Myrna Inman * Performed By: Myrna Perdomo RDCS * * Reason For Study: CHF * BSA: 1.6 m2 * -- Conclusions -- * The patient is status post TAVR * The prosthetic aortic valve is well-seated. * The gradient is normal for this prosthetic aortic valve. * The left ventricular cavity is small. * The left ventricle is hyperdynamic. * Ejection Fraction = >70 %. * The right ventricular systolic function is normal. * The left atrium is moderately dilated. * The right atrium is mildly dilated. * There is no evidence of pulmonary hypertension. The PA systolic pressure is less than 36 mmHg. Procedure Details * A complete two-dimensional transthoracic echocardiogram was performed (2D, M-mode, Doppler and color flow Doppler). Left Ventricle * The left ventricular cavity is small. * Ejection Fraction = >70 %. * The left ventricle is hyperdynamic. Right Ventricle * The right ventricle is grossly normal size. * The right ventricular systolic function is normal. Atria * The left atrium is moderately dilated. * The right atrium is mildly dilated. * The interatrial septum is intact with no evidence for an atrial septal defect. Mitral Valve * The mitral valve leaflets appear thickened, but open well. * There is moderate mitral annular calcification. * Significant mitral regurgitation is absent. Tricuspid Valve * The tricuspid valve is not well visualized, but is grossly normal. * Significant tricuspid regurgitation is absent. Aortic Valve * The patient is status post TAVR * The prosthetic aortic valve is well-seated. * The gradient is normal for this prosthetic aortic valve. Pulmonic Valve * The pulmonic valve is not well visualized. * There is no significant pulmonary regurgitation. Pericardium/Pleural * There is no pericardial effusion. Great Vessels * There is no evidence of pulmonary hypertension. The PA systolic pressure is less than 36 mmHg. MMode 2D Measurements and Calculations IVSd 1.3 cm LVIDd 3.4 cm LVIDs 2.0 cm LVPWd 1.2 cm IVS/LVPW 1.1 FS 41.4 % EDV(Teich) 47.1 ml ESV(Teich) 12.5 ml EF(Teich) 73.4 % EDV(cubed) 39.0 ml ESV(cubed) 7.9 ml EF(cubed) 79.8 % LV mass(C)d 135.2 grams LV mass(C)dI 84.8 grams/m\S\2 SV(Teich) 34.6 ml SI(Teich) 21.7 ml/m\S\2 SV(cubed) 31.1 ml SI(cubed) 19.5 ml/m\S\2 Ao root diam 1.8 cm Ao root area 2.5 cm\S\2 ACS 0.83 cm LA dimension 2.0 cm asc Aorta Diam 1.5 cm LA/Ao 1.1 LVOT diam 1.4 cm LVOT area 1.5 cm\S\2 LVAd ap4 13.3 cm\S\2 LVLd ap4 5.1 cm EDV(MOD-sp4) 28.8 ml EDV(sp4-el) 29.4 ml LVAs ap4 6.3 cm\S\2 LVLs ap4 4.5 cm ESV(MOD-sp4) 7.8 ml ESV(sp4-el) 7.4 ml EF(MOD-sp4) 72.9 % EF(sp4-el) 74.7 % LVAd ap2 10.0 cm\S\2 LVLd ap2 4.8 cm EDV(MOD-sp2) 17.3 ml EDV(sp2-el) 17.4 ml LVAs ap2 4.6 cm\S\2 LVLs ap2 4.2 cm ESV(MOD-sp2) 5.0 ml ESV(sp2-el) 4.3 ml EF(MOD-sp2) 71.0 % EF(sp2-el) 75.1 % LVLd %diff -6.14 % EDV(MOD-bp) 23.0 ml LVLs %diff -5.76 % ESV(MOD-bp) 6.3 ml EF(MOD-bp) 72.5 % SV(MOD-sp4) 21.0 ml SI(MOD-sp4) 13.2 ml/m\S\2 SV(MOD-sp2) 12.3 ml SI(MOD-sp2) 7.7 ml/m\S\2 SV(MOD-bp) 16.7 ml SI(MOD-bp) 10.5 ml/m\S\2 SV(sp4-el) 22.0 ml SI(sp4-el) 13.8 ml/m\S\2 SV(sp2-el) 13.1 ml SI(sp2-el) 8.2 ml/m\S\2 Doppler Measurements and Calculations MV E max winter 115.7 cm/sec MV A max winter 167.9 cm/sec MV E/A 0.69 MV V2 max 188.7 cm/sec MV max PG 14.2 mmHg MV V2 mean 112.2 cm/sec MV mean PG 5.7 mmHg MV V2 VTI 37.1 cm MV P1/2t max winter 129.0 cm/sec MV P1/2t 76.1 msec MVA(P1/2t) 2.9 cm\S\2 MV dec slope 496.4 cm/sec\S\2 MV dec time 0.33 sec Ao V2 max 161.3 cm/sec Ao max PG 10.4 mmHg Ao max PG (full) 2.8 mmHg ALEXSANDRA(V,A) 1.3 cm\S\2 ALEXSANDRA(V,D) 1.3 cm\S\2 LV V1 max PG 7.6 mmHg LV V1 max 137.6 cm/sec PA V2 max 96.4 cm/sec PA max PG 3.7 mmHg PA acc slope 645.7 cm/sec\S\2 PA acc time 0.11 sec TR max winter 250.2 cm/sec PA pr(Accel) 28.3 mmHg
--- NOTE | 2017-10-09 18:43 | Critical Care Progress Note ---
Critical Care Progress Note Date of Service Oct 09, 2017. Attending Dr. Hogue Subjective Remarkably improved today. Awake, alert, up in chair, eating, in no respiratory distress. 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 Avoid BIPAP given extensive pneumonia Chest physiotherapy, vibration vest Bronchodilators, inhaled Mucomyst Abx Not clear of the etiology of the pneumonia, seems to have developed rapidly by xrays and history ?possible aspiration, although unusual given left lung predominance PE is mostly chronic. Off heparin drip now given decline in H/H CVS: Initially hypertensive, now borderline hypotensive No need for pressor support yet Hold diuretics ID: Check blood and sputum cultures Broad spectrum antibiotics, on Vanco, Zosyn and Doxy Procalcitonin 37.6 GI: BID Protonix as well as ranitidine Renal/metabolic: MYRTLE Hold diuretics Hydration if needed Lactic acidosis resolved Heme: AC on hold given drop in H/H Monitor for bleeding Critical care time spent with the patient and family, discussing with consultants, greater than 25 minutes Transferred to floor, no need for ICU monitoring Data Medications: Current Inpatient Medications Medications (Trade) Dose Ordered Sig/Rosi Route Start Time Stop Time Status Last Admin Dose Admin Acetaminophen (Tylenol Tab) 650 mg Q4H PRN PO 10/02/17 21:00 11/01/17 20:59 10/07/17 13:20 650 MG Al Hydrox/Mg Hydrox/Simethicone (Maalox Max Susp) 15 ml Q4H PRN PO 10/02/17 21:00 11/01/17 20:59 Magnesium Hydroxide (Milk Of Magnesia Susp) 30 ml Q12H PRN PO 10/02/17 21:00 11/01/17 20:59 Ondansetron HCl (Zofran Inj) 4 mg Q6H PRN IV 10/02/17 21:00 11/01/17 20:59 10/08/17 06:31 4 MG Nitroglycerin (Nitrostat Tab) 0.4 mg UD PRN SL 10/02/17 21:00 11/01/17 20:59 Polyethylene (Miralax Powder Packet) 17 gm DAILY PRN PO 10/02/17 21:00 11/01/17 20:59 Ferrous Sulfate (Feosol Tab) 325 mg BID PO 10/03/17 09:00 11/02/17 08:59 10/09/17 10:09 325 MG Salmeterol Xinafoate/ Fluticasone (Advair Diskus 250/50 Inh) 1 puff BID INH 10/03/17 09:00 11/02/17 08:59 10/09/17 08:06 1 PUFF Gabapentin (Neurontin Cap) 100 mg DAILY PO 10/03/17 09:00 11/02/17 08:59 10/09/17 10:09 100 MG Lactobacillus Acidophilus (Floranex Tab) 1 tab TIDM PO 10/03/17 07:30 11/02/17 07:29 10/09/17 17:28 1 TAB Lorazepam (Ativan Tab) 0.5 mg HS PRN PO 10/02/17 21:15 11/01/17 21:14 10/08/17 00:20 0.5 MG Magnesium Oxide (Mag-Ox Tab) 400 mg DAILY PO 10/03/17 09:00 11/02/17 08:59 10/09/17 10:08 400 MG Metoprolol Succinate (Toprol Xl Tab) 12.5 mg BID PO 10/03/17 09:00 11/02/17 08:59 10/09/17 10:10 12.5 MG Mirtazapine (Remeron Solutab) 15 mg HS PO 10/03/17 21:00 11/02/17 20:59 10/07/17 20:36 15 MG Oxycodone/ Acetaminophen (Percocet 5-325mg Tab) 1 tab Q8H PRN PO 10/02/17 21:15 10/16/17 21:14 10/08/17 00:21 1 TAB Paroxetine HCl (pAXil TAB) 40 mg DAILY PO 10/03/17 09:00 11/02/17 08:59 10/09/17 10:08 40 MG Potassium Chloride (Klor-Con M10) 10 meq BID PO 10/03/17 09:00 11/02/17 08:59 10/09/17 10:09 10 MEQ Ranitidine HCl (zANTac TAB) 300 mg HS PO 10/03/17 21:00 11/02/17 20:59 10/07/17 20:37 300 MG Sucralfate (Carafate Susp) 1 gm QID PO 10/03/17 17:00 11/02/17 16:59 10/09/17 17:28 1 GM Lidocaine (Lidoderm Patch 5%) 1 patch QAM TD 10/05/17 09:00 11/04/17 08:59 10/09/17 08:07 1 PATCH Miscellaneous (Remove Lidoderm Patch) 1 ea DAILY@21 N/A 10/04/17 21:00 11/03/17 20:59 10/08/17 20:03 1 EA Pantoprazole Sodium (Protonix Tab) 40 mg BID PO 10/05/17 21:00 11/04/17 20:59 10/09/17 10:12 40 MG Prednisone (PredniSONE TAB) 5 mg DAILY PO 10/07/17 09:00 11/06/17 08:59 10/09/17 10:12 5 MG Senna (Senokot Tab) 8.6 mg Q24H PRN PO 10/07/17 22:30 11/06/17 22:29 10/09/17 10:08 8.6 MG Furosemide 40 mg/ Syringe 4 ml @ 4 mls/min Q12 IV 10/08/17 09:00 11/07/17 08:59 Future Hold Ipratropium [place] (Atrovent 0.02% 0.5MG/2.5ML Neb) 0.5 mg Q2R PRN INH 10/08/17 08:00 11/07/17 07:59 Levalbuterol (Xopenex 1.25MG/ 0.5ML Neb) 1.25 mg Q2R PRN INH 10/08/17 08:00 11/07/17 07:59 Doxycycline Hyclate 100 mg/ Dextrose 110 ml @ 50 mls/hr Q12 IV 10/08/17 11:00 10/15/17 10:59 10/09/17 10:07 50 MLS/HR Ioversol (Optiray 320) 125 ml UD PRN IV 10/08/17 12:15 10/12/17 12:14 Miscellaneous Information (Consult) 1 ea UD PRN N/A 10/08/17 14:00 11/07/17 13:59 Miscellaneous Information (Consult) 1 ea UD PRN N/A 10/08/17 14:00 11/07/17 13:59 Ipratropium [place] (Atrovent 0.02% 0.5MG/2.5ML Neb) 0.5 mg Q4R INH 10/08/17 20:00 11/07/17 19:59 10/09/17 16:00 0.5 MG Levalbuterol (Xopenex 1.25MG/ 0.5ML Neb) 1.25 mg Q4R INH 10/08/17 20:00 11/07/17 19:59 10/09/17 16:00 1.25 MG Acetylcysteine (Mucomyst 20% Inh Soln) 3 ml Q8R INH 10/08/17 18:00 11/07/17 17:59 10/09/17 16:00 3 ML Piperacillin Sod/ Tazobactam Sod 3.375 gm/Dextrose 115 ml @ 28.75 mls/ hr Q12H IV 10/09/17 18:00 10/15/17 21:59 Fentanyl (Duragesic Patch) 25 mcg Q72H TD 10/09/17 10:00 10/23/17 09:59 10/09/17 10:19 25 MCG Miscellaneous (Fentanyl Patch Remove & Waste) 1 ea Q3D N/A 10/12/17 09:59 11/11/17 09:58 Miscellaneous Information (Check Fentanyl Patch Placement) 1 ea QS N/A 10/09/17 16:00 11/08/17 15:59 10/09/17 16:14 1 EA I & O: 24-Hour Column 10/10/17 08:00 Intake Total 1608 ml Output Total 300 ml Balance 1308 ml Vital Signs: Date Time Temp Pulse Resp B/P (MAP) Pulse Ox O2 Delivery O2 Flow Rate FiO2 10/09/17 16:29 36.5 112 20 109/62 (78) 98 Nasal Cannula 5.0 10/09/17 16:01 81 20 94 Nasal Cannula 5.0 10/09/17 16:00 Nasal Cannula 3.0 10/09/17 12:00 92 Nasal Cannula 3.0 10/09/17 12:00 36.8 102 17 105/47 (66) 95 Nasal Cannula 3.0 10/09/17 11:22 84 20 94 Nasal Cannula 5.0 10/09/17 10:00 94 24 122/73 (89) 97 Nasal Cannula 3.0 10/09/17 08:00 98 Nasal Cannula 5.0 10/09/17 08:00 36.8 99 16 122/56 (78) 97 Nasal Cannula 5.0 10/09/17 07:14 81 20 95 Nasal Cannula 5.0 10/09/17 06:00 96 20 113/50 (71) 93 Nasal Cannula 5.0 10/09/17 04:00 94 20 95 Nasal Cannula 5.0 10/09/17 04:00 Nasal Cannula 6.0 10/09/17 04:00 37.3 96 20 89/36 (53) 97 Nasal Cannula 6.0 10/09/17 02:00 105 20 105/49 (67) 97 Nasal Cannula 6.0 10/09/17 00:01 37.3 106 22 140/69 (92) 98 Nasal Cannula 6.0 10/08/17 23:59 Nasal Cannula 6.0 10/08/17 22:14 37.4 10/08/17 22:04 93 20 95 Mask 6.0 10/08/17 20:00 Oxymask 6.0 10/08/17 20:00 37.5 10/08/17 19:29 105 20 99 Mask 6.0 Laboratory Results: Last 24 Hours Test 10/08/17 19:03 10/08/17 20:31 10/08/17 21:46 10/08/17 22:47 Bedside Glucose 91 mg/dl Activated Partial Thromboplast Time 145.2 SECONDS 133.3 SECONDS 106.3 SECONDS Partial Thromboplastin Ratio 5.6 5.1 4.1 Lactic Acid Level 3.2 mmol/L Test 10/08/17 23:37 10/09/17 00:02 10/09/17 00:50 10/09/17 05:06 Activated Partial Thromboplast Time 141.7 SECONDS 68.9 SECONDS 119.9 SECONDS Partial Thromboplastin Ratio 5.4 2.7 4.6 Bedside Glucose 108 mg/dl White Blood Count 15.30 K/uL Red Blood Count 3.06 M/uL Hemoglobin 9.3 g/dL Hematocrit 28.4 % Mean Corpuscular Volume 92.8 fL Mean Corpuscular Hemoglobin 30.4 pg Mean Corpuscular Hemoglobin Concent 32.7 g/dl Platelet Count 206 K/uL Mean Platelet Volume 9.3 fL Neutrophils (%) (Auto) 84.4 % Lymphocytes (%) (Auto) 8.5 % Monocytes (%) (Auto) 6.5 % Eosinophils (%) (Auto) 0.3 % Basophils (%) (Auto) 0.1 % Neutrophils # (Auto) 12.92 K/uL Lymphocytes # (Auto) 1.30 K/uL Monocytes # (Auto) 0.99 K/uL Eosinophils # (Auto) 0.04 K/uL Basophils # (Auto) 0.02 K/uL RDW Standard Deviation 60.0 fL RDW Coefficient of Variation 17.7 % Immature Granulocyte % (Auto) 0.2 % Immature Granulocyte # (Auto) 0.03 K/uL Dohle Bodies 1+ Sodium Level 138 mmol/L Potassium Level 4.0 mmol/L Chloride Level 102 mmol/L Carbon Dioxide Level 28 mmol/L Anion Gap 8.0 mmol/L Blood Urea Nitrogen 33 mg/dl Creatinine 1.94 mg/dl Est Creatinine Clear Calc Drug Dose 18.1 ml/min Estimated GFR () 26.9 Estimated GFR (Non- 23.2 BUN/Creatinine Ratio 16.9 Random Glucose 109 mg/dl Calcium Level 9.3 mg/dl Ionized Calcium 1.27 mmol/l Phosphorus Level 3.7 mg/dl Magnesium Level 1.7 mg/dl Total Bilirubin 0.5 mg/dl Aspartate Amino Transf (AST/SGOT) 22 U/L Alanine Aminotransferase (ALT/SGPT) 12 U/L Alkaline Phosphatase 75 U/L Total Protein 5.3 gm/dl Albumin 2.0 gm/dl Globulin 3.3 gm/dl Albumin/Globulin Ratio 0.6 Procalcitonin 55.26 ng/ml Random Vancomycin Level 16.0 mcg/ml Test 10/09/17 06:11 10/09/17 09:40 10/09/17 11:39 10/09/17 16:11 Bedside Glucose 113 mg/dl 132 mg/dl Lactic Acid Level 1.6 mmol/L White Blood Count 14.98 K/uL Red Blood Count 3.08 M/uL Hemoglobin 9.1 g/dL Hematocrit 28.7 % Mean Corpuscular Volume 93.2 fL Mean Corpuscular Hemoglobin 29.5 pg Mean Corpuscular Hemoglobin Concent 31.7 g/dl RDW Standard Deviation 60.3 fL RDW Coefficient of Variation 17.6 % Platelet Count 215 K/uL Mean Platelet Volume 9.4 fL
[2017-10-09] MEDS ORDERED: SODIUM CHLORIDE 0.9% 500ML 500 ML IV SCH (20:45)
[2017-10-09] MEDS: RANITIDINE HCL 150 MG TAB PO SCH (21:01)
[2017-10-09] MEDS: MIRTAZAPINE SOLTAB 15 MG PO SCH (21:01)
[2017-10-09] MEDS: LORAZEPAM 0.5 MG TAB PO PRN (22:33)
[2017-10-10] VITALS (17 sets, daily range): BP systolic 93–144; BP diastolic 55–70; PULSE 87–116; TEMP 36.3–38.1; O2SAT 92–97
[2017-10-10] MEDS: IPRATROPIUM BROMIDE NEB SOLN 0.02% 2.5 ML VIAL INH SCH ×6 (03:13→23:04)
[2017-10-10] MEDS: LEVALBUTEROL 1.25MG/0.5ML NEB INH SCH ×6 (03:13→23:04)
[2017-10-10] MEDS: PIPERACILL/TAZOBAC IV 3.375 GM in DEXTROSE 5% 100ML IV SCH ×2 (06:14→17:13)
[2017-10-10] MEDS: ACETYLCYSTEINE 20% INHAL SOLN ***DISPENSED BY RESP. INH SCH ×3 (07:43→23:04)
[2017-10-10 07:44] LABS: HEMATOCRIT 27.9 % (37-47); HEMOGLOBIN 9.1 g/dL (12.0-16.0); MEAN CELL VOLUME 92.7 fL (80-100); MEAN CORPUSCULAR HEMOGLOBIN 30.2 pg (25-34); MEAN CORPUSCULAR HGB CONC 32.6 g/dl (32-36); MEAN PLATELET VOLUME 9.7 fL (7.4-10.4); PLATELET COUNT 226 K/uL (130-400); RED CELL DISTRIBUTION WIDTH CV 17.5 % (11.5-14.5); RED CELL DISTRIBUTION WIDTH SD 59.4 fL (36.4-46.3); WHITE BLOOD COUNT 14.41 K/uL (4.8-10.8)
[2017-10-10 08:21] LABS: ALBUMIN 2.1 gm/dl (3.4-5.0); CALCIUM 9.5 mg/dl (8.5-10.1); CREATININE 1.68 mg/dl (0.60-1.20); POTASSIUM 3.6 mmol/L (3.5-5.1)
[2017-10-10 08:24] LABS: TOTAL PROTEIN 5.9 gm/dl (6.4-8.2)
[2017-10-10] MEDS: DOXYCYCLINE IV 100 MG in DEXTROSE 5% 100ML 100 ML IV SCH ×2 (08:57→21:13)
[2017-10-10] MEDS: FLUTICASONE/SALMETEROL 250/50 (ADVAIR) 14 PUFF/1 INHALER INH SCH ×2 (08:57→21:05)
[2017-10-10] MEDS: FERROUS SULFATE 325 MG TAB PO SCH ×2 (08:57→21:07)
[2017-10-10] MEDS: PANTOprazole SOD 40 MG TAB PO SCH ×2 (08:58→21:08)
[2017-10-10] MEDS: POTASSIUM CHLORIDE 10 MEQ TABCR PO SCH ×2 (08:58→21:06)
[2017-10-10] MEDS: GABAPENTIN 100 MG CAP PO SCH (08:58)
[2017-10-10] MEDS: MAGNESIUM OXIDE 400 MG TAB PO SCH (08:59)
[2017-10-10] MEDS: PAROXETINE 20 MG TAB PO SCH (08:59)
[2017-10-10] MEDS: SUCRALFATE 1 GM/10 ML UDC PO SCH ×4 (09:00→21:06)
[2017-10-10] MEDS: METOPROLOL SUCC 25MG EXT REL TAB PO SCH ×2 (09:00→21:00)
[2017-10-10] MEDS: CHECK FENTANYL PATCH PLACEMENT SCH ×4 (09:01→23:36)
[2017-10-10] MEDS: LACTOBACILLUS ACIDOPHILUS (FLORANEX) TAB PO SCH ×3 (09:01→16:57)
[2017-10-10] MEDS: LIDODERM (LIDOCAINE) PATCH 5% TD SCH (09:02)
[2017-10-10] MEDS: OXYCODONE/ACETAMINOPHEN 5-325 TAB PO PRN ×2 (09:11→17:13)
[2017-10-10] MEDS ORDERED: VANCOMYCIN IV 1,000 MG in SODIUM CHLORIDE 0.9% 250ML 250 ML IV ONE (10:00)
[2017-10-10] MEDS: ACETAMINOPHEN 325 MG TAB PO PRN (14:09)
[2017-10-10] MEDS ORDERED: FUROSEMIDE 40 MG TAB PO ONE (17:15)
[2017-10-10] MEDS ORDERED: VANCOMYCIN CONSULT ACTIVE PRN (17:15)
--- NOTE | 2017-10-10 17:32 | Progress Note ---
Internal Med Progress Note Date of Service: Oct 10, 2017. Provider Documentation: SUBJECTIVE: Patient continues to spike temperature, last temperature 38.1 Given Tylenol Patient is currently on 4 L oxygen pulse oximetry 93% Appears to be very weak and tired No increased work of breathing noted OBJECTIVE: Vital Signs-as noted below Exam: General-frail appearing female ENT-dry oral mucosa Neck-no JVD, no carotid bruit, no thyromegaly noted Lungs-bibasilar rales , no wheeze Heart-regular Abdomen-soft nontender no organomegaly, Extremities-no rash, no deformity, no lower extremity, no calf tenderness. Neuro-, generalized weakness, no focal neurological deficit noted. Lab data as noted below. ASSESSMENT & PLAN: ACUTE HYPOXEMIC RESPIRATORY FAILURE : -Respiratory status remains poor -Possible due to aspiration pneumonia -Developed sudden onset of hypoxemia with increased work of breathing - stat portable chest x-ray showed progressive patchy air space opacity throughout the lungs more pronounced on the left side concern from pulmonary edema versus pneumonia -Required BiPAP -Was transferred to ICU -Lactic acid /pro calcitonin level was elevated >55 -Patient started empirically with IV vancomycin/IV Zosyn/IV doxycycline for atypical coverage -Ordered for blood and sputum culture-report pending -Patient continued to spike temperature -Had hypotensive episode yesterday evening ,required fluid bolus -Pro calcitonin level, lactic acid level has normalized -Pulmonology eval requested -Case discussed with on-call pulmonology -RENÉ Zosyn, will add imipenem for broader coverage, continue doxycycline -Repeat blood and urine culture ordered -Repeat chest x-ray ordered for today, will follow -Infectious disease consult requested -Patient's prognosis remains guarded SEVERE SEPSIS /DUE TO ASPIRATION PNEUMONIA : -Meets criteria for sepsis, leukocytosis tachycardia elevated lactic acid and pro calcitonin level -On empiric broad-spectrum antibiotic as above -Follow culture report -Speech pathology consulted to assess for dysphagia/aspiration risk ACUTE DIASTOLIC HEART FAILURE : given IV Lasix ECHO : Left ventricular cavity small LV hyperdynamic, EF more than 70% Patient is status post TAVR, normal gradient noted across the prosthetic valve Normal right ventricular systolic function No evidence of pulmonary hypertension PA systolic pressure is less than 36 mmHg -Patient started with Lasix 40 mg p.o. daily -Continue to monitor volume status HX OF DVT /SMALL PE NOTED IN CT CHEST : CT chest finding of small pulmonary embolism in the right lung Doubt that caused respiratory failure -Echo shows no evidence of pulmonary hypertension PA systolic pressure is less than 36 mmHg -Patient has significant bleeding risk while on anticoagulation -Was started with IV heparin, discontinued after drop in hemoglobin from 11-9 HX OF TAVR : -Status post bioprosthetic aortic valve replacement -Patient does not need to be on chronic anticoagulation ANEMIA /CONCERN FOR GI BLEED : Presented with symptomatic anemia/secondary to GI bleed: Status post 1 PRBC transfusion (presented with hemoglobin 7.7) post post transfusion hemoglobin is stable hb 12- 11.4 No active GI bleed noted. Appreciate input from GI team, Underwent EGD October 05, 2017, by Dr. Osman Shows: There was marked corkscrew appearance to the lower esophagus appeared to be a fixed defect-, rather than disordered peristalsis. The GE junction was at 30 cm. There was a mild ring at the GE junction. There is large hiatal hernia. The mucosa of the stomach were otherwise normal No source of upper GI bleeding noted Coumadin was DC'd DC IV heparin Hemoglobin 9.1 today - ACUTE KIDNEY INJURY /CKD STAGE 3: -iv Lasix was ordered for concern for CHF /bilateral pleural effusion / respiratory distress -Received contrast study for CT chest PE study -We will resume oral Lasix for persistent pulmonary congestion, bibasilar Rales -Monitor electrolytes -Avoid NSAId's DVT PROPHYLAXIS D/c IV heparin -for anemia/GI bleed SCD and teds CODE STATUS: Full code DISPOSITION To be determined -Patient's prognosis remains guarded-multiple comorbidities/persistent respiratory failure/severe sepsis -Patient will be continued on supportive care as outlined above -In any setting of worsening hypoxia respiratory failure ICU team should be notified -Patient may need mechanical intubation and bronchoscopic evaluation -Family members including son Mekhi -present at bedside Updated Vital Signs: Date Time Temp Pulse Resp B/P (MAP) Pulse Ox O2 Delivery O2 Flow Rate FiO2 10/10/17 16:00 Nasal Cannula 5.0 10/10/17 15:46 38.1 116 22 123/67 (85) 94 Nasal Cannula 4.0 10/10/17 15:21 102 18 92 Nasal Cannula 4.0 10/10/17 14:06 38.1 110 18 111/63 (79) 93 10/10/17 12:10 Nasal Cannula 5.0 10/10/17 11:43 36.6 110 22 126/66 (86) 92 10/10/17 08:00 Nasal Cannula 3.0 10/10/17 07:52 36.6 105 20 127/55 (79) 96 4.0 10/10/17 07:44 97 18 94 Nasal Cannula 4.0 10/10/17 04:00 Nasal Cannula 4.0 10/10/17 03:55 36.6 92 22 118/69 (85) 97 Nasal Cannula 4.0 10/10/17 03:30 99 20 144/70 (94) 93 Nasal Cannula 4.0 10/10/17 03:13 99 18 92 Nasal Cannula 4.0 10/10/17 02:59 36.4 93 20 139/67 (91) 96 Nasal Cannula 4.0 10/10/17 00:04 36.3 95 20 100/57 (71) 97 Nasal Cannula 4.0 10/10/17 00:00 Nasal Cannula 4.0 10/09/17 23:14 90 16 96 Nasal Cannula 5.0 10/09/17 22:12 98 106/62 (77) 10/09/17 20:56 96 95/54 (68) 10/09/17 20:00 36.7 106 86/46 (59) 21 Nasal Cannula 3.0 98 10/09/17 20:00 98 Nasal Cannula 5.0 10/09/17 20:00 116 88/52 (64) 10/09/17 18:58 91 18 93 Nasal Cannula 5.0 Lab Results: Results Past 24 Hours Test 10/10/17 03:05 10/10/17 07:15 10/10/17 07:30 10/10/17 07:35 Range/Units Bedside Glucose 152 70-90 mg/dl White Blood Count 14.41 4.8-10.8 K/uL Red Blood Count 3.01 4.2-5.4 M/uL Hemoglobin 9.1 12.0-16.0 g/dL Hematocrit 27.9 37-47 % Mean Corpuscular Volume 92.7 80-100 fL Mean Corpuscular Hemoglobin 30.2 25-34 pg Mean Corpuscular Hemoglobin Concent 32.6 32-36 g/dl RDW Standard Deviation 59.4 36.4-46.3 fL RDW Coefficient of Variation 17.5 11.5-14.5 % Platelet Count 226 130-400 K/uL Mean Platelet Volume 9.7 7.4-10.4 fL Sodium Level 136 136-145 mmol/L Potassium Level 3.6 3.5-5.1 mmol/L Chloride Level 102 98-107 mmol/L Carbon Dioxide Level 27 21-32 mmol/L Anion Gap 7.0 3-11 mmol/L Blood Urea Nitrogen 36 7-18 mg/dl Creatinine 1.68 0.60-1.20 mg/dl Est Creatinine Clear Calc Drug Dose 21.4 ml/min Estimated GFR () 32.0 Estimated GFR (Non- 27.6 BUN/Creatinine Ratio 21.6 10-20 Random Glucose 100 70-99 mg/dl Calcium Level 9.5 8.5-10.1 mg/dl Total Bilirubin 0.3 0.2-1 mg/dl Direct Bilirubin 0.1 0-0.2 mg/dl Aspartate Amino Transf (AST/SGOT) 26 15-37 U/L Alanine Aminotransferase (ALT/SGPT) 14 12-78 U/L Alkaline Phosphatase 95 45-117 U/L Total Protein 5.9 6.4-8.2 gm/dl Albumin 2.1 3.4-5.0 gm/dl Globulin 3.8 2.5-4.0 gm/dl Albumin/Globulin Ratio 0.5 0.9-2 Procalcitonin 33.49 0-0.5 ng/ml Random Vancomycin Level 19.0 mcg/ml Lactic Acid Level 1.6 0.4-2.0 mmol/L Microbiology Results 10/10/17 Blood Culture, Received Pending 10/10/17 Blood Culture, Received Pending 10/10/17 Urine Culture, Received Pending
[2017-10-10] MEDS ORDERED: IMIPENEM/CILASTATIN CONSULT ACTIVE PRN (17:45)
--- NOTE | 2017-10-10 17:51 | DIAGNOSTIC IMAGING REPORT ---
CHEST ONE VIEW PORTABLE HISTORY: 82 years-old Female SOB /pneumonia acute shortness of breath COMPARISON: Chest radiograph 10/09/2017, CTA chest 10/08/2017 TECHNIQUE: Portable AP view of the chest FINDINGS: Cardiac silhouette is again mildly enlarged. Prosthetic graft of the ascending thoracic aorta. Calcifications of the aortic arch and trigger bronchial tree are noted. There is no pneumothorax. Trace bilateral pleural effusions with bibasilar and left perihilar consolidative opacities appear generally unchanged. Right-sided PICC has been placed with distal tip terminating in the expected region of the right atrium. No postprocedural pneumothorax. Healed remote left-sided rib fractures. IMPRESSION: 1. Cardiomegaly without overt pulmonary edema. 2. Unchanged bibasilar and left perihilar airspace opacities suggest ongoing pneumonia. 3. Probable trace pleural effusions. The above report was generated using voice recognition software. It may contain grammatical, syntax or spelling errors. Electronically signed by: Joshua Feng M.D. 10/10/2017 5:49 PM Dictated Date/Time: 10/10/2017 5:47 PM
[2017-10-10] MEDS ORDERED: ACETAMINOPHEN IV 100 ML IV PRN (18:15)
[2017-10-10] MEDS: IMIPENEM/CILASTATIN IV 200 MG in DEXTROSE 5% 100ML 100 ML IV SCH ×2 (18:19→23:35)
[2017-10-10 19:30] LABS: INFLUENZA B ANTIGEN Neg for Influ B (NEG)
[2017-10-10 19:38] LABS: INFLUENZA A PCR Neg for Influ A (NEG); INFLUENZA B PCR Neg for Influ B (NEG)
[2017-10-10] MEDS ORDERED: VANCOMYCIN IV 1,000 MG in SODIUM CHLORIDE 0.9% 250ML 250 ML IV SCH (21:00)
[2017-10-10] MEDS: RANITIDINE HCL 150 MG TAB PO SCH (21:08)
[2017-10-10] MEDS: MIRTAZAPINE SOLTAB 15 MG PO SCH (21:09)
[2017-10-11] VITALS (16 sets, daily range): BP systolic 107–162; BP diastolic 58–82; PULSE 83–112; TEMP 36.5–37.6; O2SAT 92–99
[2017-10-11] MEDS: LEVALBUTEROL 1.25MG/0.5ML NEB INH SCH ×6 (03:21→23:21)
[2017-10-11] MEDS: IPRATROPIUM BROMIDE NEB SOLN 0.02% 2.5 ML VIAL INH SCH ×6 (03:21→23:21)
[2017-10-11] MEDS: IMIPENEM/CILASTATIN IV 200 MG in DEXTROSE 5% 100ML 100 ML IV SCH ×4 (05:41→23:31)
[2017-10-11 07:01] LABS: HEMOGLOBIN 9.4 g/dL (12.0-16.0); MEAN CELL VOLUME 93.8 fL (80-100); MEAN CORPUSCULAR HEMOGLOBIN 29.4 pg (25-34); MEAN CORPUSCULAR HGB CONC 31.3 g/dl (32-36); MEAN PLATELET VOLUME 9.4 fL (7.4-10.4); PLATELET COUNT 238 K/uL (130-400); RED CELL DISTRIBUTION WIDTH CV 17.2 % (11.5-14.5); RED CELL DISTRIBUTION WIDTH SD 59.4 fL (36.4-46.3); WHITE BLOOD COUNT 16.37 K/uL (4.8-10.8)
[2017-10-11 07:44] LABS: ALBUMIN 2.1 gm/dl (3.4-5.0); CALCIUM 9.2 mg/dl (8.5-10.1); CREATININE 1.3 mg/dl (0.60-1.20); POTASSIUM 3.7 mmol/L (3.5-5.1)
[2017-10-11] MEDS: ACETYLCYSTEINE 20% INHAL SOLN ***DISPENSED BY RESP. INH SCH ×3 (07:45→23:21)
[2017-10-11 07:47] LABS: TOTAL PROTEIN 6.1 gm/dl (6.4-8.2)
[2017-10-11] MEDS: OXYCODONE/ACETAMINOPHEN 5-325 TAB PO PRN ×3 (07:56→19:47)
[2017-10-11] MEDS: LIDODERM (LIDOCAINE) PATCH 5% TD SCH (07:57)
[2017-10-11] MEDS: FLUTICASONE/SALMETEROL 250/50 (ADVAIR) 14 PUFF/1 INHALER INH SCH ×2 (07:57→19:48)
[2017-10-11] MEDS: POTASSIUM CHLORIDE 10 MEQ TABCR PO SCH ×2 (07:57→20:07)
[2017-10-11] MEDS: GABAPENTIN 100 MG CAP PO SCH (07:58)
[2017-10-11] MEDS: PANTOprazole SOD 40 MG TAB PO SCH ×2 (07:58→20:02)
[2017-10-11] MEDS: MAGNESIUM OXIDE 400 MG TAB PO SCH (07:58)
[2017-10-11] MEDS: CHECK FENTANYL PATCH PLACEMENT SCH ×3 (07:59→23:25)
[2017-10-11] MEDS: PAROXETINE 20 MG TAB PO SCH (07:59)
[2017-10-11] MEDS: LACTOBACILLUS ACIDOPHILUS (FLORANEX) TAB PO SCH ×3 (08:00→16:55)
[2017-10-11] MEDS: SUCRALFATE 1 GM/10 ML UDC PO SCH ×4 (08:00→20:05)
[2017-10-11] MEDS: FUROSEMIDE 40 MG TAB PO SCH (08:00)
[2017-10-11] MEDS: FERROUS SULFATE 325 MG TAB PO SCH ×2 (08:01→20:04)
[2017-10-11] MEDS: METOPROLOL SUCC 25MG EXT REL TAB PO SCH ×2 (08:02→19:49)
--- NOTE | 2017-10-11 08:21 | Progress Note ---
Progress Note Date of Service Oct 11, 2017. Progress Note ID Consult Dictated # [id number] A/P: 1. PNA 2. Leukocytosis -Continue abx, sputum culture pending, blood cultures negative to date -Will follow, thank you
[2017-10-11] MEDS: DOXYCYCLINE IV 100 MG in DEXTROSE 5% 100ML 100 ML IV SCH ×2 (08:58→19:48)
[2017-10-11] MEDS ORDERED: MoRPHine SULFATE 2 MG/ML CARP IV STA (09:19)
--- NOTE | 2017-10-11 09:39 | INFECT. DISEASE CONSULTATION ---
DATE OF CONSULTATION: 10/11/2017 HISTORY OF PRESENT ILLNESS: This is an 82-year-old female who was admitted to the hospital secondary to anemia. She does have a history of chronic PE on Coumadin, but also has GI bleed. Her hemoglobin was 7. She did undergo endoscopy which was unremarkable earlier in her admission. Her UA initially was negative on the , a flu swab was obtained just on the and this is negative. She was febrile up until the 10 of October where she had a fever of 38.1. She did undergo extensive workup for fever and was started on empiric antibiotics. Initially, she was on vancomycin and Zosyn and subsequently was changed to imipenem and doxycycline. She did have a C. diff done early on in her admission which was unremarkable. Her blood cultures on the so far are negative. She has had increasing leukocytosis since the 08 of October and yesterday was 14.4. Her creatinine is mildly elevated at 1.6. A procalcitonin was also elevated at 33. She did undergo a CAT scan of the chest on the which showed right-sided small PEs and consolidation of the left lobe. A sputum culture is pending, but has not been obtained. She appears to be tolerating antibiotic. She is currently afebrile. I am unable to obtain review of systems from the patient. PAST MEDICAL HISTORY: Significant for anemia, aortic stenosis, basal cell carcinoma, hypertension, coronary artery disease, CHF, chronic kidney disease, depression, diverticulosis, high cholesterol, vitamin V deficiency, gastroparesis, GERD, hiatal hernia, endometrial cancer, history of GI bleed, chronic and recurrent PE, irritable bowel syndrome, obstructive lung disease, osteoporosis, polyarthritis and temporal arteritis. PAST SURGICAL HISTORY: Significant for a cystoscopy, left knee surgery, aortic valve replacement, cataract surgery, coronary stenting, and hysterectomy. FAMILY HISTORY: Noncontributory. SOCIAL HISTORY: Negative for tobacco use, alcohol use or drug use. ALLERGIES: SHE HAS ALLERGIES TO OMNICEF, CLONAZEPAM, LEVAQUIN, SULFASALAZINE, AND REGLAN. MEDICATIONS: Include fentanyl patch, Lasix, Tylenol, imipenem, subQ heparin, Atrovent, Xopenex, Mucomyst, doxycycline, Senokot, prednisone, Protonix, Lidoderm patch, Remeron, Zantac, iron, Advair, Neurontin, magnesium, Toprol-XL, Paxil, potassium, Floranex, Ativan, Percocet, Maalox, milk of magnesia and MiraLax. PHYSICAL EXAMINATION: VITAL SIGNS: She is afebrile, pulse 103, respiratory rate 20, blood pressure is 153/82, and oxygen saturation is 93-99% on 4 liters nasal cannula. GENERAL: She is lethargic. She does not answer questions. HEENT: Mucous membranes are dry. HEART: I do not auscultate a murmur. LUNGS: Sounds are decreased bilaterally. ABDOMEN: Nondistended. EXTREMITIES: There is no edema. LABORATORY STUDIES: CBC today reveals a white blood cell count of 16.3, hemoglobin 9.4, hematocrit 30 and platelets are 238. Chemistry panel reveals a sodium of 138, potassium 3.7, chloride 105, bicarb 25, BUN 30, creatinine 1.3, and glucose is 105. LFTs are within normal limits. Procalcitonin is decreased to 18. A vancomycin level today is 19. Flu swab on the was negative. Stool for blood was positive on the . A C. diff was negative on the . A urine culture was negative on the . Blood cultures from the are negative x4 sets. Blood cultures were repeated on the and are pending. A urine culture repeated on the is pending as well. UA on the was unremarkable. IMAGING DATA: A chest x-ray done yesterday shows airspace opacities. A CT of the chest is as above. Echocardiogram was performed on the . There is no evidence of vegetation. ASSESSMENT AND PLAN: Pneumonia. She will remain on current empiric antibiotics. A sputum culture can be obtained. This would be helpful. Blood cultures are pending and we will follow the results. Thank you for this consultation.
[2017-10-11] MEDS: VANCOMYCIN IV 1,000 MG in SODIUM CHLORIDE 0.9% 250ML 250 ML IV SCH (10:29)
--- NOTE | 2017-10-11 17:00 | Pharmacy Progress Note ---
Pharmacy Abx Dose Progress Nt Date of Service Oct 11, 2017. Pharmacy Dosing Scope The patient is currently receiving the following antimicrobial agents per Pharmacy consult: -Vancomycin IV based on random levels -Primaxin 200 mg IV every 6 hours Objective Height (Feet): 5 Height (Inches): 1.00 Weight (Kilograms): 64.700 Vital Signs (Past 12Hrs) Vital Signs Past 12 Hours Date Time Temp Pulse Resp B/P (MAP) Pulse Ox O2 Delivery O2 Flow Rate FiO2 10/11/17 16:11 37.4 103 20 107/58 (74) 93 Nasal Cannula 4.0 10/11/17 15:37 105 18 93 Nasal Cannula 4.0 10/11/17 12:00 Nasal Cannula 4.0 10/11/17 11:40 37.6 112 22 110/64 (79) 93 5.0 10/11/17 11:01 101 18 93 Nasal Cannula 4.0 10/11/17 08:00 Nasal Cannula 4.0 10/11/17 07:55 36.8 103 20 153/82 (105) 93 10/11/17 07:48 103 20 94 Nasal Cannula 4.0 Lab Results (24Hrs) Laboratory Tests (24 Hours) Test 10/11/17 06:46 Lactic Acid Level 1.5 mmol/L (0.4-2.0) Procalcitonin 18.62 ng/ml (0-0.5) H White Blood Count 16.37 K/uL (4.8-10.8) H Micro Results Date/Time Source Procedure Growth Status 10/10/17 15:00 Blood Blood Culture Pending Received 10/10/17 14:42 Blood Blood Culture Pending Received 10/08/17 14:31 Blood Blood Culture - Preliminary NO GROWTH TO DATE. Resulted 10/08/17 14:30 Blood Blood Culture - Preliminary NO GROWTH TO DATE. Resulted 10/08/17 06:50 Blood Blood Culture - Preliminary NO GROWTH TO DATE. Resulted 10/08/17 06:38 Blood Blood Culture - Preliminary NO GROWTH TO DATE. Resulted 10/08/17 14:45 Nasal MRSA DNA Surveillance Screen - Final Specimen Positive for MRSA by DNA Probe Complete 10/02/17 20:30 Stool C.difficile Toxin B Gene (PCR) - Final No C. difficile toxin B gene detected Complete 10/10/17 14:49 Urine,Catheterized Urine Culture - Preliminary NO GROWTH - LESS THAN 1,000 COLONIES/... Resulted 10/04/17 00:00 Urine , Clean Catch Urine Culture - Final THREE TYPES OF ORGANISMS PRESENT, ALL... Complete Risk Factors for Resistance * Hospitalization for 48 hours or more within the past 90 days * Current hospitalization > 5 days * History of infection with a multidrug-resistant organism: MRSA in urine cx in the past * Antimicrobial use within the last 90 days (08/2017: ampicillin, vancomycin, and cefepime) Assessment & Plan Assessment 82 year old female admitted for anemia secondary to GIB and currently on antibiotic therapy for severe sepsis secondary to aspiration pneumonia. * Day # 4 of antimicrobial therapy. Zosyn was changed to Primaxin last evening. * Renal function improving, procalcitonin trending downward but remains elevated (55.3 -> 33.5 ->18.6) Plan Vancomycin IV * Random level of 19.5 mcg/mL is therapeutic * Will trial dose of 1000 mg IV every 24 hours * Goal trough level for pnx : 15 to 20 mcg/mL * Trough level ordered for: 10/13/17 Primaxin * Target dose of 500 mg IV every 6 hours reduced to 200 mg for CrCL 15-29 ml/min Also on doxycycline 100 mg IV every 12 hours Pharmacy will continue to follow and will adjust dose/frequency as necessary. Thank you.
--- NOTE | 2017-10-11 18:46 | Progress Note ---
Internal Med Progress Note Date of Service: Oct 11, 2017. Provider Documentation: SUBJECTIVE: Has been afebrile since last night Continue to have moist cough On 4 L oxygen via nasal cannula pulse ox maintained from 90% patient continues to be dyspneic Very poor appetite In significant distress for left shoulder and left knee arthritic pain OBJECTIVE: Vital Signs-as noted below Exam: General-frail appearing female, anxious, in distress for painful left shoulder, tearful ENT-dry oral mucosa Neck-no JVD, no carotid bruit, no thyromegaly noted Lungs-coarse breath sound, CARDIAC: No chest pain, sweating, shortness of breath , leg swelling, or irregular heart beat. Bibasilar rales , no wheeze Heart-regular Abdomen-soft nontender no organomegaly, Extremities-no rash, no deformity, no lower extremity, no calf tenderness. Neuro-, generalized weakness, anxious no focal neurological deficit noted. Lab data as noted below. ASSESSMENT & PLAN: ACUTE HYPOXEMIC RESPIRATORY FAILURE : -Due to combination of aspiration pneumonia/CHF with diastolic dysfunction -Very slow improvement -Remains hypoxic , shortness of breath, significant cough -Developed sudden onset of hypoxemia with increased work of breathing - stat portable chest x-ray showed progressive patchy air space opacity throughout the lungs more pronounced on the left side concern from pulmonary edema versus pneumonia -Was transferred to ICU -Lactic acid /pro calcitonin level was elevated >55 -Respiratory status improved after BiPAP treatment -Patient was started empirically with IV vancomycin/IV Zosyn/IV doxycycline for atypical coverage -Ordered for blood and sputum culture-no growth -Patient has a positive hypotension-required fluid bolus/persistent high fever yesterday 10/10/2017 -Zosyn discontinued/added for broader coverage/continue doxycycline and IV vancomycin -Repeat blood and urine culture ordered for intermittent fever ID requested -Appreciate input from infectious disease and pulmonology -Chest x-ray on 10/10/2017 1. Cardiomegaly without overt pulmonary edema. 2. Unchanged bibasilar and left perihilar airspace opacities suggest ongoing pneumonia. 3. Probable trace pleural effusions. -Patient's prognosis remains guarded SEVERE SEPSIS /DUE TO ASPIRATION PNEUMONIA : -Meets criteria for sepsis, leukocytosis tachycardia elevated lactic acid and pro calcitonin level -On empiric broad-spectrum antibiotic as above -Follow culture report/ID consulted -Speech pathology consulted to assess for dysphagia/aspiration risk ACUTE DIASTOLIC HEART FAILURE : Volume status remained stable given IV Lasix -for acute respiratory failure/pulmonary congestion ECHO : Left ventricular cavity small LV hyperdynamic, EF more than 70% Patient is status post TAVR, normal gradient noted across the prosthetic valve Normal right ventricular systolic function No evidence of pulmonary hypertension PA systolic pressure is less than 36 mmHg -Patient started with Lasix 40 mg p.o. daily -Continue to monitor volume status -Continue Marcelo catheter for accurate measuring input and output HX OF DVT /SMALL PE NOTED IN CT CHEST : CT chest finding of small pulmonary embolism in the right lung Doubt that caused respiratory failure -Echo shows no evidence of pulmonary hypertension PA systolic pressure is less than 36 mmHg -Patient has significant bleeding risk while on anticoagulation -Was started with IV heparin, discontinued after drop in hemoglobin from 11-9 HX OF TAVR : -Status post bioprosthetic aortic valve replacement -Patient does not need to be on chronic anticoagulation ANEMIA /CONCERN FOR GI BLEED : Presented with symptomatic anemia/secondary to GI bleed: Status post 1 PRBC transfusion (presented with hemoglobin 7.7) post post transfusion hemoglobin is stable hb 12- 11.4 No active GI bleed noted. Appreciate input from GI team, Underwent EGD October 05, 2017, by Dr. Osman Shows: There was marked corkscrew appearance to the lower esophagus appeared to be a fixed defect-, rather than disordered peristalsis. The GE junction was at 30 cm. There was a mild ring at the GE junction. There is large hiatal hernia. The mucosa of the stomach were otherwise normal No source of upper GI bleeding noted Coumadin was DC'd DC IV heparin Monitor H&H - ACUTE KIDNEY INJURY /CKD STAGE 3: -Creatinine continues to improve -Due to diuresis: iv Lasix was ordered for concern for CHF /bilateral pleural effusion /respiratory distress -Received contrast study for CT chest PE study -We will resume oral Lasix for persistent pulmonary congestion, bibasilar Rales -Monitor electrolytes -Avoid NSAId's DVT PROPHYLAXIS D/c IV heparin -for anemia/GI bleed SCD and teds CODE STATUS: Full code DISPOSITION To be determined -Patient's prognosis remains guarded-multiple comorbidities/persistent respiratory failure/severe sepsis Continue to monitor in telemetry PT OT evaluation Possibly will need rehab Social service consult for discharge planning Medicine follow-up with Dr. Yoly Block at [facility] Vital Signs: Date Time Temp Pulse Resp B/P (MAP) Pulse Ox O2 Delivery O2 Flow Rate FiO2 10/11/17 20:00 93 Nasal Cannula 4.0 10/11/17 19:27 37.2 97 22 121/62 (81) 98 Nasal Cannula 4.0 10/11/17 19:26 98 18 98 Nasal Cannula 4.0 10/11/17 16:11 37.4 103 20 107/58 (74) 93 Nasal Cannula 4.0 10/11/17 16:00 Nasal Cannula 4.0 10/11/17 15:37 105 18 93 Nasal Cannula 4.0 10/11/17 12:00 Nasal Cannula 4.0 10/11/17 11:40 37.6 112 22 110/64 (79) 93 5.0 10/11/17 11:01 101 18 93 Nasal Cannula 4.0 10/11/17 08:00 Nasal Cannula 4.0 10/11/17 07:55 36.8 103 20 153/82 (105) 93 10/11/17 07:48 103 20 94 Nasal Cannula 4.0 10/11/17 04:00 96 Nasal Cannula 4.0 10/11/17 03:22 89 18 96 Nasal Cannula 4.0 10/11/17 03:20 36.5 97 22 132/81 (98) 99 Nasal Cannula 4.0 10/11/17 00:20 36.6 105 22 162/80 (107) 92 Nasal Cannula 4.0 10/10/17 23:59 92 Nasal Cannula 4.0 Lab Results: Results Past 24 Hours Test 10/11/17 06:46 Range/Units White Blood Count 16.37 4.8-10.8 K/uL Red Blood Count 3.20 4.2-5.4 M/uL Hemoglobin 9.4 12.0-16.0 g/dL Hematocrit 30.0 37-47 % Mean Corpuscular Volume 93.8 80-100 fL Mean Corpuscular Hemoglobin 29.4 25-34 pg Mean Corpuscular Hemoglobin Concent 31.3 32-36 g/dl RDW Standard Deviation 59.4 36.4-46.3 fL RDW Coefficient of Variation 17.2 11.5-14.5 % Platelet Count 238 130-400 K/uL Mean Platelet Volume 9.4 7.4-10.4 fL Sodium Level 138 136-145 mmol/L Potassium Level 3.7 3.5-5.1 mmol/L Chloride Level 105 98-107 mmol/L Carbon Dioxide Level 25 21-32 mmol/L Anion Gap 8.0 3-11 mmol/L Blood Urea Nitrogen 30 7-18 mg/dl Creatinine 1.30 0.60-1.20 mg/dl Est Creatinine Clear Calc Drug Dose 27.7 ml/min Estimated GFR () 43.6 Estimated GFR (Non- 37.6 BUN/Creatinine Ratio 23.3 10-20 Random Glucose 105 70-99 mg/dl Lactic Acid Level 1.5 0.4-2.0 mmol/L Calcium Level 9.2 8.5-10.1 mg/dl Total Bilirubin 0.4 0.2-1 mg/dl Direct Bilirubin 0.1 0-0.2 mg/dl Aspartate Amino Transf (AST/SGOT) 21 15-37 U/L Alanine Aminotransferase (ALT/SGPT) 16 12-78 U/L Alkaline Phosphatase 109 45-117 U/L Total Protein 6.1 6.4-8.2 gm/dl Albumin 2.1 3.4-5.0 gm/dl Globulin 4.0 2.5-4.0 gm/dl Albumin/Globulin Ratio 0.5 0.9-2 Procalcitonin 18.62 0-0.5 ng/ml Random Vancomycin Level 19.5 mcg/ml Microbiology Results 10/11/17 Gram Stain, Received Pending 10/11/17 Sputum Culture, Received Pending
[2017-10-11] MEDS: MIRTAZAPINE SOLTAB 15 MG PO SCH (20:07)
[2017-10-11] MEDS: RANITIDINE HCL 150 MG TAB PO SCH (20:08)
[2017-10-11] MEDS: LORAZEPAM 0.5 MG TAB PO PRN (20:11)
--- NOTE | 2017-10-11 20:29 | Pulmonary Consultation ---
History General Date of Service: Oct 11, 2017. Stated Complaint: Shortness of breath HPI The patient is a 82 year old female with h/o PE, hiatal hernia, admitted for GI bleeding, s/p EGD (no clear source found), was transfused initially. Course was complicated by pneumonia with lethargy, was on BIPAP in the ICU for 1 day. Mental status improved, was transferred to floor, but she continues to cough, have shortness of breath. She is however awake, in chair, has a productive cough. She is receiving vest therapy, Mucomyst On Primaxin, Doxycycline, Vancomycin Review of Systems Per HPI Past Medical History Past Medical History: Diastolic HF Aortic stenosis, s/p TAVR COPD Temporal arteritis Anemia H/o GI bleeding H/o epistaxis CKD GERD HTN Factor V deficiency Past Medical History: deep vein thrombosis, depression, GI bleed, hypercoagulability, pulmonary embolism Family History Cancer Diabetes mellitus FH: cardiovascular disease MOTHER Gallbladder disease Hypertension Parent: Cancer, Diabetes, Heart Disease, Vascular Disease Social History Hx Tobacco Use In Past Year?: No Smoking Status: Never Smoker Alcohol: never Drug Use: none Marital status: Housing status: lives alone Occupational Status: retired Immunizations History of Influenza Vaccine: Yes Influenza Vaccine Date: Apr 18, 2016 History of Tetanus Vaccine?: Yes Tetanus Immunization Date: Nov 27, 2008 History of Pneumococcal: Yes Pneumococcal Date: Apr 21, 2016 History of Hepatitis B Vaccine: Yes History of MDRO History of MDRO: Yes Type of MDRO: MRSA Allergies Coded Allergies: Cefdinir (Verified Allergy, Mild, RASH-HAS HAD ROCEPHIN,CEFEPIME MANY TIMES, 09/21/17) Clonazepam (Verified Allergy, Unknown, ., 09/21/17) Levofloxacin (Verified Allergy, Unknown, unknown, 09/21/17) Sulfasalazine (Verified Allergy, Unknown, ., 09/21/17) Metoclopramide (Verified Adverse Reaction, Intermediate, TREMORS, 09/21/17) Current Medications Reported Home Medications Medications Dose Route/Sig Max Daily Dose Days Date Category Dose Instructions Lasix (Furosemide) 40 Mg Tab 40 Mg PO DAILY 10/02/17 Reported Take 40mg daily. Take extra 1/2 tab for fluid accumulation or weight gain. Zantac (Ranitidine HCl) 300 Mg Tab 300 Mg PO HS 10/02/17 Reported Prednisone 5 Mg Tab 5 Mg PO DAILY 10/02/17 Reported Coumadin (Warfarin Sodium) 3 Mg Tab 3 Mg PO DAILY 10/02/17 Reported Per coag clinic: 2 mg daily Neurontin (Gabapentin) 100 Mg Cap 100 Mg PO DAILY 09/21/17 Reported Miralax (Polyethylene) 17 Gm Pow 17 Gm PO DAILY PRN 08/31/17 Rx Floranex (Lactobacillus Acidophilus) 1 Tab Tab 1 Tab PO TIDM 08/31/17 Rx Fentanyl 25 Mcg Tdsy 25 Mcg TOP [id number] 08/22/17 Reported Senokot (Senna) 8.6 Mg Tab 1 Tab PO BID 08/13/17 Reported Colace (Docusate Sodium) 100 Mg Cap 1 Cap PO BID 30 05/24/17 Rx Remeron Soltab (Mirtazapine) 15 Mg Soltab 15 Mg PO HS 05/07/17 Reported Ferrous Sulfate 325 Mg Tab 325 Mg PO BID 05/07/17 Reported Ascorbic Acid 250 Mg Tab 250 Mg PO DAILY 05/07/17 Reported Protonix (Pantoprazole Sodium) 40 Mg Tab 40 Mg PO DAILY 02/19/17 Reported Acetaminophen 325 Mg Tab 650 Mg PO PRN 12/29/16 Reported Oxygen Gas 3 Liters NA UD 12/10/16 Reported 2 liters HS and PRN Percocet 5MG/325MG (Oxycodone/Acetaminophen) Tab 1 Tablet PO Q8H PRN 10/17/16 Reported Zofran (Ondansetron HCl) 4 Mg Tab 4 Mg PO Q6 PRN 10/17/16 Reported Proventil 0.083% 2.5MG/3ML (Albuterol Sulf) 2.5 Mg/3 Ml Nebu 2.5 Mg INH QID PRN 10/17/16 Reported Mag-Ox (Magnesium Oxide) 400 Mg Tab 400 Mg PO DAILY 08/29/16 Reported Potassium Chloride Er (Potassium Chloride) 10 Meq Cap 10 Meq PO BID 90 01/08/16 Reported Advair Diskus 250/50 60 Dose (Fluticasone Prop/Salmeterol) 1 Ea Aerp 1 Puff INH BID 07/31/15 Reported PT ONLY USES NEEDED Paroxetine HCl (Paroxetine) 40 Mg Tab 40 Mg PO DAILY 07/31/15 Reported Metoprolol Succinate ER (Metoprolol Succinate) 25 Mg Tabcr 12.5 Mg PO BID 02/04/15 Reported Lorazepam 0.5 Mg Tab 0.5 Mg PO HS PRN 12/07/12 Reported Multivitamin (Multiple Vitamin) 1 Tab Tab 0.5 Tablet PO DAILY 30 12/07/12 Reported take with supper Physical Physical Exam Vital Signs: Date Time Temp Pulse Resp B/P (MAP) Pulse Ox O2 Delivery O2 Flow Rate FiO2 10/11/17 19:27 37.2 97 22 121/62 (81) 98 Nasal Cannula 4.0 10/11/17 19:26 98 18 98 Nasal Cannula 4.0 10/11/17 16:11 37.4 103 20 107/58 (74) 93 Nasal Cannula 4.0 10/11/17 16:00 Nasal Cannula 4.0 10/11/17 15:37 105 18 93 Nasal Cannula 4.0 10/11/17 12:00 Nasal Cannula 4.0 10/11/17 11:40 37.6 112 22 110/64 (79) 93 5.0 10/11/17 11:01 101 18 93 Nasal Cannula 4.0 10/11/17 08:00 Nasal Cannula 4.0 10/11/17 07:55 36.8 103 20 153/82 (105) 93 10/11/17 07:48 103 20 94 Nasal Cannula 4.0 10/11/17 04:00 96 Nasal Cannula 4.0 10/11/17 03:22 89 18 96 Nasal Cannula 4.0 10/11/17 03:20 36.5 97 22 132/81 (98) 99 Nasal Cannula 4.0 10/11/17 00:20 36.6 105 22 162/80 (107) 92 Nasal Cannula 4.0 10/10/17 23:59 92 Nasal Cannula 4.0 10/10/17 23:04 87 18 95 Nasal Cannula 4.0 General: Awake, alert, NAD Lungs: Bilateral diffuse rhonchi CVS:S1S2 reg Abd: soft, NT Ext: No edema [employer] SAL[employer]: No focal deficit, awake and alert Diagnostics Labs Results Past 24 Hours Test 10/11/17 06:46 Range/Units White Blood Count 16.37 4.8-10.8 K/uL Red Blood Count 3.20 4.2-5.4 M/uL Hemoglobin 9.4 12.0-16.0 g/dL Hematocrit 30.0 37-47 % Mean Corpuscular Volume 93.8 80-100 fL Mean Corpuscular Hemoglobin 29.4 25-34 pg Mean Corpuscular Hemoglobin Concent 31.3 32-36 g/dl RDW Standard Deviation 59.4 36.4-46.3 fL RDW Coefficient of Variation 17.2 11.5-14.5 % Platelet Count 238 130-400 K/uL Mean Platelet Volume 9.4 7.4-10.4 fL Sodium Level 138 136-145 mmol/L Potassium Level 3.7 3.5-5.1 mmol/L Chloride Level 105 98-107 mmol/L Carbon Dioxide Level 25 21-32 mmol/L Anion Gap 8.0 3-11 mmol/L Blood Urea Nitrogen 30 7-18 mg/dl Creatinine 1.30 0.60-1.20 mg/dl Est Creatinine Clear Calc Drug Dose 27.7 ml/min Estimated GFR () 43.6 Estimated GFR (Non- 37.6 BUN/Creatinine Ratio 23.3 10-20 Random Glucose 105 70-99 mg/dl Lactic Acid Level 1.5 0.4-2.0 mmol/L Calcium Level 9.2 8.5-10.1 mg/dl Total Bilirubin 0.4 0.2-1 mg/dl Direct Bilirubin 0.1 0-0.2 mg/dl Aspartate Amino Transf (AST/SGOT) 21 15-37 U/L Alanine Aminotransferase (ALT/SGPT) 16 12-78 U/L Alkaline Phosphatase 109 45-117 U/L Total Protein 6.1 6.4-8.2 gm/dl Albumin 2.1 3.4-5.0 gm/dl Globulin 4.0 2.5-4.0 gm/dl Albumin/Globulin Ratio 0.5 0.9-2 Procalcitonin 18.62 0-0.5 ng/ml Random Vancomycin Level 19.5 mcg/ml Microbiology Results 10/11/17 Gram Stain, Received Pending 10/11/17 Sputum Culture, Received Pending Diagnostic Radiology CXR yesterday: 1. Cardiomegaly without overt pulmonary edema. 2. Unchanged bibasilar and left perihilar airspace opacities suggest ongoing pneumonia. 3. Probable trace pleural effusions. Impression Assessment and Plan Acute respiratory failure secondary to bilateral pneumonia Chronic PE Aortic stenosis, s/p TAVR Diastolic HF on home O2 COPD CKD GI bleeding Plan: Continue mucolytics, add Mucinex BIPAP as needed, however, it should only be temporary, for a matter of hours given significant secretions Continue broad spectrum Abx Continue on bronchodilators Prednisone maintenance The PE is quite small, has negative LE doppler. H/H stabilized. Would resume anticoagulation in couple of days though and monitor Will follow up with you Advanced Directives Living Will: attached to the chart
[2017-10-11] MEDS: GUAIFENESIN 600 MG TABCR PO SCH (20:51)
[2017-10-12] VITALS (9 sets, daily range): BP systolic 124–166; BP diastolic 70–96; PULSE 82–96; TEMP 36.6–37.7; O2SAT 91–99
[2017-10-12] MEDS: LEVALBUTEROL 1.25MG/0.5ML NEB INH SCH ×5 (03:53→20:00)
[2017-10-12] MEDS: IPRATROPIUM BROMIDE NEB SOLN 0.02% 2.5 ML VIAL INH SCH ×5 (03:53→20:00)
[2017-10-12 04:33] LABS: HEMATOCRIT 28.7 % (37-47); MEAN CELL VOLUME 94.4 fL (80-100); MEAN CORPUSCULAR HEMOGLOBIN 29.6 pg (25-34); MEAN CORPUSCULAR HGB CONC 31.4 g/dl (32-36); MEAN PLATELET VOLUME 9.3 fL (7.4-10.4); PLATELET COUNT 255 K/uL (130-400); RED CELL DISTRIBUTION WIDTH CV 17.3 % (11.5-14.5); RED CELL DISTRIBUTION WIDTH SD 59.7 fL (36.4-46.3); WHITE BLOOD COUNT 11.62 K/uL (4.8-10.8)
[2017-10-12 04:52] LABS: ALBUMIN 2.1 gm/dl (3.4-5.0); CALCIUM 9.2 mg/dl (8.5-10.1); CREATININE 1.12 mg/dl (0.60-1.20); POTASSIUM 4.1 mmol/L (3.5-5.1)
[2017-10-12 04:55] LABS: TOTAL PROTEIN 5.9 gm/dl (6.4-8.2)
[2017-10-12] MEDS: IMIPENEM/CILASTATIN IV 200 MG in DEXTROSE 5% 100ML 100 ML IV SCH ×2 (06:34→12:06)
[2017-10-12] MEDS: ACETYLCYSTEINE 20% INHAL SOLN ***DISPENSED BY RESP. INH SCH ×2 (07:10→15:07)
--- NOTE | 2017-10-12 07:24 | DIAGNOSTIC IMAGING REPORT ---
SINGLE VIEW CHEST CLINICAL HISTORY: Pneumonia. FINDINGS: An AP, portable, upright chest radiograph is compared to study dated 10/10/2017. Correlation is made with chest CT dated 10/08/2017. The examination is degraded by portable technique and patient rotation. A right PICC line is unchanged in position. The tip projects over the right atrium. The heart is mildly enlarged and there is atherosclerotic calcification of the thoracic aorta. The pulmonary vasculature is noncongested. There is a large hiatal hernia. Stent material projects over the heart. Multifocal patchy airspace consolidation is again noted. This has increased in the right upper lung as compared to 10/10/2017. Small pleural effusions are noted. There is no pneumothorax. The skeletal structures are osteopenic. There are healed bilateral rib fractures. Degenerative change and scoliosis are noted in the thoracic spine. IMPRESSION: 1. Multifocal patchy airspace consolidation is again seen. This has increased on the right as compared to 10/10/2017. 2. Pleural effusions. Electronically signed by: Williams Irizarry M.D. 10/12/2017 7:22 AM Dictated Date/Time: 10/12/2017 7:20 AM
[2017-10-12] MEDS: FLUTICASONE/SALMETEROL 250/50 (ADVAIR) 14 PUFF/1 INHALER INH SCH ×2 (07:27→20:25)
[2017-10-12] MEDS: SUCRALFATE 1 GM/10 ML UDC PO SCH ×4 (07:28→20:30)
[2017-10-12] MEDS: METOPROLOL SUCC 25MG EXT REL TAB PO SCH ×2 (07:29→20:27)
[2017-10-12] MEDS: FERROUS SULFATE 325 MG TAB PO SCH ×2 (07:31→20:28)
[2017-10-12] MEDS: OXYCODONE/ACETAMINOPHEN 5-325 TAB PO PRN ×2 (07:31→13:24)
[2017-10-12] MEDS: FUROSEMIDE 40 MG TAB PO SCH (07:31)
[2017-10-12] MEDS: PAROXETINE 20 MG TAB PO SCH (07:32)
[2017-10-12] MEDS: MAGNESIUM OXIDE 400 MG TAB PO SCH (07:32)
[2017-10-12] MEDS: LACTOBACILLUS ACIDOPHILUS (FLORANEX) TAB PO SCH ×3 (07:32→17:32)
[2017-10-12] MEDS: PANTOprazole SOD 40 MG TAB PO SCH ×2 (07:32→20:28)
[2017-10-12] MEDS: LIDODERM (LIDOCAINE) PATCH 5% TD SCH (07:33)
[2017-10-12] MEDS: GUAIFENESIN 600 MG TABCR PO SCH ×2 (07:34→20:28)
[2017-10-12] MEDS: POTASSIUM CHLORIDE 10 MEQ TABCR PO SCH ×2 (07:34→20:30)
[2017-10-12] MEDS: GABAPENTIN 100 MG CAP PO SCH (07:34)
[2017-10-12] MEDS: CHECK FENTANYL PATCH PLACEMENT SCH ×3 (07:34→23:34)
[2017-10-12] MEDS: DOXYCYCLINE IV 100 MG in DEXTROSE 5% 100ML 100 ML IV SCH ×2 (09:05→20:25)
[2017-10-12] MEDS ORDERED: VANCOMYCIN TROUGH ONE (09:30)
[2017-10-12] MEDS: FENTANYL 25 MCG/HR TDSY TD SCH (10:15)
[2017-10-12] MEDS: FENTANYL PATCH REMOVE & WASTE SCH (10:15)
--- NOTE | 2017-10-12 10:56 | Progress Note ---
Subjective Date of Service: Oct 12, 2017. Subjective Pt evaluation today including: conversation w/ patient, physical exam, chart review, lab review pt more alert today, states she is sleepy, denies cough, sob, f/c. coughing on exam however. low grade fever 37.6 yesterday morning, otherwise afebrile. wbc improving, sputum culture pending, cxr with infiltrates. repeat blood cultures negative. all remaining ros reviewed and are negative. Problem List Medical Problems: (1) Acute kidney injury Status: Acute (2) Ambulatory dysfunction Status: Acute (3) Anemia Status: Chronic (4) Anticoagulated on Coumadin Status: Acute (5) Anticoagulated on Coumadin Status: Acute (6) Bronchitis with bronchospasm Status: Acute (7) Change in mental status Status: Acute (8) Contusion of left knee Status: Acute (9) Creatinine elevation Status: Acute (10) Dehydration Status: Acute (11) Dehydration Status: Acute (12) Dehydration Status: Acute (13) Dyspnea Status: Acute (14) Dyspnea Status: Acute (15) GI bleed Status: Acute (16) GI bleed Status: Acute (17) Hypotension Status: Acute (18) Melena Status: Acute (19) Pulmonary embolism Status: Acute (20) SBO (small bowel obstruction) Status: Acute (21) Sepsis due to urinary tract infection Status: Acute (22) Small bowel obstruction Status: Acute (23) Small bowel obstruction Status: Acute (24) SOB (shortness of breath) Status: Acute (25) Subtherapeutic international normalized ratio (INR) Status: Acute (26) Symptomatic anemia Status: Acute (27) Symptomatic anemia Status: Acute (28) Upper GI bleed Status: Acute (29) Urinary tract infection Status: Acute (30) UTI (urinary tract infection) Status: Acute (31) Weakness Status: Acute (32) Weakness Status: Acute Objective Vital Signs Date Time Temp Pulse Resp B/P (MAP) Pulse Ox O2 Delivery O2 Flow Rate FiO2 10/12/17 07:51 37.2 89 18 166/88 (114) 96 10/12/17 07:11 88 18 97 Nasal Cannula 4.0 10/12/17 04:00 91 Nasal Cannula 3.0 10/12/17 03:53 82 18 93 Nasal Cannula 4.0 10/12/17 03:34 36.6 93 20 131/76 (94) 91 3.0 10/11/17 23:59 99 Nasal Cannula 4.0 10/11/17 23:45 36.5 85 18 123/73 (90) 99 10/11/17 23:24 83 18 92 Nasal Cannula 4.0 10/11/17 20:00 93 Nasal Cannula 4.0 10/11/17 19:27 37.2 97 22 121/62 (81) 98 Nasal Cannula 4.0 10/11/17 19:26 98 18 98 Nasal Cannula 4.0 10/11/17 16:11 37.4 103 20 107/58 (74) 93 Nasal Cannula 4.0 10/11/17 16:00 Nasal Cannula 4.0 10/11/17 15:37 105 18 93 Nasal Cannula 4.0 10/11/17 12:00 Nasal Cannula 4.0 10/11/17 11:40 37.6 112 22 110/64 (79) 93 5.0 10/11/17 11:01 101 18 93 Nasal Cannula 4.0 Physical Exam General Appearance: WD/WN, no apparent distress Eyes: normal inspection, EOMI Neck: supple Respiratory/Chest: + decreased breath sounds, + rhonchi Cardiovascular: regular rate, rhythm, no edema Abdomen: soft Extremities: non-tender, no pedal edema Neurologic/Psychiatric: alert, oriented x 3 Skin: normal color Laboratory Results Item Value Date Time Gram Stain - Final Resulted 10/11/17 1650 Sputum Expectorated Sputum Blood Culture - Preliminary Resulted 10/10/17 1500 Blood Urine Culture - Final Complete 10/10/17 1449 Urine,Catheterized NO GROWTH - LESS THAN 1,000 COLONIES/ML Blood Culture - Preliminary Resulted 10/10/17 1442 Blood NO GROWTH TO DATE. Last 24 Hours Test 10/12/17 04:20 White Blood Count 11.62 K/uL Red Blood Count 3.04 M/uL Hemoglobin 9.0 g/dL Hematocrit 28.7 % Mean Corpuscular Volume 94.4 fL Mean Corpuscular Hemoglobin 29.6 pg Mean Corpuscular Hemoglobin Concent 31.4 g/dl RDW Standard Deviation 59.7 fL RDW Coefficient of Variation 17.3 % Platelet Count 255 K/uL Mean Platelet Volume 9.3 fL Sodium Level 139 mmol/L Potassium Level 4.1 mmol/L Chloride Level 105 mmol/L Carbon Dioxide Level 28 mmol/L Anion Gap 6.0 mmol/L Blood Urea Nitrogen 27 mg/dl Creatinine 1.12 mg/dl Est Creatinine Clear Calc Drug Dose 32.2 ml/min Estimated GFR () 52.2 Estimated GFR (Non- 45.1 BUN/Creatinine Ratio 24.2 Random Glucose 95 mg/dl Calcium Level 9.2 mg/dl Total Bilirubin 0.3 mg/dl Direct Bilirubin 0.1 mg/dl Aspartate Amino Transf (AST/SGOT) 21 U/L Alanine Aminotransferase (ALT/SGPT) 16 U/L Alkaline Phosphatase 102 U/L Total Protein 5.9 gm/dl Albumin 2.1 gm/dl Globulin 3.8 gm/dl Albumin/Globulin Ratio 0.6 Assessment and Plan (1) PNA (pneumonia) Assessment & Plan: continue fevers, follow culture results. hob at 30 degrees
[2017-10-12] MEDS: VANCOMYCIN IV 1,000 MG in SODIUM CHLORIDE 0.9% 250ML 250 ML IV SCH (12:06)
--- NOTE | 2017-10-12 14:51 | DIAGNOSTIC IMAGING REPORT ---
MODIFIED BARIUM SWALLOW CLINICAL HISTORY: Weakness. Evaluate for aspiration. COMPARISON STUDY: Modified barium swallow January 14, 2016. Fluoroscopy time: 2.6 minutes. FINDINGS: There was minimal tracheal aspiration with thin liquids by spoon. There was no aspiration with thin liquids by cup or straw. There was no aspiration with nectar thick liquids or pudding consistencies. No aspiration was noted with crackers with paste although disorganized mastication was noted. There is mild premature spillage. IMPRESSION: 1. Minimal tracheal aspiration within liquids by spoon. No aspiration with the remainder of the consistencies. 2. Full recommendations by speech pathology to follow. Electronically signed by: Pierce Abraham M.D. 10/12/2017 2:49 PM Dictated Date/Time: 10/12/2017 2:47 PM
--- NOTE | 2017-10-12 15:04 | Pulmonology Progress Note ---
Pulmonary Progress Note Date of Service Oct 12, 2017. Attending Dr. Jarrell Subjective Continues to cough and c/o dyspnea at rest. Unable to qualify sputum however reports symptomatic relief with expectoration. Denies chest pain. Denies abdominal pain. Somewhat fatigued post procedure. Objective 82-yo female admitted to [facility] with weakness, anemia and pneumonia. 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 Patient admitted to [facility] with c/o weakness and anemia. She improved somewhat with red blood cell resuscitation. She was seen by GI and EDG notable for presbyesophagus but no obvious bleeding. Her GI regimen was escalated. 10/08/17 she acutely decompensated with hypoxic respiratory failure initially treated with BiPAP and diuresis. No CO2 retention on ABG. Her course evolved with development of purulent sputum, Pct: 37.6, and infiltrative changes on imaging and she was treated with broad spectrum antibiotic and pulmonary toilet with VEST and Mucomyst with significant improvement. -10/11/17 pCt: 18.62 - Sputum moderate nL brianna CTA 10/08/17: very small right lung BE - multifocal airspace opacities consolidation ASHLEY and LLL, no adenopathy. Large hiatal hernia. Today: - CXR 10/12/17: multifocal patchy consolidation increased from prior imaging 10/10 - O2: 91-97%: 4LPM, hypertensive. Afebrile - WBC/Hgb/Hct: 11.62/9/28.7 - Video Swallow - minimal thin liquid tracheal aspiration Physical Exam: Constitutional: Chronically ill appearing elderly female lying in hospital bed. NAD Head: + facial symmetry, pale conjunctiva. EOMi. Respiratory: Loose cough on exam with bilateral rales. No wheeze. CV: Regular rate and rhythm. I/ systolic murmur. +2 DP bilaterally. Warm and perfused peripherally GI: Soft, active bowel sounds MSK/Extremities: moving bilaterally. No peripheral edema. NO calf tenderness. Neurologic: Wakened to voice. Slightly disoriented but answers questions when prompted. Pleasant and cooperative. Assessment & Plan 82-yo female with multiple medical comorbidities admitted with weakness, anemia and pneumonia - swallow study consistent with thin liquid aspiration today. 1. Continue aggressive pulmonary toilet - HOB 30-degree, VEST + and expectorant as tolerated 2. Continue scheduled bronchodilators + Advair 250/50 3. Aspiration: Speech therapy and antimicrobial aspiration coverage (per ID) Patient and records reviewed. Agree with above plan. Data Medications: Current Inpatient Medications Medications (Trade) Dose Ordered Sig/Rosi Route Start Time Stop Time Status Last Admin Dose Admin Al Hydrox/Mg Hydrox/Simethicone (Maalox Max Susp) 15 ml Q4H PRN PO 10/02/17 21:00 11/01/17 20:59 Magnesium Hydroxide (Milk Of Magnesia Susp) 30 ml Q12H PRN PO 10/02/17 21:00 11/01/17 20:59 Ondansetron HCl (Zofran Inj) 4 mg Q6H PRN IV 10/02/17 21:00 11/01/17 20:59 10/08/17 06:31 4 MG Nitroglycerin (Nitrostat Tab) 0.4 mg UD PRN SL 10/02/17 21:00 11/01/17 20:59 Polyethylene (Miralax Powder Packet) 17 gm DAILY PRN PO 10/02/17 21:00 11/01/17 20:59 Ferrous Sulfate (Feosol Tab) 325 mg BID PO 10/03/17 09:00 11/02/17 08:59 10/12/17 07:31 325 MG Salmeterol Xinafoate/ Fluticasone (Advair Diskus 250/50 Inh) 1 puff BID INH 10/03/17 09:00 11/02/17 08:59 10/12/17 07:27 1 PUFF Gabapentin (Neurontin Cap) 100 mg DAILY PO 10/03/17 09:00 11/02/17 08:59 10/12/17 07:34 100 MG Lactobacillus Acidophilus (Floranex Tab) 1 tab TIDM PO 10/03/17 07:30 11/02/17 07:29 10/12/17 12:06 1 TAB Lorazepam (Ativan Tab) 0.5 mg HS PRN PO 10/02/17 21:15 4/1/18 21:14 10/11/17 20:11 0.5 MG Magnesium Oxide (Mag-Ox Tab) 400 mg DAILY PO 10/03/17 09:00 11/02/17 08:59 10/12/17 07:32 400 MG Metoprolol Succinate (Toprol Xl Tab) 12.5 mg BID PO 10/03/17 09:00 11/02/17 08:59 10/12/17 07:29 12.5 MG Mirtazapine (Remeron Solutab) 15 mg HS PO 10/03/17 21:00 11/02/17 20:59 10/11/17 20:07 15 MG Paroxetine HCl (pAXil TAB) 40 mg DAILY PO 10/03/17 09:00 11/02/17 08:59 10/12/17 07:32 40 MG Potassium Chloride (Klor-Con M10) 10 meq BID PO 10/03/17 09:00 11/02/17 08:59 10/12/17 07:34 10 MEQ Ranitidine HCl (zANTac TAB) 300 mg HS PO 10/03/17 21:00 11/02/17 20:59 10/11/17 20:08 300 MG Sucralfate (Carafate Susp) 1 gm QID PO 10/03/17 17:00 11/02/17 16:59 10/12/17 12:06 1 GM Lidocaine (Lidoderm Patch 5%) 1 patch QAM TD 10/05/17 09:00 11/04/17 08:59 10/12/17 07:33 1 PATCH Miscellaneous (Remove Lidoderm Patch) 1 ea DAILY@21 N/A 10/04/17 21:00 11/03/17 20:59 10/11/17 20:04 1 EA Pantoprazole Sodium (Protonix Tab) 40 mg BID PO 10/05/17 21:00 11/04/17 20:59 10/12/17 07:32 40 MG Prednisone (PredniSONE TAB) 5 mg DAILY PO 10/07/17 09:00 11/06/17 08:59 10/12/17 07:34 5 MG Senna (Senokot Tab) 8.6 mg Q24H PRN PO 10/07/17 22:30 11/06/17 22:29 10/09/17 10:08 8.6 MG Furosemide 40 mg/ Syringe 4 ml @ 4 mls/min Q12 IV 10/08/17 09:00 11/07/17 08:59 Future Hold Ipratropium [place] (Atrovent 0.02% 0.5MG/2.5ML Neb) 0.5 mg Q2R PRN INH 10/08/17 08:00 11/07/17 07:59 Levalbuterol (Xopenex 1.25MG/ 0.5ML Neb) 1.25 mg Q2R PRN INH 10/08/17 08:00 11/07/17 07:59 Doxycycline Hyclate 100 mg/ Dextrose 110 ml @ 50 mls/hr Q12 IV 10/08/17 11:00 10/15/17 10:59 10/12/17 09:05 50 MLS/HR Miscellaneous Information (Consult) 1 ea UD PRN N/A 10/08/17 14:00 11/07/17 13:59 Ipratropium [place] (Atrovent 0.02% 0.5MG/2.5ML Neb) 0.5 mg Q4R INH 10/08/17 20:00 11/07/17 19:59 10/12/17 07:10 0.5 MG Levalbuterol (Xopenex 1.25MG/ 0.5ML Neb) 1.25 mg Q4R INH 10/08/17 20:00 11/07/17 19:59 10/12/17 07:10 1.25 MG Acetylcysteine (Mucomyst 20% Inh Soln) 3 ml Q8R INH 10/08/17 18:00 11/07/17 17:59 10/12/17 07:10 3 ML Fentanyl (Duragesic Patch) 25 mcg Q72H TD 10/09/17 10:00 10/23/17 09:59 10/12/17 10:15 25 MCG Miscellaneous (Fentanyl Patch Remove & Waste) 1 ea Q3D N/A 10/12/17 09:59 11/11/17 09:58 10/12/17 10:15 1 EA Miscellaneous Information (Check Fentanyl Patch Placement) 1 ea QS N/A 10/09/17 16:00 11/08/17 15:59 10/12/17 07:34 1 EA Heparin Sodium (Porcine) (Heparin 10 Unit/ ml 5 ml Flush) 5 ml PRN PRN FLUSH 10/10/17 13:30 11/09/17 13:29 Furosemide (Lasix Tab) 40 mg QAM PO 10/11/17 09:00 11/10/17 08:59 10/12/17 07:31 40 MG Imipenem/ Cilastatin Sodium (Consult) 1 ea UD PRN N/A 10/10/17 17:45 11/09/17 17:44 Acetaminophen 100 ml @ 400 mls/hr Q8H PRN IV 10/10/17 18:15 11/09/17 18:14 10/10/17 18:20 400 MLS/HR Oxycodone/ Acetaminophen (Percocet 5-325mg Tab) 2 tab Q4HWA PRN PO 10/11/17 09:30 10/16/17 21:14 10/12/17 13:24 2 TAB Guaifenesin (Mucinex Contr Rel Tab) 600 mg Q12 PO 10/11/17 21:00 11/10/17 20:59 10/12/17 07:34 600 MG Vancomycin HCl 1000 mg/Sodium Chloride 270 ml @ 125 mls/hr Q24H IV 10/13/17 12:00 10/15/17 11:59 Imipenem/ Cilastatin Sodium 300 mg/Dextrose 106 ml @ 106 mls/hr Q6H IV 10/12/17 18:00 10/17/17 17:59 I & O: 24-Hour Column 10/13/17 08:00 Intake Total 1092 ml Output Total 650 ml Balance 442 ml Vital Signs: Date Time Temp Pulse Resp B/P (MAP) Pulse Ox O2 Delivery O2 Flow Rate FiO2 10/12/17 12:00 Nasal Cannula 4.0 10/12/17 11:28 37.0 96 18 158/96 (116) 92 10/12/17 08:00 Nasal Cannula 4.0 10/12/17 07:51 37.2 89 18 166/88 (114) 96 10/12/17 07:11 88 18 97 Nasal Cannula 4.0 10/12/17 04:00 91 Nasal Cannula 3.0 10/12/17 03:53 82 18 93 Nasal Cannula 4.0 10/12/17 03:34 36.6 93 20 131/76 (94) 91 3.0 10/11/17 23:59 99 Nasal Cannula 4.0 10/11/17 23:45 36.5 85 18 123/73 (90) 99 10/11/17 23:24 83 18 92 Nasal Cannula 4.0 10/11/17 20:00 93 Nasal Cannula 4.0 10/11/17 19:27 37.2 97 22 121/62 (81) 98 Nasal Cannula 4.0 10/11/17 19:26 98 18 98 Nasal Cannula 4.0 10/11/17 16:11 37.4 103 20 107/58 (74) 93 Nasal Cannula 4.0 10/11/17 16:00 Nasal Cannula 4.0 10/11/17 15:37 105 18 93 Nasal Cannula 4.0 Laboratory Results: Last 24 Hours Test 10/12/17 04:20 White Blood Count 11.62 K/uL Red Blood Count 3.04 M/uL Hemoglobin 9.0 g/dL Hematocrit 28.7 % Mean Corpuscular Volume 94.4 fL Mean Corpuscular Hemoglobin 29.6 pg Mean Corpuscular Hemoglobin Concent 31.4 g/dl RDW Standard Deviation 59.7 fL RDW Coefficient of Variation 17.3 % Platelet Count 255 K/uL Mean Platelet Volume 9.3 fL Sodium Level 139 mmol/L Potassium Level 4.1 mmol/L Chloride Level 105 mmol/L Carbon Dioxide Level 28 mmol/L Anion Gap 6.0 mmol/L Blood Urea Nitrogen 27 mg/dl Creatinine 1.12 mg/dl Est Creatinine Clear Calc Drug Dose 32.2 ml/min Estimated GFR () 52.2 Estimated GFR (Non- 45.1 BUN/Creatinine Ratio 24.2 Random Glucose 95 mg/dl Calcium Level 9.2 mg/dl Total Bilirubin 0.3 mg/dl Direct Bilirubin 0.1 mg/dl Aspartate Amino Transf (AST/SGOT) 21 U/L Alanine Aminotransferase (ALT/SGPT) 16 U/L Alkaline Phosphatase 102 U/L Total Protein 5.9 gm/dl Albumin 2.1 gm/dl Globulin 3.8 gm/dl Albumin/Globulin Ratio 0.6
[2017-10-12] MEDS: IMIPENEM/CILASTATIN IV 300 MG in DEXTROSE 5% 100ML 100 ML IV SCH ×2 (17:32→23:34)
--- NOTE | 2017-10-12 19:09 | Progress Note ---
Internal Med Progress Note Date of Service: Oct 12, 2017. Provider Documentation: SUBJECTIVE: Sitting up on chair, appears to be much better today, cheeks are less flushed Do have moist productive cough has been afebrile since yesterday OBJECTIVE: Vital Signs-as noted below Exam: General-elderly female, no apparent distress ENT-dry oral mucosa Neck-no JVD, no carotid bruit, no thyromegaly noted Lungs-coarse breath sound, CARDIAC: No chest pain, sweating, shortness of breath , leg swelling, or irregular heart beat. Bibasilar rales , no wheeze Heart-regular Abdomen-soft nontender no organomegaly, Extremities-no rash, no deformity, no lower extremity, no calf tenderness. Neuro-, generalized weakness, anxious no focal neurological deficit noted. Lab data as noted below. ASSESSMENT & PLAN: ACUTE HYPOXEMIC RESPIRATORY FAILURE : -Due to combination of aspiration pneumonia/CHF with diastolic dysfunction -Very slow improvement -Remains hypoxic , shortness of breath, significant cough -Developed sudden onset of hypoxemia with increased work of breathing - stat portable chest x-ray showed progressive patchy air space opacity throughout the lungs more pronounced on the left side concern from pulmonary edema versus pneumonia -Was transferred to ICU -Lactic acid /pro calcitonin level was elevated >55 -Respiratory status improved after BiPAP treatment -Patient was started empirically with IV vancomycin/IV imipenem/IV doxycycline for atypical coverage -Ordered for blood and sputum culture-no growth ID requested- will need to discuss option for de-escalate IV antibiotic -Appreciate input from infectious disease and pulmonology -Chest x-ray on 10/10/2017 1. Cardiomegaly without overt pulmonary edema. 2. Unchanged bibasilar and left perihilar airspace opacities suggest ongoing pneumonia. 3. Probable trace pleural effusions. -Patient's prognosis remains guarded SEVERE SEPSIS /DUE TO ASPIRATION PNEUMONIA : -Meets criteria for sepsis, leukocytosis tachycardia elevated lactic acid and pro calcitonin level -On empiric broad-spectrum antibiotic as above -Follow culture report/ID consulted -Speech pathology consulted -Status post video swallow study -Shows no evidence of overt aspiration ACUTE DIASTOLIC HEART FAILURE : Volume status remained stable given IV Lasix -for acute respiratory failure/pulmonary congestion ECHO : Left ventricular cavity small LV hyperdynamic, EF more than 70% Patient is status post TAVR, normal gradient noted across the prosthetic valve Normal right ventricular systolic function No evidence of pulmonary hypertension PA systolic pressure is less than 36 mmHg -Patient started with Lasix 40 mg p.o. daily -Continue to monitor volume status -Continue Marcelo catheter for accurate measuring input and output HX OF DVT /SMALL PE NOTED IN CT CHEST : CT chest finding of small pulmonary embolism in the right lung Doubt that caused respiratory failure -Echo shows no evidence of pulmonary hypertension PA systolic pressure is less than 36 mmHg -Patient has significant bleeding risk while on anticoagulation -Was started with IV heparin, discontinued after drop in hemoglobin from 11-9 HX OF TAVR : -Status post bioprosthetic aortic valve replacement -Patient does not need to be on chronic anticoagulation ANEMIA /CONCERN FOR GI BLEED : Presented with symptomatic anemia/secondary to GI bleed: Status post 1 PRBC transfusion (presented with hemoglobin 7.7) post post transfusion hemoglobin is stable hb 12- 11.4 No active GI bleed noted. Appreciate input from GI team, Underwent EGD October 05, 2017, by Dr. Osman Shows: There was marked corkscrew appearance to the lower esophagus appeared to be a fixed defect-, rather than disordered peristalsis. The GE junction was at 30 cm. There was a mild ring at the GE junction. There is large hiatal hernia. The mucosa of the stomach were otherwise normal No source of upper GI bleeding noted Coumadin was DC'd DC IV heparin Monitor H&H - ACUTE KIDNEY INJURY /CKD STAGE 3: -Creatinine continues to improve -Due to diuresis: iv Lasix was ordered for concern for CHF /bilateral pleural effusion /respiratory distress -Received contrast study for CT chest PE study -We will resume oral Lasix for persistent pulmonary congestion, bibasilar Rales -Monitor electrolytes -Avoid NSAId's DVT PROPHYLAXIS D/c IV heparin -for anemia/GI bleed SCD and teds CODE STATUS: Full code DISPOSITION To be determined -Patient's prognosis remains guarded-multiple comorbidities/persistent respiratory failure/severe sepsis Continue to monitor in telemetry PT OT evaluation Possibly will need rehab Social service consult for discharge planning Medicine follow-up with Dr. Yoly Block at [facility] Vital Signs: Date Time Temp Pulse Resp B/P (MAP) Pulse Ox O2 Delivery O2 Flow Rate FiO2 10/12/17 20:00 Nasal Cannula 3.0 10/12/17 19:14 36.7 82 22 124/70 (88) 96 Nasal Cannula 3.0 10/12/17 16:00 Nasal Cannula 3.0 10/12/17 15:34 37.7 89 22 150/82 (104) 96 Nasal Cannula 3.0 10/12/17 12:00 Nasal Cannula 4.0 10/12/17 11:28 37.0 96 18 158/96 (116) 92 10/12/17 08:00 Nasal Cannula 4.0 10/12/17 07:51 37.2 89 18 166/88 (114) 96 10/12/17 07:11 88 18 97 Nasal Cannula 4.0 10/12/17 04:00 91 Nasal Cannula 3.0 10/12/17 03:53 82 18 93 Nasal Cannula 4.0 10/12/17 03:34 36.6 93 20 131/76 (94) 91 3.0 10/11/17 23:59 99 Nasal Cannula 4.0 10/11/17 23:45 36.5 85 18 123/73 (90) 99 10/11/17 23:24 83 18 92 Nasal Cannula 4.0 Lab Results: Results Past 24 Hours Test 10/12/17 04:20 Range/Units White Blood Count 11.62 4.8-10.8 K/uL Red Blood Count 3.04 4.2-5.4 M/uL Hemoglobin 9.0 12.0-16.0 g/dL Hematocrit 28.7 37-47 % Mean Corpuscular Volume 94.4 80-100 fL Mean Corpuscular Hemoglobin 29.6 25-34 pg Mean Corpuscular Hemoglobin Concent 31.4 32-36 g/dl RDW Standard Deviation 59.7 36.4-46.3 fL RDW Coefficient of Variation 17.3 11.5-14.5 % Platelet Count 255 130-400 K/uL Mean Platelet Volume 9.3 7.4-10.4 fL Sodium Level 139 136-145 mmol/L Potassium Level 4.1 3.5-5.1 mmol/L Chloride Level 105 98-107 mmol/L Carbon Dioxide Level 28 21-32 mmol/L Anion Gap 6.0 3-11 mmol/L Blood Urea Nitrogen 27 7-18 mg/dl Creatinine 1.12 0.60-1.20 mg/dl Est Creatinine Clear Calc Drug Dose 32.2 ml/min Estimated GFR () 52.2 Estimated GFR (Non- 45.1 BUN/Creatinine Ratio 24.2 10-20 Random Glucose 95 70-99 mg/dl Calcium Level 9.2 8.5-10.1 mg/dl Total Bilirubin 0.3 0.2-1 mg/dl Direct Bilirubin 0.1 0-0.2 mg/dl Aspartate Amino Transf (AST/SGOT) 21 15-37 U/L Alanine Aminotransferase (ALT/SGPT) 16 12-78 U/L Alkaline Phosphatase 102 45-117 U/L Total Protein 5.9 6.4-8.2 gm/dl Albumin 2.1 3.4-5.0 gm/dl Globulin 3.8 2.5-4.0 gm/dl Albumin/Globulin Ratio 0.6 0.9-2
[2017-10-12] MEDS: MIRTAZAPINE SOLTAB 15 MG PO SCH (20:27)
[2017-10-12] MEDS: RANITIDINE HCL 150 MG TAB PO SCH (20:29)
[2017-10-12] MEDS: LORAZEPAM 0.5 MG TAB PO PRN (22:13)
[2017-10-13] VITALS (15 sets, daily range): BP systolic 109–160; BP diastolic 58–80; PULSE 80–105; TEMP 36.4–37.7; O2SAT 91–100
[2017-10-13] MEDS: IPRATROPIUM BROMIDE NEB SOLN 0.02% 2.5 ML VIAL INH SCH ×7 (01:30→23:13)
[2017-10-13] MEDS: ACETYLCYSTEINE 20% INHAL SOLN ***DISPENSED BY RESP. INH SCH ×4 (01:30→23:12)
[2017-10-13] MEDS: LEVALBUTEROL 1.25MG/0.5ML NEB INH SCH ×7 (01:30→23:13)
[2017-10-13] MEDS: SENNA 8.6 MG TAB PO PRN ×2 (02:00→07:48)
[2017-10-13] MEDS: IMIPENEM/CILASTATIN IV 300 MG in DEXTROSE 5% 100ML 100 ML IV SCH ×4 (05:19→23:46)
[2017-10-13 07:15] LABS: HEMATOCRIT 28.5 % (37-47); MEAN CELL VOLUME 92.8 fL (80-100); MEAN CORPUSCULAR HEMOGLOBIN 29.3 pg (25-34); MEAN CORPUSCULAR HGB CONC 31.6 g/dl (32-36); MEAN PLATELET VOLUME 9.4 fL (7.4-10.4); PLATELET COUNT 281 K/uL (130-400); RED CELL DISTRIBUTION WIDTH CV 17.1 % (11.5-14.5); RED CELL DISTRIBUTION WIDTH SD 58.7 fL (36.4-46.3); WHITE BLOOD COUNT 11.22 K/uL (4.8-10.8)
[2017-10-13] MEDS: DOXYCYCLINE IV 100 MG in DEXTROSE 5% 100ML 100 ML IV SCH (07:46)
[2017-10-13] MEDS: PANTOprazole SOD 40 MG TAB PO SCH ×2 (07:47→20:45)
[2017-10-13] MEDS: METOPROLOL SUCC 25MG EXT REL TAB PO SCH ×2 (07:47→20:45)
[2017-10-13] MEDS: LACTOBACILLUS ACIDOPHILUS (FLORANEX) TAB PO SCH ×3 (07:47→17:01)
[2017-10-13] MEDS: FLUTICASONE/SALMETEROL 250/50 (ADVAIR) 14 PUFF/1 INHALER INH SCH ×2 (07:47→20:43)
[2017-10-13] MEDS: GUAIFENESIN 600 MG TABCR PO SCH ×2 (07:47→20:44)
[2017-10-13] MEDS: FUROSEMIDE 40 MG TAB PO SCH (07:48)
[2017-10-13] MEDS: FERROUS SULFATE 325 MG TAB PO SCH ×2 (07:48→20:44)
[2017-10-13] MEDS: PAROXETINE 20 MG TAB PO SCH (07:48)
[2017-10-13] MEDS: MAGNESIUM OXIDE 400 MG TAB PO SCH (07:48)
[2017-10-13] MEDS: SUCRALFATE 1 GM/10 ML UDC PO SCH ×4 (07:49→20:43)
[2017-10-13] MEDS: POTASSIUM CHLORIDE 10 MEQ TABCR PO SCH ×2 (07:49→20:43)
[2017-10-13] MEDS: GABAPENTIN 100 MG CAP PO SCH (07:49)
[2017-10-13] MEDS: CHECK FENTANYL PATCH PLACEMENT SCH ×3 (07:49→23:46)
[2017-10-13] MEDS: LIDODERM (LIDOCAINE) PATCH 5% TD SCH (07:49)
[2017-10-13] MEDS: OXYCODONE/ACETAMINOPHEN 5-325 TAB PO PRN ×2 (07:55→18:50)
[2017-10-13] MEDS ORDERED: VANCOMYCIN TROUGH ONE ×2 (10:30→11:30)
[2017-10-13] MEDS ORDERED: VANCOMYCIN IV 1,000 MG in SODIUM CHLORIDE 0.9% 250ML 250 ML IV SCH (12:00)
[2017-10-13] MEDS ORDERED: BISACODYL 10 MG SUPP PR STA (13:28)
[2017-10-13] MEDS ORDERED: BISACODYL 10 MG SUPP ONE (13:40)
--- NOTE | 2017-10-13 15:08 | Progress Note ---
Subjective Date of Service: Oct 13, 2017. Subjective pt afebrile, tolerating abx. blood cultures negative, sputum culture with yeast only. video swallow with aspiration. tmax 37.7 Problem List Medical Problems: (1) Acute kidney injury Status: Acute (2) Ambulatory dysfunction Status: Acute (3) Anemia Status: Chronic (4) Anticoagulated on Coumadin Status: Acute (5) Anticoagulated on Coumadin Status: Acute (6) Bronchitis with bronchospasm Status: Acute (7) Change in mental status Status: Acute (8) Contusion of left knee Status: Acute (9) Creatinine elevation Status: Acute (10) Dehydration Status: Acute (11) Dehydration Status: Acute (12) Dehydration Status: Acute (13) Dyspnea Status: Acute (14) Dyspnea Status: Acute (15) GI bleed Status: Acute (16) GI bleed Status: Acute (17) Hypotension Status: Acute (18) Melena Status: Acute (19) Pulmonary embolism Status: Acute (20) SBO (small bowel obstruction) Status: Acute (21) Sepsis due to urinary tract infection Status: Acute (22) Small bowel obstruction Status: Acute (23) Small bowel obstruction Status: Acute (24) SOB (shortness of breath) Status: Acute (25) Subtherapeutic international normalized ratio (INR) Status: Acute (26) Symptomatic anemia Status: Acute (27) Symptomatic anemia Status: Acute (28) Upper GI bleed Status: Acute (29) Urinary tract infection Status: Acute (30) UTI (urinary tract infection) Status: Acute (31) Weakness Status: Acute (32) Weakness Status: Acute Objective Vital Signs Date Time Temp Pulse Resp B/P (MAP) Pulse Ox O2 Delivery O2 Flow Rate FiO2 10/13/17 14:37 93 21 94 Nasal Cannula 3.0 10/13/17 13:05 36.7 94 20 139/78 (98) 96 Nasal Cannula 3.0 10/13/17 12:35 37.2 97 18 91 4.0 10/13/17 12:00 Nasal Cannula 4.0 10/13/17 11:40 37.2 97 18 132/69 (90) 91 Nasal Cannula 4.0 10/13/17 11:02 86 18 93 Nasal Cannula 3.0 10/13/17 08:00 Nasal Cannula 4.0 10/13/17 07:25 37.7 98 18 160/78 (105) 97 Nasal Cannula 4.0 10/13/17 07:21 98 20 97 Nasal Cannula 4.0 10/13/17 04:00 Nasal Cannula 3.0 10/13/17 04:00 37.1 89 18 134/65 (88) 98 10/13/17 01:30 80 20 95 Nasal Cannula 4.0 10/12/17 23:59 Nasal Cannula 3.0 10/12/17 23:43 36.8 85 18 150/81 (104) 99 3.0 10/12/17 20:00 Nasal Cannula 3.0 10/12/17 19:14 36.7 82 22 124/70 (88) 96 Nasal Cannula 3.0 10/12/17 16:00 Nasal Cannula 3.0 10/12/17 15:34 37.7 89 22 150/82 (104) 96 Nasal Cannula 3.0 Laboratory Results Item Value Date Time Gram Stain - Final Complete 10/11/17 1650 Sputum Expectorated Sputum Last 24 Hours Test 10/13/17 06:51 10/13/17 11:48 White Blood Count 11.22 K/uL Red Blood Count 3.07 M/uL Hemoglobin 9.0 g/dL Hematocrit 28.5 % Mean Corpuscular Volume 92.8 fL Mean Corpuscular Hemoglobin 29.3 pg Mean Corpuscular Hemoglobin Concent 31.6 g/dl RDW Standard Deviation 58.7 fL RDW Coefficient of Variation 17.1 % Platelet Count 281 K/uL Mean Platelet Volume 9.4 fL Procalcitonin 4.19 ng/ml Vancomycin Level Trough 20.9 mcg/ml Assessment and Plan (1) PNA (pneumonia) Assessment & Plan: would continue emperic abx for likely aspiration, tolerating imipenem, clinically improved since starting would give 2 more days. hob at 30 degrees.
[2017-10-13] MEDS ORDERED: BISACODYL 5 MG TABEC PO PRN (17:45)
[2017-10-13] MEDS: SENNA 8.6 MG TAB PO SCH (20:41)
[2017-10-13] MEDS: MIRTAZAPINE SOLTAB 15 MG PO SCH (20:42)
[2017-10-13] MEDS: RANITIDINE HCL 150 MG TAB PO SCH (20:45)
[2017-10-14] VITALS (11 sets, daily range): BP systolic 150–180; BP diastolic 80–101; PULSE 72–100; TEMP 36.7–36.9; O2SAT 91–97
[2017-10-14] MEDS: IPRATROPIUM BROMIDE NEB SOLN 0.02% 2.5 ML VIAL INH SCH ×6 (03:32→23:05)
[2017-10-14] MEDS: LEVALBUTEROL 1.25MG/0.5ML NEB INH SCH ×6 (03:32→23:05)
[2017-10-14 05:36] LABS: HEMATOCRIT 26.5 % (37-47); HEMOGLOBIN 8.4 g/dL (12.0-16.0); MEAN CELL VOLUME 92.3 fL (80-100); MEAN CORPUSCULAR HEMOGLOBIN 29.3 pg (25-34); MEAN CORPUSCULAR HGB CONC 31.7 g/dl (32-36); MEAN PLATELET VOLUME 9.1 fL (7.4-10.4); PLATELET COUNT 274 K/uL (130-400); RED CELL DISTRIBUTION WIDTH SD 57.8 fL (36.4-46.3); WHITE BLOOD COUNT 8.72 K/uL (4.8-10.8)
[2017-10-14 06:06] LABS: CALCIUM 9.4 mg/dl (8.5-10.1); CREATININE 0.94 mg/dl (0.60-1.20); POTASSIUM 3.7 mmol/L (3.5-5.1)
[2017-10-14] MEDS: IMIPENEM/CILASTATIN IV 300 MG in DEXTROSE 5% 100ML 100 ML IV SCH ×3 (06:10→18:03)
[2017-10-14] MEDS: ACETYLCYSTEINE 20% INHAL SOLN ***DISPENSED BY RESP. INH SCH ×3 (07:03→23:05)
--- NOTE | 2017-10-14 07:29 | Progress Note ---
Subjective Date of Service: Oct 13, 2017. Subjective Pt evaluation today including: conversation w/ patient, conversation w/ family , physical exam, lab review, review of studies, review of inpatient medication list Saw/examined the patient in room 258 She's doing well today Son is at bedside Patient eager to go home c/o constipation earlier today - received dulcolax suppository with a good response Problem List Medical Problems: (1) Acute kidney injury Status: Acute (2) Ambulatory dysfunction Status: Acute (3) Anemia Status: Chronic (4) Anticoagulated on Coumadin Status: Acute (5) Anticoagulated on Coumadin Status: Acute (6) Bronchitis with bronchospasm Status: Acute (7) Change in mental status Status: Acute (8) Contusion of left knee Status: Acute (9) Creatinine elevation Status: Acute (10) Dehydration Status: Acute (11) Dehydration Status: Acute (12) Dehydration Status: Acute (13) Dyspnea Status: Acute (14) Dyspnea Status: Acute (15) GI bleed Status: Acute (16) GI bleed Status: Acute (17) Hypotension Status: Acute (18) Melena Status: Acute (19) Pulmonary embolism Status: Acute (20) SBO (small bowel obstruction) Status: Acute (21) Sepsis due to urinary tract infection Status: Acute (22) Small bowel obstruction Status: Acute (23) Small bowel obstruction Status: Acute (24) SOB (shortness of breath) Status: Acute (25) Subtherapeutic international normalized ratio (INR) Status: Acute (26) Symptomatic anemia Status: Acute (27) Symptomatic anemia Status: Acute (28) Upper GI bleed Status: Acute (29) Urinary tract infection Status: Acute (30) UTI (urinary tract infection) Status: Acute (31) Weakness Status: Acute (32) Weakness Status: Acute Review of Systems Constitutional: No chills Respiratory: No cough, No sputum, No shortness of breath Cardiac: No chest pain Abdomen: + constipation Psychiatric: + anxiety Heme: No abnormal bleeding/bruising Medications Current Inpatient Medications Medications (Trade) Dose Ordered Sig/Rosi Route Start Time Stop Time Status Last Admin Dose Admin Al Hydrox/Mg Hydrox/Simethicone (Maalox Max Susp) 15 ml Q4H PRN PO 10/02/17 21:00 11/01/17 20:59 Magnesium Hydroxide (Milk Of Magnesia Susp) 30 ml Q12H PRN PO 3/2/18 21:00 11/01/17 20:59 Ondansetron HCl (Zofran Inj) 4 mg Q6H PRN IV 10/02/17 21:00 11/01/17 20:59 10/08/17 06:31 4 MG Nitroglycerin (Nitrostat Tab) 0.4 mg UD PRN SL 10/02/17 21:00 11/01/17 20:59 Ferrous Sulfate (Feosol Tab) 325 mg BID PO 10/03/17 09:00 11/02/17 08:59 10/13/17 20:44 325 MG Salmeterol Xinafoate/ Fluticasone (Advair Diskus 250/50 Inh) 1 puff BID INH 10/03/17 09:00 11/02/17 08:59 10/13/17 20:43 1 PUFF Gabapentin (Neurontin Cap) 100 mg DAILY PO 10/03/17 09:00 11/02/17 08:59 10/13/17 07:49 100 MG Lactobacillus Acidophilus (Floranex Tab) 1 tab TIDM PO 10/03/17 07:30 11/02/17 07:29 10/13/17 17:01 1 TAB Lorazepam (Ativan Tab) 0.5 mg HS PRN PO 10/02/17 21:15 11/01/17 21:14 10/12/17 22:13 0.5 MG Magnesium Oxide (Mag-Ox Tab) 400 mg DAILY PO 10/03/17 09:00 11/02/17 08:59 10/13/17 07:48 400 MG Metoprolol Succinate (Toprol Xl Tab) 12.5 mg BID PO 10/03/17 09:00 11/02/17 08:59 10/13/17 20:45 12.5 MG Mirtazapine (Remeron Solutab) 15 mg HS PO 10/03/17 21:00 11/02/17 20:59 10/13/17 20:42 15 MG Paroxetine HCl (pAXil TAB) 40 mg DAILY PO 10/03/17 09:00 11/02/17 08:59 10/13/17 07:48 40 MG Potassium Chloride (Klor-Con M10) 10 meq BID PO 10/03/17 09:00 11/02/17 08:59 10/13/17 20:43 10 MEQ Ranitidine HCl (zANTac TAB) 300 mg HS PO 10/03/17 21:00 11/02/17 20:59 10/13/17 20:45 300 MG Sucralfate (Carafate Susp) 1 gm QID PO 10/03/17 17:00 11/02/17 16:59 10/13/17 20:43 1 GM Lidocaine (Lidoderm Patch 5%) 1 patch QAM TD 10/05/17 09:00 11/04/17 08:59 10/13/17 07:49 1 PATCH Miscellaneous (Remove Lidoderm Patch) 1 ea DAILY@21 N/A 10/04/17 21:00 11/03/17 20:59 10/13/17 20:43 1 EA Pantoprazole Sodium (Protonix Tab) 40 mg BID PO 10/05/17 21:00 11/04/17 20:59 10/13/17 20:45 40 MG Prednisone (PredniSONE TAB) 5 mg DAILY PO 10/07/17 09:00 11/06/17 08:59 10/13/17 07:48 5 MG Ipratropium [place] (Atrovent 0.02% 0.5MG/2.5ML Neb) 0.5 mg Q2R PRN INH 10/08/17 08:00 11/07/17 07:59 Levalbuterol (Xopenex 1.25MG/ 0.5ML Neb) 1.25 mg Q2R PRN INH 10/08/17 08:00 11/07/17 07:59 Ipratropium [place] (Atrovent 0.02% 0.5MG/2.5ML Neb) 0.5 mg Q4R INH 10/08/17 20:00 11/07/17 19:59 10/13/17 19:21 0.5 MG Levalbuterol (Xopenex 1.25MG/ 0.5ML Neb) 1.25 mg Q4R INH 10/08/17 20:00 11/07/17 19:59 10/13/17 19:21 1.25 MG Acetylcysteine (Mucomyst 20% Inh Soln) 3 ml Q8R INH 10/08/17 18:00 11/07/17 17:59 10/13/17 14:37 3 ML Fentanyl (Duragesic Patch) 25 mcg Q72H TD 10/09/17 10:00 10/23/17 09:59 10/12/17 10:15 25 MCG Miscellaneous (Fentanyl Patch Remove & Waste) 1 ea Q3D N/A 10/12/17 09:59 11/11/17 09:58 10/12/17 10:15 1 EA Miscellaneous Information (Check Fentanyl Patch Placement) 1 ea QS N/A 10/09/17 16:00 11/08/17 15:59 10/13/17 15:22 1 EA Heparin Sodium (Porcine) (Heparin 10 Unit/ ml 5 ml Flush) 5 ml PRN PRN FLUSH 10/10/17 13:30 11/09/17 13:29 10/13/17 16:14 5 ML Furosemide (Lasix Tab) 40 mg QAM PO 10/11/17 09:00 11/10/17 08:59 10/13/17 07:48 40 MG Imipenem/ Cilastatin Sodium (Consult) 1 ea UD PRN N/A 10/10/17 17:45 11/09/17 17:44 Acetaminophen 100 ml @ 400 mls/hr Q8H PRN IV 10/10/17 18:15 11/09/17 18:14 10/10/17 18:20 400 MLS/HR Oxycodone/ Acetaminophen (Percocet 5-325mg Tab) 2 tab Q4HWA PRN PO 10/11/17 09:30 10/16/17 21:14 10/13/17 18:50 2 TAB Guaifenesin (Mucinex Contr Rel Tab) 600 mg Q12 PO 10/11/17 21:00 11/10/17 20:59 10/13/17 20:44 600 MG Imipenem/ Cilastatin Sodium 300 mg/Dextrose 106 ml @ 106 mls/hr Q6H IV 10/12/17 18:00 10/17/17 17:59 10/13/17 18:43 106 MLS/HR Polyethylene (Miralax Powder Packet) 17 gm DAILY PO 10/14/17 09:00 11/01/17 20:59 Senna/Docusate Sodium (Senokot S Tab) 1 tab QAM PO 10/14/17 09:00 11/13/17 08:59 Senna (Senokot Tab) 8.6 mg QPM PO 10/13/17 21:00 11/12/17 20:59 10/13/17 20:41 8.6 MG Bisacodyl (Dulcolax Tab) 5 mg BID PRN PO 10/13/17 17:45 11/12/17 17:44 Objective Vital Signs Date Time Temp Pulse Resp B/P (MAP) Pulse Ox O2 Delivery O2 Flow Rate FiO2 10/13/17 19:23 90 21 93 Nasal Cannula 3.0 10/13/17 15:40 97 Nasal Cannula 3.0 98 10/13/17 15:07 36.4 86 20 144/80 (101) 97 Nasal Cannula 3.0 10/13/17 14:37 93 21 94 Nasal Cannula 3.0 10/13/17 13:05 36.7 94 20 139/78 (98) 96 Nasal Cannula 3.0 10/13/17 12:35 37.2 97 18 91 4.0 10/13/17 12:00 Nasal Cannula 4.0 10/13/17 11:40 37.2 97 18 132/69 (90) 91 Nasal Cannula 4.0 10/13/17 11:02 86 18 93 Nasal Cannula 3.0 10/13/17 08:00 Nasal Cannula 4.0 10/13/17 07:25 37.7 98 18 160/78 (105) 97 Nasal Cannula 4.0 10/13/17 07:21 98 20 97 Nasal Cannula 4.0 10/13/17 04:00 Nasal Cannula 3.0 10/13/17 04:00 37.1 89 18 134/65 (88) 98 10/13/17 01:30 80 20 95 Nasal Cannula 4.0 10/12/17 23:59 Nasal Cannula 3.0 10/12/17 23:43 36.8 85 18 150/81 (104) 99 3.0 Physical Exam General Appearance: no apparent distress Respiratory/Chest: no respiratory distress, no accessory muscle use Cardiovascular: regular rate, rhythm, no edema, no murmur Extremities: normal inspection, no pedal edema Neurologic/Psychiatric: no motor/sensory deficits, alert, normal mood/affect Laboratory Results Last 24 Hours Test 10/13/17 06:51 10/13/17 11:48 White Blood Count 11.22 K/uL Red Blood Count 3.07 M/uL Hemoglobin 9.0 g/dL Hematocrit 28.5 % Mean Corpuscular Volume 92.8 fL Mean Corpuscular Hemoglobin 29.3 pg Mean Corpuscular Hemoglobin Concent 31.6 g/dl RDW Standard Deviation 58.7 fL RDW Coefficient of Variation 17.1 % Platelet Count 281 K/uL Mean Platelet Volume 9.4 fL Procalcitonin 4.19 ng/ml Vancomycin Level Trough 20.9 mcg/ml Assessment and Plan Acute Hypoxic Respiratory Failure and Severe Sepsis secondary to Aspiration Pneumonia 10/13 * question of aspiration pneumonia * required ICU earlier in the admission * CXR suggested pneumonia vs. pulmonary edema - on broad spectrum antibiotics, including Imipenem * cultures thus far are negative * appreciate ID input - for now, Imipenem for 2 more days Acute Diastolic CHF * due to acute hypoxic events - was given IV Lasix for congestion * currently euvolemic * monitor fluid status, may need maintenance diuretics Hx. of DVT and PE * CT chest finding of small pulmonary embolism in the right lung * not an anticoagulation candidate due to bleed risk Hx. of TAVR * Status post bioprosthetic aortic valve replacement * Patient does not need to be on chronic anticoagulation Multifactorial Anemia * s/p one unit pRBCs * Presented with symptomatic anemia/secondary to GI bleed * EGD done on October 05 by GI - no active GI bleeding noted, large hiatal hernia noted Acute Kidney Injury superimposed on CKD stage 3 * Creatinine peaked at 1.94 * likely secondary to IV Lasix/diuresis as well as possible contrast induced MYRTLE * creatinine improving to <1.0 DVT ppx * SCDs/TEDs FULL CODE after discussion with son and patient PT/OT - plan for discharge in 2-3 days
[2017-10-14] MEDS: METOPROLOL SUCC 25MG EXT REL TAB PO SCH ×2 (07:39→20:25)
[2017-10-14] MEDS: LACTOBACILLUS ACIDOPHILUS (FLORANEX) TAB PO SCH ×3 (07:42→16:42)
[2017-10-14] MEDS: OXYCODONE/ACETAMINOPHEN 5-325 TAB PO PRN ×3 (07:49→21:17)
[2017-10-14] MEDS: FUROSEMIDE 40 MG TAB PO SCH (07:50)
[2017-10-14] MEDS ORDERED: MAGNESIUM SULFATE 1GM / D5W 1 GM in PREMIXED IN D5W 100 ML IV ONE (08:15)
[2017-10-14] MEDS: CHECK FENTANYL PATCH PLACEMENT SCH ×3 (09:35→23:23)
[2017-10-14] MEDS: SUCRALFATE 1 GM/10 ML UDC PO SCH ×4 (09:36→20:23)
[2017-10-14] MEDS: FLUTICASONE/SALMETEROL 250/50 (ADVAIR) 14 PUFF/1 INHALER INH SCH ×2 (09:36→20:24)
[2017-10-14] MEDS: POLYETHYLENE (MIRALAX) 17 GM PACK PO SCH (09:37)
[2017-10-14] MEDS: FERROUS SULFATE 325 MG TAB PO SCH ×2 (09:37→20:24)
[2017-10-14] MEDS: GUAIFENESIN 600 MG TABCR PO SCH ×2 (09:38→20:24)
[2017-10-14] MEDS: GABAPENTIN 100 MG CAP PO SCH (09:38)
[2017-10-14] MEDS: DOCUSATE SODIUM/SENNA 50/8.6MG TAB PO SCH (09:39)
[2017-10-14] MEDS: PAROXETINE 20 MG TAB PO SCH (09:39)
[2017-10-14] MEDS: POTASSIUM CHLORIDE 10 MEQ TABCR PO SCH ×2 (09:39→20:27)
[2017-10-14] MEDS: MAGNESIUM OXIDE 400 MG TAB PO SCH (09:40)
[2017-10-14] MEDS: PANTOprazole SOD 40 MG TAB PO SCH ×2 (09:40→20:25)
[2017-10-14] MEDS: LIDODERM (LIDOCAINE) PATCH 5% TD SCH (09:41)
--- NOTE | 2017-10-14 18:01 | Progress Note ---
Subjective Date of Service: Oct 14, 2017. Subjective Pt evaluation today including: conversation w/ patient, physical exam, lab review, review of studies, review of inpatient medication list Saw/examined the patient in room 258 She's doing well - no shortness of breath bilateral knee pain, which is chronic +anxiety Problem List Medical Problems: (1) Acute kidney injury Status: Acute (2) Ambulatory dysfunction Status: Acute (3) Anemia Status: Chronic (4) Anticoagulated on Coumadin Status: Acute (5) Anticoagulated on Coumadin Status: Acute (6) Bronchitis with bronchospasm Status: Acute (7) Change in mental status Status: Acute (8) Contusion of left knee Status: Acute (9) Creatinine elevation Status: Acute (10) Dehydration Status: Acute (11) Dehydration Status: Acute (12) Dehydration Status: Acute (13) Dyspnea Status: Acute (14) Dyspnea Status: Acute (15) GI bleed Status: Acute (16) GI bleed Status: Acute (17) Hypotension Status: Acute (18) Melena Status: Acute (19) Pulmonary embolism Status: Acute (20) SBO (small bowel obstruction) Status: Acute (21) Sepsis due to urinary tract infection Status: Acute (22) Small bowel obstruction Status: Acute (23) Small bowel obstruction Status: Acute (24) SOB (shortness of breath) Status: Acute (25) Subtherapeutic international normalized ratio (INR) Status: Acute (26) Symptomatic anemia Status: Acute (27) Symptomatic anemia Status: Acute (28) Upper GI bleed Status: Acute (29) Urinary tract infection Status: Acute (30) UTI (urinary tract infection) Status: Acute (31) Weakness Status: Acute (32) Weakness Status: Acute Review of Systems Constitutional: No fever, No chills Respiratory: No cough, No sputum, No shortness of breath Cardiac: No chest pain Musculoskeletal: + see HPI, + joint pain Psychiatric: + anxiety Medications Current Inpatient Medications Medications (Trade) Dose Ordered Sig/Rosi Route Start Time Stop Time Status Last Admin Dose Admin Al Hydrox/Mg Hydrox/Simethicone (Maalox Max Susp) 15 ml Q4H PRN PO 10/02/17 21:00 11/01/17 20:59 Magnesium Hydroxide (Milk Of Magnesia Susp) 30 ml Q12H PRN PO 10/02/17 21:00 11/01/17 20:59 Ondansetron HCl (Zofran Inj) 4 mg Q6H PRN IV 10/02/17 21:00 11/01/17 20:59 10/08/17 06:31 4 MG Nitroglycerin (Nitrostat Tab) 0.4 mg UD PRN SL 10/02/17 21:00 11/01/17 20:59 Ferrous Sulfate (Feosol Tab) 325 mg BID PO 10/03/17 09:00 11/02/17 08:59 10/14/17 09:37 325 MG Salmeterol Xinafoate/ Fluticasone (Advair Diskus 250/50 Inh) 1 puff BID INH 10/03/17 09:00 11/02/17 08:59 10/14/17 09:36 1 PUFF Gabapentin (Neurontin Cap) 100 mg DAILY PO 10/03/17 09:00 11/02/17 08:59 10/14/17 09:38 100 MG Lactobacillus Acidophilus (Floranex Tab) 1 tab TIDM PO 10/03/17 07:30 11/02/17 07:29 10/14/17 16:42 1 TAB Lorazepam (Ativan Tab) 0.5 mg HS PRN PO 10/02/17 21:15 11/01/17 21:14 10/12/17 22:13 0.5 MG Magnesium Oxide (Mag-Ox Tab) 400 mg DAILY PO 10/03/17 09:00 11/02/17 08:59 10/14/17 09:40 400 MG Metoprolol Succinate (Toprol Xl Tab) 12.5 mg BID PO 10/03/17 09:00 11/02/17 08:59 10/14/17 07:39 12.5 MG Mirtazapine (Remeron Solutab) 15 mg HS PO 10/03/17 21:00 11/02/17 20:59 10/13/17 20:42 15 MG Paroxetine HCl (pAXil TAB) 40 mg DAILY PO 10/03/17 09:00 11/02/17 08:59 10/14/17 09:39 40 MG Potassium Chloride (Klor-Con M10) 10 meq BID PO 10/03/17 09:00 11/02/17 08:59 10/14/17 09:39 10 MEQ Ranitidine HCl (zANTac TAB) 300 mg HS PO 10/03/17 21:00 11/02/17 20:59 10/13/17 20:45 300 MG Sucralfate (Carafate Susp) 1 gm QID PO 10/03/17 17:00 11/02/17 16:59 10/14/17 16:42 1 GM Lidocaine (Lidoderm Patch 5%) 1 patch QAM TD 10/05/17 09:00 11/04/17 08:59 10/14/17 09:41 1 PATCH Miscellaneous (Remove Lidoderm Patch) 1 ea DAILY@21 N/A 10/04/17 21:00 11/03/17 20:59 10/13/17 20:43 1 EA Pantoprazole Sodium (Protonix Tab) 40 mg BID PO 10/05/17 21:00 11/04/17 20:59 10/14/17 09:40 40 MG Prednisone (PredniSONE TAB) 5 mg DAILY PO 10/07/17 09:00 11/06/17 08:59 10/14/17 09:39 5 MG Ipratropium [place] (Atrovent 0.02% 0.5MG/2.5ML Neb) 0.5 mg Q2R PRN INH 10/08/17 08:00 11/07/17 07:59 Levalbuterol (Xopenex 1.25MG/ 0.5ML Neb) 1.25 mg Q2R PRN INH 10/08/17 08:00 11/07/17 07:59 Ipratropium [place] (Atrovent 0.02% 0.5MG/2.5ML Neb) 0.5 mg Q4R INH 10/08/17 20:00 11/07/17 19:59 10/14/17 14:10 0.5 MG Levalbuterol (Xopenex 1.25MG/ 0.5ML Neb) 1.25 mg Q4R INH 10/08/17 20:00 11/07/17 19:59 10/14/17 14:11 1.25 MG Acetylcysteine (Mucomyst 20% Inh Soln) 3 ml Q8R INH 10/08/17 18:00 11/07/17 17:59 10/14/17 14:10 3 ML Fentanyl (Duragesic Patch) 25 mcg Q72H TD 10/09/17 10:00 10/23/17 09:59 10/12/17 10:15 25 MCG Miscellaneous (Fentanyl Patch Remove & Waste) 1 ea Q3D N/A 10/12/17 09:59 11/11/17 09:58 10/12/17 10:15 1 EA Miscellaneous Information (Check Fentanyl Patch Placement) 1 ea QS N/A 10/09/17 16:00 11/08/17 15:59 10/14/17 15:46 1 EA Heparin Sodium (Porcine) (Heparin 10 Unit/ ml 5 ml Flush) 5 ml PRN PRN FLUSH 10/10/17 13:30 11/09/17 13:29 10/14/17 05:11 5 ML Furosemide (Lasix Tab) 40 mg QAM PO 10/11/17 09:00 11/10/17 08:59 10/14/17 07:50 40 MG Imipenem/ Cilastatin Sodium (Consult) 1 ea UD PRN N/A 10/10/17 17:45 11/09/17 17:44 Acetaminophen 100 ml @ 400 mls/hr Q8H PRN IV 10/10/17 18:15 11/09/17 18:14 10/10/17 18:20 400 MLS/HR Oxycodone/ Acetaminophen (Percocet 5-325mg Tab) 2 tab Q4HWA PRN PO 10/11/17 09:30 10/16/17 21:14 10/14/17 14:03 2 TAB Guaifenesin (Mucinex Contr Rel Tab) 600 mg Q12 PO 10/11/17 21:00 11/10/17 20:59 10/14/17 09:38 600 MG Imipenem/ Cilastatin Sodium 300 mg/Dextrose 106 ml @ 106 mls/hr Q6H IV 10/12/17 18:00 10/17/17 17:59 10/14/17 12:02 106 MLS/HR Polyethylene (Miralax Powder Packet) 17 gm DAILY PO 10/14/17 09:00 11/01/17 20:59 Senna/Docusate Sodium (Senokot S Tab) 1 tab QAM PO 10/14/17 09:00 11/13/17 08:59 Senna (Senokot Tab) 8.6 mg QPM PO 10/13/17 21:00 11/12/17 20:59 3/13/18 20:41 8.6 MG Bisacodyl (Dulcolax Tab) 5 mg BID PRN PO 10/13/17 17:45 11/12/17 17:44 Objective Vital Signs Date Time Temp Pulse Resp B/P (MAP) Pulse Ox O2 Delivery O2 Flow Rate FiO2 10/14/17 15:09 36.7 100 18 150/83 (105) 97 Nasal Cannula 3.0 10/14/17 14:11 91 18 95 Nasal Cannula 3.0 10/14/17 11:03 77 18 94 Nasal Cannula 3.0 10/14/17 09:51 161/82 (108) 10/14/17 08:45 95 Nasal Cannula 3.0 10/14/17 07:37 96 171/80 (110) 10/14/17 07:08 36.9 90 16 180/101 (127) 97 3.0 10/14/17 07:03 72 18 91 Nasal Cannula 3.0 10/14/17 00:00 96 Nasal Cannula 3.0 98 10/13/17 23:14 83 18 96 Nasal Cannula 3.0 10/13/17 23:10 36.6 84 18 109/58 (75) 91 Nasal Cannula 3.0 10/13/17 19:23 90 21 93 Nasal Cannula 3.0 Physical Exam General Appearance: no apparent distress, + pertinent finding (+anxious) Respiratory/Chest: chest non-tender, lungs clear, normal breath sounds, no respiratory distress, no accessory muscle use Cardiovascular: regular rate, rhythm Extremities: normal inspection, no pedal edema Neurologic/Psychiatric: no motor/sensory deficits, alert Laboratory Results Last 24 Hours Test 10/14/17 05:10 White Blood Count 8.72 K/uL Red Blood Count 2.87 M/uL Hemoglobin 8.4 g/dL Hematocrit 26.5 % Mean Corpuscular Volume 92.3 fL Mean Corpuscular Hemoglobin 29.3 pg Mean Corpuscular Hemoglobin Concent 31.7 g/dl RDW Standard Deviation 57.8 fL RDW Coefficient of Variation 17.0 % Platelet Count 274 K/uL Mean Platelet Volume 9.1 fL Sodium Level 140 mmol/L Potassium Level 3.7 mmol/L Chloride Level 105 mmol/L Carbon Dioxide Level 28 mmol/L Anion Gap 7.0 mmol/L Blood Urea Nitrogen 19 mg/dl Creatinine 0.94 mg/dl Est Creatinine Clear Calc Drug Dose 38.7 ml/min Estimated GFR () 64.6 Estimated GFR (Non- 55.7 BUN/Creatinine Ratio 20.5 Random Glucose 87 mg/dl Calcium Level 9.4 mg/dl Magnesium Level 1.6 mg/dl Procalcitonin 1.60 ng/ml Assessment and Plan Acute Hypoxic Respiratory Failure and Severe Sepsis secondary to Aspiration Pneumonia 10/14 * doing much better now * last day of Imipenem * would appreciate ID input regarding PO abx. * PT/OT 10/13 * question of aspiration pneumonia * required ICU earlier in the admission * CXR suggested pneumonia vs. pulmonary edema - on broad spectrum antibiotics, including Imipenem * cultures thus far are negative * appreciate ID input - for now, Imipenem for 2 more days Acute Diastolic CHF * due to acute hypoxic events - was given IV Lasix for congestion * currently euvolemic * monitor fluid status, may need maintenance diuretics Hx. of DVT and PE * CT chest finding of small pulmonary embolism in the right lung * not an anticoagulation candidate due to bleed risk Hx. of TAVR * Status post bioprosthetic aortic valve replacement * Patient does not need to be on chronic anticoagulation Multifactorial Anemia * s/p one unit pRBCs * Presented with symptomatic anemia/secondary to GI bleed * EGD done on October 05 by GI - no active GI bleeding noted, large hiatal hernia noted Acute Kidney Injury superimposed on CKD stage 3 * Creatinine peaked at 1.94 * likely secondary to IV Lasix/diuresis as well as possible contrast induced MYRTLE * creatinine improving to <1.0 DVT ppx * SCDs/TEDs FULL CODE after discussion with son and patient PT/OT - plan for discharge in 2-3 days
[2017-10-14] MEDS: RANITIDINE HCL 150 MG TAB PO SCH (20:25)
[2017-10-14] MEDS: SENNA 8.6 MG TAB PO SCH (20:26)
[2017-10-14] MEDS: MIRTAZAPINE SOLTAB 15 MG PO SCH (20:26)
[2017-10-15] VITALS (10 sets, daily range): BP systolic 134–165; BP diastolic 69–78; PULSE 76–91; TEMP 36.6–36.8; O2SAT 92–98
[2017-10-15] MEDS: IMIPENEM/CILASTATIN IV 300 MG in DEXTROSE 5% 100ML 100 ML IV SCH ×3 (00:16→11:53)
[2017-10-15] MEDS: LEVALBUTEROL 1.25MG/0.5ML NEB INH SCH ×6 (03:21→23:19)
[2017-10-15] MEDS: IPRATROPIUM BROMIDE NEB SOLN 0.02% 2.5 ML VIAL INH SCH ×6 (03:21→23:18)
[2017-10-15 05:40] LABS: HEMATOCRIT 25.4 % (37-47); HEMOGLOBIN 8.1 g/dL (12.0-16.0); MEAN CELL VOLUME 91.4 fL (80-100); MEAN CORPUSCULAR HEMOGLOBIN 29.1 pg (25-34); MEAN CORPUSCULAR HGB CONC 31.9 g/dl (32-36); PLATELET COUNT 299 K/uL (130-400); WHITE BLOOD COUNT 7.13 K/uL (4.8-10.8)
[2017-10-15 05:47] LABS: CALCIUM 9.6 mg/dl (8.5-10.1); CREATININE 0.87 mg/dl (0.60-1.20); POTASSIUM 3.7 mmol/L (3.5-5.1)
[2017-10-15] MEDS: OXYCODONE/ACETAMINOPHEN 5-325 TAB PO PRN ×3 (07:11→21:19)
[2017-10-15] MEDS: ACETYLCYSTEINE 20% INHAL SOLN ***DISPENSED BY RESP. INH SCH ×3 (07:20→23:18)
[2017-10-15] MEDS: SUCRALFATE 1 GM/10 ML UDC PO SCH ×4 (08:09→21:01)
[2017-10-15] MEDS: FLUTICASONE/SALMETEROL 250/50 (ADVAIR) 14 PUFF/1 INHALER INH SCH ×2 (08:09→21:01)
[2017-10-15] MEDS: POLYETHYLENE (MIRALAX) 17 GM PACK PO SCH (08:09)
[2017-10-15] MEDS: PANTOprazole SOD 40 MG TAB PO SCH ×2 (08:11→21:02)
[2017-10-15] MEDS: GUAIFENESIN 600 MG TABCR PO SCH ×2 (08:11→21:01)
[2017-10-15] MEDS: LACTOBACILLUS ACIDOPHILUS (FLORANEX) TAB PO SCH ×3 (08:11→17:27)
[2017-10-15] MEDS: FERROUS SULFATE 325 MG TAB PO SCH ×2 (08:11→21:01)
[2017-10-15] MEDS: FUROSEMIDE 40 MG TAB PO SCH (08:12)
[2017-10-15] MEDS: GABAPENTIN 100 MG CAP PO SCH (08:12)
[2017-10-15] MEDS: METOPROLOL SUCC 25MG EXT REL TAB PO SCH ×2 (08:12→21:03)
[2017-10-15] MEDS: PAROXETINE 20 MG TAB PO SCH (08:12)
[2017-10-15] MEDS: MAGNESIUM OXIDE 400 MG TAB PO SCH (08:12)
[2017-10-15] MEDS: CHECK FENTANYL PATCH PLACEMENT SCH ×2 (08:13→16:00)
[2017-10-15] MEDS: POTASSIUM CHLORIDE 10 MEQ TABCR PO SCH ×2 (08:13→21:03)
[2017-10-15] MEDS: DOCUSATE SODIUM/SENNA 50/8.6MG TAB PO SCH (08:14)
[2017-10-15] MEDS: LIDODERM (LIDOCAINE) PATCH 5% TD SCH (08:15)
[2017-10-15] MEDS: FENTANYL 25 MCG/HR TDSY TD SCH (08:30)
[2017-10-15] MEDS: FENTANYL PATCH REMOVE & WASTE SCH (08:30)
--- NOTE | 2017-10-15 17:43 | Progress Note ---
Subjective Date of Service: Oct 15, 2017. Subjective Pt evaluation today including: conversation w/ patient, physical exam, lab review, review of studies, review of inpatient medication list Saw/examined the patient in room 258 She states she's doing well, improved breathing cough is still present, vibration vest helping to bring up sputum Problem List Medical Problems: (1) Acute kidney injury Status: Acute (2) Ambulatory dysfunction Status: Acute (3) Anemia Status: Chronic (4) Anticoagulated on Coumadin Status: Acute (5) Anticoagulated on Coumadin Status: Acute (6) Bronchitis with bronchospasm Status: Acute (7) Change in mental status Status: Acute (8) Contusion of left knee Status: Acute (9) Creatinine elevation Status: Acute (10) Dehydration Status: Acute (11) Dehydration Status: Acute (12) Dehydration Status: Acute (13) Dyspnea Status: Acute (14) Dyspnea Status: Acute (15) GI bleed Status: Acute (16) GI bleed Status: Acute (17) Hypotension Status: Acute (18) Melena Status: Acute (19) Pulmonary embolism Status: Acute (20) SBO (small bowel obstruction) Status: Acute (21) Sepsis due to urinary tract infection Status: Acute (22) Small bowel obstruction Status: Acute (23) Small bowel obstruction Status: Acute (24) SOB (shortness of breath) Status: Acute (25) Subtherapeutic international normalized ratio (INR) Status: Acute (26) Symptomatic anemia Status: Acute (27) Symptomatic anemia Status: Acute (28) Upper GI bleed Status: Acute (29) Urinary tract infection Status: Acute (30) UTI (urinary tract infection) Status: Acute (31) Weakness Status: Acute (32) Weakness Status: Acute Review of Systems Constitutional: No fever, No chills Abdomen: No pain, No nausea, No vomiting, No diarrhea, No constipation Heme: No abnormal bleeding/bruising Medications Current Inpatient Medications Medications (Trade) Dose Ordered Sig/Rosi Route Start Time Stop Time Status Last Admin Dose Admin Al Hydrox/Mg Hydrox/Simethicone (Maalox Max Susp) 15 ml Q4H PRN PO 10/02/17 21:00 11/01/17 20:59 Magnesium Hydroxide (Milk Of Magnesia Susp) 30 ml Q12H PRN PO 10/02/17 21:00 11/01/17 20:59 Ondansetron HCl (Zofran Inj) 4 mg Q6H PRN IV 10/02/17 21:00 11/01/17 20:59 10/08/17 06:31 4 MG Nitroglycerin (Nitrostat Tab) 0.4 mg UD PRN SL 10/02/17 21:00 11/01/17 20:59 Ferrous Sulfate (Feosol Tab) 325 mg BID PO 10/03/17 09:00 11/02/17 08:59 10/15/17 08:11 325 MG Salmeterol Xinafoate/ Fluticasone (Advair Diskus 250/50 Inh) 1 puff BID INH 10/03/17 09:00 11/02/17 08:59 10/15/17 08:09 1 PUFF Gabapentin (Neurontin Cap) 100 mg DAILY PO 10/03/17 09:00 11/02/17 08:59 10/15/17 08:12 100 MG Lactobacillus Acidophilus (Floranex Tab) 1 tab TIDM PO 10/03/17 07:30 11/02/17 07:29 10/15/17 17:27 1 TAB Lorazepam (Ativan Tab) 0.5 mg HS PRN PO 10/02/17 21:15 11/01/17 21:14 10/12/17 22:13 0.5 MG Magnesium Oxide (Mag-Ox Tab) 400 mg DAILY PO 10/03/17 09:00 11/02/17 08:59 10/15/17 08:12 400 MG Metoprolol Succinate (Toprol Xl Tab) 12.5 mg BID PO 10/03/17 09:00 11/02/17 08:59 10/15/17 08:12 12.5 MG Mirtazapine (Remeron Solutab) 15 mg HS PO 10/03/17 21:00 11/02/17 20:59 10/14/17 20:26 15 MG Paroxetine HCl (pAXil TAB) 40 mg DAILY PO 10/03/17 09:00 11/02/17 08:59 10/15/17 08:12 40 MG Potassium Chloride (Klor-Con M10) 10 meq BID PO 10/03/17 09:00 11/02/17 08:59 10/15/17 08:13 10 MEQ Ranitidine HCl (zANTac TAB) 300 mg HS PO 10/03/17 21:00 11/02/17 20:59 10/14/17 20:25 300 MG Sucralfate (Carafate Susp) 1 gm QID PO 10/03/17 17:00 11/02/17 16:59 10/15/17 17:27 1 GM Lidocaine (Lidoderm Patch 5%) 1 patch QAM TD 10/05/17 09:00 11/04/17 08:59 10/15/17 08:15 1 PATCH Miscellaneous (Remove Lidoderm Patch) 1 ea DAILY@21 N/A 10/04/17 21:00 11/03/17 20:59 10/14/17 20:29 1 EA Pantoprazole Sodium (Protonix Tab) 40 mg BID PO 10/05/17 21:00 11/04/17 20:59 10/15/17 08:11 40 MG Prednisone (PredniSONE TAB) 5 mg DAILY PO 10/07/17 09:00 11/06/17 08:59 10/15/17 08:11 5 MG Ipratropium [place] (Atrovent 0.02% 0.5MG/2.5ML Neb) 0.5 mg Q2R PRN INH 10/08/17 08:00 11/07/17 07:59 Levalbuterol (Xopenex 1.25MG/ 0.5ML Neb) 1.25 mg Q2R PRN INH 10/08/17 08:00 11/07/17 07:59 Ipratropium [place] (Atrovent 0.02% 0.5MG/2.5ML Neb) 0.5 mg Q4R INH 10/08/17 20:00 11/07/17 19:59 10/15/17 16:27 0.5 MG Levalbuterol (Xopenex 1.25MG/ 0.5ML Neb) 1.25 mg Q4R INH 10/08/17 20:00 11/07/17 19:59 10/15/17 16:27 1.25 MG Acetylcysteine (Mucomyst 20% Inh Soln) 3 ml Q8R INH 10/08/17 18:00 11/07/17 17:59 10/15/17 16:27 3 ML Fentanyl (Duragesic Patch) 25 mcg Q72H TD 10/09/17 10:00 10/23/17 09:59 10/15/17 08:30 25 MCG Miscellaneous (Fentanyl Patch Remove & Waste) 1 ea Q3D N/A 10/12/17 09:59 11/11/17 09:58 10/15/17 08:30 1 EA Miscellaneous Information (Check Fentanyl Patch Placement) 1 ea QS N/A 10/09/17 16:00 11/08/17 15:59 10/15/17 16:00 1 EA Heparin Sodium (Porcine) (Heparin 10 Unit/ ml 5 ml Flush) 5 ml PRN PRN FLUSH 10/10/17 13:30 11/09/17 13:29 10/15/17 07:12 5 ML Furosemide (Lasix Tab) 40 mg QAM PO 10/11/17 09:00 11/10/17 08:59 10/15/17 08:12 40 MG Acetaminophen 100 ml @ 400 mls/hr Q8H PRN IV 10/10/17 18:15 11/09/17 18:14 10/10/17 18:20 400 MLS/HR Oxycodone/ Acetaminophen (Percocet 5-325mg Tab) 2 tab Q4HWA PRN PO 10/11/17 09:30 10/16/17 21:14 10/15/17 11:54 2 TAB Guaifenesin (Mucinex Contr Rel Tab) 600 mg Q12 PO 10/11/17 21:00 11/10/17 20:59 10/15/17 08:11 600 MG Polyethylene (Miralax Powder Packet) 17 gm DAILY PO 10/14/17 09:00 11/01/17 20:59 10/15/17 08:09 17 GM Senna/Docusate Sodium (Senokot S Tab) 1 tab QAM PO 10/14/17 09:00 11/13/17 08:59 10/15/17 08:14 1 TAB Senna (Senokot Tab) 8.6 mg QPM PO 10/13/17 21:00 11/12/17 20:59 10/14/17 20:26 8.6 MG Bisacodyl (Dulcolax Tab) 5 mg BID PRN PO 10/13/17 17:45 11/12/17 17:44 Objective Vital Signs Date Time Temp Pulse Resp B/P (MAP) Pulse Ox O2 Delivery O2 Flow Rate FiO2 10/15/17 16:00 Nasal Cannula 3.0 10/15/17 15:33 36.6 82 20 165/78 (107) 98 3.0 10/15/17 11:22 88 18 94 Nasal Cannula 3.0 10/15/17 08:22 36.8 91 20 134/78 (96) 95 Nasal Cannula 3.0 10/15/17 08:00 Nasal Cannula 3.0 10/15/17 07:18 84 18 94 Nasal Cannula 3.0 10/15/17 03:21 84 18 92 Nasal Cannula 3.0 10/15/17 00:17 36.6 89 16 137/69 (91) 92 Nasal Cannula 3.0 10/15/17 00:00 Nasal Cannula 3.0 10/14/17 23:05 84 18 95 Nasal Cannula 3.0 10/14/17 19:34 88 18 95 Nasal Cannula 3.0 Physical Exam General Appearance: no apparent distress Respiratory/Chest: lungs clear, normal breath sounds, no respiratory distress, no accessory muscle use Cardiovascular: regular rate, rhythm, no edema, no murmur Extremities: normal inspection, no pedal edema Neurologic/Psychiatric: no motor/sensory deficits, alert, normal mood/affect Laboratory Results Last 24 Hours Test 10/15/17 05:05 White Blood Count 7.13 K/uL Red Blood Count 2.78 M/uL Hemoglobin 8.1 g/dL Hematocrit 25.4 % Mean Corpuscular Volume 91.4 fL Mean Corpuscular Hemoglobin 29.1 pg Mean Corpuscular Hemoglobin Concent 31.9 g/dl Platelet Count 299 K/uL Sodium Level 140 mmol/L Potassium Level 3.7 mmol/L Chloride Level 104 mmol/L Carbon Dioxide Level 29 mmol/L Anion Gap 7.0 mmol/L Blood Urea Nitrogen 20 mg/dl Creatinine 0.87 mg/dl Est Creatinine Clear Calc Drug Dose 40.7 ml/min Estimated GFR () 70.9 Estimated GFR (Non- 61.2 BUN/Creatinine Ratio 23.6 Random Glucose 118 mg/dl Calcium Level 9.6 mg/dl Assessment and Plan Acute Hypoxic Respiratory Failure and Severe Sepsis secondary to Aspiration Pneumonia 10/15 * stopping all antibiotics at this time * will monitor Hgb * possible d/c in AM - disposition - home vs. rehab; family meeting tomorrow 10/14 * doing much better now * last day of Imipenem * would appreciate ID input regarding PO abx. * PT/OT 10/13 * question of aspiration pneumonia * required ICU earlier in the admission * CXR suggested pneumonia vs. pulmonary edema - on broad spectrum antibiotics, including Imipenem * cultures thus far are negative * appreciate ID input - for now, Imipenem for 2 more days Acute Diastolic CHF * due to acute hypoxic events - was given IV Lasix for congestion * currently euvolemic * monitor fluid status, may need maintenance diuretics Hx. of DVT and PE * CT chest finding of small pulmonary embolism in the right lung * not an anticoagulation candidate due to bleed risk Hx. of TAVR * Status post bioprosthetic aortic valve replacement * Patient does not need to be on chronic anticoagulation Multifactorial Anemia * s/p one unit pRBCs * Presented with symptomatic anemia/secondary to GI bleed * EGD done on October 05 by GI - no active GI bleeding noted, large hiatal hernia noted Acute Kidney Injury superimposed on CKD stage 3 * Creatinine peaked at 1.94 * likely secondary to IV Lasix/diuresis as well as possible contrast induced MYRTLE * creatinine improving to <1.0 DVT ppx * SCDs/TEDs FULL CODE after discussion with son and patient PT/OT - plan for discharge in 2-3 days
[2017-10-15] MEDS: RANITIDINE HCL 150 MG TAB PO SCH (21:02)
[2017-10-15] MEDS: MIRTAZAPINE SOLTAB 15 MG PO SCH (21:04)
[2017-10-15] MEDS: SENNA 8.6 MG TAB PO SCH (21:04)
[2017-10-15] MEDS: LORAZEPAM 0.5 MG TAB PO PRN (21:17)
[2017-10-16] VITALS (10 sets, daily range): BP systolic 114; BP diastolic 70; PULSE 79–93; TEMP 37; O2SAT 94–99
[2017-10-16] MEDS: CHECK FENTANYL PATCH PLACEMENT SCH ×3 (00:01→16:28)
[2017-10-16] MEDS: IPRATROPIUM BROMIDE NEB SOLN 0.02% 2.5 ML VIAL INH SCH ×6 (03:52→23:02)
[2017-10-16] MEDS: LEVALBUTEROL 1.25MG/0.5ML NEB INH SCH ×6 (03:52→23:02)
[2017-10-16 05:28] LABS: HEMATOCRIT 28.1 % (37-47); MEAN CELL VOLUME 92.7 fL (80-100); MEAN CORPUSCULAR HEMOGLOBIN 29.7 pg (25-34); PLATELET COUNT 313 K/uL (130-400)
[2017-10-16 05:51] LABS: CALCIUM 10.2 mg/dl (8.5-10.1); CREATININE 0.9 mg/dl (0.60-1.20); POTASSIUM 3.9 mmol/L (3.5-5.1)
[2017-10-16] MEDS: ACETYLCYSTEINE 20% INHAL SOLN ***DISPENSED BY RESP. INH SCH ×3 (07:42→23:02)
[2017-10-16] MEDS: LACTOBACILLUS ACIDOPHILUS (FLORANEX) TAB PO SCH ×3 (08:16→16:42)
[2017-10-16] MEDS: GUAIFENESIN 600 MG TABCR PO SCH ×2 (08:17→19:39)
[2017-10-16] MEDS: METOPROLOL SUCC 25MG EXT REL TAB PO SCH ×2 (08:17→19:39)
[2017-10-16] MEDS: POLYETHYLENE (MIRALAX) 17 GM PACK PO SCH (08:18)
[2017-10-16] MEDS: POTASSIUM CHLORIDE 10 MEQ TABCR PO SCH ×2 (08:18→19:39)
[2017-10-16] MEDS: MAGNESIUM OXIDE 400 MG TAB PO SCH (08:18)
[2017-10-16] MEDS: FERROUS SULFATE 325 MG TAB PO SCH ×2 (08:18→19:39)
[2017-10-16] MEDS: FUROSEMIDE 40 MG TAB PO SCH (08:18)
[2017-10-16] MEDS: DOCUSATE SODIUM/SENNA 50/8.6MG TAB PO SCH (08:19)
[2017-10-16] MEDS: PANTOprazole SOD 40 MG TAB PO SCH ×2 (08:19→19:39)
[2017-10-16] MEDS: SUCRALFATE 1 GM/10 ML UDC PO SCH ×4 (08:20→19:39)
[2017-10-16] MEDS: FLUTICASONE/SALMETEROL 250/50 (ADVAIR) 14 PUFF/1 INHALER INH SCH ×2 (08:21→19:38)
[2017-10-16] MEDS: GABAPENTIN 100 MG CAP PO SCH (08:21)
[2017-10-16] MEDS: PAROXETINE 20 MG TAB PO SCH (08:22)
[2017-10-16] MEDS: LIDODERM (LIDOCAINE) PATCH 5% TD SCH (08:22)
[2017-10-16] MEDS: OXYCODONE/ACETAMINOPHEN 5-325 TAB PO PRN ×3 (08:39→20:11)
--- NOTE | 2017-10-16 16:07 | Pulmonology Progress Note ---
Pulmonary Progress Note Date of Service Oct 16, 2017. Attending Dr. Jarrell Subjective Patient is able set up and have a conversation without auditory fatigue but she did note she continues to have dyspnea on exertion Objective 82-yo female admitted to [facility] with weakness, anemia and pneumonia. 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 Patient admitted to [facility] with c/o weakness and anemia. She improved somewhat with red blood cell resuscitation. She was seen by GI and EDG notable for presbyesophagus but no obvious bleeding. Her GI regimen was escalated. 10/08/17 she acutely decompensated with hypoxic respiratory failure initially treated with BiPAP and diuresis. No CO2 retention on ABG. Her course evolved with development of purulent sputum, Pct: 37.6, and infiltrative changes on imaging and she was treated with broad spectrum antibiotic and pulmonary toilet with VEST and Mucomyst with significant improvement. -10/11/17 pCt: 18.62 - Sputum moderate nL brianna CTA 10/08/17: very small right lung BE - multifocal airspace opacities consolidation ASHLEY and LLL, no adenopathy. Large hiatal hernia. - Video Swallow - minimal thin liquid tracheal aspiration Physical Exam: Constitutional: Chronically ill appearing elderly female lying in hospital bed. NAD Head: + facial symmetry, pale conjunctiva. EOMi. Respiratory: Loose cough on exam with bilateral rales. No wheeze. CV: Regular rate and rhythm. I/ systolic murmur. +2 DP bilaterally. Warm and perfused peripherally Neurologic: Wakened to voice. Slightly disoriented but answers questions when prompted. Pleasant and cooperative. Assessment & Plan 82-yo female with multiple medical comorbidities admitted with weakness, anemia and pneumonia - swallow study consistent with thin liquid aspiration today. 1. Continue aggressive pulmonary toilet - HOB 30-degree, VEST + and expectorant as tolerated 2. Continue scheduled bronchodilators + Advair 250/50 3. Aspiration: Speech therapy and antimicrobial aspiration coverage (per ID) Signoff: At this time the pulmonary service will sign off please contact us if the patient has any clinical changes. Data Medications: Current Inpatient Medications Medications (Trade) Dose Ordered Sig/Rosi Route Start Time Stop Time Status Last Admin Dose Admin Al Hydrox/Mg Hydrox/Simethicone (Maalox Max Susp) 15 ml Q4H PRN PO 10/02/17 21:00 11/01/17 20:59 Magnesium Hydroxide (Milk Of Magnesia Susp) 30 ml Q12H PRN PO 10/02/17 21:00 11/01/17 20:59 Ondansetron HCl (Zofran Inj) 4 mg Q6H PRN IV 10/02/17 21:00 11/01/17 20:59 10/08/17 06:31 4 MG Nitroglycerin (Nitrostat Tab) 0.4 mg UD PRN SL 10/02/17 21:00 11/01/17 20:59 Ferrous Sulfate (Feosol Tab) 325 mg BID PO 10/03/17 09:00 11/02/17 08:59 10/16/17 08:18 325 MG Salmeterol Xinafoate/ Fluticasone (Advair Diskus 250/50 Inh) 1 puff BID INH 10/03/17 09:00 11/02/17 08:59 10/16/17 08:21 1 PUFF Gabapentin (Neurontin Cap) 100 mg DAILY PO 10/03/17 09:00 11/02/17 08:59 10/16/17 08:21 100 MG Lactobacillus Acidophilus (Floranex Tab) 1 tab TIDM PO 10/03/17 07:30 11/02/17 07:29 10/16/17 12:07 1 TAB Lorazepam (Ativan Tab) 0.5 mg HS PRN PO 10/02/17 21:15 11/01/17 21:14 10/15/17 21:17 0.5 MG Magnesium Oxide (Mag-Ox Tab) 400 mg DAILY PO 10/03/17 09:00 11/02/17 08:59 10/16/17 08:18 400 MG Metoprolol Succinate (Toprol Xl Tab) 12.5 mg BID PO 10/03/17 09:00 11/02/17 08:59 10/16/17 08:17 12.5 MG Mirtazapine (Remeron Solutab) 15 mg HS PO 10/03/17 21:00 11/02/17 20:59 10/15/17 21:04 15 MG Paroxetine HCl (pAXil TAB) 40 mg DAILY PO 10/03/17 09:00 11/02/17 08:59 10/16/17 08:22 40 MG Potassium Chloride (Klor-Con M10) 10 meq BID PO 10/03/17 09:00 11/02/17 08:59 10/16/17 08:18 10 MEQ Ranitidine HCl (zANTac TAB) 300 mg HS PO 10/03/17 21:00 11/02/17 20:59 10/15/17 21:02 300 MG Sucralfate (Carafate Susp) 1 gm QID PO 10/03/17 17:00 11/02/17 16:59 10/16/17 12:06 1 GM Lidocaine (Lidoderm Patch 5%) 1 patch QAM TD 10/05/17 09:00 11/04/17 08:59 10/16/17 08:22 1 PATCH Miscellaneous (Remove Lidoderm Patch) 1 ea DAILY@21 N/A 10/04/17 21:00 11/03/17 20:59 10/15/17 21:23 1 EA Pantoprazole Sodium (Protonix Tab) 40 mg BID PO 10/05/17 21:00 11/04/17 20:59 10/16/17 08:19 40 MG Prednisone (PredniSONE TAB) 5 mg DAILY PO 10/07/17 09:00 11/06/17 08:59 10/16/17 08:20 5 MG Ipratropium [place] (Atrovent 0.02% 0.5MG/2.5ML Neb) 0.5 mg Q2R PRN INH 10/08/17 08:00 11/07/17 07:59 Levalbuterol (Xopenex 1.25MG/ 0.5ML Neb) 1.25 mg Q2R PRN INH 10/08/17 08:00 11/07/17 07:59 Ipratropium [place] (Atrovent 0.02% 0.5MG/2.5ML Neb) 0.5 mg Q4R INH 10/08/17 20:00 11/07/17 19:59 10/16/17 12:05 0.5 MG Levalbuterol (Xopenex 1.25MG/ 0.5ML Neb) 1.25 mg Q4R INH 10/08/17 20:00 11/07/17 19:59 10/16/17 12:05 1.25 MG Acetylcysteine (Mucomyst 20% Inh Soln) 3 ml Q8R INH 10/08/17 18:00 11/07/17 17:59 10/16/17 07:42 3 ML Fentanyl (Duragesic Patch) 25 mcg Q72H TD 10/09/17 10:00 10/23/17 09:59 10/15/17 08:30 25 MCG Miscellaneous (Fentanyl Patch Remove & Waste) 1 ea Q3D N/A 10/12/17 09:59 11/11/17 09:58 10/15/17 08:30 1 EA Miscellaneous Information (Check Fentanyl Patch Placement) 1 ea QS N/A 10/09/17 16:00 11/08/17 15:59 10/16/17 08:16 1 EA Heparin Sodium (Porcine) (Heparin 10 Unit/ ml 5 ml Flush) 5 ml PRN PRN FLUSH 10/10/17 13:30 11/09/17 13:29 10/15/17 07:12 5 ML Furosemide (Lasix Tab) 40 mg QAM PO 10/11/17 09:00 11/10/17 08:59 10/16/17 08:18 40 MG Acetaminophen 100 ml @ 400 mls/hr Q8H PRN IV 10/10/17 18:15 11/09/17 18:14 10/10/17 18:20 400 MLS/HR Oxycodone/ Acetaminophen (Percocet 5-325mg Tab) 2 tab Q4HWA PRN PO 10/11/17 09:30 10/16/17 21:14 10/16/17 08:39 2 TAB Guaifenesin (Mucinex Contr Rel Tab) 600 mg Q12 PO 10/11/17 21:00 11/10/17 20:59 10/16/17 08:17 600 MG Polyethylene (Miralax Powder Packet) 17 gm DAILY PO 10/14/17 09:00 11/01/17 20:59 10/15/17 08:09 17 GM Senna/Docusate Sodium (Senokot S Tab) 1 tab QAM PO 10/14/17 09:00 11/13/17 08:59 10/15/17 08:14 1 TAB Senna (Senokot Tab) 8.6 mg QPM PO 10/13/17 21:00 11/12/17 20:59 10/15/17 21:04 8.6 MG Bisacodyl (Dulcolax Tab) 5 mg BID PRN PO 10/13/17 17:45 11/12/17 17:44 I & O: 24-Hour Column 10/17/17 08:00 Intake Total 1250 ml Output Total 1500 ml Balance -250 ml Vital Signs: Date Time Temp Pulse Resp B/P (MAP) Pulse Ox O2 Delivery O2 Flow Rate FiO2 10/16/17 14:48 37.0 86 20 114/70 (85) 99 10/16/17 12:06 82 16 96 Nasal Cannula 3.0 10/16/17 08:00 96 Nasal Cannula 3.0 98 10/16/17 07:42 82 16 96 Nasal Cannula 3.0 10/16/17 03:53 79 16 97 Nasal Cannula 3.0 10/16/17 00:00 97 Nasal Cannula 3.0 10/15/17 23:31 36.6 85 16 159/70 (99) 98 Nasal Cannula 3.0 10/15/17 23:19 76 18 97 Nasal Cannula 3.0 10/15/17 20:00 97 Nasal Cannula 3.0 10/15/17 19:30 83 18 96 Nasal Cannula 3.0 10/15/17 16:00 Nasal Cannula 3.0 10/15/17 15:33 36.6 82 20 165/78 (107) 98 3.0 Laboratory Results: Last 24 Hours Test 10/16/17 05:08 White Blood Count 7.40 K/uL Red Blood Count 3.03 M/uL Hemoglobin 9.0 g/dL Hematocrit 28.1 % Mean Corpuscular Volume 92.7 fL Mean Corpuscular Hemoglobin 29.7 pg Mean Corpuscular Hemoglobin Concent 32.0 g/dl RDW Standard Deviation 58.0 fL RDW Coefficient of Variation 17.0 % Platelet Count 313 K/uL Mean Platelet Volume 9.0 fL Sodium Level 138 mmol/L Potassium Level 3.9 mmol/L Chloride Level 102 mmol/L Carbon Dioxide Level 33 mmol/L Anion Gap 3.0 mmol/L Blood Urea Nitrogen 18 mg/dl Creatinine 0.90 mg/dl Est Creatinine Clear Calc Drug Dose 40.4 ml/min Estimated GFR () 68.1 Estimated GFR (Non- 58.7 BUN/Creatinine Ratio 20.3 Random Glucose 92 mg/dl Calcium Level 10.2 mg/dl Magnesium Level 1.7 mg/dl
[2017-10-16] MEDS ORDERED: MAGNESIUM SULFATE 1GM / D5W 1 GM in PREMIXED IN D5W 100 ML IV ONE (18:00)
[2017-10-16] MEDS: ONDANSETRON INJ 2 MG/ML 2 ML VIAL IV PRN (18:09)
--- NOTE | 2017-10-16 18:59 | Progress Note ---
Subjective Date of Service: Oct 16, 2017. Subjective Pt evaluation today including: conversation w/ patient, physical exam, lab review, review of studies, review of inpatient medication list Saw/examined the patient in room 258 She has some nausea and vomiting of liquids this evening. Does not want to stay in the hospital or go to rehab Son also in the room and talked to patient regarding disposition; she is now agreeable to [facility] Problem List Medical Problems: (1) Acute kidney injury Status: Acute (2) Ambulatory dysfunction Status: Acute (3) Anemia Status: Chronic (4) Anticoagulated on Coumadin Status: Acute (5) Anticoagulated on Coumadin Status: Acute (6) Bronchitis with bronchospasm Status: Acute (7) Change in mental status Status: Acute (8) Contusion of left knee Status: Acute (9) Creatinine elevation Status: Acute (10) Dehydration Status: Acute (11) Dehydration Status: Acute (12) Dehydration Status: Acute (13) Dyspnea Status: Acute (14) Dyspnea Status: Acute (15) GI bleed Status: Acute (16) GI bleed Status: Acute (17) Hypotension Status: Acute (18) Melena Status: Acute (19) Pulmonary embolism Status: Acute (20) SBO (small bowel obstruction) Status: Acute (21) Sepsis due to urinary tract infection Status: Acute (22) Small bowel obstruction Status: Acute (23) Small bowel obstruction Status: Acute (24) SOB (shortness of breath) Status: Acute (25) Subtherapeutic international normalized ratio (INR) Status: Acute (26) Symptomatic anemia Status: Acute (27) Symptomatic anemia Status: Acute (28) Upper GI bleed Status: Acute (29) Urinary tract infection Status: Acute (30) UTI (urinary tract infection) Status: Acute (31) Weakness Status: Acute (32) Weakness Status: Acute Review of Systems Constitutional: + weakness, + fatigue, No fever, No chills Respiratory: No cough, No sputum, No shortness of breath Cardiac: No chest pain, No edema, No palpitations Abdomen: + nausea, + vomiting, No pain, No diarrhea Medications Current Inpatient Medications Medications (Trade) Dose Ordered Sig/Rosi Route Start Time Stop Time Status Last Admin Dose Admin Al Hydrox/Mg Hydrox/Simethicone (Maalox Max Susp) 15 ml Q4H PRN PO 10/02/17 21:00 11/01/17 20:59 Magnesium Hydroxide (Milk Of Magnesia Susp) 30 ml Q12H PRN PO 10/02/17 21:00 11/01/17 20:59 Ondansetron HCl (Zofran Inj) 4 mg Q6H PRN IV 10/02/17 21:00 11/01/17 20:59 10/16/17 18:09 4 MG Nitroglycerin (Nitrostat Tab) 0.4 mg UD PRN SL 10/02/17 21:00 11/01/17 20:59 Ferrous Sulfate (Feosol Tab) 325 mg BID PO 10/03/17 09:00 11/02/17 08:59 10/16/17 08:18 325 MG Salmeterol Xinafoate/ Fluticasone (Advair Diskus 250/50 Inh) 1 puff BID INH 10/03/17 09:00 11/02/17 08:59 10/16/17 08:21 1 PUFF Gabapentin (Neurontin Cap) 100 mg DAILY PO 10/03/17 09:00 11/02/17 08:59 10/16/17 08:21 100 MG Lactobacillus Acidophilus (Floranex Tab) 1 tab TIDM PO 10/03/17 07:30 11/02/17 07:29 10/16/17 16:42 1 TAB Lorazepam (Ativan Tab) 0.5 mg HS PRN PO 10/02/17 21:15 11/01/17 21:14 10/15/17 21:17 0.5 MG Magnesium Oxide (Mag-Ox Tab) 400 mg DAILY PO 10/03/17 09:00 11/02/17 08:59 10/16/17 08:18 400 MG Metoprolol Succinate (Toprol Xl Tab) 12.5 mg BID PO 10/03/17 09:00 11/02/17 08:59 10/16/17 08:17 12.5 MG Mirtazapine (Remeron Solutab) 15 mg HS PO 10/03/17 21:00 11/02/17 20:59 10/15/17 21:04 15 MG Paroxetine HCl (pAXil TAB) 40 mg DAILY PO 10/03/17 09:00 11/02/17 08:59 10/16/17 08:22 40 MG Potassium Chloride (Klor-Con M10) 10 meq BID PO 10/03/17 09:00 11/02/17 08:59 10/16/17 08:18 10 MEQ Ranitidine HCl (zANTac TAB) 300 mg HS PO 10/03/17 21:00 11/02/17 20:59 10/15/17 21:02 300 MG Sucralfate (Carafate Susp) 1 gm QID PO 10/03/17 17:00 11/02/17 16:59 10/16/17 16:42 1 GM Lidocaine (Lidoderm Patch 5%) 1 patch QAM TD 10/05/17 09:00 11/04/17 08:59 10/16/17 08:22 1 PATCH Miscellaneous (Remove Lidoderm Patch) 1 ea DAILY@21 N/A 10/04/17 21:00 11/03/17 20:59 10/15/17 21:23 1 EA Pantoprazole Sodium (Protonix Tab) 40 mg BID PO 10/05/17 21:00 11/04/17 20:59 10/16/17 08:19 40 MG Prednisone (PredniSONE TAB) 5 mg DAILY PO 10/07/17 09:00 11/06/17 08:59 10/16/17 08:20 5 MG Ipratropium [place] (Atrovent 0.02% 0.5MG/2.5ML Neb) 0.5 mg Q2R PRN INH 10/08/17 08:00 11/07/17 07:59 Levalbuterol (Xopenex 1.25MG/ 0.5ML Neb) 1.25 mg Q2R PRN INH 10/08/17 08:00 11/07/17 07:59 Ipratropium [place] (Atrovent 0.02% 0.5MG/2.5ML Neb) 0.5 mg Q4R INH 10/08/17 20:00 11/07/17 19:59 10/16/17 15:51 0.5 MG Levalbuterol (Xopenex 1.25MG/ 0.5ML Neb) 1.25 mg Q4R INH 10/08/17 20:00 11/07/17 19:59 10/16/17 15:51 1.25 MG Acetylcysteine (Mucomyst 20% Inh Soln) 3 ml Q8R INH 10/08/17 18:00 11/07/17 17:59 10/16/17 15:51 3 ML Fentanyl (Duragesic Patch) 25 mcg Q72H TD 10/09/17 10:00 10/23/17 09:59 10/15/17 08:30 25 MCG Miscellaneous (Fentanyl Patch Remove & Waste) 1 ea Q3D N/A 10/12/17 09:59 11/11/17 09:58 10/15/17 08:30 1 EA Miscellaneous Information (Check Fentanyl Patch Placement) 1 ea QS N/A 10/09/17 16:00 11/08/17 15:59 10/16/17 16:28 1 EA Heparin Sodium (Porcine) (Heparin 10 Unit/ ml 5 ml Flush) 5 ml PRN PRN FLUSH 10/10/17 13:30 11/09/17 13:29 10/15/17 07:12 5 ML Furosemide (Lasix Tab) 40 mg QAM PO 10/11/17 09:00 11/10/17 08:59 10/16/17 08:18 40 MG Acetaminophen 100 ml @ 400 mls/hr Q8H PRN IV 10/10/17 18:15 11/09/17 18:14 10/10/17 18:20 400 MLS/HR Oxycodone/ Acetaminophen (Percocet 5-325mg Tab) 2 tab Q4HWA PRN PO 10/11/17 09:30 10/16/17 21:14 10/16/17 15:23 2 TAB Guaifenesin (Mucinex Contr Rel Tab) 600 mg Q12 PO 10/11/17 21:00 11/10/17 20:59 10/16/17 08:17 600 MG Polyethylene (Miralax Powder Packet) 17 gm DAILY PO 10/14/17 09:00 11/01/17 20:59 10/15/17 08:09 17 GM Senna/Docusate Sodium (Senokot S Tab) 1 tab QAM PO 10/14/17 09:00 11/13/17 08:59 10/15/17 08:14 1 TAB Senna (Senokot Tab) 8.6 mg QPM PO 10/13/17 21:00 11/12/17 20:59 10/15/17 21:04 8.6 MG Bisacodyl (Dulcolax Tab) 5 mg BID PRN PO 10/13/17 17:45 11/12/17 17:44 Magnesium Sulfate 1 gm/Prmx 100 ml @ 100 mls/hr 1800 ONCE IV 10/16/17 18:00 10/16/17 18:59 10/16/17 18:21 100 MLS/HR Objective Vital Signs Date Time Temp Pulse Resp B/P (MAP) Pulse Ox O2 Delivery O2 Flow Rate FiO2 10/16/17 15:51 93 16 98 Nasal Cannula 3.0 10/16/17 15:50 96 Nasal Cannula 3.0 98 10/16/17 14:48 37.0 86 20 114/70 (85) 99 10/16/17 12:06 82 16 96 Nasal Cannula 3.0 10/16/17 08:00 96 Nasal Cannula 3.0 98 10/16/17 07:42 82 16 96 Nasal Cannula 3.0 10/16/17 03:53 79 16 97 Nasal Cannula 3.0 10/16/17 00:00 97 Nasal Cannula 3.0 10/15/17 23:31 36.6 85 16 159/70 (99) 98 Nasal Cannula 3.0 10/15/17 23:19 76 18 97 Nasal Cannula 3.0 10/15/17 20:00 97 Nasal Cannula 3.0 10/15/17 19:30 83 18 96 Nasal Cannula 3.0 Physical Exam General Appearance: no apparent distress Respiratory/Chest: no respiratory distress, no accessory muscle use Cardiovascular: regular rate, rhythm Extremities: normal inspection, no pedal edema Neurologic/Psychiatric: no motor/sensory deficits, alert, normal mood/affect Laboratory Results Last 24 Hours Test 10/16/17 05:08 White Blood Count 7.40 K/uL Red Blood Count 3.03 M/uL Hemoglobin 9.0 g/dL Hematocrit 28.1 % Mean Corpuscular Volume 92.7 fL Mean Corpuscular Hemoglobin 29.7 pg Mean Corpuscular Hemoglobin Concent 32.0 g/dl RDW Standard Deviation 58.0 fL RDW Coefficient of Variation 17.0 % Platelet Count 313 K/uL Mean Platelet Volume 9.0 fL Sodium Level 138 mmol/L Potassium Level 3.9 mmol/L Chloride Level 102 mmol/L Carbon Dioxide Level 33 mmol/L Anion Gap 3.0 mmol/L Blood Urea Nitrogen 18 mg/dl Creatinine 0.90 mg/dl Est Creatinine Clear Calc Drug Dose 40.4 ml/min Estimated GFR () 68.1 Estimated GFR (Non- 58.7 BUN/Creatinine Ratio 20.3 Random Glucose 92 mg/dl Calcium Level 10.2 mg/dl Magnesium Level 1.7 mg/dl Assessment and Plan Acute on Chronic Hypoxic Respiratory Failure and Severe Sepsis secondary to Aspiration Pneumonia 10/16 * patient is doing well - no breathing issues * back on her baseline of 2-2.5L of supplemental O2 * No other complaints at this time 10/15 * stopping all antibiotics at this time * will monitor Hgb * possible d/c in AM - disposition - home vs. rehab; family meeting tomorrow 10/14 * doing much better now * last day of Imipenem * would appreciate ID input regarding PO abx. * PT/OT 10/13 * question of aspiration pneumonia * required ICU earlier in the admission * CXR suggested pneumonia vs. pulmonary edema - on broad spectrum antibiotics, including Imipenem * cultures thus far are negative * appreciate ID input - for now, Imipenem for 2 more days Acute Diastolic CHF * due to acute hypoxic events - was given IV Lasix for congestion * currently euvolemic * monitor fluid status, may need maintenance diuretics Hx. of DVT and PE * CT chest finding of small pulmonary embolism in the right lung * not an anticoagulation candidate due to bleed risk Hx. of TAVR * Status post bioprosthetic aortic valve replacement * Patient does not need to be on chronic anticoagulation Multifactorial Anemia * s/p one unit pRBCs * Presented with symptomatic anemia/secondary to GI bleed * EGD done on October 05 by GI - no active GI bleeding noted, large hiatal hernia noted Acute Kidney Injury superimposed on CKD stage 3 * Creatinine peaked at 1.94 * likely secondary to IV Lasix/diuresis as well as possible contrast induced MYRTLE * creatinine improving to <1.0 DVT ppx * SCDs/TEDs FULL CODE after discussion with son and patient patient is agreeable to go to [facility] discharge planning eval re-ordered
[2017-10-16] MEDS: SENNA 8.6 MG TAB PO SCH (19:39)
[2017-10-16] MEDS: RANITIDINE HCL 150 MG TAB PO SCH (19:39)
[2017-10-16] MEDS: MIRTAZAPINE SOLTAB 15 MG PO SCH (19:40)
[2017-10-17] VITALS (11 sets, daily range): BP systolic 116–199; BP diastolic 63–97; PULSE 80–93; TEMP 36.6–36.8; O2SAT 91–96
[2017-10-17] MEDS: CHECK FENTANYL PATCH PLACEMENT SCH ×4 (00:46→23:56)
[2017-10-17] MEDS: LEVALBUTEROL 1.25MG/0.5ML NEB INH SCH ×6 (04:00→23:12)
[2017-10-17] MEDS: IPRATROPIUM BROMIDE NEB SOLN 0.02% 2.5 ML VIAL INH SCH ×6 (04:00→23:12)
[2017-10-17] MEDS: OXYCODONE/ACETAMINOPHEN 5-325 TAB PO PRN ×2 (07:19→13:40)
[2017-10-17] MEDS: ACETYLCYSTEINE 20% INHAL SOLN ***DISPENSED BY RESP. INH SCH ×3 (07:24→23:12)
[2017-10-17] MEDS: POLYETHYLENE (MIRALAX) 17 GM PACK PO SCH (09:06)
[2017-10-17] MEDS: LACTOBACILLUS ACIDOPHILUS (FLORANEX) TAB PO SCH ×3 (09:07→17:22)
[2017-10-17] MEDS: SUCRALFATE 1 GM/10 ML UDC PO SCH ×4 (09:08→20:08)
[2017-10-17] MEDS: FLUTICASONE/SALMETEROL 250/50 (ADVAIR) 14 PUFF/1 INHALER INH SCH ×2 (09:08→20:10)
[2017-10-17] MEDS: FERROUS SULFATE 325 MG TAB PO SCH ×2 (09:08→20:11)
[2017-10-17] MEDS: POTASSIUM CHLORIDE 10 MEQ TABCR PO SCH ×2 (09:09→20:14)
[2017-10-17] MEDS: MAGNESIUM OXIDE 400 MG TAB PO SCH (09:10)
[2017-10-17] MEDS: GUAIFENESIN 600 MG TABCR PO SCH ×2 (09:10→20:11)
[2017-10-17] MEDS: FUROSEMIDE 40 MG TAB PO SCH (09:10)
[2017-10-17] MEDS: GABAPENTIN 100 MG CAP PO SCH (09:11)
[2017-10-17] MEDS: PAROXETINE 20 MG TAB PO SCH (09:11)
[2017-10-17] MEDS: PANTOprazole SOD 40 MG TAB PO SCH ×2 (09:13→20:10)
[2017-10-17] MEDS: DOCUSATE SODIUM/SENNA 50/8.6MG TAB PO SCH (09:14)
[2017-10-17] MEDS: LIDODERM (LIDOCAINE) PATCH 5% TD SCH (09:21)
[2017-10-17] MEDS: METOPROLOL SUCC 25MG EXT REL TAB PO SCH ×2 (09:22→20:09)
--- NOTE | 2017-10-17 17:59 | Progress Note ---
Subjective Date of Service: Oct 17, 2017. Subjective Pt evaluation today including: conversation w/ patient, physical exam, lab review, review of studies, review of inpatient medication list Saw/examined the patient in room 258 She is weak, no coughing, no other issues to note. Problem List Medical Problems: (1) Acute kidney injury Status: Acute (2) Ambulatory dysfunction Status: Acute (3) Anemia Status: Chronic (4) Anticoagulated on Coumadin Status: Acute (5) Anticoagulated on Coumadin Status: Acute (6) Bronchitis with bronchospasm Status: Acute (7) Change in mental status Status: Acute (8) Contusion of left knee Status: Acute (9) Creatinine elevation Status: Acute (10) Dehydration Status: Acute (11) Dehydration Status: Acute (12) Dehydration Status: Acute (13) Dyspnea Status: Acute (14) Dyspnea Status: Acute (15) GI bleed Status: Acute (16) GI bleed Status: Acute (17) Hypotension Status: Acute (18) Melena Status: Acute (19) Pulmonary embolism Status: Acute (20) SBO (small bowel obstruction) Status: Acute (21) Sepsis due to urinary tract infection Status: Acute (22) Small bowel obstruction Status: Acute (23) Small bowel obstruction Status: Acute (24) SOB (shortness of breath) Status: Acute (25) Subtherapeutic international normalized ratio (INR) Status: Acute (26) Symptomatic anemia Status: Acute (27) Symptomatic anemia Status: Acute (28) Upper GI bleed Status: Acute (29) Urinary tract infection Status: Acute (30) UTI (urinary tract infection) Status: Acute (31) Weakness Status: Acute (32) Weakness Status: Acute Review of Systems Constitutional: No fever, No chills Respiratory: No shortness of breath Cardiac: No chest pain Abdomen: No pain, No nausea, No vomiting, No diarrhea Medications Current Inpatient Medications Medications (Trade) Dose Ordered Sig/Rosi Route Start Time Stop Time Status Last Admin Dose Admin Al Hydrox/Mg Hydrox/Simethicone (Maalox Max Susp) 15 ml Q4H PRN PO 10/02/17 21:00 11/01/17 20:59 Magnesium Hydroxide (Milk Of Magnesia Susp) 30 ml Q12H PRN PO 10/02/17 21:00 11/01/17 20:59 Ondansetron HCl (Zofran Inj) 4 mg Q6H PRN IV 10/02/17 21:00 11/01/17 20:59 10/16/17 18:09 4 MG Nitroglycerin (Nitrostat Tab) 0.4 mg UD PRN SL 10/02/17 21:00 11/01/17 20:59 Ferrous Sulfate (Feosol Tab) 325 mg BID PO 10/03/17 09:00 11/02/17 08:59 10/17/17 09:08 325 MG Salmeterol Xinafoate/ Fluticasone (Advair Diskus 250/50 Inh) 1 puff BID INH 10/03/17 09:00 11/02/17 08:59 10/17/17 09:08 1 PUFF Gabapentin (Neurontin Cap) 100 mg DAILY PO 10/03/17 09:00 11/02/17 08:59 10/17/17 09:11 100 MG Lactobacillus Acidophilus (Floranex Tab) 1 tab TIDM PO 10/03/17 07:30 11/02/17 07:29 10/17/17 17:22 1 TAB Lorazepam (Ativan Tab) 0.5 mg HS PRN PO 10/02/17 21:15 11/01/17 21:14 10/15/17 21:17 0.5 MG Magnesium Oxide (Mag-Ox Tab) 400 mg DAILY PO 10/03/17 09:00 11/02/17 08:59 10/17/17 09:10 400 MG Metoprolol Succinate (Toprol Xl Tab) 12.5 mg BID PO 10/03/17 09:00 11/02/17 08:59 10/17/17 09:22 12.5 MG Mirtazapine (Remeron Solutab) 15 mg HS PO 10/03/17 21:00 11/02/17 20:59 10/16/17 19:40 15 MG Paroxetine HCl (pAXil TAB) 40 mg DAILY PO 10/03/17 09:00 11/02/17 08:59 10/17/17 09:11 40 MG Potassium Chloride (Klor-Con M10) 10 meq BID PO 10/03/17 09:00 11/02/17 08:59 10/17/17 09:09 10 MEQ Ranitidine HCl (zANTac TAB) 300 mg HS PO 10/03/17 21:00 11/02/17 20:59 10/16/17 19:39 300 MG Sucralfate (Carafate Susp) 1 gm QID PO 10/03/17 17:00 11/02/17 16:59 10/17/17 17:22 1 GM Lidocaine (Lidoderm Patch 5%) 1 patch QAM TD 10/05/17 09:00 11/04/17 08:59 10/17/17 09:21 1 PATCH Miscellaneous (Remove Lidoderm Patch) 1 ea DAILY@21 N/A 10/04/17 21:00 11/03/17 20:59 10/16/17 20:13 1 EA Pantoprazole Sodium (Protonix Tab) 40 mg BID PO 10/05/17 21:00 11/04/17 20:59 10/17/17 09:13 40 MG Prednisone (PredniSONE TAB) 5 mg DAILY PO 10/07/17 09:00 11/06/17 08:59 10/17/17 09:12 5 MG Ipratropium [place] (Atrovent 0.02% 0.5MG/2.5ML Neb) 0.5 mg Q2R PRN INH 10/08/17 08:00 11/07/17 07:59 Levalbuterol (Xopenex 1.25MG/ 0.5ML Neb) 1.25 mg Q2R PRN INH 10/08/17 08:00 11/07/17 07:59 Ipratropium [place] (Atrovent 0.02% 0.5MG/2.5ML Neb) 0.5 mg Q4R INH 10/08/17 20:00 11/07/17 19:59 10/17/17 15:14 0.5 MG Levalbuterol (Xopenex 1.25MG/ 0.5ML Neb) 1.25 mg Q4R INH 10/08/17 20:00 11/07/17 19:59 10/17/17 15:14 1.25 MG Acetylcysteine (Mucomyst 20% Inh Soln) 3 ml Q8R INH 10/08/17 18:00 11/07/17 17:59 10/17/17 15:17 3 ML Fentanyl (Duragesic Patch) 25 mcg Q72H TD 10/09/17 10:00 10/23/17 09:59 10/15/17 08:30 25 MCG Miscellaneous (Fentanyl Patch Remove & Waste) 1 ea Q3D N/A 10/12/17 09:59 11/11/17 09:58 10/15/17 08:30 1 EA Miscellaneous Information (Check Fentanyl Patch Placement) 1 ea QS N/A 10/09/17 16:00 11/08/17 15:59 10/17/17 16:00 1 EA Heparin Sodium (Porcine) (Heparin 10 Unit/ ml 5 ml Flush) 5 ml PRN PRN FLUSH 10/10/17 13:30 11/09/17 13:29 10/16/17 19:25 5 ML Furosemide (Lasix Tab) 40 mg QAM PO 10/11/17 09:00 11/10/17 08:59 10/17/17 09:10 40 MG Acetaminophen 100 ml @ 400 mls/hr Q8H PRN IV 10/10/17 18:15 11/09/17 18:14 10/10/17 18:20 400 MLS/HR Guaifenesin (Mucinex Contr Rel Tab) 600 mg Q12 PO 10/11/17 21:00 11/10/17 20:59 10/17/17 09:10 600 MG Polyethylene (Miralax Powder Packet) 17 gm DAILY PO 10/14/17 09:00 11/01/17 20:59 10/17/17 09:06 17 GM Senna/Docusate Sodium (Senokot S Tab) 1 tab QAM PO 10/14/17 09:00 11/13/17 08:59 10/17/17 09:14 1 TAB Senna (Senokot Tab) 8.6 mg QPM PO 10/13/17 21:00 11/12/17 20:59 10/16/17 19:39 8.6 MG Bisacodyl (Dulcolax Tab) 5 mg BID PRN PO 10/13/17 17:45 11/12/17 17:44 Oxycodone/ Acetaminophen (Percocet 5-325mg Tab) pain not relieved by tylenol Q4H PRN PO 10/17/17 06:30 10/31/17 06:29 10/17/17 13:40 2 TAB Fluconazole (Diflucan Tab) 150 mg NOW ONCE PO 10/17/17 17:30 10/17/17 17:31 UNV Objective Vital Signs Date Time Temp Pulse Resp B/P (MAP) Pulse Ox O2 Delivery O2 Flow Rate FiO2 10/17/17 17:35 91 Nasal Cannula 3.0 98 10/17/17 16:02 36.8 87 20 116/72 (87) 95 Nasal Cannula 3.0 10/17/17 15:17 87 16 95 Nasal Cannula 3.0 10/17/17 11:14 93 16 94 Nasal Cannula 3.0 10/17/17 10:00 91 Nasal Cannula 3.0 98 10/17/17 08:04 36.7 88 22 199/97 (131) 91 Nasal Cannula 3.0 10/17/17 07:24 88 16 91 Nasal Cannula 3.0 10/17/17 00:22 36.6 80 20 148/63 (91) 96 3.0 10/17/17 00:15 Nasal Cannula 3.0 10/16/17 23:00 89 16 94 Nasal Cannula 3.0 10/16/17 22:00 Nasal Cannula 3.0 10/16/17 19:40 87 16 96 Nasal Cannula 2.0 Physical Exam General Appearance: no apparent distress Respiratory/Chest: chest non-tender, lungs clear, normal breath sounds, no respiratory distress, no accessory muscle use Cardiovascular: regular rate, rhythm, no edema, no murmur Extremities: normal inspection, no pedal edema Assessment and Plan Acute on Chronic Hypoxic Respiratory Failure and Severe Sepsis secondary to Aspiration Pneumonia 10/17 * there is a mild persistent cough * currently on baseline oxygen * plan for discharge to [facility] in 1-2 days 10/16 * patient is doing well - no breathing issues * back on her baseline of 2-2.5L of supplemental O2 * No other complaints at this time 10/15 * stopping all antibiotics at this time * will monitor Hgb * possible d/c in AM - disposition - home vs. rehab; family meeting tomorrow 10/14 * doing much better now * last day of Imipenem * would appreciate ID input regarding PO abx. * PT/OT 10/13 * question of aspiration pneumonia * required ICU earlier in the admission * CXR suggested pneumonia vs. pulmonary edema - on broad spectrum antibiotics, including Imipenem * cultures thus far are negative * appreciate ID input - for now, Imipenem for 2 more days Acute Diastolic CHF * due to acute hypoxic events - was given IV Lasix for congestion * currently euvolemic * monitor fluid status, may need maintenance diuretics Hx. of DVT and PE * CT chest finding of small pulmonary embolism in the right lung * not an anticoagulation candidate due to bleed risk Hx. of TAVR * Status post bioprosthetic aortic valve replacement * Patient does not need to be on chronic anticoagulation Multifactorial Anemia * s/p one unit pRBCs * Presented with symptomatic anemia/secondary to GI bleed * EGD done on October 05 by GI - no active GI bleeding noted, large hiatal hernia noted Acute Kidney Injury superimposed on CKD stage 3 * Creatinine peaked at 1.94 * likely secondary to IV Lasix/diuresis as well as possible contrast induced MYRTLE * creatinine improving to <1.0 DVT ppx * SCDs/TEDs FULL CODE after discussion with son and patient patient is agreeable to go to [facility] discharge planning eval re-ordered
[2017-10-17] MEDS ORDERED: FLUCONAZOLE 50 MG TAB PO ONE (18:15)
[2017-10-17] MEDS: SENNA 8.6 MG TAB PO SCH (20:10)
[2017-10-17] MEDS: RANITIDINE HCL 150 MG TAB PO SCH (20:13)
[2017-10-17] MEDS: MIRTAZAPINE SOLTAB 15 MG PO SCH (20:13)
[2017-10-18] VITALS (12 sets, daily range): BP systolic 113–151; BP diastolic 67–73; PULSE 77–98; TEMP 36.6–37.1; O2SAT 90–97
[2017-10-18] MEDS: LORAZEPAM 0.5 MG TAB PO PRN ×2 (00:03→23:51)
[2017-10-18] MEDS: OXYCODONE/ACETAMINOPHEN 5-325 TAB PO PRN ×4 (00:04→21:48)
[2017-10-18] MEDS: LEVALBUTEROL 1.25MG/0.5ML NEB INH SCH ×6 (04:20→22:57)
[2017-10-18] MEDS: IPRATROPIUM BROMIDE NEB SOLN 0.02% 2.5 ML VIAL INH SCH ×6 (04:20→22:56)
[2017-10-18 07:01] LABS: HEMOGLOBIN 8.1 g/dL (12.0-16.0); MEAN CELL VOLUME 92.9 fL (80-100); MEAN CORPUSCULAR HEMOGLOBIN 28.9 pg (25-34); MEAN CORPUSCULAR HGB CONC 31.2 g/dl (32-36); MEAN PLATELET VOLUME 8.8 fL (7.4-10.4); PLATELET COUNT 318 K/uL (130-400); RED CELL DISTRIBUTION WIDTH CV 16.9 % (11.5-14.5); WHITE BLOOD COUNT 10.33 K/uL (4.8-10.8)
[2017-10-18 07:20] LABS: CALCIUM 10.3 mg/dl (8.5-10.1); CREATININE 1.03 mg/dl (0.60-1.20); POTASSIUM 4.1 mmol/L (3.5-5.1)
[2017-10-18] MEDS: FLUTICASONE/SALMETEROL 250/50 (ADVAIR) 14 PUFF/1 INHALER INH SCH ×2 (07:21→20:45)
[2017-10-18] MEDS: FERROUS SULFATE 325 MG TAB PO SCH ×2 (07:21→20:45)
[2017-10-18] MEDS: LACTOBACILLUS ACIDOPHILUS (FLORANEX) TAB PO SCH ×3 (07:21→17:45)
[2017-10-18] MEDS: SUCRALFATE 1 GM/10 ML UDC PO SCH ×4 (07:21→20:46)
[2017-10-18] MEDS: POTASSIUM CHLORIDE 10 MEQ TABCR PO SCH ×2 (07:22→20:48)
[2017-10-18] MEDS: MAGNESIUM OXIDE 400 MG TAB PO SCH (07:24)
[2017-10-18] MEDS: FUROSEMIDE 40 MG TAB PO SCH (07:24)
[2017-10-18] MEDS: POLYETHYLENE (MIRALAX) 17 GM PACK PO SCH (07:25)
[2017-10-18] MEDS: GABAPENTIN 100 MG CAP PO SCH (07:26)
[2017-10-18] MEDS: PAROXETINE 20 MG TAB PO SCH (07:28)
[2017-10-18] MEDS: PANTOprazole SOD 40 MG TAB PO SCH ×2 (07:29→20:45)
[2017-10-18] MEDS: METOPROLOL SUCC 25MG EXT REL TAB PO SCH ×2 (07:30→20:47)
[2017-10-18] MEDS: DOCUSATE SODIUM/SENNA 50/8.6MG TAB PO SCH (07:31)
[2017-10-18] MEDS: LIDODERM (LIDOCAINE) PATCH 5% TD SCH (07:31)
[2017-10-18] MEDS: FENTANYL 25 MCG/HR TDSY TD SCH (07:32)
[2017-10-18] MEDS: GUAIFENESIN 600 MG TABCR PO SCH ×2 (07:33→20:45)
[2017-10-18] MEDS: ACETYLCYSTEINE 20% INHAL SOLN ***DISPENSED BY RESP. INH SCH ×3 (07:36→22:57)
[2017-10-18] MEDS: CHECK FENTANYL PATCH PLACEMENT SCH ×3 (07:37→23:54)
[2017-10-18] MEDS: FENTANYL PATCH REMOVE & WASTE SCH (07:38)
[2017-10-18] MEDS ORDERED: GUAIFENESIN/DEXTROM SYRUP 100MG/10MG 5ML UDC PO ONE (13:30)
--- NOTE | 2017-10-18 14:00 | Progress Note ---
Subjective Date of Service: Oct 18, 2017. Subjective Pt evaluation today including: conversation w/ patient, physical exam, lab review, review of studies, review of inpatient medication list Saw/examined the patient in room 258 productive cough persists. patient states she does not want to go to rehab she is again telling me she is refusing and will go home. Problem List Medical Problems: (1) Acute kidney injury Status: Acute (2) Ambulatory dysfunction Status: Acute (3) Anemia Status: Chronic (4) Anticoagulated on Coumadin Status: Acute (5) Anticoagulated on Coumadin Status: Acute (6) Bronchitis with bronchospasm Status: Acute (7) Change in mental status Status: Acute (8) Contusion of left knee Status: Acute (9) Creatinine elevation Status: Acute (10) Dehydration Status: Acute (11) Dehydration Status: Acute (12) Dehydration Status: Acute (13) Dyspnea Status: Acute (14) Dyspnea Status: Acute (15) GI bleed Status: Acute (16) GI bleed Status: Acute (17) Hypotension Status: Acute (18) Melena Status: Acute (19) Pulmonary embolism Status: Acute (20) SBO (small bowel obstruction) Status: Acute (21) Sepsis due to urinary tract infection Status: Acute (22) Small bowel obstruction Status: Acute (23) Small bowel obstruction Status: Acute (24) SOB (shortness of breath) Status: Acute (25) Subtherapeutic international normalized ratio (INR) Status: Acute (26) Symptomatic anemia Status: Acute (27) Symptomatic anemia Status: Acute (28) Upper GI bleed Status: Acute (29) Urinary tract infection Status: Acute (30) UTI (urinary tract infection) Status: Acute (31) Weakness Status: Acute (32) Weakness Status: Acute Review of Systems Constitutional: + weakness, No fever, No chills Respiratory: + cough, + sputum, No wheezing, No shortness of breath, No dyspnea on exertion Cardiac: No chest pain Medications Current Inpatient Medications Medications (Trade) Dose Ordered Sig/Rosi Route Start Time Stop Time Status Last Admin Dose Admin Al Hydrox/Mg Hydrox/Simethicone (Maalox Max Susp) 15 ml Q4H PRN PO 10/02/17 21:00 11/01/17 20:59 Magnesium Hydroxide (Milk Of Magnesia Susp) 30 ml Q12H PRN PO 10/02/17 21:00 11/01/17 20:59 Ondansetron HCl (Zofran Inj) 4 mg Q6H PRN IV 10/02/17 21:00 11/01/17 20:59 10/16/17 18:09 4 MG Nitroglycerin (Nitrostat Tab) 0.4 mg UD PRN SL 10/02/17 21:00 11/01/17 20:59 Ferrous Sulfate (Feosol Tab) 325 mg BID PO 10/03/17 09:00 11/02/17 08:59 10/18/17 07:21 325 MG Salmeterol Xinafoate/ Fluticasone (Advair Diskus 250/50 Inh) 1 puff BID INH 10/03/17 09:00 11/02/17 08:59 10/18/17 07:21 1 PUFF Gabapentin (Neurontin Cap) 100 mg DAILY PO 10/03/17 09:00 11/02/17 08:59 10/18/17 07:26 100 MG Lactobacillus Acidophilus (Floranex Tab) 1 tab TIDM PO 10/03/17 07:30 11/02/17 07:29 10/18/17 12:54 1 TAB Lorazepam (Ativan Tab) 0.5 mg HS PRN PO 10/02/17 21:15 11/01/17 21:14 10/18/17 00:03 0.5 MG Magnesium Oxide (Mag-Ox Tab) 400 mg DAILY PO 10/03/17 09:00 11/02/17 08:59 10/18/17 07:24 400 MG Metoprolol Succinate (Toprol Xl Tab) 12.5 mg BID PO 10/03/17 09:00 11/02/17 08:59 10/18/17 07:30 12.5 MG Mirtazapine (Remeron Solutab) 15 mg HS PO 10/03/17 21:00 11/02/17 20:59 10/17/17 20:13 15 MG Paroxetine HCl (pAXil TAB) 40 mg DAILY PO 10/03/17 09:00 11/02/17 08:59 10/18/17 07:28 40 MG Potassium Chloride (Klor-Con M10) 10 meq BID PO 10/03/17 09:00 11/02/17 08:59 10/18/17 07:22 10 MEQ Ranitidine HCl (zANTac TAB) 300 mg HS PO 10/03/17 21:00 11/02/17 20:59 10/17/17 20:13 300 MG Sucralfate (Carafate Susp) 1 gm QID PO 10/03/17 17:00 11/02/17 16:59 10/18/17 12:54 1 GM Lidocaine (Lidoderm Patch 5%) 1 patch QAM TD 10/05/17 09:00 11/04/17 08:59 10/18/17 07:31 1 PATCH Miscellaneous (Remove Lidoderm Patch) 1 ea DAILY@21 N/A 10/04/17 21:00 11/03/17 20:59 10/17/17 20:15 1 EA Pantoprazole Sodium (Protonix Tab) 40 mg BID PO 10/05/17 21:00 11/04/17 20:59 10/18/17 07:29 40 MG Prednisone (PredniSONE TAB) 5 mg DAILY PO 10/07/17 09:00 11/06/17 08:59 10/18/17 07:29 5 MG Ipratropium [place] (Atrovent 0.02% 0.5MG/2.5ML Neb) 0.5 mg Q2R PRN INH 10/08/17 08:00 11/07/17 07:59 Levalbuterol (Xopenex 1.25MG/ 0.5ML Neb) 1.25 mg Q2R PRN INH 10/08/17 08:00 11/07/17 07:59 Ipratropium [place] (Atrovent 0.02% 0.5MG/2.5ML Neb) 0.5 mg Q4R INH 10/08/17 20:00 11/07/17 19:59 10/18/17 11:12 0.5 MG Levalbuterol (Xopenex 1.25MG/ 0.5ML Neb) 1.25 mg Q4R INH 10/08/17 20:00 11/07/17 19:59 10/18/17 11:12 1.25 MG Acetylcysteine (Mucomyst 20% Inh Soln) 3 ml Q8R INH 10/08/17 18:00 11/07/17 17:59 10/18/17 07:36 3 ML Fentanyl (Duragesic Patch) 25 mcg Q72H TD 10/09/17 10:00 10/23/17 09:59 10/18/17 07:32 25 MCG Miscellaneous (Fentanyl Patch Remove & Waste) 1 ea Q3D N/A 10/12/17 09:59 11/11/17 09:58 10/18/17 07:38 1 EA Miscellaneous Information (Check Fentanyl Patch Placement) 1 ea QS N/A 10/09/17 16:00 11/08/17 15:59 10/18/17 07:37 1 EA Heparin Sodium (Porcine) (Heparin 10 Unit/ ml 5 ml Flush) 5 ml PRN PRN FLUSH 10/10/17 13:30 11/09/17 13:29 10/18/17 07:40 5 ML Furosemide (Lasix Tab) 40 mg QAM PO 10/11/17 09:00 11/10/17 08:59 10/18/17 07:24 40 MG Acetaminophen 100 ml @ 400 mls/hr Q8H PRN IV 10/10/17 18:15 11/09/17 18:14 10/10/17 18:20 400 MLS/HR Guaifenesin (Mucinex Contr Rel Tab) 600 mg Q12 PO 10/11/17 21:00 11/10/17 20:59 10/18/17 07:33 600 MG Polyethylene (Miralax Powder Packet) 17 gm DAILY PO 10/14/17 09:00 11/01/17 20:59 10/18/17 07:25 17 GM Senna/Docusate Sodium (Senokot S Tab) 1 tab QAM PO 10/14/17 09:00 11/13/17 08:59 10/18/17 07:31 1 TAB Senna (Senokot Tab) 8.6 mg QPM PO 10/13/17 21:00 11/12/17 20:59 10/16/17 19:39 8.6 MG Bisacodyl (Dulcolax Tab) 5 mg BID PRN PO 10/13/17 17:45 11/12/17 17:44 Oxycodone/ Acetaminophen (Percocet 5-325mg Tab) pain not relieved by tylenol Q4H PRN PO 10/17/17 06:30 10/31/17 06:29 10/18/17 12:54 1 TAB Objective Vital Signs Date Time Temp Pulse Resp B/P (MAP) Pulse Ox O2 Delivery O2 Flow Rate FiO2 10/18/17 11:12 98 16 93 Nasal Cannula 3.0 10/18/17 10:37 90 Nasal Cannula 3.0 98 10/18/17 07:57 36.6 86 20 137/73 (94) 90 3.0 10/18/17 07:36 87 16 92 Nasal Cannula 3.0 10/18/17 04:20 81 16 96 Nasal Cannula 3.0 10/18/17 00:12 36.6 92 20 151/73 (99) 96 2.0 10/18/17 00:00 Nasal Cannula 3.0 10/17/17 23:15 82 16 94 Nasal Cannula 3.0 10/17/17 20:07 91 135/73 (93) 10/17/17 20:00 Nasal Cannula 3.0 10/17/17 19:05 92 16 95 Nasal Cannula 3.0 10/17/17 17:35 91 Nasal Cannula 3.0 98 10/17/17 16:02 36.8 87 20 116/72 (87) 95 Nasal Cannula 3.0 10/17/17 15:17 87 16 95 Nasal Cannula 3.0 Physical Exam General Appearance: no apparent distress Respiratory/Chest: no respiratory distress, no accessory muscle use, + rhonchi Cardiovascular: regular rate, rhythm, no edema, no murmur Laboratory Results Last 24 Hours Test 10/18/17 06:36 White Blood Count 10.33 K/uL Red Blood Count 2.80 M/uL Hemoglobin 8.1 g/dL Hematocrit 26.0 % Mean Corpuscular Volume 92.9 fL Mean Corpuscular Hemoglobin 28.9 pg Mean Corpuscular Hemoglobin Concent 31.2 g/dl RDW Standard Deviation 58.0 fL RDW Coefficient of Variation 16.9 % Platelet Count 318 K/uL Mean Platelet Volume 8.8 fL Sodium Level 139 mmol/L Potassium Level 4.1 mmol/L Chloride Level 100 mmol/L Carbon Dioxide Level 35 mmol/L Anion Gap 4.0 mmol/L Blood Urea Nitrogen 19 mg/dl Creatinine 1.03 mg/dl Est Creatinine Clear Calc Drug Dose 34.4 ml/min Estimated GFR () 57.8 Estimated GFR (Non- 49.9 BUN/Creatinine Ratio 18.4 Random Glucose 90 mg/dl Calcium Level 10.3 mg/dl Magnesium Level 1.8 mg/dl Assessment and Plan Acute on Chronic Hypoxic Respiratory Failure and Severe Sepsis secondary to Aspiration Pneumonia 10/18 * added a dose of robitussin * refusing discharge to rehab * she is now off of antibiotics * at her current baseline O2 dose 10/17 * there is a mild persistent cough * currently on baseline oxygen * plan for discharge to [facility] in 1-2 days 10/16 * patient is doing well - no breathing issues * back on her baseline of 2-2.5L of supplemental O2 * No other complaints at this time 10/15 * stopping all antibiotics at this time * will monitor Hgb * possible d/c in AM - disposition - home vs. rehab; family meeting tomorrow 10/14 * doing much better now * last day of Imipenem * would appreciate ID input regarding PO abx. * PT/OT 10/13 * question of aspiration pneumonia * required ICU earlier in the admission * CXR suggested pneumonia vs. pulmonary edema - on broad spectrum antibiotics, including Imipenem * cultures thus far are negative * appreciate ID input - for now, Imipenem for 2 more days Acute Diastolic CHF * due to acute hypoxic events - was given IV Lasix for congestion * currently euvolemic * monitor fluid status, may need maintenance diuretics Hx. of DVT and PE * CT chest finding of small pulmonary embolism in the right lung * not an anticoagulation candidate due to bleed risk Hx. of TAVR * Status post bioprosthetic aortic valve replacement * Patient does not need to be on chronic anticoagulation Multifactorial Anemia * s/p one unit pRBCs * Presented with symptomatic anemia/secondary to GI bleed * EGD done on October 05 by GI - no active GI bleeding noted, large hiatal hernia noted Acute Kidney Injury superimposed on CKD stage 3 * Creatinine peaked at 1.94 * likely secondary to IV Lasix/diuresis as well as possible contrast induced MYRTLE * creatinine improving to <1.0 DVT ppx * SCDs/TEDs FULL CODE after discussion with son and patient patient is agreeable to go to [facility] discharge planning eval re-ordered
[2017-10-18] MEDS ORDERED: NURSING VERBAL MED ORDER ONE (15:15)
[2017-10-18] MEDS ORDERED: BENZOCAINE 20% (ORAJEL) 11.9 GM TUBE MT PRN (18:00)
[2017-10-18] MEDS: ASPIRIN 81 MG ECTAB PO SCH (19:40)
[2017-10-18] MEDS: SENNA 8.6 MG TAB PO SCH (20:44)
[2017-10-18] MEDS: MIRTAZAPINE SOLTAB 15 MG PO SCH (20:44)
[2017-10-18] MEDS: RANITIDINE HCL 150 MG TAB PO SCH (20:46)
[2017-10-19] VITALS (14 sets, daily range): BP systolic 115–186; BP diastolic 70–110; PULSE 75–105; TEMP 36.6–37; O2SAT 83–97
[2017-10-19] MEDS: LEVALBUTEROL 1.25MG/0.5ML NEB INH SCH ×6 (03:25→23:19)
[2017-10-19] MEDS: IPRATROPIUM BROMIDE NEB SOLN 0.02% 2.5 ML VIAL INH SCH ×6 (03:25→23:19)
[2017-10-19] MEDS: ACETYLCYSTEINE 20% INHAL SOLN ***DISPENSED BY RESP. INH SCH ×3 (07:37→23:19)
[2017-10-19] MEDS: OXYCODONE/ACETAMINOPHEN 5-325 TAB PO PRN ×3 (08:28→21:16)
[2017-10-19] MEDS: FLUTICASONE/SALMETEROL 250/50 (ADVAIR) 14 PUFF/1 INHALER INH SCH ×2 (08:30→20:04)
[2017-10-19] MEDS: POTASSIUM CHLORIDE 10 MEQ TABCR PO SCH ×2 (08:30→20:05)
[2017-10-19] MEDS ORDERED: FUROSEMIDE INJ 20 MG in SYRINGE 0 ML IV ONE ×2 (08:30→16:30)
[2017-10-19] MEDS: DOCUSATE SODIUM/SENNA 50/8.6MG TAB PO SCH (08:31)
[2017-10-19] MEDS: LACTOBACILLUS ACIDOPHILUS (FLORANEX) TAB PO SCH ×3 (08:31→16:10)
[2017-10-19] MEDS: GUAIFENESIN 600 MG TABCR PO SCH ×2 (08:31→22:16)
[2017-10-19] MEDS: METOPROLOL SUCC 25MG EXT REL TAB PO SCH ×2 (08:33→20:24)
[2017-10-19] MEDS: PANTOprazole SOD 40 MG TAB PO SCH ×2 (08:36→20:05)
[2017-10-19] MEDS: MAGNESIUM OXIDE 400 MG TAB PO SCH (08:36)
[2017-10-19] MEDS: LIDODERM (LIDOCAINE) PATCH 5% TD SCH (08:36)
[2017-10-19] MEDS: POLYETHYLENE (MIRALAX) 17 GM PACK PO SCH (08:37)
[2017-10-19] MEDS: SUCRALFATE 1 GM/10 ML UDC PO SCH ×4 (08:37→20:04)
[2017-10-19] MEDS: FUROSEMIDE 40 MG TAB PO SCH (08:38)
[2017-10-19] MEDS: GABAPENTIN 100 MG CAP PO SCH (08:38)
[2017-10-19] MEDS: CHECK FENTANYL PATCH PLACEMENT SCH ×3 (08:41→23:37)
--- NOTE | 2017-10-19 08:45 | DIAGNOSTIC IMAGING REPORT ---
CHEST ONE VIEW PORTABLE CLINICAL HISTORY: SOB dyspnea COMPARISON STUDY: 10/12/2017 FINDINGS: Improved study compared to the prior exam. multi focal infiltrative change has considerably improved compared to the prior study. Minimal residual is identified at the left base. PICC catheter remains overlying the right atrium. IMPRESSION: Considerable improvement compared to the prior study. Improved multifocal infiltrative change throughout both hemithoraces. Mild infiltrative residual change left lung base. The above report was generated using voice recognition software. It may contain grammatical, syntax or spelling errors. Electronically signed by: Albert Mccarthy M.D. 10/19/2017 8:44 AM Dictated Date/Time: 10/19/2017 8:42 AM
--- NOTE | 2017-10-19 09:11 | Progress Note ---
Subjective Date of Service: Oct 19, 2017. Subjective Pt evaluation today including: conversation w/ patient, physical exam, lab review, review of studies, review of inpatient medication list Saw/examined the patient in room 258 She was short of breath today, worsening rhonchi and congestion - she is coughing more than before, with some sputum production oxygen saturation was noted to be low on her baseline 3L of O2 - she is now on 6L I saw her in the room today - she is coughing more, but does not appear to be in respiratory distress - she is not using her accessory muscles to breathe. received one dose of IV Lasix earlier this morning. Problem List Medical Problems: (1) Acute kidney injury Status: Acute (2) Ambulatory dysfunction Status: Acute (3) Anemia Status: Chronic (4) Anticoagulated on Coumadin Status: Acute (5) Anticoagulated on Coumadin Status: Acute (6) Bronchitis with bronchospasm Status: Acute (7) Change in mental status Status: Acute (8) Contusion of left knee Status: Acute (9) Creatinine elevation Status: Acute (10) Dehydration Status: Acute (11) Dehydration Status: Acute (12) Dehydration Status: Acute (13) Dyspnea Status: Acute (14) Dyspnea Status: Acute (15) GI bleed Status: Acute (16) GI bleed Status: Acute (17) Hypotension Status: Acute (18) Melena Status: Acute (19) Pulmonary embolism Status: Acute (20) SBO (small bowel obstruction) Status: Acute (21) Sepsis due to urinary tract infection Status: Acute (22) Small bowel obstruction Status: Acute (23) Small bowel obstruction Status: Acute (24) SOB (shortness of breath) Status: Acute (25) Subtherapeutic international normalized ratio (INR) Status: Acute (26) Symptomatic anemia Status: Acute (27) Symptomatic anemia Status: Acute (28) Upper GI bleed Status: Acute (29) Urinary tract infection Status: Acute (30) UTI (urinary tract infection) Status: Acute (31) Weakness Status: Acute (32) Weakness Status: Acute Review of Systems ENT: + dental problems (mouth and tongue pain due to partially broken tooth), + problem reported Respiratory: + cough, + sputum, + shortness of breath, + dyspnea on exertion, + dyspnea at rest, No wheezing, No hemoptysis Cardiac: No chest pain Abdomen: No pain Psychiatric: + anxiety, + insomnia (improved with medications), No depression symptoms Medications Current Inpatient Medications Medications (Trade) Dose Ordered Sig/Rosi Route Start Time Stop Time Status Last Admin Dose Admin Al Hydrox/Mg Hydrox/Simethicone (Maalox Max Susp) 15 ml Q4H PRN PO 10/02/17 21:00 11/01/17 20:59 Magnesium Hydroxide (Milk Of Magnesia Susp) 30 ml Q12H PRN PO 10/02/17 21:00 11/01/17 20:59 Ondansetron HCl (Zofran Inj) 4 mg Q6H PRN IV 10/02/17 21:00 11/01/17 20:59 10/16/17 18:09 4 MG Nitroglycerin (Nitrostat Tab) 0.4 mg UD PRN SL 10/02/17 21:00 11/01/17 20:59 Ferrous Sulfate (Feosol Tab) 325 mg BID PO 10/03/17 09:00 11/02/17 08:59 10/18/17 20:45 325 MG Salmeterol Xinafoate/ Fluticasone (Advair Diskus 250/50 Inh) 1 puff BID INH 10/03/17 09:00 11/02/17 08:59 10/19/17 08:30 1 PUFF Gabapentin (Neurontin Cap) 100 mg DAILY PO 10/03/17 09:00 11/02/17 08:59 10/19/17 08:38 100 MG Lactobacillus Acidophilus (Floranex Tab) 1 tab TIDM PO 10/03/17 07:30 11/02/17 07:29 10/19/17 08:31 1 TAB Lorazepam (Ativan Tab) 0.5 mg HS PRN PO 10/02/17 21:15 11/01/17 21:14 10/18/17 23:51 0.5 MG Magnesium Oxide (Mag-Ox Tab) 400 mg DAILY PO 10/03/17 09:00 11/02/17 08:59 10/19/17 08:36 400 MG Metoprolol Succinate (Toprol Xl Tab) 12.5 mg BID PO 10/03/17 09:00 11/02/17 08:59 10/19/17 08:33 12.5 MG Mirtazapine (Remeron Solutab) 15 mg HS PO 10/03/17 21:00 11/02/17 20:59 10/18/17 20:44 15 MG Paroxetine HCl (pAXil TAB) 40 mg DAILY PO 10/03/17 09:00 11/02/17 08:59 10/18/17 07:28 40 MG Potassium Chloride (Klor-Con M10) 10 meq BID PO 10/03/17 09:00 11/02/17 08:59 10/19/17 08:30 10 MEQ Ranitidine HCl (zANTac TAB) 300 mg HS PO 10/03/17 21:00 11/02/17 20:59 10/18/17 20:46 300 MG Sucralfate (Carafate Susp) 1 gm QID PO 10/03/17 17:00 11/02/17 16:59 10/19/17 08:37 1 GM Lidocaine (Lidoderm Patch 5%) 1 patch QAM TD 10/05/17 09:00 11/04/17 08:59 10/19/17 08:36 1 PATCH Miscellaneous (Remove Lidoderm Patch) 1 ea DAILY@21 N/A 10/04/17 21:00 11/03/17 20:59 10/18/17 20:44 1 EA Pantoprazole Sodium (Protonix Tab) 40 mg BID PO 10/05/17 21:00 11/04/17 20:59 10/19/17 08:36 40 MG Prednisone (PredniSONE TAB) 5 mg DAILY PO 10/07/17 09:00 11/06/17 08:59 10/19/17 08:36 5 MG Ipratropium [place] (Atrovent 0.02% 0.5MG/2.5ML Neb) 0.5 mg Q2R PRN INH 10/08/17 08:00 11/07/17 07:59 Levalbuterol (Xopenex 1.25MG/ 0.5ML Neb) 1.25 mg Q2R PRN INH 10/08/17 08:00 11/07/17 07:59 Ipratropium [place] (Atrovent 0.02% 0.5MG/2.5ML Neb) 0.5 mg Q4R INH 10/08/17 20:00 11/07/17 19:59 10/19/17 07:36 0.5 MG Levalbuterol (Xopenex 1.25MG/ 0.5ML Neb) 1.25 mg Q4R INH 10/08/17 20:00 11/07/17 19:59 10/19/17 07:36 1.25 MG Acetylcysteine (Mucomyst 20% Inh Soln) 3 ml Q8R INH 10/08/17 18:00 11/07/17 17:59 10/19/17 07:37 3 ML Fentanyl (Duragesic Patch) 25 mcg Q72H TD 10/09/17 10:00 10/23/17 09:59 10/18/17 07:32 25 MCG Miscellaneous (Fentanyl Patch Remove & Waste) 1 ea Q3D N/A 10/12/17 09:59 11/11/17 09:58 10/18/17 07:38 1 EA Miscellaneous Information (Check Fentanyl Patch Placement) 1 ea QS N/A 10/09/17 16:00 11/08/17 15:59 10/19/17 08:41 1 EA Heparin Sodium (Porcine) (Heparin 10 Unit/ ml 5 ml Flush) 5 ml PRN PRN FLUSH 10/10/17 13:30 11/09/17 13:29 10/18/17 07:40 5 ML Furosemide (Lasix Tab) 40 mg QAM PO 10/11/17 09:00 11/10/17 08:59 10/19/17 08:38 40 MG Acetaminophen 100 ml @ 400 mls/hr Q8H PRN IV 10/10/17 18:15 11/09/17 18:14 10/10/17 18:20 400 MLS/HR Guaifenesin (Mucinex Contr Rel Tab) 600 mg Q12 PO 10/11/17 21:00 11/10/17 20:59 10/19/17 08:31 600 MG Polyethylene (Miralax Powder Packet) 17 gm DAILY PO 10/14/17 09:00 11/01/17 20:59 10/19/17 08:37 17 GM Senna/Docusate Sodium (Senokot S Tab) 1 tab QAM PO 10/14/17 09:00 11/13/17 08:59 10/19/17 08:31 1 TAB Senna (Senokot Tab) 8.6 mg QPM PO 10/13/17 21:00 4/12/18 20:59 10/18/17 20:44 8.6 MG Bisacodyl (Dulcolax Tab) 5 mg BID PRN PO 10/13/17 17:45 11/12/17 17:44 Oxycodone/ Acetaminophen (Percocet 5-325mg Tab) pain not relieved by tylenol Q4H PRN PO 10/17/17 06:30 10/31/17 06:29 10/19/17 08:28 2 TAB Aspirin (Ecotrin Tab) 81 mg QAM PO 10/18/17 16:00 11/17/17 15:59 10/18/17 19:40 81 MG Benzocaine (Orajel 20% Oral Gel) 1 appln QID PRN MT 10/18/17 18:00 11/17/17 17:59 Objective Vital Signs Date Time Temp Pulse Resp B/P (MAP) Pulse Ox O2 Delivery O2 Flow Rate FiO2 10/19/17 08:47 96 175/75 (108) 10/19/17 07:36 97 22 83 Nasal Cannula 3.0 10/19/17 07:03 36.6 94 20 178/108 (131) 92 Nasal Cannula 2.0 10/19/17 03:27 75 17 95 Nasal Cannula 3.0 10/19/17 00:10 Nasal Cannula 3.0 10/18/17 23:30 36.8 86 20 113/67 (82) 97 2.0 10/18/17 22:57 77 14 97 Nasal Cannula 3.0 10/18/17 20:45 92 121/70 (87) 10/18/17 20:00 88 18 95 Nasal Cannula 2.0 10/18/17 16:00 Nasal Cannula 3.0 10/18/17 15:07 85 16 95 Nasal Cannula 2.0 10/18/17 14:46 37.1 91 20 116/68 (84) 91 10/18/17 11:12 98 16 93 Nasal Cannula 3.0 10/18/17 10:37 90 Nasal Cannula 3.0 98 Physical Exam General Appearance: no apparent distress, + pertinent finding (chronically ill appearing) Respiratory/Chest: no respiratory distress, no accessory muscle use, + rhonchi Cardiovascular: regular rate, rhythm, no edema, no murmur Extremities: normal inspection, no pedal edema Neurologic/Psychiatric: no motor/sensory deficits, alert, + pertinent finding ( +anxious appearing) Assessment and Plan Acute on Chronic Hypoxic Respiratory Failure and Severe Sepsis secondary to Aspiration Pneumonia 10/19 * CXR obtained - improved considerably from previous * continue Mucomyst inhalation, vibration vest, Mucinex, nebs as needed * gave a dose of IV Lasix * wean O2 as tolerated to baseline of 2.5-3L 10/18 * added a dose of Robitussin * refusing discharge to rehab * she is now off of antibiotics * at her current baseline O2 dose 10/17 * there is a mild persistent cough * currently on baseline oxygen * plan for discharge to [facility] in 1-2 days 10/16 * patient is doing well - no breathing issues * back on her baseline of 2-2.5L of supplemental O2 * No other complaints at this time 10/15 * stopping all antibiotics at this time * will monitor Hgb * possible d/c in AM - disposition - home vs. rehab; family meeting tomorrow 10/14 * doing much better now * last day of Imipenem * would appreciate ID input regarding PO abx. * PT/OT 10/13 * question of aspiration pneumonia * required ICU earlier in the admission * CXR suggested pneumonia vs. pulmonary edema - on broad spectrum antibiotics, including Imipenem * cultures thus far are negative * appreciate ID input - for now, Imipenem for 2 more days Acute Diastolic CHF * due to acute hypoxic events - was given IV Lasix for congestion * currently euvolemic * monitor fluid status, may need maintenance diuretics Hx. of DVT and PE * CT chest finding of small pulmonary embolism in the right lung * not an anticoagulation candidate due to bleed risk Hx. of TAVR * Status post bioprosthetic aortic valve replacement * Patient does not need to be on chronic anticoagulation Multifactorial Anemia * s/p one unit pRBCs * Presented with symptomatic anemia/secondary to GI bleed * EGD done on October 05 by GI - no active GI bleeding noted, large hiatal hernia noted Acute Kidney Injury superimposed on CKD stage 3 * Creatinine peaked at 1.94 * likely secondary to IV Lasix/diuresis as well as possible contrast induced MYRTLE * creatinine improving to <1.0 DVT ppx * SCDs/TEDs FULL CODE after discussion with son and patient patient is agreeable to go to [facility] discharge planning eval re-ordered
[2017-10-19] MEDS: ASPIRIN 81 MG ECTAB PO SCH (09:53)
[2017-10-19] MEDS: FERROUS SULFATE 325 MG TAB PO SCH ×2 (09:54→20:06)
[2017-10-19] MEDS: PAROXETINE 20 MG TAB PO SCH (09:54)
[2017-10-19 10:14] LABS: HEMOGLOBIN 9.7 g/dL (12.0-16.0); MEAN CELL VOLUME 94.1 fL (80-100); MEAN CORPUSCULAR HEMOGLOBIN 28.5 pg (25-34); MEAN CORPUSCULAR HGB CONC 30.3 g/dl (32-36); MEAN PLATELET VOLUME 9.1 fL (7.4-10.4); PLATELET COUNT 348 K/uL (130-400); RED CELL DISTRIBUTION WIDTH CV 16.7 % (11.5-14.5); RED CELL DISTRIBUTION WIDTH SD 57.7 fL (36.4-46.3); WHITE BLOOD COUNT 15.35 K/uL (4.8-10.8)
[2017-10-19 10:40] LABS: CALCIUM 11.3 mg/dl (8.5-10.1); CREATININE 1.16 mg/dl (0.60-1.20)
[2017-10-19] MEDS ORDERED: MoRPHine SULFATE 2 MG/ML CARP ONE (16:22)
[2017-10-19] MEDS ORDERED: NURSING VERBAL MED ORDER ONE (16:30)
[2017-10-19] MEDS ORDERED: MAGNESIUM SULFATE 1GM / D5W 1 GM in PREMIXED IN D5W 100 ML IV ONE (16:45)
[2017-10-19] MEDS: AMPICILLIN/SULBACTAM SOD INJ 3,000 MG in SODIUM CHLORIDE 0.9% 100ML 100 ML IV SCH ×2 (17:36→22:33)
[2017-10-19] MEDS: MIRTAZAPINE SOLTAB 15 MG PO SCH (20:04)
[2017-10-19] MEDS: SENNA 8.6 MG TAB PO SCH (20:06)
[2017-10-19] MEDS: RANITIDINE HCL 150 MG TAB PO SCH (22:15)
[2017-10-19] MEDS: LORAZEPAM 0.5 MG TAB PO PRN (22:24)
[2017-10-20] VITALS (11 sets, daily range): BP systolic 104–176; BP diastolic 64–103; PULSE 78–101; TEMP 36.5–37.1; O2SAT 90–100
[2017-10-20] MEDS: LEVALBUTEROL 1.25MG/0.5ML NEB INH SCH ×6 (03:20→23:13)
[2017-10-20] MEDS: IPRATROPIUM BROMIDE NEB SOLN 0.02% 2.5 ML VIAL INH SCH ×6 (03:20→23:13)
[2017-10-20] MEDS: AMPICILLIN/SULBACTAM SOD INJ 3,000 MG in SODIUM CHLORIDE 0.9% 100ML 100 ML IV SCH ×4 (06:03→21:57)
[2017-10-20] MEDS: OXYCODONE/ACETAMINOPHEN 5-325 TAB PO PRN ×2 (06:47→18:08)
[2017-10-20] MEDS: ACETYLCYSTEINE 20% INHAL SOLN ***DISPENSED BY RESP. INH SCH ×3 (07:03→23:16)
[2017-10-20] MEDS: ASPIRIN 81 MG ECTAB PO SCH (08:38)
[2017-10-20] MEDS: LACTOBACILLUS ACIDOPHILUS (FLORANEX) TAB PO SCH ×3 (08:38→16:32)
[2017-10-20] MEDS: MAGNESIUM OXIDE 400 MG TAB PO SCH (08:38)
[2017-10-20] MEDS: POLYETHYLENE (MIRALAX) 17 GM PACK PO SCH (08:38)
[2017-10-20] MEDS: FUROSEMIDE 40 MG TAB PO SCH (08:39)
[2017-10-20] MEDS: PAROXETINE 20 MG TAB PO SCH (08:39)
[2017-10-20] MEDS: POTASSIUM CHLORIDE 10 MEQ TABCR PO SCH ×2 (08:40→21:42)
[2017-10-20] MEDS: GUAIFENESIN 600 MG TABCR PO SCH ×2 (08:42→21:40)
[2017-10-20] MEDS: FLUTICASONE/SALMETEROL 250/50 (ADVAIR) 14 PUFF/1 INHALER INH SCH ×2 (08:42→21:40)
[2017-10-20] MEDS: METOPROLOL SUCC 25MG EXT REL TAB PO SCH ×2 (08:43→21:39)
[2017-10-20] MEDS: LIDODERM (LIDOCAINE) PATCH 5% TD SCH (08:47)
[2017-10-20] MEDS: SUCRALFATE 1 GM/10 ML UDC PO SCH ×4 (08:48→21:39)
[2017-10-20] MEDS: CHECK FENTANYL PATCH PLACEMENT SCH (08:49)
[2017-10-20] MEDS: GABAPENTIN 100 MG CAP PO SCH ×2 (08:51→10:17)
[2017-10-20] MEDS: FENTANYL PATCH REMOVE & WASTE SCH (10:13)
[2017-10-20] MEDS: FERROUS SULFATE 325 MG TAB PO SCH ×2 (10:15→21:40)
[2017-10-20] MEDS: DOCUSATE SODIUM/SENNA 50/8.6MG TAB PO SCH (10:16)
--- NOTE | 2017-10-20 13:23 | Pulmonology Progress Note ---
Pulmonary Progress Note Date of Service Oct 20, 2017. Attending Dr. [place] Subjective 82-yo female admitted to [facility] with weakness, anemia and pneumonia. 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 Patient admitted to [facility] 10/02/2017 with c/o weakness and anemia. She improved somewhat with red blood cell resuscitation. She was seen by GI and EDG notable for presbyesophagus but no obvious bleeding. Her GI regimen was escalated. she acutely decompensated with hypoxic respiratory failure initially treated with BiPAP and diuresis. ABG 10/08/2017 7.43/42/81/27/96% 60% CTA 10/08/17: very small right lung BE - multifocal airspace opacities consolidation ASHLEY and LLL, no adenopathy. Large hiatal hernia. - Video Swallow - minimal thin liquid tracheal aspiration CXR: Considerable improvement compared to the prior study. Improved multifocal infiltrative change throughout both hemithoraces. Mild infiltrative residual change left lung base. We were asked to see the patient again for acute anxiety related to increased SOB. Patient had documented desaturation to 83% at 07:36 and again to 85% at 15: 45. Her supplemental oxygen was increased from 3L/min to 6 L/min. She was given 2 mg of IV morphine sulfate and had significant improvement. This morning she states that she is feeling better regarding her respiratory status but is very fatigued. She has no constitutional complaints. She denies hemoptysis but does state that she has clear to merino sputum. She has no pleuritic pain. She has no lower extremity pain. Objective GENERAL : No acute distress. Appears tired EYES: No icterus, gaze conjugate NOSE: No evidence of epistaxis. Nasal cannula in place MOUTH: No lesions or candidiasis. Dry mucosa NECK: Supple. No stridor LUNGS: CTA B/L, no wheezes, rales or rhonchi. Decreased breath sounds -right worse than left HEART: Regular, rate controlled ABDOMEN: Soft, NT, ND, BS Present EXTREMITIES: No LE edema, pedal pulses intact NEURO: A&OX3 Assessment & Plan Hypoxia * Patient had worsening hypoxia yesterday with associated anxiety * Responded well to 2 mg of IV morphine sulfate * Oxygen has been titrated to 3 L/min by nasal cannula (down from 6 L last evening) * No indication for arterial blood gas at this time * Patient has increased leukocytosis concerning for developing infection * Check a pro-calcitonin level (returned at 10:23 this morning at 0.28) * If patient develops fever, would check blood cultures 2 * Check a repeat sputum culture -10/11/2017 sputum revealed Heather albicans * All blood cultures and urine cultures this admission have been negative * MRSA screening on 10/08/2017 was positive by DNA probe * Started on Unasyn yesterday (10/19/17) by primary team * All previous antibiotics were stopped 10/15/2017 * Continue diuretics for CHF * Continue bronchodilators as well as Lorazepam for anxiety. Consider as needed morphine for air hunger * Patient on home dose of prednisone chronically of 5 mg daily * Prednisone increased to 40 mg daily effect of 10/20/2017 * Monitor supportively History of anemia * EGD 10/05/2017 with no active bleeding but positive for large hiatal hernia * H&H yesterday was stable at 9.7/32.0 * Status post 2 units of packed red blood cells since admission * Previous GI workup suggests small ulcer and small intestine * Further management by primary team/gastroenterology History of DVT/PE * Small right-sided PE on CTA of chest 10/08/2017 * Patient chronically on Coumadin 3 mg p.o. daily as an outpatient * 1 patient was admitted she was subtherapeutic with an INR of 1.3 * Coumadin was held secondary to anemia requiring transfusion of 2 units of packed red blood cells * Patient has been ordered TEDs/SCDs but they were not on at the time of my examination * Will check bilateral lower extremity duplex to rule out DVT * Start heparin 5000 units subcu every 8 hours for DVT prophylaxis * Hospitalist note indicates no chronic anticoagulation secondary to family discussion and risk for bleeding DVT prophylaxis * TEDs/SCDs ordered * Coumadin held secondary to transfusion dependent anemia on admission * Start heparin 5000 units subcu 3 times daily * Check lower extremity duplex to rule out recurrent DVT Thank you for including us in the care of this patient. We will continue to follow along with you. Data Medications: Current Inpatient Medications Medications (Trade) Dose Ordered Sig/Rosi Route Start Time Stop Time Status Last Admin Dose Admin Al Hydrox/Mg Hydrox/Simethicone (Maalox Max Susp) 15 ml Q4H PRN PO 10/02/17 21:00 11/01/17 20:59 Magnesium Hydroxide (Milk Of Magnesia Susp) 30 ml Q12H PRN PO 10/02/17 21:00 11/01/17 20:59 Ondansetron HCl (Zofran Inj) 4 mg Q6H PRN IV 10/02/17 21:00 11/01/17 20:59 10/16/17 18:09 4 MG Nitroglycerin (Nitrostat Tab) 0.4 mg UD PRN SL 10/02/17 21:00 11/01/17 20:59 Ferrous Sulfate (Feosol Tab) 325 mg BID PO 10/03/17 09:00 11/02/17 08:59 10/20/17 10:15 325 MG Salmeterol Xinafoate/ Fluticasone (Advair Diskus 250/50 Inh) 1 puff BID INH 10/03/17 09:00 11/02/17 08:59 10/20/17 08:42 1 PUFF Gabapentin (Neurontin Cap) 100 mg DAILY PO 10/03/17 09:00 11/02/17 08:59 10/20/17 10:17 100 MG Lactobacillus Acidophilus (Floranex Tab) 1 tab TIDM PO 10/03/17 07:30 11/02/17 07:29 10/20/17 08:38 1 TAB Lorazepam (Ativan Tab) 0.5 mg HS PRN PO 10/02/17 21:15 11/01/17 21:14 10/19/17 22:24 0.5 MG Magnesium Oxide (Mag-Ox Tab) 400 mg DAILY PO 10/03/17 09:00 11/02/17 08:59 10/20/17 08:38 400 MG Metoprolol Succinate (Toprol Xl Tab) 12.5 mg BID PO 10/03/17 09:00 11/02/17 08:59 10/20/17 08:43 12.5 MG Mirtazapine (Remeron Solutab) 15 mg HS PO 10/03/17 21:00 11/02/17 20:59 10/19/17 20:04 15 MG Paroxetine HCl (pAXil TAB) 40 mg DAILY PO 10/03/17 09:00 11/02/17 08:59 10/20/17 08:39 40 MG Potassium Chloride (Klor-Con M10) 10 meq BID PO 10/03/17 09:00 11/02/17 08:59 10/20/17 08:40 10 MEQ Ranitidine HCl (zANTac TAB) 300 mg HS PO 10/03/17 21:00 11/02/17 20:59 10/19/17 22:15 300 MG Sucralfate (Carafate Susp) 1 gm QID PO 10/03/17 17:00 11/02/17 16:59 10/20/17 08:48 1 GM Lidocaine (Lidoderm Patch 5%) 1 patch QAM TD 10/05/17 09:00 11/04/17 08:59 10/20/17 08:47 1 PATCH Miscellaneous (Remove Lidoderm Patch) 1 ea DAILY@21 N/A 10/04/17 21:00 11/03/17 20:59 10/19/17 22:29 1 EA Pantoprazole Sodium (Protonix Tab) 40 mg BID PO 10/05/17 21:00 11/04/17 20:59 10/19/17 20:05 40 MG Ipratropium [place] (Atrovent 0.02% 0.5MG/2.5ML Neb) 0.5 mg Q2R PRN INH 10/08/17 08:00 11/07/17 07:59 Levalbuterol (Xopenex 1.25MG/ 0.5ML Neb) 1.25 mg Q2R PRN INH 10/08/17 08:00 11/07/17 07:59 Ipratropium [place] (Atrovent 0.02% 0.5MG/2.5ML Neb) 0.5 mg Q4R INH 10/08/17 20:00 11/07/17 19:59 10/20/17 11:10 0.5 MG Levalbuterol (Xopenex 1.25MG/ 0.5ML Neb) 1.25 mg Q4R INH 10/08/17 20:00 11/07/17 19:59 10/20/17 11:10 1.25 MG Acetylcysteine (Mucomyst 20% Inh Soln) 3 ml Q8R INH 10/08/17 18:00 11/07/17 17:59 10/20/17 07:03 3 ML Miscellaneous (Fentanyl Patch Remove & Waste) 1 ea Q3D N/A 10/12/17 09:59 11/11/17 09:58 10/20/17 10:13 1 EA Miscellaneous Information (Check Fentanyl Patch Placement) 1 ea QS N/A 10/09/17 16:00 11/08/17 15:59 10/20/17 08:49 1 EA Heparin Sodium (Porcine) (Heparin 10 Unit/ ml 5 ml Flush) 5 ml PRN PRN FLUSH 10/10/17 13:30 11/09/17 13:29 10/20/17 06:45 5 ML Furosemide (Lasix Tab) 40 mg QAM PO 10/11/17 09:00 11/10/17 08:59 10/20/17 08:39 40 MG Acetaminophen 100 ml @ 400 mls/hr Q8H PRN IV 10/10/17 18:15 11/09/17 18:14 10/10/17 18:20 400 MLS/HR Guaifenesin (Mucinex Contr Rel Tab) 600 mg Q12 PO 10/11/17 21:00 11/10/17 20:59 10/20/17 08:42 600 MG Polyethylene (Miralax Powder Packet) 17 gm DAILY PO 10/14/17 09:00 11/01/17 20:59 10/20/17 08:38 17 GM Senna/Docusate Sodium (Senokot S Tab) 1 tab QAM PO 10/14/17 09:00 11/13/17 08:59 10/20/17 10:16 1 TAB Senna (Senokot Tab) 8.6 mg QPM PO 10/13/17 21:00 11/12/17 20:59 10/19/17 20:06 8.6 MG Bisacodyl (Dulcolax Tab) 5 mg BID PRN PO 10/13/17 17:45 11/12/17 17:44 Oxycodone/ Acetaminophen (Percocet 5-325mg Tab) pain not relieved by tylenol Q4H PRN PO 10/17/17 06:30 10/31/17 06:29 10/20/17 06:47 1 TAB Aspirin (Ecotrin Tab) 81 mg QAM PO 10/18/17 16:00 11/17/17 15:59 10/20/17 08:38 81 MG Benzocaine (Orajel 20% Oral Gel) 1 appln QID PRN MT 10/18/17 18:00 11/17/17 17:59 Prednisone (PredniSONE TAB) 40 mg DAILY PO 10/20/17 09:00 11/06/17 08:59 10/20/17 08:41 40 MG Ampicillin Sodium/ Sulbactam Sodium 3000 mg/Sodium Chloride 108 ml @ 200 mls/hr Q6H IV 10/19/17 17:00 10/21/17 16:59 10/20/17 10:58 200 MLS/HR Vital Signs: Date Time Temp Pulse Resp B/P (MAP) Pulse Ox O2 Delivery O2 Flow Rate FiO2 10/20/17 11:10 90 20 94 Nasal Cannula 4.0 10/20/17 07:06 37.1 97 24 176/103 (127) 95 2.0 10/20/17 07:03 99 20 100 Nasal Cannula 6.0 10/20/17 03:20 85 16 90 Nasal Cannula 5.0 10/20/17 00:04 Nasal Cannula 5.0 10/19/17 23:39 37.0 94 20 118/70 (86) 92 5.0 10/19/17 23:19 79 16 94 Nasal Cannula 5.0 10/19/17 22:00 Nasal Cannula 5.0 10/19/17 19:08 94 16 96 Mask 7.0 10/19/17 17:07 97 22 148/82 (104) 97 Oxymask 6.0 10/19/17 16:00 Oxymask 6.0 10/19/17 15:58 36.6 105 26 186/110 (135) 95 Oxymask 6.0 10/19/17 15:57 83 16 95 Nasal Cannula 5.0 10/19/17 15:45 28 85 Nasal Cannula 2.0 10/19/17 14:43 36.6 91 18 115/71 (86) 96 3.0 Laboratory Results: Last 24 Hours Test 10/20/17 10:23 Procalcitonin 0.28 ng/ml
[2017-10-20] MEDS ORDERED: HEPARIN SOD 5000 UNIT/0.5 ML CARP SQ ONE (14:00)
[2017-10-20] MEDS: PANTOprazole SOD 40 MG TAB PO SCH ×2 (14:00→21:41)
--- NOTE | 2017-10-20 15:31 | DIAGNOSTIC IMAGING REPORT ---
ULTRASOUND VENOUS DOPPLER LWR EXT BILA CLINICAL HISTORY: Acute hypoxia. hx of DVT/PE COMPARISON STUDY: 10/08/2017 FINDINGS: Real-time and color flow Doppler imaging were performed. Flow was seen within the femoral, popliteal and calf veins with no intraluminal thrombus demonstrated. The saphenous vein is patent. There is a 3 x 2 x 1 cm complex right popliteal fossa lesion with areas of calcific shadowing. This likely represents a complex popliteal fossa cyst. Clinical and/or imaging follow-up is recommended. IMPRESSION: No evidence of lower extremity DVT. Electronically signed by: Austin Harman M.D. 10/20/2017 3:30 PM Dictated Date/Time: 10/20/2017 2:55 PM
--- NOTE | 2017-10-20 16:50 | Progress Note ---
Medicine Progress Note Date & Time of Visit: Oct 20, 2017 at 16:40. Subjective Patient was more lethargic this AM per nursing, the fentanyl patch was removed and patient has been more awake the rest of the day but is still drowsy. Oxygen supplement decreased to 4L and patient is tolerating this without difficulty. No overnight events noted. Denies any Cp but reports feeling some SOB and has a nagging nonproductive cough. Also reports msk pain in her neck and shoulder. Objective Last 8 Hrs Date Time Temp Pulse Resp B/P (MAP) Pulse Ox O2 Delivery O2 Flow Rate FiO2 10/20/17 15:26 36.8 86 20 104/64 (77) 90 3.0 10/20/17 15:25 101 18 91 Nasal Cannula 4.0 10/20/17 11:10 90 20 94 Nasal Cannula 4.0 Physical Exam: GENERAL: Patient is in no acute distress. HEENT: No acute trauma, normocephalic, mucous membranes moist, no nasal congestion, no scleral icterus, conjunctivae clear NECK: No stridor, trachea is midline. LUNGS: Diminished bilaterally, no wheeze, no rhonchi, breath sounds equal. Bibasilar rales. HEART: Without murmurs gallops or rubs, regular rate and rhythm. ABDOMEN: Soft, nontender, bowel sounds positive EXTREMITIES: No cyanosis; trace LE edema NEUROLOGIC: Oriented x 3, drowsy, no acute motor or sensory deficits, no focal weakness. SKIN: No rash, no jaundice, no diaphoresis. Laboratory Results: Last 24 Hours Test 10/20/17 10:23 Procalcitonin 0.28 ng/ml Assessment & Plan ACUTE ON CHRONIC HYPOXIC RESPIRATORY FAILURE: -Severe Sepsis from suspected Aspiration Pneumonia has resolved -did require ICU and Bipap earlier in the admission for respiratory failure -CXR suggested pneumonia vs. pulmonary edema - on broad spectrum antibiotics, including Imipenem -cultures were negative -ID consulted, appreciate recs -was on Mucomyst inhalation, vibration vest, Mucinex, nebs as needed -was given an additional dose of IV Lasix -has a history of COPD per records as well but does not appear to be in an exacerbation -CXR from 10/19 - showed considerable improvement from previous -attempting to wean O2 as tolerated to baseline of 2.5-3L -Pulm reconsulted, planning to resume DVT prophylaxis and obtain LE doppler and thorax US to eval for effusions -was off of antibiotics, but unasyn restarted last night due to worsening hypoxia and symptoms and elevated WBC -continues to have a persistent cough that is non production -on oxygen above baseline requirements -dispo per family discussion with previous attending is to plan for discharge to [facility] when stable ACUTE DIASTOLIC CHF: -due to acute hypoxic events - was given IV Lasix for congestion and remains on PO lasix now -currently euvolemic -monitor fluid status, will likely need maintenance diuretics as she previously required HX of MULTIPLE VTE: -last CT chest finding of small pulmonary embolism in the right lung -not an anticoagulation candidate due to bleed risk, but was given a trial of coumadin for treatment of PE from 2016 HX of TAVR: -Status post bioprosthetic aortic valve replacement MULTIFACTORIAL ANEMIA: -likely a combination of anemia of CKD with anemia of blood loss and iron deficiency based on prior labs/hx -s/p transfusion with 2 units pRBCs just this admission -presented with symptomatic anemia/secondary to GI bleed -EGD done on October 05 by GI - no active GI bleeding noted, large hiatal hernia noted -was previously told her chronic bleeding was from the small intestine but had refused previous attempts at workup MYRTLE on CKD STAGE III: -Creatinine peaked at 1.94 -likely secondary to IV Lasix/diuresis as well as possible contrast induced MYRTLE -creatinine improved and remains <1.0 Current Inpatient Medications: Current Inpatient Medications Medications (Trade) Dose Ordered Sig/Rosi Route Start Time Stop Time Status Last Admin Dose Admin Al Hydrox/Mg Hydrox/Simethicone (Maalox Max Susp) 15 ml Q4H PRN PO 10/02/17 21:00 11/01/17 20:59 Magnesium Hydroxide (Milk Of Magnesia Susp) 30 ml Q12H PRN PO 10/02/17 21:00 11/01/17 20:59 Ondansetron HCl (Zofran Inj) 4 mg Q6H PRN IV 10/02/17 21:00 11/01/17 20:59 10/16/17 18:09 4 MG Nitroglycerin (Nitrostat Tab) 0.4 mg UD PRN SL 10/02/17 21:00 11/01/17 20:59 Ferrous Sulfate (Feosol Tab) 325 mg BID PO 10/03/17 09:00 11/02/17 08:59 10/20/17 10:15 325 MG Salmeterol Xinafoate/ Fluticasone (Advair Diskus 250/50 Inh) 1 puff BID INH 10/03/17 09:00 11/02/17 08:59 10/20/17 08:42 1 PUFF Gabapentin (Neurontin Cap) 100 mg DAILY PO 10/03/17 09:00 11/02/17 08:59 10/20/17 10:17 100 MG Lactobacillus Acidophilus (Floranex Tab) 1 tab TIDM PO 10/03/17 07:30 11/02/17 07:29 10/20/17 16:32 1 TAB Lorazepam (Ativan Tab) 0.5 mg HS PRN PO 10/02/17 21:15 11/01/17 21:14 10/19/17 22:24 0.5 MG Magnesium Oxide (Mag-Ox Tab) 400 mg DAILY PO 10/03/17 09:00 11/02/17 08:59 10/20/17 08:38 400 MG Metoprolol Succinate (Toprol Xl Tab) 12.5 mg BID PO 10/03/17 09:00 11/02/17 08:59 10/20/17 08:43 12.5 MG Mirtazapine (Remeron Solutab) 15 mg HS PO 10/03/17 21:00 11/02/17 20:59 10/19/17 20:04 15 MG Paroxetine HCl (pAXil TAB) 40 mg DAILY PO 10/03/17 09:00 11/02/17 08:59 10/20/17 08:39 40 MG Potassium Chloride (Klor-Con M10) 10 meq BID PO 10/03/17 09:00 11/02/17 08:59 10/20/17 08:40 10 MEQ Ranitidine HCl (zANTac TAB) 300 mg HS PO 10/03/17 21:00 11/02/17 20:59 10/19/17 22:15 300 MG Sucralfate (Carafate Susp) 1 gm QID PO 10/03/17 17:00 11/02/17 16:59 10/20/17 16:31 1 GM Lidocaine (Lidoderm Patch 5%) 1 patch QAM TD 10/05/17 09:00 11/04/17 08:59 10/20/17 08:47 1 PATCH Miscellaneous (Remove Lidoderm Patch) 1 ea DAILY@21 N/A 10/04/17 21:00 11/03/17 20:59 10/19/17 22:29 1 EA Pantoprazole Sodium (Protonix Tab) 40 mg BID PO 10/05/17 21:00 11/04/17 20:59 10/20/17 14:00 40 MG Ipratropium [place] (Atrovent 0.02% 0.5MG/2.5ML Neb) 0.5 mg Q2R PRN INH 10/08/17 08:00 11/07/17 07:59 Levalbuterol (Xopenex 1.25MG/ 0.5ML Neb) 1.25 mg Q2R PRN INH 10/08/17 08:00 11/07/17 07:59 Ipratropium [place] (Atrovent 0.02% 0.5MG/2.5ML Neb) 0.5 mg Q4R INH 10/08/17 20:00 11/07/17 19:59 10/20/17 15:18 0.5 MG Levalbuterol (Xopenex 1.25MG/ 0.5ML Neb) 1.25 mg Q4R INH 10/08/17 20:00 11/07/17 19:59 10/20/17 15:18 1.25 MG Acetylcysteine (Mucomyst 20% Inh Soln) 3 ml Q8R INH 10/08/17 18:00 11/07/17 17:59 10/20/17 15:19 3 ML Heparin Sodium (Porcine) (Heparin 10 Unit/ ml 5 ml Flush) 5 ml PRN PRN FLUSH 10/10/17 13:30 11/09/17 13:29 10/20/17 12:54 5 ML Furosemide (Lasix Tab) 40 mg QAM PO 10/11/17 09:00 11/10/17 08:59 10/20/17 08:39 40 MG Acetaminophen 100 ml @ 400 mls/hr Q8H PRN IV 10/10/17 18:15 11/09/17 18:14 10/10/17 18:20 400 MLS/HR Guaifenesin (Mucinex Contr Rel Tab) 600 mg Q12 PO 10/11/17 21:00 11/10/17 20:59 10/20/17 08:42 600 MG Polyethylene (Miralax Powder Packet) 17 gm DAILY PO 10/14/17 09:00 11/01/17 20:59 10/20/17 08:38 17 GM Senna/Docusate Sodium (Senokot S Tab) 1 tab QAM PO 10/14/17 09:00 11/13/17 08:59 10/20/17 10:16 1 TAB Senna (Senokot Tab) 8.6 mg QPM PO 10/13/17 21:00 11/12/17 20:59 10/19/17 20:06 8.6 MG Bisacodyl (Dulcolax Tab) 5 mg BID PRN PO 10/13/17 17:45 11/12/17 17:44 Oxycodone/ Acetaminophen (Percocet 5-325mg Tab) pain not relieved by tylenol Q4H PRN PO 10/17/17 06:30 10/31/17 06:29 10/20/17 06:47 1 TAB Aspirin (Ecotrin Tab) 81 mg QAM PO 10/18/17 16:00 11/17/17 15:59 10/20/17 08:38 81 MG Benzocaine (Orajel 20% Oral Gel) 1 appln QID PRN MT 10/18/17 18:00 11/17/17 17:59 Prednisone (PredniSONE TAB) 40 mg DAILY PO 10/20/17 09:00 11/06/17 08:59 10/20/17 08:41 40 MG Ampicillin Sodium/ Sulbactam Sodium 3000 mg/Sodium Chloride 108 ml @ 200 mls/hr Q6H IV 10/19/17 17:00 10/21/17 16:59 10/20/17 16:31 200 MLS/HR Heparin Sodium (Porcine) (Heparin Sq 5000 Unit/0.5ml) 5,000 unit Q8 SQ 10/20/17 22:00 11/19/17 21:59
--- NOTE | 2017-10-20 21:14 | Progress Note ---
Post ICU Progress Note Date & Time Oct 20, 2017 at 21:14 Vital Signs Vital Signs Past 12 Hours Date Time Temp Pulse Resp B/P (MAP) Pulse Ox O2 Delivery O2 Flow Rate FiO2 10/20/17 19:56 88 18 92 Nasal Cannula 4.0 10/20/17 16:00 91 Nasal Cannula 4.0 10/20/17 15:26 36.8 86 20 104/64 (77) 90 3.0 10/20/17 15:25 101 18 91 Nasal Cannula 4.0 10/20/17 11:10 90 20 94 Nasal Cannula 4.0 Notes Mental Status: see Notes Nausea / Vomiting: improving with treatment Pain: adequately controlled Airway Patency, RR, SpO2: see Notes BP & HR: stable & adequate Patient is an 82-year-old female who was initially admitted to the ICU for acute onset of respiratory distress in the setting of LEFT lower lobe pneumonia with superimposed CHF. Her symptoms improved with 1 night of BiPAP followed by aggressive pulmonary toilet. She has been downgraded from ICU status, but has had some residual issues with breathing as well as with apparent anxiety. Per notes, labs, and imaging studies, patient has seem to improve. Patient is resting comfortably on evaluation and sleeping. Given her recent episodes of anxiety, did not wish to wait the patient for risk of making her more anxious. Consider outpatient follow up in 1 to 2 weeks with: Pulmonary, PCP Repeat imaging needed: CXR if any changes in breathing, however most recent CXR shows improvement of LLL Pneumonia. Follow up cultures: Per primary service. Reviewed progress notes, labs, and inpatient medication list Continue current management Additional recommendations: None at this time. Please feel free to reconsult as needed.
[2017-10-20] MEDS: RANITIDINE HCL 150 MG TAB PO SCH (21:40)
[2017-10-20] MEDS: SENNA 8.6 MG TAB PO SCH (21:40)
[2017-10-20] MEDS: MIRTAZAPINE SOLTAB 15 MG PO SCH (21:41)
[2017-10-20] MEDS: HEPARIN SOD 5000 UNIT/0.5 ML CARP SQ SCH (21:43)
[2017-10-21] VITALS (11 sets, daily range): BP systolic 110–125; BP diastolic 63–65; PULSE 68–89; TEMP 36.4–36.5; O2SAT 90–99
[2017-10-21] MEDS: OXYCODONE/ACETAMINOPHEN 5-325 TAB PO PRN ×4 (00:33→19:55)
[2017-10-21] MEDS: LEVALBUTEROL 1.25MG/0.5ML NEB INH SCH ×6 (03:15→23:40)
[2017-10-21] MEDS: IPRATROPIUM BROMIDE NEB SOLN 0.02% 2.5 ML VIAL INH SCH ×6 (03:15→23:39)
[2017-10-21] MEDS: AMPICILLIN/SULBACTAM SOD INJ 3,000 MG in SODIUM CHLORIDE 0.9% 100ML 100 ML IV SCH ×2 (04:48→13:41)
[2017-10-21] MEDS: HEPARIN SOD 5000 UNIT/0.5 ML CARP SQ SCH ×3 (04:53→21:47)
[2017-10-21] MEDS: LEVALBUTEROL 1.25MG/0.5ML NEB INH PRN (05:34)
[2017-10-21] MEDS: IPRATROPIUM BROMIDE NEB SOLN 0.02% 2.5 ML VIAL INH PRN (05:34)
[2017-10-21] MEDS: ACETYLCYSTEINE 20% INHAL SOLN ***DISPENSED BY RESP. INH SCH ×3 (07:09→23:40)
[2017-10-21] MEDS: LACTOBACILLUS ACIDOPHILUS (FLORANEX) TAB PO SCH ×3 (08:15→16:31)
[2017-10-21] MEDS: SUCRALFATE 1 GM/10 ML UDC PO SCH ×4 (08:15→21:33)
[2017-10-21] MEDS: FLUTICASONE/SALMETEROL 250/50 (ADVAIR) 14 PUFF/1 INHALER INH SCH ×2 (08:15→21:33)
[2017-10-21] MEDS: LIDODERM (LIDOCAINE) PATCH 5% TD SCH (08:16)
[2017-10-21] MEDS: MAGNESIUM OXIDE 400 MG TAB PO SCH (08:16)
[2017-10-21] MEDS: FUROSEMIDE 40 MG TAB PO SCH (08:17)
[2017-10-21] MEDS: DOCUSATE SODIUM/SENNA 50/8.6MG TAB PO SCH (08:17)
[2017-10-21] MEDS: PAROXETINE 20 MG TAB PO SCH (08:17)
[2017-10-21] MEDS: POLYETHYLENE (MIRALAX) 17 GM PACK PO SCH (08:20)
[2017-10-21] MEDS: PANTOprazole SOD 40 MG TAB PO SCH ×2 (08:21→21:40)
[2017-10-21] MEDS: ASPIRIN 81 MG ECTAB PO SCH (08:21)
[2017-10-21] MEDS: GUAIFENESIN 600 MG TABCR PO SCH ×2 (08:21→21:40)
[2017-10-21] MEDS: GABAPENTIN 100 MG CAP PO SCH (08:22)
[2017-10-21] MEDS: METOPROLOL SUCC 25MG EXT REL TAB PO SCH ×2 (08:22→21:39)
[2017-10-21] MEDS: POTASSIUM CHLORIDE 10 MEQ TABCR PO SCH ×2 (08:23→21:35)
[2017-10-21] MEDS: FERROUS SULFATE 325 MG TAB PO SCH ×2 (08:23→21:34)
[2017-10-21 09:37] LABS: HEMATOCRIT 26.6 % (37-47); HEMOGLOBIN 8.4 g/dL (12.0-16.0); MEAN CELL VOLUME 92.7 fL (80-100); MEAN CORPUSCULAR HEMOGLOBIN 29.3 pg (25-34); MEAN CORPUSCULAR HGB CONC 31.6 g/dl (32-36); MEAN PLATELET VOLUME 8.9 fL (7.4-10.4); PLATELET COUNT 384 K/uL (130-400); RED CELL DISTRIBUTION WIDTH SD 57.5 fL (36.4-46.3); WHITE BLOOD COUNT 16.99 K/uL (4.8-10.8)
[2017-10-21 10:35] LABS: CREATININE 1.42 mg/dl (0.60-1.20); POTASSIUM 3.5 mmol/L (3.5-5.1)
[2017-10-21 11:45] LABS: CALCIUM 11.7 mg/dl (8.5-10.1)
[2017-10-21] MEDS: FENTANYL 12 MCG/HR TDSY TD SCH (13:46)
[2017-10-21] MEDS: CHECK FENTANYL PATCH PLACEMENT SCH ×2 (16:29→23:49)
--- NOTE | 2017-10-21 18:36 | Progress Note ---
Medicine Progress Note Date & Time of Visit: Oct 21, 2017 at 18:36. Subjective Patient states she feels alot better today, feels stronger and denies any difficulty breathing today. Discussed progress with the patient and her son, as well as the possibility of rehab upon discharge. Has been moving bowels without difficulty. No overnight events noted. Objective Last 8 Hrs Date Time Temp Pulse Resp B/P (MAP) Pulse Ox O2 Delivery O2 Flow Rate FiO2 10/21/17 14:54 87 16 97 Nasal Cannula 2.0 10/21/17 14:19 36.4 86 20 125/63 (83) 94 3.0 10/21/17 11:18 89 16 92 Nasal Cannula 2.0 Physical Exam: GENERAL: Patient is in no acute distress. HEENT: No acute trauma, normocephalic, mucous membranes moist, no nasal congestion, no scleral icterus, conjunctivae clear NECK: No stridor, trachea is midline. LUNGS: Diminished bilaterally, no wheeze, no rhonchi, breath sounds equal. Bibasilar rales. HEART: Without murmurs gallops or rubs, regular rate and rhythm. ABDOMEN: Soft, nontender, bowel sounds positive EXTREMITIES: No cyanosis; trace LE edema NEUROLOGIC: Oriented x 3, no acute motor or sensory deficits, no focal weakness. SKIN: No rash, no jaundice, no diaphoresis. Laboratory Results: Last 24 Hours Test 10/21/17 08:54 White Blood Count 16.99 K/uL Red Blood Count 2.87 M/uL Hemoglobin 8.4 g/dL Hematocrit 26.6 % Mean Corpuscular Volume 92.7 fL Mean Corpuscular Hemoglobin 29.3 pg Mean Corpuscular Hemoglobin Concent 31.6 g/dl RDW Standard Deviation 57.5 fL RDW Coefficient of Variation 17.0 % Platelet Count 384 K/uL Mean Platelet Volume 8.9 fL Sodium Level 135 mmol/L Potassium Level 3.5 mmol/L Chloride Level 98 mmol/L Carbon Dioxide Level 31 mmol/L Anion Gap 6.0 mmol/L Blood Urea Nitrogen 32 mg/dl Creatinine 1.42 mg/dl Est Creatinine Clear Calc Drug Dose 25.5 ml/min Estimated GFR () 39.2 Estimated GFR (Non- 33.8 BUN/Creatinine Ratio 22.5 Random Glucose 123 mg/dl Calcium Level 11.7 mg/dl Assessment & Plan ACUTE ON CHRONIC HYPOXIC RESPIRATORY FAILURE: -Severe Sepsis from suspected Aspiration Pneumonia has resolved -did require ICU and Bipap earlier in the admission for respiratory failure -CXR suggested pneumonia vs. pulmonary edema - on broad spectrum antibiotics, including Imipenem -cultures were negative -ID consulted, appreciate recs -was on Mucomyst inhalation, vibration vest, Mucinex, nebs as needed -was given an additional dose of IV Lasix -has a history of COPD per records as well but does not appear to be in an exacerbation -CXR from 10/19 - showed considerable improvement from previous -attempting to wean O2 as tolerated to baseline of 2.5-3L -Pulm reconsulted, planning to resume DVT prophylaxis and obtain LE doppler and thorax US to eval for effusions -was off of antibiotics, but unasyn restarted thursday due to worsening hypoxia and symptoms and elevated WBC -continues to have a persistent cough that is non production -on oxygen at baseline requirements today -dispo per family discussion with previous attending is to plan for discharge to [facility] when stable ACUTE DIASTOLIC CHF: -due to acute hypoxic events - was given IV Lasix for congestion and remains on PO lasix now -currently euvolemic -monitor fluid status, will likely need maintenance diuretics as she previously required HX of MULTIPLE VTE: -last CT chest finding of small pulmonary embolism in the right lung -not an anticoagulation candidate due to bleed risk, but was given a trial of coumadin for treatment of PE from 2016 -LE doppler negative HX of TAVR: -Status post bioprosthetic aortic valve replacement MULTIFACTORIAL ANEMIA: -likely a combination of anemia of CKD with anemia of blood loss and iron deficiency based on prior labs/hx -s/p transfusion with 2 units pRBCs just this admission -presented with symptomatic anemia/secondary to GI bleed -EGD done on October 05 by GI - no active GI bleeding noted, large hiatal hernia noted -was previously told her chronic bleeding was from the small intestine but had refused previous attempts at workup MYRTLE on CKD STAGE III: resolved -Creatinine peaked at 1.94 -likely secondary to IV Lasix/diuresis as well as possible contrast induced MYRTLE -creatinine improved Current Inpatient Medications: Current Inpatient Medications Medications (Trade) Dose Ordered Sig/Rosi Route Start Time Stop Time Status Last Admin Dose Admin Al Hydrox/Mg Hydrox/Simethicone (Maalox Max Susp) 15 ml Q4H PRN PO 10/02/17 21:00 11/01/17 20:59 Magnesium Hydroxide (Milk Of Magnesia Susp) 30 ml Q12H PRN PO 10/02/17 21:00 11/01/17 20:59 Ondansetron HCl (Zofran Inj) 4 mg Q6H PRN IV 10/02/17 21:00 11/01/17 20:59 10/16/17 18:09 4 MG Nitroglycerin (Nitrostat Tab) 0.4 mg UD PRN SL 10/02/17 21:00 11/01/17 20:59 Ferrous Sulfate (Feosol Tab) 325 mg BID PO 10/03/17 09:00 11/02/17 08:59 10/21/17 08:23 325 MG Salmeterol Xinafoate/ Fluticasone (Advair Diskus 250/50 Inh) 1 puff BID INH 10/03/17 09:00 11/02/17 08:59 10/21/17 08:15 1 PUFF Gabapentin (Neurontin Cap) 100 mg DAILY PO 10/03/17 09:00 11/02/17 08:59 10/21/17 08:22 100 MG Lactobacillus Acidophilus (Floranex Tab) 1 tab TIDM PO 10/03/17 07:30 11/02/17 07:29 10/21/17 16:31 1 TAB Lorazepam (Ativan Tab) 0.5 mg HS PRN PO 10/02/17 21:15 11/01/17 21:14 10/19/17 22:24 0.5 MG Magnesium Oxide (Mag-Ox Tab) 400 mg DAILY PO 10/03/17 09:00 11/02/17 08:59 10/21/17 08:16 400 MG Metoprolol Succinate (Toprol Xl Tab) 12.5 mg BID PO 10/03/17 09:00 11/02/17 08:59 10/21/17 08:22 12.5 MG Mirtazapine (Remeron Solutab) 15 mg HS PO 10/03/17 21:00 11/02/17 20:59 10/20/17 21:41 15 MG Paroxetine HCl (pAXil TAB) 40 mg DAILY PO 10/03/17 09:00 11/02/17 08:59 10/21/17 08:17 40 MG Potassium Chloride (Klor-Con M10) 10 meq BID PO 10/03/17 09:00 11/02/17 08:59 10/21/17 08:23 10 MEQ Ranitidine HCl (zANTac TAB) 300 mg HS PO 10/03/17 21:00 11/02/17 20:59 10/20/17 21:40 300 MG Sucralfate (Carafate Susp) 1 gm QID PO 10/03/17 17:00 11/02/17 16:59 10/21/17 16:29 1 GM Lidocaine (Lidoderm Patch 5%) 1 patch QAM TD 10/05/17 09:00 11/04/17 08:59 10/21/17 08:16 1 PATCH Miscellaneous (Remove Lidoderm Patch) 1 ea DAILY@21 N/A 10/04/17 21:00 11/03/17 20:59 10/20/17 21:59 1 EA Pantoprazole Sodium (Protonix Tab) 40 mg BID PO 10/05/17 21:00 11/04/17 20:59 10/21/17 08:21 40 MG Ipratropium [place] (Atrovent 0.02% 0.5MG/2.5ML Neb) 0.5 mg Q2R PRN INH 10/08/17 08:00 11/07/17 07:59 10/21/17 05:34 0.5 MG Levalbuterol (Xopenex 1.25MG/ 0.5ML Neb) 1.25 mg Q2R PRN INH 10/08/17 08:00 11/07/17 07:59 10/21/17 05:34 1.25 MG Ipratropium [place] (Atrovent 0.02% 0.5MG/2.5ML Neb) 0.5 mg Q4R INH 10/08/17 20:00 11/07/17 19:59 10/21/17 14:54 0.5 MG Levalbuterol (Xopenex 1.25MG/ 0.5ML Neb) 1.25 mg Q4R INH 10/08/17 20:00 11/07/17 19:59 10/21/17 14:54 1.25 MG Acetylcysteine (Mucomyst 20% Inh Soln) 3 ml Q8R INH 10/08/17 18:00 11/07/17 17:59 10/21/17 14:54 3 ML Heparin Sodium (Porcine) (Heparin 10 Unit/ ml 5 ml Flush) 5 ml PRN PRN FLUSH 10/10/17 13:30 11/09/17 13:29 10/21/17 00:23 5 ML Furosemide (Lasix Tab) 40 mg QAM PO 10/11/17 09:00 11/10/17 08:59 10/21/17 08:17 40 MG Acetaminophen 100 ml @ 400 mls/hr Q8H PRN IV 10/10/17 18:15 11/09/17 18:14 10/10/17 18:20 400 MLS/HR Guaifenesin (Mucinex Contr Rel Tab) 600 mg Q12 PO 10/11/17 21:00 11/10/17 20:59 10/21/17 08:21 600 MG Polyethylene (Miralax Powder Packet) 17 gm DAILY PO 10/14/17 09:00 11/01/17 20:59 10/21/17 08:20 17 GM Senna/Docusate Sodium (Senokot S Tab) 1 tab QAM PO 10/14/17 09:00 11/13/17 08:59 10/21/17 08:17 1 TAB Senna (Senokot Tab) 8.6 mg QPM PO 10/13/17 21:00 11/12/17 20:59 10/20/17 21:40 8.6 MG Bisacodyl (Dulcolax Tab) 5 mg BID PRN PO 10/13/17 17:45 11/12/17 17:44 Oxycodone/ Acetaminophen (Percocet 5-325mg Tab) pain not relieved by tylenol Q4H PRN PO 10/17/17 06:30 10/31/17 06:29 10/21/17 14:24 1 TAB Aspirin (Ecotrin Tab) 81 mg QAM PO 10/18/17 16:00 11/17/17 15:59 10/21/17 08:21 81 MG Benzocaine (Orajel 20% Oral Gel) 1 appln QID PRN MT 10/18/17 18:00 11/17/17 17:59 Prednisone (PredniSONE TAB) 40 mg DAILY PO 10/20/17 09:00 11/06/17 08:59 10/21/17 08:21 40 MG Heparin Sodium (Porcine) (Heparin Sq 5000 Unit/0.5ml) 5,000 unit Q8 SQ 10/20/17 22:00 11/19/17 21:59 10/21/17 13:26 5,000 UNIT Fentanyl (Duragesic Patch) 12 mcg Q72H TD 10/21/17 13:30 11/04/17 13:29 10/21/17 13:46 12 MCG Miscellaneous (Fentanyl Patch Remove & Waste) 1 ea Q3D N/A 10/24/17 13:29 11/23/17 13:28 Miscellaneous Information (Check Fentanyl Patch Placement) 1 ea QS N/A 10/21/17 16:00 11/20/17 15:59 10/21/17 16:29 1 EA
--- NOTE | 2017-10-21 19:59 | Pulmonology Progress Note ---
Pulmonary Progress Note Date of Service Oct 21, 2017. Attending Dr. Dallas Subjective Patient seen at bedside. Much improved today. More energy. Talkative. No conversational dyspnea. Was able to ambulate from the bed to her chair for dinner. Aeration improved. No bronchospasm the patient does have some scattered wheezes. She denies fever or chills. Continues with white to clear sputum Objective GENERAL : No acute distress. Appears tired EYES: No icterus, gaze conjugate NOSE: No evidence of epistaxis. Nasal cannula in place MOUTH: No lesions or candidiasis. Mucosa moist NECK: Supple. No stridor LUNGS: CTA B/L, no wheezes, rales or rhonchi. Decreased breath sounds but with some improvement HEART: Regular, rate controlled ABDOMEN: Soft, NT, ND, BS Present EXTREMITIES: No LE edema, pedal pulses intact. Yellow socks in place NEURO: A&OX3 Assessment & Plan Hypoxia * Patient had worsening hypoxia with associated anxiety * Responded well to 2 mg of IV morphine sulfate * Oxygen has been titrated to 3 L/min by nasal cannula (down from 6 L last evening) * No indication for arterial blood gas at this time * Patient has increased leukocytosis concerning for developing infection * Pro-calcitonin level 0.28 -not suggestive of infection * Repeat sputum culture -10/11/2017 sputum revealed Heather albicans * All blood cultures and urine cultures this admission have been negative * MRSA screening on 10/08/2017 was positive by DNA probe * Started on Unasyn yesterday (10/19/17) by primary team -no indication for antibiotics per pulmonary standpoint * All previous antibiotics were stopped 10/15/2017 * Continue diuretics for CHF * Continue bronchodilators as well as Lorazepam for anxiety. Consider PRN morphine for air hunger * Patient on home dose of prednisone chronically of 5 mg daily * Prednisone increased to 40 mg daily effective 10/20/2017 -suggest cutting back down to 5 mg -no taper indicated * Monitor supportively History of anemia * EGD 10/05/2017 with no active bleeding but positive for large hiatal hernia * H&H yesterday was stable at 9.7/32.0 -now 8.4/26.6 * Status post 2 units of packed red blood cells at time of admission * Previous GI workup suggests small ulcer and small intestine * Further management by primary team/gastroenterology History of DVT/PE * Small right-sided PE on CTA of chest 10/08/2017 * Patient chronically on Coumadin 3 mg p.o. daily as an outpatient * 1 patient was admitted she was subtherapeutic with an INR of 1.3 * Coumadin was held secondary to anemia requiring transfusion of 2 units of packed red blood cells * Patient has been ordered TEDs/SCDs but they were not on at the time of my examination * Bilateral lower extremity duplex negative for DVT * Heparin 5000 units subcu every 8 hours for DVT prophylaxis started 10/20/2017. Hold if heparin drops further * Hospitalist note indicates no chronic anticoagulation secondary to family discussion and risk for bleeding DVT prophylaxis * TEDs/SCDs ordered * Coumadin held secondary to transfusion dependent anemia on admission * Started heparin 5000 units subcu q8h 10/20/17 * Lower extremity duplex negative for recurrent DVT Thank you for including us in the care of this patient. We will sign off at this time. Please feel free to reconsult if patient's clinical condition worsens. Data Medications: Current Inpatient Medications Medications (Trade) Dose Ordered Sig/Rosi Route Start Time Stop Time Status Last Admin Dose Admin Al Hydrox/Mg Hydrox/Simethicone (Maalox Max Susp) 15 ml Q4H PRN PO 10/02/17 21:00 11/01/17 20:59 Magnesium Hydroxide (Milk Of Magnesia Susp) 30 ml Q12H PRN PO 10/02/17 21:00 11/01/17 20:59 Ondansetron HCl (Zofran Inj) 4 mg Q6H PRN IV 10/02/17 21:00 11/01/17 20:59 10/16/17 18:09 4 MG Nitroglycerin (Nitrostat Tab) 0.4 mg UD PRN SL 10/02/17 21:00 11/01/17 20:59 Ferrous Sulfate (Feosol Tab) 325 mg BID PO 10/03/17 09:00 11/02/17 08:59 10/21/17 08:23 325 MG Salmeterol Xinafoate/ Fluticasone (Advair Diskus 250/50 Inh) 1 puff BID INH 10/03/17 09:00 11/02/17 08:59 10/21/17 08:15 1 PUFF Gabapentin (Neurontin Cap) 100 mg DAILY PO 10/03/17 09:00 11/02/17 08:59 10/21/17 08:22 100 MG Lactobacillus Acidophilus (Floranex Tab) 1 tab TIDM PO 10/03/17 07:30 11/02/17 07:29 10/21/17 16:31 1 TAB Lorazepam (Ativan Tab) 0.5 mg HS PRN PO 10/02/17 21:15 11/01/17 21:14 10/19/17 22:24 0.5 MG Magnesium Oxide (Mag-Ox Tab) 400 mg DAILY PO 10/03/17 09:00 11/02/17 08:59 10/21/17 08:16 400 MG Metoprolol Succinate (Toprol Xl Tab) 12.5 mg BID PO 10/03/17 09:00 11/02/17 08:59 10/21/17 08:22 12.5 MG Mirtazapine (Remeron Solutab) 15 mg HS PO 10/03/17 21:00 11/02/17 20:59 10/20/17 21:41 15 MG Paroxetine HCl (pAXil TAB) 40 mg DAILY PO 10/03/17 09:00 11/02/17 08:59 10/21/17 08:17 40 MG Potassium Chloride (Klor-Con M10) 10 meq BID PO 10/03/17 09:00 11/02/17 08:59 10/21/17 08:23 10 MEQ Ranitidine HCl (zANTac TAB) 300 mg HS PO 10/03/17 21:00 11/02/17 20:59 10/20/17 21:40 300 MG Sucralfate (Carafate Susp) 1 gm QID PO 10/03/17 17:00 11/02/17 16:59 10/21/17 16:29 1 GM Lidocaine (Lidoderm Patch 5%) 1 patch QAM TD 10/05/17 09:00 11/04/17 08:59 10/21/17 08:16 1 PATCH Miscellaneous (Remove Lidoderm Patch) 1 ea DAILY@21 N/A 10/04/17 21:00 11/03/17 20:59 10/20/17 21:59 1 EA Pantoprazole Sodium (Protonix Tab) 40 mg BID PO 10/05/17 21:00 11/04/17 20:59 10/21/17 08:21 40 MG Ipratropium [place] (Atrovent 0.02% 0.5MG/2.5ML Neb) 0.5 mg Q2R PRN INH 10/08/17 08:00 11/07/17 07:59 10/21/17 05:34 0.5 MG Levalbuterol (Xopenex 1.25MG/ 0.5ML Neb) 1.25 mg Q2R PRN INH 10/08/17 08:00 11/07/17 07:59 10/21/17 05:34 1.25 MG Ipratropium [place] (Atrovent 0.02% 0.5MG/2.5ML Neb) 0.5 mg Q4R INH 10/08/17 20:00 11/07/17 19:59 10/21/17 14:54 0.5 MG Levalbuterol (Xopenex 1.25MG/ 0.5ML Neb) 1.25 mg Q4R INH 10/08/17 20:00 11/07/17 19:59 10/21/17 14:54 1.25 MG Acetylcysteine (Mucomyst 20% Inh Soln) 3 ml Q8R INH 10/08/17 18:00 11/07/17 17:59 10/21/17 14:54 3 ML Heparin Sodium (Porcine) (Heparin 10 Unit/ ml 5 ml Flush) 5 ml PRN PRN FLUSH 10/10/17 13:30 11/09/17 13:29 10/21/17 00:23 5 ML Furosemide (Lasix Tab) 40 mg QAM PO 10/11/17 09:00 11/10/17 08:59 10/21/17 08:17 40 MG Acetaminophen 100 ml @ 400 mls/hr Q8H PRN IV 10/10/17 18:15 11/09/17 18:14 10/10/17 18:20 400 MLS/HR Guaifenesin (Mucinex Contr Rel Tab) 600 mg Q12 PO 10/11/17 21:00 11/10/17 20:59 10/21/17 08:21 600 MG Polyethylene (Miralax Powder Packet) 17 gm DAILY PO 10/14/17 09:00 11/01/17 20:59 10/21/17 08:20 17 GM Senna/Docusate Sodium (Senokot S Tab) 1 tab QAM PO 10/14/17 09:00 11/13/17 08:59 10/21/17 08:17 1 TAB Senna (Senokot Tab) 8.6 mg QPM PO 10/13/17 21:00 11/12/17 20:59 10/20/17 21:40 8.6 MG Bisacodyl (Dulcolax Tab) 5 mg BID PRN PO 10/13/17 17:45 11/12/17 17:44 Oxycodone/ Acetaminophen (Percocet 5-325mg Tab) pain not relieved by tylenol Q4H PRN PO 10/17/17 06:30 10/31/17 06:29 10/21/17 14:24 1 TAB Aspirin (Ecotrin Tab) 81 mg QAM PO 10/18/17 16:00 11/17/17 15:59 10/21/17 08:21 81 MG Benzocaine (Orajel 20% Oral Gel) 1 appln QID PRN MT 10/18/17 18:00 11/17/17 17:59 Prednisone (PredniSONE TAB) 40 mg DAILY PO 10/20/17 09:00 11/06/17 08:59 10/21/17 08:21 40 MG Heparin Sodium (Porcine) (Heparin Sq 5000 Unit/0.5ml) 5,000 unit Q8 SQ 10/20/17 22:00 11/19/17 21:59 10/21/17 13:26 5,000 UNIT Fentanyl (Duragesic Patch) 12 mcg Q72H TD 10/21/17 13:30 11/04/17 13:29 10/21/17 13:46 12 MCG Miscellaneous (Fentanyl Patch Remove & Waste) 1 ea Q3D N/A 10/24/17 13:29 11/23/17 13:28 Miscellaneous Information (Check Fentanyl Patch Placement) 1 ea QS N/A 10/21/17 16:00 11/20/17 15:59 10/21/17 16:29 1 EA I & O: 24-Hour Column 10/22/17 08:00 Intake Total 1083 ml Output Total 350 ml Balance 733 ml Vital Signs: Date Time Temp Pulse Resp B/P (MAP) Pulse Ox O2 Delivery O2 Flow Rate FiO2 10/21/17 16:00 97 Nasal Cannula 3.0 10/21/17 14:54 87 16 97 Nasal Cannula 2.0 10/21/17 14:19 36.4 86 20 125/63 (83) 94 3.0 10/21/17 11:18 89 16 92 Nasal Cannula 2.0 10/21/17 08:10 36.5 83 16 110/65 (80) 97 Nasal Cannula 2.0 10/21/17 08:00 96 Nasal Cannula 2.0 10/21/17 07:09 81 16 99 Nasal Cannula 4.0 10/21/17 05:34 86 16 93 Nasal Cannula 4.0 10/21/17 03:15 84 16 93 Nasal Cannula 4.0 10/21/17 00:00 Nasal Cannula 4.0 10/20/17 23:17 78 16 93 Nasal Cannula 4.0 10/20/17 23:03 36.5 82 18 132/65 (87) 93 2.0 10/20/17 19:56 88 18 92 Nasal Cannula 4.0 Laboratory Results: Last 24 Hours Test 10/21/17 08:54 White Blood Count 16.99 K/uL Red Blood Count 2.87 M/uL Hemoglobin 8.4 g/dL Hematocrit 26.6 % Mean Corpuscular Volume 92.7 fL Mean Corpuscular Hemoglobin 29.3 pg Mean Corpuscular Hemoglobin Concent 31.6 g/dl RDW Standard Deviation 57.5 fL RDW Coefficient of Variation 17.0 % Platelet Count 384 K/uL Mean Platelet Volume 8.9 fL Sodium Level 135 mmol/L Potassium Level 3.5 mmol/L Chloride Level 98 mmol/L Carbon Dioxide Level 31 mmol/L Anion Gap 6.0 mmol/L Blood Urea Nitrogen 32 mg/dl Creatinine 1.42 mg/dl Est Creatinine Clear Calc Drug Dose 25.5 ml/min Estimated GFR () 39.2 Estimated GFR (Non- 33.8 BUN/Creatinine Ratio 22.5 Random Glucose 123 mg/dl Calcium Level 11.7 mg/dl
[2017-10-21] MEDS: LORAZEPAM 0.5 MG TAB PO PRN (21:31)
[2017-10-21] MEDS: RANITIDINE HCL 150 MG TAB PO SCH (21:36)
[2017-10-21] MEDS: SENNA 8.6 MG TAB PO SCH (21:39)
[2017-10-21] MEDS: MIRTAZAPINE SOLTAB 15 MG PO SCH (21:40)
[2017-10-22] VITALS (23 sets, daily range): BP systolic 113–155; BP diastolic 64–81; PULSE 67–91; TEMP 36.4–37; O2SAT 92–98
[2017-10-22] MEDS: OXYCODONE/ACETAMINOPHEN 5-325 TAB PO PRN ×3 (03:33→21:22)
[2017-10-22] MEDS: IPRATROPIUM BROMIDE NEB SOLN 0.02% 2.5 ML VIAL INH SCH ×6 (03:56→23:54)
[2017-10-22] MEDS: LEVALBUTEROL 1.25MG/0.5ML NEB INH SCH ×6 (03:56→23:55)
[2017-10-22] MEDS: HEPARIN SOD 5000 UNIT/0.5 ML CARP SQ SCH (06:00)
[2017-10-22 06:57] LABS: CALCIUM 10.4 mg/dl (8.5-10.1); CREATININE 1.28 mg/dl (0.60-1.20); HEMATOCRIT 21.9 % (37-47); HEMOGLOBIN 6.8 g/dL (12.0-16.0); MEAN CELL VOLUME 93.2 fL (80-100); MEAN CORPUSCULAR HEMOGLOBIN 28.9 pg (25-34); MEAN CORPUSCULAR HGB CONC 31.1 g/dl (32-36); MEAN PLATELET VOLUME 8.9 fL (7.4-10.4); PLATELET COUNT 364 K/uL (130-400); POTASSIUM 4.1 mmol/L (3.5-5.1); RED CELL DISTRIBUTION WIDTH SD 58.2 fL (36.4-46.3)
[2017-10-22] MEDS: ACETYLCYSTEINE 20% INHAL SOLN ***DISPENSED BY RESP. INH SCH ×3 (07:12→23:54)
[2017-10-22] MEDS: CHECK FENTANYL PATCH PLACEMENT SCH ×2 (07:44→16:34)
[2017-10-22 07:57] LABS: HEMATOCRIT 22.6 % (37-47); HEMOGLOBIN 7.1 g/dL (12.0-16.0); MEAN CELL VOLUME 93.4 fL (80-100); MEAN CORPUSCULAR HEMOGLOBIN 29.3 pg (25-34); MEAN PLATELET VOLUME 8.6 fL (7.4-10.4); PLATELET COUNT 362 K/uL (130-400); RED CELL DISTRIBUTION WIDTH CV 16.8 % (11.5-14.5); RED CELL DISTRIBUTION WIDTH SD 57.7 fL (36.4-46.3); WHITE BLOOD COUNT 10.93 K/uL (4.8-10.8)
[2017-10-22 08:05] LABS: MEAN CORPUSCULAR HGB CONC 31.4 g/dl (32-36)
[2017-10-22] MEDS ORDERED: FUROSEMIDE INJ 20 MG in SYRINGE 0 ML IV ONE (09:30)
[2017-10-22] MEDS ORDERED: ACETAMINOPHEN 325 MG TAB PO SCH (09:30)
[2017-10-22] MEDS: MAGNESIUM OXIDE 400 MG TAB PO SCH (09:36)
[2017-10-22] MEDS: METOPROLOL SUCC 25MG EXT REL TAB PO SCH ×2 (09:36→21:17)
[2017-10-22] MEDS: GUAIFENESIN 600 MG TABCR PO SCH ×2 (09:37→21:12)
[2017-10-22] MEDS: GABAPENTIN 100 MG CAP PO SCH (09:37)
[2017-10-22] MEDS: PAROXETINE 20 MG TAB PO SCH (09:37)
[2017-10-22] MEDS: POTASSIUM CHLORIDE 10 MEQ TABCR PO SCH ×2 (09:37→21:12)
[2017-10-22] MEDS: FUROSEMIDE 40 MG TAB PO SCH (09:38)
[2017-10-22] MEDS: ASPIRIN 81 MG ECTAB PO SCH (09:38)
[2017-10-22] MEDS: SUCRALFATE 1 GM/10 ML UDC PO SCH ×4 (09:38→21:11)
[2017-10-22] MEDS: LACTOBACILLUS ACIDOPHILUS (FLORANEX) TAB PO SCH ×3 (09:38→16:35)
[2017-10-22] MEDS: PANTOprazole SOD 40 MG TAB PO SCH ×2 (09:39→21:13)
[2017-10-22] MEDS: FLUTICASONE/SALMETEROL 250/50 (ADVAIR) 14 PUFF/1 INHALER INH SCH ×2 (09:39→21:11)
[2017-10-22] MEDS: LIDODERM (LIDOCAINE) PATCH 5% TD SCH (09:40)
[2017-10-22] MEDS: FERROUS SULFATE 325 MG TAB PO SCH ×2 (11:49→21:11)
[2017-10-22] MEDS: POLYETHYLENE (MIRALAX) 17 GM PACK PO SCH (11:50)
[2017-10-22] MEDS: DOCUSATE SODIUM/SENNA 50/8.6MG TAB PO SCH (11:50)
[2017-10-22] MEDS ORDERED: NURSING VERBAL MED ORDER ONE (12:15)
[2017-10-22] MEDS: SENNA 8.6 MG TAB PO SCH (21:00)
[2017-10-22] MEDS: MIRTAZAPINE SOLTAB 15 MG PO SCH (21:14)
[2017-10-22] MEDS: RANITIDINE HCL 150 MG TAB PO SCH (21:16)
--- NOTE | 2017-10-22 22:24 | Progress Note ---
Medicine Progress Note Date & Time of Visit: Oct 22, 2017 at 22:24. Subjective Patient doing ok, states she feels fine but has had some soft stools and was concerned about taking too many laxatives. She otherwise denies complaints of CP , SOB, palpitations, dizziness. No overnight events noted. Tolerating PO. Has occasional cough Objective Last 8 Hrs Date Time Temp Pulse Resp B/P (MAP) Pulse Ox O2 Delivery O2 Flow Rate FiO2 10/22/17 20:08 84 18 97 Nasal Cannula 3.0 10/22/17 19:28 36.6 91 18 155/77 10/22/17 19:07 36.6 86 18 149/67 10/22/17 18:40 36.5 85 18 146/75 93 2.0 10/22/17 18:17 36.5 88 18 146/70 10/22/17 17:14 36.5 82 18 144/79 10/22/17 16:40 36.8 80 18 132/79 93 2.0 10/22/17 16:25 36.6 84 18 154/79 93 2.0 10/22/17 16:07 36.9 86 18 151/81 10/22/17 16:00 Nasal Cannula 2.0 10/22/17 15:18 67 16 97 Nasal Cannula 3.0 10/22/17 14:45 36.4 67 18 113/71 97 Physical Exam: GENERAL: Patient is in no acute distress. HEENT: No acute trauma, normocephalic, mucous membranes moist, no nasal congestion, no scleral icterus, conjunctivae clear NECK: No stridor, trachea is midline. LUNGS: Diminished bilaterally, no wheeze, no rhonchi, breath sounds equal. Bibasilar rales. HEART: Without murmurs gallops or rubs, regular rate and rhythm. ABDOMEN: Soft, nontender, bowel sounds positive EXTREMITIES: No cyanosis; trace LE edema NEUROLOGIC: Oriented x 3, no acute motor or sensory deficits, no focal weakness. SKIN: No rash, no jaundice, no diaphoresis. Laboratory Results: Last 24 Hours Test 10/22/17 05:28 10/22/17 07:34 White Blood Count 11.00 K/uL 10.93 K/uL Red Blood Count 2.35 M/uL 2.42 M/uL Hemoglobin 6.8 g/dL 7.1 g/dL Hematocrit 21.9 % 22.6 % Mean Corpuscular Volume 93.2 fL 93.4 fL Mean Corpuscular Hemoglobin 28.9 pg 29.3 pg Mean Corpuscular Hemoglobin Concent 31.1 g/dl 31.4 g/dl RDW Standard Deviation 58.2 fL 57.7 fL RDW Coefficient of Variation 17.0 % 16.8 % Platelet Count 364 K/uL 362 K/uL Mean Platelet Volume 8.9 fL 8.6 fL Sodium Level 138 mmol/L Potassium Level 4.1 mmol/L Chloride Level 101 mmol/L Carbon Dioxide Level 33 mmol/L Anion Gap 4.0 mmol/L Blood Urea Nitrogen 32 mg/dl Creatinine 1.28 mg/dl Est Creatinine Clear Calc Drug Dose 28.3 ml/min Estimated GFR () 44.5 Estimated GFR (Non- 38.4 BUN/Creatinine Ratio 25.3 Random Glucose 104 mg/dl Calcium Level 10.4 mg/dl Assessment & Plan ACUTE ON CHRONIC HYPOXIC RESPIRATORY FAILURE: -Severe Sepsis from suspected Aspiration Pneumonia has resolved -did require ICU and Bipap earlier in the admission for respiratory failure -CXR suggested pneumonia vs. pulmonary edema -cultures were negative -completed treatment with imipenem -ID consulted, appreciate recs -was on Mucomyst inhalation, vibration vest, Mucinex, nebs as needed -was given an additional dose of IV Lasix -has a history of COPD per records as well but does not appear to be in an exacerbation -CXR from 10/19 - showed considerable improvement from previous -wean O2 as tolerated to baseline of 2.5-3L; currently on 2L -Pulm reconsulted, resumed DVT prophylaxis; LE doppler negative, bedside thorax US did not show significant effusions for drainage -was off of antibiotics, but unasyn restarted thursday due to worsening hypoxia and symptoms and elevated WBC -continues to have a persistent cough that is non production -on oxygen at baseline requirements today -dispo per family discussion with previous attending is to plan for discharge to [facility] when stable ACUTE DIASTOLIC CHF: -due to acute hypoxic events - was given IV Lasix for congestion and remains on PO lasix now -currently euvolemic -monitor fluid status, will likely need maintenance diuretics as she previously required HX of MULTIPLE VTE: -last CT chest finding of small pulmonary embolism in the right lung -per discussion with family, cardio and previous hospitalist, the patient is not an anticoagulation candidate due to frequent bleeds/risk, but was given a trial of coumadin for treatment of PE from 2016 -LE doppler negative HX of TAVR: -Status post bioprosthetic aortic valve replacement MULTIFACTORIAL ANEMIA: -likely a combination of anemia of CKD with anemia of blood loss and iron deficiency based on prior labs/hx -s/p transfusion with 2 units pRBCs just this admission -presented with symptomatic anemia/secondary to GI bleed -EGD done on October 05 by GI - no active GI bleeding noted, large hiatal hernia noted -was previously told her chronic bleeding was from the small intestine but had refused previous attempts at workup -will transfuse with 2 additional units of PRBCs as Hb dropped to 7.1 MYRTLE on CKD STAGE III: resolved -Creatinine peaked at 1.94 -likely secondary to IV Lasix/diuresis as well as possible contrast induced MYRTLE -creatinine improved Current Inpatient Medications: Current Inpatient Medications Medications (Trade) Dose Ordered Sig/Rosi Route Start Time Stop Time Status Last Admin Dose Admin Al Hydrox/Mg Hydrox/Simethicone (Maalox Max Susp) 15 ml Q4H PRN PO 10/02/17 21:00 11/01/17 20:59 Magnesium Hydroxide (Milk Of Magnesia Susp) 30 ml Q12H PRN PO 10/02/17 21:00 11/01/17 20:59 Ondansetron HCl (Zofran Inj) 4 mg Q6H PRN IV 10/02/17 21:00 11/01/17 20:59 10/16/17 18:09 4 MG Nitroglycerin (Nitrostat Tab) 0.4 mg UD PRN SL 10/02/17 21:00 11/01/17 20:59 Ferrous Sulfate (Feosol Tab) 325 mg BID PO 10/03/17 09:00 11/02/17 08:59 10/22/17 21:11 325 MG Salmeterol Xinafoate/ Fluticasone (Advair Diskus 250/50 Inh) 1 puff BID INH 10/03/17 09:00 11/02/17 08:59 10/22/17 21:11 1 PUFF Gabapentin (Neurontin Cap) 100 mg DAILY PO 10/03/17 09:00 11/02/17 08:59 10/22/17 09:37 100 MG Lactobacillus Acidophilus (Floranex Tab) 1 tab TIDM PO 10/03/17 07:30 11/02/17 07:29 10/22/17 16:35 1 TAB Lorazepam (Ativan Tab) 0.5 mg HS PRN PO 10/02/17 21:15 11/01/17 21:14 10/21/17 21:31 0.5 MG Magnesium Oxide (Mag-Ox Tab) 400 mg DAILY PO 10/03/17 09:00 11/02/17 08:59 10/22/17 09:36 400 MG Metoprolol Succinate (Toprol Xl Tab) 12.5 mg BID PO 10/03/17 09:00 11/02/17 08:59 10/22/17 21:17 12.5 MG Mirtazapine (Remeron Solutab) 15 mg HS PO 10/03/17 21:00 11/02/17 20:59 10/22/17 21:14 15 MG Paroxetine HCl (pAXil TAB) 40 mg DAILY PO 10/03/17 09:00 11/02/17 08:59 10/22/17 09:37 40 MG Potassium Chloride (Klor-Con M10) 10 meq BID PO 10/03/17 09:00 11/02/17 08:59 10/22/17 21:12 10 MEQ Ranitidine HCl (zANTac TAB) 300 mg HS PO 10/03/17 21:00 11/02/17 20:59 10/22/17 21:16 300 MG Sucralfate (Carafate Susp) 1 gm QID PO 10/03/17 17:00 11/02/17 16:59 10/22/17 21:11 1 GM Lidocaine (Lidoderm Patch 5%) 1 patch QAM TD 10/05/17 09:00 11/04/17 08:59 10/22/17 09:40 1 PATCH Miscellaneous (Remove Lidoderm Patch) 1 ea DAILY@21 N/A 10/04/17 21:00 11/03/17 20:59 10/22/17 21:11 1 EA Pantoprazole Sodium (Protonix Tab) 40 mg BID PO 10/05/17 21:00 11/04/17 20:59 10/22/17 21:13 40 MG Ipratropium Morrison (Atrovent 0.02% 0.5MG/2.5ML Neb) 0.5 mg Q2R PRN INH 10/08/17 08:00 11/07/17 07:59 10/21/17 05:34 0.5 MG Levalbuterol (Xopenex 1.25MG/ 0.5ML Neb) 1.25 mg Q2R PRN INH 10/08/17 08:00 11/07/17 07:59 10/21/17 05:34 1.25 MG Ipratropium Morrison (Atrovent 0.02% 0.5MG/2.5ML Neb) 0.5 mg Q4R INH 10/08/17 20:00 11/07/17 19:59 10/22/17 20:07 0.5 MG Levalbuterol (Xopenex 1.25MG/ 0.5ML Neb) 1.25 mg Q4R INH 10/08/17 20:00 11/07/17 19:59 10/22/17 20:07 1.25 MG Acetylcysteine (Mucomyst 20% Inh Soln) 3 ml Q8R INH 10/08/17 18:00 11/07/17 17:59 10/22/17 15:18 3 ML Heparin Sodium (Porcine) (Heparin 10 Unit/ ml 5 ml Flush) 5 ml PRN PRN FLUSH 10/10/17 13:30 11/09/17 13:29 10/22/17 19:38 5 ML Furosemide (Lasix Tab) 40 mg QAM PO 10/11/17 09:00 11/10/17 08:59 10/22/17 09:38 40 MG Acetaminophen 100 ml @ 400 mls/hr Q8H PRN IV 10/10/17 18:15 11/09/17 18:14 10/10/17 18:20 400 MLS/HR Guaifenesin (Mucinex Contr Rel Tab) 600 mg Q12 PO 10/11/17 21:00 11/10/17 20:59 10/22/17 21:12 600 MG Polyethylene (Miralax Powder Packet) 17 gm DAILY PO 10/14/17 09:00 11/01/17 20:59 10/21/17 08:20 17 GM Senna/Docusate Sodium (Senokot S Tab) 1 tab QAM PO 10/14/17 09:00 11/13/17 08:59 10/21/17 08:17 1 TAB Senna (Senokot Tab) 8.6 mg QPM PO 10/13/17 21:00 11/12/17 20:59 10/21/17 21:39 8.6 MG Bisacodyl (Dulcolax Tab) 5 mg BID PRN PO 10/13/17 17:45 11/12/17 17:44 Oxycodone/ Acetaminophen (Percocet 5-325mg Tab) pain not relieved by tylenol Q4H PRN PO 10/17/17 06:30 10/31/17 06:29 10/22/17 21:22 2 TAB Aspirin (Ecotrin Tab) 81 mg QAM PO 10/18/17 16:00 11/17/17 15:59 Future Hold 10/21/17 08:21 81 MG Benzocaine (Orajel 20% Oral Gel) 1 appln QID PRN MT 10/18/17 18:00 11/17/17 17:59 Prednisone (PredniSONE TAB) 40 mg DAILY PO 10/20/17 09:00 11/06/17 08:59 10/22/17 09:40 40 MG Heparin Sodium (Porcine) (Heparin Sq 5000 Unit/0.5ml) 5,000 unit Q8 SQ 10/20/17 22:00 11/19/17 21:59 Future Hold 10/21/17 21:47 5,000 UNIT Fentanyl (Duragesic Patch) 12 mcg Q72H TD 10/21/17 13:30 11/04/17 13:29 10/21/17 13:46 12 MCG Miscellaneous (Fentanyl Patch Remove & Waste) 1 ea Q3D N/A 10/24/17 13:29 11/23/17 13:28 Miscellaneous Information (Check Fentanyl Patch Placement) 1 ea QS N/A 10/21/17 16:00 11/20/17 15:59 10/22/17 16:34 1 EA
[2017-10-22] MEDS ORDERED: COUGH DROP (SUGAR FREE) LOZ 24 LOZ/1 BOX LOZ ONE (23:09)
[2017-10-22] MEDS ORDERED: COUGH DROP (SUGAR FREE) LOZ 24 LOZ/1 BOX LOZ PRN (23:15)
[2017-10-23] VITALS (10 sets, daily range): BP systolic 124–144; BP diastolic 70; PULSE 67–87; TEMP 36.4–36.6; O2SAT 93–98
[2017-10-23] MEDS: LORAZEPAM 0.5 MG TAB PO PRN (04:15)
[2017-10-23] MEDS: OXYCODONE/ACETAMINOPHEN 5-325 TAB PO PRN ×4 (04:42→21:05)
[2017-10-23] MEDS: LEVALBUTEROL 1.25MG/0.5ML NEB INH SCH ×5 (07:06→23:21)
[2017-10-23] MEDS: IPRATROPIUM BROMIDE NEB SOLN 0.02% 2.5 ML VIAL INH SCH ×5 (07:06→23:20)
[2017-10-23] MEDS: ACETYLCYSTEINE 20% INHAL SOLN ***DISPENSED BY RESP. INH SCH ×3 (08:00→21:06)
[2017-10-23] MEDS: CHECK FENTANYL PATCH PLACEMENT SCH ×3 (08:00→16:00)
[2017-10-23 08:25] LABS: HEMATOCRIT 33.8 % (37-47); HEMOGLOBIN 10.9 g/dL (12.0-16.0); MEAN CELL VOLUME 91.1 fL (80-100); MEAN CORPUSCULAR HEMOGLOBIN 29.4 pg (25-34); MEAN CORPUSCULAR HGB CONC 32.2 g/dl (32-36); MEAN PLATELET VOLUME 9.3 fL (7.4-10.4); PLATELET COUNT 368 K/uL (130-400); RED CELL DISTRIBUTION WIDTH CV 16.8 % (11.5-14.5); RED CELL DISTRIBUTION WIDTH SD 56.2 fL (36.4-46.3); WHITE BLOOD COUNT 11.16 K/uL (4.8-10.8)
[2017-10-23 08:54] LABS: CALCIUM 10.6 mg/dl (8.5-10.1); CREATININE 1.29 mg/dl (0.60-1.20); POTASSIUM 3.8 mmol/L (3.5-5.1)
[2017-10-23] MEDS: POLYETHYLENE (MIRALAX) 17 GM PACK PO SCH (09:00)
[2017-10-23] MEDS: DOCUSATE SODIUM/SENNA 50/8.6MG TAB PO SCH (09:00)
[2017-10-23] MEDS: FERROUS SULFATE 325 MG TAB PO SCH ×2 (09:17→20:46)
[2017-10-23] MEDS: FUROSEMIDE 40 MG TAB PO SCH (09:17)
[2017-10-23] MEDS: GUAIFENESIN 600 MG TABCR PO SCH ×2 (09:17→20:46)
[2017-10-23] MEDS: PANTOprazole SOD 40 MG TAB PO SCH ×2 (09:17→20:46)
[2017-10-23] MEDS: PAROXETINE 20 MG TAB PO SCH (09:18)
[2017-10-23] MEDS: LACTOBACILLUS ACIDOPHILUS (FLORANEX) TAB PO SCH ×3 (09:18→17:06)
[2017-10-23] MEDS: FLUTICASONE/SALMETEROL 250/50 (ADVAIR) 14 PUFF/1 INHALER INH SCH ×2 (09:19→20:47)
[2017-10-23] MEDS: GABAPENTIN 100 MG CAP PO SCH (09:19)
[2017-10-23] MEDS: MAGNESIUM OXIDE 400 MG TAB PO SCH (09:20)
[2017-10-23] MEDS: LIDODERM (LIDOCAINE) PATCH 5% TD SCH (09:22)
[2017-10-23] MEDS: SUCRALFATE 1 GM/10 ML UDC PO SCH ×4 (09:22→20:46)
[2017-10-23] MEDS: METOPROLOL SUCC 25MG EXT REL TAB PO SCH ×2 (09:22→20:48)
[2017-10-23] MEDS: POTASSIUM CHLORIDE 10 MEQ TABCR PO SCH ×2 (09:23→20:46)
[2017-10-23] MEDS ORDERED: NURSING VERBAL MED ORDER ONE (12:00)
[2017-10-23] MEDS ORDERED: ALTEPLASE, RECOMBINANT 1 MG/ML 2 ML VIAL IV ONE (12:15)
[2017-10-23] MEDS: MIRTAZAPINE SOLTAB 15 MG PO SCH (20:46)
[2017-10-23] MEDS: SENNA 8.6 MG TAB PO SCH (20:47)
[2017-10-23] MEDS: RANITIDINE HCL 150 MG TAB PO SCH (20:48)
--- NOTE | 2017-10-23 21:31 | Progress Note ---
Medicine Progress Note Date & Time of Visit: Oct 23, 2017 at 21:31. Subjective Patient reports feeling ok, she is not happy about going to [facility] but her son was at the bedside and the reasons were fully discussed with the patient and was encouraged she should go for her own benefit. No overnight events noted. Tolerating PO. Breathing is stable. Objective Last 8 Hrs Date Time Temp Pulse Resp B/P (MAP) Pulse Ox O2 Delivery O2 Flow Rate FiO2 10/23/17 21:06 78 18 98 Nasal Cannula 2.0 10/23/17 16:10 Nasal Cannula 2.0 10/23/17 15:32 36.5 78 18 135/70 (91) 98 Nasal Cannula 2.0 10/23/17 15:19 82 18 95 Nasal Cannula 3.0 Physical Exam: GENERAL: Patient is in no acute distress. HEENT: No acute trauma, normocephalic, mucous membranes moist, no nasal congestion, no scleral icterus, conjunctivae clear NECK: No stridor, trachea is midline. LUNGS: Diminished bilaterally, no wheeze, no rhonchi, breath sounds equal. Bibasilar rales. HEART: Without murmurs gallops or rubs, regular rate and rhythm. ABDOMEN: Soft, nontender, bowel sounds positive, lower abdominal wall ecchymosis and small hematoma EXTREMITIES: No cyanosis; trace LE edema NEUROLOGIC: Oriented x 3, no acute motor or sensory deficits, no focal weakness. SKIN: No rash, no jaundice, no diaphoresis. Laboratory Results: Last 24 Hours Test 10/23/17 07:58 White Blood Count 11.16 K/uL Red Blood Count 3.71 M/uL Hemoglobin 10.9 g/dL Hematocrit 33.8 % Mean Corpuscular Volume 91.1 fL Mean Corpuscular Hemoglobin 29.4 pg Mean Corpuscular Hemoglobin Concent 32.2 g/dl RDW Standard Deviation 56.2 fL RDW Coefficient of Variation 16.8 % Platelet Count 368 K/uL Mean Platelet Volume 9.3 fL Sodium Level 137 mmol/L Potassium Level 3.8 mmol/L Chloride Level 100 mmol/L Carbon Dioxide Level 32 mmol/L Anion Gap 5.0 mmol/L Blood Urea Nitrogen 32 mg/dl Creatinine 1.29 mg/dl Est Creatinine Clear Calc Drug Dose 27.7 ml/min Estimated GFR () 44.0 Estimated GFR (Non- 38.0 BUN/Creatinine Ratio 24.7 Random Glucose 90 mg/dl Calcium Level 10.6 mg/dl Magnesium Level 2.1 mg/dl Assessment & Plan ACUTE ON CHRONIC HYPOXIC RESPIRATORY FAILURE: -Severe Sepsis from suspected Aspiration Pneumonia has resolved -required ICU stay and Bipap earlier in the admission for respiratory failure -CXR suggested pneumonia vs. pulmonary edema -cultures were negative -completed treatment with imipenem -ID consulted, appreciate recs -was on Mucomyst inhalation, vibration vest, Mucinex, nebs as needed -was given an additional dose of IV Lasix -has a history of COPD per records as well but does not appear to be in an exacerbation -CXR from 10/19 - showed considerable improvement from previous -Pulm reconsulted, resumed DVT prophylaxis; LE doppler negative, bedside thorax US did not show significant effusions for drainage -was off of antibiotics, but unasyn restarted thursday due to worsening hypoxia and symptoms and elevated WBC; now off -continues to have a persistent cough that is non productive -on oxygen at baseline requirements 2-3L -dispo per family discussion with previous attending is to plan for discharge to [facility] when stable ACUTE DIASTOLIC CHF: -due to acute hypoxic events - was given IV Lasix for congestion and remains on PO lasix now -currently euvolemic -monitor fluid status, will likely need maintenance diuretics as she previously required HX of MULTIPLE VTE: -last CT chest finding of small pulmonary embolism in the right lung -per discussion with family, cardio and previous hospitalist, the patient is not an anticoagulation candidate due to frequent bleeds/risk, but was given a trial of coumadin for treatment of PE from 2016 -LE doppler negative HX of TAVR: -Status post bioprosthetic aortic valve replacement MULTIFACTORIAL ANEMIA: -likely a combination of anemia of CKD with anemia of blood loss and iron deficiency based on prior labs/hx -s/p transfusion with 2 units pRBCs just this admission -presented with symptomatic anemia/secondary to GI bleed -EGD done on October 05 by GI - no active GI bleeding noted, large hiatal hernia noted -was previously told her chronic bleeding was from the small intestine but had refused previous attempts at workup -was transfused with 2 additional units of PRBCs as Hb dropped to 7.1-->10.7 MYRTLE on CKD STAGE III: resolved -Creatinine peaked at 1.94 -likely secondary to IV Lasix/diuresis as well as possible contrast induced MYRTLE -creatinine has since improved 1-1.2 Current Inpatient Medications: Current Inpatient Medications Medications (Trade) Dose Ordered Sig/Rosi Route Start Time Stop Time Status Last Admin Dose Admin Al Hydrox/Mg Hydrox/Simethicone (Maalox Max Susp) 15 ml Q4H PRN PO 10/02/17 21:00 11/01/17 20:59 Magnesium Hydroxide (Milk Of Magnesia Susp) 30 ml Q12H PRN PO 10/02/17 21:00 11/01/17 20:59 Ondansetron HCl (Zofran Inj) 4 mg Q6H PRN IV 10/02/17 21:00 11/01/17 20:59 10/16/17 18:09 4 MG Nitroglycerin (Nitrostat Tab) 0.4 mg UD PRN SL 10/02/17 21:00 11/01/17 20:59 Ferrous Sulfate (Feosol Tab) 325 mg BID PO 10/03/17 09:00 11/02/17 08:59 10/23/17 20:46 325 MG Salmeterol Xinafoate/ Fluticasone (Advair Diskus 250/50 Inh) 1 puff BID INH 10/03/17 09:00 11/02/17 08:59 10/23/17 20:47 1 PUFF Gabapentin (Neurontin Cap) 100 mg DAILY PO 10/03/17 09:00 11/02/17 08:59 10/23/17 09:19 100 MG Lactobacillus Acidophilus (Floranex Tab) 1 tab TIDM PO 10/03/17 07:30 11/02/17 07:29 10/23/17 17:06 1 TAB Lorazepam (Ativan Tab) 0.5 mg HS PRN PO 10/02/17 21:15 11/01/17 21:14 10/23/17 04:15 0.5 MG Magnesium Oxide (Mag-Ox Tab) 400 mg DAILY PO 10/03/17 09:00 11/02/17 08:59 10/23/17 09:20 400 MG Metoprolol Succinate (Toprol Xl Tab) 12.5 mg BID PO 10/03/17 09:00 11/02/17 08:59 10/23/17 20:48 12.5 MG Mirtazapine (Remeron Solutab) 15 mg HS PO 10/03/17 21:00 11/02/17 20:59 10/23/17 20:46 15 MG Paroxetine HCl (pAXil TAB) 40 mg DAILY PO 10/03/17 09:00 11/02/17 08:59 10/23/17 09:18 40 MG Potassium Chloride (Klor-Con M10) 10 meq BID PO 10/03/17 09:00 11/02/17 08:59 10/23/17 20:46 10 MEQ Ranitidine HCl (zANTac TAB) 300 mg HS PO 10/03/17 21:00 11/02/17 20:59 10/23/17 20:48 300 MG Sucralfate (Carafate Susp) 1 gm QID PO 10/03/17 17:00 11/02/17 16:59 10/23/17 20:46 1 GM Lidocaine (Lidoderm Patch 5%) 1 patch QAM TD 10/05/17 09:00 11/04/17 08:59 10/23/17 09:22 1 PATCH Miscellaneous (Remove Lidoderm Patch) 1 ea DAILY@21 N/A 10/04/17 21:00 11/03/17 20:59 10/23/17 20:47 1 EA Pantoprazole Sodium (Protonix Tab) 40 mg BID PO 10/05/17 21:00 11/04/17 20:59 10/23/17 20:46 40 MG Ipratropium Alcova (Atrovent 0.02% 0.5MG/2.5ML Neb) 0.5 mg Q2R PRN INH 10/08/17 08:00 11/07/17 07:59 10/21/17 05:34 0.5 MG Levalbuterol (Xopenex 1.25MG/ 0.5ML Neb) 1.25 mg Q2R PRN INH 10/08/17 08:00 11/07/17 07:59 10/21/17 05:34 1.25 MG Ipratropium Alcova (Atrovent 0.02% 0.5MG/2.5ML Neb) 0.5 mg Q4R INH 10/08/17 20:00 11/07/17 19:59 10/23/17 21:06 0.5 MG Levalbuterol (Xopenex 1.25MG/ 0.5ML Neb) 1.25 mg Q4R INH 10/08/17 20:00 11/07/17 19:59 10/23/17 21:06 1.25 MG Acetylcysteine (Mucomyst 20% Inh Soln) 3 ml Q8R INH 10/08/17 18:00 11/07/17 17:59 10/23/17 21:06 3 ML Heparin Sodium (Porcine) (Heparin 10 Unit/ ml 5 ml Flush) 5 ml PRN PRN FLUSH 10/10/17 13:30 11/09/17 13:29 10/22/17 19:38 5 ML Furosemide (Lasix Tab) 40 mg QAM PO 10/11/17 09:00 11/10/17 08:59 10/23/17 09:17 40 MG Acetaminophen 100 ml @ 400 mls/hr Q8H PRN IV 10/10/17 18:15 11/09/17 18:14 10/10/17 18:20 400 MLS/HR Guaifenesin (Mucinex Contr Rel Tab) 600 mg Q12 PO 10/11/17 21:00 11/10/17 20:59 10/23/17 20:46 600 MG Polyethylene (Miralax Powder Packet) 17 gm DAILY PO 10/14/17 09:00 11/01/17 20:59 10/21/17 08:20 17 GM Senna/Docusate Sodium (Senokot S Tab) 1 tab QAM PO 10/14/17 09:00 11/13/17 08:59 10/21/17 08:17 1 TAB Senna (Senokot Tab) 8.6 mg QPM PO 10/13/17 21:00 11/12/17 20:59 10/23/17 20:47 8.6 MG Bisacodyl (Dulcolax Tab) 5 mg BID PRN PO 10/13/17 17:45 11/12/17 17:44 Oxycodone/ Acetaminophen (Percocet 5-325mg Tab) pain not relieved by tylenol Q4H PRN PO 10/17/17 06:30 10/31/17 06:29 10/23/17 21:05 1 TAB Aspirin (Ecotrin Tab) 81 mg QAM PO 10/18/17 16:00 11/17/17 15:59 Future Hold 10/21/17 08:21 81 MG Benzocaine (Orajel 20% Oral Gel) 1 appln QID PRN MT 10/18/17 18:00 11/17/17 17:59 Prednisone (PredniSONE TAB) 40 mg DAILY PO 10/20/17 09:00 11/06/17 08:59 10/23/17 09:17 40 MG Heparin Sodium (Porcine) (Heparin Sq 5000 Unit/0.5ml) 5,000 unit Q8 SQ 10/20/17 22:00 11/19/17 21:59 Future Hold 10/21/17 21:47 5,000 UNIT Fentanyl (Duragesic Patch) 12 mcg Q72H TD 10/21/17 13:30 11/04/17 13:29 10/21/17 13:46 12 MCG Miscellaneous (Fentanyl Patch Remove & Waste) 1 ea Q3D N/A 10/24/17 13:29 11/23/17 13:28 Miscellaneous Information (Check Fentanyl Patch Placement) 1 ea QS N/A 10/21/17 16:00 11/20/17 15:59 10/23/17 16:00 1 EA Menthol (Nice Jonnie) 1 jonnie PRN PRN JONNIE 10/22/17 23:15 11/21/17 23:14
[2017-10-24] VITALS (11 sets, daily range): BP systolic 116–171; BP diastolic 61–81; PULSE 69–90; TEMP 36.4–36.6; O2SAT 85–98
[2017-10-24] MEDS: CHECK FENTANYL PATCH PLACEMENT SCH ×4 (00:11→23:34)
[2017-10-24] MEDS: LEVALBUTEROL 1.25MG/0.5ML NEB INH SCH ×6 (03:10→23:28)
[2017-10-24] MEDS: IPRATROPIUM BROMIDE NEB SOLN 0.02% 2.5 ML VIAL INH SCH ×6 (03:10→23:27)
[2017-10-24] MEDS: FLUTICASONE/SALMETEROL 250/50 (ADVAIR) 14 PUFF/1 INHALER INH SCH ×2 (07:43→20:05)
[2017-10-24] MEDS: PANTOprazole SOD 40 MG TAB PO SCH ×2 (07:44→20:08)
[2017-10-24] MEDS: GUAIFENESIN 600 MG TABCR PO SCH ×2 (07:44→20:07)
[2017-10-24] MEDS: METOPROLOL SUCC 25MG EXT REL TAB PO SCH ×2 (07:44→20:08)
[2017-10-24] MEDS: LACTOBACILLUS ACIDOPHILUS (FLORANEX) TAB PO SCH ×3 (07:45→17:09)
[2017-10-24] MEDS: GABAPENTIN 100 MG CAP PO SCH (07:45)
[2017-10-24] MEDS: POTASSIUM CHLORIDE 10 MEQ TABCR PO SCH ×2 (07:45→20:09)
[2017-10-24] MEDS: PAROXETINE 20 MG TAB PO SCH (07:45)
[2017-10-24] MEDS: FUROSEMIDE 40 MG TAB PO SCH (07:46)
[2017-10-24] MEDS: FERROUS SULFATE 325 MG TAB PO SCH ×2 (07:46→20:07)
[2017-10-24] MEDS: MAGNESIUM OXIDE 400 MG TAB PO SCH (07:46)
[2017-10-24] MEDS: SUCRALFATE 1 GM/10 ML UDC PO SCH ×4 (07:47→20:05)
[2017-10-24] MEDS: LIDODERM (LIDOCAINE) PATCH 5% TD SCH (07:49)
[2017-10-24] MEDS: DOCUSATE SODIUM/SENNA 50/8.6MG TAB PO SCH (07:50)
[2017-10-24] MEDS: POLYETHYLENE (MIRALAX) 17 GM PACK PO SCH (07:50)
[2017-10-24] MEDS: ACETYLCYSTEINE 20% INHAL SOLN ***DISPENSED BY RESP. INH SCH ×3 (07:54→23:28)
[2017-10-24] MEDS ORDERED: NURSING VERBAL MED ORDER ONE (08:15)
[2017-10-24] MEDS ORDERED: LORAZEPAM 0.5 MG TAB PO ONE (08:15)
[2017-10-24] MEDS: OXYCODONE/ACETAMINOPHEN 5-325 TAB PO PRN ×2 (12:49→20:37)
[2017-10-24] MEDS: FENTANYL 12 MCG/HR TDSY TD SCH (13:10)
[2017-10-24] MEDS: FENTANYL PATCH REMOVE & WASTE SCH (13:10)
[2017-10-24] MEDS: SENNA 8.6 MG TAB PO SCH (20:06)
[2017-10-24] MEDS: RANITIDINE HCL 150 MG TAB PO SCH (20:08)
[2017-10-24] MEDS: MIRTAZAPINE SOLTAB 15 MG PO SCH (20:09)
[2017-10-24] MEDS: LORAZEPAM 0.5 MG TAB PO PRN (20:48)
--- NOTE | 2017-10-24 21:17 | Progress Note ---
Medicine Progress Note Date & Time of Visit: Oct 24, 2017 at 21:17. Subjective Patient reports feeling well, denies any new complaints. Has been tolerating PO but appetite is decreased. States her BMs have been firm and denies any diarrhea. No overnight events noted. Had some anxiety this AM thinking about having to go to [facility]. Objective Last 8 Hrs Date Time Temp Pulse Resp B/P (MAP) Pulse Ox O2 Delivery O2 Flow Rate FiO2 10/24/17 20:54 90 116/73 (87) 10/24/17 19:40 69 18 95 Nasal Cannula 2.0 10/24/17 16:05 36.6 83 18 118/61 (80) 98 Nasal Cannula 4.0 10/24/17 15:50 Nasal Cannula 2.0 10/24/17 15:34 84 18 96 Nasal Cannula 2.0 Physical Exam: GENERAL: Patient is in no acute distress. HEENT: No acute trauma, normocephalic, mucous membranes moist, no nasal congestion, no scleral icterus, conjunctivae clear NECK: No stridor, trachea is midline. LUNGS: Diminished bilaterally, no wheeze, no rhonchi, breath sounds equal. Bibasilar rales. HEART: Without murmurs gallops or rubs, regular rate and rhythm. ABDOMEN: Soft, nontender, bowel sounds positive, lower abdominal wall ecchymosis and small hematoma EXTREMITIES: No cyanosis; trace LE edema NEUROLOGIC: Oriented x 3, no acute motor or sensory deficits, no focal weakness. SKIN: No rash, no jaundice, no diaphoresis. Assessment & Plan ACUTE ON CHRONIC HYPOXIC RESPIRATORY FAILURE: -Severe Sepsis from suspected Aspiration Pneumonia has resolved -required ICU stay and Bipap earlier in the admission for respiratory failure -CXR suggested pneumonia vs. pulmonary edema -cultures were negative -completed treatment with imipenem -ID consulted, appreciate recs -was on Mucomyst inhalation, vibration vest, Mucinex, nebs as needed -was given an additional dose of IV Lasix -has a history of COPD per records as well but does not appear to be in an exacerbation -CXR from 10/19 - showed considerable improvement from previous -Pulm reconsulted, resumed DVT prophylaxis; LE doppler negative, bedside thorax US did not show significant effusions for drainage -was off of antibiotics, but unasyn restarted thursday due to worsening hypoxia and symptoms and elevated WBC; now off -continues to have a persistent cough that is non productive -on oxygen at baseline requirements 2-3L -dispo per family discussion with previous attending is to plan for discharge to [facility] when stable ACUTE DIASTOLIC CHF: -due to acute hypoxic events - was given IV Lasix for congestion and remains on PO lasix now -currently euvolemic -monitor fluid status, will likely need maintenance diuretics as she previously required HX of MULTIPLE VTE: -last CT chest finding of small pulmonary embolism in the right lung -per discussion with family, cardio and previous hospitalist, the patient is not an anticoagulation candidate due to frequent bleeds/risk, but was given a trial of coumadin for treatment of PE from 2016 -LE doppler negative HX of TAVR: -Status post bioprosthetic aortic valve replacement MULTIFACTORIAL ANEMIA: -likely a combination of anemia of CKD with anemia of blood loss and iron deficiency based on prior labs/hx -s/p transfusion with 2 units pRBCs just this admission -presented with symptomatic anemia/secondary to GI bleed -EGD done on October 05 by GI - no active GI bleeding noted, large hiatal hernia noted -was previously told her chronic bleeding was from the small intestine but had refused previous attempts at workup -was transfused with 2 additional units of PRBCs as Hb dropped to 7.1-->10.9 MYRTLE on CKD STAGE III: resolved -Creatinine peaked at 1.94 -likely secondary to IV Lasix/diuresis as well as possible contrast induced MYRTLE -creatinine has since improved and remains in 1-1.2 range Current Inpatient Medications: Current Inpatient Medications Medications (Trade) Dose Ordered Sig/Rosi Route Start Time Stop Time Status Last Admin Dose Admin Al Hydrox/Mg Hydrox/Simethicone (Maalox Max Susp) 15 ml Q4H PRN PO 10/02/17 21:00 11/01/17 20:59 Magnesium Hydroxide (Milk Of Magnesia Susp) 30 ml Q12H PRN PO 10/02/17 21:00 11/01/17 20:59 Ondansetron HCl (Zofran Inj) 4 mg Q6H PRN IV 10/02/17 21:00 11/01/17 20:59 10/16/17 18:09 4 MG Nitroglycerin (Nitrostat Tab) 0.4 mg UD PRN SL 10/02/17 21:00 4/1/18 20:59 Ferrous Sulfate (Feosol Tab) 325 mg BID PO 10/03/17 09:00 11/02/17 08:59 10/24/17 20:07 325 MG Salmeterol Xinafoate/ Fluticasone (Advair Diskus 250/50 Inh) 1 puff BID INH 10/03/17 09:00 11/02/17 08:59 10/24/17 20:05 1 PUFF Gabapentin (Neurontin Cap) 100 mg DAILY PO 10/03/17 09:00 11/02/17 08:59 10/24/17 07:45 100 MG Lactobacillus Acidophilus (Floranex Tab) 1 tab TIDM PO 10/03/17 07:30 11/02/17 07:29 10/24/17 17:09 1 TAB Lorazepam (Ativan Tab) 0.5 mg HS PRN PO 10/02/17 21:15 11/01/17 21:14 10/24/17 20:48 0.5 MG Magnesium Oxide (Mag-Ox Tab) 400 mg DAILY PO 10/03/17 09:00 11/02/17 08:59 10/24/17 07:46 400 MG Metoprolol Succinate (Toprol Xl Tab) 12.5 mg BID PO 10/03/17 09:00 11/02/17 08:59 10/24/17 20:08 12.5 MG Mirtazapine (Remeron Solutab) 15 mg HS PO 10/03/17 21:00 11/02/17 20:59 10/24/17 20:09 15 MG Paroxetine HCl (pAXil TAB) 40 mg DAILY PO 10/03/17 09:00 11/02/17 08:59 10/24/17 07:45 40 MG Potassium Chloride (Klor-Con M10) 10 meq BID PO 10/03/17 09:00 11/02/17 08:59 10/24/17 20:09 10 MEQ Ranitidine HCl (zANTac TAB) 300 mg HS PO 10/03/17 21:00 11/02/17 20:59 10/24/17 20:08 300 MG Sucralfate (Carafate Susp) 1 gm QID PO 10/03/17 17:00 11/02/17 16:59 10/24/17 20:05 1 GM Lidocaine (Lidoderm Patch 5%) 1 patch QAM TD 10/05/17 09:00 11/04/17 08:59 10/24/17 07:49 1 PATCH Miscellaneous (Remove Lidoderm Patch) 1 ea DAILY@21 N/A 10/04/17 21:00 11/03/17 20:59 10/24/17 20:05 1 EA Pantoprazole Sodium (Protonix Tab) 40 mg BID PO 10/05/17 21:00 11/04/17 20:59 10/24/17 20:08 40 MG Ipratropium [place] (Atrovent 0.02% 0.5MG/2.5ML Neb) 0.5 mg Q2R PRN INH 10/08/17 08:00 11/07/17 07:59 10/21/17 05:34 0.5 MG Levalbuterol (Xopenex 1.25MG/ 0.5ML Neb) 1.25 mg Q2R PRN INH 10/08/17 08:00 11/07/17 07:59 10/21/17 05:34 1.25 MG Ipratropium [place] (Atrovent 0.02% 0.5MG/2.5ML Neb) 0.5 mg Q4R INH 10/08/17 20:00 11/07/17 19:59 10/24/17 19:36 0.5 MG Levalbuterol (Xopenex 1.25MG/ 0.5ML Neb) 1.25 mg Q4R INH 10/08/17 20:00 11/07/17 19:59 10/24/17 19:36 1.25 MG Acetylcysteine (Mucomyst 20% Inh Soln) 3 ml Q8R INH 10/08/17 18:00 11/07/17 17:59 10/24/17 15:30 3 ML Heparin Sodium (Porcine) (Heparin 10 Unit/ ml 5 ml Flush) 5 ml PRN PRN FLUSH 10/10/17 13:30 11/09/17 13:29 10/24/17 09:35 5 ML Furosemide (Lasix Tab) 40 mg QAM PO 10/11/17 09:00 11/10/17 08:59 10/24/17 07:46 40 MG Acetaminophen 100 ml @ 400 mls/hr Q8H PRN IV 10/10/17 18:15 11/09/17 18:14 10/10/17 18:20 400 MLS/HR Guaifenesin (Mucinex Contr Rel Tab) 600 mg Q12 PO 10/11/17 21:00 11/10/17 20:59 10/24/17 20:07 600 MG Polyethylene (Miralax Powder Packet) 17 gm DAILY PO 10/14/17 09:00 11/01/17 20:59 10/21/17 08:20 17 GM Senna/Docusate Sodium (Senokot S Tab) 1 tab QAM PO 10/14/17 09:00 11/13/17 08:59 10/24/17 07:50 1 TAB Senna (Senokot Tab) 8.6 mg QPM PO 10/13/17 21:00 11/12/17 20:59 10/24/17 20:06 8.6 MG Bisacodyl (Dulcolax Tab) 5 mg BID PRN PO 10/13/17 17:45 11/12/17 17:44 Oxycodone/ Acetaminophen (Percocet 5-325mg Tab) pain not relieved by tylenol Q4H PRN PO 10/17/17 06:30 10/31/17 06:29 10/24/17 20:37 1 TAB Aspirin (Ecotrin Tab) 81 mg QAM PO 10/18/17 16:00 11/17/17 15:59 Future Hold 10/21/17 08:21 81 MG Benzocaine (Orajel 20% Oral Gel) 1 appln QID PRN MT 10/18/17 18:00 11/17/17 17:59 Heparin Sodium (Porcine) (Heparin Sq 5000 Unit/0.5ml) 5,000 unit Q8 SQ 10/20/17 22:00 11/19/17 21:59 Future Hold 10/21/17 21:47 5,000 UNIT Fentanyl (Duragesic Patch) 12 mcg Q72H TD 10/21/17 13:30 11/04/17 13:29 10/24/17 13:10 12 MCG Miscellaneous (Fentanyl Patch Remove & Waste) 1 ea Q3D N/A 10/24/17 13:29 11/23/17 13:28 10/24/17 13:10 1 EA Miscellaneous Information (Check Fentanyl Patch Placement) 1 ea QS N/A 10/21/17 16:00 11/20/17 15:59 10/24/17 15:40 1 EA Menthol (Nice Jonnie) 1 jonnie PRN PRN JONNIE 10/22/17 23:15 11/21/17 23:14 Prednisone (PredniSONE TAB) 20 mg DAILY PO 10/25/17 09:00 11/24/17 08:59
[2017-10-25] VITALS (11 sets, daily range): BP systolic 119–176; BP diastolic 69–101; PULSE 59–91; TEMP 36.3–36.6; O2SAT 90–98
[2017-10-25] MEDS: LEVALBUTEROL 1.25MG/0.5ML NEB INH SCH ×6 (04:00→23:31)
[2017-10-25] MEDS: IPRATROPIUM BROMIDE NEB SOLN 0.02% 2.5 ML VIAL INH SCH ×6 (04:00→23:31)
[2017-10-25 05:55] LABS: HEMOGLOBIN 10.7 g/dL (12.0-16.0); MEAN CELL VOLUME 93.4 fL (80-100); MEAN CORPUSCULAR HEMOGLOBIN 29.4 pg (25-34); MEAN CORPUSCULAR HGB CONC 31.5 g/dl (32-36); MEAN PLATELET VOLUME 9.5 fL (7.4-10.4); PLATELET COUNT 354 K/uL (130-400); RED CELL DISTRIBUTION WIDTH CV 16.1 % (11.5-14.5); RED CELL DISTRIBUTION WIDTH SD 55.5 fL (36.4-46.3); WHITE BLOOD COUNT 9.76 K/uL (4.8-10.8)
[2017-10-25 06:26] LABS: CALCIUM 10.1 mg/dl (8.5-10.1); CREATININE 1.08 mg/dl (0.60-1.20)
[2017-10-25] MEDS: GUAIFENESIN 600 MG TABCR PO SCH ×2 (07:21→20:29)
[2017-10-25] MEDS: FERROUS SULFATE 325 MG TAB PO SCH ×2 (07:21→20:29)
[2017-10-25] MEDS: LACTOBACILLUS ACIDOPHILUS (FLORANEX) TAB PO SCH ×3 (07:21→16:56)
[2017-10-25] MEDS: FLUTICASONE/SALMETEROL 250/50 (ADVAIR) 14 PUFF/1 INHALER INH SCH ×2 (07:21→20:28)
[2017-10-25] MEDS: PANTOprazole SOD 40 MG TAB PO SCH ×2 (07:22→20:29)
[2017-10-25] MEDS: METOPROLOL SUCC 25MG EXT REL TAB PO SCH ×2 (07:22→20:29)
[2017-10-25] MEDS: MAGNESIUM OXIDE 400 MG TAB PO SCH (07:23)
[2017-10-25] MEDS: GABAPENTIN 100 MG CAP PO SCH (07:23)
[2017-10-25] MEDS: FUROSEMIDE 40 MG TAB PO SCH (07:23)
[2017-10-25] MEDS: PAROXETINE 20 MG TAB PO SCH (07:24)
[2017-10-25] MEDS: DOCUSATE SODIUM/SENNA 50/8.6MG TAB PO SCH (07:24)
[2017-10-25] MEDS: LIDODERM (LIDOCAINE) PATCH 5% TD SCH (07:25)
[2017-10-25] MEDS: SUCRALFATE 1 GM/10 ML UDC PO SCH ×4 (07:26→20:28)
[2017-10-25] MEDS: POTASSIUM CHLORIDE 10 MEQ TABCR PO SCH ×2 (07:26→20:30)
[2017-10-25] MEDS: POLYETHYLENE (MIRALAX) 17 GM PACK PO SCH ×2 (07:27→11:28)
[2017-10-25] MEDS: CHECK FENTANYL PATCH PLACEMENT SCH ×3 (07:28→23:25)
[2017-10-25] MEDS: ACETYLCYSTEINE 20% INHAL SOLN ***DISPENSED BY RESP. INH SCH (07:41)
[2017-10-25] MEDS: OXYCODONE/ACETAMINOPHEN 5-325 TAB PO PRN ×3 (08:30→21:02)
--- NOTE | 2017-10-25 18:22 | Progress Note ---
Medicine Progress Note Date & Time of Visit: Oct 25, 2017 at 18:22. Subjective Patient is doing well, she is joking and she is accepting of going to [facility] tomorrow. She is anxious and motivated to get there. No overnight events noted. Tolerating PO without difficulty but does have a slight decreased appetite which she says is related to "being picky". No complaints other than occasional pain in shoulder and knee. Her son Mekhi was at this bedside and was updated. Objective Last 8 Hrs Date Time Temp Pulse Resp B/P (MAP) Pulse Ox O2 Delivery O2 Flow Rate FiO2 10/25/17 16:30 36.3 91 19 119/72 (88) 95 Nasal Cannula 3.0 10/25/17 15:55 Nasal Cannula 2.0 10/25/17 15:18 67 18 90 Nasal Cannula 2.0 10/25/17 11:17 63 18 93 Nasal Cannula 2.0 Physical Exam: GENERAL: Patient is in no acute distress. HEENT: No acute trauma, normocephalic, mucous membranes moist, no nasal congestion, no scleral icterus, conjunctivae clear NECK: No stridor, trachea is midline. LUNGS: Diminished bilaterally, no wheeze, no rhonchi, breath sounds equal. HEART: Without murmurs gallops or rubs, regular rate and rhythm. ABDOMEN: Soft, nontender, bowel sounds positive, lower abdominal wall ecchymosis and small hematoma EXTREMITIES: No cyanosis; trace LE edema NEUROLOGIC: Oriented x 3, no acute motor or sensory deficits, no focal weakness. SKIN: No rash, no jaundice, no diaphoresis. Laboratory Results: Last 24 Hours Test 10/25/17 05:10 White Blood Count 9.76 K/uL Red Blood Count 3.64 M/uL Hemoglobin 10.7 g/dL Hematocrit 34.0 % Mean Corpuscular Volume 93.4 fL Mean Corpuscular Hemoglobin 29.4 pg Mean Corpuscular Hemoglobin Concent 31.5 g/dl RDW Standard Deviation 55.5 fL RDW Coefficient of Variation 16.1 % Platelet Count 354 K/uL Mean Platelet Volume 9.5 fL Sodium Level 140 mmol/L Potassium Level 4.0 mmol/L Chloride Level 101 mmol/L Carbon Dioxide Level 33 mmol/L Anion Gap 6.0 mmol/L Blood Urea Nitrogen 27 mg/dl Creatinine 1.08 mg/dl Est Creatinine Clear Calc Drug Dose 33.1 ml/min Estimated GFR () 54.6 Estimated GFR (Non- 47.1 BUN/Creatinine Ratio 25.0 Random Glucose 87 mg/dl Calcium Level 10.1 mg/dl Assessment & Plan ACUTE ON CHRONIC HYPOXIC RESPIRATORY FAILURE: -Severe Sepsis from suspected Aspiration Pneumonia has resolved -required ICU stay and Bipap earlier in the admission for respiratory failure -CXR suggested pneumonia vs. pulmonary edema -cultures were negative -completed treatment with imipenem -ID consulted, appreciate recs -was on Mucomyst inhalation, vibration vest, Mucinex, nebs as needed; mucomyst stopped -was given an additional dose of IV Lasix -has a history of COPD per records as well but does not appear to be in an exacerbation -CXR from 10/19 - showed considerable improvement from previous -Pulm reconsulted, resumed DVT prophylaxis; LE doppler negative, bedside thorax US did not show significant effusions for drainage -was off of antibiotics, but unasyn restarted thursday due to worsening hypoxia and symptoms and elevated WBC; now remains off all abx -continues to have a persistent cough that is non productive -on oxygen at baseline requirements 2-3L -plan for discharge to [facility] tomorrow ACUTE DIASTOLIC CHF: -due to acute hypoxic events - was given IV Lasix for congestion and remains on PO lasix now -currently euvolemic -monitor fluid status, continue maintenance diuretics as she previously was on as an outpatient HX of MULTIPLE VTE: -last CT chest finding of small pulmonary embolism in the right lung -per discussion with family, cardio and previous hospitalist, the patient is not an anticoagulation candidate due to frequent bleeds/risk, but was given a trial of coumadin for treatment of PE from 2016 -LE doppler negative HX of TAVR: -Status post bioprosthetic aortic valve replacement MULTIFACTORIAL ANEMIA: -likely a combination of anemia of CKD with anemia of blood loss and iron deficiency based on prior labs/hx -s/p transfusion with 2 units pRBCs just this admission -presented with symptomatic anemia/secondary to GI bleed -EGD done on October 05 by GI - no active GI bleeding noted, large hiatal hernia noted -was previously told her chronic bleeding was from the small intestine but had refused previous attempts at workup -was transfused with 2 additional units of PRBCs as Hb dropped to 7.1-->10.9--> 10.7 MYRTLE on CKD STAGE III: resolved -Creatinine peaked at 1.94 -likely secondary to IV Lasix/diuresis as well as possible contrast induced MYRTLE -creatinine has since improved and still remains in 1-1.2 range Current Inpatient Medications: Current Inpatient Medications Medications (Trade) Dose Ordered Sig/Rosi Route Start Time Stop Time Status Last Admin Dose Admin Al Hydrox/Mg Hydrox/Simethicone (Maalox Max Susp) 15 ml Q4H PRN PO 10/02/17 21:00 11/01/17 20:59 Magnesium Hydroxide (Milk Of Magnesia Susp) 30 ml Q12H PRN PO 10/02/17 21:00 11/01/17 20:59 Ondansetron HCl (Zofran Inj) 4 mg Q6H PRN IV 10/02/17 21:00 11/01/17 20:59 10/16/17 18:09 4 MG Nitroglycerin (Nitrostat Tab) 0.4 mg UD PRN SL 10/02/17 21:00 11/01/17 20:59 Ferrous Sulfate (Feosol Tab) 325 mg BID PO 10/03/17 09:00 11/02/17 08:59 10/25/17 07:21 325 MG Salmeterol Xinafoate/ Fluticasone (Advair Diskus 250/50 Inh) 1 puff BID INH 10/03/17 09:00 11/02/17 08:59 10/25/17 07:21 1 PUFF Gabapentin (Neurontin Cap) 100 mg DAILY PO 10/03/17 09:00 11/02/17 08:59 10/25/17 07:23 100 MG Lactobacillus Acidophilus (Floranex Tab) 1 tab TIDM PO 10/03/17 07:30 11/02/17 07:29 10/25/17 16:56 1 TAB Lorazepam (Ativan Tab) 0.5 mg HS PRN PO 10/02/17 21:15 11/01/17 21:14 10/24/17 20:48 0.5 MG Magnesium Oxide (Mag-Ox Tab) 400 mg DAILY PO 10/03/17 09:00 11/02/17 08:59 10/25/17 07:23 400 MG Metoprolol Succinate (Toprol Xl Tab) 12.5 mg BID PO 10/03/17 09:00 11/02/17 08:59 10/25/17 07:22 12.5 MG Mirtazapine (Remeron Solutab) 15 mg HS PO 10/03/17 21:00 11/02/17 20:59 10/24/17 20:09 15 MG Paroxetine HCl (pAXil TAB) 40 mg DAILY PO 10/03/17 09:00 11/02/17 08:59 10/25/17 07:24 40 MG Potassium Chloride (Klor-Con M10) 10 meq BID PO 10/03/17 09:00 11/02/17 08:59 10/25/17 07:26 10 MEQ Ranitidine HCl (zANTac TAB) 300 mg HS PO 10/03/17 21:00 11/02/17 20:59 10/24/17 20:08 300 MG Sucralfate (Carafate Susp) 1 gm QID PO 10/03/17 17:00 11/02/17 16:59 10/25/17 16:56 1 GM Lidocaine (Lidoderm Patch 5%) 1 patch QAM TD 10/05/17 09:00 11/04/17 08:59 10/25/17 07:25 1 PATCH Miscellaneous (Remove Lidoderm Patch) 1 ea DAILY@21 N/A 10/04/17 21:00 11/03/17 20:59 10/24/17 20:05 1 EA Pantoprazole Sodium (Protonix Tab) 40 mg BID PO 10/05/17 21:00 11/04/17 20:59 10/25/17 07:22 40 MG Ipratropium [place] (Atrovent 0.02% 0.5MG/2.5ML Neb) 0.5 mg Q2R PRN INH 10/08/17 08:00 11/07/17 07:59 10/21/17 05:34 0.5 MG Levalbuterol (Xopenex 1.25MG/ 0.5ML Neb) 1.25 mg Q2R PRN INH 10/08/17 08:00 11/07/17 07:59 10/21/17 05:34 1.25 MG Ipratropium [place] (Atrovent 0.02% 0.5MG/2.5ML Neb) 0.5 mg Q4R INH 10/08/17 20:00 11/07/17 19:59 10/25/17 15:18 0.5 MG Levalbuterol (Xopenex 1.25MG/ 0.5ML Neb) 1.25 mg Q4R INH 10/08/17 20:00 11/07/17 19:59 10/25/17 15:18 1.25 MG Heparin Sodium (Porcine) (Heparin 10 Unit/ ml 5 ml Flush) 5 ml PRN PRN FLUSH 10/10/17 13:30 11/09/17 13:29 10/25/17 11:26 5 ML Furosemide (Lasix Tab) 40 mg QAM PO 10/11/17 09:00 11/10/17 08:59 10/25/17 07:23 40 MG Acetaminophen 100 ml @ 400 mls/hr Q8H PRN IV 10/10/17 18:15 11/09/17 18:14 10/10/17 18:20 400 MLS/HR Guaifenesin (Mucinex Contr Rel Tab) 600 mg Q12 PO 10/11/17 21:00 11/10/17 20:59 10/25/17 07:21 600 MG Polyethylene (Miralax Powder Packet) 17 gm DAILY PO 10/14/17 09:00 11/01/17 20:59 10/25/17 11:28 17 GM Senna/Docusate Sodium (Senokot S Tab) 1 tab QAM PO 10/14/17 09:00 11/13/17 08:59 10/25/17 07:24 1 TAB Senna (Senokot Tab) 8.6 mg QPM PO 10/13/17 21:00 11/12/17 20:59 10/24/17 20:06 8.6 MG Bisacodyl (Dulcolax Tab) 5 mg BID PRN PO 10/13/17 17:45 11/12/17 17:44 Oxycodone/ Acetaminophen (Percocet 5-325mg Tab) pain not relieved by tylenol Q4H PRN PO 10/17/17 06:30 10/31/17 06:29 10/25/17 13:46 1 TAB Aspirin (Ecotrin Tab) 81 mg QAM PO 10/18/17 16:00 11/17/17 15:59 Future Hold 10/21/17 08:21 81 MG Benzocaine (Orajel 20% Oral Gel) 1 appln QID PRN MT 10/18/17 18:00 11/17/17 17:59 Heparin Sodium (Porcine) (Heparin Sq 5000 Unit/0.5ml) 5,000 unit Q8 SQ 10/20/17 22:00 11/19/17 21:59 Future Hold 10/21/17 21:47 5,000 UNIT Fentanyl (Duragesic Patch) 12 mcg Q72H TD 10/21/17 13:30 11/04/17 13:29 10/24/17 13:10 12 MCG Miscellaneous (Fentanyl Patch Remove & Waste) 1 ea Q3D N/A 10/24/17 13:29 11/23/17 13:28 10/24/17 13:10 1 EA Miscellaneous Information (Check Fentanyl Patch Placement) 1 ea QS N/A 10/21/17 16:00 11/20/17 15:59 10/25/17 15:51 1 EA Menthol (Nice Jonnie) 1 jonnie PRN PRN JONNIE 10/22/17 23:15 11/21/17 23:14 Prednisone (PredniSONE TAB) 20 mg DAILY PO 10/25/17 09:00 11/24/17 08:59 10/25/17 07:22 20 MG
[2017-10-25] MEDS: RANITIDINE HCL 150 MG TAB PO SCH (20:29)
[2017-10-25] MEDS: MIRTAZAPINE SOLTAB 15 MG PO SCH (20:29)
[2017-10-25] MEDS: SENNA 8.6 MG TAB PO SCH (20:29)
[2017-10-25] MEDS: LORAZEPAM 0.5 MG TAB PO PRN (20:33)
[2017-10-26] VITALS (10 sets, daily range): BP systolic 92–174; BP diastolic 57–88; PULSE 63–99; TEMP 36.3–37.1; O2SAT 88–100
[2017-10-26] MEDS: IPRATROPIUM BROMIDE NEB SOLN 0.02% 2.5 ML VIAL INH SCH ×6 (03:24→23:16)
[2017-10-26] MEDS: LEVALBUTEROL 1.25MG/0.5ML NEB INH SCH ×6 (03:24→23:17)
[2017-10-26] MEDS ORDERED: PRED-301 PO (07:45)
[2017-10-26] MEDS ORDERED: LDDP5 TD (07:45)
[2017-10-26] MEDS ORDERED: DRGTP12 TD (07:45)
[2017-10-26] MEDS ORDERED: ATRINS INH ×2 (07:45)
[2017-10-26] MEDS ORDERED: XPNINS1255 INH ×2 (07:45)
[2017-10-26] MEDS ORDERED: CRFUDL PO (07:45)
[2017-10-26] MEDS ORDERED: GFNSR600 PO (07:45)
[2017-10-26] MEDS: OXYCODONE/ACETAMINOPHEN 5-325 TAB PO PRN ×2 (07:54→18:54)
[2017-10-26] MEDS: METOPROLOL SUCC 25MG EXT REL TAB PO SCH ×2 (07:55→20:26)
[2017-10-26] MEDS: LACTOBACILLUS ACIDOPHILUS (FLORANEX) TAB PO SCH ×3 (07:55→17:00)
[2017-10-26] MEDS: MAGNESIUM OXIDE 400 MG TAB PO SCH (07:56)
[2017-10-26] MEDS: PAROXETINE 20 MG TAB PO SCH (07:56)
[2017-10-26] MEDS: GABAPENTIN 100 MG CAP PO SCH (07:56)
[2017-10-26] MEDS: GUAIFENESIN 600 MG TABCR PO SCH ×2 (07:56→20:39)
--- NOTE | 2017-10-26 07:56 | Discharge Instructions ---
Discharge Instructions Date of Service Oct 26, 2017. Admission Reason for Admission: Anemia, Dyspnea, Weakness Discharge Discharge Diagnosis / Problem: Anemia, Respiratory failure, aspiration pneumonia Discharge Goals Goal(s): Therapeutic intervention Activity Recommendations Activity Level: Assistance Required Therapies: Physical Therapy, Occupational Therapy . Additional Information Patient informed of condition: Yes Advance Directives: Yes DNR: No Level of Care: Acute Rehab Communicable Disease: Yes Prognosis: Stable Oxygen at (LPM): 2-4L Marcelo Catheter: No Instructions / Follow-Up Instructions / Follow-Up Please follow up with Primary care physician, Pulmonary, and GI upon discharge from [facility]. Current Hospital Diet Patient's current hospital diet: Regular Diet Discharge Diet Recommended Diet: Regular Diet Procedures Procedures Performed: EGD with biopsy Pending Studies Studies pending at discharge: no Physician Orders On Transfer Special Precautions: Please weigh patient daily; please check labs in 3 days to monitor BMP and CBC; patient has a tendency to desaturate quickly related to volume overload and sometimes with anxiety; patient has chronic black stools (on iron and chronic small intestinal bleed); patient is generally transfused to keep Hemoglobin at 9 Medical Emergencies . Who to Call and When: Medical Emergencies: If at any time you feel your situation is an emergency, please call 911 immediately. . Non-Emergent Contact Non-Emergency issues call your: Primary Care Provider . . "Provider Documentation" section prepared by Cara Alonzo. . Core Measure Problem Core Measures: None
[2017-10-26] MEDS: POTASSIUM CHLORIDE 10 MEQ TABCR PO SCH ×2 (07:57→20:41)
[2017-10-26] MEDS: FUROSEMIDE 40 MG TAB PO SCH (07:57)
[2017-10-26] MEDS: FLUTICASONE/SALMETEROL 250/50 (ADVAIR) 14 PUFF/1 INHALER INH SCH ×2 (07:57→20:36)
[2017-10-26] MEDS: FERROUS SULFATE 325 MG TAB PO SCH ×2 (07:57→20:38)
[2017-10-26] MEDS: CHECK FENTANYL PATCH PLACEMENT SCH ×2 (07:58→16:00)
[2017-10-26] MEDS: DOCUSATE SODIUM/SENNA 50/8.6MG TAB PO SCH (07:58)
[2017-10-26] MEDS: PANTOprazole SOD 40 MG TAB PO SCH ×2 (07:59→20:39)
[2017-10-26] MEDS: POLYETHYLENE (MIRALAX) 17 GM PACK PO SCH (07:59)
[2017-10-26] MEDS: SUCRALFATE 1 GM/10 ML UDC PO SCH ×4 (08:00→20:42)
[2017-10-26] MEDS: LIDODERM (LIDOCAINE) PATCH 5% TD SCH (08:01)
[2017-10-26] MEDS ORDERED: LORAZEPAM INJ 0.5 MG in SYRINGE 0.25 ML IV STA (11:00)
[2017-10-26] MEDS: LORAZEPAM 0.5 MG TAB PO PRN ×2 (11:12→20:38)
[2017-10-26] MEDS ORDERED: LORAZEPAM 0.5 MG TAB PO PRN (11:15)
--- NOTE | 2017-10-26 11:55 | DIAGNOSTIC IMAGING REPORT ---
CHEST ONE VIEW PORTABLE CLINICAL HISTORY: Shortness of breath COMPARISON STUDY: Chest radiograph October 19, 2017. FINDINGS: A large lateral hernia is again noted. Cardiac mediastinal silhouette is stable. There is a prosthetic aortic valve. There is no pneumothorax. There is no radiographic evidence of pulmonary edema. Mild left lower lung opacity has slightly increased. IMPRESSION: Mild increase in left lower lung opacity which could reflect pneumonia or atelectasis. Electronically signed by: Pierce Abraham M.D. 10/26/2017 11:54 AM Dictated Date/Time: 10/26/2017 11:53 AM
[2017-10-26] MEDS ORDERED: OPTIRAY 320 IV PRN (12:30)
[2017-10-26 13:07] LABS: HEMATOCRIT 41.1 % (37-47); HEMOGLOBIN 12.8 g/dL (12.0-16.0); MEAN CELL VOLUME 95.1 fL (80-100); MEAN CORPUSCULAR HEMOGLOBIN 29.6 pg (25-34); MEAN CORPUSCULAR HGB CONC 31.1 g/dl (32-36); MEAN PLATELET VOLUME 9.8 fL (7.4-10.4); PLATELET COUNT 330 K/uL (130-400); RED CELL DISTRIBUTION WIDTH CV 16.2 % (11.5-14.5); RED CELL DISTRIBUTION WIDTH SD 57.1 fL (36.4-46.3); WHITE BLOOD COUNT 23.38 K/uL (4.8-10.8)
[2017-10-26 13:18] LABS: CALCIUM 10.5 mg/dl (8.5-10.1); CREATININE 1.6 mg/dl (0.60-1.20); POTASSIUM 4.7 mmol/L (3.5-5.1)
--- NOTE | 2017-10-26 13:50 | DIAGNOSTIC IMAGING REPORT ---
(CHEST FOR PE) ANGIO WITH CT DOSE: 515.22 mGycm HISTORY: Chest pain dyspnea TECHNIQUE: Multiaxial CT images of the chest were performed following the intravenous administration of contrast to evaluate the pulmonary arteries. Maximal intensity projection images were also obtained. A dose lowering technique was utilized adhering to the principles of ALARA. COMPARISON STUDY: 10/08/2017 FINDINGS: Progressive pulmonary emboli now involving the right as well as left main pulmonary arteries. There is no evidence for a saddle embolus. Involvement of the primary and second order right upper and right lower lobe pulmonary arteries is also noted. Findings of involvement of the left upper as well as left lower lobe pulmonary arterial structures is also present. Interval development of patchy right upper lung infiltrative changes. This involves the right upper lobe as well as superior aspects of the right lower lobe. Peripheral paraspinal consolidative changes noted involving the medial right lower lobe. Significant improvement in aeration of the left lower lobe. Aeration of the lingula is also considerably improved. Improved aeration of the left upper lung. There is currently no major infiltrative process left hemithorax. Several old rib fractures noted bilaterally. Stable postoperative changes to the aortic valve and proximal aorta. No evidence for recurrent aneurysm. Fixed lateral hernia unchanged. IMPRESSION: 1. Diffuse bilateral pulmonary emboli markedly progressive as compared to the prior study. 2. There is now involvement of the main and/or central right as well as left pulmonary arterial vasculature as well as involvement of the arterial supplies of the upper and lower lobes bilaterally. 3. Considerable improvement in the infiltrative process of the left hemithorax. 4. Mildly progressive patchy infiltrative changes of the right hemithorax. The above report was generated using voice recognition software. It may contain grammatical, syntax or spelling errors. Electronically signed by: Albert Mccarthy M.D. 10/26/2017 1:49 PM Dictated Date/Time: 10/26/2017 1:41 PM
[2017-10-26] MEDS ORDERED: HEPARIN IV BOLUS 3,000 UNIT in SYRINGE 0 ML IV ONE (15:30)
[2017-10-26 16:05] LABS: BASO % 0.1 %; BASO ABS # 0.02 K/uL (0-0.2); HEMATOCRIT 35.9 % (37-47); HEMOGLOBIN 11.6 g/dL (12.0-16.0); IG# 0.14 K/uL (0.00-0.02); LYMPH ABS # 0.41 K/uL (1.2-3.4); MEAN CELL VOLUME 92.8 fL (80-100); MEAN PLATELET VOLUME 9.4 fL (7.4-10.4); MONO % 5.6 %; MONO ABS # 1.16 K/uL (0.11-0.59); NEUT % 91.6 %; PLATELET COUNT 274 K/uL (130-400); RED CELL DISTRIBUTION WIDTH CV 16.4 % (11.5-14.5); RED CELL DISTRIBUTION WIDTH SD 55.7 fL (36.4-46.3); WHITE BLOOD COUNT 20.63 K/uL (4.8-10.8)
[2017-10-26 16:10] LABS: MEAN CORPUSCULAR HGB CONC 32.3 g/dl (32-36)
[2017-10-26] MEDS: HEPARIN 25,000 UNIT/500ML D5W 500 ML IV SCH (17:20)
[2017-10-26 17:42] LABS: PTT PATIENT 22.9 SECONDS (21.0-31.0)
[2017-10-26] MEDS ORDERED: NURSING VERBAL MED ORDER ONE (18:15)
[2017-10-26] MEDS: RANITIDINE HCL 150 MG TAB PO SCH (20:39)
[2017-10-26] MEDS: SENNA 8.6 MG TAB PO SCH (20:40)
[2017-10-26] MEDS: MIRTAZAPINE SOLTAB 15 MG PO SCH (20:41)
[2017-10-26 23:49] LABS: PTT PATIENT 63.3 SECONDS (21.0-31.0)
[2017-10-27] VITALS (15 sets, daily range): BP systolic 102–127; BP diastolic 60–83; PULSE 63–93; TEMP 36.4–37.3; O2SAT 87–97
[2017-10-27] MEDS: CHECK FENTANYL PATCH PLACEMENT SCH ×4 (00:04→23:14)
[2017-10-27] MEDS ORDERED: HYDROmorphone INJ 0.5 MG/0.5 ML SYR IV STA (00:18)
[2017-10-27] MEDS: IPRATROPIUM BROMIDE NEB SOLN 0.02% 2.5 ML VIAL INH SCH ×6 (04:00→22:32)
[2017-10-27] MEDS: LEVALBUTEROL 1.25MG/0.5ML NEB INH SCH ×6 (04:00→22:33)
[2017-10-27] MEDS: OXYCODONE/ACETAMINOPHEN 5-325 TAB PO PRN ×3 (04:02→21:35)
[2017-10-27 06:08] LABS: EOS % 0.1 %; EOS ABS # 0.01 K/uL (0-0.5); HEMATOCRIT 37.5 % (37-47); IG# 0.08 K/uL (0.00-0.02); LYMPH % 9.8 %; LYMPH ABS # 1.63 K/uL (1.2-3.4); MEAN CELL VOLUME 92.1 fL (80-100); MEAN CORPUSCULAR HEMOGLOBIN 29.5 pg (25-34); MEAN PLATELET VOLUME 9.4 fL (7.4-10.4); MONO % 10.7 %; MONO ABS # 1.77 K/uL (0.11-0.59); NEUT % 78.9 %; NEUT ABS # 13.12 K/uL (1.4-6.5); PLATELET COUNT 297 K/uL (130-400); RED CELL DISTRIBUTION WIDTH CV 16.6 % (11.5-14.5); RED CELL DISTRIBUTION WIDTH SD 56.1 fL (36.4-46.3); WHITE BLOOD COUNT 16.61 K/uL (4.8-10.8)
--- NOTE | 2017-10-27 06:49 | Progress Note ---
Medicine Progress Note Date & Time of Visit: Oct 26, 2017 at 16:32. *LATE ENTRY* Subjective Patient was seen and examined earlier today (10:50 AM) when called by nursing staff that the patient became SOB, anxious, and complained of chest pain. CXR and EKG and labs were performed, Patient was given ativan for anxiety as well. EKG showed new RSR and the patient remain tachypneic and requiring more oxygen than she did this AM and thus a CT PE was ordered and came back to show progression of PE as well as B/L PE. Patient was placed on tele monitoring. Discussed with the family, patient's son Mekhi, and patients niece Courtney and they did want to go ahead and anticoagulate at this time and a PICC line was reinserted and heparin drip was started. The patient reports the chest pain has resolved but does still feel difficulty breathing and has had her oxygen titrated up to 10L. No overnight events were noted. Objective Last 8 Hrs Date Time Temp Pulse Resp B/P (MAP) Pulse Ox O2 Delivery O2 Flow Rate FiO2 10/27/17 04:04 36.8 63 20 116/62 (80) 93 Nasal Cannula 5.0 10/27/17 04:00 Nasal Cannula 5.0 10/27/17 00:00 Nasal Cannula 5.0 10/26/17 23:33 37.1 63 16 92/57 (69) 96 Nasal Cannula 5.0 10/26/17 23:17 70 18 94 Nasal Cannula 5.0 Physical Exam: GENERAL: Patient is in no acute distress. HEENT: No acute trauma, normocephalic, mucous membranes moist, no nasal congestion, no scleral icterus, conjunctivae clear NECK: No stridor, trachea is midline. LUNGS: Diminished bilaterally, no wheeze, no rhonchi, breath sounds equal. Bibasilar crackles HEART: Without murmurs gallops or rubs, regular rate and rhythm. Tachycardia ABDOMEN: Soft, nontender, bowel sounds positive, lower abdominal wall ecchymosis and small hematoma EXTREMITIES: No cyanosis; trace LE edema NEUROLOGIC: Oriented x 3, no acute motor or sensory deficits, no focal weakness. SKIN: No rash, no jaundice, no diaphoresis. Laboratory Results: Last 24 Hours Test 10/26/17 12:31 10/26/17 15:12 10/26/17 15:53 10/26/17 17:19 White Blood Count 23.38 K/uL K/uL 20.63 K/uL Red Blood Count 4.32 M/uL M/uL 3.87 M/uL Hemoglobin 12.8 g/dL g/dL 11.6 g/dL Hematocrit 41.1 % % 35.9 % Mean Corpuscular Volume 95.1 fL fL 92.8 fL Mean Corpuscular Hemoglobin 29.6 pg pg 30.0 pg Mean Corpuscular Hemoglobin Concent 31.1 g/dl g/dl 32.3 g/dl RDW Standard Deviation 57.1 fL fL 55.7 fL RDW Coefficient of Variation 16.2 % % 16.4 % Platelet Count 330 K/uL K/uL 274 K/uL Mean Platelet Volume 9.8 fL fL 9.4 fL Sodium Level 135 mmol/L Potassium Level 4.7 mmol/L Chloride Level 98 mmol/L Carbon Dioxide Level 28 mmol/L Anion Gap 10.0 mmol/L Blood Urea Nitrogen 31 mg/dl Creatinine 1.60 mg/dl Est Creatinine Clear Calc Drug Dose 22.0 ml/min Estimated GFR () 33.9 Estimated GFR (Non- 29.3 BUN/Creatinine Ratio 19.2 Random Glucose 223 mg/dl Calcium Level 10.5 mg/dl Neutrophils (%) (Auto) 91.6 % Lymphocytes (%) (Auto) 2.0 % Monocytes (%) (Auto) 5.6 % Eosinophils (%) (Auto) 0.0 % Basophils (%) (Auto) 0.1 % Neutrophils # (Auto) 18.90 K/uL Lymphocytes # (Auto) 0.41 K/uL Monocytes # (Auto) 1.16 K/uL Eosinophils # (Auto) 0.00 K/uL Basophils # (Auto) 0.02 K/uL Immature Granulocyte % (Auto) 0.7 % Immature Granulocyte # (Auto) 0.14 K/uL Prothrombin Time 10.9 SECONDS Prothromb Time International Ratio 1.0 Activated Partial Thromboplast Time 22.9 SECONDS Partial Thromboplastin Ratio 0.9 Test 10/26/17 23:20 10/27/17 05:39 Activated Partial Thromboplast Time 63.3 SECONDS Partial Thromboplastin Ratio 2.4 White Blood Count 16.61 K/uL Red Blood Count 4.07 M/uL Hemoglobin 12.0 g/dL Hematocrit 37.5 % Mean Corpuscular Volume 92.1 fL Mean Corpuscular Hemoglobin 29.5 pg Mean Corpuscular Hemoglobin Concent 32.0 g/dl Platelet Count 297 K/uL Mean Platelet Volume 9.4 fL Neutrophils (%) (Auto) 78.9 % Lymphocytes (%) (Auto) 9.8 % Monocytes (%) (Auto) 10.7 % Eosinophils (%) (Auto) 0.1 % Basophils (%) (Auto) 0.0 % Neutrophils # (Auto) 13.12 K/uL Lymphocytes # (Auto) 1.63 K/uL Monocytes # (Auto) 1.77 K/uL Eosinophils # (Auto) 0.01 K/uL Basophils # (Auto) 0.00 K/uL RDW Standard Deviation 56.1 fL RDW Coefficient of Variation 16.6 % Immature Granulocyte % (Auto) 0.5 % Immature Granulocyte # (Auto) 0.08 K/uL Assessment & Plan ACUTE ON CHRONIC HYPOXIC RESPIRATORY FAILURE: -Severe Sepsis from suspected Aspiration Pneumonia has resolved -required ICU stay and Bipap earlier in the admission for respiratory failure -CXR suggested pneumonia vs. pulmonary edema -cultures were negative -completed treatment with imipenem -ID consulted, appreciate recs -was on Mucomyst inhalation, vibration vest, Mucinex, nebs as needed; mucomyst stopped -was given an additional dose of IV Lasix -has a history of COPD per records as well but does not appear to be in an exacerbation -CXR from 10/19 - showed considerable improvement from previous -Pulm reconsulted, resumed DVT prophylaxis; LE doppler negative, bedside thorax US did not show significant effusions for drainage -was off of antibiotics, but unasyn restarted thursday due to worsening hypoxia and symptoms and elevated WBC; now remains off all abx -continues to have a persistent cough that is non productive -was on oxygen at baseline requirements 2-3L until this AM when acutely became more SOB and hypoxic and required titration of oxygen to oxy mask, may require bipap if further deterioration BILATERAL PE: -CT PE report states: 1. Diffuse bilateral pulmonary emboli markedly progressive as compared to the prior study. 2. There is now involvement of the main and/or central right as well as left pulmonary arterial vasculature as well as involvement of the arterial supplies of the upper and lower lobes bilaterally. 3. Considerable improvement in the infiltrative process of the left hemithorax. 4. Mildly progressive patchy infiltrative changes of the right hemithorax -this was discussed with family as the patient has had difficulty tolerating anticoagulation in the past due to baseline anemia with chronic GI bleed and recurrent bleeding from GI, epistaxis. Despite the past risk the family is concerned that without anticoagulation the clot burden will increase and at this time they would like to start the heparin drip IV. -Pulm was reconsulted and Williams Schmid did also speak to the family regarding the risks, they would like to continue anticoagulation but were open to a Palliative care consult. ACUTE DIASTOLIC CHF: resolved -due to acute hypoxic events last week - was given IV Lasix for congestion but remains only on PO lasix now -currently euvolemic -monitor fluid status, continue maintenance diuretics as she previously was on as an outpatient HX of MULTIPLE VTE: -previous CT chest finding of small pulmonary embolism in the right lung -per discussion with family, cardio and previous hospitalist, the patient is not an anticoagulation candidate due to frequent bleeds/risk, but was given a trial of coumadin for treatment of PE recently -LE doppler negative HX of TAVR: -Status post bioprosthetic aortic valve replacement MULTIFACTORIAL ANEMIA: -likely a combination of anemia of CKD with anemia of blood loss and iron deficiency based on prior labs/hx -s/p transfusion with 2 units pRBCs just this admission -presented with symptomatic anemia/secondary to GI bleed -EGD done on October 05 by GI - no active GI bleeding noted, large hiatal hernia noted -was previously told her chronic bleeding was from the small intestine but had refused previous attempts at workup -was transfused with 2 additional units of PRBCs as Hb dropped to 6.8/7.1-->10.9 -->10.7-->12 MYRTLE on CKD STAGE III: resolved -Creatinine peaked at 1.94 -likely secondary to IV Lasix/diuresis as well as possible contrast induced MYRTLE -creatinine has since improved and still remains in 1-1.2 range -acutely worse today at 1.6 Current Inpatient Medications: Current Inpatient Medications Medications (Trade) Dose Ordered Sig/Rosi Route Start Time Stop Time Status Last Admin Dose Admin Al Hydrox/Mg Hydrox/Simethicone (Maalox Max Susp) 15 ml Q4H PRN PO 10/02/17 21:00 11/01/17 20:59 Magnesium Hydroxide (Milk Of Magnesia Susp) 30 ml Q12H PRN PO 10/02/17 21:00 11/01/17 20:59 Ondansetron HCl (Zofran Inj) 4 mg Q6H PRN IV 10/02/17 21:00 11/01/17 20:59 10/16/17 18:09 4 MG Nitroglycerin (Nitrostat Tab) 0.4 mg UD PRN SL 10/02/17 21:00 11/01/17 20:59 Ferrous Sulfate (Feosol Tab) 325 mg BID PO 10/03/17 09:00 11/02/17 08:59 10/26/17 20:38 325 MG Salmeterol Xinafoate/ Fluticasone (Advair Diskus 250/50 Inh) 1 puff BID INH 10/03/17 09:00 11/02/17 08:59 10/26/17 20:36 1 PUFF Gabapentin (Neurontin Cap) 100 mg DAILY PO 10/03/17 09:00 11/02/17 08:59 10/26/17 07:56 100 MG Lactobacillus Acidophilus (Floranex Tab) 1 tab TIDM PO 10/03/17 07:30 11/02/17 07:29 10/26/17 07:55 1 TAB Lorazepam (Ativan Tab) 0.5 mg HS PRN PO 10/02/17 21:15 11/01/17 21:14 10/26/17 20:38 0.5 MG Magnesium Oxide (Mag-Ox Tab) 400 mg DAILY PO 10/03/17 09:00 11/02/17 08:59 10/26/17 07:56 400 MG Metoprolol Succinate (Toprol Xl Tab) 12.5 mg BID PO 10/03/17 09:00 11/02/17 08:59 10/26/17 07:55 12.5 MG Mirtazapine (Remeron Solutab) 15 mg HS PO 10/03/17 21:00 11/02/17 20:59 10/26/17 20:41 15 MG Paroxetine HCl (pAXil TAB) 40 mg DAILY PO 10/03/17 09:00 11/02/17 08:59 10/26/17 07:56 40 MG Potassium Chloride (Klor-Con M10) 10 meq BID PO 10/03/17 09:00 11/02/17 08:59 10/26/17 20:41 10 MEQ Ranitidine HCl (zANTac TAB) 300 mg HS PO 10/03/17 21:00 11/02/17 20:59 10/26/17 20:39 300 MG Sucralfate (Carafate Susp) 1 gm QID PO 10/03/17 17:00 11/02/17 16:59 10/26/17 20:42 1 GM Lidocaine (Lidoderm Patch 5%) 1 patch QAM TD 10/05/17 09:00 11/04/17 08:59 10/26/17 08:01 1 PATCH Miscellaneous (Remove Lidoderm Patch) 1 ea DAILY@21 N/A 10/04/17 21:00 11/03/17 20:59 10/26/17 20:36 1 EA Pantoprazole Sodium (Protonix Tab) 40 mg BID PO 10/05/17 21:00 11/04/17 20:59 10/26/17 20:39 40 MG Ipratropium [place] (Atrovent 0.02% 0.5MG/2.5ML Neb) 0.5 mg Q2R PRN INH 10/08/17 08:00 11/07/17 07:59 10/21/17 05:34 0.5 MG Levalbuterol (Xopenex 1.25MG/ 0.5ML Neb) 1.25 mg Q2R PRN INH 10/08/17 08:00 11/07/17 07:59 10/21/17 05:34 1.25 MG Ipratropium [place] (Atrovent 0.02% 0.5MG/2.5ML Neb) 0.5 mg Q4R INH 10/08/17 20:00 11/07/17 19:59 10/26/17 23:16 0.5 MG Levalbuterol (Xopenex 1.25MG/ 0.5ML Neb) 1.25 mg Q4R INH 10/08/17 20:00 11/07/17 19:59 10/26/17 23:17 1.25 MG Heparin Sodium (Porcine) (Heparin 10 Unit/ ml 5 ml Flush) 5 ml PRN PRN FLUSH 10/10/17 13:30 11/09/17 13:29 10/25/17 11:26 5 ML Furosemide (Lasix Tab) 40 mg QAM PO 10/11/17 09:00 11/10/17 08:59 10/26/17 07:57 40 MG Acetaminophen 100 ml @ 400 mls/hr Q8H PRN IV 10/10/17 18:15 11/09/17 18:14 10/10/17 18:20 400 MLS/HR Guaifenesin (Mucinex Contr Rel Tab) 600 mg Q12 PO 10/11/17 21:00 11/10/17 20:59 10/26/17 20:39 600 MG Polyethylene (Miralax Powder Packet) 17 gm DAILY PO 10/14/17 09:00 11/01/17 20:59 10/26/17 07:59 17 GM Senna/Docusate Sodium (Senokot S Tab) 1 tab QAM PO 10/14/17 09:00 11/13/17 08:59 10/26/17 07:58 1 TAB Senna (Senokot Tab) 8.6 mg QPM PO 10/13/17 21:00 11/12/17 20:59 10/25/17 20:29 8.6 MG Bisacodyl (Dulcolax Tab) 5 mg BID PRN PO 10/13/17 17:45 11/12/17 17:44 Oxycodone/ Acetaminophen (Percocet 5-325mg Tab) pain not relieved by tylenol Q4H PRN PO 10/17/17 06:30 10/31/17 06:29 10/27/17 04:02 1 TAB Aspirin (Ecotrin Tab) 81 mg QAM PO 10/18/17 16:00 11/17/17 15:59 Future Hold 10/21/17 08:21 81 MG Benzocaine (Orajel 20% Oral Gel) 1 appln QID PRN MT 10/18/17 18:00 11/17/17 17:59 Heparin Sodium (Porcine) (Heparin Sq 5000 Unit/0.5ml) 5,000 unit Q8 SQ 10/20/17 22:00 11/19/17 21:59 Future Hold 10/21/17 21:47 5,000 UNIT Fentanyl (Duragesic Patch) 12 mcg Q72H TD 10/21/17 13:30 11/04/17 13:29 10/24/17 13:10 12 MCG Miscellaneous (Fentanyl Patch Remove & Waste) 1 ea Q3D N/A 10/24/17 13:29 11/23/17 13:28 10/24/17 13:10 1 EA Miscellaneous Information (Check Fentanyl Patch Placement) 1 ea QS N/A 10/21/17 16:00 11/20/17 15:59 10/27/17 00:04 1 EA Menthol (Nice Jonnie) 1 jonnie PRN PRN JONNIE 10/22/17 23:15 11/21/17 23:14 Prednisone (PredniSONE TAB) 20 mg DAILY PO 10/25/17 09:00 11/24/17 08:59 10/26/17 07:56 20 MG Ioversol (Optiray 320) 100 ml UD PRN IV 10/26/17 12:30 10/30/17 12:29 Heparin Sodium/ Dextrose 500 ml @ 13 mls/hr Q24H IV 10/26/17 15:30 11/25/17 15:29 10/26/17 17:20 13 MLS/HR
[2017-10-27 07:55] LABS: PTT PATIENT 64.8 SECONDS (21.0-31.0)
[2017-10-27] MEDS: FLUTICASONE/SALMETEROL 250/50 (ADVAIR) 14 PUFF/1 INHALER INH SCH ×2 (07:57→21:28)
[2017-10-27] MEDS: SUCRALFATE 1 GM/10 ML UDC PO SCH ×4 (07:57→21:28)
[2017-10-27] MEDS: LACTOBACILLUS ACIDOPHILUS (FLORANEX) TAB PO SCH ×3 (07:58→17:09)
[2017-10-27] MEDS: FERROUS SULFATE 325 MG TAB PO SCH ×2 (07:58→21:32)
[2017-10-27] MEDS: GUAIFENESIN 600 MG TABCR PO SCH ×2 (07:58→21:32)
[2017-10-27] MEDS: DOCUSATE SODIUM/SENNA 50/8.6MG TAB PO SCH (07:59)
[2017-10-27] MEDS: METOPROLOL SUCC 25MG EXT REL TAB PO SCH ×2 (07:59→21:30)
[2017-10-27] MEDS: POTASSIUM CHLORIDE 10 MEQ TABCR PO SCH ×2 (08:00→21:37)
[2017-10-27] MEDS: PAROXETINE 20 MG TAB PO SCH (08:00)
[2017-10-27] MEDS: FUROSEMIDE 40 MG TAB PO SCH (08:01)
[2017-10-27] MEDS: GABAPENTIN 100 MG CAP PO SCH (08:01)
[2017-10-27] MEDS: PANTOprazole SOD 40 MG TAB PO SCH ×2 (08:01→21:31)
[2017-10-27] MEDS: POLYETHYLENE (MIRALAX) 17 GM PACK PO SCH (08:02)
[2017-10-27] MEDS: LIDODERM (LIDOCAINE) PATCH 5% TD SCH (08:02)
[2017-10-27] MEDS: MAGNESIUM OXIDE 400 MG TAB PO SCH (08:02)
[2017-10-27] MEDS: LORAZEPAM 0.5 MG TAB PO PRN ×2 (08:05→21:33)
[2017-10-27] MEDS ORDERED: MoRPHine SULFATE 2 MG/ML CARP IV STA (08:52)
--- NOTE | 2017-10-27 09:10 | Progress Note ---
Medicine Progress Note Date & Time of Visit: Oct 27, 2017 at 08:50 . Subjective Experiencing bilateral chest discomfort, worse with inspiration. No fever. Occasional cough. No nausea or vomiting. No reported diarrhea, melena, hematochezia. . Objective Last 8 Hrs Date Time Temp Pulse Resp B/P (MAP) Pulse Ox O2 Delivery O2 Flow Rate FiO2 10/27/17 07:57 36.8 76 18 127/83 (98) 90 10/27/17 07:39 70 24 87 Nasal Cannula 5.0 10/27/17 04:04 36.8 63 20 116/62 (80) 93 Nasal Cannula 5.0 10/27/17 04:00 Nasal Cannula 5.0 Physical Exam: General-anxious, apprehensive, appears to be uncomfortable Lungs-few scattered rhonchi; moderate respiratory distress Cardiovascular- RRR; no gallop appreciated; + JVD; trace pretibial edema Abdomen- + bowel sounds, soft, nontender -Marcelo catheter draining clear urine Extremities- no cyanosis; no calf tenderness Neuro-mild confusion Skin- warm & dry . Laboratory Results: Last 24 Hours Test 10/26/17 12:31 10/26/17 15:12 10/26/17 15:53 10/26/17 17:19 White Blood Count 23.38 K/uL K/uL 20.63 K/uL Red Blood Count 4.32 M/uL M/uL 3.87 M/uL Hemoglobin 12.8 g/dL g/dL 11.6 g/dL Hematocrit 41.1 % % 35.9 % Mean Corpuscular Volume 95.1 fL fL 92.8 fL Mean Corpuscular Hemoglobin 29.6 pg pg 30.0 pg Mean Corpuscular Hemoglobin Concent 31.1 g/dl g/dl 32.3 g/dl RDW Standard Deviation 57.1 fL fL 55.7 fL RDW Coefficient of Variation 16.2 % % 16.4 % Platelet Count 330 K/uL K/uL 274 K/uL Mean Platelet Volume 9.8 fL fL 9.4 fL Sodium Level 135 mmol/L Potassium Level 4.7 mmol/L Chloride Level 98 mmol/L Carbon Dioxide Level 28 mmol/L Anion Gap 10.0 mmol/L Blood Urea Nitrogen 31 mg/dl Creatinine 1.60 mg/dl Est Creatinine Clear Calc Drug Dose 22.0 ml/min Estimated GFR () 33.9 Estimated GFR (Non- 29.3 BUN/Creatinine Ratio 19.2 Random Glucose 223 mg/dl Calcium Level 10.5 mg/dl Neutrophils (%) (Auto) 91.6 % Lymphocytes (%) (Auto) 2.0 % Monocytes (%) (Auto) 5.6 % Eosinophils (%) (Auto) 0.0 % Basophils (%) (Auto) 0.1 % Neutrophils # (Auto) 18.90 K/uL Lymphocytes # (Auto) 0.41 K/uL Monocytes # (Auto) 1.16 K/uL Eosinophils # (Auto) 0.00 K/uL Basophils # (Auto) 0.02 K/uL Immature Granulocyte % (Auto) 0.7 % Immature Granulocyte # (Auto) 0.14 K/uL Prothrombin Time 10.9 SECONDS Prothromb Time International Ratio 1.0 Activated Partial Thromboplast Time 22.9 SECONDS Partial Thromboplastin Ratio 0.9 Test 10/26/17 23:20 10/27/17 05:39 Activated Partial Thromboplast Time 63.3 SECONDS 64.8 SECONDS Partial Thromboplastin Ratio 2.4 2.5 White Blood Count 16.61 K/uL Red Blood Count 4.07 M/uL Hemoglobin 12.0 g/dL Hematocrit 37.5 % Mean Corpuscular Volume 92.1 fL Mean Corpuscular Hemoglobin 29.5 pg Mean Corpuscular Hemoglobin Concent 32.0 g/dl Platelet Count 297 K/uL Mean Platelet Volume 9.4 fL Neutrophils (%) (Auto) 78.9 % Lymphocytes (%) (Auto) 9.8 % Monocytes (%) (Auto) 10.7 % Eosinophils (%) (Auto) 0.1 % Basophils (%) (Auto) 0.0 % Neutrophils # (Auto) 13.12 K/uL Lymphocytes # (Auto) 1.63 K/uL Monocytes # (Auto) 1.77 K/uL Eosinophils # (Auto) 0.01 K/uL Basophils # (Auto) 0.00 K/uL RDW Standard Deviation 56.1 fL RDW Coefficient of Variation 16.6 % Immature Granulocyte % (Auto) 0.5 % Immature Granulocyte # (Auto) 0.08 K/uL Troponin I 0.863 ng/ml Assessment & Plan ACUTE PULMONARY EMBOLI Acute change of cardiopulmonary status on 3/26/18. CTA of chest demonstrated bilateral pulmonary emboli. Receiving IV heparin. Experiencing bilateral pleuritic chest pain. IV dexamethasone today 1 for pleuritic chest pain. Continue IV heparin. Patient has history of recurrent/chronic GI bleeding transfusion dependent anemia as well as a recent episode of epistaxis. Nevertheless, benefits of anticoagulation outweigh the risks. Limited cardiopulmonary reserve. May be prudent to consider IVC filter realizing that there may be times where anticoagulation needs to be held or INR could be subtherapeutic. Discussed with son. Discuss further with patient when she is feeling better. Patient had a PICC in [facility]. Check venous duplex right upper extremity as well as bilateral lower extremities. ACUTE ON CHRONIC HYPOXIC RESPIRATORY FAILURE Present on admission. Attributed to pneumonia. Titrate supplemental oxygen. CHRONIC LEFT VENTRICULAR DIASTOLIC HEART FAILURE Appears to be compensated. HISTORY AORTIC STENOSIS S/P TAVR. ACUTE KIDNEY INJURY / CKD III History of chronic kidney disease stage III. Serum creatinine shaun from 1.17 to 1.94 with diuresis. Serum creatinine today = 1.56. Follow. ANEMIA Multifactorial. Chronic/recurrent GI bleeding with previous endoscopies. Anemia of chronic kidney disease. Transfuse PRN to maintain adequate H/H. POLYARTHRITIS Continue chronic prednisone therapy. VTE PROPHYLAXIS Received SQ heparin early in hospital stay. Now receiving IV heparin for acute pulmonary embolism. RESUSCITATION STATUS Full resuscitation. DISPOSITION To be determined. Internal medicine follow-up with Dr. Myrna Inman. [employer] visiting this morning and given update. . Current Inpatient Medications: Current Inpatient Medications Medications (Trade) Dose Ordered Sig/Rosi Route Start Time Stop Time Status Last Admin Dose Admin Al Hydrox/Mg Hydrox/Simethicone (Maalox Max Susp) 15 ml Q4H PRN PO 10/02/17 21:00 11/01/17 20:59 Magnesium Hydroxide (Milk Of Magnesia Susp) 30 ml Q12H PRN PO 10/02/17 21:00 11/01/17 20:59 Ondansetron HCl (Zofran Inj) 4 mg Q6H PRN IV 10/02/17 21:00 11/01/17 20:59 10/16/17 18:09 4 MG Nitroglycerin (Nitrostat Tab) 0.4 mg UD PRN SL 10/02/17 21:00 11/01/17 20:59 Ferrous Sulfate (Feosol Tab) 325 mg BID PO 10/03/17 09:00 11/02/17 08:59 10/27/17 07:58 325 MG Salmeterol Xinafoate/ Fluticasone (Advair Diskus 250/50 Inh) 1 puff BID INH 10/03/17 09:00 11/02/17 08:59 10/27/17 07:57 1 PUFF Gabapentin (Neurontin Cap) 100 mg DAILY PO 10/03/17 09:00 11/02/17 08:59 10/27/17 08:01 100 MG Lactobacillus Acidophilus (Floranex Tab) 1 tab TIDM PO 10/03/17 07:30 11/02/17 07:29 10/27/17 07:58 1 TAB Lorazepam (Ativan Tab) 0.5 mg HS PRN PO 10/02/17 21:15 11/01/17 21:14 10/27/17 08:05 0.5 MG Magnesium Oxide (Mag-Ox Tab) 400 mg DAILY PO 10/03/17 09:00 11/02/17 08:59 10/27/17 08:02 400 MG Metoprolol Succinate (Toprol Xl Tab) 12.5 mg BID PO 10/03/17 09:00 11/02/17 08:59 10/27/17 07:59 12.5 MG Mirtazapine (Remeron Solutab) 15 mg HS PO 10/03/17 21:00 11/02/17 20:59 10/26/17 20:41 15 MG Paroxetine HCl (pAXil TAB) 40 mg DAILY PO 10/03/17 09:00 11/02/17 08:59 10/27/17 08:00 40 MG Potassium Chloride (Klor-Con M10) 10 meq BID PO 10/03/17 09:00 11/02/17 08:59 10/27/17 08:00 10 MEQ Ranitidine HCl (zANTac TAB) 300 mg HS PO 10/03/17 21:00 11/02/17 20:59 10/26/17 20:39 300 MG Sucralfate (Carafate Susp) 1 gm QID PO 10/03/17 17:00 11/02/17 16:59 10/27/17 07:57 1 GM Lidocaine (Lidoderm Patch 5%) 1 patch QAM TD 10/05/17 09:00 11/04/17 08:59 10/27/17 08:02 1 PATCH Miscellaneous (Remove Lidoderm Patch) 1 ea DAILY@21 N/A 10/04/17 21:00 11/03/17 20:59 10/26/17 20:36 1 EA Pantoprazole Sodium (Protonix Tab) 40 mg BID PO 10/05/17 21:00 11/04/17 20:59 10/27/17 08:01 40 MG Ipratropium [place] (Atrovent 0.02% 0.5MG/2.5ML Neb) 0.5 mg Q2R PRN INH 10/08/17 08:00 11/07/17 07:59 10/21/17 05:34 0.5 MG Levalbuterol (Xopenex 1.25MG/ 0.5ML Neb) 1.25 mg Q2R PRN INH 10/08/17 08:00 11/07/17 07:59 10/21/17 05:34 1.25 MG Ipratropium [place] (Atrovent 0.02% 0.5MG/2.5ML Neb) 0.5 mg Q4R INH 10/08/17 20:00 11/07/17 19:59 10/27/17 07:37 0.5 MG Levalbuterol (Xopenex 1.25MG/ 0.5ML Neb) 1.25 mg Q4R INH 10/08/17 20:00 11/07/17 19:59 10/27/17 07:37 1.25 MG Heparin Sodium (Porcine) (Heparin 10 Unit/ ml 5 ml Flush) 5 ml PRN PRN FLUSH 10/10/17 13:30 11/09/17 13:29 10/25/17 11:26 5 ML Furosemide (Lasix Tab) 40 mg QAM PO 10/11/17 09:00 11/10/17 08:59 10/27/17 08:01 40 MG Acetaminophen 100 ml @ 400 mls/hr Q8H PRN IV 10/10/17 18:15 11/09/17 18:14 10/10/17 18:20 400 MLS/HR Guaifenesin (Mucinex Contr Rel Tab) 600 mg Q12 PO 10/11/17 21:00 11/10/17 20:59 10/27/17 07:58 600 MG Polyethylene (Miralax Powder Packet) 17 gm DAILY PO 10/14/17 09:00 11/01/17 20:59 10/27/17 08:02 17 GM Senna/Docusate Sodium (Senokot S Tab) 1 tab QAM PO 10/14/17 09:00 11/13/17 08:59 10/27/17 07:59 1 TAB Senna (Senokot Tab) 8.6 mg QPM PO 10/13/17 21:00 11/12/17 20:59 10/25/17 20:29 8.6 MG Bisacodyl (Dulcolax Tab) 5 mg BID PRN PO 10/13/17 17:45 11/12/17 17:44 Oxycodone/ Acetaminophen (Percocet 5-325mg Tab) pain not relieved by tylenol Q4H PRN PO 10/17/17 06:30 10/31/17 06:29 10/27/17 08:17 1 TAB Aspirin (Ecotrin Tab) 81 mg QAM PO 10/18/17 16:00 11/17/17 15:59 Future Hold 10/21/17 08:21 81 MG Benzocaine (Orajel 20% Oral Gel) 1 appln QID PRN MT 10/18/17 18:00 11/17/17 17:59 Fentanyl (Duragesic Patch) 12 mcg Q72H TD 10/21/17 13:30 11/04/17 13:29 10/24/17 13:10 12 MCG Miscellaneous (Fentanyl Patch Remove & Waste) 1 ea Q3D N/A 10/24/17 13:29 11/23/17 13:28 10/24/17 13:10 1 EA Miscellaneous Information (Check Fentanyl Patch Placement) 1 ea QS N/A 10/21/17 16:00 11/20/17 15:59 10/27/17 07:56 1 EA Menthol (Nice Jonnie) 1 jonnie PRN PRN JONNIE 10/22/17 23:15 11/21/17 23:14 Prednisone (PredniSONE TAB) 20 mg DAILY PO 10/25/17 09:00 11/24/17 08:59 10/27/17 08:00 20 MG Ioversol (Optiray 320) 100 ml UD PRN IV 10/26/17 12:30 3/30/18 12:29 Heparin Sodium/ Dextrose 500 ml @ 13 mls/hr Q24H IV 10/26/17 15:30 11/25/17 15:29 10/26/17 17:20 13 MLS/HR Morphine Sulfate (MoRPHine SULFATE INJ) 0.5 mg Q1H PRN IV 10/27/17 09:00 11/10/17 08:59 Dexamethasone Sodium Phosphate 4 mg/Syringe 1 ml @ 1 mls/min NOW ONCE IV 10/27/17 09:15 10/27/17 09:16 UNV
[2017-10-27] MEDS ORDERED: DEXAMETHASONE INJ 4 MG in SYRINGE 0 ML IV ONE (09:15)
--- NOTE | 2017-10-27 09:52 | DIAGNOSTIC IMAGING REPORT ---
SINGLE VIEW CHEST CLINICAL HISTORY: Dyspnea. FINDINGS: An AP, portable, upright chest radiograph is compared to chest x-ray and chest CT dated 10/26/2017. The examination is degraded by portable technique and patient rotation. A catheter projects over the left chest, possibly representing a PICC line. The heart is mildly enlarged and there is atherosclerotic calcification of the thoracic aorta. The pulmonary vasculature is noncongested. There is a large hiatal hernia. Stent material projects over the heart. Patchy airspace consolidation is noted at both lung bases. Small pleural effusions are suspected. There is no pneumothorax. The skeletal structures are osteopenic. There are healed bilateral rib fractures. Degenerative change and scoliosis are noted in the thoracic spine. IMPRESSION: 1. Bibasilar patchy airspace consolidation is unchanged. 2. Small pleural effusions are suspected. 3. Cardiomegaly and hiatal hernia. Electronically signed by: Williams Irizarry M.D. 10/27/2017 9:51 AM Dictated Date/Time: 10/27/2017 9:47 AM
[2017-10-27 09:56] LABS: CALCIUM 10.6 mg/dl (8.5-10.1); CREATININE 1.56 mg/dl (0.60-1.20); POTASSIUM 5.4 mmol/L (3.5-5.1)
[2017-10-27] MEDS: FENTANYL PATCH REMOVE & WASTE SCH (13:29)
[2017-10-27] MEDS: FENTANYL 12 MCG/HR TDSY TD SCH (14:20)
--- NOTE | 2017-10-27 14:22 | DIAGNOSTIC IMAGING REPORT ---
ULTRASOUND R VENOUS DOPPLER UPR EXT UNILATERAL CLINICAL HISTORY: pulmonary embolism COMPARISON STUDY: No previous studies for comparison. FINDINGS: No thrombus is visualized within the right internal jugular, subclavian, axillary, or brachial vein. There is right basilic vein thrombus. No thrombus is visualized within the radial or ulnar veins. The cephalic vein appeared patent. IMPRESSION: Basilic vein thrombus. Electronically signed by: Austin Harman M.D. 10/27/2017 2:21 PM Dictated Date/Time: 10/27/2017 2:18 PM
--- NOTE | 2017-10-27 14:25 | DIAGNOSTIC IMAGING REPORT ---
VENOUS DOPPLER LWR EXT BILA CLINICAL HISTORY: 82 years-old Female presenting with pulmonary embolism. TECHNIQUE: Real-time grayscale and color and spectral Doppler ultrasound imaging of the veins of the bilateral lower extremities was performed. Compression and augmentation were also utilized. COMPARISON: 10/20/2017. FINDINGS: Right: Common femoral vein: Patent. Greater saphenous vein: Patent. Deep femoral vein: Patent. Femoral vein: Patent. Popliteal vein: Nonocclusive filling defect consistent with thrombus. Calf veins: Intermittent flow in the peroneal veins suggesting nonocclusive thrombus. Left: Common femoral vein: Patent. Greater saphenous vein: Patent. Deep femoral vein: Patent. Femoral vein: Patent. Popliteal vein: Patent. Calf veins: Patent. Other: Heterogeneously hyperechogenic region in the right popliteal fossa surrounded by a hypoechoic region. This measures 2.5 cm. IMPRESSION: 1. Nonocclusive deep venous thrombosis in the right popliteal vein and right peroneal veins. 2. No deep venous thrombosis in the left lower extremity. 3. Suspected loose body in a decompressed right popliteal cyst. Electronically signed by: José Miguel Rios M.D. 10/27/2017 2:24 PM Dictated Date/Time: 10/27/2017 2:21 PM
[2017-10-27] MEDS: SENNA 8.6 MG TAB PO SCH (21:30)
[2017-10-27] MEDS: RANITIDINE HCL 150 MG TAB PO SCH (21:31)
[2017-10-27] MEDS: MIRTAZAPINE SOLTAB 15 MG PO SCH (21:33)
[2017-10-28] VITALS (12 sets, daily range): BP systolic 115–129; BP diastolic 55–68; PULSE 66–85; TEMP 36.4–37; O2SAT 94–98
[2017-10-28] MEDS: LEVALBUTEROL 1.25MG/0.5ML NEB INH SCH ×6 (03:15→23:06)
[2017-10-28] MEDS: IPRATROPIUM BROMIDE NEB SOLN 0.02% 2.5 ML VIAL INH SCH ×6 (03:15→23:05)
[2017-10-28] MEDS: HEPARIN 25,000 UNIT/500ML D5W 500 ML IV SCH ×2 (04:17→07:45)
[2017-10-28 06:34] LABS: HEMATOCRIT 30.4 % (37-47); HEMOGLOBIN 9.8 g/dL (12.0-16.0); MEAN CELL VOLUME 91.6 fL (80-100); MEAN CORPUSCULAR HEMOGLOBIN 29.5 pg (25-34); MEAN CORPUSCULAR HGB CONC 32.2 g/dl (32-36); MEAN PLATELET VOLUME 9.4 fL (7.4-10.4); PLATELET COUNT 236 K/uL (130-400); RED CELL DISTRIBUTION WIDTH CV 16.7 % (11.5-14.5); RED CELL DISTRIBUTION WIDTH SD 55.7 fL (36.4-46.3); WHITE BLOOD COUNT 17.52 K/uL (4.8-10.8)
[2017-10-28 07:03] LABS: PTT PATIENT 79.3 SECONDS (21.0-31.0)
[2017-10-28 07:08] LABS: CALCIUM 10.2 mg/dl (8.5-10.1); CREATININE 1.45 mg/dl (0.60-1.20); POTASSIUM 4.6 mmol/L (3.5-5.1)
--- NOTE | 2017-10-28 07:13 | DIAGNOSTIC IMAGING REPORT ---
CHEST ONE VIEW PORTABLE CLINICAL HISTORY: cough COMPARISON STUDY: 10/27/2017 FINDINGS: The cardiac images so contours remain stable. The left-sided PICC catheter remains unchanged in position. There is a hiatal hernia. A stent projects over the heart, likely representing an aortic valve stent graft. There are coarsened interstitial markings with patchy bilateral airspace opacities similar to the prior study. There is mild blunting of both lateral costophrenic angles.[ IMPRESSION: No change from the prior study. Suspected small pleural effusions and patchy bilateral airspace opacities Electronically signed by: Austin Harman M.D. 10/28/2017 7:12 AM Dictated Date/Time: 10/28/2017 7:10 AM
[2017-10-28] MEDS: GUAIFENESIN 600 MG TABCR PO SCH ×2 (08:10→21:00)
[2017-10-28] MEDS: METOPROLOL SUCC 25MG EXT REL TAB PO SCH ×2 (08:10→21:00)
[2017-10-28] MEDS: LACTOBACILLUS ACIDOPHILUS (FLORANEX) TAB PO SCH ×3 (08:10→17:14)
[2017-10-28] MEDS: FLUTICASONE/SALMETEROL 250/50 (ADVAIR) 14 PUFF/1 INHALER INH SCH ×2 (08:12→21:00)
[2017-10-28] MEDS: CHECK FENTANYL PATCH PLACEMENT SCH ×2 (08:12→17:14)
[2017-10-28] MEDS: GABAPENTIN 100 MG CAP PO SCH (08:12)
[2017-10-28] MEDS: SUCRALFATE 1 GM/10 ML UDC PO SCH ×4 (08:12→21:00)
[2017-10-28] MEDS: FERROUS SULFATE 325 MG TAB PO SCH ×2 (08:12→21:00)
[2017-10-28] MEDS: MAGNESIUM OXIDE 400 MG TAB PO SCH (08:13)
[2017-10-28] MEDS: SENNA 8.6 MG TAB PO SCH (08:13)
[2017-10-28] MEDS: POLYETHYLENE (MIRALAX) 17 GM PACK PO SCH (08:13)
[2017-10-28] MEDS: FUROSEMIDE 40 MG TAB PO SCH (08:14)
[2017-10-28] MEDS: PANTOprazole SOD 40 MG TAB PO SCH ×2 (08:14→21:00)
[2017-10-28] MEDS: LIDODERM (LIDOCAINE) PATCH 5% TD SCH (08:15)
[2017-10-28] MEDS: PAROXETINE 20 MG TAB PO SCH (08:15)
[2017-10-28] MEDS: DOCUSATE SODIUM/SENNA 50/8.6MG TAB PO SCH (08:15)
[2017-10-28] MEDS: OXYCODONE/ACETAMINOPHEN 5-325 TAB PO PRN (09:22)
[2017-10-28 14:03] LABS: PTT PATIENT 75.1 SECONDS (21.0-31.0)
[2017-10-28 20:40] LABS: PTT PATIENT 38.6 SECONDS (21.0-31.0)
[2017-10-28] MEDS: RANITIDINE HCL 150 MG TAB PO SCH (21:00)
[2017-10-28] MEDS: MIRTAZAPINE SOLTAB 15 MG PO SCH (21:00)
[2017-10-28] MEDS ORDERED: HEPARIN IV BOLUS 4,000 UNIT in SYRINGE 0 ML IV ONE (23:15)
[2017-10-28] MEDS: LORAZEPAM 0.5 MG TAB PO PRN (23:35)
[2017-10-29] VITALS (13 sets, daily range): BP systolic 115–170; BP diastolic 63–82; PULSE 67–88; TEMP 36.4–36.8; O2SAT 93–98
[2017-10-29] MEDS: IPRATROPIUM BROMIDE NEB SOLN 0.02% 2.5 ML VIAL INH SCH ×6 (02:59→23:26)
[2017-10-29] MEDS: LEVALBUTEROL 1.25MG/0.5ML NEB INH SCH ×6 (02:59→23:26)
[2017-10-29] MEDS: CHECK FENTANYL PATCH PLACEMENT SCH ×3 (04:55→17:52)
--- NOTE | 2017-10-29 05:19 | Progress Note ---
Medicine Progress Note Date & Time of Visit: Oct 28, 2017 at 11:15 . Subjective Late entry secondary to computer downtime. Feels somewhat better today. Still very weak. Pleuritic chest pain improved. Ongoing dyspnea. Occasional cough. No anginal symptoms. Anorexic; no nausea or vomiting. No diarrhea. Marcelo catheter. Niece visiting. . Objective Vital signs this morning at 0733: Temperature 37.0, pulse 66, respirations 18, blood pressure 129/67 . Physical Exam: General-lying in bed, no acute distress Lungs-few basilar rales; no respiratory distress Cardiovascular- RRR; no gallop appreciated; + JVD; trace pretibial edema Abdomen- + bowel sounds, soft, nontender -Marcelo catheter draining clear urine Extremities- no cyanosis; no calf tenderness Neuro-alert Skin- warm & dry . Laboratory Results: Last 24 Hours Test 10/28/17 06:16 10/28/17 13:26 10/28/17 20:00 White Blood Count 17.52 K/uL Red Blood Count 3.32 M/uL Hemoglobin 9.8 g/dL Hematocrit 30.4 % Mean Corpuscular Volume 91.6 fL Mean Corpuscular Hemoglobin 29.5 pg Mean Corpuscular Hemoglobin Concent 32.2 g/dl RDW Standard Deviation 55.7 fL RDW Coefficient of Variation 16.7 % Platelet Count 236 K/uL Mean Platelet Volume 9.4 fL Activated Partial Thromboplast Time 79.3 SECONDS 75.1 SECONDS 38.6 SECONDS Partial Thromboplastin Ratio 3.1 2.9 1.5 Sodium Level 135 mmol/L Potassium Level 4.6 mmol/L Chloride Level 98 mmol/L Carbon Dioxide Level 30 mmol/L Anion Gap 7.0 mmol/L Blood Urea Nitrogen 40 mg/dl Creatinine 1.45 mg/dl Est Creatinine Clear Calc Drug Dose 23.5 ml/min Estimated GFR () 38.2 Estimated GFR (Non- 33.0 BUN/Creatinine Ratio 27.4 Random Glucose 112 mg/dl Calcium Level 10.2 mg/dl Assessment & Plan ACUTE PULMONARY EMBOLI Acute change of cardiopulmonary status on 10/26/17. CTA of chest demonstrated bilateral pulmonary emboli. Venous duplex of right upper extremity demonstrated basilic vein thrombosis. Venous duplex of left lower extremities demonstrated nonocclusive DVT in the right popliteal and right peroneal veins. Receiving IV heparin. Patient has history of recurrent/chronic GI bleeding transfusion dependent anemia as well as a recent episode of epistaxis. Nevertheless, benefits of anticoagulation outweigh the risks. Limited cardiopulmonary reserve. May be prudent to consider IVC filter realizing that there may be times where anticoagulation needs to be held or INR could be subtherapeutic. Discussed with son. Discuss further with patient when she is feeling better. ACUTE ON CHRONIC HYPOXIC RESPIRATORY FAILURE Present on admission. Attributed to pneumonia. Titrate supplemental oxygen. CHRONIC LEFT VENTRICULAR DIASTOLIC HEART FAILURE Appears to be compensated. HISTORY AORTIC STENOSIS S/P TAVR. ACUTE KIDNEY INJURY / CKD III History of chronic kidney disease stage III. Serum creatinine shaun from 1.17 to 1.94 with diuresis. Serum creatinine today = 1.45. Follow. ANEMIA Multifactorial. Chronic/recurrent GI bleeding with previous endoscopies. Anemia of chronic kidney disease. Hemoglobin this morning = 9.8. Transfuse PRN to maintain adequate H/H. POLYARTHRITIS Continue chronic prednisone therapy. VTE PROPHYLAXIS Received SQ heparin early in hospital stay. Now receiving IV heparin for acute pulmonary embolism. RESUSCITATION STATUS Full resuscitation. DISPOSITION To be determined. Internal medicine follow-up with Dr. Myrna Inman. Alfonso visiting this morning and given update. . Current Inpatient Medications: Current Inpatient Medications Medications (Trade) Dose Ordered Sig/Rosi Route Start Time Stop Time Status Last Admin Dose Admin Al Hydrox/Mg Hydrox/Simethicone (Maalox Max Susp) 15 ml Q4H PRN PO 10/02/17 21:00 11/01/17 20:59 Magnesium Hydroxide (Milk Of Magnesia Susp) 30 ml Q12H PRN PO 10/02/17 21:00 11/01/17 20:59 Ondansetron HCl (Zofran Inj) 4 mg Q6H PRN IV 10/02/17 21:00 11/01/17 20:59 10/16/17 18:09 4 MG Nitroglycerin (Nitrostat Tab) 0.4 mg UD PRN SL 10/02/17 21:00 11/01/17 20:59 Ferrous Sulfate (Feosol Tab) 325 mg BID PO 10/03/17 09:00 11/02/17 08:59 10/28/17 21:00 325 MG Salmeterol Xinafoate/ Fluticasone (Advair Diskus 250/50 Inh) 1 puff BID INH 10/03/17 09:00 11/02/17 08:59 10/28/17 21:00 1 PUFF Gabapentin (Neurontin Cap) 100 mg DAILY PO 10/03/17 09:00 11/02/17 08:59 10/28/17 08:12 100 MG Lactobacillus Acidophilus (Floranex Tab) 1 tab TIDM PO 10/03/17 07:30 11/02/17 07:29 10/28/17 17:14 1 TAB Lorazepam (Ativan Tab) 0.5 mg HS PRN PO 10/02/17 21:15 11/01/17 21:14 10/28/17 23:35 0.5 MG Magnesium Oxide (Mag-Ox Tab) 400 mg DAILY PO 10/03/17 09:00 11/02/17 08:59 10/28/17 08:13 400 MG Metoprolol Succinate (Toprol Xl Tab) 12.5 mg BID PO 10/03/17 09:00 11/02/17 08:59 10/28/17 21:00 12.5 MG Mirtazapine (Remeron Solutab) 15 mg HS PO 10/03/17 21:00 11/02/17 20:59 10/28/17 21:00 15 MG Paroxetine HCl (pAXil TAB) 40 mg DAILY PO 10/03/17 09:00 11/02/17 08:59 10/28/17 08:15 40 MG Ranitidine HCl (zANTac TAB) 300 mg HS PO 10/03/17 21:00 11/02/17 20:59 10/28/17 21:00 300 MG Sucralfate (Carafate Susp) 1 gm QID PO 10/03/17 17:00 11/02/17 16:59 10/28/17 21:00 1 GM Lidocaine (Lidoderm Patch 5%) 1 patch QAM TD 10/05/17 09:00 11/04/17 08:59 10/28/17 08:15 1 PATCH Miscellaneous (Remove Lidoderm Patch) 1 ea DAILY@21 N/A 10/04/17 21:00 11/03/17 20:59 10/28/17 21:00 1 EA Pantoprazole Sodium (Protonix Tab) 40 mg BID PO 10/05/17 21:00 11/04/17 20:59 10/28/17 21:00 40 MG Ipratropium [place] (Atrovent 0.02% 0.5MG/2.5ML Neb) 0.5 mg Q2R PRN INH 10/08/17 08:00 11/07/17 07:59 10/21/17 05:34 0.5 MG Levalbuterol (Xopenex 1.25MG/ 0.5ML Neb) 1.25 mg Q2R PRN INH 10/08/17 08:00 11/07/17 07:59 10/21/17 05:34 1.25 MG Ipratropium [place] (Atrovent 0.02% 0.5MG/2.5ML Neb) 0.5 mg Q4R INH 10/08/17 20:00 11/07/17 19:59 10/28/17 23:05 0.5 MG Levalbuterol (Xopenex 1.25MG/ 0.5ML Neb) 1.25 mg Q4R INH 10/08/17 20:00 11/07/17 19:59 10/28/17 23:06 1.25 MG Heparin Sodium (Porcine) (Heparin 10 Unit/ ml 5 ml Flush) 5 ml PRN PRN FLUSH 10/10/17 13:30 11/09/17 13:29 10/25/17 11:26 5 ML Furosemide (Lasix Tab) 40 mg QAM PO 10/11/17 09:00 11/10/17 08:59 10/28/17 08:14 40 MG Acetaminophen 100 ml @ 400 mls/hr Q8H PRN IV 10/10/17 18:15 11/09/17 18:14 10/10/17 18:20 400 MLS/HR Guaifenesin (Mucinex Contr Rel Tab) 600 mg Q12 PO 10/11/17 21:00 11/10/17 20:59 10/28/17 21:00 600 MG Polyethylene (Miralax Powder Packet) 17 gm DAILY PO 10/14/17 09:00 11/01/17 20:59 10/28/17 08:13 17 GM Senna/Docusate Sodium (Senokot S Tab) 1 tab QAM PO 10/14/17 09:00 11/13/17 08:59 10/28/17 08:15 1 TAB Senna (Senokot Tab) 8.6 mg QPM PO 10/13/17 21:00 11/12/17 20:59 10/28/17 08:13 8.6 MG Bisacodyl (Dulcolax Tab) 5 mg BID PRN PO 10/13/17 17:45 11/12/17 17:44 Oxycodone/ Acetaminophen (Percocet 5-325mg Tab) pain not relieved by tylenol Q4H PRN PO 10/17/17 06:30 10/31/17 06:29 10/28/17 09:22 2 TAB Aspirin (Ecotrin Tab) 81 mg QAM PO 10/18/17 16:00 11/17/17 15:59 Future Hold 10/21/17 08:21 81 MG Benzocaine (Orajel 20% Oral Gel) 1 appln QID PRN MT 10/18/17 18:00 11/17/17 17:59 Fentanyl (Duragesic Patch) 12 mcg Q72H TD 10/21/17 13:30 11/04/17 13:29 10/27/17 14:20 12 MCG Miscellaneous (Fentanyl Patch Remove & Waste) 1 ea Q3D N/A 10/24/17 13:29 11/23/17 13:28 10/27/17 13:29 1 EA Miscellaneous Information (Check Fentanyl Patch Placement) 1 ea QS N/A 10/21/17 16:00 11/20/17 15:59 10/29/17 04:55 1 EA Menthol (Nice Jonnie) 1 jonnie PRN PRN JONNIE 10/22/17 23:15 11/21/17 23:14 Prednisone (PredniSONE TAB) 20 mg DAILY PO 10/25/17 09:00 11/24/17 08:59 10/28/17 08:13 20 MG Ioversol (Optiray 320) 100 ml UD PRN IV 10/26/17 12:30 10/30/17 12:29 Heparin Sodium/ Dextrose 500 ml @ 12 mls/hr Q24H IV 10/26/17 15:30 11/25/17 15:29 10/28/17 04:17 13 MLS/HR Morphine Sulfate (MoRPHine SULFATE INJ) 0.5 mg Q1H PRN IV 10/27/17 09:00 11/10/17 08:59 Enteral Nutritional Formula (Boost Breeze Nutritional Drink) 1 box [id number] PO 10/29/17 07:00 11/28/17 06:59
[2017-10-29 06:49] LABS: HEMATOCRIT 30.4 % (37-47); HEMOGLOBIN 9.6 g/dL (12.0-16.0); MEAN CELL VOLUME 93.3 fL (80-100); MEAN CORPUSCULAR HEMOGLOBIN 29.4 pg (25-34); MEAN CORPUSCULAR HGB CONC 31.6 g/dl (32-36); MEAN PLATELET VOLUME 9.9 fL (7.4-10.4); PLATELET COUNT 253 K/uL (130-400); RED CELL DISTRIBUTION WIDTH CV 16.8 % (11.5-14.5); RED CELL DISTRIBUTION WIDTH SD 57.4 fL (36.4-46.3)
[2017-10-29 07:21] LABS: CALCIUM 9.6 mg/dl (8.5-10.1); CREATININE 1.21 mg/dl (0.60-1.20); POTASSIUM 3.8 mmol/L (3.5-5.1)
[2017-10-29] MEDS: OXYCODONE/ACETAMINOPHEN 5-325 TAB PO PRN ×2 (07:54→18:05)
[2017-10-29] MEDS: POLYETHYLENE (MIRALAX) 17 GM PACK PO SCH (07:57)
[2017-10-29] MEDS: LIDODERM (LIDOCAINE) PATCH 5% TD SCH (07:57)
[2017-10-29] MEDS: LACTOBACILLUS ACIDOPHILUS (FLORANEX) TAB PO SCH ×3 (07:58→17:51)
[2017-10-29] MEDS: METOPROLOL SUCC 25MG EXT REL TAB PO SCH ×2 (07:58→19:48)
[2017-10-29] MEDS: FLUTICASONE/SALMETEROL 250/50 (ADVAIR) 14 PUFF/1 INHALER INH SCH ×2 (07:59→19:49)
[2017-10-29] MEDS: SUCRALFATE 1 GM/10 ML UDC PO SCH ×4 (07:59→19:48)
[2017-10-29] MEDS: DOCUSATE SODIUM/SENNA 50/8.6MG TAB PO SCH ×2 (07:59→19:49)
[2017-10-29] MEDS: GABAPENTIN 100 MG CAP PO SCH (07:59)
[2017-10-29] MEDS: GUAIFENESIN 600 MG TABCR PO SCH ×2 (08:00→19:49)
[2017-10-29] MEDS: BOOST BREEZE NUTRITION DRINK 1 BOX PO SCH ×2 (08:00→14:00)
[2017-10-29] MEDS: FUROSEMIDE 40 MG TAB PO SCH (08:01)
[2017-10-29] MEDS: MAGNESIUM OXIDE 400 MG TAB PO SCH (08:01)
[2017-10-29] MEDS: PAROXETINE 20 MG TAB PO SCH (08:02)
[2017-10-29] MEDS: FERROUS SULFATE 325 MG TAB PO SCH ×2 (08:02→19:49)
[2017-10-29] MEDS: PANTOprazole SOD 40 MG TAB PO SCH ×2 (08:04→19:49)
[2017-10-29 14:23] LABS: PTT PATIENT 38.2 SECONDS (21.0-31.0)
[2017-10-29] MEDS ORDERED: HEPARIN IV BOLUS 4,000 UNIT in SYRINGE 0 ML IV ONE (14:45)
[2017-10-29] MEDS: MIRTAZAPINE SOLTAB 15 MG PO SCH (19:48)
[2017-10-29] MEDS: RANITIDINE HCL 150 MG TAB PO SCH (19:48)
--- NOTE | 2017-10-29 19:49 | Progress Note ---
Medicine Progress Note Date & Time of Visit: Oct 29, 2017 at 15:15 . Subjective Feels better. Pleuritic chest pain improved. Less short of breath. Occasional cough. No anginal symptoms. Appetite improved. No nausea or vomiting. No diarrhea. Still has Marcelo catheter. . Objective Last 8 Hrs Date Time Temp Pulse Resp B/P (MAP) Pulse Ox O2 Delivery O2 Flow Rate FiO2 10/29/17 19:34 36.4 77 20 129/76 (93) 97 Nasal Cannula 4.0 10/29/17 16:00 Nasal Cannula 4.0 10/29/17 15:33 36.4 85 20 153/77 (102) 96 Nasal Cannula 4.0 10/29/17 14:34 74 16 98 Nasal Cannula 4.0 10/29/17 12:00 95 Nasal Cannula 5.0 98 Physical Exam: General-lying in bed, no acute distress Lungs-few basilar rales; no respiratory distress Cardiovascular- RRR; no gallop appreciated; + JVD; trace pretibial edema Abdomen- + bowel sounds, soft, nontender -Marcelo catheter draining clear urine Extremities- no cyanosis; no calf tenderness Neuro-alert Skin- warm & dry . Laboratory Results: Last 24 Hours Test 10/28/17 20:00 10/29/17 06:10 10/29/17 14:01 Activated Partial Thromboplast Time 38.6 SECONDS 90.0 SECONDS 38.2 SECONDS Partial Thromboplastin Ratio 1.5 3.5 1.5 White Blood Count 13.40 K/uL Red Blood Count 3.26 M/uL Hemoglobin 9.6 g/dL Hematocrit 30.4 % Mean Corpuscular Volume 93.3 fL Mean Corpuscular Hemoglobin 29.4 pg Mean Corpuscular Hemoglobin Concent 31.6 g/dl RDW Standard Deviation 57.4 fL RDW Coefficient of Variation 16.8 % Platelet Count 253 K/uL Mean Platelet Volume 9.9 fL Sodium Level 139 mmol/L Potassium Level 3.8 mmol/L Chloride Level 103 mmol/L Carbon Dioxide Level 31 mmol/L Anion Gap 5.0 mmol/L Blood Urea Nitrogen 33 mg/dl Creatinine 1.21 mg/dl Est Creatinine Clear Calc Drug Dose 26.1 ml/min Estimated GFR () 47.6 Estimated GFR (Non- 41.1 BUN/Creatinine Ratio 26.9 Random Glucose 93 mg/dl Calcium Level 9.6 mg/dl Assessment & Plan ACUTE PULMONARY EMBOLI Acute change of cardiopulmonary status on 10/26/17. CTA of chest demonstrated bilateral pulmonary emboli. Venous duplex of right upper extremity demonstrated basilic vein thrombosis. Venous duplex of left lower extremities demonstrated nonocclusive DVT in the right popliteal and right peroneal veins. Receiving IV heparin. Patient has history of recurrent/chronic GI bleeding transfusion dependent anemia as well as a recent episode of epistaxis. Nevertheless, benefits of anticoagulation outweigh the risks. Limited cardiopulmonary reserve. May be prudent to consider IVC filter realizing that there may be times where anticoagulation needs to be held or INR could be subtherapeutic. Discussed with patient and her son; will discuss with Vascular Surgery. ACUTE ON CHRONIC HYPOXIC RESPIRATORY FAILURE Present on admission. Attributed to pneumonia. Titrate supplemental oxygen. CHRONIC LEFT VENTRICULAR DIASTOLIC HEART FAILURE Appears to be compensated. HISTORY AORTIC STENOSIS S/P TAVR. ACUTE KIDNEY INJURY / CKD III History of chronic kidney disease stage III. Serum creatinine shaun from 1.17 to 1.94 with diuresis. Serum creatinine today = 1.21. Follow. ANEMIA Multifactorial. Chronic/recurrent GI bleeding with previous endoscopies. Anemia of chronic kidney disease. Hemoglobin this morning = 9.6. Transfuse PRN to maintain adequate H/H. POLYARTHRITIS Continue chronic prednisone therapy. VTE PROPHYLAXIS Received SQ heparin early in hospital stay. Now receiving IV heparin for acute pulmonary embolism. RESUSCITATION STATUS Full resuscitation. DISPOSITION To be determined. Internal medicine follow-up with Dr. Myrna Inman. . Current Inpatient Medications: Current Inpatient Medications Medications (Trade) Dose Ordered Sig/Rosi Route Start Time Stop Time Status Last Admin Dose Admin Al Hydrox/Mg Hydrox/Simethicone (Maalox Max Susp) 15 ml Q4H PRN PO 10/02/17 21:00 11/01/17 20:59 Magnesium Hydroxide (Milk Of Magnesia Susp) 30 ml Q12H PRN PO 10/02/17 21:00 11/01/17 20:59 Ondansetron HCl (Zofran Inj) 4 mg Q6H PRN IV 10/02/17 21:00 11/01/17 20:59 10/16/17 18:09 4 MG Nitroglycerin (Nitrostat Tab) 0.4 mg UD PRN SL 10/02/17 21:00 11/01/17 20:59 Ferrous Sulfate (Feosol Tab) 325 mg BID PO 10/03/17 09:00 11/02/17 08:59 10/29/17 08:02 325 MG Salmeterol Xinafoate/ Fluticasone (Advair Diskus 250/50 Inh) 1 puff BID INH 10/03/17 09:00 11/02/17 08:59 10/29/17 07:59 1 PUFF Gabapentin (Neurontin Cap) 100 mg DAILY PO 10/03/17 09:00 11/02/17 08:59 10/29/17 07:59 100 MG Lactobacillus Acidophilus (Floranex Tab) 1 tab TIDM PO 10/03/17 07:30 11/02/17 07:29 10/29/17 17:51 1 TAB Lorazepam (Ativan Tab) 0.5 mg HS PRN PO 10/02/17 21:15 11/01/17 21:14 10/28/17 23:35 0.5 MG Magnesium Oxide (Mag-Ox Tab) 400 mg DAILY PO 10/03/17 09:00 11/02/17 08:59 10/29/17 08:01 400 MG Metoprolol Succinate (Toprol Xl Tab) 12.5 mg BID PO 10/03/17 09:00 11/02/17 08:59 10/29/17 07:58 12.5 MG Mirtazapine (Remeron Solutab) 15 mg HS PO 10/03/17 21:00 11/02/17 20:59 10/28/17 21:00 15 MG Paroxetine HCl (pAXil TAB) 40 mg DAILY PO 10/03/17 09:00 11/02/17 08:59 10/29/17 08:02 40 MG Ranitidine HCl (zANTac TAB) 300 mg HS PO 10/03/17 21:00 11/02/17 20:59 10/28/17 21:00 300 MG Sucralfate (Carafate Susp) 1 gm QID PO 10/03/17 17:00 11/02/17 16:59 10/29/17 17:51 1 GM Lidocaine (Lidoderm Patch 5%) 1 patch QAM TD 10/05/17 09:00 11/04/17 08:59 10/29/17 07:57 1 PATCH Miscellaneous (Remove Lidoderm Patch) 1 ea DAILY@21 N/A 10/04/17 21:00 11/03/17 20:59 10/28/17 21:00 1 EA Pantoprazole Sodium (Protonix Tab) 40 mg BID PO 10/05/17 21:00 11/04/17 20:59 10/29/17 08:04 40 MG Ipratropium [place] (Atrovent 0.02% 0.5MG/2.5ML Neb) 0.5 mg Q2R PRN INH 10/08/17 08:00 11/07/17 07:59 10/21/17 05:34 0.5 MG Levalbuterol (Xopenex 1.25MG/ 0.5ML Neb) 1.25 mg Q2R PRN INH 10/08/17 08:00 11/07/17 07:59 10/21/17 05:34 1.25 MG Ipratropium [place] (Atrovent 0.02% 0.5MG/2.5ML Neb) 0.5 mg Q4R INH 10/08/17 20:00 11/07/17 19:59 10/29/17 14:30 0.5 MG Levalbuterol (Xopenex 1.25MG/ 0.5ML Neb) 1.25 mg Q4R INH 10/08/17 20:00 11/07/17 19:59 10/29/17 14:30 1.25 MG Heparin Sodium (Porcine) (Heparin 10 Unit/ ml 5 ml Flush) 5 ml PRN PRN FLUSH 10/10/17 13:30 11/09/17 13:29 10/25/17 11:26 5 ML Furosemide (Lasix Tab) 40 mg QAM PO 10/11/17 09:00 11/10/17 08:59 10/29/17 08:01 40 MG Acetaminophen 100 ml @ 400 mls/hr Q8H PRN IV 10/10/17 18:15 11/09/17 18:14 10/10/17 18:20 400 MLS/HR Guaifenesin (Mucinex Contr Rel Tab) 600 mg Q12 PO 10/11/17 21:00 11/10/17 20:59 10/29/17 08:00 600 MG Polyethylene (Miralax Powder Packet) 17 gm DAILY PO 10/14/17 09:00 11/01/17 20:59 10/29/17 07:57 17 GM Senna/Docusate Sodium (Senokot S Tab) 1 tab QAM PO 10/14/17 09:00 11/13/17 08:59 10/29/17 07:59 1 TAB Senna (Senokot Tab) 8.6 mg QPM PO 10/13/17 21:00 11/12/17 20:59 10/28/17 08:13 8.6 MG Bisacodyl (Dulcolax Tab) 5 mg BID PRN PO 10/13/17 17:45 11/12/17 17:44 Oxycodone/ Acetaminophen (Percocet 5-325mg Tab) pain not relieved by tylenol Q4H PRN PO 10/17/17 06:30 10/31/17 06:29 10/29/17 18:05 2 TAB Aspirin (Ecotrin Tab) 81 mg QAM PO 10/18/17 16:00 11/17/17 15:59 Future Hold 10/21/17 08:21 81 MG Benzocaine (Orajel 20% Oral Gel) 1 appln QID PRN MT 10/18/17 18:00 11/17/17 17:59 Fentanyl (Duragesic Patch) 12 mcg Q72H TD 10/21/17 13:30 11/04/17 13:29 10/27/17 14:20 12 MCG Miscellaneous (Fentanyl Patch Remove & Waste) 1 ea Q3D N/A 10/24/17 13:29 11/23/17 13:28 10/27/17 13:29 1 EA Miscellaneous Information (Check Fentanyl Patch Placement) 1 ea QS N/A 10/21/17 16:00 11/20/17 15:59 10/29/17 17:52 1 EA Menthol (Nice Jonnie) 1 jonnie PRN PRN JONNIE 10/22/17 23:15 11/21/17 23:14 Prednisone (PredniSONE TAB) 20 mg DAILY PO 10/25/17 09:00 11/24/17 08:59 10/29/17 07:59 20 MG Ioversol (Optiray 320) 100 ml UD PRN IV 10/26/17 12:30 10/30/17 12:29 Heparin Sodium/ Dextrose 500 ml @ 12 mls/hr Q24H IV 10/26/17 15:30 11/25/17 15:29 10/28/17 07:45 10 MLS/HR Morphine Sulfate (MoRPHine SULFATE INJ) 0.5 mg Q1H PRN IV 10/27/17 09:00 11/10/17 08:59 Enteral Nutritional Formula (Boost Breeze Nutritional Drink) 1 box [id number] PO 10/29/17 07:00 11/28/17 06:59 10/29/17 08:00 1 BOX
[2017-10-29] MEDS: LORAZEPAM 0.5 MG TAB PO PRN (20:53)
[2017-10-29] MEDS: SENNA 8.6 MG TAB PO SCH (20:54)
[2017-10-29 21:06] LABS: PTT PATIENT 67.6 SECONDS (21.0-31.0)
[2017-10-29] MEDS: HEPARIN 25,000 UNIT/500ML D5W 500 ML IV SCH (21:53)
[2017-10-30] VITALS (14 sets, daily range): BP systolic 115–194; BP diastolic 66–102; PULSE 68–86; TEMP 36.3–36.7; O2SAT 95–100
[2017-10-30] MEDS: IPRATROPIUM BROMIDE NEB SOLN 0.02% 2.5 ML VIAL INH SCH ×6 (03:11→23:19)
[2017-10-30] MEDS: LEVALBUTEROL 1.25MG/0.5ML NEB INH SCH ×6 (03:11→23:19)
[2017-10-30 06:08] LABS: HEMOGLOBIN 10.1 g/dL (12.0-16.0); MEAN CELL VOLUME 93.8 fL (80-100); MEAN CORPUSCULAR HEMOGLOBIN 29.6 pg (25-34); MEAN CORPUSCULAR HGB CONC 31.6 g/dl (32-36); MEAN PLATELET VOLUME 9.9 fL (7.4-10.4); PLATELET COUNT 263 K/uL (130-400); RED CELL DISTRIBUTION WIDTH CV 16.6 % (11.5-14.5); RED CELL DISTRIBUTION WIDTH SD 57.2 fL (36.4-46.3); WHITE BLOOD COUNT 11.85 K/uL (4.8-10.8)
[2017-10-30 06:26] LABS: PTT PATIENT 47.8 SECONDS (21.0-31.0)
[2017-10-30 06:39] LABS: CALCIUM 9.2 mg/dl (8.5-10.1); CREATININE 1.12 mg/dl (0.60-1.20); POTASSIUM 3.7 mmol/L (3.5-5.1)
[2017-10-30] MEDS: BOOST BREEZE NUTRITION DRINK 1 BOX PO SCH ×2 (07:00→13:51)
[2017-10-30] MEDS: LACTOBACILLUS ACIDOPHILUS (FLORANEX) TAB PO SCH ×3 (07:35→16:02)
[2017-10-30] MEDS: SUCRALFATE 1 GM/10 ML UDC PO SCH ×4 (07:35→20:48)
[2017-10-30] MEDS: FLUTICASONE/SALMETEROL 250/50 (ADVAIR) 14 PUFF/1 INHALER INH SCH ×2 (07:36→20:48)
[2017-10-30] MEDS: POLYETHYLENE (MIRALAX) 17 GM PACK PO SCH (07:36)
[2017-10-30] MEDS: PAROXETINE 20 MG TAB PO SCH (07:37)
[2017-10-30] MEDS: FUROSEMIDE 40 MG TAB PO SCH (07:39)
[2017-10-30] MEDS: MAGNESIUM OXIDE 400 MG TAB PO SCH (07:40)
[2017-10-30] MEDS: GUAIFENESIN 600 MG TABCR PO SCH ×2 (07:40→21:24)
[2017-10-30] MEDS: GABAPENTIN 100 MG CAP PO SCH (07:41)
[2017-10-30] MEDS: METOPROLOL SUCC 25MG EXT REL TAB PO SCH ×2 (07:43→20:54)
[2017-10-30] MEDS: PANTOprazole SOD 40 MG TAB PO SCH ×2 (07:43→20:52)
[2017-10-30] MEDS: FERROUS SULFATE 325 MG TAB PO SCH ×2 (07:44→21:24)
[2017-10-30] MEDS: LIDODERM (LIDOCAINE) PATCH 5% TD SCH (07:45)
[2017-10-30] MEDS: CHECK FENTANYL PATCH PLACEMENT SCH ×3 (07:51→16:02)
[2017-10-30] MEDS: OXYCODONE/ACETAMINOPHEN 5-325 TAB PO PRN ×3 (07:51→20:59)
[2017-10-30] MEDS: FENTANYL PATCH REMOVE & WASTE SCH (13:52)
[2017-10-30] MEDS: FENTANYL 12 MCG/HR TDSY TD SCH (13:55)
[2017-10-30] MEDS: SENNA 8.6 MG TAB PO SCH (20:52)
[2017-10-30] MEDS: RANITIDINE HCL 150 MG TAB PO SCH (20:53)
[2017-10-30] MEDS: MIRTAZAPINE SOLTAB 15 MG PO SCH (21:25)
--- NOTE | 2017-10-30 23:17 | Progress Note ---
Medicine Progress Note Date & Time of Visit: Oct 30, 2017 at 16:10 . Subjective Gradually improving. Dyspnea improved. No pleuritic chest pain. No cough. No anginal symptoms. Appetite fair. No nausea or vomiting. One loose stool this morning followed by a formed stool later in the day. Patient describes dark stools, no gross blood. Marcelo catheter removed yesterday. Voiding without difficulty. Chronic diffuse arthritic pain. Family visiting. . Objective Last 8 Hrs Date Time Temp Pulse Resp B/P (MAP) Pulse Ox O2 Delivery O2 Flow Rate FiO2 10/30/17 20:04 81 20 100 Nasal Cannula 3.0 10/30/17 20:00 96 Nasal Cannula 5.0 98 10/30/17 19:45 36.7 76 20 119/69 (86) 97 Nasal Cannula 3.0 10/30/17 16:00 95 Nasal Cannula 5.0 98 10/30/17 16:00 36.4 82 20 115/66 (82) 98 Nasal Cannula 3.0 Physical Exam: General- sitting in chair, no acute distress Lungs- few basilar rales, improved with deep inspirations; no respiratory distress Cardiovascular- RRR; no gallop appreciated; + JVD; trace pretibial edema Abdomen- + bowel sounds, soft, nontender Extremities- no cyanosis; no calf tenderness Neuro-alert Skin- warm & dry . Laboratory Results: Last 24 Hours Test 10/30/17 05:48 White Blood Count 11.85 K/uL Red Blood Count 3.41 M/uL Hemoglobin 10.1 g/dL Hematocrit 32.0 % Mean Corpuscular Volume 93.8 fL Mean Corpuscular Hemoglobin 29.6 pg Mean Corpuscular Hemoglobin Concent 31.6 g/dl RDW Standard Deviation 57.2 fL RDW Coefficient of Variation 16.6 % Platelet Count 263 K/uL Mean Platelet Volume 9.9 fL Activated Partial Thromboplast Time 47.8 SECONDS Partial Thromboplastin Ratio 1.8 Sodium Level 139 mmol/L Potassium Level 3.7 mmol/L Chloride Level 103 mmol/L Carbon Dioxide Level 31 mmol/L Anion Gap 4.0 mmol/L Blood Urea Nitrogen 29 mg/dl Creatinine 1.12 mg/dl Est Creatinine Clear Calc Drug Dose 30.5 ml/min Estimated GFR () 52.2 Estimated GFR (Non- 45.1 BUN/Creatinine Ratio 25.9 Random Glucose 79 mg/dl Calcium Level 9.2 mg/dl Assessment & Plan ACUTE PULMONARY EMBOLI Acute change of cardiopulmonary status on 10/26/17. CTA of chest demonstrated bilateral pulmonary emboli. Venous duplex of right upper extremity demonstrated basilic vein thrombosis. Venous duplex of left lower extremities demonstrated nonocclusive DVT in the right popliteal and right peroneal veins. Receiving IV heparin. Patient has history of recurrent/chronic GI bleeding transfusion dependent anemia as well as a recent episode of epistaxis. Nevertheless, benefits of anticoagulation outweigh the risks. Limited cardiopulmonary reserve. May be prudent to consider IVC filter realizing that there may be times where anticoagulation needs to be held or INR could be subtherapeutic. Discussed with patient and her son; discussed with Vascular Surgery. Possible IVC filter on Thursday if patient would like to proceed. ACUTE ON CHRONIC HYPOXIC RESPIRATORY FAILURE Chronic hypoxic respiratory failure. Worsening oxygenation early in hospital stay attributed to pneumonia. Subsequent worsening oxygenation after acute pulmonary embolism. Titrate supplemental oxygen. CHRONIC LEFT VENTRICULAR DIASTOLIC HEART FAILURE Appears to be compensated. HISTORY AORTIC STENOSIS S/P TAVR. ACUTE KIDNEY INJURY / CKD III History of chronic kidney disease stage III. Serum creatinine shaun from 1.17 to 1.94 with diuresis. Serum creatinine today = 1.12. Follow. ANEMIA Multifactorial. Chronic/recurrent GI bleeding with previous endoscopies. Anemia of chronic kidney disease. Hemoglobin this morning = 10.1. Transfuse PRN to maintain adequate H/H. POLYARTHRITIS Continue chronic prednisone therapy. VTE PROPHYLAXIS Received SQ heparin early in hospital stay. Now receiving IV heparin for acute pulmonary embolism. RESUSCITATION STATUS Full resuscitation. DISPOSITION To be determined. Patient hopes to be discharged to home with home health services; [facility] Internal medicine follow-up with Dr. Myrna Inman. . Current Inpatient Medications: Current Inpatient Medications Medications (Trade) Dose Ordered Sig/Rosi Route Start Time Stop Time Status Last Admin Dose Admin Al Hydrox/Mg Hydrox/Simethicone (Maalox Max Susp) 15 ml Q4H PRN PO 10/02/17 21:00 11/01/17 20:59 Magnesium Hydroxide (Milk Of Magnesia Susp) 30 ml Q12H PRN PO 10/02/17 21:00 11/01/17 20:59 Ondansetron HCl (Zofran Inj) 4 mg Q6H PRN IV 10/02/17 21:00 11/01/17 20:59 10/16/17 18:09 4 MG Nitroglycerin (Nitrostat Tab) 0.4 mg UD PRN SL 10/02/17 21:00 11/01/17 20:59 Ferrous Sulfate (Feosol Tab) 325 mg BID PO 10/03/17 09:00 11/02/17 08:59 10/30/17 21:24 325 MG Salmeterol Xinafoate/ Fluticasone (Advair Diskus 250/50 Inh) 1 puff BID INH 10/03/17 09:00 11/02/17 08:59 10/30/17 20:48 1 PUFF Gabapentin (Neurontin Cap) 100 mg DAILY PO 10/03/17 09:00 11/02/17 08:59 10/30/17 07:41 100 MG Lactobacillus Acidophilus (Floranex Tab) 1 tab TIDM PO 10/03/17 07:30 11/02/17 07:29 10/30/17 16:02 1 TAB Lorazepam (Ativan Tab) 0.5 mg HS PRN PO 10/02/17 21:15 11/01/17 21:14 10/29/17 20:53 0.5 MG Magnesium Oxide (Mag-Ox Tab) 400 mg DAILY PO 10/03/17 09:00 11/02/17 08:59 10/30/17 07:40 400 MG Metoprolol Succinate (Toprol Xl Tab) 12.5 mg BID PO 10/03/17 09:00 11/02/17 08:59 10/30/17 20:54 12.5 MG Mirtazapine (Remeron Solutab) 15 mg HS PO 10/03/17 21:00 11/02/17 20:59 10/30/17 21:25 15 MG Paroxetine HCl (pAXil TAB) 40 mg DAILY PO 10/03/17 09:00 11/02/17 08:59 10/30/17 07:37 40 MG Ranitidine HCl (zANTac TAB) 300 mg HS PO 10/03/17 21:00 11/02/17 20:59 10/30/17 20:53 300 MG Sucralfate (Carafate Susp) 1 gm QID PO 10/03/17 17:00 11/02/17 16:59 10/30/17 20:48 1 GM Lidocaine (Lidoderm Patch 5%) 1 patch QAM TD 10/05/17 09:00 11/04/17 08:59 10/29/17 07:57 1 PATCH Miscellaneous (Remove Lidoderm Patch) 1 ea DAILY@21 N/A 10/04/17 21:00 11/03/17 20:59 10/30/17 20:54 1 EA Pantoprazole Sodium (Protonix Tab) 40 mg BID PO 10/05/17 21:00 11/04/17 20:59 10/30/17 20:52 40 MG Ipratropium [place] (Atrovent 0.02% 0.5MG/2.5ML Neb) 0.5 mg Q2R PRN INH 10/08/17 08:00 11/07/17 07:59 10/21/17 05:34 0.5 MG Levalbuterol (Xopenex 1.25MG/ 0.5ML Neb) 1.25 mg Q2R PRN INH 10/08/17 08:00 11/07/17 07:59 10/21/17 05:34 1.25 MG Ipratropium [place] (Atrovent 0.02% 0.5MG/2.5ML Neb) 0.5 mg Q4R INH 10/08/17 20:00 11/07/17 19:59 10/30/17 20:04 0.5 MG Levalbuterol (Xopenex 1.25MG/ 0.5ML Neb) 1.25 mg Q4R INH 10/08/17 20:00 11/07/17 19:59 10/30/17 20:04 1.25 MG Heparin Sodium (Porcine) (Heparin 10 Unit/ ml 5 ml Flush) 5 ml PRN PRN FLUSH 10/10/17 13:30 11/09/17 13:29 10/25/17 11:26 5 ML Furosemide (Lasix Tab) 40 mg QAM PO 10/11/17 09:00 11/10/17 08:59 10/30/17 07:39 40 MG Acetaminophen 100 ml @ 400 mls/hr Q8H PRN IV 10/10/17 18:15 11/09/17 18:14 10/10/17 18:20 400 MLS/HR Guaifenesin (Mucinex Contr Rel Tab) 600 mg Q12 PO 10/11/17 21:00 11/10/17 20:59 10/30/17 21:24 600 MG Polyethylene (Miralax Powder Packet) 17 gm DAILY PO 10/14/17 09:00 11/01/17 20:59 10/29/17 07:57 17 GM Senna/Docusate Sodium (Senokot S Tab) 1 tab QAM PO 10/14/17 09:00 11/13/17 08:59 10/29/17 19:49 1 TAB Senna (Senokot Tab) 8.6 mg QPM PO 10/13/17 21:00 11/12/17 20:59 10/30/17 20:52 8.6 MG Bisacodyl (Dulcolax Tab) 5 mg BID PRN PO 10/13/17 17:45 11/12/17 17:44 Oxycodone/ Acetaminophen (Percocet 5-325mg Tab) pain not relieved by tylenol Q4H PRN PO 10/17/17 06:30 10/31/17 06:29 10/30/17 20:59 1 TAB Aspirin (Ecotrin Tab) 81 mg QAM PO 10/18/17 16:00 11/17/17 15:59 Future Hold 10/21/17 08:21 81 MG Benzocaine (Orajel 20% Oral Gel) 1 appln QID PRN MT 10/18/17 18:00 11/17/17 17:59 Fentanyl (Duragesic Patch) 12 mcg Q72H TD 10/21/17 13:30 11/04/17 13:29 10/30/17 13:55 12 MCG Miscellaneous (Fentanyl Patch Remove & Waste) 1 ea Q3D N/A 10/24/17 13:29 11/23/17 13:28 10/30/17 13:52 1 EA Miscellaneous Information (Check Fentanyl Patch Placement) 1 ea QS N/A 10/21/17 16:00 11/20/17 15:59 10/30/17 16:02 1 EA Menthol (Nice Jonnie) 1 jonnie PRN PRN JONNIE 10/22/17 23:15 11/21/17 23:14 Prednisone (PredniSONE TAB) 20 mg DAILY PO 10/25/17 09:00 11/24/17 08:59 10/30/17 07:34 20 MG Heparin Sodium/ Dextrose 500 ml @ 12 mls/hr Q24H IV 10/26/17 15:30 11/25/17 15:29 10/29/17 21:53 12 MLS/HR Morphine Sulfate (MoRPHine SULFATE INJ) 0.5 mg Q1H PRN IV 10/27/17 09:00 11/10/17 08:59 Enteral Nutritional Formula (Boost Breeze Nutritional Drink) 1 box [id number] PO 10/29/17 07:00 11/28/17 06:59 10/29/17 08:00 1 BOX
[2017-10-31] VITALS (12 sets, daily range): BP systolic 106–153; BP diastolic 56–83; PULSE 68–87; TEMP 36.2–37; O2SAT 94–99
[2017-10-31] MEDS: LEVALBUTEROL 1.25MG/0.5ML NEB INH SCH ×5 (03:41→19:23)
[2017-10-31] MEDS: IPRATROPIUM BROMIDE NEB SOLN 0.02% 2.5 ML VIAL INH SCH ×5 (03:41→19:23)
[2017-10-31] MEDS: BOOST BREEZE NUTRITION DRINK 1 BOX PO SCH ×2 (07:45→14:01)
[2017-10-31] MEDS: LACTOBACILLUS ACIDOPHILUS (FLORANEX) TAB PO SCH ×3 (07:46→15:50)
[2017-10-31] MEDS: CHECK FENTANYL PATCH PLACEMENT SCH ×4 (07:46→23:56)
[2017-10-31] MEDS: FLUTICASONE/SALMETEROL 250/50 (ADVAIR) 14 PUFF/1 INHALER INH SCH ×2 (07:46→20:28)
[2017-10-31] MEDS: GUAIFENESIN 600 MG TABCR PO SCH ×2 (07:47→21:23)
[2017-10-31] MEDS: SUCRALFATE 1 GM/10 ML UDC PO SCH ×4 (07:47→20:29)
[2017-10-31] MEDS: PANTOprazole SOD 40 MG TAB PO SCH ×2 (07:48→20:32)
[2017-10-31] MEDS: FERROUS SULFATE 325 MG TAB PO SCH ×2 (07:48→21:23)
[2017-10-31] MEDS: POLYETHYLENE (MIRALAX) 17 GM PACK PO SCH (07:48)
[2017-10-31] MEDS: METOPROLOL SUCC 25MG EXT REL TAB PO SCH ×2 (07:48→20:36)
[2017-10-31] MEDS: FUROSEMIDE 40 MG TAB PO SCH (07:49)
[2017-10-31] MEDS: DOCUSATE SODIUM/SENNA 50/8.6MG TAB PO SCH (07:49)
[2017-10-31] MEDS: GABAPENTIN 100 MG CAP PO SCH (07:50)
[2017-10-31] MEDS: MAGNESIUM OXIDE 400 MG TAB PO SCH (07:50)
[2017-10-31] MEDS: PAROXETINE 20 MG TAB PO SCH (07:50)
[2017-10-31 08:14] LABS: PTT PATIENT 45.2 SECONDS (21.0-31.0)
[2017-10-31] MEDS: MoRPHine SULFATE 2 MG/ML CARP IV PRN (09:04)
--- NOTE | 2017-10-31 09:28 | Medical Consult ---
Consultation Note Date of Service Oct 31, 2017. Consultation Note Chief Complaint Bilateral pulmonary embolism History of Present Illness The patient is a 82 year old female with multiple medical problems, who was admitted with epistaxis that stopped earlier this year. She was not a candidate for a filter at that time. She has been on anticoagulation since but is difficult to control. She is now admitted with new PE's and DVT. She was on coumadin at this time. Denies EPSTEIN, fever, chills, chest pain, SOB, abd pain, N/V, rest pain, claudication, other complaints. Allergies Coded Allergies: Cefdinir (Verified Allergy, Mild, RASH-HAS HAD ROCEPHIN,CEFEPIME MANY TIMES, 09/21/17) Clonazepam (Verified Allergy, Unknown, ., 09/21/17) Levofloxacin (Verified Allergy, Unknown, unknown, 09/21/17) Sulfasalazine (Verified Allergy, Unknown, ., 09/21/17) Metoclopramide (Verified Adverse Reaction, Intermediate, TREMORS, 09/21/17) Home Medications Scheduled Ascorbic Acid (Ascorbic Acid), 250 MG PO DAILY Ciprofloxacin (Cipro), 250 MG PO BID Docusate Sodium (Colace), 1 CAP PO BID Fentanyl (Fentanyl), 25 MCG TOP [id number] Ferrous Sulfate (Ferrous Sulfate), 325 MG PO BID Fluticasone Prop/Salmeterol (Advair Diskus 250/50 60 Dose), 1 PUFF INH BID Furosemide (Lasix), 40 MG PO DAILY Gabapentin (Neurontin), 100 MG PO DAILY Home O2 Therapy (Oxygen), 2 LITERS NA UD Lactobacillus Acidophilus (Floranex), 1 TAB PO TIDM Magnesium Oxide (Mag-Ox), 400 MG PO DAILY Metoprolol Succinate (Metoprolol Succinate ER), 12.5 MG PO BID Mirtazapine Soltab (Remeron Soltab), 15 MG PO HS Multiple Vitamin (Multivitamin), 0.5 TABLET PO DAILY Pantoprazole (Protonix), 40 MG PO DAILY Paroxetine (Paroxetine HCl), 40 MG PO DAILY Potassium Chloride (Potassium Chloride Er), 10 MEQ PO BID Senna (Senokot), 1 TAB PO BID Triamcinolone Acetonide (Nasal (Nasacort Allergy 24Hr), 2 SPRAYS KELLY DAILY Warfarin Sod (Jantoven), Unknown Dose PO DAILY Scheduled PRN Acetaminophen (Acetaminophen), 650 MG PO for Pain Albuterol Sulf (Proventil 0.083% 2.5MG/3ML), 2.5 MG INH QID PRN for SOB/Wheezing Lorazepam (Lorazepam), 0.5 MG PO HS PRN for Insomnia Ondansetron Hcl (Zofran), 4 MG PO Q6 PRN for Nausea Oxycodone/Acetaminophen 5MG/325MG (Percocet 5MG/325MG), 1 TABLET PO Q8H PRN for Pain Polyethylene (Miralax), 17 GM PO DAILY PRN for Constipation Problem List Medical Problems: (1) Anemia (2) Angiectasia (3) Aortic stenosis (4) Basal cell carcinoma (5) Benign hypertension (6) CAD (coronary artery disease) (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 (8) CKD (chronic kidney disease) stage 3, GFR 30-59 ml/min (9) Depression (10) Diverticulosis Colon (W/O Ment Of Hemorrhage) (11) Dyslipidemia (12) Epistaxis (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 (14) Falls (15) Gastroparesis (16) GERD (gastroesophageal reflux disease) (17) Hiatal hernia (18) History of acute minda lesion (19) History of endometrial cancer (20) History of GI bleed (21) History of pulmonary embolism (22) IBS (irritable bowel syndrome) (23) Obstructive lung disease (24) Osteoporosis (25) Polyarthritis (26) Recurrent UTI (27) Temporal arteritis Surgical Problems: (1) Hx of cystoscopy (2) S/P left knee arthroscopy (3) S/P TAVR (transcatheter aortic valve replacement) (4) Status post cataract extraction (5) Status post coronary artery stent placement (6) Status post hysterectomy Surgical / Medical History Hx Cardiac Surgery: Yes (aortic valve replacement, stents) Hx Abdominal Surgery: No Hx Cancer Surgery: Yes (endmetrial, basal cell) Hx Thoracic Surgery: No Hx Orthopedic: Yes (left knee) Hx Urinary Tract Surgery: Yes (cystoscopy) Past Medical/Surgical History: Hypertension, Kidney Disease, Pulmonary Emboli, Valve Replacement Family History Cancer Diabetes mellitus FH: cardiovascular disease MOTHER Gallbladder disease Hypertension Cancer Diabetes mellitus FH: cardiovascular disease MOTHER Gallbladder disease Hypertension Social History Smoking Status: Never Smoker Hx Tobacco Use In Past Year?: No Hx Alcohol Use - Type & Amnt: No Hx Substance Use -Type & Amnt: No Review of Systems Constitutional: + malaise (chronic), No chills, No fever Skin: No change in color Eyes: No visual changes ENMT: No sore throat Respiratory: No cough, No LEONE, No hemoptysis, No short of breath Cardiovascular: No chest pain, No syncope, No edema, No intermittent claudication Gastrointestinal: No abdominal pain, No nausea, No vomiting Genitourinary - Female: No dysuria, No hematuria Neurologic: No dizziness, No headache, No numbness, No tingling Physical Exam Constitutional: General Apperance: well-nourished, well-developed Level of Distress: NAD, chronically ill Psychiatric: Mental Status: active & alert, normal mood, normal affect Orientation: oriented except where noted, to time, to place, to person Memory: recent memory normal, remote memory normal Head: normocephalic, atraumatic Eyes: EOM: EOMI ENMT: normal ENT inspection, hearing grossly normal Neck: supple, trachea midline Lungs: Respiratory effort: no dyspnea Auscultation: no rales/crackles, no rhonchi Cardiovascular: Apical Impulse: not displaced Heart Auscultation: RRR, no rubs, no gallops Peripheral Pulses: Pulses: full and equal, in all extremities except if noted Bruits: none appreciated Carotid Pulse: normal on the left, normal on the right Brachial Pulses: normal on the left, normal on the right Radial Pulse: normal on the left, normal on the right Femoral Pulse: normal on the left, normal on the right Posterior Tibialis Pulse: decreased on the left, decreased on the right Dorsalis Pedis Pulse: decreased on the left, decreased on the right Abdomen: Bowel Sounds: normal Inspection & Palpation: soft, non-distended, no tenderness, guarding & rebound Musculoskeletal: normal strength (5/5 throughout), normal tone Extremities: Upper Right: no cyanosis, no edema, no varicosities Upper Left: no cyanosis, no edema, no varicosities Lower Right: no cyanosis, no edema, no varicosities Lower Left: no cyanosis, no edema, no varicosities Neurologic: Cranial Nerves: grossly intact Sensation: grossly intact Assessment and Plan Imp: PE bilateral DVT Chronic anemia with probable GI cause Plan: Would recommend insertion of IVC filter at this time. I have discussed the risks options and benefits of the procedure with the patient. The patient understands the risks options and benefits and agrees to the procedure. We will place it Thursday AM Thank you very much for letting me participate in the care of this patient.
[2017-10-31] MEDS: OXYCODONE/ACETAMINOPHEN 5-325 TAB PO PRN ×2 (10:25→20:27)
[2017-10-31] MEDS: HEPARIN 25,000 UNIT/500ML D5W 500 ML IV SCH (15:23)
[2017-10-31] MEDS: IPRATROPIUM BROMIDE NEB SOLN 0.02% 2.5 ML VIAL INH PRN (17:30)
[2017-10-31] MEDS: LEVALBUTEROL 1.25MG/0.5ML NEB INH PRN (17:30)
--- NOTE | 2017-10-31 17:55 | Progress Note ---
Medicine Progress Note Date & Time of Visit: Oct 31, 2017 at 15:30 . Subjective Fatigued. No fever. Minimal cough. Dyspnea improved. No pleuritic chest pain or angina. Appetite fair; no nausea or vomiting. Constipated. Urinary frequency without dysuria. Ongoing/chronic severe arthritis pain. . Objective Last 8 Hrs Date Time Temp Pulse Resp B/P (MAP) Pulse Ox O2 Delivery O2 Flow Rate FiO2 10/31/17 17:30 79 20 98 Nasal Cannula 3.0 10/31/17 16:00 Nasal Cannula 3.0 10/31/17 15:36 36.3 78 16 106/56 (73) 95 Nasal Cannula 3.0 10/31/17 12:00 Nasal Cannula 3.0 10/31/17 11:27 36.6 79 20 135/83 (100) 99 Nasal Cannula 3.0 10/31/17 11:22 84 20 94 Nasal Cannula 3.0 Physical Exam: General- lying in bed, no acute distress Lungs- few basilar rales, coarser on left; no respiratory distress Cardiovascular- RRR; II/ systolic murmur at base; no gallop appreciated; + JVD ; trace pretibial edema Abdomen- + bowel sounds, distended, soft, nontender Extremities- no cyanosis; no calf tenderness Neuro-alert Skin- warm & dry . Laboratory Results: Last 24 Hours Test 10/31/17 07:00 10/31/17 07:22 Bedside Glucose 78 mg/dl Activated Partial Thromboplast Time 45.2 SECONDS Partial Thromboplastin Ratio 1.7 Assessment & Plan ACUTE PULMONARY EMBOLI Acute change of cardiopulmonary status on 10/26/17. CTA of chest demonstrated bilateral pulmonary emboli. Venous duplex of right upper extremity demonstrated basilic vein thrombosis. Venous duplex of left lower extremities demonstrated nonocclusive DVT in the right popliteal and right peroneal veins. Receiving IV heparin. Patient has history of recurrent/chronic GI bleeding transfusion dependent anemia as well as a recent episode of epistaxis. Nevertheless, benefits of anticoagulation outweigh the risks. Limited cardiopulmonary reserve. May be prudent to consider IVC filter realizing that there may be times where anticoagulation needs to be held or INR could be subtherapeutic. Discussed with patient and her son; discussed with Vascular Surgery. IVC filter anticipated on Thursday. ACUTE ON CHRONIC HYPOXIC RESPIRATORY FAILURE Chronic hypoxic respiratory failure. Worsening oxygenation early in hospital stay attributed to pneumonia. Subsequent worsening oxygenation after acute pulmonary embolism. Titrate supplemental oxygen. CHRONIC LEFT VENTRICULAR DIASTOLIC HEART FAILURE Appears to be compensated. Check follow-up chest x-ray tomorrow. HISTORY AORTIC STENOSIS S/P TAVR. ACUTE KIDNEY INJURY / CKD III History of chronic kidney disease stage III. Serum creatinine shaun from 1.17 to 1.94 with diuresis. Serum creatinine yesterday was 1.12. Follow. ANEMIA Multifactorial. Chronic/recurrent GI bleeding with previous endoscopies. Anemia of chronic kidney disease. Hemoglobin yesterday was 10.1. Transfuse PRN to maintain adequate H/H. POLYARTHRITIS Continue chronic prednisone therapy. CONSTIPATION Bowel regimen is ordered. VTE PROPHYLAXIS Received SQ heparin early in hospital stay. Now receiving IV heparin for acute pulmonary embolism. Transition to warfarin therapy once IVC filter placed. RESUSCITATION STATUS Full resuscitation. DISPOSITION To be determined. Patient hopes to be discharged to home with home health services; [facility] Internal medicine follow-up with Dr. Myrna Inman. . Current Inpatient Medications: Current Inpatient Medications Medications (Trade) Dose Ordered Sig/Rosi Route Start Time Stop Time Status Last Admin Dose Admin Al Hydrox/Mg Hydrox/Simethicone (Maalox Max Susp) 15 ml Q4H PRN PO 10/02/17 21:00 11/01/17 20:59 10/31/17 07:47 15 ML Magnesium Hydroxide (Milk Of Magnesia Susp) 30 ml Q12H PRN PO 10/02/17 21:00 11/01/17 20:59 Ondansetron HCl (Zofran Inj) 4 mg Q6H PRN IV 10/02/17 21:00 11/01/17 20:59 10/16/17 18:09 4 MG Nitroglycerin (Nitrostat Tab) 0.4 mg UD PRN SL 10/02/17 21:00 11/01/17 20:59 Ferrous Sulfate (Feosol Tab) 325 mg BID PO 10/03/17 09:00 11/02/17 08:59 10/31/17 07:48 325 MG Salmeterol Xinafoate/ Fluticasone (Advair Diskus 250/50 Inh) 1 puff BID INH 10/03/17 09:00 11/02/17 08:59 10/31/17 07:46 1 PUFF Gabapentin (Neurontin Cap) 100 mg DAILY PO 10/03/17 09:00 11/02/17 08:59 10/31/17 07:50 100 MG Lactobacillus Acidophilus (Floranex Tab) 1 tab TIDM PO 10/03/17 07:30 11/02/17 07:29 10/31/17 15:50 1 TAB Lorazepam (Ativan Tab) 0.5 mg HS PRN PO 10/02/17 21:15 11/01/17 21:14 10/29/17 20:53 0.5 MG Magnesium Oxide (Mag-Ox Tab) 400 mg DAILY PO 10/03/17 09:00 11/02/17 08:59 10/31/17 07:50 400 MG Metoprolol Succinate (Toprol Xl Tab) 12.5 mg BID PO 10/03/17 09:00 11/02/17 08:59 10/31/17 07:48 12.5 MG Mirtazapine (Remeron Solutab) 15 mg HS PO 10/03/17 21:00 11/02/17 20:59 10/30/17 21:25 15 MG Paroxetine HCl (pAXil TAB) 40 mg DAILY PO 10/03/17 09:00 11/02/17 08:59 10/31/17 07:50 40 MG Ranitidine HCl (zANTac TAB) 300 mg HS PO 10/03/17 21:00 11/02/17 20:59 10/30/17 20:53 300 MG Sucralfate (Carafate Susp) 1 gm QID PO 10/03/17 17:00 11/02/17 16:59 10/31/17 15:50 1 GM Pantoprazole Sodium (Protonix Tab) 40 mg BID PO 10/05/17 21:00 11/04/17 20:59 10/31/17 07:48 40 MG Ipratropium [place] (Atrovent 0.02% 0.5MG/2.5ML Neb) 0.5 mg Q2R PRN INH 10/08/17 08:00 11/07/17 07:59 10/31/17 17:30 0.5 MG Levalbuterol (Xopenex 1.25MG/ 0.5ML Neb) 1.25 mg Q2R PRN INH 10/08/17 08:00 11/07/17 07:59 10/31/17 17:30 1.25 MG Heparin Sodium (Porcine) (Heparin 10 Unit/ ml 5 ml Flush) 5 ml PRN PRN FLUSH 10/10/17 13:30 11/09/17 13:29 10/25/17 11:26 5 ML Furosemide (Lasix Tab) 40 mg QAM PO 10/11/17 09:00 11/10/17 08:59 10/31/17 07:49 40 MG Guaifenesin (Mucinex Contr Rel Tab) 600 mg Q12 PO 10/11/17 21:00 11/10/17 20:59 10/31/17 07:47 600 MG Polyethylene (Miralax Powder Packet) 17 gm DAILY PO 10/14/17 09:00 11/01/17 20:59 10/31/17 07:48 17 GM Senna/Docusate Sodium (Senokot S Tab) 1 tab QAM PO 10/14/17 09:00 11/13/17 08:59 10/31/17 07:49 1 TAB Senna (Senokot Tab) 8.6 mg QPM PO 10/13/17 21:00 11/12/17 20:59 10/30/17 20:52 8.6 MG Bisacodyl (Dulcolax Tab) 5 mg BID PRN PO 10/13/17 17:45 11/12/17 17:44 10/31/17 10:24 5 MG Aspirin (Ecotrin Tab) 81 mg QAM PO 10/18/17 16:00 11/17/17 15:59 Future Hold 10/21/17 08:21 81 MG Benzocaine (Orajel 20% Oral Gel) 1 appln QID PRN MT 10/18/17 18:00 11/17/17 17:59 Fentanyl (Duragesic Patch) 12 mcg Q72H TD 10/21/17 13:30 11/04/17 13:29 10/30/17 13:55 12 MCG Miscellaneous (Fentanyl Patch Remove & Waste) 1 ea Q3D N/A 10/24/17 13:29 11/23/17 13:28 10/30/17 13:52 1 EA Miscellaneous Information (Check Fentanyl Patch Placement) 1 ea QS N/A 10/21/17 16:00 11/20/17 15:59 10/31/17 15:50 1 EA Menthol (Nice Jonnie) 1 jonnie PRN PRN JONNIE 10/22/17 23:15 11/21/17 23:14 Prednisone (PredniSONE TAB) 20 mg DAILY PO 10/25/17 09:00 11/24/17 08:59 10/31/17 07:47 20 MG Heparin Sodium/ Dextrose 500 ml @ 12 mls/hr Q24H IV 10/26/17 15:30 11/25/17 15:29 10/31/17 15:23 12 MLS/HR Morphine Sulfate (MoRPHine SULFATE INJ) 0.5 mg Q1H PRN IV 10/27/17 09:00 11/10/17 08:59 10/31/17 09:04 0.5 MG Enteral Nutritional Formula (Boost Breeze Nutritional Drink) 1 box [id number] PO 10/29/17 07:00 11/28/17 06:59 10/31/17 14:01 1 BOX Ipratropium [place] (Atrovent 0.02% 0.5MG/2.5ML Neb) 0.5 mg QIDR INH 10/31/17 08:00 11/07/17 19:59 10/31/17 11:13 0.5 MG Levalbuterol (Xopenex 1.25MG/ 0.5ML Neb) 1.25 mg QIDR INH 10/31/17 08:00 11/07/17 19:59 10/31/17 11:13 1.25 MG Oxycodone/ Acetaminophen (Percocet 5-325mg Tab) 1 tab Q4H PRN PO 10/31/17 10:30 11/14/17 10:29 10/31/17 10:25 1 TAB Clindamycin Phosphate 54 ml @ 100 mls/hr PREOP IV 11/02/17 06:00 11/02/17 16:00
[2017-10-31] MEDS ORDERED: SOD PHOSPHATE/SOD BIPHOSPHATE ENEMA 132 ML BTL PR PRN (18:00)
[2017-10-31] MEDS ORDERED: BISACODYL 10 MG SUPP PR PRN (18:00)
[2017-10-31] MEDS: LORAZEPAM 0.5 MG TAB PO PRN (20:28)
[2017-10-31] MEDS: RANITIDINE HCL 150 MG TAB PO SCH (20:33)
[2017-10-31] MEDS: SENNA 8.6 MG TAB PO SCH (20:36)
[2017-10-31] MEDS: MIRTAZAPINE SOLTAB 15 MG PO SCH (21:24)
[2017-11-01] VITALS (13 sets, daily range): BP systolic 112–189; BP diastolic 65–93; PULSE 67–87; TEMP 36.4–36.6; O2SAT 95–99
[2017-11-01] MEDS: OXYCODONE/ACETAMINOPHEN 5-325 TAB PO PRN ×4 (05:51→23:44)
[2017-11-01 06:01] LABS: HEMATOCRIT 33.1 % (37-47); HEMOGLOBIN 10.4 g/dL (12.0-16.0); MEAN CELL VOLUME 93.8 fL (80-100); MEAN CORPUSCULAR HEMOGLOBIN 29.5 pg (25-34); MEAN CORPUSCULAR HGB CONC 31.4 g/dl (32-36); PLATELET COUNT 278 K/uL (130-400); RED CELL DISTRIBUTION WIDTH CV 16.6 % (11.5-14.5); RED CELL DISTRIBUTION WIDTH SD 56.7 fL (36.4-46.3); WHITE BLOOD COUNT 11.35 K/uL (4.8-10.8)
[2017-11-01 06:11] LABS: PTT PATIENT 42.3 SECONDS (21.0-31.0)
[2017-11-01 06:24] LABS: CALCIUM 9.4 mg/dl (8.5-10.1); CREATININE 1.07 mg/dl (0.60-1.20); POTASSIUM 3.2 mmol/L (3.5-5.1)
[2017-11-01] MEDS: BOOST BREEZE NUTRITION DRINK 1 BOX PO SCH ×2 (07:00→12:35)
[2017-11-01] MEDS: IPRATROPIUM BROMIDE NEB SOLN 0.02% 2.5 ML VIAL INH SCH ×4 (07:09→19:48)
[2017-11-01] MEDS: LEVALBUTEROL 1.25MG/0.5ML NEB INH SCH ×4 (07:09→19:48)
[2017-11-01] MEDS ORDERED: HEPARIN IV BOLUS 2,000 UNIT in SYRINGE 0 ML IV ONE ×2 (07:30→15:30)
[2017-11-01] MEDS: DOCUSATE SODIUM/SENNA 50/8.6MG TAB PO SCH (07:47)
[2017-11-01] MEDS: FERROUS SULFATE 325 MG TAB PO SCH ×2 (07:47→19:50)
[2017-11-01] MEDS: GUAIFENESIN 600 MG TABCR PO SCH ×2 (07:47→19:50)
[2017-11-01] MEDS: LACTOBACILLUS ACIDOPHILUS (FLORANEX) TAB PO SCH ×3 (07:47→16:24)
[2017-11-01] MEDS: SUCRALFATE 1 GM/10 ML UDC PO SCH ×4 (07:47→19:49)
[2017-11-01] MEDS: FLUTICASONE/SALMETEROL 250/50 (ADVAIR) 14 PUFF/1 INHALER INH SCH ×2 (07:48→19:49)
[2017-11-01] MEDS: POLYETHYLENE (MIRALAX) 17 GM PACK PO SCH (07:48)
[2017-11-01] MEDS: PANTOprazole SOD 40 MG TAB PO SCH ×2 (07:49→19:51)
[2017-11-01] MEDS: SENNA 8.6 MG TAB PO SCH (07:49)
[2017-11-01] MEDS: FUROSEMIDE 40 MG TAB PO SCH (07:51)
[2017-11-01] MEDS: RANITIDINE HCL 150 MG TAB PO SCH (07:51)
[2017-11-01] MEDS: GABAPENTIN 100 MG CAP PO SCH (07:51)
[2017-11-01] MEDS: MAGNESIUM OXIDE 400 MG TAB PO SCH (07:51)
[2017-11-01] MEDS: PAROXETINE 20 MG TAB PO SCH (07:52)
[2017-11-01] MEDS: METOPROLOL SUCC 25MG EXT REL TAB PO SCH ×2 (07:55→19:54)
[2017-11-01] MEDS: HEPARIN 25,000 UNIT/500ML D5W 500 ML IV SCH (07:59)
--- NOTE | 2017-11-01 07:59 | DIAGNOSTIC IMAGING REPORT ---
SINGLE VIEW CHEST CLINICAL HISTORY: Follow-up congestive heart failure. FINDINGS: An AP, portable, upright chest radiograph is compared to chest x-ray dated 10/28/2017 and correlated with chest CT dated 10/26/2017. The examination is degraded by portable technique and patient rotation. A left-sided PICC line is unchanged in position. The heart is mildly enlarged and there is atherosclerotic calcification of the thoracic aorta. There is prominence of the pulmonary vasculature. There is a large hiatal hernia. Stent material projects over the heart. Patchy airspace consolidation is noted at both lung bases. Small pleural effusions are identified. There is no pneumothorax. The skeletal structures are osteopenic. There are healed bilateral rib fractures. Degenerative change and scoliosis are noted in the thoracic spine. IMPRESSION: 1. Small pleural effusions and bibasilar airspace opacities are similar to previous. 2. Cardiomegaly. Mild pulmonary vascular congestion is suggested. Correlated clinically for evidence of congestive failure. Electronically signed by: Williams Irizarry M.D. 11/01/2017 7:58 AM Dictated Date/Time: 11/01/2017 7:56 AM
[2017-11-01] MEDS: CHECK FENTANYL PATCH PLACEMENT SCH ×2 (08:00→16:24)
[2017-11-01] MEDS: POTASSIUM CHLORIDE 20 MEQ TABCR PO SCH ×2 (09:24→16:31)
[2017-11-01] MEDS ORDERED: POTASSIUM CHLORIDE 20 MEQ TABCR PO ONE (13:00)
[2017-11-01] MEDS ORDERED: FUROSEMIDE INJ 40 MG in SYRINGE 0 ML IV ONE (14:00)
[2017-11-01 14:51] LABS: PTT PATIENT 43.9 SECONDS (21.0-31.0)
[2017-11-01] MEDS: LORAZEPAM 0.5 MG TAB PO PRN (19:46)
[2017-11-01] MEDS: MIRTAZAPINE SOLTAB 15 MG PO SCH (19:52)
--- NOTE | 2017-11-01 21:08 | Progress Note ---
Medicine Progress Note Date & Time of Visit: Nov 01, 2017 at 10:30 . Subjective Newly noted foul-smelling urine without dysuria. No fever. Occasional nonproductive cough. No chest pain. Appetite fair. No nausea or vomiting. No diarrhea. . Objective Last 8 Hrs Date Time Temp Pulse Resp B/P (MAP) Pulse Ox O2 Delivery O2 Flow Rate FiO2 11/01/17 19:55 36.4 87 16 120/69 (86) 96 Nasal Cannula 2.0 11/01/17 19:48 80 20 95 Nasal Cannula 2.0 11/01/17 16:00 Nasal Cannula 2.0 11/01/17 15:22 77 20 95 Nasal Cannula 2.0 11/01/17 15:17 36.5 76 16 120/65 (83) 95 Nasal Cannula 2.0 Physical Exam: General- lying in bed, no acute distress Lungs- bibasilar rales, coarser on left; no respiratory distress Cardiovascular- RRR; II/ systolic murmur at base; no gallop appreciated; + JVD ; trace pretibial edema Abdomen- + bowel sounds, distended, soft, nontender Extremities- no cyanosis; no calf tenderness Neuro-alert Skin- warm & dry . Laboratory Results: Last 24 Hours Test 11/01/17 05:26 11/01/17 10:00 11/01/17 14:13 White Blood Count 11.35 K/uL Red Blood Count 3.53 M/uL Hemoglobin 10.4 g/dL Hematocrit 33.1 % Mean Corpuscular Volume 93.8 fL Mean Corpuscular Hemoglobin 29.5 pg Mean Corpuscular Hemoglobin Concent 31.4 g/dl RDW Standard Deviation 56.7 fL RDW Coefficient of Variation 16.6 % Platelet Count 278 K/uL Mean Platelet Volume 10.0 fL Activated Partial Thromboplast Time 42.3 SECONDS 43.9 SECONDS Partial Thromboplastin Ratio 1.6 1.7 Sodium Level 142 mmol/L Potassium Level 3.2 mmol/L Chloride Level 105 mmol/L Carbon Dioxide Level 33 mmol/L Anion Gap 4.0 mmol/L Blood Urea Nitrogen 24 mg/dl Creatinine 1.07 mg/dl Est Creatinine Clear Calc Drug Dose 29.5 ml/min Estimated GFR () 55.2 Estimated GFR (Non- 47.6 BUN/Creatinine Ratio 22.1 Random Glucose 80 mg/dl Calcium Level 9.4 mg/dl Urine Color YELLOW Urine Appearance TURBID Urine pH 7.0 Urine Specific [place] 1.009 Urine Protein NEG Urine Glucose (UA) NEG Urine Ketones NEG Urine Occult Blood 2+ Urine Nitrite POS Urine Bilirubin NEG Urine Urobilinogen NEG Urine Leukocyte Esterase LARGE Urine WBC (Auto) >30 /hpf Urine RBC (Auto) 0-4 /hpf Urine Hyaline Casts (Auto) 1-5 /lpf Urine Epithelial Cells (Auto) 5-10 /lpf Urine Bacteria (Auto) 2+ Urine Yeast (Auto) Date/Time Source Procedure Growth Status 11/01/17 00:00 Urine , Clean Catch Urine Culture Pending Received Assessment & Plan ACUTE PULMONARY EMBOLI Acute change of cardiopulmonary status on 10/26/17. CTA of chest demonstrated bilateral pulmonary emboli. Venous duplex of right upper extremity demonstrated basilic vein thrombosis. Venous duplex of left lower extremities demonstrated nonocclusive DVT in the right popliteal and right peroneal veins. Receiving IV heparin. Patient has history of recurrent/chronic GI bleeding transfusion dependent anemia as well as a recent episode of epistaxis. Nevertheless, benefits of anticoagulation outweigh the risks. Limited cardiopulmonary reserve. May be prudent to consider IVC filter realizing that there may be times where anticoagulation needs to be held or INR could be subtherapeutic. Discussed with patient and her son; Vascular Surgery consulted. IVC filter anticipated tomorrow. ACUTE ON CHRONIC HYPOXIC RESPIRATORY FAILURE Chronic hypoxic respiratory failure. Worsening oxygenation early in hospital stay attributed to pneumonia. Subsequent worsening oxygenation after acute pulmonary embolism. Titrate supplemental oxygen. CHRONIC LEFT VENTRICULAR DIASTOLIC HEART FAILURE Today's chest x-ray shows some pulmonary vascular congestion. IV furosemide this afternoon. HISTORY AORTIC STENOSIS S/P TAVR. ACUTE KIDNEY INJURY / CKD III History of chronic kidney disease stage III. Serum creatinine shaun from 1.17 to 1.94 with diuresis. Serum creatinine today = 1.07. Follow. HYPOKALEMIA Serum potassium today = 3.2. Oral replacement. Follow. ANEMIA Multifactorial. Chronic/recurrent GI bleeding with previous endoscopies. Anemia of chronic kidney disease. Hemoglobin today = 10.4. Transfuse PRN to maintain adequate H/H. POLYARTHRITIS Continue chronic prednisone therapy. CONSTIPATION Bowel regimen is ordered. VTE PROPHYLAXIS Received SQ heparin early in hospital stay. Now receiving IV heparin for acute pulmonary embolism. Transition to warfarin therapy once IVC filter placed. RESUSCITATION STATUS Full resuscitation. DISPOSITION To be determined. Patient hopes to be discharged to home with home health services; family [facility] Internal medicine follow-up with Dr. Myrna Inman. . Current Inpatient Medications: Current Inpatient Medications Medications (Trade) Dose Ordered Sig/Rosi Route Start Time Stop Time Status Last Admin Dose Admin Ferrous Sulfate (Feosol Tab) 325 mg BID PO 10/03/17 09:00 11/02/17 08:59 11/01/17 19:50 325 MG Salmeterol Xinafoate/ Fluticasone (Advair Diskus 250/50 Inh) 1 puff BID INH 10/03/17 09:00 11/02/17 08:59 11/01/17 19:49 1 PUFF Gabapentin (Neurontin Cap) 100 mg DAILY PO 10/03/17 09:00 11/02/17 08:59 11/01/17 07:51 100 MG Lactobacillus Acidophilus (Floranex Tab) 1 tab TIDM PO 10/03/17 07:30 11/02/17 07:29 11/01/17 16:24 1 TAB Lorazepam (Ativan Tab) 0.5 mg HS PRN PO 10/02/17 21:15 11/01/17 21:14 11/01/17 19:46 0.5 MG Magnesium Oxide (Mag-Ox Tab) 400 mg DAILY PO 10/03/17 09:00 11/02/17 08:59 11/01/17 07:51 400 MG Metoprolol Succinate (Toprol Xl Tab) 12.5 mg BID PO 10/03/17 09:00 11/02/17 08:59 11/01/17 19:54 12.5 MG Mirtazapine (Remeron Solutab) 15 mg HS PO 10/03/17 21:00 11/02/17 20:59 11/01/17 19:52 15 MG Paroxetine HCl (pAXil TAB) 40 mg DAILY PO 10/03/17 09:00 11/02/17 08:59 11/01/17 07:52 40 MG Ranitidine HCl (zANTac TAB) 300 mg HS PO 10/03/17 21:00 11/02/17 20:59 11/01/17 07:51 300 MG Sucralfate (Carafate Susp) 1 gm QID PO 10/03/17 17:00 11/02/17 16:59 11/01/17 19:49 1 GM Pantoprazole Sodium (Protonix Tab) 40 mg BID PO 10/05/17 21:00 11/04/17 20:59 11/01/17 19:51 40 MG Ipratropium [place] (Atrovent 0.02% 0.5MG/2.5ML Neb) 0.5 mg Q2R PRN INH 10/08/17 08:00 11/07/17 07:59 10/31/17 17:30 0.5 MG Levalbuterol (Xopenex 1.25MG/ 0.5ML Neb) 1.25 mg Q2R PRN INH 10/08/17 08:00 11/07/17 07:59 10/31/17 17:30 1.25 MG Heparin Sodium (Porcine) (Heparin 10 Unit/ ml 5 ml Flush) 5 ml PRN PRN FLUSH 10/10/17 13:30 11/09/17 13:29 10/25/17 11:26 5 ML Furosemide (Lasix Tab) 40 mg QAM PO 10/11/17 09:00 11/10/17 08:59 11/01/17 07:51 40 MG Guaifenesin (Mucinex Contr Rel Tab) 600 mg Q12 PO 10/11/17 21:00 11/10/17 20:59 11/01/17 19:50 600 MG Senna/Docusate Sodium (Senokot S Tab) 1 tab QAM PO 10/14/17 09:00 11/13/17 08:59 11/01/17 07:47 1 TAB Senna (Senokot Tab) 8.6 mg QPM PO 10/13/17 21:00 11/12/17 20:59 11/01/17 07:49 8.6 MG Bisacodyl (Dulcolax Tab) 5 mg BID PRN PO 10/13/17 17:45 11/12/17 17:44 10/31/17 10:24 5 MG Aspirin (Ecotrin Tab) 81 mg QAM PO 10/18/17 16:00 11/17/17 15:59 Future Hold 10/21/17 08:21 81 MG Benzocaine (Orajel 20% Oral Gel) 1 appln QID PRN [place] 10/18/17 18:00 11/17/17 17:59 Fentanyl (Duragesic Patch) 12 mcg Q72H TD 10/21/17 13:30 11/04/17 13:29 10/30/17 13:55 12 MCG Miscellaneous (Fentanyl Patch Remove & Waste) 1 ea Q3D N/A 10/24/17 13:29 11/23/17 13:28 10/30/17 13:52 1 EA Miscellaneous Information (Check Fentanyl Patch Placement) 1 ea QS N/A 10/21/17 16:00 11/20/17 15:59 11/01/17 16:24 1 EA Menthol (Nice Jonnie) 1 jonnie PRN PRN JONNIE 10/22/17 23:15 11/21/17 23:14 Prednisone (PredniSONE TAB) 20 mg DAILY PO 10/25/17 09:00 11/24/17 08:59 11/01/17 07:48 20 MG Heparin Sodium/ Dextrose 500 ml @ 14 mls/hr Q24H IV 10/26/17 15:30 11/25/17 15:29 11/01/17 07:59 13 MLS/HR Morphine Sulfate (MoRPHine SULFATE INJ) 0.5 mg Q1H PRN IV 10/27/17 09:00 11/10/17 08:59 10/31/17 09:04 0.5 MG Enteral Nutritional Formula (Boost Breeze Nutritional Drink) 1 box [id number] PO 10/29/17 07:00 11/28/17 06:59 10/31/17 14:01 1 BOX Ipratropium [place] (Atrovent 0.02% 0.5MG/2.5ML Neb) 0.5 mg QIDR INH 10/31/17 08:00 11/07/17 19:59 11/01/17 19:48 0.5 MG Levalbuterol (Xopenex 1.25MG/ 0.5ML Neb) 1.25 mg QIDR INH 10/31/17 08:00 11/07/17 19:59 11/01/17 19:48 1.25 MG Oxycodone/ Acetaminophen (Percocet 5-325mg Tab) 1 tab Q4H PRN PO 10/31/17 10:30 11/14/17 10:29 11/01/17 17:32 1 TAB Clindamycin Phosphate 54 ml @ 100 mls/hr PREOP IV 11/02/17 06:00 11/02/17 16:00 Bisacodyl (Dulcolax Supp) 10 mg DAILY PRN [place] 10/31/17 18:00 11/30/17 17:59 Sodium Biphosphate/ Sodium Phosphate (Fleet Enema) 132 ml DAILY PRN [place] 10/31/17 18:00 11/30/17 17:59 Potassium Chloride (Klor-Con Tab) 20 meq BIDM PO 11/01/17 09:00 12/01/17 08:59 11/01/17 16:31 20 MEQ
[2017-11-01 22:12] LABS: PTT PATIENT 60.7 SECONDS (21.0-31.0)
[2017-11-01] MEDS: CEFTRIAXONE SOD INJ 1 GM in DEXTROSE 5% ADD-VANTAGE 50ML 50 ML IV SCH (22:29)
[2017-11-02] VITALS (18 sets, daily range): BP systolic 101–152; BP diastolic 61–83; PULSE 65–88; TEMP 36.3–36.8; O2SAT 92–98
[2017-11-02] MEDS: CHECK FENTANYL PATCH PLACEMENT SCH ×4 (00:37→23:37)
[2017-11-02] MEDS: MoRPHine SULFATE 2 MG/ML CARP IV PRN (05:08)
[2017-11-02 05:14] LABS: HEMATOCRIT 33.1 % (37-47); HEMOGLOBIN 10.3 g/dL (12.0-16.0)
[2017-11-02 05:44] LABS: PTT PATIENT 56.5 SECONDS (21.0-31.0)
[2017-11-02] MEDS ORDERED: METOPROLOL SUCC 25MG EXT REL TAB PO ONE (05:47)
[2017-11-02 05:50] LABS: CALCIUM 9.6 mg/dl (8.5-10.1); CREATININE 1.1 mg/dl (0.60-1.20); POTASSIUM 3.9 mmol/L (3.5-5.1)
[2017-11-02] MEDS ORDERED: CLINDAMYCIN IV 600 MG in DEXTROSE 5% 50ML 50 ML IV SCH (06:00)
[2017-11-02] MEDS ORDERED: CLINDAMYCIN 600 MG/54 ML D5W IV SCH (06:00)
[2017-11-02] MEDS: BOOST BREEZE NUTRITION DRINK 1 BOX PO SCH ×2 (07:00→13:59)
[2017-11-02] MEDS: IPRATROPIUM BROMIDE NEB SOLN 0.02% 2.5 ML VIAL INH SCH ×4 (07:03→20:23)
[2017-11-02] MEDS: LEVALBUTEROL 1.25MG/0.5ML NEB INH SCH ×4 (07:04→20:23)
[2017-11-02 07:19] LABS: ALBUMIN 2.1 gm/dl (3.4-5.0); ALKALINE PHOSPHATASE 108 U/L (45-117); ALT/SGPT 60 U/L (12-78); AST/SGOT 34 U/L (15-37); LIPASE 87 U/L (73-393); TOTAL PROTEIN 5.9 gm/dl (6.4-8.2)
--- NOTE | 2017-11-02 08:51 | Progress Note ---
Medicine Progress Note Date & Time of Visit: Nov 02, 2017 at 08:42 . Subjective Episode of right-sided chest pain this morning around 05:30. Chest pain not pleuritic in nature. No associated cough. O2 sats and vital signs were stable. No EKG changes. Pain relieved by intravenous morphine. Schedule for IVC filter this morning. No nausea or vomiting. No fever. . Objective Last 8 Hrs Date Time Temp Pulse Resp B/P (MAP) Pulse Ox O2 Delivery O2 Flow Rate FiO2 11/02/17 07:04 76 18 98 Nasal Cannula 2.0 11/02/17 04:09 96 Nasal Cannula 3.0 98 11/02/17 03:58 36.7 65 16 152/81 (104) 96 Physical Exam: General- sitting on side of be, anxious, no acute distress Lungs- bibasilar rales, no respiratory distress Cardiovascular- RRR; II/ systolic murmur at base; no gallop appreciated; slight JVD; trace pretibial edema Abdomen- + bowel sounds, distended, soft, nontender Extremities- no cyanosis; no calf tenderness Neuro-alert Skin- warm & dry . Laboratory Results: Last 24 Hours Test 11/01/17 10:00 11/01/17 14:13 11/01/17 21:41 11/02/17 04:44 Urine Color YELLOW Urine Appearance TURBID Urine pH 7.0 Urine Specific [place] 1.009 Urine Protein NEG Urine Glucose (UA) NEG Urine Ketones NEG Urine Occult Blood 2+ Urine Nitrite POS Urine Bilirubin NEG Urine Urobilinogen NEG Urine Leukocyte Esterase LARGE Urine WBC (Auto) >30 /hpf Urine RBC (Auto) 0-4 /hpf Urine Hyaline Casts (Auto) 1-5 /lpf Urine Epithelial Cells (Auto) 5-10 /lpf Urine Bacteria (Auto) 2+ Urine Yeast (Auto) Activated Partial Thromboplast Time 43.9 SECONDS 60.7 SECONDS 56.5 SECONDS Partial Thromboplastin Ratio 1.7 2.3 2.2 Hemoglobin 10.3 g/dL Hematocrit 33.1 % Prothrombin Time 10.7 SECONDS Prothromb Time International Ratio 1.0 Sodium Level 139 mmol/L Potassium Level 3.9 mmol/L Chloride Level 102 mmol/L Carbon Dioxide Level 30 mmol/L Anion Gap 7.0 mmol/L Blood Urea Nitrogen 24 mg/dl Creatinine 1.10 mg/dl Est Creatinine Clear Calc Drug Dose 28.7 ml/min Estimated GFR () 53.4 Estimated GFR (Non- 46.1 BUN/Creatinine Ratio 22.1 Random Glucose 91 mg/dl Calcium Level 9.6 mg/dl Test 11/02/17 06:23 Total Bilirubin 0.3 mg/dl Direct Bilirubin < 0.1 mg/dl Aspartate Amino Transf (AST/SGOT) 34 U/L Alanine Aminotransferase (ALT/SGPT) 60 U/L Alkaline Phosphatase 108 U/L Troponin I 0.154 ng/ml Total Protein 5.9 gm/dl Albumin 2.1 gm/dl Lipase 87 U/L Diagnostic Imaging: EKG performed at 05:37 reviewed and demonstrated NSR at 70 / minute, poor R- wave progression, no acute ST or T-wave abnormalities. . Assessment & Plan ACUTE PULMONARY EMBOLI Acute change of cardiopulmonary status on 10/26/17. CTA of chest demonstrated bilateral pulmonary emboli. Venous duplex of right upper extremity demonstrated basilic vein thrombosis. Venous duplex of left lower extremities demonstrated nonocclusive DVT in the right popliteal and right peroneal veins. Receiving IV heparin. Patient has history of recurrent/chronic GI bleeding transfusion dependent anemia as well as a recent episode of epistaxis. Nevertheless, benefits of anticoagulation outweigh the risks. Limited cardiopulmonary reserve. May be prudent to consider IVC filter realizing that there may be times where anticoagulation needs to be held or INR could be subtherapeutic. Discussed with patient and her son; Vascular Surgery consulted. IVC filter today. Start warfarin after IVC filter placed. ACUTE ON CHRONIC HYPOXIC RESPIRATORY FAILURE Chronic hypoxic respiratory failure with nocturnal O2 at home. Worsening oxygenation early in hospital stay attributed to pneumonia. Subsequent worsening oxygenation after acute pulmonary embolism. Titrate supplemental oxygen. Weaned down to 2 L/minute. CORONARY ARTERY DISEASE Status post PCI RCA 2011. Chest pain this morning atypical for myocardial ischemia. Troponin elevated, but trending downward since PE. No acute EKG changes. Continue aspirin, metoprolol. CHRONIC LEFT VENTRICULAR DIASTOLIC HEART FAILURE Today's chest x-ray shows some pulmonary vascular congestion. Received IV furosemide yesterday. Continue furosemide 40 mg daily. HISTORY AORTIC STENOSIS S/P TAVR. ACUTE KIDNEY INJURY / CKD III History of chronic kidney disease stage III. Serum creatinine shaun from 1.17 to 1.94 with diuresis. Serum creatinine today = 1.10. Follow. HYPOKALEMIA Serum potassium today = 3.9. Oral replacement. Follow. ANEMIA Multifactorial. Chronic/recurrent GI bleeding with previous endoscopies. Anemia of chronic kidney disease. Hemoglobin today = 10.3. Transfuse PRN to maintain adequate H/H. POLYARTHRITIS Continue chronic prednisone therapy. CONSTIPATION Bowel regimen is ordered. UTI Noted to have foul-smelling urine yesterday; no fever or dysuria. UA showed pyuria and bacteruria. Receiving IV ceftriaxone pending culture results. VTE PROPHYLAXIS Received SQ heparin early in hospital stay. Now receiving IV heparin for acute pulmonary embolism. Transition to warfarin therapy once IVC filter placed. RESUSCITATION STATUS Full resuscitation. DISPOSITION Patient hopes to be discharged to home with home health services; [facility] Internal medicine follow-up with Dr. Myrna Inman. . Current Inpatient Medications: Current Inpatient Medications Medications (Trade) Dose Ordered Sig/Rosi Route Start Time Stop Time Status Last Admin Dose Admin Ferrous Sulfate (Feosol Tab) 325 mg BID PO 10/03/17 09:00 11/02/17 08:59 11/01/17 19:50 325 MG Salmeterol Xinafoate/ Fluticasone (Advair Diskus 250/50 Inh) 1 puff BID INH 10/03/17 09:00 11/02/17 08:59 11/01/17 19:49 1 PUFF Gabapentin (Neurontin Cap) 100 mg DAILY PO 10/03/17 09:00 11/02/17 08:59 11/01/17 07:51 100 MG Magnesium Oxide (Mag-Ox Tab) 400 mg DAILY PO 10/03/17 09:00 11/02/17 08:59 11/01/17 07:51 400 MG Mirtazapine (Remeron Solutab) 15 mg HS PO 10/03/17 21:00 11/02/17 20:59 11/01/17 19:52 15 MG Paroxetine HCl (pAXil TAB) 40 mg DAILY PO 10/03/17 09:00 11/02/17 08:59 11/01/17 07:52 40 MG Ranitidine HCl (zANTac TAB) 300 mg HS PO 10/03/17 21:00 11/02/17 20:59 11/01/17 07:51 300 MG Sucralfate (Carafate Susp) 1 gm QID PO 10/03/17 17:00 11/02/17 16:59 4/1/18 19:49 1 GM Pantoprazole Sodium (Protonix Tab) 40 mg BID PO 10/05/17 21:00 11/04/17 20:59 11/01/17 19:51 40 MG Ipratropium [place] (Atrovent 0.02% 0.5MG/2.5ML Neb) 0.5 mg Q2R PRN INH 10/08/17 08:00 11/07/17 07:59 10/31/17 17:30 0.5 MG Levalbuterol (Xopenex 1.25MG/ 0.5ML Neb) 1.25 mg Q2R PRN INH 10/08/17 08:00 11/07/17 07:59 10/31/17 17:30 1.25 MG Heparin Sodium (Porcine) (Heparin 10 Unit/ ml 5 ml Flush) 5 ml PRN PRN FLUSH 10/10/17 13:30 11/09/17 13:29 10/25/17 11:26 5 ML Furosemide (Lasix Tab) 40 mg QAM PO 10/11/17 09:00 11/10/17 08:59 11/01/17 07:51 40 MG Guaifenesin (Mucinex Contr Rel Tab) 600 mg Q12 PO 10/11/17 21:00 11/10/17 20:59 11/01/17 19:50 600 MG Senna/Docusate Sodium (Senokot S Tab) 1 tab QAM PO 10/14/17 09:00 11/13/17 08:59 11/01/17 07:47 1 TAB Senna (Senokot Tab) 8.6 mg QPM PO 10/13/17 21:00 11/12/17 20:59 11/01/17 07:49 8.6 MG Bisacodyl (Dulcolax Tab) 5 mg BID PRN PO 10/13/17 17:45 11/12/17 17:44 10/31/17 10:24 5 MG Aspirin (Ecotrin Tab) 81 mg QAM PO 10/18/17 16:00 11/17/17 15:59 Future Hold 10/21/17 08:21 81 MG Benzocaine (Orajel 20% Oral Gel) 1 appln QID PRN [place] 10/18/17 18:00 11/17/17 17:59 Fentanyl (Duragesic Patch) 12 mcg Q72H TD 10/21/17 13:30 11/04/17 13:29 10/30/17 13:55 12 MCG Miscellaneous (Fentanyl Patch Remove & Waste) 1 ea Q3D N/A 10/24/17 13:29 11/23/17 13:28 10/30/17 13:52 1 EA Miscellaneous Information (Check Fentanyl Patch Placement) 1 ea QS N/A 10/21/17 16:00 11/20/17 15:59 11/02/17 00:37 1 EA Menthol (Nice Jonnie) 1 jonnie PRN PRN JONNIE 10/22/17 23:15 11/21/17 23:14 Prednisone (PredniSONE TAB) 20 mg DAILY PO 10/25/17 09:00 11/24/17 08:59 11/01/17 07:48 20 MG Heparin Sodium/ Dextrose 500 ml @ 14 mls/hr Q24H IV 10/26/17 15:30 11/25/17 15:29 11/01/17 07:59 13 MLS/HR Morphine Sulfate (MoRPHine SULFATE INJ) 0.5 mg Q1H PRN IV 10/27/17 09:00 11/10/17 08:59 11/02/17 05:08 0.5 MG Enteral Nutritional Formula (Boost Breeze Nutritional Drink) 1 box [id number] PO 10/29/17 07:00 11/28/17 06:59 10/31/17 14:01 1 BOX Ipratropium [place] (Atrovent 0.02% 0.5MG/2.5ML Neb) 0.5 mg QIDR INH 10/31/17 08:00 11/07/17 19:59 11/02/17 07:03 0.5 MG Levalbuterol (Xopenex 1.25MG/ 0.5ML Neb) 1.25 mg QIDR INH 10/31/17 08:00 11/07/17 19:59 11/02/17 07:04 1.25 MG Oxycodone/ Acetaminophen (Percocet 5-325mg Tab) 1 tab Q4H PRN PO 10/31/17 10:30 11/14/17 10:29 11/01/17 23:44 1 TAB Clindamycin Phosphate 54 ml @ 100 mls/hr PREOP IV 11/02/17 06:00 11/02/17 16:00 Bisacodyl (Dulcolax Supp) 10 mg DAILY PRN [place] 10/31/17 18:00 11/30/17 17:59 Sodium Biphosphate/ Sodium Phosphate (Fleet Enema) 132 ml DAILY PRN [place] 10/31/17 18:00 11/30/17 17:59 Potassium Chloride (Klor-Con Tab) 20 meq BIDM PO 11/01/17 09:00 12/01/17 08:59 11/01/17 16:31 20 MEQ Ceftriaxone Sodium 1 gm/ Dextrose 50 ml @ 100 mls/hr Q24H IV 11/01/17 22:00 11/06/17 21:59 11/01/17 22:29 100 MLS/HR Metoprolol Succinate (Toprol Xl Tab) 12.5 mg BID PO 11/02/17 21:00 12/02/17 20:59
[2017-11-02] MEDS: SUCRALFATE 1 GM/10 ML UDC PO SCH ×2 (09:00→11:39)
[2017-11-02] MEDS ORDERED: LORAZEPAM INJ 0.25 MG in SYRINGE 0.25 ML IV ONE (09:00)
[2017-11-02] MEDS ORDERED: LORAZEPAM INJ 0.25 MG in SYRINGE 0.125 ML IV SCH (09:15)
[2017-11-02] MEDS ORDERED: FENTANYL CITRATE INJ 50 MCG/1 ML 2 ML VIAL ONE (09:25)
[2017-11-02] MEDS ORDERED: MIDAZOLAM HCL 1 MG/ML 2ML VIAL ONE (09:25)
--- NOTE | 2017-11-02 09:26 | Progress Note ---
Progress Note Date of Service Nov 02, 2017. Progress Note Patient for filter insertion today. I have discussed the risks options and benefits of the procedure with the patient. The patient understands the risks options and benefits and agrees to the procedure. I have examined the patient, reviewed the History & Physical and in the interval since the performance of the History & Physical I have noted the following changes of clinical significance: No changes noted
--- NOTE | 2017-11-02 09:55 | Pre Sedation Assessment ---
Pre Sedation Assessment General Date of Sedation: Nov 02, 2017. Vital Signs Past 12 Hours Date Time Temp Pulse Resp B/P (MAP) Pulse Ox O2 Delivery O2 Flow Rate FiO2 11/02/17 07:04 76 18 98 Nasal Cannula 2.0 11/02/17 04:09 96 Nasal Cannula 3.0 98 11/02/17 03:58 36.7 65 16 152/81 (104) 96 11/02/17 00:00 97 Nasal Cannula 3.0 98 11/01/17 23:56 36.6 81 18 189/93 (125) 99 3.0 Review Cardiovascular: regular rate, rhythm Lungs: lungs clear Pre-Sedation Airway Assessment Smoking Status: Never Smoker Hx of Sleep Apnea: No Short Thick Neck: No Thyro-mental Distance: < or =3 Finger Breadths Oral Cavity: WNL Mallampati Classification: Class II ASA Classification: Class III NPO Status Date of Last Intake of Fluids: Nov 02, 2017 Time of Last Intake of Fluids: 0000 Date of Last Intake of Solids: Nov 02, 2017 Time of Last Intake of Solids: 0000 Procedure Planning Contraindications for Sedation: None Current Medications Reviewed: Yes Notes The planned sedation has been discussed with the patient. Informed Consent was obtained. I have identified the patient, determined the appropriateness of sedation and have assessed the patient immediately prior to the procedure. All medicine(s) and interventions are by my order.
[2017-11-02] MEDS ORDERED: LIDOCAINE HCL 1% 20 ML VIAL INJ ONE (10:08)
[2017-11-02] MEDS ORDERED: IODIXANOL (VISIPAQUE) 270 MG/ML 50ML FLUSH ONE (10:16)
--- NOTE | 2017-11-02 10:21 | [facility] Post Operative Brief Note ---
Immediate Operative Summary Operative Date Nov 02, 2017. Pre-Operative Diagnosis deep vein thrombosis, pulmonary emboli, gastrointestinal bleed Post-Operative Diagnosis deep vein thrombosis, pulmonary emboli, gastrointestinal bleed Procedure(s) Performed Insertion Of Vena Cava Filter, Right Femoral Approach, Ultrasound Localization Of Right Femoral Vein, Fluoroscopy For Positioning Surgeon Dr. Phan Sheet Metal Worker Apprentice Surgeon(s) none Estimated Blood Loss 0 Findings Consistent with Post-Op Diagnosis Specimens none Drains None Anesthesia Type Local Complication(s) none Disposition Accompanied Pt To Recover: no Disposition:
--- NOTE | 2017-11-02 10:25 | [facility] Operative Report ---
Operative Report Operative Date Nov 02, 2017. Pre-Operative Diagnosis deep vein thrombosis, pulmonary emboli, gastrointestinal bleed Post-Operative Diagnosis deep vein thrombosis, pulmonary emboli, gastrointestinal bleed Procedure(s) Performed Insertion Of Vena Cava Filter, Right Femoral Approach, Ultrasound Localization Of Right Femoral Vein, Fluoroscopy For Positioning Surgeon Dr. Phan Motor Pool Clerk Surgeon(s) none Estimated Blood Loss 0 Findings Filter was positioned in the infrarenal inferior vena cava. It was in a good upright position. There was no clot seen in the inferior vena cava. Specimens none Drains None Anesthesia Type Local Complication(s) none Disposition no Indications This is an 82-year-old female who had a history of epistaxis while on anticoagulation in the past. The epistaxis stopped and she was placed back on her anticoagulation. There is no in indication for filter that time. She now presented with bilateral pulmonary emboli acute deep venous thrombosis and chronic anemia from apparently had GI source. At this point we did recommend a filter placement. I have discussed the risks options and benefits of the procedure with the patient. The patient understands the risks options and benefits and agrees to the procedure. Description of Procedure The patient was brought to the angio suite and placed in the supine position. The right groin was prepped and draped in the usual fashion. The right femoral vein was located with ultrasound. It was patent, compressed easily, and had no filling defects. The vein was then punctured under ultrasound visualization. A guidewire was then passed centrally into the inferior vena cava under fluoroscopic guidance. The puncture site was then dilated and the filter sheath inserted. It was passed to the infra renal vena cava. A venacavagram was done which showed no cava clot and an acceptable size. The renal veins were identified. The filter was then passed through the sheath and deployed in the infra renal vena cava in an upright position. Satisfied with the positioning of the filter, the sheath was removed. Pressure was applied to the puncture site. Adequate hemostasis was obtained and a sterile dressing was applied. The patient left the angio suite in good condition and tolerated the procedure well. I attest to the content of the Intraoperative Record and any orders documented therein. Any exceptions are noted below.
[2017-11-02] MEDS: OXYCODONE/ACETAMINOPHEN 5-325 TAB PO PRN ×2 (11:34→17:38)
[2017-11-02] MEDS: GUAIFENESIN 600 MG TABCR PO SCH ×2 (11:35→20:42)
[2017-11-02] MEDS: PANTOprazole SOD 40 MG TAB PO SCH ×2 (11:35→20:42)
[2017-11-02] MEDS: FUROSEMIDE 40 MG TAB PO SCH (11:36)
[2017-11-02] MEDS: DOCUSATE SODIUM/SENNA 50/8.6MG TAB PO SCH (11:38)
[2017-11-02] MEDS: POTASSIUM CHLORIDE 20 MEQ TABCR PO SCH ×2 (11:39→17:27)
[2017-11-02] MEDS: FENTANYL 12 MCG/HR TDSY TD SCH (13:46)
[2017-11-02] MEDS: FENTANYL PATCH REMOVE & WASTE SCH (13:46)
[2017-11-02] MEDS ORDERED: LORAZEPAM 0.5 MG TAB ONE (15:04)
[2017-11-02] MEDS: HEPARIN 25,000 UNIT/500ML D5W 500 ML IV SCH (15:07)
[2017-11-02] MEDS: SENNA 8.6 MG TAB PO SCH (20:41)
[2017-11-02] MEDS: METOPROLOL SUCC 25MG EXT REL TAB PO SCH (20:42)
[2017-11-02] MEDS ORDERED: WARFARIN SOD 6 MG TAB PO ONE (20:45)
[2017-11-02] MEDS: LORAZEPAM 0.5 MG TAB PO PRN (21:14)
[2017-11-02] MEDS: CEFTRIAXONE SOD INJ 1 GM in DEXTROSE 5% ADD-VANTAGE 50ML 50 ML IV SCH (21:14)
[2017-11-02] MEDS ORDERED: MIRTAZAPINE SOLTAB 15 MG PO ONE (22:55)
[2017-11-02] MEDS ORDERED: RANITIDINE HCL 150 MG TAB PO ONE (22:55)
[2017-11-03] VITALS (11 sets, daily range): BP systolic 98–179; BP diastolic 60–92; PULSE 70–85; TEMP 36.3–36.8; O2SAT 95–98
[2017-11-03] MEDS: LORAZEPAM 0.5 MG TAB PO PRN ×2 (05:18→20:51)
[2017-11-03] MEDS: LEVALBUTEROL 1.25MG/0.5ML NEB INH PRN (05:26)
[2017-11-03] MEDS: IPRATROPIUM BROMIDE NEB SOLN 0.02% 2.5 ML VIAL INH PRN (05:26)
[2017-11-03 06:15] LABS: HEMATOCRIT 32.2 % (37-47); HEMOGLOBIN 10.2 g/dL (12.0-16.0); MEAN CELL VOLUME 92.8 fL (80-100); MEAN CORPUSCULAR HEMOGLOBIN 29.4 pg (25-34); MEAN CORPUSCULAR HGB CONC 31.7 g/dl (32-36); MEAN PLATELET VOLUME 9.6 fL (7.4-10.4); PLATELET COUNT 261 K/uL (130-400); RED CELL DISTRIBUTION WIDTH CV 16.9 % (11.5-14.5); RED CELL DISTRIBUTION WIDTH SD 56.9 fL (36.4-46.3); WHITE BLOOD COUNT 9.56 K/uL (4.8-10.8)
[2017-11-03] MEDS: MoRPHine SULFATE 2 MG/ML CARP IV PRN ×2 (06:18→14:23)
[2017-11-03 06:36] LABS: INR 1.1 (0.9-1.1)
[2017-11-03 06:39] LABS: PTT PATIENT 57.2 SECONDS (21.0-31.0)
[2017-11-03 06:47] LABS: CREATININE 1.2 mg/dl (0.60-1.20); POTASSIUM 3.9 mmol/L (3.5-5.1)
[2017-11-03] MEDS: IPRATROPIUM BROMIDE NEB SOLN 0.02% 2.5 ML VIAL INH SCH ×4 (07:06→19:24)
[2017-11-03] MEDS: LEVALBUTEROL 1.25MG/0.5ML NEB INH SCH ×4 (07:06→19:24)
[2017-11-03] MEDS: METOPROLOL SUCC 25MG EXT REL TAB PO SCH ×2 (07:49→20:40)
[2017-11-03] MEDS: DOCUSATE SODIUM/SENNA 50/8.6MG TAB PO SCH (07:49)
[2017-11-03] MEDS: PANTOprazole SOD 40 MG TAB PO SCH ×2 (07:49→20:40)
[2017-11-03] MEDS: GUAIFENESIN 600 MG TABCR PO SCH ×2 (07:49→20:43)
[2017-11-03] MEDS: BOOST BREEZE NUTRITION DRINK 1 BOX PO SCH ×2 (07:50→13:35)
[2017-11-03] MEDS: FUROSEMIDE 40 MG TAB PO SCH (07:51)
[2017-11-03] MEDS: POTASSIUM CHLORIDE 20 MEQ TABCR PO SCH ×2 (07:51→16:18)
[2017-11-03] MEDS: LACTOBACILLUS ACIDOPHILUS (FLORANEX) TAB PO SCH ×3 (07:52→16:17)
[2017-11-03] MEDS: FLUTICASONE/SALMETEROL 250/50 (ADVAIR) 14 PUFF/1 INHALER INH SCH ×2 (07:57→20:38)
[2017-11-03] MEDS: CHECK FENTANYL PATCH PLACEMENT SCH ×2 (07:59→16:17)
[2017-11-03] MEDS: OXYCODONE/ACETAMINOPHEN 5-325 TAB PO PRN ×2 (08:42→20:51)
[2017-11-03] MEDS: GABAPENTIN 100 MG CAP PO SCH (08:43)
[2017-11-03] MEDS: PAROXETINE 20 MG TAB PO SCH (08:43)
[2017-11-03] MEDS: ASPIRIN 81 MG ECTAB PO SCH (08:43)
--- NOTE | 2017-11-03 10:46 | Progress Note ---
Medicine Progress Note Date & Time of Visit: Nov 03, 2017 at 10:16. Subjective 82 yo F initially presented with pneumonia whose clinical course was complicated by an acute PE. She is s/p IVC filter yesterday and is currently on heparin drip as bridge to warfarin. Breathing is about the same today. She reports some minor chest pain this morning, which was better with morphine. She reports this chest pain is from the blood clot and is improved overall. She denies any R leg pain or swelling. She denies any cough, fevers or chills. She has chronic constipation. She reports some acute nausea without vomiting or abdominal pain just after breakfast this morning. Objective Last 8 Hrs Date Time Temp Pulse Resp B/P (MAP) Pulse Ox O2 Delivery O2 Flow Rate FiO2 11/03/17 08:00 Nasal Cannula 3.0 11/03/17 07:50 36.5 84 20 154/77 (102) 98 Nasal Cannula 2.0 11/03/17 07:06 71 20 98 Nasal Cannula 2.0 11/03/17 05:29 73 22 97 Nasal Cannula 2.0 11/03/17 04:28 36.4 70 22 179/92 (121) 98 Nasal Cannula 2.0 11/03/17 04:00 Nasal Cannula 3.0 Physical Exam: GEN: WNWD, in no acute distress, alert and appropriate, some conversational dyspnea noted but no respiratory distress. HEENT: NC/AT, pupils are equal and reactive, normal sclerae, MM are dry. No whitish substances on tongue. CARDIO: reg rate, S1/2 heard without m/g/r LUNGS: mild rhonchi at bases. ABD: soft, non-tender, non-distended, no rebound or guarding, +BS EXTREMITY: RP and DP palpable 2+ bilat, no LE swelling or edema, extremities are warm and well-perfused NEURO: CN 2-12 grossly intact, no gross focal deficits. MUSC: 5/5 strength throughout, no gross focal deficits SKIN: warm and dry Laboratory Results: 11/03/17 06:03 11/03/17 06:03 Test 10/02/17 17:47 10/02/17 20:30 10/08/17 06:18 10/08/17 07:22 Hypochromasia PRESENT Total Creatine Kinase 24 U/L (26-192) Creatine Kinase MB 1.0 ng/ml (0.5-3.6) Creatine Kinase MB Ratio 4.2 (0-3.0) Stool Occult Blood POSITIVE (NEGATIVE) Blood Gas Sample Site L Radial Bedside Blood Gas pH (LAB) 7.49 (7.35-7.45) Bedside Blood Gas pCO2 (LAB) 36 mmHg (35-46) Bedside Blood Gas pO2 (LAB) 48 mmHg (80-95) Bedside Blood Gas HCO3 (LAB) 27 meq/L (19-24) Bedside Blood Gas Total CO2 28 mEq/l (24-31) Bedside Blood Gas Base Excess (LAB) 4.0 meq/L (-9-1.8) Bedside Blood Gas O2 Saturation 87.0 % (90-95) Oxygen Delivery Device Other Bedside FiO2 0 % Pro-B-Type Natriuretic Peptide 1246 pg/ml (0-1800) Test 10/08/17 07:56 10/09/17 05:06 10/10/17 18:14 10/11/17 06:46 Arterial Blood pH 7.43 (7.35-7.45) Arterial Blood Partial Pressure CO2 42 mmHg (35-46) Arterial Blood Partial Pressure O2 81 mm/Hg (80-95) Arterial Blood HCO3 27 mmol/L (19-24) Arterial Blood Oxygen Saturation 96.0 % (90-95) Arterial Blood Base Excess 2.6 mEq/L (-9-1.8) Arterial Blood Gas Delivery FIO2 60% Hayden Test POS (POS) Dohle Bodies 1+ Ionized Calcium 1.27 mmol/l (1.12-1.32) Phosphorus Level 3.7 mg/dl (2.5-4.9) Influenza Type A (RT-PCR) Neg for Influ A (NEG) Influenza Type A Antigen Neg for Influ A (NEG) Influenza Type B Antigen Neg for Influ B (NEG) Influenza Type B (RT-PCR) Neg for Influ B (NEG) Lactic Acid Level 1.5 mmol/L (0.4-2.0) Random Vancomycin Level 19.5 mcg/ml Test 10/12/17 04:20 10/13/17 11:48 10/20/17 10:23 10/23/17 07:58 Globulin 3.8 gm/dl (2.5-4.0) Albumin/Globulin Ratio 0.6 (0.9-2) Vancomycin Level Trough 20.9 mcg/ml (SEE COMMENT) Procalcitonin 0.28 ng/ml (0-0.5) Magnesium Level 2.1 mg/dl (1.8-2.4) Test 10/27/17 05:39 10/31/17 07:00 11/01/17 10:00 11/02/17 06:23 Immature Granulocyte % (Auto) 0.5 % White Blood Count 16.61 K/uL (4.8-10.8) Red Blood Count 4.07 M/uL (4.2-5.4) Hemoglobin 12.0 g/dL (12.0-16.0) Hematocrit 37.5 % (37-47) Mean Corpuscular Volume 92.1 fL (80-100) Mean Corpuscular Hemoglobin 29.5 pg (25-34) Mean Corpuscular Hemoglobin Concent 32.0 g/dl (32-36) Platelet Count 297 K/uL (130-400) Mean Platelet Volume 9.4 fL (7.4-10.4) Neutrophils (%) (Auto) 78.9 % Lymphocytes (%) (Auto) 9.8 % Monocytes (%) (Auto) 10.7 % Eosinophils (%) (Auto) 0.1 % Basophils (%) (Auto) 0.0 % Neutrophils # (Auto) 13.12 K/uL (1.4-6.5) Lymphocytes # (Auto) 1.63 K/uL (1.2-3.4) Monocytes # (Auto) 1.77 K/uL (0.11-0.59) Eosinophils # (Auto) 0.01 K/uL (0-0.5) Basophils # (Auto) 0.00 K/uL (0-0.2) Immature Granulocyte # (Auto) 0.08 K/uL (0.00-0.02) Bedside Glucose 78 mg/dl (70-90) Urine Color YELLOW Urine Appearance TURBID (CLEAR) Urine pH 7.0 (4.5-7.5) Urine Specific [place] 1.009 (1.000-1.030) Urine Protein NEG (NEG) Urine Glucose (UA) NEG (NEG) Urine Ketones NEG (NEG) Urine Occult Blood 2+ (NEG) Urine Nitrite POS (NEG) Urine Bilirubin NEG (NEG) Urine Urobilinogen NEG (NEG) Urine Leukocyte Esterase LARGE (NEG) Urine WBC (Auto) >30 /hpf (0-5) Urine RBC (Auto) 0-4 /hpf (0-4) Urine Hyaline Casts (Auto) 1-5 /lpf (0-5) Urine Epithelial Cells (Auto) 5-10 /lpf (0-5) Urine Bacteria (Auto) 2+ (NEG) Urine Yeast (Auto) (NONE PRSENT) Total Bilirubin 0.3 mg/dl (0.2-1) Direct Bilirubin < 0.1 mg/dl (0-0.2) Aspartate Amino Transf (AST/SGOT) 34 U/L (15-37) Alanine Aminotransferase (ALT/SGPT) 60 U/L (12-78) Alkaline Phosphatase 108 U/L (45-117) Troponin I 0.154 ng/ml (0-0.045) Total Protein 5.9 gm/dl (6.4-8.2) Albumin 2.1 gm/dl (3.4-5.0) Lipase 87 U/L (73-393) Test 11/03/17 06:03 Red Blood Count 3.47 M/uL (4.2-5.4) Mean Corpuscular Volume 92.8 fL (80-100) Mean Corpuscular Hemoglobin 29.4 pg (25-34) Mean Corpuscular Hemoglobin Concent 31.7 g/dl (32-36) RDW Standard Deviation 56.9 fL (36.4-46.3) RDW Coefficient of Variation 16.9 % (11.5-14.5) Mean Platelet Volume 9.6 fL (7.4-10.4) Prothrombin Time 11.2 SECONDS (9.0-12.0) Prothromb Time International Ratio 1.1 (0.9-1.1) Activated Partial Thromboplast Time 57.2 SECONDS (21.0-31.0) Partial Thromboplastin Ratio 2.2 Anion Gap 7.0 mmol/L (3-11) Est Creatinine Clear Calc Drug Dose 28.5 ml/min Estimated GFR () 48.1 Estimated GFR (Non- 41.5 BUN/Creatinine Ratio 21.0 (10-20) Calcium Level 10.0 mg/dl (8.5-10.1) Date/Time Source Procedure Growth Status 10/10/17 15:00 Blood Blood Culture - Final NO GROWTH Complete 10/08/17 14:45 Nasal MRSA DNA Surveillance Screen - Final Specimen Positive for MRSA by DNA Probe Complete 10/02/17 20:30 Stool C.difficile Toxin B Gene (PCR) - Final No C. difficile toxin B gene detected Complete 10/11/17 16:50 Sputum Expectorated Sputum Gram Stain - Final Complete 10/11/17 16:50 Sputum Culture - Final Heather Albicans Yeast Not Heather Albicans Complete 11/01/17 00:00 Urine , Clean Catch Urine Culture - Preliminary Klebsiella Pneumoniae Resulted Last 24 Hours Test 11/03/17 06:03 White Blood Count 9.56 K/uL Red Blood Count 3.47 M/uL Hemoglobin 10.2 g/dL Hematocrit 32.2 % Mean Corpuscular Volume 92.8 fL Mean Corpuscular Hemoglobin 29.4 pg Mean Corpuscular Hemoglobin Concent 31.7 g/dl RDW Standard Deviation 56.9 fL RDW Coefficient of Variation 16.9 % Platelet Count 261 K/uL Mean Platelet Volume 9.6 fL Prothrombin Time 11.2 SECONDS Prothromb Time International Ratio 1.1 Activated Partial Thromboplast Time 57.2 SECONDS Partial Thromboplastin Ratio 2.2 Sodium Level 137 mmol/L Potassium Level 3.9 mmol/L Chloride Level 101 mmol/L Carbon Dioxide Level 29 mmol/L Anion Gap 7.0 mmol/L Blood Urea Nitrogen 25 mg/dl Creatinine 1.20 mg/dl Est Creatinine Clear Calc Drug Dose 28.5 ml/min Estimated GFR () 48.1 Estimated GFR (Non- 41.5 BUN/Creatinine Ratio 21.0 Random Glucose 91 mg/dl Calcium Level 10.0 mg/dl Assessment & Plan 82 yo F initially presented with pneumonia whose clinical course was complicated by an acute PE. She is s/p IVC filter yesterday and is currently on heparin drip as bridge to warfarin. Breathing is about the same today. She reports some minor chest pain this morning, which was better with morphine. She reports this chest pain is from the blood clot and is improved overall. She denies any R leg pain or swelling. She denies any cough, fevers or chills. She has chronic constipation. She reports some acute nausea without vomiting or abdominal pain just after breakfast this morning. 1. Acute pulmonary emboli-acute change in clinical status on 10/26 with CTA confirming bilat PE. Bilat DVT in legs were also noted. She has a h/o recurrent GI bleeding, transfusion dependent anemia and a recent episode of epistaxis. She continues on IV heparin and is being bridged to coumadin. She is not a candidate for novel anticoagulants. She is not currently bleeding and H/H is stable post-procedure. Telemetry reveals SR with some PACs and PVCs overnight. 2. Acute on chronic hypoxic respiratory failure 2/2 pneumonia and subsequently PE. Cont oxygen supplementation as needed. 3. CAD s/p PCI to RCA in 2011. Minor chest pain this morning controlled with morphine and consistent with pain from her PE. Atypical for cardiac pain. Mild trop elevation in recent days consistent with strain on myocardium vs LVH in setting of valvular disease. Will cont to monitor closely. Cont med management with ASA and Toprol XL and anticoagulation. 4. Chronic diastolic heart failure. Compensated on exam. Suspect slight conversational dyspnea is more related to #1 above in setting of recent pneumonia and prolonged hospitalization. Cont daily Lasix. 5. h/o TAVR (bioprosthetic) 6. CKD III-at baseline. Renally dose medications and avoid nephrotoxic agents. 7. Anemia of chronic disease punctuated by periods of blood loss anemia-H/H stable, transfuse PRN. 8. Polyarthritis-cont chronic prednisone and Fentanyl 9. Chronic constipation-cont Senekot and monitor. 10. Klebsiella UTI-pt reports recent Marcelo removal last week. She reports feeling that she "had UTI symptoms" in recent days. Klebsiella is present. Will switch to Keflex. DVT proph-heparin drip Full Code Dispo-await bridge to therapeutic coumadin level (INR 2-3) then plans for home with Home Health. Sis Mathur DO [facility] Hospitalist. Current Inpatient Medications: Current Inpatient Medications Medications (Trade) Dose Ordered Sig/Rosi Route Start Time Stop Time Status Last Admin Dose Admin Pantoprazole Sodium (Protonix Tab) 40 mg BID PO 10/05/17 21:00 12/04/17 20:59 11/03/17 07:49 40 MG Ipratropium [place] (Atrovent 0.02% 0.5MG/2.5ML Neb) 0.5 mg Q2R PRN INH 10/08/17 08:00 11/07/17 07:59 11/03/17 05:26 0.5 MG Levalbuterol (Xopenex 1.25MG/ 0.5ML Neb) 1.25 mg Q2R PRN INH 10/08/17 08:00 11/07/17 07:59 11/03/17 05:26 1.25 MG Heparin Sodium (Porcine) (Heparin 10 Unit/ ml 5 ml Flush) 5 ml PRN PRN FLUSH 10/10/17 13:30 11/09/17 13:29 10/25/17 11:26 5 ML Furosemide (Lasix Tab) 40 mg QAM PO 10/11/17 09:00 11/10/17 08:59 11/03/17 07:51 40 MG Guaifenesin (Mucinex Contr Rel Tab) 600 mg Q12 PO 10/11/17 21:00 11/10/17 20:59 11/03/17 07:49 600 MG Senna/Docusate Sodium (Senokot S Tab) 1 tab QAM PO 10/14/17 09:00 11/13/17 08:59 11/03/17 07:49 1 TAB Senna (Senokot Tab) 8.6 mg QPM PO 10/13/17 21:00 11/12/17 20:59 11/02/17 20:41 8.6 MG Bisacodyl (Dulcolax Tab) 5 mg BID PRN PO 10/13/17 17:45 11/12/17 17:44 10/31/17 10:24 5 MG Benzocaine (Orajel 20% Oral Gel) 1 appln QID PRN MT 10/18/17 18:00 11/17/17 17:59 Fentanyl (Duragesic Patch) 12 mcg Q72H TD 10/21/17 13:30 11/18/17 13:28 11/02/17 13:46 12 MCG Miscellaneous (Fentanyl Patch Remove & Waste) 1 ea Q3D N/A 10/24/17 13:29 11/23/17 13:28 11/02/17 13:46 1 EA Miscellaneous Information (Check Fentanyl Patch Placement) 1 ea QS N/A 10/21/17 16:00 11/20/17 15:59 11/03/17 07:59 1 EA Menthol (Nice Jonnie) 1 jonnie PRN PRN JONNIE 10/22/17 23:15 11/21/17 23:14 Prednisone (PredniSONE TAB) 20 mg DAILY PO 10/25/17 09:00 11/24/17 08:59 11/03/17 07:49 20 MG Heparin Sodium/ Dextrose 500 ml @ 14 mls/hr Q24H IV 10/26/17 15:30 11/25/17 15:29 11/02/17 15:07 14 MLS/HR Morphine Sulfate (MoRPHine SULFATE INJ) 0.5 mg Q1H PRN IV 10/27/17 09:00 11/10/17 08:59 11/03/17 06:18 0.5 MG Enteral Nutritional Formula (Boost Breeze Nutritional Drink) 1 box [id number] PO 10/29/17 07:00 11/28/17 06:59 11/03/17 07:50 1 BOX Ipratropium [place] (Atrovent 0.02% 0.5MG/2.5ML Neb) 0.5 mg QIDR INH 10/31/17 08:00 11/15/17 07:58 11/03/17 07:06 0.5 MG Levalbuterol (Xopenex 1.25MG/ 0.5ML Neb) 1.25 mg QIDR INH 10/31/17 08:00 11/15/17 07:58 11/03/17 07:06 1.25 MG Oxycodone/ Acetaminophen (Percocet 5-325mg Tab) 1 tab Q4H PRN PO 10/31/17 10:30 11/14/17 10:29 11/03/17 08:42 1 TAB Bisacodyl (Dulcolax Supp) 10 mg DAILY PRN CA 10/31/17 18:00 11/30/17 17:59 Sodium Biphosphate/ Sodium Phosphate (Fleet Enema) 132 ml DAILY PRN CA 10/31/17 18:00 11/30/17 17:59 Potassium Chloride (Klor-Con Tab) 20 meq BIDM PO 11/01/17 09:00 12/01/17 08:59 11/03/17 07:51 20 MEQ Ceftriaxone Sodium 1 gm/ Dextrose 50 ml @ 100 mls/hr Q24H IV 11/01/17 22:00 11/06/17 21:59 11/02/17 21:14 100 MLS/HR Metoprolol Succinate (Toprol Xl Tab) 12.5 mg BID PO 11/02/17 21:00 12/02/17 20:59 11/03/17 07:49 12.5 MG Lorazepam (Ativan Tab) 0.5 mg Q8H PRN PO 11/02/17 15:15 12/02/17 15:14 11/03/17 05:18 0.5 MG Mirtazapine (Remeron Solutab) 15 mg HS PO 11/03/17 21:00 12/03/17 20:59 Ranitidine HCl (zANTac TAB) 300 mg HS PO 11/03/17 21:00 12/03/17 20:59 Warfarin Sodium (Coumadin Tab) 2 mg DAILY@16 PO 11/03/17 16:00 12/03/17 15:59 Ferrous Sulfate (Feosol Tab) 325 mg DAILY@1200 PO 11/03/17 12:00 12/03/17 11:59 Ascorbic Acid (Vitamin C Tab) 500 mg DAILY@1200 PO 11/03/17 12:00 12/03/17 11:59 Lactobacillus Acidophilus (Floranex Tab) 1 tab TIDM PO 11/03/17 07:30 12/03/17 07:29 11/03/17 07:52 1 TAB Magnesium Oxide (Mag-Ox Tab) 400 mg DAILY@1200 PO 11/03/17 12:00 12/03/17 11:59 Gabapentin (Neurontin Cap) 100 mg QAM PO 11/03/17 09:00 12/03/17 08:59 11/03/17 08:43 100 MG Salmeterol Xinafoate/ Fluticasone (Advair Diskus 250/50 Inh) 1 puff BID INH 11/03/17 09:00 12/03/17 08:59 11/03/17 07:57 1 PUFF Paroxetine HCl (pAXil TAB) 40 mg QAM PO 11/03/17 09:00 12/03/17 08:59 11/03/17 08:43 40 MG Aspirin (Ecotrin Tab) 81 mg QAM PO 11/03/17 09:00 12/03/17 08:59 11/03/17 08:43 81 MG
[2017-11-03] MEDS: ASCORBIC ACID 500 MG TAB PO SCH (11:38)
[2017-11-03] MEDS: ONDANSETRON 4MG OD TAB PO PRN (11:38)
[2017-11-03] MEDS: FERROUS SULFATE 325 MG TAB PO SCH (11:38)
[2017-11-03] MEDS: MAGNESIUM OXIDE 400 MG TAB PO SCH (11:38)
[2017-11-03] MEDS: WARFARIN SOD 2 MG TAB PO SCH (16:16)
[2017-11-03] MEDS: RANITIDINE HCL 150 MG TAB PO SCH (20:41)
[2017-11-03] MEDS: MIRTAZAPINE SOLTAB 15 MG PO SCH (20:43)
[2017-11-03] MEDS: SENNA 8.6 MG TAB PO SCH (20:43)
[2017-11-03] MEDS: CEPHALEXIN MONOHYDRATE 250 MG CAP PO SCH (20:44)
[2017-11-03] MEDS: HEPARIN 25,000 UNIT/500ML D5W 500 ML IV SCH (22:50)
[2017-11-04] VITALS (10 sets, daily range): BP systolic 102–130; BP diastolic 68–76; PULSE 64–96; TEMP 36.4–36.9; O2SAT 93–100
[2017-11-04] MEDS: CHECK FENTANYL PATCH PLACEMENT SCH ×3 (00:24→17:00)
[2017-11-04] MEDS: IPRATROPIUM BROMIDE NEB SOLN 0.02% 2.5 ML VIAL INH PRN (04:44)
[2017-11-04] MEDS: LEVALBUTEROL 1.25MG/0.5ML NEB INH PRN (04:44)
[2017-11-04] MEDS: OXYCODONE/ACETAMINOPHEN 5-325 TAB PO PRN ×3 (05:03→20:35)
[2017-11-04] MEDS: LORAZEPAM 0.5 MG TAB PO PRN ×2 (05:03→22:16)
[2017-11-04 05:12] LABS: INR 1.9 (0.9-1.1)
[2017-11-04] MEDS: IPRATROPIUM BROMIDE NEB SOLN 0.02% 2.5 ML VIAL INH SCH ×2 (07:10→10:59)
[2017-11-04] MEDS: LEVALBUTEROL 1.25MG/0.5ML NEB INH SCH ×2 (07:10→10:59)
[2017-11-04 07:47] LABS: PTT PATIENT 74.2 SECONDS (21.0-31.0)
[2017-11-04] MEDS: BOOST BREEZE NUTRITION DRINK 1 BOX PO SCH ×2 (08:00→14:00)
[2017-11-04] MEDS: ASPIRIN 81 MG ECTAB PO SCH (08:00)
[2017-11-04] MEDS: PAROXETINE 20 MG TAB PO SCH (08:00)
[2017-11-04] MEDS: PANTOprazole SOD 40 MG TAB PO SCH ×2 (08:01→20:39)
[2017-11-04] MEDS: FUROSEMIDE 40 MG TAB PO SCH (08:01)
[2017-11-04] MEDS: METOPROLOL SUCC 25MG EXT REL TAB PO SCH ×2 (08:01→20:40)
[2017-11-04] MEDS: GUAIFENESIN 600 MG TABCR PO SCH ×2 (08:01→20:40)
[2017-11-04] MEDS: LACTOBACILLUS ACIDOPHILUS (FLORANEX) TAB PO SCH ×3 (08:02→17:02)
[2017-11-04] MEDS: FLUTICASONE/SALMETEROL 250/50 (ADVAIR) 14 PUFF/1 INHALER INH SCH ×2 (08:02→20:41)
[2017-11-04] MEDS: CEPHALEXIN MONOHYDRATE 250 MG CAP PO SCH ×2 (08:03→20:38)
[2017-11-04] MEDS: GABAPENTIN 100 MG CAP PO SCH (08:03)
[2017-11-04] MEDS: DOCUSATE SODIUM/SENNA 50/8.6MG TAB PO SCH (08:04)
[2017-11-04] MEDS: POTASSIUM CHLORIDE 20 MEQ TABCR PO SCH ×2 (08:04→17:27)
[2017-11-04] MEDS: HEPARIN 25,000 UNIT/500ML D5W 500 ML IV SCH ×2 (08:08→16:22)
[2017-11-04] MEDS: ASCORBIC ACID 500 MG TAB PO SCH (11:36)
[2017-11-04] MEDS: MAGNESIUM OXIDE 400 MG TAB PO SCH (11:36)
[2017-11-04] MEDS: FERROUS SULFATE 325 MG TAB PO SCH (11:37)
[2017-11-04 14:48] LABS: PTT PATIENT 73.2 SECONDS (21.0-31.0)
[2017-11-04] MEDS: WARFARIN SOD 2 MG TAB PO SCH (17:27)
[2017-11-04] MEDS: MIRTAZAPINE SOLTAB 15 MG PO SCH (20:36)
[2017-11-04] MEDS: SENNA 8.6 MG TAB PO SCH (20:39)
[2017-11-04] MEDS: RANITIDINE HCL 150 MG TAB PO SCH (20:40)
[2017-11-04] MEDS: ONDANSETRON 4MG OD TAB PO PRN (22:42)
[2017-11-04 22:48] LABS: PTT PATIENT 60.8 SECONDS (21.0-31.0)
--- NOTE | 2017-11-04 23:32 | Progress Note ---
Medicine Progress Note Date & Time of Visit: Nov 04, 2017 at 23:27. Subjective 82 yo F initially presented with pneumonia whose clinical course was complicated by an acute PE. She is s/p IVC filter on 11/02 and is currently on heparin drip as bridge to warfarin. Breathing is improved. She denies chest pain. She denies any cough, fevers or chills. She has chronic constipation. She reports some acute nausea without vomiting or abdominal pain just after breakfast this morning. Objective Last 8 Hrs Date Time Temp Pulse Resp B/P (MAP) Pulse Ox O2 Delivery O2 Flow Rate FiO2 11/04/17 16:20 36.9 76 16 115/72 (86) 99 Nasal Cannula 3.0 11/04/17 16:03 97 Nasal Cannula 3.0 Physical Exam: GEN: WNWD, in no acute distress, alert and appropriate, some conversational dyspnea noted but no respiratory distress. HEENT: NC/AT, normal sclerae. CARDIO: reg rate, S1/2 heard without m/g/r LUNGS: mild rhonchi at bases. Otherwise good airflow with good diaphragmatic excursion bilaterally ABD: soft, non-tender, non-distended, no rebound or guarding, +BS EXTREMITY: RP and DP palpable 2+ bilat, no LE swelling or edema, extremities are warm and well-perfused NEURO: CN 2-12 grossly intact, no gross focal deficits. MUSC: 5/5 strength throughout, no gross focal deficits SKIN: warm and dry Laboratory Results: 11/03/17 06:03 11/03/17 06:03 Test 10/02/17 17:47 10/02/17 20:30 10/08/17 06:18 10/08/17 07:22 Hypochromasia PRESENT Total Creatine Kinase 24 U/L (26-192) Creatine Kinase MB 1.0 ng/ml (0.5-3.6) Creatine Kinase MB Ratio 4.2 (0-3.0) Stool Occult Blood POSITIVE (NEGATIVE) Blood Gas Sample Site L Radial Bedside Blood Gas pH (LAB) 7.49 (7.35-7.45) Bedside Blood Gas pCO2 (LAB) 36 mmHg (35-46) Bedside Blood Gas pO2 (LAB) 48 mmHg (80-95) Bedside Blood Gas HCO3 (LAB) 27 meq/L (19-24) Bedside Blood Gas Total CO2 28 mEq/l (24-31) Bedside Blood Gas Base Excess (LAB) 4.0 meq/L (-9-1.8) Bedside Blood Gas O2 Saturation 87.0 % (90-95) Oxygen Delivery Device Other Bedside FiO2 0 % Pro-B-Type Natriuretic Peptide 1246 pg/ml (0-1800) Test 10/08/17 07:56 10/09/17 05:06 10/10/17 18:14 10/11/17 06:46 Arterial Blood pH 7.43 (7.35-7.45) Arterial Blood Partial Pressure CO2 42 mmHg (35-46) Arterial Blood Partial Pressure O2 81 mm/Hg (80-95) Arterial Blood HCO3 27 mmol/L (19-24) Arterial Blood Oxygen Saturation 96.0 % (90-95) Arterial Blood Base Excess 2.6 mEq/L (-9-1.8) Arterial Blood Gas Delivery FIO2 60% Hayden Test POS (POS) Dohle Bodies 1+ Ionized Calcium 1.27 mmol/l (1.12-1.32) Phosphorus Level 3.7 mg/dl (2.5-4.9) Influenza Type A (RT-PCR) Neg for Influ A (NEG) Influenza Type A Antigen Neg for Influ A (NEG) Influenza Type B Antigen Neg for Influ B (NEG) Influenza Type B (RT-PCR) Neg for Influ B (NEG) Lactic Acid Level 1.5 mmol/L (0.4-2.0) Random Vancomycin Level 19.5 mcg/ml Test 10/12/17 04:20 10/13/17 11:48 10/20/17 10:23 10/23/17 07:58 Globulin 3.8 gm/dl (2.5-4.0) Albumin/Globulin Ratio 0.6 (0.9-2) Vancomycin Level Trough 20.9 mcg/ml (SEE COMMENT) Procalcitonin 0.28 ng/ml (0-0.5) Magnesium Level 2.1 mg/dl (1.8-2.4) Test 10/27/17 05:39 10/31/17 07:00 11/01/17 10:00 11/02/17 06:23 Immature Granulocyte % (Auto) 0.5 % White Blood Count 16.61 K/uL (4.8-10.8) Red Blood Count 4.07 M/uL (4.2-5.4) Hemoglobin 12.0 g/dL (12.0-16.0) Hematocrit 37.5 % (37-47) Mean Corpuscular Volume 92.1 fL (80-100) Mean Corpuscular Hemoglobin 29.5 pg (25-34) Mean Corpuscular Hemoglobin Concent 32.0 g/dl (32-36) Platelet Count 297 K/uL (130-400) Mean Platelet Volume 9.4 fL (7.4-10.4) Neutrophils (%) (Auto) 78.9 % Lymphocytes (%) (Auto) 9.8 % Monocytes (%) (Auto) 10.7 % Eosinophils (%) (Auto) 0.1 % Basophils (%) (Auto) 0.0 % Neutrophils # (Auto) 13.12 K/uL (1.4-6.5) Lymphocytes # (Auto) 1.63 K/uL (1.2-3.4) Monocytes # (Auto) 1.77 K/uL (0.11-0.59) Eosinophils # (Auto) 0.01 K/uL (0-0.5) Basophils # (Auto) 0.00 K/uL (0-0.2) Immature Granulocyte # (Auto) 0.08 K/uL (0.00-0.02) Bedside Glucose 78 mg/dl (70-90) Urine Color YELLOW Urine Appearance TURBID (CLEAR) Urine pH 7.0 (4.5-7.5) Urine Specific [place] 1.009 (1.000-1.030) Urine Protein NEG (NEG) Urine Glucose (UA) NEG (NEG) Urine Ketones NEG (NEG) Urine Occult Blood 2+ (NEG) Urine Nitrite POS (NEG) Urine Bilirubin NEG (NEG) Urine Urobilinogen NEG (NEG) Urine Leukocyte Esterase LARGE (NEG) Urine WBC (Auto) >30 /hpf (0-5) Urine RBC (Auto) 0-4 /hpf (0-4) Urine Hyaline Casts (Auto) 1-5 /lpf (0-5) Urine Epithelial Cells (Auto) 5-10 /lpf (0-5) Urine Bacteria (Auto) 2+ (NEG) Urine Yeast (Auto) (NONE PRSENT) Total Bilirubin 0.3 mg/dl (0.2-1) Direct Bilirubin < 0.1 mg/dl (0-0.2) Aspartate Amino Transf (AST/SGOT) 34 U/L (15-37) Alanine Aminotransferase (ALT/SGPT) 60 U/L (12-78) Alkaline Phosphatase 108 U/L (45-117) Troponin I 0.154 ng/ml (0-0.045) Total Protein 5.9 gm/dl (6.4-8.2) Albumin 2.1 gm/dl (3.4-5.0) Lipase 87 U/L (73-393) Test 11/03/17 06:03 11/04/17 04:45 11/04/17 22:04 Red Blood Count 3.47 M/uL (4.2-5.4) Mean Corpuscular Volume 92.8 fL (80-100) Mean Corpuscular Hemoglobin 29.4 pg (25-34) Mean Corpuscular Hemoglobin Concent 31.7 g/dl (32-36) RDW Standard Deviation 56.9 fL (36.4-46.3) RDW Coefficient of Variation 16.9 % (11.5-14.5) Mean Platelet Volume 9.6 fL (7.4-10.4) Anion Gap 7.0 mmol/L (3-11) Est Creatinine Clear Calc Drug Dose 28.5 ml/min Estimated GFR () 48.1 Estimated GFR (Non- 41.5 BUN/Creatinine Ratio 21.0 (10-20) Calcium Level 10.0 mg/dl (8.5-10.1) Prothrombin Time 19.9 SECONDS (9.0-12.0) Prothromb Time International Ratio 1.9 (0.9-1.1) Activated Partial Thromboplast Time 60.8 SECONDS (21.0-31.0) Partial Thromboplastin Ratio 2.3 Date/Time Source Procedure Growth Status 10/10/17 15:00 Blood Blood Culture - Final NO GROWTH Complete 10/08/17 14:45 Nasal MRSA DNA Surveillance Screen - Final Specimen Positive for MRSA by DNA Probe Complete 10/02/17 20:30 Stool C.difficile Toxin B Gene (PCR) - Final No C. difficile toxin B gene detected Complete 10/11/17 16:50 Sputum Expectorated Sputum Gram Stain - Final Complete 10/11/17 16:50 Sputum Culture - Final Heather Albicans Yeast Not Heather Albicans Complete 11/01/17 00:00 Urine , Clean Catch Urine Culture - Final Klebsiella Pneumoniae Complete Last 24 Hours Test 11/04/17 04:45 11/04/17 14:06 11/04/17 22:04 Prothrombin Time 19.9 SECONDS Prothromb Time International Ratio 1.9 Activated Partial Thromboplast Time 74.2 SECONDS 73.2 SECONDS 60.8 SECONDS Partial Thromboplastin Ratio 2.9 2.8 2.3 Assessment & Plan 82 yo F initially presented with pneumonia whose clinical course was complicated by an acute PE. She is s/p IVC filter on 11/02 and is currently on heparin drip as bridge to warfarin. Breathing is improved. She denies chest pain. She denies any cough, fevers or chills. She has chronic constipation. She reports some acute nausea without vomiting or abdominal pain just after breakfast this morning. 1. Acute pulmonary emboli-acute change in clinical status on 10/26 with CTA confirming bilat PE. Bilat DVT in legs were also noted. She has a h/o recurrent GI bleeding, transfusion dependent anemia and a recent episode of epistaxis. She continues on IV heparin and is being bridged to coumadin with INR 1.9 this morning. She is not a candidate for novel anticoagulants. She is not currently bleeding and H/H is stable post-procedure. 2. Acute on chronic hypoxic respiratory failure 2/2 pneumonia and subsequently PE. Cont oxygen supplementation as needed. Wean as tolerated 3. CAD s/p PCI to RCA in 2011. Stable. Cont med management with ASA and Toprol XL and anticoagulation. 4. Chronic diastolic heart failure. Compensated on exam. Cont daily Lasix. 5. h/o TAVR (bioprosthetic) 6. CKD III-at baseline. Renally dose medications and avoid nephrotoxic agents. 7. Anemia of chronic disease punctuated by periods of blood loss anemia-H/H stable, transfuse PRN. 8. Polyarthritis-cont chronic prednisone and Fentanyl 9. Chronic constipation-cont [place] and monitor. 10. Klebsiella UTI-pt reports recent Marcelo removal last week. She reports feeling that she "had UTI symptoms" in recent days. Klebsiella is present. Continue Keflex. DVT proph-heparin drip Full Code Dispo-await bridge to therapeutic coumadin level (INR 2-3) then plans for home with Home Health. Sis Mathur DO [facility] Hospitalist. Current Inpatient Medications: Current Inpatient Medications Medications (Trade) Dose Ordered Sig/Rosi Route Start Time Stop Time Status Last Admin Dose Admin Pantoprazole Sodium (Protonix Tab) 40 mg BID PO 10/05/17 21:00 12/04/17 20:59 11/04/17 20:39 40 MG Heparin Sodium (Porcine) (Heparin 10 Unit/ ml 5 ml Flush) 5 ml PRN PRN FLUSH 10/10/17 13:30 11/09/17 13:29 10/25/17 11:26 5 ML Furosemide (Lasix Tab) 40 mg QAM PO 10/11/17 09:00 11/10/17 08:59 11/04/17 08:01 40 MG Guaifenesin (Mucinex Contr Rel Tab) 600 mg Q12 PO 10/11/17 21:00 11/10/17 20:59 11/04/17 20:40 600 MG Senna/Docusate Sodium (Senokot S Tab) 1 tab QAM PO 10/14/17 09:00 11/13/17 08:59 11/04/17 08:04 1 TAB Senna (Senokot Tab) 8.6 mg QPM PO 10/13/17 21:00 11/12/17 20:59 11/04/17 20:39 8.6 MG Bisacodyl (Dulcolax Tab) 5 mg BID PRN PO 10/13/17 17:45 11/12/17 17:44 10/31/17 10:24 5 MG Benzocaine (Orajel 20% Oral Gel) 1 appln QID PRN MT 10/18/17 18:00 11/17/17 17:59 Fentanyl (Duragesic Patch) 12 mcg Q72H TD 10/21/17 13:30 11/18/17 13:28 11/02/17 13:46 12 MCG Miscellaneous (Fentanyl Patch Remove & Waste) 1 ea Q3D N/A 10/24/17 13:29 11/23/17 13:28 11/02/17 13:46 1 EA Miscellaneous Information (Check Fentanyl Patch Placement) 1 ea QS N/A 10/21/17 16:00 11/20/17 15:59 11/04/17 17:00 1 EA Menthol (Nice Jonnie) 1 jonnie PRN PRN JONNIE 10/22/17 23:15 4/21/18 23:14 Prednisone (PredniSONE TAB) 20 mg DAILY PO 10/25/17 09:00 11/24/17 08:59 11/04/17 08:01 20 MG Heparin Sodium/ Dextrose 500 ml @ 12 mls/hr Q24H IV 10/26/17 15:30 11/25/17 15:29 11/04/17 16:22 12 MLS/HR Morphine Sulfate (MoRPHine SULFATE INJ) 0.5 mg Q1H PRN IV 10/27/17 09:00 11/10/17 08:59 11/03/17 14:23 0.5 MG Oxycodone/ Acetaminophen (Percocet 5-325mg Tab) 1 tab Q4H PRN PO 10/31/17 10:30 11/14/17 10:29 11/04/17 20:35 1 TAB Bisacodyl (Dulcolax Supp) 10 mg DAILY PRN [place] 10/31/17 18:00 11/30/17 17:59 Sodium Biphosphate/ Sodium Phosphate (Fleet Enema) 132 ml DAILY PRN IL 10/31/17 18:00 11/30/17 17:59 Potassium Chloride (Klor-Con Tab) 20 meq BIDM PO 11/01/17 09:00 12/01/17 08:59 11/04/17 17:27 20 MEQ Metoprolol Succinate (Toprol Xl Tab) 12.5 mg BID PO 11/02/17 21:00 12/02/17 20:59 11/04/17 20:40 12.5 MG Lorazepam (Ativan Tab) 0.5 mg Q8H PRN PO 11/02/17 15:15 12/02/17 15:14 11/04/17 22:16 0.5 MG Mirtazapine (Remeron Solutab) 15 mg HS PO 11/03/17 21:00 12/03/17 20:59 11/04/17 20:36 15 MG Ranitidine HCl (zANTac TAB) 300 mg HS PO 11/03/17 21:00 12/03/17 20:59 11/04/17 20:40 300 MG Warfarin Sodium (Coumadin Tab) 2 mg DAILY@16 PO 11/03/17 16:00 12/03/17 15:59 11/04/17 17:27 2 MG Ferrous Sulfate (Feosol Tab) 325 mg DAILY@1200 PO 11/03/17 12:00 12/03/17 11:59 11/04/17 11:37 325 MG Ascorbic Acid (Vitamin C Tab) 500 mg DAILY@1200 PO 11/03/17 12:00 12/03/17 11:59 11/04/17 11:36 500 MG Lactobacillus Acidophilus (Floranex Tab) 1 tab TIDM PO 11/03/17 07:30 12/03/17 07:29 11/04/17 17:02 1 TAB Magnesium Oxide (Mag-Ox Tab) 400 mg DAILY@1200 PO 11/03/17 12:00 12/03/17 11:59 11/04/17 11:36 400 MG Gabapentin (Neurontin Cap) 100 mg QAM PO 11/03/17 09:00 12/03/17 08:59 11/04/17 08:03 100 MG Salmeterol Xinafoate/ Fluticasone (Advair Diskus 250/50 Inh) 1 puff BID INH 11/03/17 09:00 12/03/17 08:59 11/04/17 20:41 1 PUFF Paroxetine HCl (pAXil TAB) 40 mg QAM PO 11/03/17 09:00 12/03/17 08:59 11/04/17 08:00 40 MG Aspirin (Ecotrin Tab) 81 mg QAM PO 11/03/17 09:00 12/03/17 08:59 11/04/17 08:00 81 MG Ondansetron HCl (Zofran Odt) 4 mg Q6H PRN PO 11/03/17 10:30 12/03/17 10:29 11/04/17 22:42 4 MG Cephalexin Monohydrate (Keflex Cap) 250 mg BID PO 11/03/17 21:00 11/08/17 20:59 11/04/17 20:38 250 MG Polyethylene (Miralax Powder Packet) 17 gm DAILY PRN PO 11/04/17 13:30 12/04/17 13:29 Enteral Nutritional Formula (Boost Breeze Nutritional Drink) 1 box DAILY PO 11/05/17 08:00 12/05/17 07:59
[2017-11-05] MEDS: CHECK FENTANYL PATCH PLACEMENT SCH ×3 (00:02→16:35)
[2017-11-05 00:21] VITALS: BP 124/74; PULSE 78; TEMP 36.5; O2SAT 97
[2017-11-05 06:11] LABS: INR 2.3 (0.9-1.1)
[2017-11-05 07:12] VITALS: BP 125/56; PULSE 69; TEMP 36.5; O2SAT 100
[2017-11-05 07:38] LABS: PTT PATIENT 64.3 SECONDS (21.0-31.0)
[2017-11-05] MEDS: HEPARIN 25,000 UNIT/500ML D5W 500 ML IV SCH ×2 (07:58→12:39)
[2017-11-05] MEDS: BOOST BREEZE NUTRITION DRINK 1 BOX PO SCH (08:00)
[2017-11-05] MEDS: FLUTICASONE/SALMETEROL 250/50 (ADVAIR) 14 PUFF/1 INHALER INH SCH ×2 (09:04→20:27)
[2017-11-05] MEDS: PAROXETINE 20 MG TAB PO SCH (09:05)
[2017-11-05] MEDS: POTASSIUM CHLORIDE 20 MEQ TABCR PO SCH ×2 (09:05→16:37)
[2017-11-05] MEDS: FUROSEMIDE 40 MG TAB PO SCH (09:06)
[2017-11-05] MEDS: DOCUSATE SODIUM/SENNA 50/8.6MG TAB PO SCH (09:06)
[2017-11-05] MEDS: CEPHALEXIN MONOHYDRATE 250 MG CAP PO SCH ×2 (09:06→20:29)
[2017-11-05] MEDS: PANTOprazole SOD 40 MG TAB PO SCH ×2 (09:06→20:30)
[2017-11-05] MEDS: ASPIRIN 81 MG ECTAB PO SCH (09:06)
[2017-11-05] MEDS: LACTOBACILLUS ACIDOPHILUS (FLORANEX) TAB PO SCH ×3 (09:07→16:36)
[2017-11-05] MEDS: GUAIFENESIN 600 MG TABCR PO SCH ×2 (09:08→20:30)
[2017-11-05] MEDS: METOPROLOL SUCC 25MG EXT REL TAB PO SCH ×2 (09:09→20:28)
[2017-11-05] MEDS: GABAPENTIN 100 MG CAP PO SCH (09:11)
[2017-11-05] MEDS: OXYCODONE/ACETAMINOPHEN 5-325 TAB PO PRN ×3 (09:20→20:26)
[2017-11-05 12:15] VITALS: O2SAT 97
[2017-11-05] MEDS: MAGNESIUM OXIDE 400 MG TAB PO SCH (12:38)
[2017-11-05] MEDS: ASCORBIC ACID 500 MG TAB PO SCH (12:38)
[2017-11-05] MEDS: FERROUS SULFATE 325 MG TAB PO SCH (12:38)
[2017-11-05] MEDS: FENTANYL PATCH REMOVE & WASTE SCH (12:45)
[2017-11-05] MEDS: FENTANYL 12 MCG/HR TDSY TD SCH (12:47)
[2017-11-05 15:55] VITALS: BP 105/67; PULSE 76; TEMP 36.3; O2SAT 99
[2017-11-05 16:09] VITALS: O2SAT 97
[2017-11-05] MEDS: WARFARIN SOD 2 MG TAB PO SCH (16:38)
--- NOTE | 2017-11-05 18:06 | Progress Note ---
Medicine Progress Note Date & Time of Visit: Nov 05, 2017 at 16:39. Subjective 82 yo F initially presented with pneumonia whose clinical course was complicated by an acute PE. She is s/p IVC filter on 11/02 and is currently on heparin drip as bridge to warfarin. Breathing is improved. She denies chest pain. She denies any cough, fevers or chills. She has chronic constipation. Denies nausea or vomiting. Reports occasional heartburn. Spoke with son by phone who states we are a go for referral to [facility]. Patient agrees this is the most reasonable option with her son out of town all next week; her first week home after a prolonged hospitalization. Objective Last 8 Hrs Date Time Temp Pulse Resp B/P (MAP) Pulse Ox O2 Delivery O2 Flow Rate FiO2 11/05/17 15:55 36.3 76 22 105/67 (80) 99 Nasal Cannula 3.0 11/05/17 12:15 97 Nasal Cannula 3.0 Physical Exam: GEN: WNWD, in no acute distress, alert and appropriate, some conversational dyspnea noted but no respiratory distress. HEENT: NC/AT, normal sclerae. CARDIO: reg rate, S1/2 heard without m/g/r LUNGS: mild rhonchi at bases. Otherwise good airflow with good diaphragmatic excursion bilaterally ABD: soft, non-tender, non-distended, no rebound or guarding, +BS EXTREMITY: RP and DP palpable 2+ bilat, no LE swelling or edema, extremities are warm and well-perfused NEURO: CN 2-12 grossly intact, no gross focal deficits. MUSC: 5/5 strength throughout, no gross focal deficits SKIN: warm and dry Laboratory Results: 11/03/17 06:03 11/03/17 06:03 Test 10/02/17 17:47 10/02/17 20:30 10/08/17 06:18 10/08/17 07:22 Hypochromasia PRESENT Total Creatine Kinase 24 U/L (26-192) Creatine Kinase MB 1.0 ng/ml (0.5-3.6) Creatine Kinase MB Ratio 4.2 (0-3.0) Stool Occult Blood POSITIVE (NEGATIVE) Blood Gas Sample Site L Radial Bedside Blood Gas pH (LAB) 7.49 (7.35-7.45) Bedside Blood Gas pCO2 (LAB) 36 mmHg (35-46) Bedside Blood Gas pO2 (LAB) 48 mmHg (80-95) Bedside Blood Gas HCO3 (LAB) 27 meq/L (19-24) Bedside Blood Gas Total CO2 28 mEq/l (24-31) Bedside Blood Gas Base Excess (LAB) 4.0 meq/L (-9-1.8) Bedside Blood Gas O2 Saturation 87.0 % (90-95) Oxygen Delivery Device Other Bedside FiO2 0 % Pro-B-Type Natriuretic Peptide 1246 pg/ml (0-1800) Test 10/08/17 07:56 10/09/17 05:06 10/10/17 18:14 10/11/17 06:46 Arterial Blood pH 7.43 (7.35-7.45) Arterial Blood Partial Pressure CO2 42 mmHg (35-46) Arterial Blood Partial Pressure O2 81 mm/Hg (80-95) Arterial Blood HCO3 27 mmol/L (19-24) Arterial Blood Oxygen Saturation 96.0 % (90-95) Arterial Blood Base Excess 2.6 mEq/L (-9-1.8) Arterial Blood Gas Delivery FIO2 60% Hayden Test POS (POS) Dohle Bodies 1+ Ionized Calcium 1.27 mmol/l (1.12-1.32) Phosphorus Level 3.7 mg/dl (2.5-4.9) Influenza Type A (RT-PCR) Neg for Influ A (NEG) Influenza Type A Antigen Neg for Influ A (NEG) Influenza Type B Antigen Neg for Influ B (NEG) Influenza Type B (RT-PCR) Neg for Influ B (NEG) Lactic Acid Level 1.5 mmol/L (0.4-2.0) Random Vancomycin Level 19.5 mcg/ml Test 10/12/17 04:20 10/13/17 11:48 10/20/17 10:23 10/23/17 07:58 Globulin 3.8 gm/dl (2.5-4.0) Albumin/Globulin Ratio 0.6 (0.9-2) Vancomycin Level Trough 20.9 mcg/ml (SEE COMMENT) Procalcitonin 0.28 ng/ml (0-0.5) Magnesium Level 2.1 mg/dl (1.8-2.4) Test 10/27/17 05:39 10/31/17 07:00 11/01/17 10:00 11/02/17 06:23 Immature Granulocyte % (Auto) 0.5 % White Blood Count 16.61 K/uL (4.8-10.8) Red Blood Count 4.07 M/uL (4.2-5.4) Hemoglobin 12.0 g/dL (12.0-16.0) Hematocrit 37.5 % (37-47) Mean Corpuscular Volume 92.1 fL (80-100) Mean Corpuscular Hemoglobin 29.5 pg (25-34) Mean Corpuscular Hemoglobin Concent 32.0 g/dl (32-36) Platelet Count 297 K/uL (130-400) Mean Platelet Volume 9.4 fL (7.4-10.4) Neutrophils (%) (Auto) 78.9 % Lymphocytes (%) (Auto) 9.8 % Monocytes (%) (Auto) 10.7 % Eosinophils (%) (Auto) 0.1 % Basophils (%) (Auto) 0.0 % Neutrophils # (Auto) 13.12 K/uL (1.4-6.5) Lymphocytes # (Auto) 1.63 K/uL (1.2-3.4) Monocytes # (Auto) 1.77 K/uL (0.11-0.59) Eosinophils # (Auto) 0.01 K/uL (0-0.5) Basophils # (Auto) 0.00 K/uL (0-0.2) Immature Granulocyte # (Auto) 0.08 K/uL (0.00-0.02) Bedside Glucose 78 mg/dl (70-90) Urine Color YELLOW Urine Appearance TURBID (CLEAR) Urine pH 7.0 (4.5-7.5) Urine Specific [place] 1.009 (1.000-1.030) Urine Protein NEG (NEG) Urine Glucose (UA) NEG (NEG) Urine Ketones NEG (NEG) Urine Occult Blood 2+ (NEG) Urine Nitrite POS (NEG) Urine Bilirubin NEG (NEG) Urine Urobilinogen NEG (NEG) Urine Leukocyte Esterase LARGE (NEG) Urine WBC (Auto) >30 /hpf (0-5) Urine RBC (Auto) 0-4 /hpf (0-4) Urine Hyaline Casts (Auto) 1-5 /lpf (0-5) Urine Epithelial Cells (Auto) 5-10 /lpf (0-5) Urine Bacteria (Auto) 2+ (NEG) Urine Yeast (Auto) (NONE PRSENT) Total Bilirubin 0.3 mg/dl (0.2-1) Direct Bilirubin < 0.1 mg/dl (0-0.2) Aspartate Amino Transf (AST/SGOT) 34 U/L (15-37) Alanine Aminotransferase (ALT/SGPT) 60 U/L (12-78) Alkaline Phosphatase 108 U/L (45-117) Troponin I 0.154 ng/ml (0-0.045) Total Protein 5.9 gm/dl (6.4-8.2) Albumin 2.1 gm/dl (3.4-5.0) Lipase 87 U/L (73-393) Test 11/03/17 06:03 11/05/17 05:15 11/05/17 07:08 Red Blood Count 3.47 M/uL (4.2-5.4) Mean Corpuscular Volume 92.8 fL (80-100) Mean Corpuscular Hemoglobin 29.4 pg (25-34) Mean Corpuscular Hemoglobin Concent 31.7 g/dl (32-36) RDW Standard Deviation 56.9 fL (36.4-46.3) RDW Coefficient of Variation 16.9 % (11.5-14.5) Mean Platelet Volume 9.6 fL (7.4-10.4) Anion Gap 7.0 mmol/L (3-11) Est Creatinine Clear Calc Drug Dose 28.5 ml/min Estimated GFR () 48.1 Estimated GFR (Non- 41.5 BUN/Creatinine Ratio 21.0 (10-20) Calcium Level 10.0 mg/dl (8.5-10.1) Prothrombin Time 23.3 SECONDS (9.0-12.0) Prothromb Time International Ratio 2.3 (0.9-1.1) Activated Partial Thromboplast Time 64.3 SECONDS (21.0-31.0) Partial Thromboplastin Ratio 2.5 Date/Time Source Procedure Growth Status 10/10/17 15:00 Blood Blood Culture - Final NO GROWTH Complete 10/08/17 14:45 Nasal MRSA DNA Surveillance Screen - Final Specimen Positive for MRSA by DNA Probe Complete 10/02/17 20:30 Stool C.difficile Toxin B Gene (PCR) - Final No C. difficile toxin B gene detected Complete 10/11/17 16:50 Sputum Expectorated Sputum Gram Stain - Final Complete 10/11/17 16:50 Sputum Culture - Final Heather Albicans Yeast Not Heather Albicans Complete 11/01/17 00:00 Urine , Clean Catch Urine Culture - Final Klebsiella Pneumoniae Complete Last 24 Hours Test 11/04/17 22:04 11/05/17 05:15 11/05/17 07:08 Activated Partial Thromboplast Time 60.8 SECONDS 64.3 SECONDS Partial Thromboplastin Ratio 2.3 2.5 Prothrombin Time 23.3 SECONDS Prothromb Time International Ratio 2.3 Assessment & Plan 82 yo F initially presented with pneumonia whose clinical course was complicated by an acute PE. She is s/p IVC filter on 11/02 and is currently on heparin drip as bridge to warfarin. Breathing is improved. She denies chest pain. She denies any cough, fevers or chills. She has chronic constipation. Denies nausea or vomiting. Reports occasional heartburn. Spoke with son by phone who states we are a go for referral to [facility]. Patient agrees this is the most reasonable option with her son out of town all next week; her first week home after a prolonged hospitalization. 1. Acute pulmonary emboli-acute change in clinical status on 10/26 with CTA confirming bilat PE. Bilat DVT in legs were also noted. She has a h/o recurrent GI bleeding, transfusion dependent anemia and a recent episode of epistaxis. She continues on IV heparin and is being bridged to coumadin with INR 2.3 this morning. She is not a candidate for novel anticoagulants. She is not currently bleeding and H/H is stable post-procedure. Plan for stopping heparin once INR>2 in am and continuing on coumadin with INR goal 2-3. 2. Acute on chronic hypoxic respiratory failure 2/2 pneumonia and subsequently PE. Cont oxygen supplementation as needed. Wean as tolerated 3. CAD s/p PCI to RCA in 2011. Stable. Cont med management with ASA and Toprol XL and anticoagulation. 4. Chronic diastolic heart failure. Compensated on exam. Cont daily Lasix. 5. h/o TAVR (bioprosthetic) 6. CKD III-at baseline. Renally dose medications and avoid nephrotoxic agents. 7. Anemia of chronic disease punctuated by periods of blood loss anemia-H/H stable, transfuse PRN. 8. Polyarthritis-cont chronic prednisone and Fentanyl 9. Chronic constipation-cont Senekot and monitor. 10. Klebsiella UTI-pt reports recent Marcelo removal last week. She reports feeling that she "had UTI symptoms" in recent days. Klebsiella is present. Continue Keflex. DVT proph-heparin drip Full Code Dispo-await bridge to therapeutic coumadin level (INR 2-3) then plans for home with Home Health. DO [facility]. Current Inpatient Medications: Current Inpatient Medications Medications (Trade) Dose Ordered Sig/Rosi Route Start Time Stop Time Status Last Admin Dose Admin Pantoprazole Sodium (Protonix Tab) 40 mg BID PO 10/05/17 21:00 12/04/17 20:59 11/05/17 09:06 40 MG Heparin Sodium (Porcine) (Heparin 10 Unit/ ml 5 ml Flush) 5 ml PRN PRN FLUSH 10/10/17 13:30 11/09/17 13:29 11/05/17 06:19 5 ML Furosemide (Lasix Tab) 40 mg QAM PO 10/11/17 09:00 11/10/17 08:59 11/05/17 09:06 40 MG Guaifenesin (Mucinex Contr Rel Tab) 600 mg Q12 PO 10/11/17 21:00 11/10/17 20:59 11/05/17 09:08 600 MG Senna/Docusate Sodium (Senokot S Tab) 1 tab QAM PO 10/14/17 09:00 11/13/17 08:59 11/05/17 09:06 1 TAB Senna (Senokot Tab) 8.6 mg QPM PO 10/13/17 21:00 11/12/17 20:59 11/04/17 20:39 8.6 MG Bisacodyl (Dulcolax Tab) 5 mg BID PRN PO 10/13/17 17:45 11/12/17 17:44 10/31/17 10:24 5 MG Benzocaine (Orajel 20% Oral Gel) 1 appln QID PRN MT 10/18/17 18:00 11/17/17 17:59 Fentanyl (Duragesic Patch) 12 mcg Q72H TD 10/21/17 13:30 11/18/17 13:28 11/05/17 12:47 12 MCG Miscellaneous (Fentanyl Patch Remove & Waste) 1 ea Q3D N/A 10/24/17 13:29 11/23/17 13:28 11/05/17 12:45 1 EA Miscellaneous Information (Check Fentanyl Patch Placement) 1 ea QS N/A 10/21/17 16:00 11/20/17 15:59 11/05/17 16:35 1 EA Menthol (Nice Jonnie) 1 jonnie PRN PRN JONNIE 10/22/17 23:15 11/21/17 23:14 Prednisone (PredniSONE TAB) 20 mg DAILY PO 10/25/17 09:00 11/24/17 08:59 11/05/17 09:05 20 MG Heparin Sodium/ Dextrose 500 ml @ 12 mls/hr Q24H IV 10/26/17 15:30 11/25/17 15:29 11/05/17 07:58 12 MLS/HR Morphine Sulfate (MoRPHine SULFATE INJ) 0.5 mg Q1H PRN IV 10/27/17 09:00 11/10/17 08:59 11/03/17 14:23 0.5 MG Oxycodone/ Acetaminophen (Percocet 5-325mg Tab) 1 tab Q4H PRN PO 10/31/17 10:30 11/14/17 10:29 11/05/17 15:37 1 TAB Bisacodyl (Dulcolax Supp) 10 mg DAILY PRN IA 10/31/17 18:00 11/30/17 17:59 Sodium Biphosphate/ Sodium Phosphate (Fleet Enema) 132 ml DAILY PRN IA 10/31/17 18:00 11/30/17 17:59 Potassium Chloride (Klor-Con Tab) 20 meq BIDM PO 11/01/17 09:00 12/01/17 08:59 11/05/17 16:37 20 MEQ Metoprolol Succinate (Toprol Xl Tab) 12.5 mg BID PO 11/02/17 21:00 12/02/17 20:59 11/05/17 09:09 12.5 MG Lorazepam (Ativan Tab) 0.5 mg Q8H PRN PO 11/02/17 15:15 12/02/17 15:14 11/04/17 22:16 0.5 MG Mirtazapine (Remeron Solutab) 15 mg HS PO 4/3/18 21:00 12/03/17 20:59 11/04/17 20:36 15 MG Ranitidine HCl (zANTac TAB) 300 mg HS PO 11/03/17 21:00 12/03/17 20:59 11/04/17 20:40 300 MG Warfarin Sodium (Coumadin Tab) 2 mg DAILY@16 PO 11/03/17 16:00 12/03/17 15:59 11/05/17 16:38 2 MG Ferrous Sulfate (Feosol Tab) 325 mg DAILY@1200 PO 11/03/17 12:00 12/03/17 11:59 11/05/17 12:38 325 MG Ascorbic Acid (Vitamin C Tab) 500 mg DAILY@1200 PO 11/03/17 12:00 12/03/17 11:59 11/05/17 12:38 500 MG Lactobacillus Acidophilus (Floranex Tab) 1 tab TIDM PO 11/03/17 07:30 12/03/17 07:29 11/05/17 16:36 1 TAB Magnesium Oxide (Mag-Ox Tab) 400 mg DAILY@1200 PO 11/03/17 12:00 12/03/17 11:59 11/05/17 12:38 400 MG Gabapentin (Neurontin Cap) 100 mg QAM PO 11/03/17 09:00 12/03/17 08:59 11/05/17 09:11 100 MG Salmeterol Xinafoate/ Fluticasone (Advair Diskus 250/50 Inh) 1 puff BID INH 11/03/17 09:00 12/03/17 08:59 11/05/17 09:04 1 PUFF Paroxetine HCl (pAXil TAB) 40 mg QAM PO 11/03/17 09:00 12/03/17 08:59 11/05/17 09:05 40 MG Aspirin (Ecotrin Tab) 81 mg QAM PO 11/03/17 09:00 12/03/17 08:59 11/05/17 09:06 81 MG Ondansetron HCl (Zofran Odt) 4 mg Q6H PRN PO 11/03/17 10:30 12/03/17 10:29 11/04/17 22:42 4 MG Cephalexin Monohydrate (Keflex Cap) 250 mg BID PO 11/03/17 21:00 11/08/17 20:59 11/05/17 09:06 250 MG Polyethylene (Miralax Powder Packet) 17 gm DAILY PRN PO 11/04/17 13:30 12/04/17 13:29 Enteral Nutritional Formula (Boost Breeze Nutritional Drink) 1 box DAILY PO 11/05/17 08:00 12/05/17 07:59
[2017-11-05] MEDS: POLYETHYLENE (MIRALAX) 17 GM PACK PO PRN (20:25)
[2017-11-05] MEDS: ONDANSETRON 4MG OD TAB PO PRN (20:25)
[2017-11-05] MEDS: SENNA 8.6 MG TAB PO SCH (20:28)
[2017-11-05] MEDS: MIRTAZAPINE SOLTAB 15 MG PO SCH (20:28)
[2017-11-05] MEDS: RANITIDINE HCL 150 MG TAB PO SCH (20:30)
[2017-11-05] MEDS: LORAZEPAM 0.5 MG TAB PO PRN (20:35)
[2017-11-05 23:46] VITALS: BP 98/62; PULSE 77; TEMP 36.6; O2SAT 95
[2017-11-06 06:04] LABS: INR 2.5 (0.9-1.1)
[2017-11-06 06:05] LABS: PTT PATIENT 67.8 SECONDS (21.0-31.0)
[2017-11-06 08:17] VITALS: BP 92/65; PULSE 68; TEMP 36.5; O2SAT 94
[2017-11-06] MEDS: METOPROLOL SUCC 25MG EXT REL TAB PO SCH (09:00)
[2017-11-06] MEDS: CHECK FENTANYL PATCH PLACEMENT SCH ×3 (09:09→16:38)
[2017-11-06] MEDS: BOOST BREEZE NUTRITION DRINK 1 BOX PO SCH (09:09)
[2017-11-06] MEDS: DOCUSATE SODIUM/SENNA 50/8.6MG TAB PO SCH (09:11)
[2017-11-06] MEDS: GUAIFENESIN 600 MG TABCR PO SCH (09:11)
[2017-11-06] MEDS: FLUTICASONE/SALMETEROL 250/50 (ADVAIR) 14 PUFF/1 INHALER INH SCH (09:11)
[2017-11-06] MEDS: POTASSIUM CHLORIDE 20 MEQ TABCR PO SCH ×2 (09:12→16:45)
[2017-11-06] MEDS: ASPIRIN 81 MG ECTAB PO SCH (09:12)
[2017-11-06] MEDS: LACTOBACILLUS ACIDOPHILUS (FLORANEX) TAB PO SCH ×3 (09:12→16:39)
[2017-11-06] MEDS: PAROXETINE 20 MG TAB PO SCH (09:12)
[2017-11-06] MEDS: GABAPENTIN 100 MG CAP PO SCH (09:12)
[2017-11-06] MEDS: CEPHALEXIN MONOHYDRATE 250 MG CAP PO SCH (09:12)
[2017-11-06] MEDS: PANTOprazole SOD 40 MG TAB PO SCH (09:12)
[2017-11-06] MEDS: FUROSEMIDE 40 MG TAB PO SCH (09:12)
[2017-11-06] MEDS: ONDANSETRON 4MG OD TAB PO PRN (09:21)
[2017-11-06] MEDS: POLYETHYLENE (MIRALAX) 17 GM PACK PO PRN (10:22)
[2017-11-06] MEDS: ASCORBIC ACID 500 MG TAB PO SCH (12:34)
[2017-11-06] MEDS: MAGNESIUM OXIDE 400 MG TAB PO SCH (12:34)
[2017-11-06] MEDS: FERROUS SULFATE 325 MG TAB PO SCH (12:34)
[2017-11-06] MEDS ORDERED: CMD2 PO (14:59)
[2017-11-06] MEDS ORDERED: KFL250 PO (14:59)
[2017-11-06] MEDS ORDERED: OXYC-57 PO (15:02)
[2017-11-06] MEDS ORDERED: LORA0.5T12 PO (15:02)
--- NOTE | 2017-11-06 15:05 | Discharge Summary ---
Discharge Summary Date of Service Nov 06, 2017. Discharge Summary Admission Date: Oct 02, 2017 at 19:19 Discharge Date: Oct 26, 2017 Discharge Disposition: Rehab Medication Reconciliation New Medications: Cephalexin Monohydrate (Cephalexin) 250 Mg Cap 250 MG PO BID for 2 Days, #4 CAP Fentanyl (Fentanyl) 12 Mcg Tdsy 12 MCG TD Q72H, #2 PATCH Warfarin Sod (Coumadin) 2 Mg Tab 2 MG PO DAILY@16 for 30 Days, #30 TAB Continued Medications: Acetaminophen (Acetaminophen) 325 Mg Tab 650 MG PO PRN for Pain Albuterol Sulf (Proventil 0.083% 2.5MG/3ML) 2.5 Mg/3 Ml Nebu 2.5 MG INH QID PRN for SOB/Wheezing, EA Ascorbic Acid (Ascorbic Acid) 250 Mg Tab 250 MG PO DAILY Docusate Sodium (Colace) 100 Mg Cap 1 CAP PO BID for 30 Days, #60 CAP 1 Refill Ferrous Sulfate (Ferrous Sulfate) 325 Mg Tab 325 MG PO BID Fluticasone Prop/Salmeterol (Advair Diskus 250/50 60 Dose) 1 Ea Aerp 1 PUFF INH BID, INHALER PT ONLY USES NEEDED Furosemide (Lasix) 40 Mg Tab 40 MG PO DAILY, TAB Take 40mg daily. Take extra 1/2 tab for fluid accumulation or weight gain. Gabapentin (Neurontin) 100 Mg Cap 100 MG PO DAILY Home O2 Therapy (Oxygen) Gas 3 LITERS NA UD 2 liters HS and PRN Lactobacillus Acidophilus (Floranex) 1 Tab Tab 1 TAB PO TIDM, #90 TAB Lorazepam (Lorazepam) 0.5 Mg Tab 0.5 MG PO HS PRN for Insomnia for 7 Days, #7 TAB (This prescription has been renewed) Magnesium Oxide (Mag-Ox) 400 Mg Tab 400 MG PO DAILY, TAB Metoprolol Succinate (Metoprolol Succinate ER) 25 Mg Tabcr 12.5 MG PO BID Mirtazapine Soltab (Remeron Soltab) 15 Mg Soltab 15 MG PO HS, TAB Multiple Vitamin (Multivitamin) 1 Tab Tab 0.5 TABLET PO DAILY for 30 Days take with supper Ondansetron Hcl (Zofran) 4 Mg Tab 4 MG PO Q6 PRN for Nausea, TAB Oxycodone/Acetaminophen 5MG/325MG (Percocet 5MG/325MG) Tab 1 TABLET PO Q8H PRN for Pain for 7 Days, #15 TAB (This prescription has been renewed) Pantoprazole (Protonix) 40 Mg Tab 40 MG PO BID, #60 TAB Paroxetine (Paroxetine HCl) 40 Mg Tab 40 MG PO DAILY Polyethylene (Miralax) 17 Gm Pow 17 GM PO DAILY PRN for Constipation, #1 BTL Potassium Chloride (Potassium Chloride Er) 10 Meq Cap 10 MEQ PO BID for 90 Days, #180 CAP 1 Refill Prednisone (Prednisone) 5 Mg Tab 5 MG PO DAILY, TAB Ranitidine (Zantac) 300 Mg Tab 300 MG PO HS, TAB Senna (Senokot) 8.6 Mg Tab 1 TAB PO BID, TAB Discontinued Medications: Fentanyl (Fentanyl) 25 Mcg Tdsy 25 MCG TOP [id number] Warfarin Sodium (Coumadin) 3 Mg Tab 3 MG PO DAILY, TAB Per coag clinic: 2 mg daily Admission Information HPI (per Admitting provider): This is an 82yo F with a PMH of recurrent PE (on coumadin), CAD s/p stent, diastolic CHF, aortic stenosis (s/p TAVR with bioprosthetic valve in 2016), HTN , h/o c diff and other problems listed below who presents with SOB and generalized weakness x 1 week. Patient has a complex history of recurrent PEs ( for which she is on coumadin) as well as chronic melanotic stool and anemia ( baseline hgb ~ 8-9). Patient was last admitted earlier in September for epistaxis and coumadin was held. Bleeding spontaneously resolved but vascular surgery was consulted for evaluation of IVC filter placement due to problems with recurrent bleeding. Vascular determined that PE appears chronic and did not recommend IVC filter placement. Patient was discharged home and resumed coumadin a few days later. Over the past week, patient has been experiencing lightheadedness, SOB and generalized weakness. Worse with exertion. Denies any falls, near-syncope or chest pain. Also complains of intermittent melanotic stool over the past month that is liquid-soft in character. Had 2 episodes yesterday and 1 today. Has intermittent cramping in upper abdomen as well as nausea. No vomiting. Went to clinic today for lightheadedness and SOB and Hgb found to be 7.7. Was sent to ER for further evaluation. Is well known to GI service. Last EGD was performed in Aug 2015 and showed mild inflammation, tortuous esophagus and paraesophageal hernia. Physical Exam (per Admitting): General Appearance: WD/WN, no apparent distress, + pertinent finding (Lying comfortably. +pallor ) Head: normocephalic, atraumatic Eyes: normal inspection, PERRL, sclerae normal ENT: normal ENT inspection, hearing grossly normal, pharynx normal Neck: supple, thyroid normal, trachea midline Respiratory/Chest: chest non-tender, lungs clear, no respiratory distress, no accessory muscle use, + crackles (bibasilar ) Cardiovascular: regular rate, rhythm, normal peripheral pulses, + systolic murmur Abdomen/GI: non tender, soft, no organomegaly Back: normal inspection Extremities/Musculoskelatal: normal inspection, no calf tenderness, no pedal edema Neurologic/Psych: no motor/sensory deficits, alert, normal mood/affect, oriented x 3 Skin: normal color, warm/dry Hospital Course 82 yo F initially presented with pneumonia whose clinical course was complicated by an acute PE. She is s/p IVC filter on 11/02 and is currently on heparin drip as bridge to warfarin. Breathing is improved. She denies chest pain. She denies any cough, fevers or chills. She has chronic constipation. Denies nausea or vomiting. Reports occasional heartburn. Spoke with son by phone who states we are a go for referral to [facility]. Patient agrees this is the most reasonable option with her son out of town all next week; her first week home after a prolonged hospitalization. 1. Acute pulmonary emboli-acute change in clinical status on 10/26 with CTA confirming bilat PE. Bilat DVT in legs were also noted. She has a h/o recurrent GI bleeding, transfusion dependent anemia and a recent episode of epistaxis. She continues on IV heparin and is being bridged to coumadin with INR 2.3 this morning. She is not a candidate for novel anticoagulants. She is not currently bleeding and H/H is stable post-procedure. Plan for stopping heparin once INR>2 in am and continuing on coumadin with INR goal 2-3. 2. Acute on chronic hypoxic respiratory failure 2/2 pneumonia and subsequently PE. Cont oxygen supplementation as needed. Wean as tolerated 3. CAD s/p PCI to RCA in 2011. Stable. Cont med management with ASA and Toprol XL and anticoagulation. 4. Chronic diastolic heart failure. Compensated on exam. Cont daily Lasix. 5. h/o TAVR (bioprosthetic) 6. CKD III-at baseline. Renally dose medications and avoid nephrotoxic agents. 7. Anemia of chronic disease punctuated by periods of blood loss anemia-H/H stable, transfuse PRN. 8. Polyarthritis-cont chronic prednisone and Fentanyl 9. Chronic constipation-cont Senekot and monitor. 10. Klebsiella UTI-pt reports recent Marcelo removal last week. She reports feeling that she "had UTI symptoms" in recent days. Klebsiella is present. Continue Keflex. DVT proph-heparin drip Full Code Dispo-await bridge to therapeutic coumadin level (INR 2-3) then plans for home with Home Health. Sis Mathur DO [facility] Hospitalist. Total time spent on discharge = 60 MINUTES This includes examination of the patient, discharge planning, medication reconciliation, and communication with other providers. [place] [address] Discharge Transfer Non-Acute Patient Name: Yany Conley Unit Number: [id number] Date of : 1935 Patient Status: Admitted Inpatient Attending Doctor: Sis Mathur DO DI: Transfer Non Acute v4 Discharge Instructions Date of Service Oct 26, 2017. Admission Reason for Admission: Anemia, Dyspnea, Weakness Discharge Discharge Diagnosis / Problem: Anemia, Respiratory failure, aspiration pneumonia Discharge Goals Goal(s): Therapeutic intervention Activity Recommendations Activity Level: Assistance Required Therapies: Physical Therapy, Occupational Therapy . Additional Information Patient informed of condition: Yes Advance Directives: Yes DNR: No Level of Care: Acute Rehab Communicable Disease: Yes Prognosis: Stable Oxygen at (LPM): 2-4L Marcelo Catheter: No Instructions / Follow-Up Instructions / Follow-Up Please follow up with Primary care physician, Pulmonary, and GI upon discharge from [facility]. Current Hospital Diet Patient's current hospital diet: Regular Diet Discharge Diet Recommended Diet: Regular Diet Procedures Procedures Performed: EGD with biopsy Pending Studies Studies pending at discharge: no Physician Orders On Transfer Special Precautions: Please weigh patient daily; please check labs in 3 days to monitor BMP and CBC; patient has a tendency to desaturate quickly related to volume overload and sometimes with anxiety; patient has chronic black stools (on iron and chronic small intestinal bleed); patient is generally transfused to keep Hemoglobin at 9 Medical Emergencies . Who to Call and When: Medical Emergencies: If at any time you feel your situation is an emergency, please call 911 immediately. . Non-Emergent Contact Non-Emergency issues call your: Primary Care Provider . . "Provider Documentation" section prepared by Cara Alonzo. . Core Measure Problem Core Measures: None Additional Copies To Zaire Inman M.D.
[2017-11-06 16:11] VITALS: BP 92/65; PULSE 68; TEMP 36.5; O2SAT 94
[2017-11-06] MEDS ORDERED: DRGTP12 TD (16:17)
[2017-11-06] MEDS: OXYCODONE/ACETAMINOPHEN 5-325 TAB PO PRN (16:39)
[2017-11-06] MEDS: WARFARIN SOD 2 MG TAB PO SCH (16:44)
== END 2017-11-06 19:05 | DRG 377 ==
LOC: C.EDB 17:11 → C.2T 19:19 → ENRESERV 19:34 → C.MS2W 10-06 10:24 → ENRESERV 10-06 11:01 → CMPBEDREQ 10-06 12:17 → C.2T 10-08 06:41 → C.MSICU 10-08 13:56 → ENRESERV 10-09 14:00 → C.2T 10-09 15:16 → ENRESERV 10-13 12:16 → C.MS2W 10-13 13:21 → CANRESERV 10-26 15:25 → ENRESERV 10-26 15:25 → C.2T 10-26 19:23 → ENRESERV 10-31 17:43 → C.2T 10-31 17:44 → ENRESERV 11-04 11:54 → C.MS4W 11-04 13:16
PROVIDERS: ADMIT Hospitalist; ATTEND Hospitalist
PROC: 0DB58ZX Excision of Esophagus, Via Natural or Artificial Opening Endoscopic, Diagnostic (ICD-10-PCS; principal; 2017-10-05 10:15)
DX: K92.2 Gastrointestinal hemorrhage, unspecified (principal); I26.99 Other pulmonary embolism without acute cor pulmonale; J96.01 Acute respiratory failure with hypoxia; R65.20 Severe sepsis without septic shock; J69.0 Pneumonitis due to inhalation of food and vomit; A41.9 Sepsis, unspecified organism; D68.2 Hereditary deficiency of other clotting factors; I50.30 Unspecified diastolic (congestive) heart failure; N17.9 Acute kidney failure, unspecified; D62 Acute posthemorrhagic anemia; N39.0 Urinary tract infection, site not specified; N18.3 Chronic kidney disease, stage 3 (moderate); J84.10 Pulmonary fibrosis, unspecified; M13.0 Polyarthritis, unspecified; K44.9 Diaphragmatic hernia without obstruction or gangrene; K22.8 Other specified diseases of esophagus; J44.9 Chronic obstructive pulmonary disease, unspecified; F32.9 Major depressive disorder, single episode, unspecified; B96.1 Klebsiella pneumoniae [K. pneumoniae] as the cause of diseases classified elsewhere; I25.10 Atherosclerotic heart disease of native coronary artery without angina pectoris; Z95.2 Presence of prosthetic heart valve; I11.0 Hypertensive heart disease with heart failure; Z95.5 Presence of coronary angioplasty implant and graft; Z87.440 Personal history of urinary (tract) infections; Z85.44 Personal history of malignant neoplasm of other female genital organs; K58.9 Irritable bowel syndrome, unspecified; K31.84 Gastroparesis; Z83.3 Family history of diabetes mellitus; Z82.49 Family history of ischemic heart disease and other diseases of the circulatory system; Z79.01 Long term (current) use of anticoagulants; Z88.8 Allergy status to other drugs, medicaments and biological substances; Z88.2 Allergy status to sulfonamides; Z88.1 Allergy status to other antibiotic agents

== ENCOUNTER 2017-11-09 07:58 | Inpatient (IN) | payer OTHER, BC ==
[~2017-11-09] VITALS: Ht 162.6 cm; Wt 59.0 kg
[2017-11-09] VITALS (8 sets, daily range): BP systolic 99–127; BP diastolic 62–75; PULSE 88–100; TEMP 36.5–37; O2SAT 90–99; Ht 162.6 cm; Wt 59.0 kg
[~2017-11-09 07:58] MED LIST changes: -CIPR250T3 PO; +CMD2 PO; +DRGTP12 TD; -FNTTP25 TOP; -FURO-85 PO; +FURO40TA3 PO; +KFL250 PO; +PRED-301 PO; +RANI300T2 PO; -TRIA1SPR4 NAE; -WARF1TAB6 PO
[2017-11-09] MEDS ORDERED: ALBUT/IPRATROP 3MG/0.5MG NEB 3 ML VIAL INH STA (08:45)
[2017-11-09 09:39] LABS: BASO % 0.1 %; BASO ABS # 0.02 K/uL (0-0.2); EOS % 1.3 %; EOS ABS # 0.25 K/uL (0-0.5); HEMATOCRIT 34.4 % (37-47); IG# 0.07 K/uL (0.00-0.02); LYMPH % 8.1 %; LYMPH ABS # 1.56 K/uL (1.2-3.4); MEAN CELL VOLUME 93.2 fL (80-100); MEAN CORPUSCULAR HEMOGLOBIN 29.8 pg (25-34); MEAN PLATELET VOLUME 9.9 fL (7.4-10.4); MONO ABS # 1.34 K/uL (0.11-0.59); NEUT % 83.1 %; PLATELET COUNT 332 K/uL (130-400); RED CELL DISTRIBUTION WIDTH CV 16.7 % (11.5-14.5); RED CELL DISTRIBUTION WIDTH SD 57.3 fL (36.4-46.3); WHITE BLOOD COUNT 19.24 K/uL (4.8-10.8)
[2017-11-09 09:50] LABS: INR 2.3 (0.9-1.1); PTT PATIENT 35.6 SECONDS (21.0-31.0)
[2017-11-09 09:54] LABS: CREATININE 1.79 mg/dl (0.60-1.20)
[2017-11-09 09:55] LABS: CALCIUM 10.4 mg/dl (8.5-10.1); POTASSIUM 3.8 mmol/L (3.5-5.1)
[2017-11-09 10:03] LABS: TOTAL PROTEIN 7.3 gm/dl (6.4-8.2)
[2017-11-09] MEDS ORDERED: FAMO20TA11 PO (10:11)
[2017-11-09] MEDS ORDERED: FLUT1INH INH (10:11)
[2017-11-09] MEDS ORDERED: BISA1TAB15 PO (10:11)
[2017-11-09] MEDS ORDERED: SODIENE PR (10:11)
[2017-11-09] MEDS ORDERED: MOML PO (10:11)
--- NOTE | 2017-11-09 10:35 | DIAGNOSTIC IMAGING REPORT ---
CHEST 2 VIEWS ROUTINE HISTORY: 82 years-old Female EVALUATE RESPIRATORY DISTRESS.DYSPNEA acute respiratory distress COMPARISON: Chest radiograph 11/01/2017 TECHNIQUE: AP and lateral views of the chest FINDINGS: Cardiac silhouette is again enlarged. Atherosclerosis of the aorta. Endograft of the aorta redemonstrated. Mild pulmonary vascular congestion with patchy bilateral alveolar opacities. Mild blunting of the costophrenic angles suggests trace effusions. Interval removal of the left-sided PICC. No pneumothorax. IVC filter of the upper abdomen is noted. Levoscoliosis of the thoracolumbar spine. The bones appear grossly intact. IMPRESSION: 1. Cardiomegaly with mild pulmonary vascular congestion and trace bilateral pleural effusions. 2. Patchy bilateral alveolar opacities are suspicious for superimposed pneumonia. 3. Interval removal of the left-sided PICC. The above report was generated using voice recognition software. It may contain grammatical, syntax or spelling errors. Electronically signed by: Joshua Feng M.D. 11/09/2017 10:34 AM Dictated Date/Time: 11/09/2017 10:31 AM
[2017-11-09] MEDS ORDERED: CEFEPIME IV 2,000 MG in SYRINGE 7.5 ML IV ONE (11:45)
[2017-11-09] MEDS ORDERED: VANCOMYCIN IV 1,250 MG in SODIUM CHLORIDE 0.9% 250ML 250 ML IV ONE (12:00)
[2017-11-09] MEDS ORDERED: ONDANSETRON INJ 2 MG/ML 2 ML VIAL IV PRN (13:00)
[2017-11-09] MEDS ORDERED: ACETAMINOPHEN 325 MG TAB PO PRN (13:00)
[2017-11-09] MEDS ORDERED: BISA10SU38 PR (13:15)
[2017-11-09] MEDS ORDERED: DOCU-94 PO (13:15)
[2017-11-09] MEDS ORDERED: VANCOMYCIN CONSULT ACTIVE PRN (13:21)
--- NOTE | 2017-11-09 13:29 | History and Physical ---
History & Physical Date & Time of Service: Nov 09, 2017 at 13:29 Chief Complaint: Respiratory Primary Care Physician: Myrna Inman M.D. 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 Patient was recently hospitalized from October 02- November 06 for bilateral pneumonia (treated with vanco imipenem and doxy). Course was complicated by acute bilateral PEs and an IVC filter was placed by Dr. Phan on 11/02. Patient was bridged to coumadin and discharged to [facility] on 2L NC O2. Patient states that she felt fine for the first 2 days after discharge but began to feel SOB beginning yesterday. Also endorses increased fatigue. Oxygen was increased from 2L-4L, and SOB improved, per patient. Denies any fever, chills, lightheadedness, visual changes, cough, sore throat, chest pain, orthopnea, PND , abdominal pain, nausea, vomiting, dysuria, constipation or LE swelling. Endorses a few episodes of diarrhea beginning yesterday. Also states that she has a sore on her backside that has been increasingly painful. Recently completed a course of Keflex for a UTI that was diagnosed during previous admission. In the ED, was found to have a leukocytosis of 19 (was discharged with a wbc count of 9). Hgb is slightly improved from baseline at 11. INR is therapeutic at 2.3. Cr is slightly elevated at 1.79 (Cr baseline low-mid 1s). Past Medical/Surgical History Medical Problems: (1) Anemia Status: Chronic (2) Angiectasia Permanent Comment: on colonoscopy 05/2013 Status: Chronic (3) Aortic stenosis Permanent Comment: moderately severe by echo December 2013 Status: Chronic (4) Basal cell carcinoma Permanent Comment: s/p MOHS surgery Status: Resolved (5) Benign hypertension Status: Chronic (6) CAD (coronary artery disease) Permanent Comment: s/p RCA stent 2011 Status: Chronic (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 Status: Chronic (8) CKD (chronic kidney disease) stage 3, GFR 30-59 ml/min Status: Chronic (9) Depression Status: Chronic (10) Diverticulosis Colon (W/O Ment Of Hemorrhage) Status: Chronic (11) Dyslipidemia Status: Chronic (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, 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 Status: Chronic (13) Falls Status: Chronic (14) Gastroparesis Status: Chronic (15) GERD (gastroesophageal reflux disease) Status: Chronic (16) Hiatal hernia Status: Chronic (17) History of acute minda lesion Permanent Comment: 06/2013 Status: Chronic (18) History of endometrial cancer Permanent Comment: s/p radiation and total hysterectomy Status: Chronic (19) History of GI bleed Status: Chronic (20) History of pulmonary embolism Permanent Comment: x 2 Status: Chronic (21) IBS (irritable bowel syndrome) Status: Chronic (22) Obstructive lung disease Status: Chronic (23) Osteoporosis Status: Chronic (24) Polyarthritis Permanent Comment: on chronic prednisone Status: Chronic (25) Recurrent UTI Status: Chronic (26) Temporal arteritis Status: Chronic Surgical Problems: (1) Hx of cystoscopy Status: Chronic (2) S/P left knee arthroscopy Status: Chronic (3) S/P TAVR (transcatheter aortic valve replacement) Permanent Comment: 2016: due to severe aortic stenosis. Bioprosthetic valve Status: Chronic (4) Status post cataract extraction Status: Chronic (5) Status post coronary artery stent placement Status: Chronic (6) Status post hysterectomy Status: Chronic Family History Cancer Diabetes mellitus FH: cardiovascular disease MOTHER Gallbladder disease Hypertension Social History Smoking Status: Never Smoker Drug Use: none Marital Status: Housing status: lives alone Occupational Status: retired Immunizations History of Influenza Vaccine: Yes Influenza Vaccine Date: Apr 18, 2016 History of Tetanus Vaccine?: Yes Tetanus Immunization Date: Nov 27, 2008 History of Pneumococcal: Yes Pneumococcal Date: Apr 21, 2016 History of Hepatitis B Vaccine: Yes Allergies Coded Allergies: Cefdinir (Verified Allergy, Mild, RASH-HAS HAD ROCEPHIN,CEFEPIME MANY TIMES, 11/09/17) Clonazepam (Verified Allergy, Unknown, ., 11/09/17) Levofloxacin (Verified Allergy, Unknown, unknown, 11/09/17) Sulfasalazine (Verified Allergy, Unknown, ., 11/09/17) Metoclopramide (Verified Adverse Reaction, Intermediate, TREMORS, 11/09/17) Home Medications Scheduled Ascorbic Acid (Ascorbic Acid), 250 MG PO DAILY Famotidine (Pepcid), 20 MG PO DAILY Fentanyl (Fentanyl), 12 MCG TD Q72H Ferrous Sulfate (Ferrous Sulfate), 325 MG PO BID Fluticasone Furoate-Vilanterol (Breo Ellipta), 1 PUFF INH DAILY Furosemide (Lasix), 40 MG PO DAILY Gabapentin (Neurontin), 100 MG PO DAILY Home O2 Therapy (Oxygen), 3 LITERS NA UD Lactobacillus Acidophilus (Floranex), 1 TAB PO TIDM Magnesium Oxide (Mag-Ox), 400 MG PO DAILY Metoprolol Succinate (Metoprolol Succinate ER), 12.5 MG PO BID Multiple Vitamin (Multivitamin), 0.5 TABLET PO DAILY Pantoprazole (Protonix), 40 MG PO BID Paroxetine (Paroxetine HCl), 40 MG PO DAILY Potassium Chloride (Potassium Chloride Er), 10 MEQ PO BID Prednisone (Prednisone), 5 MG PO DAILY Warfarin Sod (Coumadin), 2 MG PO DAILY@16 Scheduled PRN Acetaminophen (Acetaminophen), 650 MG PO for Pain Albuterol Sulf (Proventil 0.083% 2.5MG/3ML), 2.5 MG INH QID PRN for SOB/Wheezing Bisacodyl (Dulcolax), 1 SUPP MT DAILY PRN for Constipation Docusate Sodium (Colace), 1 CAP PO BID PRN for Constipation Lorazepam (Lorazepam), 0.5 MG PO HS PRN for Insomnia Magnesium Hydroxide (Milk Of Magnesia), 30 ML PO DAILY PRN for Constipation Ondansetron Hcl (Zofran), 4 MG PO Q6 PRN for Nausea Oxycodone/Acetaminophen 5MG/325MG (Percocet 5MG/325MG), 1 TABLET PO Q8H PRN for Pain Polyethylene (Miralax), 17 GM PO DAILY PRN for Constipation Senna (Senokot), 1 TAB PO DAILY PRN for Constipation Sodium Phosphate/Biphosphate (Fleet Enema), 1 EA MT DAILY PRN for Constipation Review of Systems Ten systems reviewed and negative except as noted in the HPI. Physical Exam Vital Signs Date Time Temp Pulse Resp B/P (MAP) Pulse Ox O2 Delivery O2 Flow Rate FiO2 11/09/17 13:13 105 21 108/57 94 Nasal Cannula 2.0 11/09/17 12:16 101 22 115/78 95 11/09/17 10:48 99 21 121/71 96 Nasal Cannula 2.0 11/09/17 09:35 93 21 114/61 98 Nebulizer 11/09/17 08:15 98 Nasal Cannula 2.0 11/09/17 08:14 36.7 93 24 131/67 98 Nasal Cannula 2.0 11/09/17 08:11 94 Room Air 11/09/17 08:11 98 Nasal Cannula 2.0 11/09/17 08:09 98 General Appearance: no apparent distress, + pertinent finding (Chronically ill- appearing) Head: normocephalic, atraumatic Eyes: normal inspection, PERRL, sclerae normal ENT: normal ENT inspection, hearing grossly normal, pharynx normal (Dry mucous membranes) Neck: supple, thyroid normal, trachea midline Respiratory/Chest: chest non-tender, no respiratory distress, no accessory muscle use, + decreased breath sounds, + crackles (Bibasilar), + pertinent finding (Saturating well on 2L NC) Cardiovascular: regular rate, rhythm, no murmur, normal peripheral pulses Abdomen/GI: non tender, soft, no organomegaly Extremities/Musculoskelatal: normal inspection, no calf tenderness, no pedal edema Neurologic/Psych: no motor/sensory deficits, alert, normal mood/affect, oriented x 3 Skin: normal color, warm/dry, + pertinent finding (Sacral pressure ulcer) Diagnostics Laboratory Results Results Past 24 Hours Test 11/09/17 09:24 Range/Units White Blood Count 19.24 4.8-10.8 K/uL Red Blood Count 3.69 4.2-5.4 M/uL Hemoglobin 11.0 12.0-16.0 g/dL Hematocrit 34.4 37-47 % Mean Corpuscular Volume 93.2 80-100 fL Mean Corpuscular Hemoglobin 29.8 25-34 pg Mean Corpuscular Hemoglobin Concent 32.0 32-36 g/dl Platelet Count 332 130-400 K/uL Mean Platelet Volume 9.9 7.4-10.4 fL Neutrophils (%) (Auto) 83.1 % Lymphocytes (%) (Auto) 8.1 % Monocytes (%) (Auto) 7.0 % Eosinophils (%) (Auto) 1.3 % Basophils (%) (Auto) 0.1 % Neutrophils # (Auto) 16.00 1.4-6.5 K/uL Lymphocytes # (Auto) 1.56 1.2-3.4 K/uL Monocytes # (Auto) 1.34 0.11-0.59 K/uL Eosinophils # (Auto) 0.25 0-0.5 K/uL Basophils # (Auto) 0.02 0-0.2 K/uL RDW Standard Deviation 57.3 36.4-46.3 fL RDW Coefficient of Variation 16.7 11.5-14.5 % Immature Granulocyte % (Auto) 0.4 % Immature Granulocyte # (Auto) 0.07 0.00-0.02 K/uL Prothrombin Time 24.1 9.0-12.0 SECONDS Prothromb Time International Ratio 2.3 0.9-1.1 Activated Partial Thromboplast Time 35.6 21.0-31.0 SECONDS Partial Thromboplastin Ratio 1.4 Sodium Level 135 136-145 mmol/L Potassium Level 3.8 3.5-5.1 mmol/L Chloride Level 95 98-107 mmol/L Carbon Dioxide Level 31 21-32 mmol/L Anion Gap 9.0 3-11 mmol/L Blood Urea Nitrogen 43 7-18 mg/dl Creatinine 1.79 0.60-1.20 mg/dl Est Creatinine Clear Calc Drug Dose 20.2 ml/min Estimated GFR () 29.6 Estimated GFR (Non- 25.6 BUN/Creatinine Ratio 24.2 10-20 Random Glucose 94 70-99 mg/dl Calcium Level 10.4 8.5-10.1 mg/dl Total Bilirubin 0.4 0.2-1 mg/dl Aspartate Amino Transf (AST/SGOT) 25 15-37 U/L Alanine Aminotransferase (ALT/SGPT) 33 12-78 U/L Alkaline Phosphatase 116 45-117 U/L Total Creatine Kinase 42 26-192 U/L Creatine Kinase MB 3.0 0.5-3.6 ng/ml Creatine Kinase MB Ratio 7.1 0-3.0 Troponin I 0.195 0-0.045 ng/ml Pro-B-Type Natriuretic Peptide 2340 0-1800 pg/ml Total Protein 7.3 6.4-8.2 gm/dl Albumin 3.0 3.4-5.0 gm/dl Globulin 4.3 2.5-4.0 gm/dl Albumin/Globulin Ratio 0.7 0.9-2 Microbiology Results 11/09/17 Blood Culture, Received Pending 11/09/17 Blood Culture, Received Pending Diagnostic Radiology Chest x-ray: IMPRESSION: 1. Cardiomegaly with mild pulmonary vascular congestion and trace bilateral pleural effusions. 2. Patchy bilateral alveolar opacities are suspicious for superimposed pneumonia. 3. Interval removal of the left-sided PICC. EKG Sinus rhythm with occasional Premature ventricular complexes at 100 bpm Left axis deviation, Left ventricular hypertrophy with repolarization abnormality (previous noted) Nonspecific T wave abnormality now evident in Lateral leads Impression Assessment and Plan This is an 82yo F with a PMH of recurrent PE (on coumadin), CAD (s/p stent), diastolic CHF, aortic stenosis (s/p TAVR with bioprosthetic valve in 2015), HTN , h/o c diff and other problems listed below who presents with worsening SOB x 2 days. SOB 2/2 subacute bilateral PEs, possible HCAP PNA, possible [id number] diastolic CHF: -PEs diagnosed 10/26. S/p IVC filter placement. Continue coumadin -Leukocytosis of 19 (was discharged with a wbc count of 9) -CXR with patchy bilateral alveolar opacities are suspicious for superimposed PNA -Recently treated with vanco, imipenem and doxy on previous admission -Vanco and cefepime initiated empirically in ED -Plan to continue -ID consulted. Appreciate recs -Blood cultures pending -CXR also with cardiomegaly with mild pulmonary vascular congestion and trace bilateral pleural effusions -Recent October 2017 echo with preserved EF ~70% -BNP elevated to 2340 -Strict I&Os, daily weights -Lasix 40mg IV x 1 -Supplemental O2 -Monitor on telemetry Recent UTI: -Klebsiella infection, treated with keflex -No reported urinary symptoms currently -Repeat UA, cx pending Diarrhea: -For past 2 days, following keflex tx -Prune juice, milk of mag and senna last night for constipation -Continue monitoring Elevated troponin: -Mild elevation at 0.185 -H/o elevated troponin on previous admission -No chest pain, new ischemic changes on EKG -Likely 2/2 R heart strain from PNA, PEs -Trend troponin MYRTLE on chronic CKD III: -Poor PO intake x 2 days -Cr elevated to 1.79 (baseline low-mid 1s) -GFR usually ~40, 25 today -Avoid nephrotoxic agents when able -Monitor BMP Sacral pressure ulcer: -Treated with optifoam -Wound care nurse consulted -Culture pending -Repositioning q2H CAD: -S/p stents in 2012 -Stable -Cont medical mgmt Aortic stenosis: -S/p TAVR with bioprosthetic valve in 2016 Anemia of chronic disease: -Hgb of 11 -Slightly improved from baseline -Cont iron supplements Polyarthritis: -Cont chronic prednisone, fentanyl patch, gabapentin, percocet PRN DVT Ppx: continue home dose coumadin Code status: FULL code but NO MECH VENT per discussion with patient PCP: Henny Dispo: Observation telemetry. Discharge planning ordered. Patient seen in collaboration with Dr. Mathur. Please see addendum. ADDENDUM: I have seen and examined the patient and agree with the assessment and plan as above. She appears more weak and fatigued than she did when she left. She does not endorse any coughing, fevers, or chills but reports the SOB was somewhat worse yesterday. Although she reported some loose stools she had multiple laxatives at the rehab facility yesterday. Plan as above. Some worsened pain for OA for which Ultram was given. Elevated troponin likely 2/2 heart strain from pulmonary emboli in setting of valvular disease and possible acute infection. May consider consultation with Cardiology if she declines. Kevan DO Resuscitation Status VTE Prophylaxis Will order VTE Prophylaxis: Yes
[2017-11-09] MEDS ORDERED: CEFEPIME CONSULT ACTIVE PRN (13:30)
[2017-11-09] MEDS ORDERED: MAGNESIUM HYDROXIDE SUSP 30 ML UDC PO PRN (13:30)
--- NOTE | 2017-11-09 13:33 | EMERGENCY ROOM VISIT NOTE ---
History Report prepared by Henrique: Mateo Mckinney Under the Supervision of: Rodrigo JacobsO. First contact with patient: 08:28 Chief Complaint: SHORTNESS OF BREATH Stated Complaint: RESPIRATORY Nursing Triage Summary: pt from [facility]. recent d/c from [facility] for CHF. pt uses 2l nc at hs. felt tired yesterday and this am, had apple e sob, pt states she ask staff to turn up o2. she states" they didn't" had progressive increase sob. was given albuterol neb. als increased o2. denies cough or pain History of Present Illness The patient is a 82 year old female who presents to the Emergency Room with complaints of constant shortness of breath beginning a few days ago. Patient sent from [facility]. She has a history of CHF. The patient was sent to [facility] three days ago for bilateral pneumonia from the ED. She states that her breathing feels the same as it has with increased supplemental oxygen. She also complains of generalized weakness and fatigue. Source of History: patient Onset: A few days ago Quality: other (shortness of breath) Timing: constant Modifying Factors (Relieving): oxygen (increased supplemental) Associated Symptoms: + fatigue, + weakness (generalized) Review of Systems See HPI for pertinent positives & negatives. A total of 10 systems reviewed and were otherwise negative. 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 (13) Falls (14) Gastroparesis (15) GERD (gastroesophageal reflux disease) (16) Hiatal hernia (17) History of acute minda lesion (18) History of endometrial cancer (19) History of GI bleed (20) History of pulmonary embolism (21) IBS (irritable bowel syndrome) (22) Obstructive lung disease (23) Osteoporosis (24) PNA (pneumonia) (25) Polyarthritis (26) Recurrent UTI (27) SOB (shortness of breath) (28) Temporal arteritis Surgical Problems: (1) Hx of cystoscopy (2) S/P left knee arthroscopy (3) S/P TAVR (transcatheter aortic valve replacement) (4) Status post cataract extraction (5) Status post coronary artery stent placement (6) Status post hysterectomy Family History Cancer Diabetes mellitus FH: cardiovascular disease MOTHER Gallbladder disease Hypertension Social History Smoking Status: Never Smoker Alcohol Use: none Drug Use: none Marital Status: Housing Status: lives alone Occupation Status: retired Current/Historical Medications Scheduled Ascorbic Acid (Ascorbic Acid), 250 MG PO DAILY Famotidine (Pepcid), 20 MG PO DAILY Fentanyl (Fentanyl), 12 MCG TD Q72H Ferrous Sulfate (Ferrous Sulfate), 325 MG PO BID Fluticasone Furoate-Vilanterol (Breo Ellipta), 1 PUFF INH DAILY Furosemide (Lasix), 40 MG PO DAILY Gabapentin (Neurontin), 100 MG PO DAILY Home O2 Therapy (Oxygen), 3 LITERS NA UD Lactobacillus Acidophilus (Floranex), 1 TAB PO TIDM Magnesium Oxide (Mag-Ox), 400 MG PO DAILY Metoprolol Succinate (Metoprolol Succinate ER), 12.5 MG PO BID Multiple Vitamin (Multivitamin), 0.5 TABLET PO DAILY Pantoprazole (Protonix), 40 MG PO BID Paroxetine (Paroxetine HCl), 40 MG PO DAILY Potassium Chloride (Potassium Chloride Er), 10 MEQ PO BID Prednisone (Prednisone), 5 MG PO DAILY Warfarin Sod (Coumadin), 2 MG PO DAILY@16 Scheduled PRN Acetaminophen (Acetaminophen), 650 MG PO for Pain Albuterol Sulf (Proventil 0.083% 2.5MG/3ML), 2.5 MG INH QID PRN for SOB/Wheezing Bisacodyl (Dulcolax), 1 SUPP OK DAILY PRN for Constipation Docusate Sodium (Colace), 1 CAP PO BID PRN for Constipation Lorazepam (Lorazepam), 0.5 MG PO HS PRN for Insomnia Magnesium Hydroxide (Milk Of Magnesia), 30 ML PO DAILY PRN for Constipation Ondansetron Hcl (Zofran), 4 MG PO Q6 PRN for Nausea Oxycodone/Acetaminophen 5MG/325MG (Percocet 5MG/325MG), 1 TABLET PO Q8H PRN for Pain Polyethylene (Miralax), 17 GM PO DAILY PRN for Constipation Senna (Senokot), 1 TAB PO DAILY PRN for Constipation Sodium Phosphate/Biphosphate (Fleet Enema), 1 EA OK DAILY PRN for Constipation Allergies Coded Allergies: Cefdinir (Verified Allergy, Mild, RASH-HAS HAD ROCEPHIN,CEFEPIME MANY TIMES, 11/09/17) Clonazepam (Verified Allergy, Unknown, ., 11/09/17) Levofloxacin (Verified Allergy, Unknown, unknown, 11/09/17) Sulfasalazine (Verified Allergy, Unknown, ., 11/09/17) Metoclopramide (Verified Adverse Reaction, Intermediate, TREMORS, 11/09/17) Physical Exam Vital Signs Date Time Temp Pulse Resp B/P (MAP) Pulse Ox O2 Delivery O2 Flow Rate FiO2 11/09/17 13:13 105 21 108/57 94 Nasal Cannula 2.0 11/09/17 12:16 101 22 115/78 95 11/09/17 10:48 99 21 121/71 96 Nasal Cannula 2.0 11/09/17 09:35 93 21 114/61 98 Nebulizer 11/09/17 08:15 98 Nasal Cannula 2.0 11/09/17 08:14 36.7 93 24 131/67 98 Nasal Cannula 2.0 11/09/17 08:11 94 Room Air 11/09/17 08:11 98 Nasal Cannula 2.0 11/09/17 08:09 98 Physical Exam CONSTITUTIONAL/VITAL SIGNS: Reviewed / noted above. GENERAL: Non-toxic in appearance. Generalized weakness. INTEGUMENTARY: Warm, dry, and [place]. HEAD: Normocephalic. EYES: without scleral icterus or trauma. ENT/OROPHARYNX: clear and moist. LYMPHADENOPATHY/NECK: Is supple without lymphadenopathy or meningismus. RESPIRATORY: Lungs clear and equal. CARDIOVASCULAR: Regular rate and rhythm. GI/ABDOMEN: Soft and nontender. No organomegaly or pulsatile mass. No rebound or guarding. Normal bowel sounds. EXTREMITIES: Warm and well perfused. BACK: No CVA tenderness. NEUROLOGICAL: Intact without focal deficits. PSYCHIATRIC: normal affect. MUSCULOSKELETAL: Normally developed with good muscle tone. Medical Decision & Procedures ER Provider Diagnostic Interpretation: Radiology results as stated below per my review and radiologist interpretation: CHEST 2 VIEWS ROUTINE FINDINGS: Cardiac silhouette is again enlarged. Atherosclerosis of the aorta. Endograft of the aorta redemonstrated. Mild pulmonary vascular congestion with patchy bilateral alveolar opacities. Mild blunting of the costophrenic angles suggests trace effusions. Interval removal of the left-sided PICC. No pneumothorax. IVC filter of the upper abdomen is noted. Levoscoliosis of the thoracolumbar spine. The bones appear grossly intact. IMPRESSION: 1. Cardiomegaly with mild pulmonary vascular congestion and trace bilateral pleural effusions. 2. Patchy bilateral alveolar opacities are suspicious for superimposed pneumonia. 3. Interval removal of the left-sided PICC. The above report was generated using voice recognition software. It may contain grammatical, syntax or spelling errors. Electronically signed by: Joshua Feng M.D. 11/09/2017 10:34 AM Laboratory Results 11/09/17 09:24 Red Blood Count 3.69, Mean Corpuscular Volume 93.2, Mean Corpuscular Hemoglobin 29.8, Mean Corpuscular Hemoglobin Concent 32.0, Mean Platelet Volume 9.9, Neutrophils (%) (Auto) 83.1, Lymphocytes (%) (Auto) 8.1, Monocytes (%) (Auto) 7.0, Eosinophils (%) (Auto) 1.3, Basophils (%) (Auto) 0.1, Neutrophils # (Auto) 16.00, Lymphocytes # (Auto) 1.56, Monocytes # (Auto) 1.34, Eosinophils # (Auto) 0.25, Basophils # (Auto) 0.02 11/09/17 09:24 Test 11/09/17 09:24 White Blood Count 19.24 K/uL (4.8-10.8) Red Blood Count 3.69 M/uL (4.2-5.4) Hemoglobin 11.0 g/dL (12.0-16.0) Hematocrit 34.4 % (37-47) Mean Corpuscular Volume 93.2 fL (80-100) Mean Corpuscular Hemoglobin 29.8 pg (25-34) Mean Corpuscular Hemoglobin Concent 32.0 g/dl (32-36) Platelet Count 332 K/uL (130-400) Mean Platelet Volume 9.9 fL (7.4-10.4) Neutrophils (%) (Auto) 83.1 % Lymphocytes (%) (Auto) 8.1 % Monocytes (%) (Auto) 7.0 % Eosinophils (%) (Auto) 1.3 % Basophils (%) (Auto) 0.1 % Neutrophils # (Auto) 16.00 K/uL (1.4-6.5) Lymphocytes # (Auto) 1.56 K/uL (1.2-3.4) Monocytes # (Auto) 1.34 K/uL (0.11-0.59) Eosinophils # (Auto) 0.25 K/uL (0-0.5) Basophils # (Auto) 0.02 K/uL (0-0.2) RDW Standard Deviation 57.3 fL (36.4-46.3) RDW Coefficient of Variation 16.7 % (11.5-14.5) Immature Granulocyte % (Auto) 0.4 % Immature Granulocyte # (Auto) 0.07 K/uL (0.00-0.02) Prothrombin Time 24.1 SECONDS (9.0-12.0) Prothromb Time International Ratio 2.3 (0.9-1.1) Activated Partial Thromboplast Time 35.6 SECONDS (21.0-31.0) Partial Thromboplastin Ratio 1.4 Anion Gap 9.0 mmol/L (3-11) Est Creatinine Clear Calc Drug Dose 20.2 ml/min Estimated GFR () 29.6 Estimated GFR (Non- 25.6 BUN/Creatinine Ratio 24.2 (10-20) Calcium Level 10.4 mg/dl (8.5-10.1) Total Bilirubin 0.4 mg/dl (0.2-1) Aspartate Amino Transf (AST/SGOT) 25 U/L (15-37) Alanine Aminotransferase (ALT/SGPT) 33 U/L (12-78) Alkaline Phosphatase 116 U/L (45-117) Total Creatine Kinase 42 U/L (26-192) Creatine Kinase MB 3.0 ng/ml (0.5-3.6) Creatine Kinase MB Ratio 7.1 (0-3.0) Troponin I 0.195 ng/ml (0-0.045) Pro-B-Type Natriuretic Peptide 2340 pg/ml (0-1800) Total Protein 7.3 gm/dl (6.4-8.2) Albumin 3.0 gm/dl (3.4-5.0) Globulin 4.3 gm/dl (2.5-4.0) Albumin/Globulin Ratio 0.7 (0.9-2) Laboratory results as stated above per my review. Medications Administered Medications (Trade) Dose Ordered Sig/Rosi Route Start Time Stop Time Status Last Admin Dose Admin Albuterol/ Ipratropium (Duoneb) 3 ml NOW STAT INH 11/09/17 08:45 11/09/17 08:47 DC 11/09/17 09:37 3 ML Cefepime HCl 2000 mg/Syringe 20 ml @ 5 mls/min NOW ONCE IV 11/09/17 11:45 11/09/17 11:48 DC 11/09/17 12:11 5 MLS/MIN Vancomycin HCl 1250 mg/Sodium Chloride 275 ml @ 125 mls/hr NOW ONCE IV 11/09/17 12:00 11/09/17 14:11 11/09/17 12:10 125 MLS/HR ECG Per My Interpretation Indication: SOB/dyspnea Rate (beats per minute): 100 Rhythm: sinus rhythm Findings: no ectopy, other (No ST elevation.) ED Course 0829: Previous medical records were reviewed. The patient was evaluated in room A9B. A complete history and physical examination was performed. 0845: Ordered DuoNeb 3 mL INH. 1121: On reevaluation, the patient is resting comfortably. I discussed the results and findings with the patient. She verbalized agreement of the treatment plan. I spoke with Dr. Mathur of the [facility]. The patient will be evaluated for further management and care. 1145: Ordered Cefepime HCl 2000 mg/Syringe 20 mL @ 5 mL/min IV. 1200: Ordered Vancomycin HCl 1250 mg/Sodium Chloride 275 ml @ 125 mls/hr IV. Medical Decision the differential was considered includes acute myocardial infarction, acute coronary syndrome, myocarditis, pericarditis, pericardial effusions /tamponade, esophageal perforation, pulmonary embolism, pneumonia, pneumothorax, cardiomyopathy, congestive heart, anemia , COPD/asthma exacerbation. This is a 82-year-old female who presents to the ED with a chief complaint of shortness of breath. The patient has also had increased tiredness and weakness over the weekend. She reports a cough. Exam as noted above. The patient has a chest x-ray that reveals bilateral pneumonias. The white blood cell count is elevated at 19,000. Troponin is slightly elevated. The patient has a history of PE and is currently on Coumadin. The patient's vital signs are stable. After speaking to Dr. Joshua from [facility], I also spoke with the [facility] hospitalist who discharged the patient on Thursday. Because of the patient's changes, the patient will be seen by the hospitalist for further evaluation and care. The patient was started on IV antibiotics here. Medication Reconcilliation Current Medication List: was personally reviewed by me Blood Pressure Screening Patient's blood pressure: Normal blood pressure Blood pressure disposition: Did not require urgent referral Consults Time Called: 1117 Consulting Physician: Dr. Mathur - [facility] Returned Call: [phone] Discussed the patient's case. The patient will be evaluated for further treatment and disposition. Impression Primary Impression: Pneumonia Additional Impressions: Elevated troponin Bilateral pulmonary embolism Scribe Attestation The scribe's documentation has been prepared under my direction and personally reviewed by me in its entirety. I confirm that the note above accurately reflects all work, treatment, procedures, and medical decision making performed by me. Departure Information Dispostion Being Evaluated By Hospitalist Referrals Myrna Inman M.D. (PCP) Patient Instructions My [facility] Problem Qualifiers
[2017-11-09] MEDS ORDERED: FUROSEMIDE INJ 40 MG in SYRINGE 0 ML IV ONE (14:15)
[2017-11-09] MEDS: IPRATROPIUM BROMIDE NEB SOLN 0.02% 2.5 ML VIAL INH SCH ×2 (14:30→19:10)
[2017-11-09] MEDS: LEVALBUTEROL 0.63MG/3 ML NEB INH SCH ×2 (14:32→19:11)
--- NOTE | 2017-11-09 14:45 | Pharmacy Progress Note ---
Pharmacy Antibiotic Consult Date of Service: Nov 09, 2017. Pharmacy Dosing Scope Pharmacy is consulted to initiate Vanc/Cefepime IV dosing therapy, order appropriate labs and adjust drug dose/frequency. Subjective The patient is a 82 year old female admitted on Nov 09, 2017 at 12:29. Objective Height (Feet): 5 Height (Inches): 4.00 Weight (Kilograms): 61.100 Lab Results (24hrs): Test 11/09/17 09:24 11/09/17 13:40 11/09/17 14:24 White Blood Count 19.24 K/uL (4.8-10.8) Red Blood Count 3.69 M/uL (4.2-5.4) Hemoglobin 11.0 g/dL (12.0-16.0) Hematocrit 34.4 % (37-47) Mean Corpuscular Volume 93.2 fL (80-100) Mean Corpuscular Hemoglobin 29.8 pg (25-34) Mean Corpuscular Hemoglobin Concent 32.0 g/dl (32-36) Platelet Count 332 K/uL (130-400) Mean Platelet Volume 9.9 fL (7.4-10.4) Neutrophils (%) (Auto) 83.1 % Lymphocytes (%) (Auto) 8.1 % Monocytes (%) (Auto) 7.0 % Eosinophils (%) (Auto) 1.3 % Basophils (%) (Auto) 0.1 % Neutrophils # (Auto) 16.00 K/uL (1.4-6.5) Lymphocytes # (Auto) 1.56 K/uL (1.2-3.4) Monocytes # (Auto) 1.34 K/uL (0.11-0.59) Eosinophils # (Auto) 0.25 K/uL (0-0.5) Basophils # (Auto) 0.02 K/uL (0-0.2) RDW Standard Deviation 57.3 fL (36.4-46.3) RDW Coefficient of Variation 16.7 % (11.5-14.5) Immature Granulocyte % (Auto) 0.4 % Immature Granulocyte # (Auto) 0.07 K/uL (0.00-0.02) Prothrombin Time 24.1 SECONDS (9.0-12.0) Prothromb Time International Ratio 2.3 (0.9-1.1) Activated Partial Thromboplast Time 35.6 SECONDS (21.0-31.0) Partial Thromboplastin Ratio 1.4 Sodium Level 135 mmol/L (136-145) Potassium Level 3.8 mmol/L (3.5-5.1) Chloride Level 95 mmol/L (98-107) Carbon Dioxide Level 31 mmol/L (21-32) Anion Gap 9.0 mmol/L (3-11) Blood Urea Nitrogen 43 mg/dl (7-18) Creatinine 1.79 mg/dl (0.60-1.20) Est Creatinine Clear Calc Drug Dose 20.2 ml/min Estimated GFR () 29.6 Estimated GFR (Non- 25.6 BUN/Creatinine Ratio 24.2 (10-20) Random Glucose 94 mg/dl (70-99) Calcium Level 10.4 mg/dl (8.5-10.1) Total Bilirubin 0.4 mg/dl (0.2-1) Aspartate Amino Transf (AST/SGOT) 25 U/L (15-37) Alanine Aminotransferase (ALT/SGPT) 33 U/L (12-78) Alkaline Phosphatase 116 U/L (45-117) Total Creatine Kinase 42 U/L (26-192) Creatine Kinase MB 3.0 ng/ml (0.5-3.6) Creatine Kinase MB Ratio 7.1 (0-3.0) Troponin I 0.195 ng/ml (0-0.045) Pro-B-Type Natriuretic Peptide 2340 pg/ml (0-1800) Total Protein 7.3 gm/dl (6.4-8.2) Albumin 3.0 gm/dl (3.4-5.0) Globulin 4.3 gm/dl (2.5-4.0) Albumin/Globulin Ratio 0.7 (0.9-2) Urine Color YELLOW Urine Appearance CLEAR (CLEAR) Urine pH 7.0 (4.5-7.5) Urine Specific [place] 1.011 (1.000-1.030) Urine Protein NEG (NEG) Urine Glucose (UA) NEG (NEG) Urine Ketones NEG (NEG) Urine Occult Blood NEG (NEG) Urine Nitrite NEG (NEG) Urine Bilirubin NEG (NEG) Urine Urobilinogen NEG (NEG) Urine Leukocyte Esterase SMALL (NEG) Urine WBC (Auto) 10-30 /hpf (0-5) Urine RBC (Auto) 0-4 /hpf (0-4) Urine Hyaline Casts (Auto) 0 /lpf (0-5) Urine Epithelial Cells (Auto) 5-10 /lpf (0-5) Urine Bacteria (Auto) NEG (NEG) Micro Results: Item Value Date Time Shiga Toxin Test Received 11/09/17 1400 Stool PENDING Pending Gram Stain Received 11/09/17 1340 Skin Sacrum PENDING Pending Urine Culture Received 11/09/17 1340 Urine,Catheterized PENDING Pending MRSA DNA Surveillance Screen Received 11/09/17 1340 Nasal PENDING Pending Blood Culture Received 11/09/17 0931 Blood PENDING Pending Blood Culture Received 11/09/17 0924 Blood PENDING Pending Assessment & Plan ASSESSMENT: * Ms Conley is an 82yo started on empiric abx therapy on admission, for HCAP. * Recent admission for b/l pna, b/l PE * Patient is known to pharmacy abx consult service from past admissions. PLAN: Vancomycin: * Loading dose: Vanc 1250 mg IV X 1 dose in ED, then * Vanc 1000 mg IV every 24 hours. -- based on data from previous vanc dosing, with similar SCr * Goal trough level estimate: between 15 - 20 mcg/mL, for pulmonary infx * Trough level has been ordered for: 11/12 prior to the 3rd maintenance dose ( this may not yet be steady state) Cefepime 2gm IV x1 dose in the ED, then 2gm IV q24h Pharmacy will continue to follow and will adjust dose/frequency as necessary. Thank you
[2017-11-09] MEDS ORDERED: LEVALBUTEROL/IPRATROPIUM NEB INH SCH (15:00)
[2017-11-09] MEDS ORDERED: IV FLUIDS COMPLETED PRN (15:15)
--- NOTE | 2017-11-09 15:28 | Medical Consult ---
Consultation Date of Consultation: Nov 09, 2017. Attending Physician: Sis Mathur DO Reason for Consultation: PNA, SOB History of Present Illness 82-year-old female with history of hypertension, hyperlipidemia, coronary artery disease, status post aortic valve replacement, recently hospitalized with recurrent bilateral pulmonary emboli ultimately having placement of IVC filter November 02. Was discharged on course of cephalexin for urinary tract infection. Did well for several days, but now readmitted with 2-3 days of increasing shortness of breath, hypoxia, and fatigue. No report of fever. Has had some mild diarrhea. Has mild sacral pain from pressure sore, no other new significant complaints. Chest x-ray in emergency room, read by me, shows evidence of bilateral small infiltrates consistent with possible developing pneumonia. Patient currently being treated with vancomycin and cefepime. Cultures are pending. Past Medical/Surgical History Medical Problems: (1) Acute kidney injury Status: Acute (2) Ambulatory dysfunction Status: Acute (3) Anticoagulated on Coumadin Status: Acute (4) Anticoagulated on Coumadin Status: Acute (5) Bilateral pulmonary embolism Status: Acute (6) Bronchitis with bronchospasm Status: Acute (7) Change in mental status Status: Acute (8) Contusion of left knee Status: Acute (9) Creatinine elevation Status: Acute (10) Dehydration Status: Acute (11) Dehydration Status: Acute (12) Dehydration Status: Acute (13) Dyspnea Status: Acute (14) Dyspnea Status: Acute (15) Elevated troponin Status: Acute (16) GI bleed Status: Acute (17) GI bleed Status: Acute (18) Hypotension Status: Acute (19) Melena Status: Acute (20) Pneumonia Status: Acute (21) Pulmonary embolism Status: Acute (22) SBO (small bowel obstruction) Status: Acute (23) Sepsis due to urinary tract infection Status: Acute (24) Small bowel obstruction Status: Acute (25) Small bowel obstruction Status: Acute (26) SOB (shortness of breath) Status: Acute (27) Subtherapeutic international normalized ratio (INR) Status: Acute (28) Symptomatic anemia Status: Acute (29) Symptomatic anemia Status: Acute (30) Upper GI bleed Status: Acute (31) Urinary tract infection Status: Acute (32) UTI (urinary tract infection) Status: Acute (33) Weakness Status: Acute (34) Weakness Status: Acute Medical Problems: (1) Anemia (2) Angiectasia (3) Aortic stenosis (4) Basal cell carcinoma (5) Benign hypertension (6) CAD (coronary artery disease) (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 (8) CKD (chronic kidney disease) stage 3, GFR 30-59 ml/min (9) Depression (10) Diverticulosis Colon (W/O Ment Of Hemorrhage) (11) Dyslipidemia (12) Factor V deficiency (13) Falls (14) Gastroparesis (15) GERD (gastroesophageal reflux disease) (16) Hiatal hernia (17) History of acute minda lesion (18) History of endometrial cancer (19) History of GI bleed (20) History of pulmonary embolism (21) IBS (irritable bowel syndrome) (22) Obstructive lung disease (23) Osteoporosis (24) Polyarthritis (25) Recurrent UTI (26) Temporal arteritis Surgical Problems: (1) Hx of cystoscopy (2) S/P left knee arthroscopy (3) S/P TAVR (transcatheter aortic valve replacement) (4) Status post cataract extraction (5) Status post coronary artery stent placement (6) Status post hysterectomy Family History Cancer Diabetes mellitus FH: cardiovascular disease MOTHER Gallbladder disease Hypertension Social History Smoking Status: Never Smoker Drug Use: none Marital Status: Housing Status: lives alone Occupation Status: retired Allergies Coded Allergies: Cefdinir (Verified Allergy, Mild, RASH-HAS HAD ROCEPHIN,CEFEPIME MANY TIMES, 11/09/17) Clonazepam (Verified Allergy, Unknown, ., 11/09/17) Levofloxacin (Verified Allergy, Unknown, unknown, 11/09/17) Sulfasalazine (Verified Allergy, Unknown, ., 11/09/17) Metoclopramide (Verified Adverse Reaction, Intermediate, TREMORS, 11/09/17) Current Inpatient Medications Current Inpatient Medications Medications (Trade) Dose Ordered Sig/Rosi Route Start Time Stop Time Status Last Admin Dose Admin Acetaminophen (Tylenol Tab) 650 mg Q4H PRN PO 11/09/17 13:00 12/09/17 12:59 11/09/17 14:19 650 MG Ondansetron HCl (Zofran Inj) 4 mg Q6H PRN IV 11/09/17 13:00 12/09/17 12:59 Miscellaneous Information (Consult) 1 ea UD PRN N/A 11/09/17 13:21 12/09/17 13:20 Cefepime HCl (Consult) 1 ea UD PRN N/A 11/09/17 13:30 12/09/17 13:29 Ipratropium [place] (Atrovent 0.02% 0.5MG/2.5ML Neb) 0.5 mg Q6R INH 11/09/17 15:00 12/09/17 14:59 11/09/17 14:30 0.5 MG Levalbuterol (Xopenex 0.63 Mg/ 3 Ml Neb) 0.63 mg Q6R INH 11/09/17 15:00 12/09/17 14:59 11/09/17 14:32 0.63 MG Docusate Sodium (coLACE CAP) 100 mg BID PRN PO 11/09/17 13:30 12/09/17 13:29 Famotidine (Pepcid Tab) 20 mg DAILY PO 11/10/17 09:00 12/10/17 08:59 Fentanyl (Duragesic Patch) 12 mcg Q72H TD 11/10/17 09:00 11/24/17 08:59 Ferrous Sulfate (Feosol Tab) 325 mg BIDM PO 11/09/17 16:45 12/09/17 16:44 Gabapentin (Neurontin Cap) 100 mg DAILY PO 11/10/17 09:00 12/10/17 08:59 Lactobacillus Acidophilus (Floranex Tab) 1 tab TIDM PO 11/09/17 16:45 12/09/17 17:59 Lorazepam (Ativan Tab) 0.5 mg HS PRN PO 11/09/17 13:30 12/09/17 13:29 Magnesium Hydroxide (Milk Of Magnesia Susp) 30 ml DAILY PRN PO 11/09/17 13:30 12/09/17 13:29 Magnesium Oxide (Mag-Ox Tab) 400 mg DAILY PO 11/10/17 09:00 12/10/17 08:59 Metoprolol Succinate (Toprol Xl Tab) 12.5 mg BID PO 11/09/17 21:00 12/09/17 20:59 Multivitamins (Multivitamin Tab) 0.5 tab DAILY PO 11/10/17 09:00 12/10/17 08:59 Oxycodone/ Acetaminophen (Percocet 5-325mg Tab) 1 tab Q8H PRN PO 11/09/17 13:30 11/23/17 13:29 Pantoprazole Sodium (Protonix Tab) 40 mg BID PO 11/09/17 21:00 12/09/17 20:59 Polyethylene (Miralax Powder Packet) 17 gm DAILY PRN PO 11/09/17 13:30 12/09/17 13:29 Prednisone (PredniSONE TAB) 5 mg DAILY PO 11/10/17 09:00 12/10/17 08:59 Warfarin Sodium (Coumadin Tab) 2 mg DAILY@16 PO 11/09/17 16:00 12/09/17 15:59 Ascorbic Acid (Vitamin C Tab) 250 mg DAILY PO 11/10/17 09:00 12/10/17 08:59 Miscellaneous Information (Order Awaiting Action) 1 ea QS N/A 11/09/17 16:00 12/09/17 15:59 Paroxetine HCl (pAXil TAB) 40 mg QAM PO 11/10/17 09:00 12/10/17 08:59 Potassium Chloride (Klor-Con M10) 10 meq BID PO 11/09/17 21:00 12/09/17 20:59 Miscellaneous (Fentanyl Patch Remove & Waste) 1 ea Q3D@0859 N/A 11/10/17 08:59 12/10/17 08:58 Miscellaneous Information (Check Fentanyl Patch Placement) 1 ea QS N/A 11/09/17 16:00 12/09/17 15:59 Vancomycin HCl 1000 mg/Sodium Chloride 270 ml @ 125 mls/hr Q24H IV 11/10/17 06:00 11/16/17 05:59 Cefepime HCl 2000 mg/Syringe 20 ml @ 5 mls/min Q24H IV 11/10/17 12:00 11/17/17 11:59 Miscellaneous (Iv Fluids Completed) 1 ea PRN PRN N/A 11/09/17 15:15 11/09/18 15:14 Tramadol HCl (Ultram Tab) 50 mg Q4H PRN PO 11/09/17 15:30 12/09/17 15:29 UNV Review of Systems All systems were reviewed and are negative except as per HPI Physical Exam Date Time Temp Pulse Resp B/P (MAP) Pulse Ox O2 Delivery O2 Flow Rate FiO2 11/09/17 14:34 97 20 90 Nasal Cannula 2.0 11/09/17 14:32 37.0 100 22 111/70 95 Nasal Cannula 2.0 11/09/17 13:13 105 21 108/57 94 Nasal Cannula 2.0 11/09/17 12:16 101 22 115/78 95 11/09/17 10:48 99 21 121/71 96 Nasal Cannula 2.0 11/09/17 09:35 93 21 114/61 98 Nebulizer 11/09/17 08:15 98 Nasal Cannula 2.0 11/09/17 08:14 36.7 93 24 131/67 98 Nasal Cannula 2.0 11/09/17 08:11 94 Room Air 11/09/17 08:11 98 Nasal Cannula 2.0 11/09/17 08:09 98 General Appearance: no apparent distress, + pertinent finding (Chronically ill- appearing) Head: normocephalic, atraumatic Eyes: normal inspection, EOMI, sclerae normal ENT: normal ENT inspection, pharynx normal Neck: supple, no adenopathy, thyroid normal, trachea midline Respiratory/Chest: chest non-tender, no respiratory distress, no accessory muscle use, + rales (Bibasilar) Cardiovascular: regular rate, rhythm, no gallop, no murmur Abdomen/GI: normal bowel sounds, non tender, soft, no organomegaly Back: normal inspection, no CVA tenderness Extremities/Musculoskelatal: no calf tenderness, non-tender Neurologic/Psych: alert, oriented x 3 Skin: normal color, warm/dry, no rash, + pertinent finding (Sacral decubitus healed) Lymphatic: no adenopathy Laboratory Results Date/Time Source Procedure Growth Status 11/09/17 09:31 Blood Blood Culture Pending Received 11/09/17 09:24 Blood Blood Culture Pending Received 11/09/17 13:40 Nasal MRSA DNA Surveillance Screen Pending Received 11/09/17 14:00 Stool Shiga Toxin Test Pending Received 11/09/17 14:00 Stool Stool Culture Pending Received 11/09/17 13:40 Urine,Catheterized Urine Culture Pending Received 11/09/17 13:40 Skin Sacrum Gram Stain Pending Received 11/09/17 13:40 Skin Sacrum Wound Culture Pending Received Last 24 Hours Test 11/09/17 09:24 11/09/17 13:40 11/09/17 14:24 11/09/17 15:24 White Blood Count 19.24 K/uL Red Blood Count 3.69 M/uL Hemoglobin 11.0 g/dL Hematocrit 34.4 % Mean Corpuscular Volume 93.2 fL Mean Corpuscular Hemoglobin 29.8 pg Mean Corpuscular Hemoglobin Concent 32.0 g/dl Platelet Count 332 K/uL Mean Platelet Volume 9.9 fL Neutrophils (%) (Auto) 83.1 % Lymphocytes (%) (Auto) 8.1 % Monocytes (%) (Auto) 7.0 % Eosinophils (%) (Auto) 1.3 % Basophils (%) (Auto) 0.1 % Neutrophils # (Auto) 16.00 K/uL Lymphocytes # (Auto) 1.56 K/uL Monocytes # (Auto) 1.34 K/uL Eosinophils # (Auto) 0.25 K/uL Basophils # (Auto) 0.02 K/uL RDW Standard Deviation 57.3 fL RDW Coefficient of Variation 16.7 % Immature Granulocyte % (Auto) 0.4 % Immature Granulocyte # (Auto) 0.07 K/uL Prothrombin Time 24.1 SECONDS Prothromb Time International Ratio 2.3 Activated Partial Thromboplast Time 35.6 SECONDS Partial Thromboplastin Ratio 1.4 Sodium Level 135 mmol/L Potassium Level 3.8 mmol/L Chloride Level 95 mmol/L Carbon Dioxide Level 31 mmol/L Anion Gap 9.0 mmol/L Blood Urea Nitrogen 43 mg/dl Creatinine 1.79 mg/dl Est Creatinine Clear Calc Drug Dose 20.2 ml/min Estimated GFR () 29.6 Estimated GFR (Non- 25.6 BUN/Creatinine Ratio 24.2 Random Glucose 94 mg/dl Calcium Level 10.4 mg/dl Total Bilirubin 0.4 mg/dl Aspartate Amino Transf (AST/SGOT) 25 U/L Alanine Aminotransferase (ALT/SGPT) 33 U/L Alkaline Phosphatase 116 U/L Total Creatine Kinase 42 U/L Creatine Kinase MB 3.0 ng/ml Creatine Kinase MB Ratio 7.1 Troponin I 0.195 ng/ml Pro-B-Type Natriuretic Peptide 2340 pg/ml Total Protein 7.3 gm/dl Albumin 3.0 gm/dl Globulin 4.3 gm/dl Albumin/Globulin Ratio 0.7 Urine Color YELLOW Urine Appearance CLEAR Urine pH 7.0 Urine Specific [place] 1.011 Urine Protein NEG Urine Glucose (UA) NEG Urine Ketones NEG Urine Occult Blood NEG Urine Nitrite NEG Urine Bilirubin NEG Urine Urobilinogen NEG Urine Leukocyte Esterase SMALL Urine WBC (Auto) 10-30 /hpf Urine RBC (Auto) 0-4 /hpf Urine Hyaline Casts (Auto) 0 /lpf Urine Epithelial Cells (Auto) 5-10 /lpf Urine Bacteria (Auto) NEG CHEST 2 VIEWS ROUTINE HISTORY: 82 years-old Female EVALUATE RESPIRATORY DISTRESS.DYSPNEA acute respiratory distress COMPARISON: Chest radiograph 11/01/2017 TECHNIQUE: AP and lateral views of the chest FINDINGS: Cardiac silhouette is again enlarged. Atherosclerosis of the aorta. Endograft of the aorta redemonstrated. Mild pulmonary vascular congestion with patchy bilateral alveolar opacities. Mild blunting of the costophrenic angles suggests trace effusions. Interval removal of the left-sided PICC. No pneumothorax. IVC filter of the upper abdomen is noted. Levoscoliosis of the thoracolumbar spine. The bones appear grossly intact. IMPRESSION: 1. Cardiomegaly with mild pulmonary vascular congestion and trace bilateral pleural effusions. 2. Patchy bilateral alveolar opacities are suspicious for superimposed pneumonia. 3. Interval removal of the left-sided PICC. The above report was generated using voice recognitio Assessment & Plan Possible developing HCAP, agree with broad-spectrum ABx pending further culture results. Procalcitonin ordered. Will follow.
[2017-11-09] MEDS: CHECK FENTANYL PATCH PLACEMENT SCH (15:41)
[2017-11-09] MEDS: OXYCODONE/ACETAMINOPHEN 5-325 TAB PO PRN (15:41)
[2017-11-09] MEDS: LACTOBACILLUS ACIDOPHILUS (FLORANEX) TAB PO SCH (17:21)
[2017-11-09] MEDS: FERROUS SULFATE 325 MG TAB PO SCH (17:22)
[2017-11-09] MEDS: WARFARIN SOD 2 MG TAB PO SCH (17:22)
[2017-11-09] MEDS: DOCUSATE SODIUM 100 MG CAP PO PRN (20:45)
[2017-11-09] MEDS: POLYETHYLENE (MIRALAX) 17 GM PACK PO PRN (20:46)
[2017-11-09] MEDS: PANTOprazole SOD 40 MG TAB PO SCH (20:46)
[2017-11-09] MEDS: POTASSIUM CHLORIDE 10 MEQ TABCR PO SCH (20:46)
[2017-11-09] MEDS: LORAZEPAM 0.5 MG TAB PO PRN (20:46)
[2017-11-09] MEDS: METOPROLOL SUCC 25MG EXT REL TAB PO SCH (20:48)
[2017-11-09] MEDS: TRAMADOL HCL 50 MG TAB PO PRN (21:56)
[2017-11-10] VITALS (14 sets, daily range): BP systolic 95–108; BP diastolic 52–72; PULSE 70–92; TEMP 34.4–36.7; O2SAT 90–100
[2017-11-10] MEDS: CHECK FENTANYL PATCH PLACEMENT SCH ×3 (00:04→16:00)
[2017-11-10] MEDS: IPRATROPIUM BROMIDE NEB SOLN 0.02% 2.5 ML VIAL INH SCH ×4 (01:47→19:25)
[2017-11-10] MEDS: LEVALBUTEROL 0.63MG/3 ML NEB INH SCH ×4 (01:48→19:25)
[2017-11-10] MEDS: VANCOMYCIN IV 1,000 MG in SODIUM CHLORIDE 0.9% 250ML 250 ML IV SCH (05:22)
[2017-11-10] MEDS: OXYCODONE/ACETAMINOPHEN 5-325 TAB PO PRN ×2 (05:58→22:18)
[2017-11-10 07:27] LABS: HEMATOCRIT 30.7 % (37-47); HEMOGLOBIN 9.8 g/dL (12.0-16.0); MEAN CELL VOLUME 92.2 fL (80-100); MEAN CORPUSCULAR HEMOGLOBIN 29.4 pg (25-34); MEAN CORPUSCULAR HGB CONC 31.9 g/dl (32-36); MEAN PLATELET VOLUME 9.2 fL (7.4-10.4); PLATELET COUNT 288 K/uL (130-400); RED CELL DISTRIBUTION WIDTH CV 16.8 % (11.5-14.5); RED CELL DISTRIBUTION WIDTH SD 56.6 fL (36.4-46.3); WHITE BLOOD COUNT 9.01 K/uL (4.8-10.8)
[2017-11-10 07:37] LABS: INR 1.6 (0.9-1.1)
[2017-11-10 07:52] LABS: CALCIUM 9.8 mg/dl (8.5-10.1); CREATININE 2.01 mg/dl (0.60-1.20); POTASSIUM 4.4 mmol/L (3.5-5.1)
[2017-11-10] MEDS: METOPROLOL SUCC 25MG EXT REL TAB PO SCH ×2 (09:00→21:45)
[2017-11-10] MEDS: PANTOprazole SOD 40 MG TAB PO SCH ×2 (09:00→21:50)
[2017-11-10] MEDS: GABAPENTIN 100 MG CAP PO SCH (09:01)
[2017-11-10] MEDS: ASCORBIC ACID 500 MG TAB PO SCH (09:01)
[2017-11-10] MEDS: PAROXETINE 20 MG TAB PO SCH (09:01)
[2017-11-10] MEDS: MULTIVITAMIN TAB PO SCH (09:01)
[2017-11-10] MEDS: FAMOTIDINE 20 MG TAB PO SCH (09:01)
[2017-11-10] MEDS: MAGNESIUM OXIDE 400 MG TAB PO SCH (09:01)
[2017-11-10] MEDS: LACTOBACILLUS ACIDOPHILUS (FLORANEX) TAB PO SCH ×3 (09:02→16:15)
[2017-11-10] MEDS: FERROUS SULFATE 325 MG TAB PO SCH ×2 (09:02→16:15)
[2017-11-10] MEDS: FENTANYL PATCH REMOVE & WASTE SCH (09:13)
[2017-11-10] MEDS: FENTANYL 12 MCG/HR TDSY TD SCH (09:13)
[2017-11-10] MEDS: POTASSIUM CHLORIDE 10 MEQ TABCR PO SCH ×2 (09:14→21:49)
[2017-11-10] MEDS ORDERED: OXYCODONE/ACETAMINOPHEN 5-325 TAB PO PRN (10:45)
[2017-11-10] MEDS: CEFEPIME IV 2,000 MG in SYRINGE 7.5 ML IV SCH ×2 (11:45→18:54)
[2017-11-10] MEDS: TRAMADOL HCL 50 MG TAB PO PRN (12:22)
[2017-11-10] MEDS: WARFARIN SOD 2 MG TAB PO SCH (16:16)
--- NOTE | 2017-11-10 18:50 | Progress Note ---
Internal Med Progress Note Date of Service: Nov 10, 2017. Provider Documentation: SUBJECTIVE: patient says her chronic pain is more than usual today pain in her left shoulder, knees and ankles feeling worn out sob is same cough is better today afebrile appetite ok no nausea OBJECTIVE: Vital Signs-as noted below Exam: General-alert and oriented. Not in distress ENT-normal hearing. Neck-No neck masses Lungs-CTA b/l no wheezing or crackles Heart-S1 and S2 heard regular rate and rhythm no murmurs Abdomen-soft Bowels sounds present non tender no distension Extremities- no erythema Neuro-alert and oriented moves extremities Lab data as noted below. 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 SOB 2/2 subacute bilateral PEs, possible HCAP PNA, possible [id number] diastolic CHF: PEs diagnosed 10/26. S/p IVC filter placement. On Coumadin INR 1.6 toay. Low dose iv heparin until inr therapeutic. HCAP -Leukocytosis of 19 (was discharged with a wbc count of 9) CXR with patchy bilateral alveolar opacities are suspicious for superimposed PNA Recently on last admission was on vanco, imipenem and doxy on previous admission started on Vanco and cefepime ID on board await cx. Acute on chronic diastolic chf CXR also with cardiomegaly with mild pulmonary vascular congestion and trace bilateral pleural effusions Recent October 2017 echo with preserved EF ~70% received a dose of iv lasix will monitor Recent UTI: Klebsiella infection, treated with keflex no growth so far Diarrhea: will monitor Elevated troponin: mostly demand ischemia from above asymptomatic MYRTLE on chronic CKD III: Poor PO intake x 2 days Presented with Cr 1.79 (baseline low-mid 1s) received a dos of iv Lasix cr 2 today will f/u labs Sacral pressure ulcer: Treated with optifoam Wound care nurse consulted Cx growing gm positive cocci Repositioning q2H CAD: S/p stents in 2011 Stable home meds Aortic stenosis: S/p TAVR with bioprosthetic valve in 2015 Anemia of chronic disease: Hgb 9.8 today on iron supplements f/u labs. Polyarthritis: Cont chronic prednisone, fentanyl patch, gabapentin, percocet PRN prednisone dose increased DVT Ppx: heparin and coumadin Code status: FULL code but NO MECH VENT per admission. PCP: Henny. Dispo:to be determined Vital Signs: Date Time Temp Pulse Resp B/P (MAP) Pulse Ox O2 Delivery O2 Flow Rate FiO2 11/10/17 16:00 96 Nasal Cannula 4.0 11/10/17 15:29 36.6 79 24 105/68 (80) 100 Nasal Cannula 2.0 11/10/17 14:17 79 16 90 Room Air 11/10/17 12:00 97 Nasal Cannula 2.0 11/10/17 11:33 34.4 92 20 108/72 (84) 100 2.0 11/10/17 08:00 97 Nasal Cannula 2.0 11/10/17 07:34 36.3 70 12 95/59 (71) 97 Nasal Cannula 2.0 11/10/17 07:27 70 16 97 Nasal Cannula 2.0 11/10/17 04:11 Nasal Cannula 2.0 11/10/17 03:18 36.7 79 17 107/69 (82) 100 Nasal Cannula 2.0 11/10/17 01:50 79 16 95 Nasal Cannula 2.0 11/10/17 00:01 Nasal Cannula 2.0 11/09/17 23:50 36.6 88 17 127/75 (92) 99 Nasal Cannula 2.0 11/09/17 20:48 93 114/66 (82) 11/09/17 20:00 Nasal Cannula 2.0 11/09/17 19:38 36.5 89 20 99/62 (74) 99 Nasal Cannula 2.0 11/09/17 19:13 92 16 97 Nasal Cannula 2.0 Lab Results: Results Past 24 Hours Test 11/09/17 21:55 11/10/17 07:10 Range/Units Troponin I 0.346 0-0.045 ng/ml White Blood Count 9.01 4.8-10.8 K/uL Red Blood Count 3.33 4.2-5.4 M/uL Hemoglobin 9.8 12.0-16.0 g/dL Hematocrit 30.7 37-47 % Mean Corpuscular Volume 92.2 80-100 fL Mean Corpuscular Hemoglobin 29.4 25-34 pg Mean Corpuscular Hemoglobin Concent 31.9 32-36 g/dl RDW Standard Deviation 56.6 36.4-46.3 fL RDW Coefficient of Variation 16.8 11.5-14.5 % Platelet Count 288 130-400 K/uL Mean Platelet Volume 9.2 7.4-10.4 fL Erythrocyte Sedimentation Rate 68 0-21 mm/hr Prothrombin Time 17.0 9.0-12.0 SECONDS Prothromb Time International Ratio 1.6 0.9-1.1 Sodium Level 132 136-145 mmol/L Potassium Level 4.4 3.5-5.1 mmol/L Chloride Level 96 98-107 mmol/L Carbon Dioxide Level 29 21-32 mmol/L Anion Gap 7.0 3-11 mmol/L Blood Urea Nitrogen 48 7-18 mg/dl Creatinine 2.01 0.60-1.20 mg/dl Est Creatinine Clear Calc Drug Dose 18.0 ml/min Estimated GFR () 25.8 Estimated GFR (Non- 22.2 BUN/Creatinine Ratio 23.7 10-20 Random Glucose 140 70-99 mg/dl Calcium Level 9.8 8.5-10.1 mg/dl C-Reactive Protein 11.30 0-0.29 mg/dl Pro-B-Type Natriuretic Peptide 3279 0-1800 pg/ml
[2017-11-10] MEDS ORDERED: HEPARIN IV LOW DOSE NO BOLUS SCH (19:15)
[2017-11-10 19:25] LABS: HEMATOCRIT 26.8 % (37-47); HEMOGLOBIN 8.5 g/dL (12.0-16.0); IG# 0.01 K/uL (0.00-0.02); LYMPH % 6.5 %; LYMPH ABS # 0.39 K/uL (1.2-3.4); MEAN CELL VOLUME 90.8 fL (80-100); MEAN CORPUSCULAR HEMOGLOBIN 28.8 pg (25-34); MEAN PLATELET VOLUME 9.4 fL (7.4-10.4); MONO % 2.2 %; MONO ABS # 0.13 K/uL (0.11-0.59); NEUT % 91.1 %; NEUT ABS # 5.44 K/uL (1.4-6.5); PLATELET COUNT 279 K/uL (130-400); RED CELL DISTRIBUTION WIDTH CV 16.2 % (11.5-14.5); RED CELL DISTRIBUTION WIDTH SD 54.6 fL (36.4-46.3); WHITE BLOOD COUNT 5.97 K/uL (4.8-10.8)
[2017-11-10 19:36] LABS: PTT PATIENT 39.1 SECONDS (21.0-31.0)
[2017-11-10] MEDS: HEPARIN 25,000 UNIT/500ML D5W 500 ML IV SCH (20:07)
[2017-11-10 20:22] LABS: MEAN CORPUSCULAR HGB CONC 31.7 g/dl (32-36)
[2017-11-11] VITALS (15 sets, daily range): BP systolic 93–119; BP diastolic 55–69; PULSE 66–87; TEMP 36.3–36.9; O2SAT 96–100
[2017-11-11] MEDS: IPRATROPIUM BROMIDE NEB SOLN 0.02% 2.5 ML VIAL INH SCH ×4 (02:31→19:05)
[2017-11-11] MEDS: LEVALBUTEROL 0.63MG/3 ML NEB INH SCH ×4 (02:32→19:05)
[2017-11-11 02:40] LABS: INR 2.7 (0.9-1.1)
[2017-11-11 02:49] LABS: PTT PATIENT 104.2 SECONDS (21.0-31.0)
[2017-11-11] MEDS: HEPARIN 25,000 UNIT/500ML D5W 500 ML IV SCH (04:00)
[2017-11-11] MEDS ORDERED: NURSING VERBAL MED ORDER ONE (05:00)
[2017-11-11] MEDS: VANCOMYCIN IV 1,000 MG in SODIUM CHLORIDE 0.9% 250ML 250 ML IV SCH (05:27)
[2017-11-11 06:29] LABS: CREATININE 1.56 mg/dl (0.60-1.20)
[2017-11-11 07:56] LABS: HEMOGLOBIN 8.1 g/dL (12.0-16.0); IG# 0.03 K/uL (0.00-0.02); LYMPH % 7.6 %; LYMPH ABS # 0.77 K/uL (1.2-3.4); MEAN CELL VOLUME 90.9 fL (80-100); MEAN CORPUSCULAR HEMOGLOBIN 29.5 pg (25-34); MEAN CORPUSCULAR HGB CONC 32.4 g/dl (32-36); MEAN PLATELET VOLUME 9.7 fL (7.4-10.4); MONO % 5.8 %; MONO ABS # 0.59 K/uL (0.11-0.59); NEUT % 86.3 %; PLATELET COUNT 289 K/uL (130-400); RED CELL DISTRIBUTION WIDTH CV 16.2 % (11.5-14.5); RED CELL DISTRIBUTION WIDTH SD 54.2 fL (36.4-46.3); WHITE BLOOD COUNT 10.19 K/uL (4.8-10.8)
[2017-11-11] MEDS: OXYCODONE/ACETAMINOPHEN 5-325 TAB PO PRN ×2 (07:59→20:04)
[2017-11-11] MEDS: FERROUS SULFATE 325 MG TAB PO SCH ×2 (08:01→16:23)
[2017-11-11] MEDS: LACTOBACILLUS ACIDOPHILUS (FLORANEX) TAB PO SCH ×3 (08:02→16:23)
[2017-11-11] MEDS: CHECK FENTANYL PATCH PLACEMENT SCH ×3 (08:02→16:21)
[2017-11-11] MEDS: MAGNESIUM OXIDE 400 MG TAB PO SCH (08:03)
[2017-11-11] MEDS: POTASSIUM CHLORIDE 10 MEQ TABCR PO SCH ×2 (08:03→19:57)
[2017-11-11] MEDS: MULTIVITAMIN TAB PO SCH (08:04)
[2017-11-11] MEDS: PANTOprazole SOD 40 MG TAB PO SCH ×2 (08:04→19:57)
[2017-11-11] MEDS: PAROXETINE 20 MG TAB PO SCH (08:05)
[2017-11-11] MEDS: GABAPENTIN 100 MG CAP PO SCH (08:05)
[2017-11-11] MEDS: FAMOTIDINE 20 MG TAB PO SCH (08:05)
[2017-11-11] MEDS: ASCORBIC ACID 500 MG TAB PO SCH (08:06)
[2017-11-11] MEDS: METOPROLOL SUCC 25MG EXT REL TAB PO SCH ×2 (08:06→19:58)
[2017-11-11 08:09] LABS: CALCIUM 9.5 mg/dl (8.5-10.1); CREATININE 1.56 mg/dl (0.60-1.20)
[2017-11-11] MEDS: DOCUSATE SODIUM 100 MG CAP PO PRN ×2 (08:15→21:58)
[2017-11-11] MEDS: POLYETHYLENE (MIRALAX) 17 GM PACK PO PRN (08:16)
[2017-11-11] MEDS ORDERED: ACETAMINOPHEN 325 MG TAB PO SCH (10:45)
[2017-11-11] MEDS ORDERED: FUROSEMIDE INJ 10 MG in SYRINGE 0 ML IV ONE (13:45)
--- NOTE | 2017-11-11 14:22 | DIAGNOSTIC IMAGING REPORT ---
CHEST ONE VIEW PORTABLE HISTORY: Respiratory distress. pneumonia. pleural effusions COMPARISON: Chest 11/09/2017. FINDINGS: There is a left PICC which terminates in the expected location of the SVC. Large hiatus hernia is again noted. There is mild enlargement of the heart. No pneumothorax. Old, healed left-sided rib fractures. Chronic interstitial thickening persists. Patchy/nodular airspace opacities within the right midlung zone have slightly improved. There is an IVC filter present. IMPRESSION: 1. Slight improvement in the patchy/nodular airspace opacities within the right lobe. Recommend follow-up to ensure complete resolution. 2. Hiatus hernia. 3. Stable interstitial thickening which may be due to mild congestive change or a chronic interstitial process. 4. The left PICC terminates in the expected location of the SVC. Electronically signed by: Nirav Varma M.D. 11/11/2017 2:20 PM Dictated Date/Time: 11/11/2017 2:18 PM
[2017-11-11] MEDS: WARFARIN SOD 2 MG TAB PO SCH (16:22)
--- NOTE | 2017-11-11 16:43 | Progress Note ---
Internal Med Progress Note Date of Service: Nov 11, 2017. Provider Documentation: SUBJECTIVE: sob is better today has chronic pain has some cough afebrile eating ok no nausea ok to go to [employer] [facility] tomorrow OBJECTIVE: Vital Signs-as noted below Exam: General-alert and oriented. Not in distress ENT-normal hearing. Neck-No neck masses Lungs-CTA b/l no wheezing or crackles Heart-S1 and S2 heard regular rate and rhythm no murmurs Abdomen-soft Bowels sounds present non tender no distension Extremities- no erythema Neuro-alert and oriented moves extremities Lab data as noted below. 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 SOB 2/2 subacute bilateral PEs, possible HCAP PNA, possible ishem-hz-rxwludg diastolic CHF: PEs diagnosed 10/26. S/p IVC filter placement. On Coumadin INR 2.7 today. Low dose iv heparin stopped HCAP -Leukocytosis of 19 (was discharged with a wbc count of 9) CXR with patchy bilateral alveolar opacities are suspicious for superimposed PNA Recently on last admission was on vanco, imipenem and doxy on previous admission started on Vanco and cefepime ID on board await cx. Acute on chronic diastolic chf CXR also with cardiomegaly with mild pulmonary vascular congestion and trace bilateral pleural effusions Recent October 2017 echo with preserved EF ~70% received a dose of iv lasix will monitor stable Recent UTI: Klebsiella infection, treated with keflex no growth so far Diarrhea: will monitor Elevated troponin: mostly demand ischemia from above asymptomatic MYRTLE on chronic CKD III: Poor PO intake x 2 days Presented with Cr 1.79 (baseline low-mid 1s) received a dos of iv Lasix cr 1.5 today will f/u labs Sacral pressure ulcer: Treated with optifoam Wound care nurse consulted Cx growing gm positive cocci Repositioning q2H CAD: S/p stents in 2011 Stable home meds Aortic stenosis: S/p TAVR with bioprosthetic valve in 2015 Anemia of chronic disease: Chronic anemia from chronic gi bleeding Hgb 8.1 today on iron supplements to transfuse one unit today Polyarthritis: Cont chronic prednisone, fentanyl patch, gabapentin, percocet PRN prednisone dose increased DVT Ppx: Coumadin Code status: FULL code but NO MECH VENT per admission. PCP: Henny. Dispo:transferred to medical floor pt/ot social service for d/c planning [facility] in am Vital Signs: Date Time Temp Pulse Resp B/P (MAP) Pulse Ox O2 Delivery O2 Flow Rate FiO2 11/11/17 15:59 36.5 87 20 119/69 (86) 97 Nasal Cannula 2.0 11/11/17 15:27 36.5 87 20 119/69 97 2.0 11/11/17 14:55 76 16 97 Nasal Cannula 2.0 11/11/17 14:30 36.5 72 18 114/65 100 11/11/17 14:30 36.3 75 22 106/65 (79) 100 Nasal Cannula 2.0 11/11/17 13:30 36.4 83 18 106/64 98 11/11/17 13:30 36.3 76 16 105/65 11/11/17 13:03 Nasal Cannula 2.0 11/11/17 12:50 36.4 80 16 113/68 100 11/11/17 11:47 36.9 66 20 109/62 (78) 97 Nasal Cannula 2.0 11/11/17 08:00 100 Nasal Cannula 2.0 11/11/17 07:40 36.4 75 18 104/60 (75) 100 Nasal Cannula 2.0 11/11/17 07:10 70 16 96 Nasal Cannula 2.0 11/11/17 04:16 36.4 72 16 107/65 (79) 100 Nasal Cannula 2.0 11/11/17 04:00 Nasal Cannula 2.0 11/11/17 02:32 73 14 96 Nasal Cannula 2.0 11/10/17 23:59 Nasal Cannula 2.0 11/10/17 23:15 36.3 74 20 98/52 (67) 100 Nasal Cannula 2.0 11/10/17 20:00 100 Room Air 2.0 11/10/17 19:44 36.5 77 24 98/59 (72) 100 Room Air 11/10/17 19:25 73 18 98 Nasal Cannula 2.0 Lab Results: Results Past 24 Hours Test 11/10/17 19:03 11/11/17 02:09 11/11/17 05:17 11/11/17 05:19 Range/Units White Blood Count 5.97 10.19 4.8-10.8 K/uL Red Blood Count 2.95 2.75 4.2-5.4 M/uL Hemoglobin 8.5 8.1 12.0-16.0 g/dL Hematocrit 26.8 25.0 37-47 % Mean Corpuscular Volume 90.8 90.9 80-100 fL Mean Corpuscular Hemoglobin 28.8 29.5 25-34 pg Mean Corpuscular Hemoglobin Concent 31.7 32.4 32-36 g/dl Platelet Count 279 289 130-400 K/uL Mean Platelet Volume 9.4 9.7 7.4-10.4 fL Neutrophils (%) (Auto) 91.1 86.3 % Lymphocytes (%) (Auto) 6.5 7.6 % Monocytes (%) (Auto) 2.2 5.8 % Eosinophils (%) (Auto) 0.0 0.0 % Basophils (%) (Auto) 0.0 0.0 % Neutrophils # (Auto) 5.44 8.80 1.4-6.5 K/uL Lymphocytes # (Auto) 0.39 0.77 1.2-3.4 K/uL Monocytes # (Auto) 0.13 0.59 0.11-0.59 K/uL Eosinophils # (Auto) 0.00 0.00 0-0.5 K/uL Basophils # (Auto) 0.00 0.00 0-0.2 K/uL RDW Standard Deviation 54.6 54.2 36.4-46.3 fL RDW Coefficient of Variation 16.2 16.2 11.5-14.5 % Immature Granulocyte % (Auto) 0.2 0.3 % Immature Granulocyte # (Auto) 0.01 0.03 0.00-0.02 K/uL Hypochromasia PRESENT Activated Partial Thromboplast Time 39.1 104.2 21.0-31.0 SECONDS Partial Thromboplastin Ratio 1.5 4.0 Prothrombin Time 28.1 9.0-12.0 SECONDS Prothromb Time International Ratio 2.7 0.9-1.1 Large Platelets 2+ Sodium Level 132 136-145 mmol/L Potassium Level 4.0 3.5-5.1 mmol/L Chloride Level 96 98-107 mmol/L Carbon Dioxide Level 29 21-32 mmol/L Anion Gap 6.0 3-11 mmol/L Blood Urea Nitrogen 43 7-18 mg/dl Creatinine 1.56 1.56 0.60-1.20 mg/dl Est Creatinine Clear Calc Drug Dose 23.2 23.2 ml/min Estimated GFR () 35.0 35.0 Estimated GFR (Non- 30.2 30.2 BUN/Creatinine Ratio 27.5 10-20 Random Glucose 124 70-99 mg/dl Calcium Level 9.5 8.5-10.1 mg/dl Erythrocyte Sedimentation Rate 37 0-21 mm/hr C-Reactive Protein 5.97 0-0.29 mg/dl
[2017-11-11] MEDS: CEFEPIME IV 2,000 MG in SYRINGE 7.5 ML IV SCH (17:34)
[2017-11-12] VITALS (9 sets, daily range): BP systolic 101–145; BP diastolic 63–74; PULSE 68–84; TEMP 36.5–37; O2SAT 94–99
[2017-11-12] MEDS: CHECK FENTANYL PATCH PLACEMENT SCH ×3 (00:41→15:18)
[2017-11-12] MEDS: LEVALBUTEROL 0.63MG/3 ML NEB INH SCH ×4 (01:38→19:30)
[2017-11-12] MEDS: IPRATROPIUM BROMIDE NEB SOLN 0.02% 2.5 ML VIAL INH SCH ×4 (01:38→19:30)
[2017-11-12 05:18] LABS: HEMOGLOBIN 9.7 g/dL (12.0-16.0); MEAN CELL VOLUME 91.2 fL (80-100); MEAN CORPUSCULAR HEMOGLOBIN 29.5 pg (25-34); MEAN PLATELET VOLUME 9.6 fL (7.4-10.4); PLATELET COUNT 268 K/uL (130-400); RED CELL DISTRIBUTION WIDTH CV 16.5 % (11.5-14.5); RED CELL DISTRIBUTION WIDTH SD 54.6 fL (36.4-46.3)
[2017-11-12 05:30] LABS: MEAN CORPUSCULAR HGB CONC 32.3 g/dl (32-36)
[2017-11-12] MEDS ORDERED: VANCOMYCIN TROUGH ONE (05:30)
[2017-11-12 05:35] LABS: PTT PATIENT 38.3 SECONDS (21.0-31.0)
[2017-11-12 05:37] LABS: INR 4.7 (0.9-1.1)
[2017-11-12] MEDS: VANCOMYCIN IV 1,000 MG in SODIUM CHLORIDE 0.9% 250ML 250 ML IV SCH (05:49)
[2017-11-12] MEDS: METOPROLOL SUCC 25MG EXT REL TAB PO SCH ×2 (07:48→20:40)
[2017-11-12] MEDS: POLYETHYLENE (MIRALAX) 17 GM PACK PO PRN (07:48)
[2017-11-12] MEDS: LACTOBACILLUS ACIDOPHILUS (FLORANEX) TAB PO SCH ×3 (07:49→17:02)
[2017-11-12] MEDS: GABAPENTIN 100 MG CAP PO SCH (07:49)
[2017-11-12] MEDS: MULTIVITAMIN TAB PO SCH (07:49)
[2017-11-12] MEDS: FAMOTIDINE 20 MG TAB PO SCH (07:50)
[2017-11-12] MEDS: FERROUS SULFATE 325 MG TAB PO SCH ×2 (07:51→17:02)
[2017-11-12] MEDS: MAGNESIUM OXIDE 400 MG TAB PO SCH (07:51)
[2017-11-12] MEDS: PAROXETINE 20 MG TAB PO SCH (07:51)
[2017-11-12] MEDS: POTASSIUM CHLORIDE 10 MEQ TABCR PO SCH ×2 (07:53→20:42)
[2017-11-12] MEDS: PANTOprazole SOD 40 MG TAB PO SCH ×2 (07:53→20:41)
[2017-11-12] MEDS: ASCORBIC ACID 500 MG TAB PO SCH (07:54)
[2017-11-12] MEDS: OXYCODONE/ACETAMINOPHEN 5-325 TAB PO PRN ×3 (08:05→20:49)
--- NOTE | 2017-11-12 08:44 | Pharmacy Progress Note ---
Pharmacy Abx Dose Short Note Date of Service Nov 12, 2017. Assessment & Plan Assessment 82 year old female receiving vancomycin/cefepime for treatment of HCAP Day # 4 of antimicrobial therapy. ID following Plan Vancomycin * Trough level of 24.3 mcg/mL is supratherapeutic, drawn appropriately. * Dosing currently 1000 mg q24 hours, patient received dose this AM, placed on hold. Will check random level in AM to determine next scheduled dose. Possibly decrease to 750 mg q24H * Goal trough level 15-20 mcg/mL * Random level 11/13 @ 0210 Pharmacy will continue to follow and will adjust dose/frequency as necessary. Thank you.
[2017-11-12] MEDS ORDERED: POLYETHYLENE (MIRALAX) 17 GM PACK PO PRN (12:45)
[2017-11-12] MEDS ORDERED: DOCUSATE SODIUM/SENNA 50/8.6MG TAB PO ONE (12:45)
--- NOTE | 2017-11-12 16:26 | Progress Note ---
Internal Med Progress Note Date of Service: Nov 12, 2017. Provider Documentation: SUBJECTIVE: feeling weak moved bowels after taking stool softener afebrile has chronic pain likes to stay one more day before discharge to [facility] OBJECTIVE: Vital Signs-as noted below Exam: General-alert and oriented. Not in distress ENT-normal hearing. Neck-No neck masses Lungs-CTA b/l no wheezing or crackles Heart-S1 and S2 heard regular rate and rhythm no murmurs Abdomen-soft Bowels sounds present non tender no distension Extremities- no erythema Neuro-alert and oriented moves extremities Lab data as noted below. 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 SOB 2/2 subacute bilateral PEs, possible HCAP PNA, possible ukbac-pv-[id number] diastolic CHF: PEs diagnosed 10/26. S/p IVC filter placement. On Coumadin INR 4.7 today. will hold coumadin HCAP -Leukocytosis of 19 (was discharged with a wbc count of 9) CXR with patchy bilateral alveolar opacities are suspicious for superimposed PNA Recently on last admission was on vanco, imipenem and doxy on previous admission started on Vanco and cefepime#3. repeat cxr improving ID on board and recommends atleast 5 days of iv abx patient has a picc line placed as cannot get peripheral lines Acute on chronic diastolic chf CXR also with cardiomegaly with mild pulmonary vascular congestion and trace bilateral pleural effusions Recent October 2017 echo with preserved EF ~70% received a dose of iv lasix will monitor stable f/u cxr Recent UTI: Klebsiella infection, treated with keflex no growth so far Diarrhea: will monitor currently constipated Elevated troponin: mostly demand ischemia from above asymptomatic MYRTLE on chronic CKD III: Poor PO intake x 2 days Presented with Cr 1.79 (baseline low-mid 1s) received a dos of iv Lasix cr 1.5 today will f/u labs Sacral pressure ulcer: Treated with optifoam Wound care nurse consulted Cx growing gm positive cocci Repositioning q2H CAD: S/p stents in 2011 Stable home meds Aortic stenosis: S/p TAVR with bioprosthetic valve in 2016 Anemia of chronic disease: Chronic anemia from chronic gi bleeding Hgb 8.1 11/11/17 on iron supplements s/p transfused one unit yesterday 11/11/17 hb 9.7 today Polyarthritis: Cont chronic prednisone, fentanyl patch, gabapentin, percocet PRN prednisone dose increased DVT Ppx: Coumadin Code status: FULL code but NO MECH VENT per admission. PCP: Henny. Dispo: pt/ot social service for d/c planning [facility] in am Vital Signs: Date Time Temp Pulse Resp B/P (MAP) Pulse Ox O2 Delivery O2 Flow Rate FiO2 11/12/17 14:40 73 16 96 Room Air 11/12/17 14:19 37.0 68 16 101/63 (76) 96 11/12/17 08:00 Nasal Cannula 2.0 11/12/17 07:23 36.8 81 22 145/73 (97) 99 11/12/17 06:57 82 16 99 Nasal Cannula 2.0 11/12/17 00:00 Nasal Cannula 2.0 11/11/17 23:25 36.4 69 18 111/66 (81) 100 Room Air 11/11/17 19:58 80 93/55 (68) 11/11/17 19:05 82 16 98 Nasal Cannula 2.0 Lab Results: Results Past 24 Hours Test 11/12/17 05:05 Range/Units White Blood Count 10.50 4.8-10.8 K/uL Red Blood Count 3.29 4.2-5.4 M/uL Hemoglobin 9.7 12.0-16.0 g/dL Hematocrit 30.0 37-47 % Mean Corpuscular Volume 91.2 80-100 fL Mean Corpuscular Hemoglobin 29.5 25-34 pg Mean Corpuscular Hemoglobin Concent 32.3 32-36 g/dl RDW Standard Deviation 54.6 36.4-46.3 fL RDW Coefficient of Variation 16.5 11.5-14.5 % Platelet Count 268 130-400 K/uL Mean Platelet Volume 9.6 7.4-10.4 fL Prothrombin Time 47.5 9.0-12.0 SECONDS Prothromb Time International Ratio 4.7 0.9-1.1 Activated Partial Thromboplast Time 38.3 21.0-31.0 SECONDS Partial Thromboplastin Ratio 1.5 Vancomycin Level Trough 24.3 SEE COMMENT mcg/ml
--- NOTE | 2017-11-12 17:46 | Infectious Disease Progress Nt ---
Progress Note Date of Service Nov 12, 2017. Subjective Pt evaluation today including: conversation w/ patient, physical exam, chart review, lab review, review of studies, conversation w/ customer service consultant, review of inpatient medication list Feeling slightly better today. Less shortness of breath and cough. Still weak and fatigued. Remains afebrile. All Other Systems: Reviewed and Negative Medications Current Inpatient Medications Medications (Trade) Dose Ordered Sig/Rosi Route Start Time Stop Time Status Last Admin Dose Admin Acetaminophen (Tylenol Tab) 650 mg Q4H PRN PO 11/09/17 13:00 12/09/17 12:59 11/09/17 14:19 650 MG Ondansetron HCl (Zofran Inj) 4 mg Q6H PRN IV 11/09/17 13:00 12/09/17 12:59 Miscellaneous Information (Consult) 1 ea UD PRN N/A 11/09/17 13:21 12/09/17 13:20 Cefepime HCl (Consult) 1 ea UD PRN N/A 11/09/17 13:30 12/09/17 13:29 Ipratropium [place] (Atrovent 0.02% 0.5MG/2.5ML Neb) 0.5 mg Q6R INH 11/09/17 15:00 12/09/17 14:59 11/12/17 14:22 0.5 MG Levalbuterol (Xopenex 0.63 Mg/ 3 Ml Neb) 0.63 mg Q6R INH 11/09/17 15:00 12/09/17 14:59 11/12/17 14:22 0.63 MG Docusate Sodium (coLACE CAP) 100 mg BID PRN PO 11/09/17 13:30 12/09/17 13:29 11/11/17 21:58 100 MG Famotidine (Pepcid Tab) 20 mg DAILY PO 11/10/17 09:00 12/10/17 08:59 11/12/17 07:50 20 MG Fentanyl (Duragesic Patch) 12 mcg Q72H TD 11/10/17 09:00 11/24/17 08:59 11/10/17 09:13 12 MCG Ferrous Sulfate (Feosol Tab) 325 mg BIDM PO 11/09/17 16:45 12/09/17 16:44 11/12/17 17:02 325 MG Gabapentin (Neurontin Cap) 100 mg DAILY PO 11/10/17 09:00 12/10/17 08:59 11/12/17 07:49 100 MG Lactobacillus Acidophilus (Floranex Tab) 1 tab TIDM PO 11/09/17 16:45 12/09/17 17:59 11/12/17 17:02 1 TAB Lorazepam (Ativan Tab) 0.5 mg HS PRN PO 11/09/17 13:30 12/09/17 13:29 11/09/17 20:46 0.5 MG Magnesium Hydroxide (Milk Of Magnesia Susp) 30 ml DAILY PRN PO 11/09/17 13:30 12/09/17 13:29 Magnesium Oxide (Mag-Ox Tab) 400 mg DAILY PO 11/10/17 09:00 12/10/17 08:59 11/12/17 07:51 400 MG Metoprolol Succinate (Toprol Xl Tab) 12.5 mg BID PO 11/09/17 21:00 12/09/17 20:59 11/12/17 07:48 12.5 MG Multivitamins (Multivitamin Tab) 0.5 tab DAILY PO 11/10/17 09:00 12/10/17 08:59 11/12/17 07:49 0.5 TAB Pantoprazole Sodium (Protonix Tab) 40 mg BID PO 11/09/17 21:00 12/09/17 20:59 11/12/17 07:53 40 MG Warfarin Sodium (Coumadin Tab) 2 mg DAILY@16 PO 11/09/17 16:00 12/09/17 15:59 Future Hold 11/11/17 16:22 2 MG Ascorbic Acid (Vitamin C Tab) 250 mg DAILY PO 11/10/17 09:00 12/10/17 08:59 11/12/17 07:54 250 MG Miscellaneous Information (Order Awaiting Action) 1 ea QS N/A 11/09/17 16:00 12/09/17 15:59 Paroxetine HCl (pAXil TAB) 40 mg QAM PO 11/10/17 09:00 12/10/17 08:59 11/12/17 07:51 40 MG Potassium Chloride (Klor-Con M10) 10 meq BID PO 11/09/17 21:00 12/09/17 20:59 11/12/17 07:53 10 MEQ Miscellaneous (Fentanyl Patch Remove & Waste) 1 ea Q3D@0859 N/A 11/10/17 08:59 12/10/17 08:58 11/10/17 09:13 1 EA Miscellaneous Information (Check Fentanyl Patch Placement) 1 ea QS N/A 11/09/17 16:00 12/09/17 15:59 11/12/17 15:18 1 EA Vancomycin HCl 1000 mg/Sodium Chloride 270 ml @ 125 mls/hr Q24H IV 11/10/17 06:00 11/16/17 05:59 Future Hold 11/12/17 05:49 125 MLS/HR Miscellaneous (Iv Fluids Completed) 1 ea PRN PRN N/A 11/09/17 15:15 11/09/18 15:14 Tramadol HCl (Ultram Tab) 50 mg Q4H PRN PO 11/09/17 15:30 12/09/17 15:29 11/10/17 12:22 50 MG Oxycodone/ Acetaminophen (Percocet 5-325mg Tab) 1 tab Q4 PRN PO 11/10/17 16:00 11/23/17 13:29 11/12/17 15:23 1 TAB Cefepime HCl 2000 mg/Syringe 20 ml @ 5 mls/min Q24H IV 11/11/17 18:00 11/15/17 23:59 11/11/17 17:34 5 MLS/MIN Heparin Sodium (Porcine) (Heparin 10 Unit/ ml 5 ml Flush) 5 ml PRN PRN FLUSH 11/11/17 17:15 12/11/17 17:14 11/12/17 05:31 5 ML Senna/Docusate Sodium (Senokot S Tab) 2 tab HS PO 11/12/17 21:00 12/12/17 20:59 Polyethylene (Miralax Powder Packet) 17 gm DAILY PRN PO 11/12/17 12:45 12/12/17 12:44 Prednisone (PredniSONE TAB) 20 mg DAILY PO 11/13/17 08:00 12/10/17 08:59 Objective Vital Signs Date Time Temp Pulse Resp B/P (MAP) Pulse Ox O2 Delivery O2 Flow Rate FiO2 11/12/17 17:04 98 Room Air 11/12/17 16:00 94 11/12/17 16:00 Room Air 11/12/17 14:40 73 16 96 Room Air 11/12/17 14:19 37.0 68 16 101/63 (76) 96 11/12/17 08:00 Nasal Cannula 2.0 11/12/17 07:23 36.8 81 22 145/73 (97) 99 11/12/17 06:57 82 16 99 Nasal Cannula 2.0 11/12/17 00:00 Nasal Cannula 2.0 11/11/17 23:25 36.4 69 18 111/66 (81) 100 Room Air 11/11/17 19:58 80 93/55 (68) 11/11/17 19:05 82 16 98 Nasal Cannula 2.0 Physical Exam General Appearance: WD/WN, no apparent distress Eyes: normal inspection, EOMI, sclerae normal ENT: normal ENT inspection, pharynx normal Neck: supple, no adenopathy, thyroid normal, trachea midline Respiratory/Chest: chest non-tender, lungs clear, normal breath sounds, no respiratory distress Cardiovascular: regular rate, rhythm, no gallop, no murmur Abdomen: normal bowel sounds, non tender, soft, no organomegaly Extremities: non-tender, no calf tenderness Neurologic/Psychiatric: alert, oriented x 3 Skin: normal color, warm/dry, no rash Lymphatic: no adenopathy Laboratory Results Last 24 Hours Test 11/12/17 05:05 White Blood Count 10.50 K/uL Red Blood Count 3.29 M/uL Hemoglobin 9.7 g/dL Hematocrit 30.0 % Mean Corpuscular Volume 91.2 fL Mean Corpuscular Hemoglobin 29.5 pg Mean Corpuscular Hemoglobin Concent 32.3 g/dl RDW Standard Deviation 54.6 fL RDW Coefficient of Variation 16.5 % Platelet Count 268 K/uL Mean Platelet Volume 9.6 fL Prothrombin Time 47.5 SECONDS Prothromb Time International Ratio 4.7 Activated Partial Thromboplast Time 38.3 SECONDS Partial Thromboplastin Ratio 1.5 Vancomycin Level Trough 24.3 mcg/ml Assessment and Plan Pt. with probable HCAP, appears to be responding to current Rx. Would treat with minimum of 5 days Rx, depending on clinical response. Will follow.
[2017-11-12] MEDS: CEFEPIME IV 2,000 MG in SYRINGE 7.5 ML IV SCH (19:09)
[2017-11-12] MEDS: DOCUSATE SODIUM/SENNA 50/8.6MG TAB PO SCH (20:48)
[2017-11-13] MEDS: CHECK FENTANYL PATCH PLACEMENT SCH ×3 (00:01→16:27)
[2017-11-13] MEDS: IPRATROPIUM BROMIDE NEB SOLN 0.02% 2.5 ML VIAL INH SCH ×4 (02:06→19:35)
[2017-11-13] MEDS: LEVALBUTEROL 0.63MG/3 ML NEB INH SCH ×4 (02:06→19:36)
[2017-11-13 05:12] LABS: EOS % 0.1 %; EOS ABS # 0.01 K/uL (0-0.5); HEMATOCRIT 29.5 % (37-47); HEMOGLOBIN 9.5 g/dL (12.0-16.0); IG# 0.03 K/uL (0.00-0.02); LYMPH % 10.2 %; LYMPH ABS # 1.03 K/uL (1.2-3.4); MEAN CELL VOLUME 91.9 fL (80-100); MEAN CORPUSCULAR HEMOGLOBIN 29.6 pg (25-34); MEAN CORPUSCULAR HGB CONC 32.2 g/dl (32-36); MEAN PLATELET VOLUME 9.2 fL (7.4-10.4); NEUT % 82.4 %; NEUT ABS # 8.29 K/uL (1.4-6.5); PLATELET COUNT 258 K/uL (130-400); RED CELL DISTRIBUTION WIDTH CV 16.7 % (11.5-14.5); WHITE BLOOD COUNT 10.06 K/uL (4.8-10.8)
[2017-11-13 05:50] LABS: CALCIUM 9.5 mg/dl (8.5-10.1); CREATININE 1.33 mg/dl (0.60-1.20); POTASSIUM 4.4 mmol/L (3.5-5.1)
[2017-11-13 07:05] VITALS: BP 125/79; PULSE 70; TEMP 36.3; O2SAT 100
[2017-11-13 07:15] VITALS: PULSE 70; O2SAT 99
--- NOTE | 2017-11-13 08:45 | DIAGNOSTIC IMAGING REPORT ---
CHEST ONE VIEW PORTABLE HISTORY: 82 years-old Female pneumonia acute pneumonia. COMPARISON: Chest radiograph 11/11/2017, chest radiograph 6 11/09/2017 TECHNIQUE: Portable AP view of the chest FINDINGS: Cardiac silhouette is again enlarged. Atherosclerosis of the aorta. Left-sided PICC appears unchanged. Endograft of the ascending thoracic aorta. IVC filter noted. Chronic interstitial coarsening without pneumothorax. Persistent blunting of the left costophrenic angle, possibly reflecting a trace pleural effusion. Mild right hemidiaphragmatic elevation. Hiatal hernia. Patchy nodular airspace opacities throughout the right upper lung and right midlung redemonstrated. Linear subsegmental bibasilar opacities suggest atelectasis. Degenerative changes of the spine and shoulders with sigmoidal scoliosis. Remote appearing left-sided rib fractures. IMPRESSION: 1. Persistent nodular opacities about the right midlung and right upper lobe, suspicious for pneumonia. Follow-up imaging to document resolution is recommended. 2. Cardiomegaly without overt pulmonary edema. 3. Chronic interstitial coarsening. 4. Hiatal hernia. The above report was generated using voice recognition software. It may contain grammatical, syntax or spelling errors. Electronically signed by: Joshua Feng M.D. 11/13/2017 8:43 AM Dictated Date/Time: 11/13/2017 8:41 AM
[2017-11-13] MEDS: LACTOBACILLUS ACIDOPHILUS (FLORANEX) TAB PO SCH ×3 (08:49→18:12)
[2017-11-13] MEDS: POTASSIUM CHLORIDE 10 MEQ TABCR PO SCH ×2 (08:49→20:29)
[2017-11-13] MEDS: FAMOTIDINE 20 MG TAB PO SCH (08:49)
[2017-11-13] MEDS: MAGNESIUM OXIDE 400 MG TAB PO SCH (08:50)
[2017-11-13] MEDS: PAROXETINE 20 MG TAB PO SCH (08:50)
[2017-11-13] MEDS: ASCORBIC ACID 500 MG TAB PO SCH (08:51)
[2017-11-13] MEDS: FENTANYL PATCH REMOVE & WASTE SCH (08:51)
[2017-11-13] MEDS: MULTIVITAMIN TAB PO SCH (08:52)
[2017-11-13] MEDS: METOPROLOL SUCC 25MG EXT REL TAB PO SCH ×2 (08:52→20:28)
[2017-11-13] MEDS: PANTOprazole SOD 40 MG TAB PO SCH ×2 (08:52→20:28)
[2017-11-13] MEDS: FENTANYL 12 MCG/HR TDSY TD SCH (08:53)
[2017-11-13] MEDS: GABAPENTIN 100 MG CAP PO SCH (08:54)
[2017-11-13] MEDS: FERROUS SULFATE 325 MG TAB PO SCH ×2 (08:54→18:12)
[2017-11-13] MEDS: OXYCODONE/ACETAMINOPHEN 5-325 TAB PO PRN ×3 (09:01→20:56)
--- NOTE | 2017-11-13 09:30 | Pharmacy Progress Note ---
Pharmacy Abx Dose Progress Nt Date of Service Nov 13, 2017. Pharmacy Dosing Scope The patient is currently receiving the following antimicrobial agents per Pharmacy consult: Vancomycin 1,000 mg IV every 24 hours Cefepime 2,000 mg IV every 24 hours Objective Height (Feet): 5 Height (Inches): 4.00 Weight (Kilograms): 59.000 Vital Signs (Past 12Hrs) Vital Signs Past 12 Hours Date Time Temp Pulse Resp B/P (MAP) Pulse Ox O2 Delivery O2 Flow Rate FiO2 11/13/17 07:15 70 16 99 Room Air 11/13/17 07:05 36.3 70 16 125/79 (94) 100 11/13/17 00:00 Room Air 11/12/17 23:01 36.5 71 19 123/73 (90) 97 Room Air Lab Results (24Hrs) Laboratory Tests (24 Hours) Test 11/13/17 05:04 White Blood Count 10.06 K/uL (4.8-10.8) Red Blood Count 3.21 M/uL (4.2-5.4) L Hemoglobin 9.5 g/dL (12.0-16.0) L Hematocrit 29.5 % (37-47) L Mean Corpuscular Volume 91.9 fL (80-100) Mean Corpuscular Hemoglobin 29.6 pg (25-34) Mean Corpuscular Hemoglobin Concent 32.2 g/dl (32-36) Platelet Count 258 K/uL (130-400) Mean Platelet Volume 9.2 fL (7.4-10.4) Neutrophils (%) (Auto) 82.4 % Lymphocytes (%) (Auto) 10.2 % Monocytes (%) (Auto) 7.0 % Eosinophils (%) (Auto) 0.1 % Basophils (%) (Auto) 0.0 % Neutrophils # (Auto) 8.29 K/uL (1.4-6.5) H Lymphocytes # (Auto) 1.03 K/uL (1.2-3.4) L Monocytes # (Auto) 0.70 K/uL (0.11-0.59) H Eosinophils # (Auto) 0.01 K/uL (0-0.5) Basophils # (Auto) 0.00 K/uL (0-0.2) Micro Results Date/Time Source Procedure Growth Status 11/09/17 09:31 Blood Blood Culture - Preliminary NO GROWTH TO DATE. Resulted 11/09/17 09:24 Blood Blood Culture - Preliminary NO GROWTH TO DATE. Resulted 11/09/17 13:40 Nasal MRSA DNA Surveillance Screen - Final Specimen Negative for MRSA by DNA Probe Complete 11/09/17 14:00 Stool Shiga Toxin Test - Final No E. Coli shiga toxin 1 or shiga tox... Complete 11/09/17 14:00 Stool Stool Culture - Final NO SALMONELLA ISOLATED,... Complete 11/09/17 13:40 Urine,Catheterized Urine Culture - Final NO GROWTH - LESS THAN 1,000 COLONIES/ML Complete 11/09/17 13:40 Skin Sacrum Gram Stain - Final Resulted 11/09/17 13:40 Wound Culture - Preliminary Corynebacterium Species Gamma Hemolytic Strep. Species Resulted Risk Factors for Resistance * Hospitalization for 48 hours or more within the past 90 days * Current hospitalization > 5 days * Antimicrobial use within the last 90 days Assessment & Plan Assessment 82 year old female receiving Vancomycin + Cefepime for treatment of HAP Day # 5/7 of antimicrobial therapy Scr/CrCl improving. Per provider documentation, pt is improving on current regimen of Vancomycin + cefepime. Plan Vancomycin IV * Trough level of 24 mcg/mL is upratherapeutic. * Decrease dose, continue same dosing interval. Change to 750 mg IV every 24 hours * Goal trough level for pulmonary penetration : 15 to 20 mcg/mL * Trough or random level ordered for: 11/15/17 to ensure trough is therapeutic in the event that therapy is continued beyond 7 days Pharmacy will continue to follow and will adjust dose/frequency as necessary. Thank you.
[2017-11-13] MEDS: VANCOMYCIN IV 750 MG in SODIUM CHLORIDE 0.9% 250ML 250 ML IV SCH (12:22)
[2017-11-13 14:16] VITALS: PULSE 78; O2SAT 97
[2017-11-13 14:55] VITALS: BP 109/66; PULSE 83; TEMP 36.6; O2SAT 100
--- NOTE | 2017-11-13 15:34 | Progress Note ---
Internal Med Progress Note Date of Service: Nov 13, 2017. 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 Not in distress ENT-normal hearing. Neck-No neck masses Lungs-CTA b/l no wheezing or crackles Heart-S1 and S2 heard regular rate and rhythm no murmurs Abdomen-soft Bowels sounds present non tender no distension Extremities- no erythema trace edema Neuro-alert and oriented moves extremities Lab data as noted below. 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 SOB 2/2 subacute bilateral PEs, possible HCAP PNA, possible bkqaj-[id number]-kqfucsg diastolic CHF: PEs diagnosed 10/26. S/p IVC filter placement. On Coumadin INR 5.0 today. will hold coumadin HCAP -Leukocytosis of 19 (was discharged with a wbc count of 9) CXR with patchy bilateral alveolar opacities are suspicious for superimposed PNA Recently on last admission was on vanco, imipenem and doxy on previous admission started on Vanco and cefepime#4. repeat cxr improving ID on board and recommends atleast 5 days of iv abx patient has a picc line placed as cannot get peripheral lines improving repeat cxr in one month Acute on chronic diastolic chf CXR also with cardiomegaly with mild pulmonary vascular congestion and trace bilateral pleural effusions Recent October 2017 echo with preserved EF ~70% received a dose of iv lasix will monitor stable no congestion on cxr Recent UTI: Klebsiella infection, treated with keflex no growth so far Diarrhea: will monitor currently constipated no complaints Elevated troponin: mostly demand ischemia from above asymptomatic MYRTLE on chronic CKD III: Poor PO intake x 2 days Presented with Cr 1.79 (baseline low-mid 1s) received a dos of iv Lasix cr 1.5 today will f/u labs Sacral pressure ulcer: Treated with optifoam Wound care nurse consulted Cx growing enterococcus- on iv vanco Repositioning q2H CAD: S/p stents in 2011 Stable home meds Aortic stenosis: S/p TAVR with bioprosthetic valve in 2016 Anemia of chronic disease: Chronic anemia from chronic gi bleeding Hgb 8.1 11/11/17 on iron supplements s/p transfused one unit yesterday 11/11/17 hb 9.5 today Polyarthritis: Cont chronic prednisone, fentanyl patch, gabapentin, percocet PRN prednisone dose increased DVT Ppx: Coumadin Code status: FULL code but NO MECH VENT per admission. PCP: Henny. Dispo: pt/ot social service for d/c planning possible health [facility] in today or in am Vital Signs: Date Time Temp Pulse Resp B/P (MAP) Pulse Ox O2 Delivery O2 Flow Rate FiO2 11/13/17 14:55 36.6 83 16 109/66 (80) 100 11/13/17 14:16 78 16 97 Room Air 11/13/17 08:45 Room Air 11/13/17 07:15 70 16 99 Room Air 11/13/17 07:05 36.3 70 16 125/79 (94) 100 11/13/17 00:00 Room Air 11/12/17 23:01 36.5 71 19 123/73 (90) 97 Room Air 11/12/17 20:38 84 20 121/74 (90) 96 Room Air 11/12/17 19:31 83 16 95 Room Air 11/12/17 17:04 98 Room Air 11/12/17 16:00 94 11/12/17 16:00 Room Air Lab Results: Results Past 24 Hours Test 11/13/17 05:04 Range/Units White Blood Count 10.06 4.8-10.8 K/uL Red Blood Count 3.21 4.2-5.4 M/uL Hemoglobin 9.5 12.0-16.0 g/dL Hematocrit 29.5 37-47 % Mean Corpuscular Volume 91.9 80-100 fL Mean Corpuscular Hemoglobin 29.6 25-34 pg Mean Corpuscular Hemoglobin Concent 32.2 32-36 g/dl Platelet Count 258 130-400 K/uL Mean Platelet Volume 9.2 7.4-10.4 fL Neutrophils (%) (Auto) 82.4 % Lymphocytes (%) (Auto) 10.2 % Monocytes (%) (Auto) 7.0 % Eosinophils (%) (Auto) 0.1 % Basophils (%) (Auto) 0.0 % Neutrophils # (Auto) 8.29 1.4-6.5 K/uL Lymphocytes # (Auto) 1.03 1.2-3.4 K/uL Monocytes # (Auto) 0.70 0.11-0.59 K/uL Eosinophils # (Auto) 0.01 0-0.5 K/uL Basophils # (Auto) 0.00 0-0.2 K/uL RDW Standard Deviation 56.0 36.4-46.3 fL RDW Coefficient of Variation 16.7 11.5-14.5 % Immature Granulocyte % (Auto) 0.3 % Immature Granulocyte # (Auto) 0.03 0.00-0.02 K/uL Prothrombin Time 50.4 9.0-12.0 SECONDS Prothromb Time International Ratio 5.0 0.9-1.1 Activated Partial Thromboplast Time 35.0 21.0-31.0 SECONDS Partial Thromboplastin Ratio 1.3 Sodium Level 136 136-145 mmol/L Potassium Level 4.4 3.5-5.1 mmol/L Chloride Level 106 98-107 mmol/L Carbon Dioxide Level 26 21-32 mmol/L Anion Gap 4.0 3-11 mmol/L Blood Urea Nitrogen 36 7-18 mg/dl Creatinine 1.33 0.60-1.20 mg/dl Est Creatinine Clear Calc Drug Dose 27.2 ml/min Estimated GFR () 42.4 Estimated GFR (Non- 36.6 BUN/Creatinine Ratio 26.8 10-20 Random Glucose 88 70-99 mg/dl Calcium Level 9.5 8.5-10.1 mg/dl Magnesium Level 2.1 1.8-2.4 mg/dl Random Vancomycin Level 24.0 mcg/ml
[2017-11-13] MEDS: CEFEPIME IV 2,000 MG in SYRINGE 7.5 ML IV SCH (18:12)
[2017-11-13 19:39] VITALS: PULSE 71; O2SAT 98
[2017-11-13 20:26] VITALS: BP 105/63; PULSE 80
[2017-11-13] MEDS: DOCUSATE SODIUM/SENNA 50/8.6MG TAB PO SCH (20:30)
[2017-11-13] MEDS: LORAZEPAM 0.5 MG TAB PO PRN (20:31)
[2017-11-14] VITALS (11 sets, daily range): BP systolic 100–149; BP diastolic 64–86; PULSE 63–82; TEMP 36.5–36.7; O2SAT 93–100
[2017-11-14] MEDS: LEVALBUTEROL 0.63MG/3 ML NEB INH SCH ×4 (02:00→18:57)
[2017-11-14] MEDS: IPRATROPIUM BROMIDE NEB SOLN 0.02% 2.5 ML VIAL INH SCH ×4 (02:00→18:57)
[2017-11-14 04:54] LABS: HEMATOCRIT 29.3 % (37-47); HEMOGLOBIN 9.3 g/dL (12.0-16.0); MEAN CELL VOLUME 92.7 fL (80-100); MEAN CORPUSCULAR HEMOGLOBIN 29.4 pg (25-34); MEAN PLATELET VOLUME 9.1 fL (7.4-10.4); PLATELET COUNT 237 K/uL (130-400); RED CELL DISTRIBUTION WIDTH CV 16.5 % (11.5-14.5); RED CELL DISTRIBUTION WIDTH SD 56.1 fL (36.4-46.3); WHITE BLOOD COUNT 8.71 K/uL (4.8-10.8)
[2017-11-14 05:09] LABS: MEAN CORPUSCULAR HGB CONC 31.7 g/dl (32-36)
[2017-11-14 05:13] LABS: INR 3.4 (0.9-1.1); PTT PATIENT 36.2 SECONDS (21.0-31.0)
[2017-11-14] MEDS: CHECK FENTANYL PATCH PLACEMENT SCH ×4 (08:19→23:17)
[2017-11-14] MEDS: MULTIVITAMIN TAB PO SCH (08:23)
[2017-11-14] MEDS: METOPROLOL SUCC 25MG EXT REL TAB PO SCH ×2 (08:24→20:54)
[2017-11-14] MEDS: LACTOBACILLUS ACIDOPHILUS (FLORANEX) TAB PO SCH ×3 (08:24→16:03)
[2017-11-14] MEDS: ASCORBIC ACID 500 MG TAB PO SCH (08:25)
[2017-11-14] MEDS: PANTOprazole SOD 40 MG TAB PO SCH ×2 (08:25→20:52)
[2017-11-14] MEDS: POTASSIUM CHLORIDE 10 MEQ TABCR PO SCH ×2 (08:25→20:53)
[2017-11-14] MEDS: MAGNESIUM OXIDE 400 MG TAB PO SCH (08:26)
[2017-11-14] MEDS: FERROUS SULFATE 325 MG TAB PO SCH ×2 (08:26→16:04)
[2017-11-14] MEDS: PAROXETINE 20 MG TAB PO SCH (08:26)
[2017-11-14] MEDS: GABAPENTIN 100 MG CAP PO SCH (08:26)
[2017-11-14] MEDS: FAMOTIDINE 20 MG TAB PO SCH (08:27)
[2017-11-14] MEDS: OXYCODONE/ACETAMINOPHEN 5-325 TAB PO PRN (11:36)
[2017-11-14] MEDS: VANCOMYCIN IV 750 MG in SODIUM CHLORIDE 0.9% 250ML 250 ML IV SCH (12:02)
[2017-11-14 13:19] LABS: CREATININE 1.19 mg/dl (0.60-1.20)
--- NOTE | 2017-11-14 16:30 | Progress Note ---
Internal Med Progress Note Date of Service: Nov 14, 2017. Provider Documentation: SUBJECTIVE: resting comfortably on and off sob and chest tightness afebrile poor appetite moving bowels ok has chronic pain 'request for Ativan at night OBJECTIVE: Vital Signs-as noted below Exam: General-alert and oriented. Not in distress ENT-normal hearing. Neck-No neck masses Lungs-CTA b/l no wheezing or crackles Heart-S1 and S2 heard regular rate and rhythm no murmurs Abdomen-soft Bowels sounds present non tender no distension Extremities- no erythema trace edema Neuro-alert and oriented moves extremities Lab data as noted below. 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 SOB 2/2 subacute bilateral PEs, possible HCAP PNA, possible qwheq-xb-rfilqil diastolic CHF: PEs diagnosed 10/26. S/p IVC filter placement. On Coumadin INR 5.0 today. will hold coumadin HCAP -Leukocytosis of 19 (was discharged with a wbc count of 9) CXR with patchy bilateral alveolar opacities are suspicious for superimposed PNA Recently on last admission was on vanco, imipenem and doxy on previous admission started on Vanco and cefepime#5. repeat cxr improving ID on board and recommends atleast 5 days of iv abx patient has a picc line placed as cannot get peripheral lines improving repeat cxr in one month stable Bacteremia one bottle positive for gm positive cooci contaminant? will f/u final cx Acute on chronic diastolic chf CXR also with cardiomegaly with mild pulmonary vascular congestion and trace bilateral pleural effusions Recent October 2017 echo with preserved EF ~70% received a dose of iv Lasix will monitor stable will give a dose of iv Lasix today and restart home Lasix in am Recent UTI: Klebsiella infection, treated with keflex no growth so far Diarrhea: will monitor currently constipated no complaints Elevated troponin: mostly demand ischemia from above asymptomatic MYRTLE on chronic CKD III: Poor PO intake x 2 days Presented with Cr 1.79 (baseline low-mid 1s) received a dos of iv Lasix cr 1.1 today will f/u labs Sacral pressure ulcer: Treated with optifoam Wound care nurse consulted Cx growing enterococcus- on iv vanco Repositioning q2H CAD: S/p stents in 2012 Stable home meds Aortic stenosis: S/p TAVR with bioprosthetic valve in 2016 Anemia of chronic disease: Chronic anemia from chronic gi bleeding Hgb 8.1 11/11/17 on iron supplements s/p transfused one unit yesterday 11/11/17 hb 9.2 today Polyarthritis: Cont chronic prednisone, fentanyl patch, gabapentin, percocet PRN prednisone dose increased DVT Ppx: Coumadin Code status: FULL code but NO MECH VENT per admission. PCP: Henny. Dispo: pt/ot social service for d/c planning [facility] on Thursday Vital Signs: Date Time Temp Pulse Resp B/P (MAP) Pulse Ox O2 Delivery O2 Flow Rate FiO2 11/14/17 15:31 36.7 77 20 110/67 (81) 99 Nasal Cannula 2.0 11/14/17 14:34 82 16 98 Nasal Cannula 3.0 11/14/17 08:00 98 Nasal Cannula 2.0 11/14/17 07:23 36.5 76 20 149/69 (95) 98 Nasal Cannula 2.0 11/14/17 07:18 75 16 93 Nasal Cannula 2.0 11/14/17 02:00 Nasal Cannula 2.0 11/14/17 00:00 36.6 75 20 137/86 (103) 100 Nasal Cannula 2.0 11/13/17 20:26 80 105/63 (77) 11/13/17 19:39 71 16 98 Nasal Cannula 2.0 Lab Results: Results Past 24 Hours Test 11/14/17 04:45 11/14/17 12:21 Range/Units White Blood Count 8.71 4.8-10.8 K/uL Red Blood Count 3.16 4.2-5.4 M/uL Hemoglobin 9.3 12.0-16.0 g/dL Hematocrit 29.3 37-47 % Mean Corpuscular Volume 92.7 80-100 fL Mean Corpuscular Hemoglobin 29.4 25-34 pg Mean Corpuscular Hemoglobin Concent 31.7 32-36 g/dl RDW Standard Deviation 56.1 36.4-46.3 fL RDW Coefficient of Variation 16.5 11.5-14.5 % Platelet Count 237 130-400 K/uL Mean Platelet Volume 9.1 7.4-10.4 fL Prothrombin Time 35.3 9.0-12.0 SECONDS Prothromb Time International Ratio 3.4 0.9-1.1 Activated Partial Thromboplast Time 36.2 21.0-31.0 SECONDS Partial Thromboplastin Ratio 1.4 Creatinine 1.19 0.60-1.20 mg/dl Est Creatinine Clear Calc Drug Dose 30.4 ml/min Estimated GFR () 48.5 Estimated GFR (Non- 41.9 Microbiology Results 11/14/17 Blood Culture, Received Pending 11/14/17 Blood Culture, Received Pending
[2017-11-14] MEDS ORDERED: FUROSEMIDE INJ 20 MG in SYRINGE 0 ML IV SCH (16:45)
[2017-11-14] MEDS: CEFEPIME IV 2,000 MG in SYRINGE 7.5 ML IV SCH (17:47)
[2017-11-14] MEDS: NYSTATIN SUSP 500,000 U/5 ML UDC PO SCH ×2 (17:48→20:51)
[2017-11-14] MEDS: LORAZEPAM 0.5 MG TAB PO SCH (20:51)
[2017-11-14] MEDS: DOCUSATE SODIUM/SENNA 50/8.6MG TAB PO SCH (20:51)
[2017-11-15] VITALS (7 sets, daily range): BP systolic 96–148; BP diastolic 55–73; PULSE 65–87; TEMP 36.3–36.4; O2SAT 98–100
[2017-11-15] MEDS: LEVALBUTEROL 0.63MG/3 ML NEB INH SCH ×4 (01:59→19:20)
[2017-11-15] MEDS: IPRATROPIUM BROMIDE NEB SOLN 0.02% 2.5 ML VIAL INH SCH ×4 (01:59→19:20)
[2017-11-15 05:17] LABS: CREATININE 1.12 mg/dl (0.60-1.20)
[2017-11-15] MEDS: OXYCODONE/ACETAMINOPHEN 5-325 TAB PO PRN ×3 (05:44→19:28)
[2017-11-15] MEDS: FAMOTIDINE 20 MG TAB PO SCH (07:54)
[2017-11-15] MEDS: PANTOprazole SOD 40 MG TAB PO SCH ×2 (07:54→19:39)
[2017-11-15] MEDS: CHECK FENTANYL PATCH PLACEMENT SCH ×2 (07:55→15:39)
[2017-11-15] MEDS ORDERED: FUROSEMIDE 40 MG TAB PO SCH (08:00)
[2017-11-15 08:05] LABS: HEMATOCRIT 29.7 % (37-47); HEMOGLOBIN 9.6 g/dL (12.0-16.0)
[2017-11-15 08:07] LABS: INR 1.9 (0.9-1.1)
[2017-11-15] MEDS: FERROUS SULFATE 325 MG TAB PO SCH ×2 (08:55→16:32)
[2017-11-15] MEDS: POTASSIUM CHLORIDE 10 MEQ TABCR PO SCH ×2 (08:56→19:39)
[2017-11-15] MEDS: LACTOBACILLUS ACIDOPHILUS (FLORANEX) TAB PO SCH ×3 (08:56→16:32)
[2017-11-15] MEDS: MAGNESIUM OXIDE 400 MG TAB PO SCH (08:57)
[2017-11-15] MEDS: MULTIVITAMIN TAB PO SCH (08:58)
[2017-11-15] MEDS: GABAPENTIN 100 MG CAP PO SCH (08:58)
[2017-11-15] MEDS: PAROXETINE 20 MG TAB PO SCH (08:59)
[2017-11-15] MEDS: METOPROLOL SUCC 25MG EXT REL TAB PO SCH ×2 (08:59→19:39)
[2017-11-15] MEDS: ASCORBIC ACID 500 MG TAB PO SCH (09:00)
[2017-11-15] MEDS: NYSTATIN SUSP 500,000 U/5 ML UDC PO SCH ×4 (09:01→19:39)
[2017-11-15] MEDS ORDERED: VANCOMYCIN TROUGH ONE (11:30)
[2017-11-15] MEDS ORDERED: D5W AND NSS 1,000 ML IV SCH (12:30)
[2017-11-15] MEDS: VANCOMYCIN IV 750 MG in SODIUM CHLORIDE 0.9% 250ML 250 ML IV SCH (12:49)
--- NOTE | 2017-11-15 13:39 | Pharmacy Progress Note ---
Pharmacy Abx Dose Short Note Date of Service Nov 15, 2017. Assessment & Plan Assessment 82 year old female receiving vancomycin/cefepime for treatment of HCAP/SSTI. Renal function continues to improve. Plan Vancomycin * Trough level of 22.1 mcg/mL is supratherapeutic. * Change to 750 mg IV every 28 hours. Will start this dose slightly later to account for elevated trough * Goal trough level : 15 to 20 mcg/mL * Trough or random level ordered for: repeat as clinically indicated Cefepime * Increase to 2g q12h Pharmacy will continue to follow and will adjust dose/frequency as necessary. Thank you.
--- NOTE | 2017-11-15 15:38 | Progress Note ---
Internal Med Progress Note Date of Service: Nov 15, 2017. Provider Documentation: SUBJECTIVE: resting comfortably sob improved earlier had epigastric pain but resolved now appetite not great had 4 episodes of diarrhea last night no cough no nausea complains of dry mouth and weakness OBJECTIVE: Vital Signs-as noted below Exam: General-alert and oriented. Not in distress oral mucosa dry ENT-normal hearing. Neck-No neck masses Lungs-CTA b/l no wheezing or crackles Heart-S1 and S2 heard regular rate and rhythm no murmurs Abdomen-soft Bowels sounds present non tender no distension Extremities- no erythema trace edema Neuro-alert and oriented moves extremities Lab data as noted below. 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 SOB 2/2 subacute bilateral PEs, possible HCAP PNA, possible azvwc-no-xaojqes diastolic CHF, acute on chronic resp failure.: PEs diagnosed 10/26. S/p IVC filter placement. On Coumadin INR 5.0 today. will hold coumadin HCAP -possible gm negative pneumonia.Leukocytosis of 19 (was discharged with a wbc count of 9) CXR with patchy bilateral alveolar opacities are suspicious for superimposed PNA Recently on last admission was on vanco, imipenem and doxy on previous admission started on Vanco and cefepime#6. repeat cxr improving ID on board and recommends atleast 5 days of iv abx patient has a picc line placed as cannot get peripheral lines improving repeat cxr in one month stable Bacteremia one bottle positive for gm positive cooci contaminant? will f/u final cx. continue abx until final cx Acute on chronic diastolic chf CXR also with cardiomegaly with mild pulmonary vascular congestion and trace bilateral pleural effusions Recent October 2017 echo with preserved EF ~70% received a dose of iv Lasix will monitor stable received a dose of iv Lasix 11/13/17 and restarted home Lasix but held again BP borderline will monitor while on gentle fluids Recent UTI: Klebsiella infection, treated with keflex no growth so far Diarrhea: will monitor check for c diff BP borderline from diarrhea and Lasix? on gentle fluids Lasix held will monitor Elevated troponin: mostly demand ischemia from above asymptomatic MYRTLE on chronic CKD III: Poor PO intake x 2 days Presented with Cr 1.79 (baseline low-mid 1s) received a dos of iv Lasix cr 1.1 today will f/u labs Sacral pressure ulcer: Treated with optifoam Wound care nurse consulted Cx growing enterococcus- on iv vanco Repositioning q2H CAD: S/p stents in 2012 Stable home meds Aortic stenosis: S/p TAVR with bioprosthetic valve in 2016 Anemia of chronic disease: Chronic anemia from chronic gi bleeding Hgb 8.1 11/11/17 on iron supplements s/p transfused one unit yesterday 11/11/17 hb 9.6 today Polyarthritis: Cont chronic prednisone, fentanyl patch, gabapentin, percocet PRN prednisone dose increased DVT Ppx: Coumadin Code status: FULL code but NO MECH VENT per admission. PCP: Henny. Dispo: pt/ot social service for d/c planning [facility] on Thursday Vital Signs: Date Time Temp Pulse Resp B/P (MAP) Pulse Ox O2 Delivery O2 Flow Rate FiO2 11/16/17 07:25 71 16 97 Nasal Cannula 2.0 11/16/17 07:13 36.5 65 16 133/72 (92) 99 2.0 11/16/17 00:32 36.4 73 20 136/71 (92) 98 Nasal Cannula 2.0 11/16/17 00:00 Nasal Cannula 2.0 11/15/17 19:32 36.3 87 24 102/59 (73) 98 Nasal Cannula 2.0 11/15/17 19:30 Nasal Cannula 2.0 11/15/17 19:21 81 16 98 Nasal Cannula 2.0 11/15/17 16:00 Nasal Cannula 2.0 11/15/17 14:49 36.3 74 18 96/55 (69) 100 Nasal Cannula 2.0 11/15/17 14:22 74 16 100 Nasal Cannula 2.0 11/15/17 12:00 76 121/72 (88) Lab Results: Results Past 24 Hours Test 11/15/17 11:23 11/16/17 05:12 Range/Units Vancomycin Level Trough 22.1 SEE COMMENT mcg/ml White Blood Count 8.10 4.8-10.8 K/uL Red Blood Count 3.01 4.2-5.4 M/uL Hemoglobin 8.8 12.0-16.0 g/dL Hematocrit 27.7 37-47 % Mean Corpuscular Volume 92.0 80-100 fL Mean Corpuscular Hemoglobin 29.2 25-34 pg Mean Corpuscular Hemoglobin Concent 31.8 32-36 g/dl RDW Standard Deviation 55.0 36.4-46.3 fL RDW Coefficient of Variation 16.4 11.5-14.5 % Platelet Count 212 130-400 K/uL Mean Platelet Volume 8.7 7.4-10.4 fL Prothrombin Time 18.6 9.0-12.0 SECONDS Prothromb Time International Ratio 1.8 0.9-1.1 Sodium Level 139 136-145 mmol/L Potassium Level 3.8 3.5-5.1 mmol/L Chloride Level 109 98-107 mmol/L Carbon Dioxide Level 25 21-32 mmol/L Anion Gap 5.0 3-11 mmol/L Blood Urea Nitrogen 29 7-18 mg/dl Creatinine 1.26 0.60-1.20 mg/dl Est Creatinine Clear Calc Drug Dose 28.7 ml/min Estimated GFR () 45.3 Estimated GFR (Non- 39.1 BUN/Creatinine Ratio 22.9 10-20 Random Glucose 83 70-99 mg/dl Calcium Level 9.2 8.5-10.1 mg/dl
[2017-11-15] MEDS ORDERED: WARFARIN SOD 1 MG TAB PO SCH (16:00)
[2017-11-15] MEDS: CEFEPIME IV 2,000 MG in SYRINGE 7.5 ML IV SCH (18:31)
[2017-11-15] MEDS ORDERED: [UNRECOGNIZED DRUG - REMARK] ONE (20:00)
[2017-11-15] MEDS: LORAZEPAM 0.5 MG TAB PO SCH (20:53)
[2017-11-15] MEDS: DOCUSATE SODIUM/SENNA 50/8.6MG TAB PO SCH (20:53)
[2017-11-16] VITALS (15 sets, daily range): BP systolic 92–136; BP diastolic 52–82; PULSE 65–91; TEMP 36.3–36.6; O2SAT 95–100
[2017-11-16] MEDS: IPRATROPIUM BROMIDE NEB SOLN 0.02% 2.5 ML VIAL INH SCH ×4 (02:00→18:57)
[2017-11-16] MEDS: LEVALBUTEROL 0.63MG/3 ML NEB INH SCH ×4 (02:00→18:57)
[2017-11-16] MEDS: OXYCODONE/ACETAMINOPHEN 5-325 TAB PO PRN ×4 (04:03→21:04)
[2017-11-16 05:21] LABS: HEMATOCRIT 27.7 % (37-47); HEMOGLOBIN 8.8 g/dL (12.0-16.0); MEAN CORPUSCULAR HEMOGLOBIN 29.2 pg (25-34); MEAN PLATELET VOLUME 8.7 fL (7.4-10.4); PLATELET COUNT 212 K/uL (130-400); RED CELL DISTRIBUTION WIDTH CV 16.4 % (11.5-14.5)
[2017-11-16 05:27] LABS: INR 1.8 (0.9-1.1)
[2017-11-16 05:42] LABS: MEAN CORPUSCULAR HGB CONC 31.8 g/dl (32-36)
[2017-11-16 05:51] LABS: CALCIUM 9.2 mg/dl (8.5-10.1); CREATININE 1.26 mg/dl (0.60-1.20); POTASSIUM 3.8 mmol/L (3.5-5.1)
[2017-11-16] MEDS: CEFEPIME IV 2,000 MG in SYRINGE 7.5 ML IV SCH (06:25)
[2017-11-16] MEDS ORDERED: [UNRECOGNIZED DRUG - REMARK] ONE (07:00)
[2017-11-16] MEDS: FERROUS SULFATE 325 MG TAB PO SCH ×2 (08:56→17:10)
[2017-11-16] MEDS: FAMOTIDINE 20 MG TAB PO SCH (08:56)
[2017-11-16] MEDS: CHECK FENTANYL PATCH PLACEMENT SCH ×4 (08:56→23:35)
[2017-11-16] MEDS: GABAPENTIN 100 MG CAP PO SCH (08:56)
[2017-11-16] MEDS: PAROXETINE 20 MG TAB PO SCH (08:57)
[2017-11-16] MEDS: MAGNESIUM OXIDE 400 MG TAB PO SCH (08:57)
[2017-11-16] MEDS: MULTIVITAMIN TAB PO SCH (08:58)
[2017-11-16] MEDS: ASCORBIC ACID 500 MG TAB PO SCH (08:58)
[2017-11-16] MEDS: METOPROLOL SUCC 25MG EXT REL TAB PO SCH ×2 (08:58→20:22)
[2017-11-16] MEDS: PANTOprazole SOD 40 MG TAB PO SCH ×2 (08:58→20:23)
[2017-11-16] MEDS: LACTOBACILLUS ACIDOPHILUS (FLORANEX) TAB PO SCH ×3 (08:59→17:08)
[2017-11-16] MEDS: NYSTATIN SUSP 500,000 U/5 ML UDC PO SCH ×5 (08:59→20:23)
[2017-11-16] MEDS: POTASSIUM CHLORIDE 10 MEQ TABCR PO SCH ×2 (08:59→20:22)
[2017-11-16] MEDS: FENTANYL PATCH REMOVE & WASTE SCH (09:29)
[2017-11-16] MEDS: FENTANYL 12 MCG/HR TDSY TD SCH (09:30)
--- NOTE | 2017-11-16 10:07 | Clinical Documentation Query ---
QUERY 1 OF [address] DE LUNA, In your clinical opinion is this patient being managed for: ( x ) possible gram negative pneumonia ( ) Not Agree ( ) Other explanation of clinical findings (Please Explain) ( ) Unable to determine (Please Define) ( ) Need to Discuss The medical record reflects the following clinical findings, treatment, and risk factors. Clinical Indicators: 82 yo female presenting with constant dyspnea. Diagnosed with possible HCAP pneumonia Treatment: IV vancomcyin, IV cefepime, nebs, O2 support Risk Factors: age, recent hospital stay, CHF, QUERY 2 OF 2 In your clinical opinion is this patient being managed for: ( x ) Chronic hypoxic respiratory failure ( ) Not Agree ( ) Other explanation of clinical findings (Please Explain) ( ) Unable to determine (Please Define) ( ) Need to Discuss The medical record reflects the following clinical findings, treatment, and risk factors. Clinical Indicators: Review of medication list shows pt uses chronic home O2 support. Treatment: chronic management includes O2 support, proventil nebs, breo, prednisone Risk Factors: age, chronic diastolic CHF, recurrent PE's Please clarify and document your clinical opinion in the progress notes and discharge summary. Terms such as "probable", "suspected", "likely", "questionable", "possible", or "still to be ruled out" are acceptable. IF IN AGREEMENT, YOU MUST DOCUMENT ABOVE DIAGNOSTIC STATEMENT IN DAILY PROGRESS NOTES AND DISCHARGE SUMMARY. This document is not part of the patient's record. Thank You, Letitia Aguero, LAURIE [phone]
[2017-11-16] MEDS ORDERED: ENOXAPARIN 30 MG/0.3 ML SYR SQ ONE (11:30)
[2017-11-16] MEDS ORDERED: ACETAMINOPHEN 500 MG TAB PO SCH (14:30)
[2017-11-16] MEDS ORDERED: WARFARIN SOD 1 MG TAB PO SCH (16:00)
[2017-11-16] MEDS ORDERED: FUROSEMIDE INJ 20 MG in SYRINGE 0 ML IV SCH (16:00)
[2017-11-16] MEDS: WARFARIN TAB 1 MG, WARFARIN TAB 0.5 MG PO SCH (17:10)
[2017-11-16] MEDS ORDERED: VANCOMYCIN IV 750 MG in SODIUM CHLORIDE 0.9% 250ML 250 ML IV SCH (18:00)
--- NOTE | 2017-11-16 18:57 | Progress Note ---
Internal Med Progress Note Date of Service: Nov 16, 2017. Provider Documentation: SUBJECTIVE: complains of lot of weakness do not feel like [facility] not moved bowels today afebrile has cough no chest pain OBJECTIVE: Vital Signs-as noted below Exam: General-alert and oriented. Not in distress oral mucosa dry ENT-normal hearing. Neck-No neck masses Lungs-CTA b/l no wheezing mild bibasilar crackles Heart-S1 and S2 heard regular rate and rhythm no murmurs Abdomen-soft Bowels sounds present non tender no distension Extremities- no erythema trace edema Neuro-alert and oriented moves extremities Lab data as noted below. 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 SOB 2/2 subacute bilateral PEs, possible HCAP PNA, possible fuafl-bp-lukbqpo diastolic CHF, acute on chronic resp failure.: PEs diagnosed 10/26. S/p IVC filter placement. On Coumadin INR 5.0 today. will hold coumadin HCAP -possible gm negative pneumonia.Leukocytosis of 19 (was discharged with a wbc count of 9) CXR with patchy bilateral alveolar opacities are suspicious for superimposed PNA Recently on last admission was on vanco, imipenem and doxy on previous admission started on Vanco and cefepime#6. repeat cxr improving ID on board and recommends atleast 5 days of iv abx patient has a picc line placed as cannot get peripheral lines improving abx stopped repeat cxr in one month stable Bacteremia one bottle positive for coag neg staph contaminant? repeat cx negative Acute on chronic diastolic chf CXR also with cardiomegaly with mild pulmonary vascular congestion and trace bilateral pleural effusions Recent October 2017 echo with preserved EF ~70% received a dose of iv Lasix in er received a dose of iv Lasix 11/13/17 and restarted home Lasix but held again BP borderline restart lasix in am Recent UTI: Klebsiella infection, treated with keflex no growth so far Diarrhea: will monitor check for c diff BP borderline from diarrhea and Lasix? on gentle fluids improved Elevated troponin: mostly demand ischemia from above asymptomatic MYRTLE on chronic CKD III: Poor PO intake x 2 days Presented with Cr 1.79 (baseline low-mid 1s) received a dos of iv Lasix cr 1.1 today will f/u labs Sacral pressure ulcer: Treated with optifoam Wound care nurse consulted Cx growing enterococcus- on iv vanco. now on amoxicillin Repositioning q2H CAD: S/p stents in 2011 Stable home meds Aortic stenosis: S/p TAVR with bioprosthetic valve in 2016 Anemia of chronic disease: Chronic anemia from chronic gi bleeding Hgb 8.1 11/11/17 on iron supplements s/p transfused one unit yesterday 11/11/17 hb 8.8 today. transfusing one more unit Polyarthritis: Cont chronic prednisone, fentanyl patch, gabapentin, percocet PRN prednisone dose increased DVT Ppx: Coumadin Code status: FULL code but NO MECH VENT per admission. PCP: Henny. Dispo: pt/ot social service for d[facility] Vital Signs: Date Time Temp Pulse Resp B/P (MAP) Pulse Ox O2 Delivery O2 Flow Rate FiO2 11/16/17 16:21 36.6 79 16 97/58 95 11/16/17 16:00 97 Nasal Cannula 2.0 11/16/17 15:52 36.4 82 18 92/52 98 2.0 11/16/17 15:36 36.4 88 18 96/56 97 2.0 11/16/17 15:34 36.3 85 20 117/67 (84) 100 Nasal Cannula 2.0 11/16/17 15:28 91 98 11/16/17 15:17 36.3 85 18 117/67 11/16/17 14:22 82 16 98 Nasal Cannula 2.0 11/16/17 09:00 97 Nasal Cannula 2.0 11/16/17 07:25 71 16 97 Nasal Cannula 2.0 11/16/17 07:13 36.5 65 16 133/72 (92) 99 2.0 11/16/17 00:32 36.4 73 20 136/71 (92) 98 Nasal Cannula 2.0 11/16/17 00:00 Nasal Cannula 2.0 11/15/17 19:32 36.3 87 24 102/59 (73) 98 Nasal Cannula 2.0 11/15/17 19:30 Nasal Cannula 2.0 11/15/17 19:21 81 16 98 Nasal Cannula 2.0 Lab Results: Results Past 24 Hours Test 11/16/17 05:12 Range/Units White Blood Count 8.10 4.8-10.8 K/uL Red Blood Count 3.01 4.2-5.4 M/uL Hemoglobin 8.8 12.0-16.0 g/dL Hematocrit 27.7 37-47 % Mean Corpuscular Volume 92.0 80-100 fL Mean Corpuscular Hemoglobin 29.2 25-34 pg Mean Corpuscular Hemoglobin Concent 31.8 32-36 g/dl RDW Standard Deviation 55.0 36.4-46.3 fL RDW Coefficient of Variation 16.4 11.5-14.5 % Platelet Count 212 130-400 K/uL Mean Platelet Volume 8.7 7.4-10.4 fL Prothrombin Time 18.6 9.0-12.0 SECONDS Prothromb Time International Ratio 1.8 0.9-1.1 Sodium Level 139 136-145 mmol/L Potassium Level 3.8 3.5-5.1 mmol/L Chloride Level 109 98-107 mmol/L Carbon Dioxide Level 25 21-32 mmol/L Anion Gap 5.0 3-11 mmol/L Blood Urea Nitrogen 29 7-18 mg/dl Creatinine 1.26 0.60-1.20 mg/dl Est Creatinine Clear Calc Drug Dose 28.7 ml/min Estimated GFR () 45.3 Estimated GFR (Non- 39.1 BUN/Creatinine Ratio 22.9 10-20 Random Glucose 83 70-99 mg/dl Calcium Level 9.2 8.5-10.1 mg/dl
--- NOTE | 2017-11-16 20:00 | DIAGNOSTIC IMAGING REPORT ---
CHEST ONE VIEW PORTABLE HISTORY: 82 years-old Female congestion acute cough and congestion with shortness of breath and pneumonia COMPARISON: Chest radiograph 11/13/2017 TECHNIQUE: Portable AP view of the chest FINDINGS: Left-sided PICC is unchanged. Cardiac silhouette is enlarged. The patient is rotated to the left. Atherosclerosis of the aorta with endograft of the ascending segment. Calcifications of the tracheobronchial tree. Trace left pleural effusion with chronic blunting of the right costophrenic angle. Chronic interstitial coarsening with persistent patchy nodular opacities. Mildly progressed opacities of the left lung base. Bones of the chest appear grossly intact. Degenerative changes of the shoulders and spine with sigmoidal scoliosis. IVC filter noted. Hiatal hernia. IMPRESSION: 1. Progressive left basilar opacities suggest atelectasis or pneumonia with trace left pleural effusion. Patchy nodular opacities are also again noted suggesting persistent pneumonia. 2. Cardiomegaly without overt pulmonary edema. 3. Chronic interstitial coarsening. 4. Hiatal hernia. The above report was generated using voice recognition software. It may contain grammatical, syntax or spelling errors. Electronically signed by: Joshua Feng M.D. 11/16/2017 7:59 PM Dictated Date/Time: 11/16/2017 7:56 PM
[2017-11-16] MEDS: AMOXICILLIN 500 MG CAP PO SCH (20:23)
[2017-11-16] MEDS: LORAZEPAM 0.5 MG TAB PO SCH (20:25)
[2017-11-16] MEDS: DOCUSATE SODIUM/SENNA 50/8.6MG TAB PO SCH (20:26)
[2017-11-17 05:58] LABS: EOS ABS # 0.08 K/uL (0-0.5); HEMATOCRIT 32.7 % (37-47); HEMOGLOBIN 10.7 g/dL (12.0-16.0); IG# 0.04 K/uL (0.00-0.02); LYMPH % 14.7 %; LYMPH ABS # 1.24 K/uL (1.2-3.4); MEAN CELL VOLUME 90.8 fL (80-100); MEAN CORPUSCULAR HEMOGLOBIN 29.7 pg (25-34); MEAN CORPUSCULAR HGB CONC 32.7 g/dl (32-36); MEAN PLATELET VOLUME 9.2 fL (7.4-10.4); MONO % 7.1 %; NEUT % 76.7 %; NEUT ABS # 6.46 K/uL (1.4-6.5); PLATELET COUNT 221 K/uL (130-400); RED CELL DISTRIBUTION WIDTH CV 16.1 % (11.5-14.5); RED CELL DISTRIBUTION WIDTH SD 53.7 fL (36.4-46.3); WHITE BLOOD COUNT 8.42 K/uL (4.8-10.8)
[2017-11-17 06:11] LABS: INR 1.9 (0.9-1.1)
[2017-11-17 06:27] LABS: CALCIUM 9.6 mg/dl (8.5-10.1); CREATININE 1.33 mg/dl (0.60-1.20); POTASSIUM 3.9 mmol/L (3.5-5.1)
[2017-11-17 07:11] VITALS: BP 159/89; PULSE 78; TEMP 36.8; O2SAT 96
[2017-11-17] MEDS: IPRATROPIUM BROMIDE NEB SOLN 0.02% 2.5 ML VIAL INH SCH ×2 (07:24→14:21)
[2017-11-17 07:25] VITALS: PULSE 65; O2SAT 96
[2017-11-17] MEDS: LEVALBUTEROL 0.63MG/3 ML NEB INH SCH ×2 (07:25→14:21)
[2017-11-17] MEDS ORDERED: FUROSEMIDE 40 MG TAB PO SCH (08:00)
[2017-11-17] MEDS: OXYCODONE/ACETAMINOPHEN 5-325 TAB PO PRN ×2 (09:01→15:25)
[2017-11-17] MEDS: FERROUS SULFATE 325 MG TAB PO SCH ×2 (09:02→15:26)
[2017-11-17] MEDS: METOPROLOL SUCC 25MG EXT REL TAB PO SCH (09:02)
[2017-11-17] MEDS: LACTOBACILLUS ACIDOPHILUS (FLORANEX) TAB PO SCH ×3 (09:02→15:25)
[2017-11-17] MEDS: CHECK FENTANYL PATCH PLACEMENT SCH ×2 (09:02→15:28)
[2017-11-17] MEDS: AMOXICILLIN 500 MG CAP PO SCH (09:03)
[2017-11-17] MEDS: FAMOTIDINE 20 MG TAB PO SCH (09:03)
[2017-11-17] MEDS: MULTIVITAMIN TAB PO SCH (09:03)
[2017-11-17] MEDS: PANTOprazole SOD 40 MG TAB PO SCH (09:03)
[2017-11-17] MEDS: MAGNESIUM OXIDE 400 MG TAB PO SCH (09:03)
[2017-11-17] MEDS: POTASSIUM CHLORIDE 10 MEQ TABCR PO SCH (09:04)
[2017-11-17] MEDS: ASCORBIC ACID 500 MG TAB PO SCH (09:04)
[2017-11-17] MEDS: GABAPENTIN 100 MG CAP PO SCH (09:04)
[2017-11-17] MEDS: PAROXETINE 20 MG TAB PO SCH (09:04)
[2017-11-17] MEDS: NYSTATIN SUSP 500,000 U/5 ML UDC PO SCH ×3 (09:05→15:29)
--- NOTE | 2017-11-17 11:43 | DIAGNOSTIC IMAGING REPORT ---
CHEST ONE VIEW PORTABLE CLINICAL HISTORY: infiltrates pneumonia COMPARISON STUDY: 11/16/2017 FINDINGS: Mild stable cardia megaly. Central catheter in the right atrium. Stent is again noted overlying the cardiac silhouette. Inferior vena caval filter is present. There are infiltrative change left base stable to slightly improved. Slight chronic parenchymal interstitial change bilaterally. IMPRESSION: Slight improvement of a small left basilar parenchymal infiltrate. Mild stable cardia megaly. The above report was generated using voice recognition software. It may contain grammatical, syntax or spelling errors. Electronically signed by: Albert Mccarthy M.D. 11/17/2017 11:42 AM Dictated Date/Time: 11/17/2017 11:40 AM
--- NOTE | 2017-11-17 12:37 | Progress Note ---
Internal Med Progress Note Date of Service: Nov 17, 2017. Provider Documentation: SUBJECTIVE: feeling better today sob improved gets some cough in night afebrile eating ok not moved bowels today but had diarrhea couple of days ago son in room ok to go to [facility] today OBJECTIVE: Vital Signs-as noted below Exam: General-alert and oriented. Not in distress oral mucosa dry ENT-hard of hearing. Neck-No neck masses Lungs-CTA b/l no wheezing no crackles Heart-S1 and S2 heard regular rate and rhythm no murmurs Abdomen-soft Bowels sounds present non tender no distension Extremities- no erythema trace edema Neuro-alert and oriented moves extremities Lab data as noted below. 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 SOB 2/2 subacute bilateral PEs, possible HCAP PNA, possible takno-mz-xvciikv diastolic CHF, acute on chronic resp failure.: PEs diagnosed 10/26. S/p IVC filter placement. On Coumadin INR 5.0 today. will hold coumadin HCAP -possible gm negative pneumonia.Leukocytosis of 19 (was discharged with a wbc count of 9) CXR with patchy bilateral alveolar opacities are suspicious for superimposed PNA Recently on last admission was on vanco, imipenem and doxy on previous admission started on Vanco and cefepime#6. repeat cxr improving ID on board and recommends atleast 5 days of iv abx patient has a picc line placed as cannot get peripheral lines improving abx stopped repeat cxr in one month stable currently d/c to [facility] today Bacteremia one bottle positive for coag neg staph contaminant mostly repeat cx negative Acute on chronic diastolic chf CXR also with cardiomegaly with mild pulmonary vascular congestion and trace bilateral pleural effusions Recent October 2017 echo with preserved EF ~70% received a dose of iv Lasix in er received a dose of iv Lasix 11/13/17 and restarted home Lasix but held again BP borderline restarted lasix stable Recent UTI: Klebsiella infection, treated with keflex no growth so far Diarrhea: will monitor check for c diff no diarrhea now BP borderline from diarrhea and Lasix? on gentle fluids improved Elevated troponin: mostly demand ischemia from above asymptomatic MYRTLE on chronic CKD III: Poor PO intake x 2 days Presented with Cr 1.79 (baseline low-mid 1s) received a dos of iv Lasix cr 1.3today will f/u labs Sacral pressure ulcer: Treated with optifoam Wound care nurse consulted Cx growing enterococcus- on iv vanco. now on amoxicillin will complete total 10 day course Repositioning q2H CAD: S/p stents in 2011 Stable home meds Aortic stenosis: S/p TAVR with bioprosthetic valve in 2016 Anemia of chronic disease: Chronic anemia from chronic gi bleeding Hgb 8.1 11/11/17 on iron supplements s/p transfused total 2units prbc during this hospitalization hb 10.7 today on discharge Polyarthritis: Cont chronic prednisone, fentanyl patch, gabapentin, percocet PRN prednisone dose increased will taper back to home dose 5mg daily DVT Ppx: Coumadin Code status: FULL code but NO MECH VENT per admission. PCP: Henny. Dispo: Plan for [facility] today Vital Signs: Date Time Temp Pulse Resp B/P (MAP) Pulse Ox O2 Delivery O2 Flow Rate FiO2 11/17/17 08:20 Nasal Cannula 2.0 11/17/17 07:25 65 16 96 Nasal Cannula 2.0 11/17/17 07:11 36.8 78 24 159/89 (112) 96 Nasal Cannula 2.0 11/17/17 00:05 Nasal Cannula 2.0 11/16/17 23:35 36.4 86 18 128/82 (97) 97 Room Air 11/16/17 20:23 78 101/61 (74) 11/16/17 20:00 Nasal Cannula 2.0 11/16/17 19:00 80 16 97 Room Air 11/16/17 16:21 36.6 79 16 97/58 95 11/16/17 16:00 97 Nasal Cannula 2.0 11/16/17 15:52 36.4 82 18 92/52 98 2.0 11/16/17 15:36 36.4 88 18 96/56 97 2.0 11/16/17 15:34 36.3 85 20 117/67 (84) 100 Nasal Cannula 2.0 11/16/17 15:28 91 98 11/16/17 15:17 36.3 85 18 117/67 11/16/17 14:22 82 16 98 Nasal Cannula 2.0 Lab Results: Results Past 24 Hours Test 11/17/17 05:45 Range/Units White Blood Count 8.42 4.8-10.8 K/uL Red Blood Count 3.60 4.2-5.4 M/uL Hemoglobin 10.7 12.0-16.0 g/dL Hematocrit 32.7 37-47 % Mean Corpuscular Volume 90.8 80-100 fL Mean Corpuscular Hemoglobin 29.7 25-34 pg Mean Corpuscular Hemoglobin Concent 32.7 32-36 g/dl Platelet Count 221 130-400 K/uL Mean Platelet Volume 9.2 7.4-10.4 fL Neutrophils (%) (Auto) 76.7 % Lymphocytes (%) (Auto) 14.7 % Monocytes (%) (Auto) 7.1 % Eosinophils (%) (Auto) 1.0 % Basophils (%) (Auto) 0.0 % Neutrophils # (Auto) 6.46 1.4-6.5 K/uL Lymphocytes # (Auto) 1.24 1.2-3.4 K/uL Monocytes # (Auto) 0.60 0.11-0.59 K/uL Eosinophils # (Auto) 0.08 0-0.5 K/uL Basophils # (Auto) 0.00 0-0.2 K/uL RDW Standard Deviation 53.7 36.4-46.3 fL RDW Coefficient of Variation 16.1 11.5-14.5 % Immature Granulocyte % (Auto) 0.5 % Immature Granulocyte # (Auto) 0.04 0.00-0.02 K/uL Prothrombin Time 19.4 9.0-12.0 SECONDS Prothromb Time International Ratio 1.9 0.9-1.1 Sodium Level 137 136-145 mmol/L Potassium Level 3.9 3.5-5.1 mmol/L Chloride Level 107 98-107 mmol/L Carbon Dioxide Level 26 21-32 mmol/L Anion Gap 4.0 3-11 mmol/L Blood Urea Nitrogen 28 7-18 mg/dl Creatinine 1.33 0.60-1.20 mg/dl Est Creatinine Clear Calc Drug Dose 27.2 ml/min Estimated GFR () 42.4 Estimated GFR (Non- 36.6 BUN/Creatinine Ratio 21.1 10-20 Random Glucose 89 70-99 mg/dl Calcium Level 9.6 8.5-10.1 mg/dl Magnesium Level 2.0 1.8-2.4 mg/dl
[2017-11-17] MEDS ORDERED: OXYC-57 PO (12:40)
[2017-11-17] MEDS ORDERED: NYSS5 PO (12:40)
[2017-11-17] MEDS ORDERED: AMX500 PO (12:40)
[2017-11-17] MEDS ORDERED: LORA0.5T12 PO (12:47)
[2017-11-17] MEDS ORDERED: DRGTP12 TD (12:47)
[2017-11-17] MEDS ORDERED: CMD05 PO (12:47)
[2017-11-17] MEDS ORDERED: PRED-301 PO (12:47)
--- NOTE | 2017-11-17 12:52 | Discharge Instructions ---
Discharge Instructions Date of Service Nov 17, 2017. Admission Reason for Admission: Pna (Pneumonia) Sob (Shortness Of Breath) Discharge Discharge Diagnosis / Problem: pneumonia, sob,anemia Discharge Goals Goal(s): Decrease discomfort, Improve function Activity Recommendations Activity Level: Assistance Required Therapies: Physical Therapy, Occupational Therapy . Additional Information Patient informed of condition: Yes Advance Directives: Yes DNR: No (LEVEL 3) Level of Care: Acute Rehab Communicable Disease: No Prognosis: Stable Oxygen at (LPM): 2LTS VIA NASAL CANULA Reardon Catheter: Yes (REARDON CARE) Instructions / Follow-Up Instructions / Follow-Up FOLLOWUP WITH FAMILY DOCTOR ONE WEEK ON DISCHARGE. FOLLOWUP WITH COUMADIN CLINIC FOR COUMADIN DOSING. LAB: BMP AND CBC IN ONE WEEK AND FOLLOW RESULTS WITH FAMILY DOCTOR. LAB: PT/INR DAILY WHILE AT REHAB AND TO ADJUST COUMADIN DOING REPEAT CHEST XRAY IN 4-6 WEEKS FOR RESOLUTION OF PNEUMONIA Current Hospital Diet Patient's current hospital diet: AHA Diet (Heart Healthy) Discharge Diet Recommended Diet: AHA Diet (Heart Healthy) Diet Texture: Dental Soft (bite-sized) (SLIPPERY) Pending Studies Studies pending at discharge: no Physician Orders On Transfer Special Precautions: FALL AND ASPIRATION PRECAUTIONS Vital Signs: EVERY 8HRS Additional Orders: LAB: BMP AND CBC IN ONE WEEK AND FOLLOW RESULTS WITH FAMILY DOCTOR. LAB: PT/INR DAILY WHILE AT REHAB AND TO ADJUST COUMADIN DOING Medical Emergencies . Who to Call and When: Medical Emergencies: If at any time you feel your situation is an emergency, please call 911 immediately. . Non-Emergent Contact Non-Emergency issues call your: Primary Care Provider . . "Provider Documentation" section prepared by Joshua Engel. . Core Measure Problem Core Measures: None
--- NOTE | 2017-11-17 12:55 | Discharge Summary ---
Discharge Summary Date of Service Nov 17, 2017. Discharge Summary Admission Date: Nov 13, 2017 at 18:40 Discharge Date: Nov 17, 2017 Discharge Disposition: Rehab Principal Diagnosis: SOB HEALTH CARE PNEUMONIA ANEMIA Secondary Diagnoses/Problems: 1) Anemia Status: Chronic (2) Angiectasia Permanent Comment: on colonoscopy 05/2013 Status: Chronic (3) Aortic stenosis Permanent Comment: moderately severe by echo December 2013 Status: Chronic (4) Basal cell carcinoma Permanent Comment: s/p MOHS surgery Status: Resolved (5) Benign hypertension Status: Chronic (6) CAD (coronary artery disease) Permanent Comment: s/p RCA stent 2011 Status: Chronic (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 Status: Chronic (8) CKD (chronic kidney disease) stage 3, GFR 30-59 ml/min Status: Chronic (9) Depression Status: Chronic (10) Diverticulosis Colon (W/O Ment Of Hemorrhage) Status: Chronic (11) Dyslipidemia Status: Chronic (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, 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 Status: Chronic (13) Falls Status: Chronic (14) Gastroparesis Status: Chronic (15) GERD (gastroesophageal reflux disease) Status: Chronic (16) Hiatal hernia Status: Chronic (17) History of acute minda lesion Permanent Comment: 06/2013 Status: Chronic (18) History of endometrial cancer Permanent Comment: s/p radiation and total hysterectomy Status: Chronic (19) History of GI bleed Status: Chronic (20) History of pulmonary embolism Permanent Comment: x 2 Status: Chronic (21) IBS (irritable bowel syndrome) Status: Chronic (22) Obstructive lung disease Status: Chronic (23) Osteoporosis Status: Chronic (24) Polyarthritis Permanent Comment: on chronic prednisone Status: Chronic (25) Recurrent UTI Status: Chronic (26) Temporal arteritis Status: Chronic Procedures: CXR: 1. Cardiomegaly with mild pulmonary vascular congestion and trace bilateral pleural effusions. 2. Patchy bilateral alveolar opacities are suspicious for superimposed pneumonia. 3. Interval removal of the left-sided PICC. CXR 11/17/17: Slight improvement of a small left basilar parenchymal infiltrate. Mild stable cardia megaly. Consultations: ID Medication Reconciliation New Medications: Warfarin Sod (Coumadin) 0.5 Mg Tab 1.5 MG PO DAILY for 30 Days, 1 Refill Amoxicillin (Amoxicillin) 500 Mg Cap 500 MG PO BID for 4 Days, CAP Fentanyl (Fentanyl) 12 Mcg Tdsy 12 MCG TD Q72H, #3 Nystatin (Nystatin) 5 Ml Susp 5 ML PO QID for 10 Days Changed Medications: Prednisone (Prednisone) 5 Mg Tab 15 MG PO UD, #30 TAB (Changed from: 5 MG; DAILY) PREDNISONE 15MG PO DAILY X 3 DAYS THEN PREDNSIONE 10MG PO DAILY X 3 DAYS THEN PREDNSIONE 5MG PO DAILY HOME DOSE Continued Medications: Acetaminophen (Acetaminophen) 325 Mg Tab 650 MG PO PRN for Pain Albuterol Sulf (Proventil 0.083% 2.5MG/3ML) 2.5 Mg/3 Ml Nebu 2.5 MG INH QID PRN for SOB/Wheezing, EA Ascorbic Acid (Ascorbic Acid) 250 Mg Tab 250 MG PO DAILY Bisacodyl (Dulcolax) 10 Mg Sup 1 SUPP FL DAILY PRN for Constipation, SUP Docusate Sodium (Colace) 100 Mg Cap 1 CAP PO BID PRN for Constipation for 15 Days, #30 CAP Famotidine (Pepcid) 20 Mg Tab 20 MG PO DAILY Ferrous Sulfate (Ferrous Sulfate) 325 Mg Tab 325 MG PO BID Fluticasone Furoate-Vilanterol (Breo Ellipta) 1 Inh Inh 1 PUFF INH DAILY Furosemide (Lasix) 40 Mg Tab 40 MG PO DAILY, TAB Take 40mg daily. Take extra 1/2 tab for fluid accumulation or weight gain. Gabapentin (Neurontin) 100 Mg Cap 100 MG PO DAILY Home O2 Therapy (Oxygen) Gas 3 LITERS NA UD 2 liters HS and PRN Lactobacillus Acidophilus (Floranex) 1 Tab Tab 1 TAB PO TIDM, #90 TAB Lorazepam (Lorazepam) 0.5 Mg Tab 0.5 MG PO HS PRN for Insomnia for 7 Days, #7 TAB (This prescription has been renewed) Magnesium Hydroxide (Milk Of Magnesia) 30 Ml Susp 30 ML PO DAILY PRN for Constipation Magnesium Oxide (Mag-Ox) 400 Mg Tab 400 MG PO DAILY, TAB Metoprolol Succinate (Metoprolol Succinate ER) 25 Mg Tabcr 12.5 MG PO BID Multiple Vitamin (Multivitamin) 1 Tab Tab 0.5 TABLET PO DAILY for 30 Days take with supper Ondansetron Hcl (Zofran) 4 Mg Tab 4 MG PO Q6 PRN for Nausea, TAB Oxycodone/Acetaminophen 5MG/325MG (Percocet 5MG/325MG) Tab 1 TABLET PO Q8H PRN for Pain for 3 Days, #9 TAB (This prescription has been renewed) Pantoprazole (Protonix) 40 Mg Tab 40 MG PO BID, #60 TAB Paroxetine (Paroxetine HCl) 40 Mg Tab 40 MG PO DAILY Polyethylene (Miralax) 17 Gm Pow 17 GM PO DAILY PRN for Constipation, #1 BTL Potassium Chloride (Potassium Chloride Er) 10 Meq Cap 10 MEQ PO BID for 90 Days, #180 CAP 1 Refill Senna (Senokot) 8.6 Mg Tab 1 TAB PO DAILY PRN for Constipation, TAB Sodium Phosphate/Biphosphate (Fleet Enema) Yadira 1 EA FL DAILY PRN for Constipation Discontinued Medications: Warfarin Sod (Coumadin) 2 Mg Tab 2 MG PO DAILY@16 for 30 Days, #30 TAB Admission Information HPI (per Admitting provider): This is an 82yo F with a PMH of recurrent PE (on coumadin), CAD (s/p stent), diastolic CHF, aortic stenosis (s/p TAVR with bioprosthetic valve in 2015), HTN , h/o c diff and other problems listed below who presents with worsening SOB x 2 days. Patient was recently hospitalized from October 02- November 06 for bilateral pneumonia (treated with vanco imipenem and doxy). Course was complicated by acute bilateral PEs and an IVC filter was placed by Dr. Phan on 11/02. Patient was bridged to coumadin and discharged to [facility] on 2L NC O2. Patient states that she felt fine for the first 2 days after discharge but began to feel SOB beginning yesterday. Also endorses increased fatigue. Oxygen was increased from 2L-4L, and SOB improved, per patient. Denies any fever, chills, lightheadedness, visual changes, cough, sore throat, chest pain, orthopnea, PND , abdominal pain, nausea, vomiting, dysuria, constipation or LE swelling. Endorses a few episodes of diarrhea beginning yesterday. Also states that she has a sore on her backside that has been increasingly painful. Recently completed a course of Keflex for a UTI that was diagnosed during previous admission. In the ED, was found to have a leukocytosis of 19 (was discharged with a wbc count of 9). Hgb is slightly improved from baseline at 11. INR is therapeutic at 2.3. Cr is slightly elevated at 1.79 (Cr baseline low-mid 1s). Physical Exam (per Admitting): General Appearance: no apparent distress, + pertinent finding (Chronically ill-appearing) Head: normocephalic, atraumatic Eyes: normal inspection, PERRL, sclerae normal ENT: normal ENT inspection, hearing grossly normal, pharynx normal (Dry mucous membranes) Neck: supple, thyroid normal, trachea midline Respiratory/Chest: chest non-tender, no respiratory distress, no accessory muscle use, + decreased breath sounds, + crackles (Bibasilar), + pertinent finding (Saturating well on 2L NC) Cardiovascular: regular rate, rhythm, no murmur, normal peripheral pulses Abdomen/GI: non tender, soft, no organomegaly Extremities/Musculoskelatal: normal inspection, no calf tenderness, no pedal edema Neurologic/Psych: no motor/sensory deficits, alert, normal mood/affect, oriented x 3 Skin: normal color, warm/dry, + pertinent finding (Sacral pressure ulcer) Hospital Course This is an 82yo F with a PMH of recurrent PE (on Coumadin), CAD (s/p stent), diastolic CHF, aortic stenosis (s/p TAVR with bioprosthetic valve in 2016), HTN , h/o c diff and other problems listed below who presents with worsening SOB x 2 days. SOB 2/2 subacute bilateral PEs, possible HCAP PNA, possible [id number] diastolic CHF, acute on chronic resp failure.: PEs diagnosed 10/26. S/p IVC filter placement. On Coumadin INR 5.0 today. will hold coumadin HCAP -possible gm negative pneumonia.Leukocytosis of 19 (was discharged with a wbc count of 9) CXR with patchy bilateral alveolar opacities are suspicious for superimposed PNA Recently on last admission was on vanco, imipenem and doxy on previous admission started on Vanco and cefepime#6. repeat cxr improving ID on board and recommends atleast 5 days of iv abx patient has a picc line placed as cannot get peripheral lines improving abx stopped repeat cxr in one month stable currently d/c to [facility] today Bacteremia one bottle positive for coag neg staph contaminant mostly repeat cx negative Acute on chronic diastolic chf CXR also with cardiomegaly with mild pulmonary vascular congestion and trace bilateral pleural effusions Recent October 2017 echo with preserved EF ~70% received a dose of iv Lasix in er received a dose of iv Lasix 11/13/17 and restarted home Lasix but held again BP borderline restarted lasix stable Recent UTI: Klebsiella infection, treated with keflex no growth so far Diarrhea: will monitor check for c diff no diarrhea now BP borderline from diarrhea and Lasix? on gentle fluids improved Elevated troponin: mostly demand ischemia from above asymptomatic MYRTLE on chronic CKD III: Poor PO intake x 2 days Presented with Cr 1.79 (baseline low-mid 1s) received a dos of iv Lasix cr 1.3today will f/u labs Sacral pressure ulcer: Treated with optifoam Wound care nurse consulted Cx growing enterococcus- on iv vanco. now on amoxicillin will complete total 10 day course Repositioning q2H CAD: S/p stents in 2011 Stable home meds Aortic stenosis: S/p TAVR with bioprosthetic valve in 2015 Anemia of chronic disease: Chronic anemia from chronic gi bleeding Hgb 8.1 11/11/17 on iron supplements s/p transfused total 2units prbc during this hospitalization hb 10.7 today on discharge Polyarthritis: Cont chronic prednisone, fentanyl patch, gabapentin, percocet PRN prednisone dose increased will taper back to home dose 5mg daily DVT Ppx: Coumadin Code status: FULL code but NO MECH VENT per admission. PCP: Henny. Dispo: Plan for [facility] today Total time spent on discharge = 40 MINUTES This includes examination of the patient, discharge planning, medication reconciliation, and communication with other providers. Discharge Instructions Discharge Instructions Date of Service Nov 17, 2017. Admission Reason for Admission: Pna (Pneumonia) Sob (Shortness Of Breath) Discharge Discharge Diagnosis / Problem: pneumonia, sob,anemia Discharge Goals Goal(s): Decrease discomfort, Improve function Activity Recommendations Activity Level: Assistance Required Therapies: Physical Therapy, Occupational Therapy . Additional Information Patient informed of condition: Yes Advance Directives: Yes DNR: No (LEVEL 3) Level of Care: Acute Rehab Communicable Disease: No Prognosis: Stable Oxygen at (LPM): 2LTS VIA NASAL CANULA Reardon Catheter: Yes ([facility]) Instructions / Follow-Up Instructions / Follow-Up FOLLOWUP WITH FAMILY DOCTOR ONE WEEK ON DISCHARGE. FOLLOWUP WITH COUMADIN CLINIC FOR COUMADIN DOSING. LAB: BMP AND CBC IN ONE WEEK AND FOLLOW RESULTS WITH FAMILY DOCTOR. LAB: PT/INR DAILY WHILE AT REHAB AND TO ADJUST COUMADIN DOING REPEAT CHEST XRAY IN 4-6 WEEKS FOR RESOLUTION OF PNEUMONIA Current Hospital Diet Patient's current hospital diet: AHA Diet (Heart Healthy) Discharge Diet Recommended Diet: AHA Diet (Heart Healthy) Diet Texture: Dental Soft (bite-sized) (SLIPPERY) Pending Studies Studies pending at discharge: no Physician Orders On Transfer Special Precautions: FALL AND ASPIRATION PRECAUTIONS Vital Signs: EVERY 8HRS Additional Orders: LAB: BMP AND CBC IN ONE WEEK AND FOLLOW RESULTS WITH FAMILY DOCTOR. LAB: PT/INR DAILY WHILE AT REHAB AND TO ADJUST COUMADIN DOING Medical Emergencies . Who to Call and When: Medical Emergencies: If at any time you feel your situation is an emergency, please call 911 immediately. . Non-Emergent Contact Non-Emergency issues call your: Primary Care Provider . .
[2017-11-17] MEDS ORDERED: ENOXAPARIN 30 MG/0.3 ML SYR SQ ONE (13:15)
[2017-11-17 14:22] VITALS: PULSE 79; O2SAT 97
[2017-11-17] MEDS: WARFARIN TAB 1 MG, WARFARIN TAB 0.5 MG PO SCH (15:28)
[2017-11-17 15:54] VITALS: BP 115/70; PULSE 85; TEMP 36.4; O2SAT 97
[2017-11-17 16:00] VITALS: O2SAT 97
== END 2017-11-17 18:25 | DRG 177 ==
LOC: EDBD 07:58 → C.EDA 07:59 → C.2T 12:29 → UNDOADMOB 12:29 → ENRESERV 12:35 → C.4E 11-11 10:53 → ENRESERV 11-11 11:01 → OBSVTOIN 11-13 18:40
PROVIDERS: ADMIT Hospitalist; ATTEND Internal Medicine
DX: J15.6 Pneumonia due to other Gram-negative bacteria (principal); I50.33 Acute on chronic diastolic (congestive) heart failure; I26.99 Other pulmonary embolism without acute cor pulmonale; J96.21 Acute and chronic respiratory failure with hypoxia; N17.9 Acute kidney failure, unspecified; I24.8 Other forms of acute ischemic heart disease; I13.0 Hypertensive heart and chronic kidney disease with heart failure and stage 1 through stage 4 chronic kidney disease, or unspecified chronic kidney disease; I25.10 Atherosclerotic heart disease of native coronary artery without angina pectoris; R19.7 Diarrhea, unspecified; N18.3 Chronic kidney disease, stage 3 (moderate); L89.159 Pressure ulcer of sacral region, unspecified stage; D63.8 Anemia in other chronic diseases classified elsewhere; M13.0 Polyarthritis, unspecified; Z86.711 Personal history of pulmonary embolism; Z95.5 Presence of coronary angioplasty implant and graft; Z88.2 Allergy status to sulfonamides; Z79.01 Long term (current) use of anticoagulants; Z79.4 Long term (current) use of insulin; Z95.2 Presence of prosthetic heart valve; Z88.1 Allergy status to other antibiotic agents; B95.2 Enterococcus as the cause of diseases classified elsewhere; I35.0 Nonrheumatic aortic (valve) stenosis

== ENCOUNTER 2017-12-06 11:39 | Inpatient (IN) | payer BC, OTHER ==
[~2017-12-06] VITALS: Ht 154.9 cm; Wt 60.1 kg
[~2017-12-06 11:39] MED LIST changes: -ADVIN25/60 INH; +AMX500 PO; +BISA10SU38 PR; +CMD05 PO; -CMD2 PO; +FAMO20TA11 PO; +FLUT1INH INH; -KFL250 PO; -MIRT15TA2 PO; +MOML PO; +NYSS5 PO; -RANI300T2 PO; +SODIENE PR
[2017-12-06] MEDS ORDERED: SODIUM CHLORIDE 0.9% 1000ML 500 ML IV ONE (12:20)
[2017-12-06 13:19] LABS: INR 1.3 (0.9-1.1); PTT PATIENT 29.7 SECONDS (21.0-31.0)
[2017-12-06 13:27] LABS: BASO % 0.2 %; BASO ABS # 0.03 K/uL (0-0.2); EOS % 2.3 %; HEMATOCRIT 32.4 % (37-47); HEMOGLOBIN 10.4 g/dL (12.0-16.0); IG# 0.04 K/uL (0.00-0.02); LYMPH % 9.1 %; LYMPH ABS # 1.17 K/uL (1.2-3.4); MEAN CELL VOLUME 92.6 fL (80-100); MEAN CORPUSCULAR HEMOGLOBIN 29.7 pg (25-34); MEAN CORPUSCULAR HGB CONC 32.1 g/dl (32-36); MEAN PLATELET VOLUME 9.2 fL (7.4-10.4); MONO % 8.2 %; MONO ABS # 1.05 K/uL (0.11-0.59); NEUT % 79.9 %; NEUT ABS # 10.29 K/uL (1.4-6.5); PLATELET COUNT 379 K/uL (130-400); RED CELL DISTRIBUTION WIDTH CV 15.3 % (11.5-14.5); RED CELL DISTRIBUTION WIDTH SD 51.9 fL (36.4-46.3); WHITE BLOOD COUNT 12.88 K/uL (4.8-10.8)
--- NOTE | 2017-12-06 13:28 | DIAGNOSTIC IMAGING REPORT ---
CHEST ONE VIEW PORTABLE HISTORY: 82 years-old Female Sepsis acute sepsis COMPARISON: Chest radiograph 11/17/2017 TECHNIQUE: Portable AP view the chest FINDINGS: Cardiac silhouette is again enlarged. Endograft of the ascending thoracic aorta with aortic catheter is chronic vascular disease redemonstrated. Interval removal of left-sided PICC. Trace bilateral pleural effusions with pulmonary vascular congestion and subtle bilateral interstitial opacities, left greater than right. No pneumothorax. Subsegmental bibasilar opacities. Suggested hiatal hernia. The bones of the chest appear grossly intact. No fracture of the posterior lateral left fourth and fifth ribs with additional healed remote fractures on the right. IVC filter partially imaged. IMPRESSION: 1. Cardiomegaly with mild pulmonary vascular congestion and trace pleural effusions. 2. Subsegmental left basilar opacities appear unchanged favoring atelectasis with pneumonia also in the differential. The above report was generated using voice recognition software. It may contain grammatical, syntax or spelling errors. Electronically signed by: Joshua Feng M.D. 12/06/2017 1:27 PM Dictated Date/Time: 12/06/2017 1:24 PM
[2017-12-06 13:33] LABS: ALBUMIN 2.7 gm/dl (3.4-5.0); CALCIUM 9.7 mg/dl (8.5-10.1); CREATININE 1.42 mg/dl (0.60-1.20); POTASSIUM 3.9 mmol/L (3.5-5.1)
[2017-12-06] MEDS ORDERED: SODIUM CHLORIDE 0.9% 1000ML 1,000 ML IV SCH (14:54)
[2017-12-06] MEDS ORDERED: ALBUTEROL 0.083% NEBU SOLN 3 ML VIAL INH PRN (15:00)
[2017-12-06] MEDS ORDERED: MAGNESIUM HYDROXIDE SUSP 30 ML UDC PO PRN ×2 (15:00)
[2017-12-06] MEDS ORDERED: SENNA 8.6 MG TAB PO PRN (15:00)
[2017-12-06] MEDS ORDERED: DOCUSATE SODIUM 100 MG CAP PO PRN (15:00)
[2017-12-06] MEDS ORDERED: NITROGLYCERIN 0.4 MG SL PER TAB CHARGE SL PRN (15:00)
[2017-12-06] MEDS ORDERED: ALUMINUM/MAGNESIUM/SIMETH (MAALOX MAX) 30 ML UDC PO PRN (15:00)
[2017-12-06] MEDS ORDERED: POLYETHYLENE (MIRALAX) 17 GM PACK PO PRN ×2 (15:00)
--- NOTE | 2017-12-06 15:01 | History and Physical ---
History & Physical Date & Time of Service: December 06, 2017 at 15:01 Chief Complaint: Fever,Dehydration,Uti Primary Care Physician: Myrna Inman M.D. History of Present Illness Source: patient This 82-year-old female with history of pulmonary embolism with chronic anticoagulation Coumadin/CKD stage III/hypertension/depression Was into to ER with complaint of diarrhea 3-4 loose bowel movement in a day for 2 days No complaint of nausea vomiting/no abdominal pain or discomfort Has chronic dark stools secondary to iron supplement No bright red blood per rectum Episode of fever yesterday and this morning No complaint of cough/shortness of breath Has chronic respiratory failure for COPD on 2 L oxygen at night Reports of burning sensation with urination/has chronic urinary frequency/ incontinence Past Medical/Surgical History Medical Problems: (1) Acute kidney injury (2) Ambulatory dysfunction (3) Anemia (4) Angiectasia (5) Anticoagulated on Coumadin (6) Anticoagulated on Coumadin (7) Aortic stenosis (8) Basal cell carcinoma (9) Benign hypertension (10) Bilateral pulmonary embolism (11) Bronchitis with bronchospasm (12) CAD (coronary artery disease) (13) Change in mental status (14) CHF due to valvular disease (15) CKD (chronic kidney disease) stage 3, GFR 30-59 ml/min (16) Contusion of left knee (17) Creatinine elevation (18) Dehydration (19) Dehydration (20) Dehydration (21) Dehydration (22) Depression (23) Diarrhea (24) Diverticulosis Colon (W/O Ment Of Hemorrhage) (25) Dyslipidemia (26) Dyspnea (27) Dyspnea (28) Elevated troponin (29) Factor V deficiency (30) Falls (31) Gastroparesis (32) GERD (gastroesophageal reflux disease) (33) GI bleed (34) GI bleed (35) Hiatal hernia (36) History of acute minda lesion (37) History of endometrial cancer (38) History of GI bleed (39) History of pulmonary embolism (40) Hypotension (41) IBS (irritable bowel syndrome) (42) Melena (43) Obstructive lung disease (44) Osteoporosis (45) PNA (pneumonia) (46) Pneumonia (47) Polyarthritis (48) Pulmonary embolism (49) Recurrent UTI (50) SBO (small bowel obstruction) (51) Sepsis due to urinary tract infection (52) Small bowel obstruction (53) Small bowel obstruction (54) SOB (shortness of breath) (55) SOB (shortness of breath) (56) Subtherapeutic international normalized ratio (INR) (57) Symptomatic anemia (58) Symptomatic anemia (59) Temporal arteritis (60) Upper GI bleed (61) Urinary tract infection (62) UTI (urinary tract infection) (63) Weakness (64) Weakness Surgical Problems: (1) Hx of cystoscopy (2) S/P left knee arthroscopy (3) S/P TAVR (transcatheter aortic valve replacement) (4) Status post cataract extraction (5) Status post coronary artery stent placement (6) Status post hysterectomy Family History Cancer Diabetes mellitus FH: cardiovascular disease MOTHER Gallbladder disease Hypertension Social History Smoking Status: Never Smoker Drug Use: none Marital Status: Housing status: lives alone Occupational Status: retired Immunizations History of Influenza Vaccine: Yes Influenza Vaccine Date: Apr 18, 2016 History of Tetanus Vaccine?: Yes Tetanus Immunization Date: Nov 27, 2008 History of Pneumococcal: Yes Pneumococcal Date: Apr 21, 2016 History of Hepatitis B Vaccine: Yes Multi-Drug Resistant Organisms History of MDRO: Yes Type of MDRO: MRSA Allergies Coded Allergies: Cefdinir (Verified Allergy, Mild, RASH-HAS HAD ROCEPHIN,CEFEPIME MANY TIMES, 12/06/17) Clonazepam (Verified Allergy, Unknown, ., 12/06/17) Levofloxacin (Verified Allergy, Unknown, unknown, 12/06/17) Sulfasalazine (Verified Allergy, Unknown, ., 12/06/17) Metoclopramide (Verified Adverse Reaction, Intermediate, TREMORS, 12/06/17) Home Medications Scheduled Ascorbic Acid (Ascorbic Acid), 250 MG PO DAILY Fentanyl (Fentanyl), 12 MCG TD Q72H Ferrous Sulfate (Ferrous Sulfate), 325 MG PO BID Fluticasone Furoate-Vilanterol (Breo Ellipta), 1 PUFF INH DAILY Furosemide (Lasix), 40 MG PO DAILY Gabapentin (Neurontin), 100 MG PO DAILY Home O2 Therapy (Oxygen), 3 LITERS NA UD Lactobacillus Acidophilus (Floranex), 1 TAB PO TIDM Magnesium Oxide (Mag-Ox), 400 MG PO DAILY Metoprolol Succinate (Metoprolol Succinate ER), 12.5 MG PO BID Multiple Vitamin (Multivitamin), 0.5 TABLET PO DAILY Nystatin (Nystatin), 5 ML PO QID Pantoprazole (Protonix), 40 MG PO BID Paroxetine (Paroxetine HCl), 40 MG PO DAILY Potassium Chloride (Potassium Chloride Er), 10 MEQ PO BID Prednisone (Prednisone), 15 MG PO UD Warfarin Sod (Coumadin), 1.5 MG PO DAILY Scheduled PRN Acetaminophen (Acetaminophen), 650 MG PO for Pain Albuterol Sulf (Proventil 0.083% 2.5MG/3ML), 2.5 MG INH QID PRN for SOB/Wheezing Bisacodyl (Dulcolax), 1 SUPP OR DAILY PRN for Constipation Docusate Sodium (Colace), 1 CAP PO BID PRN for Constipation Lorazepam (Lorazepam), 0.5 MG PO HS PRN for Insomnia Magnesium Hydroxide (Milk Of Magnesia), 30 ML PO DAILY PRN for Constipation Ondansetron Hcl (Zofran), 4 MG PO Q6 PRN for Nausea Oxycodone/Acetaminophen 5MG/325MG (Percocet 5MG/325MG), 1 TABLET PO Q8H PRN for Pain Polyethylene (Miralax), 17 GM PO DAILY PRN for Constipation Senna (Senokot), 1 TAB PO DAILY PRN for Constipation Sodium Phosphate/Biphosphate (Fleet Enema), 1 EA OR DAILY PRN for Constipation Review of Systems Constitutional: + fever, + chills, + fatigue Respiratory: + cough (Dry cough) Cardiovascular: No chest pain, No orthopnea, No PND, No edema, No claudication , No palpitations, No problem reported Abdomen: + diarrhea Musculoskeletal: + joint pain (Chronic back pain) Genitourinary - Female: + dysuria, + urinary frequency Neurologic: + weakness, + balance problems Psychiatric: + depression symptoms, + anxiety Endocrine: + fatigue Physical Exam Vital Signs Date Time Temp Pulse Resp B/P (MAP) Pulse Ox O2 Delivery O2 Flow Rate FiO2 12/06/17 14:15 93 23 132/69 96 Room Air 12/06/17 13:15 90 18 120/66 95 Room Air 12/06/17 12:46 96 Room Air 12/06/17 12:16 99 12/06/17 11:42 37.0 104 16 110/61 96 Room Air General Appearance: no apparent distress (Elderly female/anxious) Head: normocephalic, atraumatic Eyes: normal inspection, PERRL, EOMI, sclerae normal ENT: + pertinent finding (Healed dermatology/ incision scar on left nasal bridge for basal cell carcinoma) Neck: no carotid bruits, trachea midline Respiratory/Chest: no respiratory distress, + decreased breath sounds Cardiovascular: regular rate, rhythm, no edema, normal peripheral pulses Abdomen/GI: normal bowel sounds, non tender, soft Extremities/Musculoskelatal: no pedal edema Neurologic/Psych: no motor/sensory deficits, alert, oriented x 3, + depressed affect Skin: + pertinent finding (Recent basal cell carcinoma incision on left nasal bridge) Diagnostics Laboratory Results Results Past 24 Hours Test 12/06/17 12:55 12/06/17 12:56 12/06/17 13:40 Range/Units White Blood Count 12.88 4.8-10.8 K/uL Red Blood Count 3.50 4.2-5.4 M/uL Hemoglobin 10.4 12.0-16.0 g/dL Hematocrit 32.4 37-47 % Mean Corpuscular Volume 92.6 80-100 fL Mean Corpuscular Hemoglobin 29.7 25-34 pg Mean Corpuscular Hemoglobin Concent 32.1 32-36 g/dl Platelet Count 379 130-400 K/uL Mean Platelet Volume 9.2 7.4-10.4 fL Neutrophils (%) (Auto) 79.9 % Lymphocytes (%) (Auto) 9.1 % Monocytes (%) (Auto) 8.2 % Eosinophils (%) (Auto) 2.3 % Basophils (%) (Auto) 0.2 % Neutrophils # (Auto) 10.29 1.4-6.5 K/uL Lymphocytes # (Auto) 1.17 1.2-3.4 K/uL Monocytes # (Auto) 1.05 0.11-0.59 K/uL Eosinophils # (Auto) 0.30 0-0.5 K/uL Basophils # (Auto) 0.03 0-0.2 K/uL RDW Standard Deviation 51.9 36.4-46.3 fL RDW Coefficient of Variation 15.3 11.5-14.5 % Immature Granulocyte % (Auto) 0.3 % Immature Granulocyte # (Auto) 0.04 0.00-0.02 K/uL Prothrombin Time 13.7 9.0-12.0 SECONDS Prothromb Time International Ratio 1.3 0.9-1.1 Activated Partial Thromboplast Time 29.7 21.0-31.0 SECONDS Partial Thromboplastin Ratio 1.1 Sodium Level 138 136-145 mmol/L Potassium Level 3.9 3.5-5.1 mmol/L Chloride Level 103 98-107 mmol/L Carbon Dioxide Level 29 21-32 mmol/L Anion Gap 6.0 3-11 mmol/L Blood Urea Nitrogen 26 7-18 mg/dl Creatinine 1.42 0.60-1.20 mg/dl Est Creatinine Clear Calc Drug Dose 24.2 ml/min Estimated GFR () 39.2 Estimated GFR (Non- 33.8 BUN/Creatinine Ratio 18.4 10-20 Random Glucose 112 70-99 mg/dl Calcium Level 9.7 8.5-10.1 mg/dl Total Bilirubin 0.5 0.2-1 mg/dl Aspartate Amino Transf (AST/SGOT) 22 15-37 U/L Alanine Aminotransferase (ALT/SGPT) 23 12-78 U/L Alkaline Phosphatase 107 45-117 U/L Total Protein 7.0 6.4-8.2 gm/dl Albumin 2.7 3.4-5.0 gm/dl Globulin 4.3 2.5-4.0 gm/dl Albumin/Globulin Ratio 0.6 0.9-2 Bedside Lactic Acid Venous 1.61 0.90-1.70 mmol/L Urine Color YELLOW Urine Appearance CLEAR CLEAR Urine pH 6.0 4.5-7.5 Urine Specific [place] 1.015 1.000-1.030 Urine Protein NEG NEG Urine Glucose (UA) NEG NEG Urine Ketones NEG NEG Urine Occult Blood NEG NEG Urine Nitrite NEG NEG Urine Bilirubin NEG NEG Urine Urobilinogen NEG NEG Urine Leukocyte Esterase MODERATE NEG Urine WBC (Auto) 10-30 0-5 /hpf Urine RBC (Auto) 0-4 0-4 /hpf Urine Hyaline Casts (Auto) 1-5 0-5 /lpf Urine Epithelial Cells (Auto) 5-10 0-5 /lpf Urine Bacteria (Auto) NEG NEG Urine Renal Epithelial Cells 0-5 /lpf Urine Yeast (Auto) BUDDING NONE PRSENT Microbiology Results 12/06/17 Blood Culture, Received Pending 12/06/17 Blood Culture, Received Pending 12/06/17 Urine Culture, Received Pending Diagnostic Radiology IMPRESSION: 1. Cardiomegaly with mild pulmonary vascular congestion and trace pleural effusions. 2. Subsegmental left basilar opacities appear unchanged favoring atelectasis with pneumonia also in the differential. The above report was generated using voice recognition software. It may contain grammatical, syntax or spelling errors. EKG Twelve-lead EKG Normal sinus rhythm Left axis deviation voltage criteria for left ventricular Nonspecific ST abnormality Impression Assessment and Plan FEVER/GENERALIZED WEAKNESS: Possible secondary to urinary tract infection Denies of any respiratory symptom Order for blood culture/urine culture POSSIBLE URINARY TRACT UA shows positive leukocyte esterase/budding yeast Urine culture pending Empiric antibiotic with ciprofloxacin Added Diflucan DIARRHEA Since past 2 days No loose stool/diarrhea today Denies of any abdominal pain or cramps No nausea vomiting Appetite normal Order for stool for C. difficile HISTORY OF PE ON COUMADIN/FACTOR V LEIDEN INR subtherapeutic 1.3 Continue Coumadin dose increased to 3 mg daily Subcu heparin bridge for DVT prophylaxis until INR 2 AK I ON CKD STAGE III Possibly secondary to dehydration/UTI Baseline creatinine 1.2-1.3 Hold Lasix Given gentle hydration Avoid NSAIDs/contrast study HISTORY OF CHRONIC DIASTOLIC HEART FAILURE Patient appears to be dehydrated Hold Lasix IV fluids 50 mL/h 1 L only Repeat Lasix dose as soon as possible as dehydration/AK I is corrected Has recurrent history of acutely decompensation of diastolic heart failure/ flash pulmonary edema in past HYPERTENSION Pressure stable continue Lopressor HYPERLIPIDEMIA On statin DEPRESSION New SSRI for depression As needed Ativan for anxiety disorder HISTORY OF COPD Respiratory status stable/no wheeze or shortness of breath Continue as needed neb treatment Home inhalers On 3 L O2 at night chronically CHRONIC LOW BACK PAIN Continue outpatient medication fentanyl patch Hold bowel regimen as patient presents with diarrhea CODE STATUS: DO NOT INTUBATE/DNI DVT PROPHYLAXIS Coumadin/subcu heparin until INR therapeutic DISPOSITION PT OT evaluation prior to returning home Social service consulted for discharge planning Medicine follow-up with Level of Care Telemetry Resuscitation Status FULL NO MECH VENTILATION VTE Prophylaxis Risk Level: High Given or contraindicated: Unfractionated heparin SQ, Warfarin (Coumadin) Social Service Consult >80 yr.& Lives Alone Additional Copies To Myrna Inman M.D.
[2017-12-06 15:19] VITALS: BMI 24.4
[2017-12-06] MEDS ORDERED: FENTANYL 12 MCG/HR TDSY TD ONE (16:30)
[2017-12-06] MEDS: CHECK FENTANYL PATCH PLACEMENT SCH (16:36)
[2017-12-06] MEDS: NYSTATIN SUSP 500,000 U/5 ML UDC PO SCH ×2 (17:00→21:32)
[2017-12-06] MEDS: LACTOBACILLUS ACIDOPHILUS (FLORANEX) TAB PO SCH (17:27)
[2017-12-06] MEDS: WARFARIN SOD 3 MG TAB PO SCH (17:28)
--- NOTE | 2017-12-06 17:33 | EMERGENCY ROOM VISIT NOTE ---
History Report prepared by Henrique: Mariah Chaudhari Under the Supervision of: Dr. Jame Olmedo M.D. First contact with patient: 12:11 Chief Complaint: FEVER Stated Complaint: FEVER,DEHYDRATION,UTI History of Present Illness The patient is an 82 year old female who presents to the Emergency Room with complaints of persistent fever starting this morning. The patient's son reports that the patient had a temperature of 100 this morning. He notes that the patient's temperature generally runs low. She started having diarrhea yesterday afternoon which lasted until around 0100 today. Her urine started to have an odor this morning. She has had black stool which is normal for her. She is on iron. Her stools have not been tarry. She has not had any red blood in her stool. She has felt nauseated and has not been eating as much. She has not vomited. She feels weak and has had some SOB with exertion. She denies any abdominal pain or chest pain. Her hemoglobin was 12.2 3 days ago. She has a history of anemia and GI bleeding. She received a unit of blood 2 weeks ago. She recently had an upper GI scope which did not find any bleeding. She has not had a colonoscopy because she is not a good candidate for surgery. She had a chest X-ray 3 days ago which was clear. She had pneumonia 1 month ago after aspirating during an endoscopy. She also was diagnosed with PE 2 months ago. She is on Coumadin. Source of History: patient, family Onset: this morning Symptom Intensity: 100 Quality: other (fever) Timing: other (persistent) Associated Symptoms: + SOB, + nausea, + diarrhea, + urinary symptoms, + weakness, No chest pain, No vomiting, No abdominal pain, No hematochezia Review of Systems See HPI for pertinent positives & negatives. A total of 10 systems reviewed and were otherwise negative. 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 (8) CKD (chronic kidney disease) stage 3, GFR 30-59 ml/min (9) Dehydration (10) Depression (11) Diarrhea (12) Diverticulosis Colon (W/O Ment Of Hemorrhage) (13) Dyslipidemia (14) Factor V deficiency (15) Falls (16) Gastroparesis (17) GERD (gastroesophageal reflux disease) (18) Hiatal hernia (19) History of acute minda lesion (20) History of endometrial cancer (21) History of GI bleed (22) History of pulmonary embolism (23) IBS (irritable bowel syndrome) (24) Obstructive lung disease (25) Osteoporosis (26) Polyarthritis (27) Recurrent UTI (28) Temporal arteritis Surgical Problems: (1) Hx of cystoscopy (2) S/P left knee arthroscopy (3) S/P TAVR (transcatheter aortic valve replacement) (4) Status post cataract extraction (5) Status post coronary artery stent placement (6) Status post hysterectomy Family History Cancer Diabetes mellitus FH: cardiovascular disease MOTHER Gallbladder disease Hypertension Social History Smoking Status: Never Smoker Alcohol Use: none Drug Use: none Marital Status: Housing Status: lives alone Occupation Status: retired Current/Historical Medications Scheduled Ascorbic Acid (Ascorbic Acid), 250 MG PO DAILY Fentanyl (Fentanyl), 12 MCG TD Q72H Ferrous Sulfate (Ferrous Sulfate), 325 MG PO BID Fluticasone Furoate-Vilanterol (Breo Ellipta), 1 PUFF INH DAILY Furosemide (Lasix), 40 MG PO DAILY Gabapentin (Neurontin), 100 MG PO DAILY Home O2 Therapy (Oxygen), 3 LITERS NA UD Lactobacillus Acidophilus (Floranex), 1 TAB PO TIDM Magnesium Oxide (Mag-Ox), 400 MG PO DAILY Metoprolol Succinate (Metoprolol Succinate ER), 12.5 MG PO BID Multiple Vitamin (Multivitamin), 0.5 TABLET PO DAILY Nystatin (Nystatin), 5 ML PO QID Pantoprazole (Protonix), 40 MG PO BID Paroxetine (Paroxetine HCl), 40 MG PO DAILY Potassium Chloride (Potassium Chloride Er), 10 MEQ PO BID Prednisone (Prednisone), 15 MG PO UD Warfarin Sod (Coumadin), 1.5 MG PO DAILY Scheduled PRN Acetaminophen (Acetaminophen), 650 MG PO for Pain Albuterol Sulf (Proventil 0.083% 2.5MG/3ML), 2.5 MG INH QID PRN for SOB/Wheezing Bisacodyl (Dulcolax), 1 SUPP NM DAILY PRN for Constipation Docusate Sodium (Colace), 1 CAP PO BID PRN for Constipation Lorazepam (Lorazepam), 0.5 MG PO HS PRN for Insomnia Magnesium Hydroxide (Milk Of Magnesia), 30 ML PO DAILY PRN for Constipation Ondansetron Hcl (Zofran), 4 MG PO Q6 PRN for Nausea Oxycodone/Acetaminophen 5MG/325MG (Percocet 5MG/325MG), 1 TABLET PO Q8H PRN for Pain Polyethylene (Miralax), 17 GM PO DAILY PRN for Constipation Senna (Senokot), 1 TAB PO DAILY PRN for Constipation Sodium Phosphate/Biphosphate (Fleet Enema), 1 EA NM DAILY PRN for Constipation Allergies Coded Allergies: Cefdinir (Verified Allergy, Mild, RASH-HAS HAD ROCEPHIN,CEFEPIME MANY TIMES, 12/06/17) Clonazepam (Verified Allergy, Unknown, ., 12/06/17) Levofloxacin (Verified Allergy, Unknown, unknown, 12/06/17) Sulfasalazine (Verified Allergy, Unknown, ., 12/06/17) Metoclopramide (Verified Adverse Reaction, Intermediate, TREMORS, 12/06/17) Physical Exam Vital Signs Date Time Temp Pulse Resp B/P (MAP) Pulse Ox O2 Delivery O2 Flow Rate FiO2 12/06/17 14:15 93 23 132/69 96 Room Air 12/06/17 13:15 90 18 120/66 95 Room Air 12/06/17 12:46 96 Room Air 12/06/17 12:16 99 12/06/17 11:42 37.0 104 16 110/61 96 Room Air Physical Exam Constitutional: Vital signs reviewed. Eyes: Pupils are equal round reactive to light. Conjunctiva are noninjected. ENT: Pharynx is clear without erythema or exudate. Mucous membranes are dry. Neck supple without meningeal signs. Respiratory: Clear to auscultation bilaterally. Breath sounds are equal bilaterally. Cardiovascular: Regular rate and rhythm. No rubs or gallops. GI: Soft, nondistended and nontender. Bowel sounds are present. Musculoskeletal: No peripheral edema. No lower extremity tenderness. Integumentary: No cyanosis. Neurological: The patient is awake and alert. No focal deficits. Psychiatric: Normal affect. Medical Decision & Procedures ER Provider Diagnostic Interpretation: X-ray results as stated below per interpretation by me and the radiologist: CHEST ONE VIEW PORTABLE HISTORY: 82 years-old Female Sepsis acute sepsis COMPARISON: Chest radiograph 11/17/2017 TECHNIQUE: Portable AP view the chest FINDINGS: Cardiac silhouette is again enlarged. Endograft of the ascending thoracic aorta with aortic catheter is chronic vascular disease redemonstrated. Interval removal of left-sided PICC. Trace bilateral pleural effusions with pulmonary vascular congestion and subtle bilateral interstitial opacities, left greater than right. No pneumothorax. Subsegmental bibasilar opacities. Suggested hiatal hernia. The bones of the chest appear grossly intact. No fracture of the posterior lateral left fourth and fifth ribs with additional healed remote fractures on the right. IVC filter partially imaged. IMPRESSION: 1. Cardiomegaly with mild pulmonary vascular congestion and trace pleural effusions. 2. Subsegmental left basilar opacities appear unchanged favoring atelectasis with pneumonia also in the differential. The above report was generated using voice recognition software. It may contain grammatical, syntax or spelling errors. Electronically signed by: Joshua Feng M.D. 12/06/2017 1:27 PM Dictated Date/Time: 12/06/2017 1:24 PM Laboratory Results 12/06/17 12:55 Red Blood Count 3.50, Mean Corpuscular Volume 92.6, Mean Corpuscular Hemoglobin 29.7, Mean Corpuscular Hemoglobin Concent 32.1, Mean Platelet Volume 9.2, Neutrophils (%) (Auto) 79.9, Lymphocytes (%) (Auto) 9.1, Monocytes (%) (Auto) 8.2, Eosinophils (%) (Auto) 2.3, Basophils (%) (Auto) 0.2, Neutrophils # (Auto) 10.29, Lymphocytes # (Auto) 1.17, Monocytes # (Auto) 1.05, Eosinophils # (Auto) 0.30, Basophils # (Auto) 0.03 12/06/17 12:55 Test 12/06/17 12:55 12/06/17 12:56 12/06/17 13:40 White Blood Count 12.88 K/uL (4.8-10.8) Red Blood Count 3.50 M/uL (4.2-5.4) Hemoglobin 10.4 g/dL (12.0-16.0) Hematocrit 32.4 % (37-47) Mean Corpuscular Volume 92.6 fL (80-100) Mean Corpuscular Hemoglobin 29.7 pg (25-34) Mean Corpuscular Hemoglobin Concent 32.1 g/dl (32-36) Platelet Count 379 K/uL (130-400) Mean Platelet Volume 9.2 fL (7.4-10.4) Neutrophils (%) (Auto) 79.9 % Lymphocytes (%) (Auto) 9.1 % Monocytes (%) (Auto) 8.2 % Eosinophils (%) (Auto) 2.3 % Basophils (%) (Auto) 0.2 % Neutrophils # (Auto) 10.29 K/uL (1.4-6.5) Lymphocytes # (Auto) 1.17 K/uL (1.2-3.4) Monocytes # (Auto) 1.05 K/uL (0.11-0.59) Eosinophils # (Auto) 0.30 K/uL (0-0.5) Basophils # (Auto) 0.03 K/uL (0-0.2) RDW Standard Deviation 51.9 fL (36.4-46.3) RDW Coefficient of Variation 15.3 % (11.5-14.5) Immature Granulocyte % (Auto) 0.3 % Immature Granulocyte # (Auto) 0.04 K/uL (0.00-0.02) Prothrombin Time 13.7 SECONDS (9.0-12.0) Prothromb Time International Ratio 1.3 (0.9-1.1) Activated Partial Thromboplast Time 29.7 SECONDS (21.0-31.0) Partial Thromboplastin Ratio 1.1 Anion Gap 6.0 mmol/L (3-11) Est Creatinine Clear Calc Drug Dose 24.2 ml/min Estimated GFR () 39.2 Estimated GFR (Non- 33.8 BUN/Creatinine Ratio 18.4 (10-20) Calcium Level 9.7 mg/dl (8.5-10.1) Total Bilirubin 0.5 mg/dl (0.2-1) Aspartate Amino Transf (AST/SGOT) 22 U/L (15-37) Alanine Aminotransferase (ALT/SGPT) 23 U/L (12-78) Alkaline Phosphatase 107 U/L (45-117) Total Protein 7.0 gm/dl (6.4-8.2) Albumin 2.7 gm/dl (3.4-5.0) Globulin 4.3 gm/dl (2.5-4.0) Albumin/Globulin Ratio 0.6 (0.9-2) Bedside Lactic Acid Venous 1.61 mmol/L (0.90-1.70) Urine Color YELLOW Urine Appearance CLEAR (CLEAR) Urine pH 6.0 (4.5-7.5) Urine Specific [place] 1.015 (1.000-1.030) Urine Protein NEG (NEG) Urine Glucose (UA) NEG (NEG) Urine Ketones NEG (NEG) Urine Occult Blood NEG (NEG) Urine Nitrite NEG (NEG) Urine Bilirubin NEG (NEG) Urine Urobilinogen NEG (NEG) Urine Leukocyte Esterase MODERATE (NEG) Urine WBC (Auto) 10-30 /hpf (0-5) Urine RBC (Auto) 0-4 /hpf (0-4) Urine Hyaline Casts (Auto) 1-5 /lpf (0-5) Urine Epithelial Cells (Auto) 5-10 /lpf (0-5) Urine Bacteria (Auto) NEG (NEG) Urine Renal Epithelial Cells /lpf (0-5) Urine Yeast (Auto) BUDDING (NONE PRSENT) Laboratory results as reviewed by me. Medications Administered Medications (Trade) Dose Ordered Sig/Rosi Route Start Time Stop Time Status Last Admin Dose Admin Sodium Chloride 500 ml @ 999 mls/hr Q31M ONCE IV 12/06/17 12:20 12/06/17 12:50 DC 12/06/17 13:14 999 MLS/HR ECG Per My Interpretation Indication: weakness Rate (beats per minute): 89 Rhythm: normal sinus Findings: other (LVH, no ST elevation, no PVC) ED Course 1214: The patient was evaluated in room C11B. A complete history and physical exam was performed. 1220: Sodium Chloride 500 ml @ 999 mls/hr IV. 1434: I reevaluated the patient. I discussed the test results with them. The son states she is very weak and can't take care of herself and he is going out of town tomorrow. They verbalized agreement of the treatment plan. She will be evaluated for further management. 1445: I discussed the patient's case with Dr. Acosta, [facility] hospitalist. The patient will be further evaluated by her. Medical Decision This is an 82-year-old female presents with diarrhea, urinary symptoms and fever. Differential diagnosis includes UTI, pyelonephritis, C. difficile colitis, dehydration, enteritis. I did perform a limited focused review of portions of the patient's old chart on the electronic medical record. The patient was admitted November 13 for pneumonia and anemia. She was discharged on amoxicillin, fentanyl, and Coumadin. She has a history of PE diagnosed in October and has an IVC filter. She also had a UTI which was treated with Keflex for klebsiella. I did evaluate the patient as noted above. The patient appears clinically dry. IV access was established. The patient was placed on a continuous cardiac rehabilitation program director. I did treat her with normal saline IV. I did order and personally review the patient's 12-lead EKG and chest x-ray as described above. Chest x- ray does not show any consolidation. I did order and review the patient's blood work as noted in the electronic medical record. Her creatinine is elevated above baseline. Likely from dehydration. Her white blood cell count is elevated. I did order a urine analysis which does show signs of infection. I did discuss the test results with the patient and her son. Her son states that she has been very weak and cannot stand up or take care of herself on her own. He is going to be out of town starting tomorrow. Due to her worsening renal function and dehydration with persistent diarrhea I did feel she should be hospitalized for IV fluids and further care. I did discuss case with the hospitalist and patient case coordinator. I did order C. difficile testing but she was unable to give us a sample. Medication Reconcilliation Current Medication List: was personally reviewed by me Blood Pressure Screening Patient's blood pressure: Normal blood pressure Blood pressure disposition: Did not require urgent referral Consults Time Called: [phone] Consulting Physician: Dr. Acosta [facility] hospitalist Returned Call: [phone] I discussed the patient's case with her. The patient will be further evaluated by her. Impression Primary Impression: Dehydration Additional Impressions: Diarrhea UTI (urinary tract infection) Weakness Scribe Attestation The scribe's documentation has been prepared under my direct and personally reviewed by me in its entirety. I confirm that the note above accurately reflects all work, treatment, procedures, and medical decision making performed by me. Departure Information Dispostion Being Evaluated By Hospitalist Referrals Myrna Inman M.D. (PCP) Patient Instructions My [facility] Problem Qualifiers Additional Impressions: Diarrhea Diarrhea type: unspecified type Qualified Codes: R19.7 - Diarrhea, unspecified UTI (urinary tract infection) Urinary tract infection type: acute cystitis Hematuria presence: without hematuria Qualified Codes: N30.00 - Acute cystitis without hematuria
[2017-12-06] MEDS: OXYCODONE/ACETAMINOPHEN 5-325 TAB PO PRN (18:28)
[2017-12-06 19:15] VITALS: BP 97/60; PULSE 85; TEMP 36.7; O2SAT 98
[2017-12-06 20:00] VITALS: O2SAT 98
[2017-12-06] MEDS: POTASSIUM CHLORIDE 10 MEQ TABCR PO SCH (21:30)
[2017-12-06] MEDS: PANTOprazole SOD 40 MG TAB PO SCH (21:31)
[2017-12-06] MEDS: FERROUS SULFATE 325 MG TAB PO SCH (21:31)
[2017-12-06] MEDS: METOPROLOL SUCC 25MG EXT REL TAB PO SCH (21:32)
[2017-12-06] MEDS: HEPARIN SOD 5000 UNIT/0.5 ML CARP SQ SCH (21:33)
[2017-12-06] MEDS: LORAZEPAM 0.5 MG TAB PO PRN (21:35)
[2017-12-06] MEDS ORDERED: ALBUT/IPRATROP 3MG/0.5MG NEB 3 ML VIAL INH PRN (22:30)
[2017-12-06 23:37] VITALS: BP 93/54; PULSE 74; TEMP 36.6; O2SAT 98
[2017-12-06] MEDS: CIPROFLOXACIN 250 MG TAB PO SCH (23:53)
[2017-12-07] VITALS (8 sets, daily range): BP systolic 91–123; BP diastolic 51–75; PULSE 71–85; TEMP 36.3–37.1; O2SAT 97–100; Ht 154.9 cm; Wt 60.1 kg
[2017-12-07 06:13] LABS: HEMATOCRIT 28.5 % (37-47); MEAN CELL VOLUME 92.8 fL (80-100); MEAN CORPUSCULAR HEMOGLOBIN 29.3 pg (25-34); MEAN CORPUSCULAR HGB CONC 31.6 g/dl (32-36); MEAN PLATELET VOLUME 9.1 fL (7.4-10.4); PLATELET COUNT 322 K/uL (130-400); RED CELL DISTRIBUTION WIDTH CV 15.4 % (11.5-14.5); RED CELL DISTRIBUTION WIDTH SD 52.8 fL (36.4-46.3); WHITE BLOOD COUNT 7.91 K/uL (4.8-10.8)
[2017-12-07 06:28] LABS: INR 1.4 (0.9-1.1)
[2017-12-07 06:51] LABS: CALCIUM 9.3 mg/dl (8.5-10.1); CREATININE 1.13 mg/dl (0.60-1.20); POTASSIUM 4.1 mmol/L (3.5-5.1)
[2017-12-07] MEDS: NYSTATIN SUSP 500,000 U/5 ML UDC PO SCH ×4 (08:06→20:43)
[2017-12-07] MEDS: MULTIVITAMIN TAB PO SCH (08:06)
[2017-12-07] MEDS: ASCORBIC ACID 500 MG TAB PO SCH (08:07)
[2017-12-07] MEDS: PAROXETINE 20 MG TAB PO SCH (08:07)
[2017-12-07] MEDS: PANTOprazole SOD 40 MG TAB PO SCH ×2 (08:07→20:43)
[2017-12-07] MEDS: GABAPENTIN 100 MG CAP PO SCH (08:07)
[2017-12-07] MEDS: LACTOBACILLUS ACIDOPHILUS (FLORANEX) TAB PO SCH ×3 (08:08→16:43)
[2017-12-07] MEDS: POTASSIUM CHLORIDE 10 MEQ TABCR PO SCH ×2 (08:08→20:45)
[2017-12-07] MEDS: FERROUS SULFATE 325 MG TAB PO SCH ×2 (08:08→20:46)
[2017-12-07] MEDS: MAGNESIUM OXIDE 400 MG TAB PO SCH (08:08)
[2017-12-07] MEDS: CHECK FENTANYL PATCH PLACEMENT SCH ×4 (08:09→23:20)
[2017-12-07] MEDS: HEPARIN SOD 5000 UNIT/0.5 ML CARP SQ SCH (08:17)
[2017-12-07] MEDS: METOPROLOL SUCC 25MG EXT REL TAB PO SCH ×2 (08:28→20:44)
[2017-12-07] MEDS: OXYCODONE/ACETAMINOPHEN 5-325 TAB PO PRN ×2 (08:35→16:42)
[2017-12-07] MEDS ORDERED: FLUCONAZOLE 50 MG TAB PO SCH (09:00)
[2017-12-07] MEDS ORDERED: FUROSEMIDE 40 MG TAB PO ONE (09:30)
[2017-12-07] MEDS ORDERED: HEPARIN IV LOW DOSE NO BOLUS SCH (09:46)
[2017-12-07] MEDS ORDERED: HEPARIN 25,000 UNIT/500ML D5W 500 ML IV SCH (10:00)
[2017-12-07 10:05] LABS: PTT PATIENT 33.1 SECONDS (21.0-31.0)
--- NOTE | 2017-12-07 10:08 | Progress Note ---
Medicine Progress Note Date & Time of Visit: December 07, 2017 at 10:08. Subjective Seen sitting up in bedside chair, comfortable, in good spirits States she feels improved today Feels that she has more energy and more alert Denies urinary symptoms No diarrhea so far, no abdominal pain Denies chest pain shortness of breath No other symptoms Objective Last 8 Hrs Date Time Temp Pulse Resp B/P (MAP) Pulse Ox O2 Delivery O2 Flow Rate FiO2 12/07/17 06:33 36.6 71 17 96/57 (70) 99 Nasal Cannula 2.0 12/07/17 04:00 36.6 72 14 119/64 (82) 97 Nasal Cannula 2.0 12/07/17 04:00 98 Nasal Cannula 2.0 Physical Exam: General-oriented 3, not in distress speaking sentences no accessory muscle use Head- atraumatic Eyes- PERRL, EOMI, anicteric ENT- oropharynx clear Neck- supple, no JVD, no adenopathy Lungs-mild rales bilateral bases No wheezing Heart- regular rhythm; no murmur, normal rate Abdomen- normal bowel sounds, soft, nontender, no masses or hepatosplenomegaly Extremities- no pretibial edema, no calf tenderness; peripheral pulses intact Neuro- alert, oriented x 3; no gross focal neurologic deficits Skin- warm & dry Laboratory Results: Last 24 Hours Test 12/06/17 12:55 12/06/17 12:56 12/06/17 13:40 12/07/17 05:27 White Blood Count 12.88 K/uL 7.91 K/uL Red Blood Count 3.50 M/uL 3.07 M/uL Hemoglobin 10.4 g/dL 9.0 g/dL Hematocrit 32.4 % 28.5 % Mean Corpuscular Volume 92.6 fL 92.8 fL Mean Corpuscular Hemoglobin 29.7 pg 29.3 pg Mean Corpuscular Hemoglobin Concent 32.1 g/dl 31.6 g/dl Platelet Count 379 K/uL 322 K/uL Mean Platelet Volume 9.2 fL 9.1 fL Neutrophils (%) (Auto) 79.9 % Lymphocytes (%) (Auto) 9.1 % Monocytes (%) (Auto) 8.2 % Eosinophils (%) (Auto) 2.3 % Basophils (%) (Auto) 0.2 % Neutrophils # (Auto) 10.29 K/uL Lymphocytes # (Auto) 1.17 K/uL Monocytes # (Auto) 1.05 K/uL Eosinophils # (Auto) 0.30 K/uL Basophils # (Auto) 0.03 K/uL RDW Standard Deviation 51.9 fL 52.8 fL RDW Coefficient of Variation 15.3 % 15.4 % Immature Granulocyte % (Auto) 0.3 % Immature Granulocyte # (Auto) 0.04 K/uL Prothrombin Time 13.7 SECONDS 14.7 SECONDS Prothromb Time International Ratio 1.3 1.4 Activated Partial Thromboplast Time 29.7 SECONDS Partial Thromboplastin Ratio 1.1 Sodium Level 138 mmol/L 139 mmol/L Potassium Level 3.9 mmol/L 4.1 mmol/L Chloride Level 103 mmol/L 108 mmol/L Carbon Dioxide Level 29 mmol/L 29 mmol/L Anion Gap 6.0 mmol/L 2.0 mmol/L Blood Urea Nitrogen 26 mg/dl 22 mg/dl Creatinine 1.42 mg/dl 1.13 mg/dl Est Creatinine Clear Calc Drug Dose 24.2 ml/min 30.7 ml/min Estimated GFR () 39.2 51.7 Estimated GFR (Non- 33.8 44.6 BUN/Creatinine Ratio 18.4 19.1 Random Glucose 112 mg/dl 86 mg/dl Calcium Level 9.7 mg/dl 9.3 mg/dl Total Bilirubin 0.5 mg/dl Aspartate Amino Transf (AST/SGOT) 22 U/L Alanine Aminotransferase (ALT/SGPT) 23 U/L Alkaline Phosphatase 107 U/L Total Protein 7.0 gm/dl Albumin 2.7 gm/dl Globulin 4.3 gm/dl Albumin/Globulin Ratio 0.6 Bedside Lactic Acid Venous 1.61 mmol/L Urine Color YELLOW Urine Appearance CLEAR Urine pH 6.0 Urine Specific [place] 1.015 Urine Protein NEG Urine Glucose (UA) NEG Urine Ketones NEG Urine Occult Blood NEG Urine Nitrite NEG Urine Bilirubin NEG Urine Urobilinogen NEG Urine Leukocyte Esterase MODERATE Urine WBC (Auto) 10-30 /hpf Urine RBC (Auto) 0-4 /hpf Urine Hyaline Casts (Auto) 1-5 /lpf Urine Epithelial Cells (Auto) 5-10 /lpf Urine Bacteria (Auto) NEG Urine Renal Epithelial Cells /lpf Urine Yeast (Auto) BUDDING Test 12/07/17 09:30 12/07/17 09:46 Activated Partial Thromboplast Time 33.1 SECONDS Partial Thromboplastin Ratio 1.3 Date/Time Source Procedure Growth Status 12/06/17 12:57 Blood Blood Culture Pending Received 12/06/17 12:55 Blood Blood Culture Pending Received 12/06/17 13:40 Urine,Catheterized Urine Culture Pending Received Assessment & Plan FEVER/GENERALIZED WEAKNESS: Rule out UTI Rule out infectious diarrhea -Afebrile so far Leukocytosis resolved Weakness improving RULE OUT UTI History of frequent UTI UA shows positive leukocyte esterase/budding yeast Urine culture pending Empiric antibiotic with ciprofloxacin Added Diflucan Monitor DIARRHEA Since past 2 days C. difficile and stool cultures pending Seems to have resolved On empiric Cipro HISTORY OF PE ON COUMADIN/FACTOR V LEIDEN Diagnosis October 2017 INR subtherapeutic 1.3 Heparin bridge IV heparin plus Coumadin INR goal 2-3 Monitor INR daily AK I ON CKD STAGE III Possibly secondary to dehydration/UTI Baseline creatinine 1.2-1.3 Resolved Stop IV fluids Resume Lasix 40 mg daily Monitor closely HISTORY OF CHRONIC DIASTOLIC HEART FAILURE Patient has developed crackles today IV fluids stopped Patient p.o. Lasix was Monitor closely as patient has a history of flash pulmonary edema HYPERTENSION Pressure stable continue Lopressor HYPERLIPIDEMIA On statin DEPRESSION New SSRI for depression As needed Ativan for anxiety disorder HISTORY OF COPD Respiratory status stable/no wheeze or shortness of breath Continue as needed neb treatment Home inhalers On 3 L O2 at night chronically CHRONIC LOW BACK PAIN Continue outpatient medication fentanyl patch Hold bowel regimen as patient presents with diarrhea CODE STATUS: DO NOT INTUBATE/DNI DVT PROPHYLAXIS Coumadin plus heparin bridge until INR therapeutic DISPOSITION PT OT evaluation prior to returning home Patient lives at home with son Social service consulted for discharge planning Medicine follow-up with Current Inpatient Medications: Current Inpatient Medications Medications (Trade) Dose Ordered Sig/Rosi Route Start Time Stop Time Status Last Admin Dose Admin Acetaminophen (Tylenol Tab) 650 mg Q4H PRN PO 12/06/17 15:00 01/05/18 14:59 Al Hydrox/Mg Hydrox/Simethicone (Maalox Max Susp) 15 ml Q4H PRN PO 12/06/17 15:00 01/05/18 14:59 Ondansetron HCl (Zofran Inj) 4 mg Q6H PRN IV 12/06/17 15:00 01/05/18 14:59 Nitroglycerin (Nitrostat Tab) 0.4 mg UD PRN SL 12/06/17 15:00 01/05/18 14:59 Fentanyl (Duragesic Patch) 12 mcg Q72H TD 12/09/17 09:00 12/23/17 08:59 Ferrous Sulfate (Feosol Tab) 325 mg BID PO 12/06/17 21:00 01/05/18 20:59 12/07/17 08:08 325 MG Gabapentin (Neurontin Cap) 100 mg DAILY PO 12/07/17 09:00 01/06/18 08:59 12/07/17 08:07 100 MG Lactobacillus Acidophilus (Floranex Tab) 4 tab TIDM PO 12/06/17 16:45 01/05/18 17:59 12/07/17 08:08 4 TAB Lorazepam (Ativan Tab) 0.5 mg HS PRN PO 12/06/17 15:00 01/05/18 14:59 12/06/17 21:35 0.5 MG Magnesium Oxide (Mag-Ox Tab) 400 mg DAILY PO 12/07/17 09:00 01/06/18 08:59 12/07/17 08:08 400 MG Metoprolol Succinate (Toprol Xl Tab) 12.5 mg BID PO 12/06/17 21:00 01/05/18 20:59 12/06/17 21:32 12.5 MG Multivitamins (Multivitamin Tab) 1 tab DAILY PO 12/07/17 09:00 01/06/18 08:59 12/07/17 08:06 1 TAB Nystatin (Mycostatin Susp) 5 ml QID PO 12/06/17 17:00 12/16/17 16:59 12/07/17 08:06 5 ML Ondansetron HCl (Zofran Tab) 4 mg Q6 PRN PO 12/06/17 15:00 01/05/18 14:59 Oxycodone/ Acetaminophen (Percocet 5-325mg Tab) 1 tab Q8H PRN PO 12/06/17 15:00 12/20/17 14:59 12/07/17 08:35 1 TAB Pantoprazole Sodium (Protonix Tab) 40 mg BID PO 12/06/17 21:00 01/05/18 20:59 12/07/17 08:07 40 MG Ascorbic Acid (Vitamin C Tab) 250 mg DAILY PO 12/07/17 09:00 01/06/18 08:59 12/07/17 08:07 250 MG Miscellaneous Information (Order Awaiting Action) 1 ea QS N/A 12/06/17 16:00 01/05/18 15:59 Paroxetine HCl (pAXil TAB) 40 mg DAILY PO 12/07/17 09:00 01/06/18 08:59 12/07/17 08:07 40 MG Potassium Chloride (Klor-Con M10) 10 meq BID PO 12/06/17 21:00 01/05/18 20:59 12/07/17 08:08 10 MEQ Warfarin Sodium (Coumadin Tab) 3 mg DAILY@16 PO 12/06/17 16:00 01/05/18 15:59 12/06/17 17:28 3 MG Miscellaneous (Fentanyl Patch Remove & Waste) 1 ea Q3D@0859 N/A 12/09/17 08:59 01/08/18 08:58 Miscellaneous Information (Check Fentanyl Patch Placement) 1 ea QS N/A 12/06/17 16:00 01/05/18 15:59 12/07/17 08:09 1 EA Ciprofloxacin (Ciprofloxacin Tab) 250 mg Q12H PO 12/06/17 22:15 12/11/17 22:14 12/06/17 23:53 250 MG Albuterol/ Ipratropium (Duoneb) 3 ml Q4R PRN INH 12/06/17 22:30 01/05/18 22:29 Fluconazole (Diflucan Tab) 50 mg QAM PO 12/07/17 09:00 12/12/17 08:59 12/07/17 08:07 50 MG Furosemide (Lasix Tab) 40 mg DAILY PO 12/08/17 09:00 01/07/18 08:59 Heparin Sodium/ Dextrose 500 ml @ 13 mls/hr Q24H IV 12/07/17 10:00 01/06/18 09:59
[2017-12-07 10:30] LABS: INR 1.5 (0.9-1.1)
[2017-12-07] MEDS: CIPROFLOXACIN 250 MG TAB PO SCH ×2 (10:33→20:45)
[2017-12-07 10:44] LABS: BASO % 0.2 %; BASO ABS # 0.02 K/uL (0-0.2); EOS % 2.7 %; EOS ABS # 0.22 K/uL (0-0.5); IG# 0.04 K/uL (0.00-0.02); LYMPH ABS # 1.62 K/uL (1.2-3.4); MONO % 9.9 %; NEUT % 66.7 %; NEUT ABS # 5.39 K/uL (1.4-6.5)
[2017-12-07] MEDS: ACETAMINOPHEN 325 MG TAB PO PRN ×2 (11:13→20:42)
[2017-12-07] MEDS: WARFARIN SOD 3 MG TAB PO SCH (16:42)
[2017-12-07 18:09] LABS: PTT PATIENT 56.6 SECONDS (21.0-31.0)
[2017-12-07] MEDS: LORAZEPAM 0.5 MG TAB PO PRN (20:42)
[2017-12-08] VITALS (10 sets, daily range): BP systolic 121–141; BP diastolic 75–87; PULSE 82–103; TEMP 36.6–37.3; O2SAT 96–100
[2017-12-08 06:30] LABS: HEMOGLOBIN 9.7 g/dL (12.0-16.0); MEAN CELL VOLUME 93.4 fL (80-100); MEAN CORPUSCULAR HEMOGLOBIN 29.2 pg (25-34); MEAN CORPUSCULAR HGB CONC 31.3 g/dl (32-36); MEAN PLATELET VOLUME 8.8 fL (7.4-10.4); PLATELET COUNT 337 K/uL (130-400); RED CELL DISTRIBUTION WIDTH CV 15.3 % (11.5-14.5); RED CELL DISTRIBUTION WIDTH SD 51.9 fL (36.4-46.3)
[2017-12-08 06:48] LABS: INR 2.4 (0.9-1.1)
[2017-12-08 06:50] LABS: PTT PATIENT 96.8 SECONDS (21.0-31.0)
[2017-12-08 07:04] LABS: CALCIUM 9.3 mg/dl (8.5-10.1); CREATININE 1.22 mg/dl (0.60-1.20); POTASSIUM 4.2 mmol/L (3.5-5.1)
[2017-12-08] MEDS: OXYCODONE/ACETAMINOPHEN 5-325 TAB PO PRN ×2 (07:24→19:41)
[2017-12-08] MEDS ORDERED: DOCUSATE SODIUM/SENNA 50/8.6MG TAB PO PRN (07:45)
[2017-12-08] MEDS ORDERED: NURSING VERBAL MED ORDER ONE (07:45)
[2017-12-08] MEDS ORDERED: POLYETHYLENE (MIRALAX) 17 GM PACK PO PRN (07:45)
[2017-12-08] MEDS: LACTOBACILLUS ACIDOPHILUS (FLORANEX) TAB PO SCH ×3 (08:49→16:48)
[2017-12-08] MEDS: MAGNESIUM OXIDE 400 MG TAB PO SCH (08:50)
[2017-12-08] MEDS: CHECK FENTANYL PATCH PLACEMENT SCH ×2 (08:50→16:46)
[2017-12-08] MEDS: POTASSIUM CHLORIDE 10 MEQ TABCR PO SCH ×2 (08:51→19:42)
[2017-12-08] MEDS: NYSTATIN SUSP 500,000 U/5 ML UDC PO SCH ×4 (08:51→19:43)
[2017-12-08] MEDS: ASCORBIC ACID 500 MG TAB PO SCH (08:51)
[2017-12-08] MEDS: CIPROFLOXACIN 250 MG TAB PO SCH ×2 (08:51→21:49)
[2017-12-08] MEDS: FUROSEMIDE 40 MG TAB PO SCH (08:52)
[2017-12-08] MEDS: GABAPENTIN 100 MG CAP PO SCH (08:52)
[2017-12-08] MEDS: MULTIVITAMIN TAB PO SCH (08:52)
[2017-12-08] MEDS: PAROXETINE 20 MG TAB PO SCH (08:53)
[2017-12-08] MEDS: FERROUS SULFATE 325 MG TAB PO SCH ×2 (08:54→19:42)
[2017-12-08] MEDS: METOPROLOL SUCC 25MG EXT REL TAB PO SCH ×2 (08:54→19:46)
[2017-12-08] MEDS: PANTOprazole SOD 40 MG TAB PO SCH ×2 (08:54→19:50)
[2017-12-08] MEDS: LORAZEPAM 0.5 MG TAB PO PRN (10:41)
--- NOTE | 2017-12-08 11:03 | Progress Note ---
Internal Med Progress Note Date of Service: December 08, 2017. Provider Documentation: SUBJECTIVE: Seen and examined at bedside Has generalized weakness States feeling anxious this morning Denies chest pain, abd pain, dizziness, nausea No other complaints INR is therapeutic range, Heparin ggt discontinued OBJECTIVE: Vital Signs-as noted below Physical Exam: General Appearance:Moderately built and nourished, no apparent distress Head: normocephalic, Atraumatic Eyes: normal inspection, EOMI, PERRL Neck: supple, Trachea midline Respiratory/Chest: Decreased breath sounds, + basal crepitations Cardiovascular: S1, S2, No murmur Abdomen/GI:Soft, Non tender, Bowel sounds present Extremities/Musculoskelatal:normal inspection, Trace edema Neurologic/Psych:AAOX3, grossly no focal neurological deficits Skin: normal color, warm Lab data as noted below. ASSESSMENT & PLAN: Fever/Generalized weakness: Rule out Infection Afebrile Leukocytosis resolved Weakness improving PT/OT Rule Out UTI H/O frequent UTI UA shows positive leukocyte esterase/budding yeast Urine culture: pending continue ciprofloxacin empirically Added Diflucan Monitor Diarrhea: Resolved Check C. difficile and stool cultures if diarrhea reoccurs On Cipro for now H/O PE/ Factor V Leiden INR subtherapeutic 1.3>>>2.4 DC Heparin ggt Continue Coumadin Monitor INR MYRTLE on CKD III Possibly secondary to dehydration/UTI Baseline creatinine 1.2-1.3 Resolved IV fluids discontinued Monitor renal function H/O Chronic diastolic CHF Lasix resumed IV fluids discontinued monitor for volume overload given H/O flash pulmonary edema HTN: Stable continue current meds Hyperlipidemia: On statin Depression/Anxiety disorder: continue Paxil As needed Ativan for anxiety disorder H/O COPD Respiratory status stable/no wheeze Continue as needed neb treatment Home inhalers On 3 L O2 at night chronically Chronic Lower Back Pain: Continue outpatient medication fentanyl patch bowel regimen PRN for constipation DVT Px: On Coumadin Code Status: Full DNI only Disposition: PT OT evaluation Patient lives at home with son Social service consulted for discharge planning Medicine follow-up with Vital Signs: Date Time Temp Pulse Resp B/P (MAP) Pulse Ox O2 Delivery O2 Flow Rate FiO2 12/08/17 06:58 36.6 82 17 129/77 (94) 96 Nasal Cannula 2.0 12/08/17 04:09 36.8 82 17 121/75 (90) 100 Nasal Cannula 2.0 12/08/17 04:00 98 Nasal Cannula 2.0 12/08/17 00:00 98 Nasal Cannula 2.0 12/07/17 23:54 36.6 79 17 101/63 (76) 97 Nasal Cannula 2.0 12/07/17 20:00 98 Nasal Cannula 2.0 12/07/17 19:44 36.6 85 18 111/72 (85) 98 Nasal Cannula 2.0 12/07/17 16:00 Nasal Cannula 2.0 12/07/17 15:41 36.3 71 20 123/75 (91) 100 Nasal Cannula 2.0 12/07/17 12:00 Nasal Cannula 3.0 12/07/17 12:00 37.1 76 18 91/51 (64) 99 Nasal Cannula 2.0 Lab Results: Results Past 24 Hours Test 12/07/17 17:02 12/08/17 06:06 Range/Units Activated Partial Thromboplast Time 56.6 96.8 21.0-31.0 SECONDS Partial Thromboplastin Ratio 2.2 3.7 White Blood Count 8.80 4.8-10.8 K/uL Red Blood Count 3.32 4.2-5.4 M/uL Hemoglobin 9.7 12.0-16.0 g/dL Hematocrit 31.0 37-47 % Mean Corpuscular Volume 93.4 80-100 fL Mean Corpuscular Hemoglobin 29.2 25-34 pg Mean Corpuscular Hemoglobin Concent 31.3 32-36 g/dl RDW Standard Deviation 51.9 36.4-46.3 fL RDW Coefficient of Variation 15.3 11.5-14.5 % Platelet Count 337 130-400 K/uL Mean Platelet Volume 8.8 7.4-10.4 fL Prothrombin Time 24.7 9.0-12.0 SECONDS Prothromb Time International Ratio 2.4 0.9-1.1 Sodium Level 140 136-145 mmol/L Potassium Level 4.2 3.5-5.1 mmol/L Chloride Level 107 98-107 mmol/L Carbon Dioxide Level 26 21-32 mmol/L Anion Gap 8.0 3-11 mmol/L Blood Urea Nitrogen 19 7-18 mg/dl Creatinine 1.22 0.60-1.20 mg/dl Est Creatinine Clear Calc Drug Dose 28.4 ml/min Estimated GFR () 47.1 Estimated GFR (Non- 40.6 BUN/Creatinine Ratio 15.4 10-20 Random Glucose 90 70-99 mg/dl Calcium Level 9.3 8.5-10.1 mg/dl
[2017-12-08 14:31] LABS: PTT PATIENT 35.4 SECONDS (21.0-31.0)
[2017-12-08] MEDS ORDERED: WARFARIN SOD 3 MG TAB PO SCH (16:00)
[2017-12-08] MEDS: WARFARIN TAB 1 MG, WARFARIN TAB 0.5 MG PO SCH (16:50)
[2017-12-08] MEDS: ONDANSETRON 4 MG TAB PO PRN (19:47)
[2017-12-09] VITALS (7 sets, daily range): BP systolic 97–118; BP diastolic 52–73; PULSE 81–100; TEMP 36.7–36.8; O2SAT 96–99
[2017-12-09] MEDS: CHECK FENTANYL PATCH PLACEMENT SCH ×3 (00:22→15:34)
[2017-12-09] MEDS: MULTIVITAMIN TAB PO SCH (07:45)
[2017-12-09] MEDS: METOPROLOL SUCC 25MG EXT REL TAB PO SCH ×2 (07:45→19:59)
[2017-12-09] MEDS: PANTOprazole SOD 40 MG TAB PO SCH ×2 (07:45→19:53)
[2017-12-09] MEDS: LACTOBACILLUS ACIDOPHILUS (FLORANEX) TAB PO SCH ×3 (07:45→17:15)
[2017-12-09] MEDS: NYSTATIN SUSP 500,000 U/5 ML UDC PO SCH ×4 (07:46→19:48)
[2017-12-09] MEDS: FUROSEMIDE 40 MG TAB PO SCH (07:46)
[2017-12-09] MEDS: CIPROFLOXACIN 250 MG TAB PO SCH (07:46)
[2017-12-09] MEDS: FERROUS SULFATE 325 MG TAB PO SCH ×2 (07:47→19:47)
[2017-12-09] MEDS: PAROXETINE 20 MG TAB PO SCH (07:47)
[2017-12-09] MEDS: MAGNESIUM OXIDE 400 MG TAB PO SCH (07:47)
[2017-12-09] MEDS: FENTANYL PATCH REMOVE & WASTE SCH (07:48)
[2017-12-09] MEDS: GABAPENTIN 100 MG CAP PO SCH (07:48)
[2017-12-09] MEDS: ASCORBIC ACID 500 MG TAB PO SCH (07:48)
[2017-12-09] MEDS: POTASSIUM CHLORIDE 10 MEQ TABCR PO SCH ×2 (07:48→19:47)
[2017-12-09] MEDS: OXYCODONE/ACETAMINOPHEN 5-325 TAB PO PRN ×2 (07:58→15:56)
[2017-12-09] MEDS: FENTANYL 12 MCG/HR TDSY TD SCH (08:37)
[2017-12-09 08:56] LABS: HEMOGLOBIN 10.6 g/dL (12.0-16.0)
[2017-12-09 09:07] LABS: INR 3.2 (0.9-1.1); PTT PATIENT 42.2 SECONDS (21.0-31.0)
[2017-12-09 09:16] LABS: CALCIUM 9.7 mg/dl (8.5-10.1); CREATININE 1.53 mg/dl (0.60-1.20)
[2017-12-09] MEDS: ACETAMINOPHEN 325 MG TAB PO PRN ×2 (15:08→20:19)
[2017-12-09] MEDS: WARFARIN TAB 1 MG, WARFARIN TAB 0.5 MG PO SCH (15:55)
--- NOTE | 2017-12-09 18:15 | Progress Note ---
Internal Med Progress Note Date of Service: December 09, 2017. Provider Documentation: SUBJECTIVE: Seen and examined at bedside weakness is improving Denies chest pain, abd pain, dizziness, nausea Chronic left shoulder pain Diarrhea resolved Family at bedside No other complaints OBJECTIVE: Vital Signs-as noted below Physical Exam: General Appearance:Moderately built and nourished, no apparent distress Head: normocephalic, Atraumatic Eyes: normal inspection, EOMI, PERRL Neck: supple, Trachea midline Respiratory/Chest: Decreased breath sounds, basal crepitations Cardiovascular: S1, S2, No murmur Abdomen/GI:Soft, Non tender, Bowel sounds present Extremities/Musculoskelatal:normal inspection, Trace edema Neurologic/Psych:AAOX3, grossly no focal neurological deficits Skin: normal color, warm Lab data as noted below. ASSESSMENT & PLAN: Fever/Generalized weakness: Rule out Infection Afebrile Leukocytosis resolved Weakness improving PT/OT UTI H/O frequent UTI UA shows positive leukocyte esterase/budding yeast Urine culture: Heather glabrata DC ciprofloxacin Started on Voriconazole Monitor Diarrhea: Resolved Check C. difficile and stool cultures if diarrhea reoccurs DC Cipro Hypomagnesemia: Replace and monitor H/O PE/ Factor V Leiden INR subtherapeutic 1.3>>>2.4>>3.2 DC Heparin ggt Hold Coumadin Monitor INR MYRTLE on CKD III Possibly secondary to dehydration/UTI Baseline creatinine: Mid 1s IV fluids discontinued Monitor renal function Hold Lasix if Cr worsens H/O Chronic diastolic CHF Lasix resumed IV fluids discontinued monitor for volume overload given H/O flash pulmonary edema HTN: Stable continue current meds Hyperlipidemia: On statin Depression/Anxiety disorder: continue Paxil As needed Ativan for anxiety disorder H/O COPD Respiratory status stable/no wheeze Continue as needed neb treatment Home inhalers On 3 L O2 at night chronically Chronic Lower Back Pain: Continue outpatient medication fentanyl patch bowel regimen PRN for constipation DVT Px: On Coumadin Code Status: Full DNI only Disposition: PT OT evaluation Patient lives at home with son Social service consulted for discharge planning Medicine follow-up with Vital Signs: Date Time Temp Pulse Resp B/P (MAP) Pulse Ox O2 Delivery O2 Flow Rate FiO2 12/09/17 16:05 99 Nasal Cannula 2.0 12/09/17 15:39 36.7 91 18 113/67 (82) 99 Nasal Cannula 2.0 12/09/17 11:26 100 96 12/09/17 08:00 Nasal Cannula 2.0 12/09/17 07:33 36.7 81 18 97/62 (74) 97 2.0 12/09/17 00:45 96 Nasal Cannula 2.0 12/09/17 00:42 36.8 86 20 113/73 (86) 96 Nasal Cannula 2.0 12/08/17 20:00 96 Nasal Cannula 2.0 Lab Results: Results Past 24 Hours Test 12/09/17 08:44 Range/Units Hemoglobin 10.6 12.0-16.0 g/dL Hematocrit 32.0 37-47 % Prothrombin Time 33.0 9.0-12.0 SECONDS Prothromb Time International Ratio 3.2 0.9-1.1 Activated Partial Thromboplast Time 42.2 21.0-31.0 SECONDS Partial Thromboplastin Ratio 1.6 Sodium Level 136 136-145 mmol/L Potassium Level 4.0 3.5-5.1 mmol/L Chloride Level 100 98-107 mmol/L Carbon Dioxide Level 29 21-32 mmol/L Anion Gap 6.0 3-11 mmol/L Blood Urea Nitrogen 22 7-18 mg/dl Creatinine 1.53 0.60-1.20 mg/dl Est Creatinine Clear Calc Drug Dose 22.4 ml/min Estimated GFR () 35.8 Estimated GFR (Non- 30.9 BUN/Creatinine Ratio 14.6 10-20 Random Glucose 104 70-99 mg/dl Calcium Level 9.7 8.5-10.1 mg/dl Magnesium Level 1.5 1.8-2.4 mg/dl
[2017-12-09] MEDS: MAGNESIUM SULFATE 1GM / D5W 100 ML IV SCH ×2 (18:36→19:43)
[2017-12-09] MEDS ORDERED: VORICONAZOLE 200 MG TAB PO SCH (20:00)
[2017-12-09] MEDS ORDERED: FLUCONAZOLE 100 MG TAB PO SCH (21:00)
[2017-12-09] MEDS ORDERED: FLUCONAZOLE 100 MG TAB PO ONE (21:00)
[2017-12-10] VITALS (8 sets, daily range): BP systolic 68–155; BP diastolic 46–72; PULSE 58–109; TEMP 36.7–37; O2SAT 95–98
[2017-12-10] MEDS: CHECK FENTANYL PATCH PLACEMENT SCH ×3 (00:15→15:32)
[2017-12-10] MEDS: OXYCODONE/ACETAMINOPHEN 5-325 TAB PO PRN ×2 (05:20→18:44)
[2017-12-10 06:10] LABS: HEMATOCRIT 32.5 % (37-47); HEMOGLOBIN 10.6 g/dL (12.0-16.0); MEAN CELL VOLUME 91.5 fL (80-100); MEAN CORPUSCULAR HEMOGLOBIN 29.9 pg (25-34); MEAN CORPUSCULAR HGB CONC 32.6 g/dl (32-36); PLATELET COUNT 397 K/uL (130-400); RED CELL DISTRIBUTION WIDTH CV 15.2 % (11.5-14.5); RED CELL DISTRIBUTION WIDTH SD 51.5 fL (36.4-46.3); WHITE BLOOD COUNT 9.71 K/uL (4.8-10.8)
[2017-12-10 06:48] LABS: CALCIUM 9.6 mg/dl (8.5-10.1); CREATININE 1.59 mg/dl (0.60-1.20); POTASSIUM 3.8 mmol/L (3.5-5.1)
[2017-12-10 08:15] LABS: INR 3.9 (0.9-1.1)
[2017-12-10 08:16] LABS: PTT PATIENT 50.1 SECONDS (21.0-31.0)
[2017-12-10] MEDS: ONDANSETRON INJ 2 MG/ML 2 ML VIAL IV PRN (08:51)
[2017-12-10] MEDS: ACETAMINOPHEN 325 MG TAB PO PRN (09:19)
[2017-12-10] MEDS: FERROUS SULFATE 325 MG TAB PO SCH ×2 (09:21→21:54)
[2017-12-10] MEDS: LACTOBACILLUS ACIDOPHILUS (FLORANEX) TAB PO SCH ×3 (09:21→17:11)
[2017-12-10] MEDS: POTASSIUM CHLORIDE 10 MEQ TABCR PO SCH ×2 (09:22→21:54)
[2017-12-10] MEDS: MAGNESIUM OXIDE 400 MG TAB PO SCH (09:22)
[2017-12-10] MEDS: NYSTATIN SUSP 500,000 U/5 ML UDC PO SCH ×4 (09:22→21:53)
[2017-12-10] MEDS: PAROXETINE 20 MG TAB PO SCH (09:22)
[2017-12-10] MEDS: MULTIVITAMIN TAB PO SCH (09:22)
[2017-12-10] MEDS: GABAPENTIN 100 MG CAP PO SCH (09:22)
[2017-12-10] MEDS: FUROSEMIDE 40 MG TAB PO SCH (09:22)
[2017-12-10] MEDS: PANTOprazole SOD 40 MG TAB PO SCH ×2 (09:23→21:54)
[2017-12-10] MEDS: METOPROLOL SUCC 25MG EXT REL TAB PO SCH ×2 (09:23→20:00)
[2017-12-10] MEDS: ASCORBIC ACID 500 MG TAB PO SCH (09:23)
--- NOTE | 2017-12-10 12:40 | Progress Note ---
Internal Med Progress Note Date of Service: December 10, 2017. Provider Documentation: SUBJECTIVE: Seen and examined at bedside Reports having a weird dream this morning No other complaints weakness better INR elevated, no bleeding issues Denies chest pain, abd pain, dizziness, nausea Chronic left shoulder pain No Family at bedside OBJECTIVE: Vital Signs-as noted below Physical Exam: General Appearance:Moderately built and nourished, no apparent distress Head: normocephalic, Atraumatic Eyes: normal inspection, EOMI, PERRL Neck: supple, Trachea midline Respiratory/Chest: Decreased breath sounds, basal crepitations Cardiovascular: S1, S2, No murmur Abdomen/GI:Soft, Non tender, Bowel sounds present Extremities/Musculoskelatal:normal inspection, Trace edema Neurologic/Psych:AAOX3, grossly no focal neurological deficits Skin: normal color, warm Lab data as noted below. ASSESSMENT & PLAN: Fever/Generalized weakness: Rule out Infection Blood culture: No growth Urine culture: Heather Afebrile Leukocytosis resolved Weakness improved PT/OT Patient prefers to be discharged home with UTI: ruled out H/O frequent UTI UA shows positive leukocyte esterase/budding yeast Urine culture: Heather glabrata DC ciprofloxacin, Fluconazole Discussed with ID: treatment not required for Heather glabrata unless symptomatic Monitor Diarrhea: Resolved Check C. difficile and stool cultures if diarrhea reoccurs DC Cipro Hypomagnesemia: Replace and monitor H/O PE/ Factor V Leiden INR subtherapeutic 1.3>>>2.4>>3.2>>3.9 DC Heparin ggt Hold Coumadin Monitor INR MYRTLE on CKD III Possibly secondary to dehydration/UTI Baseline creatinine: Mid 1s IV fluids discontinued Monitor renal function Hold Lasix if Cr worsens H/O Chronic diastolic CHF Lasix resumed IV fluids discontinued monitor for volume overload given H/O flash pulmonary edema HTN: Stable continue current meds Hyperlipidemia: On statin Depression/Anxiety disorder: continue Paxil As needed Ativan for anxiety disorder H/O COPD Respiratory status stable/no wheeze Continue as needed neb treatment Home inhalers On 3 L O2 at night chronically Chronic Lower Back Pain: Continue outpatient medication fentanyl patch bowel regimen PRN for constipation DVT Px: INR elevated On Coumadin Code Status: Full DNI only Disposition: Patient refuses rehab placement and prefers to be discharged home with Social service consulted for discharge planning Medicine follow-up with Dr.Mainali Vital Signs: Date Time Temp Pulse Resp B/P (MAP) Pulse Ox O2 Delivery O2 Flow Rate FiO2 12/10/17 08:45 Nasal Cannula 2.0 12/10/17 08:04 36.8 109 22 155/66 (95) 96 Nasal Cannula 2.0 12/10/17 01:11 96 Nasal Cannula 2.0 12/10/17 00:22 36.9 87 16 112/72 (85) 98 2.0 12/09/17 20:02 36.7 91 18 106/63 (77) 99 Nasal Cannula 2.0 12/09/17 16:05 99 Nasal Cannula 2.0 12/09/17 15:39 36.7 91 18 113/67 (82) 99 Nasal Cannula 2.0 Lab Results: Results Past 24 Hours Test 12/10/17 05:29 Range/Units White Blood Count 9.71 4.8-10.8 K/uL Red Blood Count 3.55 4.2-5.4 M/uL Hemoglobin 10.6 12.0-16.0 g/dL Hematocrit 32.5 37-47 % Mean Corpuscular Volume 91.5 80-100 fL Mean Corpuscular Hemoglobin 29.9 25-34 pg Mean Corpuscular Hemoglobin Concent 32.6 32-36 g/dl RDW Standard Deviation 51.5 36.4-46.3 fL RDW Coefficient of Variation 15.2 11.5-14.5 % Platelet Count 397 130-400 K/uL Mean Platelet Volume 9.0 7.4-10.4 fL Prothrombin Time 40.2 9.0-12.0 SECONDS Prothromb Time International Ratio 3.9 0.9-1.1 Activated Partial Thromboplast Time 50.1 21.0-31.0 SECONDS Partial Thromboplastin Ratio 1.9 Sodium Level 135 136-145 mmol/L Potassium Level 3.8 3.5-5.1 mmol/L Chloride Level 100 98-107 mmol/L Carbon Dioxide Level 29 21-32 mmol/L Anion Gap 6.0 3-11 mmol/L Blood Urea Nitrogen 23 7-18 mg/dl Creatinine 1.59 0.60-1.20 mg/dl Est Creatinine Clear Calc Drug Dose 21.9 ml/min Estimated GFR () 34.2 Estimated GFR (Non- 29.5 BUN/Creatinine Ratio 14.2 10-20 Random Glucose 113 70-99 mg/dl Calcium Level 9.6 8.5-10.1 mg/dl Magnesium Level 2.1 1.8-2.4 mg/dl
[2017-12-10] MEDS: ONDANSETRON 4 MG TAB PO PRN (13:28)
[2017-12-10] MEDS ORDERED: SODIUM CHLORIDE 0.9% 1000ML 500 ML IV ONE (15:30)
[2017-12-10] MEDS ORDERED: FLUCONAZOLE 100 MG TAB PO SCH (21:00)
[2017-12-11] MEDS: OXYCODONE/ACETAMINOPHEN 5-325 TAB PO PRN ×2 (04:51→09:23)
[2017-12-11 07:35] VITALS: BP 125/71; PULSE 97; TEMP 36.9; O2SAT 98
[2017-12-11 08:03] VITALS: O2SAT 95
[2017-12-11] MEDS: ACETAMINOPHEN 325 MG TAB PO PRN (08:49)
[2017-12-11] MEDS: CHECK FENTANYL PATCH PLACEMENT SCH ×4 (08:50→23:35)
[2017-12-11] MEDS: NYSTATIN SUSP 500,000 U/5 ML UDC PO SCH ×4 (08:50→20:54)
[2017-12-11] MEDS: FERROUS SULFATE 325 MG TAB PO SCH ×2 (08:50→20:53)
[2017-12-11] MEDS: PANTOprazole SOD 40 MG TAB PO SCH ×2 (08:51→20:54)
[2017-12-11] MEDS: MULTIVITAMIN TAB PO SCH (08:51)
[2017-12-11] MEDS: METOPROLOL SUCC 25MG EXT REL TAB PO SCH ×2 (08:51→20:54)
[2017-12-11] MEDS: LACTOBACILLUS ACIDOPHILUS (FLORANEX) TAB PO SCH ×3 (08:51→17:19)
[2017-12-11] MEDS: MAGNESIUM OXIDE 400 MG TAB PO SCH (08:52)
[2017-12-11] MEDS: ASCORBIC ACID 500 MG TAB PO SCH (08:52)
[2017-12-11] MEDS: FUROSEMIDE 40 MG TAB PO SCH (08:53)
[2017-12-11] MEDS: GABAPENTIN 100 MG CAP PO SCH (08:53)
[2017-12-11] MEDS: PAROXETINE 20 MG TAB PO SCH (08:53)
[2017-12-11] MEDS: POTASSIUM CHLORIDE 10 MEQ TABCR PO SCH ×2 (08:54→20:54)
[2017-12-11] MEDS ORDERED: OXYCODONE/ACETAMINOPHEN 5-325 TAB PO STA (09:07)
[2017-12-11] MEDS ORDERED: NURSING VERBAL MED ORDER ONE (09:15)
[2017-12-11 10:14] LABS: INR 4.9 (0.9-1.1)
[2017-12-11 10:16] LABS: CREATININE 1.85 mg/dl (0.60-1.20)
[2017-12-11 10:17] LABS: PTT PATIENT 59.5 SECONDS (21.0-31.0)
[2017-12-11] MEDS ORDERED: MAGNESIUM SULFATE 1GM / D5W 100 ML IV STA (12:19)
--- NOTE | 2017-12-11 12:47 | Progress Note ---
Internal Med Progress Note Date of Service: December 11, 2017. Provider Documentation: SUBJECTIVE: Seen and examined at bedside Complains of generalized weakness INR elevated, no bleeding issues Denies chest pain, SOB, abd pain, dizziness, nausea Chronic left shoulder pain Discussed with Son in detail about patient's condition OBJECTIVE: Vital Signs-as noted below Physical Exam: General Appearance:Moderately built and nourished, no apparent distress Head: normocephalic, Atraumatic Eyes: normal inspection, EOMI, PERRL Neck: supple, Trachea midline Respiratory/Chest: Decreased breath sounds, basal crepitations Cardiovascular: S1, S2, No murmur Abdomen/GI:Soft, Non tender, Bowel sounds present Extremities/Musculoskelatal:normal inspection, Trace edema Neurologic/Psych:AAOX3, grossly no focal neurological deficits Skin: normal color, warm Lab data as noted below. ASSESSMENT & PLAN: Fever/Generalized weakness: Rule out Infection Blood culture: No growth Urine culture: Heather Afebrile Leukocytosis resolved Weakness improved PT/OT Patient prefers to be discharged home with HH UTI: ruled out H/O frequent UTI UA shows positive leukocyte esterase/budding yeast Urine culture: Heather glabrata DC ciprofloxacin, Fluconazole Discussed with ID: treatment not required for Heather glabrata unless symptomatic Monitor Diarrhea: Resolved Check C. difficile and stool cultures if diarrhea reoccurs DC Cipro Hypomagnesemia: Replace and monitor H/O PE/ Factor V Leiden INR subtherapeutic 1.3>>>2.4>>3.2>>3.9>>4.9 DC Heparin ggt Hold Coumadin Monitor INR No active bleeding MYRTLE on CKD III Possibly secondary to dehydration/UTI Baseline creatinine: Mid 1s Monitor renal function Hold Lasix as Cr worsening agaian Cautious use of IVF given H/O CHF H/O Chronic diastolic CHF Lasix held secondary to MYRTLE monitor for volume overload given H/O flash pulmonary edema HTN: Stable continue current meds Hyperlipidemia: On statin Depression/Anxiety disorder: continue Paxil As needed Ativan for anxiety disorder H/O COPD Respiratory status stable/no wheeze Continue as needed neb treatment Home inhalers On 3 L O2 at night chronically Chronic Lower Back Pain: Continue outpatient medication fentanyl patch bowel regimen PRN for constipation DVT Px: INR elevated On Coumadin Code Status: Full DNI only Disposition: Patient refuses rehab placement and prefers to be discharged home with HH Discussed with Patient's Son in detail Social service consulted for discharge planning Medicine follow-up with Vital Signs: Date Time Temp Pulse Resp B/P (MAP) Pulse Ox O2 Delivery O2 Flow Rate FiO2 12/11/17 08:03 95 Nasal Cannula 2.0 12/11/17 07:35 36.9 97 16 125/71 (89) 98 Nasal Cannula 2.0 12/11/17 00:50 Nasal Cannula 2.0 12/10/17 23:04 36.7 84 16 111/66 (81) 97 Nasal Cannula 2.0 12/10/17 21:55 58 12/10/17 17:10 69 152/61 (91) 12/10/17 16:09 95 Nasal Cannula 2.0 12/10/17 15:59 37.0 96 18 70/46 (54) 95 68/48 (55) Lab Results: Results Past 24 Hours Test 12/11/17 09:42 Range/Units Prothrombin Time 49.5 9.0-12.0 SECONDS Prothromb Time International Ratio 4.9 0.9-1.1 Activated Partial Thromboplast Time 59.5 21.0-31.0 SECONDS Partial Thromboplastin Ratio 2.3 Sodium Level 134 136-145 mmol/L Potassium Level 4.0 3.5-5.1 mmol/L Chloride Level 100 98-107 mmol/L Carbon Dioxide Level 26 21-32 mmol/L Anion Gap 8.0 3-11 mmol/L Blood Urea Nitrogen 31 7-18 mg/dl Creatinine 1.85 0.60-1.20 mg/dl Est Creatinine Clear Calc Drug Dose 18.6 ml/min Estimated GFR () 28.5 Estimated GFR (Non- 24.6 BUN/Creatinine Ratio 16.9 10-20 Random Glucose 123 70-99 mg/dl Calcium Level 10.0 8.5-10.1 mg/dl Magnesium Level 1.7 1.8-2.4 mg/dl
[2017-12-11] MEDS: ONDANSETRON INJ 2 MG/ML 2 ML VIAL IV PRN ×2 (13:21→19:09)
[2017-12-11 15:50] VITALS: BP 106/69; PULSE 94; TEMP 37.1; O2SAT 98
[2017-12-11] MEDS: LORAZEPAM 0.5 MG TAB PO PRN (23:35)
[2017-12-12 00:11] VITALS: O2SAT 95
[2017-12-12 00:38] VITALS: BP 112/66; PULSE 98; TEMP 36.7; O2SAT 98
[2017-12-12 07:15] VITALS: BP 152/81; PULSE 95; TEMP 37.1; O2SAT 96
[2017-12-12 07:54] LABS: HEMATOCRIT 28.9 % (37-47); HEMOGLOBIN 9.2 g/dL (12.0-16.0); MEAN CORPUSCULAR HEMOGLOBIN 28.7 pg (25-34); MEAN CORPUSCULAR HGB CONC 31.8 g/dl (32-36); MEAN PLATELET VOLUME 9.4 fL (7.4-10.4); PLATELET COUNT 420 K/uL (130-400); RED CELL DISTRIBUTION WIDTH SD 49.7 fL (36.4-46.3); WHITE BLOOD COUNT 12.37 K/uL (4.8-10.8)
[2017-12-12] MEDS: FERROUS SULFATE 325 MG TAB PO SCH ×2 (08:00→20:18)
[2017-12-12] MEDS: NYSTATIN SUSP 500,000 U/5 ML UDC PO SCH ×4 (08:00→20:18)
[2017-12-12] MEDS: POTASSIUM CHLORIDE 10 MEQ TABCR PO SCH ×2 (08:00→20:00)
[2017-12-12] MEDS: MULTIVITAMIN TAB PO SCH (08:00)
[2017-12-12] MEDS: LACTOBACILLUS ACIDOPHILUS (FLORANEX) TAB PO SCH ×3 (08:00→17:05)
[2017-12-12] MEDS: MAGNESIUM OXIDE 400 MG TAB PO SCH (08:00)
[2017-12-12] MEDS: ASCORBIC ACID 500 MG TAB PO SCH (08:00)
[2017-12-12 08:01] VITALS: O2SAT 95
[2017-12-12] MEDS: CHECK FENTANYL PATCH PLACEMENT SCH ×2 (08:17→15:32)
[2017-12-12 08:19] LABS: PTT PATIENT 62.9 SECONDS (21.0-31.0)
[2017-12-12] MEDS: OXYCODONE/ACETAMINOPHEN 5-325 TAB PO PRN ×2 (08:19→17:05)
[2017-12-12] MEDS: PAROXETINE 20 MG TAB PO SCH (08:20)
[2017-12-12] MEDS: FENTANYL PATCH REMOVE & WASTE SCH (08:21)
[2017-12-12] MEDS: FENTANYL 12 MCG/HR TDSY TD SCH (08:22)
[2017-12-12] MEDS: GABAPENTIN 100 MG CAP PO SCH (08:22)
[2017-12-12] MEDS: METOPROLOL SUCC 25MG EXT REL TAB PO SCH ×2 (08:24→20:00)
[2017-12-12] MEDS: PANTOprazole SOD 40 MG TAB PO SCH ×2 (08:25→20:18)
[2017-12-12] MEDS: ONDANSETRON 4 MG TAB PO PRN (08:30)
[2017-12-12 08:38] LABS: CALCIUM 9.6 mg/dl (8.5-10.1); CREATININE 1.6 mg/dl (0.60-1.20); POTASSIUM 3.8 mmol/L (3.5-5.1)
[2017-12-12 09:40] LABS: INR 4.4 (0.9-1.1)
--- NOTE | 2017-12-12 13:26 | Progress Note ---
Internal Med Progress Note Date of Service: December 12, 2017. Provider Documentation: SUBJECTIVE: Seen and examined at bedside Reports mild pain with swallowing Has been refusing Nystatin intermittently Reports generalized weakness INR trending down, no bleeding issues Reports not being able to sleep well overnight Denies SOB, abd pain, dizziness, nausea No family at bedside OBJECTIVE: Vital Signs-as noted below Physical Exam: General Appearance:Moderately built and nourished, no apparent distress Head: normocephalic, Atraumatic Eyes: normal inspection, EOMI, PERRL Neck: supple, Trachea midline Respiratory/Chest: Decreased breath sounds, basal crepitations Cardiovascular: S1, S2, No murmur Abdomen/GI:Soft, Non tender, Bowel sounds present Extremities/Musculoskelatal:normal inspection, Trace edema Neurologic/Psych:AAOX3, grossly no focal neurological deficits Skin: normal color, warm Lab data as noted below. ASSESSMENT & PLAN: Fever/Generalized weakness: Rule out Infection Blood culture: No growth Urine culture: Heather Afebrile Leukocytosis resolved Weakness slowly improving PT/OT Patient prefers to be discharged home with HH Son plans to discuss with patient regarding rehab placement UTI: ruled out H/O frequent UTI UA shows positive leukocyte esterase/budding yeast Urine culture: Heather glabrata DC ciprofloxacin, Fluconazole Discussed with ID: treatment not required for Heather glabrata unless symptomatic Monitor Diarrhea: Resolved Check C. difficile and stool cultures if diarrhea reoccurs DC Cipro Hypomagnesemia: Replace and monitor H/O PE/ Factor V Leiden INR subtherapeutic 1.3>>>2.4>>3.2>>3.9>>4.9>>4.4 DC Heparin ggt Hold Coumadin Monitor INR No active bleeding MYRTLE on CKD III Possibly secondary to dehydration/UTI Baseline creatinine: Mid 1s Monitor renal function Hold Lasix for now Cr improving, encourage PO intake Cautious use of IVF given H/O CHF H/O Chronic diastolic CHF Lasix held secondary to MYRTLE monitor for volume overload given H/O flash pulmonary edema HTN: Stable continue current meds Hyperlipidemia: On statin Depression/Anxiety disorder: continue Paxil As needed Ativan for anxiety disorder H/O COPD Respiratory status stable/no wheeze Continue as needed neb treatment Home inhalers On 3 L O2 at night chronically Chronic Lower Back Pain: Continue outpatient medication fentanyl patch bowel regimen PRN for constipation DVT Px: INR elevated On Coumadin Code Status: Full DNI only Disposition: Patient refuses rehab placement and prefers to be discharged home with Patient's Son would like to convince patient to go to rehab facility Social service consulted for discharge planning Medicine follow-up with Vital Signs: Date Time Temp Pulse Resp B/P (MAP) Pulse Ox O2 Delivery O2 Flow Rate FiO2 12/12/17 08:01 95 Nasal Cannula 2.0 12/12/17 07:15 37.1 95 16 152/81 (104) 96 Nasal Cannula 2.0 12/12/17 00:38 36.7 98 20 112/66 (81) 98 2.0 12/12/17 00:11 95 Nasal Cannula 2.0 12/11/17 15:50 37.1 94 20 106/69 (81) 98 Nasal Cannula 2.0 Lab Results: Results Past 24 Hours Test 12/12/17 07:00 Range/Units White Blood Count 12.37 4.8-10.8 K/uL Red Blood Count 3.21 4.2-5.4 M/uL Hemoglobin 9.2 12.0-16.0 g/dL Hematocrit 28.9 37-47 % Mean Corpuscular Volume 90.0 80-100 fL Mean Corpuscular Hemoglobin 28.7 25-34 pg Mean Corpuscular Hemoglobin Concent 31.8 32-36 g/dl RDW Standard Deviation 49.7 36.4-46.3 fL RDW Coefficient of Variation 15.0 11.5-14.5 % Platelet Count 420 130-400 K/uL Mean Platelet Volume 9.4 7.4-10.4 fL Prothrombin Time 44.4 9.0-12.0 SECONDS Prothromb Time International Ratio 4.4 0.9-1.1 Activated Partial Thromboplast Time 62.9 21.0-31.0 SECONDS Partial Thromboplastin Ratio 2.4 Sodium Level 135 136-145 mmol/L Potassium Level 3.8 3.5-5.1 mmol/L Chloride Level 101 98-107 mmol/L Carbon Dioxide Level 28 21-32 mmol/L Anion Gap 6.0 3-11 mmol/L Blood Urea Nitrogen 30 7-18 mg/dl Creatinine 1.60 0.60-1.20 mg/dl Est Creatinine Clear Calc Drug Dose 21.5 ml/min Estimated GFR () 33.9 Estimated GFR (Non- 29.3 BUN/Creatinine Ratio 18.9 10-20 Random Glucose 99 70-99 mg/dl Calcium Level 9.6 8.5-10.1 mg/dl Magnesium Level 1.9 1.8-2.4 mg/dl Troponin I 0.030 0-0.045 ng/ml
[2017-12-12 15:50] VITALS: BP 112/75; PULSE 96; TEMP 36.9; O2SAT 94
[2017-12-12 20:14] VITALS: BP 109/64; PULSE 94
[2017-12-12] MEDS: LORAZEPAM 0.5 MG TAB PO PRN (20:22)
[2017-12-12 20:25] LABS: HEMOGLOBIN 9.3 g/dL (12.0-16.0)
[2017-12-13] VITALS: O2SAT 95
[2017-12-13] MEDS: CHECK FENTANYL PATCH PLACEMENT SCH ×4 (00:02→23:51)
[2017-12-13 07:02] VITALS: BP 127/80; PULSE 119; TEMP 38.8; O2SAT 93
[2017-12-13 07:03] LABS: BASO % 0.3 %; BASO ABS # 0.06 K/uL (0-0.2); EOS % 0.7 %; EOS ABS # 0.14 K/uL (0-0.5); HEMATOCRIT 32.8 % (37-47); HEMOGLOBIN 10.5 g/dL (12.0-16.0); IG# 0.07 K/uL (0.00-0.02); LYMPH % 6.9 %; LYMPH ABS # 1.29 K/uL (1.2-3.4); MEAN CELL VOLUME 90.6 fL (80-100); MEAN PLATELET VOLUME 8.8 fL (7.4-10.4); MONO % 7.7 %; MONO ABS # 1.45 K/uL (0.11-0.59); NEUT ABS # 15.73 K/uL (1.4-6.5); NUCLEATED RED BLOOD CELL ABS 0.02 K/uL (0-0); PLATELET COUNT 463 K/uL (130-400); RED CELL DISTRIBUTION WIDTH CV 15.2 % (11.5-14.5); RED CELL DISTRIBUTION WIDTH SD 50.5 fL (36.4-46.3); WHITE BLOOD COUNT 18.74 K/uL (4.8-10.8)
[2017-12-13] MEDS: ACETAMINOPHEN 325 MG TAB PO PRN (07:04)
[2017-12-13] MEDS: FERROUS SULFATE 325 MG TAB PO SCH ×2 (07:04→19:55)
[2017-12-13] MEDS: MAGNESIUM OXIDE 400 MG TAB PO SCH (07:05)
[2017-12-13] MEDS: PAROXETINE 20 MG TAB PO SCH (07:05)
[2017-12-13] MEDS: MULTIVITAMIN TAB PO SCH (07:05)
[2017-12-13] MEDS: POTASSIUM CHLORIDE 10 MEQ TABCR PO SCH ×2 (07:05→19:57)
[2017-12-13] MEDS: GABAPENTIN 100 MG CAP PO SCH (07:05)
[2017-12-13] MEDS: LACTOBACILLUS ACIDOPHILUS (FLORANEX) TAB PO SCH ×3 (07:06→17:30)
[2017-12-13] MEDS: PANTOprazole SOD 40 MG TAB PO SCH ×2 (07:06→19:54)
[2017-12-13] MEDS: ASCORBIC ACID 500 MG TAB PO SCH (07:06)
[2017-12-13] MEDS: NYSTATIN SUSP 500,000 U/5 ML UDC PO SCH ×4 (07:06→19:55)
[2017-12-13] MEDS: METOPROLOL SUCC 25MG EXT REL TAB PO SCH ×2 (07:07→19:53)
[2017-12-13 07:20] LABS: CALCIUM 10.5 mg/dl (8.5-10.1); CREATININE 1.56 mg/dl (0.60-1.20); POTASSIUM 4.1 mmol/L (3.5-5.1)
[2017-12-13 07:22] LABS: INR 4.4 (0.9-1.1)
[2017-12-13] MEDS ORDERED: MoRPHine SULFATE 4 MG/ML 1 ML CARP\\VIAL IV PRN (07:45)
--- NOTE | 2017-12-13 08:14 | DIAGNOSTIC IMAGING REPORT ---
CHEST ONE VIEW PORTABLE HISTORY: Atypical chest pain COMPARISON: Chest 12/06/2017. FINDINGS: Old, healed left lateral rib fractures. Coarse interstitial markings are again noted. No pneumothorax. Bibasilar linear densities have improved. Large hiatus hernia is again noted. The heart is stable in size. Aortic valve prosthesis and IVC filter are again noted. The patient is slightly rotated on this study. IMPRESSION: Chronic changes as described above. No acute process within the chest. Electronically signed by: Nirav Varma M.D. 12/13/2017 8:13 AM Dictated Date/Time: 12/13/2017 8:11 AM
[2017-12-13 08:47] VITALS: TEMP 36.8
--- NOTE | 2017-12-13 09:33 | DIAGNOSTIC IMAGING REPORT ---
ABDOMEN AND PELVIS CT WITHOUT CONTRAST CT DOSE: 549.93 mGy.cm HISTORY: Generalized abdominal pain. Fever. Dehydration. TECHNIQUE: Multiaxial CT images of the abdomen and pelvis were performed without contrast. A dose lowering technique was utilized adhering to the principles of ALARA. COMPARISON STUDY: Abdomen and pelvis CT 05/07/2017. FINDINGS: There is again noted a large hiatus hernia. Patchy airspace opacities within the right lung base which have a slightly nodular component. Dominant nodular area within the right middle lobe measures 2.6 cm. This likely represents a pneumonia. There are few linear densities at the left lung base which are similar to the prior study and may represent atelectasis. No pneumoperitoneum. No pneumatosis. Levoscoliosis. No suspicious lytic or blastic osseous lesions. Aortic valve prosthesis is noted. There is mild pelvic floor collapse. The bladder is mildly distended. The uterus is surgically absent. No pelvic free fluid. Soft tissue thickening surrounding the coccyx. No erosive changes identified this time to suggest osteomyelitis. This remains unchanged and may represent a sacral decubitus ulcer. The unenhanced liver, spleen, adrenal glands, and pancreas remain unchanged. Small amount of hyperdense material within the gallbladder could represent sludge or stones. IVC filter is noted. No retroperitoneal lymphadenopathy. There is an ectatic abdominal aorta. The bladder is mildly distended, unchanged. Suboptimal evaluation for bowel pathology due to the lack of intravenous and oral contrast. No definite bowel wall thickening or obstruction. Moderate stool within the colon. Questionable thickening at the hepatic flexure of the colon and proximal transverse colon is likely due to underdistention. No evidence for bowel obstruction. Mild fat stranding anterior to the bladder. IMPRESSION: 1. Patchy and nodular airspace opacities within the right lung base. This likely represents a pneumonia. Recommend follow-up chest CT in 2-3 months to ensure resolution. 2. No definite bowel wall thickening or obstruction. Questionable thickening at the hepatic flexure of the colon and proximal transverse colon is likely due to underdistention. 3. Mild fat stranding anterior to the bladder. This may be chronic or related to a cystitis. Recommend correlation with urinalysis. 4. Moderate stool within the colon. 5. Suggestion of sludge versus small stones within the gallbladder. 6. Large hiatus hernia, unchanged. 7. Additional findings as described above. Electronically signed by: Nirav Varma M.D. 12/13/2017 9:32 AM Dictated Date/Time: 12/13/2017 9:21 AM
[2017-12-13] MEDS ORDERED: CONSULT PHARMACY STA (10:08)
[2017-12-13] MEDS ORDERED: PIPERACILL/TAZOBAC IV 3.375 GM in D5W 100 ML IV ONE (10:45)
[2017-12-13] MEDS ORDERED: VANCOMYCIN CONSULT ACTIVE PRN (11:00)
[2017-12-13] MEDS ORDERED: PIPERACILL/TAZOBAC CONSULT ACTIVE PRN (11:00)
[2017-12-13] MEDS ORDERED: VANCOMYCIN IV 1,250 MG in SODIUM CHLORIDE 0.9% 250ML 250 ML IV ONE (11:15)
--- NOTE | 2017-12-13 14:24 | Pharmacy Progress Note ---
Pharmacy Abx Dose Short Note Date of Service December 13, 2017. Assessment & Plan Assessment * 82 year old female admitted on 12/06/17 for fever, dehydration, possible UTI * Patient was treated with Cipro and Fluconazole for presumed UTI * Today VANCOMYCIN + ZOSYN therapy initiated for fever, leukocytosis, elevated procalcitonin, and concern for pneumonia (HAP) on CT * Patient's O2 Sat was drifting lower this AM and she was slightly tachycardic, no hypotension noted * BLCX's ordered * Will order MRSA nasal swab * Renal fxn has been stable, but SCr is resting slightly higher than her prior baseline of ~1.2 Plan Vancomycin * Loading dose: 1250mg x 1 (~21mg/kg) * Maint dose: 1000mg (~17mg/kg) IV Q 30 hours * Prior admission data reviewed and it appeared that she requires a dosing interval > 24 hours with similar renal fxn * Goal trough level for sepsis, pulm infxn : 15 to 20 mcg/mL * Will check trough level w/ 2nd maintenance dose given extended dosing interval in order to prevent over- or under-dosing for prolonged time period Zosyn * eCrCl > 20cc/min (20-25cc/min); BMI < 35; 3.375gm 30min infusion followed by 3.375 ext-infusion Q 8 hours Pharmacy will continue to follow and will adjust dose/frequency as necessary. Thank you.
--- NOTE | 2017-12-13 14:55 | Progress Note ---
Internal Med Progress Note Date of Service: December 13, 2017. Provider Documentation: SUBJECTIVE: Seen and examined at bedside Had severe abdominal pain earlier today Currently Sleeping comfortably CT scan suggestive of R lung basal Pneumonia Reports generalized weakness Denies SOB, chest pain, dizziness Discussed with Patient's Son in detail OBJECTIVE: Vital Signs-as noted below Physical Exam: General Appearance:Moderately built and nourished, no apparent distress Head: normocephalic, Atraumatic Eyes: normal inspection, EOMI, PERRL Neck: supple, Trachea midline Respiratory/Chest: Decreased breath sounds, basal crepitations Cardiovascular: S1, S2, No murmur Abdomen/GI:Soft, Non tender, Bowel sounds present Extremities/Musculoskelatal:normal inspection, Trace edema Neurologic/Psych:AAOX3, grossly no focal neurological deficits Skin: normal color, warm Lab data as noted below. ASSESSMENT & PLAN: HCAP: CT :suggestive of Right lung basal Opacity suggestive of Pneumonia Recurrent Fever Initial Blood culture: No growth Urine culture: Heather Repeat Blood culture: Pending Started on IV Vanco and Zosyn Day # 1 Elevated Procalcitonin Abdominal Pain: Likely secondary to constipation Minimize pain meds Continue bowel regimen UTI: ruled out H/O frequent UTI UA shows positive leukocyte esterase/budding yeast Urine culture: Heather glabrata DC ciprofloxacin, Fluconazole Discussed with ID: treatment not required for Heather glabrata unless symptomatic Monitor Diarrhea: Resolved Check C. difficile and stool cultures if diarrhea reoccurs DC Cipro Hypomagnesemia: Replace and monitor H/O PE/ Factor V Leiden INR subtherapeutic 1.3>>>2.4>>3.2>>3.9>>4.9>>4.4 DC Heparin ggt Hold Coumadin Monitor INR No active bleeding MYRTLE on CKD III Possibly secondary to dehydration/UTI Baseline creatinine: Mid 1s Monitor renal function Hold Lasix for now Cr improving, encourage PO intake Cautious use of IVF given H/O CHF H/O Chronic diastolic CHF Lasix held secondary to MYRTLE monitor for volume overload given H/O flash pulmonary edema HTN: Stable continue current meds Hyperlipidemia: On statin Depression/Anxiety disorder: continue Paxil As needed Ativan for anxiety disorder H/O COPD Respiratory status stable/no wheeze Continue as needed neb treatment Home inhalers On 3 L O2 at night chronically Chronic Lower Back Pain: Continue outpatient medication fentanyl patch bowel regimen PRN for constipation DVT Px: INR elevated On Coumadin Code Status: Full DNI only Disposition: Patient refuses rehab placement and prefers to be discharged home with HH Patient's Son would like to convince patient to go to rehab facility Social service consulted for discharge planning Medicine follow-up with Vital Signs: Date Time Temp Pulse Resp B/P (MAP) Pulse Ox O2 Delivery O2 Flow Rate FiO2 12/13/17 08:47 36.8 12/13/17 08:00 Nasal Cannula 2.0 12/13/17 07:02 38.8 119 24 127/80 (96) 93 2.0 12/13/17 00:00 95 Nasal Cannula 2.0 12/12/17 20:14 94 109/64 (79) 12/12/17 16:00 Nasal Cannula 2.0 12/12/17 15:50 36.9 96 20 112/75 (87) 94 Room Air Lab Results: Results Past 24 Hours Test 12/12/17 20:12 12/13/17 06:49 12/13/17 08:12 12/13/17 11:17 Range/Units Hemoglobin 9.3 10.5 12.0-16.0 g/dL Hematocrit 29.0 32.8 37-47 % White Blood Count 18.74 4.8-10.8 K/uL Red Blood Count 3.62 4.2-5.4 M/uL Mean Corpuscular Volume 90.6 80-100 fL Mean Corpuscular Hemoglobin 29.0 25-34 pg Mean Corpuscular Hemoglobin Concent 32.0 32-36 g/dl Platelet Count 463 130-400 K/uL Mean Platelet Volume 8.8 7.4-10.4 fL Neutrophils (%) (Auto) 84.0 % Lymphocytes (%) (Auto) 6.9 % Monocytes (%) (Auto) 7.7 % Eosinophils (%) (Auto) 0.7 % Basophils (%) (Auto) 0.3 % Neutrophils # (Auto) 15.73 1.4-6.5 K/uL Lymphocytes # (Auto) 1.29 1.2-3.4 K/uL Monocytes # (Auto) 1.45 0.11-0.59 K/uL Eosinophils # (Auto) 0.14 0-0.5 K/uL Basophils # (Auto) 0.06 0-0.2 K/uL RDW Standard Deviation 50.5 36.4-46.3 fL RDW Coefficient of Variation 15.2 11.5-14.5 % Immature Granulocyte % (Auto) 0.4 % Immature Granulocyte # (Auto) 0.07 0.00-0.02 K/uL Nucleated RBC Absolute Count (auto) 0.02 0-0 K/uL Nucleated Red Blood Cells % 0.1 % Prothrombin Time 45.1 9.0-12.0 SECONDS Prothromb Time International Ratio 4.4 0.9-1.1 Sodium Level 138 136-145 mmol/L Potassium Level 4.1 3.5-5.1 mmol/L Chloride Level 102 98-107 mmol/L Carbon Dioxide Level 29 21-32 mmol/L Anion Gap 7.0 3-11 mmol/L Blood Urea Nitrogen 27 7-18 mg/dl Creatinine 1.56 0.60-1.20 mg/dl Est Creatinine Clear Calc Drug Dose 22.1 ml/min Estimated GFR () 35.0 Estimated GFR (Non- 30.2 BUN/Creatinine Ratio 17.5 10-20 Random Glucose 147 70-99 mg/dl Calcium Level 10.5 8.5-10.1 mg/dl Lactic Acid Level 1.7 0.4-2.0 mmol/L Procalcitonin 4.35 0-0.5 ng/ml Urine Color YELLOW Urine Appearance CLOUDY CLEAR Urine pH 5.5 4.5-7.5 Urine Specific [place] 1.015 1.000-1.030 Urine Protein NEG NEG Urine Glucose (UA) NEG NEG Urine Ketones NEG NEG Urine Occult Blood 1+ NEG Urine Nitrite NEG NEG Urine Bilirubin NEG NEG Urine Urobilinogen NEG NEG Urine Leukocyte Esterase LARGE NEG Urine WBC (Auto) >30 0-5 /hpf Urine RBC (Auto) 0-4 0-4 /hpf Urine Hyaline Casts (Auto) 1-5 0-5 /lpf Urine Epithelial Cells (Auto) 10-20 0-5 /lpf Urine Bacteria (Auto) NEG NEG Urine Yeast (Auto) PRESENT NONE PRSENT Microbiology Results 12/13/17 Blood Culture, Received Pending 12/13/17 Blood Culture, Received Pending 12/13/17 Urine Culture, Received Pending
[2017-12-13 15:04] VITALS: BP 96/63; PULSE 80; TEMP 36.8; O2SAT 98
[2017-12-13] MEDS: PIPERACILL/TAZOBAC IV 3.375 GM in D5W 100ML IV SCH ×2 (15:51→23:51)
[2017-12-13] MEDS: OXYCODONE/ACETAMINOPHEN 5-325 TAB PO PRN (19:51)
[2017-12-13 19:52] VITALS: BP 105/65; PULSE 86
[2017-12-13] MEDS: LORAZEPAM 0.5 MG TAB PO PRN (22:10)
[2017-12-13 23:50] VITALS: BP 115/70; PULSE 97; TEMP 36.7; O2SAT 97
[2017-12-14] MEDS: OXYCODONE/ACETAMINOPHEN 5-325 TAB PO PRN ×2 (04:19→15:19)
[2017-12-14 07:04] LABS: BASO % 0.5 %; BASO ABS # 0.05 K/uL (0-0.2); EOS % 2.7 %; EOS ABS # 0.27 K/uL (0-0.5); HEMATOCRIT 30.1 % (37-47); HEMOGLOBIN 9.5 g/dL (12.0-16.0); IG# 0.05 K/uL (0.00-0.02); LYMPH ABS # 1.38 K/uL (1.2-3.4); MEAN CELL VOLUME 91.2 fL (80-100); MEAN CORPUSCULAR HEMOGLOBIN 28.8 pg (25-34); MEAN CORPUSCULAR HGB CONC 31.6 g/dl (32-36); MEAN PLATELET VOLUME 9.1 fL (7.4-10.4); MONO % 12.1 %; MONO ABS # 1.19 K/uL (0.11-0.59); NEUT % 70.2 %; NEUT ABS # 6.92 K/uL (1.4-6.5); PLATELET COUNT 433 K/uL (130-400); RED CELL DISTRIBUTION WIDTH CV 15.3 % (11.5-14.5); RED CELL DISTRIBUTION WIDTH SD 51.5 fL (36.4-46.3); WHITE BLOOD COUNT 9.86 K/uL (4.8-10.8)
[2017-12-14 07:20] VITALS: BP 97/60; PULSE 84; TEMP 36.7; O2SAT 99
[2017-12-14] MEDS: METOPROLOL SUCC 25MG EXT REL TAB PO SCH ×2 (07:24→20:19)
[2017-12-14 07:26] LABS: CALCIUM 9.4 mg/dl (8.5-10.1); CREATININE 1.82 mg/dl (0.60-1.20); POTASSIUM 3.7 mmol/L (3.5-5.1)
[2017-12-14 07:33] LABS: INR 4.5 (0.9-1.1)
[2017-12-14] MEDS: CHECK FENTANYL PATCH PLACEMENT SCH ×3 (08:06→23:31)
[2017-12-14] MEDS: PIPERACILL/TAZOBAC IV 3.375 GM in D5W 100ML IV SCH ×2 (08:08→20:17)
[2017-12-14] MEDS: MULTIVITAMIN TAB PO SCH (08:08)
[2017-12-14] MEDS: NYSTATIN SUSP 500,000 U/5 ML UDC PO SCH ×4 (08:08→20:18)
[2017-12-14] MEDS: PANTOprazole SOD 40 MG TAB PO SCH ×2 (08:09→20:19)
[2017-12-14] MEDS: GABAPENTIN 100 MG CAP PO SCH (08:09)
[2017-12-14] MEDS: ASCORBIC ACID 500 MG TAB PO SCH (08:09)
[2017-12-14] MEDS: PAROXETINE 20 MG TAB PO SCH (08:09)
[2017-12-14] MEDS: MAGNESIUM OXIDE 400 MG TAB PO SCH (08:09)
[2017-12-14] MEDS: FERROUS SULFATE 325 MG TAB PO SCH ×2 (08:10→20:18)
[2017-12-14] MEDS: LACTOBACILLUS ACIDOPHILUS (FLORANEX) TAB PO SCH ×3 (08:10→17:01)
[2017-12-14] MEDS: POTASSIUM CHLORIDE 10 MEQ TABCR PO SCH ×2 (08:10→20:17)
--- NOTE | 2017-12-14 10:26 | Pharmacy Progress Note ---
Pharmacy Abx Dose Short Note Date of Service December 14, 2017. Assessment & Plan Assessment * 82 year old female admitted on 12/06/17 for fever, dehydration, possible UTI * Patient was treated with Cipro and Fluconazole for presumed UTI * VANCOMYCIN + ZOSYN therapy initiated yesterday for fever, leukocytosis, elevated procalcitonin, and concern for pneumonia (HAP) on CT * MRSA nasal swab noted to be positive * Renal fxn has significantly bumped today, increased from 1.56 yesterday, with noted baseline of ~1.2 * Will increase dosing interval given increase in scr and will order level before tomorrows dose, noting this will not be indicative of a true trough, and I suspect dosing regimen will need to be assessed/altered daily in period of MYRTLE. Plan Vancomycin * Loading dose: 1250mg x 1 (~21mg/kg) given 12/13 @~1100 * Maint dose: Change to 1000mg (~17mg/kg) IV Q 44 hours starting 12/15 @0600 * Prior admission data reviewed and it appeared that she requires a dosing interval > 24 hours with similar renal fxn * Goal trough level for sepsis, pulm infxn : 15 to 20 mcg/mL * Will check trough tomorrow (12/15) @ 0530. Zosyn * eCrCl < 20cc/min (18.9 cc/min); BMI < 35; change to 3.375 ext-infusion Q 12 hours Pharmacy will continue to follow and will adjust dose/frequency as necessary. Thank you.
--- NOTE | 2017-12-14 12:16 | Progress Note ---
Internal Med Progress Note Date of Service: December 14, 2017. Provider Documentation: SUBJECTIVE: The patient was seen and examined in medical floor. She has multiple medical comorbid conditions as mentioned below. She was admitted with the generalized weakness and fever Secondary to UTI and now has pneumonia Complains to have some pain in the left shoulder and generally very weak Denies any other complaints OBJECTIVE: Vital Signs-as noted below Exam: General-no distress at rest Eyes-normal ENT-normal Neck-supple Lungs-coarse crackles bilaterally at the bases, more on the right than the left Heart-regular Abdomen-soft, benign, no organomegaly, bowel sounds present Extremities-trace edema bilaterally Examination of the left shoulder did not show any swelling but movements were moderately painful in all directions Neuro-alert and awake Generally very weak and lethargic Lab data as noted below. ASSESSMENT & PLAN: HCAP: CT :suggestive of Right lung basal Opacity suggestive of Pneumonia Recurrent Fever Initial Blood culture: No growth Urine culture: Heather Repeat Blood culture: Pending Started on IV Vanco and Zosyn Day # 2 Elevated Procalcitonin Clinically better today Continue current antibiotic regimen for now Will deescalate the antibiotic Abdominal Pain: CT Abdomen and Pelvis::1. Patchy and nodular airspace opacities within the right lung base. This likely represents a pneumonia. Recommend follow-up chest CT in 2-3 months to ensure resolution. 2. No definite bowel wall thickening or obstruction. Questionable thickening at the hepatic flexure of the colon and proximal transverse colon is likely due to underdistention. 3. Mild fat stranding anterior to the bladder. This may be chronic or related to a cystitis. Recommend correlation with urinalysis. 4. Moderate stool within the colon. 5. Suggestion of sludge versus small stones within the gallbladder. 6. Large hiatus hernia, unchanged. Continue bowel regimen Symptomatic medications UTI: ruled out H/O frequent UTI UA shows positive leukocyte esterase/budding yeast Urine culture: Heather glabrata DC ciprofloxacin, Fluconazole Discussed with ID: treatment not required for Heather glabrata unless symptomatic No more Urinary symptoms Diarrhea: Resolved Check C. difficile and stool cultures if diarrhea reoccurs DC Cipro H/O PE/ Factor V Leiden INR subtherapeutic 1.3>>>2.4>>3.2>>3.9>>4.9>>4.4 DC Heparin ggt Hold Coumadin Monitor INR No active bleeding MYRTLE on CKD III Possibly secondary to dehydration/UTI Monitor renal function Hold Lasix for now Cr improving, encourage PO intake Cautious use of IVF given H/O CHF H/O Chronic diastolic CHF Lasix held secondary to MYRTLE monitor for volume overload given H/O flash pulmonary edema HTN: Stable continue current meds Hyperlipidemia: On statin Depression/Anxiety disorder: Continue Paxil As needed Ativan for anxiety disorder No acute issue COPD Respiratory status stable/no wheeze Continue as needed neb treatment Home inhalers On 3 L O2 at night chronically Chronic Lower Back Pain: Continue outpatient medication fentanyl patch bowel regimen PRN for constipation DVT Px: INR elevated On Coumadin-continue , Code Status: Full DNI only Disposition: Patient refuses rehab placement and prefers to be discharged home with HH Patient's Son would like to convince patient to go to rehab facility Social service consulted for discharge planning Medicine follow-up with Vital Signs: Date Time Temp Pulse Resp B/P (MAP) Pulse Ox O2 Delivery O2 Flow Rate FiO2 12/14/17 07:20 36.7 84 16 97/60 (72) 99 2.0 12/13/17 23:59 Nasal Cannula 2.0 12/13/17 23:50 36.7 97 16 115/70 (85) 97 2.0 12/13/17 19:52 86 105/65 (78) 12/13/17 16:00 Nasal Cannula 2.0 12/13/17 15:04 36.8 80 18 96/63 (74) 98 Room Air Lab Results: Results Past 24 Hours Test 12/14/17 06:00 Range/Units White Blood Count 9.86 4.8-10.8 K/uL Red Blood Count 3.30 4.2-5.4 M/uL Hemoglobin 9.5 12.0-16.0 g/dL Hematocrit 30.1 37-47 % Mean Corpuscular Volume 91.2 80-100 fL Mean Corpuscular Hemoglobin 28.8 25-34 pg Mean Corpuscular Hemoglobin Concent 31.6 32-36 g/dl Platelet Count 433 130-400 K/uL Mean Platelet Volume 9.1 7.4-10.4 fL Neutrophils (%) (Auto) 70.2 % Lymphocytes (%) (Auto) 14.0 % Monocytes (%) (Auto) 12.1 % Eosinophils (%) (Auto) 2.7 % Basophils (%) (Auto) 0.5 % Neutrophils # (Auto) 6.92 1.4-6.5 K/uL Lymphocytes # (Auto) 1.38 1.2-3.4 K/uL Monocytes # (Auto) 1.19 0.11-0.59 K/uL Eosinophils # (Auto) 0.27 0-0.5 K/uL Basophils # (Auto) 0.05 0-0.2 K/uL RDW Standard Deviation 51.5 36.4-46.3 fL RDW Coefficient of Variation 15.3 11.5-14.5 % Immature Granulocyte % (Auto) 0.5 % Immature Granulocyte # (Auto) 0.05 0.00-0.02 K/uL Prothrombin Time 45.7 9.0-12.0 SECONDS Prothromb Time International Ratio 4.5 0.9-1.1 Sodium Level 137 136-145 mmol/L Potassium Level 3.7 3.5-5.1 mmol/L Chloride Level 101 98-107 mmol/L Carbon Dioxide Level 27 21-32 mmol/L Anion Gap 9.0 3-11 mmol/L Blood Urea Nitrogen 31 7-18 mg/dl Creatinine 1.82 0.60-1.20 mg/dl Est Creatinine Clear Calc Drug Dose 18.9 ml/min Estimated GFR () 29.0 Estimated GFR (Non- 25.1 BUN/Creatinine Ratio 16.9 10-20 Random Glucose 100 70-99 mg/dl Calcium Level 9.4 8.5-10.1 mg/dl Magnesium Level 1.7 1.8-2.4 mg/dl Procalcitonin 3.31 0-0.5 ng/ml Microbiology Results 12/13/17 MRSA DNA Surveillance Screen - Final, Complete Specimen Positive for MRSA by DNA Probe
[2017-12-14] MEDS: DICLOFENAC SOD 1% GEL 100 GM TUBE EXT SCH ×2 (14:19→20:17)
[2017-12-14 15:04] VITALS: BP 110/72; PULSE 98; TEMP 36.8; O2SAT 95
[2017-12-14 15:27] VITALS: O2SAT 95
[2017-12-14] MEDS ORDERED: VANCOMYCIN IV 1,000 MG in SODIUM CHLORIDE 0.9% 250ML 250 ML IV SCH (16:00)
[2017-12-14] MEDS: ACETAMINOPHEN 325 MG TAB PO PRN (18:31)
[2017-12-14] MEDS: LORAZEPAM 0.5 MG TAB PO PRN (20:24)
[2017-12-14 23:00] VITALS: BP 99/62; PULSE 87; TEMP 37.2; O2SAT 96
[2017-12-15] MEDS ORDERED: VANCOMYCIN TROUGH ONE ×2 (05:30→21:30)
[2017-12-15 05:52] LABS: INR 3.4 (0.9-1.1)
[2017-12-15] MEDS ORDERED: VANCOMYCIN IV 1,000 MG in SODIUM CHLORIDE 0.9% 250ML 250 ML IV SCH (06:00)
[2017-12-15 06:03] LABS: CREATININE 1.87 mg/dl (0.60-1.20)
[2017-12-15 07:22] VITALS: BP 103/63; PULSE 81; TEMP 36.3; O2SAT 98
[2017-12-15] MEDS: FENTANYL 12 MCG/HR TDSY TD SCH (07:40)
[2017-12-15] MEDS: CHECK FENTANYL PATCH PLACEMENT SCH ×2 (07:40→15:54)
[2017-12-15] MEDS: PIPERACILL/TAZOBAC IV 3.375 GM in D5W 100ML IV SCH (07:46)
[2017-12-15] MEDS: OXYCODONE/ACETAMINOPHEN 5-325 TAB PO PRN ×3 (07:47→21:48)
[2017-12-15] MEDS: NYSTATIN SUSP 500,000 U/5 ML UDC PO SCH ×4 (07:48→20:22)
[2017-12-15] MEDS: DICLOFENAC SOD 1% GEL 100 GM TUBE EXT SCH ×3 (07:48→20:21)
[2017-12-15] MEDS: METOPROLOL SUCC 25MG EXT REL TAB PO SCH ×2 (07:51→20:21)
[2017-12-15] MEDS: GABAPENTIN 100 MG CAP PO SCH (07:52)
[2017-12-15] MEDS: PAROXETINE 20 MG TAB PO SCH (07:52)
[2017-12-15] MEDS: POTASSIUM CHLORIDE 10 MEQ TABCR PO SCH ×2 (07:52→20:23)
[2017-12-15] MEDS: LACTOBACILLUS ACIDOPHILUS (FLORANEX) TAB PO SCH ×3 (07:52→17:13)
[2017-12-15] MEDS: FENTANYL PATCH REMOVE & WASTE SCH (07:53)
[2017-12-15] MEDS: ASCORBIC ACID 500 MG TAB PO SCH (07:53)
[2017-12-15] MEDS: PANTOprazole SOD 40 MG TAB PO SCH ×2 (07:54→20:23)
[2017-12-15] MEDS: MULTIVITAMIN TAB PO SCH (07:55)
[2017-12-15] MEDS: MAGNESIUM OXIDE 400 MG TAB PO SCH (07:55)
[2017-12-15] MEDS: FERROUS SULFATE 325 MG TAB PO SCH ×2 (07:55→20:22)
[2017-12-15] MEDS ORDERED: DOXYCYCLINE HYCLATE 100 MG CAP PO ONE (11:15)
--- NOTE | 2017-12-15 11:16 | Progress Note ---
Internal Med Progress Note Date of Service: December 15, 2017. Provider Documentation: SUBJECTIVE: The patient was seen and examined in medical floor. She has multiple medical comorbid conditions as mentioned below. She was admitted with the generalized weakness and fever Secondary to UTI and now has pneumonia Complains to have some pain in the left shoulder and generally very weak Denies any other complaints Much better today Left shoulder pain is better Wants the pain med more frequently OBJECTIVE: Vital Signs-as noted below Exam: General-no distress at rest Eyes-normal ENT-normal Neck-supple Lungs-coarse crackles bilaterally at the bases, more on the right than the left Heart-regular Abdomen-soft, benign, no organomegaly, bowel sounds present Extremities-trace edema bilaterally Examination of the left shoulder did not show any swelling but movements were moderately painful in all directions Neuro-alert and awake Generally very weak and lethargic Lab data as noted below. ASSESSMENT & PLAN: HCAP: CT :suggestive of Right lung basal Opacity suggestive of Pneumonia Recurrent Fever Initial Blood culture: No growth Urine culture: Heather Repeat Blood culture: Pending Started on IV Vanco and Zosyn Day # 3 Elevated Procalcitonin Clinically better today Continue current antibiotic regimen for now Clinically a lot better No Cough,Fever ,chills or elevation of WCC Will D/C Vanco and Zosyn Put her on Doxy for a total of 7 days Abdominal Pain: CT Abdomen and Pelvis::1. Patchy and nodular airspace opacities within the right lung base. This likely represents a pneumonia. Recommend follow-up chest CT in 2-3 months to ensure resolution. 2. No definite bowel wall thickening or obstruction. Questionable thickening at the hepatic flexure of the colon and proximal transverse colon is likely due to underdistention. 3. Mild fat stranding anterior to the bladder. This may be chronic or related to a cystitis. Recommend correlation with urinalysis. 4. Moderate stool within the colon. 5. Suggestion of sludge versus small stones within the gallbladder. 6. Large hiatus hernia, unchanged. Continue bowel regimen Symptomatic medications No More abdominal pain UTI: ruled out H/O frequent UTI UA shows positive leukocyte esterase/budding yeast Urine culture: Heather glabrata DC ciprofloxacin, Fluconazole Discussed with ID: treatment not required for Heather glabrata unless symptomatic No more Urinary symptoms Diarrhea: Resolved Check C. difficile and stool cultures if diarrhea reoccurs DC Cipro No more diarrhea H/O PE/ Factor V Leiden INR subtherapeutic 1.3>>>2.4>>3.2>>3.9>>4.9>>4.4 DC Heparin ggt Hold Coumadin Monitor INR No active bleeding MYRTLE on CKD III Possibly secondary to dehydration/UTI Monitor renal function Hold Lasix for now Cr improving, encourage PO intake Cautious use of IVF given H/O CHF Not any worse H/O Chronic diastolic CHF Lasix held secondary to MYRTLE monitor for volume overload given H/O flash pulmonary edema HTN: Stable continue current meds Hyperlipidemia: On statin Depression/Anxiety disorder: Continue Paxil As needed Ativan for anxiety disorder No acute issue COPD Respiratory status stable/no wheeze Continue as needed neb treatment Home inhalers On 3 L O2 at night chronically Chronic Lower Back Pain: Continue outpatient medication fentanyl patch bowel regimen PRN for constipation DVT Px: INR elevated On Coumadin-continue , INR-3.4 today Code Status: Full DNI only Disposition: Patient refuses rehab placement and prefers to be discharged home with HH Patient's Son would like to convince patient to go to rehab facility Social service consulted for discharge planning.Medicine follow-up with Wants to go home with her Son Vital Signs: Date Time Temp Pulse Resp B/P (MAP) Pulse Ox O2 Delivery O2 Flow Rate FiO2 12/15/17 08:00 Nasal Cannula 2.0 12/15/17 07:22 36.3 81 16 103/63 (76) 98 2.0 12/14/17 23:59 Nasal Cannula 2.0 12/14/17 23:00 37.2 87 16 99/62 (74) 96 2.0 12/14/17 15:27 95 Nasal Cannula 2.0 12/14/17 15:04 36.8 98 16 110/72 (85) 95 2.0 12/14/17 15:00 Nasal Cannula 2.0 Lab Results: Results Past 24 Hours Test 12/15/17 05:27 Range/Units Prothrombin Time 35.1 9.0-12.0 SECONDS Prothromb Time International Ratio 3.4 0.9-1.1 Creatinine 1.87 0.60-1.20 mg/dl Est Creatinine Clear Calc Drug Dose 18.4 ml/min Estimated GFR () 28.1 Estimated GFR (Non- 24.3 Vancomycin Level Trough 7.9 SEE COMMENT mcg/ml
[2017-12-15 11:38] VITALS: PULSE 80; O2SAT 99
[2017-12-15 15:18] VITALS: BP 106/70; PULSE 83; TEMP 36.3; O2SAT 100
[2017-12-15 16:00] VITALS: O2SAT 100
[2017-12-15] MEDS: LORAZEPAM 0.5 MG TAB PO PRN (20:20)
[2017-12-15] MEDS: ACETAMINOPHEN 325 MG TAB PO PRN (20:20)
[2017-12-15] MEDS: DOXYCYCLINE HYCLATE 100 MG CAP PO SCH (20:22)
[2017-12-15 23:06] VITALS: BP 106/69; PULSE 88; TEMP 36.6; O2SAT 100
[2017-12-15 23:59] VITALS: O2SAT 100
[2017-12-16] MEDS: CHECK FENTANYL PATCH PLACEMENT SCH ×3 (00:15→15:54)
[2017-12-16] MEDS ORDERED: VANCOMYCIN TROUGH ONE (05:30)
[2017-12-16 07:13] VITALS: BP 103/64; PULSE 78; TEMP 36.3; O2SAT 100
[2017-12-16 08:00] VITALS: O2SAT 100
[2017-12-16 08:06] LABS: CREATININE 1.59 mg/dl (0.60-1.20)
[2017-12-16] MEDS: DICLOFENAC SOD 1% GEL 100 GM TUBE EXT SCH ×2 (09:27→12:46)
[2017-12-16] MEDS: LACTOBACILLUS ACIDOPHILUS (FLORANEX) TAB PO SCH ×3 (09:28→17:00)
[2017-12-16] MEDS: POTASSIUM CHLORIDE 10 MEQ TABCR PO SCH (09:29)
[2017-12-16] MEDS: FERROUS SULFATE 325 MG TAB PO SCH (09:29)
[2017-12-16] MEDS: MAGNESIUM OXIDE 400 MG TAB PO SCH (09:29)
[2017-12-16] MEDS: GABAPENTIN 100 MG CAP PO SCH (09:29)
[2017-12-16] MEDS: PAROXETINE 20 MG TAB PO SCH (09:30)
[2017-12-16] MEDS: ASCORBIC ACID 500 MG TAB PO SCH (09:30)
[2017-12-16] MEDS: DOXYCYCLINE HYCLATE 100 MG CAP PO SCH (09:30)
[2017-12-16] MEDS: PANTOprazole SOD 40 MG TAB PO SCH (09:30)
[2017-12-16] MEDS: NYSTATIN SUSP 500,000 U/5 ML UDC PO SCH ×2 (09:31→12:46)
[2017-12-16] MEDS: METOPROLOL SUCC 25MG EXT REL TAB PO SCH (09:31)
[2017-12-16] MEDS: MULTIVITAMIN TAB PO SCH (09:31)
[2017-12-16] MEDS: OXYCODONE/ACETAMINOPHEN 5-325 TAB PO PRN (09:51)
--- NOTE | 2017-12-16 13:10 | Progress Note ---
Internal Med Progress Note Date of Service: December 16, 2017. Provider Documentation: SUBJECTIVE: The patient was seen and examined in medical floor. She has multiple medical comorbid conditions as mentioned below. She was admitted with the generalized weakness and fever Secondary to UTI and now has pneumonia Complains to have some pain in the left shoulder and generally very weak Denies any other complaints 12/16::seen in presence of the Son Much better today Left shoulder pain is better pain medications adjusted OBJECTIVE: Vital Signs-as noted below Exam: General-no distress at rest Eyes-normal ENT-normal Neck-supple Lungs-coarse crackles bilaterally at the bases, more on the right than the left Heart-regular Abdomen-soft, benign, no organomegaly, bowel sounds present Extremities-trace edema bilaterally Examination of the left shoulder did not show any swelling but movements were mildly painful in all directions Neuro-alert and awake Generally very weak and lethargic Lab data as noted below. ASSESSMENT & PLAN: HCAP: CT :suggestive of Right lung basal Opacity suggestive of Pneumonia Recurrent Fever Initial Blood culture: No growth Urine culture: Heather Repeat Blood culture: Pending Started on IV Vanco and Zosyn Day # 3 Elevated Procalcitonin Clinically better today Continue current antibiotic regimen for now Clinically a lot better No Cough,Fever ,chills or elevation of WCC Will D/C Vanco and Zosyn Put her on Doxy for a total of 7 days Abdominal Pain: CT Abdomen and Pelvis::1. Patchy and nodular airspace opacities within the right lung base. This likely represents a pneumonia. Recommend follow-up chest CT in 2-3 months to ensure resolution. 2. No definite bowel wall thickening or obstruction. Questionable thickening at the hepatic flexure of the colon and proximal transverse colon is likely due to underdistention. 3. Mild fat stranding anterior to the bladder. This may be chronic or related to a cystitis. Recommend correlation with urinalysis. 4. Moderate stool within the colon. 5. Suggestion of sludge versus small stones within the gallbladder. 6. Large hiatus hernia, unchanged. Continue bowel regimen Symptomatic medications No More abdominal pain UTI: ruled out H/O frequent UTI UA shows positive leukocyte esterase/budding yeast Urine culture: Heather glabrata DC ciprofloxacin, Fluconazole Discussed with ID: treatment not required for Heather glabrata unless symptomatic No more Urinary symptoms Diarrhea: Resolved Check C. difficile and stool cultures if diarrhea reoccurs DC Cipro No more diarrhea H/O PE/ Factor V Leiden INR subtherapeutic 1.3>>>2.4>>3.2>>3.9>>4.9>>4.4 DC Heparin ggt Hold Coumadin Monitor INR No active bleeding Resume Coumadin MYRTLE on CKD III Possibly secondary to dehydration/UTI Monitor renal function Hold Lasix for now Cr improving, encourage PO intake Cautious use of IVF given H/O CHF Remains stable H/O Chronic diastolic CHF Lasix held secondary to MYRTLE monitor for volume overload given H/O flash pulmonary edema HTN: Stable continue current meds Hyperlipidemia: On statin Depression/Anxiety disorder: Continue Paxil As needed Ativan for anxiety disorder No acute issue COPD Respiratory status stable/no wheeze Continue as needed neb treatment Home inhalers On 3 L O2 at night chronically Chronic Lower Back Pain: Continue outpatient medication fentanyl patch bowel regimen PRN for constipation DVT Px: INR elevated On Coumadin-continue , INR-therapeutic Code Status: Full DNI only Disposition: Patient refuses rehab placement and prefers to be discharged home with Patient's Son would like to convince patient to go to rehab facility Social service consulted for discharge planning.Medicine follow-up with Discussed with the son \Discharge home with N Vital Signs: Date Time Temp Pulse Resp B/P (MAP) Pulse Ox O2 Delivery O2 Flow Rate FiO2 12/16/17 08:00 100 Nasal Cannula 2.0 12/16/17 07:13 36.3 78 16 103/64 (77) 100 2.0 12/15/17 23:59 100 Nasal Cannula 2.0 12/15/17 23:06 36.6 88 18 106/69 (81) 100 Nasal Cannula 2.0 12/15/17 16:00 100 Nasal Cannula 2.0 12/15/17 15:18 36.3 83 16 106/70 (82) 100 Nasal Cannula 2.0 Lab Results: Results Past 24 Hours Test 12/16/17 06:58 Range/Units Creatinine 1.59 0.60-1.20 mg/dl Est Creatinine Clear Calc Drug Dose 21.9 ml/min Estimated GFR () 34.2 Estimated GFR (Non- 29.5
[2017-12-16 15:18] VITALS: BP 116/76; PULSE 87; TEMP 36.3; O2SAT 97
[2017-12-16 16:00] VITALS: O2SAT 97
[2017-12-16] MEDS ORDERED: VLTG EXT (16:03)
[2017-12-16] MEDS ORDERED: DXY100 PO (16:03)
--- NOTE | 2017-12-16 16:12 | Discharge Instructions ---
Discharge Instructions Date of Service December 16, 2017. Admission Reason for Admission: Fever,Dehydration,Uti Discharge Discharge Diagnosis / Problem: COPD,Chronic DHF,CKD,Anxiety,Back pain Discharge Goals Goal(s): Prevent Disease Progression Activity Recommendations Activity Limitations: resume your previous activity . Instructions / Follow-Up Instructions / Follow-Up Will call Paulo Inman on 12/21/17 at 10:45 AM. [facility] Notified Current Hospital Diet Patient's current hospital diet: AHA Diet (Heart Healthy) Discharge Diet Recommended Diet: AHA Diet (Heart Healthy) Fluid Restriction: 1500 ml (6 cups) Pending Studies Studies pending at discharge: no Medical Emergencies . Who to Call and When: Medical Emergencies: If at any time you feel your situation is an emergency, please call 911 immediately. . Non-Emergent Contact Non-Emergency issues call your: Primary Care Provider . Past History Medical & Surgical History: (1) PNA (pneumonia) (2) UTI (urinary tract infection) (3) Benign hypertension (4) History of pulmonary embolism (5) Aortic stenosis (6) GERD (gastroesophageal reflux disease) (7) Depression (8) CKD (chronic kidney disease) stage 3, GFR 30-59 ml/min (9) Hiatal hernia (10) Osteoporosis (11) Polyarthritis (12) Factor V deficiency (13) Recurrent UTI (14) Falls (15) Status post coronary artery stent placement (16) Status post hysterectomy (17) Status post cataract extraction (18) Hx of cystoscopy (19) S/P left knee arthroscopy (20) S/P TAVR (transcatheter aortic valve replacement) . "Provider Documentation" section prepared by Howie Magana. .
[2017-12-16 17:04] VITALS: BP 116/76; PULSE 87; TEMP 36.3; O2SAT 97
--- NOTE | 2017-12-17 08:34 | Discharge Summary ---
Discharge Summary Date of Service December 17, 2017. Discharge Summary Admission Date: December 06, 2017 at 14:52 Discharge Date: December 16, 2017 Discharge Disposition: Home with services Principal Diagnosis: COPD,Chronic DHF,CKD,Anxiety,Back pain Secondary Diagnoses/Problems: Please see H&P and Hospital progress note Medication Reconciliation New Medications: Diclofenac Sod (Voltaren) 100 Appln/100 Gm Gel 1 APPLN EXT TID for 30 Days, #1 TUBE Doxycycline Hyclate (Doxycycline Hyclate) 100 Mg Cap 100 MG PO BID for 5 Days, #10 CAP Continued Medications: Acetaminophen (Acetaminophen) 325 Mg Tab 650 MG PO PRN for Pain Albuterol Sulf (Proventil 0.083% 2.5MG/3ML) 2.5 Mg/3 Ml Nebu 2.5 MG INH QID PRN for SOB/Wheezing, EA Ascorbic Acid (Ascorbic Acid) 250 Mg Tab 250 MG PO DAILY Bisacodyl (Dulcolax) 10 Mg Sup 1 SUPP [place] DAILY PRN for Constipation, SUP Docusate Sodium (Colace) 100 Mg Cap 1 CAP PO BID PRN for Constipation for 15 Days, #30 CAP Fentanyl (Fentanyl) 12 Mcg Tdsy 12 MCG TD Q72H, #3 Ferrous Sulfate (Ferrous Sulfate) 325 Mg Tab 325 MG PO BID Fluticasone Furoate-Vilanterol (Breo Ellipta) 1 Inh Inh 1 PUFF INH DAILY Furosemide (Lasix) 40 Mg Tab 40 MG PO DAILY, TAB Take 40mg daily. Take extra 1/2 tab for fluid accumulation or weight gain. Gabapentin (Neurontin) 100 Mg Cap 100 MG PO DAILY Home O2 Therapy (Oxygen) Gas 3 LITERS NA UD 2 liters HS and PRN Lactobacillus Acidophilus (Floranex) 1 Tab Tab 1 TAB PO TIDM, #90 TAB Lorazepam (Lorazepam) 0.5 Mg Tab 0.5 MG PO HS PRN for Insomnia for 7 Days, #7 TAB Magnesium Hydroxide (Milk Of Magnesia) 30 Ml Susp 30 ML PO DAILY PRN for Constipation Magnesium Oxide (Mag-Ox) 400 Mg Tab 400 MG PO DAILY, TAB Metoprolol Succinate (Metoprolol Succinate ER) 25 Mg Tabcr 12.5 MG PO BID Multiple Vitamin (Multivitamin) 1 Tab Tab 0.5 TABLET PO DAILY for 30 Days take with supper Nystatin (Nystatin) 5 Ml Susp 5 ML PO QID for 10 Days Ondansetron Hcl (Zofran) 4 Mg Tab 4 MG PO Q6 PRN for Nausea, TAB Oxycodone/Acetaminophen 5MG/325MG (Percocet 5MG/325MG) Tab 1 TABLET PO Q8H PRN for Pain for 3 Days, #9 TAB Pantoprazole (Protonix) 40 Mg Tab 40 MG PO BID, #60 TAB Paroxetine (Paroxetine HCl) 40 Mg Tab 40 MG PO DAILY Polyethylene (Miralax) 17 Gm Pow 17 GM PO DAILY PRN for Constipation, #1 BTL Potassium Chloride (Potassium Chloride Er) 10 Meq Cap 10 MEQ PO BID for 90 Days, #180 CAP 1 Refill Senna (Senokot) 8.6 Mg Tab 1 TAB PO DAILY PRN for Constipation, TAB Sodium Phosphate/Biphosphate (Fleet Enema) Yadira 1 EA IL DAILY PRN for Constipation Warfarin Sod (Coumadin) 0.5 Mg Tab 1.5 MG PO DAILY for 30 Days, 1 Refill Discontinued Medications: Prednisone (Prednisone) 5 Mg Tab 15 MG PO UD, #30 TAB PREDNISONE 15MG PO DAILY X 3 DAYS THEN PREDNSIONE 10MG PO DAILY X 3 DAYS THEN PREDNSIONE 5MG PO DAILY HOME DOSE Admission Information HPI (per Admitting provider): This 82-year-old female with history of pulmonary embolism with chronic anticoagulation Coumadin/CKD stage III/hypertension/depression Was into to ER with complaint of diarrhea 3-4 loose bowel movement in a day for 2 days No complaint of nausea vomiting/no abdominal pain or discomfort Has chronic dark stools secondary to iron supplement No bright red blood per rectum Episode of fever yesterday and this morning No complaint of cough/shortness of breath Has chronic respiratory failure for COPD on 2 L oxygen at night Reports of burning sensation with urination/has chronic urinary frequency/ incontinence Past Medical/Surgical History Medical Problems: (1) Acute kidney injury (2) Ambulatory dysfunction (3) Anemia (4) Angiectasia (5) Anticoagulated on Coumadin (6) Anticoagulated on Coumadin (7) Aortic stenosis (8) Basal cell carcinoma (9) Benign hypertension (10) Bilateral pulmonary embolism (11) Bronchitis with bronchospasm (12) CAD (coronary artery disease) (13) Change in mental status (14) CHF due to valvular disease (15) CKD (chronic kidney disease) stage 3, GFR 30-59 ml/min (16) Contusion of left knee (17) Creatinine elevation (18) Dehydration (19) Dehydration (20) Dehydration (21) Dehydration (22) Depression (23) Diarrhea (24) Diverticulosis Colon (W/O Ment Of Hemorrhage) (25) Dyslipidemia (26) Dyspnea (27) Dyspnea (28) Elevated troponin (29) Factor V deficiency (30) Falls (31) Gastroparesis (32) GERD (gastroesophageal reflux disease) (33) GI bleed (34) GI bleed (35) Hiatal hernia (36) History of acute minda lesion (37) History of endometrial cancer (38) History of GI bleed (39) History of pulmonary embolism (40) Hypotension (41) IBS (irritable bowel syndrome) (42) Melena (43) Obstructive lung disease (44) Osteoporosis (45) PNA (pneumonia) (46) Pneumonia (47) Polyarthritis (48) Pulmonary embolism (49) Recurrent UTI (50) SBO (small bowel obstruction) (51) Sepsis due to urinary tract infection (52) Small bowel obstruction (53) Small bowel obstruction (54) SOB (shortness of breath) (55) SOB (shortness of breath) (56) Subtherapeutic international normalized ratio (INR) (57) Symptomatic anemia (58) Symptomatic anemia (59) Temporal arteritis (60) Upper GI bleed (61) Urinary tract infection (62) UTI (urinary tract infection) (63) Weakness (64) Weakness Surgical Problems: (1) Hx of cystoscopy (2) S/P left knee arthroscopy (3) S/P TAVR (transcatheter aortic valve replacement) (4) Status post cataract extraction (5) Status post coronary artery stent placement (6) Status post hysterectomy Family History Cancer Diabetes mellitus FH: cardiovascular disease MOTHER Gallbladder disease Hypertension Social History Smoking Status: Never Smoker Drug Use: none Marital Status: Housing status: lives alone Occupational Status: retired Immunizations History of Influenza Vaccine: Yes Influenza Vaccine Date: Apr 18, 2016 History of Tetanus Vaccine?: Yes Tetanus Immunization Date: Nov 27, 2008 History of Pneumococcal: Yes Pneumococcal Date: Apr 21, 2016 History of Hepatitis B Vaccine: Yes Multi-Drug Resistant Organisms History of MDRO: Yes Type of MDRO: MRSA Allergies Coded Allergies: Cefdinir (Verified Allergy, Mild, RASH-HAS HAD ROCEPHIN,CEFEPIME MANY TIMES, 12/06/17) Clonazepam (Verified Allergy, Unknown, ., 12/06/17) Levofloxacin (Verified Allergy, Unknown, unknown, 12/06/17) Sulfasalazine (Verified Allergy, Unknown, ., 12/06/17) Metoclopramide (Verified Adverse Reaction, Intermediate, TREMORS, 12/06/17) Home Medications Scheduled Ascorbic Acid (Ascorbic Acid), 250 MG PO DAILY Fentanyl (Fentanyl), 12 MCG TD Q72H Ferrous Sulfate (Ferrous Sulfate), 325 MG PO BID Fluticasone Furoate-Vilanterol (Breo Ellipta), 1 PUFF INH DAILY Furosemide (Lasix), 40 MG PO DAILY Gabapentin (Neurontin), 100 MG PO DAILY Home O2 Therapy (Oxygen), 3 LITERS NA UD Lactobacillus Acidophilus (Floranex), 1 TAB PO TIDM Magnesium Oxide (Mag-Ox), 400 MG PO DAILY Metoprolol Succinate (Metoprolol Succinate ER), 12.5 MG PO BID Multiple Vitamin (Multivitamin), 0.5 TABLET PO DAILY Nystatin (Nystatin), 5 ML PO QID Pantoprazole (Protonix), 40 MG PO BID Paroxetine (Paroxetine HCl), 40 MG PO DAILY Potassium Chloride (Potassium Chloride Er), 10 MEQ PO BID Prednisone (Prednisone), 15 MG PO UD Warfarin Sod (Coumadin), 1.5 MG PO DAILY Scheduled PRN Acetaminophen (Acetaminophen), 650 MG PO for Pain Albuterol Sulf (Proventil 0.083% 2.5MG/3ML), 2.5 MG INH QID PRN for SOB/Wheezing Bisacodyl (Dulcolax), 1 SUPP IL DAILY PRN for Constipation Docusate Sodium (Colace), 1 CAP PO BID PRN for Constipation Lorazepam (Lorazepam), 0.5 MG PO HS PRN for Insomnia Magnesium Hydroxide (Milk Of Magnesia), 30 ML PO DAILY PRN for Constipation Ondansetron Hcl (Zofran), 4 MG PO Q6 PRN for Nausea Oxycodone/Acetaminophen 5MG/325MG (Percocet 5MG/325MG), 1 TABLET PO Q8H PRN for Pain Polyethylene (Miralax), 17 GM PO DAILY PRN for Constipation Senna (Senokot), 1 TAB PO DAILY PRN for Constipation Sodium Phosphate/Biphosphate (Fleet Enema), 1 EA IL DAILY PRN for Constipation Review of Systems Constitutional: + fever, + chills, + fatigue Respiratory: + cough (Dry cough) Cardiovascular: No chest pain, No orthopnea, No PND, No edema, No claudication , No palpitations, No problem reported Abdomen: + diarrhea Musculoskeletal: + joint pain (Chronic back pain) Genitourinary - Female: + dysuria, + urinary frequency Neurologic: + weakness, + balance problems Psychiatric: + depression symptoms, + anxiety Endocrine: + fatigue Physical Ex - H&P Physical Exam Vital Signs Date Time Temp Pulse Resp B/P (MAP) Pulse Ox O2 Delivery O2 Flow Rate FiO2 12/06/17 14:15 93 23 132/69 96 Room Air 12/06/17 13:15 90 18 120/66 95 Room Air 12/06/17 12:46 96 Room Air 12/06/17 12:16 99 12/06/17 11:42 37.0 104 16 110/61 96 Room Air General Appearance: no apparent distress (Elderly female/anxious) Head: normocephalic, atraumatic Eyes: normal inspection, PERRL, EOMI, sclerae normal ENT: + pertinent finding (Healed dermatology/ incision scar on left nasal bridge for basal cell carcinoma) Neck: no carotid bruits, trachea midline Respiratory/Chest: no respiratory distress, + decreased breath sounds Cardiovascular: regular rate, rhythm, no edema, normal peripheral pulses Abdomen/GI: normal bowel sounds, non tender, soft Extremities/Musculoskelatal: no pedal edema Neurologic/Psych: no motor/sensory deficits, alert, oriented x 3, + depressed affect Skin: + pertinent finding (Recent basal cell carcinoma incision on left nasal bridge) Diagnostics - H&P Diagnostics Laboratory Results Results Past 24 Hours Test 12/06/17 12:55 12/06/17 12:56 12/06/17 13:40 Range/Units White Blood Count 12.88 4.8-10.8 K/uL Red Blood Count 3.50 4.2-5.4 M/uL Hemoglobin 10.4 12.0-16.0 g/dL Hematocrit 32.4 37-47 % Mean Corpuscular Volume 92.6 80-100 fL Mean Corpuscular Hemoglobin 29.7 25-34 pg Mean Corpuscular Hemoglobin Concent 32.1 32-36 g/dl Platelet Count 379 130-400 K/uL Mean Platelet Volume 9.2 7.4-10.4 fL Neutrophils (%) (Auto) 79.9 % Lymphocytes (%) (Auto) 9.1 % Monocytes (%) (Auto) 8.2 % Eosinophils (%) (Auto) 2.3 % Basophils (%) (Auto) 0.2 % Neutrophils # (Auto) 10.29 1.4-6.5 K/uL Lymphocytes # (Auto) 1.17 1.2-3.4 K/uL Monocytes # (Auto) 1.05 0.11-0.59 K/uL Eosinophils # (Auto) 0.30 0-0.5 K/uL Basophils # (Auto) 0.03 0-0.2 K/uL RDW Standard Deviation 51.9 36.4-46.3 fL RDW Coefficient of Variation 15.3 11.5-14.5 % Immature Granulocyte % (Auto) 0.3 % Immature Granulocyte # (Auto) 0.04 0.00-0.02 K/uL Prothrombin Time 13.7 9.0-12.0 SECONDS Prothromb Time International Ratio 1.3 0.9-1.1 Activated Partial Thromboplast Time 29.7 21.0-31.0 SECONDS Partial Thromboplastin Ratio 1.1 Sodium Level 138 136-145 mmol/L Potassium Level 3.9 3.5-5.1 mmol/L Chloride Level 103 98-107 mmol/L Carbon Dioxide Level 29 21-32 mmol/L Anion Gap 6.0 3-11 mmol/L Blood Urea Nitrogen 26 7-18 mg/dl Creatinine 1.42 0.60-1.20 mg/dl Est Creatinine Clear Calc Drug Dose 24.2 ml/min Estimated GFR () 39.2 Estimated GFR (Non- 33.8 BUN/Creatinine Ratio 18.4 10-20 Random Glucose 112 70-99 mg/dl Calcium Level 9.7 8.5-10.1 mg/dl Total Bilirubin 0.5 0.2-1 mg/dl Aspartate Amino Transf (AST/SGOT) 22 15-37 U/L Alanine Aminotransferase (ALT/SGPT) 23 12-78 U/L Alkaline Phosphatase 107 45-117 U/L Total Protein 7.0 6.4-8.2 gm/dl Albumin 2.7 3.4-5.0 gm/dl Globulin 4.3 2.5-4.0 gm/dl Albumin/Globulin Ratio 0.6 0.9-2 Bedside Lactic Acid Venous 1.61 0.90-1.70 mmol/L Urine Color YELLOW Urine Appearance CLEAR CLEAR Urine pH 6.0 4.5-7.5 Urine Specific Cecil 1.015 1.000-1.030 Urine Protein NEG NEG Urine Glucose (UA) NEG NEG Urine Ketones NEG NEG Urine Occult Blood NEG NEG Urine Nitrite NEG NEG Urine Bilirubin NEG NEG Urine Urobilinogen NEG NEG Urine Leukocyte Esterase MODERATE NEG Urine WBC (Auto) 10-30 0-5 /hpf Urine RBC (Auto) 0-4 0-4 /hpf Urine Hyaline Casts (Auto) 1-5 0-5 /lpf Urine Epithelial Cells (Auto) 5-10 0-5 /lpf Urine Bacteria (Auto) NEG NEG Urine Renal Epithelial Cells 0-5 /lpf Urine Yeast (Auto) BUDDING NONE PRSENT Microbiology Results 12/06/17 Blood Culture, Received Pending 12/06/17 Blood Culture, Received Pending 12/06/17 Urine Culture, Received Pending Diagnostic Radiology IMPRESSION: 1. Cardiomegaly with mild pulmonary vascular congestion and trace pleural effusions. 2. Subsegmental left basilar opacities appear unchanged favoring atelectasis with pneumonia also in the differential. The above report was generated using voice recognition software. It may contain grammatical, syntax or spelling errors. EKG Twelve-lead EKG Normal sinus rhythm Left axis deviation voltage criteria for left ventricular Nonspecific ST abnormality Impression - H&P Impression Assessment and Plan FEVER/GENERALIZED WEAKNESS: Possible secondary to urinary tract infection Denies of any respiratory symptom Order for blood culture/urine culture POSSIBLE URINARY TRACT UA shows positive leukocyte esterase/budding yeast Urine culture pending Empiric antibiotic with ciprofloxacin Added Diflucan DIARRHEA Since past 2 days No loose stool/diarrhea today Denies of any abdominal pain or cramps No nausea vomiting Appetite normal Order for stool for C. difficile HISTORY OF PE ON COUMADIN/FACTOR V LEIDEN INR subtherapeutic 1.3 Continue Coumadin dose increased to 3 mg daily Subcu heparin bridge for DVT prophylaxis until INR 2 AK I ON CKD STAGE III Possibly secondary to dehydration/UTI Baseline creatinine 1.2-1.3 Hold Lasix Given gentle hydration Avoid NSAIDs/contrast study HISTORY OF CHRONIC DIASTOLIC HEART FAILURE Patient appears to be dehydrated Hold Lasix IV fluids 50 mL/h 1 L only Repeat Lasix dose as soon as possible as dehydration/AK I is corrected Has recurrent history of acutely decompensation of diastolic heart failure/ flash pulmonary edema in past HYPERTENSION Pressure stable continue Lopressor HYPERLIPIDEMIA On statin DEPRESSION New SSRI for depression As needed Ativan for anxiety disorder HISTORY OF COPD Respiratory status stable/no wheeze or shortness of breath Continue as needed neb treatment Home inhalers On 3 L O2 at night chronically CHRONIC LOW BACK PAIN Continue outpatient medication fentanyl patch Hold bowel regimen as patient presents with diarrhea CODE STATUS: DO NOT INTUBATE/DNI DVT PROPHYLAXIS Coumadin/subcu heparin until INR therapeutic DISPOSITION PT OT evaluation prior to returning home Social service consulted for discharge planning Medicine follow-up with Level of Care Telemetry Resuscitation Status FULL NO MECH VENTILATION VTE Prophylaxis Risk Level: High Given or contraindicated: Unfractionated heparin SQ, Warfarin (Coumadin) Social Service Consult >80 yr.& Lives Alone Additional Copies To Myrna Inman M.D. Physical Exam (per Admitting): General Appearance: no apparent distress (Elderly female/anxious) Head: normocephalic, atraumatic Eyes: normal inspection, PERRL, EOMI, sclerae normal ENT: + pertinent finding (Healed dermatology/ incision scar on left nasal bridge for basal cell carcinoma) Neck: no carotid bruits, trachea midline Respiratory/Chest: no respiratory distress, + decreased breath sounds Cardiovascular: regular rate, rhythm, no edema, normal peripheral pulses Abdomen/GI: normal bowel sounds, non tender, soft Extremities/Musculoskelatal: no pedal edema Neurologic/Psych: no motor/sensory deficits, alert, oriented x 3, + depressed affect Skin: + pertinent finding (Recent basal cell carcinoma incision on left nasal bridge) Hospital Course HCAP: CT :suggestive of Right lung basal Opacity suggestive of Pneumonia Recurrent Fever Initial Blood culture: No growth Urine culture: Heather Repeat Blood culture: Pending Started on IV Vanco and Zosyn Day # 3 Elevated Procalcitonin Clinically better today Continue current antibiotic regimen for now Clinically a lot better No Cough,Fever ,chills or elevation of WCC Will D/C Vanco and Zosyn Put her on Doxy for a total of 7 days Abdominal Pain: CT Abdomen and Pelvis::1. Patchy and nodular airspace opacities within the right lung base. This likely represents a pneumonia. Recommend follow-up chest CT in 2-3 months to ensure resolution. 2. No definite bowel wall thickening or obstruction. Questionable thickening at the hepatic flexure of the colon and proximal transverse colon is likely due to underdistention. 3. Mild fat stranding anterior to the bladder. This may be chronic or related to a cystitis. Recommend correlation with urinalysis. 4. Moderate stool within the colon. 5. Suggestion of sludge versus small stones within the gallbladder. 6. Large hiatus hernia, unchanged. Continue bowel regimen Symptomatic medications No More abdominal pain UTI: ruled out H/O frequent UTI UA shows positive leukocyte esterase/budding yeast Urine culture: Heather glabrata DC ciprofloxacin, Fluconazole Discussed with ID: treatment not required for Heather glabrata unless symptomatic No more Urinary symptoms Diarrhea: Resolved Check C. difficile and stool cultures if diarrhea reoccurs DC Cipro No more diarrhea H/O PE/ Factor V Leiden INR subtherapeutic 1.3>>>2.4>>3.2>>3.9>>4.9>>4.4 DC Heparin ggt Hold Coumadin Monitor INR No active bleeding Resume Coumadin MYRTLE on CKD III Possibly secondary to dehydration/UTI Monitor renal function Hold Lasix for now Cr improving, encourage PO intake Cautious use of IVF given H/O CHF Remains stable H/O Chronic diastolic CHF Lasix held secondary to MYRTLE monitor for volume overload given H/O flash pulmonary edema HTN: Stable continue current meds Hyperlipidemia: On statin Depression/Anxiety disorder: Continue Paxil As needed Ativan for anxiety disorder No acute issue COPD Respiratory status stable/no wheeze Continue as needed neb treatment Home inhalers On 3 L O2 at night chronically Chronic Lower Back Pain: Continue outpatient medication fentanyl patch bowel regimen PRN for constipation DVT Px: INR elevated On Coumadin-continue , INR-therapeutic Code Status: Full DNI only Disposition: Patient refuses rehab placement and prefers to be discharged home with HH Patient's Son would like to convince patient to go to rehab facility Social service consulted for discharge planning.Medicine follow-up with Discussed with the son \\Discharge home with HHN Total time spent on discharge = 35 minutes This includes examination of the patient, discharge planning, medication reconciliation, and communication with other providers. Discharge Instructions Date of Service December 16, 2017. Admission Reason for Admission: Fever,Dehydration,Uti Discharge Discharge Diagnosis / Problem: COPD,Chronic DHF,CKD,Anxiety,Back pain Discharge Goals Goal(s): Prevent Disease Progression Activity Recommendations Activity Limitations: resume your previous activity . Instructions / Follow-Up Instructions / Follow-Up Will call Paulo Inman on 12/21/17 at 10:45 AM. [facility] Notified Current Hospital Diet Patient's current hospital diet: AHA Diet (Heart Healthy) Discharge Diet Recommended Diet: AHA Diet (Heart Healthy) Fluid Restriction: 1500 ml (6 cups) Pending Studies Studies pending at discharge: no Medical Emergencies . Who to Call and When: Medical Emergencies: If at any time you feel your situation is an emergency, please call 911 immediately. . Non-Emergent Contact Non-Emergency issues call your: Primary Care Provider . Past History Medical & Surgical History: (1) PNA (pneumonia) (2) UTI (urinary tract infection) (3) Benign hypertension (4) History of pulmonary embolism (5) Aortic stenosis (6) GERD (gastroesophageal reflux disease) (7) Depression (8) CKD (chronic kidney disease) stage 3, GFR 30-59 ml/min (9) Hiatal hernia (10) Osteoporosis (11) Polyarthritis (12) Factor V deficiency (13) Recurrent UTI (14) Falls (15) Status post coronary artery stent placement (16) Status post hysterectomy (17) Status post cataract extraction (18) Hx of cystoscopy (19) S/P left knee arthroscopy (20) S/P TAVR (transcatheter aortic valve replacement) . "Provider Documentation" section prepared by Howie Magana. . <Electronically signed by Howie Magana M.D.> Signed: 12/16/17 [id number] Additional Copies To Myrna Inman M.D.
== END 2017-12-16 19:00 | disposition home or self-care (01) | DRG 194 ==
LOC: C.EDB 11:40 → C.2T 14:52 → ENRESERV 15:27 → C.MS4W 12-08 13:14
PROVIDERS: ADMIT Hospitalist; ATTEND Internal Medicine
DX: J18.9 Pneumonia, unspecified organism (principal); I13.0 Hypertensive heart and chronic kidney disease with heart failure and stage 1 through stage 4 chronic kidney disease, or unspecified chronic kidney disease; N39.0 Urinary tract infection, site not specified; D68.2 Hereditary deficiency of other clotting factors; N17.9 Acute kidney failure, unspecified; I50.32 Chronic diastolic (congestive) heart failure; J96.11 Chronic respiratory failure with hypoxia; R19.7 Diarrhea, unspecified; E78.5 Hyperlipidemia, unspecified; E86.0 Dehydration; M54.5 Low back pain; J44.9 Chronic obstructive pulmonary disease, unspecified; N18.3 Chronic kidney disease, stage 3 (moderate); Z83.3 Family history of diabetes mellitus; Z82.49 Family history of ischemic heart disease and other diseases of the circulatory system; Z88.1 Allergy status to other antibiotic agents; Z88.2 Allergy status to sulfonamides; Z88.8 Allergy status to other drugs, medicaments and biological substances; Z86.711 Personal history of pulmonary embolism; Z79.01 Long term (current) use of anticoagulants